=== PATIENT | female | born 1945 | race Caucasian/White ===

== ENCOUNTER 2016-10-29 02:41 | Inpatient (IN) | payer MEDICARE, OTHER ==
[~2016-10-29] VITALS: Ht 157.5 cm; Wt 56.8 kg
[2016-10-29] VITALS (7 sets, daily range): BP systolic 109–127; BP diastolic 59–78
[~2016-10-29 02:41] MED LIST: CITA20TA4; DESL5TAB5; MMT17NA; POTA99TA7
[2016-10-29] MEDS ORDERED: FOLI1TAB24 PO (02:48)
[2016-10-29] MEDS ORDERED: NITR100C10 PO (02:48)
[2016-10-29] MEDS ORDERED: WARF-47 PO (02:48)
[2016-10-29] MEDS ORDERED: PARO10TA3 PO (02:48)
[2016-10-29] MEDS ORDERED: SIMV20TA3 PO (02:48)
[2016-10-29] MEDS ORDERED: LISI10TA2 PO (02:48)
[2016-10-29] MEDS ORDERED: POTA20TA8 PO (02:48)
[2016-10-29] MEDS ORDERED: AMLO10TA2 PO (02:48)
[2016-10-29] MEDS ORDERED: CLOP75TA28 PO (02:48)
[2016-10-29] MEDS ORDERED: METO-352 PO (02:48)
[2016-10-29] MEDS ORDERED: MONT10TA24 PO (02:48)
[2016-10-29] MEDS ORDERED: RT-ALBUTEROL/IPRATROPIUM 3 ML (DUONEB) VIAL INH ONE (03:00)
[2016-10-29 03:01] LABS: BASOPHILS % (AUTO) 0 % (0-10); EOSINOPHILS # (AUTO) 0.3 10^3/uL (0.0-0.3); EOSINOPHILS % (AUTO) 3 % (0-10); LYMPHOCYTES # (AUTO) 1.3 X 10^3 (1.0-4.0); LYMPHOCYTES % (AUTO) 11 % (12-44); MEAN CORPUSCULAR HEMOGLOBIN 32 PG (25-34); MEAN CORPUSCULAR HGB CONC 34 G/DL (32-36); MEAN CORPUSCULAR VOLUME 95 FL (80-99); MEAN PLATELET VOLUME 10.9 FL (7.4-10.4); MONOCYTES # (AUTO) 0.5 X 10^3 (0.0-1.0); MONOCYTES % (AUTO) 5 % (0-12); NEUTROPHILS # (AUTO) 9.9 X 10^3 (1.8-7.8); NEUTROPHILS % (AUTO) 82 % (42-75); PLATELET COUNT 176 10^3/uL (130-400); RED BLOOD COUNT 4.77 10^6/uL (4.35-5.85); RED CELL DISTRIBUTION WIDTH 13.1 % (10.0-14.5); WHITE BLOOD COUNT 12.1 10^3/uL (4.3-11.0)
--- NOTE | 2016-10-29 03:01 | ED Respiratory ---
General Chief Complaint: Respiratory Problems Stated Complaint: SOA Nursing Triage Note: c/o increased SOA since 1800 on 10/28 Source: patient, EMS History of Present Illness Time seen by provider: 02:42 Initial Comments PT ARRIVES VIA EMS FROM HOME C/O SHORTNESS OF BREATH SINCE 1700 OR 1800 THIS EVENING HAS HAD FEVER OF 99 WITH SWEATS NO CHEST PAIN NO SWELLING PT HAS HAD A NON-PRODUCTIVE COUGH FOR 2-3 MONTHS PT HAS COPD, AND CONTINUES TO SMOKE 1 PPD, BUT DOES NOT HAVE HOME O2, INHALERS OR NEBULIZER DUO NEB IS IN PROGRESS BY EMS--PT STATES IT HAS HELPED HER BREATHING. O2 SAT 96% ON ROOM AIR FOR EMS PT STATES SHE HAS ALSO BEEN DX WITH UTI AND WAS STARTED ON MACROBID TODAY PCP: [facility] Allergies and Home Medications Allergies Coded Allergies: aspirin (Verified Allergy, Unknown, 09/09/05) codeine (Verified Allergy, Unknown, NO ALLERGY TO MORPHINE, 11/24/08) penicillin G (Verified Allergy, Unknown, 09/09/05) Uncoded Allergies: METALS (Allergy, Mild, RASHES, 05/22/06) Home Medications Amlodipine Besylate 10 Mg Tablet, #90 (Reported) Clopidogrel Bisulfate 75 Mg Tablet, #90 (Reported) Folic Acid 1 Mg Tablet, #30 (Reported) Lisinopril 10 Mg Tablet, #90 (Reported) Metoprolol Succinate 50 Mg Tab.er.24h, #90 (Reported) Montelukast Sodium 10 Mg Tablet, #30 (Reported) Nitrofurantoin Monohyd/M-Cryst 100 Mg Capsule, #14 (Reported) Paroxetine HCl 10 Mg Tablet, #90 (Reported) Potassium Chloride 20 Meq Tab.er.prt, #30 (Reported) Simvastatin 20 Mg Tablet, #180 (Reported) Warfarin Sodium 2 Mg Tablet, #30 (Reported) Constitutional: see HPI, diaphoresis, fever EENTM: nose congestion Respiratory: see HPI, cough, dyspnea on exertion, short of breath, wheezing Cardiovascular: no symptoms reported, No chest pain, No edema, No palpitations , No syncope, No vascular heart diseas Gastrointestinal: no symptoms reported, other (PT WITH PERMANENT COLOSTOMY) Genitourinary: no symptoms reported Musculoskeletal: no symptoms reported (PT HAS HAD RIGHT AKA) Skin: no symptoms reported Psychiatric/Neurological: No Symptoms Reported Hematologic/Lymphatic: No Symptoms Reported Immunological/Allergic: no symptoms reported Past Jnmuyig-Osrpfi-Lyvort Hx Patient Social History Alcohol Use: Denies Use Recreational Drug Use: No Smoking Status: Current Everyday Smoker (1 PPD) Type Used: Cigarettes Recent Foreign Travel: No Contact w/Someone Who Travel: No Recent Infectious Disease Expo: No Recent Hopitalizations: No Surgeries HX Surgeries: Yes (PT HAS HAD 4-5 ABDOMINAL SURGERIES RELATED TO PERFORATED COLON AND COLOSTOMY; MULTIPLE REVASCULARIZATION PROCEDURES ON RIGHT LEG--BYPASS ATTEMPTS, THROMBECTOMIES, AND NOW WITH RIGHT AKA. ) Surgeries: Abdominal, Appendectomy, Bowel Surgery, Vascular Surgery Respiratory Hx Respiratory Disorders: Yes Respiratory Disorders: Chronic Bronchitis, COPD Cardiovascular Hx Cardiac Disorders: Yes (SEVERE PVD--RIGHT AKA) Cardiac Disorders: High Cholesterol, Hypertension, Peripheral Vascular Neurological Hx Neurological Disorders: No Reproductive System Hx Reproductive Disorders: Yes (CERVICAL CANCER) Genitourinary Hx Genitourinary Disorders: Yes Genitourinary Disorders: Bladder Infection Gastrointestinal Hx Gastrointestinal Disorders: Yes (MULTIPLE SURGERIES FOR PERF. COLON AND COLOSTOMY) Musculoskeletal Hx Musculoskeletal Disorders: Yes (RIGHT AKA FOR SEVERE PVD) Musculoskeletal Disorders: Amputee Endocrine Hx Endocrine Disorders: No HEENT HX ENT Disorders: No Cancer Hx Cancer: Yes (CERVICAL CANCER 2003--S/P RADIATION IMPLANTS, CHEMO AND RADIATION) Cancer: Cervical Psychosocial Hx Psychiatric Problems: Yes Behavioral Health Disorders: Depression Integumentary HX Skin/Integumentary Disorder: No Blood Transfusions Hx Blood Disorders: No Physical Exam Vital Signs Vital Sign - Last 12Hours 10/29/16 02:43 Temp 98.0 Pulse 69 Resp 18 B/P (MAP) 136/61 Pulse Ox 95 O2 Delivery Room Air O2 Flow Rate 2.00 Capillary Refill : Less Than 3 Seconds General Appearance: WD/WN, no apparent distress, other (TALKS IN FULL SENTENCES ) HEENT: PERRL/EOMI Neck: normal inspection Respiratory: no respiratory distress, no accessory muscle use, rhonchi ( DIFFUSE RHONCHI BILATERALLY) Cardiovascular: regular rate, rhythm, no edema Gastrointestinal: non tender, soft, other (COLOSTOMY IN LEFT ABDOMEN) Extremities: no pedal edema, other (RIGHT AKA) Neurologic/Psychiatric: parts expediter II-XII nml as tested, no motor/sensory deficits, alert, normal mood/affect, oriented x 3 Skin: normal color, diaphoresis Focused Exam Lactic Acid Level Laboratory Tests Test 10/29/16 03:17 Lactic Acid Level 1.74 MMOL/L (0.50-2.00) Progress/Results/Core Measures Results/Orders Lab Results Laboratory Tests Test 10/29/16 02:47 10/29/16 03:17 Range/Units White Blood Count 12.1 H 4.3-11.0 10^3/uL Red Blood Count 4.77 4.35-5.85 10^6/uL Hemoglobin 15.4 11.5-16.0 G/DL Hematocrit 45 35-52 % Mean Corpuscular Volume 95 80-99 FL Mean Corpuscular Hemoglobin 32 25-34 PG Mean Corpuscular Hemoglobin Concent 34 32-36 G/DL Red Cell Distribution Width 13.1 10.0-14.5 % Platelet Count 176 130-400 10^3/uL Mean Platelet Volume 10.9 H 7.4-10.4 FL Neutrophils (%) (Auto) 82 H 42-75 % Lymphocytes (%) (Auto) 11 L 12-44 % Monocytes (%) (Auto) 5 0-12 % Eosinophils (%) (Auto) 3 0-10 % Basophils (%) (Auto) 0 0-10 % Neutrophils # (Auto) 9.9 H 1.8-7.8 X 10^3 Lymphocytes # (Auto) 1.3 1.0-4.0 X 10^3 Monocytes # (Auto) 0.5 0.0-1.0 X 10^3 Eosinophils # (Auto) 0.3 0.0-0.3 10^3/uL Basophils # (Auto) 0.0 0.0-0.1 10^3/uL Prothrombin Time 24.1 H 12.2-14.7 SEC INR Comment 2.2 H 0.8-1.4 Activated Partial Thromboplast Time 39 H 24-35 SEC Sodium Level 144 135-145 MMOL/L Potassium Level 3.4 L 3.6-5.0 MMOL/L Chloride Level 105 98-107 MMOL/L Carbon Dioxide Level 27 21-32 MMOL/L Anion Gap 12 5-14 MMOL/L Blood Urea Nitrogen 9 7-18 MG/DL Creatinine 1.02 0.60-1.30 MG/DL Estimat Glomerular Filtration Rate 54 BUN/Creatinine Ratio 9 0-20 Glucose Level 97 70-105 MG/DL Calcium Level 10.0 8.5-10.1 MG/DL Magnesium Level 1.5 L 1.8-2.4 MG/DL Total Bilirubin 0.9 0.1-1.0 MG/DL Aspartate Amino Transf (AST/SGOT) 24 5-34 U/L Alanine Aminotransferase (ALT/SGPT) 18 0-55 U/L Alkaline Phosphatase 68 40-136 U/L Total Creatine Kinase 72 29-168 U/L Creatine Kinase MB 1.6 <6.6 NG/ML Troponin I < 0.30 <0.30 NG/ML B-Type Natriuretic Peptide 111.9 H <100.0 PG/ML Total Protein 8.0 6.4-8.2 GM/DL Albumin 4.3 3.2-4.5 GM/DL Lactic Acid Level 1.74 0.50-2.00 MMOL/L My Orders Orders - ROBBIE GUARDADO DO Saline Lock/Iv-Start (10/29/16 02:54) Ekg Tracing (10/29/16 02:54) O2 (10/29/16 02:54) Monitor-Rhythm Ecg Trace Only (10/29/16 02:54) BNP (10/29/16 02:54) Cbc With Automated Diff (10/29/16 02:54) Comprehensive Metabolic Panel (10/29/16 02:54) Creatine Kinase (10/29/16 02:54) Creatine Kinase Mb (10/29/16 02:54) Magnesium (10/29/16 02:54) Protime With Inr (10/29/16 02:54) Partial Thromboplastin Time (10/29/16 02:54) Troponin I (10/29/16 02:54) Ua Culture If Indicated (10/29/16 02:54) Chest 1 View, Ap/Pa Only (10/29/16 02:54) Albuterol/Ipra Inhalation Soln (Duoneb I (10/29/16 03:00) Rt Request For Service (10/29/16 02:54) Svn Sm Volume Nebulizer Rt-Rfs (10/29/16 02:54) Lactic Acid Analyzer (10/29/16 03:14) Blood Culture (10/29/16 03:14) Ceftriaxone Injection (Rocephin Injectio (10/29/16 03:15) Methylprednisolone Sod Succ (Solu-Medrol (10/29/16 03:15) Medications Given in ED Current Medications Medications Dose Ordered Sig/Christiano Route Start Time Stop Time Status Last Admin Dose Admin Albuterol/ Ipratropium 3 ml ONCE ONCE INH 10/29/16 03:00 10/29/16 03:01 DC 10/29/16 02:58 3 ML Ceftriaxone Sodium 1000 mg/ Sodium Chloride 50 ml @ 100 mls/hr ONCE ONCE IV 10/29/16 03:15 10/29/16 03:44 DC 10/29/16 03:40 100 MLS/HR Methylprednisolone Sodium Succinate 125 mg ONCE ONCE IVP 10/29/16 03:15 10/29/16 03:16 DC 10/29/16 03:40 125 MG Vital Signs/I&O Vital Sign - Last 12Hours 10/29/16 10/29/16 10/29/16 02:43 02:43 02:59 Temp 98.0 Pulse 69 Resp 18 B/P (MAP) 136/61 Pulse Ox 95 94 O2 Delivery Room Air Nasal Cannula Nasal Cannula O2 Flow Rate 2.00 2.00 Blood Pressure Mean: 86 Progress Note : Progress Note O2 SATS 88-91% ON ROOM AIR AFTER EMS DUO NEB WAS COMPLETE--STARTED ON O2 AT 2L/ NC AND REPEAT NEB TREATMENT DONE. O2 SATS REMAINED IN MID 90'S FOR REMAINDER OF ER STAY UNEVENTFUL ER STAY ECG Initial ECG Impression Time: 02:50 Initial ECG Rate: 70 Initial ECG Rhythm: Normal Sinus Initial ECG Comparisson: Changed (AXIS CHANGE) Diagnostic Imaging Comments CXR--RLL INFILTRATE, PENDING RADIOLOGIST REVIEW Reviewed: Reviewed by Me Departure Communication Progress Notes [id number]--SPOKE WITH DR. SALAZAR, COVERING FOR [facility] [place] ACCEPTS PT FOR ADMIT Impression Impression: Primary Impression: Pneumonia Additional Impressions: Hypoxia COPD (chronic obstructive pulmonary disease) Disposition: ADMITTED INPATIENT Condition: Improved Decision to Admit Reason: Admit from ER (General) Decision to Admit/Date: Oct 29, 2016 Time/Decision to Admit Time: 03:20 ROBBIE GUARDADO DO Oct 29, 2016 03:01
[2016-10-29 03:06] LABS: INR 2.2 (0.8-1.4); PROTHROMBIN TIME PATIENT 24.1 SEC (12.2-14.7)
[2016-10-29] MEDS ORDERED: methylPREDNISolone 125 MG (Solu-MEDROL) VIAL IVP ONE (03:15)
[2016-10-29] MEDS ORDERED: cefTRIAXone INJECTION 1,000 MG in NS (IVPB) 50 ML IV ONE (03:15)
[2016-10-29 03:24] LABS: ALANINE AMINOTRANSFERASE 18 U/L (0-55); ALBUMIN 4.3 GM/DL (3.2-4.5); ANION GAP 12 MMOL/L (5-14); ASPARTATE AMINO TRANSFERASE 24 U/L (5-34); BILIRUBIN,TOTAL 0.9 MG/DL (0.1-1.0); BLOOD UREA NITROGEN 9 MG/DL (7-18); BUN/CREATININE RATIO 9 (0-20); CARBON DIOXIDE 27 MMOL/L (21-32); CHLORIDE 105 MMOL/L (98-107); CREATINE KINASE 72 U/L (29-168); CREATININE SERUM 1.02 MG/DL (0.60-1.30); GFR ESTIMATED 54; GLUCOSE 97 MG/DL (70-105); HEMOLYSIS 25 (-100-29); ICTERUS 0.5 (-100-1.9); LIPEMIA -2 (-100-49); MAGNESIUM 1.5 MG/DL (1.8-2.4); POTASSIUM 3.4 MMOL/L (3.6-5.0); SODIUM 144 MMOL/L (135-145)
[2016-10-29 03:31] LABS: TROPONIN I < 0.30 NG/ML (<0.30)
[2016-10-29 04:00] LABS: BILIRUBIN,URINE NEGATIVE (NEGATIVE); KETONES,URINE NEGATIVE (NEGATIVE); LEUKOCYTE ESTERASE ,URINE 1+ (NEGATIVE); NITRITE,URINE NEGATIVE (NEGATIVE); PH,URINE 6 (5-9); PROTEIN,URINE 2+ (NEGATIVE); UROBILINOGEN,URINE NORMAL (NORMAL)
[2016-10-29 04:14] LABS: SQUAMOUS EPITHELIAL CELL,UR 0-2 /HPF
[2016-10-29] MEDS ORDERED: AZITHROMYCIN INJECTION 500 MG in NS (IVPB) 250 ML IV ONE (04:21)
[2016-10-29] MEDS ORDERED: ACETAMINOPHEN 500 MG TAB (TYLENOL) PO PRN (04:30)
[2016-10-29] MEDS: MAGNESIUM 1 GM/D5W 100 ML IVPB IV SCH ×2 (05:01→05:02)
[2016-10-29 06:54] LABS: BASOPHILS % (AUTO) 0 % (0-10); EOSINOPHILS # (AUTO) 0.1 10^3/uL (0.0-0.3); EOSINOPHILS % (AUTO) 1 % (0-10); LYMPHOCYTES # (AUTO) 0.6 X 10^3 (1.0-4.0); LYMPHOCYTES % (AUTO) 4 % (12-44); MEAN CORPUSCULAR HEMOGLOBIN 32 PG (25-34); MEAN CORPUSCULAR HGB CONC 34 G/DL (32-36); MEAN CORPUSCULAR VOLUME 95 FL (80-99); MEAN PLATELET VOLUME 10.7 FL (7.4-10.4); MONOCYTES # (AUTO) 0.5 X 10^3 (0.0-1.0); MONOCYTES % (AUTO) 4 % (0-12); NEUTROPHILS # (AUTO) 12.6 X 10^3 (1.8-7.8); NEUTROPHILS % (AUTO) 92 % (42-75); PLATELET COUNT 165 10^3/uL (130-400); RED BLOOD COUNT 4.44 10^6/uL (4.35-5.85); RED CELL DISTRIBUTION WIDTH 12.9 % (10.0-14.5); WHITE BLOOD COUNT 13.8 10^3/uL (4.3-11.0)
[2016-10-29] MEDS: D5 1/2 NS 1000 ML IV SOLUTION 1,000 ML IV SCH ×3 (06:58→17:44)
[2016-10-29] MEDS ORDERED: RT-ALBUTEROL SULF 2.5 MG/3 ML PRE-MIX VIAL IH PRN (07:00)
[2016-10-29 07:09] LABS: ALBUMIN 3.8 GM/DL (3.2-4.5); BILIRUBIN,TOTAL 0.7 MG/DL (0.1-1.0); CALCIUM 9.4 MG/DL (8.5-10.1); CREATININE SERUM 0.95 MG/DL (0.60-1.30); ICTERUS 0.4 (-100-1.9); MAGNESIUM 2.4 MG/DL (1.8-2.4); POTASSIUM 3.2 MMOL/L (3.6-5.0); TOTAL PROTEIN 7.1 GM/DL (6.4-8.2)
--- NOTE | 2016-10-29 07:14 | History & Physicial (CHS) ---
HPI History of Present Illness: 71-year-old female presents to [facility] emergency department during the late evening of October 28, 2016 via EMS with shortness of breath. Patient admits the shortness of breath started about 5 or 6 p.m. on October 28. She has had fevers off and on with sweats. She apparently has had a nonproductive cough over the past several weeks. She does have COPD and does admit to smoking 1 pack per day. She denies any chest pain or swelling of the lower extremities. She informs me she has a resistant urinary tract infection bacteria and she was started on Macrobid today. She does seek care at [facility] and does see Heriberto Perez. Source: patient Exam Limitations: no limitations Date seen by provider: Oct 29, 2016 Time Seen by Provider: 06:40 Attending Physician Monika Salazar MD PCP Gemini Mclean DO Consult Date of Admission Oct 29, 2016 at 03:20 Home Medications Home Medications Reviewed patient Home Medication Reconciliation Form Allergies Coded Allergies: aspirin (Verified Allergy, Unknown, 09/09/05) codeine (Verified Allergy, Unknown, NO ALLERGY TO MORPHINE, 11/24/08) penicillin G (Verified Allergy, Unknown, 09/09/05) Uncoded Allergies: METALS (Allergy, Mild, RASHES, 05/22/06) [id number]-Bytniy Hx Patient Social History Employed/Student: retired Alcohol Use: Denies Use Recreational Drug Use: No Smoking Status: Current Everyday Smoker Type Used: Cigarettes Recent Foreign Travel: No Contact w/other who traveled: No Recent Hopitalizations: No Recent Infectious Disease Expo: No Physical Abuse Screen: No Sexual Abuse: No Immunizations Up To Date Date of Pneumonia Vaccine: Feb 06, 2012 Review of Systems (CHC) Date Seen by Provider: Oct 29, 2016 Time Seen by Provider: 06:40 Constitutional: see HPI Reviewed Test Results Reviewed Test Results Lab Laboratory Tests Test 10/29/16 02:47 10/29/16 03:17 10/29/16 03:40 10/29/16 06:45 Range/Units White Blood Count 12.1 H 13.8 H 4.3-11.0 10^3/uL Red Blood Count 4.77 4.44 4.35-5.85 10^6/uL Hemoglobin 15.4 14.3 11.5-16.0 G/DL Hematocrit 45 42 35-52 % Mean Corpuscular Volume 95 95 80-99 FL Mean Corpuscular Hemoglobin 32 32 25-34 PG Mean Corpuscular Hemoglobin Concent 34 34 32-36 G/DL Red Cell Distribution Width 13.1 12.9 10.0-14.5 % Platelet Count 176 165 130-400 10^3/uL Mean Platelet Volume 10.9 H 10.7 H 7.4-10.4 FL Neutrophils (%) (Auto) 82 H 92 H 42-75 % Lymphocytes (%) (Auto) 11 L 4 L 12-44 % Monocytes (%) (Auto) 5 4 0-12 % Eosinophils (%) (Auto) 3 1 0-10 % Basophils (%) (Auto) 0 0 0-10 % Neutrophils # (Auto) 9.9 H 12.6 H 1.8-7.8 X 10^3 Lymphocytes # (Auto) 1.3 0.6 L 1.0-4.0 X 10^3 Monocytes # (Auto) 0.5 0.5 0.0-1.0 X 10^3 Eosinophils # (Auto) 0.3 0.1 0.0-0.3 10^3/uL Basophils # (Auto) 0.0 0.0 0.0-0.1 10^3/uL Prothrombin Time 24.1 H 12.2-14.7 SEC INR Comment 2.2 H 0.8-1.4 Activated Partial Thromboplast Time 39 H 24-35 SEC Sodium Level 144 140 135-145 MMOL/L Potassium Level 3.4 L 3.2 L 3.6-5.0 MMOL/L Chloride Level 105 106 98-107 MMOL/L Carbon Dioxide Level 27 22 21-32 MMOL/L Anion Gap 12 12 5-14 MMOL/L Blood Urea Nitrogen 9 8 7-18 MG/DL Creatinine 1.02 0.95 0.60-1.30 MG/DL Estimat Glomerular Filtration Rate 54 58 BUN/Creatinine Ratio 9 8 0-20 Glucose Level 97 170 H 70-105 MG/DL Calcium Level 10.0 9.4 8.5-10.1 MG/DL Magnesium Level 1.5 L 2.4 1.8-2.4 MG/DL Total Bilirubin 0.9 0.7 0.1-1.0 MG/DL Aspartate Amino Transf (AST/SGOT) 24 19 5-34 U/L Alanine Aminotransferase (ALT/SGPT) 18 16 0-55 U/L Alkaline Phosphatase 68 60 40-136 U/L Total Creatine Kinase 72 29-168 U/L Creatine Kinase MB 1.6 <6.6 NG/ML Troponin I < 0.30 <0.30 NG/ML B-Type Natriuretic Peptide 111.9 H <100.0 PG/ML Total Protein 8.0 7.1 6.4-8.2 GM/DL Albumin 4.3 3.8 3.2-4.5 GM/DL Lactic Acid Level 1.74 0.50-2.00 MMOL/L Urine Color YELLOW Urine Clarity CLEAR Urine pH 6 5-9 Urine Specific [place] 1.010 L 1.016-1.022 Urine Protein 2+ H NEGATIVE Urine Glucose (UA) NEGATIVE NEGATIVE Urine Ketones NEGATIVE NEGATIVE Urine Nitrite NEGATIVE NEGATIVE Urine Bilirubin NEGATIVE NEGATIVE Urine Urobilinogen NORMAL NORMAL MG/DL Urine Leukocyte Esterase 1+ H NEGATIVE Urine RBC (Auto) 5+ H NEGATIVE Urine RBC 5-10 H /HPF Urine WBC 2-5 /HPF Urine Squamous Epithelial Cells 0-2 /HPF Urine Crystals NONE /LPF Urine Bacteria NEGATIVE /HPF Urine Casts NONE /LPF Urine Mucus NEGATIVE /LPF Urine Culture Indicated NO Physical Exam-(CHC) Physical Exam Vital Signs VS - Last 72 Hours, by Label 10/29/16 10/29/16 10/29/16 10/29/16 02:43 02:43 02:59 04:01 Temp 98.0 98.4 Pulse 69 73 Resp 18 15 B/P (MAP) 136/61 Pulse Ox 95 94 96 O2 Delivery Room Air Nasal Cannula Nasal Cannula Nasal Cannula O2 Flow Rate 2.00 2.00 2.00 10/29/16 10/29/16 10/29/16 04:14 04:14 07:00 Temp 99.4 Pulse 65 Resp 20 B/P (MAP) 127/78 Pulse Ox 95 95 O2 Delivery Nasal Cannula Nasal Cannula O2 Flow Rate 2.00 2.00 2.00 Capillary Refill : Less Than 3 Seconds General Appearance: mild distress (In the emergency department) Eyes: Bilateral Eye Normal Inspection HEENT: normal ENT inspection Neck: supple Respiratory: decreased breath sounds Cardiovascular: regular rate, rhythm Gastrointestinal: soft (With noted colostomy bag in place) Rectal: deferred Skin: normal color, warm/dry Assessment/Plan Assessment/Plan Admission Dx 1. Respiratory distress most likely secondary to right lower lobe infiltrate 2. Hypoxemia secondary to number 1 3. COPD 4. Hypomagnesemia 5. Colostomy due to complications of treatment cervical cancer Plan 1. Respiratory distress most likely secondary to right lower lobe infiltrate -Pending official x-ray report -Patient initiated on Zithromax intravenous as well as ceftriaxone 2. Hypoxemia secondary to number 1 -Oxygen support as needed by nasal cannula 3. COPD -Patient initiated on IV Solu-Medrol 125 mg every 6 hours in ED 4. Hypomagnesemia -Replacement 5. Colostomy due to complications of treatment cervical cancer Diagnosis/Problems: Clinical Quality Measures DVT/VTE Risk/Contraindication: Risk Factor Score Per Nursin RFS Level Per Nursing on Admit: 4+=Very High MONIKA SALAZAR MD Oct 29, 2016 07:14
--- NOTE | 2016-10-29 07:20 | Diagnostic Imaging Report ---
INDICATION: Wheezing Study compared to 08/15/2007 FINDINGS: Chronic air trapping and hyperexpansion of the lungs. New opacity in the right lung base medially is suspect for pneumonia. The upper lobes clear. IMPRESSION: Chronic air trapping and chronic upper limits heart size stable. However new medial right basilar opacity is suspicious for a developing pneumonia. Dictated by: Dictated on workstation # [id number]
[2016-10-29] MEDS ORDERED: KCL 20 MEQ TAB (K-DUR) PO NR (07:30)
[2016-10-29 07:33] LABS: BAND NEUTROPHILS 4 %; BASOPHILS % (MANUAL) 0 %; EOSINOPHILS % (MANUAL) 1 %; LYMPHOCYTES % (MANUAL) 6 %; NEUTROPHILS % (MANUAL) 87 %
[2016-10-29] MEDS: NICOTINE 14 MG (NICODERM) PATCH TD SCH (09:49)
[2016-10-29] MEDS: methylPREDNISolone 125 MG (Solu-MEDROL) VIAL IV SCH ×3 (09:49→20:29)
[2016-10-30] VITALS (7 sets, daily range): BP systolic 115–147; BP diastolic 65–72
[2016-10-30] MEDS: cefTRIAXone INJECTION 1,000 MG in NS (IVPB) 50 ML IV SCH (03:35)
[2016-10-30] MEDS: D5 1/2 NS 1000 ML IV SOLUTION 1,000 ML IV SCH ×2 (05:23→16:48)
[2016-10-30 06:27] LABS: BASOPHILS % (AUTO) 0 % (0-10); EOSINOPHILS % (AUTO) 0 % (0-10); LYMPHOCYTES # (AUTO) 0.9 X 10^3 (1.0-4.0); LYMPHOCYTES % (AUTO) 5 % (12-44); MEAN CORPUSCULAR HEMOGLOBIN 32 PG (25-34); MEAN CORPUSCULAR HGB CONC 33 G/DL (32-36); MEAN CORPUSCULAR VOLUME 96 FL (80-99); MONOCYTES # (AUTO) 0.4 X 10^3 (0.0-1.0); MONOCYTES % (AUTO) 2 % (0-12); NEUTROPHILS # (AUTO) 16.8 X 10^3 (1.8-7.8); NEUTROPHILS % (AUTO) 92 % (42-75); PLATELET COUNT 168 10^3/uL (130-400); RED BLOOD COUNT 3.87 10^6/uL (4.35-5.85); RED CELL DISTRIBUTION WIDTH 13.1 % (10.0-14.5); WHITE BLOOD COUNT 18.2 10^3/uL (4.3-11.0)
[2016-10-30 06:41] LABS: BAND NEUTROPHILS 3 %; BASOPHILS % (MANUAL) 0 %; EOSINOPHILS % (MANUAL) 0 %; LYMPHOCYTES % (MANUAL) 6 %; NEUTROPHILS % (MANUAL) 87 %; REACTIVE LYMPHOCYTES 2 %
[2016-10-30 06:52] LABS: ANION GAP 8 MMOL/L (5-14); BLOOD UREA NITROGEN 10 MG/DL (7-18); BUN/CREATININE RATIO 12 (0-20); CALCIUM 9.2 MG/DL (8.5-10.1); CARBON DIOXIDE 25 MMOL/L (21-32); CHLORIDE 109 MMOL/L (98-107); CREATININE SERUM 0.85 MG/DL (0.60-1.30); GFR ESTIMATED > 60; GLUCOSE 175 MG/DL (70-105); HEMOLYSIS 8 (-100-29); ICTERUS 0.1 (-100-1.9); LIPEMIA 4 (-100-49); POTASSIUM 3.2 MMOL/L (3.6-5.0); SODIUM 142 MMOL/L (135-145)
[2016-10-30] MEDS ORDERED: WARF1TAB6 PO (07:43)
--- NOTE | 2016-10-30 07:57 | Progress Note (SOAP) ---
Subjective Subjective/Events-last exam Patient was sleeping upon entering room this morning. After awakening she stated she felt fine. She has been still coughing. The cough appears to be breaking up. Review of Systems Date Seen by Provider: Oct 30, 2016 Time Seen by Provider: 07:30 Objective Exam Last Set of Vital Signs Vital Signs Date Time Temp Pulse Resp B/P (MAP) Pulse Ox O2 Delivery O2 Flow Rate FiO2 10/30/16 06:42 Nasal Cannula 2.00 10/30/16 04:00 96.9 58 18 115/65 95 Capillary Refill : Less Than 3 Seconds I&O Bad tableGeneral: No Acute Distress Neck: Supple Lungs: Other (Patient has distant lung sounds. She does have rhonchi as well) Heart: Regular Rate Abdomen: Soft Skin: No Rashes Results/Procedures Lab Laboratory Tests 10/30/16 06:07: White Blood Count 18.2H, Red Blood Count 3.87L, Hemoglobin 12.4, Hematocrit 37, Mean Corpuscular Volume 96, Mean Corpuscular Hemoglobin 32, Mean Corpuscular Hemoglobin Concent 33, Red Cell Distribution Width 13.1, Platelet Count 168, Mean Platelet Volume 11.0H, Neutrophils (%) (Auto) 92H, Lymphocytes (%) (Auto) 5L, Monocytes (%) (Auto) 2, Eosinophils (%) (Auto) 0, Basophils (%) (Auto) 0, Neutrophils # (Auto) 16.8H, Lymphocytes # (Auto) 0.9L, Monocytes # (Auto) 0.4, Eosinophils # (Auto) 0.0, Basophils # (Auto) 0.0, Neutrophils % (Manual) 87, Lymphocytes % (Manual) 6, Monocytes % (Manual) 2, Eosinophils % (Manual) 0, Basophils % (Manual) 0, Band Neutrophils 3, Reactive Lymphocytes 2, Toxic Granulation 1+, Blood Morphology Comment NORMAL, Sodium Level 142, Potassium Level 3.2L, Chloride Level 109H, Carbon Dioxide Level 25, Anion Gap 8, Blood Urea Nitrogen 10, Creatinine 0.85, Estimat Glomerular Filtration Rate > 60, BUN/ Creatinine Ratio 12, Glucose Level 175H, Calcium Level 9.2 Microbiology 10/29/16 Blood Culture - Preliminary, Resulted No growth Assessment/Plan Assessment/Plan Admission Dx 1. Respiratory distress most likely secondary to right lower lobe infiltrate 2. Hypoxemia secondary to number 1 3. COPD 4. Hypomagnesemia 5. Colostomy due to complications of treatment cervical cancer Plan 1. Respiratory distress most likely secondary to right lower lobe infiltrate -Pending official x-ray report -Patient initiated on Zithromax intravenous as well as ceftriaxone 10/30 chest x-ray officially read out as right basilar pneumonia -Day number 2 of Zithromax and ceftriaxone 2. Hypoxemia secondary to number 1 -Oxygen support as needed by nasal cannula 3. COPD -Patient initiated on IV Solu-Medrol 125 mg every 6 hours in ED 10/30 change Solu-Medrol to 80 mg every 6 hours 4. Hypomagnesemia -Replacement 5. Colostomy due to complications of treatment cervical cancer Diagnosis/Problems: Clinical Quality Measures DVT/VTE Risk/Contraindication: Risk Factor Score Per Nursin RFS Level Per Nursing on Admit: 4+=Very High MONIKA SALAZAR MD Oct 30, 2016 07:57
[2016-10-30] MEDS ORDERED: DOCUSATE SODIUM 100 MG (COLACE) CAP PO PRN (08:00)
[2016-10-30] MEDS ORDERED: SIMvastatin 20 MG (ZOCOR) TAB PO SCH (09:00)
[2016-10-30] MEDS ORDERED: PARoxetine 10 MG (PAXIL) TAB PO SCH (09:00)
[2016-10-30] MEDS: NICOTINE PATCH REMOVAL TP SCH (09:25)
[2016-10-30] MEDS: AZITHROMYCIN 250 MG TAB (ZITHROMAX) PO SCH (09:26)
[2016-10-30] MEDS: NICOTINE 14 MG (NICODERM) PATCH TD SCH (09:26)
[2016-10-30] MEDS: methylPREDNISolone 40 MG/ML (Solu-MEDROL) VIAL IV SCH ×2 (09:29→20:49)
[2016-10-30] MEDS: SIMvastatin 20 MG (ZOCOR) TAB PO SCH (13:37)
[2016-10-30] MEDS: PARoxetine 10 MG (PAXIL) TAB PO SCH (13:37)
[2016-10-30] MEDS: KCL 20 MEQ TAB (K-DUR) PO SCH (13:37)
[2016-10-30] MEDS: CLOPIDOGREL 75 MG (PLAVIX) TABLET PO SCH (20:49)
[2016-10-30] MEDS: warFARin 1 MG (COUMADIN) TAB PO SCH (20:49)
[2016-10-31] MEDS: cefTRIAXone INJECTION 1,000 MG in NS (IVPB) 50 ML IV SCH (03:06)
[2016-10-31 04:00] VITALS: BP 152/66
[2016-10-31] MEDS: D5 1/2 NS 1000 ML IV SOLUTION 1,000 ML IV SCH ×2 (05:23→18:20)
--- NOTE | 2016-10-31 07:39 | Progress Note (SOAP) ---
Subjective Subjective/Events-last exam Patient reports she is slowly getting better. Her cough is productive of phlegm. She denies any fever. She reports being able to get a deeper breath. Review of Systems Date Seen by Provider: Oct 31, 2016 Time Seen by Provider: 06:40 Objective Exam Last Set of Vital Signs Vital Signs Date Time Temp Pulse Resp B/P (MAP) Pulse Ox O2 Delivery O2 Flow Rate FiO2 10/31/16 07:34 Nasal Cannula 2.00 10/31/16 04:00 96.8 54 16 152/66 94 Capillary Refill : Less Than 3 Seconds I&O Intake and Output 10/31/16 00:00 Intake Total 2360 ml Output Total 1300 ml Balance 1060 ml Intake Oral 1310 ml IV Total 1050 ml Output Urine Total 1300 ml # Voids 5 # Bowel Movements 1 General: No Acute Distress Lungs: Other (Rhonchi scattered throughout) Heart: Regular Rate Abdomen: Soft Results/Procedures Lab Microbiology 10/29/16 Blood Culture - Preliminary, Resulted No growth Assessment/Plan Assessment/Plan Admission Dx 1. Respiratory distress most likely secondary to right lower lobe infiltrate 2. Hypoxemia secondary to number 1 3. COPD 4. Hypomagnesemia 5. Colostomy due to complications of treatment cervical cancer Plan 1. Respiratory distress most likely secondary to right lower lobe infiltrate -Pending official x-ray report -Patient initiated on Zithromax intravenous as well as ceftriaxone 10/30 chest x-ray officially read out as right basilar pneumonia -Day number 2 of Zithromax and ceftriaxone -10/31 Day number 3 Zithromax by mouth as well as IV ceftriaxone - 2. Hypoxemia secondary to number 1 -Oxygen support as needed by nasal cannula 10/31 weaned off oxygen as saturations improve 3. COPD -Patient initiated on IV Solu-Medrol 125 mg every 6 hours in ED 10/30 change Solu-Medrol to 80 mg every 6 hours 10/31 changed to by mouth prednisone 4. Hypomagnesemia -Replacement 5. Colostomy due to complications of treatment cervical cancer Diagnosis/Problems: Clinical Quality Measures DVT/VTE Risk/Contraindication: Risk Factor Score Per Nursin RFS Level Per Nursing on Admit: 4+=Very High MONIKA SALAZAR MD Oct 31, 2016 07:39
[2016-10-31] MEDS ORDERED: predniSONE 20 MG TAB PO NR (07:45)
[2016-10-31 08:00] VITALS: BP 134/60
[2016-10-31] MEDS: SIMvastatin 20 MG (ZOCOR) TAB PO SCH (08:17)
[2016-10-31] MEDS: KCL 20 MEQ TAB (K-DUR) PO SCH (08:17)
[2016-10-31] MEDS: AZITHROMYCIN 250 MG TAB (ZITHROMAX) PO SCH (08:17)
[2016-10-31] MEDS: PARoxetine 10 MG (PAXIL) TAB PO SCH (08:17)
[2016-10-31] MEDS: NICOTINE 14 MG (NICODERM) PATCH TD SCH (08:17)
[2016-10-31] MEDS: NICOTINE PATCH REMOVAL TP SCH (08:17)
[2016-10-31 12:00] VITALS: BP 153/67
[2016-10-31 15:50] VITALS: BP 147/67
--- OUTSIDE RECORDS SUMMARY | 2016-10-31 16:21 | XMS REPORT ---
Author Author ERIK SAMAYOA Organization [employer] Address Unknown Phone Unavailable Care Team Providers Care Addiction Therapist Name Role Phone ERIK SAMAYOA CP Unavailable Allergies No Known Allergies Problems Problem Type Condition Code Onset Dates Condition Status Problem Unspecified episodic mood disorder 296.90 Active Problem Unspecified site of ankle sprain and strain 845.00 Active Problem Pneumonia, organism unspecified 486 Active Assessment Anticoagulant long-term use Z79.01 Active Problem Edema 782.3 Active Problem Urinary tract infection, site not specified 599.0 Active Problem Actinic keratosis 702.0 Active Problem Lower limb amputation, unspecified level V49.70 Active Problem Insomnia, unspecified 780.52 Active Problem Unspecified vitamin D deficiency 268.9 Active Problem Benign neoplasm of skin, site unspecified 216.9 Active Medications No Known Medications Results No Known Results Summary Purpose [employer] Submission
--- OUTSIDE RECORDS SUMMARY | 2016-10-31 16:21 | XMS REPORT ---
Author Author ERIK SAMAYOA Organization [employer] Address Unknown Phone Unavailable Care Team Providers Care Program Writer Name Role Phone ERIK SAMAYOA CP Unavailable [...]
--- OUTSIDE RECORDS SUMMARY | 2016-10-31 16:21 | XMS REPORT ---
Author Author ERIK SAMAYOA Organization [employer] Address Unknown Phone Unavailable Care Team Providers Care Unindentured Apprentice Name Role Phone ERIK SAMAYOA CP Unavailable Allergies No Known Allergies Problems Problem Type Condition Code Onset Dates Condition Status Problem Unspecified episodic mood disorder 296.90 Active Problem Unspecified site of ankle sprain and strain 845.00 Active Problem Pneumonia, organism unspecified 486 Active Problem Edema 782.3 Active Problem Urinary tract infection, site not specified 599.0 Active Problem Actinic keratosis 702.0 Active Problem Lower limb amputation, unspecified level V49.70 Active Problem Insomnia, unspecified 780.52 Active Problem Unspecified vitamin D deficiency 268.9 Active Problem Benign neoplasm of skin, site unspecified 216.9 Active Medications Medication Code System Code Instructions Start Date End Date Status Dosage Coumadin [facility] [address]-26 1 MG Orally Once a day November 05, 2014 1 tablet Results No Known Results Summary Purpose [employer] Submission
--- OUTSIDE RECORDS SUMMARY | 2016-10-31 16:21 | XMS REPORT ---
Author Author ERIK SAMAYOA Organization [employer] Address Unknown Phone Unavailable Care Team Providers Care Criminal Justice Instructor Name Role Phone ERIK SAMAYOA CP Unavailable [...]
--- OUTSIDE RECORDS SUMMARY | 2016-10-31 16:21 | XMS REPORT ---
Author Author REIK SAMAYOA Organization [employer] Address Unknown Phone Unavailable Care Team Providers Care Stucco Worker Name Role Phone ERIK SAMAYOA CP Unavailable [...]
--- OUTSIDE RECORDS SUMMARY | 2016-10-31 16:21 | XMS REPORT ---
Author Author ERIK SAMAYOA Organization [employer] Address Unknown Phone Unavailable Care Team Providers Care Category Specialist Name Role Phone ERIK SAMAYOA CP Unavailable [...]
--- OUTSIDE RECORDS SUMMARY | 2016-10-31 16:21 | XMS REPORT ---
Author Author ERIK SAMAYOA Organization [employer] Address Unknown Phone Unavailable Care Team Providers Care Railroad Auditor Name Role Phone ERIK SAMAYOA CP Unavailable [...] unspecified 216.9 Active Medications No Known Medications Procedures Procedure Coding System Code Date PROTHROMBIN TIME CPT-4 19198 Mar 27, 2015 Results Name Result Date Reference Range Unit Abnormality Flag INR (IN HOUSE) Summary Purpose [employer] Submission
--- OUTSIDE RECORDS SUMMARY | 2016-10-31 16:21 | XMS REPORT ---
Author Author ERIK SAMAYOA Organization [employer] Address Unknown Phone Unavailable Care Team Providers Care Engine Hostler Name Role Phone ERIK SAMAYOA CP Unavailable [...] Coding System Code Date PROTHROMBIN TIME CPT-4 63651 Jun 01, 2015 Results Name Result Date Reference Range Unit Abnormality Flag INR (IN HOUSE) ----Exp date 20150601 ----INR 2.8 20150601 1.10 - 3.30 ----PREVIOUS INR 3.7 20150601 ----CURRENT COUMADIN DOSE 1mg-M,W,F,S 2mg-T, Th, Sat 20150601 ----Lot # [id number] Summary Purpose [employer] Submission
--- OUTSIDE RECORDS SUMMARY | 2016-10-31 16:21 | XMS REPORT ---
Author Author ERIK SAMAYOA Organization [employer] Address Unknown Phone Unavailable Care Team Providers Care Retail Commission Sales Associate Name Role Phone ERIK SAMAYOA CP Unavailable Allergies No Known Allergies Problems Problem Type Condition Code Onset Dates Condition Status Problem Pneumonia, organism unspecified 486 Active Problem Insomnia, unspecified 780.52 Active Problem Unspecified site of ankle sprain and strain 845.00 Active Problem Unspecified episodic mood disorder 296.90 Active Problem Actinic keratosis 702.0 Active Problem Edema 782.3 Active Problem Anticoagulant long-term use Z79.01 Active Problem Benign neoplasm of skin, site unspecified 216.9 Active Problem Lower limb amputation, unspecified level V49.70 Active Problem Urinary tract infection, site not specified 599.0 Active Problem Unspecified vitamin D deficiency 268.9 Active Medications Medication Code System Code Instructions Start Date End Date Status Dosage Coumadin [facility] [address]-09 2 mg Orally Once a day 1 tablet Results No Known Results Summary Purpose [employer] Submission
--- OUTSIDE RECORDS SUMMARY | 2016-10-31 16:21 | XMS REPORT ---
Author Author ERIK SAMAYOA [facility] Address [address] [place] [address] Care Team Providers Care Laborer Chemical Processing Name Role Phone DANITA ERIK Unavailable PROBLEMS Type Condition ICD9-CM Code [id number] Code Onset Dates Condition Status SNOMED Code Problem Pneumonia, organism unspecified 486 Active 488954331 Problem Insomnia, unspecified 780.52 Active 781128670 Problem Unspecified site of ankle sprain and strain 845.00 Active 68666227 Problem Unspecified episodic mood disorder 296.90 Active 264872664 Problem Actinic keratosis 702.0 Active 576411660 Problem Edema 782.3 Active 03722649 Problem Benign neoplasm of skin, site unspecified 216.9 Active 50490033 Problem Lower limb amputation, unspecified level V49.70 Active 853060477 Problem Urinary tract infection, site not specified 599.0 Active 78687219 Problem Unspecified vitamin D deficiency 268.9 Active 64473569 ALLERGIES Unknown Allergies SOCIAL HISTORY No smoking Hx information available PLAN OF CARE VITAL SIGNS MEDICATIONS Medication Instructions Dosage Frequency Start Date End Date Duration Status Valium 2 MG Orally Once a day 1 tablet as needed 24h 10 Oct, 2014 Active RESULTS No Results PROCEDURES No Known procedures IMMUNIZATIONS No Known Immunizations
--- OUTSIDE RECORDS SUMMARY | 2016-10-31 16:21 | XMS REPORT ---
Author Author ERIK SAMAYOA Organization [employer] Address Unknown Phone Unavailable Care Team Providers Care Transmission Rebuilder Name Role Phone ERIK SAMAYOA CP Unavailable [...] Unspecified vitamin D deficiency 268.9 Active Medications No Known Medications Results No Known Results Summary Purpose [employer] Submission
--- OUTSIDE RECORDS SUMMARY | 2016-10-31 16:21 | XMS REPORT ---
Author Author ERIK SAMAYOA [facility] [employer] Address Unknown Phone Unavailable Care Team Providers Care Auto Body Service Mechanic Name Role Phone ERIK SAMAYOA CP Unavailable [...] Coding System Code Date PROTHROMBIN TIME CPT-4 53995 December 02, 2015 Results No Known Results Summary Purpose [employer] Submission
--- OUTSIDE RECORDS SUMMARY | 2016-10-31 16:23 | XMS REPORT | Continuity of Care Document ---
Author Author [facility] Address Unknown Phone Unavailable Allergies Active Description Code Type Severity Reaction Onset Reported/Identified Relationship to Patient Clinical Status Yes aspirin Drug Allergy N/A N/A 06/11/2008 Yes codeine Drug Allergy N/A N/A 06/11/2008 Yes morphine Drug Allergy N/A N/A 06/11/2008 Yes Penicillins Drug Allergy N/A N/A 06/11/2008 Yes aspirin Drug Allergy 06/11/2008 Yes codeine Drug Allergy 06/11/2008 Yes morphine Drug Allergy 06/11/2008 Yes Penicillins Drug Allergy 06/11/2008 Medications Problems Date Dx Coded Attending Type Code Diagnosis Diagnosed By 03/26/2008 ERIK SAMAOYA APRN 845.00 SPRAIN/STRAIN ANKLE 03/26/2008 845.00 SPRAIN/STRAIN ANKLE 03/26/2008 845.00 SPRAIN/STRAIN ANKLE 03/26/2008 845.00 SPRAIN/STRAIN ANKLE 03/26/2008 845.00 SPRAIN/STRAIN ANKLE 03/26/2008 ANJEL JORDAN DO 845.00 SPRAIN/STRAIN ANKLE 03/26/2008 845.00 SPRAIN/STRAIN ANKLE 03/26/2008 845.00 SPRAIN/STRAIN ANKLE 03/26/2008 845.00 SPRAIN/STRAIN ANKLE 03/26/2008 ERIK SAMAYOA APRN 845.00 SPRAIN/STRAIN ANKLE 03/26/2008 845.00 SPRAIN/STRAIN ANKLE 03/26/2008 845.00 SPRAIN/STRAIN ANKLE 03/26/2008 845.00 SPRAIN/STRAIN ANKLE 03/26/2008 845.00 SPRAIN/STRAIN ANKLE 03/26/2008 845.00 SPRAIN/STRAIN ANKLE 03/26/2008 845.00 SPRAIN/STRAIN ANKLE 03/26/2008 845.00 SPRAIN/STRAIN ANKLE 03/26/2008 RAFAEL CHRISTIANSON, ADELINE 845.00 SPRAIN/STRAIN ANKLE 03/26/2008 DANITA CARD DOFFER, ERIK T 845.00 SPRAIN/STRAIN ANKLE 03/26/2008 ERIK SAMAYOA APRN T 845.00 SPRAIN/STRAIN ANKLE 03/26/2008 ERIK SAMAYOA APRN T 845.00 SPRAIN/STRAIN ANKLE 03/26/2008 JORDAN DO, ANJEL K 845.00 SPRAIN/STRAIN ANKLE 03/26/2008 JORDAN DO, ANJEL K 845.00 SPRAIN/STRAIN ANKLE 03/26/2008 JORDAN DO, ANJEL K 845.00 SPRAIN/STRAIN ANKLE 03/26/2008 JORDAN DO, ANJEL K 845.00 SPRAIN/STRAIN ANKLE 03/26/2008 ERIK SAMAYOA APRN T 845.00 SPRAIN/STRAIN ANKLE 03/26/2008 ERIK SAMAYOA APRN T 845.00 SPRAIN/STRAIN ANKLE 03/26/2008 ERIK SAMAYOA APRN T 845.00 SPRAIN/STRAIN ANKLE 03/26/2008 ERIK SAMAYOA APRN T 845.00 SPRAIN/STRAIN ANKLE 03/26/2008 ERIK SAMAYOA APRN T 845.00 SPRAIN/STRAIN ANKLE 03/26/2008 ERIK SAMAYOA APRN T 845.00 SPRAIN/STRAIN ANKLE 04/16/2008 ERIK SAMAYOA APRN T 729.5 foot pain (soft tissue) 04/16/2008 729.5 foot pain (soft tissue) 04/16/2008 729.5 foot pain (soft tissue) 04/16/2008 729.5 foot pain (soft tissue) 04/16/2008 729.5 foot pain (soft tissue) 04/16/2008 JORDAN DO, ANJEL K 729.5 foot pain (soft tissue) 04/16/2008 729.5 foot pain (soft tissue) 04/16/2008 729.5 foot pain (soft tissue) 04/16/2008 729.5 foot pain (soft tissue) 04/16/2008 ERIK SAMAYOA APRN T 729.5 foot pain (soft tissue) 04/16/2008 729.5 foot pain (soft tissue) 04/16/2008 729.5 foot pain (soft tissue) 04/16/2008 729.5 foot pain (soft tissue) 04/16/2008 729.5 foot pain (soft tissue) 04/16/2008 729.5 foot pain (soft tissue) 04/16/2008 729.5 foot pain (soft tissue) 04/16/2008 729.5 foot pain (soft tissue) 04/16/2008 ADELINE HALL MD 729.5 foot pain (soft tissue) 04/16/2008 ERIK SAMAYOA APRN 729.5 foot pain (soft tissue) 04/16/2008 ERIK SAMAYOA APRN 729.5 foot pain (soft tissue) 04/16/2008 ERKI SAMAYOA APRN 729.5 foot pain (soft tissue) 04/16/2008 JORDAN DO, ANEJL K 729.5 foot pain (soft tissue) 04/16/2008 JORDAN DO, ANJEL K 729.5 foot pain (soft tissue) 04/16/2008 JORDAN DO, ANJEL K 729.5 foot pain (soft tissue) 04/16/2008 JORDAN DO, ANJEL K 729.5 foot pain (soft tissue) 04/16/2008 ERIK SAMAYOA APRN 729.5 foot pain (soft tissue) 04/16/2008 ERIK SAMAYOA APRN 729.5 foot pain (soft tissue) 04/16/2008 ERIK SAMAYOA APRN 729.5 foot pain (soft tissue) 04/16/2008 ERIK SAMAYOA APRN 729.5 foot pain (soft tissue) 04/16/2008 ERIK SAMAYOA APRN 729.5 foot pain (soft tissue) 04/16/2008 ERIK SAMAYOA APRN 729.5 foot pain (soft tissue) 05/05/2008 ERIK SAMAYOA APRN 401.1 HYPERTENSION, BENIGN ESSENTIAL 05/05/2008 ERIK SAMAYOA APRN 894.0 WOUND OPEN LOWER LIMB 05/05/2008 401.1 HYPERTENSION, BENIGN ESSENTIAL 05/05/2008 894.0 WOUND OPEN LOWER LIMB 05/05/2008 401.1 HYPERTENSION, BENIGN ESSENTIAL 05/05/2008 894.0 WOUND OPEN LOWER LIMB 05/05/2008 401.1 HYPERTENSION, BENIGN ESSENTIAL 05/05/2008 894.0 WOUND OPEN LOWER LIMB 05/05/2008 401.1 HYPERTENSION, BENIGN ESSENTIAL 05/05/2008 894.0 WOUND OPEN LOWER LIMB 05/05/2008 JORDAN DO, ANJEL K 401.1 HYPERTENSION, BENIGN ESSENTIAL 05/05/2008 JORDAN DO, ANJEL K 894.0 WOUND OPEN LOWER LIMB 05/05/2008 401.1 HYPERTENSION, BENIGN ESSENTIAL 05/05/2008 894.0 WOUND OPEN LOWER LIMB 05/05/2008 401.1 HYPERTENSION, BENIGN ESSENTIAL 05/05/2008 894.0 WOUND OPEN LOWER LIMB 05/05/2008 401.1 HYPERTENSION, BENIGN ESSENTIAL 05/05/2008 894.0 WOUND OPEN LOWER LIMB 05/05/2008 ERIK SAMAYOA APRN 401.1 HYPERTENSION, BENIGN ESSENTIAL 05/05/2008 ERIK SAMAYOA APRN 894.0 WOUND OPEN LOWER LIMB 05/05/2008 401.1 HYPERTENSION, BENIGN ESSENTIAL 05/05/2008 894.0 WOUND OPEN LOWER LIMB 05/05/2008 401.1 HYPERTENSION, BENIGN ESSENTIAL 05/05/2008 894.0 WOUND OPEN LOWER LIMB 05/05/2008 401.1 HYPERTENSION, BENIGN ESSENTIAL 05/05/2008 894.0 WOUND OPEN LOWER LIMB 05/05/2008 401.1 HYPERTENSION, BENIGN ESSENTIAL 05/05/2008 894.0 WOUND OPEN LOWER LIMB 05/05/2008 401.1 HYPERTENSION, BENIGN ESSENTIAL 05/05/2008 894.0 WOUND OPEN LOWER LIMB 05/05/2008 401.1 HYPERTENSION, BENIGN ESSENTIAL 05/05/2008 894.0 WOUND OPEN LOWER LIMB 05/05/2008 401.1 HYPERTENSION, BENIGN ESSENTIAL 05/05/2008 894.0 WOUND OPEN LOWER LIMB 05/05/2008 ADELINE HALL MD 401.1 HYPERTENSION, BENIGN ESSENTIAL 05/05/2008 ADELINE HALL MD 894.0 WOUND OPEN LOWER LIMB 05/05/2008 ERIK SAMAYOA APRN 401.1 HYPERTENSION, BENIGN ESSENTIAL 05/05/2008 ERIK SAMAYOA APRN 894.0 WOUND OPEN LOWER LIMB 05/05/2008 ERIK SAMAYOA APRN 401.1 HYPERTENSION, BENIGN ESSENTIAL 05/05/2008 ERIK SAMAYOA APRN 894.0 WOUND OPEN LOWER LIMB 05/05/2008 ERIK SAMAYOA APRN 401.1 HYPERTENSION, BENIGN ESSENTIAL 05/05/2008 ERIK SAMAYOA APRN 894.0 WOUND OPEN LOWER LIMB 05/05/2008 JORDAN DO, ANJEL K 401.1 HYPERTENSION, BENIGN ESSENTIAL 05/05/2008 JORDAN DO, ANJEL K 894.0 WOUND OPEN LOWER LIMB 05/05/2008 JORDAN DO, ANJEL K 401.1 HYPERTENSION, BENIGN ESSENTIAL 05/05/2008 JORDAN DO, ANJEL K 894.0 WOUND OPEN LOWER LIMB 05/05/2008 JORDAN DO, ANJEL K 401.1 HYPERTENSION, BENIGN ESSENTIAL 05/05/2008 JORDAN DO, ANJEL K 894.0 WOUND OPEN LOWER LIMB 05/05/2008 JORDAN DO, ANJEL K 401.1 HYPERTENSION, BENIGN ESSENTIAL 05/05/2008 JORDAN DO, ANJEL K 894.0 WOUND OPEN LOWER LIMB 05/05/2008 DANITA CARD DOFFER, ERIK T 401.1 HYPERTENSION, BENIGN ESSENTIAL 05/05/2008 DANITA CARD DOFFER, ERIK T 894.0 WOUND OPEN LOWER LIMB 05/05/2008 DANITA CARD DOFFER, ERIK T 401.1 HYPERTENSION, BENIGN ESSENTIAL 05/05/2008 DANITA CARD DOFFER, ERIK T 894.0 WOUND OPEN LOWER LIMB 05/05/2008 DANITA CARD DOFFER, ERIK T 401.1 HYPERTENSION, BENIGN ESSENTIAL 05/05/2008 DANITA CARD DOFFER, ERIK T 894.0 WOUND OPEN LOWER LIMB 05/05/2008 DANITA CARD DOFFER, ERIK T 401.1 HYPERTENSION, BENIGN ESSENTIAL 05/05/2008 DANITA CARD DOFFER, ERIK T 894.0 WOUND OPEN LOWER LIMB 05/05/2008 DANITA CARD DOFFER, ERIK T 401.1 HYPERTENSION, BENIGN ESSENTIAL 05/05/2008 DANITA CARD DOFFER, ERIK T 894.0 WOUND OPEN LOWER LIMB 05/05/2008 DANITA CARD DOFFER, ERIK T 401.1 HYPERTENSION, BENIGN ESSENTIAL 05/05/2008 DANITA CARD DOFFER, ERIK T 894.0 WOUND OPEN LOWER LIMB 05/07/2008 ERIK SAMAYOA APRN T V65.40 OTHER SPECIFIED COUNSELING 05/07/2008 V65.40 OTHER SPECIFIED COUNSELING 05/07/2008 V65.40 OTHER SPECIFIED COUNSELING 05/07/2008 V65.40 OTHER SPECIFIED COUNSELING 05/07/2008 V65.40 OTHER SPECIFIED COUNSELING 05/07/2008 NIKKI DO, ANJEL K V65.40 OTHER SPECIFIED COUNSELING 05/07/2008 V65.40 OTHER SPECIFIED COUNSELING 05/07/2008 V65.40 OTHER SPECIFIED COUNSELING 05/07/2008 V65.40 OTHER SPECIFIED COUNSELING 05/07/2008 ERIK SAMAYOA APRN V65.40 OTHER SPECIFIED COUNSELING 05/07/2008 V65.40 OTHER SPECIFIED COUNSELING 05/07/2008 V65.40 OTHER SPECIFIED COUNSELING 05/07/2008 V65.40 OTHER SPECIFIED COUNSELING 05/07/2008 V65.40 OTHER SPECIFIED COUNSELING 05/07/2008 V65.40 OTHER SPECIFIED COUNSELING 05/07/2008 V65.40 OTHER SPECIFIED COUNSELING 05/07/2008 V65.40 OTHER SPECIFIED COUNSELING 05/07/2008 ADELINE HALL MD V65.40 OTHER SPECIFIED COUNSELING 05/07/2008 ERIK SAMAYOA APRN V65.40 OTHER SPECIFIED COUNSELING 05/07/2008 ERIK SAMAYOA APRN V65.40 OTHER SPECIFIED COUNSELING 05/07/2008 ERIK SAMAYOA APRN V65.40 OTHER SPECIFIED COUNSELING 05/07/2008 JORDAN DO, ANJEL K V65.40 OTHER SPECIFIED COUNSELING 05/07/2008 JORDAN DO, ANJEL K V65.40 OTHER SPECIFIED COUNSELING 05/07/2008 JORDAN DO, ANJEL K V65.40 OTHER SPECIFIED COUNSELING 05/07/2008 JORDAN DO, ANJEL K V65.40 OTHER SPECIFIED COUNSELING 05/07/2008 ERIK SAMAYOA APRN V65.40 OTHER SPECIFIED COUNSELING 05/07/2008 ERIK SAMAYOA APRN V65.40 OTHER SPECIFIED COUNSELING 05/07/2008 ERIK SAMAYOA APRN V65.40 OTHER SPECIFIED COUNSELING 05/07/2008 ERIK SAMAYOA APRN V65.40 OTHER SPECIFIED COUNSELING 05/07/2008 ERIK SAMAYOA APRN V65.40 OTHER SPECIFIED COUNSELING 05/07/2008 ERIK SAMAYOA APRN V65.40 OTHER SPECIFIED COUNSELING 10/23/2008 ERIK SAMAYOA APRN 599.0 URINARY TRACT INFECTION 10/23/2008 ERIK SAMAYOA APRN 692.9 DERMATITIS 10/23/2008 599.0 URINARY TRACT INFECTION 10/23/2008 692.9 DERMATITIS 10/23/2008 599.0 URINARY TRACT INFECTION 10/23/2008 692.9 DERMATITIS 10/23/2008 599.0 URINARY TRACT INFECTION 10/23/2008 692.9 DERMATITIS 10/23/2008 599.0 URINARY TRACT INFECTION 10/23/2008 692.9 DERMATITIS 10/23/2008 JORDAN DO, ANJEL K 599.0 URINARY TRACT INFECTION 10/23/2008 JORDAN DO, ANJEL K 692.9 DERMATITIS 10/23/2008 599.0 URINARY TRACT INFECTION 10/23/2008 692.9 DERMATITIS 10/23/2008 599.0 URINARY TRACT INFECTION 10/23/2008 692.9 DERMATITIS 10/23/2008 599.0 URINARY TRACT INFECTION 10/23/2008 692.9 DERMATITIS 10/23/2008 ERIK SAMAYOA APRN 599.0 URINARY TRACT INFECTION 10/23/2008 ERIK SAMAYOA APRN 692.9 DERMATITIS 10/23/2008 599.0 URINARY TRACT INFECTION 10/23/2008 692.9 DERMATITIS 10/23/2008 599.0 URINARY TRACT INFECTION 10/23/2008 692.9 DERMATITIS 10/23/2008 599.0 URINARY TRACT INFECTION 10/23/2008 692.9 DERMATITIS 10/23/2008 599.0 URINARY TRACT INFECTION 10/23/2008 692.9 DERMATITIS 10/23/2008 599.0 URINARY TRACT INFECTION 10/23/2008 692.9 DERMATITIS 10/23/2008 599.0 URINARY TRACT INFECTION 10/23/2008 692.9 DERMATITIS 10/23/2008 599.0 URINARY TRACT INFECTION 10/23/2008 692.9 DERMATITIS 10/23/2008 ADELINE HALL MD 599.0 URINARY TRACT INFECTION 10/23/2008 ADELINE HALL MD 692.9 DERMATITIS 10/23/2008 ERIK SAMAYOA APRN 599.0 URINARY TRACT INFECTION 10/23/2008 ERIK SAMAYOA APRN 692.9 DERMATITIS 10/23/2008 ERIK SAMAYOA APRN 599.0 URINARY TRACT INFECTION 10/23/2008 ERIK SAMAYOA APRN 692.9 DERMATITIS 10/23/2008 ERIK SAMAYOA APRN 599.0 URINARY TRACT INFECTION 10/23/2008 ERIK SAMAYOA APRN 692.9 DERMATITIS 10/23/2008 JORDAN DO, ANJEL K 599.0 URINARY TRACT INFECTION 10/23/2008 JORDAN DO, ANJEL K 692.9 DERMATITIS 10/23/2008 JORDAN DO, ANJEL K 599.0 URINARY TRACT INFECTION 10/23/2008 JORDAN DO, ANJEL K 692.9 DERMATITIS 10/23/2008 JORDAN DO, ANJEL K 599.0 URINARY TRACT INFECTION 10/23/2008 JORDAN DO, ANJEL K 692.9 DERMATITIS 10/23/2008 JORDAN DO, ANJEL K 599.0 URINARY TRACT INFECTION 10/23/2008 JORDAN DO, ANJEL K 692.9 DERMATITIS 10/23/2008 ERIK SAMAYOA APRN 599.0 URINARY TRACT INFECTION 10/23/2008 ERIK SAMAYOA APRN 692.9 DERMATITIS 10/23/2008 DANITA CARD DOFFER, ERIK T 599.0 URINARY TRACT INFECTION 10/23/2008 DANITA VILLAFANAN, ERIK T 692.9 DERMATITIS 10/23/2008 DANITA VILLAFANAN, ERIK T 599.0 URINARY TRACT INFECTION 10/23/2008 DANITA VILLAFANAN, ERIK T 692.9 DERMATITIS 10/23/2008 DANITA CARD DOFFER, ERIK T 599.0 URINARY TRACT INFECTION 10/23/2008 DANITA VILLAFANAN, ERIK T 692.9 DERMATITIS 10/23/2008 DANITA VILLAFANAN, ERIK T 599.0 URINARY TRACT INFECTION 10/23/2008 DANITA VILLAFANAN, ERIK T 692.9 DERMATITIS 10/23/2008 DANITA VILLAFANAN, ERIK T 599.0 URINARY TRACT INFECTION 10/23/2008 DANITA CABRERA, ERIK T 692.9 DERMATITIS 11/01/2008 ERIK SAMAYOA APRN T 276.8 HYPOKALEMIA 11/01/2008 276.8 HYPOKALEMIA 11/01/2008 276.8 HYPOKALEMIA 11/01/2008 276.8 HYPOKALEMIA 11/01/2008 276.8 HYPOKALEMIA 11/01/2008 JORDAN DO, ANJEL K 276.8 HYPOKALEMIA 11/01/2008 276.8 HYPOKALEMIA 11/01/2008 276.8 HYPOKALEMIA 11/01/2008 276.8 HYPOKALEMIA 11/01/2008 ERIK SAMAYOA APRN T 276.8 HYPOKALEMIA 11/01/2008 276.8 HYPOKALEMIA 11/01/2008 276.8 HYPOKALEMIA 11/01/2008 276.8 HYPOKALEMIA 11/01/2008 276.8 HYPOKALEMIA 11/01/2008 276.8 HYPOKALEMIA 11/01/2008 276.8 HYPOKALEMIA 11/01/2008 276.8 HYPOKALEMIA 11/01/2008 ADELINE HALL MD 276.8 HYPOKALEMIA 11/01/2008 ERIK SAMAYOA APRN T 276.8 HYPOKALEMIA 11/01/2008 ERIK SAMAYOA APRN T 276.8 HYPOKALEMIA 11/01/2008 ERIK SAMAYOA APRN T 276.8 HYPOKALEMIA 11/01/2008 JORDAN DO, ANJEL K 276.8 HYPOKALEMIA 11/01/2008 JORDAN DO, ANJEL K 276.8 HYPOKALEMIA 11/01/2008 JORDAN DO, ANJEL K 276.8 HYPOKALEMIA 11/01/2008 NIKKI KLINE ANJEL K 276.8 HYPOKALEMIA 11/01/2008 ERIK SAMAYOA APRN T 276.8 HYPOKALEMIA 11/01/2008 ERIK SAMAYOA APRN T 276.8 HYPOKALEMIA 11/01/2008 ERIK SAMAYOA APRN T 276.8 HYPOKALEMIA 11/01/2008 ERIK SAMAYOA APRN T 276.8 HYPOKALEMIA 11/01/2008 ERIK SAMAYOA APRN T 276.8 HYPOKALEMIA 11/01/2008 ERIK SAMAYOA APRN T 276.8 HYPOKALEMIA 03/06/2009 ERIK SAMAYOA APRN 112.3 Candidiasis, Of Skin And Nails 03/06/2009 112.3 Candidiasis, Of Skin And Nails 03/06/2009 112.3 Candidiasis, Of Skin And Nails 03/06/2009 112.3 Candidiasis, Of Skin And Nails 03/06/2009 112.3 Candidiasis, Of Skin And Nails 03/06/2009 ANJEL JORDAN DO 112.3 Candidiasis, Of Skin And Nails 03/06/2009 112.3 Candidiasis, Of Skin And Nails 03/06/2009 112.3 Candidiasis, Of Skin And Nails 03/06/2009 112.3 Candidiasis, Of Skin And Nails 03/06/2009 ERIK SAMAYOA APRN 112.3 Candidiasis, Of Skin And Nails 03/06/2009 112.3 Candidiasis, Of Skin And Nails 03/06/2009 112.3 Candidiasis, Of Skin And Nails 03/06/2009 112.3 Candidiasis, Of Skin And Nails 03/06/2009 112.3 Candidiasis, Of Skin And Nails 03/06/2009 112.3 Candidiasis, Of Skin And Nails 03/06/2009 112.3 Candidiasis, Of Skin And Nails 03/06/2009 112.3 Candidiasis, Of Skin And Nails 03/06/2009 ADELINE HALL MD 112.3 Candidiasis, Of Skin And Nails 03/06/2009 ERIK SAMAYOA APRN 112.3 Candidiasis, Of Skin And Nails 03/06/2009 ERIK SAMAYOA APRN 112.3 Candidiasis, Of Skin And Nails 03/06/2009 ERIK SAMAYOA APRN 112.3 Candidiasis, Of Skin And Nails 03/06/2009 JORDAN DO, ANJEL K 112.3 Candidiasis, Of Skin And Nails 03/06/2009 JORDAN YI KLINEA K 112.3 Candidiasis, Of Skin And Nails 03/06/2009 YI JORDAN DOA K 112.3 Candidiasis, Of Skin And Nails 03/06/2009 YI JORDAN DOA K 112.3 Candidiasis, Of Skin And Nails 03/06/2009 ERIK SAMAYOA APRN 112.3 Candidiasis, Of Skin And Nails 03/06/2009 ERIK SAMAYOA APRN 112.3 Candidiasis, Of Skin And Nails 03/06/2009 ERIK SAMAYOA APRN 112.3 Candidiasis, Of Skin And Nails 03/06/2009 ERIK SAMAYOA APRN 112.3 Candidiasis, Of Skin And Nails 03/06/2009 ERIK SAMAYOA APRN 112.3 Candidiasis, Of Skin And Nails 03/06/2009 ERIK SAMAYOA APRN 112.3 Candidiasis, Of Skin And Nails 04/20/2009 ERIK SAMAYOA APRN 110.4 Tinea Pedis 04/20/2009 110.4 Tinea Pedis 04/20/2009 110.4 Tinea Pedis 04/20/2009 110.4 Tinea Pedis 04/20/2009 110.4 Tinea Pedis 04/20/2009 ANJEL JORDAN DO K 110.4 Tinea Pedis 04/20/2009 110.4 Tinea Pedis 04/20/2009 110.4 Tinea Pedis 04/20/2009 110.4 Tinea Pedis 04/20/2009 ERIK SAMAYOA APRN 110.4 Tinea Pedis 04/20/2009 110.4 Tinea Pedis 04/20/2009 110.4 Tinea Pedis 04/20/2009 110.4 Tinea Pedis 04/20/2009 110.4 Tinea Pedis 04/20/2009 110.4 Tinea Pedis 04/20/2009 110.4 Tinea Pedis 04/20/2009 110.4 Tinea Pedis 04/20/2009 ADELINE HALL MD 110.4 Tinea Pedis 04/20/2009 ERIK SAMAYOA APRN 110.4 Tinea Pedis 04/20/2009 ERIK SAMAYOA APRN 110.4 Tinea Pedis 04/20/2009 ERIK SAMAYOA APRN 110.4 Tinea Pedis 04/20/2009 JORDAN DO, ANEJL K 110.4 Tinea Pedis 04/20/2009 JORDAN DO, ANJEL K 110.4 Tinea Pedis 04/20/2009 JORDAN DO, ANJEL K 110.4 Tinea Pedis 04/20/2009 JORDAN DO, ANJEL K 110.4 Tinea Pedis 04/20/2009 DANITA CARD DOFFERERIK T 110.4 Tinea Pedis 04/20/2009 DANITA CARD DOFFERERIK T 110.4 Tinea Pedis 04/20/2009 DANITA VILLAFANANERIK T 110.4 Tinea Pedis 04/20/2009 DANITA CARD DOFFERERIK T 110.4 Tinea Pedis 04/20/2009 DANITA CARD DOFFERERIK T 110.4 Tinea Pedis 04/20/2009 DANITA CARD DOFFERERIK T 110.4 Tinea Pedis 05/22/2009 ERIK SAMAYOA APRN 682.9 CELLULITIS AND ABSCESS OF UNSPECIFIED SITES 05/22/2009 682.9 CELLULITIS AND ABSCESS OF UNSPECIFIED SITES 05/22/2009 682.9 CELLULITIS AND ABSCESS OF UNSPECIFIED SITES 05/22/2009 682.9 CELLULITIS AND ABSCESS OF UNSPECIFIED SITES 05/22/2009 682.9 CELLULITIS AND ABSCESS OF UNSPECIFIED SITES 05/22/2009 JORDAN DO, ANJEL K 682.9 CELLULITIS AND ABSCESS OF UNSPECIFIED SITES 05/22/2009 682.9 CELLULITIS AND ABSCESS OF UNSPECIFIED SITES 05/22/2009 682.9 CELLULITIS AND ABSCESS OF UNSPECIFIED SITES 05/22/2009 682.9 CELLULITIS AND ABSCESS OF UNSPECIFIED SITES 05/22/2009 ERIK SAMAYOA APRN 682.9 CELLULITIS AND ABSCESS OF UNSPECIFIED SITES 05/22/2009 682.9 CELLULITIS AND ABSCESS OF UNSPECIFIED SITES 05/22/2009 682.9 CELLULITIS AND ABSCESS OF UNSPECIFIED SITES 05/22/2009 682.9 CELLULITIS AND ABSCESS OF UNSPECIFIED SITES 05/22/2009 682.9 CELLULITIS AND ABSCESS OF UNSPECIFIED SITES 05/22/2009 682.9 CELLULITIS AND ABSCESS OF UNSPECIFIED SITES 05/22/2009 682.9 CELLULITIS AND ABSCESS OF UNSPECIFIED SITES 05/22/2009 682.9 CELLULITIS AND ABSCESS OF UNSPECIFIED SITES 05/22/2009 ADELINE HALL MD 682.9 CELLULITIS AND ABSCESS OF UNSPECIFIED SITES 05/22/2009 ERIK SAMAYOA APRN 682.9 CELLULITIS AND ABSCESS OF UNSPECIFIED SITES 05/22/2009 ERIK SAMAYOA APRN 682.9 CELLULITIS AND ABSCESS OF UNSPECIFIED SITES 05/22/2009 ERIK SAMAYOA APRN 682.9 CELLULITIS AND ABSCESS OF UNSPECIFIED SITES 05/22/2009 JORDAN DO, ANJEL K 682.9 CELLULITIS AND ABSCESS OF UNSPECIFIED SITES 05/22/2009 JORDAN DO, ANJEL K 682.9 CELLULITIS AND ABSCESS OF UNSPECIFIED SITES 05/22/2009 JORDAN DO, ANJEL K 682.9 CELLULITIS AND ABSCESS OF UNSPECIFIED SITES 05/22/2009 JORDAN DO, ANJEL K 682.9 CELLULITIS AND ABSCESS OF UNSPECIFIED SITES 05/22/2009 ERIK SAMAYOA APRN 682.9 CELLULITIS AND ABSCESS OF UNSPECIFIED SITES 05/22/2009 ERIK SAMAYOA APRN 682.9 CELLULITIS AND ABSCESS OF UNSPECIFIED SITES 05/22/2009 ERIK SAMAYOA APRN 682.9 CELLULITIS AND ABSCESS OF UNSPECIFIED SITES 05/22/2009 ERIK SAMAYOA APRN 682.9 CELLULITIS AND ABSCESS OF UNSPECIFIED SITES 05/22/2009 ERIK SAMAYOA APRN 682.9 CELLULITIS AND ABSCESS OF UNSPECIFIED SITES 05/22/2009 ERIK SAMAYOA APRN 682.9 CELLULITIS AND ABSCESS OF UNSPECIFIED SITES 08/26/2009 ERIK SAMAYOA APRN 443.9 INTERMITTENT CLAUDICATION 08/26/2009 443.9 INTERMITTENT CLAUDICATION 08/26/2009 443.9 INTERMITTENT CLAUDICATION 08/26/2009 443.9 INTERMITTENT CLAUDICATION 08/26/2009 443.9 INTERMITTENT CLAUDICATION 08/26/2009 YI JORDAN DOA K 443.9 INTERMITTENT CLAUDICATION 08/26/2009 443.9 INTERMITTENT CLAUDICATION 08/26/2009 443.9 INTERMITTENT CLAUDICATION 08/26/2009 443.9 INTERMITTENT CLAUDICATION 08/26/2009 ERIK SAMAYOA APRN 443.9 INTERMITTENT CLAUDICATION 08/26/2009 443.9 INTERMITTENT CLAUDICATION 08/26/2009 443.9 INTERMITTENT CLAUDICATION 08/26/2009 443.9 INTERMITTENT CLAUDICATION 08/26/2009 443.9 INTERMITTENT CLAUDICATION 08/26/2009 443.9 INTERMITTENT CLAUDICATION 08/26/2009 443.9 INTERMITTENT CLAUDICATION 08/26/2009 443.9 INTERMITTENT CLAUDICATION 08/26/2009 RAFAEL CHRISTIANSON, ADELINE 443.9 INTERMITTENT CLAUDICATION 08/26/2009 ERIK SAMAYOA APRN 443.9 INTERMITTENT CLAUDICATION 08/26/2009 ERIK SAMAYOA APRN T 443.9 INTERMITTENT CLAUDICATION 08/26/2009 ERIK SAMAYOA APRN T 443.9 INTERMITTENT CLAUDICATION 08/26/2009 JORDAN DO, ANJEL K 443.9 INTERMITTENT CLAUDICATION 08/26/2009 JORDAN DO, ANJEL K 443.9 INTERMITTENT CLAUDICATION 08/26/2009 JORDAN DO, ANJEL K 443.9 INTERMITTENT CLAUDICATION 08/26/2009 JORDAN DO, ANJEL K 443.9 INTERMITTENT CLAUDICATION 08/26/2009 ERIK SAMAYOA APRN T 443.9 INTERMITTENT CLAUDICATION 08/26/2009 ERIK SAMAYOA APRN T 443.9 INTERMITTENT CLAUDICATION 08/26/2009 ERIK SAMAYOA APRN 443.9 INTERMITTENT CLAUDICATION 08/26/2009 ERIK SAMAYOA APRN 443.9 INTERMITTENT CLAUDICATION 08/26/2009 ERIK SAMAYOA APRN 443.9 INTERMITTENT CLAUDICATION 08/26/2009 ERIK SAMAYOA APRN T 443.9 INTERMITTENT CLAUDICATION 12/18/2009 ERIK SAMAYOA APRN 272.4 HYPERLIPIDEMIA UNSPECIFIED 12/18/2009 ERIK SAMAYOA APRN 465.9 UPPER RESPIRATORY INFECTION 12/18/2009 272.4 HYPERLIPIDEMIA UNSPECIFIED 12/18/2009 465.9 UPPER RESPIRATORY INFECTION 12/18/2009 272.4 HYPERLIPIDEMIA UNSPECIFIED 12/18/2009 465.9 UPPER RESPIRATORY INFECTION 12/18/2009 272.4 HYPERLIPIDEMIA UNSPECIFIED 12/18/2009 465.9 UPPER RESPIRATORY INFECTION 12/18/2009 272.4 HYPERLIPIDEMIA UNSPECIFIED 12/18/2009 465.9 UPPER RESPIRATORY INFECTION 12/18/2009 JORDAN DO, ANJEL K 272.4 HYPERLIPIDEMIA UNSPECIFIED 12/18/2009 JORDAN DO, ANJEL K 465.9 UPPER RESPIRATORY INFECTION 12/18/2009 272.4 HYPERLIPIDEMIA UNSPECIFIED 12/18/2009 465.9 UPPER RESPIRATORY INFECTION 12/18/2009 272.4 HYPERLIPIDEMIA UNSPECIFIED 12/18/2009 465.9 UPPER RESPIRATORY INFECTION 12/18/2009 272.4 HYPERLIPIDEMIA UNSPECIFIED 12/18/2009 465.9 UPPER RESPIRATORY INFECTION 12/18/2009 ERIK SAMAYOA APRN 272.4 HYPERLIPIDEMIA UNSPECIFIED 12/18/2009 ERIK SAMAYOA APRN 465.9 UPPER RESPIRATORY INFECTION 12/18/2009 272.4 HYPERLIPIDEMIA UNSPECIFIED 12/18/2009 465.9 UPPER RESPIRATORY INFECTION 12/18/2009 272.4 HYPERLIPIDEMIA UNSPECIFIED 12/18/2009 465.9 UPPER RESPIRATORY INFECTION 12/18/2009 272.4 HYPERLIPIDEMIA UNSPECIFIED 12/18/2009 465.9 UPPER RESPIRATORY INFECTION 12/18/2009 272.4 HYPERLIPIDEMIA UNSPECIFIED 12/18/2009 465.9 UPPER RESPIRATORY INFECTION 12/18/2009 272.4 HYPERLIPIDEMIA UNSPECIFIED 12/18/2009 465.9 UPPER RESPIRATORY INFECTION 12/18/2009 272.4 HYPERLIPIDEMIA UNSPECIFIED 12/18/2009 465.9 UPPER RESPIRATORY INFECTION 12/18/2009 272.4 HYPERLIPIDEMIA UNSPECIFIED 12/18/2009 465.9 UPPER RESPIRATORY INFECTION 12/18/2009 ADELINE HALL MD 272.4 HYPERLIPIDEMIA UNSPECIFIED 12/18/2009 ADELINE HALL MD 465.9 UPPER RESPIRATORY INFECTION 12/18/2009 ERIK SAMAYOA APRN 272.4 HYPERLIPIDEMIA UNSPECIFIED 12/18/2009 ERIK SAMAYOA APRN 465.9 UPPER RESPIRATORY INFECTION 12/18/2009 ERIK SAMAYOA APRN 272.4 HYPERLIPIDEMIA UNSPECIFIED 12/18/2009 ERIK SAMAYOA APRN 465.9 UPPER RESPIRATORY INFECTION 12/18/2009 ERIK SAMAYOA APRN 272.4 HYPERLIPIDEMIA UNSPECIFIED 12/18/2009 ERIK SAMAYOA APRN 465.9 UPPER RESPIRATORY INFECTION 12/18/2009 JORDAN DO, ANJEL K 272.4 HYPERLIPIDEMIA UNSPECIFIED 12/18/2009 JORDAN DO, ANJEL K 465.9 UPPER RESPIRATORY INFECTION 12/18/2009 JORDAN DO, ANJEL K 272.4 HYPERLIPIDEMIA UNSPECIFIED 12/18/2009 JORDAN DO, ANJEL K 465.9 UPPER RESPIRATORY INFECTION 12/18/2009 JORDAN DO, ANJEL K 272.4 HYPERLIPIDEMIA UNSPECIFIED 12/18/2009 JORDAN DO, ANJEL K 465.9 UPPER RESPIRATORY INFECTION 12/18/2009 JORDAN DO, ANJEL K 272.4 HYPERLIPIDEMIA UNSPECIFIED 12/18/2009 JORDAN DO, ANJEL K 465.9 UPPER RESPIRATORY INFECTION 12/18/2009 ERIK SAMAYOA APRN 272.4 HYPERLIPIDEMIA UNSPECIFIED 12/18/2009 ERIK SAMAYOA APRN 465.9 UPPER RESPIRATORY INFECTION 12/18/2009 ERIK SAMAYOA APRN 272.4 HYPERLIPIDEMIA UNSPECIFIED 12/18/2009 ERIK SAMAYOA APRN T 465.9 UPPER RESPIRATORY INFECTION 12/18/2009 ERIK SAMAYOA APRN T 272.4 HYPERLIPIDEMIA UNSPECIFIED 12/18/2009 ERIK SAMAYOA APRN T 465.9 UPPER RESPIRATORY INFECTION 12/18/2009 ERIK SAMAYOA APRN T 272.4 HYPERLIPIDEMIA UNSPECIFIED 12/18/2009 ERIK SAMAYOA APRN T 465.9 UPPER RESPIRATORY INFECTION 12/18/2009 ERIK SAMAYOA APRN T 272.4 HYPERLIPIDEMIA UNSPECIFIED 12/18/2009 ERIK SAMAYOA APRN T 465.9 UPPER RESPIRATORY INFECTION 12/18/2009 ERIK SAMAYOA APRN T 272.4 HYPERLIPIDEMIA UNSPECIFIED 12/18/2009 ERIK SAMAYOA APRN T 465.9 UPPER RESPIRATORY INFECTION 09/29/2010 ERIK SAMAYOA APRN 357.9 NEUROPATHY UNSP 09/29/2010 ERIK SAMAYOA APRN 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 09/29/2010 357.9 NEUROPATHY UNSP 09/29/2010 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 09/29/2010 357.9 NEUROPATHY UNSP 09/29/2010 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 09/29/2010 357.9 NEUROPATHY UNSP 09/29/2010 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 09/29/2010 357.9 NEUROPATHY UNSP 09/29/2010 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 09/29/2010 ANJEL JORDAN DO 357.9 NEUROPATHY UNSP 09/29/2010 ANJEL JORDAN DO 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 09/29/2010 357.9 NEUROPATHY UNSP 09/29/2010 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 09/29/2010 357.9 NEUROPATHY UNSP 09/29/2010 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 09/29/2010 357.9 NEUROPATHY UNSP 09/29/2010 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 09/29/2010 ERIK SAMAYOA APRN 357.9 NEUROPATHY UNSP 09/29/2010 ERIK SAMAYOA APRN 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 09/29/2010 357.9 NEUROPATHY UNSP 09/29/2010 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 09/29/2010 357.9 NEUROPATHY UNSP 09/29/2010 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 09/29/2010 357.9 NEUROPATHY UNSP 09/29/2010 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 09/29/2010 357.9 NEUROPATHY UNSP 09/29/2010 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 09/29/2010 357.9 NEUROPATHY UNSP 09/29/2010 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 09/29/2010 357.9 NEUROPATHY UNSP 09/29/2010 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 09/29/2010 357.9 NEUROPATHY UNSP 09/29/2010 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 09/29/2010 ADELINE HALL MD 357.9 NEUROPATHY UNSP 09/29/2010 ADELINE HALL MD 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 09/29/2010 ERIK SAMAYOA APRN 357.9 NEUROPATHY UNSP 09/29/2010 ERIK SAMAYOA APRN 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 09/29/2010 ERIK SAMAYOA APRN 357.9 NEUROPATHY UNSP 09/29/2010 ERIK SAMAYOA APRN 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 09/29/2010 ERIK SAMAYOA APRN 357.9 NEUROPATHY UNSP 09/29/2010 ERIK SAMAYOA APRN 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 09/29/2010 JORDAN DO, ANJEL K 357.9 NEUROPATHY UNSP 09/29/2010 JORDAN DO, ANJEL K 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 09/29/2010 JORDAN DO, ANJEL K 357.9 NEUROPATHY UNSP 09/29/2010 JORDAN DO, ANJEL K 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 09/29/2010 JORDAN DO, ANJEL K 357.9 NEUROPATHY UNSP 09/29/2010 JORDAN DO, ANJEL K 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 09/29/2010 JORDAN DO, ANJEL K 357.9 NEUROPATHY UNSP 09/29/2010 JORDAN DO, ANJEL K 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 09/29/2010 ERIK SAMAYOA APRN 357.9 NEUROPATHY UNSP 09/29/2010 ERIK SAMAYOA APRN 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 09/29/2010 ERIK SAMAYOA APRN 357.9 NEUROPATHY UNSP 09/29/2010 ERIK SAMAYOA APRN 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 09/29/2010 ERIK SAMAYOA APRN 357.9 NEUROPATHY UNSP 09/29/2010 ERIK SAMAYOA APRN 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 09/29/2010 ERIK SAMAYOA APRN 357.9 NEUROPATHY UNSP 09/29/2010 ERIK SAMAYOA APRN 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 09/29/2010 ERIK SAMAYOA APRN 357.9 NEUROPATHY UNSP 09/29/2010 ERIK SAMAYOA APRN 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 09/29/2010 ERIK SAMAYOA APRN 357.9 NEUROPATHY UNSP 09/29/2010 ERIK SAMAYOA APRN 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 01/14/2011 ERIK SAMAYOA APRN 477.9 RHINITIS 01/14/2011 477.9 RHINITIS 01/14/2011 477.9 RHINITIS 01/14/2011 477.9 RHINITIS 01/14/2011 477.9 RHINITIS 01/14/2011 JORDAN DO, ANJEL K 477.9 RHINITIS 01/14/2011 477.9 RHINITIS 01/14/2011 477.9 RHINITIS 01/14/2011 477.9 RHINITIS 01/14/2011 ERIK SAMAYOA APRN 477.9 RHINITIS 01/14/2011 477.9 RHINITIS 01/14/2011 477.9 RHINITIS 01/14/2011 477.9 RHINITIS 01/14/2011 477.9 RHINITIS 01/14/2011 477.9 RHINITIS 01/14/2011 477.9 RHINITIS 01/14/2011 477.9 RHINITIS 01/14/2011 RAFAEL CHRISTIANSON, ADELINE 477.9 RHINITIS 01/14/2011 ERIK SAMAYOA APRN 477.9 RHINITIS 01/14/2011 ERIK SAMAYOA APRN 477.9 RHINITIS 01/14/2011 ERIK SAMAYOA APRN 477.9 RHINITIS 01/14/2011 JORDAN DO, ANJEL K 477.9 RHINITIS 01/14/2011 JORDAN DO, ANJEL K 477.9 RHINITIS 01/14/2011 JORDAN DO, ANJEL K 477.9 RHINITIS 01/14/2011 JORDAN DO, ANJEL K 477.9 RHINITIS 01/14/2011 ERIK SAMAYOA APRN 477.9 RHINITIS 01/14/2011 ERIK SAMAYOA APRN 477.9 RHINITIS 01/14/2011 ERIK SAMAYOA APRN 477.9 RHINITIS 01/14/2011 ERIK SAMAYOA APRN 477.9 RHINITIS 01/14/2011 ERIK SAMAYOA APRN 477.9 RHINITIS 01/14/2011 ERIK SAMAYOA APRN 477.9 RHINITIS 04/05/2011 ERIK SAMAYOA APRN V58.69 taking high-risk medication 04/05/2011 V58.69 taking high-risk medication 04/05/2011 V58.69 taking high-risk medication 04/05/2011 V58.69 taking high-risk medication 04/05/2011 V58.69 taking high-risk medication 04/05/2011 JORDAN DO, ANJEL K V58.69 taking high-risk medication 04/05/2011 V58.69 taking high-risk medication 04/05/2011 V58.69 taking high-risk medication 04/05/2011 V58.69 taking high-risk medication 04/05/2011 ERIK SAMAYOA APRN V58.69 taking high-risk medication 04/05/2011 V58.69 taking high-risk medication 04/05/2011 V58.69 taking high-risk medication 04/05/2011 V58.69 taking high-risk medication 04/05/2011 V58.69 taking high-risk medication 04/05/2011 V58.69 taking high-risk medication 04/05/2011 V58.69 taking high-risk medication 04/05/2011 V58.69 taking high-risk medication 04/05/2011 RAFAEL CHRISTIANSON, ADELINE V58.69 taking high-risk medication 04/05/2011 ERIK SAMAYOA APRN V58.69 taking high-risk medication 04/05/2011 ERIK SAMAYOA APRN V58.69 taking high-risk medication 04/05/2011 EIRK SAMAYOA APRN V58.69 taking high-risk medication 04/05/2011 JORDAN DO, ANJEL K V58.69 taking high-risk medication 04/05/2011 JORDAN DO, ANJEL K V58.69 taking high-risk medication 04/05/2011 JORDAN DO, ANJEL K V58.69 taking high-risk medication 04/05/2011 JORDAN DO, ANJEL K V58.69 taking high-risk medication 04/05/2011 ERIK SAMAYOA APRN V58.69 taking high-risk medication 04/05/2011 ERIK SAMAYOA APRN V58.69 taking high-risk medication 04/05/2011 ERIK SAMAYOA APRN V58.69 taking high-risk medication 04/05/2011 ERIK SAMAYOA APRN V58.69 taking high-risk medication 04/05/2011 ERIK SAMAYOA APRN V58.69 taking high-risk medication 04/05/2011 ERIK SAMAYOA APRN V58.69 taking high-risk medication 07/04/2011 ERIK SAMAYOA APRN T 296.90 MOOD DISORDER 07/04/2011 296.90 MOOD DISORDER 07/04/2011 296.90 MOOD DISORDER 07/04/2011 296.90 MOOD DISORDER 07/04/2011 296.90 MOOD DISORDER 07/04/2011 JORDAN DO, ANJEL K 296.90 MOOD DISORDER 07/04/2011 296.90 MOOD DISORDER 07/04/2011 296.90 MOOD DISORDER 07/04/2011 296.90 MOOD DISORDER 07/04/2011 ERIK SAMAYOA APRN 296.90 MOOD DISORDER 07/04/2011 296.90 MOOD DISORDER 07/04/2011 296.90 MOOD DISORDER 07/04/2011 296.90 MOOD DISORDER 07/04/2011 296.90 MOOD DISORDER 07/04/2011 296.90 MOOD DISORDER 07/04/2011 296.90 MOOD DISORDER 07/04/2011 296.90 MOOD DISORDER 07/04/2011 ADELINE HALL MD 296.90 MOOD DISORDER 07/04/2011 ERIK SAMAYOA APRN 296.90 MOOD DISORDER 07/04/2011 ERIK SAMAYOA APRN T 296.90 MOOD DISORDER 07/04/2011 ERIK SAMAYOA APRN T 296.90 MOOD DISORDER 07/04/2011 JORDAN DO, ANJEL K 296.90 MOOD DISORDER 07/04/2011 JORDAN DO, ANJEL K 296.90 MOOD DISORDER 07/04/2011 JORDAN DO, ANJEL K 296.90 MOOD DISORDER 07/04/2011 JORDAN DO, ANJEL K 296.90 MOOD DISORDER 07/04/2011 ERIK SAMAYOA APRN T 296.90 MOOD DISORDER 07/04/2011 ERIK SAMAYOA APRN T 296.90 MOOD DISORDER 07/04/2011 ERIK SAMAYOA APRN 296.90 MOOD DISORDER 07/04/2011 ERIK SAMAYOA APRN 296.90 MOOD DISORDER 07/04/2011 ERIK SAMAYOA APRN T 296.90 MOOD DISORDER 07/04/2011 ERIK SAMAYOA APRN T 296.90 MOOD DISORDER 07/13/2011 ERIK SAMAYOA APRN 268.9 VITAMIN D DEFICIENCY 07/13/2011 268.9 VITAMIN D DEFICIENCY 07/13/2011 268.9 VITAMIN D DEFICIENCY 07/13/2011 268.9 VITAMIN D DEFICIENCY 07/13/2011 268.9 VITAMIN D DEFICIENCY 07/13/2011 JORDAN DO, ANJEL K 268.9 VITAMIN D DEFICIENCY 07/13/2011 268.9 VITAMIN D DEFICIENCY 07/13/2011 268.9 VITAMIN D DEFICIENCY 07/13/2011 268.9 VITAMIN D DEFICIENCY 07/13/2011 ERIK SAMAYOA APRN 268.9 VITAMIN D DEFICIENCY 07/13/2011 268.9 VITAMIN D DEFICIENCY 07/13/2011 268.9 VITAMIN D DEFICIENCY 07/13/2011 268.9 VITAMIN D DEFICIENCY 07/13/2011 268.9 VITAMIN D DEFICIENCY 07/13/2011 268.9 VITAMIN D DEFICIENCY 07/13/2011 268.9 VITAMIN D DEFICIENCY 07/13/2011 268.9 VITAMIN D DEFICIENCY 07/13/2011 ADELINE HALL MD 268.9 VITAMIN D DEFICIENCY 07/13/2011 ERIK SAMAYOA APRN 268.9 VITAMIN D DEFICIENCY 07/13/2011 ERIK SAMAYOA APRN 268.9 VITAMIN D DEFICIENCY 07/13/2011 ERIK SAMAYOA APRN 268.9 VITAMIN D DEFICIENCY 07/13/2011 JORDAN DO, ANJEL K 268.9 VITAMIN D DEFICIENCY 07/13/2011 JORDAN DO, ANJEL K 268.9 VITAMIN D DEFICIENCY 07/13/2011 JORDAN DO, ANJEL K 268.9 VITAMIN D DEFICIENCY 07/13/2011 JORDAN DO, ANJEL K 268.9 VITAMIN D DEFICIENCY 07/13/2011 ERIK SAMAYOA APRN 268.9 VITAMIN D DEFICIENCY 07/13/2011 ERIK SAMAYOA APRN 268.9 VITAMIN D DEFICIENCY 07/13/2011 ERIK SAMAYOA APRN 268.9 VITAMIN D DEFICIENCY 07/13/2011 ERIK SAMAYOA APRN 268.9 VITAMIN D DEFICIENCY 07/13/2011 ERIK SAMAYOA APRN 268.9 VITAMIN D DEFICIENCY 07/13/2011 ERIK SAMAYOA APRN 268.9 VITAMIN D DEFICIENCY 11/25/2011 ERIK SAMAYOA APRN 780.52 INSOMNIA UNSPECIFIED 11/25/2011 780.52 INSOMNIA UNSPECIFIED 11/25/2011 780.52 INSOMNIA UNSPECIFIED 11/25/2011 780.52 INSOMNIA UNSPECIFIED 11/25/2011 780.52 INSOMNIA UNSPECIFIED 11/25/2011 JORDAN DO, ANJEL K 780.52 INSOMNIA UNSPECIFIED 11/25/2011 780.52 INSOMNIA UNSPECIFIED 11/25/2011 780.52 INSOMNIA UNSPECIFIED 11/25/2011 780.52 INSOMNIA UNSPECIFIED 11/25/2011 ERIK SAMAYOA APRN 780.52 INSOMNIA UNSPECIFIED 11/25/2011 780.52 INSOMNIA UNSPECIFIED 11/25/2011 780.52 INSOMNIA UNSPECIFIED 11/25/2011 780.52 INSOMNIA UNSPECIFIED 11/25/2011 780.52 INSOMNIA UNSPECIFIED 11/25/2011 780.52 INSOMNIA UNSPECIFIED 11/25/2011 780.52 INSOMNIA UNSPECIFIED 11/25/2011 780.52 INSOMNIA UNSPECIFIED 11/25/2011 ADELINE HALL MD 780.52 INSOMNIA UNSPECIFIED 11/25/2011 ERIK SAMAYOA APRN 780.52 INSOMNIA UNSPECIFIED 11/25/2011 ERIK SAMAYOA APRN 780.52 INSOMNIA UNSPECIFIED 11/25/2011 ERIK SAMAYOA APRN 780.52 INSOMNIA UNSPECIFIED 11/25/2011 JORDAN DO, ANJEL K 780.52 INSOMNIA UNSPECIFIED 11/25/2011 JORDAN DO, ANJEL K 780.52 INSOMNIA UNSPECIFIED 11/25/2011 JORDAN DO, ANJEL K 780.52 INSOMNIA UNSPECIFIED 11/25/2011 JORDAN DO, ANJEL K 780.52 INSOMNIA UNSPECIFIED 11/25/2011 ERIK SAMAYOA APRN 780.52 INSOMNIA UNSPECIFIED 11/25/2011 ERIK SAMAYOA APRN 780.52 INSOMNIA UNSPECIFIED 11/25/2011 ERIK SAMAYOA APRN 780.52 INSOMNIA UNSPECIFIED 11/25/2011 ERIK SAMAYOA APRN 780.52 INSOMNIA UNSPECIFIED 11/25/2011 ERIK SAMAYOA APRN 780.52 INSOMNIA UNSPECIFIED 11/25/2011 ERIK SAMAYOA APRN 780.52 INSOMNIA UNSPECIFIED 01/31/2012 ERIK SAMAYOA APRN 845.00 ANKLE SPRAIN 01/31/2012 845.00 ANKLE SPRAIN 01/31/2012 845.00 ANKLE SPRAIN 01/31/2012 845.00 ANKLE SPRAIN 01/31/2012 845.00 ANKLE SPRAIN 01/31/2012 JORDAN DO, ANJEL K 845.00 ANKLE SPRAIN 01/31/2012 845.00 ANKLE SPRAIN 01/31/2012 845.00 ANKLE SPRAIN 01/31/2012 845.00 ANKLE SPRAIN 01/31/2012 ERIK SAMAYOA APRN 845.00 ANKLE SPRAIN 01/31/2012 845.00 ANKLE SPRAIN 01/31/2012 845.00 ANKLE SPRAIN 01/31/2012 845.00 ANKLE SPRAIN 01/31/2012 845.00 ANKLE SPRAIN 01/31/2012 845.00 ANKLE SPRAIN 01/31/2012 845.00 ANKLE SPRAIN 01/31/2012 845.00 ANKLE SPRAIN 01/31/2012 ADELINE HALL MD 845.00 ANKLE SPRAIN 01/31/2012 ERIK SAMAYOA APRN 845.00 ANKLE SPRAIN 01/31/2012 ERIK SAMAYOA APRN 845.00 ANKLE SPRAIN 01/31/2012 ERIK SAMAYOA APRN 845.00 ANKLE SPRAIN 01/31/2012 JORDAN DO, ANJEL K 845.00 ANKLE SPRAIN 01/31/2012 JORDAN DO, ANJEL K 845.00 ANKLE SPRAIN 01/31/2012 JORDAN DO, ANJEL K 845.00 ANKLE SPRAIN 01/31/2012 JORDAN DO, ANJEL K 845.00 ANKLE SPRAIN 01/31/2012 ERIK SAMAYOA APRN 845.00 ANKLE SPRAIN 01/31/2012 ERIK SAMAYOA APRN 845.00 ANKLE SPRAIN 01/31/2012 ERIK SAMAYOA APRN 845.00 ANKLE SPRAIN 01/31/2012 ERIK SAMAYOA APRN 845.00 ANKLE SPRAIN 01/31/2012 ERIK SAMAYOA APRN 845.00 ANKLE SPRAIN 01/31/2012 ERIK SAMAYOA APRN 845.00 ANKLE SPRAIN 04/10/2012 ERIK SAMAYOA APRN 599.0 URINARY TRACT INFECTION 04/10/2012 599.0 URINARY TRACT INFECTION 04/10/2012 599.0 URINARY TRACT INFECTION 04/10/2012 599.0 URINARY TRACT INFECTION 04/10/2012 599.0 URINARY TRACT INFECTION 04/10/2012 YI JORDAN DOA K 599.0 URINARY TRACT INFECTION 04/10/2012 599.0 URINARY TRACT INFECTION 04/10/2012 599.0 URINARY TRACT INFECTION 04/10/2012 599.0 URINARY TRACT INFECTION 04/10/2012 ERIK SAMAYOA APRN 599.0 URINARY TRACT INFECTION 04/10/2012 599.0 URINARY TRACT INFECTION 04/10/2012 599.0 URINARY TRACT INFECTION 04/10/2012 599.0 URINARY TRACT INFECTION 04/10/2012 599.0 URINARY TRACT INFECTION 04/10/2012 599.0 URINARY TRACT INFECTION 04/10/2012 599.0 URINARY TRACT INFECTION 04/10/2012 599.0 URINARY TRACT INFECTION 04/10/2012 ADELINE HALL MD 599.0 URINARY TRACT INFECTION 04/10/2012 ERIK SAMAYOA APRN 599.0 URINARY TRACT INFECTION 04/10/2012 ERIK SAMAYOA APRN T 599.0 URINARY TRACT INFECTION 04/10/2012 ERIK SAMAYOA APRN T 599.0 URINARY TRACT INFECTION 04/10/2012 JORDAN DO, ANJEL K 599.0 URINARY TRACT INFECTION 04/10/2012 JORDAN DO, ANJEL K 599.0 URINARY TRACT INFECTION 04/10/2012 JORDAN DO, ANJEL K 599.0 URINARY TRACT INFECTION 04/10/2012 JORDAN DO, ANJEL K 599.0 URINARY TRACT INFECTION 04/10/2012 ERIK SAMAYOA APRN 599.0 URINARY TRACT INFECTION 04/10/2012 ERIK SAMAYOA APRN 599.0 URINARY TRACT INFECTION 04/10/2012 ERIK SAMAYOA APRN 599.0 URINARY TRACT INFECTION 04/10/2012 ERIK SAMAYOA APRN 599.0 URINARY TRACT INFECTION 04/10/2012 ERIK SAMAYOA APRN 599.0 URINARY TRACT INFECTION 04/10/2012 ERIK SAMAYOA APRN 599.0 URINARY TRACT INFECTION 07/06/2012 702.0 ACTINIC KERATOSIS 07/06/2012 782.3 EDEMA 07/06/2012 ERIK SAMAYOA APRN T 702.0 ACTINIC KERATOSIS 07/06/2012 ERIK SAMAYOA APRN 782.3 EDEMA 07/06/2012 702.0 ACTINIC KERATOSIS 07/06/2012 782.3 EDEMA 07/06/2012 702.0 ACTINIC KERATOSIS 07/06/2012 782.3 EDEMA 07/06/2012 702.0 ACTINIC KERATOSIS 07/06/2012 782.3 EDEMA 07/06/2012 702.0 ACTINIC KERATOSIS 07/06/2012 782.3 EDEMA 07/06/2012 702.0 ACTINIC KERATOSIS 07/06/2012 782.3 EDEMA 07/06/2012 702.0 ACTINIC KERATOSIS 07/06/2012 782.3 EDEMA 07/06/2012 702.0 ACTINIC KERATOSIS 07/06/2012 782.3 EDEMA 07/06/2012 ADELINE HALL MD 702.0 ACTINIC KERATOSIS 07/06/2012 ADELINE HALL MD 782.3 EDEMA 07/06/2012 DANITA CABRERA, ERIK T 702.0 ACTINIC KERATOSIS 07/06/2012 DANITA CABRERA, ERIK T 782.3 EDEMA 07/06/2012 DANITA CABRERA, ERIK T 702.0 ACTINIC KERATOSIS 07/06/2012 ERIK SAMAYOA APRN T 782.3 EDEMA 07/06/2012 DANITA VILLAFANAN, ERIK T 702.0 ACTINIC KERATOSIS 07/06/2012 DANITA VILLAFANAN, ERIK T 782.3 EDEMA 07/06/2012 JORDAN DO, ANJEL K 702.0 ACTINIC KERATOSIS 07/06/2012 JORDAN DO, ANJEL K 782.3 EDEMA 07/06/2012 JORDAN DO, ANJEL K 702.0 ACTINIC KERATOSIS 07/06/2012 JORDAN DO, ANJEL K 782.3 EDEMA 07/06/2012 JORDAN DO, ANJEL K 702.0 ACTINIC KERATOSIS 07/06/2012 JORDAN DO, ANJEL K 782.3 EDEMA 07/06/2012 JORDAN DO, ANJEL K 702.0 ACTINIC KERATOSIS 07/06/2012 JORDAN DO, ANJEL K 782.3 EDEMA 07/06/2012 DANITA CABRERA, ERIK T 702.0 ACTINIC KERATOSIS 07/06/2012 DANITA CABRERA, ERIK T 782.3 EDEMA 07/06/2012 DANITA CABRERA, ERIK T 702.0 ACTINIC KERATOSIS 07/06/2012 ERIK SAMAYOA APRN T 782.3 EDEMA 07/06/2012 DANITA CABRERA ERIK T 702.0 ACTINIC KERATOSIS 07/06/2012 DANITA CABRERA, ERIK T 782.3 EDEMA 07/06/2012 DANITA CABRERA, ERIK T 702.0 ACTINIC KERATOSIS 07/06/2012 ERIK SAMAYOA APRN T 782.3 EDEMA 07/06/2012 ERIK SAMAYOA APRN T 702.0 ACTINIC KERATOSIS 07/06/2012 ERIK SAMAYOA APRN T 782.3 EDEMA 07/06/2012 ERIK SAMAYOA APRN T 702.0 ACTINIC KERATOSIS 07/06/2012 ERIK SAMAYOA APRN T 782.3 EDEMA 10/22/2012 V49.70 UNSPECIFIED LEVEL LOWER LIMB AMPUTATION STATUS 10/22/2012 V49.70 UNSPECIFIED LEVEL LOWER LIMB AMPUTATION STATUS 10/22/2012 V49.70 UNSPECIFIED LEVEL LOWER LIMB AMPUTATION STATUS 10/22/2012 V49.70 UNSPECIFIED LEVEL LOWER LIMB AMPUTATION STATUS 10/22/2012 ADELINE HALL MD V49.70 UNSPECIFIED LEVEL LOWER LIMB AMPUTATION STATUS 10/22/2012 ERIK SAMAYOA APRN V49.70 UNSPECIFIED LEVEL LOWER LIMB AMPUTATION STATUS 10/22/2012 ERIK SAMAYOA APRN V49.70 UNSPECIFIED LEVEL LOWER LIMB AMPUTATION STATUS 10/22/2012 ERIK SAMAYOA APRN V49.70 UNSPECIFIED LEVEL LOWER LIMB AMPUTATION STATUS 10/22/2012 JORDAN DO, ANJEL K V49.70 UNSPECIFIED LEVEL LOWER LIMB AMPUTATION STATUS 10/22/2012 JORDAN DO, ANJEL K V49.70 UNSPECIFIED LEVEL LOWER LIMB AMPUTATION STATUS 10/22/2012 JORDAN DO, ANJEL K V49.70 UNSPECIFIED LEVEL LOWER LIMB AMPUTATION STATUS 10/22/2012 JORDAN DO, ANJEL K V49.70 UNSPECIFIED LEVEL LOWER LIMB AMPUTATION STATUS 10/22/2012 ERIK SAMAYOA APRN V49.70 UNSPECIFIED LEVEL LOWER LIMB AMPUTATION STATUS 10/22/2012 ERIK SAMAYOA APRN V49.70 UNSPECIFIED LEVEL LOWER LIMB AMPUTATION STATUS 10/22/2012 ERIK SAMAYOA APRN V49.70 UNSPECIFIED LEVEL LOWER LIMB AMPUTATION STATUS 10/22/2012 ERIK SAMAYOA APRN V49.70 UNSPECIFIED LEVEL LOWER LIMB AMPUTATION STATUS 10/22/2012 ERIK SAMAYOA APRN V49.70 UNSPECIFIED LEVEL LOWER LIMB AMPUTATION STATUS 10/22/2012 ERIK SAMAYOA APRN V49.70 UNSPECIFIED LEVEL LOWER LIMB AMPUTATION STATUS 11/13/2012 216.9 MOLE/NEVUS - SITE UNSPECIFIED 11/13/2012 216.9 MOLE/NEVUS - SITE UNSPECIFIED 11/13/2012 216.9 MOLE/NEVUS - SITE UNSPECIFIED 11/13/2012 ADELINE HALL MD 216.9 MOLE/NEVUS - SITE UNSPECIFIED 11/13/2012 ERIK SAMAYOA APRN 216.9 MOLE/NEVUS - SITE UNSPECIFIED 11/13/2012 ERIK SAMAYOA APRN 216.9 MOLE/NEVUS - SITE UNSPECIFIED 11/13/2012 ERIK SAMAYOA APRN 216.9 MOLE/NEVUS - SITE UNSPECIFIED 11/13/2012 JORDAN DO, ANJEL K 216.9 MOLE/NEVUS - SITE UNSPECIFIED 11/13/2012 JORDAN DO, ANJEL K 216.9 MOLE/NEVUS - SITE UNSPECIFIED 11/13/2012 JORDAN DO, ANJEL K 216.9 MOLE/NEVUS - SITE UNSPECIFIED 11/13/2012 JORDAN DO, ANJEL K 216.9 MOLE/NEVUS - SITE UNSPECIFIED 11/13/2012 DANITA CARD DOFFER ERIK T 216.9 MOLE/NEVUS - SITE UNSPECIFIED 11/13/2012 DANITA CARD DOFFER, ERIK T 216.9 MOLE/NEVUS - SITE UNSPECIFIED 11/13/2012 DANITA CARD DOFFER, ERIK T 216.9 MOLE/NEVUS - SITE UNSPECIFIED 11/13/2012 DANITA CARD DOFFER, ERIK T 216.9 MOLE/NEVUS - SITE UNSPECIFIED 11/13/2012 DANITA CARD DOFFER, ERIK T 216.9 MOLE/NEVUS - SITE UNSPECIFIED 11/13/2012 DANITA CARD DOFFER ERIK T 216.9 MOLE/NEVUS - SITE UNSPECIFIED 01/31/2014 ERIK SAMAYOA APRN T 486 PNEUMONIA UNSPECIFIED 01/31/2014 DANITA VILLAFANAN ERIK T 599.0 URINARY TRACT INFECTION 01/31/2014 DANITA CARD DOFFERERIK T 486 PNEUMONIA UNSPECIFIED 01/31/2014 DANITA CARD DOFFER, ERIK T 599.0 URINARY TRACT INFECTION 01/31/2014 DANITA CARD DOFFER, ERIK T 486 PNEUMONIA UNSPECIFIED 01/31/2014 DANITA CARD DOFFER, ERIK T 599.0 URINARY TRACT INFECTION 01/31/2014 DANITA CARD DOFFERERIK T 486 PNEUMONIA UNSPECIFIED 01/31/2014 DANITA CARD DOFFER ERIK T 599.0 URINARY TRACT INFECTION 01/31/2014 DANITA VILLAFANAN ERIK T 486 PNEUMONIA UNSPECIFIED 01/31/2014 DANITA CARD DOFFER, ERIK T 599.0 URINARY TRACT INFECTION 01/31/2014 DANITA VILLAFANAN ERIK T 486 PNEUMONIA UNSPECIFIED 01/31/2014 DANITA CARD DOFFER, ERIK T 599.0 URINARY TRACT INFECTION Procedures Code [place] [id number] INR (IN HOUSE) 39568 CULTURE URINE 08/2011 14280 UA W/ CULTURE IF INDICATED 04/10/2012 65816 UA W/ CULTURE IF INDICATED 04/23/2012 80299 INR (IN HOUSE) 03440 INR (IN HOUSE) 38278 INR (IN HOUSE) 89271 INR (IN HOUSE) 93836 INR (IN HOUSE) 20207 INR (IN HOUSE) 24116 INR (IN HOUSE) 59877 INR (IN HOUSE) 69036 INR (IN HOUSE) 35682 INR (IN HOUSE) 64480 INR (IN HOUSE) 70536 ROUTINE VENIPUNCTURE 07/13/2012 26572 INR (IN HOUSE) 63188 CMP 07/13/2012 50979 LIPID PANEL 07/13 50208 TSH 07/13/2012 00981 CBC 07/13/2012 16951 INR (IN HOUSE) 15478 INR (IN HOUSE) 68770 INR (IN HOUSE) 18035 INR (IN HOUSE) 39937 INR (IN HOUSE) 12168 ROUTINE VENIPUNCTURE 02/13/2013 68455 CBC 02/13/2013 72815 CMP 02/13/2013 06889 LIPID PANEL 02/13 [id number] GFR CALC (RESULT ONLY) 02/13/2013 30582 PT/INR 2012 15984 TSH 02/13/2013 47178 INR (IN HOUSE) 00743 INR (IN HOUSE) 23714 ROUTINE VENIPUNCTURE 06/28/2013 41320 PT/INR 2013 67609 INR (IN HOUSE) 33688 INR (IN HOUSE) 85401 CULTURE URINE 02/2014 73817 INR (IN HOUSE) 39343 UA W/ CULTURE IF INDICATED 10/15/2013 24296 INR (IN HOUSE) 19065 CAPILLARY BLOOD DRAW 11/26/2013 10533 CULTURE URINE 32364 UA W/ CULTURE IF INDICATED 01/31/2014 55107 INR (IN HOUSE) 00981 ROUTINE VENIPUNCTURE 02/07/2014 80589 PT/INR 2013 58666 CBC 02/07/2014 [id number] GFR CALC (RESULT ONLY) 02/07/2014 00409 CMP 02/07/2014 38967 LIPID PANEL 02/07 80170 CULTURE URINE 89286 UA W/ CULTURE IF INDICATED 03/03/2014 76831 UA W/ CULTURE IF INDICATED 03/12/2014 37183 CULTURE URINE 11/2013 96958 INR (IN HOUSE) Results Encounters ACCT No. Visit Date/Time Discharge Status Pt. Type Provider Facility Loc./Unit Complaint [id number] 08/13/2014 11:57:00 08/13/2014 23: 59:59 CLS Outpatient ERIK SAMAYOA APRN [id number] 03/12/2014 17:40:00 03/12/2014 23: 59:59 CLS Outpatient ERIK SAMAYOA APRN [id number] 03/03/2014 14:09:00 03/03/2014 23: 59:59 CLS Outpatient ERIK SAMAYOA APRN [id number] 02/07/2014 10:36:00 02/07/2014 23: 59:59 CLS Outpatient ERIK SAMAYOA APRN [id number] 01/31/2014 08:50:00 01/31/2014 23: 59:59 CLS Outpatient ERIK SAMAYOA APRN [id number] 01/31/2014 08:50:00 01/31/2014 23: 59:59 CLS Outpatient ERIK SAMAYOA APRN [id number] 11/26/2013 11:17:00 11/26/2013 23: 59:59 CLS Outpatient ANJEL JORDAN DO [id number] 10/15/2013 11:56:00 10/15/2013 23: 59:59 CLS Outpatient ANJEL JORDAN DO [id number] 09/13/2013 11:33:00 09/13/2013 23: 59:59 CLS Outpatient ANJEL JORDAN DO [id number] 07/12/2013 10:17:00 07/12/2013 23: 59:59 CLS Outpatient ANJEL JORDAN DO [id number] 06/28/2013 11:14:00 06/28/2013 23: 59:59 CLS Outpatient ERIK SAMAYOA APRN [id number] 06/21/2013 10:29:00 06/21/2013 23: 59:59 CLS Outpatient ERIK SAMAYOA APRN [id number] 05/21/2013 13:17:00 05/21/2013 23: 59:59 CLS Outpatient ERIK SAMAYOA APRN [id number] 02/13/2013 11:13:00 02/13/2013 23: 59:59 CLS Outpatient ADELINE HALL MD [id number] 07/13/2012 10:22:00 07/13/2012 23: 59:59 CLS Outpatient ERIK SAMAYOA APRN [id number] 07/06/2012 14:48:00 07/06/2012 23: 59:59 CLS Outpatient [id number] 06/25/2012 11:31:00 06/25/2012 23: 59:59 CLS Outpatient [id number] 06/15/2012 10:49:00 06/15/2012 23: 59:59 CLS Outpatient [id number] 06/01/2012 11:38:00 06/01/2012 23: 59:59 CLS Outpatient ANJEL JORDAN DO [id number] 05/25/2012 11:15:00 05/25/2012 23: 59:59 CLS Outpatient [id number] 05/18/2012 11:19:00 05/18/2012 23: 59:59 CLS Outpatient [id number] 05/11/2012 11:19:00 05/11/2012 23: 59:59 CLS Outpatient [id number] 04/23/2012 11:12:00 04/23/2012 23: 59:59 CLS Outpatient [id number] 01/31/2012 08:57:00 01/31/2012 23: 59:59 CLS Outpatient ERIK SAMAYOA APRN [id number] 01/09/2013 15:27:00 Document Registration [id number] 12/18/2012 16:29:00 Document Registration [id number] 11/13/2012 16:30:00 Document Registration [id number] 10/22/2012 12:01:00 Document Registration [id number] 09/21/2012 12:18:00 Document Registration [id number] 09/03/2012 13:37:00 Document Registration [id number] 07/06/2012 14:48:00 Document Registration
--- OUTSIDE RECORDS SUMMARY | 2016-10-31 16:23 | XMS REPORT ---
Author Author ERIK SAMAYOA Organization [employer] Address Unknown Phone Unavailable Care Team Providers Care Fire Engineer Name Role Phone ERIK SAMAYOA CP Unavailable Allergies No Known Allergies Problems Problem Type Condition ICD-9 Code Onset Dates Condition Status Problem Unspecified [...] Start Date End Date Status Dosage Coumadin [facility] [address]-19 1 MG Orally monday, monday, monday, monday. November 05, 2014 1 tablet Coumadin [facility] [address]-54 2 MG Orally , , Sat 1 tablet Results No Known Results Summary Purpose [employer] Submission
--- OUTSIDE RECORDS SUMMARY | 2016-10-31 16:23 | XMS REPORT ---
Author Author ADELINE HALL [facility] [place] eClinicalWorks Address Unknown Phone Unavailable Care Team Providers Care Fisheries Officer Name Role Phone ADELINE HALL CP Unavailable Allergies, Adverse Reactions, Alerts Substance Reaction Event Type Penicillin V Potassium Info Not Available Drug Allergy Morphine Sulfate Info Not Available Drug Allergy Codeine Sulfate Info Not Available Drug Allergy Aspir-81 Info Not Available Drug Allergy Problems Problem Type Condition Code Onset Dates Condition Status Problem Unspecified episodic mood disorder 296.90 Active Problem Unspecified site of ankle sprain and strain 845.00 Active Problem Pneumonia, organism unspecified 486 Active Assessment UTI (urinary tract infection) N39.0 Active Problem Edema 782.3 Active Problem Urinary tract infection, site not specified 599.0 Active Problem Actinic keratosis 702.0 Active Problem Lower limb amputation, unspecified level V49.70 Active Problem Insomnia, unspecified 780.52 Active Problem Unspecified vitamin D deficiency 268.9 Active Problem Benign neoplasm of skin, site unspecified 216.9 Active Medications Medication Code System Code Instructions Start Date End Date Status Dosage Coumadin [facility] [address]-51 2 MG Orally , , Mon 1 tablet Potassium Chloride ER [facility] 52574590151 8MEQ TAKE 2 TABLETS ONE TIME DAILY WITH FOOD Simvastatin [facility] 62603027514 NA 2 TABLET BY ORAL ROUTE 1 TIME PER DAY Lisinopril [facility] 35919758526 NA TAKE 1 TABLET BY ORAL ROUTE 1 TIME PER DAY Coumadin [facility] [address]-44 1 MG Orally monday, monday, monday, monday. November 05, 2014 1 tablet Zoloft [facility] [address]-96 50 MG Orally Once a day 1 tablet Vitamin D3 [facility] [address]41 1,000 unit Feb 07, 2014 2 capsule by Oral route 1 time per day Cetirizine HCl [facility] 25701539521 10 TAKE ONE TABLET BY MOUTH DAILY Clopidogrel Bisulfate [facility] 43640568587 75MG TAKE 1 TABLET DAILY Metoprolol Succinate ER [facility] 10682296199 NA TAKE 1 TABLET BY ORAL ROUTE 1 TIME PER DAY Potassium [facility] [address]-51 75 MG Orally Once a day 1 tablet Cipro [facility] [address]-39 500 MG Orally Twice a day Feb 10, 2015 Feb 20, 2015 1 tablet Amlodipine Besylate [facility] 21753056439 NA TAKE 1 TABLET BY ORAL ROUTE 1 TIME PER DAY Procedures Procedure Coding System Code Date [facility] VISIT ESTABLISHED PATIENT CPT-4 G0467 Feb 10, 2015 Office Visit, Est Pt., Level 2 CPT-4 34437 Feb 10, 2015 URINALYSIS, AUTO, W/O SCOPE CPT-4 65153 Feb 10, 2015 Vital Signs Date/Time: Feb 10, 2015 Cardiac Monitoring Heart Rate 60 bpm Temperature 98.9 F Height 62 in Blood Pressure Diastolic 62 mmHg Blood Pressure Systolic 98 mmHg Results Name Result Date Reference Range Unit Abnormality Flag UA LONG DIP (IN HOUSE) Summary Purpose eClinicalWorks Submission
--- OUTSIDE RECORDS SUMMARY | 2016-10-31 16:24 | XMS REPORT ---
Author Author ERIK SAMAYOA [facility] eClinicalWorks Address Unknown Phone Unavailable Care Team Providers Care Tire Room Supervisor Name Role Phone ERIK SAMAYOA CP Unavailable [...] Instructions Start Date End Date Status Dosage Folic Acid [facility] [address]-80 1 MG Orally Once a day May 12, 2015 November 08, 2015 1 tablet Results No Known Results Summary Purpose eClinicalWorks Submission
--- OUTSIDE RECORDS SUMMARY | 2016-10-31 16:24 | XMS REPORT ---
Author Author ERIK SAMAYOA [facility] Address [address] [place] [address] Care Team Providers Care Dental Laboratory Technology Teacher Name Role Phone ERIK SAMAYOA Unavailable PROBLEMS Type Condition ICD9-CM Code JDQ44-EX Code Onset Dates Condition Status SNOMED Code Problem Pneumonia, organism unspecified 486 Active 258617415 Problem Insomnia, unspecified 780.52 Active 532788042 Problem Unspecified site of ankle sprain and strain 845.00 Active 70369718 Assessment Anticoagulant long-term use Z79.01 Jan, Active 177666137 Problem Unspecified episodic mood disorder 296.90 Active 620948371 Problem Actinic keratosis 702.0 Active 616379576 Problem Edema 782.3 Active 26326719 Problem Benign neoplasm of skin, site unspecified 216.9 Active 91299457 Problem Lower limb amputation, unspecified level V49.70 Active 046133668 Problem Urinary tract infection, site not specified 599.0 Active 99379199 Problem Unspecified vitamin D deficiency 268.9 Active 03193406 ALLERGIES Unknown Allergies SOCIAL HISTORY No smoking Hx information available PLAN OF CARE VITAL SIGNS MEDICATIONS Unknown Medications RESULTS Name Result Date Reference Range INR (IN HOUSE) 2016-02-02 INR 1.7 1.10 - 3.30 PREVIOUS INR 2.1 CURRENT COUMADIN DOSE 1mg daily NEW COUMADIN DOSE Lot # [id number] Exp date PROCEDURES Procedure Date Ordered Related Diagnosis Body Site PROTHROMBIN TIME Feb 02, 2016 IMMUNIZATIONS No Known Immunizations
--- OUTSIDE RECORDS SUMMARY | 2016-10-31 16:24 | XMS REPORT ---
Author Author ERIK SAMAYOA [facility] eClinicalWorks Address Unknown Phone Unavailable Care Team Providers Care Dairy Farmworker Name Role Phone ERIK SAMAYOA CP Unavailable Allergies, Adverse Reactions, Alerts Substance [...] neoplasm of skin, site unspecified 216.9 Active Assessment Pulmonary congestion R09.89 Active Assessment Congestive heart failure, unspecified congestive heart failure chronicity, unspecified congestive heart failure type I50.9 Active Assessment Cough R05 Active Medications Medication Code System Code Instructions Start Date End Date Status Dosage Coumadin [facility] [address]-58 1 MG Orally monday, monday, monday, monday. November 05, [address] [facility] [address]-20 50 MG Orally Once a day 1 tablet Amlodipine Besylate [facility] 71424032698 NA TAKE 1 TABLET BY ORAL ROUTE 1 TIME PER DAY Vitamin D3 [facility] [address] 1,000 unit Feb 07, 2014 2 capsule by Oral route 1 time per day Clopidogrel Bisulfate [facility] 80531027688 75MG TAKE 1 TABLET DAILY Metoprolol Succinate ER [facility] 98837612718 NA TAKE 1 TABLET BY ORAL ROUTE 1 TIME PER DAY Cetirizine HCl [facility] 35977366812 10 TAKE ONE TABLET BY MOUTH DAILY Lisinopril [facility] 30514256890 NA TAKE 1 TABLET BY ORAL ROUTE 1 TIME PER DAY Guaifenesin [facility] [address]-15 400 MG Orally 4 times a day Apr 29, 2015 1 tablet as needed Potassium Chloride ER [facility] 49008564091 8MEQ TAKE 2 TABLETS ONE TIME DAILY WITH FOOD Potassium [facility] [address]-08 75 MG Orally Once a day [address] [facility] [address]-83 2 MG Orally Tu, Th, Sat [address] [facility] [address]-50 20 MG Orally 2 TABLET BY ORAL ROUTE 1 TIME PER DAY Procedures Procedure Coding System Code Date Office Visit, Est Pt., Level 3 CPT-4 82419 Apr 29, 2015 [facility] EST[facility] PATIENT CPT-4 G0467 Apr 29, 2015 Vital Signs Date/Time: Apr 29, 2015 Cardiac Monitoring Heart Rate 60 bpm Temperature 97.7 F Height 62 in Blood Pressure Diastolic 68 mmHg Blood Pressure Systolic 128 mmHg Results No Known Results Summary Purpose eClinicalWorks Submission
--- OUTSIDE RECORDS SUMMARY | 2016-10-31 16:24 | XMS REPORT ---
Author Author ERIK SAMAYOA Organization eClinicalWorks Address Unknown Phone Unavailable Care Team Providers Care Salesperson Burial Needs Name Role Phone ERIK SAMAYOA CP Unavailable [...] Instructions Start Date End Date Status Dosage Clopidogrel Bisulfate [facility] 66470606765 75MG TAKE 1 TABLET DAILY ( NEEDS A FOLLOW UP APPOINTMENT) Results No Known Results Summary Purpose eClinicalWorks Submission
--- OUTSIDE RECORDS SUMMARY | 2016-10-31 16:24 | XMS REPORT ---
Author Author ERIK SAMAYOA [facility] eClinicalWorks Address Unknown Phone Unavailable Care Team Providers Care Fluorescent Lamp Replacer Name Role Phone ERIK SAMAYOA CP Unavailable Allergies No Known Allergies Problems Problem Type Condition Code Onset Dates Condition Status Problem Pneumonia, organism unspecified 486 Active Problem Insomnia, unspecified 780.52 Active Problem Unspecified site of ankle sprain and strain 845.00 Active Assessment Anticoagulant long-term use Z79.01 Active Problem Unspecified episodic mood disorder 296.90 Active Problem Actinic keratosis 702.0 Active Problem Edema 782.3 Active Problem Anticoagulant long-term use Z79.01 Active Problem Benign neoplasm of skin, site unspecified 216.9 Active Problem Lower limb amputation, unspecified level V49.70 Active Problem Urinary tract infection, site not specified 599.0 Active Problem Unspecified vitamin D deficiency 268.9 Active Medications No Known Medications Procedures Procedure Coding System Code Date PROTHROMBIN TIME CPT-4 73098 Mar 18, 2016 Results Name Result Date Reference Range Unit Abnormality Flag INR (IN HOUSE) ----Exp date 20160318 ----INR 1.3 20160318 1.10 - 3.30 ----PREVIOUS INR 2.1 20160318 ----CURRENT COUMADIN DOSE 1 mg qd [id number] ----Lot # [id number] Summary Purpose eClinicalWorks Submission
--- OUTSIDE RECORDS SUMMARY | 2016-10-31 16:24 | XMS REPORT ---
Author Author ERIK SAMAYOA [facility] Address [address] [place] [address] Care Team Providers Care Post Tensioning Ironworker Name Role Phone ERIK SAMAYOA Unavailable PROBLEMS Type Condition ICD9-CM Code DHJ37-TD Code Onset Dates Condition Status SNOMED Code Problem Pneumonia, organism unspecified 486 Active 473753282 Problem Insomnia, unspecified 780.52 Active 472276421 Problem Unspecified site of ankle sprain and strain 845.00 Active 59880129 Assessment Anticoagulant long-term use Z79.01 Jan, Active 649393226 Problem Unspecified episodic mood disorder 296.90 Active 418196030 Problem Actinic keratosis 702.0 Active 484852814 Problem Edema 782.3 Active 17602235 Problem Benign neoplasm of skin, site unspecified 216.9 Active 48501139 Problem Lower limb amputation, unspecified level V49.70 Active 281005747 Problem Urinary tract infection, site not specified 599.0 Active 24172143 Problem Unspecified vitamin D deficiency 268.9 Active 18784028 ALLERGIES Unknown Allergies SOCIAL HISTORY No smoking Hx information available PLAN OF CARE VITAL SIGNS MEDICATIONS Unknown Medications RESULTS No Results PROCEDURES No Known procedures IMMUNIZATIONS No Known Immunizations
--- OUTSIDE RECORDS SUMMARY | 2016-10-31 16:24 | XMS REPORT ---
Author Author ERIK SAMAYOA [facility] eClinicalWorks Address Unknown Phone Unavailable Care Team Providers Care Investigative Agent Name Role Phone ERIK SAMAYOA CP Unavailable [...] Coding System Code Date PROTHROMBIN TIME CPT-4 88692 Dec 29, 2015 Results No Known Results Summary Purpose eClinicalWorks Submission
--- OUTSIDE RECORDS SUMMARY | 2016-10-31 16:24 | XMS REPORT ---
Author Author ERIK SAMAYOA Organization eClinicalWorks Address Unknown Phone Unavailable Care Team Providers Care Career Development Manager Name Role Phone ERIK SAMAYOA CP Unavailable [...]
--- OUTSIDE RECORDS SUMMARY | 2016-10-31 16:24 | XMS REPORT ---
Author Author ERIK SAMAYOA [facility] eClinicalWorks Address Unknown Phone Unavailable Care Team Providers Care Needle Punch Machine Operator Helper Name Role Phone ERIK SAMAYOA CP Unavailable [...] Coding System Code Date PROTHROMBIN TIME CPT-4 39702 Feb 10, 2016 Results Name Result Date Reference Range Unit Abnormality Flag INR (IN HOUSE) ----Exp date [id number] ----INR 2.1 20160210 1.10 - 3.30 ----PREVIOUS INR 1.7 20160210 ----CURRENT COUMADIN DOSE 1 mg qd 20160210 ----Lot # [id number] Summary Purpose eClinicalWorks Submission
--- OUTSIDE RECORDS SUMMARY | 2016-10-31 16:24 | XMS REPORT ---
Author Author ERIK SAMAYOA [facility] eClinicalWorks Address Unknown Phone Unavailable Care Team Providers Care Associate Director Of Biostatistics Name Role Phone ERIK SAMAYOA CP Unavailable Allergies No Known Allergies Problems Problem Type Condition Code Onset Dates Condition Status Problem Unspecified episodic mood disorder 296.90 Active Problem Unspecified site of ankle sprain and strain 845.00 Active Problem Pneumonia, organism unspecified 486 Active Assessment Hematuria R31.9 Active Problem Edema 782.3 Active Problem Urinary tract infection, site not specified 599.0 Active Problem Actinic keratosis 702.0 Active Problem Lower limb amputation, unspecified level V49.70 Active Problem Insomnia, unspecified 780.52 Active Problem Unspecified vitamin D deficiency 268.9 Active Problem Benign neoplasm of skin, site unspecified 216.9 Active Medications No Known Medications Procedures Procedure Coding System Code Date URINALYSIS, AUTO, W/O SCOPE CPT-4 56096 Apr 06, 2015 PROTHROMBIN TIME CPT-4 76292 Apr 06, 2015 Results No Known Results Summary Purpose [employer] PBCinicalWorks Submission
--- OUTSIDE RECORDS SUMMARY | 2016-10-31 16:24 | XMS REPORT ---
Author Author ERIK SAMAYOA Organization eClinicalWorks Address Unknown Phone Unavailable Care Team Providers Care Boatswains Mate Name Role Phone ERIK SAMAYOA CP Unavailable [...] Start Date End Date Status Dosage Coumadin [facility] [address]-49 1 MG Orally monday, monday, monday, monday. November 05, 2014 1 tablet Coumadin [facility] [address]-78 2 MG Orally , Th, Sat 1 tablet Results No Known Results Summary Purpose eClinicalWorks Submission
--- OUTSIDE RECORDS SUMMARY | 2016-10-31 16:24 | XMS REPORT ---
Author Author ERIK SAMAYOA Organization eClinicalWorks Address Unknown Phone Unavailable Care Team Providers Care Meat Hanger Name Role Phone ERIK SAMAYOA CP Unavailable [...] Coding System Code Date PROTHROMBIN TIME CPT-4 29849 Mar 18, 2015 Results Name Result Date Reference Range Unit Abnormality Flag INR (IN HOUSE) Summary Purpose eClinicalWorks Submission
--- OUTSIDE RECORDS SUMMARY | 2016-10-31 16:24 | XMS REPORT ---
Author Author ERIK SAMAYOA [facility] Address [address] [place] [address] Care Team Providers Care Sld Educational Aide Name Role Phone ERIK SAMAYOA Unavailable PROBLEMS Type Condition ICD9-CM Code KHC97-AM Code Onset Dates Condition Status SNOMED Code Problem Unspecified site of ankle sprain and strain 845.00 Active 09711252 Problem Lower limb amputation, unspecified level V49.70 Active 359621350 Problem Insomnia, unspecified 780.52 Active 118286408 Assessment Anticoagulant long-term use Z79.01 Apr, Active 619114340 Problem Unspecified episodic mood disorder 296.90 Active 604274267 Problem Pneumonia, organism unspecified 486 Active 635502414 Problem Anticoagulant long-term use Z79.01 Active 359423930 Problem Actinic keratosis 702.0 Active 425831111 Problem Unspecified vitamin D deficiency 268.9 Active 30391753 Problem Benign neoplasm of skin, site unspecified 216.9 Active 78251580 Problem Edema 782.3 Active 06407455 Problem Urinary tract infection, site not specified 599.0 Active 69057236 ALLERGIES Unknown Allergies SOCIAL HISTORY No smoking Hx information available PLAN OF CARE VITAL SIGNS MEDICATIONS Unknown Medications RESULTS Name Result Date Reference Range INR (IN HOUSE) 2016-04-19 INR 7.3/7.2 1.10 - 3.30 PREVIOUS INR 1.3 CURRENT COUMADIN DOSE 2 mg qd NEW COUMADIN DOSE stop coumadin until INR on 04/22/16 Lot # [id number] Exp date PROCEDURES Procedure Date Ordered Related Diagnosis Body Site PROTHROMBIN TIME Apr 19, 2016 IMMUNIZATIONS No Known Immunizations
--- OUTSIDE RECORDS SUMMARY | 2016-10-31 16:24 | XMS REPORT ---
Author Author ERIK SAMAYOA Organization eClinicalWorks Address Unknown Phone Unavailable Care Team Providers Care Lending Manager Name Role Phone ERIK SAMAYOA CP Unavailable Allergies No Known Allergies Problems Problem Type Condition Code Onset Dates Condition Status Problem Unspecified episodic mood disorder 296.90 Active Problem Unspecified site of ankle sprain and strain 845.00 Active Problem Pneumonia, organism unspecified 486 Active Assessment Pulmonary congestion R09.89 Active Assessment Congestive heart failure, unspecified congestive heart failure chronicity, unspecified congestive heart failure type I50.9 Active Problem Edema 782.3 Active Problem Urinary tract infection, site not specified 599.0 Active Problem Actinic keratosis 702.0 Active Problem Lower limb amputation, unspecified level V49.70 Active Problem Insomnia, unspecified 780.52 Active Problem Unspecified vitamin D deficiency 268.9 Active Problem Benign neoplasm of skin, site unspecified 216.9 Active Medications No Known Medications Procedures Procedure Coding System Code Date VENIPUNCT, ROUTINE* CPT-4 53223 May 11, 2015 LAB NOT BILLED BY [facility] CPT-4 NOBLL May 11, 2015 Results No Known Results Summary Purpose eClinicalWorks Submission
--- OUTSIDE RECORDS SUMMARY | 2016-10-31 16:25 | XMS REPORT ---
Author Author ERIK SAMAYOA Organization eClinicalWorks Address Unknown Phone Unavailable Care Team Providers Care Vice President Pharmacy Name Role Phone ERIK SAMAYOA CP Unavailable [...]
--- OUTSIDE RECORDS SUMMARY | 2016-10-31 16:25 | XMS REPORT ---
Author Author ERIK SAMAYOA Organization eClinicalWorks Address Unknown Phone Unavailable Care Team Providers Care Fermenting Cellars Supervisor Name Role Phone ERIK SAMAYOA CP [...]
--- OUTSIDE RECORDS SUMMARY | 2016-10-31 16:25 | XMS REPORT ---
Author Author ERIK SAMAYOA Organization eClinicalWorks Address Unknown Phone Unavailable Care Team Providers Care Offbearer Sewer Pipe Name Role Phone ERIK SAMAYOA CP Unavailable [...]
--- OUTSIDE RECORDS SUMMARY | 2016-10-31 16:25 | XMS REPORT ---
Author Author ERIK SAMAYOA Organization eClinicalWorks Address Unknown Phone Unavailable Care Team Providers Care Talent Buyer Name Role Phone ERIK SAMAYOA CP Unavailable [...] Instructions Start Date End Date Status Dosage Valium [facility] [address]-84 2 MG Orally Once a day October 15, 2014 1 tablet as needed Results No Known Results Summary Purpose eClinicalWorks Submission
--- OUTSIDE RECORDS SUMMARY | 2016-10-31 16:25 | XMS REPORT ---
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 Problem Edema 782.3 Active Problem Urinary tract infection, site not specified 599.0 Active Problem Actinic keratosis 702.0 Active Problem Lower limb amputation, unspecified level V49.70 Active Problem Insomnia, unspecified 780.52 Active Problem Unspecified vitamin D deficiency 268.9 Active Problem Benign neoplasm of skin, site unspecified 216.9 Active Medications Medication Code System Code Instructions Start Date End Date Status Dosage Simvastatin [facility] 62381170418 NA 2 TABLET BY ORAL ROUTE 1 TIME PER DAY Cetirizine HCl [facility] 17413511832 10 TAKE ONE TABLET BY MOUTH DAILY Clopidogrel Bisulfate [facility] 08093474171 75MG TAKE 1 TABLET DAILY Potassium [facility] [address]-23 75 MG Orally Once a day 1 tablet Metoprolol Succinate ER [facility] 03913202929 NA TAKE 1 TABLET BY ORAL ROUTE 1 TIME PER DAY Coumadin [facility] [address]-02 2 MG Orally , , Mon 1 tablet Coumadin [facility] [address]-64 1 MG Orally monday, monday, monday, monday. November 05, 2014 1 tablet Amlodipine Besylate [facility] 53278478279 NA TAKE 1 TABLET BY ORAL ROUTE 1 TIME PER DAY Lisinopril [facility] 04718088033 NA TAKE 1 TABLET BY ORAL ROUTE 1 TIME PER DAY Potassium Chloride ER [facility] 73857879922 8MEQ TAKE 2 TABLETS ONE TIME DAILY WITH FOOD Zoloft [facility] [address]-38 50 MG Orally Once a day 1 tablet Vitamin D3 [facility] 26701-27710 1,000 unit Feb 07, 2014 2 capsule by Oral route 1 time per day Procedures Procedure Coding System Code Date Office Visit, Est Pt., Level 3 CPT-4 00182 Feb 27, 2015 [facility] VISIT ESTABLISHED PATIENT CPT-4 G0467 Feb 27, 2015 Vital Signs Date/Time: Feb 27, 2015 Temperature 97.4 F Weight 135.3 lbs Height 62 in BMI 24.74 Index Blood Pressure Diastolic 68 mmHg Blood Pressure Systolic 110 mmHg Cardiac Monitoring Heart Rate 74 bpm Results No Known Results Summary Purpose eClinicalWorks Submission
--- OUTSIDE RECORDS SUMMARY | 2016-10-31 16:25 | XMS REPORT ---
Author Author ERIK SAMAYOA Organization eClinicalWorks Address Unknown Phone Unavailable Care Team Providers Care Customer Leader Name Role Phone ERIK SAMAYOA CP Unavailable [...]
--- OUTSIDE RECORDS SUMMARY | 2016-10-31 16:25 | XMS REPORT ---
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 Assessment Hematuria R31.9 Active Problem Edema [...] Instructions Start Date End Date Status Dosage Metoprolol Succinate ER [facility] 86028490008 NA TAKE 1 TABLET BY ORAL ROUTE 1 TIME PER DAY Clopidogrel Bisulfate [facility] 47432592778 75MG TAKE 1 TABLET DAILY Potassium [facility] [address]-54 75 MG Orally Once a day 1 tablet Bactrim DS [facility] [address]-80 800-160 MG Orally 2 times a day Mar 20, 2015 Mar 30, 2015 1 tablet Cetirizine HCl [facility] 02423074835 10 TAKE ONE TABLET BY MOUTH DAILY Coumadin [facility] [address]-73 1 MG Orally monday, monday, monday, monday. November 05, 2014 1 tablet Simvastatin [facility] [address]-15 20 MG Orally 2 TABLET BY ORAL ROUTE 1 TIME PER DAY Coumadin [facility] [address]-22 2 MG Orally , , Mon 1 tablet Potassium Chloride ER [facility] 22002683187 8MEQ TAKE 2 TABLETS ONE TIME DAILY WITH FOOD Zoloft [facility] [address]-40 50 MG Orally Once a day 1 tablet Amlodipine Besylate [facility] 28628948778 NA TAKE 1 TABLET BY ORAL ROUTE 1 TIME PER DAY Lisinopril [facility] 33956010804 NA TAKE 1 TABLET BY ORAL ROUTE 1 TIME PER DAY Vitamin D3 [facility] [address]73 1,000 unit Feb 07, 2014 2 capsule by Oral route 1 time per day Procedures Procedure Coding System Code Date [facility] VISIT ESTABLISHED PATIENT CPT-4 G0467 Mar 20, 2015 Office Visit, Est Pt., Level 3 CPT-4 84825 Mar 20, 2015 URINALYSIS, AUTO, W/O SCOPE CPT-4 31527 Mar 20, 2015 Vital Signs Date/Time: Mar 20, 2015 Cardiac Monitoring Heart Rate 56 bpm Temperature 97.6 F Height 62 in Blood Pressure Diastolic 66 mmHg Blood Pressure Systolic 124 mmHg Results Name Result Date Reference Range Unit Abnormality Flag UA LONG DIP (IN HOUSE) Summary Purpose eClinicalWorks Submission
--- OUTSIDE RECORDS SUMMARY | 2016-10-31 16:29 | XMS REPORT | Continuity of Care Document ---
Author Author [facility] Address Unknown Phone Unavailable Allergies Active [...] Type Code Diagnosis Diagnosed By 03/26/2008 ERIK SAMAYOA APRN 845.00 SPRAIN/STRAIN ANKLE [...] CHRISTIANSON, ADELINE 845.00 SPRAIN/STRAIN ANKLE 03/26/2008 DANITA ASSOCIATE MEDIA DIRECTOR, ERIK T 845.00 SPRAIN/STRAIN ANKLE 03/26/2008 ERIK [...] 894.0 WOUND OPEN LOWER LIMB 05/05/2008 DANITA ASSOCIATE MEDIA DIRECTOR, ERIK T 401.1 HYPERTENSION, BENIGN ESSENTIAL 05/05/2008 DANITA ASSOCIATE MEDIA DIRECTOR, ERIK T 894.0 WOUND OPEN LOWER LIMB 05/05/2008 DANITA ASSOCIATE MEDIA DIRECTOR, ERIK T 401.1 HYPERTENSION, BENIGN ESSENTIAL 05/05/2008 DANITA ASSOCIATE MEDIA DIRECTOR, ERIK T 894.0 WOUND OPEN LOWER LIMB 05/05/2008 DANITA ASSOCIATE MEDIA DIRECTOR, ERIK T 401.1 HYPERTENSION, BENIGN ESSENTIAL 05/05/2008 DANITA ASSOCIATE MEDIA DIRECTOR, ERIK T 894.0 WOUND OPEN LOWER LIMB 05/05/2008 DANITA ASSOCIATE MEDIA DIRECTOR, ERIK T 401.1 HYPERTENSION, BENIGN ESSENTIAL 05/05/2008 DANITA ASSOCIATE MEDIA DIRECTOR, ERIK T 894.0 WOUND OPEN LOWER LIMB 05/05/2008 DANITA ASSOCIATE MEDIA DIRECTOR, ERIK T 401.1 HYPERTENSION, BENIGN ESSENTIAL 05/05/2008 DANITA ASSOCIATE MEDIA DIRECTOR, ERIK T 894.0 WOUND OPEN LOWER LIMB 05/05/2008 DANITA ASSOCIATE MEDIA DIRECTOR, ERIK T 401.1 HYPERTENSION, BENIGN ESSENTIAL 05/05/2008 DANITA ASSOCIATE MEDIA DIRECTOR, ERIK T 894.0 WOUND OPEN LOWER LIMB [...] ANJEL K 692.9 DERMATITIS 10/23/2008 JORDAN DO, AJNEL K 599.0 URINARY TRACT INFECTION 10/23/2008 JORDAN DO, ANJEL K 692.9 DERMATITIS 10/23/2008 JORDAN DO, ANJEL K 599.0 URINARY TRACT INFECTION 10/23/2008 JORDAN DO, ANJEL K 692.9 DERMATITIS 10/23/2008 ERIK SAMAYOA APRN 599.0 URINARY TRACT INFECTION 10/23/2008 ERIK SAMAYOA APRN 692.9 DERMATITIS 10/23/2008 DANITA ASSOCIATE MEDIA DIRECTOR, ERIK T 599.0 URINARY TRACT INFECTION 10/23/2008 DANITA VILLAFANAN, ERIK T 692.9 DERMATITIS 10/23/2008 DANITA VILLAFANAN, ERIK T 599.0 URINARY TRACT INFECTION 10/23/2008 DANITA VILLAFANAN, ERIK T 692.9 DERMATITIS 10/23/2008 DANITA ASSOCIATE MEDIA DIRECTOR, ERIK T 599.0 URINARY TRACT INFECTION 10/23/2008 [...] APRN 110.4 Tinea Pedis 04/20/2009 JORDAN DO, ANJEL K 110.4 Tinea Pedis 04/20/2009 JORDAN DO, ANJEL K 110.4 Tinea Pedis 04/20/2009 JORDAN DO, ANJEL K 110.4 Tinea Pedis 04/20/2009 JORDAN DO, ANJEL K 110.4 Tinea Pedis 04/20/2009 DANITA ASSOCIATE MEDIA DIRECTORERIK T 110.4 Tinea Pedis 04/20/2009 DANITA ASSOCIATE MEDIA DIRECTORERIK T 110.4 Tinea Pedis 04/20/2009 DANITA VILLAFANANERIK T 110.4 Tinea Pedis 04/20/2009 DANITA ASSOCIATE MEDIA DIRECTORERIK T 110.4 Tinea Pedis 04/20/2009 DANITA ASSOCIATE MEDIA DIRECTORERIK T 110.4 Tinea Pedis 04/20/2009 DANITA ASSOCIATE MEDIA DIRECTORERIK T 110.4 Tinea Pedis 05/22/2009 ERIK SAMAYOA [...] ERIK SAMAYOA APRN 477.9 RHINITIS 01/14/2011 ERIK SAMAOYA APRN 477.9 RHINITIS 01/14/2011 JORDAN DO, ANJEL [...] APRN T 599.0 URINARY TRACT INFECTION 04/10/2012 JORDNA DO, ANJEL K 599.0 URINARY TRACT INFECTION [...] SAMAYOA APRN T 702.0 ACTINIC KERATOSIS 07/06/2012 EIRK SAMAYOA APRN T 782.3 EDEMA 07/06/2012 ERIK [...] 216.9 MOLE/NEVUS - SITE UNSPECIFIED 11/13/2012 DANITA ASSOCIATE MEDIA DIRECTOR ERIK T 216.9 MOLE/NEVUS - SITE UNSPECIFIED 11/13/2012 DANITA ASSOCIATE MEDIA DIRECTOR, ERIK T 216.9 MOLE/NEVUS - SITE UNSPECIFIED 11/13/2012 DANITA ASSOCIATE MEDIA DIRECTOR, ERIK T 216.9 MOLE/NEVUS - SITE UNSPECIFIED 11/13/2012 DANITA ASSOCIATE MEDIA DIRECTOR, ERIK T 216.9 MOLE/NEVUS - SITE UNSPECIFIED 11/13/2012 DANITA ASSOCIATE MEDIA DIRECTOR, ERIK T 216.9 MOLE/NEVUS - SITE UNSPECIFIED 11/13/2012 DANITA ASSOCIATE MEDIA DIRECTOR ERIK T 216.9 MOLE/NEVUS - SITE UNSPECIFIED 01/31/2014 ERIK SAMAYOA APRN T 486 PNEUMONIA UNSPECIFIED 01/31/2014 DANITA VILLAFANAN ERIK T 599.0 URINARY TRACT INFECTION 01/31/2014 DANITA ASSOCIATE MEDIA DIRECTORERIK T 486 PNEUMONIA UNSPECIFIED 01/31/2014 DANITA ASSOCIATE MEDIA DIRECTOR, ERIK T 599.0 URINARY TRACT INFECTION 01/31/2014 DANITA ASSOCIATE MEDIA DIRECTOR, ERIK T 486 PNEUMONIA UNSPECIFIED 01/31/2014 DANITA ASSOCIATE MEDIA DIRECTOR, ERIK T 599.0 URINARY TRACT INFECTION 01/31/2014 DANITA ASSOCIATE MEDIA DIRECTORERIK T 486 PNEUMONIA UNSPECIFIED 01/31/2014 DANITA ASSOCIATE MEDIA DIRECTOR ERIK T 599.0 URINARY TRACT INFECTION 01/31/2014 DANITA VILLAFANAN ERIK T 486 PNEUMONIA UNSPECIFIED 01/31/2014 DANITA ASSOCIATE MEDIA DIRECTOR, ERIK T 599.0 URINARY TRACT INFECTION 01/31/2014 DANITA VILLAFANAN ERIK T 486 PNEUMONIA UNSPECIFIED 01/31/2014 DANITA ASSOCIATE MEDIA DIRECTOR, ERIK T 599.0 URINARY TRACT INFECTION Procedures Code [place] [address] INR (IN HOUSE) 21824 CULTURE URINE 08/2011 14471 UA W/ CULTURE IF INDICATED 04/10/2012 08338 UA W/ CULTURE IF INDICATED 04/23/2012 40337 INR (IN HOUSE) 03201 INR (IN HOUSE) 37925 INR (IN HOUSE) 45457 INR (IN HOUSE) 77648 INR (IN HOUSE) 62073 INR (IN HOUSE) 34196 INR (IN HOUSE) 46439 INR (IN HOUSE) 96420 INR (IN HOUSE) 66849 INR (IN HOUSE) 16823 INR (IN HOUSE) 96667 ROUTINE VENIPUNCTURE 07/13/2012 76932 INR (IN HOUSE) 07612 CMP 07/13/2012 88748 LIPID PANEL 07/13 70750 TSH 07/13/2012 48369 CBC 07/13/2012 54254 INR (IN HOUSE) 38600 INR (IN HOUSE) 22888 INR (IN HOUSE) 77590 INR (IN HOUSE) 97275 INR (IN HOUSE) 00952 ROUTINE VENIPUNCTURE 02/13/2013 87058 CBC 02/13/2013 31485 CMP 02/13/2013 51912 LIPID PANEL 02/13 [id number] GFR CALC (RESULT ONLY) 02/13/2013 03542 PT/INR 2012 08675 TSH 02/13/2013 81774 INR (IN HOUSE) 27566 INR (IN HOUSE) 75119 ROUTINE VENIPUNCTURE 06/28/2013 12090 PT/INR 2013 92265 INR (IN HOUSE) 11131 INR (IN HOUSE) 48910 CULTURE URINE 02/2014 73939 INR (IN HOUSE) 92130 UA W/ CULTURE IF INDICATED 10/15/2013 70535 INR (IN HOUSE) 71102 CAPILLARY BLOOD DRAW 11/26/2013 43370 CULTURE URINE 00674 UA W/ CULTURE IF INDICATED 01/31/2014 95563 INR (IN HOUSE) 06272 ROUTINE VENIPUNCTURE 02/07/2014 96016 PT/INR 2013 47825 CBC 02/07/2014 [id number] GFR CALC (RESULT ONLY) 02/07/2014 32229 CMP 02/07/2014 15213 LIPID PANEL 02/07 04616 CULTURE URINE 41804 UA W/ CULTURE IF INDICATED 03/03/2014 11965 UA W/ CULTURE IF INDICATED 03/12/2014 37732 CULTURE URINE 11/2013 40846 INR (IN HOUSE) Results Encounters ACCT No. Visit Date/Time Discharge Status Pt. Type Provider Facility Loc./Unit Complaint [id number] 08/13/2014 11:57:00 08/13/2014 23: 59:59 CLS Outpatient ERIK SAMAYOA APRN [id number] 03/12/2014 17:40:00 03/12/2014 23: 59:59 CLS Outpatient ERIK SAMAYOA APRN [id number] 03/03/2014 14:09:00 03/03/2014 23: 59:59 CLS Outpatient ERIK SAMAYOA APRN [id number] 02/07/2014 10:36:00 02/07/2014 23: 59:59 CLS Outpatient ERIK SAMAYOA APRN [id number] 01/31/2014 08:50:00 01/31/2014 23: 59:59 CLS Outpatient ERIK SAMAYOA APRN [id number] 01/31/2014 08:50:00 01/31/2014 23: 59:59 CLS Outpatient ERIK SAMAYOA APRN [id number] 11/26/2013 11:17:00 11/26/2013 23: 59:59 CLS Outpatient ANJEL JORDAN DO [id number] 10/15/2013 11:56:00 10/15/2013 23: 59:59 CLS Outpatient ANJEL JORDAN DO [id number] 09/13/2013 11:33:00 09/13/2013 23: 59:59 CLS Outpatient ANJEL JORDAN DO [id number] 07/12/2013 10:17:00 07/12/2013 23: 59:59 CLS Outpatient ANJEL JORDAN DO [id number] 06/28/2013 11:14:00 06/28/2013 23: 59:59 CLS Outpatient ERIK SAMAYOA APRN [id number] 06/21/2013 10:29:00 06/21/2013 23: 59:59 CLS Outpatient ERIK SAMAYOA APRN [id number] 05/21/2013 13:17:00 05/21/2013 23: 59:59 CLS Outpatient ERIK SAMAYOA APRN [id number] 02/13/2013 11:13:00 02/13/2013 23: 59:59 CLS Outpatient ADELINE HALL MD [id number] 07/13/2012 10:22:00 07/13/2012 23: 59:59 CLS Outpatient ERIK SAMAYOA APRN [id number] 07/06/2012 14:48:00 07/06/2012 23: 59:59 CLS Outpatient [id number] 06/25/2012 11:31:00 06/25/2012 23: 59:59 CLS Outpatient [id number] 06/15/2012 10:49:00 06/15/2012 23: 59:59 CLS Outpatient [id number] 06/01/2012 11:38:00 06/01/2012 23: 59:59 CLS Outpatient ANJEL JORDAN DO [id number] 05/25/2012 11:15:00 05/25/2012 23: 59:59 CLS Outpatient [id number] 05/18/2012 11:19:00 05/18/2012 23: 59:59 CLS Outpatient [id number] 05/11/2012 11:19:00 05/11/2012 23: 59:59 CLS Outpatient [id number] 04/23/2012 11:12:00 04/23/2012 23: 59:59 CLS Outpatient [id number] 01/31/2012 08:57:00 01/31/2012 23: 59:59 CLS Outpatient ERIK SAMAYOA APRN [id number] 01/09/2013 15:27:00 Document Registration [id number] 12/18/2012 16:29:00 Document Registration [id number] 11/13/2012 16:30:00 Document Registration [id number] 10/22/2012 12:01:00 Document Registration [id number] 09/21/2012 12:18:00 Document Registration [id number] 09/03/2012 13:37:00 Document Registration [id number] 07/06/2012 14:48:00 Document Registration
[2016-10-31 20:46] VITALS: BP 152/67
[2016-10-31] MEDS: warFARin 1 MG (COUMADIN) TAB PO SCH (21:21)
[2016-10-31] MEDS: CLOPIDOGREL 75 MG (PLAVIX) TABLET PO SCH (21:21)
[2016-11-01] VITALS: BP 162/58
[2016-11-01] MEDS: cefTRIAXone INJECTION 1,000 MG in NS (IVPB) 50 ML IV SCH (02:51)
[2016-11-01 04:00] VITALS: BP 164/72
[2016-11-01] MEDS: D5 1/2 NS 1000 ML IV SOLUTION 1,000 ML IV SCH (06:40)
--- NOTE | 2016-11-01 07:40 | Discharge Summary ---
Diagnosis/Chief Complaint Date of Admission Oct 29, 2016 at 03:20 Date of Discharge November 01, 2016 Admission Diagnosis Admission Diagnosis 1. Respiratory distress most likely secondary to right lower lobe infiltrate 2. Hypoxemia secondary to number 1 3. COPD 4. Hypomagnesemia 5. Colostomy due to complications of treatment cervical cancer Discharge Diagnosis 1. Respiratory distress secondary to right lower lobe infiltrate (pneumonia) 2. Hypoxemia secondary to number 1 3. COPD 4. Hypomagnesemia 5. Colostomy due to complications of treatment cervical cancer Chief Complaint/HPI Chief Complaint/HPI 71-year-old female presents to [facility] emergency department during the late evening of October 28, 2016 via EMS with shortness of breath. Patient admits the shortness of breath started about 5 or 6 p.m. on October 28. She has had fevers off and on with sweats. She apparently has had a nonproductive cough over the past several weeks. She does have COPD and does admit to smoking 1 pack per day. She denies any chest pain or swelling of the lower extremities. She informs me she has a resistant urinary tract infection bacteria and she was started on Macrobid today. She does seek care at [facility] and does see Heriberto Perez. Discharge Summary-Simple/Stand Consultations Discharge Physical Examination Allergies: Coded Allergies: aspirin (Verified Allergy, Unknown, 09/09/05) codeine (Verified Allergy, Unknown, NO ALLERGY TO MORPHINE, 11/24/08) penicillin G (Verified Allergy, Unknown, 09/09/05) Uncoded Allergies: METALS (Allergy, Mild, RASHES, 05/22/06) Vitals & I&Os Vital Sign - Last 12Hours Date Time Temp Pulse Resp B/P (MAP) Pulse Ox O2 Delivery O2 Flow Rate FiO2 11/01/16 04:00 97.2 51 20 164/72 94 Nasal Cannula 2.00 Intake and Output 11/01/16 00:00 Intake Total 2680 ml Output Total 400 ml Balance 2280 ml General Appearance: No Acute Distress HEENT: Mucous Memb Moist/[place] Respiratory: Clear to Auscultation (Except for only minor rhonchi in the apical areas) Cardiovascular: Regular Rate Abdominal: Soft Extremities: No Edema Skin: No Rashes Hospital Course See final discharge diagnosis. Patient was admitted initially on October 31 with a diagnosis of right lower lobe infiltrate or pneumonia. She received IV fluids along with IV ceftriaxone and IV Zithromax initially. Ultimately the Zithromax was switched to oral. Her temperature curve improved. She was noted to have a slight bump in her white blood cell count on October 30 but this was felt to be steroid effect.on the day of dismissal of November 01 patient stated she felt very well. She had no shortness of breath. All questions were answered and she will follow-up with [facility] within the week with Heriberto Perez. Discharge Instructions to patient/family Please see electonic discharge instructions given to patient. Discharge Medications Reviewed and agree with Discharge Medication list on patient's Discharge Instruction sheet Clinical Quality Measures DVT/VTE Risk/Contraindication: Risk Factor Score Per Nursin RFS Level Per Nursing on Admit: 4+=Very High MONIKA SALAZAR MD Nov 01, 2016 07:40
[2016-11-01] MEDS ORDERED: PRD20T PO (07:44)
[2016-11-01] MEDS ORDERED: CEFU500T63 PO (07:44)
--- NOTE | 2016-11-01 07:46 | Discharge Inst-Simple/Standard ---
Discharge Inst-Standard Discharge Medications New, Converted or Re-Newed RX: Transmitted to Pharmacy Patient Instructions/Follow Up Plan of Care/Instructions/FU: with Heriberto Perez at [facility] within the week for pneumonia fu. Activity as Tolerated: Yes Discharge Diet: Low Sodium Diet Return to The Hospital For: Fever greater than 101 or cough worsens MONIKA SALAZAR MD Nov 01, 2016 07:46
[2016-11-01 08:00] VITALS: BP 162/70
[2016-11-01] MEDS: AZITHROMYCIN 250 MG TAB (ZITHROMAX) PO SCH (08:47)
[2016-11-01] MEDS: SIMvastatin 20 MG (ZOCOR) TAB PO SCH (08:47)
[2016-11-01] MEDS: KCL 20 MEQ TAB (K-DUR) PO SCH (08:47)
[2016-11-01] MEDS: NICOTINE 14 MG (NICODERM) PATCH TD SCH (08:47)
[2016-11-01] MEDS: PARoxetine 10 MG (PAXIL) TAB PO SCH (08:47)
[2016-11-01] MEDS: NICOTINE PATCH REMOVAL TP SCH (08:48)
[2016-11-02] MEDS ORDERED: warFARin 2 MG (COUMADIN) TAB PO SCH (21:00)
== END 2016-11-01 10:36 | disposition home or self-care (01) | DRG 190 ==
LOC: EDUNIT# 02:41 → ER 02:43 → 4TH 03:20
PROVIDERS: ADMIT Family Medicine; ATTEND Family Medicine
DX: J44.0 Chronic obstructive pulmonary disease with (acute) lower respiratory infection (principal); J18.9 Pneumonia, unspecified organism; R09.02 Hypoxemia; N39.0 Urinary tract infection, site not specified; F17.210 Nicotine dependence, cigarettes, uncomplicated; I73.9 Peripheral vascular disease, unspecified; E78.00 Pure hypercholesterolemia, unspecified; I10 Essential (primary) hypertension; F32.9 Major depressive disorder, single episode, unspecified; E83.42 Hypomagnesemia; Z93.3 Colostomy status; Z89.611 Acquired absence of right leg above knee; Z85.41 Personal history of malignant neoplasm of cervix uteri; Z92.3 Personal history of irradiation; Z92.21 Personal history of antineoplastic chemotherapy
CPT/HCPCS: 36415; 71010; 80048; 80053; 81000; 82550; 82553; 83605; 83735; 83880; 84484; 85007; 85025; 85027; 85610; 85730; 87040; 93005; 93041; 94640; 94664; 94760; 96365; 96375

== ENCOUNTER 2018-12-05 09:44 | Inpatient (IN) | payer MEDICARE, OTHER ==
[~2018-12-05] VITALS: Ht 157.5 cm; Wt 57.4 kg
[~2018-12-05 09:44] MED LIST changes: +AMLO10TA7 PO; +CEFU500T63 PO; +CLOP75TA28 PO; +FOLI1TAB24 PO; +LISI10TA2 PO; +METO-352 PO; +MONT10TA24 PO; +NITR100C10 PO; +PARO10TA3 PO; +POTA20TA8 PO; +PRD20T PO; +SIMV20TA3 PO; +WARF-47 PO; +WARF1TAB82 PO
[2018-12-05] MEDS ORDERED: LACTATED RINGERS 1,000 ML IV ONE (09:54)
[2018-12-05] MEDS ORDERED: ACETAMINOPHEN 500 MG TAB (TYLENOL) PO PRN ×2 (10:00→12:00)
[2018-12-05] MEDS ORDERED: RT-ALBUTEROL/IPRATROPIUM 3 ML (DUONEB) VIAL INH ONE (10:00)
[2018-12-05 10:02] LABS: BASOPHILS % (AUTO) 0 % (0-10); EOSINOPHILS # (AUTO) 0.2 10^3/uL (0.0-0.3); EOSINOPHILS % (AUTO) 1 % (0-10); HEMATOCRIT 41 % (35-52); HEMOGLOBIN 13.9 G/DL (11.5-16.0); LYMPHOCYTES # (AUTO) 1.9 X 10^3 (1.0-4.0); LYMPHOCYTES % (AUTO) 14 % (12-44); MEAN CORPUSCULAR HEMOGLOBIN 31 PG (25-34); MEAN CORPUSCULAR HGB CONC 34 G/DL (32-36); MEAN CORPUSCULAR VOLUME 90 FL (80-99); MEAN PLATELET VOLUME 10.8 FL (7.4-10.4); MONOCYTES # (AUTO) 1.7 X 10^3 (0.0-1.0); MONOCYTES % (AUTO) 13 % (0-12); NEUTROPHILS % (AUTO) 72 % (42-75); PLATELET COUNT 174 10^3/uL (130-400); RED CELL DISTRIBUTION WIDTH 13.3 % (10.0-14.5); WHITE BLOOD COUNT 13.8 10^3/uL (4.3-11.0)
[2018-12-05] MEDS ORDERED: RT-ALBUTEROL SULF 2.5 MG/3 ML PRE-MIX VIAL ONE (10:20)
--- NOTE | 2018-12-05 10:20 | Diagnostic Imaging Report ---
INDICATION: Dyspnea Portable upright AP view of the chest is obtained. Comparison is made to the study of 10/29/2016. There is obscuration of the right heart border indicating pneumonitis or possible pneumonia in the right middle lobe. There is air trapping in the upper lobes bilaterally. No pneumothorax is seen. There is no evidence of significant pleural fluid. IMPRESSION: Developing right middle lobe infiltrate with background emphysema. Dictated by: Dictated on workstation # [id number]
[2018-12-05 10:22] LABS: INR 2.5 (0.8-1.4); PROTHROMBIN TIME PATIENT 27.8 SEC (12.2-14.7)
[2018-12-05 10:25] LABS: ALANINE AMINOTRANSFERASE 9 U/L (0-55); ALBUMIN 3.8 GM/DL (3.2-4.5); ALKALINE PHOSPHATASE 79 U/L (40-136); BILIRUBIN,TOTAL 0.7 MG/DL (0.1-1.0); BUN/CREATININE RATIO 9; CALCIUM 10.1 MG/DL (8.5-10.1); CARBON DIOXIDE 26 MMOL/L (21-32); CHLORIDE 104 MMOL/L (98-107); CREATININE SERUM 1.06 MG/DL (0.60-1.30); GFR ESTIMATED 51; GLUCOSE 97 MG/DL (70-105); POTASSIUM 2.8 MMOL/L (3.6-5.0); SODIUM 142 MMOL/L (135-145); TOTAL PROTEIN 6.9 GM/DL (6.4-8.2)
[2018-12-05] MEDS ORDERED: RT-ALBUTEROL SULF 2.5 MG/3 ML PRE-MIX VIAL INH STA (10:26)
[2018-12-05] MEDS ORDERED: methylPREDNISolone 125 MG (Solu-MEDROL) VIAL IV STA (10:41)
[2018-12-05] MEDS ORDERED: CEFEPIME INJECTION 2,000 MG in WATER (STERILE) FOR INJECTION 20 ML IV ONE (10:45)
--- NOTE | 2018-12-05 10:53 | ED General ---
General Chief Complaint: Respiratory Problems Stated Complaint: SOA Nursing Triage Note: PT TO [facility] BY [facility] WITH CC OF COUGHING AND FEVER. Nursing Sepsis Screen: Possible Sepsis Risk Source of Information: Patient, EMS Exam Limitations: No Limitations History of Present Illness Date Seen by Provider: Dec 05, 2018 Time Seen by Provider: 09:47 Initial Comments Here with report of a few days of coughing and now with fever. Called EMS due to shortness of breath. Has central chest tightness/pressure and congestion and is coughing up thick yellow sputum. Patient states this feels like when she had pneumonia last time. Had nausea but no vomiting. Did have fever noted by EMS today. Patient is on Coumadin for blood clots after she had cervical cancer. She had blood clots to her right leg that ultimately resulted and [id number] amputation. Timing/Duration: 2-3 Days, Getting Worse Severity: Moderate Associated Systoms: Cough, Fever/Chills, Loss of Appetite, Nausea/Vomiting, Shortness of Air, Weakness Allergies and Home Medications Allergies Coded Allergies: aspirin (Verified Allergy, Unknown, 09/09/05) codeine (Verified Allergy, Unknown, NO ALLERGY TO MORPHINE, 11/24/08) penicillin G (Verified Allergy, Unknown, 09/09/05) Uncoded Allergies: METALS (Allergy, Mild, RASHES, 05/22/06) Home Medications Amlodipine Besylate 10 Mg Tablet, 10 MG PO DAILY, (Reported) Cefuroxime Axetil 500 Mg Tablet, 500 MG PO BID Prescribed by: MONIKA SALAZAR on 11/01/16743 Clopidogrel Bisulfate 75 Mg Tablet, 75 MG PO HS, (Reported) Folic Acid 1 Mg Tablet, 1 MG PO DAILY, (Reported) Lisinopril 10 Mg Tablet, 10 MG PO DAILY, (Reported) Metoprolol Succinate 50 Mg Tab.er.24h, 50 MG PO DAILY, (Reported) Montelukast Sodium 10 Mg Tablet, 10 MG PO HS, (Reported) Paroxetine HCl 10 Mg Tablet, 10 MG PO DAILY@1200, (Reported) Potassium Chloride 20 Meq Tab.er.prt, 20 MG PO DAILY@1200, (Reported) Prednisone 20 Mg Tab, 20 MG PO DAILY Take 2 tabs(40mg)daily for 3 days then 1 tab (20mg) for 3 additional days Prescribed by: MONIKA SALAZAR on 6/27/17 0744 Simvastatin 20 Mg Tablet, 40 MG PO HS, (Reported) TAKES 2 (20 MG) TABLETS Warfarin Sodium 2 Mg Tablet, 2 MG PO WeFr@1999, (Reported) Warfarin Sodium 1 Mg Tablet, 1 MG PO SuMoTuThSa@1999, (Reported) 1 mg tablet Monday, Monday, , Monday and Monday. Patient Home Medication List Home Medication List Reviewed: Yes Review of Systems Review of Systems Constitutional: see HPI, chills, fever, malaise EENTM: No nose congestion, No throat pain Respiratory: cough, phlegm, short of breath, wheezing Cardiovascular: see HPI; No palpitations, No syncope Gastrointestinal: constipation, nausea; No vomiting Genitourinary: no symptoms reported Musculoskeletal: no symptoms reported Skin: no symptoms reported Psychiatric/Neurological: No Symptoms Reported All Other Systems Reviewed Negative Unless Noted: Yes Past Wtfgjda-Wlyvhi-Ijgtee Hx Past Med/Social Hx: Reviewed Nursing Past Med/Soc Hx Patient Social History Alcohol Use: Denies Use Recreational Drug Use: No Smoking Status: Current Everyday Smoker Type Used: Cigarettes Recent Foreign Travel: No Contact w/Someone Who Travel: No Recent Infectious Disease Expo: No Recent Hopitalizations: No Physical Abuse: No Sexual Abuse: No Mistreated: No Fear: No Immunizations Up To Date Date of Pneumonia Vaccine: Feb 06, 2012 Seasonal Allergies Seasonal Allergies: No Past Medical History Surgeries: Yes (ILEOSTOMY,COLOSTOMY, R AKA) Abdominal, Appendectomy, Bowel Surgery, Orthopedic, Vascular Surgery Respiratory: Yes Chronic Bronchitis, COPD Cardiac: Yes (SEVERE PVD--RIGHT AKA) High Cholesterol, Hypertension, Peripheral Vascular Neurological: No Reproductive Disorders: Yes (CERVICAL CANCER) Genitourinary: Yes Bladder Infection Gastrointestinal: Yes (MULTIPLE SURGERIES FOR PERF. COLON AND COLOSTOMY) Musculoskeletal: Yes (RIGHT AKA FOR SEVERE PVD) Amputee Endocrine: No HEENT: No Cancer: Yes (CERVICAL CANCER 2003--S/P RADIATION IMPLANTS, CHEMO AND RADIATION) Cervical Did You Recieve Any Treatments: Yes What Type of Treatment Did You: Chemotherapy, Radiation Psychosocial: Yes Depression Integumentary: No Blood Disorders: No Family Medical History Reviewed Nursing Family Hx No Pertinent Family Hx Physical Exam-Suspected Sepsis Physical Exam Vital Signs Vital Signs - First Documented 12/05/18 09:46 Temp 101.4 Pulse 90 Resp 22 B/P (MAP) 140/87 (104) Pulse Ox 92 O2 Delivery Nasal Cannula O2 Flow Rate 4.00 Capillary Refill : Less Than 3 Seconds Blood Pressure Mean: 104 Height, Weight, BMI Height: 5'2.00" Weight: 125lbs. 2.0oz. 56.189408io; 22.9 BMI Method:Stated General Appearance: WD/WN, Mild Distress HEENT: PERRL/EOMI, Pharynx Normal Neck: Non Tender, Supple Respiratory: Accessory Muscle Use, Decreased Breath Sounds, Wheezing Cardiovascular: Regular Rate, Rhythm, No Murmur Gastrointestinal: Non Tender, Soft Back: Normal Inspection, No CVA Tenderness, No Vertebral Tenderness Extremity: Normal Range of Motion, Non Tender Neurologic/Psychiatric: Alert, Oriented x3 Skin: normal color, warm/dry Focused Exam Lactate Level 12/05/18 09:52: Lactic Acid Level 1.20 Lactic Acid Level Laboratory Tests Test 12/05/18 09:52 Lactic Acid Level 1.20 MMOL/L (0.50-2.00) Progress/Results/Core Measures Suspected Sepsis Recent Fever Within 48 Hours: Yes Infection Criteria Present: Suspected New Infection New/Unexplained Altered Menta: No Sepsis Screen: Possible Sepsis Risk SIRS Temperature:101.4 Pulse: 90 Respiratory Rate: 22 Laboratory Tests 12/05/18 09:52: White Blood Count 13.8H Blood Pressure 140 /87 Mean: 104 12/05/18 09:52: Lactic Acid Level 1.20 Laboratory Tests 12/05/18 09:52: Creatinine 1.06, INR Comment 2.5H, Platelet Count 174, Total Bilirubin 0.7 Results/Orders Lab Results Laboratory Tests Test 12/05/18 09:52 12/05/18 09:54 Range/Units White Blood Count 13.8 H 4.3-11.0 10^3/uL Red Blood Count 4.52 4.35-5.85 10^6/uL Hemoglobin 13.9 11.5-16.0 G/DL Hematocrit 41 35-52 % Mean Corpuscular Volume 90 80-99 FL Mean Corpuscular Hemoglobin 31 25-34 PG Mean Corpuscular Hemoglobin Concent 34 32-36 G/DL Red Cell Distribution Width 13.3 10.0-14.5 % Platelet Count 174 130-400 10^3/uL Mean Platelet Volume 10.8 H 7.4-10.4 FL Neutrophils (%) (Auto) 72 42-75 % Lymphocytes (%) (Auto) 14 12-44 % Monocytes (%) (Auto) 13 H 0-12 % Eosinophils (%) (Auto) 1 0-10 % Basophils (%) (Auto) 0 0-10 % Neutrophils # (Auto) 10.0 H 1.8-7.8 X 10^3 Lymphocytes # (Auto) 1.9 1.0-4.0 X 10^3 Monocytes # (Auto) 1.7 H 0.0-1.0 X 10^3 Eosinophils # (Auto) 0.2 0.0-0.3 10^3/uL Basophils # (Auto) 0.0 0.0-0.1 10^3/uL Prothrombin Time 27.8 H 12.2-14.7 SEC INR Comment 2.5 H 0.8-1.4 Activated Partial Thromboplast Time 62 H 24-35 SEC Sodium Level 142 135-145 MMOL/L Potassium Level 2.8 L 3.6-5.0 MMOL/L Chloride Level 104 98-107 MMOL/L Carbon Dioxide Level 26 21-32 MMOL/L Anion Gap 12 5-14 MMOL/L Blood Urea Nitrogen 10 7-18 MG/DL Creatinine 1.06 0.60-1.30 MG/DL Estimat Glomerular Filtration Rate 51 BUN/Creatinine Ratio 9 Glucose Level 97 70-105 MG/DL Lactic Acid Level 1.20 0.50-2.00 MMOL/L Calcium Level 10.1 8.5-10.1 MG/DL Corrected Calcium 10.3 H 8.5-10.1 MG/DL Total Bilirubin 0.7 0.1-1.0 MG/DL Aspartate Amino Transf (AST/SGOT) 12 5-34 U/L Alanine Aminotransferase (ALT/SGPT) 9 0-55 U/L Alkaline Phosphatase 79 40-136 U/L Troponin I < 0.028 <0.028 NG/ML Total Protein 6.9 6.4-8.2 GM/DL Albumin 3.8 3.2-4.5 GM/DL My Orders Orders - DREW LOPEZ MD Albuterol/Ipra Inhalation Soln (Duoneb I (12/05/18 10:00) Cbc With Automated Diff (12/05/18 09:54) Comprehensive Metabolic Panel (12/05/18 09:54) Blood Culture (12/05/18 09:54) Sputum Culture (12/05/18 09:54) Urinalysis (12/05/18 09:54) Urine Culture (12/05/18 09:54) Protime With Inr (12/05/18 09:54) Partial Thromboplastin Time (12/05/18 09:54) Chest 1 View, Ap/Pa Only (12/05/18 09:54) Acetaminophen Tablet (Tylenol Tablet) (12/05/18 10:00) Ed Iv/Invasive Line Start (12/05/18 09:54) Ekg Tracing (12/05/18 09:54) Troponin I (12/05/18 09:54) Vital Signs Adult Sepsis Patie Q15M (12/05/18 09:54) O2 (12/05/18 09:54) Remove Rings In Anticipation O (12/05/18 09:54) Lactic Acid Analyzer (12/05/18 09:54) Lactated Ringers (Lr 1000 Ml Iv Solution (12/05/18 09:54) Svn Small Volume Nebulizer (12/05/18 09:54) Albuterol Pre-Mix Nebs (Rt) (Proventil (12/05/18 10:26) Svn Small Volume Nebulizer (12/05/18 10:26) Albuterol Pre-Mix Nebs (Rt) (Proventil (12/05/18 10:20) Methylprednisolone Sod Succ (Solu-Medrol (12/05/18 10:41) Cefepime Injection (Maxipime Injection) (12/05/18 10:45) Medications Given in ED Current Medications Medications Dose Ordered Sig/Christiano Route Start Time Stop Time Status Last Admin Dose Admin Acetaminophen 1,000 mg ONCE PRN PO 12/05/18 10:00 12/05/18 10:05 DC 12/05/18 10:00 1,000 MG Albuterol/ Ipratropium 3 ml ONCE ONCE INH 12/05/18 10:00 12/05/18 10:01 DC 12/05/18 10:18 3 ML Lactated Ringer's 1,000 ml @ 0 mls/hr Q0M ONCE IV 12/05/18 09:54 12/05/18 09:57 DC 12/05/18 09:59 1,000 MLS/HR Vital Signs/I&O 12/05/18 12/05/18 12/05/18 12/05/18 09:46 10:00 10:18 10:27 Temp 101.4 101.4 Pulse 90 Resp 22 B/P (MAP) 140/87 (104) Pulse Ox 92 88 98 O2 Delivery Nasal Cannula Nasal Cannula O2 Flow Rate 4.00 3.00 Capillary Refill : Less Than 3 Seconds Blood Pressure Mean: 104 Progress Note : Progress Note Seen and evaluated. IV by EMS. Labs, EKG and chest x-ray ordered. Blood cultures and lactic acid ordered. We have initiated sepsis protocol. Duo neb ordered due to the need for oxygen and not normally on oxygen. The patient. 1042: We have initiated albuterol treatment 3 due to persistence of hypoxia and shortness of breath as well as decreased breath sounds. X-ray does show right middle lobe pneumonia. Patient does have elevated white count lactic acid is normal. I have discussed the case with Dr. Santamaria and she accepts patient for admission, inpatient status. I discussed the case with Dr. Shah and he says patient in consult. We will initiate Solu-Medrol 125 mg IV as well as continuation of that at 4 mg IV every 6 hours. All findings concerns were discussed with the patient who agrees with admission. ECG Initial ECG Impression Date: Dec 05, 2018 Initial ECG Impression Time: 09:56 Initial ECG Rate: 87 Initial ECG Rhythm: Normal Sinus Comment Sinus rhythm with leftward axis. No evidence of ST elevation SD. Similar but more leftward axis and 29 October 2016. Interpreted by me. Diagnostic Imaging Diagonstic Imaging: Xray Plain Films/CT/US/NM/MRI: chest Comments [facility] [place], [place] NAME: SAMANTHA CORREIA [facility] REC#: [id number] PT STATUS: REG ER : 1945 PHYSICIAN: DREW LOPEZ MD ADMIT DATE: 12/05/18/ER Draft Date of Exam:12/05/18 CHEST 1 VIEW, AP/PA ONLY INDICATION: Dyspnea Portable upright AP view of the chest is obtained. Comparison is made to the study of 10/29/2016. There is obscuration of the right heart border indicating pneumonitis or possible pneumonia in the right middle lobe. There is air trapping in the upper lobes bilaterally. No pneumothorax is seen. There is no evidence of significant pleural fluid. IMPRESSION: Developing right middle lobe infiltrate with background emphysema. Dictated on workstation # [id number] Dict: 12/05/18 1015 Trans: 12/05/18 1019 NORMAN [id number] Interpreted by: RILEY MARTINEZ MD Electronically signed by: Reviewed: Reviewed by Me Departure Communication (Admissions) Time/Spoke to Admitting Phy: 10:40 Time/Spoke to Consulting Phy: 10:42 Impression Primary Impression: Right middle lobe pneumonia Qualified Codes: J18.1 - Lobar pneumonia, unspecified organism Additional Impression: Emphysema/COPD Qualified Codes: J43.9 - Emphysema, unspecified Disposition: 09 ADMITTED INPATIENT Condition: Stable Admissions Decision to Admit Reason: Admit from ER (General) Decision to Admit/Date: Dec 05, 2018 Time/Decision to Admit Time: 10:40 Departure-Patient Inst. Referrals: ANJEL JORDAN DO (PCP) Primary Care Physician ERIK SAMAYOA (Family) Primary Care Physician DREW LOPEZ MD Dec 05, 2018 10:53
[2018-12-05 11:18] LABS: BILIRUBIN,URINE NEGATIVE (NEGATIVE); CLARITY,URINE CLEAR; COLOR,URINE YELLOW; GLUCOSE, URINE (UA) NEGATIVE (NEGATIVE); KETONES,URINE NEGATIVE (NEGATIVE); LEUKOCYTE ESTERASE ,URINE 2+ (NEGATIVE); NITRITE,URINE POSITIVE (NEGATIVE); PH,URINE 6 (5-9); PROTEIN,URINE 2+ (NEGATIVE); UROBILINOGEN,URINE NORMAL (NORMAL)
[2018-12-05 11:32] LABS: BACTERIA,URINE LARGE /HPF; RBC,URINE 50-100 /HPF; SQUAMOUS EPITHELIAL CELL,UR 0-2 /HPF; WBC,URINE 50-100 /HPF
--- OUTSIDE RECORDS SUMMARY | 2018-12-05 11:33 | XMS REPORT ---
Author Author ANJEL JORDAN [facility] Address [address] [place] [address] Care Team Providers Care Statement Clerk Name Role Phone ANJEL JORDAN Unavailable PROBLEMS Type Condition ICD9-CM Code IAB48-FV Code Onset Dates Condition Status SNOMED Code Problem Mood disorder F39 Active 30253945 Problem Amput leg, unil NOS-comp S88.919A Active 93770144 Problem PVD (peripheral vascular disease) I73.9 Active 727335529 Problem Acute cystitis with hematuria N30.01 Active 91426245 Problem Chronic obstructive pulmonary disease, unspecified COPD type J44.9 Active 15608971 Problem Anticoagulant long-term use Z79.01 Active 836081889 Problem Vitamin B12 deficiency E53.8 Dec, Active 906995976 Problem Major depressive disorder, single episode, unspecified F32.9 Active 12480938 Problem Chronic fatigue, unspecified R53.82 Active 301064702 Problem Congestive heart failure, unspecified congestive heart failure chronicity, unspecified congestive heart failure type I50.9 Active 02408662 Problem Chronic fatigue R53.82 Active 87118600 Problem Peripheral vascular disease I73.9 Active [id number] ALLERGIES No Information ENCOUNTERS Encounter Location Date Diagnosis [facility] [id number] [address] Nov, Vitamin B12 deficiency E53.8 [facility] [id number] [address] Nov, Anticoagulant long-term use Z79.01 [facility] [id number] [place] [address] Oct, Chronic fatigue R53.82 [facility] [id number] [address] Oct, Chronic fatigue R53.82 and Bradycardia R00.1 [facility] [id number] [place] [address] Oct, Chronic fatigue R53.82 [facility] [id number] [place] [address] 04 Oct, 2018 Anticoagulant long-term use Z79.01 [facility] [id number] [place] [address] September, Encounter for Medicare annual wellness exam Z00.00 [address] [address] September, Vitamin B12 deficiency E53.8 [place] [address] [address] September, Anticoagulant long-term use Z79.01 [place] [address] [address] Aug, Anticoagulant long-term use Z79.01 [facility] [id number] [place] [address] Jul, Vitamin B12 deficiency E53.8 [place] [address] [address] Jul, Anticoagulant long-term use Z79.01 [facility] [id number] [place] [address] Jul, [facility] [id number] [place] [address] Jun, [facility] [id number] [place] [address] Jun, Vitamin B12 deficiency E53.8 [facility] [id number] [place] [address] Jun, Anticoagulant long-term use Z79.01 [facility] [id number] [place] [address] Jun, Encounter for Medicare annual wellness exam Z00.00 ; Major depressive disorder, single episode, unspecified F32.9 ; PVD (peripheral vascular disease) I73.9 ; Congestive heart failure, unspecified congestive heart failure chronicity, unspecified congestive heart failure type I50.9 and Chronic obstructive pulmonary disease, unspecified COPD type J44.9 [facility] [id number] [place] [address] May, Vitamin B12 deficiency E53.8 [place] [address] [address] May, Anticoagulant long-term use Z79.01 [place] [address] [address] Apr, [place] [address] [address] Apr, Anticoagulant long-term use Z79.01 [place] [id number] [place] [address] Apr, Anticoagulant long-term use Z79.01 [place] [address] [address] Mar, Chronic fatigue R53.82 [place] [id number] [place] [address] Mar, Anticoagulant long-term use Z79.01 [place] [id number] [place] [address] Feb, [place] [id number] [place] [address] Feb, Vitamin B12 deficiency E53.8 [place] [address] [address] Feb, Vitamin B12 deficiency E53.8 [place] [id number] [place] [address] Feb, Vitamin B12 deficiency E53.8 and Anticoagulant long-term use Z79.01 [facility] [address] [place] [address] Jan, Anticoagulant long-term use Z79.01 [facility] [address] [place] [address] Jan, Vitamin B12 deficiency E53.8 [facility] [address] [place] [address] Jan, Anticoagulant long-term use Z79.01 [facility] [id number] [place] [address] Jan, Major depressive disorder, single episode, unspecified F32.9 [place] [id number] [place] [address] Jan, [place] [id number] [place] [address] Jan, Anticoagulant long-term use Z79.01 [facility] [id number] [place] [address] Dec, Anticoagulant long-term use Z79.01 [facility] [id number] [place] [address] Dec, Vitamin B12 deficiency E53.8 [address] [place] [id number] [place] [address] Dec, Major depressive disorder, single episode, unspecified F32.9 [place] [id number] [place] [address] Nov, Vitamin B 12 deficiency E53.8 [place] [id number] [place] [address] Nov, Anticoagulant long-term use Z79.01 ; Mood disorder F39 ; Chronic obstructive pulmonary disease, unspecified COPD type J44.9 ; Peripheral vascular disease I73.9 and Chronic fatigue R53.82 [place] [id number] [address] Nov, Mood disorder F39 [facility] [id number] [place] [address] Nov, [facility] [id number] [place] [address] Oct, Mood disorder F39 ; Chronic obstructive pulmonary disease, unspecified COPD type J44.9 ; Peripheral vascular disease I73.9 and Chronic fatigue R53.82 [facility] [id number] [place] [address] September, Anticoagulant long-term use Z79.01 and Congestive heart failure, unspecified congestive heart failure chronicity, unspecified congestive heart failure type I50.9 [facility] [id number] [place] [address] September, Vitamin B12 deficiency E53.8 [facility] [id number] [place] [address] September, Anticoagulant long-term use Z79.01 [facility] [id number] [place] [address] September, Anticoagulant long-term use Z79.01 and Congestive heart failure, unspecified congestive heart failure chronicity, unspecified congestive heart failure type I50.9 [facility] [address] [address] Aug, Chronic fatigue, unspecified R53.82 [facility] [id number] [place] [address] Aug, Anticoagulant long-term use Z79.01 [facility] [id number] [place] [address] Aug, Nausea R11.0 and Weakness R53.1 [facility] [id number] [place] [address] Aug, [facility] [id number] [place] [address] 04 Aug, 2017 Hematuria R31.9 and Acute cystitis with hematuria N30.01 [place] [address] [address] 02 Aug, 2017 [place] [address] [address] Jul, Vitamin B 12 deficiency E53.8 [place] [address] [address] Jul, Anticoagulant long-term use Z79.01 [place] [address] [address] 19 Jun, 2017 Chronic fatigue, unspecified R53.82 [place] [address] [address] Jun, Anticoagulant long-term use Z79.01 [place] [id number] [place] [address] May, Flu-like symptoms R68.89 and Influenza A J10.1 [place] [address] [address] May, [place] [id number] [place] [address] May, Chronic fatigue, unspecified R53.82 [place] [id number] [place] [address] May, Anticoagulant long-term use Z79.01 [place] [id number] [place] [address] 15 Apr, 2017 Medicare welcome exam Z00.00 ; Anticoagulant long-term use Z79.01 ; Medicare annual wellness visit, initial Z00.00 ; Medicare annual wellness visit, subsequent Z00.00 and Chronic fatigue, unspecified R53.82 [place] [address] [address] Mar, Chronic fatigue, unspecified R53.82 [facility] [address] [address] Mar, Anticoagulant long-term use Z79.01 [facility] [address] [place] [address] Mar, Anticoagulant long-term use Z79.01 and Hematuria R31.9 [facility] [id number] [place] [address] Mar, Hematuria R31.9 [facility] [id number] [place] [address] Feb, Anticoagulant long-term use Z79.01 [facility] [id number] [place] [address] Feb, Anticoagulant long-term use Z79.01 [facility] [id number] [place] [address] Feb, Anticoagulant long-term use Z79.01 [facility] [address] [place] [address] Feb, Chronic fatigue, unspecified R53.82 [facility] [address] [place] [address] Feb, Anticoagulant long-term use Z79.01 [facility] [address] [address] Feb, Congestive heart failure, unspecified congestive heart failure chronicity, unspecified congestive heart failure type I50.9 [facility] [address] [place] [address] Feb, Congestive heart failure, unspecified congestive heart failure chronicity, unspecified congestive heart failure type I50.9 [facility] [address] [address] Feb, [facility] [address] [address] Jan, Anticoagulant long-term use Z79.01 [facility] [id number] [place] [address] Jan, [facility] [id number] [place] [address] Jan, Anticoagulant long-term use Z79.01 and Hematuria R31.9 [address] [place] [id number] [place] [address] Jan, Anticoagulant long-term use Z79.01 [address] [id number] [place] [address] Jan, Chronic fatigue, unspecified R53.82 [place] [id number] [place] [address] Jan, Anticoagulant long-term use Z79.01 [place] [place] [id number] [place] [address] Dec, Chronic fatigue, unspecified R53.82 [place] [id number] [place] [address] Dec, [place] [id number] [place] [address] Dec, Chronic fatigue, unspecified R53.82 and Encounter for therapeutic drug level monitoring Z51.81 [place] [id number] [place] [address] Nov, Encounter for therapeutic drug level monitoring Z51.81 [place] [id number] [place] [address] Nov, Hematuria R31.9 [place] [id number] [place] [address] Nov, Hematuria R31.9 ; Anticoagulant long-term use Z79.01 and PVD (peripheral vascular disease) I73.9 [address] [id number] [place] [address] Nov, Anticoagulant long-term use Z79.01 [place] [id number] [place] [address] Nov, Anticoagulant long-term use Z79.01 [address] [id number] [place] [address] Nov, [place] [id number] [place] [address] Nov, Hematuria R31.9 and Acute cystitis with hematuria N30.01 [address] [place] [address] [id number] Oct, [place] [id number] [place] [address] Oct, [place] [id number] [place] [address] Oct, Hematuria R31.9 [place] [id number] [place] [address] Oct, Hematuria R31.9 [place] [id number] [place] [address] Oct, Anticoagulant long-term use Z79.01 [address] [place] [address] [place] [address] Oct, Anticoagulant long-term use Z79.01 [place] [id number] [place] [address] Oct, [place] [id number] [place] [address] September, PVD (peripheral vascular disease) I73.9 ; Amput leg, unil NOS-comp S88.919A ; Acute cystitis without hematuria N30.00 ; Anticoagulant long-term use Z79.01 and Hypokalemia E87.6 [place] [id number] [place] [address] Aug, Anticoagulant long-term use Z79.01 and Bronchitis J40 [facility] [address] [address] Jul, [facility] [id number] [place] [address] Jul, Anticoagulant long-term use Z79.01 and Mood disorder F39 [facility] [address] [address] Jul, [facility] [address] [address] May, [facility] [id number] [place] [address] May, Hypokalemia E87.6 [place] [address] [address] May, Mood disorder F39 [facility] [address] [address] May, Anticoagulant long-term use Z79.01 [place] [id number] [place] [address] Apr, Anticoagulant long-term use Z79.01 [place] [id number] [place] [address] Apr, Anticoagulant long-term use Z79.01 [facility] [id number] [place] [address] Apr, [facility] [address] [address] Apr, Anticoagulant long-term use Z79.01 [facility] [id number] [place] [address] Apr, Anticoagulant long-term use Z79.01 [facility] [id number] [place] [address] Apr, Anticoagulant long-term use Z79.01 [facility] [id number] [place] [address] Mar, [facility] [id number] [place] [address] Mar, [facility] [address] [address] Mar, Anticoagulant long-term use Z79.01 [facility] [id number] [place] [address] Feb, [facility] [id number] [place] [address] Feb, [facility] [id number] [place] [address] Feb, Anticoagulant long-term use Z79.01 [facility] [id number] [place] [address] Feb, Anticoagulant long-term use Z79.01 [facility] [id number] [place] [address] Jan, [facility] [id number] [place] [address] Jan, Anticoagulant long-term use Z79.01 [facility] [id number] [place] [address] Jan, Anticoagulant long-term use Z79.01 [facility] [id number] [place] [address] Dec, Anticoagulant long-term use Z79.01 [facility] [id number] [place] [address] Dec, Anticoagulant long-term use Z79.01 [facility] [id number] [place] [address] Dec, Anticoagulant long-term use Z79.01 and Mood disorder F39 [facility] [id number] [place] [address] Dec, [facility] [id number] [place] [address] Nov, [facility] [address] [address] Nov, Anticoagulant long-term use Z79.01 [facility] [id number] [place] [address] Nov, Anticoagulant long-term use Z79.01 [facility] [id number] [place] [address] September, Anticoagulant long-term use Z79.01 [facility] [address] [address] Jul, Anticoagulant long-term use Z79.01 [facility] [id number] [place] [address] May, Anticoagulant long-term use Z79.01 [facility] [id number] [place] [address] May, Anticoagulant long-term use Z79.01 [facility] [id number] [place] [address] May, Anticoagulant long-term use Z79.01 [facility] [id number] [place] [address] May, Anticoagulant long-term use Z79.01 [facility] [id number] [place] [address] May, [facility] [id number] [place] [address] May, Congestive heart failure, unspecified congestive heart failure chronicity, unspecified congestive heart failure type I50.9 and Pulmonary congestion R09.89 [facility] [address] [address] Apr, Cough R05 ; Congestive heart failure, unspecified congestive heart failure chronicity, unspecified congestive heart failure type I50.9 and Pulmonary congestion R09.89 [facility] [address] [address] Mar, Hematuria R31.9 [facility] [address] [address] Mar, [place] [address] [address] Mar, Anticoagulant long-term use Z79.01 [place] [address] [address] Mar, [place] [address] [address] Mar, Hematuria R31.9 and Infective urethritis N34.2 [place] [address] [address] Mar, Anticoagulant long-term use Z79.01 [place] [address] [address] Mar, Anticoagulant long-term use Z79.01 [place] [address] [address] Mar, [facility] [address] [address] Mar, Anticoagulant long-term use Z79.01 [place] [address] [address] Feb, Peristomal skin breakdown L98.499 [place] [address] [address] Feb, [place] [address] [place] [address] [address] Feb, UTI (urinary tract infection) N39.0 [facility] [address] [address] Jan, [facility] [address] [address] Dec, High risk medication use V58.69 [facility] [id number] [place] [address] Nov, High risk medication use V58.69 [facility] [address] [place] [address] Nov, [facility] ([facility] [address] [address] Nov, UTI (lower urinary tract infection) 599.0 ; URI, acute 465.9 ; Insomnia 780.52 ; Anxiety 300.00 and Lower limb amputation, unspecified level V49.70 [facility] [address] [place] [address] [id number] [address] Oct, UTI (lower urinary tract infection) 599.0 ; URI, acute 465.9 ; Insomnia 780.52 ; Anxiety 300.00 and Lower limb amputation, unspecified level V49.70 [facility] ([facility] [address] [place] [id number] [address] Aug, [facility] [address] [address] Aug, [facility] [address] [address] Jul, [facility] ([facility] [address] [address] Jul, [facility] ([facility] [address] [place] [id number] [address] Jun, [facility] ([facility] [address] [address] Jun, [facility] [place] [facility] [address] [id number] [place] [address] Mar, [facility] [place] [facility] [address] [id number] [place] [address] Mar, [facility] [place] [facility] [address] [facility] [id number] [place] [address] Mar, [facility] [place] [facility] [address] [id number] [place] [address] Mar, [facility] [place] [facility] [address] [id number] [place] [address] Mar, [facility] [place] [facility] [address] [id number] [place] [address] Feb, [facility] [place] [facility] [address] [facility] [id number] [place] [address] Feb, [facility] [place] [facility] [address] [id number] [place] [address] Feb, [facility] [place] [facility] [address] [facility] [id number] [place] [address] Feb, [facility] [place] [facility] [address] [facility] [id number] [place] [address] Feb, [facility] [facility] [address] [id number] [place] [address] 16 Feb, 2014 [facility] [place] [facility] [address] [id number] [place] [address] 16 Feb, 2014 [facility] [place] [facility] [address] [id number] [place] [address] Feb, [facility] [place] [facility] [address] [id number] [place] [address] Feb, [facility] [place] [facility] [address] [id number] [place] [address] Feb, [facility] [place] [facility] [address] [id number] [place] [address] Feb, 2013 [facility] [place] [facility] [address] [id number] [place] [address] Feb, [facility] [place] [facility] [address] [id number] [place] [address] Feb, [facility] [place] [facility] [address] [id number] [place] [address] Feb, [facility] [place] [facility] [address] [id number] [place] [address] Feb, [facility] [place] [facility] [address] [id number] [place] [address] Feb, [facility] [place] [facility] [address] [id number] [place] [address] Jan, [facility] [place] [facility] [address] [id number] [place] [address] Jan, 2013 [facility] [place] [facility] [address] [id number] [place] [address] Jan, [facility] [place] [facility] [address] [id number] [place] [address] Jan, [facility] [place] [facility] [address] [id number] [place] [address] Jan, [facility] [place] [facility] [address] [id number] [place] [address] Nov, [facility] [place] [facility] [address] [id number] [place] [address] Nov, [facility] [place] [facility] [address] [id number] [place] [address] Nov, [facility] [place] [facility] [address] [id number] [place] [address] Nov, [facility] [place] [facility] [address] [id number] [place] [address] Nov, [facility] [place] [facility] [address] [id number] [place] [address] Nov, [facility] [place] [facility] [address] [id number] [place] [address] Oct, [facility] [place] [facility] [address] [id number] [place] [address] Oct, [facility] [place] [facility] [address] [id number] [place] [address] Oct, [facility] [place] [facility] [address] [id number] [place] [address] Oct, [facility] [place] [facility] [address] [id number] [place] [address] Oct, [facility] [place] [facility] [address] [id number] [place] [address] Oct, [facility] [place] [facility] [address] [id number] [place] [address] Oct, [facility] [place] [facility] [address] [id number] [place] [address] September, [facility] [place] [facility] [address] [id number] [place] [address] September, [facility] [place] [facility] [address] [id number] [place] [address] September, [facility] [place] [facility] [address] [id number] [place] [address] September, [facility] [place] [facility] [address] [id number] [place] [address] September, [facility] [place] [facility] [address] [id number] [place] [address] September, [facility] [place] [facility] [address] [id number] [place] [address] September, [facility] [place] [facility] [address] [id number] [place] [address] September, [facility] [place] [facility] [address] [id number] [place] [address] Aug, [facility] [place] [facility] [address] [id number] [place] [address] Aug, [facility] [place] [facility] [address] [id number] [place] [address] Aug, [facility] [place] [facility] [address] [id number] [place] [address] Aug, [facility] [place] [facility] [address] [id number] [place] [address] Jul, [facility] [place] [facility] [address] [id number] [place] [address] Jul, [facility] [place] [facility] [address] [id number] [place] [address] Jun, [facility] [facility] [address] [id number] [place] [address] Jun, [facility] [place] [facility] [address] [id number] [place] [address] Jun, [facility] [place] [facility] [address] [id number] [place] [address] Jun, [facility] [facility] [address] [id number] [place] [address] Jun, [facility] [place] [facility] [address] [id number] [place] [address] Jun, [facility] [place] [facility] [address] [id number] [place] [address] May, [facility] [place] [facility] [address] [id number] [place] [address] May, [facility] [place] [facility] [address] [id number] [place] [address] May, [facility] [place] [facility] [address] [id number] [place] [address] May, [facility] [facility] [address] [id number] [place] [address] May, [facility] [facility] [address] [id number] [place] [address] May, [facility] [place] [facility] [address] [id number] [place] [address] Feb, [facility] [facility] [address] [id number] [place] [address] Feb, [facility] [place] [facility] [address] [id number] [place] [address] Feb, [facility] [place] [facility] [address] [id number] [place] [address] Feb, [facility] [facility] [address] [id number] [place] [address] Jan, [facility] [facility] [address] [id number] [place] [address] Jan, [facility] [facility] [address] [id number] [place] [address] Jan, [facility] [address] [id number] [place] [address] Dec, [facility] [facility] [address] [id number] [place] [address] Nov, [facility] [address] [id number] [place] [address] Nov, [facility] [address] [id number] [place] [address] Nov, [facility] [facility] [address] [id number] [place] [address] Nov, [facility] [facility] [address] [id number] [place] [address] Nov, [facility] [address] [id number] [place] [address] Oct, [facility] [address] [id number] [place] [address] September, [facility] [address] [id number] [place] [address] September, [facility] [address] [id number] [place] [address] Aug, [facility] [address] [id number] [place] [address] Aug, [facility] [address] [id number] [place] [address] Jul, [facility] [address] [id number] [place] [address] Jul, [facility] [address] [id number] [place] [address] Jul, [facility] [address] [id number] [place] [address] Jul, [facility] [address] [id number] [place] [address] Jun, [facility] [address] [id number] [place] [address] Jun, [facility] [address] [id number] [place] [address] Jun, [facility] [address] [id number] [place] [address] May, [facility] [address] [id number] [place] [address] May, [facility] [address] [id number] [place] [address] May, [facility] [address] [id number] [place] [address] May, [facility] [address] [id number] [place] [address] Apr, [facility] [facility] [address] [id number] [place] [address] Apr, [facility] [address] [id number] [place] [address], [place] [address] Apr, [facility] [address] [id number] [place] [address] Apr, [facility] [address] [id number] [place] [address] Apr, [facility] [address] [id number] [place] [address] Apr, [facility] [address] [id number] [place] [address] Mar, [facility] [address] [id number] [place] [address] Mar, [facility] [address] [id number] [place] [address] Mar, [facility] [address] [id number] [place] [address] Mar, [facility] [address] [id number] [place] [address] Mar, [facility] [address] [id number] [place] [address] Mar, [facility] [address] [id number] [place] [address] Feb, [facility] [address] [id number] [place] [address] Feb, [facility] [address] [id number] [place] [address] Feb, [facility] [address] [id number] [place] [address] Feb, [facility] [address] [id number] [place] [address] Jan, [facility] [address] [id number] [place] [address] Jan, [facility] [address] [id number] [place] [address] 24 Jan, 2012 [facility] [address] [id number] [place] [address] Jan, [facility] [address] [id number] [place] [address] Dec, [facility] [address] [id number] [place] [address] Dec, [facility] [place] [facility] [address] [id number] [place] [address] Nov, [facility] [address] [id number] [place] [address] Oct, [facility] [address] [id number] [place] [address] Oct, [facility] [place] [facility] [address] [id number] [place] [address] Oct, [facility] [address] [id number] [place] [address] September, [facility] [place] [facility] [address] [id number] [place] [address] September, [facility] [place] [facility] [address] [id number] [place] [address] September, [facility] [place] [facility] [address] [id number] [place] [address] September, [facility] [place] [facility] [address] [id number] [place] [address] September, [facility] [address] [id number] [place] [address] September, [facility] [place] [facility] [address] [id number] [place] [address] September, [facility] [place] [facility] [address] [id number] [place] [address] Jul, [facility] [place] [facility] [address] [id number] [place] [address] Jul, [facility] [place] [facility] [address] [id number] [place] [address] Jun, [facility] [place] [facility] [address] [id number] [place] [address] Jun, [facility] [place] [facility] [address] [id number] [place] [address] Jun, [facility] [place] [facility] [address] [id number] [place] [address] May, [facility] [place] [facility] [address] [id number] [place] [address] Mar, [facility] [address] [id number] [place] [address] Mar, [facility] [place] [facility] [address] [id number] [place] [address] 14 Mar, 2011 [facility] [place] [facility] [address] [id number] [place] [address] Feb, [facility] [place] [facility] [address] [id number] [place] [address] Feb, [facility] [place] [facility] [address] [id number] [place] [address] Dec, [facility] [place] [facility] [address] [id number] [place] [address] May, [facility] [address] [id number] [place] [address] Apr, [facility] [id number] [place] [address] Apr, [facility] [address] [id number] [place] [address] Apr, [facility] [id number] [place] [address] Apr, [facility] [address]00565100[address] [place] [address] Feb, [facility] [address]00565100[address] [place] [address] Oct, IMMUNIZATIONS No Known Immunizations SOCIAL HISTORY Never Assessed REASON FOR VISIT PLAN OF CARE VITAL SIGNS MEDICATIONS Unknown Medications RESULTS No Results PROCEDURES No Known procedures INSTRUCTIONS MEDICATIONS ADMINISTERED No Known Medications MEDICAL (GENERAL) HISTORY Type Description Date Medical History Severe Peripheral vascular disease. S/p right ax-fem bypass and thrombectomy/revision 05/[address] Pearl Medical History Hypertension Medical History Chrohns Disease Medical History Depression Medical History Cervical Cancer ended tx'd in 2003 Medical History Right foot drop with history of recurrent ankle sprain Medical History Parastomal hernia repair by Dr. Ferrera Surgical History Small bowel resection-w/colostomy bag Surgical History Right foot 5th toe removal 06/25/2009 Hospitalization History pneumonia, hypoxia-[facility] 11/03/16
--- OUTSIDE RECORDS SUMMARY | 2018-12-05 11:34 | XMS REPORT ---
Author Author ERIK SAMAYOA Organization [facility] Address [address] [place] [address] Care Team Providers Care Book Coverer Name Role Phone ERIK SAMAYOA Unavailable PROBLEMS Type Condition ICD9-CM Code YSO18-IP Code Onset Dates Condition Status SNOMED Code Problem Mood disorder F39 Active 23970935 Problem Amput leg, unil NOS-comp S88.919A Active 13665236 Problem PVD (peripheral vascular disease) I73.9 Active 319436253 Problem Acute cystitis with hematuria N30.01 Active 33977253 Problem Chronic obstructive pulmonary disease, unspecified COPD type J44.9 Active 16862744 Problem Anticoagulant long-term use Z79.01 Active 216923527 Problem Vitamin B12 deficiency E53.8 Dec, Active 460779469 Problem Major depressive disorder, single episode, unspecified F32.9 Active 03389746 Problem Chronic fatigue, unspecified R53.82 Active 948528295 Problem Congestive heart failure, unspecified congestive heart failure chronicity, unspecified congestive heart failure type I50.9 Active 89725785 Problem Chronic fatigue R53.82 Active 20932002 Problem Peripheral vascular disease I73.9 Active [id number] ALLERGIES No Information ENCOUNTERS Encounter Location Date Diagnosis [facility] [id number], [place] [address] Nov, Vitamin B12 deficiency E53.8 [facility] [id number], [place] [address] Nov, Anticoagulant long-term use Z79.01 [facility] [id number], [place] [address] Oct, Chronic fatigue R53.82 [facility] [id number], [place] [address] Oct, Chronic fatigue R53.82 and Bradycardia R00.1 [facility] [id number] [place] [address] 04 Oct, 2018 Chronic fatigue R53.82 [facility] [id number] [place] [address] 04 Oct, 2018 Anticoagulant long-term use Z79.01 [facility] [id number] [place] [address] September, Encounter for Medicare annual wellness exam Z00.00 [facility] [id number] [place] [address] September, Vitamin B12 deficiency E53.8 [place] [id number] [place] [address] September, Anticoagulant long-term use Z79.01 [place] [id number] [place] [address] Aug, Anticoagulant long-term use Z79.01 [place] [id number] [place] [address] Jul, Vitamin B12 deficiency E53.8 [place] [id number] [place] [address] Jul, Anticoagulant long-term use Z79.01 [facility] [id number] [place] [address] Jul, [place] [id number] [place] [address] Jun, [place] [id number] [place] [address] Jun, Vitamin B12 deficiency E53.8 [facility] [id number] [place] [address] Jun, Anticoagulant long-term use Z79.01 [facility] [id number] [place] [address] Jun, Encounter for Medicare annual wellness exam Z00.00 ; Major depressive disorder, single episode, unspecified F32.9 ; PVD (peripheral vascular disease) I73.9 ; Congestive heart failure, unspecified congestive heart failure chronicity, unspecified congestive heart failure type I50.9 and Chronic obstructive pulmonary disease, unspecified COPD type J44.9 [facility] [id number] [place] [address] May, Vitamin B12 deficiency E53.8 [facility] [id number] [place] [address] May, Anticoagulant long-term use Z79.01 [place] [id number] [place] [address] Apr, [place] [id number] [place] [address] Apr, Anticoagulant long-term use Z79.01 [place] [address] [address] Apr, Anticoagulant long-term use Z79.01 [place] [id number] [place] [address] Mar, Chronic fatigue R53.82 [place] [id number] [place] [address] Mar, Anticoagulant long-term use Z79.01 [place] [id number] [place] [address] Feb, [facility] [id number] [place] [address] Feb, Vitamin B12 deficiency E53.8 [place] [id number] [place] [address] Feb, Vitamin B12 deficiency E53.8 [place] [id number] [place] [address] Feb, Vitamin B12 deficiency E53.8 and Anticoagulant long-term use Z79.01 [facility] [id number] [place] [address] Jan, Anticoagulant long-term use Z79.01 [facility] [id number] [place] [address] Jan, Vitamin B12 deficiency E53.8 [facility] [address] [address] Jan, Anticoagulant long-term use Z79.01 [facility] [address] [address] Jan, Major depressive disorder, single episode, unspecified F32.9 [place] [address] [address] Jan, [place] [address] [address] Jan, Anticoagulant long-term use Z79.01 [facility] [id number] [place] [address] Dec, Anticoagulant long-term use Z79.01 [place] [address] [address] Dec, Vitamin B12 deficiency E53.8 [place] [id number] [place] [address] Dec, Major depressive disorder, single episode, unspecified F32.9 [place] [id number] [place] [address] Nov, Vitamin B 12 deficiency E53.8 [place] [address] [address] Nov, Anticoagulant long-term use Z79.01 ; Mood disorder F39 ; Chronic obstructive pulmonary disease, unspecified COPD type J44.9 ; Peripheral vascular disease I73.9 and Chronic fatigue R53.82 [place] [address] [place] [address] Nov, Mood disorder F39 [facility] [id number] [place] [address] Nov, [facility] [id number] [place] [address] Oct, Mood disorder F39 ; Chronic obstructive pulmonary disease, unspecified COPD type J44.9 ; Peripheral vascular disease I73.9 and Chronic fatigue R53.82 [facility] [id number] [place] [address] September, Anticoagulant long-term use Z79.01 and Congestive heart failure, unspecified congestive heart failure chronicity, unspecified congestive heart failure type I50.9 [facility] [id number] [place] [address] September, Vitamin B12 deficiency E53.8 [place] [id number] [place] [address] September, Anticoagulant long-term use Z79.01 [facility] [id number] [place] [address] September, Anticoagulant long-term use Z79.01 and Congestive heart failure, unspecified congestive heart failure chronicity, unspecified congestive heart failure type I50.9 [place] [address] [place] [address] Aug, Chronic fatigue, unspecified R53.82 [facility] [id number] [place] [address] Aug, Anticoagulant long-term use Z79.01 [facility] [id number] [place] [address] Aug, Nausea R11.0 and Weakness R53.1 [facility] [id number] [place] [address] Aug, [facility] [id number] [place] [address] 04 Aug, 2017 Hematuria R31.9 and Acute cystitis with hematuria N30.01 [place] [address] [address] Aug, [place] [address] [address] Jul, Vitamin B 12 deficiency E53.8 [place] [address] [address] Jul, Anticoagulant long-term use Z79.01 [place] [address] [address] Jun, Chronic fatigue, unspecified R53.82 [place] [address] [address] Jun, Anticoagulant long-term use Z79.01 [place] [address] [address] May, Flu-like symptoms R68.89 and Influenza A J10.1 [place] [address] [address] May, [place] [id number] [place] [address] May, Chronic fatigue, unspecified R53.82 [place] [id number] [place] [address] May, Anticoagulant long-term use Z79.01 [place] [id number] [place] [address] 15 Apr, 2017 Medicare welcome exam Z00.00 ; Anticoagulant long-term use Z79.01 ; Medicare annual wellness visit, initial Z00.00 ; Medicare annual wellness visit, subsequent Z00.00 and Chronic fatigue, unspecified R53.82 [place] [id number] [place] [address] Mar, Chronic fatigue, unspecified R53.82 [place] [id number] [place] [address] Mar, Anticoagulant long-term use Z79.01 [facility] [id number] [place] [address] Mar, Anticoagulant long-term use Z79.01 and Hematuria R31.9 [place] [address] [address] Mar, Hematuria R31.9 [place] [id number] [place] [address] Feb, Anticoagulant long-term use Z79.01 [place] [id number] [place] [address] Feb, Anticoagulant long-term use Z79.01 [place] [id number] [place] [address] Feb, Anticoagulant long-term use Z79.01 [place] [id number] [place] [address] Feb, Chronic fatigue, unspecified R53.82 [place] [id number] [place] [address] Feb, Anticoagulant long-term use Z79.01 [address] [address] [place] [address] Feb, Congestive heart failure, unspecified congestive heart failure chronicity, unspecified congestive heart failure type I50.9 [place] [id number] [place] [address] Feb, Congestive heart failure, unspecified congestive heart failure chronicity, unspecified congestive heart failure type I50.9 [place] [id number] [place] [address] Feb, [place] [id number] [place] [address] Jan, Anticoagulant long-term use Z79.01 [place] [id number] [place] [address] Jan, [place] [id number] [place] [address] Jan, Anticoagulant long-term use Z79.01 and Hematuria R31.9 [place] [address] [address] Jan, Anticoagulant long-term use Z79.01 [place] [id number] [place] [address] Jan, Chronic fatigue, unspecified R53.82 [place] [id number] [place] [address] Jan, Anticoagulant long-term use Z79.01 [place] [id number] [place] [address] Dec, Chronic fatigue, unspecified R53.82 [place] [id number] [place] [address] Dec, [place] [id number] [place] [address] Dec, Chronic fatigue, unspecified R53.82 and Encounter for therapeutic drug level monitoring Z51.81 [facility] [id number] [place] [address] Nov, Encounter for therapeutic drug level monitoring Z51.81 [facility] [id number] [place] [address] Nov, Hematuria R31.9 [place] [id number] [place] [address] Nov, Hematuria R31.9 ; Anticoagulant long-term use Z79.01 and PVD (peripheral vascular disease) I73.9 [place] [id number] [place] [address] Nov, Anticoagulant long-term use Z79.01 [facility] [id number] [place] [address] Nov, Anticoagulant long-term use Z79.01 [facility] [id number] [place] [address] Nov, [place] [address] [address] Nov, Hematuria R31.9 and Acute cystitis with hematuria N30.01 [place] [address] [id number] Oct, [place] [id number] [place] [address] Oct, [place] [address] [address] Oct, Hematuria R31.9 [place] [id number] [place] [address] Oct, Hematuria R31.9 [place] [id number] [place] [address] Oct, Anticoagulant long-term use Z79.01 [place] [id number] [place] [address] Oct, Anticoagulant long-term use Z79.01 [facility] [id number] [place] [address] Oct, [place] [id number] [place] [address] September, PVD (peripheral vascular disease) I73.9 ; Amput leg, unil NOS-comp S88.919A ; Acute cystitis without hematuria N30.00 ; Anticoagulant long-term use Z79.01 and Hypokalemia E87.6 [place] [address] [address] Aug, Anticoagulant long-term use Z79.01 and Bronchitis J40 [facility] [address] [address] Jul, [facility] [address] [address] Jul, Anticoagulant long-term use Z79.01 and Mood disorder F39 [facility] [address] [address] Jul, [facility] [address] [address] May, [facility] [address] [address] May, Hypokalemia E87.6 [place] [address] [address] May, Mood disorder F39 [facility] [address] [address] May, Anticoagulant long-term use Z79.01 [place] [address] [address] Apr, Anticoagulant long-term use Z79.01 [facility] [address] [address] Apr, Anticoagulant long-term use Z79.01 [facility] [address] [address] Apr, [facility] [address] [address] Apr, Anticoagulant long-term use Z79.01 [facility] [address] [address] Apr, Anticoagulant long-term use Z79.01 [facility] [address] [place] [address] Apr, Anticoagulant long-term use Z79.01 [facility] [id number] [place] [address] Mar, [facility] [id number] [place] [address] Mar, [facility] [id number] [place] [address] Mar, Anticoagulant long-term use Z79.01 [facility] [id number] [place] [address] Feb, [facility] [address] [address] Feb, [facility] [id number] [place] [address] Feb, Anticoagulant long-term use Z79.01 [facility] [id number] [place] [address] Feb, Anticoagulant long-term use Z79.01 [facility] [id number] [place] [address] Jan, [facility] [id number] [place] [address] Jan, Anticoagulant long-term use Z79.01 [facility] [id number] [place] [address] Jan, Anticoagulant long-term use Z79.01 [facility] [id number] [place] [address] Dec, Anticoagulant long-term use Z79.01 [facility] [id number] [place] [address] Dec, Anticoagulant long-term use Z79.01 [facility] [id number] [place] [address] Dec, Anticoagulant long-term use Z79.01 and Mood disorder F39 [facility] [id number] [place] [address] Dec, [facility] [id number] [place] [address] Nov, [facility] [id number] [place] [address] Nov, Anticoagulant long-term use Z79.01 [facility] [id number] [place] [address] Nov, Anticoagulant long-term use Z79.01 [facility] [id number] [place] [address] September, Anticoagulant long-term use Z79.01 [facility] [id number] [place] [address] Jul, Anticoagulant long-term use Z79.01 [facility] [id number] [place] [address] May, Anticoagulant long-term use Z79.01 [facility] [id number] [place] [address] May, Anticoagulant long-term use Z79.01 [facility] [id number] [place] [address] May, Anticoagulant long-term use Z79.01 [facility] [id number] [place] [address] May, Anticoagulant long-term use Z79.01 [facility] [id number] [place] [address] May, [facility] [id number] [place] [address] May, Congestive heart failure, unspecified congestive heart failure chronicity, unspecified congestive heart failure type I50.9 and Pulmonary congestion R09.89 [facility] [address] [address] Apr, Cough R05 ; Congestive heart failure, unspecified congestive heart failure chronicity, unspecified congestive heart failure type I50.9 and Pulmonary congestion R09.89 [place] [address] [address] Mar, Hematuria R31.9 [facility] [address] [address] Mar, [place] [address] [address] Mar, Anticoagulant long-term use Z79.01 [place] [address] [address] Mar, [place] [address] [address] Mar, Hematuria R31.9 and Infective urethritis N34.2 [place] [address] [address] Mar, Anticoagulant long-term use Z79.01 [place] [address] [address] Mar, Anticoagulant long-term use Z79.01 [place] [address] [address] Mar, [place] [address] [address] Mar, Anticoagulant long-term use Z79.01 [place] [address] [address] Feb, Peristomal skin breakdown L98.499 [place] [address] [address] Feb, [place] [address] [place] [address] Feb, UTI (urinary tract infection) N39.0 [facility] [address] [place] [address] Jan, [facility] [id number] [address] Dec, High risk medication use V58.69 [facility] [address] [place] [address] Nov, High risk medication use V58.69 [facility] [address] [id number] [address] Nov, [facility] [id number], [place] [address] Nov, UTI (lower urinary tract infection) 599.0 ; URI, acute 465.9 ; Insomnia 780.52 ; Anxiety 300.00 and Lower limb amputation, unspecified level V49.70 [facility] [address] [id number], [place] [address] Oct, UTI (lower urinary tract infection) 599.0 ; URI, acute 465.9 ; Insomnia 780.52 ; Anxiety 300.00 and Lower limb amputation, unspecified level V49.70 [facility] [id number] [address] Aug, [facility] [address] [id number] [address] Aug, [facility] [id number], [place] [address] Jul, [facility] [id number], [place] [address] Jul, [facility] [id number], [place] [address] Jun, [facility] [id number], [place] [address] Jun, [facility] [place] [facility] [address] [id number] [place] [address] Mar, [facility] [place] [facility] [address] [id number] [place] [address] Mar, [facility] [place] [facility] [address] [id number] [place] [address] Mar, [facility] [place] [facility] [address] [id number] [place] [address] Mar, [facility] [place] [facility] [address] [id number] [place] [address] Mar, [facility] [place] [facility] [address] [id number] [place] [address] Feb, [facility] [place] [facility] [address] [id number] [place] [address] Feb, [facility] [place] [facility] [address] [id number], [place] [address] Feb, [facility] [place] [facility] [address] [id number] [place] [address] Feb, [facility] [place] [facility] [address] [id number] [place] [address] Feb, [facility] [place] [facility] [address] [id number], [place] [address] 16 Feb, 2014 [facility] [place] [facility] [address] [id number], [place] [address] 16 Feb, 2014 [facility] [place] [facility] [address] [id number] [place] [address] Feb, [facility] [place] [facility] [address] [id number], [place] [address] Feb, [facility] [place] [facility] [address] [id number], [place] [address] Feb, [facility] [place] [facility] [address] [id number] [place] [address] Feb, 2013 [facility] [place] [facility] [address] [id number] [place] [address] Feb, [facility] [place] [facility] [address] [id number] [place] [address] Feb, [facility] [place] [facility] [address] [address] [id number] [place] [address] Feb, [facility] [place] [facility] [address] [id number] [place] [address] Feb, [facility] [place] [facility] [address] [id number] [place] [address] Feb, [facility] [place] [facility] [address] [id number] [place] [address] Jan, [facility] [place] [facility] [address] [id number] [place] [address] Jan, [facility] [place] [facility] [address] [id number] [place] [address] Jan, [facility] [place] [facility] [address] [id number] [place] [address] Jan, [facility] [place] [facility] [address] [id number] [place] [address] Jan, [facility] [place] [facility] [address] [id number] [place] [address] Nov, [facility] [place] [facility] [address] [id number] [place] [address] Nov, [facility] [place] [facility] [address] [id number] [place] [address] Nov, [facility] [place] [facility] [address] [id number] [place] [address] Nov, [facility] [place] [facility] [address] [id number] [place] [address] Nov, [facility] [place] [facility] [address] [id number] [place] [address] Nov, [facility] [place] [facility] [address] [id number] [place] [address] Oct, [facility] [place] [facility] [address] [id number] [place] [address] Oct, [facility] [place] [facility] [address] [id number] [place] [address] Oct, [facility] [place] [facility] [address] [id number] [place] [address] Oct, [facility] [place] [facility] [address] [id number] [place] [address] Oct, [facility] [place] [facility] [address] [id number] [place] [address] Oct, [facility] [place] [facility] [address] [id number] [place] [address] Oct, [facility] [place] [facility] [address] [id number] [place] [address] September, [facility] [place] [facility] [address] [id number] [place] [address] September, [facility] [place] [facility] [address] [id number] [place] [address] September, [facility] [place] [facility] [address] [id number] [place] [address] September, [facility] [place] [facility] [address] [id number] [place] [address] September, [facility] [place] [facility] [address] [id number] [place] [address] September, [facility] [place] [facility] [address] [id number] [place] [address] September, [facility] [place] [facility] [address] [id number], [place] [address] September, [facility] [place] [facility] [address] [id number] [place] [address] Aug, [facility] [place] [facility] [address] [id number] [place] [address] Aug, [facility] [place] [facility] [address] [id number] [place] [address] Aug, [facility] [place] [facility] [address] [id number] [place] [address] Aug, [facility] [place] [facility] [address] [id number] [place] [address] Jul, [facility] [place] [facility] [address] [id number] [place] [address] Jul, [facility] [place] [facility] [address] [id number] [place] [address] Jun, [facility] [place] [facility] [address] [id number] [place] [address] Jun, [facility] [place] [facility] [address] [id number] [place] [address] Jun, [facility] [place] [facility] [address] [facility] [id number] [place] [address] Jun, [facility] [place] [facility] [address] [id number] [place] [address] Jun, [facility] [place] [facility] [address] [id number] [place] [address] Jun, [facility] [place] [facility] [address] [id number] [place] [address] May, [facility] [place] [facility] [address] [id number] [place] [address] May, [facility] [place] [facility] [address] [id number] [place] [address] May, [facility] [place] [facility] [address] [id number] [place] [address] May, [facility] [place] [facility] [address] [id number] [place] [address] May, [facility] [place] [facility] [address] [id number] [place] [address] May, [facility] [place] [facility] [address] [id number] [place] [address] Feb, [facility] [address] [id number] [place] [address] Feb, [facility] [place] [facility] [address] [id number] [place] [address] Feb, [facility] [address] [id number] [place] [address] Feb, [facility] [place] [facility] [address] [id number] [place] [address] Jan, [facility] [place] [facility] [address] [id number] [place] [address] Jan, [facility] [place] [facility] [address] [id number] [place] [address] Jan, [facility] [place] [facility] [address] [id number] [place] [address] Dec, [facility] [place] [facility] [address] [id number] [place] [address] Nov, [facility] [place] [facility] [address] [id number] [place] [address] Nov, [facility] [place] [facility] [address] [id number] [place] [address] Nov, [facility] [place] [facility] [address] [id number] [place] [address] Nov, [facility] [place] [facility] [address] [id number], [place] [address] Nov, [facility] [address] [id number] [place] [address] Oct, [facility] [address] [id number] [place] [address] September, [facility] [address] [id number] [place] [address] September, [facility] [address] [id number] [place] [address] Aug, [facility] [address] [id number] [place] [address] Aug, [facility] [address] [id number] [place] [address] Jul, [facility] [address] [id number] [place] [address] Jul, [facility] [address] [id number] [place] [address] Jul, [facility] [address] [id number] [place] [address] Jul, [facility] [address] [id number] [place] [address] Jun, [facility] [address] [id number], [place] [address] Jun, [facility] [place] [facility] [address] [id number] [place] [address] Jun, [facility] [place] [facility] [address] [id number] [place] [address] May, [facility] [place] [facility] [address] [id number] [place] [address] May, [facility] [place] [facility] [address] [id number] [place] [address] May, [facility] [place] [facility] [address] [id number] [place] [address] May, [facility] [place] [facility] [address] [id number] [place] [address] Apr, [facility] [place] [facility] [address] [id number] [place] [address] Apr, [facility] [place] [facility] [address] [id number] [place] [address] Apr, [facility] [place] [facility] [address] [id number] [place] [address] Apr, [facility] [place] [facility] [address] [id number] [place] [address] Apr, [facility] [place] [facility] [address] [id number] [place] [address] Apr, [facility] [place] [facility] [address] [id number] [place] [address] Mar, [facility] [place] [facility] [address] [id number] [place] [address] Mar, [facility] [place] [facility] [address] [id number] [place] [address] Mar, [facility] [place] [facility] [address] [id number] [place] [address] Mar, [facility] [place] [facility] [address] [id number] [place] [address] Mar, [facility] [place] [facility] [address] [id number] [place] [address] Mar, [facility] [place] [facility] [address] [id number] [place] [address] Feb, [facility] [place] [facility] [address] [id number] [place] [address] Feb, [facility] [place] [facility] [address] [id number] [place] [address] Feb, [facility] [place] [facility] [address] [id number] [place] [address] Feb, [facility] [place] [facility] [address] [id number] [place] [address] Jan, [facility] [place] [facility] [address] [id number] [place] [address] Jan, [facility] [place] [facility] [address] [id number] [place] [address] Jan, [facility] [place] [facility] [address] [id number] [place] [address] Jan, [facility] [place] [facility] [address] [id number] [place] [address] Dec, [facility] [place] [facility] [address] [id number] [place] [address] Dec, [facility] [place] [facility] [address] [id number] [place] [address] Nov, [facility] [place] [facility] [address] [id number] [place] [address] Oct, [facility] [place] [facility] [address] [id number] [place] [address] Oct, [facility] [place] [facility] [address] [id number], [place] [address] Oct, [facility] [place] [facility] [address] [id number], [place] [address] September, [facility] [place] [facility] [address] [id number] [place] [address] September, [facility] [place] [facility] [address] [id number] [place] [address] September, [facility] [place] [facility] [address] [id number] [place] [address] September, [facility] [place] [facility] [address] [id number] [place] [address] September, [facility] [address] [id number] [place] [address] September, [facility] [place] [facility] [address] [id number] [place] [address] September, [facility] [address] [id number] [place] [address] Jul, [facility] [place] [facility] [address] [id number] [place] [address] Jul, [facility] [place] [facility] [address] [id number] [place] [address], [place] [address] Jun, [facility] [place] [facility] [address] [id number] [place] [address] Jun, [facility] [place] [facility] [address] [facility] [id number] [place] [address] Jun, [facility] [place] [facility] [address] [id number] [place] [address] May, [facility] [place] [facility] [address] [id number] [place] [address] Mar, [facility] [place] [facility] [address] [facility] [id number] [place] [address] Mar, [facility] [place] [facility] [address] [id number] [place] [address] 14 Mar, 2011 [facility] [place] [facility] [address] [id number] [place] [address] Feb, [facility] [place] [facility] [address] [id number] [place] [address] 18 Feb, 2011 [facility] [place] [facility] [address] [id number] [place] [address] 13 Dec, 2009 [facility] [place] [facility] [address] [facility] [id number] [place] [address] May, [facility] [address] [facility] [id number], [place] [address] Apr, [facility] [address] [id number], [place] [address] Apr, [facility] [address] [id number], [place] [address] Apr, [facility] [id number], [place] [address] Apr, [facility] [address] [id number], [place] [address] Feb, [facility] [id number], [place] [address] Oct, IMMUNIZATIONS No Known Immunizations SOCIAL HISTORY [...] 5th toe removal 06/25/2009 Hospitalization History pneumonia[facility] hypoxia-[facility] 11/03/16
--- OUTSIDE RECORDS SUMMARY | 2018-12-05 11:34 | XMS REPORT ---
Author Author ERIK SAMAYOA [facility] Address [address] [place] [address] Care Team Providers Care Set Illustrator Name Role Phone ERIK SAMAYOA Unavailable PROBLEMS Type Condition ICD9-CM Code [id number] Code Onset Dates Condition Status SNOMED Code Problem Mood disorder F39 Active 55802336 Problem Amput leg, unil NOS-comp S88.919A Active 52010243 Problem PVD (peripheral vascular disease) I73.9 Active 906455501 Problem Acute cystitis with hematuria N30.01 Active 70870863 Problem Chronic obstructive pulmonary disease, unspecified COPD type J44.9 Active 11582380 Problem Anticoagulant long-term use Z79.01 Active 016790905 Problem Vitamin B12 deficiency E53.8 Dec, Active 774893009 Problem Major depressive disorder, single episode, unspecified F32.9 Active 75239158 Problem Chronic fatigue, unspecified R53.82 Active 636598654 Problem Congestive heart failure, unspecified congestive heart failure chronicity, unspecified congestive heart failure type I50.9 Active 15664110 Problem Chronic fatigue R53.82 Active 96665019 Problem Peripheral vascular disease I73.9 Active 360241032 ALLERGIES No Information ENCOUNTERS Encounter Location Date Diagnosis [place] [id number], [place] [address] Oct, Chronic fatigue R53.82 [facility] [place] [id number], [place] [address] Oct, Chronic fatigue R53.82 and Bradycardia R00.1 [facility] [place] [id number] [place] [address] Oct, Chronic fatigue R53.82 [facility] [place] [id number], [place] [address] Oct, Anticoagulant long-term use Z79.01 [facility] [place] [id number], [place] [address] 14 Sep, 2018 Encounter for Medicare annual wellness exam Z00.00 [facility] [place] [id number], [place] [address] 03 Sep, 2018 Anticoagulant long-term use Z79.01 [facility] [place] [address] [address] September, Vitamin B12 deficiency E53.8 [facility] [place] [id number], [place] [address] Aug, Anticoagulant long-term use Z79.01 [facility] [place] [id number], [place] [address] Jul, Vitamin B12 deficiency E53.8 [place] [id number], [place] [address] Jul, Anticoagulant long-term use Z79.01 [facility] [place] [id number], [place] [address] Jul, [facility] [place] [id number] [place] [address] Jun, [facility] [place] [address] [address] Jun, Vitamin B12 deficiency E53.8 [facility] [place] [id number], [place] [address] 27 Jun, 2018 Anticoagulant long-term use Z79.01 [facility] [place] [address] [place] [id number] [address] 13 Jun, 2018 Encounter for Medicare annual wellness exam Z00.00 ; Major depressive disorder, single episode, unspecified F32.9 ; PVD (peripheral vascular disease) I73.9 ; Congestive heart failure, unspecified congestive heart failure chronicity, unspecified congestive heart failure type I50.9 and Chronic obstructive pulmonary disease, unspecified COPD type J44.9 [facility] [place] [id number] [place] [address] May, Vitamin B12 deficiency E53.8 [facility] [place] [address] [place] [id number] [place] [address] May, Anticoagulant long-term use Z79.01 [facility] [place] [address] [id number] [place] [address] Apr, [facility] [place] [address] [id number] [place] [address] Apr, Anticoagulant long-term use Z79.01 [facility] [place] [address] [id number] [place] [address] Apr, Anticoagulant long-term use Z79.01 [facility] [place] [address] [place] [id number] [place] [address] Mar, Anticoagulant long-term use Z79.01 [facility] [place] [address] [place] [id number] [place] [address] Mar, Chronic fatigue R53.82 [facility] [place] [address] [place] [id number] [place] [address] Feb, [facility] [place] [id number] [place] [address] Feb, Vitamin B12 deficiency E53.8 [facility] [place] [address] [id number] [place] [address] Feb, Vitamin B12 deficiency E53.8 [facility] [place] [address] [place] [id number] [place] [address] Feb, Vitamin B12 deficiency E53.8 and Anticoagulant long-term use Z79.01 [facility] [place] [id number] [place] [address] Jan, Anticoagulant long-term use Z79.01 [facility] [place] [id number] [place] [address] Jan, Vitamin B12 deficiency E53.8 [facility] [place] [id number] [place] [address] Jan, Anticoagulant long-term use Z79.01 [facility] [place] [address] [place] [address] [id number] [place] [address] Jan, Major depressive disorder, single episode, unspecified F32.9 [facility] [place] [address] [address] Jan, [facility] [place] [address] [place] [id number] [place] [address] Jan, Anticoagulant long-term use Z79.01 [place] [address] [place] [id number] [place] [address] Dec, Anticoagulant long-term use Z79.01 [place] [address] [place] [id number] [place] [address] Dec, Vitamin B12 deficiency E53.8 [place] [address] [place] [id number] [place] [address] Dec, Major depressive disorder, single episode, unspecified F32.9 [place] [address] [place] [id number] [place] [address] Nov, Vitamin B 12 deficiency E53.8 [place] [address] [place] [id number] [place] [address] Nov, Anticoagulant long-term use Z79.01 ; Mood disorder F39 ; Chronic obstructive pulmonary disease, unspecified COPD type J44.9 ; Peripheral vascular disease I73.9 and Chronic fatigue R53.82 [place] [address] [place] [id number] [place] [address] Nov, Mood disorder F39 [place] [address] [place] [id number] [place] [address] Nov, [place] [address] [place] [id number] [place] [address] Oct, Mood disorder F39 ; Chronic obstructive pulmonary disease, unspecified COPD type J44.9 ; Peripheral vascular disease I73.9 and Chronic fatigue R53.82 [facility] [place] [address] [place] [id number] [place] [address] September, Anticoagulant long-term use Z79.01 and Congestive heart failure, unspecified congestive heart failure chronicity, unspecified congestive heart failure type I50.9 [facility] [place] [address] [address] September, Vitamin B12 deficiency E53.8 [place] [address] [address] September, Anticoagulant long-term use Z79.01 [place] [address] [address] September, Anticoagulant long-term use Z79.01 and Congestive heart failure, unspecified congestive heart failure chronicity, unspecified congestive heart failure type I50.9 [place] [address] [address] Aug, Chronic fatigue, unspecified R53.82 [place] [address] [address] Aug, Anticoagulant long-term use Z79.01 [facility] [place] [address] [place] [id number] [place] [address] Aug, Nausea R11.0 and Weakness R53.1 [facility] [place] [address] [place] [id number] [place] [address] Aug, [facility] [address] [address] Aug, Hematuria R31.9 and Acute cystitis with hematuria N30.01 [facility] [place] [address] [address] Aug, [facility] [place] [address] [place] [address] Jul, Vitamin B 12 deficiency E53.8 [place] [address] [address] Jul, Anticoagulant long-term use Z79.01 [place] [address] [address] Jun, Anticoagulant long-term use Z79.01 [place] [address] [address] Jun, Chronic fatigue, unspecified R53.82 [place] [address] [address] May, Flu-like symptoms R68.89 and Influenza A J10.1 [place] [address] [address] May, [place] [address] [address] May, Anticoagulant long-term use Z79.01 [place] [address] [address] May, Chronic fatigue, unspecified R53.82 [place] [address] [place] [id number] [place] [address] Apr, Medicare welcome exam Z00.00 ; Anticoagulant long-term use Z79.01 ; Medicare annual wellness visit, initial Z00.00 ; Medicare annual wellness visit, subsequent Z00.00 and Chronic fatigue, unspecified R53.82 [place] [address] [place] [id number] [place] [address] Mar, Chronic fatigue, unspecified R53.82 [place] [address] [address] Mar, Anticoagulant long-term use Z79.01 [place] [address] [address] Mar, Anticoagulant long-term use Z79.01 and Hematuria R31.9 [facility] [place] [id number] [place] [address] Mar, Hematuria R31.9 [facility] [place] [id number] [place] [address] Feb, Anticoagulant long-term use Z79.01 [facility] [place] [address] [place] [id number] [place] [address] Feb, Anticoagulant long-term use Z79.01 [facility] [place] [id number] [place] [address] Feb, Anticoagulant long-term use Z79.01 [facility] [place] [address] [place] [id number] [place] [address] Feb, Chronic fatigue, unspecified R53.82 [facility] [place] [address] [place] [id number] [place] [address] Feb, Anticoagulant long-term use Z79.01 [facility] [place] [id number] [place] [address] Feb, Congestive heart failure, unspecified congestive heart failure chronicity, unspecified congestive heart failure type I50.9 [facility] [place] [address], [place] [address] Feb, Congestive heart failure, unspecified congestive heart failure chronicity, unspecified congestive heart failure type I50.9 [facility] [place] [address], [place] [address] Feb, [facility] [place] [address] [place] [id number] [place] [address] Jan, Anticoagulant long-term use Z79.01 [facility] [place] [address], [place] [address] Jan, [facility] [place] [address] [id number] [place] [address] Jan, Anticoagulant long-term use Z79.01 and Hematuria R31.9 [facility] [place] [address] [id number] [place] [address] Jan, Anticoagulant long-term use Z79.01 [facility] [place] [address] [place] [id number] [place] [address] Jan, Anticoagulant long-term use Z79.01 [facility] [place] [address] [place] [id number] [place] [address] Jan, Chronic fatigue, unspecified R53.82 [place] [address] [place] [id number] [place] [address] Dec, Chronic fatigue, unspecified R53.82 [place] [address] [place] [id number] [place] [address] Dec, [place] [address] [address] Dec, Chronic fatigue, unspecified R53.82 and Encounter for therapeutic drug level monitoring Z51.81 [place] [address] [place] [id number] [place] [address] Nov, Encounter for therapeutic drug level monitoring Z51.81 [place] [address] [place] [id number] [place] [address] Nov, Hematuria R31.9 [place] [address] [place] [id number] [place] [address] Nov, Hematuria R31.9 ; Anticoagulant long-term use Z79.01 and PVD (peripheral vascular disease) I73.9 [place] [address] [place] [id number] [place] [address] Nov, Anticoagulant long-term use Z79.01 [place] [id number] [place] [address] Nov, Anticoagulant long-term use Z79.01 [facility] [place] [address] [id number] [place] [address] Nov, [place] [address] [place] [id number] [place] [address] Nov, Hematuria R31.9 and Acute cystitis with hematuria N30.01 [facility] [id number] [place] [id number] Oct, [place] [address] [address] Oct, [place] [address] [place] [id number] [place] [address] Oct, Hematuria R31.9 [place] [address] [address] Oct, Hematuria R31.9 [place] [address] [address] Oct, Anticoagulant long-term use Z79.01 [place] [address] [place] [id number] [place] [address] Oct, Anticoagulant long-term use Z79.01 [place] [address] [address] Oct, [place] [address] [place] [id number] [place] [address] September, PVD (peripheral vascular disease) I73.9 ; Amput leg, unil NOS-comp S88.919A ; Acute cystitis without hematuria N30.00 ; Anticoagulant long-term use Z79.01 and Hypokalemia E87.6 [place] [address] [address] Aug, Anticoagulant long-term use Z79.01 and Bronchitis J40 [place] [address] [place] [id number] [place] [address] Jul, [place] [address] [address] Jul, Anticoagulant long-term use Z79.01 and Mood disorder F39 [facility] [place] [address] [address] Jul, [facility] [place] [address] [address] May, [facility] [place] [address] [address] May, Hypokalemia E87.6 [facility] [place] [address] [address] May, Mood disorder F39 [facility] [place] [address] [address] May, Anticoagulant long-term use Z79.01 [place] [address] [address] Apr, Anticoagulant long-term use Z79.01 [facility] [place] [address] [address] Apr, Anticoagulant long-term use Z79.01 [place] [address] [address] Apr, [facility] [place] [id number] [place] [address] Apr, Anticoagulant long-term use Z79.01 [facility] [place] [address] [address] Apr, Anticoagulant long-term use Z79.01 [place] [address] [address] Apr, Anticoagulant long-term use Z79.01 [facility] [place] [address] [address] Mar, [facility] [place] [address] [address] Mar, [facility] [place] [id number] [place] [address] Mar, Anticoagulant long-term use Z79.01 [facility] [place] [id number] [place] [address] Feb, [facility] [place] [id number] [place] [address] Feb, [facility] [place] [id number] [place] [address] Feb, Anticoagulant long-term use Z79.01 [facility] [place] [address] [address] Feb, Anticoagulant long-term use Z79.01 [facility] [place] [id number] [place] [address] Jan, [facility] [place] [id number] [place] [address] Jan, Anticoagulant long-term use Z79.01 [facility] [place] [id number] [place] [address] Jan, Anticoagulant long-term use Z79.01 [facility] [place] [id number] [place] [address] Dec, Anticoagulant long-term use Z79.01 [facility] [place] [id number] [place] [address] Dec, Anticoagulant long-term use Z79.01 [facility] [place] [id number] [place] [address] Dec, Anticoagulant long-term use Z79.01 and Mood disorder F39 [facility] [place] [id number] [place] [address] Dec, [facility] [place] [id number] [place] [address] Nov, [facility] [place] [address], [place] [address] Nov, Anticoagulant long-term use Z79.01 [facility] [place] [id number] [place] [address] Nov, Anticoagulant long-term use Z79.01 [facility] [place] [id number] [place] [address] September, Anticoagulant long-term use Z79.01 [facility] [place] [id number] [place] [address] Jul, Anticoagulant long-term use Z79.01 [facility] [place] [id number] [place] [address] May, Anticoagulant long-term use Z79.01 [place] [id number] [place] [address] May, Anticoagulant long-term use Z79.01 [facility] [place] [id number] [place] [address] May, Anticoagulant long-term use Z79.01 [place] [id number] [place] [address] May, Anticoagulant long-term use Z79.01 [place] [id number] [place] [address] May, [facility] [place] [id number] [place] [address] May, Congestive heart failure, unspecified congestive heart failure chronicity, unspecified congestive heart failure type I50.9 and Pulmonary congestion R09.89 [place] [id number] [place] [address] Apr, Cough R05 ; Congestive heart failure, unspecified congestive heart failure chronicity, unspecified congestive heart failure type I50.9 and Pulmonary congestion R09.89 [place] [id number] [place] [phone] Mar, Hematuria R31.9 [facility] [place], [facility] [address] [phone] Mar, [facility] [place], [facility] [id number] [place] [phone] Mar, Anticoagulant long-term use Z79.01 [facility] [place], [facility] [address] [phone] Mar, [facility] [place] [address] [phone] Mar, Hematuria R31.9 and Infective urethritis N34.2 [place] [id number] [place] [id number] Mar, Anticoagulant long-term use Z79.01 [place] [address] [phone] Mar, Anticoagulant long-term use Z79.01 [facility] [place], [facility] [id number] [place] [phone] Mar, [facility] [place], [facility] [id number] [place] [phone] Mar, Anticoagulant long-term use Z79.01 [facility] [place], [facility] [id number] [place] [phone] Feb, Peristomal skin breakdown L98.499 [facility] [place], [facility] [id number] [place] [phone] Feb, [facility] [place] [address] [address] Feb, UTI (urinary tract infection) N39.0 [facility] [place] [id number] [place] [address] Jan, [facility] [place] [address] [address] Dec, High risk medication use V58.69 [facility] [place] [address] [id number] [address] Nov, High risk medication use V58.69 [facility] [place] [id number] [address] Nov, [facility] [place] [id number] [place] [address] Nov, UTI (lower urinary tract infection) 599.0 ; URI, acute 465.9 ; Insomnia 780.52 ; Anxiety 300.00 and Lower limb amputation, unspecified level V49.70 [facility] [place] [id number] [place] [address] Oct, UTI (lower urinary tract infection) 599.0 ; URI, acute 465.9 ; Insomnia 780.52 ; Anxiety 300.00 and Lower limb amputation, unspecified level V49.70 [facility] [place] [id number] [address] Aug, [facility] [place] [id number] [address] Aug, [facility] [place] [id number], [place] [address] Jul, [facility] [place] [address] [id number], [place] [address] Jul, [facility] [place] [address] [id number] [address] Jun, [facility] [place] [address] [id number] [address] Jun, [facility] [place] [id number], [place] [address] Mar, [facility] [place] [id number] [address] Mar, [facility] [place] [facility] [address] [id number] [place] [address] Mar, [facility] [place] [facility] [address] [id number] [place] [address] Mar, [facility] [place] [facility] [address] [id number] [place] [address] Mar, [facility] [place] [facility] [address] [id number] [place] [address] Feb, [facility] [place] [facility] [address] [id number] [place] [address] Feb, [facility] [place] [facility] [address] [id number] [place] [address] Feb, [facility] [place] [facility] [address] [id number] [place] [address] Feb, [facility] [place] [facility] [address] [id number] [place] [address] Feb, [facility] [place] [facility] [address] [id number] [place] [address] Feb, [facility] [place] [facility] [address] [id number] [place] [address] Feb, [facility] [place] [facility] [address] [id number] [place] [address] Feb, [facility] [place] [facility] [address] [id number] [place] [address] Feb, [facility] [place] [facility] [address] [id number] [place] [address] Feb, [facility] [place] [facility] [address] [id number] [place] [address] Feb, [facility] [place] [facility] [address] [id number] [place] [address] Feb, [facility] [place] [facility] [address] [id number] [place] [address] Feb, [facility] [place] [facility] [address] [id number] [place] [address] Feb, [facility] [place] [facility] [address] [id number] [place] [address] Feb, [facility] [place] [facility] [address] [id number] [place] [address] Feb, [facility] [place] [facility] [address] [id number] [place] [address] Jan, [facility] [place] [facility] [address] [id number] [place] [address] Jan, [facility] [place] [facility] [address] [id number] [place] [address] Jan, [facility] [place] [facility] [address] [id number] [place] [address] Jan, [facility] [place] [facility] [address] [id number] [place] [address] Jan, [facility] [place] [facility] [address] [id number] [place] [address] Nov, [facility] [place] [facility] [address] [id number] [place] [address] Nov, [facility] [place] [facility] [address] [id number] [place] [address] Nov, [facility] [place] [facility] [address] [id number] [address] Nov, [facility] [place] [facility] [address] [id number] [place] [address] Nov, [facility] [place] [facility] [address] [id number] [place] [address] Nov, [facility] [place] [facility] [address] [id number] [place] [address] Oct, [facility] [place] [facility] [address] [id number] [place] [address] Oct, [facility] [place] [facility] [address] [id number] [place] [address] Oct, [facility] [place] [facility] [address] [id number] [place] [address] Oct, [facility] [place] [facility] [address] [id number] [place] [address] Oct, [facility] [place] [facility] [address] [id number] [place] [address] Oct, [facility] [place] [facility] [address] [id number] [place] [address] Oct, [facility] [place] [facility] [address] [id number] [place] [address] September, [facility] [place] [facility] [address] [id number] [place] [address] September, [facility] [place] [facility] [address] [id number] [place] [address] September, [facility] [place] [facility] [address] [id number] [place] [address] September, [facility] [place] [facility] [address] [id number] [place] [address] September, [facility] [place] [facility] [address] [id number] [place] [address] September, [facility] [place] [facility] [address] [id number] [place] [address] September, [facility] [place] [facility] [address] [id number] [place] [address] September, [facility] [place] [facility] [address] [id number] [place] [address] Aug, [facility] [place] [facility] [address] [id number] [place] [address] Aug, [facility] [place] [facility] [address] [id number] [place] [address] Aug, [facility] [place] [facility] [address] [id number] [place] [address] Aug, [facility] [place] [facility] [address] [id number] [place] [address] Jul, [facility] [place] [facility] [address] [id number] [place] [address] Jul, [facility] [place] [facility] [address] [id number] [place] [address] Jun, [facility] [place] [facility] [address] [id number] [place] [address] Jun, [facility] [place] [facility] [address] [id number] [place] [address] Jun, [facility] [place] [facility] [address] [id number] [place] [address] Jun, [facility] [place] [facility] [address] [id number] [place] [address] Jun, [facility] [place] [facility] [address] [id number] [place] [address] Jun, [facility] [place] [facility] [address] [id number] [place] [address] May, [facility] [place] [facility] [address] [id number] [place] [address] May, [facility] [place] [facility] [address] [id number] [place] [address] May, [facility] [place] [facility] [address] [id number] [place] [address] May, [facility] [place] [facility] [address] [id number] [place] [address] May, [facility] [place] [facility] [address] [id number] [place] [address] May, [facility] [address] [id number] [place] [address] Feb, [facility] [place] [facility] [address] [id number] [place] [address] Feb, [facility] [place] [facility] [address] [id number] [place] [address] Feb, [facility] [place] [facility] [address] [id number] [place] [address] Feb, [facility] [address] [id number] [place] [address] Jan, [facility] [place] [facility] [address] [id number] [place] [address] Jan, [facility] [address] [id number] [place] [address] Jan, [facility] [place] [facility] [address] [id number] [place] [address] Dec, [facility] [place] [facility] [address] [id number] [place] [address] Nov, [facility] [place] [facility] [address] [id number] [place] [address] Nov, [facility] [place] [facility] [address] [id number] [place] [address] Nov, [facility] [place] [facility] [address] [id number] [place] [address] Nov, [facility] [place] [facility] [address] [id number] [place] [address] Nov, [facility] [place] [facility] [address] [id number] [place] [address] Oct, [facility] [place] [facility] [address] [id number] [place] [address] September, [facility] [place] [facility] [address] [id number] [place] [address] September, [facility] [address] [id number] [place] [address] Aug, [facility] [place] [facility] [address] [id number] [place] [address] Aug, [facility] [address] [id number] [place] [address] Jul, [facility] [place] [facility] [address] [id number] [place] [address] Jul, [facility] [place] [facility] [address] [id number] [place] [address] Jul[facility] [address] [id number] [place] [address] Jul, [facility] [address] [id number] [place] [address] Jun, [facility] [address] [id number] [place] [address] Jun, [facility] [address] [id number] [place] [address] Jun, [facility] [place] [facility] [address] [id number] [place] [address] May, [facility] [place] [facility] [address] [id number] [place] [address] May, [facility] [place] [facility] [address] [id number] [place] [address] May, [facility] [place] [facility] [address] [id number] [place] [address] May, [facility] [place] [facility] [address] [id number] [place] [address] Apr, [facility] [place] [facility] [address] [id number] [place] [address] Apr, [facility] [place] [facility] [address] [id number] [place] [address] Apr, [facility] [place] [facility] [address] [id number] [place] [address] Apr, [facility] [place] [facility] [address] [id number] [place] [address] Apr, [facility] [place] [facility] [address] [id number] [place] [address] Apr, [facility] [place] [facility] [address] [id number] [place] [address] Mar, [facility] [place] [facility] [address] [id number] [place] [address] Mar, [facility] [place] [facility] [address] [id number] [place] [address] Mar, [facility] [place] [facility] [address] [id number] [place] [address] Mar, [facility] [place] [facility] [address] [id number] [place] [address] Mar, [facility] [place] [facility] [address] [id number] [place] [address] Mar, [facility] [place] [facility] [address] [id number] [address] Feb, [facility] [place] [facility] [address] [id number], [place] [address] Feb, [facility] [place] [facility] [address] [id number] [place] [address] Feb, [facility] [place] [facility] [address] [id number] [address] Feb, [facility] [place] [facility] [address] [id number] [place] [address] Jan, [facility] [place] [facility] [address] [id number] [place] [address] 25 Jan, 2012 [facility] [address] [id number] [place] [address] 24 Jan, 2012 [facility] [address] [id number] [place] [address] 10 Jan, 2012 [facility] [address] [id number] [place] [address] Dec, [facility] [address] [id number] [place] [address] Dec, [facility] [address] [id number] [place] [address] Nov, [facility] [address] [id number] [place] [address] Oct, [facility] [address] [id number] [place] [address] Oct, [facility] [address] [id number] [place] [address] Oct, [facility] [address] [id number] [place] [address] September, [facility] [address] [id number] [place] [address] September, [facility] [address] [id number] [place] [address] September, [facility] [address] [id number] [place] [address] September, [facility] [place] [facility] [address] [id number] [place] [address] September, [facility] [address] [id number] [place] [address] September, [facility] [address] [id number] [place] [address] September, [facility] [address] [id number] [place] [address] Jul, [facility] [place] [facility] [address] [id number] [place] [address] Jul, [facility] [place] [facility] [address] [id number] [place] [address] Jun, [facility] [place] [facility] [address] [id number] [place] [address] Jun, [facility] [place] [facility] [address] [id number] [place] [address] Jun, [facility] [place] [facility] [address] [id number] [place] [address] May, [facility] [place] [facility] [address] [id number] [place] [address] Mar, [facility] [place] [facility] [address] [id number] [place] [address] Mar, [facility] [place] [facility] [address] [id number] [place] [address] Mar, [facility] [place] [facility] [address] [facility] [id number] [place] [address] Feb, [facility] [place] [facility] [address] [id number], [place] [address] Feb, [facility] [place] [facility] [address] [id number], [place] [address] Dec, [facility] [place] [facility] [address] [id number] [place] [address] 15 May, 2009 [facility] [place] [facility] [address] [id number], [place] [address] Apr, [facility] [place] [facility] [address] [id number] [place] [address] Apr, [facility] [place] [facility] [address] [facility] [id number] [place] [address] 14 Apr, 2009 [facility] [place] [address] [facility] [id number], [place] [address] Apr, [facility] [place] [address] [facility] [id number], [place] [address] Feb, [facility] [place] [address] [facility] [id number], [place] [address] Oct, IMMUNIZATIONS No Known Immunizations SOCIAL HISTORY [...] 5th toe removal 06/25/2009 Hospitalization History pneumonia, hypoxia-VC 11/03/16
--- OUTSIDE RECORDS SUMMARY | 2018-12-05 11:35 | XMS REPORT ---
Author Author Migration, Doctor Organization [facility] Address Unknown Phone Unavailable Care Team Providers Care Storage Specialist Name Role Phone Migration, Doctor Unavailable Unavailable PROBLEMS Type Condition ICD9-CM Code FUN35-UE Code Onset Dates Condition Status SNOMED Code Problem Mood disorder F39 Active 82370037 Problem Amput leg, unil NOS-comp S88.919A Active 81130375 Problem PVD (peripheral vascular disease) I73.9 Active 475141993 Problem Acute cystitis with hematuria N30.01 Active 31295964 Problem Chronic obstructive pulmonary disease, unspecified COPD type J44.9 Active 44207877 Problem Anticoagulant long-term use Z79.01 Active 383881413 Problem Vitamin B12 deficiency E53.8 Dec, Active 570642441 Problem Major depressive disorder, single episode, unspecified F32.9 Active 25638167 Problem Chronic fatigue, unspecified R53.82 Active 997749387 Problem Congestive heart failure, unspecified congestive heart failure chronicity, unspecified congestive heart failure type I50.9 Active 04256251 Problem Chronic fatigue R53.82 Active 49652272 Problem Peripheral vascular disease I73.9 Active 164928803 ALLERGIES No Information ENCOUNTERS Encounter Location Date Diagnosis [place] [id number] [place] [address] 12 Oct, 2018 [place] [id number] [place] [address] September, Encounter for Medicare annual wellness exam Z00.00 [place] [address] [place] [id number] [place] [address] September, Vitamin B12 deficiency E53.8 [place] [address] [place] [address] September, Anticoagulant long-term use Z79.01 [place] [address] [place] [id number] [place] [address] Aug, Anticoagulant long-term use Z79.01 [facility] [address] [address] Jul, Vitamin B12 deficiency E53.8 [facility] [address] [place] [address] Jul, Anticoagulant long-term use Z79.01 [place] [address] [place] [address] Jul, [place] [address] [place] [address] Jun, [place] [address] [id number] [place] [address] Jun, Vitamin B12 deficiency E53.8 [place] [address] [address] Jun, Anticoagulant long-term use Z79.01 [place] [address] [address] Jun, Encounter for Medicare annual wellness exam Z00.00 ; Major depressive disorder, single episode, unspecified F32.9 ; PVD (peripheral vascular disease) I73.9 ; Congestive heart failure, unspecified congestive heart failure chronicity, unspecified congestive heart failure type I50.9 and Chronic obstructive pulmonary disease, unspecified COPD type J44.9 [place] [address], [place] [address] May, Vitamin B12 deficiency E53.8 [place] [address], [place] [address] May, Anticoagulant long-term use Z79.01 [place] [address] [address] Apr, [place] [address] [address] Apr, Anticoagulant long-term use Z79.01 [place] [address] [place] [id number] [place] [address] Apr, Anticoagulant long-term use Z79.01 [facility] [id number] [place] [address] Mar, Chronic fatigue R53.82 [facility] [address] [place] [id number] [place] [address] Mar, Anticoagulant long-term use Z79.01 [facility] [address] [place] [id number] [place] [address] Feb, [place] [address] [address] Feb, Vitamin B12 deficiency E53.8 [place] [address] [id number] [place] [address] Feb, Vitamin B12 deficiency E53.8 [place] [address] [address] Feb, Vitamin B12 deficiency E53.8 and Anticoagulant long-term use Z79.01 [place] [address] [id number] [place] [address] Jan, Anticoagulant long-term use Z79.01 [facility] [address] [place] [id number] [place] [address] Jan, Vitamin B12 deficiency E53.8 [facility] [address] [place] [id number] [place] [address] Jan, Anticoagulant long-term use Z79.01 [facility] [address] [place] [id number] [place] [address] Jan, Major depressive disorder, single episode, unspecified F32.9 [facility] [address] [place] [id number] [place] [address] Jan, [facility] [address] [address] Jan, Anticoagulant long-term use Z79.01 [facility] [address], [place] [address] Dec, Anticoagulant long-term use Z79.01 [facility] [address], [place] [address] Dec, Vitamin B12 deficiency E53.8 [place] [address] [place] [id number] [place] [address] Dec, Major depressive disorder, single episode, unspecified F32.9 [place] [address], [place] [address] Nov, Vitamin B 12 deficiency E53.8 [place] [address], [place] [address] Nov, Anticoagulant long-term use Z79.01 ; Mood disorder F39 ; Chronic obstructive pulmonary disease, unspecified COPD type J44.9 ; Peripheral vascular disease I73.9 and Chronic fatigue R53.82 [place] [address], [place] [address] Nov, Mood disorder F39 [place] [address] [place] [address] Nov, [place] [address], [place] [address] Oct, Mood disorder F39 ; Chronic obstructive pulmonary disease, unspecified COPD type J44.9 ; Peripheral vascular disease I73.9 and Chronic fatigue R53.82 [place] [address], [place] [address] September, Anticoagulant long-term use Z79.01 and Congestive heart failure, unspecified congestive heart failure chronicity, unspecified congestive heart failure type I50.9 [place] [address], [place] [address] September, Vitamin B12 deficiency E53.8 [place] [address] [place] [id number] [place] [address] September, Anticoagulant long-term use Z79.01 [place] [address] [address] September, Anticoagulant long-term use Z79.01 and Congestive heart failure, unspecified congestive heart failure chronicity, unspecified congestive heart failure type I50.9 [place] [address] [address] Aug, Chronic fatigue, unspecified R53.82 [place] [address] [address] Aug, Anticoagulant long-term use Z79.01 [place] [address] [place] [id number] [place] [address] Aug, Nausea R11.0 and Weakness R53.1 [place] [address] [address] Aug, [facility] [address] [address] Aug, Hematuria R31.9 and Acute cystitis with hematuria N30.01 [place] [address] [place] [id number] [place] [address] Aug, [place] [address] [place] [id number] [place] [address] Jul, Vitamin B 12 deficiency E53.8 [place] [address] [place] [id number] [place] [address] Jul, Anticoagulant long-term use Z79.01 [place] [address] [address] Jun, Chronic fatigue, unspecified R53.82 [facility] [address] [place] [id number] [place] [address] Jun, Anticoagulant long-term use Z79.01 [place] [address] [place] [address] May, Flu-like symptoms R68.89 and Influenza A J10.1 [place] [address] [place] [id number] [place] [address] May, [place] [address] [place] [id number] [place] [address] May, Chronic fatigue, unspecified R53.82 [place] [address] [place] [id number] [place] [address] May, Anticoagulant long-term use Z79.01 [place] [address] [place] [id number] [place] [address] Apr, Medicare welcome exam Z00.00 ; Anticoagulant long-term use Z79.01 ; Medicare annual wellness visit, initial Z00.00 ; Medicare annual wellness visit, subsequent Z00.00 and Chronic fatigue, unspecified R53.82 [place] [address] [place] [id number] [place] [address] Mar, Chronic fatigue, unspecified R53.82 [place] [address] [place] [id number] [place] [address] Mar, Anticoagulant long-term use Z79.01 [place] [address] [place] [id number] [place] [address] Mar, Anticoagulant long-term use Z79.01 and Hematuria R31.9 [place] [address] [place] [id number] [place] [address] Mar, Hematuria R31.9 [place] [address] [place] [id number] [place] [address] Feb, Anticoagulant long-term use Z79.01 [place] [address] [place] [id number] [place] [address] Feb, Anticoagulant long-term use Z79.01 [place] [address] [place] [id number] [place] [address] Feb, Anticoagulant long-term use Z79.01 [place] [address] [place] [id number] [place] [address] Feb, Chronic fatigue, unspecified R53.82 [place] [address] [place] [id number] [place] [address] Feb, Anticoagulant long-term use Z79.01 [place] [address] [place] [id number] [place] [address] Feb, Congestive heart failure, unspecified congestive heart failure chronicity, unspecified congestive heart failure type I50.9 [place] [address] [place] [id number] [place] [address] Feb, Congestive heart failure, unspecified congestive heart failure chronicity, unspecified congestive heart failure type I50.9 [place] [address] [address] Feb, [place] [address] [place] [id number] [place] [address] Jan, Anticoagulant long-term use Z79.01 [place] [address] [place] [id number] [place] [address] Jan, [place] [address] [place] [id number] [place] [address] Jan, Anticoagulant long-term use Z79.01 and Hematuria R31.9 [place] [address] [place] [id number] [place] [address] Jan, Anticoagulant long-term use Z79.01 [place] [address] [place] [id number] [place] [address] Jan, Chronic fatigue, unspecified R53.82 [place] [address] [place] [id number] [place] [address] Jan, Anticoagulant long-term use Z79.01 [place] [address], [place] [address] Dec, Chronic fatigue, unspecified R53.82 [facility] [address] [place] [id number] [place] [address] Dec, [facility] [address] [place] [address] Dec, Chronic fatigue, unspecified R53.82 and Encounter for therapeutic drug level monitoring Z51.81 [facility] [address] [place] [id number] [place] [address] Nov, Encounter for therapeutic drug level monitoring Z51.81 [place] [address] [place] [id number] [place] [address] Nov, Hematuria R31.9 [place] [address] [place] [id number] [place] [address] Nov, Hematuria R31.9 ; Anticoagulant long-term use Z79.01 and PVD (peripheral vascular disease) I73.9 [place] [address] [place] [address] Nov, Anticoagulant long-term use Z79.01 [facility] [address] [place] [address] Nov, Anticoagulant long-term use Z79.01 [place] [address] [place] [address] Nov, [facility] [address] [place] [id number] [place] [address] Nov, Hematuria R31.9 and Acute cystitis with hematuria N30.01 [facility] [address] [place] [id number] [place] [id number] Oct, [place] [address] [place] [id number] [place] [address] Oct, [place] [address] [place] [id number] [place] [address] Oct, Hematuria R31.9 [place] [address] [place] [id number] [place] [address] Oct, Hematuria R31.9 [facility] [address] [place] [id number] [place] [address] Oct, Anticoagulant long-term use Z79.01 [place] [address] [address] Oct, Anticoagulant long-term use Z79.01 [place] [address] [place] [id number] [place] [address] Oct, [place] [address] [place] [id number] [place] [address] September, PVD (peripheral vascular disease) I73.9 ; Amput leg, unil NOS-comp S88.919A ; Acute cystitis without hematuria N30.00 ; Anticoagulant long-term use Z79.01 and Hypokalemia E87.6 [place] [address] [place] [id number] [place] [address] Aug, Anticoagulant long-term use Z79.01 and Bronchitis J40 [place] [address] [place] [id number] [place] [address] Jul, [place] [address] [place] [id number] [place] [address] Jul, Anticoagulant long-term use Z79.01 and Mood disorder F39 [place] [address] [place] [id number] [place] [address] Jul, [place] [address] [place] [id number] [place] [address] May, [place] [address] [place] [id number] [place] [address] May, Hypokalemia E87.6 [place] [address] [place] [id number] [place] [address] May, Mood disorder F39 [facility] [address] [place] [id number] [place] [address] May, Anticoagulant long-term use Z79.01 [facility] [address] [place] [id number] [place] [address] Apr, Anticoagulant long-term use Z79.01 [facility] [address] [address] Apr, Anticoagulant long-term use Z79.01 [facility] [address] [place] [id number] [place] [address] Apr, [facility] [address] [address] Apr, Anticoagulant long-term use Z79.01 [facility] [address] [place] [id number] [place] [address] Apr, Anticoagulant long-term use Z79.01 [facility] [address] [place] [id number] [place] [address] Apr, Anticoagulant long-term use Z79.01 [facility] [address] [place] [id number] [place] [address] Mar, [facility] [address] [place] [id number] [place] [address] Mar, [facility] [address] [place] [id number] [place] [address] Mar, Anticoagulant long-term use Z79.01 [facility] [address] [place] [id number] [place] [address] Feb, [facility] [address] [place] [id number] [place] [address] Feb, [facility] [address] [place] [id number] [place] [address] Feb, Anticoagulant long-term use Z79.01 [facility] [address] [place] [id number] [place] [address] Feb, Anticoagulant long-term use Z79.01 [facility] [address] [id number] [place] [address] Jan, [facility] [address] [place] [id number] [place] [address] Jan, Anticoagulant long-term use Z79.01 [facility] [address] [place] [id number] [place] [address] Jan, Anticoagulant long-term use Z79.01 [facility] [address] [place] [id number] [place] [address] Dec, Anticoagulant long-term use Z79.01 [facility] [address] [place] [id number] [place] [address] Dec, Anticoagulant long-term use Z79.01 [facility] [address] [id number] [place] [address] Dec, Anticoagulant long-term use Z79.01 and Mood disorder F39 [facility] [address] [place] [id number] [place] [address] Dec, [facility] [address] [id number] [place] [address] Nov, [facility] [address] [place] [id number] [place] [address] Nov, Anticoagulant long-term use Z79.01 [facility] [address] [place] [id number] [place] [address] Nov, Anticoagulant long-term use Z79.01 [facility] [address] [id number] [place] [address] September, Anticoagulant long-term use Z79.01 [facility] [address] [place] [id number] [place] [address] Jul, Anticoagulant long-term use Z79.01 [facility] [address] [place] [id number] [place] [address] May, Anticoagulant long-term use Z79.01 [facility] [address] [id number] [place] [address] May, Anticoagulant long-term use Z79.01 [facility] [address] [place] [id number] [place] [address] May, Anticoagulant long-term use Z79.01 [place] [address] [id number] [place] [address] May, Anticoagulant long-term use Z79.01 [place] [address] [id number] [place] [address] May, [place] [address] [id number] [place] [address] May, Congestive heart failure, unspecified congestive heart failure chronicity, unspecified congestive heart failure type I50.9 and Pulmonary congestion R09.89 [place] [address] [place] [id number] [place] [address] Apr, Cough R05 ; Congestive heart failure, unspecified congestive heart failure chronicity, unspecified congestive heart failure type I50.9 and Pulmonary congestion R09.89 [place] [address] [place] [id number] [place] [address] Mar, Hematuria R31.9 [place] [address] [id number] [place] [address] Mar, [place] [id number] [place] [address] Mar, Anticoagulant long-term use Z79.01 [place] [address] [place] [id number] [place] [address] Mar, [place] [id number] [place] [address] Mar, Hematuria R31.9 and Infective urethritis N34.2 [facility] [address] [id number] [place] [address] Mar, Anticoagulant long-term use Z79.01 [facility] [address] [place] [address] Mar, Anticoagulant long-term use Z79.01 [facility] [address] [id number] [place] [address] Mar, [facility] [id number] [place] [address] Mar, Anticoagulant long-term use Z79.01 [facility] [id number] [place] [address] Feb, Peristomal skin breakdown L98.499 [place] [id number] [place] [address] Feb, [facility] [id number] [place] [address] Feb, UTI (urinary tract infection) N39.0 [place] [address] [place] [address] Jan, [place] [address] [place] [address] Dec, High risk medication use V58.69 [facility] [address] [place] [address] Nov, High risk medication use V58.69 [place] [id number] [place] [address] Nov, [facility] [address] [place] [address] Nov, UTI (lower urinary tract infection) 599.0 ; URI, acute 465.9 ; Insomnia 780.52 ; Anxiety 300.00 and Lower limb amputation, unspecified level V49.70 [facility] [address] [address] Oct, UTI (lower urinary tract infection) 599.0 ; URI, acute 465.9 ; Insomnia 780.52 ; Anxiety 300.00 and Lower limb amputation, unspecified level V49.70 [facility] [address] [facility] [id number] [place] [address] Aug, [facility] [address] [facility] [id number] [place] [address] Aug, [facility] [id number] [place] [address] Jul, [facility] [id number] [place] [address] Jul, [facility] [id number] [place] [address] Jun, [facility] [id number] [place] [address] Jun, [facility] [id number] [place] [address] Mar, [facility] [address] [place] [address] Mar, [facility] [address] [place] [address] Mar, [facility] [id number] [address] Mar, [facility] [id number] [place] [address] Mar, [facility] [id number] [address] Feb, [facility] [id number] [address] Feb, [facility] [place] [facility] [address] [id number] [place] [address] Feb, 2013 [facility] [place] [facility] [address] [id number] [place] [address] Feb, [facility] [place] [facility] [address] [id number] [place] [address] Feb, [facility] [place] [facility] [address] [id number] [place] [address] Feb, [facility] [place] [facility] [address] [id number] [place] [address] Feb, [facility] [place] [facility] [address] [id number] [place] [address] Feb, [facility] [place] [facility] [address] [id number] [place] [address] Feb, [facility] [place] [facility] [address] [id number] [place] [address] Feb, [facility] [place] [facility] [address] [id number] [place] [address] Feb, [facility] [place] [facility] [address] [id number], [place] [address] Feb, [facility] [place] [facility] [address] [id number], [place] [address] Feb, [facility] [place] [facility] [address] [id number], [place] [address] Feb, [facility] [place] [facility] [address] [id number], [place] [address] Feb, [facility] [place] [facility] [address] [id number], [place] [address] Feb, [facility] [place] [facility] [address] [id number], [place] [address] Jan, [facility] [place] [facility] [address] [id number], [place] [address] Jan, [facility] [place] [facility] [address] [id number] [place] [address] Jan, 2013 [facility] [place] [facility] [address] [id number] [place] [address] Jan, [facility] [place] [facility] [address] [id number] [place] [address] Jan, [facility] [place] [facility] [address] [id number] [place] [address] Nov, [facility] [place] [facility] [address] [id number] [place] [address] Nov, [facility] [place] [facility] [address] [id number] [place] [address] Nov, [facility] [place] [facility] [address] [id number] [place] [address] Nov, [facility] [place] [facility] [address] [id number] [place] [address] Nov, [facility] [place] [facility] [address] [id number] [place] [address] Nov, [facility] [place] [facility] [address] [id number] [place] [address] Oct, [facility] [place] [facility] [address] [id number] [place] [address] Oct, [facility] [place] [facility] [address] [id number] [place] [address] Oct, [facility] [place] [facility] [address] [id number] [place] [address] Oct, [facility] [place] [facility] [address] [id number] [place] [address] Oct, [facility] [place] [facility] [address] [id number] [place] [address] Oct, [facility] [place] [facility] [address] [id number] [place] [address] Oct, [facility] [place] [facility] [address] [id number] [place] [address] September, [facility] [place] [facility] [address] [id number] [place] [address] September, [facility] [place] [facility] [address] [id number] [place] [address] September, [facility] [place] [facility] [address] [id number] [place] [address] September, [facility] [place] [facility] [address] [id number] [place] [address] September, [facility] [place] [facility] [address] [id number] [place] [address] September, [facility] [place] [facility] [address] [id number] [place] [address] September, [facility] [place] [facility] [address] [id number] [place] [address] September, [facility] [place] [facility] [address] [id number] [place] [address] Aug, [facility] [place] [facility] [address] [id number] [place] [address] Aug, [facility] [place] [facility] [address] [id number] [place] [address] Aug, [facility] [place] [facility] [address] [id number] [place] [address] Aug, [facility] [place] [facility] [address] [id number] [place] [address] Jul, [facility] [place] [facility] [address] [id number] [place] [address] Jul, [facility] [place] [facility] [address] [id number] [place] [address] Jun, [facility] [place] [facility] [address] [id number] [place] [address] Jun, [facility] [place] [facility] [address] [id number] [place] [address] Jun, [facility] [place] [facility] [address] [id number] [place] [address] Jun, [facility] [place] [facility] [address] [id number] [place] [address] Jun, [facility] [place] [facility] [address] [id number] [place] [address] Jun, [facility] [place] [facility] [address] [id number] [place] [address] May, [facility] [place] [facility] [address] [id number] [place] [address] May, [facility] [place] [facility] [address] [id number] [place] [address] May, [facility] [place] [facility] [address] [id number], [place] [address] May, [facility] [place] [facility] [address] [facility] [id number] [place] [address] May, [facility] [place] [facility] [address] [id number], [place] [address] May, [facility] [place] [facility] [address] [id number], [place] [address] Feb, [facility] [place] [facility] [address] [id number], [place] [address] Feb, [facility] [place] [facility] [address] [id number], [place] [address] Feb, [facility] [place] [facility] [address] [facility] [id number] [place] [address] Feb, [facility] [place] [facility] [address] [id number] [place] [address] 04 Jan, 2013 [facility] [address] [id number] [place] [address] Jan, [facility] [address] [id number] [place] [address] Jan, [facility] [address] [id number] [place] [address] Dec, [facility] [address] [id number] [place] [address] Nov, [facility] [address] [id number] [place] [address] Nov, [facility] [address] [id number] [place] [address] Nov, [facility] [address] [id number] [place] [address] Nov, [facility] [address] [id number] [place] [address] Nov, [facility] [address] [id number] [place] [address] Oct, [facility] [address] [id number] [place] [address] September, [facility] [address] [id number] [place] [address] September, [facility] [address] [id number] [place] [address] Aug, [facility] [place] [facility] [address] [id number] [place] [address] Aug, [facility] [place] [facility] [address] [id number] [place] [address] Jul, [facility] [place] [facility] [address] [id number] [place] [address] Jul, [facility] [address] [id number] [place] [address] Jul, [facility] [place] [facility] [address] [id number] [place] [address] Jul, [facility] [place] [facility] [address] [id number] [place] [address] Jun, [facility] [place] [facility] [address] [id number] [place] [address] Jun, [facility] [place] [facility] [address] [id number] [place] [address] Jun, [facility] [place] [facility] [address] [id number] [place] [address] May, [facility] [place] [facility] [address] [id number] [place] [address] May, [facility] [place] [facility] [address] [id number] [place] [address] May, [facility] [place] [facility] [address] [id number] [place] [address] May, [facility] [place] [facility] [address] [id number] [place] [address] Apr, [facility] [place] [facility] [address] [id number] [place] [address] Apr, [facility] [place] [facility] [address] [id number], [place] [address] Apr, [facility] [place] [facility] [address] [id number] [place] [address] Apr, [facility] [place] [facility] [address] [id number] [place] [address] Apr, [facility] [place] [facility] [address] [id number] [place] [address] Apr, [facility] [place] [facility] [address] [id number] [place] [address] Mar, [facility] [place] [facility] [address] [id number] [place] [address] Mar, [facility] [place] [facility] [address] [id number] [place] [address] Mar, [facility] [place] [facility] [address] [id number] [place] [address] Mar, [facility] [place] [facility] [address] [id number] [place] [address] Mar, [facility] [place] [facility] [address] [id number] [place] [address] Mar, [facility] [place] [facility] [address] [id number] [place] [address] Feb, [facility] [place] [facility] [address] [id number] [place] [address] Feb, [facility] [place] [facility] [address] [id number] [place] [address] Feb, [facility] [place] [facility] [address] [id number] [place] [address] Feb, [facility] [place] [facility] [address] [facility] [id number] [place] [address] Jan, [facility] [place] [facility] [address] [id number] [place] [address] 25 Jan, 2012 [facility] [place] [facility] [address] [id number] [place] [address] 24 Jan, 2012 [facility] [place] [facility] [address] [id number] [place] [address] 10 Jan, 2012 [facility] [place] [facility] [address] [id number] [place] [address] Dec, [facility] [place] [facility] [address] [id number] [place] [address] Dec, [facility] [place] [facility] [address] [id number] [place] [address] Nov, [facility] [place] [facility] [address] [id number] [place] [address] Oct, [facility] [place] [facility] [address] [id number] [place] [address] Oct, [facility] [place] [facility] [address] [id number] [place] [address] Oct, [facility] [address] [id number] [place] [address] September, [facility] [place] [facility] [address] [id number] [place] [address] September, [facility] [address] [id number] [place] [address] September, [facility] [address] [id number] [place] [address] September, [facility] [place] [facility] [address] [id number] [place] [address] September, [facility] [place] [facility] [address] [id number] [place] [address] September, [facility] [place] [facility] [address] [id number] [place] [address] September, [facility] [place] [facility] [address] [id number] [place] [address] Jul, [facility] [place] [facility] [address] [id number] [place] [address] Jul, [facility] [place] [facility] [address] [id number] [place] [address] Jun, [facility] [place] [facility] [address] [id number] [place] [address] Jun, [facility] [place] [facility] [address] [id number], [place] [address] Jun, [facility] [id number], [place] [address] May, [facility] [id number], [place] [address] Mar, [facility] [id number], [place] [address] Mar, [facility] [id number] [place] [address] Mar, [facility] [id number] [place] [address] Feb, [facility] [id number] [place] [address] Feb, [facility] [id number] [place] [address] Dec, [facility] [id number], [place] [address] May, [facility] [id number] [place] [address] Apr, [facility] [id number], [place] [address] Apr, [facility] [id number], [place] [address] Apr, [facility] [id number], [place] [address] Apr, [facility] [id number], [place] [address] Feb, [facility] [id number], [place] [address] Oct, IMMUNIZATIONS No Known Immunizations SOCIAL HISTORY Never Assessed REASON FOR VISIT [place] [place] VITAL SIGNS MEDICATIONS Unknown [...] 5th toe removal 06/25/2009 Hospitalization History pneumonia, hypoxia-[facility] 11/03/16
--- OUTSIDE RECORDS SUMMARY | 2018-12-05 11:36 | XMS REPORT ---
Author Author Migration, Doctor Organization [facility] Address Unknown Phone Unavailable Care Team Providers Care Network Operations Center Engineer Name Role Phone Migration, Doctor Unavailable Unavailable PROBLEMS Type Condition ICD9-CM Code VXO51-HT Code Onset Dates Condition Status SNOMED Code Problem Mood disorder F39 Active 34334186 Problem Amput leg, unil NOS-comp S88.919A Active 31931399 Problem PVD (peripheral vascular disease) I73.9 Active 426175341 Problem Acute cystitis with hematuria N30.01 Active 29428104 Problem Chronic obstructive pulmonary disease, unspecified COPD type J44.9 Active 71972593 Problem Anticoagulant long-term use Z79.01 Active 819993362 Problem Vitamin B12 deficiency E53.8 Dec, Active 046009294 Problem Major depressive disorder, single episode, unspecified F32.9 Active 86195515 Problem Chronic fatigue, unspecified R53.82 Active 580239660 Problem Congestive heart failure, unspecified congestive heart failure chronicity, unspecified congestive heart failure type I50.9 Active 69659905 Problem Chronic fatigue R53.82 Active 39992952 Problem Peripheral vascular disease I73.9 Active [id number] ALLERGIES No Information ENCOUNTERS Encounter Location Date Diagnosis [place] [id number] [place] [address] Aug, Anticoagulant long-term use Z79.01 [place] [address] [address] Jul, Vitamin B12 deficiency E53.8 [facility] [address] [place] [address] Jul, Anticoagulant long-term use Z79.01 [facility] [address] [place] [address] Jul, [place] [address] [place] [id number] [place] [address] Jun, [facility] [address] [address] [id number] [place] [address] Jun, Vitamin B12 deficiency E53.8 [facility] [address] [id number] [place] [address] Jun, Anticoagulant long-term use Z79.01 [facility] [address] [id number] [place] [address] 13 Jun, 2018 Encounter for Medicare annual wellness exam Z00.00 ; Major depressive disorder, single episode, unspecified F32.9 ; PVD (peripheral vascular disease) I73.9 ; Congestive heart failure, unspecified congestive heart failure chronicity, unspecified congestive heart failure type I50.9 and Chronic obstructive pulmonary disease, unspecified COPD type J44.9 [place] [address] [place] [id number] [place] [address] May, Vitamin B12 deficiency E53.8 [place] [address] [address] May, Anticoagulant long-term use Z79.01 [place] [address] [place] [id number] [place] [address] Apr, [facility] [address] [place] [id number] [place] [address] Apr, Anticoagulant long-term use Z79.01 [place] [address] [place] [id number] [place] [address] Apr, Anticoagulant long-term use Z79.01 [place] [address] [place] [id number] [place] [address] Mar, Chronic fatigue R53.82 [place] [address] [address] Mar, Anticoagulant long-term use Z79.01 [facility] [address] [place] [id number] [place] [address] Feb, [place] [address] [place] [id number] [address] Feb, Vitamin B12 deficiency E53.8 [facility] [address] [id number] [place] [address] Feb, Vitamin B12 deficiency E53.8 [facility] [address] [place] [address] Feb, Vitamin B12 deficiency E53.8 and Anticoagulant long-term use Z79.01 [facility] [address] [place] [id number] [place] [address] Jan, Anticoagulant long-term use Z79.01 [facility] [address] [id number] [place] [address] Jan, Vitamin B12 deficiency E53.8 [facility] [id number] [place] [address] Jan, Anticoagulant long-term use Z79.01 [facility] [address] [place] [address] Jan, Major depressive disorder, single episode, unspecified F32.9 [facility] [address] [place] [id number] [place] [address] Jan, [facility] [address] [id number] [place] [address] Jan, Anticoagulant long-term use Z79.01 [facility] [address] [place] [address] Dec, Anticoagulant long-term use Z79.01 [facility] [address] [place] [address] Dec, Vitamin B12 deficiency E53.8 [facility] [address] [address] Dec, Major depressive disorder, single episode, unspecified F32.9 [facility] [address] [place] [address] [id number] [address] Nov, Vitamin B 12 deficiency E53.8 [place] [address] [place] [id number] [place] [address] Nov, Anticoagulant long-term use Z79.01 ; Mood disorder F39 ; Chronic obstructive pulmonary disease, unspecified COPD type J44.9 ; Peripheral vascular disease I73.9 and Chronic fatigue R53.82 [place] [address] [place] [id number] [place] [address] Nov, Mood disorder F39 [place] [address] [place] [id number] [place] [address] Nov, [place] [address] [place] [id number] [place] [address] Oct, Mood disorder F39 ; Chronic obstructive pulmonary disease, unspecified COPD type J44.9 ; Peripheral vascular disease I73.9 and Chronic fatigue R53.82 [place] [address] [place] [id number] [place] [address] September, Anticoagulant long-term use Z79.01 and Congestive heart failure, unspecified congestive heart failure chronicity, unspecified congestive heart failure type I50.9 [place] [address] [place] [id number] [place] [address] September, Vitamin B12 deficiency E53.8 [place] [address] [place] [id number] [place] [address] September, Anticoagulant long-term use Z79.01 [place] [address] [place] [id number] [place] [address] September, Anticoagulant long-term use Z79.01 and Congestive heart failure, unspecified congestive heart failure chronicity, unspecified congestive heart failure type I50.9 [place] [address] [place] [address] Aug, Chronic fatigue, unspecified R53.82 [place] [address] [place] [address] Aug, Anticoagulant long-term use Z79.01 [place] [address] [address] Aug, Nausea R11.0 and Weakness R53.1 [place] [address] [address] Aug, [facility] [address] [address] Aug, Hematuria R31.9 and Acute cystitis with hematuria N30.01 [place] [address] [address] Aug, [place] [address] [address] Jul, Vitamin B 12 deficiency E53.8 [place] [address] [address] Jul, Anticoagulant long-term use Z79.01 [place] [address] [address] Jun, Chronic fatigue, unspecified R53.82 [place] [address] [address] Jun, Anticoagulant long-term use Z79.01 [place] [address] [address] May, Flu-like symptoms R68.89 and Influenza A J10.1 [place] [address] [address] May, [place] [address] [address] May, Chronic fatigue, unspecified R53.82 [place] [address] [address] May, Anticoagulant long-term use Z79.01 [facility] [address] [address] 15 Apr, 2017 Medicare welcome exam Z00.00 ; Anticoagulant long-term use Z79.01 ; Medicare annual wellness visit, initial Z00.00 ; Medicare annual wellness visit, subsequent Z00.00 and Chronic fatigue, unspecified R53.82 [place] [address] [place] [id number] [place] [address] Mar, Chronic fatigue, unspecified R53.82 [place] [address] [place] [id number] [place] [address] Mar, Anticoagulant long-term use Z79.01 [place] [address] [place] [id number] [place] [address] Mar, Anticoagulant long-term use Z79.01 and Hematuria R31.9 [place] [address] [place] [id number] [place] [address] Mar, Hematuria R31.9 [place] [address] [place] [id number] [place] [address] Feb, Anticoagulant long-term use Z79.01 [place] [address] [place] [id number] [place] [address] Feb, Anticoagulant long-term use Z79.01 [place] [address] [place] [address] Feb, Anticoagulant long-term use Z79.01 [place] [address] [place] [address] Feb, Chronic fatigue, unspecified R53.82 [place] [address] [place] [id number] [place] [address] Feb, Anticoagulant long-term use Z79.01 [place] [address] [address] Feb, Congestive heart failure, unspecified congestive heart failure chronicity, unspecified congestive heart failure type I50.9 [facility] [address] [address] Feb, Congestive heart failure, unspecified congestive heart failure chronicity, unspecified congestive heart failure type I50.9 [facility] [address] [address] Feb, [facility] [address] [place] [id number] [place] [address] Jan, Anticoagulant long-term use Z79.01 [place] [address] [place] [id number] [place] [address] Jan, [place] [address] [place] [id number] [place] [address] Jan, Anticoagulant long-term use Z79.01 and Hematuria R31.9 [place] [address] [place] [id number] [place] [address] Jan, Anticoagulant long-term use Z79.01 [place] [address] [place] [address] Jan, Chronic fatigue, unspecified R53.82 [place] [address] [place] [address] Jan, Anticoagulant long-term use Z79.01 [place] [address] [address] Dec, Chronic fatigue, unspecified R53.82 [place] [address] [address] Dec, [place] [address] [place] [id number] [place] [address] Dec, Chronic fatigue, unspecified R53.82 and Encounter for therapeutic drug level monitoring Z51.81 [place] [address] [place] [address] Nov, Encounter for therapeutic drug level monitoring Z51.81 [facility] [address] [place] [address] Nov, Hematuria R31.9 [facility] [address] [place] [id number] [place] [address] Nov, Hematuria R31.9 ; Anticoagulant long-term use Z79.01 and PVD (peripheral vascular disease) I73.9 [facility] [address] [place] [id number] [place] [address] Nov, Anticoagulant long-term use Z79.01 [facility] [address] [place] [id number] [place] [address] Nov, Anticoagulant long-term use Z79.01 [facility] [address] [place] [id number] [place] [address] Nov, [facility] [address] [address] Nov, Hematuria R31.9 and Acute cystitis with hematuria N30.01 [facility] [place] [facility] [address] [place] [id number] [place] [id number] Oct, [facility] [address] [place] [id number] [place] [address] Oct, [facility] [address] [place] [id number] [place] [address] Oct, Hematuria R31.9 [facility] [address] [place] [id number] [place] [address] Oct, Hematuria R31.9 [facility] [address] [place] [id number] [place] [address] Oct, Anticoagulant long-term use Z79.01 [facility] [address] [place] [id number] [place] [address] Oct, Anticoagulant long-term use Z79.01 [facility] [address] [place] [id number] [place] [address] Oct, [place] [address] [place] [id number] [place] [address] September, PVD (peripheral vascular disease) I73.9 ; Amput leg, unil NOS-comp S88.919A ; Acute cystitis without hematuria N30.00 ; Anticoagulant long-term use Z79.01 and Hypokalemia E87.6 [place] [address] [address] Aug, Anticoagulant long-term use Z79.01 and Bronchitis J40 [place] [address] [address] Jul, [place] [address] [address] Jul, Anticoagulant long-term use Z79.01 and Mood disorder F39 [place] [address] [address] Jul, [place] [address] [address] May, [place] [address] [address] May, Hypokalemia E87.6 [place] [address] [address] May, Mood disorder F39 [place] [address] [address] May, Anticoagulant long-term use Z79.01 [place] [address] [address] Apr, Anticoagulant long-term use Z79.01 [place] [address] [place] [id number] [place] [address] Apr, Anticoagulant long-term use Z79.01 [place] [address] [place] [address] Apr, [facility] [address] [place] [id number] [place] [address] Apr, Anticoagulant long-term use Z79.01 [facility] [address] [place] [id number] [place] [address] Apr, Anticoagulant long-term use Z79.01 [facility] [address] [address] Apr, Anticoagulant long-term use Z79.01 [facility] [address] [place] [id number] [place] [address] Mar, [facility] [address] [place] [id number] [place] [address] Mar, [facility] [address] [place] [id number] [place] [address] Mar, Anticoagulant long-term use Z79.01 [facility] [address] [place] [id number] [place] [address] Feb, [facility] [address] [place] [id number] [place] [address] Feb, [facility] [address] [place] [id number] [place] [address] Feb, Anticoagulant long-term use Z79.01 [facility] [address] [place] [id number] [place] [address] Feb, Anticoagulant long-term use Z79.01 [facility] [address] [id number] [place] [address] Jan, [facility] [address] [place] [id number] [place] [address] Jan, Anticoagulant long-term use Z79.01 [facility] [address] [place] [id number] [place] [address] Jan, Anticoagulant long-term use Z79.01 [facility] [address] [id number] [place] [address] Dec, Anticoagulant long-term use Z79.01 [facility] [address] [id number] [place] [address] Dec, Anticoagulant long-term use Z79.01 [facility] [address] [address] Dec, Anticoagulant long-term use Z79.01 and Mood disorder F39 [facility] [address] [address] Dec, [facility] [address] [address] Nov, [facility] [address] [address] Nov, Anticoagulant long-term use Z79.01 [facility] [address] [id number] [place] [address] Nov, Anticoagulant long-term use Z79.01 [facility] [address] [address] September, Anticoagulant long-term use Z79.01 [facility] [address] [place] [id number] [place] [address] Jul, Anticoagulant long-term use Z79.01 [facility] [address] [address] May, Anticoagulant long-term use Z79.01 [place] [address] [address] May, Anticoagulant long-term use Z79.01 [facility] [address] [address] May, Anticoagulant long-term use Z79.01 [facility] [address] [place] [address] May, Anticoagulant long-term use Z79.01 [facility] [address] [address] May, [facility] [address] [address] May, Congestive heart failure, unspecified congestive heart failure chronicity, unspecified congestive heart failure type I50.9 and Pulmonary congestion R09.89 [facility] [address] [address] Apr, Cough R05 ; Congestive heart failure, unspecified congestive heart failure chronicity, unspecified congestive heart failure type I50.9 and Pulmonary congestion R09.89 [facility] [address] [address] Mar, Hematuria R31.9 [place] [address] [address] Mar, [facility] [address] [address] Mar, Anticoagulant long-term use Z79.01 [place] [address] [address] Mar, [place] [address] [address] Mar, Hematuria R31.9 and Infective urethritis N34.2 [facility] [address] [address] Mar, Anticoagulant long-term use Z79.01 [place] [address] [address] Mar, Anticoagulant long-term use Z79.01 [facility] [address] [address] Mar, [facility] [address] [place] [address] Mar, Anticoagulant long-term use Z79.01 [facility] [address] [place] [address] Feb, Peristomal skin breakdown L98.499 [facility] [address], [place] [address] Feb, [facility] [address] [place] [id number] [place] [address] Feb, UTI (urinary tract infection) N39.0 [place] [address] [place] [address] Jan, [place] [address] [place] [id number] [place] [address] Dec, High risk medication use V58.69 [place] [address] [place] [id number] [place] [address] Nov, High risk medication use V58.69 [place] [address] [place] [address] Nov, [place] [address] [place] [address] Nov, UTI (lower urinary tract infection) 599.0 ; URI, acute 465.9 ; Insomnia 780.52 ; Anxiety 300.00 and Lower limb amputation, unspecified level V49.70 [facility] [address] [place] [id number] [place] [address] Oct, UTI (lower urinary tract infection) 599.0 ; URI, acute 465.9 ; Insomnia 780.52 ; Anxiety 300.00 and Lower limb amputation, unspecified level V49.70 [place] [address], [place] [address] Aug, [place] [address] [address] Aug, [facility] [place] [facility] [address] [id number] [place] [address] Jul, 2014 [facility] [place] [facility] [address] [id number] [place] [address] Jul, 2014 [facility] [place] [facility] [address] [id number] [place] [address] Jun, 2014 [facility] [place] [facility] [address] [id number] [place] [address] Jun, 2014 [facility] [place] [facility] [address] [id number] [place] [address] Mar, [facility] [place] [facility] [address] [id number] [place] [address] Mar, [facility] [place] [facility] [address] [id number] [place] [address] Mar, [facility] [place] [facility] [address] [id number] [place] [address] Mar, [facility] [place] [facility] [address] [id number] [place] [address] Mar, [facility] [place] [facility] [address] [id number] [place] [address] Feb, [facility] [place] [facility] [address] [id number] [place] [address] Feb, [facility] [place] [facility] [address] [id number] [place] [address] 29 Feb, 2014 [facility] [place] [facility] [address] [id number] [place] [address] Feb, [facility] [place] [facility] [address] [id number] [place] [address] Feb, [facility] [place] [facility] [address] [id number] [place] [address] 16 Feb, 2014 [facility] [place] [facility] [address] [id number] [place] [address] 16 Feb, 2014 [facility] [place] [facility] [address] [id number] [place] [address] Feb, [facility] [place] [facility] [address] [id number] [place] [address] Feb, [facility] [place] [facility] [address] [id number] [place] [address] Feb, [facility] [place] [facility] [address] [id number] [place] [address] Feb, [facility] [place] [facility] [address] [id number] [place] [address] Feb, [facility] [place] [facility] [address] [id number] [place] [address] Feb, [facility] [place] [facility] [address] [id number] [place] [address] Feb, [facility] [place] [facility] [address] [id number] [place] [address] Feb, [facility] [place] [facility] [address] [id number] [place] [address] Feb, [facility] [place] [facility] [address] [id number] [place] [address] 28 Jan, 2014 [facility] [place] [facility] [address] [id number], [place] [address] 26 Jan, 2013 [facility] [place] [facility] [address] [id number], [place] [address] 26 Jan, 2013 [facility] [place] [facility] [address] [id number] [place] [address] 04 Jan, 2014 [facility] [place] [facility] [address] [id number] [place] [address] 04 Jan, 2014 [facility] [place] [facility] [address] [id number] [place] [address] Nov, [facility] [place] [facility] [address] [id number] [place] [address] Nov, [facility] [place] [facility] [address] [id number] [place] [address] Nov, [facility] [place] [facility] [address] [id number] [place] [address] Nov, [facility] [place] [facility] [address] [id number] [place] [address] Nov, [facility] [place] [facility] [address] [id number] [place] [address] Nov, [facility] [place] [facility] [address] [id number] [place] [address] Oct, [facility] [place] [facility] [address] [id number] [place] [address] Oct, [facility] [place] [facility] [address] [id number] [place] [address] Oct, [facility] [place] [facility] [address] [id number] [place] [address] Oct, [facility] [place] [facility] [address] [id number] [place] [address] Oct, [facility] [place] [facility] [address] [id number] [place] [address] Oct, [facility] [place] [facility] [address] [id number] [place] [address] Oct, [facility] [place] [facility] [address] [id number] [place] [address] September, [facility] [place] [facility] [address] [id number] [place] [address] September, [facility] [place] [facility] [address] [id number] [place] [address] September, [facility] [place] [facility] [address] [id number] [place] [address] September, [facility] [place] [facility] [address] [id number] [place] [address] September, [facility] [place] [facility] [address] [id number] [place] [address] September, [facility] [place] [facility] [address] [id number] [place] [address] September, [facility] [place] [facility] [address] [id number] [place] [address] September, [facility] [place] [facility] [address] [id number] [place] [address] Aug, [facility] [place] [facility] [address] [id number] [place] [address] Aug, [facility] [place] [facility] [address] [id number] [place] [address] Aug, [facility] [place] [facility] [address] [id number] [place] [address] Aug, [facility] [place] [facility] [address] [id number] [place] [address] Jul, [facility] [place] [facility] [address] [id number] [place] [address] Jul, [facility] [place] [facility] [address] [id number] [place] [address] Jun, [facility] [place] [facility] [address] [id number] [place] [address] Jun, [facility] [place] [facility] [address] [id number] [place] [address] Jun, [facility] [place] [facility] [address] [id number] [place] [address] Jun, [facility] [place] [facility] [address] [id number] [place] [address] Jun, [facility] [place] [facility] [address] [id number] [place] [address] 14 Jun, 2013 [facility] [place] [facility] [address] [id number] [place] [address] May, [facility] [place] [facility] [address] [id number] [place] [address] May, [facility] [place] [facility] [address] [id number] [place] [address] May, [facility] [place] [facility] [address] [id number] [place] [address] May, [facility] [place] [facility] [address] [id number] [place] [address] May, [facility] [place] [facility] [address] [id number] [place] [address] May, [facility] [place] [facility] [address] [id number] [place] [address] Feb, [facility] [place] [facility] [address] [id number] [place] [address] Feb, [facility] [place] [facility] [address] [id number] [place] [address] Feb, [facility] [place] [facility] [address] [facility] [id number] [place] [address] Feb, [facility] [place] [facility] [address] [id number] [place] [address] Jan, [facility] [place] [facility] [address] [id number] [place] [address] Jan, [facility] [place] [facility] [address] [id number] [place] [address] Jan, [facility] [place] [facility] [address] [id number] [place] [address] Dec, [facility] [place] [facility] [address] [id number] [place] [address] Nov, [facility] [place] [facility] [address] [id number] [place] [address] Nov, [facility] [address] [id number] [place] [address] Nov, [facility] [address] [id number] [place] [address] Nov, [facility] [address] [id number] [place] [address] Nov, [facility] [address] [id number] [place] [address] Oct, [facility] [address] [id number] [place] [address] September, [facility] [address] [id number] [place] [address] September, [facility] [address] [id number] [place] [address] Aug, [facility] [address] [id number] [place] [address] Aug, [facility] [address] [id number] [place] [address] Jul, [facility] [address] [id number] [place] [address] Jul, [facility] [address] [id number] [place] [address] Jul, [facility] [place] [facility] [address] [id number] [place] [address] Jul, [facility] [place] [facility] [address] [id number] [place] [address] Jun, [facility] [place] [facility] [address] [id number] [place] [address] Jun, [facility] [place] [facility] [address] [id number], [place] [address] 08 Jun, 2012 [facility] [address] [id number] [place] [address] May, [facility] [place] [facility] [address] [id number] [place] [address] May, [facility] [place] [facility] [address] [facility] [id number] [place] [address] May, [facility] [place] [facility] [address] [id number] [place] [address] May, [facility] [address] [id number] [place] [address] Apr, [facility] [place] [facility] [address] [id number] [place] [address] Apr, [facility] [address] [facility] [id number] [place] [address] Apr, [facility] [place] [facility] [address] [facility] [id number] [place] [address] Apr, [facility] [address] [facility] [id number] [place] [address] Apr, [facility] [place] [facility] [address] [facility] [id number] [place] [address] Apr, [facility] [place] [facility] [address] [facility] [id number], [place] [address] Mar, [facility] [place] [facility] [address] [id number], [place] [address] Mar, [facility] [place] [facility] [address] [id number] [place] [address] Mar, [facility] [place] [facility] [address] [facility] [id number] [place] [address] Mar, [facility] [place] [facility] [address] [facility] [id number] [place] [address] Mar, [facility] [place] [facility] [address] [id number] [place] [address] Mar, [facility] [place] [facility] [address] [id number] [place] [address] Feb, [facility] [place] [facility] [address] [id number] [place] [address] Feb, [facility] [place] [facility] [address] [id number] [place] [address] Feb, [facility] [place] [facility] [address] [id number] [place] [address] Feb, [facility] [place] [facility] [address] [id number] [place] [address] Jan, [facility] [place] [facility] [address] [id number] [place] [address] Jan, [facility] [place] [facility] [address] [id number] [place] [address] 24 Jan, 2012 [facility] [place] [facility] [address] [id number] [place] [address] Jan, [facility] [place] [facility] [address] [id number] [place] [address] Dec, [facility] [place] [facility] [address] [id number] [place] [address] Dec, [facility] [place] [facility] [address] [id number] [place] [address] Nov, [facility] [place] [facility] [address] [id number] [place] [address] Oct, [facility] [place] [facility] [address] [id number] [place] [address] Oct, [facility] [place] [facility] [address] [id number] [place] [address] Oct, [facility] [place] [facility] [address] [id number] [place] [address] September, [facility] [place] [facility] [address] [id number] [place] [address] September, [facility] [place] [facility] [address] [id number] [place] [address] September, [facility] [place] [facility] [address] [id number] [place] [address] September, [facility] [place] [facility] [address] [id number] [place] [address] September, [facility] [place] [facility] [address] [id number] [place] [address] September, [facility] [place] [facility] [address] [id number] [place] [address] September, [facility] [place] [facility] [address] [id number] [place] [address] Jul, [facility] [place] [facility] [address] [id number] [place] [address] Jul, [facility] [place] [facility] [address] [id number] [place] [address] Jun, [facility] [place] [facility] [address] [id number] [place] [address] Jun, [facility] [place] [facility] [address] [id number] [place] [address] Jun, [facility] [place] [facility] [address] [id number] [place] [address] May, [facility] [place] [facility] [address] [id number] [place] [address] Mar, [facility] [place] [facility] [address] [id number] [place] [address] Mar, [facility] [place] [facility] [address] [id number] [place] [address] Mar, [facility] [place] [facility] [id number], [place] [address] 31 Feb, 2011 [facility] [id number], [place] [address] 18 Feb, 2011 [facility] [id number], [place] [address] 13 Dec, 2009 [facility] [id number], [place] [address] 15 May, 2009 [facility] [id number], [place] [address] 29 Apr, 2009 [facility] [id number] [place] [address] 28 Apr, 2009 [facility] [id number] [place] [address] 14 Apr, 2009 [facility] [id number], [place] [address] Apr, [facility] [address], [place] [address] 30 Feb, 2009 [facility] [address], [place] [address] Oct, IMMUNIZATIONS No Known Immunizations SOCIAL HISTORY Never Assessed REASON FOR VISIT EMR-[facility] [place] PLAN OF CARE VITAL SIGNS MEDICATIONS Unknown [...]
--- OUTSIDE RECORDS SUMMARY | 2018-12-05 11:37 | XMS REPORT ---
Author Author Migration, Doctor Organization [facility] Address Unknown Phone Unavailable Care Team Providers Care Textile Supervisor Name Role Phone Migration, Doctor Unavailable Unavailable PROBLEMS Type Condition ICD9-CM Code [id number] Code Onset Dates Condition Status SNOMED Code Problem Mood disorder F39 Active 85476832 Problem Amput leg, unil NOS-comp S88.919A Active 87709809 Problem PVD (peripheral vascular disease) I73.9 Active 749681942 Problem Acute cystitis with hematuria N30.01 Active 87391463 Problem Chronic obstructive pulmonary disease, unspecified COPD type J44.9 Active 74811818 Problem Anticoagulant long-term use Z79.01 Active 173346083 Problem Vitamin B12 deficiency E53.8 Dec, Active 036929205 Problem Major depressive disorder, single episode, unspecified F32.9 Active 52254834 Problem Chronic fatigue, unspecified R53.82 Active 284488039 Problem Congestive heart failure, unspecified congestive heart failure chronicity, unspecified congestive heart failure type I50.9 Active 19676107 Problem Chronic fatigue R53.82 Active 91887390 Problem Peripheral vascular disease I73.9 Active 957090182 ALLERGIES No Information ENCOUNTERS Encounter Location Date Diagnosis [place] [id number] [place] [address] Aug, Anticoagulant long-term use Z79.01 [place] [address] [address] Jul, Vitamin B12 deficiency E53.8 [facility] [address] [place] [address] Jul, Anticoagulant long-term use Z79.01 [facility] [address] [place] [address] Jul, [place] [address] [place] [id number] [place] [address] Jun, [facility] [id number] [place] [address] Jun, Vitamin B12 deficiency E53.8 [facility] [id number] [place] [address] Jun, Anticoagulant long-term use Z79.01 [facility] [id number] [place] [address] 13 Jun, 2018 Encounter for Medicare annual wellness exam Z00.00 ; Major depressive disorder, single episode, unspecified F32.9 ; PVD (peripheral vascular disease) I73.9 ; Congestive heart failure, unspecified congestive heart failure chronicity, unspecified congestive heart failure type I50.9 and Chronic obstructive pulmonary disease, unspecified COPD type J44.9 [place] [address] [place] [id number] [place] [address] May, Vitamin B12 deficiency E53.8 [place] [address] [address] May, Anticoagulant long-term use Z79.01 [place] [address] [place] [id number] [place] [address] Apr, [facility] [address] [id number] [place] [address] Apr, Anticoagulant long-term use Z79.01 [place] [address] [address] [id number] [place] [address] Apr, Anticoagulant long-term use Z79.01 [place] [address] [id number] [place] [address] Mar, Chronic fatigue R53.82 [place] [address] [address] Mar, Anticoagulant long-term use Z79.01 [facility] [address] [place] [address] [id number] [place] [address] Feb, [place] [id number] [address] Feb, Vitamin B12 deficiency E53.8 [facility] [id number] [place] [address] Feb, Vitamin B12 deficiency E53.8 [facility] [address] [place] [address] Feb, Vitamin B12 deficiency E53.8 and Anticoagulant long-term use Z79.01 [facility] [id number] [place] [address] Jan, Anticoagulant long-term use Z79.01 [facility] [id number] [place] [address] Jan, Vitamin B12 deficiency E53.8 [facility] [id number] [place] [address] Jan, Anticoagulant long-term use Z79.01 [facility] [id number] [place] [address] Jan, Major depressive disorder, single episode, unspecified F32.9 [facility] [id number] [place] [address] Jan, [facility] [id number] [place] [address] Jan, Anticoagulant long-term use Z79.01 [facility] [address] [place] [address] Dec, Anticoagulant long-term use Z79.01 [facility] [address] [place] [address] Dec, Vitamin B12 deficiency E53.8 [facility] [address], [place] [address] Dec, Major depressive disorder, single episode, unspecified F32.9 [facility] [address] [address] Nov, Vitamin B 12 deficiency E53.8 [place] [address] [id number] [place] [address] Nov, Anticoagulant long-term use Z79.01 ; Mood disorder F39 ; Chronic obstructive pulmonary disease, unspecified COPD type J44.9 ; Peripheral vascular disease I73.9 and Chronic fatigue R53.82 [place] [address] [place] [id number] [place] [address] Nov, Mood disorder F39 [place] [address] [place] [id number] [place] [address] Nov, [place] [address] [place] [id number] [place] [address] Oct, Mood disorder F39 ; Chronic obstructive pulmonary disease, unspecified COPD type J44.9 ; Peripheral vascular disease I73.9 and Chronic fatigue R53.82 [place] [address] [place] [id number] [place] [address] September, Anticoagulant long-term use Z79.01 and Congestive heart failure, unspecified congestive heart failure chronicity, unspecified congestive heart failure type I50.9 [place] [address] [place] [id number] [place] [address] September, Vitamin B12 deficiency E53.8 [place] [address] [place] [id number] [place] [address] September, Anticoagulant long-term use Z79.01 [place] [address] [place] [id number] [place] [address] September, Anticoagulant long-term use Z79.01 and Congestive heart failure, unspecified congestive heart failure chronicity, unspecified congestive heart failure type I50.9 [place] [address] [place] [address] Aug, Chronic fatigue, unspecified R53.82 [place] [address] [place] [address] Aug, Anticoagulant long-term use Z79.01 [place] [address] [address] Aug, Nausea R11.0 and Weakness R53.1 [place] [address] [address] Aug, [facility] [address] [address] Aug, Hematuria R31.9 and Acute cystitis with hematuria N30.01 [place] [address] [address] Aug, [place] [address] [address] Jul, Vitamin B 12 deficiency E53.8 [place] [address] [address] Jul, Anticoagulant long-term use Z79.01 [place] [address] [address] Jun, Chronic fatigue, unspecified R53.82 [place] [address] [address] Jun, Anticoagulant long-term use Z79.01 [place] [address] [address] May, Flu-like symptoms R68.89 and Influenza A J10.1 [place] [address] [address] May, [place] [address] [address] May, Chronic fatigue, unspecified R53.82 [place] [address] [address] May, Anticoagulant long-term use Z79.01 [facility] [address], [place] [address] 15 Apr, 2017 Medicare welcome exam Z00.00 ; Anticoagulant long-term use Z79.01 ; Medicare annual wellness visit, initial Z00.00 ; Medicare annual wellness visit, subsequent Z00.00 and Chronic fatigue, unspecified R53.82 [place] [address] [place] [id number] [place] [address] Mar, Chronic fatigue, unspecified R53.82 [place] [address] [place] [id number] [place] [address] Mar, Anticoagulant long-term use Z79.01 [place] [address] [place] [id number] [place] [address] Mar, Anticoagulant long-term use Z79.01 and Hematuria R31.9 [place] [address] [place] [id number] [place] [address] Mar, Hematuria R31.9 [place] [address] [place] [id number] [place] [address] Feb, Anticoagulant long-term use Z79.01 [place] [address] [place] [id number] [place] [address] Feb, Anticoagulant long-term use Z79.01 [place] [address] [place] [address] Feb, Anticoagulant long-term use Z79.01 [place] [address] [place] [address] Feb, Chronic fatigue, unspecified R53.82 [place] [address] [place] [id number] [place] [address] Feb, Anticoagulant long-term use Z79.01 [place] [address], [place] [address] Feb, Congestive heart failure, unspecified congestive heart failure chronicity, unspecified congestive heart failure type I50.9 [facility] [address], [place] [address] Feb, Congestive heart failure, unspecified congestive heart failure chronicity, unspecified congestive heart failure type I50.9 [facility] [address], [place] [address] Feb, [facility] [address] [place] [id number] [place] [address] Jan, Anticoagulant long-term use Z79.01 [place] [address] [place] [id number] [place] [address] Jan, [place] [address] [place] [id number] [place] [address] Jan, Anticoagulant long-term use Z79.01 and Hematuria R31.9 [place] [address] [place] [id number] [place] [address] Jan, Anticoagulant long-term use Z79.01 [place] [address] [place] [address] Jan, Chronic fatigue, unspecified R53.82 [place] [address] [place] [address] Jan, Anticoagulant long-term use Z79.01 [place] [address], [place] [address] Dec, Chronic fatigue, unspecified R53.82 [place] [address], [place] [address] Dec, [place] [address] [place] [id number] [place] [address] Dec, Chronic fatigue, unspecified R53.82 and Encounter for therapeutic drug level monitoring Z51.81 [place] [address] [place] [address] Nov, Encounter for therapeutic drug level monitoring Z51.81 [facility] [address] [place] [address] Nov, Hematuria R31.9 [facility] [address] [place] [address] [id number] [place] [address] Nov, Hematuria R31.9 ; Anticoagulant long-term use Z79.01 and PVD (peripheral vascular disease) I73.9 [facility] [address] [place] [address] [id number] [place] [address] Nov, Anticoagulant long-term use Z79.01 [facility] [address] [place] [id number] [place] [address] Nov, Anticoagulant long-term use Z79.01 [facility] [address] [address] [id number] [place] [address] Nov, [facility] [address] [address] Nov, Hematuria R31.9 and Acute cystitis with hematuria N30.01 [facility] [address] [place] [id number] [place] [id number] Oct, [facility] [address] [place] [address] [id number] [place] [address] Oct, [facility] [address] [id number] [place] [address] Oct, Hematuria R31.9 [facility] [id number] [place] [address] Oct, Hematuria R31.9 [facility] [id number] [place] [address] Oct, Anticoagulant long-term use Z79.01 [facility] [id number] [place] [address] Oct, Anticoagulant long-term use Z79.01 [facility] [id number] [place] [address] Oct, [place] [address] [place] [id number] [place] [address] September, PVD (peripheral vascular disease) I73.9 ; Amput leg, unil NOS-comp S88.919A ; Acute cystitis without hematuria N30.00 ; Anticoagulant long-term use Z79.01 and Hypokalemia E87.6 [place] [address] [address] Aug, Anticoagulant long-term use Z79.01 and Bronchitis J40 [place] [address] [address] Jul, [place] [address] [address] Jul, Anticoagulant long-term use Z79.01 and Mood disorder F39 [place] [address] [address] Jul, [place] [address] [address] May, [place] [address] [address] May, Hypokalemia E87.6 [place] [address] [address] May, Mood disorder F39 [place] [address] [address] May, Anticoagulant long-term use Z79.01 [place] [address] [address] Apr, Anticoagulant long-term use Z79.01 [place] [address] [place] [id number] [place] [address] Apr, Anticoagulant long-term use Z79.01 [place] [address] [place] [address] Apr, [facility] [id number] [place] [address] Apr, Anticoagulant long-term use Z79.01 [facility] [id number] [place] [address] Apr, Anticoagulant long-term use Z79.01 [facility] [address] [address] Apr, Anticoagulant long-term use Z79.01 [facility] [id number] [place] [address] Mar, [facility] [id number] [place] [address] Mar, [facility] [id number] [place] [address] Mar, Anticoagulant long-term use Z79.01 [facility] [id number] [place] [address] Feb, [facility] [id number] [place] [address] Feb, [facility] [id number] [place] [address] Feb, Anticoagulant long-term use Z79.01 [facility] [id number] [place] [address] Feb, Anticoagulant long-term use Z79.01 [facility] [id number] [place] [address] Jan, [facility] [id number] [place] [address] Jan, Anticoagulant long-term use Z79.01 [facility] [id number] [place] [address] Jan, Anticoagulant long-term use Z79.01 [facility] [id number] [place] [address] Dec, Anticoagulant long-term use Z79.01 [facility] [id number] [place] [address] Dec, Anticoagulant long-term use Z79.01 [facility] [address] [address] Dec, Anticoagulant long-term use Z79.01 and Mood disorder F39 [facility] [address] [address] Dec, [facility] [address] [address] Nov, [facility] [address] [address] Nov, Anticoagulant long-term use Z79.01 [facility] [id number] [place] [address] Nov, Anticoagulant long-term use Z79.01 [facility] [address] [address] September, Anticoagulant long-term use Z79.01 [facility] [id number] [place] [address] Jul, Anticoagulant long-term use Z79.01 [facility] [address] [address] May, Anticoagulant long-term use Z79.01 [place] [address] [address] May, Anticoagulant long-term use Z79.01 [facility] [address] [address] May, Anticoagulant long-term use Z79.01 [facility] [address] [place] [address] May, Anticoagulant long-term use Z79.01 [facility] [address] [address] May, [facility] [address] [address] May, Congestive heart failure, unspecified congestive heart failure chronicity, unspecified congestive heart failure type I50.9 and Pulmonary congestion R09.89 [facility] [address] [address] Apr, Cough R05 ; Congestive heart failure, unspecified congestive heart failure chronicity, unspecified congestive heart failure type I50.9 and Pulmonary congestion R09.89 [facility] [address] [address] Mar, Hematuria R31.9 [place] [address] [address] Mar, [facility] [address] [address] Mar, Anticoagulant long-term use Z79.01 [place] [address] [address] Mar, [place] [address] [address] Mar, Hematuria R31.9 and Infective urethritis N34.2 [facility] [address] [address] Mar, Anticoagulant long-term use Z79.01 [place] [address] [address] Mar, Anticoagulant long-term use Z79.01 [facility] [address] [address] Mar, [facility] [address] [place] [address] Mar, Anticoagulant long-term use Z79.01 [facility] [address] [place] [address] Feb, Peristomal skin breakdown L98.499 [facility] [address], [place] [address] Feb, [facility] [id number] [place] [address] Feb, UTI (urinary tract infection) N39.0 [place] [id number] [place] [address] Jan, [place] [address] [id number] [place] [address] Dec, High risk medication use V58.69 [place] [id number] [place] [address] Nov, High risk medication use V58.69 [place] [address] [place] [address] Nov, [place] [address] [place] [address] Nov, UTI (lower urinary tract infection) 599.0 ; URI, acute 465.9 ; Insomnia 780.52 ; Anxiety 300.00 and Lower limb amputation, unspecified level V49.70 [facility] [id number] [place] [address] Oct, UTI (lower urinary tract infection) 599.0 ; URI, acute 465.9 ; Insomnia 780.52 ; Anxiety 300.00 and Lower limb amputation, unspecified level V49.70 [place] [address] [address] Aug, [place] [address] [place] [address] Aug, [facility] [place] [facility] [address] [id number] [place] [address] Jul, 2014 [facility] [place] [facility] [address] [id number] [place] [address] Jul, 2014 [facility] [place] [facility] [address] [id number] [place] [address] Jun, 2014 [facility] [place] [facility] [address] [id number] [place] [address] Jun, 2014 [facility] [place] [facility] [address] [id number] [place] [address] Mar, [facility] [place] [facility] [address] [id number] [place] [address] Mar, [facility] [place] [facility] [address] [id number] [place] [address] Mar, [facility] [place] [facility] [address] [id number] [place] [address] Mar, [facility] [place] [facility] [address] [id number] [place] [address] Mar, [facility] [place] [facility] [address] [id number] [place] [address] Feb, [facility] [place] [facility] [address] [id number] [place] [address] Feb, [facility] [place] [facility] [address] [id number] [place] [address] 29 Feb, 2014 [facility] [place] [facility] [address] [id number] [place] [address] Feb, [facility] [place] [facility] [address] [id number] [place] [address] Feb, [facility] [place] [facility] [address] [id number] [place] [address] 16 Feb, 2014 [facility] [place] [facility] [address] [id number] [place] [address] 16 Feb, 2014 [facility] [place] [facility] [address] [id number] [place] [address] Feb, [facility] [place] [facility] [address] [id number] [place] [address] Feb, [facility] [place] [facility] [address] [id number] [place] [address] Feb, [facility] [place] [facility] [address] [id number] [place] [address] Feb, [facility] [place] [facility] [address] [id number] [place] [address] Feb, [facility] [place] [facility] [address] [id number] [place] [address] Feb, [facility] [place] [facility] [address] [id number] [place] [address] Feb, [facility] [place] [facility] [address] [id number] [place] [address] Feb, [facility] [place] [facility] [address] [id number] [place] [address] Feb, [facility] [place] [facility] [address] [id number] [place] [address] 28 Jan, 2014 [facility] [place] [facility] [address] [id number] [address] 26 Jan, 2013 [facility] [place] [facility] [address] [id number], [place] [address] 26 Jan, 2013 [facility] [place] [facility] [address] [id number] [place] [address] 04 Jan, 2014 [facility] [place] [facility] [address] [id number] [place] [address] 04 Jan, 2014 [facility] [place] [facility] [address] [id number] [place] [address] Nov, [facility] [place] [facility] [address] [id number] [place] [address] Nov, [facility] [place] [facility] [address] [id number] [place] [address] Nov, [facility] [place] [facility] [address] [id number] [place] [address] Nov, [facility] [place] [facility] [address] [id number] [place] [address] Nov, [facility] [place] [facility] [address] [id number] [place] [address] Nov, [facility] [place] [facility] [address] [id number] [place] [address] Oct, [facility] [place] [facility] [address] [id number] [place] [address] Oct, [facility] [place] [facility] [address] [id number] [place] [address] Oct, [facility] [place] [facility] [address] [id number] [place] [address] Oct, [facility] [place] [facility] [address] [id number] [place] [address] Oct, [facility] [place] [facility] [address] [id number] [place] [address] Oct, [facility] [place] [facility] [address] [id number] [place] [address] Oct, [facility] [place] [facility] [address] [id number] [place] [address] September, [facility] [place] [facility] [address] [id number] [place] [address] September, [facility] [place] [facility] [address] [id number] [place] [address] September, [facility] [place] [facility] [address] [id number] [place] [address] September, [facility] [place] [facility] [address] [id number] [place] [address] September, [facility] [place] [facility] [address] [id number] [place] [address] September, [facility] [place] [facility] [address] [id number] [place] [address] September, [facility] [place] [facility] [address] [id number] [place] [address] September, [facility] [place] [facility] [address] [id number] [place] [address] Aug, [facility] [place] [facility] [address] [id number] [place] [address] Aug, [facility] [place] [facility] [address] [id number] [place] [address] Aug, [facility] [place] [facility] [address] [id number] [place] [address] Aug, [facility] [place] [facility] [address] [id number] [place] [address] Jul, [facility] [place] [facility] [address] [id number] [place] [address] Jul, [facility] [place] [facility] [address] [id number] [place] [address] Jun, [facility] [place] [facility] [address] [id number] [place] [address] Jun, [facility] [place] [facility] [address] [id number] [place] [address] Jun, [facility] [place] [facility] [address] [id number] [place] [address] Jun, [facility] [place] [facility] [address] [id number] [place] [address] Jun, [facility] [place] [facility] [address] [id number] [place] [address] 14 Jun, 2013 [facility] [place] [facility] [address] [id number] [place] [address] May, [facility] [place] [facility] [address] [id number] [place] [address] May, [facility] [place] [facility] [address] [id number] [place] [address] May, [facility] [place] [facility] [address] [id number] [place] [address] May, [facility] [place] [facility] [address] [id number] [place] [address] May, [facility] [place] [facility] [address] [id number] [place] [address] May, [facility] [place] [facility] [address] [id number] [place] [address] Feb, [facility] [place] [facility] [address] [id number] [place] [address] Feb, [facility] [place] [facility] [address] [id number] [place] [address] Feb, [facility] [place] [facility] [address] [facility] [id number] [place] [address] Feb, [facility] [place] [facility] [address] [id number] [place] [address] Jan, [facility] [place] [facility] [address] [id number] [place] [address] Jan, [facility] [place] [facility] [address] [id number] [place] [address] Jan, [facility] [place] [facility] [address] [id number] [place] [address] Dec, [facility] [place] [facility] [address] [id number] [place] [address] Nov, [facility] [place] [facility] [address] [id number] [place] [address] Nov, [facility] [address] [id number] [place] [address] Nov, [facility] [address] [id number] [place] [address] Nov, [facility] [address] [id number] [place] [address] Nov, [facility] [address] [id number] [place] [address] Oct, [facility] [address] [id number] [place] [address] September, [facility] [address] [id number] [place] [address] September, [facility] [address] [id number] [place] [address] Aug, [facility] [address] [id number] [place] [address] Aug, [facility] [address] [id number] [place] [address] Jul, [facility] [address] [id number] [place] [address] Jul, [facility] [address] [id number] [place] [address] Jul, [facility] [place] [facility] [address] [id number] [place] [address] Jul, [facility] [place] [facility] [address] [id number] [place] [address] Jun, [facility] [place] [facility] [address] [id number] [place] [address] Jun, [facility] [place] [facility] [address] [id number], [place] [address] 08 Jun, 2012 [facility] [address] [id number] [place] [address] May, [facility] [place] [facility] [address] [id number] [place] [address] May, [facility] [place] [facility] [address] [facility] [id number] [place] [address] May, [facility] [place] [facility] [address] [id number] [place] [address] May, [facility] [address] [id number] [place] [address] Apr, [facility] [place] [facility] [address] [id number] [place] [address] Apr, [facility] [address] [facility] [id number] [place] [address] Apr, [facility] [place] [facility] [address] [facility] [id number] [place] [address] Apr, [facility] [address] [facility] [id number] [place] [address] Apr, [facility] [place] [facility] [address] [facility] [id number] [place] [address] Apr, [facility] [place] [facility] [address] [facility] [id number], [place] [address] Mar, [facility] [place] [facility] [address] [id number], [place] [address] Mar, [facility] [place] [facility] [address] [id number] [place] [address] Mar, [facility] [place] [facility] [address] [facility] [id number] [place] [address] Mar, [facility] [place] [facility] [address] [facility] [id number] [place] [address] Mar, [facility] [place] [facility] [address] [id number] [place] [address] Mar, [facility] [place] [facility] [address] [id number] [place] [address] Feb, [facility] [place] [facility] [address] [id number] [place] [address] Feb, [facility] [place] [facility] [address] [id number] [place] [address] Feb, [facility] [place] [facility] [address] [id number] [place] [address] Feb, [facility] [place] [facility] [address] [id number] [place] [address] Jan, [facility] [place] [facility] [address] [id number] [place] [address] Jan, [facility] [place] [facility] [address] [id number] [place] [address] 24 Jan, 2012 [facility] [place] [facility] [address] [id number] [place] [address] Jan, [facility] [place] [facility] [address] [id number] [place] [address] Dec, [facility] [place] [facility] [address] [id number] [place] [address] Dec, [facility] [place] [facility] [address] [id number] [place] [address] Nov, [facility] [place] [facility] [address] [id number] [place] [address] Oct, [facility] [place] [facility] [address] [id number] [place] [address] Oct, [facility] [place] [facility] [address] [id number] [place] [address] Oct, [facility] [place] [facility] [address] [id number] [place] [address] September, [facility] [place] [facility] [address] [id number] [place] [address] September, [facility] [place] [facility] [address] [id number] [place] [address] September, [facility] [place] [facility] [address] [id number] [place] [address] September, [facility] [place] [facility] [address] [id number] [place] [address] September, [facility] [place] [facility] [address] [id number] [place] [address] September, [facility] [place] [facility] [address] [id number] [place] [address] September, [facility] [place] [facility] [address] [id number] [place] [address] Jul, [facility] [place] [facility] [address] [id number] [place] [address] Jul, [facility] [place] [facility] [address] [id number] [place] [address] Jun, [facility] [place] [facility] [address] [id number] [place] [address] Jun, [facility] [place] [facility] [address] [id number] [place] [address] Jun, [facility] [place] [facility] [address] [id number] [place] [address] May, [facility] [place] [facility] [address] [id number] [place] [address] Mar, [facility] [place] [facility] [address] [id number] [place] [address] Mar, [facility] [place] [facility] [address] [id number] [place] [address] Mar, [facility] [place] [facility] [id number], [place] [address] 31 Feb, 2011 [facility] [id number] [address] Feb, [facility] [id number], [place] [address] Dec, [facility] [id number], [place] [address] May, [facility] [id number], [place] [address] Apr, [facility] [id number], [place] [address] Apr, [facility] [id number], [place] [address] Apr, [facility] [id number], [place] [address] Apr, [facility] [id number], [place] [address] Feb, [facility] [id number], [place] [address] Oct, IMMUNIZATIONS No Known Immunizations SOCIAL HISTORY Never Assessed REASON FOR VISIT [place] [place] VITAL SIGNS MEDICATIONS Medication Instructions Dosage Frequency Start Date End Date Duration Status Bactrim DS 800-160 mg 1 tablet by Oral route 2 times per day for 7 day(s) Mar, Active Cipro 500 mg take 1 tablet (500 mg) by oral route every 12 hours for 10 days Apr, Active Vitamin D3 1,000 unit 2 capsule by Oral route 1 time per day Feb, Active PredniSONE 20 mg 2 tablet by Oral route 1 time per day for 5 day(s) Feb, Active Guaifenesin 600 mg 600 mg by Oral route every 12 hours Jan, Active Levaquin 500 mg take 1 tablet (500 mg) by oral route once daily for 7 days Apr, Active Lisinopril 10 mg take 1 tablet by Oral route 1 time per day Take in am September, Active Levaquin 750 mg 1 tablet by Oral route every 24 hours for 7 days Jan, Active Coumadin 3 mg 1 tablet by Oral route 1 time per day Feb, Active cetirizine 10 mg 1 tablet by Oral route 1 daily Jan, Active RESULTS No Results PROCEDURES No Known [...]
--- OUTSIDE RECORDS SUMMARY | 2018-12-05 11:38 | XMS REPORT ---
Author Author ERIK SAMAYOA Organization [facility] Address [address] [place] [address] Care Team Providers Care Deck Molder Name Role Phone ERIK SAMAYOA Unavailable PROBLEMS Type Condition ICD9-CM Code [id number] Code Onset Dates Condition Status SNOMED Code Problem Mood disorder F39 Active 68752060 Problem Amput leg, unil NOS-comp S88.919A Active 97438949 Problem PVD (peripheral vascular disease) I73.9 Active 710690200 Problem Acute cystitis with hematuria N30.01 Active 56183383 Problem Chronic obstructive pulmonary disease, unspecified COPD type J44.9 Active 23413815 Problem Anticoagulant long-term use Z79.01 Active 103059575 Problem Vitamin B12 deficiency E53.8 Dec, Active 356859984 Problem Major depressive disorder, single episode, unspecified F32.9 Active 64545840 Problem Chronic fatigue, unspecified R53.82 Active 699222288 Problem Congestive heart failure, unspecified congestive heart failure chronicity, unspecified congestive heart failure type I50.9 Active 02621094 Problem Chronic fatigue R53.82 Active 63810752 Problem Peripheral vascular disease I73.9 Active 152863003 ALLERGIES No Information ENCOUNTERS Encounter Location Date Diagnosis [facility] [id number] [address] Jun, [facility] [address] [address] Jun, Vitamin B12 deficiency E53.8 [facility] [id number], [place] [address] Jun, Anticoagulant long-term use Z79.01 [facility] [id number], [place] [address] 13 Jun, 2018 Encounter for Medicare annual wellness exam Z00.00 ; Major depressive disorder, single episode, unspecified F32.9 ; PVD (peripheral vascular disease) I73.9 ; Congestive heart failure, unspecified congestive heart failure chronicity, unspecified congestive heart failure type I50.9 and Chronic obstructive pulmonary disease, unspecified COPD type J44.9 [facility] [id number] [place] [address] May, Vitamin B12 deficiency E53.8 [facility] [facility] [id number] [place] [address] May, Anticoagulant long-term use Z79.01 [place] [id number] [place] [address] Apr, [place] [id number] [place] [address] Apr, Anticoagulant long-term use Z79.01 [place] [id number] [place] [address] Apr, Anticoagulant long-term use Z79.01 [place] [id number] [place] [address] Mar, Chronic fatigue R53.82 [place] [id number] [place] [address] Mar, Anticoagulant long-term use Z79.01 [place] [id number] [place] [address] Feb, [place] [id number] [place] [address] Feb, Vitamin B12 deficiency E53.8 [place] [id number] [place] [address] Feb, Vitamin B12 deficiency E53.8 [place] [id number] [place] [address] Feb, Vitamin B12 deficiency E53.8 and Anticoagulant long-term use Z79.01 [place] [id number] [place] [address] Jan, Anticoagulant long-term use Z79.01 [place] [address] [address] Jan, Vitamin B12 deficiency E53.8 [place] [address] [address] Jan, Anticoagulant long-term use Z79.01 [place] [address] [address] Jan, Major depressive disorder, single episode, unspecified F32.9 [place] [address] [address] Jan, [place] [address] [address] Jan, Anticoagulant long-term use Z79.01 [place] [address] [address] Dec, Anticoagulant long-term use Z79.01 [place] [address] [address] Dec, Vitamin B12 deficiency E53.8 [place] [address] [address] Dec, Major depressive disorder, single episode, unspecified F32.9 [place] [id number] [place] [address] Nov, Vitamin B 12 deficiency E53.8 [place] [id number] [place] [address] Nov, Anticoagulant long-term use Z79.01 ; Mood disorder F39 ; Chronic obstructive pulmonary disease, unspecified COPD type J44.9 ; Peripheral vascular disease I73.9 and Chronic fatigue R53.82 [place] [address] [address] Nov, Mood disorder F39 [facility] [id number] [place] [address] Nov, [facility] [address] [address] Oct, Mood disorder F39 ; Chronic obstructive pulmonary disease, unspecified COPD type J44.9 ; Peripheral vascular disease I73.9 and Chronic fatigue R53.82 [place] [address] [address] September, Anticoagulant long-term use Z79.01 and Congestive heart failure, unspecified congestive heart failure chronicity, unspecified congestive heart failure type I50.9 [place] [address] [address] September, Vitamin B12 deficiency E53.8 [place] [address] [address] September, Anticoagulant long-term use Z79.01 [place] [address] [address] September, Anticoagulant long-term use Z79.01 and Congestive heart failure, unspecified congestive heart failure chronicity, unspecified congestive heart failure type I50.9 [place] [id number] [place] [address] Aug, Chronic fatigue, unspecified R53.82 [place] [id number] [place] [address] Aug, Anticoagulant long-term use Z79.01 [place] [id number] [place] [address] Aug, Nausea R11.0 and Weakness R53.1 [place] [id number] [place] [address] Aug, [facility] [id number] [place] [address] Aug, Hematuria R31.9 and Acute cystitis with hematuria N30.01 [place] [id number] [place] [address] Aug, [place] [id number] [place] [address] Jul, Vitamin B 12 deficiency E53.8 [place] [address] [address] Jul, Anticoagulant long-term use Z79.01 [place] [id number] [place] [address] Jun, Chronic fatigue, unspecified R53.82 [place] [id number] [place] [address] Jun, Anticoagulant long-term use Z79.01 [place] [id number] [place] [address] May, Flu-like symptoms R68.89 and Influenza A J10.1 [place] [id number] [place] [address] May, [place] [id number] [place] [address] May, Chronic fatigue, unspecified R53.82 [place] [id number] [place] [address] May, Anticoagulant long-term use Z79.01 [place] [id number] [place] [address] 15 Apr, 2017 Medicare welcome exam Z00.00 ; Anticoagulant long-term use Z79.01 ; Medicare annual wellness visit, initial Z00.00 ; Medicare annual wellness visit, subsequent Z00.00 and Chronic fatigue, unspecified R53.82 [place] [id number] [place] [address] Mar, Chronic fatigue, unspecified R53.82 [place] [address], [place] [address] Mar, Anticoagulant long-term use Z79.01 [facility] [id number] [place] [address] Mar, Anticoagulant long-term use Z79.01 and Hematuria R31.9 [place] [id number] [place] [address] Mar, Hematuria R31.9 [facility] [id number] [place] [address] Feb, Anticoagulant long-term use Z79.01 [place] [id number] [place] [address] Feb, Anticoagulant long-term use Z79.01 [place] [id number] [place] [address] Feb, Anticoagulant long-term use Z79.01 [place] [id number] [place] [address] Feb, Chronic fatigue, unspecified R53.82 [place] [id number] [place] [address] Feb, Anticoagulant long-term use Z79.01 [place] [id number] [place] [address] Feb, Congestive heart failure, unspecified congestive heart failure chronicity, unspecified congestive heart failure type I50.9 [place] [id number] [place] [address] Feb, Congestive heart failure, unspecified congestive heart failure chronicity, unspecified congestive heart failure type I50.9 [facility] [id number] [place] [address] Feb, [facility] [id number] [place] [address] Jan, Anticoagulant long-term use Z79.01 [place] [id number] [place] [address] Jan, [place] [address] [address] Jan, Anticoagulant long-term use Z79.01 and Hematuria R31.9 [place] [address] [address] Jan, Anticoagulant long-term use Z79.01 [place] [address] [address] Jan, Chronic fatigue, unspecified R53.82 [place] [address] [address] Jan, Anticoagulant long-term use Z79.01 [place] [address] [address] Dec, Chronic fatigue, unspecified R53.82 [place] [address] [address] Dec, [place] [address] [address] Dec, Chronic fatigue, unspecified R53.82 and Encounter for therapeutic drug level monitoring Z51.81 [place] [id number] [place] [address] Nov, Encounter for therapeutic drug level monitoring Z51.81 [place] [id number] [place] [address] Nov, Hematuria R31.9 [place] [address] [address] Nov, Hematuria R31.9 ; Anticoagulant long-term use Z79.01 and PVD (peripheral vascular disease) I73.9 [place] [address] [address] Nov, Anticoagulant long-term use Z79.01 [facility] [id number] [place] [address] Nov, Anticoagulant long-term use Z79.01 [facility] [id number] [place] [address] Nov, [facility] [id number] [place] [address] Nov, Hematuria R31.9 and Acute cystitis with hematuria N30.01 [facility] [address] [id number] Oct, [place] [address] [address] Oct, [place] [address] [address] Oct, Hematuria R31.9 [place] [address] [address] Oct, Hematuria R31.9 [facility] [id number] [place] [address] Oct, Anticoagulant long-term use Z79.01 [facility] [id number] [place] [address] Oct, Anticoagulant long-term use Z79.01 [facility] [id number] [place] [address] Oct, [facility] [id number] [place] [address] September, PVD (peripheral vascular disease) I73.9 ; Amput leg, unil NOS-comp S88.919A ; Acute cystitis without hematuria N30.00 ; Anticoagulant long-term use Z79.01 and Hypokalemia E87.6 [place] [id number] [place] [address] Aug, Anticoagulant long-term use Z79.01 and Bronchitis J40 [facility] [address] [address] Jul, [place] [address] [address] Jul, Anticoagulant long-term use Z79.01 and Mood disorder F39 [place] [address] [address] Jul, [place] [address] [address] May, [place] [address] [address] May, Hypokalemia E87.6 [place] [address] [address] May, Mood disorder F39 [place] [address] [address] May, Anticoagulant long-term use Z79.01 [place] [address] [address] Apr, Anticoagulant long-term use Z79.01 [place] [address] [address] Apr, Anticoagulant long-term use Z79.01 [place] [address] [address] Apr, [place] [address] [address] Apr, Anticoagulant long-term use Z79.01 [place] [address] [address] Apr, Anticoagulant long-term use Z79.01 [place] [address] [address] Apr, Anticoagulant long-term use Z79.01 [facility] [id number] [place] [address] Mar, [facility] [id number] [place] [address] Mar, [facility] [id number] [place] [address] Mar, Anticoagulant long-term use Z79.01 [facility] [id number] [place] [address] Feb, [facility] [address] [address] Feb, [facility] [id number] [place] [address] Feb, Anticoagulant long-term use Z79.01 [facility] [id number] [place] [address] Feb, Anticoagulant long-term use Z79.01 [facility] [id number] [place] [address] Jan, [facility] [id number] [place] [address] Jan, Anticoagulant long-term use Z79.01 [facility] [id number] [place] [address] Jan, Anticoagulant long-term use Z79.01 [facility] [id number] [place] [address] Dec, Anticoagulant long-term use Z79.01 [facility] [id number] [place] [address] Dec, Anticoagulant long-term use Z79.01 [facility] [id number] [place] [address] Dec, Anticoagulant long-term use Z79.01 and Mood disorder F39 [facility] [address], [place] [address] Dec, [facility] [id number] [place] [address] Nov, [facility] [id number] [place] [address] Nov, Anticoagulant long-term use Z79.01 [facility] [id number] [place] [address] Nov, Anticoagulant long-term use Z79.01 [facility] [id number] [place] [address] September, Anticoagulant long-term use Z79.01 [facility] [id number] [place] [address] Jul, Anticoagulant long-term use Z79.01 [facility] [id number] [place] [address] May, Anticoagulant long-term use Z79.01 [facility] [id number] [place] [address] May, Anticoagulant long-term use Z79.01 [facility] [id number] [place] [address] May, Anticoagulant long-term use Z79.01 [facility] [id number] [place] [address] May, Anticoagulant long-term use Z79.01 [facility] [id number] [place] [address] May, [facility] [id number] [place] [address] May, Congestive heart failure, unspecified congestive heart failure chronicity, unspecified congestive heart failure type I50.9 and Pulmonary congestion R09.89 [facility] [id number] [place] [address] Apr, Cough R05 ; Congestive heart failure, unspecified congestive heart failure chronicity, unspecified congestive heart failure type I50.9 and Pulmonary congestion R09.89 [place] [id number] [place] [address] Mar, Hematuria R31.9 [place] [address] [address] Mar, [place] [id number] [place] [address] Mar, Anticoagulant long-term use Z79.01 [place] [address] [address] Mar, [place] [id number] [place] [address] Mar, Hematuria R31.9 and Infective urethritis N34.2 [place] [id number] [place] [address] Mar, Anticoagulant long-term use Z79.01 [place] [id number] [place] [address] Mar, Anticoagulant long-term use Z79.01 [place] [id number] [place] [address] Mar, [place] [id number] [place] [address] Mar, Anticoagulant long-term use Z79.01 [place] [id number] [place] [address] Feb, Peristomal skin breakdown L98.499 [place] [id number] [place] [address] Feb, [place] [id number] [place] [address] Feb, UTI (urinary tract infection) N39.0 [facility] [id number], [place] [address] Jan, [facility] [id number], [place] [address] Dec, High risk medication use V58.69 [facility] [address], [place] [address] Nov, High risk medication use V58.69 [facility] [id number], [place] [address] Nov, [facility] [id number] [place] [address] Nov, UTI (lower urinary tract infection) 599.0 ; URI, acute 465.9 ; Insomnia 780.52 ; Anxiety 300.00 and Lower limb amputation, unspecified level V49.70 [facility] [id number], [place] [address] Oct, UTI (lower urinary tract infection) 599.0 ; URI, acute 465.9 ; Insomnia 780.52 ; Anxiety 300.00 and Lower limb amputation, unspecified level V49.70 [facility] [id number], [place] [address] Aug, [facility] [id number], [place] [address] Aug, [facility] [id number], [place] [address] Jul, [facility] [id number], [place] [address] Jul, [facility] [id number], [place] [address] Jun, [facility] [id number], [place] [address] Jun, [facility] [place] [facility] [address] [id number] [place] [address] Mar, [facility] [place] [facility] [address] [id number] [place] [address] Mar, [facility] [place] [facility] [address] [id number] [place] [address] Mar, [facility] [place] [facility] [address] [id number] [place] [address] Mar, [facility] [place] [facility] [address] [id number] [place] [address] Mar, [facility] [place] [facility] [address] [id number] [place] [address] Feb, [facility] [place] [facility] [address] [id number] [place] [address] Feb, [facility] [place] [facility] [address] [id number] [place] [address] Feb, [facility] [place] [facility] [address] [id number] [place] [address] Feb, [facility] [place] [facility] [address] [id number] [place] [address] Feb, [facility] [place] [facility] [address] [facility] [id number] [place] [address] Feb, [facility] [place] [facility] [address] [id number] [place] [address] 16 Feb, 2014 [facility] [place] [facility] [address] [id number] [place] [address] Feb, [facility] [place] [facility] [address] [id number] [place] [address] Feb, [facility] [place] [facility] [address] [id number] [place] [address] Feb, [facility] [place] [facility] [address] [id number] [place] [address] Feb, [facility] [place] [facility] [address] [id number] [place] [address] Feb, [facility] [place] [facility] [address] [id number] [place] [address] Feb, [facility] [place] [facility] [address] [id number] [place] [address] Feb, [facility] [place] [facility] [address] [id number] [place] [address] Feb, [facility] [place] [facility] [address] [id number] [place] [address] Feb, [facility] [place] [facility] [address] [id number] [place] [address] Jan, [facility] [place] [facility] [address] [id number] [place] [address] Jan, [facility] [place] [facility] [address] [id number] [place] [address] Jan, [facility] [place] [facility] [address] [id number] [place] [address] Jan, [facility] [place] [facility] [address] [id number] [place] [address] Jan, [facility] [place] [facility] [address] [id number] [place] [address] Nov, [facility] [place] [facility] [address] [id number] [address] Nov, [facility] [place] [facility] [address] [id number] [place] [address] Nov, [facility] [place] [facility] [address] [id number] [place] [address] Nov, [facility] [place] [facility] [address] [id number] [place] [address] Nov, [facility] [place] [facility] [address] [id number] [place] [address] Nov, [facility] [place] [facility] [address] [id number] [place] [address] Oct, [facility] [place] [facility] [address] [id number] [place] [address] Oct, [facility] [place] [facility] [address] [id number] [place] [address] Oct, [facility] [place] [facility] [address] [id number] [place] [address] Oct, [facility] [place] [facility] [address] [id number] [place] [address] Oct, [facility] [place] [facility] [address] [id number] [place] [address] Oct, [facility] [place] [facility] [address] [id number] [place] [address] Oct, [facility] [place] [facility] [address] [id number] [place] [address] September, [facility] [place] [facility] [address] [id number] [place] [address] September, [facility] [place] [facility] [address] [id number] [place] [address] September, [facility] [place] [facility] [address] [id number] [place] [address] September, [facility] [place] [facility] [address] [id number] [place] [address] September, [facility] [place] [facility] [address] [id number] [place] [address] September, [facility] [place] [facility] [address] [id number] [place] [address] September, [facility] [place] [facility] [address] [id number] [place] [address] September, [facility] [place] [facility] [address] [id number] [place] [address] Aug, [facility] [place] [facility] [address] [id number] [place] [address] Aug, [facility] [place] [facility] [address] [id number] [place] [address] Aug, [facility] [place] [facility] [address] [id number] [place] [address] Aug, [facility] [place] [facility] [address] [id number] [place] [address] Jul, [facility] [place] [facility] [address] [id number] [place] [address] Jul, [facility] [place] [facility] [address] [id number] [place] [address] Jun, [facility] [place] [facility] [address] [id number] [place] [address] Jun, [facility] [place] [facility] [address] [id number] [place] [address] Jun, [facility] [place] [facility] [address] [id number] [place] [address] Jun, [facility] [place] [facility] [address] [id number] [place] [address] Jun, [facility] [place] [facility] [address] [id number] [place] [address] Jun, [facility] [place] [facility] [address] [id number] [place] [address] May, [facility] [place] [facility] [address] [id number] [place] [address] May, [facility] [place] [facility] [address] [id number] [place] [address] May, [facility] [place] [facility] [address] [id number] [place] [address] May, [facility] [address] [id number] [place] [address] May, [facility] [place] [facility] [address] [id number] [place] [address] May, [facility] [address] [id number] [place] [address] Feb, [facility] [place] [facility] [address] [id number] [place] [address] Feb, [facility] [place] [facility] [address] [id number] [place] [address] Feb, [facility] [place] [facility] [address] [id number] [place] [address] Feb, [facility] [address] [id number] [place] [address] Jan, [facility] [place] [facility] [address] [id number] [place] [address] Jan, [facility] [place] [facility] [address] [id number] [place] [address] Jan, [facility] [place] [facility] [address] [id number] [place] [address] Dec, [facility] [place] [facility] [address] [id number] [place] [address] Nov, [facility] [place] [facility] [address] [id number] [place] [address] Nov, [facility] [place] [facility] [address] [id number] [place] [address] Nov, [facility] [place] [facility] [address] [id number] [place] [address] Nov, [facility] [place] [facility] [address] [id number] [place] [address] Nov, [facility] [place] [facility] [address] [id number] [place] [address] Oct, [facility] [address] [id number] [place] [address] September, [facility] [place] [facility] [address] [id number] [place] [address] September, [facility] [address] [id number] [place] [address] Aug, [facility] [address] [id number] [place] [address] Aug, [facility] [address] [id number] [place] [address] Jul, [facility] [address] [id number] [place] [address] Jul, [facility] [address] [id number] [place] [address] Jul, [facility] [address] [id number] [place] [address] Jul, [facility] [address] [id number] [place] [address] Jun, [facility] [address] [id number] [place] [address] Jun, [facility] [address] [id number] [place] [address] Jun, [facility] [place] [facility] [address] [id number] [place] [address] May, [facility] [place] [facility] [address] [id number] [place] [address] May, [facility] [place] [facility] [address] [id number] [place] [address] May, [facility] [place] [facility] [address] [id number] [place] [address] May, [facility] [place] [facility] [address] [id number] [place] [address] Apr, [facility] [place] [facility] [address] [id number] [place] [address] Apr, [facility] [place] [facility] [address] [id number] [place] [address] Apr, [facility] [place] [facility] [address] [id number] [place] [address] Apr, [facility] [place] [facility] [address] [id number] [place] [address] Apr, [facility] [place] [facility] [address] [id number] [place] [address] Apr, [facility] [place] [facility] [address] [id number] [place] [address] Mar, [facility] [place] [facility] [address] [id number] [place] [address] Mar, [facility] [place] [facility] [address] [id number] [place] [address] Mar, [facility] [place] [facility] [address] [id number] [place] [address] Mar, [facility] [place] [facility] [address] [id number], [place] [address] Mar, [facility] [place] [facility] [address] [id number], [place] [address] Mar, [facility] [place] [facility] [address] [id number] [place] [address] Feb, [facility] [place] [facility] [address] [id number] [place] [address] Feb, [facility] [place] [facility] [address] [id number] [place] [address] Feb, [facility] [place] [facility] [address] [id number] [place] [address] Feb, [facility] [address] [id number] [place] [address] Jan, [facility] [place] [facility] [address] [id number] [place] [address] Jan, [facility] [address] [id number] [place] [address] Jan, [facility] [address] [id number] [place] [address] Jan, [facility] [address] [id number] [place] [address] Dec, [facility] [address] [id number] [place] [address] Dec, [facility] [address] [id number] [place] [address] Nov, [facility] [address] [id number] [place] [address] Oct, [facility] [place] [facility] [address] [id number] [place] [address] Oct, [facility] [address] [id number] [place] [address] Oct, [facility] [place] [facility] [address] [id number] [place] [address] September, [facility] [address] [id number] [place] [address] September, [facility] [place] [facility] [address] [id number] [place] [address] September, [facility] [place] [facility] [address] [id number] [place] [address] September, [facility] [address] [id number] [place] [address] September, [facility] [address] [id number] [place] [address] September, [facility] [place] [facility] [address] [id number] [place] [address] September, [facility] [place] [facility] [address] [id number] [place] [address] Jul, [facility] [place] [facility] [address] [id number] [place] [address] Jul, [facility] [place] [facility] [address] [id number] [place] [address] Jun, [facility] [place] [facility] [address] [id number] [place] [address] Jun, [facility] [place] [facility] [address] [id number] [place] [address] Jun, [facility] [place] [facility] [address] [id number] [place] [address] May, [facility] [place] [facility] [address] [id number] [place] [address] Mar, [facility] [place] [facility] [address] [id number] [place] [address] Mar, [facility] [place] [facility] [address] [id number] [place] [address] Mar, [facility] [place] [facility] [address] [id number], [place] [address] Feb, [facility] [place] [facility] [address] [id number] [place] [address] 18 Feb, 2011 [facility] [place] [facility] [address] [id number] [place] [address] 13 Dec, 2009 [facility] [place] [facility] [address] [id number] [place] [address] 15 May, 2009 [facility] [place] [facility] [address] [facility] [id number], [place] [address] 29 Apr, 2009 [facility] [address] [id number], [place] [address] Apr, [facility] [address] [id number], [place] [address] Apr, [facility] [address] [id number], [place] [address] Apr, [facility] [address] [id number], [place] [address] 30 Feb, 2009 [facility] [id number], [place] [address] Oct, IMMUNIZATIONS No Known Immunizations SOCIAL HISTORY Never Assessed REASON FOR VISIT med changes PLAN OF CARE VITAL SIGNS MEDICATIONS Medication Instructions Dosage Frequency Start Date End Date Duration Status Warfarin Sodium 1 MG Orally Once a day 1 tablet 24h Active RESULTS No Results PROCEDURES No Known [...] 5th toe removal 06/25/2009 Hospitalization History pneumonia, [facility] 11/03/16
--- OUTSIDE RECORDS SUMMARY | 2018-12-05 11:38 | XMS REPORT ---
Author Author Migration, Doctor Organization [facility] Address Unknown Phone Unavailable Care Team Providers Care Seating Upholsterer Name Role Phone Migration, Doctor Unavailable Unavailable PROBLEMS Type Condition ICD9-CM Code [id number] Code Onset Dates Condition Status SNOMED Code Problem Mood disorder F39 Active 66885966 Problem Amput leg, unil NOS-comp S88.919A Active 66970945 Problem PVD (peripheral vascular disease) I73.9 Active 969360269 Problem Acute cystitis with hematuria N30.01 Active 94600508 Problem Chronic obstructive pulmonary disease, unspecified COPD type J44.9 Active 85964512 Problem Anticoagulant long-term use Z79.01 Active 731209489 Problem Vitamin B12 deficiency E53.8 Dec, Active 185062873 Problem Major depressive disorder, single episode, unspecified F32.9 Active 29289174 Problem Chronic fatigue, unspecified R53.82 Active 854903691 Problem Congestive heart failure, unspecified congestive heart failure chronicity, unspecified congestive heart failure type I50.9 Active 85771383 Problem Chronic fatigue R53.82 Active 93820545 Problem Peripheral vascular disease I73.9 Active [id number] ALLERGIES No Information ENCOUNTERS Encounter Location Date Diagnosis [facility] [address] [address] Jun, [facility] [id number] [place] [address] Jun, Vitamin B12 deficiency E53.8 [facility] [address] [address] Jun, Anticoagulant long-term use Z79.01 [facility] [address] [place] [address] Jun, Encounter for Medicare annual wellness exam Z00.00 ; Major depressive disorder, single episode, unspecified F32.9 ; PVD (peripheral vascular disease) I73.9 ; Congestive heart failure, unspecified congestive heart failure chronicity, unspecified congestive heart failure type I50.9 and Chronic obstructive pulmonary disease, unspecified COPD type J44.9 [facility] [id number] [place] [address] May, Vitamin B12 deficiency E53.8 [facility] [id number] [place] [address] May, Anticoagulant long-term use Z79.01 [facility] [id number] [place] [address] Apr, [place] [address] [address] Apr, Anticoagulant long-term use Z79.01 [facility] [id number] [place] [address] Apr, Anticoagulant long-term use Z79.01 [facility] [id number] [place] [address] Mar, Chronic fatigue R53.82 [place] [address] [address] Mar, Anticoagulant long-term use Z79.01 [facility] [id number] [place] [address] Feb, [facility] [id number] [place] [address] Feb, Vitamin B12 deficiency E53.8 [place] [id number] [place] [address] Feb, Vitamin B12 deficiency E53.8 [place] [id number] [place] [address] Feb, Vitamin B12 deficiency E53.8 and Anticoagulant long-term use Z79.01 [place] [id number] [place] [address] Jan, Anticoagulant long-term use Z79.01 [facility] [id number] [place] [address] Jan, Vitamin B12 deficiency E53.8 [facility] [id number] [place] [address] Jan, Anticoagulant long-term use Z79.01 [facility] [id number] [place] [address] Jan, Major depressive disorder, single episode, unspecified F32.9 [facility] [id number] [place] [address] Jan, [place] [id number] [place] [address] Jan, Anticoagulant long-term use Z79.01 [place] [id number] [place] [address] Dec, Anticoagulant long-term use Z79.01 [facility] [id number] [place] [address] Dec, Vitamin B12 deficiency E53.8 [place] [id number] [place] [address] Dec, Major depressive disorder, single episode, unspecified F32.9 [place] [id number] [place] [address] Nov, Vitamin B 12 deficiency E53.8 [facility] [id number] [place] [address] Nov, Anticoagulant long-term use Z79.01 ; Mood disorder F39 ; Chronic obstructive pulmonary disease, unspecified COPD type J44.9 ; Peripheral vascular disease I73.9 and Chronic fatigue R53.82 [facility] [id number] [place] [address] Nov, Mood disorder F39 [facility] [address] [place] [address] Nov, [facility] [id number] [place] [address] Oct, Mood disorder F39 ; Chronic obstructive pulmonary disease, unspecified COPD type J44.9 ; Peripheral vascular disease I73.9 and Chronic fatigue R53.82 [facility] [address] [address] September, Anticoagulant long-term use Z79.01 and Congestive heart failure, unspecified congestive heart failure chronicity, unspecified congestive heart failure type I50.9 [place] [address] [address] September, Vitamin B12 deficiency E53.8 [place] [address] [address] September, Anticoagulant long-term use Z79.01 [place] [address] [address] September, Anticoagulant long-term use Z79.01 and Congestive heart failure, unspecified congestive heart failure chronicity, unspecified congestive heart failure type I50.9 [place] [address] [address] Aug, Chronic fatigue, unspecified R53.82 [place] [address] [address] Aug, Anticoagulant long-term use Z79.01 [facility] [address] [address] Aug, Nausea R11.0 and Weakness R53.1 [place] [address] [address] Aug, [facility] [id number] [place] [address] Aug, Hematuria R31.9 and Acute cystitis with hematuria N30.01 [place] [id number] [place] [address] Aug, [place] [id number] [place] [address] Jul, Vitamin B 12 deficiency E53.8 [place] [id number] [place] [address] Jul, Anticoagulant long-term use Z79.01 [place] [id number] [place] [address] Jun, Chronic fatigue, unspecified R53.82 [place] [address] [address] Jun, Anticoagulant long-term use Z79.01 [place] [id number] [place] [address] May, Flu-like symptoms R68.89 and Influenza A J10.1 [place] [id number] [place] [address] May, [place] [id number] [place] [address] May, Chronic fatigue, unspecified R53.82 [place] [id number] [place] [address] May, Anticoagulant long-term use Z79.01 [place] [id number] [place] [address] 15 Apr, 2017 Medicare welcome exam Z00.00 ; Anticoagulant long-term use Z79.01 ; Medicare annual wellness visit, initial Z00.00 ; Medicare annual wellness visit, subsequent Z00.00 and Chronic fatigue, unspecified R53.82 [place] [id number] [place] [address] 15 Mar, 2017 Chronic fatigue, unspecified R53.82 [place] [id number] [place] [address] Mar, Anticoagulant long-term use Z79.01 [facility] [address] [place] [address] Mar, Anticoagulant long-term use Z79.01 and Hematuria R31.9 [facility] [id number] [place] [address] Mar, Hematuria R31.9 [facility] [id number] [place] [address] Feb, Anticoagulant long-term use Z79.01 [place] [id number] [place] [address] Feb, Anticoagulant long-term use Z79.01 [place] [id number] [place] [address] Feb, Anticoagulant long-term use Z79.01 [place] [id number] [place] [address] Feb, Chronic fatigue, unspecified R53.82 [place] [id number] [place] [address] Feb, Anticoagulant long-term use Z79.01 [facility] [address] [place] [address] Feb, Congestive heart failure, unspecified congestive heart failure chronicity, unspecified congestive heart failure type I50.9 [facility] [address] [place] [address] Feb, Congestive heart failure, unspecified congestive heart failure chronicity, unspecified congestive heart failure type I50.9 [place] [id number] [place] [address] Feb, [facility] [id number] [place] [address] Jan, Anticoagulant long-term use Z79.01 [facility] [id number] [address] Jan, [facility] [id number] [place] [address] Jan, Anticoagulant long-term use Z79.01 and Hematuria R31.9 [facility] [id number] [place] [address] Jan, Anticoagulant long-term use Z79.01 [place] [id number] [place] [address] Jan, Chronic fatigue, unspecified R53.82 [place] [id number] [place] [address] Jan, Anticoagulant long-term use Z79.01 [place] [id number] [place] [address] Dec, Chronic fatigue, unspecified R53.82 [place] [id number] [place] [address] Dec, [place] [id number] [place] [address] Dec, Chronic fatigue, unspecified R53.82 and Encounter for therapeutic drug level monitoring Z51.81 [place] [id number] [place] [address] Nov, Encounter for therapeutic drug level monitoring Z51.81 [facility] [place] [id number] [place] [address] Nov, Hematuria R31.9 [place] [id number] [place] [address] Nov, Hematuria R31.9 ; Anticoagulant long-term use Z79.01 and PVD (peripheral vascular disease) I73.9 [place] [id number] [place] [address] Nov, Anticoagulant long-term use Z79.01 [place] [id number] [place] [address] Nov, Anticoagulant long-term use Z79.01 [place] [id number] [place] [address] Nov, [place] [id number] [place] [address] Nov, Hematuria R31.9 and Acute cystitis with hematuria N30.01 [facility] [address] [id number] Oct, [place] [address] [address] Oct, [place] [id number] [place] [address] Oct, Hematuria R31.9 [place] [address] [address] Oct, Hematuria R31.9 [facility] [id number] [place] [address] Oct, Anticoagulant long-term use Z79.01 [place] [id number] [place] [address] Oct, Anticoagulant long-term use Z79.01 [place] [id number] [place] [address] Oct, [place] [address] [address] September, PVD (peripheral vascular disease) I73.9 ; Amput leg, unil NOS-comp S88.919A ; Acute cystitis without hematuria N30.00 ; Anticoagulant long-term use Z79.01 and Hypokalemia E87.6 [place] [id number] [place] [address] Aug, Anticoagulant long-term use Z79.01 and Bronchitis J40 [place] [id number] [place] [address] Jul, [facility] [id number] [place] [address] Jul, Anticoagulant long-term use Z79.01 and Mood disorder F39 [facility] [id number] [place] [address] Jul, [facility] [address] [address] May, [facility] [id number] [place] [address] May, Hypokalemia E87.6 [facility] [id number] [place] [address] May, Mood disorder F39 [facility] [address] [address] May, Anticoagulant long-term use Z79.01 [facility] [id number] [place] [address] Apr, Anticoagulant long-term use Z79.01 [facility] [id number] [place] [address] Apr, Anticoagulant long-term use Z79.01 [facility] [id number] [place] [address] Apr, [facility] [id number] [place] [address] Apr, Anticoagulant long-term use Z79.01 [facility] [address] [address] Apr, Anticoagulant long-term use Z79.01 [facility] [id number] [place] [address] Apr, Anticoagulant long-term use Z79.01 [facility] [id number] [place] [address] Mar, [facility] [id number] [place] [address] Mar, [facility] [id number] [place] [address] Mar, Anticoagulant long-term use Z79.01 [facility] [address] [address] Feb, [facility] [id number] [place] [address] Feb, [facility] [address] [address] Feb, Anticoagulant long-term use Z79.01 [facility] [id number] [place] [address] Feb, Anticoagulant long-term use Z79.01 [facility] [id number] [place] [address] Jan, [facility] [id number] [place] [address] Jan, Anticoagulant long-term use Z79.01 [facility] [id number] [place] [address] Jan, Anticoagulant long-term use Z79.01 [facility] [id number] [place] [address] Dec, Anticoagulant long-term use Z79.01 [facility] [id number] [place] [address] Dec, Anticoagulant long-term use Z79.01 [facility] [id number] [place] [address] Dec, Anticoagulant long-term use Z79.01 and Mood disorder F39 [facility] [id number] [place] [address] Dec, [facility] [id number] [place] [address] Nov, [facility] [id number] [place] [address] Nov, Anticoagulant long-term use Z79.01 [facility] [id number] [place] [address] Nov, Anticoagulant long-term use Z79.01 [place] [id number] [place] [address] September, Anticoagulant long-term use Z79.01 [place] [id number] [place] [address] Jul, Anticoagulant long-term use Z79.01 [place] [id number] [place] [address] May, Anticoagulant long-term use Z79.01 [place] [id number] [place] [address] May, Anticoagulant long-term use Z79.01 [place] [id number] [place] [address] May, Anticoagulant long-term use Z79.01 [place] [id number] [place] [address] May, Anticoagulant long-term use Z79.01 [place] [id number] [place] [address] May, [place] [address] [address] May, Congestive heart failure, unspecified congestive heart failure chronicity, unspecified congestive heart failure type I50.9 and Pulmonary congestion R09.89 [place] [id number] [place] [address] Apr, Cough R05 ; Congestive heart failure, unspecified congestive heart failure chronicity, unspecified congestive heart failure type I50.9 and Pulmonary congestion R09.89 [place] [address] [address] Mar, Hematuria R31.9 [place] [address] [address] Mar, [place] [address] [address] Mar, Anticoagulant long-term use Z79.01 [place] [address] [address] Mar, [place] [address] [address] Mar, Hematuria R31.9 and Infective urethritis N34.2 [place] [address] [address] Mar, Anticoagulant long-term use Z79.01 [place] [address] [address] Mar, Anticoagulant long-term use Z79.01 [place] [id number] [place] [address] Mar, [place] [id number] [place] [address] Mar, Anticoagulant long-term use Z79.01 [place] [id number] [place] [address] Feb, Peristomal skin breakdown L98.499 [place] [address] [address] Feb, [place] [address] [address] Feb, UTI (urinary tract infection) N39.0 [place] [address] [address] Jan, [facility] [address] [address] Dec, High risk medication use V58.69 [facility] [address] [address] Nov, High risk medication use V58.69 [facility] [address] [place] [address] Nov, [facility] [id number] [address] Nov, UTI (lower urinary tract infection) 599.0 ; URI, acute 465.9 ; Insomnia 780.52 ; Anxiety 300.00 and Lower limb amputation, unspecified level V49.70 [facility] [address] [address] Oct, UTI (lower urinary tract infection) 599.0 ; URI, acute 465.9 ; Insomnia 780.52 ; Anxiety 300.00 and Lower limb amputation, unspecified level V49.70 [facility] [address] [address] Aug, [facility] [address] [address] Aug, [facility] [address] [address] Jul, [facility] [id number] [address] Jul, [facility] [address] [address] Jun, [facility] [address] [address] Jun, [facility] [id number] [address] Mar, [facility] [place] [facility] [address] [id number] [place] [address] Mar, [facility] [place] [facility] [address] [id number] [place] [address] Mar, [facility] [place] [facility] [address] [id number] [place] [address] Mar, [facility] [place] [facility] [address] [id number] [place] [address] Mar, [facility] [place] [facility] [address] [id number] [place] [address] Feb, [facility] [place] [facility] [address] [id number] [place] [address] Feb, [facility] [place] [facility] [address] [id number] [place] [address] Feb, [facility] [place] [facility] [address] [id number] [place] [address] Feb, [facility] [place] [facility] [address] [id number] [place] [address] Feb, [facility] [place] [facility] [address] [id number] [place] [address] Feb, [facility] [place] [facility] [address] [id number] [place] [address] Feb, [facility] [place] [facility] [address] [id number] [address] Feb, [facility] [place] [facility] [address] [id number] [place] [address] Feb, [facility] [place] [facility] [address] [id number] [place] [address] Feb, [facility] [place] [facility] [address] [id number] [place] [address] Feb, [facility] [place] [facility] [address] [id number] [place] [address] Feb, [facility] [place] [facility] [address] [id number] [place] [address] Feb, [facility] [place] [facility] [address] [id number] [place] [address] Feb, [facility] [place] [facility] [address] [id number] [place] [address] Feb, [facility] [place] [facility] [address] [id number] [place] [address] Feb, [facility] [place] [facility] [address] [id number] [place] [address] Jan, [facility] [place] [facility] [address] [id number] [place] [address] Jan, [facility] [place] [facility] [address] [id number] [place] [address] Jan, 2013 [facility] [place] [facility] [address] [id number] [place] [address] Jan, [facility] [place] [facility] [address] [id number] [place] [address] Jan, [facility] [place] [facility] [address] [id number] [place] [address] Nov, [facility] [place] [facility] [address] [id number] [place] [address] Nov, 2013 [facility] [place] [facility] [address] [id number] [place] [address] Nov, [facility] [place] [facility] [address] [id number] [place] [address] Nov, [facility] [place] [facility] [address] [id number] [place] [address] Nov, [facility] [place] [facility] [address] [id number] [place] [address] Nov, [facility] [place] [facility] [address] [id number] [place] [address] Oct, [facility] [place] [facility] [address] [id number] [place] [address] Oct, [facility] [place] [facility] [address] [id number] [place] [address] Oct, [facility] [place] [facility] [address] [id number] [place] [address] Oct, [facility] [place] [facility] [address] [id number] [place] [address] Oct, [facility] [place] [facility] [address] [id number] [place] [address] Oct, [facility] [place] [facility] [address] [id number] [place] [address] Oct, [facility] [place] [facility] [address] [id number] [place] [address] September, [facility] [place] [facility] [address] [id number] [place] [address] September, [facility] [place] [facility] [address] [id number] [place] [address] September, [facility] [place] [facility] [address] [address] [id number] [place] [address] September, [facility] [place] [facility] [address] [id number] [place] [address] September, [facility] [place] [facility] [address] [id number] [place] [address] September, [facility] [place] [facility] [address] [id number] [place] [address] September, [facility] [place] [facility] [address] [id number] [place] [address] September, [facility] [place] [facility] [address] [id number] [place] [address] Aug, [facility] [place] [facility] [address] [id number] [place] [address] Aug, [facility] [place] [facility] [address] [id number] [place] [address] Aug, [facility] [place] [facility] [address] [id number] [place] [address] Aug, [facility] [place] [facility] [address] [id number] [place] [address] Jul, [facility] [place] [facility] [address] [id number] [place] [address] Jul, [facility] [place] [facility] [address] [id number] [place] [address] Jun, [facility] [place] [facility] [address] [id number] [place] [address] Jun, [facility] [place] [facility] [address] [id number] [place] [address] Jun, [facility] [place] [facility] [address] [id number] [place] [address] Jun, [facility] [place] [facility] [address] [id number] [place] [address] Jun, [facility] [place] [facility] [address] [id number] [place] [address] Jun, [facility] [place] [facility] [address] [id number] [place] [address] May, [facility] [place] [facility] [address] [id number] [place] [address] May, [facility] [place] [facility] [address] [id number] [place] [address] May, [facility] [place] [facility] [address] [facility] [id number] [place] [address] May, [facility] [place] [facility] [address] [id number] [place] [address] May, [facility] [place] [facility] [address] [id number] [place] [address] May, [facility] [place] [facility] [address] [id number] [place] [address] Feb, [facility] [place] [facility] [address] [id number] [place] [address] Feb, [facility] [place] [facility] [address] [id number] [place] [address] Feb, [facility] [place] [facility] [address] [id number] [place] [address] Feb, [facility] [place] [facility] [address] [id number] [place] [address] Jan, [facility] [place] [facility] [address] [id number] [place] [address] Jan, [facility] [place] [facility] [address] [id number] [place] [address] Jan, [facility] [place] [facility] [address] [id number] [place] [address] Dec, [facility] [place] [facility] [address] [id number] [place] [address] Nov, [facility] [place] [facility] [address] [id number] [place] [address] Nov, [facility] [place] [facility] [address] [id number] [place] [address] Nov, [facility] [place] [facility] [address] [id number] [place] [address] Nov, [facility] [place] [facility] [address] [id number] [place] [address] Nov, [facility] [place] [facility] [address] [id number] [place] [address] Oct, [facility] [address] [id number] [place] [address] September, [facility] [place] [facility] [address] [id number] [place] [address] September, [facility] [place] [facility] [address] [id number] [place] [address] Aug, [facility] [place] [facility] [address] [id number] [place] [address] Aug, [facility] [place] [facility] [address] [id number] [place] [address] Jul, [facility] [place] [facility] [address] [id number] [place] [address] Jul, [facility] [place] [facility] [address] [id number] [place] [address] Jul, [facility] [place] [facility] [address] [id number] [place] [address] Jul, [facility] [place] [facility] [address] [id number] [place] [address] Jun, [facility] [place] [facility] [address] [id number] [place] [address] Jun, [facility] [place] [facility] [address] [id number] [place] [address] Jun, [facility] [place] [facility] [address] [id number], [place] [address] May, [facility] [place] [facility] [address] [id number] [place] [address] May, [facility] [place] [facility] [address] [id number] [place] [address] May, [facility] [place] [facility] [address] [id number] [place] [address] May, [facility] [place] [facility] [address] [id number] [place] [address] Apr, [facility] [address] [id number] [place] [address] Apr, [facility] [place] [facility] [address] [id number] [place] [address] Apr, [facility] [address] [id number] [place] [address] Apr, [facility] [place] [facility] [address] [id number] [place] [address] Apr, [facility] [place] [facility] [address] [id number] [place] [address] Apr, [facility] [place] [facility] [address] [id number] [place] [address] Mar, [facility] [place] [facility] [address] [facility] [id number] [place] [address] Mar, [facility] [place] [facility] [address] [id number] [place] [address] Mar, [facility] [place] [facility] [address] [id number] [place] [address] Mar, [facility] [place] [facility] [address] [facility] [id number] [place] [address] Mar, [facility] [place] [facility] [address] [id number] [place] [address] Mar, [facility] [place] [facility] [address] [id number] [place] [address] Feb, [facility] [place] [facility] [address] [id number] [place] [address] Feb, [facility] [place] [facility] [address] [facility] [id number] [place] [address] Feb, [facility] [place] [facility] [address] [facility] [id number] [place] [address] Feb, [facility] [place] [facility] [address] [id number] [place] [address] Jan, [facility] [place] [facility] [address] [id number] [place] [address] Jan, [facility] [place] [facility] [address] [id number] [place] [address] Jan, [facility] [place] [facility] [address] [id number] [place] [address] Jan, [facility] [place] [facility] [address] [id number] [place] [address] Dec, [facility] [place] [facility] [address] [id number] [place] [address] Dec, [facility] [place] [facility] [address] [id number] [place] [address] Nov, [facility] [place] [facility] [address] [id number] [place] [address] Oct, [facility] [place] [facility] [address] [id number] [place] [address] Oct, [facility] [place] [facility] [address] [id number] [place] [address] Oct, [facility] [place] [facility] [address] [id number] [place] [address] September, [facility] [place] [facility] [address] [id number] [place] [address] September, [facility] [place] [facility] [address] [id number] [place] [address] September, [facility] [place] [facility] [address] [id number] [place] [address] September, [facility] [place] [facility] [address] [id number] [place] [address] September, [facility] [place] [facility] [address] [id number], [place] [address] September, [facility] [place] [facility] [address] [id number] [place] [address] September, [facility] [place] [facility] [address] [id number] [place] [address] Jul, [facility] [place] [facility] [address] [id number] [place] [address] Jul, [facility] [place] [facility] [address] [id number] [place] [address] Jun, [facility] [place] [facility] [address] [id number] [place] [address] Jun, [facility] [place] [facility] [address] [facility] [id number] [place] [address] Jun, [facility] [address] [facility] [id number] [place] [address] May, [facility] [place] [facility] [address] [id number] [place] [address] Mar, [facility] [place] [facility] [address] [facility] [id number] [place] [address] Mar, [facility] [place] [facility] [address] [facility] [id number] [place] [address] Mar, [facility] [place] [facility] [address] [facility] [id number] [place] [address] 31 Feb, 2011 [facility] [place] [facility] [address] [id number], [place] [address] Feb, [facility] [place] [facility] [address] [id number] [place] [address] Dec, [facility] [place] [facility] [address] [facility] [id number] [place] [address] 15 May, 2009 [facility] [place] [facility] [address] [facility] [id number], [place] [address] Apr, [facility] [place] [facility] [address] [facility] [id number], [place] [address] Apr, [facility] [address] [facility] [id number], [place] [address] Apr, [facility] [address] [facility] [id number], [place] [address] Apr, [facility] [address] [facility] [id number], [place] [address] 30 Feb, 2009 [facility] [address] [facility] [id number], [place] [address] Oct, IMMUNIZATIONS No Known Immunizations SOCIAL HISTORY Never Assessed REASON FOR VISIT [place] [place] VITAL SIGNS MEDICATIONS Unknown [...] 5th toe removal 06/25/2009 Hospitalization History pneumonia, hypoxia-[facility] 11/03/16
--- OUTSIDE RECORDS SUMMARY | 2018-12-05 11:39 | XMS REPORT ---
Author Author Migration, Doctor Organization [facility] Address Unknown Phone Unavailable Care Team Providers Care Lead Systems Developer Name Role Phone Migration, Doctor Unavailable Unavailable PROBLEMS Type Condition ICD9-CM Code SPU28-AV Code Onset Dates Condition Status SNOMED Code Problem Mood disorder F39 Active 91970301 Problem Amput leg, unil NOS-comp S88.919A Active 63223186 Problem PVD (peripheral vascular disease) I73.9 Active 105105802 Problem Acute cystitis with hematuria N30.01 Active 56365886 Problem Chronic obstructive pulmonary disease, unspecified COPD type J44.9 Active 96684669 Problem Anticoagulant long-term use Z79.01 Active 724365446 Problem Vitamin B12 deficiency E53.8 Dec, Active 191629990 Problem Major depressive disorder, single episode, unspecified F32.9 Active 57849490 Problem Chronic fatigue, unspecified R53.82 Active 250943189 Problem Congestive heart failure, unspecified congestive heart failure chronicity, unspecified congestive heart failure type I50.9 Active 64749596 Problem Chronic fatigue R53.82 Active 40113049 Problem Peripheral vascular disease I73.9 Active 992301255 ALLERGIES No Information ENCOUNTERS Encounter Location Date Diagnosis [facility] [address] [address] Jun, [facility] [id number] [place] [address] Jun, Vitamin B12 deficiency E53.8 [facility] [address] [address] Jun, Anticoagulant long-term use Z79.01 [facility] [address] [place] [address] Jun, Encounter for Medicare annual wellness exam Z00.00 ; Major depressive disorder, single episode, unspecified F32.9 ; PVD (peripheral vascular disease) I73.9 ; Congestive heart failure, unspecified congestive heart failure chronicity, unspecified congestive heart failure type I50.9 and Chronic obstructive pulmonary disease, unspecified COPD type J44.9 [facility] [id number] [place] [address] May, Vitamin B12 deficiency E53.8 [facility] [id number] [place] [address] May, Anticoagulant long-term use Z79.01 [facility] [id number] [place] [address] Apr, [place] [address] [address] Apr, Anticoagulant long-term use Z79.01 [facility] [id number] [place] [address] Apr, Anticoagulant long-term use Z79.01 [facility] [id number] [place] [address] Mar, Chronic fatigue R53.82 [place] [address] [address] Mar, Anticoagulant long-term use Z79.01 [facility] [id number] [place] [address] Feb, [facility] [id number] [place] [address] Feb, Vitamin B12 deficiency E53.8 [place] [id number] [place] [address] Feb, Vitamin B12 deficiency E53.8 [place] [id number] [place] [address] Feb, Vitamin B12 deficiency E53.8 and Anticoagulant long-term use Z79.01 [place] [id number] [place] [address] Jan, Anticoagulant long-term use Z79.01 [facility] [id number] [place] [address] Jan, Vitamin B12 deficiency E53.8 [facility] [id number] [place] [address] Jan, Anticoagulant long-term use Z79.01 [facility] [id number] [place] [address] Jan, Major depressive disorder, single episode, unspecified F32.9 [facility] [id number] [place] [address] Jan, [place] [id number] [place] [address] Jan, Anticoagulant long-term use Z79.01 [place] [id number] [place] [address] Dec, Anticoagulant long-term use Z79.01 [facility] [id number] [place] [address] Dec, Vitamin B12 deficiency E53.8 [place] [id number] [place] [address] Dec, Major depressive disorder, single episode, unspecified F32.9 [place] [id number] [place] [address] Nov, Vitamin B 12 deficiency E53.8 [facility] [id number] [place] [address] Nov, Anticoagulant long-term use Z79.01 ; Mood disorder F39 ; Chronic obstructive pulmonary disease, unspecified COPD type J44.9 ; Peripheral vascular disease I73.9 and Chronic fatigue R53.82 [facility] [id number] [place] [address] Nov, Mood disorder F39 [facility] [address] [place] [address] Nov, [facility] [id number] [place] [address] Oct, Mood disorder F39 ; Chronic obstructive pulmonary disease, unspecified COPD type J44.9 ; Peripheral vascular disease I73.9 and Chronic fatigue R53.82 [facility] [address] [address] September, Anticoagulant long-term use Z79.01 and Congestive heart failure, unspecified congestive heart failure chronicity, unspecified congestive heart failure type I50.9 [place] [address] [address] September, Vitamin B12 deficiency E53.8 [place] [address] [address] September, Anticoagulant long-term use Z79.01 [place] [address] [address] September, Anticoagulant long-term use Z79.01 and Congestive heart failure, unspecified congestive heart failure chronicity, unspecified congestive heart failure type I50.9 [place] [address] [address] Aug, Chronic fatigue, unspecified R53.82 [place] [address] [address] Aug, Anticoagulant long-term use Z79.01 [facility] [address] [address] Aug, Nausea R11.0 and Weakness R53.1 [place] [address] [address] Aug, [facility] [id number] [place] [address] Aug, Hematuria R31.9 and Acute cystitis with hematuria N30.01 [facility] [id number] [place] [address] Aug, [place] [id number] [place] [address] Jul, Vitamin B 12 deficiency E53.8 [place] [id number] [place] [address] Jul, Anticoagulant long-term use Z79.01 [place] [id number] [place] [address] Jun, Chronic fatigue, unspecified R53.82 [place] [address] [address] Jun, Anticoagulant long-term use Z79.01 [place] [id number] [place] [address] May, Flu-like symptoms R68.89 and Influenza A J10.1 [place] [id number] [place] [address] May, [place] [id number] [place] [address] May, Chronic fatigue, unspecified R53.82 [place] [id number] [place] [address] May, Anticoagulant long-term use Z79.01 [place] [id number] [place] [address] 15 Apr, 2017 Medicare welcome exam Z00.00 ; Anticoagulant long-term use Z79.01 ; Medicare annual wellness visit, initial Z00.00 ; Medicare annual wellness visit, subsequent Z00.00 and Chronic fatigue, unspecified R53.82 [place] [id number] [place] [address] 15 Mar, 2017 Chronic fatigue, unspecified R53.82 [place] [id number] [place] [address] Mar, Anticoagulant long-term use Z79.01 [facility] [address] [place] [address] Mar, Anticoagulant long-term use Z79.01 and Hematuria R31.9 [facility] [id number] [place] [address] Mar, Hematuria R31.9 [facility] [id number] [place] [address] Feb, Anticoagulant long-term use Z79.01 [place] [id number] [place] [address] Feb, Anticoagulant long-term use Z79.01 [place] [id number] [place] [address] Feb, Anticoagulant long-term use Z79.01 [place] [id number] [place] [address] Feb, Chronic fatigue, unspecified R53.82 [place] [id number] [place] [address] Feb, Anticoagulant long-term use Z79.01 [facility] [id number] [place] [address] Feb, Congestive heart failure, unspecified congestive heart failure chronicity, unspecified congestive heart failure type I50.9 [facility] [id number] [place] [address] Feb, Congestive heart failure, unspecified congestive heart failure chronicity, unspecified congestive heart failure type I50.9 [place] [id number] [place] [address] Feb, [facility] [id number] [place] [address] Jan, Anticoagulant long-term use Z79.01 [facility] [id number] [address] Jan, [facility] [id number] [place] [address] Jan, Anticoagulant long-term use Z79.01 and Hematuria R31.9 [facility] [id number] [place] [address] Jan, Anticoagulant long-term use Z79.01 [place] [id number] [place] [address] Jan, Chronic fatigue, unspecified R53.82 [place] [id number] [place] [address] Jan, Anticoagulant long-term use Z79.01 [place] [id number] [place] [address] Dec, Chronic fatigue, unspecified R53.82 [place] [id number] [place] [address] Dec, [place] [id number] [place] [address] Dec, Chronic fatigue, unspecified R53.82 and Encounter for therapeutic drug level monitoring Z51.81 [place] [id number] [place] [address] Nov, Encounter for therapeutic drug level monitoring Z51.81 [place] [id number] [place] [address] Nov, Hematuria R31.9 [place] [id number] [place] [address] Nov, Hematuria R31.9 ; Anticoagulant long-term use Z79.01 and PVD (peripheral vascular disease) I73.9 [place] [id number] [place] [address] Nov, Anticoagulant long-term use Z79.01 [place] [id number] [place] [address] Nov, Anticoagulant long-term use Z79.01 [place] [id number] [place] [address] Nov, [place] [id number] [place] [address] Nov, Hematuria R31.9 and Acute cystitis with hematuria N30.01 [facility] [address] [id number] Oct, [place] [address] [address] Oct, [place] [id number] [place] [address] Oct, Hematuria R31.9 [place] [address] [address] Oct, Hematuria R31.9 [facility] [id number] [place] [address] Oct, Anticoagulant long-term use Z79.01 [place] [id number] [place] [address] Oct, Anticoagulant long-term use Z79.01 [place] [id number] [place] [address] Oct, [place] [address] [address] September, PVD (peripheral vascular disease) I73.9 ; Amput leg, unil NOS-comp S88.919A ; Acute cystitis without hematuria N30.00 ; Anticoagulant long-term use Z79.01 and Hypokalemia E87.6 [place] [id number] [place] [address] Aug, Anticoagulant long-term use Z79.01 and Bronchitis J40 [place] [id number] [place] [address] Jul, [facility] [id number] [place] [address] Jul, Anticoagulant long-term use Z79.01 and Mood disorder F39 [facility] [id number] [place] [address] Jul, [facility] [address] [address] May, [facility] [id number] [place] [address] May, Hypokalemia E87.6 [facility] [id number] [place] [address] May, Mood disorder F39 [facility] [address] [address] May, Anticoagulant long-term use Z79.01 [facility] [id number] [place] [address] Apr, Anticoagulant long-term use Z79.01 [facility] [id number] [place] [address] Apr, Anticoagulant long-term use Z79.01 [facility] [id number] [place] [address] Apr, [facility] [id number] [place] [address] Apr, Anticoagulant long-term use Z79.01 [facility] [address] [address] Apr, Anticoagulant long-term use Z79.01 [facility] [id number] [place] [address] Apr, Anticoagulant long-term use Z79.01 [facility] [id number] [place] [address] Mar, [facility] [id number] [place] [address] Mar, [facility] [id number] [place] [address] Mar, Anticoagulant long-term use Z79.01 [facility] [address] [address] Feb, [facility] [id number] [place] [address] Feb, [facility] [address] [address] Feb, Anticoagulant long-term use Z79.01 [facility] [id number] [place] [address] Feb, Anticoagulant long-term use Z79.01 [facility] [id number] [place] [address] Jan, [facility] [id number] [place] [address] Jan, Anticoagulant long-term use Z79.01 [facility] [id number] [place] [address] Jan, Anticoagulant long-term use Z79.01 [facility] [id number] [place] [address] Dec, Anticoagulant long-term use Z79.01 [facility] [id number] [place] [address] Dec, Anticoagulant long-term use Z79.01 [facility] [id number] [place] [address] Dec, Anticoagulant long-term use Z79.01 and Mood disorder F39 [facility] [id number] [place] [address] Dec, [facility] [id number] [place] [address] Nov, [facility] [id number] [place] [address] Nov, Anticoagulant long-term use Z79.01 [facility] [id number] [place] [address] Nov, Anticoagulant long-term use Z79.01 [place] [id number] [place] [address] September, Anticoagulant long-term use Z79.01 [place] [id number] [place] [address] Jul, Anticoagulant long-term use Z79.01 [place] [id number] [place] [address] May, Anticoagulant long-term use Z79.01 [facility] [place] [id number] [place] [address] May, Anticoagulant long-term use Z79.01 [facility] [id number] [place] [address] May, Anticoagulant long-term use Z79.01 [place] [id number] [place] [address] May, Anticoagulant long-term use Z79.01 [facility] [id number] [place] [address] May, [place] [address] [address] May, Congestive heart failure, unspecified congestive heart failure chronicity, unspecified congestive heart failure type I50.9 and Pulmonary congestion R09.89 [facility] [id number] [place] [address] Apr, Cough R05 ; Congestive heart failure, unspecified congestive heart failure chronicity, unspecified congestive heart failure type I50.9 and Pulmonary congestion R09.89 [place] [address] [address] Mar, Hematuria R31.9 [place] [address] [address] Mar, [place] [address] [address] Mar, Anticoagulant long-term use Z79.01 [place] [address] [address] Mar, [place] [address] [address] Mar, Hematuria R31.9 and Infective urethritis N34.2 [place] [address] [address] Mar, Anticoagulant long-term use Z79.01 [place] [address] [address] Mar, Anticoagulant long-term use Z79.01 [place] [id number] [place] [address] Mar, [facility] [id number] [place] [address] Mar, Anticoagulant long-term use Z79.01 [place] [id number] [place] [address] Feb, Peristomal skin breakdown L98.499 [place] [address] [address] Feb, [place] [address] [address] Feb, UTI (urinary tract infection) N39.0 [place] [address] [address] Jan, [facility] [address] [address] Dec, High risk medication use V58.69 [facility] [address] [address] Nov, High risk medication use V58.69 [facility] [id number] [place] [address] Nov, [facility] [id number] [address] Nov, UTI (lower urinary tract infection) 599.0 ; URI, acute 465.9 ; Insomnia 780.52 ; Anxiety 300.00 and Lower limb amputation, unspecified level V49.70 [facility] [address] [address] Oct, UTI (lower urinary tract infection) 599.0 ; URI, acute 465.9 ; Insomnia 780.52 ; Anxiety 300.00 and Lower limb amputation, unspecified level V49.70 [facility] [address] [address] Aug, [facility] [address] [address] Aug, [facility] [address] [address] Jul, [facility] [id number] [address] Jul, [facility] [address] [address] Jun, [facility] [address] [address] Jun, [facility] [id number] [address] Mar, [facility] [place] [facility] [address] [id number] [place] [address] Mar, [facility] [place] [facility] [address] [id number] [place] [address] Mar, [facility] [place] [facility] [address] [id number] [place] [address] Mar, [facility] [place] [facility] [address] [id number] [place] [address] Mar, [facility] [place] [facility] [address] [id number] [place] [address] Feb, [facility] [place] [facility] [address] [id number] [place] [address] Feb, [facility] [place] [facility] [address] [id number] [place] [address] Feb, [facility] [place] [facility] [address] [id number] [place] [address] Feb, [facility] [place] [facility] [address] [id number] [place] [address] Feb, [facility] [place] [facility] [address] [id number] [place] [address] Feb, [facility] [place] [facility] [address] [id number] [place] [address] Feb, [facility] [place] [facility] [address] [id number] [address] Feb, [facility] [place] [facility] [address] [id number] [place] [address] Feb, [facility] [place] [facility] [address] [id number] [place] [address] Feb, [facility] [place] [facility] [address] [id number] [place] [address] Feb, [facility] [place] [facility] [address] [id number] [place] [address] Feb, [facility] [place] [facility] [address] [id number] [place] [address] Feb, [facility] [place] [facility] [address] [id number] [place] [address] Feb, [facility] [place] [facility] [address] [id number] [place] [address] Feb, [facility] [place] [facility] [address] [id number] [place] [address] Feb, [facility] [place] [facility] [address] [id number] [place] [address] Jan, [facility] [place] [facility] [address] [id number] [place] [address] Jan, [facility] [place] [facility] [address] [id number] [place] [address] Jan, 2013 [facility] [place] [facility] [address] [id number] [place] [address] Jan, [facility] [place] [facility] [address] [id number] [place] [address] Jan, [facility] [place] [facility] [address] [id number] [place] [address] Nov, [facility] [place] [facility] [address] [id number] [place] [address] Nov, 2013 [facility] [place] [facility] [address] [id number] [place] [address] Nov, [facility] [place] [facility] [address] [id number] [place] [address] Nov, [facility] [place] [facility] [address] [id number] [place] [address] Nov, [facility] [place] [facility] [address] [id number] [place] [address] Nov, [facility] [place] [facility] [address] [id number] [place] [address] Oct, [facility] [place] [facility] [address] [id number] [place] [address] Oct, [facility] [place] [facility] [address] [id number] [place] [address] Oct, [facility] [place] [facility] [address] [id number] [place] [address] Oct, [facility] [place] [facility] [address] [id number] [place] [address] Oct, [facility] [place] [facility] [address] [id number] [place] [address] Oct, [facility] [place] [facility] [address] [id number] [place] [address] Oct, [facility] [place] [facility] [address] [id number] [place] [address] September, [facility] [place] [facility] [address] [id number] [place] [address] September, [facility] [place] [facility] [address] [id number] [place] [address] September, [facility] [place] [facility] [address] [id number] [place] [address] September, [facility] [place] [facility] [address] [id number] [place] [address] September, [facility] [place] [facility] [address] [id number] [place] [address] September, [facility] [place] [facility] [address] [id number] [place] [address] September, [facility] [place] [facility] [address] [id number] [place] [address] September, [facility] [place] [facility] [address] [id number] [place] [address] Aug, [facility] [place] [facility] [address] [id number] [place] [address] Aug, [facility] [place] [facility] [address] [id number] [place] [address] Aug, [facility] [place] [facility] [address] [id number] [place] [address] Aug, [facility] [place] [facility] [address] [id number] [place] [address] Jul, [facility] [place] [facility] [address] [id number] [place] [address] Jul, [facility] [place] [facility] [address] [id number] [place] [address] Jun, [facility] [place] [facility] [address] [id number] [place] [address] Jun, [facility] [place] [facility] [address] [id number] [place] [address] Jun, [facility] [place] [facility] [address] [id number] [place] [address] Jun, [facility] [place] [facility] [address] [id number] [place] [address] Jun, [facility] [place] [facility] [address] [id number] [place] [address] Jun, [facility] [place] [facility] [address] [id number] [place] [address] May, [facility] [place] [facility] [address] [id number] [place] [address] May, [facility] [place] [facility] [address] [id number] [place] [address] May, [facility] [place] [facility] [address] [facility] [id number] [place] [address] May, [facility] [place] [facility] [address] [id number] [place] [address] May, [facility] [place] [facility] [address] [id number] [place] [address] May, [facility] [place] [facility] [address] [id number] [place] [address] Feb, [facility] [place] [facility] [address] [id number] [place] [address] Feb, [facility] [place] [facility] [address] [id number] [place] [address] Feb, [facility] [place] [facility] [address] [id number] [place] [address] Feb, [facility] [place] [facility] [address] [id number] [place] [address] Jan, [facility] [place] [facility] [address] [id number] [place] [address] Jan, [facility] [place] [facility] [address] [id number] [place] [address] Jan, [facility] [place] [facility] [address] [id number] [place] [address] Dec, [facility] [place] [facility] [address] [id number] [place] [address] Nov, [facility] [place] [facility] [address] [id number] [place] [address] Nov, [facility] [place] [facility] [address] [id number] [place] [address] Nov, [facility] [place] [facility] [address] [id number] [place] [address] Nov, [facility] [place] [facility] [address] [id number] [place] [address] Nov, [facility] [place] [facility] [address] [id number] [place] [address] Oct, [facility] [address] [id number] [place] [address] September, [facility] [place] [facility] [address] [id number] [place] [address] September, [facility] [place] [facility] [address] [id number] [place] [address] Aug, [facility] [place] [facility] [address] [id number] [place] [address] Aug, [facility] [place] [facility] [address] [id number] [place] [address] Jul, [facility] [place] [facility] [address] [id number] [place] [address] Jul, [facility] [place] [facility] [address] [id number] [place] [address] Jul, [facility] [place] [facility] [address] [id number] [place] [address] Jul, [facility] [place] [facility] [address] [id number] [place] [address] Jun, [facility] [place] [facility] [address] [id number] [place] [address] Jun, [facility] [place] [facility] [address] [id number] [place] [address] Jun, [facility] [place] [facility] [address] [id number] [place] [address] May, [facility] [place] [facility] [address] [id number] [place] [address] May, [facility] [place] [facility] [address] [id number] [place] [address] May, [facility] [place] [facility] [address] [id number] [place] [address] May, [facility] [place] [facility] [address] [id number] [place] [address] Apr, [facility] [address] [id number] [place] [address] Apr, [facility] [place] [facility] [address] [id number] [place] [address] Apr, [facility] [address] [id number] [place] [address] Apr, [facility] [place] [facility] [address] [id number] [place] [address] Apr, [facility] [place] [facility] [address] [id number] [place] [address] Apr, [facility] [place] [facility] [address] [id number] [place] [address] Mar, [facility] [place] [facility] [address] [facility] [id number] [place] [address] Mar, [facility] [place] [facility] [address] [id number] [place] [address] Mar, [facility] [place] [facility] [address] [id number] [place] [address] Mar, [facility] [place] [facility] [address] [facility] [id number] [place] [address] Mar, [facility] [place] [facility] [address] [id number] [place] [address] Mar, [facility] [place] [facility] [address] [id number] [place] [address] Feb, [facility] [place] [facility] [address] [id number] [place] [address] Feb, [facility] [place] [facility] [address] [facility] [id number] [place] [address] Feb, [facility] [place] [facility] [address] [facility] [id number] [place] [address] Feb, [facility] [place] [facility] [address] [id number] [place] [address] Jan, [facility] [place] [facility] [address] [id number] [place] [address] Jan, [facility] [place] [facility] [address] [id number] [place] [address] Jan, [facility] [place] [facility] [address] [id number] [place] [address] Jan, [facility] [place] [facility] [address] [id number] [place] [address] Dec, [facility] [place] [facility] [address] [id number] [place] [address] Dec, [facility] [place] [facility] [address] [id number] [place] [address] Nov, [facility] [place] [facility] [address] [id number] [place] [address] Oct, [facility] [place] [facility] [address] [id number] [place] [address] Oct, [facility] [place] [facility] [address] [id number] [place] [address] Oct, [facility] [place] [facility] [address] [id number] [place] [address] September, [facility] [place] [facility] [address] [id number] [place] [address] September, [facility] [place] [facility] [address] [id number] [place] [address] September, [facility] [place] [facility] [address] [id number] [place] [address] September, [facility] [place] [facility] [address] [id number] [place] [address] September, [facility] [place] [facility] [address] [id number] [place] [address] September, [facility] [place] [facility] [address] [id number] [place] [address] September, [facility] [place] [facility] [address] [id number] [place] [address] Jul, [facility] [place] [facility] [address] [id number] [place] [address] Jul, [facility] [place] [facility] [address] [id number] [place] [address] Jun, [facility] [place] [facility] [address] [id number] [place] [address] Jun, [facility] [place] [facility] [address] [facility] [id number] [place] [address] Jun, [facility] [address] [facility] [id number] [place] [address] May, [facility] [place] [facility] [address] [id number] [place] [address] Mar, [facility] [place] [facility] [address] [facility] [id number] [place] [address] Mar, [facility] [place] [facility] [address] [facility] [id number] [place] [address] Mar, [facility] [place] [facility] [address] [facility] [id number] [place] [address] 31 Feb, 2011 [facility] [place] [facility] [address] [id number] [place] [address] Feb, [facility] [place] [facility] [address] [id number] [place] [address] Dec, [facility] [place] [facility] [address] [facility] [id number] [place] [address] 15 May, 2009 [facility] [place] [facility] [address] [facility] [id number] [place] [address] Apr, [facility] [place] [facility] [address] [facility] [id number] [place] [address] Apr, [facility] [address] [facility] [id number] [place] [address] Apr, [facility] [address] [facility] [id number] [place] [address] Apr, [facility] [address] [facility] [id number] [place] [address] 30 Feb, 2009 [facility] [address] [facility] [id number] [place] [address] Oct, IMMUNIZATIONS No Known Immunizations SOCIAL HISTORY Never Assessed REASON FOR VISIT EMR-[facility] [place] PLAN OF CARE VITAL SIGNS MEDICATIONS Unknown [...] 5th toe removal 06/25/2009 Hospitalization History pneumonia, hypoxia-[facility] 11/03/16
--- OUTSIDE RECORDS SUMMARY | 2018-12-05 11:40 | XMS REPORT ---
Author Author Migration, Doctor Organization [facility] Address Unknown Phone Unavailable Care Team Providers Care Authorizer Name Role Phone Migration, Doctor Unavailable Unavailable PROBLEMS Type Condition ICD9-CM Code ZDB66-EH Code Onset Dates Condition Status SNOMED Code Problem Mood disorder F39 Active 24961936 Problem Amput leg, unil NOS-comp S88.919A Active 92739587 Problem PVD (peripheral vascular disease) I73.9 Active 080735445 Problem Acute cystitis with hematuria N30.01 Active 36911514 Problem Chronic obstructive pulmonary disease, unspecified COPD type J44.9 Active 13189040 Problem Anticoagulant long-term use Z79.01 Active 404006694 Problem Vitamin B12 deficiency E53.8 Dec, Active 620634390 Problem Major depressive disorder, single episode, unspecified F32.9 Active 69400756 Problem Chronic fatigue, unspecified R53.82 Active 080196684 Problem Congestive heart failure, unspecified congestive heart failure chronicity, unspecified congestive heart failure type I50.9 Active 21086661 Problem Chronic fatigue R53.82 Active 84661347 Problem Peripheral vascular disease I73.9 Active 557562300 ALLERGIES No Information ENCOUNTERS Encounter Location Date Diagnosis [facility] [id number] [address] Jun, [facility] [id number] [place] [address] Jun, Vitamin B12 deficiency E53.8 [facility] [id number] [place] [address] Jun, Anticoagulant long-term use Z79.01 [facility] [id number] [place] [address] 13 Jun, 2018 Encounter for Medicare annual wellness exam Z00.00 ; Major depressive disorder, single episode, unspecified F32.9 ; PVD (peripheral vascular disease) I73.9 ; Congestive heart failure, unspecified congestive heart failure chronicity, unspecified congestive heart failure type I50.9 and Chronic obstructive pulmonary disease, unspecified COPD type J44.9 [facility] [id number] [place] [address] May, Vitamin B12 deficiency E53.8 [facility] [id number] [place] [address] May, Anticoagulant long-term use Z79.01 [facility] [id number] [place] [address] Apr, [place] [address] [address] Apr, Anticoagulant long-term use Z79.01 [facility] [id number] [place] [address] Apr, Anticoagulant long-term use Z79.01 [facility] [id number] [place] [address] Mar, Chronic fatigue R53.82 [place] [address] [address] Mar, Anticoagulant long-term use Z79.01 [facility] [id number] [place] [address] Feb, [facility] [id number] [place] [address] Feb, Vitamin B12 deficiency E53.8 [place] [id number] [place] [address] Feb, Vitamin B12 deficiency E53.8 [place] [id number] [place] [address] Feb, Vitamin B12 deficiency E53.8 and Anticoagulant long-term use Z79.01 [place] [id number] [place] [address] Jan, Anticoagulant long-term use Z79.01 [facility] [id number] [place] [address] Jan, Vitamin B12 deficiency E53.8 [facility] [id number] [place] [address] Jan, Anticoagulant long-term use Z79.01 [facility] [id number] [place] [address] Jan, Major depressive disorder, single episode, unspecified F32.9 [facility] [id number] [place] [address] Jan, [place] [id number] [place] [address] Jan, Anticoagulant long-term use Z79.01 [place] [id number] [place] [address] Dec, Anticoagulant long-term use Z79.01 [facility] [id number] [place] [address] Dec, Vitamin B12 deficiency E53.8 [place] [id number] [place] [address] Dec, Major depressive disorder, single episode, unspecified F32.9 [place] [id number] [place] [address] Nov, Vitamin B [address] [facility] [id number] [place] [address] Nov, Anticoagulant long-term use Z79.01 ; Mood disorder F39 ; Chronic obstructive pulmonary disease, unspecified COPD type J44.9 ; Peripheral vascular disease I73.9 and Chronic fatigue R53.82 [facility] [id number] [place] [address] Nov, Mood disorder F39 [facility] [address] [place] [address] Nov, [facility] [id number] [place] [address] Oct, Mood disorder F39 ; Chronic obstructive pulmonary disease, unspecified COPD type J44.9 ; Peripheral vascular disease I73.9 and Chronic fatigue R53.82 [facility] [address] [address] September, Anticoagulant long-term use Z79.01 and Congestive heart failure, unspecified congestive heart failure chronicity, unspecified congestive heart failure type I50.9 [place] [address] [address] September, Vitamin B12 deficiency E53.8 [place] [address] [address] September, Anticoagulant long-term use Z79.01 [place] [address] [address] September, Anticoagulant long-term use Z79.01 and Congestive heart failure, unspecified congestive heart failure chronicity, unspecified congestive heart failure type I50.9 [place] [address] [address] Aug, Chronic fatigue, unspecified R53.82 [place] [address] [address] Aug, Anticoagulant long-term use Z79.01 [facility] [address] [address] Aug, Nausea R11.0 and Weakness R53.1 [place] [address] [address] Aug, [facility] [id number] [place] [address] Aug, Hematuria R31.9 and Acute cystitis with hematuria N30.01 [facility] [id number] [place] [address] Aug, [place] [id number] [place] [address] Jul, Vitamin B 12 deficiency E53.8 [place] [id number] [place] [address] Jul, Anticoagulant long-term use Z79.01 [place] [id number] [place] [address] Jun, Chronic fatigue, unspecified R53.82 [place] [address] [address] Jun, Anticoagulant long-term use Z79.01 [place] [id number] [place] [address] May, Flu-like symptoms R68.89 and Influenza A J10.1 [place] [id number] [place] [address] May, [place] [id number] [place] [address] May, Chronic fatigue, unspecified R53.82 [place] [id number] [place] [address] May, Anticoagulant long-term use Z79.01 [place] [id number] [place] [address] 15 Apr, 2017 Medicare welcome exam Z00.00 ; Anticoagulant long-term use Z79.01 ; Medicare annual wellness visit, initial Z00.00 ; Medicare annual wellness visit, subsequent Z00.00 and Chronic fatigue, unspecified R53.82 [place] [id number] [place] [address] 15 Mar, 2017 Chronic fatigue, unspecified R53.82 [place] [id number] [place] [address] Mar, Anticoagulant long-term use Z79.01 [facility] [id number] [place] [address] Mar, Anticoagulant long-term use Z79.[address] [facility] [id number] [place] [address] Mar, Hematuria R31.9 [facility] [id number] [place] [address] Feb, Anticoagulant long-term use Z79.01 [place] [id number] [place] [address] Feb, Anticoagulant long-term use Z79.01 [place] [id number] [place] [address] Feb, Anticoagulant long-term use Z79.01 [place] [id number] [place] [address] Feb, Chronic fatigue, unspecified R53.82 [facility] [place] [id number] [place] [address] Feb, Anticoagulant long-term use Z79.01 [facility] [id number] [place] [address] Feb, Congestive heart failure, unspecified congestive heart failure chronicity, unspecified congestive heart failure type I50.9 [facility] [id number] [place] [address] Feb, Congestive heart failure, unspecified congestive heart failure chronicity, unspecified congestive heart failure type I50.9 [place] [id number] [place] [address] Feb, [facility] [id number] [place] [address] Jan, Anticoagulant long-term use Z79.01 [facility] [id number], [place] [address] Jan, [facility] [id number] [place] [address] Jan, Anticoagulant long-term use Z79.[address] [facility] [id number] [place] [address] Jan, Anticoagulant long-term use Z79.01 [place] [id number] [place] [address] Jan, Chronic fatigue, unspecified R53.82 [place] [id number] [place] [address] Jan, Anticoagulant long-term use Z79.01 [place] [id number] [place] [address] Dec, Chronic fatigue, unspecified R53.82 [place] [id number] [place] [address] Dec, [place] [id number] [place] [address] Dec, Chronic fatigue, unspecified R53.82 and Encounter for therapeutic drug level monitoring Z51.81 [facility] [place] [id number] [place] [address] Nov, Encounter for therapeutic drug level monitoring Z51.81 [facility] [place] [id number] [place] [address] Nov, Hematuria R31.9 [facility] [place] [id number] [place] [address] Nov, Hematuria R31.9 ; Anticoagulant long-term use Z79.01 and PVD (peripheral vascular disease) I73.9 [facility] [place] [id number] [place] [address] Nov, Anticoagulant long-term use Z79.01 [place] [id number] [place] [address] Nov, Anticoagulant long-term use Z79.01 [place] [id number] [place] [address] Nov, [place] [id number] [place] [address] Nov, Hematuria R31.9 and Acute cystitis with hematuria N30.01 [facility] [address] [id number] Oct, [place] [address] [address] Oct, [place] [id number] [place] [address] Oct, Hematuria R31.9 [place] [address] [address] Oct, Hematuria R31.9 [facility] [id number] [place] [address] Oct, Anticoagulant long-term use Z79.01 [place] [id number] [place] [address] Oct, Anticoagulant long-term use Z79.01 [place] [id number] [place] [address] Oct, [place] [address] [address] September, PVD (peripheral vascular disease) I73.9 ; Amput leg, unil NOS-comp S88.919A ; Acute cystitis without hematuria N30.00 ; Anticoagulant long-term use Z79.01 and Hypokalemia E87.6 [place] [id number] [place] [address] Aug, Anticoagulant long-term use Z79.01 and Bronchitis J40 [place] [id number] [place] [address] Jul, [facility] [id number] [place] [address] Jul, Anticoagulant long-term use Z79.[address] Mood [address] F39 [facility] [id number] [place] [address] Jul, [facility] [address] [address] May, [facility] [id number] [place] [address] May, Hypokalemia E87.6 [facility] [id number] [place] [address] May, Mood disorder F39 [facility] [address] [address] May, Anticoagulant long-term use Z79.01 [facility] [id number] [place] [address] Apr, Anticoagulant long-term use Z79.01 [facility] [id number] [place] [address] Apr, Anticoagulant long-term use Z79.01 [facility] [id number] [place] [address] Apr, [facility] [id number] [place] [address] Apr, Anticoagulant long-term use Z79.01 [facility] [address] [address] Apr, Anticoagulant long-term use Z79.01 [facility] [id number] [place] [address] Apr, Anticoagulant long-term use Z79.01 [facility] [id number] [place] [address] Mar, [facility] [id number] [place] [address] Mar, [facility] [id number] [place] [address] Mar, Anticoagulant long-term use Z79.01 [facility] [address] [address] Feb, [facility] [id number] [place] [address] Feb, [facility] [address] [address] Feb, Anticoagulant long-term use Z79.01 [facility] [id number] [place] [address] Feb, Anticoagulant long-term use Z79.01 [facility] [id number] [place] [address] Jan, [facility] [id number] [place] [address] Jan, Anticoagulant long-term use Z79.01 [facility] [id number] [place] [address] Jan, Anticoagulant long-term use Z79.01 [facility] [id number] [place] [address] Dec, Anticoagulant long-term use Z79.01 [facility] [id number] [place] [address] Dec, Anticoagulant long-term use Z79.01 [facility] [id number] [place] [address] Dec, Anticoagulant long-term use Z79.[address] Mood [address]39 [facility] [id number] [place] [address] Dec, [facility] [id number] [place] [address] Nov, [facility] [id number] [place] [address] Nov, Anticoagulant long-term use Z79.01 [facility] [id number] [place] [address] Nov, Anticoagulant long-term use Z79.01 [place] [id number] [place] [address] September, Anticoagulant long-term use Z79.01 [place] [id number] [place] [address] Jul, Anticoagulant long-term use Z79.01 [place] [id number] [place] [address] May, Anticoagulant long-term use Z79.01 [place] [id number] [place] [address] May, Anticoagulant long-term use Z79.01 [place] [id number] [place] [address] May, Anticoagulant long-term use Z79.01 [place] [id number] [place] [address] May, Anticoagulant long-term use Z79.01 [place] [id number] [place] [address] May, [place] [address] [address] May, Congestive heart failure, unspecified congestive heart failure chronicity, unspecified congestive heart failure type I50.9 and Pulmonary congestion R09.89 [facility] [place] [id number] [place] [address] Apr, Cough R05 ; Congestive heart failure, unspecified congestive heart failure chronicity, unspecified congestive heart failure type I50.9 and Pulmonary congestion R09.89 [place] [address] [address] Mar, Hematuria R31.9 [place] [address] [address] Mar, [place] [address] [address] Mar, Anticoagulant long-term use Z79.01 [place] [address] [address] Mar, [place] [address] [address] Mar, Hematuria R31.9 and Infective urethritis N34.2 [place] [address] [address] Mar, Anticoagulant long-term use Z79.01 [place] [address] [address] Mar, Anticoagulant long-term use Z79.01 [place] [id number] [place] [address] Mar, [facility] [place] [id number] [place] [address] Mar, Anticoagulant long-term use Z79.01 [facility] [place] [id number] [place] [address] Feb, Peristomal skin breakdown L98.499 [place] [address] [address] Feb, [place] [address] [address] Feb, UTI (urinary tract infection) N39.0 [facility] [place] [address] [address] Jan, [facility] [address], [place] [address] Dec, High risk medication use V58.69 [facility] [address], [place] [address] Nov, High risk medication use V58.69 [facility] [id number] [place] [address] Nov, [facility] [id number] [address] Nov, UTI (lower urinary tract infection) 599.0 ; URI, acute 465.9 ; Insomnia 780.52 ; Anxiety 300.00 and Lower limb amputation, unspecified level V49.70 [facility] [address], [place] [address] Oct, UTI (lower urinary tract infection) 599.0 ; URI, acute 465.9 ; Insomnia 780.52 ; Anxiety 300.00 and Lower limb amputation, unspecified level V49.70 [facility] [address] [address] Aug, [facility] [address], [place] [address] Aug, [facility] [address], [place] [address] Jul, [facility] [id number], [place] [address] Jul, [facility] [address], [place] [address] Jun, [facility] [address], [place] [address] Jun, [facility] [id number], [place] [address] Mar, [facility] [place] [facility] [address] [id number] [place] [address] Mar, [facility] [place] [facility] [address] [id number] [place] [address] Mar, [facility] [place] [facility] [address] [id number] [place] [address] Mar, [facility] [place] [facility] [address] [id number] [place] [address] Mar, [facility] [place] [facility] [address] [id number] [place] [address] Feb, [facility] [place] [facility] [address] [id number] [place] [address] Feb, [facility] [place] [facility] [address] [id number] [place] [address] Feb, [facility] [place] [facility] [address] [id number] [place] [address] Feb, [facility] [place] [facility] [address] [id number] [place] [address] Feb, [facility] [place] [facility] [address] [id number] [place] [address] Feb, [facility] [place] [facility] [address] [id number] [place] [address] Feb, [facility] [place] [facility] [address] [id number] [address] Feb, [facility] [place] [facility] [address] [id number] [place] [address] Feb, [facility] [place] [facility] [address] [id number] [place] [address] Feb, [facility] [place] [facility] [address] [id number] [place] [address] Feb, [facility] [place] [facility] [address] [id number] [place] [address] Feb, [facility] [place] [facility] [address] [id number] [place] [address] Feb, [facility] [place] [facility] [address] [id number] [place] [address] Feb, [facility] [place] [facility] [address] [id number] [place] [address] Feb, [facility] [place] [facility] [address] [id number] [place] [address] Feb, [facility] [place] [facility] [address] [id number] [place] [address] Jan, [facility] [place] [facility] [address] [id number] [place] [address] Jan, [facility] [place] [facility] [address] [id number] [place] [address] Jan, 2013 [facility] [place] [facility] [address] [id number] [place] [address] Jan, [facility] [place] [facility] [address] [id number] [place] [address] Jan, [facility] [place] [facility] [address] [id number] [place] [address] Nov, [facility] [place] [facility] [address] [id number] [place] [address] Nov, 2013 [facility] [place] [facility] [address] [id number] [place] [address] Nov, [facility] [place] [facility] [address] [id number] [place] [address] Nov, [facility] [place] [facility] [address] [id number] [place] [address] Nov, [facility] [place] [facility] [address] [id number] [place] [address] Nov, [facility] [place] [facility] [address] [id number] [place] [address] Oct, [facility] [place] [facility] [address] [id number] [place] [address] Oct, [facility] [place] [facility] [address] [id number] [place] [address] Oct, [facility] [place] [facility] [address] [id number] [place] [address] Oct, [facility] [place] [facility] [address] [id number] [place] [address] Oct, [facility] [place] [facility] [address] [id number] [place] [address] Oct, [facility] [place] [facility] [address] [id number] [place] [address] Oct, [facility] [place] [facility] [address] [id number] [place] [address] September, [facility] [place] [facility] [address] [id number] [place] [address] September, [facility] [place] [facility] [address] [id number] [place] [address] September, [facility] [place] [facility] [address] [id number] [place] [address] September, [facility] [place] [facility] [address] [id number] [place] [address] September, [facility] [place] [facility] [address] [id number] [place] [address] September, [facility] [place] [facility] [address] [id number] [place] [address] September, [facility] [place] [facility] [address] [id number] [place] [address] September, [facility] [place] [facility] [address] [id number] [place] [address] Aug, [facility] [place] [facility] [address] [id number] [place] [address] Aug, [facility] [place] [facility] [address] [id number] [place] [address] Aug, [facility] [place] [facility] [address] [id number] [place] [address] Aug, [facility] [place] [facility] [address] [id number] [place] [address] Jul, [facility] [place] [facility] [address] [id number] [place] [address] Jul, [facility] [place] [facility] [address] [id number] [place] [address] Jun, [facility] [place] [facility] [address] [id number] [place] [address] Jun, [facility] [place] [facility] [address] [id number] [place] [address] Jun, [facility] [place] [facility] [address] [id number] [place] [address] Jun, [facility] [place] [facility] [address] [id number] [place] [address] Jun, [facility] [place] [facility] [address] [id number] [place] [address] Jun, [facility] [place] [facility] [address] [id number] [place] [address] May, [facility] [place] [facility] [address] [id number] [place] [address] May, [facility] [place] [facility] [address] [id number] [place] [address] May, [facility] [place] [facility] [address] [facility] [id number] [place] [address] May, [facility] [place] [facility] [address] [id number] [place] [address] May, [facility] [place] [facility] [address] [id number] [place] [address] May, [facility] [place] [facility] [address] [id number] [place] [address] Feb, [facility] [place] [facility] [address] [id number] [place] [address] Feb, [facility] [place] [facility] [address] [id number] [place] [address] Feb, [facility] [place] [facility] [address] [id number] [place] [address] Feb, [facility] [place] [facility] [address] [id number] [place] [address] Jan, [facility] [place] [facility] [address] [id number] [place] [address] Jan, [facility] [place] [facility] [address] [id number] [place] [address] Jan, [facility] [place] [facility] [address] [id number] [place] [address] Dec, [facility] [place] [facility] [address] [id number] [place] [address] Nov, [facility] [place] [facility] [address] [id number] [place] [address] Nov, [facility] [place] [facility] [address] [id number] [place] [address] Nov, [facility] [place] [facility] [address] [id number] [place] [address] Nov, [facility] [place] [facility] [address] [id number] [place] [address] Nov, [facility] [place] [facility] [address] [id number] [place] [address] Oct, [facility] [address] [id number] [place] [address] September, [facility] [place] [facility] [address] [id number] [place] [address] September, [facility] [place] [facility] [address] [id number] [place] [address] Aug, [facility] [place] [facility] [address] [id number] [place] [address] Aug, [facility] [place] [facility] [address] [id number] [place] [address] Jul, [facility] [place] [facility] [address] [id number] [place] [address] Jul, [facility] [place] [facility] [address] [id number] [place] [address] Jul, [facility] [place] [facility] [address] [id number] [place] [address] Jul, [facility] [place] [facility] [address] [id number] [place] [address] Jun, [facility] [place] [facility] [address] [id number] [place] [address] Jun, [facility] [place] [facility] [address] [id number] [place] [address] Jun, [facility] [place] [facility] [address] [id number], [place] [address] May, [facility] [place] [facility] [address] [id number] [place] [address] May, [facility] [place] [facility] [address] [id number] [place] [address] May, [facility] [place] [facility] [address] [id number] [place] [address] May, [facility] [place] [facility] [address] [id number] [place] [address] Apr, [facility] [address] [id number] [place] [address] Apr, [facility] [place] [facility] [address] [id number] [place] [address] Apr, [facility] [address] [id number] [place] [address] Apr, [facility] [place] [facility] [address] [id number] [place] [address] Apr, [facility] [place] [facility] [address] [id number] [place] [address] Apr, [facility] [place] [facility] [address] [id number] [place] [address] Mar, [facility] [place] [facility] [address] [facility] [id number] [place] [address] Mar, [facility] [place] [facility] [address] [id number] [place] [address] Mar, [facility] [place] [facility] [address] [id number] [place] [address] Mar, [facility] [place] [facility] [address] [facility] [id number] [place] [address] Mar, [facility] [place] [facility] [address] [id number] [place] [address] Mar, [facility] [place] [facility] [address] [id number] [place] [address] Feb, [facility] [place] [facility] [address] [id number] [place] [address] Feb, [facility] [place] [facility] [address] [facility] [id number] [place] [address] Feb, [facility] [place] [facility] [address] [facility] [id number] [place] [address] Feb, [facility] [place] [facility] [address] [id number] [place] [address] Jan, [facility] [place] [facility] [address] [id number] [place] [address] Jan, [facility] [place] [facility] [address] [id number] [place] [address] Jan, [facility] [place] [facility] [address] [id number] [place] [address] Jan, [facility] [place] [facility] [address] [id number] [place] [address] Dec, [facility] [place] [facility] [address] [id number] [place] [address] Dec, [facility] [place] [facility] [address] [id number] [place] [address] Nov, [facility] [place] [facility] [address] [id number] [place] [address] Oct, [facility] [place] [facility] [address] [id number] [place] [address] Oct, [facility] [place] [facility] [address] [id number] [place] [address] Oct, [facility] [place] [facility] [address] [id number] [place] [address] September, [facility] [place] [facility] [address] [id number] [place] [address] September, [facility] [place] [facility] [address] [id number] [place] [address] September, [facility] [place] [facility] [address] [id number] [place] [address] September, [facility] [place] [facility] [address] [id number] [place] [address] September, [facility] [place] [facility] [address] [id number], [place] [address] September, [facility] [place] [facility] [address] [id number] [place] [address] September, [facility] [place] [facility] [address] [id number] [place] [address] Jul, [facility] [place] [facility] [address] [id number] [place] [address] Jul, [facility] [place] [facility] [address] [id number] [place] [address] Jun, [facility] [place] [facility] [address] [id number] [place] [address] Jun, [facility] [place] [facility] [address] [facility] [id number] [place] [address] Jun, [facility] [address] [facility] [id number] [place] [address] May, [facility] [place] [facility] [address] [id number] [place] [address] Mar, [facility] [place] [facility] [address] [facility] [id number] [place] [address] Mar, [facility] [place] [facility] [address] [facility] [id number] [place] [address] Mar, [facility] [place] [facility] [address] [facility] [id number] [place] [address] 31 Feb, 2011 [facility] [place] [facility] [address] [id number], [place] [address] Feb, [facility] [place] [facility] [address] [id number] [place] [address] Dec, [facility] [place] [facility] [address] [facility] [id number] [place] [address] 15 May, 2009 [facility] [place] [facility] [address] [facility] [id number], [place] [address] Apr, [facility] [place] [facility] [address] [facility] [id number], [place] [address] Apr, [facility] [address] [facility] [id number][place] [address] Apr, [facility] [address] [facility] [id number], [place] [address] Apr, [facility] [address] [facility] [id number], [place] [address] 30 Feb, 2009 [facility] [address] [facility] [id number], [place] [address] Oct, IMMUNIZATIONS No Known Immunizations SOCIAL HISTORY Never Assessed REASON FOR VISIT EMR[place] [place] PLAN OF CARE VITAL SIGNS MEDICATIONS [...] 5th toe removal 06/25/2009 Hospitalization History pneumonia, hypoxia[facility] 11/03/16
--- OUTSIDE RECORDS SUMMARY | 2018-12-05 11:41 | XMS REPORT ---
Author Author ERIK SAMAYOA [facility] Address [address] [place] [address] Care Team Providers Care Child And Family Therapist Name Role Phone ERIK SAMAYOA Unavailable PROBLEMS Type Condition ICD9-CM Code [id number] Code Onset Dates Condition Status SNOMED Code Problem Mood disorder F39 Active 60471848 Problem PVD (peripheral vascular disease) I73.9 Active 571339771 Problem Amput leg, unil NOS-comp S88.919A Active 56134723 Problem Acute cystitis with hematuria N30.01 Active 37157630 Problem Major depressive disorder, single episode, unspecified F32.9 Active 10448844 Problem Anticoagulant long-term use Z79.01 Active 001368240 Problem Vitamin B12 deficiency E53.8 Dec, Active 814848280 Problem Chronic obstructive pulmonary disease, unspecified COPD type J44.9 Active 01401045 Problem Congestive heart failure, unspecified congestive heart failure chronicity, unspecified congestive heart failure type I50.9 Active 63886125 Problem Chronic fatigue, unspecified R53.82 Active 261917425 Problem Peripheral vascular disease I73.9 Active 916614258 Problem Chronic fatigue R53.82 Active 19399040 ALLERGIES No Information ENCOUNTERS Encounter Location Date Diagnosis [facility] [id number], [place] [address] Mar, Chronic fatigue R53.82 [facility] [id number] [address] Mar, Anticoagulant long-term use Z79.01 [facility] [id number] [address] Feb, [facility] [id number] [address] Feb, Vitamin B12 deficiency E53.8 [facility] [id number] [place] [address] Feb, Vitamin B12 deficiency E53.8 [facility] [id number] [place] [address] Feb, Vitamin B12 deficiency E53.8 and Anticoagulant long-term use Z79.01 [facility] [id number] [place] [address] Jan, Anticoagulant long-term use Z79.01 [facility] [id number] [place] [address] Jan, Vitamin B12 deficiency E53.8 [facility] [id number] [place] [address] Jan, Anticoagulant long-term use Z79.01 [place] [id number] [place] [address] Jan, Major depressive disorder, single episode, unspecified F32.9 [facility] [id number] [place] [address] Jan, [facility] [id number] [place] [address] Jan, Anticoagulant long-term use Z79.01 [facility] [id number] [place] [address] Dec, Anticoagulant long-term use Z79.01 [facility] [id number] [place] [address] Dec, Vitamin B12 deficiency E53.8 [facility] [id number] [place] [address] Dec, Major depressive disorder, single episode, unspecified F32.9 [facility] [id number] [place] [address] Nov, Vitamin B 12 deficiency E53.8 [facility] [id number] [place] [address] Nov, Anticoagulant long-term use Z79.01 ; Mood disorder F39 ; Chronic obstructive pulmonary disease, unspecified COPD type J44.9 ; Peripheral vascular disease I73.9 and Chronic fatigue R53.82 [address] [address] [address], [place] [address] Nov, Mood disorder F39 [facility] [id number] [place] [address] Nov, [facility] [id number] [place] [address] Oct, Mood disorder F39 ; Chronic obstructive pulmonary disease, unspecified COPD type J44.9 ; Peripheral vascular disease I73.9 and Chronic fatigue R53.82 [place] [place] [id number] [place] [address] September, Anticoagulant long-term use Z79.01 and Congestive heart failure, unspecified congestive heart failure chronicity, unspecified congestive heart failure type I50.9 [place] [id number] [place] [address] September, Vitamin B12 deficiency E53.8 [facility] [id number] [place] [address] September, Anticoagulant long-term use Z79.01 [place] [address], [place] [address] September, Anticoagulant long-term use Z79.01 and Congestive heart failure, unspecified congestive heart failure chronicity, unspecified congestive heart failure type I50.9 [place] [id number] [place] [address] Aug, Chronic fatigue, unspecified R53.82 [place] [id number] [place] [address] Aug, Anticoagulant long-term use Z79.01 [facility] [place] [id number] [place] [address] Aug, Nausea R11.0 and Weakness R53.1 [facility] [id number] [place] [address] Aug, [facility] [address] [address] Aug, Hematuria R31.9 and Acute cystitis with hematuria N30.01 [place] [address] [address] Aug, [place] [address] [address] Jul, Vitamin B 12 deficiency E53.8 [place] [address] [address] Jul, Anticoagulant long-term use Z79.01 [place] [address] [address] Jun, Chronic fatigue, unspecified R53.82 [place] [id number] [place] [address] Jun, Anticoagulant long-term use Z79.01 [facility] [id number] [place] [address] May, Flu-like symptoms R68.89 and Influenza A J10.1 [place] [address] [address] May, [facility] [id number] [place] [address] May, Chronic fatigue, unspecified R53.82 [place] [address] [address] May, Anticoagulant long-term use Z79.01 [place] [place] [id number] [place] [address] Apr, Medicare welcome exam Z00.00 ; Anticoagulant long-term use Z79.01 ; Medicare annual wellness visit, initial Z00.00 ; Medicare annual wellness visit, subsequent Z00.00 and Chronic fatigue, unspecified R53.82 [place] [id number] [place] [address] Mar, Chronic fatigue, unspecified R53.82 [place] [place] [id number] [place] [address] Mar, Anticoagulant long-term use Z79.01 [place] [id number] [place] [address] Mar, Anticoagulant long-term use Z79.01 and Hematuria R31.9 [facility] [id number] [place] [address] Mar, Hematuria R31.9 [place] [place] [id number] [place] [address] Feb, Anticoagulant long-term use Z79.01 [place] [id number] [place] [address] Feb, Anticoagulant long-term use Z79.01 [place] [id number] [place] [address] Feb, Anticoagulant long-term use Z79.01 [place] [id number] [place] [address] Feb, Chronic fatigue, unspecified R53.82 [place] [id number] [place] [address] Feb, Anticoagulant long-term use Z79.01 [place] [id number] [place] [address] Feb, Congestive heart failure, unspecified congestive heart failure chronicity, unspecified congestive heart failure type I50.9 [facility] [id number] [place] [address] Feb, Congestive heart failure, unspecified congestive heart failure chronicity, unspecified congestive heart failure type I50.9 [facility] [id number] [place] [address] Feb, [facility] [id number] [place] [address] Jan, Anticoagulant long-term use Z79.01 [facility] [id number] [place] [address] Jan, [facility] [id number] [place] [address] Jan, Anticoagulant long-term use Z79.01 and Hematuria R31.9 [place] [id number] [place] [address] Jan, Anticoagulant long-term use Z79.01 [place] [id number] [place] [address] Jan, Chronic fatigue, unspecified R53.82 [place] [id number] [place] [address] Jan, Anticoagulant long-term use Z79.01 [facility] [id number] [place] [address] Dec, Chronic fatigue, unspecified R53.82 [place] [id number] [place] [address] Dec, [place] [id number] [place] [address] Dec, Chronic fatigue, unspecified R53.82 and Encounter for therapeutic drug level monitoring Z51.81 [place] [id number] [place] [address] Nov, Encounter for therapeutic drug level monitoring Z51.81 [place] [id number] [place] [address] Nov, Hematuria R31.9 [facility] [id number] [place] [address] Nov, Hematuria R31.9 ; Anticoagulant long-term use Z79.01 and PVD (peripheral vascular disease) I73.9 [facility] [id number] [place] [address] Nov, Anticoagulant long-term use Z79.01 [facility] [id number] [place] [address] Nov, Anticoagulant long-term use Z79.01 [facility] [id number] [place] [address] Nov, [facility] [id number] [place] [address] Nov, Hematuria R31.9 and Acute cystitis with hematuria N30.01 [facility] [address] [id number] Oct, [facility] [id number] [place] [address] Oct, [facility] [id number] [place] [address] Oct, Hematuria R31.9 [facility] [id number] [place] [address] Oct, Hematuria R31.9 [facility] [id number] [place] [address] Oct, Anticoagulant long-term use Z79.01 [facility] [id number] [place] [address] Oct, Anticoagulant long-term use Z79.01 [facility] [id number] [place] [address] Oct, [facility] [id number] [place] [address] September, PVD (peripheral vascular disease) I73.9 ; Amput leg, unil NOS-comp S88.919A ; Acute cystitis without hematuria N30.00 ; Anticoagulant long-term use Z79.01 and Hypokalemia E87.6 [place] [id number] [place] [address] Aug, Anticoagulant long-term use Z79.01 and Bronchitis J40 [place] [address] [address] Jul, [place] [address] [address] Jul, Anticoagulant long-term use Z79.01 and Mood disorder F39 [place] [address] [address] Jul, [place] [address] [address] May, [place] [address] [address] May, Hypokalemia E87.6 [place] [address] [address] May, Mood disorder F39 [place] [address] [address] May, Anticoagulant long-term use Z79.01 [place] [id number] [place] [address] Apr, Anticoagulant long-term use Z79.01 [place] [address] [address] Apr, Anticoagulant long-term use Z79.01 [place] [id number] [place] [address] Apr, [place] [address] [address] Apr, Anticoagulant long-term use Z79.01 [facility] [address] [place] [address] Apr, Anticoagulant long-term use Z79.01 [facility] [id number] [place] [address] Apr, Anticoagulant long-term use Z79.01 [facility] [id number] [place] [address] Mar, [facility] [id number] [place] [address] Mar, [facility] [id number] [place] [address] Mar, Anticoagulant long-term use Z79.01 [facility] [id number] [place] [address] Feb, [facility] [id number] [place] [address] Feb, [facility] [id number] [place] [address] Feb, Anticoagulant long-term use Z79.01 [facility] [address] [place] [address] Feb, Anticoagulant long-term use Z79.01 [facility] [id number] [place] [address] Jan, [facility] [id number] [place] [address] Jan, Anticoagulant long-term use Z79.01 [facility] [id number] [place] [address] Jan, Anticoagulant long-term use Z79.01 [facility] [address] [place] [address] Dec, Anticoagulant long-term use Z79.01 [facility] [id number] [place] [address] Dec, Anticoagulant long-term use Z79.01 [facility] [id number] [place] [address] Dec, Anticoagulant long-term use Z79.01 and Mood disorder F39 [facility] [address] [address] Dec, [facility] [id number] [place] [address] Nov, [place] [address] [address] Nov, Anticoagulant long-term use Z79.01 [place] [id number] [place] [address] Nov, Anticoagulant long-term use Z79.01 [place] [id number] [place] [address] September, Anticoagulant long-term use Z79.01 [place] [address] [address] Jul, Anticoagulant long-term use Z79.01 [place] [id number] [place] [address] May, Anticoagulant long-term use Z79.01 [place] [id number] [place] [address] May, Anticoagulant long-term use Z79.01 [place] [id number] [place] [address] May, Anticoagulant long-term use Z79.01 [facility] [id number] [place] [address] May, Anticoagulant long-term use Z79.01 [place] [address] [address] May, [facility] [id number] [place] [address] May, Congestive heart failure, unspecified congestive heart failure chronicity, unspecified congestive heart failure type I50.9 and Pulmonary congestion R09.89 [facility] [id number] [place] [address] Apr, Cough R05 ; Congestive heart failure, unspecified congestive heart failure chronicity, unspecified congestive heart failure type I50.9 and Pulmonary congestion R09.89 [place] [id number] [place] [address] Mar, Hematuria R31.9 [place] [id number] [place] [address] Mar, [place] [id number] [place] [address] Mar, Anticoagulant long-term use Z79.01 [place] [id number] [place] [address] Mar, [place] [id number] [place] [address] Mar, Hematuria R31.9 and Infective urethritis N34.2 [place] [id number] [place] [address] Mar, Anticoagulant long-term use Z79.01 [place] [id number] [place] [address] Mar, Anticoagulant long-term use Z79.01 [place] [id number] [place] [address] Mar, [place] [id number] [place] [address] Mar, Anticoagulant long-term use Z79.01 [place] [id number] [place] [address] Feb, Peristomal skin breakdown L98.499 [facility] [address], [place] [address] Feb, [facility] [address], [place] [address] Feb, UTI (urinary tract infection) N39.0 [facility] [address] [address] Jan, [facility] [id number], [place] [address] Dec, High risk medication use V58.69 [facility] [address], [place] [address] Nov, High risk medication use V58.69 [facility] [address], [place] [address] Nov, [facility] [id number] [address] Nov, UTI (lower urinary tract infection) 599.0 ; URI, acute 465.9 ; Insomnia 780.52 ; Anxiety 300.00 and Lower limb amputation, unspecified level V49.70 [facility] [id number] [address] Oct, UTI (lower urinary tract infection) 599.0 ; URI, acute 465.9 ; Insomnia 780.52 ; Anxiety 300.00 and Lower limb amputation, unspecified level V49.70 [facility] [id number] [address] Aug, [facility] [id number] [address] Aug, [facility] [id number] [address] Jul, [facility] [id number] [address] Jul, [facility] [place] [facility] [address] [id number] [place] [address] Jun, [facility] [place] [facility] [address] [id number] [place] [address] Jun, [facility] [place] [facility] [address] [facility] [id number] [place] [address] Mar, [facility] [place] [facility] [address] [id number] [place] [address] Mar, [facility] [place] [facility] [address] [facility] [id number] [place] [address] Mar, [facility] [place] [facility] [address] [facility] [id number] [place] [address] Mar, [facility] [place] [facility] [address] [facility] [id number], [place] [address] Mar, [facility] [place] [facility] [address] [facility] [id number], [place] [address] Feb, [facility] [place] [facility] [address] [facility] [id number] [place] [address] 30 Feb, 2014 [facility] [place] [facility] [address] [facility] [id number], [place] [address] 29 Feb, 2014 [facility] [place] [facility] [address] [facility] [id number], [place] [address] Feb, [facility] [place] [facility] [address] [facility] [id number], [place] [address] 27 Feb, 2014 [facility] [place] [facility] [address] [facility] [id number], [place] [address] 16 Feb, 2014 [facility] [place] [facility] [address] [facility] [id number], [place] [address] 16 Feb, 2014 [facility] [place] [facility] [address] [facility] [id number], [place] [address] 13 Feb, 2014 [facility] [place] [facility] [address] [id number] [place] [address] Feb, [facility] [place] [facility] [address] [id number] [place] [address] Feb, [facility] [place] [facility] [address] [id number] [place] [address] Feb, [facility] [place] [facility] [address] [id number] [place] [address] Feb, [facility] [place] [facility] [address] [id number] [place] [address] Feb, [facility] [place] [facility] [address] [id number] [place] [address] Feb, [facility] [place] [facility] [address] [id number] [place] [address] Feb, [facility] [place] [facility] [address] [id number] [place] [address] Feb, [facility] [place] [facility] [address] [id number] [place] [address] 28 Jan, 2014 [facility] [place] [facility] [address] [id number] [place] [address] Jan, [facility] [place] [facility] [address] [id number] [place] [address] Jan, [facility] [place] [facility] [address] [id number] [place] [address] Jan, [facility] [place] [facility] [address] [id number] [place] [address] Jan, [facility] [place] [facility] [address] [id number] [place] [address] Nov, [facility] [place] [facility] [address] [id number] [place] [address] Nov, [facility] [place] [facility] [address] [id number] [place] [address] Nov, [facility] [place] [facility] [address] [id number] [place] [address] Nov, [facility] [place] [facility] [address] [id number] [place] [address] Nov, [facility] [place] [facility] [address] [id number] [place] [address] Nov, [facility] [place] [facility] [address] [id number] [place] [address] Oct, [facility] [place] [facility] [address] [id number] [place] [address] Oct, [facility] [place] [facility] [address] [id number] [place] [address] Oct, [facility] [place] [facility] [address] [id number] [place] [address] Oct, [facility] [place] [facility] [address] [id number] [place] [address] Oct, [facility] [place] [facility] [address] [id number] [place] [address] Oct, [facility] [place] [facility] [address] [id number] [place] [address] Oct, [facility] [place] [facility] [address] [id number] [place] [address] September, [facility] [place] [facility] [address] [id number] [place] [address] September, [facility] [place] [facility] [address] [id number] [place] [address] September, [facility] [place] [facility] [address] [id number] [place] [address] September, [facility] [place] [facility] [address] [id number] [place] [address] September, [facility] [place] [facility] [address] [id number] [place] [address] September, [facility] [place] [facility] [address] [id number] [place] [address] September, [facility] [place] [facility] [address] [id number] [place] [address] September, [facility] [place] [facility] [address] [id number] [place] [address] Aug, [facility] [place] [facility] [address] [id number] [place] [address] Aug, [facility] [place] [facility] [address] [id number] [place] [address] Aug, [facility] [place] [facility] [address] [id number] [place] [address] Aug, [facility] [place] [facility] [address] [id number] [place] [address] Jul, [facility] [place] [facility] [address] [id number] [place] [address] Jul, [facility] [place] [facility] [address] [id number] [place] [address] Jun, [facility] [place] [facility] [address] [id number] [place] [address] Jun, [facility] [place] [facility] [address] [id number] [place] [address] Jun, [facility] [place] [facility] [address] [id number] [place] [address] Jun, [facility] [place] [facility] [address] [id number] [place] [address] Jun, [facility] [place] [facility] [address] [id number] [place] [address] Jun, [facility] [place] [facility] [address] [id number] [place] [address] May, [facility] [place] [facility] [address] [id number] [place] [address] May, [facility] [place] [facility] [address] [id number] [place] [address] May, [facility] [place] [facility] [address] [id number] [place] [address] May, [facility] [place] [facility] [address] [id number] [place] [address] May, [facility] [place] [facility] [address] [id number] [place] [address] May, [facility] [place] [facility] [address] [id number] [place] [address] Feb, [facility] [place] [facility] [address] [id number] [place] [address] Feb, [facility] [place] [facility] [address] [id number] [place] [address] Feb, [facility] [place] [facility] [address] [id number] [place] [address] Feb, [facility] [place] [facility] [address] [id number] [address] Jan, [facility] [place] [facility] [address] [id number], [place] [address] Jan, [facility] [place] [facility] [address] [id number], [place] [address] Jan, [facility] [place] [facility] [address] [id number] [place] [address] Dec, [facility] [place] [facility] [address] [id number] [place] [address] Nov, [facility] [place] [facility] [address] [id number] [place] [address] Nov, [facility] [place] [facility] [address] [id number] [place] [address] 15 Nov, 2012 [facility] [address] [id number] [place] [address] Nov, [facility] [address] [id number] [place] [address] Nov, [facility] [address] [id number] [place] [address] Oct, [facility] [place] [facility] [address] [id number] [place] [address] September, [facility] [address] [id number] [place] [address] September, [facility] [place] [facility] [address] [id number] [place] [address] Aug, [facility] [address] [id number] [place] [address] Aug, [facility] [address] [id number] [place] [address] Jul, [facility] [address] [id number] [place] [address] Jul, [facility] [place] [facility] [address] [id number] [place] [address] Jul, [facility] [place] [facility] [address] [id number] [place] [address] Jul, [facility] [place] [facility] [address] [id number] [place] [address] Jun, [facility] [place] [facility] [address] [id number] [place] [address] Jun, [facility] [place] [facility] [address] [id number] [place] [address] Jun, [facility] [place] [facility] [address] [id number] [place] [address] May, [facility] [place] [facility] [address] [id number] [place] [address] May, [facility] [address] [id number] [place] [address] May, [facility] [address] [id number] [place] [address] May, [facility] [address] [id number] [place] [address] Apr, [facility] [address] [id number] [place] [address] Apr, [facility] [address] [id number] [place] [address] Apr, [facility] [address] [id number] [place] [address] Apr, [facility] [address] [id number] [place] [address] Apr, [facility] [address] [id number] [place] [address] Apr, [facility] [address] [id number] [place] [address] Mar, [facility] [address] [id number] [place] [address] Mar, [facility] [address] [id number], [place] [address] Mar, [facility] [place] [facility] [address] [id number] [place] [address] Mar, [facility] [place] [facility] [address] [id number] [place] [address] Mar, [facility] [place] [facility] [address] [id number] [place] [address] Mar, [facility] [place] [facility] [address] [id number] [place] [address] Feb, [facility] [place] [facility] [address] [id number] [place] [address] Feb, [facility] [place] [facility] [address] [id number] [place] [address] Feb, [facility] [place] [facility] [address] [id number] [place] [address] Feb, [facility] [place] [facility] [address] [id number] [place] [address] Jan, [facility] [place] [facility] [address] [id number] [place] [address] Jan, [facility] [place] [facility] [address] [id number] [place] [address] Jan, [facility] [place] [facility] [address] [id number] [place] [address] Jan, [facility] [place] [facility] [address] [id number] [place] [address] Dec, [facility] [place] [facility] [address] [id number] [place] [address] Dec, [facility] [place] [facility] [address] [id number] [place] [address] Nov, [facility] [place] [facility] [address] [id number] [place] [address] Oct, [facility] [place] [facility] [address] [id number] [place] [address] Oct, [facility] [place] [facility] [address] [id number] [place] [address] Oct, [facility] [place] [facility] [address] [id number] [place] [address] September, [facility] [place] [facility] [address] [id number] [place] [address] September, [facility] [place] [facility] [address] [id number] [place] [address] September, [facility] [address] [id number] [place] [address] September, [facility] [place] [facility] [address] [id number] [place] [address] September, [facility] [place] [facility] [address] [id number] [place] [address] September, [facility] [place] [facility] [address] [id number] [place] [address] September, [facility] [place] [facility] [address] [id number] [place] [address] Jul, [facility] [place] [facility] [address] [id number] [place] [address] Jul, [facility] [place] [facility] [address] [id number] [place] [address] Jun, [facility] [place] [facility] [address] [id number] [place] [address] Jun, [facility] [place] [facility] [address] [id number] [place] [address] Jun, [facility] [place] [facility] [address] [id number] [place] [address] May, [facility] [place] [facility] [address] [id number] [place] [address] Mar, [facility] [place] [facility] [address] [id number] [place] [address] Mar, [facility] [place] [facility] [address] [id number] [place] [address] 14 Mar, 2011 [facility] [place] [facility] [address] [id number] [place] [address] 31 Feb, 2011 [facility] [place] [facility] [address] [id number] [place] [address] Feb, [facility] [address] [id number] [address] Dec, [facility] [id number], [place] [address] May, [facility] [id number], [place] [address] Apr, [facility] [id number], [place] [address] Apr, [facility] [id number], [place] [address] Apr, [facility] [id number] [place] [address] Apr, [facility] [id number], [place] [address] Feb, [facility] [id number], [place] [address] Oct, IMMUNIZATIONS Vaccine Route Administration Date Status B12, VITAMIN (UP TO 1000 MCG) IM Intramuscular Apr 04, 2018 Administered SOCIAL HISTORY Never Assessed REASON FOR VISIT B12 injection CBrumbackRN PLAN OF CARE VITAL SIGNS MEDICATIONS Medication Instructions Dosage Frequency Start Date End Date Duration Status Metoprolol Succinate ER 50 MG TAKE 1 TABLET DAILY Active Montelukast Sodium 10 mg Orally Once a day 1 tablet in the evening 24h Active Amlodipine Besylate 10 MG Orally Once a day 1 tablet 24h Active Lexapro 10 mg Orally Once a day 1 tablet 24h Active Lisinopril 10 MG TAKE 1 TABLET DAILY Active Folic Acid 1 MG Orally Once a day 1 tablet 24h Active Cyanocobalamin 1000 MCG/ML Orally once monthly as directed Jul, Active Vitamin D 2000 UNIT Orally Once a day 1 capsule 24h Active Klor-Con M20 20 meq Orally Once a day 1 tablet with food 24h 30 Active Clopidogrel Bisulfate 75 MG Orally Once a day 1 tablet 24h Active Warfarin Sodium 1 MG Orally Once a day 1 tablet 24h Active Zofran ODT 4 MG Orally 3 times a day 1 tablet 8h Aug, Not-Taking Stool Softener 100 MG Orally Once a day 1 capsule as needed 24h Active Valium 2 MG Orally Once a day 1 tablet as needed 24h 10 Oct, 2014 30 days Active Montelukast Sodium 10 TAKE ONE TABLET BY MOUTH EVERY EVENING 90 Active Flonase 50 MCG/ACT Nasally Once a day 1 spray in each nostril 24h Active Pepcid 20 MG Orally Once a day 1 tablet at bedtime 24h Active Simvastatin 20MG TAKE 2 TABLETS ONCE DAILY Active RESULTS No Results PROCEDURES Procedure Date Ordered Result Body Site B12, VITAMIN (UP TO 1000 MCG) Apr 04, 2018 THER/PROPH/DIAG INJ, SC/IM Apr 04, 2018 INSTRUCTIONS MEDICATIONS ADMINISTERED No Known Medications MEDICAL [...]
--- OUTSIDE RECORDS SUMMARY | 2018-12-05 11:41 | XMS REPORT ---
Author Author ERIK SAMAYOA [facility] Address [address] [place] [address] Care Team Providers Care Maintenance Millwright Name Role Phone ERIK SAMAYOA Unavailable PROBLEMS Type Condition ICD9-CM Code MOZ82-OB Code Onset Dates Condition Status SNOMED Code Problem Mood disorder F39 Active 29413802 Problem PVD (peripheral vascular disease) I73.9 Active 368751186 Problem Amput leg, unil NOS-comp S88.919A Active 54626570 Problem Acute cystitis with hematuria N30.01 Active 56210560 Problem Major depressive disorder, single episode, unspecified F32.9 Active 91260601 Problem Anticoagulant long-term use Z79.01 Active 279996996 Problem Vitamin B12 deficiency E53.8 Dec, Active 992565616 Problem Chronic obstructive pulmonary disease, unspecified COPD type J44.9 Active 40258133 Problem Congestive heart failure, unspecified congestive heart failure chronicity, unspecified congestive heart failure type I50.9 Active 16912687 Problem Chronic fatigue, unspecified R53.82 Active 324711582 Problem Peripheral vascular disease I73.9 Active 352516175 Problem Chronic fatigue R53.82 Active 17862434 ALLERGIES No Information ENCOUNTERS Encounter Location Date Diagnosis [facility] [id number], [place] [address] Mar, Chronic fatigue R53.82 [facility] [id number], [place] [address] Mar, Anticoagulant long-term use Z79.01 [facility] [id number], [place] [address] Feb, [facility] [id number], [place] [address] Feb, Vitamin B12 deficiency E53.8 [facility] [id number] [place] [address] Feb, Vitamin B12 deficiency E53.8 [facility] [id number] [place] [address] Feb, Vitamin B12 deficiency E53.8 and Anticoagulant long-term use Z79.01 [facility] [id number] [place] [address] Jan, Anticoagulant long-term use Z79.01 [facility] [id number] [place] [address] Jan, Vitamin B12 deficiency E53.8 [facility] [id number] [place] [address] Jan, Anticoagulant long-term use Z79.01 [facility] [id number] [place] [address] Jan, Major depressive disorder, single episode, unspecified F32.9 [facility] [id number] [place] [address] Jan, [facility] [id number] [place] [address] Jan, Anticoagulant long-term use Z79.01 [facility] [id number] [place] [address] Dec, Anticoagulant long-term use Z79.01 [facility] [id number] [place] [address] Dec, Vitamin B12 deficiency E53.8 [facility] [id number] [place] [address] Dec, Major depressive disorder, single episode, unspecified F32.9 [facility] [id number] [place] [address] Nov, Vitamin B 12 deficiency E53.8 [facility] [id number] [place] [address] Nov, Anticoagulant long-term use Z79.01 ; Mood disorder F39 ; Chronic obstructive pulmonary disease, unspecified COPD type J44.9 ; Peripheral vascular disease I73.9 and Chronic fatigue R53.82 [facility] [address], [place] [address] Nov, Mood disorder F39 [facility] [id number] [place] [address] Nov, [facility] [id number] [place] [address] Oct, Mood disorder F39 ; Chronic obstructive pulmonary disease, unspecified COPD type J44.9 ; Peripheral vascular disease I73.9 and Chronic fatigue R53.82 [facility] [id number] [place] [address] September, Anticoagulant long-term use Z79.01 and Congestive heart failure, unspecified congestive heart failure chronicity, unspecified congestive heart failure type I50.9 [facility] [id number] [place] [address] September, Vitamin B12 deficiency E53.8 [facility] [id number] [place] [address] September, Anticoagulant long-term use Z79.01 [facility] [address], [place] [address] September, Anticoagulant long-term use Z79.01 and Congestive heart failure, unspecified congestive heart failure chronicity, unspecified congestive heart failure type I50.9 [facility] [address] [place] [address] Aug, Chronic fatigue, unspecified R53.82 [facility] [id number] [place] [address] Aug, Anticoagulant long-term use Z79.01 [facility] [id number] [place] [address] Aug, Nausea R11.0 and Weakness R53.1 [facility] [id number] [place] [address] Aug, [facility] [address] [address] Aug, Hematuria R31.9 and Acute cystitis with hematuria N30.01 [place] [facility] [address] [address] Aug, [facility] [address] [address] Jul, Vitamin B 12 deficiency E53.8 [facility] [facility] [address] [address] Jul, Anticoagulant long-term use Z79.01 [facility] [facility] [address] [address] Jun, Chronic fatigue, unspecified R53.82 [facility] [id number] [place] [address] Jun, Anticoagulant long-term use Z79.01 [facility] [id number] [place] [address] May, Flu-like symptoms R68.89 and Influenza A J10.1 [facility] [address] [address] May, [facility] [id number] [place] [address] May, Chronic fatigue, unspecified R53.82 [facility] [address] [address] May, Anticoagulant long-term use Z79.01 [facility] [id number] [place] [address] Apr, Medicare welcome exam Z00.00 ; Anticoagulant long-term use Z79.01 ; Medicare annual wellness visit, initial Z00.00 ; Medicare annual wellness visit, subsequent Z00.00 and Chronic fatigue, unspecified R53.82 [facility] [address] [place] [address] Mar, Chronic fatigue, unspecified R53.82 [facility] [id number] [place] [address] Mar, Anticoagulant long-term use Z79.01 [facility] [id number] [place] [address] Mar, Anticoagulant long-term use Z79.01 and Hematuria R31.9 [facility] [id number] [place] [address] Mar, Hematuria R31.9 [facility] [id number] [place] [address] Feb, Anticoagulant long-term use Z79.01 [facility] [id number] [place] [address] Feb, Anticoagulant long-term use Z79.01 [facility] [id number] [place] [address] Feb, Anticoagulant long-term use Z79.01 [facility] [address] [place] [address] Feb, Chronic fatigue, unspecified R53.82 [facility] [id number] [place] [address] Feb, Anticoagulant long-term use Z79.01 [facility] [id number] [place] [address] Feb, Congestive heart failure, unspecified congestive heart failure chronicity, unspecified congestive heart failure type I50.9 [facility] [id number] [place] [address] Feb, Congestive heart failure, unspecified congestive heart failure chronicity, unspecified congestive heart failure type I50.9 [facility] [id number] [place] [address] Feb, [facility] [id number] [place] [address] Jan, Anticoagulant long-term use Z79.01 [facility] [id number] [place] [address] Jan, [facility] [id number] [place] [address] Jan, Anticoagulant long-term use Z79.01 and Hematuria R31.9 [facility] [id number] [place] [address] Jan, Anticoagulant long-term use Z79.01 [facility] [id number] [place] [address] Jan, Chronic fatigue, unspecified R53.82 [facility] [id number] [place] [address] Jan, Anticoagulant long-term use Z79.01 [facility] [id number] [place] [address] Dec, Chronic fatigue, unspecified R53.82 [facility] [id number] [place] [address] Dec, [facility] [id number] [place] [address] Dec, Chronic fatigue, unspecified R53.82 and Encounter for therapeutic drug level monitoring Z51.81 [facility] [id number] [place] [address] Nov, Encounter for therapeutic drug level monitoring Z51.81 [facility] [id number] [place] [address] Nov, Hematuria R31.9 [facility] [address] [place] [address] Nov, Hematuria R31.9 ; Anticoagulant long-term use Z79.01 and PVD (peripheral vascular disease) I73.9 [facility] [id number] [place] [address] Nov, Anticoagulant long-term use Z79.01 [facility] [id number] [place] [address] Nov, Anticoagulant long-term use Z79.01 [facility] [id number] [place] [address] Nov, [facility] [id number] [place] [address] Nov, Hematuria R31.9 and Acute cystitis with hematuria N30.01 [facility] [address] [id number] Oct, [facility] [id number] [place] [address] Oct, [facility] [id number] [place] [address] Oct, Hematuria R31.9 [facility] [id number] [place] [address] Oct, Hematuria R31.9 [facility] [id number] [place] [address] Oct, Anticoagulant long-term use Z79.01 [facility] [id number] [place] [address] Oct, Anticoagulant long-term use Z79.01 [facility] [id number] [place] [address] Oct, [facility] [id number] [place] [address] September, PVD (peripheral vascular disease) I73.9 ; Amput leg, unil NOS-comp S88.919A ; Acute cystitis without hematuria N30.00 ; Anticoagulant long-term use Z79.01 and Hypokalemia E87.6 [facility] [id number] [place] [address] Aug, Anticoagulant long-term use Z79.01 and Bronchitis J40 [facility] [address] [address] Jul, [facility] [address] [address] Jul, Anticoagulant long-term use Z79.01 and Mood disorder F39 [facility] [address] [address] Jul, [facility] [address] [address] May, [facility] [address] [address] May, Hypokalemia E87.6 [facility] [facility] [address] [address] May, Mood disorder F39 [facility] [facility] [address] [address] May, Anticoagulant long-term use Z79.01 [facility] [id number] [place] [address] Apr, Anticoagulant long-term use Z79.01 [facility] [address] [address] Apr, Anticoagulant long-term use Z79.01 [facility] [id number] [place] [address] Apr, [facility] [address] [address] Apr, Anticoagulant long-term use Z79.01 [facility] [address] [place] [address] Apr, Anticoagulant long-term use Z79.01 [facility] [id number] [place] [address] Apr, Anticoagulant long-term use Z79.01 [facility] [id number] [place] [address] Mar, [facility] [id number] [place] [address] Mar, [facility] [id number] [place] [address] Mar, Anticoagulant long-term use Z79.01 [facility] [id number] [place] [address] Feb, [facility] [id number] [place] [address] Feb, [facility] [id number] [place] [address] Feb, Anticoagulant long-term use Z79.01 [facility] [address] [place] [address] Feb, Anticoagulant long-term use Z79.01 [facility] [id number] [place] [address] Jan, [facility] [id number] [place] [address] Jan, Anticoagulant long-term use Z79.01 [facility] [id number] [place] [address] Jan, Anticoagulant long-term use Z79.01 [facility] [address] [place] [address] Dec, Anticoagulant long-term use Z79.01 [facility] [id number] [place] [address] Dec, Anticoagulant long-term use Z79.01 [facility] [id number] [place] [address] Dec, Anticoagulant long-term use Z79.01 and Mood disorder F39 [facility] [address] [address] Dec, [facility] [id number] [place] [address] Nov, [facility] [address] [address] Nov, Anticoagulant long-term use Z79.01 [facility] [id number] [place] [address] Nov, Anticoagulant long-term use Z79.01 [facility] [id number] [place] [address] September, Anticoagulant long-term use Z79.01 [facility] [facility] [address] [address] Jul, Anticoagulant long-term use Z79.01 [facility] [address] [place] [address] May, Anticoagulant long-term use Z79.01 [facility] [address] [place] [address] May, Anticoagulant long-term use Z79.01 [facility] [address] [place] [address] May, Anticoagulant long-term use Z79.01 [facility] [id number] [place] [address] May, Anticoagulant long-term use Z79.01 [facility] [facility] [address] [address] May, [facility] [id number] [place] [address] May, Congestive heart failure, unspecified congestive heart failure chronicity, unspecified congestive heart failure type I50.9 and Pulmonary congestion R09.89 [facility] [id number] [place] [address] Apr, Cough R05 ; Congestive heart failure, unspecified congestive heart failure chronicity, unspecified congestive heart failure type I50.9 and Pulmonary congestion R09.89 [facility] [id number] [place] [address] Mar, Hematuria R31.9 [facility] [id number] [place] [address] Mar, [facility] [id number] [place] [address] Mar, Anticoagulant long-term use Z79.01 [facility] [id number] [place] [address] Mar, [facility] [id number] [place] [address] Mar, Hematuria R31.9 and Infective urethritis N34.2 [facility] [id number] [place] [address] Mar, Anticoagulant long-term use Z79.01 [facility] [address] [place] [address] Mar, Anticoagulant long-term use Z79.01 [facility] [id number] [place] [address] Mar, [facility] [id number] [place] [address] Mar, Anticoagulant long-term use Z79.01 [facility] [address] [place] [address] Feb, Peristomal skin breakdown L98.499 [facility] [address], [place] [address] Feb, [facility] [address], [place] [address] Feb, UTI (urinary tract infection) N39.0 [facility] [address], [place] [address] Jan, [facility] [id number], [place] [address] Dec, High risk medication use V58.69 [facility] [address], [place] [address] Nov, High risk medication use V58.69 [facility] [address], [place] [address] Nov, [facility] [id number] [address] Nov, UTI (lower urinary tract infection) 599.0 ; URI, acute 465.9 ; Insomnia 780.52 ; Anxiety 300.00 and Lower limb amputation, unspecified level V49.70 [facility] [id number], [place] [address] Oct, UTI (lower urinary tract infection) 599.0 ; URI, acute 465.9 ; Insomnia 780.52 ; Anxiety 300.00 and Lower limb amputation, unspecified level V49.70 [facility] [id number], [place] [address] Aug, [facility] [id number], [place] [address] Aug, [facility] [id number], [place] [address] Jul, [facility] [id number], [place] [address] Jul, [facility] [place] [facility] [address] [id number] [place] [address] Jun, [facility] [place] [facility] [address] [id number] [place] [address] Jun, [facility] [place] [facility] [address] [facility] [id number] [place] [address] Mar, [facility] [place] [facility] [address] [id number] [place] [address] Mar, [facility] [place] [facility] [address] [facility] [id number] [place] [address] Mar, [facility] [place] [facility] [address] [facility] [id number] [place] [address] Mar, [facility] [place] [facility] [address] [facility] [id number], [place] [address] Mar, [facility] [place] [facility] [address] [facility] [id number], [place] [address] Feb, [facility] [place] [facility] [address] [facility] [id number] [place] [address] 30 Feb, 2014 [facility] [place] [facility] [address] [facility] [id number], [place] [address] 29 Feb, 2014 [facility] [place] [facility] [address] [facility] [id number], [place] [address] Feb, [facility] [place] [facility] [address] [facility] [id number], [place] [address] 27 Feb, 2014 [facility] [place] [facility] [address] [facility] [id number], [place] [address] 16 Feb, 2014 [facility] [place] [facility] [address] [facility] [id number], [place] [address] 16 Feb, 2014 [facility] [place] [facility] [address] [facility] [id number], [place] [address] 13 Feb, 2014 [facility] [place] [facility] [address] [id number] [place] [address] Feb, [facility] [place] [facility] [address] [id number] [place] [address] Feb, [facility] [place] [facility] [address] [id number] [place] [address] Feb, [facility] [place] [facility] [address] [id number] [place] [address] Feb, [facility] [place] [facility] [address] [id number] [place] [address] Feb, [facility] [place] [facility] [address] [id number] [place] [address] Feb, [facility] [place] [facility] [address] [id number] [place] [address] Feb, [facility] [place] [facility] [address] [id number] [place] [address] Feb, [facility] [place] [facility] [address] [id number] [place] [address] 28 Jan, 2014 [facility] [place] [facility] [address] [id number] [place] [address] Jan, [facility] [place] [facility] [address] [id number] [place] [address] Jan, [facility] [place] [facility] [address] [id number] [place] [address] Jan, [facility] [place] [facility] [address] [id number] [place] [address] Jan, [facility] [place] [facility] [address] [id number] [place] [address] Nov, [facility] [place] [facility] [address] [id number] [place] [address] Nov, [facility] [place] [facility] [address] [id number] [place] [address] Nov, [facility] [place] [facility] [address] [id number] [place] [address] Nov, [facility] [place] [facility] [address] [id number] [place] [address] Nov, [facility] [place] [facility] [address] [id number] [place] [address] Nov, [facility] [place] [facility] [address] [id number] [place] [address] Oct, [facility] [place] [facility] [address] [id number] [place] [address] Oct, [facility] [place] [facility] [address] [id number] [place] [address] Oct, [facility] [place] [facility] [address] [id number] [place] [address] Oct, [facility] [place] [facility] [address] [id number] [place] [address] Oct, [facility] [place] [facility] [address] [id number] [place] [address] Oct, [facility] [place] [facility] [address] [id number] [place] [address] Oct, [facility] [place] [facility] [address] [id number] [place] [address] September, [facility] [place] [facility] [address] [id number] [place] [address] September, [facility] [place] [facility] [address] [id number] [place] [address] September, [facility] [place] [facility] [address] [id number] [place] [address] September, [facility] [place] [facility] [address] [id number] [place] [address] September, [facility] [place] [facility] [address] [id number] [place] [address] September, [facility] [place] [facility] [address] [id number] [place] [address] September, [facility] [place] [facility] [address] [id number] [place] [address] September, [facility] [place] [facility] [address] [id number] [place] [address] Aug, [facility] [place] [facility] [address] [id number] [place] [address] Aug, [facility] [place] [facility] [address] [id number] [place] [address] Aug, [facility] [place] [facility] [address] [id number] [place] [address] Aug, [facility] [place] [facility] [address] [id number] [place] [address] Jul, [facility] [place] [facility] [address] [id number] [place] [address] Jul, [facility] [place] [facility] [address] [id number] [place] [address] Jun, [facility] [place] [facility] [address] [id number] [place] [address] Jun, [facility] [place] [facility] [address] [id number] [place] [address] Jun, [facility] [place] [facility] [address] [id number] [place] [address] Jun, [facility] [place] [facility] [address] [id number] [place] [address] Jun, [facility] [place] [facility] [address] [id number] [place] [address] Jun, [facility] [place] [facility] [address] [id number] [place] [address] May, [facility] [place] [facility] [address] [id number] [place] [address] May, [facility] [place] [facility] [address] [id number] [place] [address] May, [facility] [place] [facility] [address] [id number] [place] [address] May, [facility] [place] [facility] [address] [id number] [place] [address] May, [facility] [place] [facility] [address] [id number] [place] [address] May, [facility] [place] [facility] [address] [id number] [place] [address] Feb, [facility] [place] [facility] [address] [id number] [place] [address] Feb, [facility] [place] [facility] [address] [id number] [place] [address] Feb, [facility] [place] [facility] [address] [id number] [place] [address] Feb, [facility] [place] [facility] [address] [id number], [place] [address] Jan, [facility] [place] [facility] [address] [id number], [place] [address] Jan, [facility] [place] [facility] [address] [id number], [place] [address] Jan, [facility] [place] [facility] [address] [id number] [place] [address] Dec, [facility] [place] [facility] [address] [id number] [place] [address] Nov, [facility] [place] [facility] [address] [id number] [place] [address] Nov, [facility] [place] [facility] [address] [id number] [place] [address] 15 Nov, 2012 [facility] [address] [id number] [place] [address] Nov, [facility] [address] [id number] [place] [address] Nov, [facility] [address] [id number] [place] [address] Oct, [facility] [place] [facility] [address] [id number] [place] [address] September, [facility] [address] [id number] [place] [address] September, [facility] [place] [facility] [address] [id number] [place] [address] Aug, [facility] [address] [id number] [place] [address] Aug, [facility] [address] [id number] [place] [address] Jul, [facility] [address] [id number] [place] [address] Jul, [facility] [place] [facility] [address] [id number] [place] [address] Jul, [facility] [place] [facility] [address] [id number] [place] [address] Jul, [facility] [place] [facility] [address] [id number] [place] [address] Jun, [facility] [place] [facility] [address] [id number] [place] [address] Jun, [facility] [place] [facility] [address] [id number] [place] [address] Jun, [facility] [place] [facility] [address] [id number] [place] [address] May, [facility] [place] [facility] [address] [id number] [place] [address] May, [facility] [address] [id number] [place] [address] May, [facility] [address] [id number] [place] [address] May, [facility] [address] [id number] [place] [address] Apr, [facility] [address] [id number] [place] [address] Apr, [facility] [address] [id number] [place] [address] Apr, [facility] [address] [id number] [place] [address] Apr, [facility] [address] [id number] [place] [address] Apr, [facility] [address] [id number] [place] [address] Apr, [facility] [address] [id number] [place] [address] Mar, [facility] [address] [id number] [place] [address] Mar, [facility] [address] [id number], [place] [address] Mar, [facility] [place] [facility] [address] [id number] [place] [address] Mar, [facility] [place] [facility] [address] [id number] [place] [address] Mar, [facility] [place] [facility] [address] [id number] [place] [address] Mar, [facility] [place] [facility] [address] [id number] [place] [address] Feb, [facility] [place] [facility] [address] [id number] [place] [address] Feb, [facility] [place] [facility] [address] [id number] [place] [address] Feb, [facility] [place] [facility] [address] [id number] [place] [address] Feb, [facility] [place] [facility] [address] [id number] [place] [address] Jan, [facility] [place] [facility] [address] [id number] [place] [address] Jan, [facility] [place] [facility] [address] [id number] [place] [address] Jan, [facility] [place] [facility] [address] [id number] [place] [address] Jan, [facility] [place] [facility] [address] [id number] [place] [address] Dec, [facility] [place] [facility] [address] [id number] [place] [address] Dec, [facility] [place] [facility] [address] [id number] [place] [address] Nov, [facility] [place] [facility] [address] [id number] [place] [address] Oct, [facility] [place] [facility] [address] [id number] [place] [address] Oct, [facility] [place] [facility] [address] [id number] [place] [address] Oct, [facility] [place] [facility] [address] [id number] [place] [address] September, [facility] [place] [facility] [address] [id number] [place] [address] September, [facility] [place] [facility] [address] [id number] [place] [address] September, [facility] [address] [id number] [place] [address] September, [facility] [place] [facility] [address] [id number] [place] [address] September, [facility] [place] [facility] [address] [id number] [place] [address] September, [facility] [place] [facility] [address] [id number] [place] [address] September, [facility] [place] [facility] [address] [id number] [place] [address] Jul, [facility] [place] [facility] [address] [id number] [place] [address] Jul, [facility] [place] [facility] [address] [id number] [place] [address] Jun, [facility] [place] [facility] [address] [id number] [place] [address] Jun, [facility] [place] [facility] [address] [id number] [place] [address] Jun, [facility] [place] [facility] [address] [id number] [place] [address] May, [facility] [place] [facility] [address] [id number] [place] [address] Mar, [facility] [place] [facility] [address] [id number] [place] [address] Mar, [facility] [place] [facility] [address] [id number] [place] [address] 14 Mar, 2011 [facility] [place] [facility] [address] [id number] [place] [address] 31 Feb, 2011 [facility] [place] [facility] [address] [id number] [place] [address] Feb, [facility] [address] [id number], [place] [address] Dec, [facility] [id number], [place] [address] May, [facility] [id number], [place] [address] Apr, [facility] [id number], [place] [address] Apr, [facility] [id number], [place] [address] Apr, [facility] [id number], [place] [address] Apr, [facility] [id number], [place] [address] Feb, [facility] [id number], [place] [address] Oct, IMMUNIZATIONS No Known Immunizations SOCIAL HISTORY Never Assessed REASON FOR VISIT Lab (walk-in) PLAN OF CARE Activity Details Pending Test INR (IN HOUSE) VITAL SIGNS MEDICATIONS Medication Instructions Dosage Frequency Start Date End Date Duration Status Simvastatin 20MG TAKE 2 TABLETS ONCE DAILY Active Montelukast Sodium 10 TAKE ONE TABLET BY MOUTH EVERY EVENING 90 Active Vitamin D 2000 UNIT Orally Once a day 1 capsule 24h Active Stool Softener 100 MG Orally Once a day 1 capsule as needed 24h Active Folic Acid 1 MG Orally Once a day 1 tablet 24h Active Cyanocobalamin 1000 MCG/ML Orally once monthly as directed Jul, Active Metoprolol Succinate ER 50 MG TAKE 1 TABLET DAILY Active Clopidogrel Bisulfate 75 MG Orally Once a day 1 tablet 24h Active Zofran ODT 4 MG Orally 3 times a day 1 tablet 8h Aug, Not-Taking Amlodipine Besylate 10 MG Orally Once a day 1 tablet 24h Active Valium 2 MG Orally Once a day 1 tablet as needed 24h Oct, 30 days Active Klor-Con M20 20 meq Orally Once a day 1 tablet with food 24h 30 Active Lisinopril 10 MG TAKE 1 TABLET DAILY Active Flonase 50 MCG/ACT Nasally Once a day 1 spray in each nostril 24h Active Pepcid 20 MG Orally Once a day 1 tablet at bedtime 24h Active Lexapro 10 mg Orally Once a day 1 tablet 24h Active Montelukast Sodium 10 mg Orally Once a day 1 tablet in the evening 24h Active Warfarin Sodium 1 MG Orally Once a day 1 tablet 24h Active RESULTS No Results PROCEDURES Procedure Date Ordered Result Body Site PROTHROMBIN TIME Apr 04, 2018 INSTRUCTIONS MEDICATIONS ADMINISTERED No [...]
--- OUTSIDE RECORDS SUMMARY | 2018-12-05 11:42 | XMS REPORT ---
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 Phone ERIK SAMAYOA Unavailable PROBLEMS Type Condition ICD9-CM Code IFX01-WI Code Onset Dates Condition Status SNOMED Code Problem Mood disorder F39 Active 56746540 Problem PVD (peripheral vascular disease) I73.9 Active 569124676 Problem Amput leg, unil NOS-comp S88.919A Active 25033941 Problem Acute cystitis with hematuria N30.01 Active 20768107 Problem Major depressive disorder, single episode, unspecified F32.9 Active 40215324 Problem Anticoagulant long-term use Z79.01 Active 608791886 Problem Vitamin B12 deficiency E53.8 Dec, Active 993430595 Problem Chronic obstructive pulmonary disease, unspecified COPD type J44.9 Active 65404119 Problem Congestive heart failure, unspecified congestive heart failure chronicity, unspecified congestive heart failure type I50.9 Active 45079222 Problem Chronic fatigue, unspecified R53.82 Active 210323304 Problem Peripheral vascular disease I73.9 Active 647660487 Problem Chronic fatigue R53.82 Active 06217201 ALLERGIES No Information ENCOUNTERS Encounter Location Date Diagnosis [facility] [address] [address] Feb, [facility] [id number] [place] [address] Feb, Vitamin B12 deficiency E53.8 [facility] [id number] [place] [address] Feb, Vitamin B12 deficiency E53.8 [facility] [id number], [place] [address] Feb, Vitamin B12 deficiency E53.8 and Anticoagulant long-term use Z79.01 [facility] [id number] [place] [address] Jan, Anticoagulant long-term use Z79.01 [facility] [id number] [place] [address] Jan, Vitamin B12 deficiency E53.8 [facility] [id number] [place] [address] Jan, Anticoagulant long-term use Z79.01 [facility] [id number] [place] [address] Jan, Major depressive disorder, single episode, unspecified F32.9 [facility] [id number] [place] [address] Jan, [facility] [id number] [place] [address] Jan, Anticoagulant long-term use Z79.01 [facility] [id number] [place] [address] Dec, Anticoagulant long-term use Z79.01 [facility] [id number] [place] [address] Dec, Vitamin B12 deficiency E53.8 [facility] [id number] [place] [address] Dec, Major depressive disorder, single episode, unspecified F32.9 [facility] [id number] [place] [address] Nov, Vitamin B 12 deficiency E53.8 [facility] [id number] [place] [address] Nov, Anticoagulant long-term use Z79.01 ; Mood disorder F39 ; Chronic obstructive pulmonary disease, unspecified COPD type J44.9 ; Peripheral vascular disease I73.9 and Chronic fatigue R53.82 [facility] [id number] [place] [address] Nov, Mood disorder F39 [facility] [id number] [place] [address] Nov, [facility] [id number] [place] [address] Oct, Mood disorder F39 ; Chronic obstructive pulmonary disease, unspecified COPD type J44.9 ; Peripheral vascular disease I73.9 and Chronic fatigue R53.82 [facility] [facility] [address] [address] September, Anticoagulant long-term use Z79.01 and Congestive heart failure, unspecified congestive heart failure chronicity, unspecified congestive heart failure type I50.9 [facility] [id number] [place] [address] September, Vitamin B12 deficiency E53.8 [facility] [address] [address] September, Anticoagulant long-term use Z79.01 [facility] [id number] [place] [address] September, Anticoagulant long-term use Z79.01 and Congestive heart failure, unspecified congestive heart failure chronicity, unspecified congestive heart failure type I50.9 [facility] [id number] [place] [address] Aug, Chronic fatigue, unspecified R53.82 [facility] [id number] [place] [address] Aug, Anticoagulant long-term use Z79.01 [facility] [id number] [place] [address] Aug, Nausea R11.0 and Weakness R53.1 [facility] [id number] [place] [address] Aug, [facility] [id number] [place] [address] Aug, Hematuria R31.9 and Acute cystitis with hematuria N30.01 [facility] [id number] [place] [address] Aug, [facility] [id number] [place] [address] Jul, Vitamin B 12 deficiency E53.8 [facility] [address] [address] Jul, Anticoagulant long-term use Z79.01 [facility] [id number] [place] [address] Jun, Chronic fatigue, unspecified R53.82 [facility] [id number] [place] [address] Jun, Anticoagulant long-term use Z79.01 [facility] [id number] [place] [address] May, Flu-like symptoms R68.89 and Influenza A J10.1 [place] [id number] [place] [address] May, [facility] [id number] [place] [address] May, Chronic fatigue, unspecified R53.82 [facility] [id number] [place] [address] May, Anticoagulant long-term use Z79.01 [facility] [id number] [place] [address] 15 Apr, 2017 Medicare welcome exam Z00.00 ; Anticoagulant long-term use Z79.01 ; Medicare annual wellness visit, initial Z00.00 ; Medicare annual wellness visit, subsequent Z00.00 and Chronic fatigue, unspecified R53.82 [facility] [id number] [place] [address] Mar, Chronic fatigue, unspecified R53.82 [facility] [address], [place] [address] Mar, Anticoagulant long-term use Z79.01 [facility] [address] [place] [address] Mar, Anticoagulant long-term use Z79.01 and Hematuria R31.9 [facility] [id number] [place] [address] Mar, Hematuria R31.9 [facility] [id number] [place] [address] Feb, Anticoagulant long-term use Z79.01 [facility] [id number] [place] [address] Feb, Anticoagulant long-term use Z79.01 [facility] [id number] [place] [address] Feb, Anticoagulant long-term use Z79.01 [facility] [id number] [place] [address] Feb, Chronic fatigue, unspecified R53.82 [facility] [id number] [place] [address] Feb, Anticoagulant long-term use Z79.01 [facility] [address] [place] [address] Feb, Congestive heart failure, unspecified congestive heart failure chronicity, unspecified congestive heart failure type I50.9 [facility] [address] [place] [address] Feb, Congestive heart failure, unspecified congestive heart failure chronicity, unspecified congestive heart failure type I50.9 [facility] [id number] [place] [address] Feb, [place] [facility] [id number] [place] [address] Jan, Anticoagulant long-term use Z79.01 [facility] [id number] [place] [address] Jan, [facility] [id number] [place] [address] Jan, Anticoagulant long-term use Z79.01 and Hematuria R31.9 [facility] [address] [address] Jan, Anticoagulant long-term use Z79.01 [facility] [id number] [place] [address] Jan, Chronic fatigue, unspecified R53.82 [facility] [address] [address] Jan, Anticoagulant long-term use Z79.01 [facility] [id number] [place] [address] Dec, Chronic fatigue, unspecified R53.82 [facility] [id number] [place] [address] Dec, [facility] [facility] [id number] [place] [address] Dec, Chronic fatigue, unspecified R53.82 and Encounter for therapeutic drug level monitoring Z51.81 [facility] [id number] [place] [address] Nov, Encounter for therapeutic drug level monitoring Z51.81 [facility] [id number] [place] [address] Nov, Hematuria R31.9 [facility] [id number] [place] [address] Nov, Hematuria R31.9 ; Anticoagulant long-term use Z79.01 and PVD (peripheral vascular disease) I73.9 [facility] [id number] [place] [address] Nov, Anticoagulant long-term use Z79.01 [facility] [address] [place] [address] Nov, Anticoagulant long-term use Z79.01 [facility] [id number] [place] [address] Nov, [facility] [id number] [place] [address] Nov, Hematuria R31.9 and Acute cystitis with hematuria N30.01 [facility] [id number] [place] [id number] Oct, [facility] [id number] [place] [address] Oct, [facility] [id number] [place] [address] Oct, Hematuria R31.9 [facility] [id number] [place] [address] Oct, Hematuria R31.9 [facility] [id number] [place] [address] Oct, Anticoagulant long-term use Z79.01 [facility] [id number] [place] [address] Oct, Anticoagulant long-term use Z79.01 [facility] [address] [place] [address] Oct, [facility] [id number] [place] [address] September, PVD (peripheral vascular disease) I73.9 ; Amput leg, unil NOS-comp S88.919A ; Acute cystitis without hematuria N30.00 ; Anticoagulant long-term use Z79.01 and Hypokalemia E87.6 [facility] [facility] [id number] [place] [address] Aug, Anticoagulant long-term use Z79.01 and Bronchitis J40 [facility] [address] [address] Jul, [facility] [address] [address] Jul, Anticoagulant long-term use Z79.01 and Mood disorder F39 [facility] [address] [address] Jul, [facility] [address] [address] May, [place] [address] [address] May, Hypokalemia E87.6 [place] [address] [address] May, Mood disorder F39 [facility] [facility] [address] [address] May, Anticoagulant long-term use Z79.01 [place] [address] [address] Apr, Anticoagulant long-term use Z79.01 [place] [address] [address] Apr, Anticoagulant long-term use Z79.01 [place] [facility] [id number] [place] [address] Apr, [place] [address] [address] Apr, Anticoagulant long-term use Z79.01 [place] [id number] [place] [address] Apr, Anticoagulant long-term use Z79.01 [place] [address] [address] Apr, Anticoagulant long-term use Z79.01 [facility] [id number] [place] [address] Mar, [facility] [id number] [place] [address] Mar, [facility] [id number] [place] [address] Mar, Anticoagulant long-term use Z79.01 [facility] [id number] [place] [address] Feb, [facility] [address] [address] Feb, [facility] [id number] [place] [address] Feb, Anticoagulant long-term use Z79.01 [facility] [id number] [place] [address] Feb, Anticoagulant long-term use Z79.01 [facility] [id number] [place] [address] Jan, [facility] [id number] [place] [address] Jan, Anticoagulant long-term use Z79.01 [facility] [id number] [place] [address] Jan, Anticoagulant long-term use Z79.01 [facility] [id number] [place] [address] Dec, Anticoagulant long-term use Z79.01 [facility] [id number] [place] [address] Dec, Anticoagulant long-term use Z79.01 [facility] [id number] [place] [address] Dec, Anticoagulant long-term use Z79.01 and Mood disorder F39 [facility] [id number] [place] [address] Dec, [facility] [id number] [place] [address] Nov, [facility] [id number] [place] [address] Nov, Anticoagulant long-term use Z79.01 [facility] [id number] [place] [address] Nov, Anticoagulant long-term use Z79.01 [place] [id number] [place] [address] September, Anticoagulant long-term use Z79.01 [facility] [id number] [place] [address] Jul, Anticoagulant long-term use Z79.01 [place] [id number] [place] [address] May, Anticoagulant long-term use Z79.01 [place] [id number] [place] [address] May, Anticoagulant long-term use Z79.01 [facility] [id number] [place] [address] May, Anticoagulant long-term use Z79.01 [place] [id number] [place] [address] May, Anticoagulant long-term use Z79.01 [place] [id number] [place] [address] May, [place] [id number] [place] [address] May, Congestive heart failure, unspecified congestive heart failure chronicity, unspecified congestive heart failure type I50.9 and Pulmonary congestion R09.89 [facility] [id number] [place] [address] Apr, Cough R05 ; Congestive heart failure, unspecified congestive heart failure chronicity, unspecified congestive heart failure type I50.9 and Pulmonary congestion R09.89 [facility] [address] [address] Mar, Hematuria R31.9 [facility] [address] [address] Mar, [place] [address] [address] Mar, Anticoagulant long-term use Z79.01 [place] [address] [address] Mar, [place] [address] [address] Mar, Hematuria R31.9 and Infective urethritis N34.2 [place] [address] [address] Mar, Anticoagulant long-term use Z79.01 [place] [address] [address] Mar, Anticoagulant long-term use Z79.01 [place] [address] [address] Mar, [facility] [address] [address] Mar, Anticoagulant long-term use Z79.01 [place] [address] [address] Feb, Peristomal skin breakdown L98.499 [facility] [address] [address] Feb, [place] [address] [address] Feb, UTI (urinary tract infection) N39.0 [facility] [id number], [place] [address] Jan, [facility] [address], [place] [address] Dec, High risk medication use V58.69 [facility] [address], [place] [address] Nov, High risk medication use V58.69 [facility] [id number], [place] [address] Nov, [facility] [address], [place] [address] Nov, UTI (lower urinary tract infection) 599.0 ; URI, acute 465.9 ; Insomnia 780.52 ; Anxiety 300.00 and Lower limb amputation, unspecified level V49.70 [facility] [id number], [place] [address] Oct, UTI (lower urinary tract infection) 599.0 ; URI, acute 465.9 ; Insomnia 780.52 ; Anxiety 300.00 and Lower limb amputation, unspecified level V49.70 [facility] [id number], [place] [address] Aug, [facility] [id number], [place] [address] Aug, [facility] [id number], [place] [address] Jul, [facility] [id number], [place] [address] Jul, [facility] [id number], [place] [address] Jun, [facility] [id number], [place] [address] Jun, [facility] [place] [facility] [address] [id number] [place] [address] Mar, [facility] [place] [facility] [address] [id number] [place] [address] Mar, [facility] [place] [facility] [address] [id number] [place] [address] Mar, [facility] [place] [facility] [address] [id number] [place] [address] Mar, [facility] [place] [facility] [address] [id number] [place] [address] Mar, [facility] [place] [facility] [address] [id number] [place] [address] Feb, [facility] [place] [facility] [address] [id number] [place] [address] Feb, [facility] [place] [facility] [address] [id number] [place] [address] Feb, [facility] [place] [facility] [address] [id number] [place] [address] Feb, [facility] [place] [facility] [address] [id number] [place] [address] Feb, [facility] [place] [facility] [address] [id number] [place] [address] Feb, [facility] [place] [facility] [address] [id number], [place] [address] Feb, [facility] [place] [facility] [address] [id number] [place] [address] Feb, [facility] [place] [facility] [address] [id number] [place] [address] Feb, [facility] [place] [facility] [address] [id number] [place] [address] Feb, [facility] [place] [facility] [address] [id number], [place] [address] Feb, [facility] [place] [facility] [address] [id number] [place] [address] Feb, [facility] [place] [facility] [address] [id number] [place] [address] Feb, [facility] [place] [facility] [address] [id number] [place] [address] Feb, [facility] [place] [facility] [address] [id number] [place] [address] Feb, [facility] [place] [facility] [address] [id number] [place] [address] Feb, [facility] [place] [facility] [address] [id number] [place] [address] Jan, [facility] [place] [facility] [address] [id number] [place] [address] Jan, [facility] [place] [facility] [address] [id number] [place] [address] Jan, [facility] [place] [facility] [address] [id number] [place] [address] Jan, [facility] [place] [facility] [address] [id number] [place] [address] Jan, [facility] [place] [facility] [address] [id number] [place] [address] Nov, [facility] [place] [facility] [address] [id number] [place] [address] Nov, [facility] [place] [facility] [address] [id number] [place] [address] Nov, [facility] [place] [facility] [address] [id number] [place] [address] Nov, [facility] [place] [facility] [address] [id number] [place] [address] Nov, [facility] [place] [facility] [address] [id number] [place] [address] Nov, [facility] [place] [facility] [address] [id number] [place] [address] Oct, [facility] [place] [facility] [address] [id number] [place] [address] Oct, [facility] [place] [facility] [address] [id number] [place] [address] Oct, [facility] [place] [facility] [address] [id number] [place] [address] Oct, [facility] [place] [facility] [address] [id number] [place] [address] Oct, [facility] [place] [facility] [address] [id number] [place] [address] Oct, [facility] [place] [facility] [address] [id number] [place] [address] Oct, [facility] [place] [facility] [address] [id number] [place] [address] September, [facility] [place] [facility] [address] [id number] [place] [address] September, [facility] [place] [facility] [address] [id number] [place] [address] September, [facility] [place] [facility] [address] [id number] [place] [address] September, [facility] [place] [facility] [address] [id number] [place] [address] September, [facility] [place] [facility] [address] [id number] [place] [address] September, [facility] [place] [facility] [address] [id number] [place] [address] September, [facility] [place] [facility] [address] [id number] [place] [address] September, [facility] [place] [facility] [address] [id number] [place] [address] Aug, [facility] [place] [facility] [address] [id number] [place] [address] Aug, [facility] [place] [facility] [address] [id number] [place] [address] Aug, [facility] [place] [facility] [address] [id number] [place] [address] Aug, [facility] [place] [facility] [address] [id number] [place] [address] Jul, [facility] [place] [facility] [address] [id number] [place] [address] Jul, [facility] [place] [facility] [address] [id number] [place] [address] Jun, [facility] [place] [facility] [address] [id number] [place] [address] Jun, [facility] [place] [facility] [address] [id number] [place] [address] Jun, [facility] [place] [facility] [address] [id number] [place] [address] Jun, [facility] [place] [facility] [address] [id number] [place] [address] Jun, [facility] [place] [facility] [address] [id number] [place] [address] Jun, [facility] [facility] [address] [id number] [place] [address] May, [facility] [facility] [address] [id number] [place] [address] May, [facility] [place] [facility] [address] [id number] [place] [address] May, [facility] [place] [facility] [address] [id number] [place] [address] May, [facility] [address] [id number] [place] [address] May, [facility] [address] [id number] [place] [address] May, [facility] [address] [id number] [place] [address] Feb, [facility] [address] [id number] [place] [address] Feb, [facility] [address] [id number] [place] [address] Feb, [facility] [address] [id number] [place] [address] Feb, [facility] [address] [id number] [place] [address] Jan, [facility] [address] [id number] [place] [address] Jan, [facility] [address] [id number] [place] [address] Jan, [facility] [address] [id number] [place] [address] Dec, [facility] [address] [id number] [place] [address] Nov, [facility] [address] [id number] [place] [address] Nov, [facility] [address] [id number] [place] [address] Nov, [facility] [address] [id number] [place] [address] Nov, [facility] [address] [id number] [place] [address] Nov, [facility] [address] [id number] [place] [address] Oct, [facility] [address] [id number] [place] [address] September, [facility] [address] [id number] [place] [address] September, [facility] [address] [id number] [place] [address] Aug, [facility] [address] [id number] [place] [address] Aug, [facility] [address] [id number] [place] [address] Jul, [facility] [address] [id number] [place] [address] Jul, [facility] [address] [id number] [place] [address] Jul, [facility] [address] [id number] [place] [address] Jul, [facility] [address] [id number] [place] [address] Jun, [facility] [address] [id number] [place] [address] Jun, [facility] [address] [id number], [place] [address] Jun, [facility] [address] [id number] [place] [address] May, [facility] [address] [id number] [place] [address] May, [facility] [address] [id number] [place] [address] May, [facility] [address] [id number] [place] [address] May, [facility] [address] [id number] [place] [address] Apr, [facility] [address] [id number] [place] [address] Apr, [facility] [address] [id number] [place] [address] Apr, [facility] [address] [id number] [place] [address] Apr, [facility] [address] [id number] [place] [address] Apr, [facility] [address] [id number] [place] [address] Apr, [facility] [address] [id number] [place] [address] Mar, [facility] [address] [id number] [place] [address] Mar, [facility] [address] [id number] [place] [address] Mar, [facility] [address] [facility] [id number] [place] [address] Mar, [facility] [address] [id number] [place] [address] Mar, [facility] [address] [id number], [place] [address] Mar, [facility] [address] [id number] [place] [address] Feb, [facility] [address] [facility] [id number] [place] [address] Feb, [facility] [address] [facility] [id number], [place] [address] Feb, [facility] [address] [id number] [place] [address] Feb, [facility] [address] [id number] [place] [address] Jan, [facility] [address] [id number] [place] [address] Jan, [facility] [address] [id number] [place] [address] Jan, [facility] [address] [id number] [place] [address] Jan, [facility] [address] [id number] [place] [address] Dec, [facility] [address] [id number] [place] [address] Dec, [facility] [address] [id number] [place] [address] Nov, [facility] [address] [id number] [place] [address] Oct, [facility] [address] [id number] [place] [address] Oct, [facility] [address] [id number] [place] [address] Oct, [facility] [address] [id number] [place] [address] September, [facility] [address] [id number] [place] [address] September, [facility] [address] [id number] [place] [address] September, [facility] [address] [id number] [place] [address] September, [facility] [address] [id number] [place] [address] September, [facility] [address] [id number] [place] [address] September, [facility] [address] [id number] [place] [address] September, [facility] [address] [id number] [place] [address] Jul, [facility] [address] [id number] [place] [address] Jul, [facility] [address] [id number] [place] [address] Jun, [facility] [address] [id number] [place] [address] Jun, [facility] [address] [id number] [place] [address] Jun, [facility] [address] [id number] [place] [address] May, [facility] [address] [id number] [place] [address] Mar, [facility] [address] [id number] [place] [address] Mar, [facility] [address] [id number] [place] [address] 14 Mar, 2011 [facility] [address] [id number] [place] [address] 31 Feb, 2011 [facility] [address] [id number] [place] [address] 18 Feb, 2011 [facility] [address] [id number] [place] [address] 13 Dec, 2009 [facility] [address] [id number] [place] [address] 15 May, 2009 [facility] [address] [facility] [id number], [place] [address] Apr, [facility] [address] [id number], [place] [address] Apr, [facility] [address] [id number], [place] [address] Apr, [facility] [address] [id number], [place] [address] Apr, [facility] [address] [id number], [place] [address] Feb, [facility] [address] [id number], [place] [address] Oct, IMMUNIZATIONS No Known Immunizations SOCIAL HISTORY Never Assessed REASON FOR VISIT INR PLAN OF CARE VITAL SIGNS MEDICATIONS Unknown [...] 5th toe removal 06/25/2009 Hospitalization History pneumonia, hypoxia-[facility] 11/03/16
--- OUTSIDE RECORDS SUMMARY | 2018-12-05 11:43 | XMS REPORT ---
Author Author ERIK SAMAYOA Organization [facility] Address [address] [place] [address] Care Team Providers Care Database Administrator Name Role Phone ERIK SAMAYOA Unavailable PROBLEMS Type Condition ICD9-CM Code XBC53-ZX Code Onset Dates Condition Status SNOMED Code Problem Mood disorder F39 Active 62112327 Problem PVD (peripheral vascular disease) I73.9 Active 391709416 Problem Amput leg, unil NOS-comp S88.919A Active 43342835 Problem Acute cystitis with hematuria N30.01 Active 06738896 Problem Major depressive disorder, single episode, unspecified F32.9 Active 71186612 Problem Anticoagulant long-term use Z79.01 Active 086864530 Problem Vitamin B12 deficiency E53.8 Dec, Active 725576762 Problem Chronic obstructive pulmonary disease, unspecified COPD type J44.9 Active 51133810 Problem Congestive heart failure, unspecified congestive heart failure chronicity, unspecified congestive heart failure type I50.9 Active 40920212 Problem Chronic fatigue, unspecified R53.82 Active 196774693 Problem Peripheral vascular disease I73.9 Active 612858002 Problem Chronic fatigue R53.82 Active 49047196 ALLERGIES No Information ENCOUNTERS Encounter Location Date Diagnosis [facility] [id number] [address] Feb, [facility] [id number] [place] [address] Feb, Vitamin B12 deficiency E53.8 [facility] [id number] [place] [address] Feb, Vitamin B12 deficiency E53.8 [facility] [id number] [address] Feb, Vitamin B12 deficiency E53.8 and Anticoagulant long-term use Z79.01 [facility] [id number] [place] [address] Jan, Anticoagulant long-term use Z79.01 [facility] [id number] [place] [address] Jan, Vitamin B12 deficiency E53.8 [facility] [id number] [place] [address] Jan, Anticoagulant long-term use Z79.01 [facility] [id number] [place] [address] Jan, Major depressive disorder, single episode, unspecified F32.9 [facility] [id number] [place] [address] Jan, [facility] [id number] [place] [address] Jan, Anticoagulant long-term use Z79.01 [facility] [id number] [place] [address] Dec, Anticoagulant long-term use Z79.01 [facility] [id number] [place] [address] Dec, Vitamin B12 deficiency E53.8 [facility] [id number] [place] [address] Dec, Major depressive disorder, single episode, unspecified F32.9 [facility] [id number] [place] [address] Nov, Vitamin B 12 deficiency E53.8 [facility] [id number] [place] [address] Nov, Anticoagulant long-term use Z79.01 ; Mood disorder F39 ; Chronic obstructive pulmonary disease, unspecified COPD type J44.9 ; Peripheral vascular disease I73.9 and Chronic fatigue R53.82 [facility] [id number] [place] [address] Nov, Mood disorder F39 [facility] [id number] [place] [address] Nov, [facility] [id number] [place] [address] Oct, Mood disorder F39 ; Chronic obstructive pulmonary disease, unspecified COPD type J44.9 ; Peripheral vascular disease I73.9 and Chronic fatigue R53.82 [facility] [address] [address] September, Anticoagulant long-term use Z79.01 and Congestive heart failure, unspecified congestive heart failure chronicity, unspecified congestive heart failure type I50.9 [facility] [id number] [place] [address] September, Vitamin B12 deficiency E53.8 [facility] [facility] [address] [address] September, Anticoagulant long-term use Z79.01 [facility] [id number] [place] [address] September, Anticoagulant long-term use Z79.01 and Congestive heart failure, unspecified congestive heart failure chronicity, unspecified congestive heart failure type I50.9 [facility] [id number] [place] [address] Aug, Chronic fatigue, unspecified R53.82 [facility] [id number] [place] [address] Aug, Anticoagulant long-term use Z79.01 [facility] [id number] [place] [address] Aug, Nausea R11.0 and Weakness R53.1 [facility] [id number] [place] [address] Aug, [facility] [id number] [place] [address] Aug, Hematuria R31.9 and Acute cystitis with hematuria N30.01 [facility] [id number] [place] [address] Aug, [facility] [id number] [place] [address] Jul, Vitamin B 12 deficiency E53.8 [facility] [facility] [address] [address] Jul, Anticoagulant long-term use Z79.01 [facility] [id number] [place] [address] Jun, Chronic fatigue, unspecified R53.82 [facility] [id number] [place] [address] Jun, Anticoagulant long-term use Z79.01 [facility] [id number] [place] [address] May, Flu-like symptoms R68.89 and Influenza A J10.1 [place] [id number] [place] [address] May, [facility] [id number] [place] [address] May, Chronic fatigue, unspecified R53.82 [facility] [id number] [place] [address] May, Anticoagulant long-term use Z79.01 [facility] [id number] [place] [address] 15 Apr, 2017 Medicare welcome exam Z00.00 ; Anticoagulant long-term use Z79.01 ; Medicare annual wellness visit, initial Z00.00 ; Medicare annual wellness visit, subsequent Z00.00 and Chronic fatigue, unspecified R53.82 [facility] [id number] [place] [address] Mar, Chronic fatigue, unspecified R53.82 [facility] [address], [place] [address] Mar, Anticoagulant long-term use Z79.01 [facility] [id number] [place] [address] Mar, Anticoagulant long-term use Z79.[address] [facility] [id number] [place] [address] Mar, Hematuria R31.9 [facility] [id number] [place] [address] Feb, Anticoagulant long-term use Z79.01 [facility] [id number] [place] [address] Feb, Anticoagulant long-term use Z79.01 [facility] [id number] [place] [address] Feb, Anticoagulant long-term use Z79.01 [facility] [id number] [place] [address] Feb, Chronic fatigue, unspecified R53.82 [facility] [id number] [place] [address] Feb, Anticoagulant long-term use Z79.01 [place] [id number] [place] [address] Feb, Congestive heart failure, unspecified congestive heart failure chronicity, unspecified congestive heart failure type I50.9 [facility] [id number] [place] [address] Feb, Congestive heart failure, unspecified congestive heart failure chronicity, unspecified congestive heart failure type I50.9 [facility] [id number] [place] [address] Feb, [facility] [facility] [id number] [place] [address] Jan, Anticoagulant long-term use Z79.01 [facility] [facility] [id number] [place] [address] Jan, [facility] [id number] [place] [address] Jan, Anticoagulant long-term use Z79.01 and Hematuria R31.9 [facility] [facility] [address] [address] Jan, Anticoagulant long-term use Z79.01 [facility] [id number] [place] [address] Jan, Chronic fatigue, unspecified R53.82 [facility] [address] [address] Jan, Anticoagulant long-term use Z79.01 [facility] [id number] [place] [address] Dec, Chronic fatigue, unspecified R53.82 [facility] [id number] [place] [address] Dec, [facility] [id number] [place] [address] Dec, Chronic fatigue, unspecified R53.82 and Encounter for therapeutic drug level monitoring Z51.81 [facility] [id number] [place] [address] Nov, Encounter for therapeutic drug level monitoring Z51.81 [facility] [id number] [place] [address] Nov, Hematuria R31.9 [facility] [id number] [place] [address] Nov, Hematuria R31.9 ; Anticoagulant long-term use Z79.01 and PVD (peripheral vascular disease) I73.9 [facility] [id number] [place] [address] Nov, Anticoagulant long-term use Z79.01 [facility] [id number] [place] [address] Nov, Anticoagulant long-term use Z79.01 [facility] [id number] [place] [address] Nov, [facility] [id number] [place] [address] Nov, Hematuria R31.9 and Acute cystitis with hematuria N30.01 [facility] [id number] [place] [id number] Oct, [place] [id number] [place] [address] Oct, [facility] [id number] [place] [address] Oct, Hematuria R31.9 [facility] [facility] [id number] [place] [address] Oct, Hematuria R31.9 [facility] [id number] [place] [address] Oct, Anticoagulant long-term use Z79.01 [facility] [id number] [place] [address] Oct, Anticoagulant long-term use Z79.01 [facility] [id number] [place] [address] Oct, [facility] [id number] [place] [address] September, PVD (peripheral vascular disease) I73.9 ; Amput leg, unil NOS-comp S88.919A ; Acute cystitis without hematuria N30.00 ; Anticoagulant long-term use Z79.01 and Hypokalemia E87.6 [place] [facility] [id number] [place] [address] Aug, Anticoagulant long-term use Z79.[address] [facility] [address] [address] Jul, [facility] [address] [address] Jul, Anticoagulant long-term use Z79.[address] Mood [address] F39 [facility] [address] [address] Jul, [facility] [address] [address] May, [place] [address] [address] May, Hypokalemia E87.6 [place] [address] [address] May, Mood disorder F39 [place] [facility] [address] [address] May, Anticoagulant long-term use Z79.01 [place] [address] [address] Apr, Anticoagulant long-term use Z79.01 [place] [address] [address] Apr, Anticoagulant long-term use Z79.01 [place] [id number] [place] [address] Apr, [place] [facility] [address] [address] Apr, Anticoagulant long-term use Z79.01 [place] [id number] [place] [address] Apr, Anticoagulant long-term use Z79.01 [place] [address] [address] Apr, Anticoagulant long-term use Z79.01 [facility] [id number] [place] [address] Mar, [facility] [id number] [place] [address] Mar, [facility] [id number] [place] [address] Mar, Anticoagulant long-term use Z79.01 [facility] [id number] [place] [address] Feb, [facility] [address] [address] Feb, [facility] [id number] [place] [address] Feb, Anticoagulant long-term use Z79.01 [facility] [id number] [place] [address] Feb, Anticoagulant long-term use Z79.01 [facility] [id number] [place] [address] Jan, [facility] [id number] [place] [address] Jan, Anticoagulant long-term use Z79.01 [facility] [id number] [place] [address] Jan, Anticoagulant long-term use Z79.01 [facility] [id number] [place] [address] Dec, Anticoagulant long-term use Z79.01 [facility] [id number] [place] [address] Dec, Anticoagulant long-term use Z79.01 [facility] [id number] [place] [address] Dec, Anticoagulant long-term use Z79.[address]39 [facility] [id number] [place] [address] Dec, [facility] [id number] [place] [address] Nov, [facility] [id number] [place] [address] Nov, Anticoagulant long-term use Z79.01 [facility] [id number] [place] [address] Nov, Anticoagulant long-term use Z79.01 [facility] [facility] [id number] [place] [address] September, Anticoagulant long-term use Z79.01 [place] [facility] [id number] [place] [address] Jul, Anticoagulant long-term use Z79.01 [place] [facility] [id number] [place] [address] May, Anticoagulant long-term use Z79.01 [facility] [facility] [id number] [place] [address] May, Anticoagulant long-term use Z79.01 [facility] [id number] [place] [address] May, Anticoagulant long-term use Z79.01 [place] [id number] [place] [address] May, Anticoagulant long-term use Z79.01 [place] [id number] [place] [address] May, [place] [id number] [place] [address] May, Congestive heart failure, unspecified congestive heart failure chronicity, unspecified congestive heart failure type I50.9 and Pulmonary congestion R09.89 [place] [id number] [place] [address] Apr, Cough R05 ; Congestive heart failure, unspecified congestive heart failure chronicity, unspecified congestive heart failure type I50.9 and Pulmonary congestion R09.89 [facility] [address] [address] Mar, Hematuria R31.9 [facility] [address] [address] Mar, [place] [address] [address] Mar, Anticoagulant long-term use Z79.01 [place] [address] [address] Mar, [place] [address] [address] Mar, Hematuria R31.9 and Infective urethritis N34.2 [place] [address] [address] Mar, Anticoagulant long-term use Z79.01 [place] [address] [address] Mar, Anticoagulant long-term use Z79.01 [place] [address] [address] Mar, [facility] [address] [address] Mar, Anticoagulant long-term use Z79.01 [place] [address] [address] Feb, Peristomal skin breakdown L98.499 [facility] [address] [address] Feb, [place] [address] [address] Feb, UTI (urinary tract infection) N39.0 [facility] [id number] [address] Jan, [facility] [address] [place] [address] Dec, High risk medication use V58.69 [facility] [address] [address] Nov, High risk medication use V58.69 [facility] [id number], [place] [address] Nov, [facility] [address] [address] Nov, UTI (lower urinary tract infection) 599.0 ; URI, acute 465.9 ; Insomnia 780.52 ; Anxiety 300.00 and Lower limb amputation, unspecified level V49.70 [facility] [id number] [address] Oct, UTI (lower urinary tract infection) 599.0 ; URI, acute 465.9 ; Insomnia 780.52 ; Anxiety 300.00 and Lower limb amputation, unspecified level V49.70 [facility] [id number] [address] Aug, [facility] [id number] [address] Aug, [facility] [id number] [address] Jul, [facility] [id number] [address] Jul, [facility] [id number] [address] Jun, [facility] [id number] [address] Jun, [facility] [place] [facility] [address] [id number] [place] [address] Mar, [facility] [place] [facility] [address] [id number] [place] [address] Mar, [facility] [place] [facility] [address] [id number] [place] [address] Mar, [facility] [place] [facility] [address] [id number] [place] [address] Mar, [facility] [place] [facility] [address] [id number] [place] [address] Mar, [facility] [place] [facility] [address] [id number] [place] [address] Feb, [facility] [place] [facility] [address] [id number] [place] [address] Feb, [facility] [place] [facility] [address] [id number] [place] [address] Feb, [facility] [place] [facility] [address] [id number] [place] [address] Feb, [facility] [place] [facility] [address] [id number] [place] [address] Feb, [facility] [place] [facility] [address] [id number] [place] [address] Feb, [facility] [place] [facility] [address] [id number] [address] Feb, [facility] [place] [facility] [address] [id number] [place] [address] Feb, [facility] [place] [facility] [address] [id number] [place] [address] Feb, [facility] [place] [facility] [address] [id number] [place] [address] Feb, [facility] [place] [facility] [address] [id number] [address] Feb, [facility] [place] [facility] [address] [id number] [place] [address] Feb, [facility] [place] [facility] [address] [id number] [place] [address] Feb, [facility] [place] [facility] [address] [id number] [place] [address] Feb, [facility] [place] [facility] [address] [id number] [place] [address] Feb, [facility] [place] [facility] [address] [id number] [place] [address] Feb, [facility] [place] [facility] [address] [id number] [place] [address] Jan, [facility] [place] [facility] [address] [id number] [place] [address] Jan, [facility] [place] [facility] [address] [id number] [place] [address] Jan, [facility] [place] [facility] [address] [id number] [place] [address] Jan, [facility] [place] [facility] [address] [id number] [place] [address] Jan, [facility] [place] [facility] [address] [id number] [place] [address] Nov, [facility] [place] [facility] [address] [id number] [place] [address] Nov, [facility] [place] [facility] [address] [id number] [place] [address] Nov, [facility] [place] [facility] [address] [id number] [place] [address] Nov, [facility] [place] [facility] [address] [id number] [place] [address] Nov, [facility] [place] [facility] [address] [id number] [place] [address] Nov, [facility] [place] [facility] [address] [id number] [place] [address] Oct, [facility] [place] [facility] [address] [id number] [place] [address] Oct, [facility] [place] [facility] [address] [id number] [place] [address] Oct, [facility] [place] [facility] [address] [id number] [place] [address] Oct, [facility] [place] [facility] [address] [id number] [place] [address] Oct, [facility] [place] [facility] [address] [id number] [place] [address] Oct, [facility] [place] [facility] [address] [id number] [place] [address] Oct, [facility] [place] [facility] [address] [id number] [place] [address] September, [facility] [place] [facility] [address] [id number] [place] [address] September, [facility] [place] [facility] [address] [id number] [place] [address] September, [facility] [place] [facility] [address] [id number] [place] [address] September, [facility] [place] [facility] [address] [id number] [place] [address] September, [facility] [place] [facility] [address] [id number] [place] [address] September, [facility] [place] [facility] [address] [id number] [place] [address] September, [facility] [place] [facility] [address] [id number] [place] [address] September, [facility] [place] [facility] [address] [id number] [place] [address] Aug, [facility] [place] [facility] [address] [id number] [place] [address] Aug, [facility] [place] [facility] [address] [id number] [place] [address] Aug, [facility] [place] [facility] [address] [id number] [place] [address] Aug, [facility] [place] [facility] [address] [id number] [place] [address] Jul, [facility] [place] [facility] [address] [id number] [place] [address] Jul, [facility] [place] [facility] [address] [id number] [place] [address] Jun, [facility] [place] [facility] [address] [id number] [place] [address] Jun, [facility] [place] [facility] [address] [id number] [place] [address] Jun, [facility] [place] [facility] [address] [id number] [place] [address] Jun, [facility] [place] [facility] [address] [id number] [place] [address] Jun, [facility] [place] [facility] [address] [id number] [place] [address] Jun, [facility] [place] [facility] [address] [id number] [place] [address] May, [facility] [place] [facility] [address] [id number] [place] [address] May, [facility] [place] [facility] [address] [id number] [place] [address] May, [facility] [place] [facility] [address] [address] [id number] [place] [address] May, [facility] [address] [id number] [place] [address] May, [facility] [address] [id number] [place] [address] May, [facility] [address] [id number] [place] [address] Feb, [facility] [address] [id number] [place] [address] Feb, [facility] [address] [id number] [place] [address] Feb, [facility] [address] [id number] [place] [address] Feb, [facility] [address] [id number] [place] [address] Jan, [facility] [address] [id number] [place] [address] Jan, [facility] [address] [id number] [place] [address] Jan, [facility] [address] [id number] [place] [address] Dec, [facility] [place] [facility] [address] [id number] [place] [address] Nov, [facility] [address] [id number] [place] [address] Nov, [facility] [place] [facility] [address] [id number] [place] [address] Nov, [facility] [place] [facility] [address] [id number] [place] [address] Nov, [facility] [place] [facility] [address] [id number] [place] [address] Nov, [facility] [address] [id number] [place] [address] Oct, [facility] [address] [id number] [place] [address] September, [facility] [address] [id number] [place] [address] September, [facility] [address] [id number] [place] [address] Aug, [facility] [address] [id number] [place] [address] Aug, [facility] [address] [id number] [place] [address] Jul, [facility] [address] [id number] [place] [address] Jul, [facility] [address] [id number] [place] [address] Jul, [facility] [address] [id number] [place] [address] Jul, [facility] [address] [id number] [place] [address] Jun, [facility] [place] [facility] [address] [id number] [place] [address] Jun, [facility] [place] [facility] [address] [id number], [place] [address] Jun, [facility] [place] [facility] [address] [id number] [place] [address] May, [facility] [place] [facility] [address] [id number] [place] [address] May, [facility] [place] [facility] [address] [id number] [place] [address] May, [facility] [place] [facility] [address] [id number] [place] [address] May, [facility] [place] [facility] [address] [id number] [place] [address] Apr, [facility] [place] [facility] [address] [id number] [place] [address] Apr, [facility] [place] [facility] [address] [id number] [place] [address] Apr, [facility] [place] [facility] [address] [id number] [place] [address] Apr, [facility] [place] [facility] [address] [id number] [place] [address] Apr, [facility] [place] [facility] [address] [id number] [place] [address] Apr, [facility] [place] [facility] [address] [id number] [place] [address] Mar, [facility] [place] [facility] [address] [id number] [place] [address] Mar, [facility] [place] [facility] [address] [id number] [place] [address] Mar, [facility] [place] [facility] [address] [facility] [id number] [place] [address] Mar, [facility] [place] [facility] [address] [id number] [place] [address] Mar, [facility] [place] [facility] [address] [id number], [place] [address] Mar, [facility] [place] [facility] [address] [id number] [place] [address] Feb, [facility] [place] [facility] [address] [facility] [id number] [place] [address] Feb, [facility] [place] [facility] [address] [facility] [id number], [place] [address] Feb, [facility] [place] [facility] [address] [id number] [place] [address] Feb, [facility] [place] [facility] [address] [id number] [place] [address] Jan, [facility] [place] [facility] [address] [id number] [place] [address] Jan, [facility] [place] [facility] [address] [id number] [place] [address] Jan, [facility] [place] [facility] [address] [id number] [place] [address] Jan, [facility] [place] [facility] [address] [id number] [place] [address] Dec, [facility] [place] [facility] [address] [id number] [place] [address] Dec, [facility] [place] [facility] [address] [id number] [place] [address] Nov, [facility] [place] [facility] [address] [id number] [place] [address] Oct, [facility] [place] [facility] [address] [id number] [place] [address] Oct, [facility] [place] [facility] [address] [id number] [place] [address] Oct, [facility] [place] [facility] [address] [id number] [place] [address] September, [facility] [place] [facility] [address] [id number] [place] [address] September, [facility] [place] [facility] [address] [id number] [place] [address] September, [facility] [place] [facility] [address] [id number] [place] [address] September, [facility] [place] [facility] [address] [id number] [place] [address] September, [facility] [place] [facility] [address] [id number] [place] [address] September, [facility] [place] [facility] [address] [id number] [place] [address] September, [facility] [place] [facility] [address] [id number] [place] [address] Jul, [facility] [place] [facility] [address] [id number] [place] [address] Jul, [facility] [place] [facility] [address] [id number] [place] [address] Jun, [facility] [place] [facility] [address] [id number] [place] [address] Jun, [facility] [place] [facility] [address] [id number] [place] [address] Jun, [facility] [place] [facility] [address] [id number] [place] [address] May, [facility] [place] [facility] [address] [id number] [place] [address] Mar, [facility] [place] [facility] [address] [id number] [place] [address] Mar, [facility] [place] [facility] [address] [id number] [place] [address] 14 Mar, 2011 [facility] [place] [facility] [address] [id number] [place] [address] 31 Feb, 2011 [facility] [place] [facility] [address] [id number] [place] [address] 18 Feb, 2011 [facility] [place] [facility] [address] [id number] [place] [address] 13 Dec, 2009 [facility] [place] [facility] [address] [id number] [place] [address] 15 May, 2009 [facility] [place] [facility] [address] [facility] [id number] [place] [address] Apr, [facility] [address] [facility] [id number] [address] Apr, [facility] [address] [id number] [address] Apr, [facility] [address] [facility] [id number] [address] Apr, [facility] [address] [id number] [address] Feb, [facility] [address] [facility] [id number], [place] [address] Oct, IMMUNIZATIONS Vaccine Route Administration Date Status B12, VITAMIN (UP TO 1000 MCG) IM Intramuscular Feb 27, 2018 Administered SOCIAL HISTORY Never Assessed REASON FOR VISIT B12 injection-ROSALIA kaufman PLAN OF CARE VITAL SIGNS MEDICATIONS Unknown Medications RESULTS No Results PROCEDURES Procedure Date Ordered Result Body Site B12, VITAMIN (UP TO 1000 MCG) Feb 27, 2018 THER/PROPH/DIAG INJ, SC/IM Feb 27, 2018 INSTRUCTIONS MEDICATIONS ADMINISTERED No Known Medications [...]
--- OUTSIDE RECORDS SUMMARY | 2018-12-05 11:43 | XMS REPORT ---
Author Author ERIK SAMAYOA Organization [facility] Address [address] [place] [address] Care Team Providers Care Traffic Maintenance Supervisor Name Role Phone ERIK SAMAYOA Unavailable PROBLEMS Type Condition ICD9-CM Code DSR98-ON Code Onset Dates Condition Status SNOMED Code Problem Mood disorder F39 Active 89154087 Problem PVD (peripheral vascular disease) I73.9 Active 023671293 Problem Amput leg, unil NOS-comp S88.919A Active 55867789 Problem Acute cystitis with hematuria N30.01 Active 06622906 Problem Major depressive disorder, single episode, unspecified F32.9 Active 76237987 Problem Anticoagulant long-term use Z79.01 Active 967935131 Problem Vitamin B12 deficiency E53.8 Dec, Active 386142600 Problem Chronic obstructive pulmonary disease, unspecified COPD type J44.9 Active 61911513 Problem Congestive heart failure, unspecified congestive heart failure chronicity, unspecified congestive heart failure type I50.9 Active 07201103 Problem Chronic fatigue, unspecified R53.82 Active 900758665 Problem Peripheral vascular disease I73.9 Active 850952950 Problem Chronic fatigue R53.82 Active 29798677 ALLERGIES No Information ENCOUNTERS Encounter Location Date Diagnosis [facility] [address] [address] Feb, [facility] [id number] [place] [address] Feb, Vitamin B12 deficiency E53.8 [facility] [id number] [place] [address] Feb, Vitamin B12 deficiency E53.8 [facility] [id number] [address] Feb, Vitamin B12 deficiency E53.8 and Anticoagulant long-term use Z79.01 [place] [id number] [place] [address] Jan, Anticoagulant long-term use Z79.01 [place] [id number] [place] [address] Jan, Vitamin B12 deficiency E53.8 [place] [id number] [place] [address] Jan, Anticoagulant long-term use Z79.01 [place] [id number] [place] [address] Jan, Major depressive disorder, single episode, unspecified F32.9 [place] [id number] [place] [address] Jan, [place] [id number] [place] [address] Jan, Anticoagulant long-term use Z79.01 [place] [id number] [place] [address] Dec, Anticoagulant long-term use Z79.01 [place] [id number] [place] [address] Dec, Vitamin B12 deficiency E53.8 [place] [id number] [place] [address] Dec, Major depressive disorder, single episode, unspecified F32.9 [place] [id number] [place] [address] Nov, Vitamin B 12 deficiency E53.8 [place] [id number] [place] [address] Nov, Anticoagulant long-term use Z79.01 ; Mood disorder F39 ; Chronic obstructive pulmonary disease, unspecified COPD type J44.9 ; Peripheral vascular disease I73.9 and Chronic fatigue R53.82 [place] [id number] [place] [address] Nov, Mood disorder F39 [facility] [id number] [place] [address] Nov, [place] [id number] [place] [address] Oct, Mood disorder F39 ; Chronic obstructive pulmonary disease, unspecified COPD type J44.9 ; Peripheral vascular disease I73.9 and Chronic fatigue R53.82 [place] [address] [address] September, Anticoagulant long-term use Z79.01 and Congestive heart failure, unspecified congestive heart failure chronicity, unspecified congestive heart failure type I50.9 [place] [id number] [place] [address] September, Vitamin B12 deficiency E53.8 [place] [address] [address] September, Anticoagulant long-term use Z79.01 [place] [id number] [place] [address] September, Anticoagulant long-term use Z79.01 and Congestive heart failure, unspecified congestive heart failure chronicity, unspecified congestive heart failure type I50.9 [place] [id number] [place] [address] Aug, Chronic fatigue, unspecified R53.82 [place] [id number] [place] [address] Aug, Anticoagulant long-term use Z79.01 [place] [id number] [place] [address] Aug, Nausea R11.0 and Weakness R53.1 [place] [id number] [place] [address] Aug, [facility] [id number] [place] [address] Aug, Hematuria R31.9 and Acute cystitis with hematuria N30.01 [place] [id number] [place] [address] Aug, [place] [id number] [place] [address] Jul, Vitamin B 12 deficiency E53.8 [place] [address] [address] Jul, Anticoagulant long-term use Z79.01 [place] [id number] [place] [address] Jun, Chronic fatigue, unspecified R53.82 [place] [id number] [place] [address] Jun, Anticoagulant long-term use Z79.01 [place] [id number] [place] [address] May, Flu-like symptoms R68.89 and Influenza A J10.1 [place] [id number] [place] [address] May, [place] [id number] [place] [address] May, Chronic fatigue, unspecified R53.82 [place] [id number] [place] [address] May, Anticoagulant long-term use Z79.01 [place] [id number] [place] [address] 15 Apr, 2017 Medicare welcome exam Z00.00 ; Anticoagulant long-term use Z79.01 ; Medicare annual wellness visit, initial Z00.00 ; Medicare annual wellness visit, subsequent Z00.00 and Chronic fatigue, unspecified R53.82 [place] [id number] [place] [address] Mar, Chronic fatigue, unspecified R53.82 [facility] [address], [place] [address] Mar, Anticoagulant long-term use Z79.01 [facility] [id number] [place] [address] Mar, Anticoagulant long-term use Z79.01 and Hematuria R31.9 [facility] [id number] [place] [address] Mar, Hematuria R31.9 [facility] [id number] [place] [address] Feb, Anticoagulant long-term use Z79.01 [place] [id number] [place] [address] Feb, Anticoagulant long-term use Z79.01 [place] [id number] [place] [address] Feb, Anticoagulant long-term use Z79.01 [place] [id number] [place] [address] Feb, Chronic fatigue, unspecified R53.82 [place] [id number] [place] [address] Feb, Anticoagulant long-term use Z79.01 [place] [id number] [place] [address] Feb, Congestive heart failure, unspecified congestive heart failure chronicity, unspecified congestive heart failure type I50.9 [place] [id number] [place] [address] Feb, Congestive heart failure, unspecified congestive heart failure chronicity, unspecified congestive heart failure type I50.9 [facility] [id number] [place] [address] Feb, [place] [id number] [place] [address] Jan, Anticoagulant long-term use Z79.01 [place] [id number] [place] [address] Jan, [place] [id number] [place] [address] Jan, Anticoagulant long-term use Z79.01 and Hematuria R31.9 [place] [address] [address] Jan, Anticoagulant long-term use Z79.01 [place] [id number] [place] [address] Jan, Chronic fatigue, unspecified R53.82 [place] [address] [address] Jan, Anticoagulant long-term use Z79.01 [place] [id number] [place] [address] Dec, Chronic fatigue, unspecified R53.82 [place] [id number] [place] [address] Dec, [place] [id number] [place] [address] Dec, Chronic fatigue, unspecified R53.82 and Encounter for therapeutic drug level monitoring Z51.81 [place] [id number] [place] [address] Nov, Encounter for therapeutic drug level monitoring Z51.81 [place] [id number] [place] [address] Nov, Hematuria R31.9 [place] [id number] [place] [address] Nov, Hematuria R31.9 ; Anticoagulant long-term use Z79.01 and PVD (peripheral vascular disease) I73.9 [place] [id number] [place] [address] Nov, Anticoagulant long-term use Z79.01 [facility] [id number] [place] [address] Nov, Anticoagulant long-term use Z79.01 [facility] [id number] [place] [address] Nov, [place] [id number] [place] [address] Nov, Hematuria R31.9 and Acute cystitis with hematuria N30.01 [facility] [id number] [place] [id number] Oct, [place] [id number] [place] [address] Oct, [place] [id number] [place] [address] Oct, Hematuria R31.9 [place] [id number] [place] [address] Oct, Hematuria R31.9 [place] [id number] [place] [address] Oct, Anticoagulant long-term use Z79.01 [facility] [id number] [place] [address] Oct, Anticoagulant long-term use Z79.01 [facility] [address] [place] [address] Oct, [facility] [id number] [place] [address] September, PVD (peripheral vascular disease) I73.9 ; Amput leg, unil NOS-comp S88.919A ; Acute cystitis without hematuria N30.00 ; Anticoagulant long-term use Z79.01 and Hypokalemia E87.6 [place] [id number] [place] [address] Aug, Anticoagulant long-term use Z79.01 and Bronchitis J40 [facility] [address] [address] Jul, [facility] [address] [address] Jul, Anticoagulant long-term use Z79.01 and Mood disorder F39 [facility] [address] [address] Jul, [facility] [address] [address] May, [place] [address] [address] May, Hypokalemia E87.6 [place] [address] [address] May, Mood disorder F39 [place] [address] [address] May, Anticoagulant long-term use Z79.01 [place] [address] [address] Apr, Anticoagulant long-term use Z79.01 [place] [address] [address] Apr, Anticoagulant long-term use Z79.01 [place] [id number] [place] [address] Apr, [place] [address] [address] Apr, Anticoagulant long-term use Z79.01 [place] [id number] [place] [address] Apr, Anticoagulant long-term use Z79.01 [place] [address] [address] Apr, Anticoagulant long-term use Z79.01 [facility] [id number] [place] [address] Mar, [facility] [id number] [place] [address] Mar, [facility] [id number] [place] [address] Mar, Anticoagulant long-term use Z79.01 [facility] [id number] [place] [address] Feb, [facility] [address] [address] Feb, [facility] [id number] [place] [address] Feb, Anticoagulant long-term use Z79.01 [facility] [id number] [place] [address] Feb, Anticoagulant long-term use Z79.01 [facility] [id number] [place] [address] Jan, [facility] [id number] [place] [address] Jan, Anticoagulant long-term use Z79.01 [facility] [id number] [place] [address] Jan, Anticoagulant long-term use Z79.01 [facility] [id number] [place] [address] Dec, Anticoagulant long-term use Z79.01 [facility] [id number] [place] [address] Dec, Anticoagulant long-term use Z79.01 [facility] [id number] [place] [address] Dec, Anticoagulant long-term use Z79.01 and Mood disorder F39 [facility] [id number] [place] [address] Dec, [facility] [id number] [place] [address] Nov, [facility] [id number] [place] [address] Nov, Anticoagulant long-term use Z79.01 [facility] [id number] [place] [address] Nov, Anticoagulant long-term use Z79.01 [place] [id number] [place] [address] September, Anticoagulant long-term use Z79.01 [place] [id number] [place] [address] Jul, Anticoagulant long-term use Z79.01 [place] [id number] [place] [address] May, Anticoagulant long-term use Z79.01 [place] [id number] [place] [address] May, Anticoagulant long-term use Z79.01 [place] [id number] [place] [address] May, Anticoagulant long-term use Z79.01 [place] [id number] [place] [address] May, Anticoagulant long-term use Z79.01 [place] [id number] [place] [address] May, [place] [id number] [place] [address] May, Congestive heart failure, unspecified congestive heart failure chronicity, unspecified congestive heart failure type I50.9 and Pulmonary congestion R09.89 [place] [id number] [place] [address] Apr, Cough R05 ; Congestive heart failure, unspecified congestive heart failure chronicity, unspecified congestive heart failure type I50.9 and Pulmonary congestion R09.89 [facility] [address] [address] Mar, Hematuria R31.9 [facility] [address] [address] Mar, [place] [address] [address] Mar, Anticoagulant long-term use Z79.01 [place] [address] [address] Mar, [place] [address] [address] Mar, Hematuria R31.9 and Infective urethritis N34.2 [place] [address] [address] Mar, Anticoagulant long-term use Z79.01 [place] [address] [address] Mar, Anticoagulant long-term use Z79.01 [place] [address] [address] Mar, [facility] [address] [address] Mar, Anticoagulant long-term use Z79.01 [place] [address] [address] Feb, Peristomal skin breakdown L98.499 [facility] [address] [address] Feb, [place] [address] [address] Feb, UTI (urinary tract infection) N39.0 [facility] [id number] [address] Jan, [facility] [address], [place] [address] Dec, High risk medication use V58.69 [facility] [address] [place] [address] Nov, High risk medication use V58.69 [facility] [id number] [address] Nov, [facility] [address], [place] [address] Nov, UTI (lower urinary tract infection) 599.0 ; URI, acute 465.9 ; Insomnia 780.52 ; Anxiety 300.00 and Lower limb amputation, unspecified level V49.70 [facility] [id number] [address] Oct, UTI (lower urinary tract infection) 599.0 ; URI, acute 465.9 ; Insomnia 780.52 ; Anxiety 300.00 and Lower limb amputation, unspecified level V49.70 [facility] [id number] [address] Aug, [facility] [id number] [address] Aug, [facility] [id number] [address] Jul, [facility] [id number] [address] Jul, [facility] [id number] [address] Jun, [facility] [id number] [address] Jun, [facility] [place] [facility] [address] [id number] [place] [address] Mar, [facility] [place] [facility] [address] [id number] [place] [address] Mar, [facility] [place] [facility] [address] [id number] [place] [address] Mar, [facility] [place] [facility] [address] [id number] [place] [address] Mar, [facility] [place] [facility] [address] [id number] [place] [address] Mar, [facility] [place] [facility] [address] [id number] [place] [address] Feb, [facility] [place] [facility] [address] [id number] [place] [address] Feb, [facility] [place] [facility] [address] [id number] [place] [address] Feb, [facility] [place] [facility] [address] [id number] [place] [address] Feb, [facility] [place] [facility] [address] [id number] [place] [address] Feb, [facility] [place] [facility] [address] [id number] [place] [address] Feb, [facility] [place] [facility] [address] [id number], [place] [address] Feb, [facility] [place] [facility] [address] [id number] [place] [address] Feb, [facility] [place] [facility] [address] [id number] [place] [address] Feb, [facility] [place] [facility] [address] [id number] [place] [address] Feb, [facility] [place] [facility] [address] [id number], [place] [address] Feb, [facility] [place] [facility] [address] [id number] [place] [address] Feb, [facility] [place] [facility] [address] [id number] [place] [address] Feb, [facility] [place] [facility] [address] [id number] [place] [address] Feb, [facility] [place] [facility] [address] [id number] [place] [address] Feb, [facility] [place] [facility] [address] [id number] [place] [address] Feb, [facility] [place] [facility] [address] [id number] [place] [address] Jan, [facility] [place] [facility] [address] [id number] [place] [address] Jan, [facility] [place] [facility] [address] [id number] [place] [address] Jan, [facility] [place] [facility] [address] [id number] [place] [address] Jan, [facility] [place] [facility] [address] [id number] [place] [address] Jan, [facility] [place] [facility] [address] [id number] [place] [address] Nov, [facility] [place] [facility] [address] [id number] [place] [address] Nov, [facility] [place] [facility] [address] [id number] [place] [address] Nov, [facility] [place] [facility] [address] [id number] [place] [address] Nov, [facility] [place] [facility] [address] [id number] [place] [address] Nov, [facility] [place] [facility] [address] [id number] [place] [address] Nov, [facility] [place] [facility] [address] [id number] [place] [address] Oct, [facility] [place] [facility] [address] [id number] [place] [address] Oct, [facility] [place] [facility] [address] [id number] [place] [address] Oct, [facility] [place] [facility] [address] [id number] [place] [address] Oct, [facility] [place] [facility] [address] [id number] [place] [address] Oct, [facility] [place] [facility] [address] [id number] [place] [address] Oct, [facility] [place] [facility] [address] [id number] [place] [address] Oct, [facility] [place] [facility] [address] [id number] [place] [address] September, [facility] [place] [facility] [address] [id number] [place] [address] September, [facility] [place] [facility] [address] [id number] [place] [address] September, [facility] [place] [facility] [address] [id number] [place] [address] September, [facility] [place] [facility] [address] [id number] [place] [address] September, [facility] [place] [facility] [address] [id number] [place] [address] September, [facility] [place] [facility] [address] [id number] [place] [address] September, [facility] [place] [facility] [address] [id number] [place] [address] September, [facility] [facility] [address] [id number] [place] [address] Aug, [facility] [place] [facility] [address] [id number] [place] [address] Aug, [facility] [place] [facility] [address] [id number] [place] [address] Aug, [facility] [place] [facility] [address] [id number] [place] [address] Aug, [facility] [place] [facility] [address] [id number] [place] [address] Jul, [facility] [place] [facility] [address] [id number] [place] [address] Jul, [facility] [place] [address] [id number] [place] [address] Jun, [facility] [address] [id number] [place] [address] Jun, [facility] [place] [facility] [address] [id number] [place] [address] Jun, [facility] [address] [id number] [place] [address] Jun, [facility] [address] [id number] [place] [address] Jun, [facility] [place] [facility] [address] [id number] [place] [address] Jun, [facility] [place] [facility] [address] [id number] [place] [address] May, [facility] [address] [id number] [place] [address] May, [facility] [facility] [address] [id number] [place] [address] May, [facility] [place] [facility] [address] [id number] [place] [address] May, [facility] [address] [id number] [place] [address] May, [facility] [address] [id number] [place] [address] May, [facility] [address] [id number] [place] [address] Feb, [facility] [address] [id number] [place] [address] Feb, [facility] [address] [id number] [place] [address] Feb, [facility] [address] [id number] [place] [address] Feb, [facility] [address] [id number] [place] [address] Jan, [facility] [address] [id number] [place] [address] Jan, [facility] [address] [id number] [place] [address] Jan, [facility] [address] [id number] [place] [address] Dec, [facility] [address] [id number] [place] [address] Nov, [facility] [address] [id number] [place] [address] Nov, [facility] [address] [id number] [place] [address] Nov, [facility] [address] [id number] [place] [address] Nov, [facility] [address] [id number] [place] [address] Nov, [facility] [address] [id number] [place] [address] Oct, [facility] [address] [id number] [place] [address] September, [facility] [address] [id number] [place] [address] September, [facility] [address] [id number] [place] [address] Aug, [facility] [address] [id number] [place] [address] Aug, [facility] [address] [id number] [place] [address] Jul, [facility] [address] [id number] [place] [address] Jul, [facility] [address] [id number] [place] [address] Jul, [facility] [address] [id number] [place] [address] Jul, [facility] [address] [id number] [place] [address] Jun, [facility] [address] [id number] [place] [address] Jun, [facility] [address] [id number], [place] [address] Jun, [facility] [address] [id number] [place] [address] May, [facility] [address] [id number] [place] [address] May, [facility] [address] [id number] [place] [address] May, [facility] [address] [id number] [place] [address] May, [facility] [address] [id number] [place] [address] Apr, [facility] [address] [id number] [place] [address] Apr, [facility] [address] [id number] [place] [address] Apr, [facility] [address] [id number] [place] [address] Apr, [facility] [address] [id number] [place] [address] Apr, [facility] [address] [id number] [place] [address] Apr, [facility] [address] [id number] [place] [address] Mar, [facility] [address] [id number] [place] [address] Mar, [facility] [address] [id number] [place] [address] Mar, [facility] [address] [facility] [id number] [place] [address] Mar, [facility] [address] [id number] [place] [address] Mar, [facility] [address] [id number], [place] [address] Mar, [facility] [address] [id number] [place] [address] Feb, [facility] [address] [facility] [id number] [place] [address] Feb, [facility] [address] [facility] [id number], [place] [address] Feb, [facility] [address] [id number] [place] [address] Feb, [facility] [address] [id number] [place] [address] Jan, [facility] [address] [id number] [place] [address] Jan, [facility] [address] [id number] [place] [address] Jan, [facility] [address] [id number] [place] [address] Jan, [facility] [address] [id number] [place] [address] Dec, [facility] [address] [id number] [place] [address] Dec, [facility] [address] [id number] [place] [address] Nov, [facility] [address] [id number] [place] [address] Oct, [facility] [address] [id number] [place] [address] Oct, [facility] [address] [id number] [place] [address] Oct, [facility] [address] [id number] [place] [address] September, [facility] [address] [id number] [place] [address] September, [facility] [address] [id number] [place] [address] September, [facility] [address] [id number] [place] [address] September, [facility] [address] [id number] [place] [address] September, [facility] [address] [id number] [place] [address] September, [facility] [address] [id number] [place] [address] September, [facility] [address] [id number] [place] [address] Jul, [facility] [address] [id number] [place] [address] Jul, [facility] [address] [id number] [place] [address] Jun, [facility] [address] [id number] [place] [address] Jun, [facility] [address] [id number] [place] [address] Jun, [facility] [address] [id number] [place] [address] May, [facility] [address] [id number] [place] [address] Mar, [facility] [address] [id number] [place] [address] Mar, [facility] [address] [id number] [place] [address] 14 Mar, 2011 [facility] [address] [id number] [place] [address] 31 Feb, 2011 [facility] [address] [id number] [place] [address] 18 Feb, 2011 [facility] [address] [id number] [place] [address] 13 Dec, 2009 [facility] [address] [id number] [place] [address] 15 May, 2009 [facility] [address] [facility] [id number], [place] [address] Apr, [facility] [address] [id number], [place] [address] Apr, [facility] [address] [id number], [place] [address] Apr, [facility] [address] [id number], [place] [address] Apr, [facility] [address] [id number], [place] [address] Feb, [facility] [address] [id number], [place] [address] Oct, IMMUNIZATIONS No Known Immunizations SOCIAL HISTORY Never Assessed REASON FOR VISIT Lab results PLAN OF CARE VITAL SIGNS MEDICATIONS Unknown [...] 5th toe removal 06/25/2009 Hospitalization History pneumonia, hypoxia-[facility] 11/03/16
--- OUTSIDE RECORDS SUMMARY | 2018-12-05 11:44 | XMS REPORT ---
Author Author ERIK SAMAYOA Organization [facility] Address [address] [place] [address] Care Team Providers Care Gutter Hanger Name Role Phone ERIK SAMAYOA Unavailable PROBLEMS Type Condition ICD9-CM Code LYX69-BL Code Onset Dates Condition Status SNOMED Code Problem Mood disorder F39 Active 27875184 Problem PVD (peripheral vascular disease) I73.9 Active 424516309 Problem Amput leg, unil NOS-comp S88.919A Active 85309275 Problem Acute cystitis with hematuria N30.01 Active 45580206 Problem Major depressive disorder, single episode, unspecified F32.9 Active 18203952 Problem Anticoagulant long-term use Z79.01 Active 509028798 Problem Vitamin B12 deficiency E53.8 Dec, Active 321951055 Problem Chronic obstructive pulmonary disease, unspecified COPD type J44.9 Active 13048613 Problem Congestive heart failure, unspecified congestive heart failure chronicity, unspecified congestive heart failure type I50.9 Active 17619665 Problem Chronic fatigue, unspecified R53.82 Active 007759586 Problem Peripheral vascular disease I73.9 Active 465777863 Problem Chronic fatigue R53.82 Active 64151631 ALLERGIES No Information ENCOUNTERS Encounter Location Date Diagnosis [facility] [id number] [address] Feb, [facility] [id number] [place] [address] Feb, Vitamin B12 deficiency E53.8 [facility] [id number] [place] [address] Feb, Vitamin B12 deficiency E53.8 [facility] [id number] [address] Feb, Vitamin B12 deficiency E53.8 and Anticoagulant long-term use Z79.01 [place] [id number] [place] [address] Jan, Anticoagulant long-term use Z79.01 [place] [id number] [place] [address] Jan, Vitamin B12 deficiency E53.8 [facility] [id number] [place] [address] Jan, Anticoagulant long-term use Z79.01 [facility] [id number] [place] [address] Jan, Major depressive disorder, single episode, unspecified F32.9 [facility] [id number] [place] [address] Jan, [facility] [id number] [place] [address] Jan, Anticoagulant long-term use Z79.01 [place] [facility] [id number] [place] [address] Dec, Anticoagulant long-term use Z79.01 [facility] [id number] [place] [address] Dec, Vitamin B12 deficiency E53.8 [facility] [id number] [place] [address] Dec, Major depressive disorder, single episode, unspecified F32.9 [facility] [id number] [place] [address] Nov, Vitamin B 12 deficiency E53.8 [facility] [id number] [place] [address] Nov, Anticoagulant long-term use Z79.01 ; Mood disorder F39 ; Chronic obstructive pulmonary disease, unspecified COPD type J44.9 ; Peripheral vascular disease I73.9 and Chronic fatigue R53.82 [place] [id number] [place] [address] Nov, Mood disorder F39 [facility] [id number] [place] [address] Nov, [facility] [place] [id number] [place] [address] Oct, Mood disorder F39 ; Chronic obstructive pulmonary disease, unspecified COPD type J44.9 ; Peripheral vascular disease I73.9 and Chronic fatigue R53.82 [place] [address] [address] September, Anticoagulant long-term use Z79.01 and Congestive heart failure, unspecified congestive heart failure chronicity, unspecified congestive heart failure type I50.9 [place] [id number] [place] [address] September, Vitamin B12 deficiency E53.8 [place] [address] [address] September, Anticoagulant long-term use Z79.01 [place] [facility] [id number] [place] [address] September, Anticoagulant long-term use Z79.01 and Congestive heart failure, unspecified congestive heart failure chronicity, unspecified congestive heart failure type I50.9 [place] [id number] [place] [address] Aug, Chronic fatigue, unspecified R53.82 [place] [id number] [place] [address] Aug, Anticoagulant long-term use Z79.01 [place] [id number] [place] [address] Aug, Nausea R11.0 and Weakness R53.1 [place] [id number] [place] [address] Aug, [facility] [id number] [place] [address] Aug, Hematuria R31.9 and Acute cystitis with hematuria N30.01 [place] [id number] [place] [address] Aug, [place] [id number] [place] [address] Jul, Vitamin B 12 deficiency E53.8 [place] [address] [address] Jul, Anticoagulant long-term use Z79.01 [place] [id number] [place] [address] Jun, Chronic fatigue, unspecified R53.82 [place] [id number] [place] [address] Jun, Anticoagulant long-term use Z79.01 [place] [id number] [place] [address] May, Flu-like symptoms R68.89 and Influenza A J10.1 [id number] [place] [address] May, [place] [id number] [place] [address] May, Chronic fatigue, unspecified R53.82 [facility] [id number] [place] [address] May, Anticoagulant long-term use Z79.01 [facility] [id number] [place] [address] 15 Apr, 2017 Medicare welcome exam Z00.00 ; Anticoagulant long-term use Z79.01 ; Medicare annual wellness visit, initial Z00.00 ; Medicare annual wellness visit, subsequent Z00.00 and Chronic fatigue, unspecified R53.82 [place] [id number] [place] [address] Mar, Chronic fatigue, unspecified R53.82 [facility] [id number] [address] Mar, Anticoagulant long-term use Z79.01 [facility] [id number] [place] [address] Mar, Anticoagulant long-term use Z79.01 and Hematuria R31.9 [facility] [id number] [place] [address] Mar, Hematuria R31.9 [facility] [id number] [place] [address] Feb, Anticoagulant long-term use Z79.01 [place] [id number] [place] [address] Feb, Anticoagulant long-term use Z79.01 [place] [id number] [place] [address] Feb, Anticoagulant long-term use Z79.01 [place] [id number] [place] [address] Feb, Chronic fatigue, unspecified R53.82 [place] [id number] [place] [address] Feb, Anticoagulant long-term use Z79.01 [place] [id number] [place] [address] Feb, Congestive heart failure, unspecified congestive heart failure chronicity, unspecified congestive heart failure type I50.9 [place] [id number] [place] [address] Feb, Congestive heart failure, unspecified congestive heart failure chronicity, unspecified congestive heart failure type I50.9 [facility] [id number] [place] [address] Feb, [place] [id number] [place] [address] Jan, Anticoagulant long-term use Z79.01 [place] [id number] [place] [address] Jan, [place] [id number] [place] [address] Jan, Anticoagulant long-term use Z79.01 and Hematuria R31.9 [place] [address] [address] Jan, Anticoagulant long-term use Z79.01 [place] [id number] [place] [address] Jan, Chronic fatigue, unspecified R53.82 [place] [address] [address] Jan, Anticoagulant long-term use Z79.01 [place] [id number] [place] [address] Dec, Chronic fatigue, unspecified R53.82 [place] [id number] [place] [address] Dec, [place] [id number] [place] [address] Dec, Chronic fatigue, unspecified R53.82 and Encounter for therapeutic drug level monitoring Z51.81 [place] [id number] [place] [address] Nov, Encounter for therapeutic drug level monitoring Z51.81 [place] [id number] [place] [address] Nov, Hematuria R31.9 [place] [id number] [place] [address] Nov, Hematuria R31.9 ; Anticoagulant long-term use Z79.01 and PVD (peripheral vascular disease) I73.9 [place] [id number] [place] [address] Nov, Anticoagulant long-term use Z79.01 [facility] [id number] [place] [address] Nov, Anticoagulant long-term use Z79.01 [facility] [id number] [place] [address] Nov, [place] [id number] [place] [address] Nov, Hematuria R31.9 and Acute cystitis with hematuria N30.01 [facility] [id number] [place] [id number] Oct, [place] [id number] [place] [address] Oct, [place] [id number] [place] [address] Oct, Hematuria R31.9 [place] [id number] [place] [address] Oct, Hematuria R31.9 [place] [id number] [place] [address] Oct, Anticoagulant long-term use Z79.01 [facility] [id number] [place] [address] Oct, Anticoagulant long-term use Z79.01 [facility] [id number] [place] [address] Oct, [facility] [id number] [place] [address] September, PVD (peripheral vascular disease) I73.9 ; Amput leg, unil NOS-comp S88.919A ; Acute cystitis without hematuria N30.00 ; Anticoagulant long-term use Z79.01 and Hypokalemia E87.6 [place] [id number] [place] [address] Aug, Anticoagulant long-term use Z79.01 and Bronchitis J40 [facility] [address] [address] Jul, [facility] [address] [address] Jul, Anticoagulant long-term use Z79.01 and Mood disorder F39 [facility] [address] [address] Jul, [facility] [address] [address] May, [place] [address] [address] May, Hypokalemia E87.6 [place] [address] [address] May, Mood disorder F39 [place] [address] [address] May, Anticoagulant long-term use Z79.01 [place] [address] [address] Apr, Anticoagulant long-term use Z79.01 [place] [address] [address] Apr, Anticoagulant long-term use Z79.01 [place] [id number] [place] [address] Apr, [place] [address] [address] Apr, Anticoagulant long-term use Z79.01 [place] [id number] [place] [address] Apr, Anticoagulant long-term use Z79.01 [place] [address] [address] Apr, Anticoagulant long-term use Z79.01 [facility] [id number] [place] [address] Mar, [facility] [id number] [place] [address] Mar, [facility] [id number] [place] [address] Mar, Anticoagulant long-term use Z79.01 [facility] [id number] [place] [address] Feb, [facility] [address] [address] Feb, [facility] [id number] [place] [address] Feb, Anticoagulant long-term use Z79.01 [facility] [id number] [place] [address] Feb, Anticoagulant long-term use Z79.01 [facility] [id number] [place] [address] Jan, [facility] [id number] [place] [address] Jan, Anticoagulant long-term use Z79.01 [facility] [id number] [place] [address] Jan, Anticoagulant long-term use Z79.01 [facility] [id number] [place] [address] Dec, Anticoagulant long-term use Z79.01 [facility] [id number] [place] [address] Dec, Anticoagulant long-term use Z79.01 [facility] [id number] [place] [address] Dec, Anticoagulant long-term use Z79.01 and Mood disorder F39 [facility] [id number] [place] [address] Dec, [facility] [id number] [place] [address] Nov, [facility] [id number] [place] [address] Nov, Anticoagulant long-term use Z79.01 [facility] [id number] [place] [address] Nov, Anticoagulant long-term use Z79.01 [place] [id number] [place] [address] September, Anticoagulant long-term use Z79.01 [place] [id number] [place] [address] Jul, Anticoagulant long-term use Z79.01 [place] [id number] [place] [address] May, Anticoagulant long-term use Z79.01 [place] [id number] [place] [address] May, Anticoagulant long-term use Z79.01 [place] [id number] [place] [address] May, Anticoagulant long-term use Z79.01 [place] [id number] [place] [address] May, Anticoagulant long-term use Z79.01 [place] [id number] [place] [address] May, [place] [id number] [place] [address] May, Congestive heart failure, unspecified congestive heart failure chronicity, unspecified congestive heart failure type I50.9 and Pulmonary congestion R09.89 [place] [id number] [place] [address] Apr, Cough R05 ; Congestive heart failure, unspecified congestive heart failure chronicity, unspecified congestive heart failure type I50.9 and Pulmonary congestion R09.89 [facility] [address] [address] Mar, Hematuria R31.9 [facility] [address] [address] Mar, [place] [address] [address] Mar, Anticoagulant long-term use Z79.01 [place] [address] [address] Mar, [place] [address] [address] Mar, Hematuria R31.9 and Infective urethritis N34.2 [place] [address] [address] Mar, Anticoagulant long-term use Z79.01 [place] [address] [address] Mar, Anticoagulant long-term use Z79.01 [place] [address] [address] Mar, [facility] [address] [address] Mar, Anticoagulant long-term use Z79.01 [place] [address] [address] Feb, Peristomal skin breakdown L98.499 [facility] [address] [address] Feb, [place] [address] [address] Feb, UTI (urinary tract infection) N39.0 [facility] [id number] [address] Jan, [facility] [address] [address] Dec, High risk medication use V58.69 [facility] [address] [address] Nov, High risk medication use V58.69 [facility] [id number] [address] Nov, [facility] [address] [address] Nov, UTI (lower urinary tract infection) 599.0 ; URI, acute 465.9 ; Insomnia 780.52 ; Anxiety 300.00 and Lower limb amputation, unspecified level V49.70 [facility] [id number] [address] Oct, UTI (lower urinary tract infection) 599.0 ; URI, acute 465.9 ; Insomnia 780.52 ; Anxiety 300.00 and Lower limb amputation, unspecified level V49.70 [facility] [id number] [address] Aug, [facility] [id number] [address] Aug, [facility] [id number] [address] Jul, [facility] [id number] [address] Jul, [facility] [id number] [address] Jun, [facility] [id number] [address] Jun, [facility] [place] [facility] [address] [id number] [place] [address] Mar, [facility] [place] [facility] [address] [id number] [place] [address] Mar, [facility] [place] [facility] [address] [id number] [place] [address] Mar, [facility] [place] [facility] [address] [id number] [place] [address] Mar, [facility] [place] [facility] [address] [id number] [place] [address] Mar, [facility] [place] [facility] [address] [id number] [place] [address] Feb, [facility] [place] [facility] [address] [id number] [place] [address] Feb, [facility] [place] [facility] [address] [id number] [place] [address] Feb, [facility] [place] [facility] [address] [id number] [place] [address] Feb, [facility] [place] [facility] [address] [id number] [place] [address] Feb, [facility] [place] [facility] [address] [id number] [place] [address] Feb, [facility] [place] [facility] [address] [id number] [address] Feb, [facility] [place] [facility] [address] [id number] [place] [address] Feb, [facility] [place] [facility] [address] [id number] [place] [address] Feb, [facility] [place] [facility] [address] [id number] [place] [address] Feb, [facility] [place] [facility] [address] [id number] [address] Feb, [facility] [place] [facility] [address] [id number] [place] [address] Feb, [facility] [place] [facility] [address] [id number] [place] [address] Feb, [facility] [place] [facility] [address] [id number] [place] [address] Feb, [facility] [place] [facility] [address] [id number] [place] [address] Feb, [facility] [place] [facility] [address] [id number] [place] [address] Feb, [facility] [place] [facility] [address] [id number] [place] [address] Jan, [facility] [place] [facility] [address] [id number] [place] [address] Jan, [facility] [place] [facility] [address] [id number] [place] [address] Jan, [facility] [place] [facility] [address] [id number] [place] [address] Jan, [facility] [place] [facility] [address] [id number] [place] [address] Jan, [facility] [place] [facility] [address] [id number] [place] [address] Nov, [facility] [place] [facility] [address] [id number] [place] [address] Nov, [facility] [place] [facility] [address] [id number] [place] [address] Nov, [facility] [place] [facility] [address] [id number] [place] [address] Nov, [facility] [place] [facility] [address] [id number] [place] [address] Nov, [facility] [place] [facility] [address] [id number] [place] [address] Nov, [facility] [place] [facility] [address] [id number] [place] [address] Oct, [facility] [place] [facility] [address] [id number] [place] [address] Oct, [facility] [place] [facility] [address] [id number] [place] [address] Oct, [facility] [place] [facility] [address] [id number] [place] [address] Oct, [facility] [place] [facility] [address] [id number] [place] [address] Oct, [facility] [place] [facility] [address] [id number] [place] [address] Oct, [facility] [place] [facility] [address] [id number] [place] [address] Oct, [facility] [place] [facility] [address] [id number] [place] [address] September, [facility] [place] [facility] [address] [id number] [place] [address] September, [facility] [place] [facility] [address] [id number] [place] [address] September, [facility] [place] [facility] [address] [id number] [place] [address] September, [facility] [place] [facility] [address] [id number] [place] [address] September, [facility] [place] [facility] [address] [id number] [place] [address] September, [facility] [place] [facility] [address] [id number] [place] [address] September, [facility] [place] [facility] [address] [id number] [place] [address] September, [facility] [place] [facility] [address] [id number] [place] [address] Aug, [facility] [place] [facility] [address] [id number] [place] [address] Aug, [facility] [place] [facility] [address] [id number] [place] [address] Aug, [facility] [place] [facility] [address] [id number] [place] [address] Aug, [facility] [place] [facility] [address] [id number] [place] [address] Jul, [facility] [place] [facility] [address] [id number] [place] [address] Jul, [facility] [place] [facility] [address] [id number] [place] [address] Jun, [facility] [place] [facility] [address] [id number] [place] [address] Jun, [facility] [place] [facility] [address] [id number] [place] [address] Jun, [facility] [place] [facility] [address] [id number] [place] [id number] Jun, [facility] [place] [facility] [address] [id number] [place] [address] Jun, [facility] [place] [facility] [address] [id number] [place] [address] Jun, [facility] [place] [facility] [address] [id number] [place] [address] May, [facility] [place] [facility] [address] [id number] [place] [address] May, [facility] [place] [facility] [address] [id number] [place] [address] May, [facility] [place] [facility] [address] [id number] [place] [address] May, [facility] [address] [id number] [place] [address] May, [facility] [address] [id number] [place] [address] May, [facility] [address] [id number] [place] [address] Feb, [facility] [address] [id number] [place] [address] Feb, [facility] [address] [id number] [place] [address] Feb, [facility] [address] [id number] [place] [address] Feb, [facility] [address] [id number] [place] [address] Jan, [facility] [address] [id number] [place] [address] Jan, [facility] [address] [id number] [place] [address] Jan, [facility] [address] [id number] [place] [address] Dec, [facility] [place] [facility] [address] [id number] [place] [address] Nov, [facility] [address] [id number] [place] [address] Nov, [facility] [place] [facility] [address] [id number] [place] [address] Nov, [facility] [place] [facility] [address] [id number] [place] [address] Nov, [facility] [place] [facility] [address] [id number] [place] [address] Nov, [facility] [address] [id number] [place] [address] Oct, [facility] [address] [id number] [place] [address] September, [facility] [address] [id number] [place] [address] September, [facility] [address] [id number] [place] [address] Aug, [facility] [address] [id number] [place] [address] Aug, [facility] [address] [id number] [place] [address] Jul, [facility] [address] [id number] [place] [address] Jul, [facility] [address] [id number] [place] [address] Jul, [facility] [address] [id number] [place] [address] Jul, [facility] [address] [id number] [place] [address] Jun, [facility] [place] [facility] [address] [id number] [place] [address] Jun, [facility] [place] [facility] [address] [id number] [address] Jun, [facility] [place] [facility] [address] [id number] [place] [address] May, [facility] [place] [facility] [address] [id number] [place] [address] May, [facility] [place] [facility] [address] [id number] [place] [address] May, [facility] [place] [facility] [address] [id number] [place] [address] May, [facility] [place] [facility] [address] [id number] [place] [address] Apr, [facility] [place] [facility] [address] [id number] [place] [address] Apr, [facility] [place] [facility] [address] [id number] [place] [address] Apr, [facility] [place] [facility] [address] [id number] [place] [address] Apr, [facility] [place] [facility] [address] [id number] [place] [address] Apr, [facility] [place] [facility] [address] [id number] [place] [address] Apr, [facility] [place] [facility] [address] [id number] [place] [address] Mar, [facility] [place] [facility] [address] [id number] [place] [address] Mar, [facility] [place] [facility] [address] [id number] [place] [address] Mar, [facility] [place] [facility] [address] [facility] [id number] [place] [address] Mar, [facility] [place] [facility] [address] [id number] [place] [address] Mar, [facility] [place] [facility] [address] [id number] [address] Mar, [facility] [place] [facility] [address] [id number] [place] [address] Feb, [facility] [place] [facility] [address] [facility] [id number] [place] [address] Feb, [facility] [place] [facility] [address] [facility] [id number] [address] Feb, [facility] [place] [facility] [address] [id number] [place] [address] Feb, [facility] [place] [facility] [address] [id number] [place] [address] Jan, [facility] [place] [facility] [address] [id number] [place] [address] Jan, [facility] [place] [facility] [address] [id number] [place] [address] Jan, [facility] [place] [facility] [address] [id number] [place] [address] Jan, [facility] [place] [facility] [address] [id number] [place] [address] Dec, [facility] [place] [facility] [address] [id number] [place] [address] Dec, [facility] [place] [facility] [address] [id number] [place] [address] Nov, [facility] [place] [facility] [address] [id number] [place] [address] Oct, [facility] [place] [facility] [address] [id number] [place] [address] Oct, [facility] [place] [facility] [address] [id number] [place] [address] Oct, [facility] [place] [facility] [address] [id number] [place] [address] September, [facility] [place] [facility] [address] [id number] [place] [address] September, [facility] [place] [facility] [address] [id number] [place] [address] September, [facility] [place] [facility] [address] [id number] [place] [address] September, [facility] [place] [facility] [address] [id number] [place] [address] September, [facility] [place] [facility] [address] [id number] [place] [address] September, [facility] [place] [facility] [address] [id number] [place] [address] September, [facility] [place] [facility] [address] [id number] [place] [address] Jul, [facility] [place] [facility] [address] [id number] [place] [address] Jul, [facility] [place] [facility] [address] [id number] [place] [address] Jun, [facility] [place] [facility] [address] [id number] [place] [address] Jun, [facility] [place] [facility] [address] [id number] [place] [address] Jun, [facility] [place] [facility] [address] [id number] [place] [address] May, [facility] [place] [facility] [address] [id number] [place] [address] Mar, [facility] [place] [facility] [address] [id number] [place] [address] Mar, [facility] [place] [facility] [address] [id number] [place] [address] 14 Mar, 2011 [facility] [place] [facility] [address] [id number] [place] [address] 31 Feb, 2011 [facility] [place] [facility] [address] [id number] [place] [address] 18 Feb, 2011 [facility] [place] [facility] [address] [id number] [place] [address] 13 Dec, 2009 [facility] [place] [facility] [address] [id number] [place] [address] 15 May, 2009 [facility] [place] [facility] [address] [facility] [id number] [place] [address] Apr, [facility] [address] [facility] [id number] [place] [address] Apr, [facility] [address] [id number] [place] [address] Apr, [facility] [address] [facility] [id number] [place] [address] Apr, [facility] [address] [id number] [place] [address] Feb, [facility] [address] [facility] [id number] [place] [address] Oct, IMMUNIZATIONS No Known Immunizations SOCIAL HISTORY Never Assessed REASON FOR VISIT Lab (walk-in) PLAN OF CARE Activity Details Pending Test INR (IN HOUSE) Pending Test VITAMIN B12 VITAL SIGNS MEDICATIONS Unknown Medications RESULTS No Results PROCEDURES Procedure Date Ordered Result Body Site PROTHROMBIN TIME Feb 27, 2018 LAB NOT BILLED BY [facility] Feb 27, 2018 VENIPUNCT, ROUTINE* Feb 27, 2018 INSTRUCTIONS MEDICATIONS ADMINISTERED No [...]
--- OUTSIDE RECORDS SUMMARY | 2018-12-05 11:45 | XMS REPORT ---
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 Name Role Phone ERIK SAMAYOA Unavailable PROBLEMS Type Condition ICD9-CM Code LGT20-XP Code Onset Dates Condition Status SNOMED Code Problem Mood disorder F39 Active 50242710 Problem PVD (peripheral vascular disease) I73.9 Active 919723026 Problem Amput leg, unil NOS-comp S88.919A Active 63856691 Problem Acute cystitis with hematuria N30.01 Active 82417641 Problem Major depressive disorder, single episode, unspecified F32.9 Active 66956319 Problem Anticoagulant long-term use Z79.01 Active 404558418 Problem Vitamin B12 deficiency E53.8 Dec, Active 114008828 Problem Chronic obstructive pulmonary disease, unspecified COPD type J44.9 Active 95221705 Problem Congestive heart failure, unspecified congestive heart failure chronicity, unspecified congestive heart failure type I50.9 Active 51796969 Problem Chronic fatigue, unspecified R53.82 Active 260101802 Problem Peripheral vascular disease I73.9 Active 111133883 Problem Chronic fatigue R53.82 Active 97461720 ALLERGIES Substance Reaction Event Type Date Status Penicillin V Potassium Unknown Drug Allergy Jan, Active Morphine Sulfate Unknown Drug Allergy Jan, Active Codeine Sulfate Unknown Drug Allergy Jan, Active Aspir-81 Unknown Drug Allergy Jan, Active ENCOUNTERS Encounter Location Date Diagnosis [facility] [address] [facility] [id number], [place] [address] Jan, Anticoagulant long-term use Z79.01 [facility] [address] [facility] [id number], [place] [address] Jan, Vitamin B12 deficiency E53.8 [facility] [address] [facility] [id number], [place] [address] Jan, Anticoagulant long-term use Z79.01 [facility] [address] [address] Jan, Major depressive disorder, single episode, unspecified F32.9 [facility] [id number] [place] [address] Jan, [facility] [id number] [place] [address] Jan, Anticoagulant long-term use Z79.01 [facility] [id number] [place] [address] Dec, Anticoagulant long-term use Z79.01 [facility] [id number] [place] [address] Dec, Vitamin B12 deficiency E53.8 [facility] [id number] [place] [address] Dec, Major depressive disorder, single episode, unspecified F32.9 [facility] [id number] [place] [address] Nov, Vitamin B 12 deficiency E53.8 [facility] [id number] [place] [address] Nov, Anticoagulant long-term use Z79.01 ; Mood disorder F39 ; Chronic obstructive pulmonary disease, unspecified COPD type J44.9 ; Peripheral vascular disease I73.9 and Chronic fatigue R53.82 [facility] [id number] [place] [address] Nov, Mood disorder F39 [facility] [id number] [place] [address] Nov, [facility] [id number] [place] [address] Oct, Mood disorder F39 ; Chronic obstructive pulmonary disease, unspecified COPD type J44.9 ; Peripheral vascular disease I73.9 and Chronic fatigue R53.82 [place] [id number] [place] [address] September, Anticoagulant long-term use Z79.01 and Congestive heart failure, unspecified congestive heart failure chronicity, unspecified congestive heart failure type I50.9 [facility] [id number] [place] [address] September, Vitamin B12 deficiency E53.8 [facility] [address] [address] September, Anticoagulant long-term use Z79.01 [facility] [address] [address] September, Anticoagulant long-term use Z79.01 and Congestive heart failure, unspecified congestive heart failure chronicity, unspecified congestive heart failure type I50.9 [facility] [address] [address] Aug, Chronic fatigue, unspecified R53.82 [facility] [address] [address] Aug, Anticoagulant long-term use Z79.01 [facility] [address] [address] Aug, Nausea R11.0 and Weakness R53.1 [place] [address] [address] Aug, [facility] [id number] [place] [address] Aug, Hematuria R31.9 and Acute cystitis with hematuria N30.01 [facility] [address] [address] Aug, [facility] [id number] [place] [address] Jul, Vitamin B 12 deficiency E53.8 [facility] [address] [address] Jul, Anticoagulant long-term use Z79.01 [facility] [place] [id number] [place] [address] Jun, Chronic fatigue, unspecified R53.82 [facility] [id number] [place] [address] Jun, Anticoagulant long-term use Z79.01 [facility] [id number] [place] [address] May, Flu-like symptoms R68.89 and Influenza A J10.1 [facility] [address] [address] May, [facility] [id number] [place] [address] May, Chronic fatigue, unspecified R53.82 [facility] [id number] [place] [address] May, Anticoagulant long-term use Z79.01 [facility] [id number] [place] [address] Apr, Medicare welcome exam Z00.00 ; Anticoagulant long-term use Z79.01 ; Medicare annual wellness visit, initial Z00.00 ; Medicare annual wellness visit, subsequent Z00.00 and Chronic fatigue, unspecified R53.82 [facility] [place] [id number] [place] [address] Mar, Chronic fatigue, unspecified R53.82 [facility] [id number] [place] [address] Mar, Anticoagulant long-term use Z79.01 [facility] [id number] [place] [address] Mar, Anticoagulant long-term use Z79.01 and Hematuria R31.9 [facility] [address] [address] Mar, Hematuria R31.9 [facility] [place] [address] [place] [address] Feb, Anticoagulant long-term use Z79.01 [facility] [id number] [place] [address] Feb, Anticoagulant long-term use Z79.01 [facility] [id number] [place] [address] Feb, Anticoagulant long-term use Z79.01 [facility] [id number] [place] [address] Feb, Chronic fatigue, unspecified R53.82 [facility] [id number] [place] [address] Feb, Anticoagulant long-term use Z79.01 [facility] [id number] [place] [address] Feb, Congestive heart failure, unspecified congestive heart failure chronicity, unspecified congestive heart failure type I50.9 [facility] [id number] [place] [address] Feb, Congestive heart failure, unspecified congestive heart failure chronicity, unspecified congestive heart failure type I50.9 [facility] [place] [address] [place] [address] Feb, [facility] [id number] [place] [address] Jan, Anticoagulant long-term use Z79.01 [facility] [id number] [place] [address] Jan, [facility] [id number] [place] [address] Jan, Anticoagulant long-term use Z79.01 and Hematuria R31.9 [facility] [id number] [place] [address] Jan, Anticoagulant long-term use Z79.01 [facility] [address] [place] [address] Jan, Chronic fatigue, unspecified R53.82 [facility] [id number] [place] [address] Jan, Anticoagulant long-term use Z79.01 [facility] [id number] [place] [address] Dec, Chronic fatigue, unspecified R53.82 [facility] [place] [id number] [place] [address] Dec, [facility] [id number] [place] [address] Dec, Chronic fatigue, unspecified R53.82 and Encounter for therapeutic drug level monitoring Z51.81 [facility] [id number] [place] [address] Nov, Encounter for therapeutic drug level monitoring Z51.81 [facility] [id number] [place] [address] Nov, Hematuria R31.9 [facility] [id number] [place] [address] Nov, Hematuria R31.9 ; Anticoagulant long-term use Z79.01 and PVD (peripheral vascular disease) I73.9 [facility] [address] [place] [address] Nov, Anticoagulant long-term use Z79.01 [facility] [id number] [place] [address] Nov, Anticoagulant long-term use Z79.01 [facility] [address] [place] [address] Nov, [facility] [id number] [place] [address] Nov, Hematuria R31.9 and Acute cystitis with hematuria N30.01 [facility] [place] [id number] [place] [id number] Oct, [facility] [id number] [place] [address] Oct, [place] [id number] [place] [address] Oct, Hematuria R31.9 [place] [place] [id number] [place] [address] Oct, Hematuria R31.9 [facility] [address] [address] Oct, Anticoagulant long-term use Z79.01 [place] [address] [address] Oct, Anticoagulant long-term use Z79.01 [place] [id number] [place] [address] Oct, [facility] [place] [id number] [place] [address] September, PVD (peripheral vascular disease) I73.9 ; Amput leg, unil NOS-comp S88.919A ; Acute cystitis without hematuria N30.00 ; Anticoagulant long-term use Z79.01 and Hypokalemia E87.6 [place] [place] [id number] [place] [address] Aug, Anticoagulant long-term use Z79.01 and Bronchitis J40 [facility] [id number] [place] [address] Jul, [place] [id number] [place] [address] Jul, Anticoagulant long-term use Z79.01 and Mood disorder F39 [facility] [address] [place] [address] Jul, [facility] [id number] [place] [address] May, [facility] [id number] [place] [address] May, Hypokalemia E87.6 [facility] [address] [address] May, Mood disorder F39 [facility] [address] [address] May, Anticoagulant long-term use Z79.01 [facility] [address] [address] Apr, Anticoagulant long-term use Z79.01 [facility] [address] [address] Apr, Anticoagulant long-term use Z79.01 [facility] [id number] [place] [address] Apr, [facility] [address] [address] Apr, Anticoagulant long-term use Z79.01 [facility] [id number] [place] [address] Apr, Anticoagulant long-term use Z79.01 [facility] [address] [address] Apr, Anticoagulant long-term use Z79.01 [facility] [address] [address] Mar, [facility] [id number] [place] [address] Mar, [facility] [address] [address] Mar, Anticoagulant long-term use Z79.01 [facility] [id number] [place] [address] Feb, [facility] [id number] [place] [address] Feb, [facility] [id number] [place] [address] Feb, Anticoagulant long-term use Z79.01 [facility] [id number] [place] [address] Feb, Anticoagulant long-term use Z79.01 [facility] [address] [address] Jan, [facility] [address] [address] Jan, Anticoagulant long-term use Z79.01 [facility] [address] [address] Jan, Anticoagulant long-term use Z79.01 [facility] [id number] [place] [address] Dec, Anticoagulant long-term use Z79.01 [facility] [id number] [place] [address] Dec, Anticoagulant long-term use Z79.01 [facility] [id number] [place] [address] Dec, Anticoagulant long-term use Z79.01 and Mood disorder F39 [facility] [id number] [place] [address] Dec, [facility] [id number] [place] [address] Nov, [facility] [id number] [place] [address] Nov, Anticoagulant long-term use Z79.01 [facility] [address], [place] [address] Nov, Anticoagulant long-term use Z79.01 [facility] [id number] [place] [address] September, Anticoagulant long-term use Z79.01 [facility] [id number] [place] [address] Jul, Anticoagulant long-term use Z79.01 [facility] [id number] [place] [address] May, Anticoagulant long-term use Z79.01 [facility] [id number] [place] [address] May, Anticoagulant long-term use Z79.01 [facility] [id number] [place] [address] May, Anticoagulant long-term use Z79.01 [facility] [id number] [place] [address] May, Anticoagulant long-term use Z79.01 [facility] [id number] [place] [address] May, [facility] [address] [place] [address] May, Congestive heart failure, unspecified congestive heart failure chronicity, unspecified congestive heart failure type I50.9 and Pulmonary congestion R09.89 [facility] [id number] [place] [address] Apr, Cough R05 ; Congestive heart failure, unspecified congestive heart failure chronicity, unspecified congestive heart failure type I50.9 and Pulmonary congestion R09.89 [facility] [id number] [place] [address] Mar, Hematuria R31.9 [facility] [address] [place] [address] Mar, [facility] [id number] [place] [address] Mar, Anticoagulant long-term use Z79.01 [facility] [address] [address] Mar, [facility] [address] [address] Mar, Hematuria R31.9 and Infective urethritis N34.2 [place] [place] [address] [address] Mar, Anticoagulant long-term use Z79.01 [place] [address] [address] Mar, Anticoagulant long-term use Z79.01 [place] [address] [address] Mar, [place] [address] [address] Mar, Anticoagulant long-term use Z79.01 [facility] [place] [id number] [place] [address] Feb, Peristomal skin breakdown L98.499 [facility] [id number] [place] [address] Feb, [place] [address] [address] Feb, UTI (urinary tract infection) N39.0 [place] [address] [address] Jan, [facility] [place] [id number] [place] [address] Dec, High risk medication use V58.69 [facility] [address] [address] Nov, High risk medication use V58.69 [facility] [address], [place] [address] Nov, [facility] [address], [place] [address] Nov, UTI (lower urinary tract infection) 599.0 ; URI, acute 465.9 ; Insomnia 780.52 ; Anxiety 300.00 and Lower limb amputation, unspecified level V49.70 [facility] [address] [facility] [id number], [place] [address] Oct, UTI (lower urinary tract infection) 599.0 ; URI, acute 465.9 ; Insomnia 780.52 ; Anxiety 300.00 and Lower limb amputation, unspecified level V49.70 [facility] [address], [place] [address] Aug, [facility] [address], [place] [address] Aug, [facility] [address], [place] [address] Jul, [facility] [address], [place] [address] Jul, [facility] [id number] [address] Jun, [facility] [address], [place] [address] Jun, [facility] [id number] [address] Mar, [facility] [address], [place] [address] Mar, [facility] [id number], [place] [address] Mar, [facility] [address] [place] [address] [place] [address] 05 Mar, 2013 [facility] [place] [facility] [address] [id number] [place] [address] Mar, 2013 [facility] [place] [facility] [address] [id number] [place] [address] Feb, 2013 [facility] [place] [facility] [address] [id number] [place] [address] 30 Feb, 2014 [facility] [place] [facility] [address] [id number] [place] [address] 29 Feb, 2014 [facility] [place] [facility] [address] [id number] [place] [address] Feb, [facility] [place] [facility] [address] [id number] [place] [address] Feb, 2013 [facility] [place] [facility] [address] [id number] [place] [address] Feb, 2013 [facility] [place] [facility] [address] [id number] [place] [address] Feb, [facility] [place] [facility] [address] [id number] [place] [address] Feb, 2013 [facility] [place] [facility] [address] [id number] [place] [address] Feb, [facility] [place] [facility] [address] [id number] [place] [address] Feb, 2013 [facility] [place] [facility] [address] [id number], [place] [address] Feb, 2013 [facility] [place] [facility] [address] [id number], [place] [address] Feb, 2013 [facility] [place] [facility] [address] [id number], [place] [address] Feb, 2013 [facility] [place] [facility] [address] [id number], [place] [address] Feb, 2013 [facility] [place] [facility] [address] [id number] [place] [address] Feb, [facility] [place] [facility] [address] [id number] [place] [address] Feb, [facility] [place] [facility] [address] [id number] [place] [address] Jan, [facility] [place] [facility] [address] [id number] [place] [address] Jan, [facility] [place] [facility] [address] [id number] [place] [address] Jan, [facility] [place] [facility] [address] [id number] [place] [address] Jan, [facility] [place] [facility] [address] [id number] [place] [address] Jan, [facility] [place] [facility] [address] [id number] [place] [address] Nov, [facility] [place] [facility] [address] [id number] [place] [address] Nov, [facility] [place] [facility] [address] [id number] [place] [address] Nov, [facility] [place] [facility] [address] [id number] [place] [address] Nov, [facility] [place] [facility] [address] [id number] [place] [address] Nov, [facility] [place] [facility] [address] [id number] [place] [address] Nov, [facility] [place] [facility] [address] [id number] [place] [address] Oct, [facility] [place] [facility] [address] [id number] [place] [address] Oct, [facility] [place] [facility] [address] [id number] [place] [address] Oct, [facility] [place] [facility] [address] [id number] [place] [address] Oct, [facility] [place] [facility] [address] [id number] [place] [address] Oct, [facility] [place] [facility] [address] [id number] [place] [address] Oct, [facility] [place] [facility] [address] [id number] [place] [address] Oct, [facility] [place] [facility] [address] [id number] [place] [address] September, [facility] [place] [facility] [address] [id number] [place] [address] September, [facility] [place] [facility] [address] [id number] [place] [address] September, [facility] [place] [facility] [address] [id number] [place] [address] September, [facility] [place] [facility] [address] [id number] [place] [address] September, [facility] [place] [facility] [address] [id number] [place] [address] September, [facility] [place] [facility] [address] [id number] [place] [address] September, [facility] [place] [facility] [address] [id number] [place] [address] September, [facility] [place] [facility] [address] [id number] [place] [address] Aug, [facility] [place] [facility] [address] [id number] [place] [address] Aug, [facility] [place] [facility] [address] [id number] [place] [address] Aug, [facility] [place] [facility] [address] [id number] [place] [address] Aug, [facility] [place] [facility] [address] [id number] [place] [address] Jul, [facility] [place] [facility] [address] [id number] [place] [address] Jul, [facility] [place] [facility] [address] [id number] [place] [address] Jun, [facility] [place] [facility] [address] [id number] [place] [address] Jun, [facility] [place] [facility] [address] [id number] [place] [address] Jun, [facility] [place] [facility] [address] [id number] [place] [address] Jun, [facility] [place] [facility] [address] [id number] [place] [address] Jun, [facility] [place] [facility] [address] [id number] [place] [address] Jun, [facility] [place] [facility] [address] [id number] [place] [address] May, [facility] [place] [facility] [address] [id number] [place] [address] May, [facility] [place] [facility] [address] [id number] [place] [address] May, [facility] [place] [facility] [address] [id number] [place] [address] May, [facility] [place] [facility] [address] [id number] [place] [address] May, [facility] [place] [facility] [address] [id number] [place] [address] May, [facility] [place] [facility] [address] [id number] [place] [address] Feb, [facility] [place] [facility] [address] [id number] [place] [address] Feb, [facility] [place] [facility] [address] [id number] [place] [address] Feb, [facility] [place] [facility] [address] [id number] [place] [address] Feb, [facility] [place] [facility] [address] [id number] [place] [address] Jan, [facility] [place] [facility] [address] [id number] [place] [address] Jan, [facility] [place] [facility] [address] [id number] [place] [address] Jan, [facility] [place] [facility] [address] [id number] [place] [address] Dec, [facility] [place] [facility] [address] [id number] [place] [address] Nov, [facility] [place] [facility] [address] [id number] [place] [address] Nov, [facility] [place] [facility] [address] [id number][place] [address] Nov, [facility] [place] [facility] [address] [id number], [place] [address] Nov, [facility] [place] [facility] [address] [id number], [place] [address] Nov, [facility] [place] [facility] [address] [id number] [place] [address] Oct, [facility] [place] [facility] [address] [id number] [place] [address] September, [facility] [place] [facility] [address] [id number] [place] [address] September, [facility] [place] [facility] [address] [id number] [place] [address] 29 Aug, 2012 [facility] [address] [id number] [place] [address] Aug, [facility] [address] [id number] [place] [address] 29 Jul, 2012 [facility] [address] [id number] [place] [address] Jul, [facility] [address] [id number] [place] [address] Jul, [facility] [address] [id number] [place] [address] Jul, [facility] [address] [id number] [place] [address] Jun, [facility] [address] [id number] [place] [address] Jun, [facility] [address] [id number] [place] [address] Jun, [facility] [address] [id number] [place] [address] May, [facility] [address] [id number] [place] [address] May, [facility] [address] [id number] [place] [address] May, [facility] [address] [id number] [place] [address] May, [facility] [place] [facility] [address] [id number] [place] [address] Apr, [facility] [place] [facility] [address] [id number] [place] [address] Apr, [facility] [address] [id number] [place] [address] Apr, [facility] [place] [facility] [address] [id number] [place] [address] Apr, [facility] [place] [facility] [address] [id number] [place] [address] Apr, [facility] [place] [facility] [address] [id number] [place] [address] Apr, [facility] [place] [facility] [address] [id number] [place] [address] Mar, [facility] [place] [facility] [address] [id number] [place] [address] Mar, [facility] [place] [facility] [address] [id number] [place] [address] Mar, [facility] [place] [facility] [address] [facility] [id number] [place] [address] Mar, [facility] [place] [facility] [address] [id number] [place] [address] Mar, [facility] [place] [facility] [address] [id number] [place] [address] Mar, [facility] [place] [facility] [address] [facility] [id number], [place] [address] Feb, [facility] [place] [facility] [address] [facility] [id number], [place] [address] Feb, [facility] [place] [facility] [address] [id number], [place] [address] Feb, [facility] [place] [facility] [address] [id number], [place] [address] Feb, [facility] [place] [facility] [address] [id number], [place] [address] Jan, [facility] [place] [facility] [address] [id number], [place] [address] Jan, [facility] [place] [facility] [address] [id number], [place] [address] 24 Jan, 2012 [facility] [place] [facility] [address] [id number] [place] [address] Jan, [facility] [place] [facility] [address] [id number] [place] [address] Dec, [facility] [place] [facility] [address] [id number] [place] [address] Dec, [facility] [place] [facility] [address] [id number] [place] [address] Nov, [facility] [place] [facility] [address] [id number] [place] [address] Oct, [facility] [place] [facility] [address] [id number] [place] [address] Oct, [facility] [place] [facility] [address] [id number] [place] [address] Oct, [facility] [place] [facility] [address] [id number] [place] [address] September, [facility] [place] [facility] [address] [id number] [place] [address] September, [facility] [place] [facility] [address] [id number] [place] [address] September, [facility] [place] [facility] [address] [id number] [place] [address] September, [facility] [place] [facility] [address] [id number] [place] [address] September, [facility] [place] [facility] [address] [id number] [place] [address] September, [facility] [place] [facility] [address] [id number] [place] [address] September, [facility] [place] [facility] [address] [id number] [place] [address] Jul, [facility] [place] [facility] [address] [id number] [place] [address] 07 Jul, 2011 [facility] [place] [facility] [address] [id number] [place] [address] 28 Jun, 2011 [facility] [place] [facility] [address] [id number] [place] [address] 27 Jun, 2011 [facility] [place] [facility] [address] [id number] [place] [address] 06 Jun, 2011 [facility] [place] [facility] [address] [id number] [place] [address] 10 May, 2011 [facility] [place] [facility] [address] [id number] [place] [address] 29 Mar, 2011 [facility] [place] [facility] [address] [id number] [place] [address] 18 Mar, 2011 [facility] [place] [facility] [address] [id number] [place] [address] 14 Mar, 2011 [facility] [place] [facility] [address] [id number] [place] [address] 31 Feb, 2011 [facility] [place] [facility] [address] [id number] [place] [address] 18 Feb, 2011 [facility] [place] [facility] [address] [id number] [place] [address] 13 Dec, 2009 [facility] [place] [facility] [address] [id number] [place] [address] 15 May, 2009 [facility] [place] [facility] [address] [id number] [place] [address] 29 Apr, 2009 [facility] [place] [facility] [address] [id number] [place] [address] 28 Apr, 2009 [facility] [place] [facility] [address] [id number] [place] [address] 14 Apr, 2009 [facility] [place] [facility] [address] [id number] [place] [address] Apr, [facility] [address] [facility] [id number] [place] [address] Feb, [facility] [address] [facility] [id number] [place] [address] Oct, IMMUNIZATIONS Vaccine Route Administration Date Status B12, VITAMIN (UP TO 1000 MCG) IM Intramuscular Jan 26, 2018 Administered SOCIAL HISTORY Never Assessed REASON FOR VISIT B12 injection--ABoggsLPN PLAN OF CARE VITAL SIGNS MEDICATIONS Unknown Medications RESULTS No Results PROCEDURES Procedure Date Ordered Result Body Site B12, VITAMIN (UP TO 1000 MCG) Jan 26, 2018 THER/PROPH/DIAG INJ, SC/IM Jan 26, 2018 INSTRUCTIONS MEDICATIONS ADMINISTERED No Known Medications [...] 5th toe removal 06/25/2009 Hospitalization History pneumonia, hypoxia-[facility] 11/03/16
--- OUTSIDE RECORDS SUMMARY | 2018-12-05 11:46 | XMS REPORT ---
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 Name Role Phone ERIK SAMAYOA Unavailable PROBLEMS Type Condition ICD9-CM Code USX39-HX Code Onset Dates Condition Status SNOMED Code Problem Mood disorder F39 Active 68811020 Problem PVD (peripheral vascular disease) I73.9 Active 016045022 Problem Amput leg, unil NOS-comp S88.919A Active 72246576 Problem Acute cystitis with hematuria N30.01 Active 80575771 Problem Major depressive disorder, single episode, unspecified F32.9 Active 61895182 Problem Anticoagulant long-term use Z79.01 Active 780846835 Problem Vitamin B12 deficiency E53.8 Dec, Active 750818190 Problem Chronic obstructive pulmonary disease, unspecified COPD type J44.9 Active 13036282 Problem Congestive heart failure, unspecified congestive heart failure chronicity, unspecified congestive heart failure type I50.9 Active 80884389 Problem Chronic fatigue, unspecified R53.82 Active 741844569 Problem Peripheral vascular disease I73.9 Active 790740694 Problem Chronic fatigue R53.82 Active 33197858 ALLERGIES No Information ENCOUNTERS Encounter Location Date Diagnosis [facility] [id number] [address] Jan, Anticoagulant long-term use Z79.01 [facility] [id number], [place] [address] Jan, Vitamin B12 deficiency E53.8 [facility] [id number], [place] [address] Jan, Anticoagulant long-term use Z79.01 [facility] [id number] [address] Jan, Major depressive disorder, single episode, unspecified F32.9 [facility] [facility] [address], [place] [address] Jan, [facility] [id number] [place] [address] Jan, Anticoagulant long-term use Z79.01 [facility] [id number] [place] [address] Dec, Anticoagulant long-term use Z79.01 [facility] [id number] [place] [address] Dec, Vitamin B12 deficiency E53.8 [facility] [id number] [place] [address] Dec, Major depressive disorder, single episode, unspecified F32.9 [facility] [id number] [place] [address] Nov, Vitamin B 12 deficiency E53.8 [facility] [facility] [id number] [place] [address] Nov, Anticoagulant long-term use Z79.01 ; Mood disorder F39 ; Chronic obstructive pulmonary disease, unspecified COPD type J44.9 ; Peripheral vascular disease I73.9 and Chronic fatigue R53.82 [place] [id number] [place] [address] Nov, Mood disorder F39 [facility] [facility] [id number] [place] [address] Nov, [place] [id number] [place] [address] Oct, Mood disorder F39 ; Chronic obstructive pulmonary disease, unspecified COPD type J44.9 ; Peripheral vascular disease I73.9 and Chronic fatigue R53.82 [facility] [id number] [place] [address] September, Anticoagulant long-term use Z79.01 and Congestive heart failure, unspecified congestive heart failure chronicity, unspecified congestive heart failure type I50.9 [facility] [id number] [place] [address] September, Vitamin B12 deficiency E53.8 [facility] [facility] [id number] [place] [address] September, Anticoagulant long-term use Z79.01 [facility] [address] [address] September, Anticoagulant long-term use Z79.01 and Congestive heart failure, unspecified congestive heart failure chronicity, unspecified congestive heart failure type I50.9 [facility] [address] [address] Aug, Chronic fatigue, unspecified R53.82 [facility] [address] [address] Aug, Anticoagulant long-term use Z79.01 [facility] [id number] [place] [address] Aug, Nausea R11.0 and Weakness R53.1 [facility] [facility] [id number] [place] [address] Aug, [facility] [id number] [place] [address] Aug, Hematuria R31.9 and Acute cystitis with hematuria N30.01 [facility] [id number] [place] [address] Aug, [facility] [id number] [place] [address] Jul, Vitamin B 12 deficiency E53.8 [facility] [facility] [id number] [place] [address] Jul, Anticoagulant long-term use Z79.01 [facility] [address] [address] Jun, Chronic fatigue, unspecified R53.82 [facility] [id number] [place] [address] Jun, Anticoagulant long-term use Z79.01 [facility] [facility] [id number] [place] [address] May, Flu-like symptoms R68.89 and Influenza A J10.1 [place] [id number] [place] [address] May, [facility] [id number] [place] [address] May, Chronic fatigue, unspecified R53.82 [facility] [id number] [place] [address] May, Anticoagulant long-term use Z79.01 [facility] [facility] [id number] [place] [address] Apr, Medicare welcome exam Z00.00 ; Anticoagulant long-term use Z79.01 ; Medicare annual wellness visit, initial Z00.00 ; Medicare annual wellness visit, subsequent Z00.00 and Chronic fatigue, unspecified R53.82 [facility] [id number] [place] [address] 15 Mar, 2017 Chronic fatigue, unspecified R53.82 [facility] [facility] [id number] [place] [address] 07 Mar, 2017 Anticoagulant long-term use Z79.01 [facility] [id number] [place] [address] 07 Mar, 2017 Anticoagulant long-term use Z79.01 and Hematuria R31.9 [facility] [facility] [id number] [place] [address] Mar, Hematuria R31.9 [facility] [id number] [place] [address] Feb, Anticoagulant long-term use Z79.01 [facility] [address], [place] [address] Feb, Anticoagulant long-term use Z79.01 [facility] [id number] [place] [address] Feb, Anticoagulant long-term use Z79.01 [facility] [id number] [place] [address] Feb, Chronic fatigue, unspecified R53.82 [facility] [id number] [place] [address] Feb, Anticoagulant long-term use Z79.01 [facility] [id number] [place] [address] Feb, Congestive heart failure, unspecified congestive heart failure chronicity, unspecified congestive heart failure type I50.9 [facility] [id number] [place] [address] Feb, Congestive heart failure, unspecified congestive heart failure chronicity, unspecified congestive heart failure type I50.9 [facility] [id number] [place] [address] Feb, [facility] [id number] [place] [address] Jan, Anticoagulant long-term use Z79.01 [facility] [id number] [place] [address] Jan, [facility] [facility] [id number] [place] [address] Jan, Anticoagulant long-term use Z79.01 and Hematuria R31.9 [facility] [id number] [place] [address] Jan, Anticoagulant long-term use Z79.01 [place] [id number] [place] [address] Jan, Chronic fatigue, unspecified R53.82 [facility] [id number] [place] [address] Jan, Anticoagulant long-term use Z79.01 [facility] [id number] [place] [address] Dec, Chronic fatigue, unspecified R53.82 [facility] [facility] [id number] [place] [address] Dec, [facility] [id number] [place] [address] Dec, Chronic fatigue, unspecified R53.82 and Encounter for therapeutic drug level monitoring Z51.81 [facility] [facility] [id number] [place] [address] Nov, Encounter for therapeutic drug level monitoring Z51.81 [facility] [facility] [id number] [place] [address] Nov, Hematuria R31.9 [facility] [id number] [place] [address] Nov, Hematuria R31.9 ; Anticoagulant long-term use Z79.01 and PVD (peripheral vascular disease) I73.9 [facility] [id number] [place] [address] Nov, Anticoagulant long-term use Z79.01 [facility] [id number] [place] [address] Nov, Anticoagulant long-term use Z79.01 [facility] [id number] [place] [address] Nov, [facility] [id number] [place] [address] Nov, Hematuria R31.9 and Acute cystitis with hematuria N30.01 [place] [address] [id number] Oct, [facility] [id number] [place] [address] Oct, [facility] [id number] [place] [address] Oct, Hematuria R31.9 [facility] [id number] [place] [address] Oct, Hematuria R31.9 [facility] [address] [address] Oct, Anticoagulant long-term use Z79.01 [address] [address] [address] Oct, Anticoagulant long-term use Z79.01 [facility] [id number] [place] [address] Oct, [facility] [id number] [place] [address] September, PVD (peripheral vascular disease) I73.9 ; Amput leg, unil NOS-comp S88.919A ; Acute cystitis without hematuria N30.00 ; Anticoagulant long-term use Z79.01 and Hypokalemia E87.6 [address] [id number] [place] [address] Aug, Anticoagulant long-term use Z79.01 and Bronchitis J40 [facility] [id number] [place] [address] Jul, [facility] [id number] [place] [address] Jul, Anticoagulant long-term use Z79.01 and Mood disorder F39 [place] [id number] [place] [address] Jul, [facility] [id number] [place] [address] May, [facility] [id number] [place] [address] May, Hypokalemia E87.6 [facility] [address] [address] May, Mood disorder F39 [facility] [address] [address] May, Anticoagulant long-term use Z79.01 [facility] [address] [address] Apr, Anticoagulant long-term use Z79.01 [facility] [address] [address] Apr, Anticoagulant long-term use Z79.01 [address] [address] [address] Apr, [facility] [address] [address] Apr, Anticoagulant long-term use Z79.01 [facility] [address] [address] Apr, Anticoagulant long-term use Z79.01 [facility] [id number] [place] [address] Apr, Anticoagulant long-term use Z79.01 [facility] [id number] [place] [address] Mar, [facility] [address] [address] Mar, [facility] [address] [address] Mar, Anticoagulant long-term use Z79.01 [facility] [id number] [place] [address] Feb, [place] [id number] [place] [address] Feb, [facility] [id number] [place] [address] Feb, Anticoagulant long-term use Z79.01 [facility] [id number] [place] [address] Feb, Anticoagulant long-term use Z79.01 [facility] [id number] [place] [address] Jan, [facility] [id number] [place] [address] Jan, Anticoagulant long-term use Z79.01 [facility] [id number] [place] [address] Jan, Anticoagulant long-term use Z79.01 [facility] [id number] [place] [address] Dec, Anticoagulant long-term use Z79.01 [facility] [id number] [place] [address] Dec, Anticoagulant long-term use Z79.01 [facility] [id number] [place] [address] Dec, Anticoagulant long-term use Z79.01 and Mood disorder F39 [facility] [id number] [place] [address] Dec, [facility] [id number] [place] [address] Nov, [facility] [id number] [place] [address] Nov, Anticoagulant long-term use Z79.01 [facility] [id number] [place] [address] Nov, Anticoagulant long-term use Z79.01 [place] [address] [place] [address] September, Anticoagulant long-term use Z79.01 [facility] [id number] [place] [address] Jul, Anticoagulant long-term use Z79.01 [facility] [id number] [place] [address] May, Anticoagulant long-term use Z79.01 [facility] [id number] [place] [address] May, Anticoagulant long-term use Z79.01 [place] [id number] [place] [address] May, Anticoagulant long-term use Z79.01 [place] [id number] [place] [address] May, Anticoagulant long-term use Z79.01 [place] [id number] [place] [address] May, [place] [id number] [place] [address] May, Congestive heart failure, unspecified congestive heart failure chronicity, unspecified congestive heart failure type I50.9 and Pulmonary congestion R09.89 [place] [id number] [place] [address] Apr, Cough R05 ; Congestive heart failure, unspecified congestive heart failure chronicity, unspecified congestive heart failure type I50.9 and Pulmonary congestion R09.89 [place] [id number] [place] [address] Mar, Hematuria R31.9 [place] [id number] [place] [address] Mar, [place] [id number] [place] [address] Mar, Anticoagulant long-term use Z79.01 [facility] [id number] [place] [address] Mar, [facility] [id number] [place] [address] Mar, Hematuria R31.9 and Infective urethritis N34.2 [facility] [address] [address] Mar, Anticoagulant long-term use Z79.01 [facility] [id number] [place] [address] Mar, Anticoagulant long-term use Z79.01 [facility] [id number] [place] [address] Mar, [place] [address] [address] Mar, Anticoagulant long-term use Z79.01 [facility] [id number] [place] [address] Feb, Peristomal skin breakdown L98.499 [place] [id number] [place] [address] Feb, [place] [id number] [place] [address] Feb, UTI (urinary tract infection) N39.0 [place] [id number] [place] [address] Jan, [place] [id number] [place] [address] Dec, High risk medication use V58.69 [place] [id number] [place] [address] Nov, High risk medication use V58.69 [place] [id number] [place] [address] Nov, [facility] [address] [facility] [id number] [address] Nov, UTI (lower urinary tract infection) 599.0 ; URI, acute 465.9 ; Insomnia 780.52 ; Anxiety 300.00 and Lower limb amputation, unspecified level V49.70 [facility] [address] [id number], [place] [address] Oct, UTI (lower urinary tract infection) 599.0 ; URI, acute 465.9 ; Insomnia 780.52 ; Anxiety 300.00 and Lower limb amputation, unspecified level V49.70 [facility] [address] [id number], [place] [address] Aug, [facility] [address] [facility] [id number], [place] [address] Aug, [facility] [address] [facility] [id number], [place] [address] Jul, [facility] [address] [facility] [id number], [place] [address] Jul, [facility] [address] [id number] [address] Jun, [facility] [address] [facility] [id number], [place] [address] Jun, [facility] [address] [facility] [id number], [place] [address] Mar, [facility] [address] [facility] [id number], [place] [address] Mar, [facility] [address] [facility] [id number], [place] [address] Mar, [facility] [address] [facility] [id number], [place] [address] Mar, [facility] [address] [facility] [id number], [place] [address] Mar, [facility] [place] [facility] [address] [id number] [place] [address] Feb, 2013 [facility] [place] [facility] [address] [id number] [place] [address] Feb, [facility] [place] [facility] [address] [id number] [place] [address] Feb, 2013 [facility] [place] [facility] [address] [id number] [place] [address] Feb, 2013 [facility] [place] [facility] [address] [id number] [place] [address] Feb, [facility] [place] [facility] [address] [id number] [place] [address] Feb, [facility] [place] [facility] [address] [id number] [place] [address] Feb, [facility] [place] [facility] [address] [id number] [place] [address] Feb, [facility] [place] [facility] [address] [id number] [place] [address] Feb, [facility] [place] [facility] [address] [id number], [place] [address] Feb, [facility] [place] [facility] [address] [id number], [place] [address] Feb, [facility] [place] [facility] [address] [id number], [place] [address] Feb, [facility] [place] [facility] [address] [id number], [place] [address] Feb, [facility] [place] [facility] [address] [id number], [place] [address] Feb, [facility] [place] [facility] [address] [id number], [place] [address] Feb, [facility] [place] [facility] [address] [id number], [place] [address] Feb, [facility] [place] [facility] [address] [id number] [place] [address] Jan, [facility] [place] [facility] [address] [id number] [place] [address] Jan, [facility] [place] [facility] [address] [id number] [place] [address] Jan, [facility] [place] [facility] [address] [id number] [place] [address] Jan, [facility] [place] [facility] [address] [id number] [place] [address] Jan, [facility] [place] [facility] [address] [id number] [place] [address] Nov, [facility] [place] [facility] [address] [id number] [place] [address] Nov, [facility] [place] [facility] [address] [id number] [place] [address] Nov, [facility] [place] [facility] [address] [id number] [place] [address] Nov, [facility] [place] [facility] [address] [id number] [place] [address] Nov, [facility] [place] [facility] [address] [id number] [place] [address] Nov, [facility] [place] [facility] [address] [id number] [place] [address] Oct, [facility] [place] [facility] [address] [id number] [place] [address] Oct, [facility] [place] [facility] [address] [id number] [place] [address] Oct, [facility] [place] [facility] [address] [id number] [place] [address] Oct, [facility] [place] [facility] [address] [id number] [place] [address] Oct, [facility] [place] [facility] [address] [id number] [place] [address] Oct, [facility] [place] [facility] [address] [id number] [place] [address] Oct, [facility] [place] [facility] [address] [id number] [place] [address] September, [facility] [place] [facility] [address] [id number] [place] [address] September, [facility] [place] [facility] [address] [id number] [place] [address] September, [facility] [place] [facility] [address] [id number] [place] [address] September, [facility] [place] [facility] [address] [id number] [place] [address] September, [facility] [place] [facility] [address] [id number] [place] [address] September, [facility] [place] [facility] [address] [id number] [place] [address] September, [facility] [place] [facility] [address] [id number] [place] [address] September, [facility] [place] [facility] [address] [id number] [place] [address] Aug, [facility] [place] [facility] [address] [id number] [place] [address] Aug, [facility] [place] [facility] [address] [id number] [place] [address] Aug, [facility] [place] [facility] [address] [id number] [place] [address] Aug, [facility] [place] [facility] [address] [id number] [place] [address] Jul, [facility] [place] [facility] [address] [id number] [place] [address] Jul, [facility] [place] [facility] [address] [id number] [place] [address] Jun, [facility] [place] [facility] [address] [id number] [place] [address] Jun, [facility] [place] [facility] [address] [id number] [place] [address] Jun, [facility] [place] [facility] [address] [id number] [place] [address] Jun, [facility] [place] [facility] [address] [id number] [place] [address] Jun, [facility] [place] [facility] [address] [address] [id number] [place] [address] Jun, [facility] [place] [facility] [address] [id number] [place] [address] May, [facility] [place] [facility] [address] [id number] [place] [address] May, [facility] [place] [facility] [address] [id number] [place] [address] May, [facility] [place] [facility] [address] [id number] [place] [address] May, [facility] [place] [facility] [address] [id number] [address] May, [facility] [place] [facility] [address] [id number] [place] [address] May, [facility] [place] [facility] [address] [id number] [place] [address] Feb, [facility] [place] [facility] [address] [id number] [place] [address] Feb, [facility] [place] [facility] [address] [id number] [place] [address] Feb, [facility] [address] [id number] [place] [address] Feb, [facility] [address] [id number] [place] [address] Jan, [facility] [address] [id number] [place] [address] Jan, [facility] [address] [id number] [place] [address] Jan, [facility] [address] [id number] [place] [address] Dec, [facility] [address] [id number] [place] [address] Nov, [facility] [address] [id number] [place] [address] Nov, [facility] [address] [id number] [place] [address] Nov, [facility] [address] [id number] [place] [address] Nov, [facility] [address] [id number] [place] [address] Nov, [facility] [address] [id number] [place] [address] Oct, [facility] [address] [id number] [place] [address] September, [facility] [address] [id number] [place] [address] September, [facility] [address] [id number] [place] [address] Aug, [facility] [address] [id number] [place] [address] Aug, [facility] [address] [id number] [place] [address] Jul, [facility] [place] [facility] [address] [id number] [place] [address] Jul, [facility] [address] [id number] [place] [address] Jul, [facility] [place] [facility] [address] [id number] [place] [address] Jul, [facility] [address] [id number] [place] [address] Jun, [facility] [place] [facility] [address] [id number] [place] [address] Jun, [facility] [address] [id number] [place] [address] Jun, [facility] [address] [id number] [place] [address] May, [facility] [address] [id number] [place] [address] May, [facility] [address] [id number] [place] [address] May, [facility] [address] [id number][place] [address] May, [facility] [place] [facility] [address] [id number], [place] [address] Apr, [facility] [place] [facility] [address] [id number] [place] [address] Apr, [facility] [place] [facility] [address] [id number] [place] [address] Apr, [facility] [place] [facility] [address] [id number] [place] [address] Apr, [facility] [place] [facility] [address] [id number] [place] [address] Apr, [facility] [place] [facility] [address] [id number] [place] [address] Apr, [facility] [place] [facility] [address] [id number] [place] [address] Mar, [facility] [place] [facility] [address] [id number] [place] [address] Mar, [facility] [place] [facility] [address] [id number] [place] [address] Mar, [facility] [place] [facility] [address] [id number] [place] [address] Mar, [facility] [place] [facility] [address] [id number] [place] [address] Mar, [facility] [place] [facility] [address] [id number] [place] [address] Mar, [facility] [place] [facility] [address] [id number] [place] [address] Feb, [facility] [place] [facility] [address] [id number] [place] [address] Feb, [facility] [place] [facility] [address] [facility] [id number] [place] [address] Feb, [facility] [place] [facility] [address] [id number] [place] [address] Feb, [facility] [place] [facility] [address] [id number], [place] [address] Jan, [facility] [place] [facility] [address] [id number] [place] [address] Jan, [facility] [place] [facility] [address] [id number] [place] [address] 24 Jan, 2012 [facility] [place] [facility] [address] [id number][place] [address] 10 Jan, 2012 [facility] [place] [facility] [address] [id number] [place] [address] Dec, [facility] [place] [facility] [address] [id number] [place] [address] Dec, [facility] [place] [facility] [address] [id number] [place] [address] Nov, [facility] [place] [facility] [address] [id number] [place] [address] Oct, [facility] [place] [facility] [address] [id number] [place] [address] Oct, [facility] [place] [facility] [address] [id number] [place] [address] Oct, [facility] [place] [facility] [address] [id number] [place] [address] September, [facility] [place] [facility] [address] [id number] [place] [address] September, [facility] [place] [facility] [address] [id number] [place] [address] September, [facility] [place] [facility] [address] [id number] [place] [address] September, [facility] [place] [facility] [address] [id number] [place] [address] September, [facility] [place] [facility] [address] [id number] [place] [address] September, [facility] [place] [facility] [address] [id number] [place] [address] September, [facility] [place] [facility] [address] [id number] [place] [address] Jul, [facility] [place] [facility] [address] [id number] [place] [address] Jul, [facility] [place] [facility] [address] [id number], [place] [address] 28 Jun, 2011 [facility] [place] [facility] [address] [id number] [place] [address] 27 Jun, 2011 [facility] [place] [facility] [address] [id number] [place] [address] 06 Jun, 2011 [facility] [place] [facility] [address] [facility] [id number] [place] [address] 10 May, 2011 [facility] [place] [facility] [address] [id number] [place] [address] 29 Mar, 2011 [facility] [place] [facility] [address] [id number] [place] [address] 18 Mar, 2011 [facility] [place] [facility] [address] [id number] [place] [address] 14 Mar, 2011 [facility] [address] [facility] [id number] [place] [address] 31 Feb, 2011 [facility] [place] [facility] [address] [id number] [place] [address] 18 Feb, 2011 [facility] [address] [id number], [place] [address] Dec, [facility] [place] [facility] [address] [facility] [id number] [place] [address] 15 May, 2009 [facility] [place] [facility] [address] [id number], [place] [address] 29 Apr, 2009 [facility] [place] [facility] [address] [id number], [place] [address] 28 Apr, 2009 [facility] [place] [facility] [address] [id number] [place] [address] 14 Apr, 2009 [facility] [place] [facility] [address] [id number] [place] [address] 14 Apr, 2009 [facility] [place] [facility] [address] [facility] [id number] [place] [address] 30 Feb, 2009 [facility] [place] [facility] [address] [facility] [id number] [place] [address] Oct, IMMUNIZATIONS No Known Immunizations SOCIAL HISTORY Never Assessed REASON FOR VISIT Controlled Med Refill PLAN OF CARE VITAL SIGNS MEDICATIONS Medication Instructions Dosage Frequency Start Date End Date Duration Status Valium 2 MG Orally Once a day 1 tablet as needed 24h Oct, 30 days Active RESULTS No Results PROCEDURES No Known [...] 5th toe removal 06/25/2009 Hospitalization History pneumonia, hypoxia[facility] 11/03/16
--- OUTSIDE RECORDS SUMMARY | 2018-12-05 11:46 | XMS REPORT ---
Author Author ERIK SAMAYOA [facility] Address [address] [place] [address] Care Team Providers Care Online Facilitator Name Role Phone ERIK SAMAYOA Unavailable PROBLEMS Type Condition ICD9-CM Code CIM03-AC Code Onset Dates Condition Status SNOMED Code Problem Mood disorder F39 Active 74416878 Problem PVD (peripheral vascular disease) I73.9 Active 175437419 Problem Amput leg, unil NOS-comp S88.919A Active 46281925 Problem Acute cystitis with hematuria N30.01 Active 91751301 Problem Major depressive disorder, single episode, unspecified F32.9 Active 40638811 Problem Anticoagulant long-term use Z79.01 Active 308302645 Problem Vitamin B12 deficiency E53.8 Dec, Active 423658955 Problem Chronic obstructive pulmonary disease, unspecified COPD type J44.9 Active 40277238 Problem Congestive heart failure, unspecified congestive heart failure chronicity, unspecified congestive heart failure type I50.9 Active 27977701 Problem Chronic fatigue, unspecified R53.82 Active 346037871 Problem Peripheral vascular disease I73.9 Active 693606521 Problem Chronic fatigue R53.82 Active 25430790 ALLERGIES No Information ENCOUNTERS Encounter Location Date Diagnosis [facility] [address] [id number], [place] [address] Jan, Anticoagulant long-term use Z79.01 [facility] [address] [id number], [place] [address] Jan, Vitamin B12 deficiency E53.8 [facility] [address] [id number], [place] [address] Jan, Anticoagulant long-term use Z79.01 [facility] [address] [id number], [place] [address] Jan, Major depressive disorder, single episode, unspecified F32.9 [place] [address], [place] [address] Jan, [place] [id number] [place] [address] Jan, Anticoagulant long-term use Z79.01 [place] [id number] [place] [address] Dec, Anticoagulant long-term use Z79.01 [place] [id number] [place] [address] Dec, Vitamin B12 deficiency E53.8 [place] [id number] [place] [address] Dec, Major depressive disorder, single episode, unspecified F32.9 [place] [id number] [place] [address] Nov, Vitamin B 12 deficiency E53.8 [place] [id number] [place] [address] Nov, Anticoagulant long-term use Z79.01 ; Mood disorder F39 ; Chronic obstructive pulmonary disease, unspecified COPD type J44.9 ; Peripheral vascular disease I73.9 and Chronic fatigue R53.82 [place] [id number] [place] [address] Nov, Mood disorder F39 [place] [id number] [place] [address] Nov, [place] [id number] [place] [address] Oct, Mood disorder F39 ; Chronic obstructive pulmonary disease, unspecified COPD type J44.9 ; Peripheral vascular disease I73.9 and Chronic fatigue R53.82 [place] [id number] [place] [address] September, Anticoagulant long-term use Z79.01 and Congestive heart failure, unspecified congestive heart failure chronicity, unspecified congestive heart failure type I50.9 [facility] [id number] [place] [address] September, Vitamin B12 deficiency E53.8 [place] [id number] [place] [address] September, Anticoagulant long-term use Z79.01 [place] [address] [address] September, Anticoagulant long-term use Z79.01 and Congestive heart failure, unspecified congestive heart failure chronicity, unspecified congestive heart failure type I50.9 [place] [address] [address] Aug, Chronic fatigue, unspecified R53.82 [place] [address] [address] Aug, Anticoagulant long-term use Z79.01 [place] [id number] [place] [address] Aug, Nausea R11.0 and Weakness R53.1 [place] [id number] [place] [address] Aug, [facility] [id number] [place] [address] Aug, Hematuria R31.9 and Acute cystitis with hematuria N30.01 [facility] [id number] [place] [address] Aug, [place] [id number] [place] [address] Jul, Vitamin B 12 deficiency E53.8 [place] [id number] [place] [address] Jul, Anticoagulant long-term use Z79.01 [address] [address] [address] Jun, Chronic fatigue, unspecified R53.82 [place] [id number] [place] [address] Jun, Anticoagulant long-term use Z79.01 [place] [id number] [place] [address] May, Flu-like symptoms R68.89 and Influenza A J10.1 [place] [id number] [place] [address] May, [place] [id number] [place] [address] May, Chronic fatigue, unspecified R53.82 [place] [id number] [place] [address] May, Anticoagulant long-term use Z79.01 [place] [id number] [place] [address] Apr, Medicare welcome exam Z00.00 ; Anticoagulant long-term use Z79.01 ; Medicare annual wellness visit, initial Z00.00 ; Medicare annual wellness visit, subsequent Z00.00 and Chronic fatigue, unspecified R53.82 [place] [id number] [place] [address] 15 Mar, 2017 Chronic fatigue, unspecified R53.82 [place] [id number] [place] [address] 07 Mar, 2017 Anticoagulant long-term use Z79.01 [place] [id number] [place] [address] 07 Mar, 2017 Anticoagulant long-term use Z79.01 and Hematuria R31.9 [place] [id number] [place] [address] Mar, Hematuria R31.9 [place] [id number] [place] [address] Feb, Anticoagulant long-term use Z79.01 [facility] [address], [place] [address] Feb, Anticoagulant long-term use Z79.01 [facility] [id number] [place] [address] Feb, Anticoagulant long-term use Z79.01 [place] [id number] [place] [address] Feb, Chronic fatigue, unspecified R53.82 [place] [id number] [place] [address] Feb, Anticoagulant long-term use Z79.01 [place] [id number] [place] [address] Feb, Congestive heart failure, unspecified congestive heart failure chronicity, unspecified congestive heart failure type I50.9 [place] [id number] [place] [address] Feb, Congestive heart failure, unspecified congestive heart failure chronicity, unspecified congestive heart failure type I50.9 [place] [id number] [place] [address] Feb, [place] [id number] [place] [address] Jan, Anticoagulant long-term use Z79.01 [place] [id number] [place] [address] Jan, [place] [id number] [place] [address] Jan, Anticoagulant long-term use Z79.01 and Hematuria R31.9 [facility] [id number] [place] [address] Jan, Anticoagulant long-term use Z79.01 [place] [id number] [place] [address] Jan, Chronic fatigue, unspecified R53.82 [place] [id number] [place] [address] Jan, Anticoagulant long-term use Z79.01 [place] [id number] [place] [address] Dec, Chronic fatigue, unspecified R53.82 [place] [id number] [place] [address] Dec, [place] [id number] [place] [address] Dec, Chronic fatigue, unspecified R53.82 and Encounter for therapeutic drug level monitoring Z51.81 [place] [id number] [place] [address] Nov, Encounter for therapeutic drug level monitoring Z51.81 [place] [id number] [place] [address] Nov, Hematuria R31.9 [place] [id number] [place] [address] Nov, Hematuria R31.9 ; Anticoagulant long-term use Z79.01 and PVD (peripheral vascular disease) I73.9 [place] [id number] [place] [address] Nov, Anticoagulant long-term use Z79.01 [place] [id number] [place] [address] Nov, Anticoagulant long-term use Z79.01 [place] [id number] [place] [address] Nov, [place] [id number] [place] [address] Nov, Hematuria R31.9 and Acute cystitis with hematuria N30.01 [place] [address] [id number] Oct, [place] [id number] [place] [address] Oct, [place] [id number] [place] [address] Oct, Hematuria R31.9 [place] [id number] [place] [address] Oct, Hematuria R31.9 [place] [address] [address] Oct, Anticoagulant long-term use Z79.01 [place] [address] [address] Oct, Anticoagulant long-term use Z79.01 [place] [id number] [place] [address] Oct, [place] [id number] [place] [address] September, PVD (peripheral vascular disease) I73.9 ; Amput leg, unil NOS-comp S88.919A ; Acute cystitis without hematuria N30.00 ; Anticoagulant long-term use Z79.01 and Hypokalemia E87.6 [place] [id number] [place] [address] Aug, Anticoagulant long-term use Z79.01 and Bronchitis J40 [place] [id number] [place] [address] Jul, [place] [id number] [place] [address] Jul, Anticoagulant long-term use Z79.01 and Mood disorder F39 [place] [id number] [place] [address] Jul, [place] [id number] [place] [address] May, [facility] [id number] [place] [address] May, Hypokalemia E87.6 [facility] [address] [address] May, Mood disorder F39 [facility] [address] [address] May, Anticoagulant long-term use Z79.01 [facility] [address] [address] Apr, Anticoagulant long-term use Z79.01 [facility] [address] [address] Apr, Anticoagulant long-term use Z79.01 [place] [address] [address] Apr, [facility] [address] [address] Apr, Anticoagulant long-term use Z79.01 [facility] [address] [address] Apr, Anticoagulant long-term use Z79.01 [facility] [id number] [place] [address] Apr, Anticoagulant long-term use Z79.01 [facility] [id number] [place] [address] Mar, [facility] [address] [address] Mar, [facility] [address] [address] Mar, Anticoagulant long-term use Z79.01 [facility] [id number] [place] [address] Feb, [place] [id number] [place] [address] Feb, [facility] [id number] [place] [address] Feb, Anticoagulant long-term use Z79.01 [facility] [id number] [place] [address] Feb, Anticoagulant long-term use Z79.01 [facility] [id number] [place] [address] Jan, [facility] [id number] [place] [address] Jan, Anticoagulant long-term use Z79.01 [facility] [id number] [place] [address] Jan, Anticoagulant long-term use Z79.01 [facility] [id number] [place] [address] Dec, Anticoagulant long-term use Z79.01 [facility] [id number] [place] [address] Dec, Anticoagulant long-term use Z79.01 [facility] [id number] [place] [address] Dec, Anticoagulant long-term use Z79.01 and Mood disorder F39 [facility] [id number] [place] [address] Dec, [facility] [id number] [place] [address] Nov, [facility] [id number] [place] [address] Nov, Anticoagulant long-term use Z79.01 [facility] [id number] [place] [address] Nov, Anticoagulant long-term use Z79.01 [place] [address] [place] [address] September, Anticoagulant long-term use Z79.01 [facility] [id number] [place] [address] Jul, Anticoagulant long-term use Z79.01 [facility] [id number] [place] [address] May, Anticoagulant long-term use Z79.01 [facility] [id number] [place] [address] May, Anticoagulant long-term use Z79.01 [place] [id number] [place] [address] May, Anticoagulant long-term use Z79.01 [place] [id number] [place] [address] May, Anticoagulant long-term use Z79.01 [place] [id number] [place] [address] May, [place] [id number] [place] [address] May, Congestive heart failure, unspecified congestive heart failure chronicity, unspecified congestive heart failure type I50.9 and Pulmonary congestion R09.89 [place] [id number] [place] [address] Apr, Cough R05 ; Congestive heart failure, unspecified congestive heart failure chronicity, unspecified congestive heart failure type I50.9 and Pulmonary congestion R09.89 [place] [id number] [place] [address] Mar, Hematuria R31.9 [place] [id number] [place] [address] Mar, [place] [id number] [place] [address] Mar, Anticoagulant long-term use Z79.01 [facility] [id number] [place] [address] Mar, [facility] [id number] [place] [address] Mar, Hematuria R31.9 and Infective urethritis N34.2 [facility] [address] [address] Mar, Anticoagulant long-term use Z79.01 [facility] [id number] [place] [address] Mar, Anticoagulant long-term use Z79.01 [facility] [id number] [place] [address] Mar, [place] [address] [address] Mar, Anticoagulant long-term use Z79.01 [facility] [id number] [place] [address] Feb, Peristomal skin breakdown L98.499 [place] [id number] [place] [address] Feb, [place] [id number] [place] [address] Feb, UTI (urinary tract infection) N39.0 [place] [id number] [place] [address] Jan, [place] [id number] [place] [address] Dec, High risk medication use V58.69 [place] [id number] [place] [address] Nov, High risk medication use V58.69 [place] [id number] [place] [address] Nov, [facility] [address] [facility] [id number], [place] [address] Nov, UTI (lower urinary tract infection) 599.0 ; URI, acute 465.9 ; Insomnia 780.52 ; Anxiety 300.00 and Lower limb amputation, unspecified level V49.70 [facility] [address] [id number], [place] [address] Oct, UTI (lower urinary tract infection) 599.0 ; URI, acute 465.9 ; Insomnia 780.52 ; Anxiety 300.00 and Lower limb amputation, unspecified level V49.70 [facility] [address] [id number], [place] [address] Aug, [facility] [address] [facility] [id number], [place] [address] Aug, [facility] [address] [facility] [id number], [place] [address] Jul, [facility] [address] [facility] [id number], [place] [address] Jul, [facility] [id number], [place] [address] Jun, [facility] [address] [facility] [id number], [place] [address] Jun, [facility] [address] [facility] [id number], [place] [address] Mar, [facility] [address] [facility] [id number], [place] [address] Mar, [facility] [address] [facility] [id number], [place] [address] Mar, [facility] [address] [facility] [id number], [place] [address] Mar, [facility] [address] [facility] [id number], [place] [address] Mar, [facility] [place] [facility] [address] [id number] [place] [address] Feb, 2013 [facility] [place] [facility] [address] [id number] [place] [address] Feb, [facility] [place] [facility] [address] [id number] [place] [address] Feb, 2013 [facility] [place] [facility] [address] [id number] [place] [address] Feb, 2013 [facility] [place] [facility] [address] [id number] [place] [address] Feb, [facility] [place] [facility] [address] [id number] [place] [address] Feb, [facility] [place] [facility] [address] [id number] [place] [address] Feb, [facility] [place] [facility] [address] [id number] [place] [address] Feb, [facility] [place] [facility] [address] [id number] [place] [address] Feb, [facility] [place] [facility] [address] [id number], [place] [address] Feb, [facility] [place] [facility] [address] [id number], [place] [address] Feb, [facility] [place] [facility] [address] [id number], [place] [address] Feb, [facility] [place] [facility] [address] [id number], [place] [address] Feb, [facility] [place] [facility] [address] [id number], [place] [address] Feb, [facility] [place] [facility] [address] [id number], [place] [address] Feb, [facility] [place] [facility] [address] [id number], [place] [address] Feb, [facility] [place] [facility] [address] [id number] [place] [address] Jan, [facility] [place] [facility] [address] [id number] [place] [address] Jan, [facility] [place] [facility] [address] [id number] [place] [address] Jan, [facility] [place] [facility] [address] [id number] [place] [address] Jan, [facility] [place] [facility] [address] [id number] [place] [address] Jan, [facility] [place] [facility] [address] [id number] [place] [address] Nov, [facility] [place] [facility] [address] [id number] [place] [address] Nov, [facility] [place] [facility] [address] [id number] [place] [address] Nov, [facility] [place] [facility] [address] [id number] [place] [address] Nov, [facility] [place] [facility] [address] [id number] [place] [address] Nov, [facility] [place] [facility] [address] [id number] [place] [address] Nov, [facility] [place] [facility] [address] [id number] [place] [address] Oct, [facility] [place] [facility] [address] [id number] [place] [address] Oct, [facility] [place] [facility] [address] [id number] [place] [address] Oct, [facility] [place] [facility] [address] [id number] [place] [address] Oct, [facility] [place] [facility] [address] [id number] [place] [address] Oct, [facility] [place] [facility] [address] [id number] [place] [address] Oct, [facility] [place] [facility] [address] [id number] [place] [address] Oct, [facility] [place] [facility] [address] [id number] [place] [address] September, [facility] [place] [facility] [address] [id number] [place] [address] September, [facility] [place] [facility] [address] [id number] [place] [address] September, [facility] [place] [facility] [address] [id number] [place] [address] September, [facility] [place] [facility] [address] [id number] [place] [address] September, [facility] [place] [facility] [address] [id number] [place] [address] September, [facility] [place] [facility] [address] [id number] [place] [address] September, [facility] [place] [facility] [address] [id number] [place] [address] September, [facility] [place] [facility] [address] [id number] [place] [address] Aug, [facility] [place] [facility] [address] [id number] [place] [address] Aug, [facility] [place] [facility] [address] [id number] [place] [address] Aug, [facility] [place] [facility] [address] [id number] [place] [address] Aug, [facility] [place] [facility] [address] [id number] [place] [address] Jul, [facility] [place] [facility] [address] [id number] [place] [address] Jul, [facility] [place] [facility] [address] [id number] [place] [address] Jun, [facility] [place] [facility] [address] [id number] [place] [address] Jun, [facility] [place] [facility] [address] [id number] [place] [address] Jun, [facility] [place] [facility] [address] [id number] [place] [address] Jun, [facility] [place] [facility] [address] [id number] [place] [address] Jun, [facility] [place] [facility] [address] [id number] [place] [address] Jun, [facility] [facility] [address] [id number] [place] [address] May, [facility] [place] [facility] [address] [id number] [place] [address] May, [facility] [place] [facility] [address] [id number] [place] [address] May, [facility] [place] [facility] [address] [id number] [place] [address] May, [facility] [place] [facility] [address] [id number], [place] [address] May, [facility] [place] [facility] [address] [id number] [place] [address] May, [facility] [place] [facility] [address] [id number] [place] [address] Feb, [facility] [place] [facility] [address] [id number] [place] [address] Feb, [facility] [place] [facility] [address] [id number] [place] [address] Feb, [facility] [address] [id number] [place] [address] Feb, [facility] [address] [id number] [place] [address] Jan, [facility] [address] [id number] [place] [address] Jan, [facility] [address] [id number] [place] [address] Jan, [facility] [address] [id number] [place] [address] Dec, [facility] [address] [id number] [place] [address] Nov, [facility] [address] [id number] [place] [address] Nov, [facility] [address] [id number] [place] [address] Nov, [facility] [address] [id number] [place] [address] Nov, [facility] [address] [id number] [place] [address] Nov, [facility] [address] [id number] [place] [address] Oct, [facility] [address] [id number] [place] [address] September, [facility] [address] [id number] [place] [address] September, [facility] [address] [id number] [place] [address] Aug, [facility] [address] [id number] [place] [address] Aug, [facility] [address] [id number] [place] [address] Jul, [facility] [address] [id number] [place] [address] Jul, [facility] [address] [id number] [place] [address] Jul, [facility] [place] [facility] [address] [id number] [place] [address] Jul, [facility] [address] [id number] [place] [address] Jun, [facility] [place] [facility] [address] [id number] [place] [address] Jun, [facility] [address] [id number] [place] [address] Jun, [facility] [address] [id number] [place] [address] May, [facility] [address] [id number] [place] [address] May, [facility] [address] [id number] [place] [address] May, [facility] [address] [id number], [place] [address] May, [facility] [address] [id number], [place] [address] Apr, [facility] [place] [facility] [address] [id number] [place] [address] Apr, [facility] [place] [facility] [address] [id number] [place] [address] Apr, [facility] [address] [id number] [place] [address] Apr, [facility] [address] [id number] [place] [address] Apr, [facility] [address] [id number] [place] [address] Apr, [facility] [address] [id number] [place] [address] Mar, [facility] [address] [id number] [place] [address] Mar, [facility] [address] [id number] [place] [address] Mar, [facility] [address] [id number] [place] [address] Mar, [facility] [address] [id number] [place] [address] Mar, [facility] [address] [id number] [place] [address] Mar, [facility] [address] [id number] [place] [address] Feb, [facility] [address] [id number] [place] [address] Feb, [facility] [address] [facility] [id number] [place] [address] Feb, [facility] [address] [id number] [place] [address] Feb, [facility] [address] [id number], [place] [address] Jan, [facility] [address] [id number] [place] [address] Jan, [facility] [address] [id number] [place] [address] 24 Jan, 2012 [facility] [address] [id number], [place] [address] 10 Jan, 2012 [facility] [address] [id number] [place] [address] Dec, [facility] [address] [id number] [place] [address] Dec, [facility] [address] [id number] [place] [address] Nov, [facility] [address] [id number] [place] [address] Oct, [facility] [address] [id number] [place] [address] Oct, [facility] [address] [id number] [place] [address] Oct, [facility] [address] [id number] [place] [address] September, [facility] [address] [id number] [place] [address] September, [facility] [address] [id number] [place] [address] September, [facility] [address] [id number] [place] [address] September, [facility] [address] [id number] [place] [address] September, [facility] [address] [id number] [place] [address] September, [facility] [address] [id number] [place] [address] September, [facility] [address] [id number] [place] [address] Jul, [facility] [address] [id number] [place] [address] Jul, [facility] [address] [id number], [place] [address] 28 Jun, 2011 [facility] [address] [id number] [place] [address] 27 Jun, 2011 [facility] [address] [id number] [place] [address] 06 Jun, 2011 [facility] [address] [facility] [id number] [place] [address] 10 May, 2011 [facility] [address] [id number] [place] [address] 29 Mar, 2011 [facility] [address] [id number] [place] [address] 18 Mar, 2011 [facility] [address] [id number] [place] [address] 14 Mar, 2011 [facility] [address] [facility] [id number] [place] [address] 31 Feb, 2011 [facility] [address] [id number] [place] [address] 18 Feb, 2011 [facility] [address] [id number], [place] [address] Dec, [facility] [address] [facility] [id number] [place] [address] 15 May, 2009 [facility] [address] [id number], [place] [address] 29 Apr, 2009 [facility] [address] [id number], [place] [address] 28 Apr, 2009 [facility] [address] [id number] [place] [address] 14 Apr, 2009 [facility] [address] [id number] [place] [address] 14 Apr, 2009 [facility] [address] [facility] [id number] [place] [address] 30 Feb, 2009 [facility] [address] [facility] [id number] [place] [address] Oct, IMMUNIZATIONS No Known Immunizations SOCIAL HISTORY Never Assessed REASON FOR VISIT Lab (walk-in) PLAN OF CARE VITAL SIGNS MEDICATIONS Unknown Medications RESULTS Name Result Date Reference Range INR (IN HOUSE) 2018-02-02 INR 3.9 1.10 - 3.30 PREVIOUS INR 3.4 CURRENT COUMADIN DOSE 1 mg qd NEW COUMADIN DOSE Lot # [id number] Exp date 09/2018 PROCEDURES Procedure Date Ordered Result Body Site PROTHROMBIN TIME Feb 02, 2018 INSTRUCTIONS MEDICATIONS ADMINISTERED No Known Medications [...]
--- OUTSIDE RECORDS SUMMARY | 2018-12-05 11:47 | XMS REPORT ---
Author Author ERIK SAMAYOA Organization [facility] Address [address] [place] [address] Care Team Providers Care Drafting Clerk Name Role Phone ERIK SAMAYOA Unavailable PROBLEMS Type Condition ICD9-CM Code CPK86-LT Code Onset Dates Condition Status SNOMED Code Problem Mood disorder F39 Active 48627269 Problem PVD (peripheral vascular disease) I73.9 Active 325963370 Problem Amput leg, unil NOS-comp S88.919A Active 79008565 Problem Acute cystitis with hematuria N30.01 Active 70497520 Problem Major depressive disorder, single episode, unspecified F32.9 Active 27872822 Problem Anticoagulant long-term use Z79.01 Active 185605563 Problem Vitamin B12 deficiency E53.8 Dec, Active 006952057 Problem Chronic obstructive pulmonary disease, unspecified COPD type J44.9 Active 13195412 Problem Congestive heart failure, unspecified congestive heart failure chronicity, unspecified congestive heart failure type I50.9 Active 53637249 Problem Chronic fatigue, unspecified R53.82 Active 353197466 Problem Peripheral vascular disease I73.9 Active 503077981 Problem Chronic fatigue R53.82 Active [id number] ALLERGIES No Information ENCOUNTERS Encounter Location Date Diagnosis [place] [id number], [place] [address] Jan, Vitamin B12 deficiency E53.8 [facility] [id number], [place] [address] Jan, Anticoagulant long-term use Z79.01 [facility] [id number], [place] [address] Jan, Major depressive disorder, single episode, unspecified F32.9 [facility] [id number], [place] [address] Jan, [facility] [address], [place] [address] Jan, Anticoagulant long-term use Z79.01 [facility] [id number] [place] [address] Dec, Anticoagulant long-term use Z79.01 [facility] [id number] [place] [address] Dec, Vitamin B12 deficiency E53.8 [facility] [id number] [place] [address] Dec, Major depressive disorder, single episode, unspecified F32.9 [facility] [id number] [place] [address] Nov, Vitamin B 12 deficiency E53.8 [facility] [id number] [place] [address] Nov, Anticoagulant long-term use Z79.01 ; Mood disorder F39 ; Chronic obstructive pulmonary disease, unspecified COPD type J44.9 ; Peripheral vascular disease I73.9 and Chronic fatigue R53.82 [facility] [id number] [place] [address] Nov, Mood disorder F39 [facility] [id number] [place] [address] Nov, [place] [id number] [place] [address] Oct, Mood disorder F39 ; Chronic obstructive pulmonary disease, unspecified COPD type J44.9 ; Peripheral vascular disease I73.9 and Chronic fatigue R53.82 [facility] [id number] [place] [address] September, Anticoagulant long-term use Z79.01 and Congestive heart failure, unspecified congestive heart failure chronicity, unspecified congestive heart failure type I50.9 [facility] [id number] [place] [address] September, Vitamin B12 deficiency E53.8 [facility] [id number] [place] [address] September, Anticoagulant long-term use Z79.01 [facility] [id number] [place] [address] September, Anticoagulant long-term use Z79.01 and Congestive heart failure, unspecified congestive heart failure chronicity, unspecified congestive heart failure type I50.9 [facility] [id number] [place] [address] Aug, Chronic fatigue, unspecified R53.82 [place] [address] [address] Aug, Anticoagulant long-term use Z79.01 [facility] [id number] [place] [address] Aug, Nausea R11.0 and Weakness R53.1 [facility] [id number] [place] [address] Aug, [facility] [address] [address] Aug, Hematuria R31.9 and Acute cystitis with hematuria N30.01 [facility] [place] [id number] [place] [address] Aug, [facility] [id number] [place] [address] Jul, Vitamin B 12 deficiency E53.8 [facility] [id number] [place] [address] Jul, Anticoagulant long-term use Z79.01 [facility] [id number] [place] [address] Jun, Chronic fatigue, unspecified R53.82 [facility] [place] [address] [address] Jun, Anticoagulant long-term use Z79.01 [facility] [place] [id number] [place] [address] May, Flu-like symptoms R68.89 and Influenza A J10.1 [facility] [id number] [place] [address] May, [facility] [facility] [id number] [place] [address] May, Chronic fatigue, unspecified R53.82 [facility] [id number] [place] [address] May, Anticoagulant long-term use Z79.01 [facility] [id number] [place] [address] Apr, Medicare welcome exam Z00.00 ; Anticoagulant long-term use Z79.01 ; Medicare annual wellness visit, initial Z00.00 ; Medicare annual wellness visit, subsequent Z00.00 and Chronic fatigue, unspecified R53.82 [facility] [id number] [place] [address] Mar, Chronic fatigue, unspecified R53.82 [facility] [id number] [place] [address] Mar, Anticoagulant long-term use Z79.01 [facility] [id number] [place] [address] Mar, Anticoagulant long-term use Z79.01 and Hematuria R31.9 [facility] [id number] [place] [address] Mar, Hematuria R31.9 [facility] [id number] [place] [address] Feb, Anticoagulant long-term use Z79.01 [facility] [id number] [place] [address] Feb, Anticoagulant long-term use Z79.01 [facility] [address], [place] [address] Feb, Anticoagulant long-term use Z79.01 [facility] [id number] [place] [address] Feb, Chronic fatigue, unspecified R53.82 [place] [place] [id number] [place] [address] Feb, Anticoagulant long-term use Z79.01 [facility] [id number] [place] [address] Feb, Congestive heart failure, unspecified congestive heart failure chronicity, unspecified congestive heart failure type I50.9 [facility] [id number] [place] [address] Feb, Congestive heart failure, unspecified congestive heart failure chronicity, unspecified congestive heart failure type I50.9 [facility] [id number] [place] [address] Feb, [facility] [id number] [place] [address] Jan, Anticoagulant long-term use Z79.01 [facility] [id number] [place] [address] Jan, [facility] [facility] [id number] [place] [address] Jan, Anticoagulant long-term use Z79.01 and Hematuria R31.9 [facility] [id number] [place] [address] Jan, Anticoagulant long-term use Z79.01 [facility] [place] [id number] [place] [address] Jan, Chronic fatigue, unspecified R53.82 [facility] [id number] [place] [address] Jan, Anticoagulant long-term use Z79.01 [facility] [id number] [place] [address] Dec, Chronic fatigue, unspecified R53.82 [facility] [place] [id number] [place] [address] Dec, [facility] [id number] [place] [address] Dec, Chronic fatigue, unspecified R53.82 and Encounter for therapeutic drug level monitoring Z51.81 [facility] [id number] [place] [address] Nov, Encounter for therapeutic drug level monitoring Z51.81 [facility] [id number] [place] [address] Nov, Hematuria R31.9 [facility] [id number] [place] [address] Nov, Hematuria R31.9 ; Anticoagulant long-term use Z79.01 and PVD (peripheral vascular disease) I73.9 [facility] [id number] [place] [address] Nov, Anticoagulant long-term use Z79.01 [place] [place] [id number] [place] [address] Nov, Anticoagulant long-term use Z79.01 [facility] [id number] [place] [address] Nov, [place] [id number] [place] [address] Nov, Hematuria R31.9 and Acute cystitis with hematuria N30.01 [facility] [id number] [place] [id number] Oct, [place] [id number] [place] [address] Oct, [place] [address] [address] Oct, Hematuria R31.9 [place] [address] [address] Oct, Hematuria R31.9 [facility] [address] [address] Oct, Anticoagulant long-term use Z79.01 [place] [address] [address] Oct, Anticoagulant long-term use Z79.01 [place] [address] [address] Oct, [place] [address] [address] September, PVD (peripheral vascular disease) I73.9 ; Amput leg, unil NOS-comp S88.919A ; Acute cystitis without hematuria N30.00 ; Anticoagulant long-term use Z79.01 and Hypokalemia E87.6 [place] [address] [address] Aug, Anticoagulant long-term use Z79.01 and Bronchitis J40 [place] [address] [address] Jul, [place] [address] [address] Jul, Anticoagulant long-term use Z79.01 and Mood disorder F39 [place] [address] [address] Jul, [place] [address] [address] May, [place] [address] [address] May, Hypokalemia E87.6 [facility] [id number] [place] [address] May, Mood disorder F39 [facility] [address] [address] May, Anticoagulant long-term use Z79.01 [facility] [id number] [place] [address] Apr, Anticoagulant long-term use Z79.01 [facility] [address] [address] Apr, Anticoagulant long-term use Z79.01 [facility] [address] [address] Apr, [facility] [address] [address] Apr, Anticoagulant long-term use Z79.01 [facility] [address] [address] Apr, Anticoagulant long-term use Z79.01 [facility] [address] [address] Apr, Anticoagulant long-term use Z79.01 [facility] [id number] [place] [address] Mar, [facility] [id number] [place] [address] Mar, [facility] [id number] [place] [address] Mar, Anticoagulant long-term use Z79.01 [facility] [id number] [place] [address] 24 Feb, 2016 [facility] [id number] [place] [address] Feb, [facility] [address] [place] [address] 07 Feb, 2016 Anticoagulant long-term use Z79.01 [facility] [id number] [place] [address] Feb, Anticoagulant long-term use Z79.01 [facility] [id number] [place] [address] Jan, [facility] [address] [address] Jan, Anticoagulant long-term use Z79.01 [facility] [id number] [place] [address] Jan, Anticoagulant long-term use Z79.01 [facility] [id number] [place] [address] Dec, Anticoagulant long-term use Z79.01 [facility] [id number] [place] [address] Dec, Anticoagulant long-term use Z79.01 [facility] [id number] [place] [address] Dec, Anticoagulant long-term use Z79.01 and Mood disorder F39 [facility] [id number] [place] [address] Dec, [facility] [id number] [place] [address] Nov, [facility] [id number] [place] [address] Nov, Anticoagulant long-term use Z79.01 [facility] [id number] [place] [address] Nov, Anticoagulant long-term use Z79.01 [facility] [id number] [place] [address] September, Anticoagulant long-term use Z79.01 [place] [facility] [id number] [place] [address] Jul, Anticoagulant long-term use Z79.01 [facility] [id number] [place] [address] May, Anticoagulant long-term use Z79.01 [facility] [id number] [place] [address] May, Anticoagulant long-term use Z79.01 [facility] [place] [id number] [place] [address] May, Anticoagulant long-term use Z79.01 [facility] [address] [address] May, Anticoagulant long-term use Z79.01 [facility] [id number] [place] [address] May, [facility] [address] [address] May, Congestive heart failure, unspecified congestive heart failure chronicity, unspecified congestive heart failure type I50.9 and Pulmonary congestion R09.89 [facility] [id number] [place] [address] Apr, Cough R05 ; Congestive heart failure, unspecified congestive heart failure chronicity, unspecified congestive heart failure type I50.9 and Pulmonary congestion R09.89 [facility] [id number] [place] [address] Mar, Hematuria R31.9 [facility] [place] [id number] [place] [address] Mar, [place] [id number] [place] [address] Mar, Anticoagulant long-term use Z79.01 [place] [id number] [place] [address] Mar, [facility] [address], [place] [address] Mar, Hematuria R31.9 and Infective urethritis N34.2 [facility] [address] [place] [address] Mar, Anticoagulant long-term use Z79.01 [facility] [address] [place] [address] Mar, Anticoagulant long-term use Z79.01 [facility] [address] [place] [address] Mar, [facility] [id number] [place] [address] Mar, Anticoagulant long-term use Z79.01 [facility] [address] [place] [address] Feb, Peristomal skin breakdown L98.499 [facility] [address] [place] [address] Feb, [facility] [id number] [place] [address] Feb, UTI (urinary tract infection) N39.0 [facility] [address], [place] [address] Jan, [facility] [address] [place] [address] Dec, High risk medication use V58.69 [facility] [address] [place] [address] Nov, High risk medication use V58.69 [facility] [address] [place] [address] Nov, [facility] [id number], [place] [address] Nov, UTI (lower urinary tract infection) 599.0 ; URI, acute 465.9 ; Insomnia 780.52 ; Anxiety 300.00 and Lower limb amputation, unspecified level V49.70 [facility] [address], [place] [address] Oct, UTI (lower urinary tract infection) 599.0 ; URI, acute 465.9 ; Insomnia 780.52 ; Anxiety 300.00 and Lower limb amputation, unspecified level V49.70 [facility] [address] [id number] [address] Aug, [facility] [address], [place] [address] Aug, [facility] [address], [place] [address] Jul, [facility] [address], [place] [address] Jul, [facility] [address], [place] [address] Jun, [facility] [address], [place] [address] Jun, [facility] [address], [place] [address] Mar, [facility] [address], [place] [address] Mar, [facility] [address], [place] [address] Mar, [facility] [address], [place] [address] Mar, [facility] [address], [place] [address] Mar, [facility] [id number], [place] [address] Feb, [facility] [place] [facility] [address] [id number] [place] [address] 30 Feb, 2013 [facility] [place] [facility] [address] [id number] [place] [address] 29 Feb, 2013 [facility] [place] [facility] [address] [id number] [place] [address] Feb, 2013 [facility] [place] [facility] [address] [id number] [place] [address] Feb, 2013 [facility] [place] [facility] [address] [id number] [place] [address] Feb, 2013 [facility] [place] [facility] [address] [id number] [place] [address] Feb, 2013 [facility] [place] [facility] [address] [id number] [place] [address] Feb, 2013 [facility] [place] [facility] [address] [id number] [place] [address] Feb, 2013 [facility] [place] [facility] [address] [id number] [place] [address] Feb, [facility] [place] [facility] [address] [id number] [place] [address] Feb, [facility] [place] [facility] [address] [id number] [place] [address] Feb, [facility] [place] [facility] [address] [id number] [place] [address] Feb, 2013 [facility] [place] [facility] [address] [id number] [place] [address] Feb, [facility] [place] [facility] [address] [id number] [place] [address] Feb, [facility] [place] [facility] [address] [id number] [place] [address] Feb, [facility] [place] [facility] [address] [id number] [place] [address] Jan, 2013 [facility] [place] [facility] [address] [id number] [place] [address] Jan, 2013 [facility] [place] [facility] [address] [id number] [place] [address] Jan, 2013 [facility] [place] [facility] [address] [id number] [place] [address] Jan, 2013 [facility] [place] [facility] [address] [id number] [place] [address] Jan, 2013 [facility] [place] [facility] [address] [id number] [place] [address] Nov, [facility] [place] [facility] [address] [id number] [place] [address] Nov, [facility] [place] [facility] [address] [id number] [place] [address] Nov, [facility] [place] [facility] [address] [id number] [place] [address] Nov, [facility] [place] [facility] [address] [id number] [place] [address] Nov, [facility] [place] [facility] [address] [id number] [place] [address] Nov, [facility] [place] [facility] [address] [id number] [place] [address] Oct, [facility] [place] [facility] [address] [id number] [place] [address] Oct, [facility] [place] [facility] [address] [id number] [place] [address] Oct, [facility] [place] [facility] [address] [id number] [place] [address] Oct, [facility] [place] [facility] [address] [id number] [place] [address] Oct, [facility] [place] [facility] [address] [id number] [place] [address] Oct, [facility] [address] [id number] [place] [address] Oct, [facility] [place] [facility] [address] [id number] [place] [address] September, [facility] [place] [facility] [address] [id number] [place] [address] September, [facility] [place] [facility] [address] [id number] [place] [address] September, [facility] [place] [facility] [address] [id number] [place] [address] September, [facility] [place] [facility] [address] [id number] [place] [address] September, [facility] [address] [id number] [place] [address] September, [facility] [place] [facility] [address] [id number] [place] [address] September, [facility] [place] [facility] [address] [id number] [place] [address] September, [facility] [place] [facility] [address] [id number] [place] [address] Aug, [facility] [place] [facility] [address] [id number] [place] [address] Aug, [facility] [place] [facility] [address] [id number] [place] [address] Aug, [facility] [place] [facility] [address] [id number] [place] [address] Aug, [facility] [place] [facility] [address] [id number] [place] [address] Jul, [facility] [place] [facility] [address] [id number] [place] [address] Jul, [facility] [place] [facility] [address] [id number] [place] [address] Jun, [facility] [place] [facility] [address] [id number] [place] [address] Jun, [facility] [place] [facility] [address] [id number] [place] [address] Jun, [facility] [place] [facility] [address] [id number] [place] [address] Jun, [facility] [place] [facility] [address] [id number] [place] [address] Jun, [facility] [place] [facility] [address] [id number] [place] [address] Jun, [facility] [place] [facility] [address] [facility] [id number] [place] [address] May, [facility] [place] [facility] [address] [id number], [place] [address] May, [facility] [place] [facility] [address] [facility] [id number], [place] [address] May, [facility] [place] [facility] [address] [facility] [id number], [place] [address] May, [facility] [place] [facility] [address] [facility] [id number], [place] [address] May, [facility] [place] [facility] [address] [id number], [place] [address] May, [facility] [place] [facility] [address] [id number], [place] [address] Feb, [facility] [place] [facility] [address] [id number], [place] [address] Feb, [facility] [place] [facility] [address] [id number], [place] [address] Feb, [facility] [place] [facility] [address] [id number], [place] [address] Feb, [facility] [address] [id number] [place] [address] Jan, [facility] [place] [facility] [address] [id number] [place] [address] Jan, [facility] [address] [id number] [place] [address] Jan, [facility] [address] [id number] [place] [address] Dec, [facility] [address] [id number] [place] [address] Nov, [facility] [address] [id number] [place] [address] Nov, [facility] [address] [id number] [place] [address] Nov, [facility] [address] [id number] [place] [address] Nov, [facility] [address] [id number] [place] [address] Nov, [facility] [address] [id number] [place] [address] Oct, [facility] [address] [id number] [place] [address] September, [facility] [place] [facility] [address] [id number] [place] [address] September, [facility] [place] [facility] [address] [id number] [place] [address] Aug, [facility] [place] [facility] [address] [id number] [place] [address] Aug, [facility] [place] [facility] [address] [id number] [place] [address] Jul, [facility] [place] [facility] [address] [id number] [place] [address] Jul, [facility] [place] [facility] [address] [id number] [place] [address] Jul, [facility] [place] [facility] [address] [id number] [place] [address] Jul, [facility] [place] [facility] [address] [id number] [place] [address] Jun, [facility] [place] [facility] [address] [id number] [place] [address] Jun, [facility] [place] [facility] [address] [id number] [place] [address] Jun, [facility] [place] [facility] [address] [id number] [place] [address] May, [facility] [place] [facility] [address] [id number] [place] [address] May, [facility] [place] [facility] [address] [id number] [place] [address] May, [facility] [place] [facility] [address] [id number] [place] [address] May, [facility] [place] [facility] [address] [id number] [place] [address] Apr, [facility] [place] [facility] [address] [id number] [place] [address] Apr, [facility] [place] [facility] [address] [id number] [place] [address] Apr, [facility] [place] [facility] [address] [id number] [place] [address] Apr, [facility] [place] [facility] [address] [id number] [place] [address] Apr, [facility] [place] [facility] [address] [id number] [place] [address] Apr, [facility] [place] [facility] [address] [id number] [place] [address] Mar, [facility] [place] [facility] [address] [id number] [place] [address] Mar, [facility] [place] [facility] [address] [facility] [id number] [place] [address] Mar, [facility] [place] [facility] [address] [id number] [place] [address] Mar, [facility] [place] [facility] [address] [id number] [place] [address] Mar, [facility] [place] [facility] [address] [id number] [place] [address] Mar, [facility] [place] [facility] [address] [facility] [id number] [place] [address] Feb, [facility] [place] [facility] [address] [id number], [place] [address] Feb, [facility] [place] [facility] [address] [id number] [place] [address] Feb, [facility] [place] [facility] [address] [facility] [id number] [place] [address] Feb, [facility] [place] [facility] [address] [id number], [place] [address] Jan, [facility] [place] [facility] [address] [id number], [place] [address] 25 Jan, 2012 [facility] [place] [facility] [address] [id number] [place] [address] 24 Jan, 2012 [facility] [place] [facility] [address] [facility] [id number], [place] [address] 10 Jan, 2012 [facility] [place] [facility] [address] [facility] [id number], [place] [address] Dec, [facility] [place] [facility] [address] [id number] [place] [address] Dec, [facility] [address] [id number] [place] [address] Nov, [facility] [address] [id number] [place] [address] Oct, [facility] [address] [id number] [place] [address] Oct, [facility] [address] [id number] [place] [address] Oct, [facility] [address] [id number] [place] [address] September, [facility] [address] [id number] [place] [address] September, [facility] [address] [id number] [place] [address] September, [facility] [address] [id number] [place] [address] September, [facility] [address] [id number] [place] [address] September, [facility] [address] [id number] [place] [address] September, [facility] [address] [id number] [place] [address] September, [facility] [address] [id number] [place] [address] Jul, [facility] [place] [facility] [address] [id number] [place] [address] Jul, [facility] [place] [facility] [address] [id number] [place] [address] Jun, [facility] [address] [id number] [place] [address] Jun, [facility] [address] [facility] [id number], [place] [address] 06 Jun, 2011 [facility] [address] [facility] [id number], [place] [address] May, [facility] [address] [facility] [id number], [place] [address] 29 Mar, 2011 [facility] [address] [facility] [id number], [place] [address] Mar, [facility] [address] [facility] [id number] [place] [address] Mar, [facility] [address] [facility] [id number], [place] [address] 31 Feb, 2011 [facility] [address] [facility] [id number], [place] [address] Feb, [facility] [address] [facility] [id number], [place] [address] Dec, [facility] [address] [facility] [id number], [place] [address] May, [facility] [address] [facility] [id number], [place] [address] Apr, [facility] [address] [facility] [id number], [place] [address] Apr, [facility] [address] [facility] [id number], [place] [address] 14 Apr, 2009 [facility] [address] [facility] [id number], [place] [address] Apr, [facility] [address] [facility] [id number], [place] [address] 30 Feb, 2009 [facility] [address] [facility] [id number], [place] [address] Oct, IMMUNIZATIONS No Known Immunizations SOCIAL HISTORY [...] 5th toe removal 06/25/2009 Hospitalization History pneumonia, hypoxia-[facility] 11/03/16
--- OUTSIDE RECORDS SUMMARY | 2018-12-05 11:48 | XMS REPORT ---
Author Author ERIK SAMAYOA Organization [facility] Address [address] [place] [address] Care Team Providers Care Sectionizer Name Role Phone ERIK SAMAYOA Unavailable PROBLEMS Type Condition ICD9-CM Code CEC09-VP Code Onset Dates Condition Status SNOMED Code Problem Mood disorder F39 Active 22611442 Problem PVD (peripheral vascular disease) I73.9 Active 268549066 Problem Amput leg, unil NOS-comp S88.919A Active 88248911 Problem Acute cystitis with hematuria N30.01 Active 94067127 Problem Major depressive disorder, single episode, unspecified F32.9 Active 42010315 Problem Anticoagulant long-term use Z79.01 Active 902900509 Problem Vitamin B12 deficiency E53.8 Dec, Active 136135296 Problem Chronic obstructive pulmonary disease, unspecified COPD type J44.9 Active 13273470 Problem Congestive heart failure, unspecified congestive heart failure chronicity, unspecified congestive heart failure type I50.9 Active 57246459 Problem Chronic fatigue, unspecified R53.82 Active 539181657 Problem Peripheral vascular disease I73.9 Active 306143962 Problem Chronic fatigue R53.82 Active 41511087 ALLERGIES No Information ENCOUNTERS Encounter Location Date Diagnosis [facility] [id number] [address] Jan, Vitamin B12 deficiency E53.8 [facility] [id number] [address] Jan, Anticoagulant long-term use Z79.01 [facility] [id number] [address] Jan, Major depressive disorder, single episode, unspecified F32.9 [facility] [id number] [address] Jan, [facility] [address] [address] Jan, Anticoagulant long-term use Z79.01 [facility] [id number] [place] [address] Dec, Anticoagulant long-term use Z79.01 [facility] [id number] [place] [address] Dec, Vitamin B12 deficiency E53.8 [facility] [id number] [place] [address] Dec, Major depressive disorder, single episode, unspecified F32.9 [facility] [id number] [place] [address] Nov, Vitamin B 12 deficiency E53.8 [facility] [id number] [place] [address] Nov, Anticoagulant long-term use Z79.01 ; Mood disorder F39 ; Chronic obstructive pulmonary disease, unspecified COPD type J44.9 ; Peripheral vascular disease I73.9 and Chronic fatigue R53.82 [facility] [id number] [place] [address] Nov, Mood disorder F39 [facility] [id number] [place] [address] Nov, [facility] [id number] [place] [address] Oct, Mood disorder F39 ; Chronic obstructive pulmonary disease, unspecified COPD type J44.9 ; Peripheral vascular disease I73.9 and Chronic fatigue R53.82 [facility] [id number] [place] [address] September, Anticoagulant long-term use Z79.01 and Congestive heart failure, unspecified congestive heart failure chronicity, unspecified congestive heart failure type I50.9 [facility] [id number] [place] [address] September, Vitamin B12 deficiency E53.8 [facility] [id number] [place] [address] September, Anticoagulant long-term use Z79.01 [facility] [id number] [place] [address] September, Anticoagulant long-term use Z79.01 and Congestive heart failure, unspecified congestive heart failure chronicity, unspecified congestive heart failure type I50.9 [facility] [id number] [place] [address] Aug, Chronic fatigue, unspecified R53.82 [facility] [address] [address] Aug, Anticoagulant long-term use Z79.01 [facility] [id number] [place] [address] Aug, Nausea R11.0 and Weakness R53.1 [facility] [id number] [place] [address] Aug, [facility] [address] [address] Aug, Hematuria R31.9 and Acute cystitis with hematuria N30.01 [facility] [id number] [place] [address] Aug, [facility] [id number] [place] [address] Jul, Vitamin B 12 deficiency E53.8 [facility] [id number] [place] [address] Jul, Anticoagulant long-term use Z79.01 [facility] [id number] [place] [address] Jun, Chronic fatigue, unspecified R53.82 [facility] [address] [address] Jun, Anticoagulant long-term use Z79.01 [facility] [id number] [place] [address] May, Flu-like symptoms R68.89 and Influenza A J10.1 [facility] [id number] [place] [address] May, [facility] [id number] [place] [address] May, Chronic fatigue, unspecified R53.82 [facility] [id number] [place] [address] May, Anticoagulant long-term use Z79.01 [facility] [id number] [place] [address] Apr, Medicare welcome exam Z00.00 ; Anticoagulant long-term use Z79.01 ; Medicare annual wellness visit, initial Z00.00 ; Medicare annual wellness visit, subsequent Z00.00 and Chronic fatigue, unspecified R53.82 [facility] [id number] [place] [address] Mar, Chronic fatigue, unspecified R53.82 [facility] [id number] [place] [address] Mar, Anticoagulant long-term use Z79.01 [facility] [id number] [place] [address] Mar, Anticoagulant long-term use Z79.01 and Hematuria R31.9 [facility] [id number] [place] [address] Mar, Hematuria R31.9 [facility] [id number] [place] [address] Feb, Anticoagulant long-term use Z79.01 [facility] [id number] [place] [address] Feb, Anticoagulant long-term use Z79.01 [facility] [address] [address] Feb, Anticoagulant long-term use Z79.01 [facility] [id number] [place] [address] Feb, Chronic fatigue, unspecified R53.82 [facility] [id number] [place] [address] Feb, Anticoagulant long-term use Z79.01 [facility] [id number] [place] [address] Feb, Congestive heart failure, unspecified congestive heart failure chronicity, unspecified congestive heart failure type I50.9 [facility] [id number] [place] [address] Feb, Congestive heart failure, unspecified congestive heart failure chronicity, unspecified congestive heart failure type I50.9 [facility] [id number] [place] [address] Feb, [facility] [id number] [place] [address] Jan, Anticoagulant long-term use Z79.01 [facility] [id number] [place] [address] Jan, [facility] [id number] [place] [address] Jan, Anticoagulant long-term use Z79.01 and Hematuria R31.9 [facility] [id number] [place] [address] Jan, Anticoagulant long-term use Z79.01 [facility] [id number] [place] [address] Jan, Chronic fatigue, unspecified R53.82 [facility] [id number] [place] [address] Jan, Anticoagulant long-term use Z79.01 [facility] [id number] [place] [address] Dec, Chronic fatigue, unspecified R53.82 [facility] [id number] [place] [address] Dec, [facility] [id number] [place] [address] Dec, Chronic fatigue, unspecified R53.82 and Encounter for therapeutic drug level monitoring Z51.81 [facility] [id number] [place] [address] Nov, Encounter for therapeutic drug level monitoring Z51.81 [facility] [id number] [place] [address] Nov, Hematuria R31.9 [facility] [id number] [place] [address] Nov, Hematuria R31.9 ; Anticoagulant long-term use Z79.01 and PVD (peripheral vascular disease) I73.9 [facility] [id number] [place] [address] Nov, Anticoagulant long-term use Z79.01 [facility] [id number] [place] [address] Nov, Anticoagulant long-term use Z79.01 [facility] [id number] [place] [address] Nov, [facility] [id number] [place] [address] Nov, Hematuria R31.9 and Acute cystitis with hematuria N30.01 [facility] [id number] [place] [id number] Oct, [facility] [id number] [place] [address] Oct, [facility] [address] [address] Oct, Hematuria R31.9 [facility] [address] [address] Oct, Hematuria R31.9 [facility] [address] [address] Oct, Anticoagulant long-term use Z79.01 [facility] [address] [address] Oct, Anticoagulant long-term use Z79.01 [facility] [address] [address] Oct, [facility] [address] [address] September, PVD (peripheral vascular disease) I73.9 ; Amput leg, unil NOS-comp S88.919A ; Acute cystitis without hematuria N30.00 ; Anticoagulant long-term use Z79.01 and Hypokalemia E87.6 [facility] [address] [address] Aug, Anticoagulant long-term use Z79.01 and Bronchitis J40 [facility] [address] [address] Jul, [facility] [address] [address] Jul, Anticoagulant long-term use Z79.01 and Mood disorder F39 [facility] [address] [address] Jul, [facility] [address] [address] May, [facility] [address] [address] May, Hypokalemia E87.6 [facility] [id number] [place] [address] May, Mood disorder F39 [facility] [address] [address] May, Anticoagulant long-term use Z79.01 [facility] [id number] [place] [address] Apr, Anticoagulant long-term use Z79.01 [facility] [address] [address] Apr, Anticoagulant long-term use Z79.01 [facility] [address] [address] Apr, [facility] [address] [address] Apr, Anticoagulant long-term use Z79.01 [facility] [address] [address] Apr, Anticoagulant long-term use Z79.01 [facility] [address] [address] Apr, Anticoagulant long-term use Z79.01 [facility] [id number] [place] [address] Mar, [facility] [id number] [place] [address] Mar, [facility] [id number] [place] [address] Mar, Anticoagulant long-term use Z79.01 [facility] [id number] [place] [address] 24 Feb, 2016 [facility] [id number] [place] [address] Feb, [facility] [address] [place] [address] 07 Feb, 2016 Anticoagulant long-term use Z79.01 [facility] [id number] [place] [address] Feb, Anticoagulant long-term use Z79.01 [facility] [id number] [place] [address] Jan, [facility] [address] [address] Jan, Anticoagulant long-term use Z79.01 [facility] [id number] [place] [address] Jan, Anticoagulant long-term use Z79.01 [facility] [id number] [place] [address] Dec, Anticoagulant long-term use Z79.01 [facility] [id number] [place] [address] Dec, Anticoagulant long-term use Z79.01 [facility] [id number] [place] [address] Dec, Anticoagulant long-term use Z79.01 and Mood disorder F39 [facility] [id number] [place] [address] Dec, [facility] [id number] [place] [address] Nov, [facility] [id number] [place] [address] Nov, Anticoagulant long-term use Z79.01 [facility] [id number] [place] [address] Nov, Anticoagulant long-term use Z79.01 [facility] [id number] [place] [address] September, Anticoagulant long-term use Z79.01 [facility] [id number] [place] [address] Jul, Anticoagulant long-term use Z79.01 [facility] [id number] [place] [address] May, Anticoagulant long-term use Z79.01 [facility] [id number] [place] [address] May, Anticoagulant long-term use Z79.01 [facility] [id number] [place] [address] May, Anticoagulant long-term use Z79.01 [facility] [address] [address] May, Anticoagulant long-term use Z79.01 [facility] [id number] [place] [address] May, [facility] [address] [address] May, Congestive heart failure, unspecified congestive heart failure chronicity, unspecified congestive heart failure type I50.9 and Pulmonary congestion R09.89 [facility] [id number] [place] [address] Apr, Cough R05 ; Congestive heart failure, unspecified congestive heart failure chronicity, unspecified congestive heart failure type I50.9 and Pulmonary congestion R09.89 [facility] [id number] [place] [address] Mar, Hematuria R31.9 [facility] [id number] [place] [address] Mar, [facility] [id number] [place] [address] Mar, Anticoagulant long-term use Z79.01 [facility] [id number] [place] [address] Mar, [facility] [address] [address] Mar, Hematuria R31.9 and Infective urethritis N34.2 [facility] [id number] [place] [address] Mar, Anticoagulant long-term use Z79.01 [facility] [id number] [place] [address] Mar, Anticoagulant long-term use Z79.01 [facility] [id number] [place] [address] Mar, [facility] [id number] [place] [address] Mar, Anticoagulant long-term use Z79.01 [facility] [id number] [place] [address] Feb, Peristomal skin breakdown L98.499 [facility] [id number] [place] [address] Feb, [facility] [id number] [place] [address] Feb, UTI (urinary tract infection) N39.0 [facility] [address] [address] Jan, [facility] [id number] [place] [address] Dec, High risk medication use V58.69 [facility] [id number] [place] [address] Nov, High risk medication use V58.69 [facility] [id number] [place] [address] Nov, [facility] [id number] [address] Nov, UTI (lower urinary tract infection) 599.0 ; URI, acute 465.9 ; Insomnia 780.52 ; Anxiety 300.00 and Lower limb amputation, unspecified level V49.70 [facility] [address] [address] Oct, UTI (lower urinary tract infection) 599.0 ; URI, acute 465.9 ; Insomnia 780.52 ; Anxiety 300.00 and Lower limb amputation, unspecified level V49.70 [facility] [address] [id number] [address] Aug, [facility] [address] [address] Aug, [facility] [address] [address] Jul, [facility] [address] [address] Jul, [facility] [address] [address] Jun, [facility] [address] [address] Jun, [facility] [address] [address] Mar, [facility] [address] [address] Mar, [facility] [address] [address] Mar, [facility] [address] [address] Mar, [facility] [address] [address] Mar, [facility] [id number] [address] Feb, [facility] [place] [facility] [address] [id number] [place] [address] 30 Feb, 2013 [facility] [place] [facility] [address] [id number] [place] [address] 29 Feb, 2013 [facility] [place] [facility] [address] [id number] [place] [address] Feb, 2013 [facility] [place] [facility] [address] [id number] [place] [address] Feb, 2013 [facility] [place] [facility] [address] [id number] [place] [address] Feb, 2013 [facility] [place] [facility] [address] [id number] [place] [address] Feb, 2013 [facility] [place] [facility] [address] [id number] [place] [address] Feb, 2013 [facility] [place] [facility] [address] [id number] [place] [address] Feb, 2013 [facility] [place] [facility] [address] [id number] [place] [address] Feb, [facility] [place] [facility] [address] [id number] [place] [address] Feb, [facility] [place] [facility] [address] [id number] [place] [address] Feb, [facility] [place] [facility] [address] [id number] [place] [address] Feb, 2013 [facility] [place] [facility] [address] [id number] [place] [address] Feb, [facility] [place] [facility] [address] [id number] [place] [address] Feb, [facility] [place] [facility] [address] [id number] [place] [address] Feb, [facility] [place] [facility] [address] [id number] [place] [address] Jan, 2013 [facility] [place] [facility] [address] [id number] [place] [address] Jan, 2013 [facility] [place] [facility] [address] [id number] [place] [address] Jan, 2013 [facility] [place] [facility] [address] [id number] [place] [address] Jan, 2013 [facility] [place] [facility] [address] [id number] [place] [address] Jan, 2013 [facility] [place] [facility] [address] [id number] [place] [address] Nov, [facility] [place] [facility] [address] [id number] [place] [address] Nov, [facility] [place] [facility] [address] [id number] [place] [address] Nov, [facility] [place] [facility] [address] [id number] [place] [address] Nov, [facility] [place] [facility] [address] [id number] [place] [address] Nov, [facility] [place] [facility] [address] [id number] [place] [address] Nov, [facility] [place] [facility] [address] [id number] [place] [address] Oct, [facility] [place] [facility] [address] [id number] [place] [address] Oct, [facility] [place] [facility] [address] [id number] [place] [address] Oct, [facility] [place] [facility] [address] [id number] [place] [address] Oct, [facility] [place] [facility] [address] [id number] [place] [address] Oct, [facility] [place] [facility] [address] [id number] [place] [address] Oct, [facility] [address] [id number] [place] [address] Oct, [facility] [place] [facility] [address] [id number] [place] [address] September, [facility] [place] [facility] [address] [id number] [place] [address] September, [facility] [place] [facility] [address] [id number] [place] [address] September, [facility] [place] [facility] [address] [id number] [place] [address] September, [facility] [place] [facility] [address] [id number] [place] [address] September, [facility] [address] [id number] [place] [address] September, [facility] [place] [facility] [address] [id number] [place] [address] September, [facility] [place] [facility] [address] [id number] [place] [address] September, [facility] [place] [facility] [address] [id number] [place] [address] Aug, [facility] [place] [facility] [address] [id number] [place] [address] Aug, [facility] [place] [facility] [address] [id number] [place] [address] Aug, [facility] [place] [facility] [address] [id number] [place] [address] Aug, [facility] [place] [facility] [address] [id number] [place] [address] Jul, [facility] [place] [facility] [address] [id number] [place] [address] Jul, [facility] [place] [facility] [address] [id number] [place] [address] Jun, [facility] [place] [facility] [address] [id number] [place] [address] Jun, [facility] [place] [facility] [address] [id number] [place] [address] Jun, [facility] [place] [facility] [address] [id number] [place] [address] Jun, [facility] [place] [facility] [address] [id number] [place] [address] Jun, [facility] [place] [facility] [address] [id number] [place] [address] Jun, [facility] [place] [facility] [address] [facility] [id number] [place] [address] May, [facility] [place] [facility] [address] [id number] [place] [address] May, [facility] [place] [facility] [address] [facility] [id number] [place] [address] May, [facility] [place] [facility] [address] [facility] [id number] [place] [address] May, [facility] [place] [facility] [address] [facility] [id number] [place] [address] May, [facility] [place] [facility] [address] [id number] [place] [address] May, [facility] [place] [facility] [address] [id number] [place] [address] Feb, [facility] [place] [facility] [address] [id number] [place] [address] Feb, [facility] [place] [facility] [address] [id number] [place] [address] Feb, [facility] [place] [facility] [address] [id number] [place] [address] Feb, [facility] [address] [id number] [place] [address] Jan, [facility] [place] [facility] [address] [id number] [place] [address] Jan, [facility] [address] [id number] [place] [address] Jan, [facility] [address] [id number] [place] [address] Dec, [facility] [address] [id number] [place] [address] Nov, [facility] [address] [id number] [place] [address] Nov, [facility] [address] [id number] [place] [address] Nov, [facility] [address] [id number] [place] [address] Nov, [facility] [address] [id number] [place] [address] Nov, [facility] [address] [id number] [place] [address] Oct, [facility] [address] [id number] [place] [address] September, [facility] [place] [facility] [address] [id number] [place] [address] September, [facility] [place] [facility] [address] [id number] [place] [address] Aug, [facility] [place] [facility] [address] [id number] [place] [address] Aug, [facility] [place] [facility] [address] [id number] [place] [address] Jul, [facility] [place] [facility] [address] [id number] [place] [address] Jul, [facility] [place] [facility] [address] [id number] [place] [address] Jul, [facility] [place] [facility] [address] [id number] [place] [address] Jul, [facility] [place] [facility] [address] [id number] [place] [address] Jun, [facility] [place] [facility] [address] [id number] [place] [address] Jun, [facility] [place] [facility] [address] [id number] [place] [address] Jun, [facility] [place] [facility] [address] [id number] [place] [address] May, [facility] [place] [facility] [address] [id number] [place] [address] May, [facility] [place] [facility] [address] [id number] [place] [address] May, [facility] [place] [facility] [address] [id number] [place] [address] May, [facility] [place] [facility] [address] [id number] [place] [address] Apr, [facility] [place] [facility] [address] [id number] [place] [address] Apr, [facility] [place] [facility] [address] [id number] [place] [address] Apr, [facility] [place] [facility] [address] [id number] [place] [address] Apr, [facility] [place] [facility] [address] [id number] [place] [address] Apr, [facility] [place] [facility] [address] [id number] [place] [address] Apr, [facility] [place] [facility] [address] [id number] [place] [address] Mar, [facility] [place] [facility] [address] [id number] [place] [address] Mar, [facility] [place] [facility] [address] [facility] [id number] [place] [address] Mar, [facility] [place] [facility] [address] [id number] [place] [address] Mar, [facility] [place] [facility] [address] [id number] [place] [address] Mar, [facility] [place] [facility] [address] [id number] [place] [address] Mar, [facility] [place] [facility] [address] [facility] [id number] [place] [address] Feb, [facility] [place] [facility] [address] [id number] [place] [address] Feb, [facility] [place] [facility] [address] [id number] [place] [address] Feb, [facility] [place] [facility] [address] [facility] [id number] [place] [address] Feb, [facility] [place] [facility] [address] [id number] [place] [address] Jan, [facility] [place] [facility] [address] [id number] [place] [address] 25 Jan, 2012 [facility] [place] [facility] [address] [id number] [place] [address] 24 Jan, 2012 [facility] [place] [facility] [address] [facility] [id number] [place] [address] 10 Jan, 2012 [facility] [place] [facility] [address] [facility] [id number] [place] [address] Dec, [facility] [place] [facility] [address] [id number] [place] [address] Dec, [facility] [address] [id number] [place] [address] Nov, [facility] [address] [id number] [place] [address] Oct, [facility] [address] [id number] [place] [address] Oct, [facility] [address] [id number] [place] [address] Oct, [facility] [address] [id number] [place] [address] September, [facility] [address] [id number] [place] [address] September, [facility] [address] [id number] [place] [address] September, [facility] [address] [id number] [place] [address] September, [facility] [address] [id number] [place] [address] September, [facility] [address] [id number] [place] [address] September, [facility] [address] [id number] [place] [address] September, [facility] [address] [id number] [place] [address] Jul, [facility] [place] [facility] [address] [id number] [place] [address] Jul, [facility] [place] [facility] [address] [id number] [place] [address] Jun, [facility] [address] [id number] [place] [address] Jun, [facility] [address] [facility] [id number] [place] [address] 06 Jun, 2011 [facility] [address] [facility] [id number] [place] [address] May, [facility] [address] [facility] [id number] [place] [address] 29 Mar, 2011 [facility] [address] [facility] [id number] [place] [address] Mar, [facility] [address] [facility] [id number] [place] [address] Mar, [facility] [address] [facility] [id number] [place] [address] 31 Feb, 2011 [facility] [address] [facility] [id number] [place] [address] Feb, [facility] [address] [id number] [place] [address] Dec, [facility] [address] [facility] [id number] [place] [address] May, [facility] [address] [facility] [id number] [place] [address] Apr, [facility] [address] [facility] [id number] [place] [address] Apr, [facility] [address] [facility] [id number] [place] [address] 14 Apr, 2009 [facility] [address] [facility] [id number] [place] [address] Apr, [facility] [address] [facility] [id number] [place] [address] 30 Feb, 2009 [facility] [address] [facility] [id number] [place] [address] Oct, IMMUNIZATIONS No Known Immunizations SOCIAL HISTORY Never Assessed REASON FOR VISIT Lab (walk-in) PLAN OF CARE VITAL SIGNS MEDICATIONS Unknown Medications RESULTS Name Result Date Reference Range INR (IN HOUSE) 2018-01-10 INR 1.6 1.10 - 3.30 PREVIOUS INR 4.0 CURRENT COUMADIN DOSE 1 mg qd NEW COUMADIN DOSE Lot # [id number] Exp date 09/2018 PROCEDURES Procedure Date Ordered Result Body Site PROTHROMBIN TIME Jan 10, 2018 INSTRUCTIONS MEDICATIONS ADMINISTERED No Known Medications [...] toe removal 06/25/2009 Hospitalization History pneumonia, hypoxia-[facility] 11/03/16
--- OUTSIDE RECORDS SUMMARY | 2018-12-05 11:48 | XMS REPORT ---
Author Author ERIK SAMAYOA Organization [facility] [place] Address [address] [place] [address] Care Team Providers Care Cheese Tester Name Role Phone ERIK SAMAYOA Unavailable PROBLEMS Type Condition ICD9-CM Code QTH64-XB Code Onset Dates Condition Status SNOMED Code Problem Mood disorder F39 Active 57128004 Problem PVD (peripheral vascular disease) I73.9 Active 439544727 Problem Amput leg, unil NOS-comp S88.919A Active 31273785 Problem Acute cystitis with hematuria N30.01 Active 66310673 Problem Major depressive disorder, single episode, unspecified F32.9 Active 52956034 Problem Anticoagulant long-term use Z79.01 Active 429225523 Problem Vitamin B12 deficiency E53.8 Dec, Active 862261136 Problem Chronic obstructive pulmonary disease, unspecified COPD type J44.9 Active 69338994 Problem Congestive heart failure, unspecified congestive heart failure chronicity, unspecified congestive heart failure type I50.9 Active 37976510 Problem Chronic fatigue, unspecified R53.82 Active 509088582 Problem Peripheral vascular disease I73.9 Active 412303166 Problem Chronic fatigue R53.82 Active 73887829 ALLERGIES No Information ENCOUNTERS Encounter Location Date Diagnosis [place] [id number], [place] [address] Jan, Vitamin B12 deficiency E53.8 [facility] [place] [id number], [place] [address] Jan, Anticoagulant long-term use Z79.01 [facility] [place] [id number] [address] Jan, Major depressive disorder, single episode, unspecified F32.9 [facility] [place] [id number], [place] [address] Jan, [place] [address], [place] [address] Jan, Anticoagulant long-term use Z79.01 [place] [id number] [place] [address] Dec, Anticoagulant long-term use Z79.01 [place] [id number] [place] [address] Dec, Vitamin B12 deficiency E53.8 [place] [id number] [place] [address] Dec, Major depressive disorder, single episode, unspecified F32.9 [place] [id number] [place] [address] Nov, Vitamin B 12 deficiency E53.8 [place] [id number] [place] [address] Nov, Anticoagulant long-term use Z79.01 ; Mood disorder F39 ; Chronic obstructive pulmonary disease, unspecified COPD type J44.9 ; Peripheral vascular disease I73.9 and Chronic fatigue R53.82 [place] [id number] [place] [address] Nov, Mood disorder F39 [place] [id number] [place] [address] Nov, [place] [id number] [place] [address] Oct, Mood disorder F39 ; Chronic obstructive pulmonary disease, unspecified COPD type J44.9 ; Peripheral vascular disease I73.9 and Chronic fatigue R53.82 [place] [id number] [place] [address] September, Anticoagulant long-term use Z79.01 and Congestive heart failure, unspecified congestive heart failure chronicity, unspecified congestive heart failure type I50.9 [place] [address] [place] [address] September, Vitamin B12 deficiency E53.8 [facility] [place] [id number] [place] [address] September, Anticoagulant long-term use Z79.01 [facility] [place] [id number] [place] [address] September, Anticoagulant long-term use Z79.01 and Congestive heart failure, unspecified congestive heart failure chronicity, unspecified congestive heart failure type I50.9 [place] [id number] [place] [address] Aug, Chronic fatigue, unspecified R53.82 [place] [address] [address] Aug, Anticoagulant long-term use Z79.01 [place] [id number] [place] [address] Aug, Nausea R11.0 and Weakness R53.1 [place] [id number] [place] [address] Aug, [facility] [address] [address] Aug, Hematuria R31.9 and Acute cystitis with hematuria N30.01 [place] [id number] [place] [address] Aug, [place] [id number] [place] [address] Jul, Vitamin B 12 deficiency E53.8 [place] [id number] [place] [address] Jul, Anticoagulant long-term use Z79.01 [place] [id number] [place] [address] Jun, Chronic fatigue, unspecified R53.82 [place] [address] [address] Jun, Anticoagulant long-term use Z79.01 [place] [address] [place] [address] May, Flu-like symptoms R68.89 and Influenza A J10.1 [place] [id number] [place] [address] May, [place] [id number] [place] [address] May, Chronic fatigue, unspecified R53.82 [place] [id number] [place] [address] May, Anticoagulant long-term use Z79.01 [place] [id number] [place] [address] Apr, Medicare welcome exam Z00.00 ; Anticoagulant long-term use Z79.01 ; Medicare annual wellness visit, initial Z00.00 ; Medicare annual wellness visit, subsequent Z00.00 and Chronic fatigue, unspecified R53.82 [place] [id number] [place] [address] Mar, Chronic fatigue, unspecified R53.82 [place] [id number] [place] [address] Mar, Anticoagulant long-term use Z79.01 [place] [id number] [place] [address] Mar, Anticoagulant long-term use Z79.01 and Hematuria R31.9 [place] [id number] [place] [address] Mar, Hematuria R31.9 [place] [id number] [place] [address] Feb, Anticoagulant long-term use Z79.01 [place] [id number] [place] [address] Feb, Anticoagulant long-term use Z79.01 [facility] [place] [address], [place] [address] Feb, Anticoagulant long-term use Z79.01 [facility] [place] [id number] [place] [address] Feb, Chronic fatigue, unspecified R53.82 [place] [id number] [place] [address] Feb, Anticoagulant long-term use Z79.01 [place] [id number] [place] [address] Feb, Congestive heart failure, unspecified congestive heart failure chronicity, unspecified congestive heart failure type I50.9 [place] [id number] [place] [address] Feb, Congestive heart failure, unspecified congestive heart failure chronicity, unspecified congestive heart failure type I50.9 [facility] [place] [id number] [place] [address] Feb, [place] [id number] [place] [address] Jan, Anticoagulant long-term use Z79.01 [place] [id number] [place] [address] Jan, [place] [id number] [place] [address] Jan, Anticoagulant long-term use Z79.01 and Hematuria R31.9 [place] [id number] [place] [address] Jan, Anticoagulant long-term use Z79.01 [place] [id number] [place] [address] Jan, Chronic fatigue, unspecified R53.82 [place] [id number] [place] [address] Jan, Anticoagulant long-term use Z79.01 [facility] [place] [address] [place] [address] Dec, Chronic fatigue, unspecified R53.82 [place] [id number] [place] [address] Dec, [place] [id number] [place] [address] Dec, Chronic fatigue, unspecified R53.82 and Encounter for therapeutic drug level monitoring Z51.81 [place] [id number] [place] [address] Nov, Encounter for therapeutic drug level monitoring Z51.81 [place] [id number] [place] [address] Nov, Hematuria R31.9 [place] [id number] [place] [address] Nov, Hematuria R31.9 ; Anticoagulant long-term use Z79.01 and PVD (peripheral vascular disease) I73.9 [place] [id number] [place] [address] Nov, Anticoagulant long-term use Z79.01 [place] [id number] [place] [address] Nov, Anticoagulant long-term use Z79.01 [facility] [place] [id number] [place] [address] Nov, [place] [id number] [place] [address] Nov, Hematuria R31.9 and Acute cystitis with hematuria N30.01 [facility] [place] [id number] [place] [id number] Oct, [place] [id number] [place] [address] Oct, [place] [address] [address] Oct, Hematuria R31.9 [place] [address] [address] Oct, Hematuria R31.9 [facility] [place] [address] [address] Oct, Anticoagulant long-term use Z79.01 [place] [address] [address] Oct, Anticoagulant long-term use Z79.01 [place] [address] [address] Oct, [place] [address] [address] September, PVD (peripheral vascular disease) I73.9 ; Amput leg, unil NOS-comp S88.919A ; Acute cystitis without hematuria N30.00 ; Anticoagulant long-term use Z79.01 and Hypokalemia E87.6 [place] [address] [address] Aug, Anticoagulant long-term use Z79.01 and Bronchitis J40 [place] [address] [address] Jul, [place] [address] [address] Jul, Anticoagulant long-term use Z79.01 and Mood disorder F39 [place] [address] [address] Jul, [place] [address] [address] May, [place] [address] [address] May, Hypokalemia E87.6 [facility] [place] [id number] [place] [address] May, Mood disorder F39 [facility] [place] [address] [address] May, Anticoagulant long-term use Z79.01 [facility] [place] [id number] [place] [address] Apr, Anticoagulant long-term use Z79.01 [facility] [place] [address] [address] Apr, Anticoagulant long-term use Z79.01 [facility] [place] [address] [address] Apr, [facility] [place] [address] [address] Apr, Anticoagulant long-term use Z79.01 [facility] [place] [address] [address] Apr, Anticoagulant long-term use Z79.01 [facility] [place] [address] [address] Apr, Anticoagulant long-term use Z79.01 [facility] [place] [id number] [place] [address] Mar, [facility] [place] [id number] [place] [address] Mar, [facility] [place] [id number] [place] [address] Mar, Anticoagulant long-term use Z79.01 [facility] [place] [id number] [place] [address] 24 Feb, 2016 [facility] [place] [id number] [place] [address] Feb, [facility] [place] [address] [place] [address] 07 Feb, 2016 Anticoagulant long-term use Z79.01 [facility] [place] [id number] [place] [address] Feb, Anticoagulant long-term use Z79.01 [facility] [place] [id number] [place] [address] Jan, [facility] [place] [address] [address] Jan, Anticoagulant long-term use Z79.01 [facility] [place] [id number] [place] [address] Jan, Anticoagulant long-term use Z79.01 [facility] [place] [id number] [place] [address] Dec, Anticoagulant long-term use Z79.01 [facility] [place] [id number] [place] [address] Dec, Anticoagulant long-term use Z79.01 [facility] [place] [id number] [place] [address] Dec, Anticoagulant long-term use Z79.01 and Mood disorder F39 [facility] [place] [id number] [place] [address] Dec, [facility] [place] [id number] [place] [address] Nov, [facility] [place] [id number] [place] [address] Nov, Anticoagulant long-term use Z79.01 [facility] [place] [id number] [place] [address] Nov, Anticoagulant long-term use Z79.01 [facility] [place] [id number] [place] [address] September, Anticoagulant long-term use Z79.01 [place] [id number] [place] [address] Jul, Anticoagulant long-term use Z79.01 [facility] [place] [id number] [place] [address] May, Anticoagulant long-term use Z79.01 [place] [id number] [place] [address] May, Anticoagulant long-term use Z79.01 [place] [id number] [place] [address] May, Anticoagulant long-term use Z79.01 [place] [address] [address] May, Anticoagulant long-term use Z79.01 [place] [id number] [place] [address] May, [place] [address] [address] May, Congestive heart failure, unspecified congestive heart failure chronicity, unspecified congestive heart failure type I50.9 and Pulmonary congestion R09.89 [place] [id number] [place] [address] Apr, Cough R05 ; Congestive heart failure, unspecified congestive heart failure chronicity, unspecified congestive heart failure type I50.9 and Pulmonary congestion R09.89 [place] [id number] [place] [address] Mar, Hematuria R31.9 [place] [id number] [place] [address] Mar, [place] [id number] [place] [address] Mar, Anticoagulant long-term use Z79.01 [place] [id number] [place] [address] Mar, [facility] [place] [address], [place] [address] Mar, Hematuria R31.9 and Infective urethritis N34.2 [facility] [place] [address] [place] [address] Mar, Anticoagulant long-term use Z79.01 [facility] [place] [address] [place] [address] Mar, Anticoagulant long-term use Z79.01 [facility] [place] [address] [place] [address] Mar, [facility] [place] [id number] [place] [address] Mar, Anticoagulant long-term use Z79.01 [facility] [place] [address] [place] [address] Feb, Peristomal skin breakdown L98.499 [facility] [place] [address] [place] [address] Feb, [facility] [place] [id number] [place] [address] Feb, UTI (urinary tract infection) N39.0 [facility] [place] [address], [place] [address] Jan, [facility] [place] [id number] [place] [address] Dec, High risk medication use V58.69 [facility] [place] [address] [place] [address] Nov, High risk medication use V58.69 [facility] [place] [address] [place] [address] Nov, [facility] [place] [id number] [address] Nov, UTI (lower urinary tract infection) 599.0 ; URI, acute 465.9 ; Insomnia 780.52 ; Anxiety 300.00 and Lower limb amputation, unspecified level V49.70 [facility] [place] [address], [place] [address] Oct, UTI (lower urinary tract infection) 599.0 ; URI, acute 465.9 ; Insomnia 780.52 ; Anxiety 300.00 and Lower limb amputation, unspecified level V49.70 [facility] [place] [address] [id number] [address] Aug, [facility] [place] [address], [place] [address] Aug, [facility] [place] [address], [place] [address] Jul, [facility] [place] [address], [place] [address] Jul, [facility] [place] [address], [place] [address] Jun, [facility] [place] [id number], [place] [address] Jun, [facility] [place] [id number], [place] [address] Mar, [facility] [place] [id number], [place] [address] Mar, [facility] [place] [address], [place] [address] Mar, [facility] [place] [address], [place] [address] Mar, [facility] [place] [id number], [place] [address] Mar, [facility] [place] [id number], [place] [address] Feb, [facility] [place] [facility] [address] [id number] [place] [address] 30 Feb, 2013 [facility] [place] [facility] [address] [id number] [place] [address] 29 Feb, 2013 [facility] [place] [facility] [address] [id number] [place] [address] Feb, 2013 [facility] [place] [facility] [address] [id number] [place] [address] Feb, 2013 [facility] [place] [facility] [address] [id number] [place] [address] Feb, 2013 [facility] [place] [facility] [address] [id number] [place] [address] Feb, 2013 [facility] [place] [facility] [address] [id number] [place] [address] Feb, 2013 [facility] [place] [facility] [address] [id number] [place] [address] Feb, 2013 [facility] [place] [facility] [address] [id number] [place] [address] Feb, [facility] [place] [facility] [address] [id number] [place] [address] Feb, [facility] [place] [facility] [address] [id number] [place] [address] Feb, [facility] [place] [facility] [address] [id number] [place] [address] Feb, 2013 [facility] [place] [facility] [address] [id number] [place] [address] Feb, [facility] [place] [facility] [address] [id number] [place] [address] Feb, [facility] [place] [facility] [address] [id number] [place] [address] Feb, [facility] [place] [facility] [address] [id number] [place] [address] Jan, 2013 [facility] [place] [facility] [address] [id number] [place] [address] Jan, 2013 [facility] [place] [facility] [address] [id number] [place] [address] Jan, 2013 [facility] [place] [facility] [address] [id number] [place] [address] Jan, 2013 [facility] [place] [facility] [address] [id number] [place] [address] Jan, 2013 [facility] [place] [facility] [address] [id number] [place] [address] Nov, [facility] [place] [facility] [address] [id number] [place] [address] Nov, [facility] [place] [facility] [address] [id number] [place] [address] Nov, [facility] [place] [facility] [address] [id number] [place] [address] Nov, [facility] [place] [facility] [address] [id number] [place] [address] Nov, [facility] [place] [facility] [address] [id number] [place] [address] Nov, [facility] [place] [facility] [address] [id number] [place] [address] Oct, [facility] [place] [facility] [address] [id number] [place] [address] Oct, [facility] [place] [facility] [address] [id number] [place] [address] Oct, [facility] [place] [facility] [address] [id number] [place] [address] Oct, [facility] [place] [facility] [address] [id number] [place] [address] Oct, [facility] [place] [facility] [address] [address] [id number] [place] [address] Oct, [facility] [address] [id number] [place] [address] Oct, [facility] [place] [facility] [address] [id number] [place] [address] September, [facility] [place] [facility] [address] [id number] [place] [address] September, [facility] [place] [facility] [address] [id number] [place] [address] September, [facility] [place] [facility] [address] [id number] [place] [address] September, [facility] [place] [facility] [address] [id number] [place] [address] September, [facility] [address] [id number] [place] [address] September, [facility] [place] [facility] [address] [id number] [place] [address] September, [facility] [place] [facility] [address] [id number] [place] [address] September, [facility] [place] [facility] [address] [id number] [place] [address] Aug, [facility] [place] [facility] [address] [id number] [place] [address] Aug, [facility] [place] [facility] [address] [id number] [place] [address] Aug, [facility] [place] [facility] [address] [id number] [place] [address] Aug, [facility] [place] [facility] [address] [id number] [place] [address] Jul, [facility] [place] [facility] [address] [id number] [place] [address] Jul, [facility] [place] [facility] [address] [id number] [place] [address] Jun, [facility] [place] [facility] [address] [id number] [place] [address] Jun, [facility] [place] [facility] [address] [id number] [place] [address] Jun, [facility] [place] [facility] [address] [id number] [place] [address] Jun, [facility] [place] [facility] [address] [id number] [place] [address] Jun, [facility] [place] [facility] [address] [id number] [place] [address] Jun, [facility] [place] [facility] [address] [facility] [id number] [place] [address] May, [facility] [place] [facility] [address] [id number], [place] [address] May, [facility] [place] [facility] [address] [facility] [id number], [place] [address] May, [facility] [place] [facility] [address] [facility] [id number], [place] [address] May, [facility] [place] [facility] [address] [facility] [id number][place] [address] May, [facility] [place] [facility] [address] [id number], [place] [address] May, [facility] [place] [facility] [address] [id number], [place] [address] Feb, [facility] [place] [facility] [address] [id number], [place] [address] Feb, [facility] [place] [facility] [address] [id number], [place] [address] Feb, [facility] [place] [facility] [address] [id number], [place] [address] Feb, [facility] [address] [id number] [place] [address] Jan, [facility] [place] [facility] [address] [id number] [place] [address] Jan, [facility] [address] [id number] [place] [address] Jan, [facility] [address] [id number] [place] [address] Dec, [facility] [address] [id number] [place] [address] Nov, [facility] [address] [id number] [place] [address] Nov, [facility] [address] [id number] [place] [address] Nov, [facility] [address] [id number] [place] [address] Nov, [facility] [address] [id number] [place] [address] Nov, [facility] [address] [id number] [place] [address] Oct, [facility] [address] [id number] [place] [address] September, [facility] [place] [facility] [address] [id number] [place] [address] September, [facility] [place] [facility] [address] [id number] [place] [address] Aug, [facility] [place] [facility] [address] [id number] [place] [address] Aug, [facility] [place] [facility] [address] [id number] [place] [address] Jul, [facility] [place] [facility] [address] [id number] [place] [address] Jul, [facility] [place] [facility] [address] [id number] [place] [address] Jul, [facility] [place] [facility] [address] [id number] [place] [address] Jul, [facility] [place] [facility] [address] [id number] [place] [address] Jun, [facility] [place] [facility] [address] [id number] [place] [address] Jun, [facility] [place] [facility] [address] [id number] [place] [address] Jun, [facility] [place] [facility] [address] [id number] [place] [address] May, [facility] [place] [facility] [address] [id number] [place] [address] May, [facility] [place] [facility] [address] [id number] [place] [address] May, [facility] [place] [facility] [address] [id number] [place] [address] May, [facility] [place] [facility] [address] [id number] [place] [address] Apr, [facility] [place] [facility] [address] [id number] [place] [address] Apr, [facility] [place] [facility] [address] [id number] [place] [address] Apr, [facility] [place] [facility] [address] [id number] [place] [address] Apr, [facility] [place] [facility] [address] [id number] [place] [address] Apr, [facility] [place] [facility] [address] [id number] [place] [address] Apr, [facility] [place] [facility] [address] [id number] [place] [address] Mar, [facility] [place] [facility] [address] [id number] [place] [address] Mar, [facility] [place] [facility] [address] [facility] [id number] [place] [address] Mar, [facility] [place] [facility] [address] [id number] [place] [address] Mar, [facility] [place] [facility] [address] [id number] [place] [address] Mar, [facility] [place] [facility] [address] [id number] [place] [address] Mar, [facility] [place] [facility] [address] [facility] [id number] [place] [address] Feb, [facility] [place] [facility] [address] [id number], [place] [address] Feb, [facility] [place] [facility] [address] [id number] [place] [address] Feb, [facility] [place] [facility] [address] [facility] [id number] [place] [address] Feb, [facility] [place] [facility] [address] [id number] [address] Jan, [facility] [place] [facility] [address] [id number], [place] [address] 25 Jan, 2012 [facility] [place] [facility] [address] [id number] [place] [address] 24 Jan, 2012 [facility] [place] [facility] [address] [facility] [id number] [address] 10 Jan, 2012 [facility] [place] [facility] [address] [facility] [id number], [place] [address] Dec, [facility] [place] [facility] [address] [id number] [place] [address] Dec, [facility] [address] [id number] [place] [address] Nov, [facility] [address] [id number] [place] [address] Oct, [facility] [address] [id number] [place] [address] Oct, [facility] [address] [id number] [place] [address] Oct, [facility] [address] [id number] [place] [address] September, [facility] [address] [id number] [place] [address] September, [facility] [address] [id number] [place] [address] September, [facility] [address] [id number] [place] [address] September, [facility] [address] [id number] [place] [address] September, [facility] [address] [id number] [place] [address] September, [facility] [address] [id number] [place] [address] September, [facility] [address] [id number] [place] [address] Jul, [facility] [place] [facility] [address] [id number] [place] [address] Jul, [facility] [place] [facility] [address] [id number] [place] [address] Jun, [facility] [address] [id number] [place] [address] Jun, [facility] [address] [facility] [id number], [place] [address] 06 Jun, 2011 [facility] [address] [facility] [id number], [place] [address] May, [facility] [address] [facility] [id number], [place] [address] 29 Mar, 2011 [facility] [address] [facility] [id number] [place] [address] Mar, [facility] [address] [facility] [id number] [place] [address] Mar, [facility] [address] [facility] [id number] [place] [address] 31 Feb, 2011 [facility] [address] [facility] [id number] [place] [address] Feb, [facility] [address] [id number], [place] [address] Dec, [facility] [address] [facility] [id number], [place] [address] May, [facility] [address] [facility] [id number], [place] [address] Apr, [facility] [address] [facility] [id number][place] [address] Apr, [facility] [address] [facility] [id number][place] [address] 14 Apr, 2009 [facility] [address] [facility] [id number], [place] [address] Apr, [facility] [address] [facility] [id number] [address] 30 Feb, 2009 [facility] [address] [facility] [id number], [place] [address] Oct, IMMUNIZATIONS No Known Immunizations SOCIAL HISTORY Never Assessed REASON FOR VISIT Lab (walk-in) PLAN OF CARE VITAL SIGNS MEDICATIONS Unknown Medications RESULTS Name Result Date Reference Range INR (IN HOUSE) 2017-12-27 INR 4.0 1.10 - 3.30 PREVIOUS INR 2.4 CURRENT COUMADIN DOSE 1 mg qd NEW COUMADIN DOSE Lot # [id number] Exp date 07/2018 PROCEDURES Procedure Date Ordered Result Body Site PROTHROMBIN TIME Dec 27, 2017 INSTRUCTIONS MEDICATIONS ADMINISTERED No Known Medications MEDICAL [...] 5th toe removal 06/25/2009 Hospitalization History pneumonia, hypoxia-[facility] 11/03/16
--- OUTSIDE RECORDS SUMMARY | 2018-12-05 11:49 | XMS REPORT ---
Author Author ERIK SAMAYOA Organization [facility] Address [address] [place] [address] Care Team Providers Care Concept Artist Name Role Phone ERIK SAMAYOA Unavailable PROBLEMS Type Condition ICD9-CM Code IPP08-TM Code Onset Dates Condition Status SNOMED Code Problem Mood disorder F39 Active 53761484 Problem PVD (peripheral vascular disease) I73.9 Active 161827732 Problem Amput leg, unil NOS-comp S88.919A Active 62059779 Problem Acute cystitis with hematuria N30.01 Active 74729936 Problem Major depressive disorder, single episode, unspecified F32.9 Active 82163806 Problem Anticoagulant long-term use Z79.01 Active 741602949 Problem Vitamin B12 deficiency E53.8 Dec, Active 700371264 Problem Chronic obstructive pulmonary disease, unspecified COPD type J44.9 Active 42095569 Problem Congestive heart failure, unspecified congestive heart failure chronicity, unspecified congestive heart failure type I50.9 Active 92453380 Problem Chronic fatigue, unspecified R53.82 Active 724636400 Problem Peripheral vascular disease I73.9 Active 643252856 Problem Chronic fatigue R53.82 Active 98881159 ALLERGIES No Information ENCOUNTERS Encounter Location Date Diagnosis [place] [id number], [place] [address] Jan, Vitamin B12 deficiency E53.8 [facility] [id number] [address] Jan, Anticoagulant long-term use Z79.01 [facility] [id number] [address] Jan, Major depressive disorder, single episode, unspecified F32.9 [facility] [id number] [address] Jan, [place] [address] [address] Jan, Anticoagulant long-term use Z79.01 [place] [id number] [place] [address] Dec, Anticoagulant long-term use Z79.01 [place] [id number] [place] [address] Dec, Vitamin B12 deficiency E53.8 [place] [id number] [place] [address] Dec, Major depressive disorder, single episode, unspecified F32.9 [place] [id number] [place] [address] Nov, Vitamin B 12 deficiency E53.8 [place] [id number] [place] [address] Nov, Anticoagulant long-term use Z79.01 ; Mood disorder F39 ; Chronic obstructive pulmonary disease, unspecified COPD type J44.9 ; Peripheral vascular disease I73.9 and Chronic fatigue R53.82 [place] [id number] [place] [address] Nov, Mood disorder F39 [place] [id number] [place] [address] Nov, [place] [id number] [place] [address] Oct, Mood disorder F39 ; Chronic obstructive pulmonary disease, unspecified COPD type J44.9 ; Peripheral vascular disease I73.9 and Chronic fatigue R53.82 [place] [id number] [place] [address] September, Anticoagulant long-term use Z79.01 and Congestive heart failure, unspecified congestive heart failure chronicity, unspecified congestive heart failure type I50.9 [place] [address] [place] [address] September, Vitamin B12 deficiency E53.8 [facility] [id number] [place] [address] September, Anticoagulant long-term use Z79.01 [facility] [id number] [place] [address] September, Anticoagulant long-term use Z79.01 and Congestive heart failure, unspecified congestive heart failure chronicity, unspecified congestive heart failure type I50.9 [place] [id number] [place] [address] Aug, Chronic fatigue, unspecified R53.82 [place] [address] [address] Aug, Anticoagulant long-term use Z79.01 [place] [id number] [place] [address] Aug, Nausea R11.0 and Weakness R53.1 [place] [id number] [place] [address] Aug, [facility] [address] [address] Aug, Hematuria R31.9 and Acute cystitis with hematuria N30.01 [place] [id number] [place] [address] Aug, [place] [id number] [place] [address] Jul, Vitamin B 12 deficiency E53.8 [place] [id number] [place] [address] Jul, Anticoagulant long-term use Z79.01 [place] [id number] [place] [address] Jun, Chronic fatigue, unspecified R53.82 [place] [address] [address] Jun, Anticoagulant long-term use Z79.01 [place] [address] [place] [address] May, Flu-like symptoms R68.89 and Influenza A J10.1 [place] [id number] [place] [address] May, [place] [id number] [place] [address] May, Chronic fatigue, unspecified R53.82 [place] [id number] [place] [address] May, Anticoagulant long-term use Z79.01 [place] [id number] [place] [address] Apr, Medicare welcome exam Z00.00 ; Anticoagulant long-term use Z79.01 ; Medicare annual wellness visit, initial Z00.00 ; Medicare annual wellness visit, subsequent Z00.00 and Chronic fatigue, unspecified R53.82 [place] [id number] [place] [address] Mar, Chronic fatigue, unspecified R53.82 [place] [id number] [place] [address] Mar, Anticoagulant long-term use Z79.01 [place] [id number] [place] [address] Mar, Anticoagulant long-term use Z79.01 and Hematuria R31.9 [place] [id number] [place] [address] Mar, Hematuria R31.9 [place] [id number] [place] [address] Feb, Anticoagulant long-term use Z79.01 [place] [id number] [place] [address] Feb, Anticoagulant long-term use Z79.01 [facility] [address], [place] [address] Feb, Anticoagulant long-term use Z79.01 [facility] [id number] [place] [address] Feb, Chronic fatigue, unspecified R53.82 [place] [id number] [place] [address] Feb, Anticoagulant long-term use Z79.01 [place] [id number] [place] [address] Feb, Congestive heart failure, unspecified congestive heart failure chronicity, unspecified congestive heart failure type I50.9 [place] [id number] [place] [address] Feb, Congestive heart failure, unspecified congestive heart failure chronicity, unspecified congestive heart failure type I50.9 [facility] [address] [place] [address] Feb, [place] [id number] [place] [address] Jan, Anticoagulant long-term use Z79.01 [place] [id number] [place] [address] Jan, [place] [id number] [place] [address] Jan, Anticoagulant long-term use Z79.01 and Hematuria R31.9 [place] [id number] [place] [address] Jan, Anticoagulant long-term use Z79.01 [place] [id number] [place] [address] Jan, Chronic fatigue, unspecified R53.82 [place] [id number] [place] [address] Jan, Anticoagulant long-term use Z79.01 [facility] [address] [place] [address] Dec, Chronic fatigue, unspecified R53.82 [place] [id number] [place] [address] Dec, [place] [id number] [place] [address] Dec, Chronic fatigue, unspecified R53.82 and Encounter for therapeutic drug level monitoring Z51.81 [place] [id number] [place] [address] Nov, Encounter for therapeutic drug level monitoring Z51.81 [place] [id number] [place] [address] Nov, Hematuria R31.9 [place] [id number] [place] [address] Nov, Hematuria R31.9 ; Anticoagulant long-term use Z79.01 and PVD (peripheral vascular disease) I73.9 [place] [id number] [place] [address] Nov, Anticoagulant long-term use Z79.01 [place] [id number] [place] [address] Nov, Anticoagulant long-term use Z79.01 [facility] [id number] [place] [address] Nov, [place] [id number] [place] [address] Nov, Hematuria R31.9 and Acute cystitis with hematuria N30.01 [facility] [place] [id number] [place] [id number] Oct, [place] [id number] [place] [address] Oct, [place] [address] [address] Oct, Hematuria R31.9 [place] [address] [address] Oct, Hematuria R31.9 [facility] [address] [address] Oct, Anticoagulant long-term use Z79.01 [place] [address] [address] Oct, Anticoagulant long-term use Z79.01 [place] [address] [address] Oct, [place] [address] [address] September, PVD (peripheral vascular disease) I73.9 ; Amput leg, unil NOS-comp S88.919A ; Acute cystitis without hematuria N30.00 ; Anticoagulant long-term use Z79.01 and Hypokalemia E87.6 [place] [address] [address] Aug, Anticoagulant long-term use Z79.01 and Bronchitis J40 [place] [address] [address] Jul, [place] [address] [address] Jul, Anticoagulant long-term use Z79.01 and Mood disorder F39 [place] [address] [address] Jul, [place] [address] [address] May, [place] [address] [address] May, Hypokalemia E87.6 [facility] [id number] [place] [address] May, Mood disorder F39 [facility] [address] [address] May, Anticoagulant long-term use Z79.01 [facility] [id number] [place] [address] Apr, Anticoagulant long-term use Z79.01 [facility] [address] [address] Apr, Anticoagulant long-term use Z79.01 [facility] [address] [address] Apr, [facility] [address] [address] Apr, Anticoagulant long-term use Z79.01 [facility] [address] [address] Apr, Anticoagulant long-term use Z79.01 [facility] [address] [address] Apr, Anticoagulant long-term use Z79.01 [facility] [id number] [place] [address] Mar, [facility] [id number] [place] [address] Mar, [facility] [id number] [place] [address] Mar, Anticoagulant long-term use Z79.01 [facility] [id number] [place] [address] 24 Feb, 2016 [facility] [id number] [place] [address] Feb, [facility] [address] [place] [address] 07 Feb, 2016 Anticoagulant long-term use Z79.01 [facility] [id number] [place] [address] Feb, Anticoagulant long-term use Z79.01 [facility] [id number] [place] [address] Jan, [facility] [address] [address] Jan, Anticoagulant long-term use Z79.01 [facility] [id number] [place] [address] Jan, Anticoagulant long-term use Z79.01 [facility] [id number] [place] [address] Dec, Anticoagulant long-term use Z79.01 [facility] [id number] [place] [address] Dec, Anticoagulant long-term use Z79.01 [facility] [id number] [place] [address] Dec, Anticoagulant long-term use Z79.01 and Mood disorder F39 [facility] [id number] [place] [address] Dec, [facility] [id number] [place] [address] Nov, [facility] [id number] [place] [address] Nov, Anticoagulant long-term use Z79.01 [facility] [id number] [place] [address] Nov, Anticoagulant long-term use Z79.01 [facility] [id number] [place] [address] September, Anticoagulant long-term use Z79.01 [place] [id number] [place] [address] Jul, Anticoagulant long-term use Z79.01 [facility] [id number] [place] [address] May, Anticoagulant long-term use Z79.01 [place] [id number] [place] [address] May, Anticoagulant long-term use Z79.01 [place] [id number] [place] [address] May, Anticoagulant long-term use Z79.01 [place] [address] [address] May, Anticoagulant long-term use Z79.01 [place] [id number] [place] [address] May, [place] [address] [address] May, Congestive heart failure, unspecified congestive heart failure chronicity, unspecified congestive heart failure type I50.9 and Pulmonary congestion R09.89 [place] [id number] [place] [address] Apr, Cough R05 ; Congestive heart failure, unspecified congestive heart failure chronicity, unspecified congestive heart failure type I50.9 and Pulmonary congestion R09.89 [place] [id number] [place] [address] Mar, Hematuria R31.9 [place] [id number] [place] [address] Mar, [place] [id number] [place] [address] Mar, Anticoagulant long-term use Z79.01 [place] [id number] [place] [address] Mar, [facility] [address], [place] [address] Mar, Hematuria R31.9 and Infective urethritis N34.2 [facility] [address] [place] [address] Mar, Anticoagulant long-term use Z79.01 [facility] [address] [place] [address] Mar, Anticoagulant long-term use Z79.01 [facility] [address] [place] [address] Mar, [facility] [id number] [place] [address] Mar, Anticoagulant long-term use Z79.01 [facility] [address] [place] [address] Feb, Peristomal skin breakdown L98.499 [facility] [address] [place] [address] Feb, [facility] [id number] [place] [address] Feb, UTI (urinary tract infection) N39.0 [facility] [address], [place] [address] Jan, [facility] [address] [place] [address] Dec, High risk medication use V58.69 [facility] [address] [place] [address] Nov, High risk medication use V58.69 [facility] [address] [place] [address] Nov, [facility] [id number], [place] [address] Nov, UTI (lower urinary tract infection) 599.0 ; URI, acute 465.9 ; Insomnia 780.52 ; Anxiety 300.00 and Lower limb amputation, unspecified level V49.70 [facility] [address], [place] [address] Oct, UTI (lower urinary tract infection) 599.0 ; URI, acute 465.9 ; Insomnia 780.52 ; Anxiety 300.00 and Lower limb amputation, unspecified level V49.70 [facility] [address] [id number] [address] Aug, [facility] [address], [place] [address] Aug, [facility] [address], [place] [address] Jul, [facility] [address], [place] [address] Jul, [facility] [address], [place] [address] Jun, [facility] [address], [place] [address] Jun, [facility] [address], [place] [address] Mar, [facility] [address], [place] [address] Mar, [facility] [address], [place] [address] Mar, [facility] [address], [place] [address] Mar, [facility] [address], [place] [address] Mar, [facility] [id number] [address] Feb, [facility] [place] [facility] [address] [id number] [place] [address] 30 Feb, 2013 [facility] [place] [facility] [address] [id number] [place] [address] 29 Feb, 2013 [facility] [place] [facility] [address] [id number] [place] [address] Feb, 2013 [facility] [place] [facility] [address] [id number] [place] [address] Feb, 2013 [facility] [place] [facility] [address] [id number] [place] [address] Feb, 2013 [facility] [place] [facility] [address] [id number] [place] [address] Feb, 2013 [facility] [place] [facility] [address] [id number] [place] [address] Feb, 2013 [facility] [place] [facility] [address] [id number] [place] [address] Feb, 2013 [facility] [place] [facility] [address] [id number] [place] [address] Feb, [facility] [place] [facility] [address] [id number] [place] [address] Feb, [facility] [place] [facility] [address] [id number] [place] [address] Feb, [facility] [place] [facility] [address] [id number] [place] [address] Feb, 2013 [facility] [place] [facility] [address] [id number] [place] [address] Feb, [facility] [place] [facility] [address] [id number] [place] [address] Feb, [facility] [place] [facility] [address] [id number] [place] [address] Feb, [facility] [place] [facility] [address] [id number] [place] [address] Jan, 2013 [facility] [place] [facility] [address] [id number] [place] [address] Jan, 2013 [facility] [place] [facility] [address] [id number] [place] [address] Jan, 2013 [facility] [place] [facility] [address] [id number] [place] [address] Jan, 2013 [facility] [place] [facility] [address] [id number] [place] [address] Jan, 2013 [facility] [place] [facility] [address] [id number] [place] [address] Nov, [facility] [place] [facility] [address] [id number] [place] [address] Nov, [facility] [place] [facility] [address] [id number] [place] [address] Nov, [facility] [place] [facility] [address] [id number] [place] [address] Nov, [facility] [place] [facility] [address] [id number] [place] [address] Nov, [facility] [place] [facility] [address] [id number] [place] [address] Nov, [facility] [place] [facility] [address] [id number] [place] [address] Oct, [facility] [place] [facility] [address] [id number] [place] [address] Oct, [facility] [place] [facility] [address] [id number] [place] [address] Oct, [facility] [place] [facility] [address] [id number] [place] [address] Oct, [facility] [place] [facility] [address] [id number] [place] [address] Oct, [facility] [place] [facility] [address] [id number] [place] [address] Oct, [facility] [address] [id number] [place] [address] Oct, [facility] [place] [facility] [address] [id number] [place] [address] September, [facility] [place] [facility] [address] [id number] [place] [address] September, [facility] [place] [facility] [address] [id number] [place] [address] September, [facility] [place] [facility] [address] [id number] [place] [address] September, [facility] [place] [facility] [address] [id number] [place] [address] September, [facility] [address] [id number] [place] [address] September, [facility] [place] [facility] [address] [id number] [place] [address] September, [facility] [place] [facility] [address] [id number] [place] [address] September, [facility] [place] [facility] [address] [id number] [place] [address] Aug, [facility] [place] [facility] [address] [id number] [place] [address] Aug, [facility] [place] [facility] [address] [id number] [place] [address] Aug, [facility] [place] [facility] [address] [id number] [place] [address] Aug, [facility] [place] [facility] [address] [id number] [place] [address] Jul, [facility] [place] [facility] [address] [id number] [place] [address] Jul, [facility] [place] [facility] [address] [id number] [place] [address] Jun, [facility] [place] [facility] [address] [id number] [place] [address] Jun, [facility] [place] [facility] [address] [id number] [place] [address] Jun, [facility] [place] [facility] [address] [id number] [place] [address] Jun, [facility] [place] [facility] [address] [id number] [place] [address] Jun, [facility] [place] [facility] [address] [id number] [place] [address] Jun, [facility] [place] [facility] [address] [facility] [id number] [place] [address] May, [facility] [place] [facility] [address] [id number], [place] [address] May, [facility] [place] [facility] [address] [facility] [id number] [address] May, [facility] [place] [facility] [address] [facility] [id number], [place] [address] May, [facility] [place] [facility] [address] [facility] [id number], [place] [address] May, [facility] [place] [facility] [address] [id number], [place] [address] May, [facility] [place] [facility] [address] [id number], [place] [address] Feb, [facility] [place] [facility] [address] [id number], [place] [address] Feb, [facility] [place] [facility] [address] [id number], [place] [address] Feb, [facility] [place] [facility] [address] [id number], [place] [address] Feb, [facility] [address] [id number] [place] [address] Jan, [facility] [place] [facility] [address] [id number] [place] [address] Jan, [facility] [address] [id number] [place] [address] Jan, [facility] [address] [id number] [place] [address] Dec, [facility] [address] [id number] [place] [address] Nov, [facility] [address] [id number] [place] [address] Nov, [facility] [address] [id number] [place] [address] Nov, [facility] [address] [id number] [place] [address] Nov, [facility] [address] [id number] [place] [address] Nov, [facility] [address] [id number] [place] [address] Oct, [facility] [address] [id number] [place] [address] September, [facility] [place] [facility] [address] [id number] [place] [address] September, [facility] [place] [facility] [address] [id number] [place] [address] Aug, [facility] [place] [facility] [address] [id number] [place] [address] Aug, [facility] [place] [facility] [address] [id number] [place] [address] Jul, [facility] [place] [facility] [address] [id number] [place] [address] Jul, [facility] [place] [facility] [address] [id number] [place] [address] Jul, [facility] [place] [facility] [address] [id number] [place] [address] Jul, [facility] [place] [facility] [address] [id number] [place] [address] Jun, [facility] [place] [facility] [address] [id number] [place] [address] Jun, [facility] [place] [facility] [address] [id number] [place] [address] Jun, [facility] [place] [facility] [address] [id number] [place] [address] May, [facility] [place] [facility] [address] [id number] [place] [address] May, [facility] [place] [facility] [address] [id number] [place] [address] May, [facility] [place] [facility] [address] [id number] [place] [address], [facility] [place] [facility] [address] [id number] [place] [address] Apr, [facility] [place] [facility] [address] [id number] [place] [address] Apr, [facility] [place] [facility] [address] [id number] [place] [address] Apr, [facility] [place] [facility] [address] [id number] [place] [address] Apr, [facility] [place] [facility] [address] [id number] [place] [address] Apr, [facility] [place] [facility] [address] [id number] [place] [address] Apr, [facility] [place] [facility] [address] [id number] [place] [address] Mar, [facility] [place] [facility] [address] [id number] [place] [address] Mar, [facility] [place] [facility] [address] [facility] [id number] [place] [address] Mar, [facility] [place] [facility] [address] [id number] [place] [address] Mar, [facility] [place] [facility] [address] [id number] [place] [address] Mar, [facility] [place] [facility] [address] [id number] [place] [address] Mar, [facility] [place] [facility] [address] [facility] [id number] [place] [address] Feb, [facility] [place] [facility] [address] [id number], [place] [address] Feb, [facility] [place] [facility] [address] [id number] [place] [address] Feb, [facility] [place] [facility] [address] [facility] [id number] [place] [address] Feb, [facility] [place] [facility] [address] [id number], [place] [address] Jan, [facility] [place] [facility] [address] [id number], [place] [address] 25 Jan, 2012 [facility] [place] [facility] [address] [id number] [place] [address] 24 Jan, 2012 [facility] [place] [facility] [address] [facility] [id number], [place] [address] 10 Jan, 2012 [facility] [place] [facility] [address] [facility] [id number], [place] [address] Dec, [facility] [place] [facility] [address] [id number] [place] [address] Dec, [facility] [address] [id number] [place] [address] Nov, [facility] [address] [id number] [place] [address] Oct, [facility] [address] [id number] [place] [address] Oct, [facility] [address] [id number] [place] [address] Oct, [facility] [address] [id number] [place] [address] September, [facility] [address] [id number] [place] [address] September, [facility] [address] [id number] [place] [address] September, [facility] [address] [id number] [place] [address] September, [facility] [address] [id number] [place] [address] September, [facility] [address] [id number] [place] [address] September, [facility] [address] [id number] [place] [address] September, [facility] [address] [id number] [place] [address] Jul, [facility] [place] [facility] [address] [id number] [place] [address] Jul, [facility] [place] [facility] [address] [id number] [place] [address] Jun, [facility] [address] [id number] [place] [address] Jun, [facility] [address] [facility] [id number] [place] [address] 06 Jun, 2011 [facility] [address] [facility] [id number] [place] [address] May, [facility] [address] [facility] [id number], [place] [address] 29 Mar, 2011 [facility] [address] [facility] [id number] [place] [address] Mar, [facility] [address] [facility] [id number] [place] [address] Mar, [facility] [address] [facility] [id number] [place] [address] 31 Feb, 2011 [facility] [id number] [place] [address] 18 Feb, 2011 [facility] [id number], [place] [address] Dec, [facility] [address] [facility] [id number], [place] [address] May, [facility] [id number], [place] [address] Apr, [facility] [address] [facility] [id number], [place] [address] Apr, [facility] [address] [id number], [place] [address] 14 Apr, 2009 [facility] [address] [facility] [id number], [place] [address] Apr, [facility] [address] [facility] [id number], [place] [address] 30 Feb, 2009 [facility] [address] [id number], [place] [address] Oct, IMMUNIZATIONS Vaccine Route Administration Date Status B12, VITAMIN (UP TO 1000 MCG) IM Intramuscular Dec 27, 2017 Administered SOCIAL HISTORY Never Assessed REASON FOR VISIT B12 injection PLAN OF CARE VITAL SIGNS MEDICATIONS Unknown Medications RESULTS No Results PROCEDURES Procedure Date Ordered Result Body Site B12, VITAMIN (UP TO 1000 MCG) Dec 27, 2017 THER/PROPH/DIAG INJ, SC/IM Dec 27, 2017 INSTRUCTIONS MEDICATIONS ADMINISTERED No [...]
--- NOTE | 2018-12-05 11:50 | NUR ---
PT ARRIVED TO FLOOR VIA STRETCHER WITH ED NURSE AT SIDE. A/O X4. IV TO LEFT AC IN PLACE. PT ABLE TO MOVE SELF OVER IN BED FROM STRETCHER. STATES SHE USES A WHEELCHAIR TO GET AROUND WITH AT HOME. OREINTED PT TO ROOM. CALL LIGHT WITHIN REACH.
--- OUTSIDE RECORDS SUMMARY | 2018-12-05 11:50 | XMS REPORT ---
Author Author ERIK SAMAYOA [facility] Address [address] [place] [address] Care Team Providers Care Deburring Technician Name Role Phone ERIK SAMAYOA Unavailable PROBLEMS Type Condition ICD9-CM Code PPY22-FI Code Onset Dates Condition Status SNOMED Code Problem Mood disorder F39 Active 91042190 Problem PVD (peripheral vascular disease) I73.9 Active 067341239 Problem Amput leg, unil NOS-comp S88.919A Active 26534225 Problem Acute cystitis with hematuria N30.01 Active 45881062 Problem Major depressive disorder, single episode, unspecified F32.9 Active 89479102 Problem Anticoagulant long-term use Z79.01 Active 133458923 Problem Vitamin B12 deficiency E53.8 Dec, Active 737168154 Problem Chronic obstructive pulmonary disease, unspecified COPD type J44.9 Active 63515845 Problem Congestive heart failure, unspecified congestive heart failure chronicity, unspecified congestive heart failure type I50.9 Active 49625150 Problem Chronic fatigue, unspecified R53.82 Active 034082916 Problem Peripheral vascular disease I73.9 Active 936114065 Problem Chronic fatigue R53.82 Active 00040285 ALLERGIES No Information ENCOUNTERS Encounter Location Date Diagnosis [place] [address], [place] [address] Jan, [facility] [address] [place] [address] Jan, Anticoagulant long-term use Z79.01 [facility] [address] [place] [id number] [place] [address] Dec, Anticoagulant long-term use Z79.01 [facility] [address], [place] [address] Dec, Vitamin B12 deficiency E53.8 [place] [address] [place] [id number] [place] [address] Dec, Major depressive disorder, single episode, unspecified F32.9 [place] [address] [place] [id number] [place] [address] Nov, Vitamin B 12 deficiency E53.8 [place] [address] [place] [address] Nov, Anticoagulant long-term use Z79.01 ; Mood disorder F39 ; Chronic obstructive pulmonary disease, unspecified COPD type J44.9 ; Peripheral vascular disease I73.9 and Chronic fatigue R53.82 [place] [address] [place] [id number] [place] [address] Nov, Mood disorder F39 [place] [address] [place] [id number] [place] [address] Nov, [place] [address] [place] [id number] [place] [address] Oct, Mood disorder F39 ; Chronic obstructive pulmonary disease, unspecified COPD type J44.9 ; Peripheral vascular disease I73.9 and Chronic fatigue R53.82 [place] [address] [place] [id number] [place] [address] September, Anticoagulant long-term use Z79.01 and Congestive heart failure, unspecified congestive heart failure chronicity, unspecified congestive heart failure type I50.9 [place] [address] [place] [address] September, Vitamin B12 deficiency E53.8 [place] [address] [place] [address] September, Anticoagulant long-term use Z79.01 [place] [address] [place] [address] September, Anticoagulant long-term use Z79.01 and Congestive heart failure, unspecified congestive heart failure chronicity, unspecified congestive heart failure type I50.9 [place] [address] [address] Aug, Chronic fatigue, unspecified R53.82 [place] [address] [address] Aug, Anticoagulant long-term use Z79.01 [place] [address] [address] Aug, Nausea R11.0 and Weakness R53.1 [place] [address] [address] Aug, [facility] [address] [address] Aug, Hematuria R31.9 and Acute cystitis with hematuria N30.01 [place] [address] [address] Aug, [place] [address] [address] Jul, Vitamin B 12 deficiency E53.8 [place] [address] [address] Jul, Anticoagulant long-term use Z79.01 [place] [address] [address] Jun, Chronic fatigue, unspecified R53.82 [place] [address] [address] Jun, Anticoagulant long-term use Z79.01 [place] [address] [address] May, Flu-like symptoms R68.89 and Influenza A J10.1 [place] [address] [address] May, [place] [address] [address] May, Chronic fatigue, unspecified R53.82 [facility] [address], [place] [address] May, Anticoagulant long-term use Z79.01 [place] [address] [place] [address] Apr, Medicare welcome exam Z00.00 ; Anticoagulant long-term use Z79.01 ; Medicare annual wellness visit, initial Z00.00 ; Medicare annual wellness visit, subsequent Z00.00 and Chronic fatigue, unspecified R53.82 [place] [address] [place] [id number] [place] [address] Mar, Chronic fatigue, unspecified R53.82 [place] [address] [place] [id number] [place] [address] Mar, Anticoagulant long-term use Z79.01 [place] [address] [place] [id number] [place] [address] Mar, Anticoagulant long-term use Z79.01 and Hematuria R31.9 [place] [address] [place] [id number] [place] [address] Mar, Hematuria R31.9 [place] [address] [place] [id number] [place] [address] Feb, Anticoagulant long-term use Z79.01 [place] [address] [place] [address] Feb, Anticoagulant long-term use Z79.01 [place] [address] [place] [address] Feb, Anticoagulant long-term use Z79.01 [place] [address] [place] [id number] [place] [address] Feb, Chronic fatigue, unspecified R53.82 [place] [address] [place] [address] Feb, Anticoagulant long-term use Z79.01 [facility] [address], [place] [address] Feb, Congestive heart failure, unspecified congestive heart failure chronicity, unspecified congestive heart failure type I50.9 [facility] [address], [place] [address] Feb, Congestive heart failure, unspecified congestive heart failure chronicity, unspecified congestive heart failure type I50.9 [facility] [address] [place] [id number] [place] [address] Feb, [facility] [address] [place] [id number] [place] [address] Jan, Anticoagulant long-term use Z79.01 [place] [address] [place] [id number] [place] [address] Jan, [facility] [address] [place] [id number] [place] [address] Jan, Anticoagulant long-term use Z79.01 and Hematuria R31.9 [facility] [address] [place] [id number] [place] [address] Jan, Anticoagulant long-term use Z79.01 [place] [address] [place] [address] Jan, Chronic fatigue, unspecified R53.82 [facility] [address] [place] [address] Jan, Anticoagulant long-term use Z79.01 [facility] [address], [place] [address] Dec, Chronic fatigue, unspecified R53.82 [facility] [address] [place] [id number] [place] [address] Dec, [facility] [address] [place] [id number] [place] [address] 07 Aug, 2017 Chronic fatigue, unspecified R53.82 and Encounter for therapeutic drug level monitoring Z51.81 [facility] [address] [place] [address] Nov, Encounter for therapeutic drug level monitoring Z51.81 [facility] [address] [place] [id number] [place] [address] Nov, Hematuria R31.9 [facility] [address] [address] Nov, Hematuria R31.9 ; Anticoagulant long-term use Z79.01 and PVD (peripheral vascular disease) I73.9 [facility] [address] [place] [id number] [place] [address] Nov, Anticoagulant long-term use Z79.01 [facility] [address] [place] [id number] [place] [address] Nov, Anticoagulant long-term use Z79.01 [facility] [address] [place] [id number] [place] [address] Nov, [facility] [address] [place] [id number] [place] [address] Nov, Hematuria R31.9 and Acute cystitis with hematuria N30.01 [facility] [address] [place] [id number] [place] [id number] Oct, [facility] [address] [place] [id number] [place] [address] Oct, [facility] [address] [place] [id number] [place] [address] Oct, Hematuria R31.9 [facility] [address] [place] [id number] [place] [address] Oct, Hematuria R31.9 [facility] [address] [place] [address] Oct, Anticoagulant long-term use Z79.01 [facility] [address] [address] Oct, Anticoagulant long-term use Z79.01 [place] [address] [address] Oct, [place] [address] [address] September, PVD (peripheral vascular disease) I73.9 ; Amput leg, unil NOS-comp S88.919A ; Acute cystitis without hematuria N30.00 ; Anticoagulant long-term use Z79.01 and Hypokalemia E87.6 [place] [address] [address] Aug, Anticoagulant long-term use Z79.01 and Bronchitis J40 [place] [address] [address] Jul, [place] [address] [address] Jul, Anticoagulant long-term use Z79.01 and Mood disorder F39 [place] [address] [address] Jul, [place] [address] [address] May, [place] [address] [address] May, Hypokalemia E87.6 [place] [address] [address] May, Mood disorder F39 [place] [address] [address] May, Anticoagulant long-term use Z79.01 [place] [address] [address] Apr, Anticoagulant long-term use Z79.01 [place] [address] [place] [id number] [place] [address] Apr, Anticoagulant long-term use Z79.01 [facility] [address] [place] [id number] [place] [address] Apr, [facility] [address] [place] [id number] [place] [address] 16 Apr, 2016 Anticoagulant long-term use Z79.01 [facility] [address] [place] [id number] [place] [address] 16 Apr, 2016 Anticoagulant long-term use Z79.01 [facility] [address] [address] Apr, Anticoagulant long-term use Z79.01 [facility] [address] [place] [id number] [place] [address] Mar, [facility] [address] [place] [id number] [place] [address] Mar, [facility] [address] [place] [id number] [place] [address] Mar, Anticoagulant long-term use Z79.01 [facility] [address] [place] [id number] [place] [address] Feb, [facility] [address] [place] [id number] [place] [address] Feb, [facility] [address] [place] [id number] [place] [address] 07 Feb, 2016 Anticoagulant long-term use Z79.01 [facility] [address] [place] [id number] [place] [address] 05 Feb, 2016 Anticoagulant long-term use Z79.01 [facility] [address] [place] [id number] [place] [address] 29 Jan, 2016 [facility] [address] [place] [id number] [place] [address] Jan, Anticoagulant long-term use Z79.01 [facility] [address] [place] [id number] [place] [address] Jan, Anticoagulant long-term use Z79.01 [facility] [address] [place] [id number] [place] [address] Dec, Anticoagulant long-term use Z79.01 [facility] [address] [address] Dec, Anticoagulant long-term use Z79.01 [facility] [address] [place] [id number] [place] [address] Dec, Anticoagulant long-term use Z79.01 and Mood disorder F39 [place] [address] [place] [id number] [place] [address] Dec, [facility] [address] [address] Nov, [facility] [address] [place] [id number] [place] [address] Nov, Anticoagulant long-term use Z79.01 [place] [address] [place] [id number] [place] [address] Nov, Anticoagulant long-term use Z79.01 [place] [address] [place] [id number] [place] [address] September, Anticoagulant long-term use Z79.01 [facility] [address] [place] [id number] [place] [address] Jul, Anticoagulant long-term use Z79.01 [place] [address] [address] May, Anticoagulant long-term use Z79.01 [facility] [address] [place] [id number] [place] [address] May, Anticoagulant long-term use Z79.01 [facility] [address] [place] [id number] [place] [address] May, Anticoagulant long-term use Z79.01 [facility] [address] [address] May, Anticoagulant long-term use Z79.01 [facility] [address] [address] May, [facility] [address] [address] May, Congestive heart failure, unspecified congestive heart failure chronicity, unspecified congestive heart failure type I50.9 and Pulmonary congestion R09.89 [place] [address] [address] Apr, Cough R05 ; Congestive heart failure, unspecified congestive heart failure chronicity, unspecified congestive heart failure type I50.9 and Pulmonary congestion R09.89 [place] [address] [address] Mar, Hematuria R31.9 [place] [address] [address] Mar, [place] [address] [place] [id number] [place] [address] Mar, Anticoagulant long-term use Z79.01 [place] [address] [place] [id number] [place] [address] Mar, [place] [address] [place] [id number] [place] [address] Mar, Hematuria R31.9 and Infective urethritis N34.2 [place] [address] [address] Mar, Anticoagulant long-term use Z79.01 [place] [address] [place] [id number] [place] [address] Mar, Anticoagulant long-term use Z79.01 [facility] [address], [place] [address] Mar, [facility] [address], [place] [address] Mar, Anticoagulant long-term use Z79.01 [facility] [address], [place] [address] Feb, Peristomal skin breakdown L98.499 [facility] [address] [place] [address] Feb, [place] [address] [place] [address] Feb, UTI (urinary tract infection) N39.0 [place] [address] [place] [address] Jan, [facility] [address] [place] [address] Dec, High risk medication use V58.69 [place] [address] [place] [address] Nov, High risk medication use V58.69 [place] [address] [place] [address] Nov, [place] [address] [place] [id number] [address] Nov, UTI (lower urinary tract infection) 599.0 ; URI, acute 465.9 ; Insomnia 780.52 ; Anxiety 300.00 and Lower limb amputation, unspecified level V49.70 [place] [address] [place] [address] Oct, UTI (lower urinary tract infection) 599.0 ; URI, acute 465.9 ; Insomnia 780.52 ; Anxiety 300.00 and Lower limb amputation, unspecified level V49.70 [place] [address], [place] [address] 14 Aug, 2014 [facility] [place] [facility] [address] [id number] [place] [address] Aug, [facility] [place] [facility] [address] [id number] [place] [address] Jul, 2014 [facility] [place] [facility] [address] [facility] [id number] [place] [address] Jul, 2014 [facility] [place] [facility] [address] [id number] [place] [address] Jun, 2014 [facility] [place] [facility] [address] [id number] [place] [address] Jun, 2014 [facility] [place] [facility] [address] [facility] [id number] [place] [address] Mar, [facility] [place] [facility] [address] [facility] [id number] [address] Mar, [facility] [place] [facility] [address] [facility] [id number] [place] [address] Mar, [facility] [place] [facility] [address] [facility] [id number] [place] [address] Mar, [facility] [place] [facility] [address] [facility] [id number] [place] [address] Mar, [facility] [place] [facility] [address] [facility] [id number], [place] [address] Feb, [facility] [place] [facility] [address] [facility] [id number], [place] [address] Feb, [facility] [place] [facility] [address] [facility] [id number], [place] [address] Feb, [facility] [place] [facility] [address] [facility] [id number], [place] [address] Feb, [facility] [place] [facility] [address] [facility] [id number][place] [address] Feb, [facility] [place] [facility] [address] [id number] [place] [address] 16 Feb, 2013 [facility] [place] [facility] [address] [id number] [place] [address] 16 Feb, 2014 [facility] [place] [facility] [address] [id number] [place] [address] Feb, 2013 [facility] [place] [facility] [address] [id number] [place] [address] Feb, 2013 [facility] [place] [facility] [address] [id number] [place] [address] Feb, [facility] [place] [facility] [address] [id number] [place] [address] Feb, [facility] [place] [facility] [address] [id number] [place] [address] Feb, [facility] [place] [facility] [address] [id number] [place] [address] Feb, [facility] [place] [facility] [address] [id number] [place] [address] Feb, [facility] [place] [facility] [address] [id number] [place] [address] Feb, [facility] [place] [facility] [address] [id number] [place] [address] Feb, [facility] [place] [facility] [address] [id number] [place] [address] 28 Jan, 2013 [facility] [place] [facility] [address] [id number] [place] [address] 26 Sep, 2013 [facility] [place] [facility] [address] [id number] [place] [address] 26 Jan, 2013 [facility] [place] [facility] [address] [id number] [place] [address] 04 Sep, 2013 [facility] [place] [facility] [address] [id number] [place] [address] Jan, [facility] [place] [facility] [address] [id number] [place] [address] Nov, [facility] [place] [facility] [address] [id number] [place] [address] Nov, [facility] [place] [facility] [address] [id number] [place] [address] Nov, [facility] [place] [facility] [address] [id number] [place] [address] Nov, [facility] [place] [facility] [address] [id number] [place] [address] Nov, [facility] [place] [facility] [address] [id number] [place] [address] Nov, [facility] [place] [facility] [address] [id number] [place] [address] Oct, [facility] [place] [facility] [address] [id number] [place] [address] Oct, [facility] [place] [facility] [address] [id number] [place] [address] Oct, [facility] [place] [facility] [address] [id number] [place] [address] Oct, [facility] [place] [facility] [address] [id number] [place] [address] Oct, [facility] [place] [facility] [address] [id number] [place] [address] Oct, [facility] [place] [facility] [address] [id number] [place] [address] Oct, [facility] [place] [facility] [address] [id number] [place] [address] September, [facility] [place] [facility] [address] [id number] [place] [address] September, [facility] [place] [facility] [address] [id number] [place] [address] September, [facility] [place] [facility] [address] [id number] [place] [address] September, [facility] [place] [facility] [address] [id number] [place] [address] September, [facility] [place] [facility] [address] [id number] [place] [address] September, [facility] [place] [facility] [address] [id number] [place] [address] September, [facility] [place] [facility] [address] [id number] [place] [address] September, [facility] [place] [facility] [address] [id number] [place] [address] Aug, [facility] [place] [facility] [address] [id number] [place] [address] Aug, [facility] [place] [facility] [address] [id number] [place] [address] Aug, [facility] [place] [facility] [address] [id number] [place] [address] Aug, [facility] [place] [facility] [address] [facility] [id number] [place] [address] Jul, [facility] [place] [facility] [address] [id number] [place] [address] Jul, [facility] [place] [facility] [address] [id number] [place] [address] Jun, [facility] [place] [facility] [address] [id number] [place] [address] Jun, [facility] [place] [facility] [address] [id number] [place] [address] Jun, [facility] [place] [facility] [address] [id number] [place] [address] Jun, [facility] [place] [facility] [address] [id number] [place] [address] Jun, [facility] [place] [facility] [address] [id number] [place] [address] Jun, [facility] [place] [facility] [address] [id number] [place] [address] May, [facility] [place] [facility] [address] [id number] [place] [address] May, [facility] [place] [facility] [address] [id number] [place] [address] May, [facility] [place] [facility] [address] [id number], [place] [address] May, [facility] [place] [facility] [address] [id number] [place] [address] May, [facility] [place] [facility] [address] [id number], [place] [address] May, [facility] [place] [facility] [address] [id number] [place] [address] Feb, [facility] [place] [facility] [address] [id number], [place] [address] Feb, [facility] [place] [facility] [address] [id number], [place] [address] Feb, [facility] [place] [facility] [address] [id number], [place] [address] Feb, [facility] [place] [facility] [address] [id number], [place] [address] Jan, [facility] [place] [facility] [address] [id number], [place] [address] Jan, [facility] [place] [facility] [address] [id number], [place] [address] Jan, [facility] [place] [facility] [address] [id number] [place] [address] Dec, [facility] [address] [id number] [place] [address] Nov, [facility] [place] [facility] [address] [id number] [place] [address] Nov, [facility] [address] [id number] [place] [address] Nov, [facility] [place] [facility] [address] [id number] [place] [address] Nov, [facility] [address] [id number] [place] [address] Nov, [facility] [address] [id number] [place] [address] Oct, [facility] [address] [id number] [place] [address] September, [facility] [address] [id number] [place] [address] September, [facility] [address] [id number] [place] [address] Aug, [facility] [address] [id number] [place] [address] Aug, [facility] [address] [id number] [place] [address] Jul, [facility] [place] [facility] [address] [id number] [place] [address] Jul, [facility] [place] [facility] [address] [id number] [place] [address] Jul, [facility] [place] [facility] [address] [id number] [place] [address] Jul, [facility] [place] [facility] [address] [id number] [place] [address] Jun, [facility] [place] [facility] [address] [id number] [place] [address] Jun, [facility] [address] [id number] [place] [address] Jun, [facility] [place] [address] [id number] [place] [address] May, [facility] [address] [id number] [place] [address] May, [facility] [address] [id number] [place] [address] May, [facility] [address] [id number] [place] [address] May, [facility] [address] [id number] [place] [address] Apr, [facility] [address] [id number] [place] [address] Apr, [facility] [address] [id number] [place] [address] Apr, [facility] [address] [id number] [place] [address] Apr, [facility] [address] [id number] [place] [address] Apr, [facility] [address] [id number] [place] [address] Apr, [facility] [place] [facility] [address] [id number] [place] [address] Mar, [facility] [place] [facility] [address] [id number] [place] [address] Mar, [facility] [address] [id number] [place] [address] Mar, [facility] [address] [id number], [place] [address] Mar, [facility] [place] [facility] [address] [id number] [place] [address] Mar, [facility] [place] [facility] [address] [id number] [place] [address] Mar, [facility] [place] [facility] [address] [id number] [place] [address] Feb, [facility] [place] [facility] [address] [id number] [place] [address] Feb, [facility] [place] [facility] [address] [id number] [place] [address] Feb, [facility] [place] [facility] [address] [id number] [place] [address] Feb, [facility] [place] [facility] [address] [id number] [place] [address] Jan, [facility] [place] [facility] [address] [id number] [place] [address] Jan, [facility] [place] [facility] [address] [id number] [place] [address] 24 Jan, 2012 [facility] [place] [facility] [address] [id number] [place] [address] Jan, [facility] [place] [facility] [address] [id number], [place] [address] Dec, [facility] [place] [facility] [address] [id number], [place] [address] Dec, [facility] [place] [facility] [address] [id number] [place] [address] Nov, [facility] [place] [facility] [address] [id number], [place] [address] Oct, [facility] [place] [facility] [address] [id number] [place] [address] Oct, [facility] [place] [facility] [address] [id number] [place] [address] Oct, [facility] [address] [id number] [place] [address] September, [facility] [place] [facility] [address] [id number] [place] [address] September, [facility] [address] [id number] [place] [address] September, [facility] [address] [id number] [place] [address] September, [facility] [address] [id number] [place] [address] September, [facility] [address] [id number] [place] [address] September, [facility] [address] [id number] [place] [address] September, [facility] [address] [id number] [place] [address] Jul, [facility] [address] [id number] [place] [address] Jul, [facility] [address] [id number] [place] [address] Jun, [facility] [address] [id number] [place] [address] Jun, [facility] [address] [id number] [place] [address] Jun, [facility] [place] [facility] [address] [id number] [place] [address] May, [facility] [place] [facility] [address] [id number] [place] [address] Mar, [facility] [address] [id number] [place] [address] Mar, [facility] [address] [id number], [place] [address] 14 Mar, 2011 [facility] [id number], [place] [address] 31 Feb, 2011 [facility] [id number], [place] [address] 18 Feb, 2011 [facility] [id number] [place] [address] Dec, [facility] [id number] [place] [address] May, [facility] [id number] [place] [address] Apr, [facility] [id number] [place] [address] Apr, [facility] [id number] [place] [address] Apr, [facility] [id number], [place] [address] Apr, [facility] [id number], [place] [address] Feb, [facility] [id number], [place] [address] Oct, IMMUNIZATIONS Vaccine Route Administration Date Status B12, VITAMIN (UP TO 1000 MCG) IM Intramuscular November 28, 2017 Administered SOCIAL HISTORY Never Assessed REASON FOR VISIT B12 injection- Nj Zhu RN PLAN OF CARE VITAL SIGNS MEDICATIONS Unknown Medications RESULTS No Results PROCEDURES Procedure Date Ordered Result Body Site B12, VITAMIN (UP TO 1000 MCG) November 28, 2017 THER/PROPH/DIAG INJ, SC/IM November 28, 2017 INSTRUCTIONS MEDICATIONS ADMINISTERED No Known Medications [...]
--- OUTSIDE RECORDS SUMMARY | 2018-12-05 11:50 | XMS REPORT ---
Author Author ERIK SAMAYOA Organization [facility] Address [address] [place] [address] Care Team Providers Care Oil [employer] Builder Name Role Phone ERIK SAMAYOA Unavailable PROBLEMS Type Condition ICD9-CM Code YHC19-ZE Code Onset Dates Condition Status SNOMED Code Problem Mood disorder F39 Active 87684001 Problem PVD (peripheral vascular disease) I73.9 Active 651354299 Problem Amput leg, unil NOS-comp S88.919A Active 13482506 Problem Acute cystitis with hematuria N30.01 Active 86160135 Problem Major depressive disorder, single episode, unspecified F32.9 Active 12377748 Problem Anticoagulant long-term use Z79.01 Active 192339390 Problem Vitamin B12 deficiency E53.8 Dec, Active 147918095 Problem Chronic obstructive pulmonary disease, unspecified COPD type J44.9 Active 08515910 Problem Congestive heart failure, unspecified congestive heart failure chronicity, unspecified congestive heart failure type I50.9 Active 66708344 Problem Chronic fatigue, unspecified R53.82 Active 989201314 Problem Peripheral vascular disease I73.9 Active 434514477 Problem Chronic fatigue R53.82 Active 49649129 ALLERGIES Substance Reaction Event Type Date Status Penicillin V Potassium Unknown Drug Allergy Dec, Active Morphine Sulfate Unknown Drug Allergy Dec, Active Codeine Sulfate Unknown Drug Allergy Dec, Active Aspir-81 Unknown Drug Allergy Dec, Active ENCOUNTERS Encounter Location Date Diagnosis [facility] [address] [facility] [id number], [place] [address] Jan, Major depressive disorder, single episode, unspecified F32.9 [facility] [address] [facility] [id number], [place] [address] Jan, [facility] [address] [facility] [id number], [place] [address] Jan, Anticoagulant long-term use Z79.01 [facility] [address], [place] [address] Dec, Anticoagulant long-term use Z79.01 [facility] [address] [place] [address] Dec, Vitamin B12 deficiency E53.8 [facility] [address] [place] [address] Dec, Major depressive disorder, single episode, unspecified F32.9 [facility] [address] [place] [address] Nov, Vitamin B 12 deficiency E53.8 [place] [address] [place] [address] Nov, Anticoagulant long-term use Z79.01 ; Mood disorder F39 ; Chronic obstructive pulmonary disease, unspecified COPD type J44.9 ; Peripheral vascular disease I73.9 and Chronic fatigue R53.82 [place] [address] [place] [address] Nov, Mood disorder F39 [place] [address] [place] [id number] [place] [address] Nov, [facility] [address] [place] [address] Oct, Mood disorder F39 ; Chronic obstructive pulmonary disease, unspecified COPD type J44.9 ; Peripheral vascular disease I73.9 and Chronic fatigue R53.82 [facility] [address] [place] [address] September, Anticoagulant long-term use Z79.01 and Congestive heart failure, unspecified congestive heart failure chronicity, unspecified congestive heart failure type I50.9 [facility] [address], [place] [address] September, Vitamin B12 deficiency E53.8 [facility] [address] [place] [address] September, Anticoagulant long-term use Z79.01 [facility] [address] [place] [id number] [place] [address] September, Anticoagulant long-term use Z79.01 and Congestive heart failure, unspecified congestive heart failure chronicity, unspecified congestive heart failure type I50.9 [facility] [address] [address] Aug, Chronic fatigue, unspecified R53.82 [place] [address] [address] Aug, Anticoagulant long-term use Z79.01 [place] [address] [address] Aug, Nausea R11.0 and Weakness R53.1 [place] [address] [address] Aug, [facility] [address] [address] Aug, Hematuria R31.9 and Acute cystitis with hematuria N30.01 [place] [address] [address] Aug, [facility] [address] [address] Jul, Vitamin B 12 deficiency E53.8 [place] [address] [address] Jul, Anticoagulant long-term use Z79.01 [place] [address] [address] Jun, Chronic fatigue, unspecified R53.82 [facility] [address] [place] [id number] [place] [address] Jun, Anticoagulant long-term use Z79.01 [place] [address] [place] [address] May, Flu-like symptoms R68.89 and Influenza A J10.1 [place] [address] [address] May, [place] [address] [place] [id number] [place] [address] May, Chronic fatigue, unspecified R53.82 [place] [address] [address] May, Anticoagulant long-term use Z79.01 [place] [address] [address] Apr, Medicare welcome exam Z00.00 ; Anticoagulant long-term use Z79.01 ; Medicare annual wellness visit, initial Z00.00 ; Medicare annual wellness visit, subsequent Z00.00 and Chronic fatigue, unspecified R53.82 [place] [address] [address] Mar, Chronic fatigue, unspecified R53.82 [place] [address] [address] Mar, Anticoagulant long-term use Z79.01 [place] [address] [place] [id number] [place] [address] Mar, Anticoagulant long-term use Z79.01 and Hematuria R31.9 [place] [address] [place] [id number] [place] [address] Mar, Hematuria R31.9 [place] [address] [place] [id number] [place] [address] Feb, Anticoagulant long-term use Z79.01 [place] [address] [place] [id number] [place] [address] Feb, Anticoagulant long-term use Z79.01 [place] [address] [address] Feb, Anticoagulant long-term use Z79.01 [place] [address] [place] [id number] [place] [address] Feb, Chronic fatigue, unspecified R53.82 [place] [address] [place] [id number] [place] [address] Feb, Anticoagulant long-term use Z79.01 [place] [address] [place] [id number] [place] [address] Feb, Congestive heart failure, unspecified congestive heart failure chronicity, unspecified congestive heart failure type I50.9 [place] [address] [place] [id number] [place] [address] Feb, Congestive heart failure, unspecified congestive heart failure chronicity, unspecified congestive heart failure type I50.9 [place] [address] [place] [id number] [place] [address] Feb, [place] [address] [place] [id number] [place] [address] Jan, Anticoagulant long-term use Z79.01 [place] [address] [place] [id number] [place] [address] Jan, [place] [address] [place] [id number] [place] [address] Jan, Anticoagulant long-term use Z79.01 and Hematuria R31.9 [place] [address] [place] [id number] [place] [address] Jan, Anticoagulant long-term use Z79.01 [place] [address] [place] [id number] [place] [address] Jan, Chronic fatigue, unspecified R53.82 [place] [address] [place] [id number] [place] [address] Jan, Anticoagulant long-term use Z79.01 [place] [address] [place] [id number] [place] [address] Dec, Chronic fatigue, unspecified R53.82 [place] [address] [place] [id number] [place] [address] Dec, [facility] [address] [address] Dec, Chronic fatigue, unspecified R53.82 and Encounter for therapeutic drug level monitoring Z51.81 [place] [address] [address] Nov, Encounter for therapeutic drug level monitoring Z51.81 [place] [address] [address] Nov, Hematuria R31.9 [place] [address] [address] Nov, Hematuria R31.9 ; Anticoagulant long-term use Z79.01 and PVD (peripheral vascular disease) I73.9 [place] [address] [place] [id number] [place] [address] Nov, Anticoagulant long-term use Z79.01 [place] [address] [address] Nov, Anticoagulant long-term use Z79.01 [place] [address] [place] [id number] [place] [address] Nov, [place] [address] [place] [id number] [place] [address] Nov, Hematuria R31.9 and Acute cystitis with hematuria N30.01 [facility] [address] [id number] Oct, [facility] [address] [address] Oct, [place] [address] [address] Oct, Hematuria R31.9 [facility] [address] [place] [id number] [place] [address] Oct, Hematuria R31.9 [facility] [address] [place] [id number] [place] [address] Oct, Anticoagulant long-term use Z79.01 [place] [address] [address] Oct, Anticoagulant long-term use Z79.01 [place] [address] [place] [id number] [place] [address] Oct, [place] [address] [address] September, PVD (peripheral vascular disease) I73.9 ; Amput leg, unil NOS-comp S88.919A ; Acute cystitis without hematuria N30.00 ; Anticoagulant long-term use Z79.01 and Hypokalemia E87.6 [place] [address] [place] [id number] [place] [address] Aug, Anticoagulant long-term use Z79.01 and Bronchitis J40 [place] [address] [place] [id number] [place] [address] Jul, [place] [address] [place] [id number] [place] [address] Jul, Anticoagulant long-term use Z79.01 and Mood disorder F39 [place] [address] [place] [id number] [place] [address] Jul, [place] [address] [address] May, [place] [address] [address] May, Hypokalemia E87.6 [place] [address] [address] May, Mood disorder F39 [facility] [address] [place] [id number] [place] [address] May, Anticoagulant long-term use Z79.01 [facility] [address] [place] [id number] [place] [address] Apr, Anticoagulant long-term use Z79.01 [facility] [address] [address] Apr, Anticoagulant long-term use Z79.01 [facility] [address] [place] [id number] [place] [address] Apr, [facility] [address] [address] Apr, Anticoagulant long-term use Z79.01 [facility] [address] [place] [id number] [place] [address] Apr, Anticoagulant long-term use Z79.01 [facility] [address] [place] [id number] [place] [address] Apr, Anticoagulant long-term use Z79.01 [facility] [address] [place] [id number] [place] [address] Mar, [facility] [address] [place] [id number] [place] [address] Mar, [facility] [address] [place] [id number] [place] [address] Mar, Anticoagulant long-term use Z79.01 [facility] [address] [place] [id number] [place] [address] Feb, [facility] [address] [address] Feb, [facility] [address] [place] [id number] [place] [address] Feb, Anticoagulant long-term use Z79.01 [facility] [address] [place] [id number] [place] [address] Feb, Anticoagulant long-term use Z79.01 [facility] [address] [place] [id number] [place] [address] Jan, [facility] [address] [address] Jan, Anticoagulant long-term use Z79.01 [facility] [address] [address] Jan, Anticoagulant long-term use Z79.01 [facility] [address] [address] Dec, Anticoagulant long-term use Z79.01 [facility] [address] [address] Dec, Anticoagulant long-term use Z79.01 [facility] [address] [place] [id number] [place] [address] Dec, Anticoagulant long-term use Z79.01 and Mood disorder F39 [facility] [address] [address] Dec, [facility] [address] [place] [id number] [place] [address] Nov, [facility] [address] [place] [id number] [place] [address] Nov, Anticoagulant long-term use Z79.01 [facility] [address] [place] [id number] [place] [address] Nov, Anticoagulant long-term use Z79.01 [facility] [address] [place] [id number] [place] [address] September, Anticoagulant long-term use Z79.01 [facility] [address] [place] [id number] [place] [address] Jul, Anticoagulant long-term use Z79.01 [facility] [address] [place] [id number] [place] [address] May, Anticoagulant long-term use Z79.01 [facility] [address] [place] [id number] [place] [address] May, Anticoagulant long-term use Z79.01 [facility] [address] [address] May, Anticoagulant long-term use Z79.01 [facility] [address] [address] May, Anticoagulant long-term use Z79.01 [place] [address] [place] [id number] [place] [address] May, [place] [address] [place] [id number] [place] [address] May, Congestive heart failure, unspecified congestive heart failure chronicity, unspecified congestive heart failure type I50.9 and Pulmonary congestion R09.89 [place] [address] [place] [id number] [place] [address] Apr, Cough R05 ; Congestive heart failure, unspecified congestive heart failure chronicity, unspecified congestive heart failure type I50.9 and Pulmonary congestion R09.89 [place] [address] [place] [id number] [place] [address] Mar, Hematuria R31.9 [place] [address] [place] [id number] [place] [address] Mar, [place] [address] [place] [id number] [place] [address] Mar, Anticoagulant long-term use Z79.01 [facility] [address] [place] [id number] [place] [address] Mar, [place] [address] [address] Mar, Hematuria R31.9 and Infective urethritis N34.2 [facility] [address], [place] [address] Mar, Anticoagulant long-term use Z79.01 [facility] [address] [place] [address] Mar, Anticoagulant long-term use Z79.01 [facility] [address] [place] [id number] [place] [address] Mar, [facility] [address] [place] [id number] [place] [address] Mar, Anticoagulant long-term use Z79.01 [facility] [address] [place] [id number] [place] [address] Feb, Peristomal skin breakdown L98.499 [place] [address] [place] [id number] [place] [address] Feb, [facility] [address] [place] [address] Feb, UTI (urinary tract infection) N39.0 [place] [address] [place] [address] Jan, [place] [address] [place] [address] Dec, High risk medication use V58.69 [place] [address] [place] [address] Nov, High risk medication use V58.69 [place] [address] [place] [address] Nov, [place] [address] [place] [address] Nov, UTI (lower urinary tract infection) 599.0 ; URI, acute 465.9 ; Insomnia 780.52 ; Anxiety 300.00 and Lower limb amputation, unspecified level V49.70 [facility] [address] [id number], [place] [address] 10 Oct, 2014 UTI (lower urinary tract infection) 599.0 ; URI, acute 465.9 ; Insomnia 780.52 ; Anxiety 300.00 and Lower limb amputation, unspecified level V49.70 [facility] [address] [id number], [place] [address] 14 Aug, 2014 [facility] [address] [id number], [place] [address] Aug, [facility] [address] [facility] [id number], [place] [address] Jul, [facility] [address] [facility] [id number], [place] [address] Jul, [facility] [address] [place] [id number] [address] Jun, [facility] [address] [facility] [id number], [place] [address] Jun, [facility] [address] [id number], [place] [address] Mar, [facility] [address] [facility] [id number], [place] [address] Mar, [facility] [address] [facility] [id number], [place] [address] Mar, [facility] [address] [facility] [id number], [place] [address] Mar, [facility] [address] [facility] [id number], [place] [address] Mar, [facility] [address] [facility] [id number], [place] [address] Feb, [facility] [address] [facility] [id number], [place] [address] Feb, [facility] [address] [id number] [place] [address] 29 Feb, 2013 [facility] [place] [facility] [address] [id number] [place] [address] Feb, 2013 [facility] [place] [facility] [address] [id number] [place] [address] Feb, 2013 [facility] [place] [facility] [address] [id number] [place] [address] Feb, 2013 [facility] [place] [facility] [address] [id number] [place] [address] Feb, 2013 [facility] [place] [facility] [address] [id number] [place] [address] Feb, 2013 [facility] [place] [facility] [address] [id number] [place] [address] Feb, 2013 [facility] [place] [facility] [address] [id number] [place] [address] Feb, 2013 [facility] [place] [facility] [address] [id number] [place] [address] Feb, [facility] [place] [facility] [address] [id number] [place] [address] Feb, [facility] [place] [facility] [address] [id number] [place] [address] Feb, [facility] [place] [facility] [address] [id number] [place] [address] Feb, [facility] [place] [facility] [address] [id number] [place] [address] Feb, [facility] [place] [facility] [address] [id number] [place] [address] Feb, [facility] [place] [facility] [address] [id number] [place] [address] 28 Jan, 2014 [facility] [place] [facility] [address] [id number] [place] [address] Jan, 2013 [facility] [place] [facility] [address] [id number] [place] [address] Jan, 2013 [facility] [place] [facility] [address] [id number] [place] [address] Jan, [facility] [place] [facility] [address] [id number] [place] [address] Jan, [facility] [place] [facility] [address] [id number] [place] [address] Nov, [facility] [place] [facility] [address] [id number] [place] [address] Nov, [facility] [place] [facility] [address] [id number] [place] [address] Nov, [facility] [place] [facility] [address] [id number] [place] [address] Nov, [facility] [place] [facility] [address] [id number] [place] [address] Nov, [facility] [place] [facility] [address] [id number] [place] [address] Nov, [facility] [place] [facility] [address] [id number] [place] [address] Oct, [facility] [place] [facility] [address] [id number] [place] [address] Oct, [facility] [place] [facility] [address] [id number], [place] [address] Oct, [facility] [place] [facility] [address] [id number] [place] [address] Oct, [facility] [place] [facility] [address] [id number] [place] [address] Oct, [facility] [place] [facility] [address] [id number] [place] [address] Oct, [facility] [place] [facility] [address] [id number], [place] [address] Oct, [facility] [address] [id number] [place] [address] September, [facility] [place] [facility] [address] [id number] [place] [address] September, [facility] [address] [id number] [place] [address] September, [facility] [place] [facility] [address] [id number] [place] [address] September, [facility] [address] [id number] [place] [address] September, [facility] [place] [facility] [address] [id number] [place] [address] September, [facility] [address] [id number] [place] [address] September, [facility] [place] [facility] [address] [id number] [place] [address] September, [facility] [address] [id number] [place] [address] Aug, [facility] [place] [facility] [address] [id number] [place] [address] Aug, [facility] [place] [facility] [address] [id number] [place] [address] Aug, [facility] [place] [facility] [address] [id number] [place] [address] Aug, [facility] [place] [facility] [address] [id number] [place] [address] Jul, [facility] [place] [facility] [address] [id number] [place] [address] Jul, [facility] [place] [facility] [address] [id number] [place] [address] Jun, [facility] [place] [facility] [address] [id number] [place] [address] Jun, [facility] [place] [facility] [address] [id number] [place] [address] Jun, [facility] [place] [facility] [address] [id number] [place] [address] Jun, [facility] [place] [facility] [address] [id number] [place] [address] Jun, [facility] [place] [facility] [address] [id number] [place] [address] Jun, [facility] [place] [facility] [address] [id number] [place] [address] May, [facility] [place] [facility] [address] [id number] [place] [address] May, [facility] [place] [facility] [address] [id number] [place] [address] May, [facility] [place] [facility] [address] [id number] [place] [address] May, [facility] [facility] [address] [id number] [place] [address] May, [facility] [place] [address] [id number], [place] [address] May, [facility] [place] [facility] [address] [id number], [place] [address] Feb, [facility] [place] [facility] [address] [id number] [place] [address] Feb, [facility] [place] [facility] [address] [id number], [place] [address] Feb, [facility] [address] [id number], [place] [address] Feb, [facility] [place] [address] [id number], [place] [address] 04 Jan, 2013 [facility] [address] [id number] [place] [address] Jan, [facility] [place] [facility] [address] [id number] [place] [address] Jan, [facility] [address] [id number] [place] [address] Dec, [facility] [address] [id number] [place] [address] Nov, [facility] [address] [id number] [place] [address] Nov, [facility] [address] [id number] [place] [address] Nov, [facility] [address] [id number] [place] [address] Nov, [facility] [address] [id number] [place] [address] Nov, [facility] [address] [id number] [place] [address] Oct, [facility] [address] [id number] [place] [address] September, [facility] [address] [id number] [place] [address] September, [facility] [address] [id number] [place] [address] Aug, [facility] [address] [id number] [place] [address] Aug, [facility] [address] [id number] [place] [address] 29 Jul, 2012 [facility] [address] [id number] [place] [address] Jul, [facility] [address] [id number] [place] [address] 08 Jul, 2012 [facility] [address] [id number] [place] [address] Jul, [facility] [facility] [address] [id number] [place] [address] Jun, [facility] [address] [id number] [place] [address] Jun, [facility] [address] [id number] [place] [address] Jun, [facility] [address] [id number] [place] [address] May, [facility] [address] [id number] [place] [address] May, [facility] [address] [id number] [place] [address] May, [facility] [address] [id number] [place] [address] May, [facility] [address] [id number] [place] [address] Apr, [facility] [address] [id number] [place] [address] Apr, [facility] [address] [id number] [place] [address] Apr, [facility] [address] [id number] [place] [address] Apr, [facility] [address] [id number] [place] [address] Apr, [facility] [address] [id number] [place] [address] Apr, [facility] [address] [id number] [place] [address] Mar, [facility] [address] [id number] [place] [address] Mar, [facility] [address] [id number] [place] [address] Mar, [facility] [address] [facility] [id number] [place] [address] Mar, [facility] [address] [id number] [place] [address] Mar, [facility] [address] [id number] [place] [address] Mar, [facility] [address] [id number] [place] [address] Feb, [facility] [address] [facility] [id number] [place] [address] Feb, [facility] [address] [id number], [place] [address] Feb, [facility] [address] [id number] [place] [address] Feb, [facility] [address] [facility] [id number], [place] [address] Jan, [facility] [address] [id number], [place] [address] 25 Jan, 2012 [facility] [address] [id number], [place] [address] 24 Jan, 2012 [facility] [address] [id number], [place] [address] 10 Jan, 2012 [facility] [address] [facility] [id number], [place] [address] Dec, [facility] [address] [facility] [id number], [place] [address] Dec, [facility] [address] [id number] [place] [address] Nov, [facility] [address] [id number] [place] [address] Oct, [facility] [address] [id number] [place] [address] Oct, [facility] [address] [id number] [place] [address] Oct, [facility] [address] [id number] [place] [address] September, [facility] [address] [id number] [place] [address] September, [facility] [address] [id number] [place] [address] September, [facility] [address] [id number] [place] [address] September, [facility] [address] [id number] [place] [address] September, [facility] [address] [id number] [place] [address] September, [facility] [address] [facility] [id number] [place] [address] September, [facility] [address] [id number] [place] [address] Jul, [facility] [address] [id number] [place] [address] Jul, [facility] [address] [id number] [place] [address] Jun, [facility] [address] [id number] [place] [address] Jun, [facility] [address] [id number] [place] [address] Jun, [facility] [address] [id number], [place] [address] May, [facility] [address] [facility] [id number], [place] [address] Mar, [facility] [address] [facility] [id number], [place] [address] Mar, [facility] [address] [facility] [id number], [place] [address] Mar, [facility] [address] [facility] [id number], [place] [address] Feb, [facility] [address] [facility] [id number], [place] [address] Feb, [facility] [id number], [place] [address] Dec, [facility] [id number], [place] [address] May, [facility] [id number], [place] [address] Apr, [facility] [id number], [place] [address] Apr, [facility] [id number], [place] [address] Apr, [facility] [address] [id number], [place] [address] Apr, [facility] [address] [id number], [place] [address] Feb, [facility] [address] [id number], [place] [address] Oct, IMMUNIZATIONS No Known Immunizations SOCIAL HISTORY Never Assessed REASON FOR VISIT Depression Pt in for states she is doing well on new medication SUZANNE Victor PLAN OF CARE VITAL SIGNS Height 62 in 2017-12-06 Weight 129.4 lbs 2017-12-06 Heart Rate 66 bpm 2017-12-06 Respiratory Rate 20 2017-12-06 BMI 23.66 kg/m2 2017-12-06 Blood pressure systolic 114 mmHg 2017-12-06 Blood pressure diastolic 62 mmHg 2017-12-06 MEDICATIONS Medication Instructions Dosage Frequency Start Date End Date Duration Status Cyanocobalamin 1000 MCG/ML Orally once monthly as directed Jul, Active Folic Acid 1 MG Orally Once a day 1 tablet 24h Active Warfarin Sodium 1 MG Orally Once a day 1 tablet 24h 30 Active Clopidogrel Bisulfate 75 MG Orally Once a day 1 tablet 24h Active Flonase 50 MCG/ACT Nasally Once a day 1 spray in each nostril 24h Active Lexapro 10 mg Orally Once a day 1 tablet 24h Nov, 30 day(s) Active Zofran ODT 4 MG Orally 3 times a day 1 tablet 8h Aug, Not-Taking Stool Softener 100 MG Orally Once a day 1 capsule as needed 24h Active Vitamin D 2000 UNIT Orally Once a day 1 capsule 24h Active Simvastatin 20MG TAKE 2 TABLETS ONCE DAILY Active Montelukast Sodium 10 mg Orally Once a day 1 tablet in the evening 24h Active Pepcid 20 MG Orally Once a day 1 tablet at bedtime 24h Active Lisinopril 10 mg Orally Once a day 1 tablet 24h Active Amlodipine Besylate 10 MG Orally Once a day 1 tablet 24h 90 days Active Valium 2 MG Orally Once a day 1 tablet as needed 24h 10 Oct, 2014 Active Metoprolol Succinate ER 50MG Orally Once a day 1 tablet 24h 90 days Active Klor-Con M20 20 meq Orally Once a day 1 tablet with food 24h 30 Active RESULTS No Results PROCEDURES Procedure Date Ordered Result Body Site [facility] VISIT ESTABLISHED PATIENT Dec 06, 2017 INSTRUCTIONS MEDICATIONS ADMINISTERED No Known Medications [...]
--- OUTSIDE RECORDS SUMMARY | 2018-12-05 11:51 | XMS REPORT ---
Author Author ERIK SAMAYOA [facility] Address [address] [place] [address] Care Team Providers Care Statement Clerk Name Role Phone ERIK SAMAYOA Unavailable PROBLEMS Type Condition ICD9-CM Code JSL54-KG Code Onset Dates Condition Status SNOMED Code Problem Mood disorder F39 Active 40836655 Problem PVD (peripheral vascular disease) I73.9 Active 238249156 Problem Amput leg, unil NOS-comp S88.919A Active 07339219 Problem Acute cystitis with hematuria N30.01 Active 85061020 Problem Major depressive disorder, single episode, unspecified F32.9 Active 43130011 Problem Anticoagulant long-term use Z79.01 Active 991039409 Problem Vitamin B12 deficiency E53.8 Dec, Active 722752355 Problem Chronic obstructive pulmonary disease, unspecified COPD type J44.9 Active 85782846 Problem Congestive heart failure, unspecified congestive heart failure chronicity, unspecified congestive heart failure type I50.9 Active 00279947 Problem Chronic fatigue, unspecified R53.82 Active 929088464 Problem Peripheral vascular disease I73.9 Active 155674361 Problem Chronic fatigue R53.82 Active 53798250 ALLERGIES No Information ENCOUNTERS Encounter Location Date Diagnosis [place] [id number] [address] Jan, [facility] [id number] [place] [address] Jan, Anticoagulant long-term use Z79.01 [facility] [address] [place] [id number] [place] [address] Dec, Anticoagulant long-term use Z79.01 [facility] [address], [place] [address] Dec, Vitamin B12 deficiency E53.8 [place] [address] [place] [id number] [place] [address] Dec, Major depressive disorder, single episode, unspecified F32.9 [place] [address] [place] [id number] [place] [address] Nov, Vitamin B 12 deficiency E53.8 [place] [id number] [place] [address] Nov, Anticoagulant long-term use Z79.01 ; Mood disorder F39 ; Chronic obstructive pulmonary disease, unspecified COPD type J44.9 ; Peripheral vascular disease I73.9 and Chronic fatigue R53.82 [place] [address] [place] [id number] [place] [address] Nov, Mood disorder F39 [place] [address] [place] [id number] [place] [address] Nov, [place] [address] [address] [id number] [place] [address] Oct, Mood disorder F39 ; Chronic obstructive pulmonary disease, unspecified COPD type J44.9 ; Peripheral vascular disease I73.9 and Chronic fatigue R53.82 [place] [address] [place] [id number] [place] [address] September, Anticoagulant long-term use Z79.01 and Congestive heart failure, unspecified congestive heart failure chronicity, unspecified congestive heart failure type I50.9 [place] [id number] [place] [address] September, Vitamin B12 deficiency E53.8 [place] [id number] [place] [address] September, Anticoagulant long-term use Z79.01 [place] [id number] [place] [address] September, Anticoagulant long-term use Z79.01 and Congestive heart failure, unspecified congestive heart failure chronicity, unspecified congestive heart failure type I50.9 [place] [address] [address] Aug, Chronic fatigue, unspecified R53.82 [place] [address] [address] Aug, Anticoagulant long-term use Z79.01 [place] [address] [address] Aug, Nausea R11.0 and Weakness R53.1 [place] [address] [address] Aug, [facility] [address] [address] Aug, Hematuria R31.9 and Acute cystitis with hematuria N30.01 [place] [address] [address] Aug, [place] [address] [address] Jul, Vitamin B 12 deficiency E53.8 [place] [address] [address] Jul, Anticoagulant long-term use Z79.01 [place] [address] [address] Jun, Chronic fatigue, unspecified R53.82 [place] [address] [address] Jun, Anticoagulant long-term use Z79.01 [place] [address] [address] May, Flu-like symptoms R68.89 and Influenza A J10.1 [place] [address] [address] May, [place] [address] [address] May, Chronic fatigue, unspecified R53.82 [facility] [address], [place] [address] May, Anticoagulant long-term use Z79.01 [place] [id number] [place] [address] Apr, Medicare welcome exam Z00.00 ; Anticoagulant long-term use Z79.01 ; Medicare annual wellness visit, initial Z00.00 ; Medicare annual wellness visit, subsequent Z00.00 and Chronic fatigue, unspecified R53.82 [place] [address] [place] [id number] [place] [address] Mar, Chronic fatigue, unspecified R53.82 [place] [address] [place] [id number] [place] [address] Mar, Anticoagulant long-term use Z79.01 [place] [address] [place] [id number] [place] [address] Mar, Anticoagulant long-term use Z79.01 and Hematuria R31.9 [place] [address] [place] [id number] [place] [address] Mar, Hematuria R31.9 [place] [address] [place] [id number] [place] [address] Feb, Anticoagulant long-term use Z79.01 [place] [id number] [place] [address] Feb, Anticoagulant long-term use Z79.01 [place] [id number] [place] [address] Feb, Anticoagulant long-term use Z79.01 [place] [address] [place] [id number] [place] [address] Feb, Chronic fatigue, unspecified R53.82 [place] [id number] [place] [address] Feb, Anticoagulant long-term use Z79.01 [facility] [address], [place] [address] Feb, Congestive heart failure, unspecified congestive heart failure chronicity, unspecified congestive heart failure type I50.9 [facility] [address], [place] [address] Feb, Congestive heart failure, unspecified congestive heart failure chronicity, unspecified congestive heart failure type I50.9 [facility] [address] [place] [id number] [place] [address] Feb, [facility] [address] [place] [id number] [place] [address] Jan, Anticoagulant long-term use Z79.01 [place] [address] [place] [id number] [place] [address] Jan, [facility] [address] [place] [id number] [place] [address] Jan, Anticoagulant long-term use Z79.01 and Hematuria R31.9 [facility] [address] [place] [id number] [place] [address] Jan, Anticoagulant long-term use Z79.01 [place] [id number] [place] [address] Jan, Chronic fatigue, unspecified R53.82 [facility] [id number] [place] [address] Jan, Anticoagulant long-term use Z79.01 [facility] [address], [place] [address] Dec, Chronic fatigue, unspecified R53.82 [facility] [address] [place] [id number] [place] [address] Dec, [facility] [address] [place] [id number] [place] [address] 07 Aug, 2017 Chronic fatigue, unspecified R53.82 and Encounter for therapeutic drug level monitoring Z51.81 [facility] [id number] [place] [address] Nov, Encounter for therapeutic drug level monitoring Z51.81 [facility] [address] [place] [id number] [place] [address] Nov, Hematuria R31.9 [facility] [address] [address] Nov, Hematuria R31.9 ; Anticoagulant long-term use Z79.01 and PVD (peripheral vascular disease) I73.9 [facility] [address] [place] [id number] [place] [address] Nov, Anticoagulant long-term use Z79.01 [facility] [address] [place] [id number] [place] [address] Nov, Anticoagulant long-term use Z79.01 [facility] [address] [place] [id number] [place] [address] Nov, [facility] [address] [place] [id number] [place] [address] Nov, Hematuria R31.9 and Acute cystitis with hematuria N30.01 [facility] [address] [place] [id number] [place] [id number] Oct, [facility] [address] [place] [id number] [place] [address] Oct, [facility] [address] [id number] [place] [address] Oct, Hematuria R31.9 [facility] [address] [id number] [place] [address] Oct, Hematuria R31.9 [facility] [id number] [place] [address] Oct, Anticoagulant long-term use Z79.01 [facility] [address] [address] Oct, Anticoagulant long-term use Z79.01 [place] [address] [address] Oct, [place] [address] [address] September, PVD (peripheral vascular disease) I73.9 ; Amput leg, unil NOS-comp S88.919A ; Acute cystitis without hematuria N30.00 ; Anticoagulant long-term use Z79.01 and Hypokalemia E87.6 [place] [address] [address] Aug, Anticoagulant long-term use Z79.01 and Bronchitis J40 [place] [address] [address] Jul, [place] [address] [address] Jul, Anticoagulant long-term use Z79.01 and Mood disorder F39 [place] [address] [address] Jul, [place] [address] [address] May, [place] [address] [address] May, Hypokalemia E87.6 [place] [address] [address] May, Mood disorder F39 [place] [address] [address] May, Anticoagulant long-term use Z79.01 [place] [address] [address] Apr, Anticoagulant long-term use Z79.01 [place] [address] [place] [id number] [place] [address] Apr, Anticoagulant long-term use Z79.01 [facility] [address] [place] [id number] [place] [address] Apr, [facility] [address] [place] [id number] [place] [address] 16 Apr, 2016 Anticoagulant long-term use Z79.01 [facility] [address] [place] [id number] [place] [address] 16 Apr, 2016 Anticoagulant long-term use Z79.01 [facility] [address] [address] Apr, Anticoagulant long-term use Z79.01 [facility] [address] [id number] [place] [address] Mar, [facility] [address] [place] [id number] [place] [address] Mar, [facility] [address] [place] [id number] [place] [address] Mar, Anticoagulant long-term use Z79.01 [facility] [address] [place] [id number] [place] [address] Feb, [facility] [address] [place] [id number] [place] [address] Feb, [facility] [address] [place] [id number] [place] [address] 07 Feb, 2016 Anticoagulant long-term use Z79.01 [facility] [address] [place] [id number] [place] [address] 05 Feb, 2016 Anticoagulant long-term use Z79.01 [facility] [address] [place] [id number] [place] [address] 29 Jan, 2016 [facility] [address] [place] [id number] [place] [address] Jan, Anticoagulant long-term use Z79.01 [facility] [address] [place] [id number] [place] [address] Jan, Anticoagulant long-term use Z79.01 [facility] [address] [place] [id number] [place] [address] Dec, Anticoagulant long-term use Z79.01 [facility] [address] [address] Dec, Anticoagulant long-term use Z79.01 [facility] [address] [place] [id number] [place] [address] Dec, Anticoagulant long-term use Z79.01 and Mood disorder F39 [place] [address] [place] [id number] [place] [address] Dec, [facility] [address] [address] Nov, [facility] [address] [place] [id number] [place] [address] Nov, Anticoagulant long-term use Z79.01 [place] [address] [place] [id number] [place] [address] Nov, Anticoagulant long-term use Z79.01 [place] [address] [place] [id number] [place] [address] September, Anticoagulant long-term use Z79.01 [facility] [address] [id number] [place] [address] Jul, Anticoagulant long-term use Z79.01 [place] [address] [address] May, Anticoagulant long-term use Z79.01 [facility] [address] [place] [id number] [place] [address] May, Anticoagulant long-term use Z79.01 [facility] [address] [place] [id number] [place] [address] May, Anticoagulant long-term use Z79.01 [facility] [address] [address] May, Anticoagulant long-term use Z79.01 [facility] [address] [address] May, [facility] [address] [address] May, Congestive heart failure, unspecified congestive heart failure chronicity, unspecified congestive heart failure type I50.9 and Pulmonary congestion R09.89 [place] [address] [address] Apr, Cough R05 ; Congestive heart failure, unspecified congestive heart failure chronicity, unspecified congestive heart failure type I50.9 and Pulmonary congestion R09.89 [place] [address] [address] Mar, Hematuria R31.9 [place] [address] [address] Mar, [place] [address] [place] [id number] [place] [address] Mar, Anticoagulant long-term use Z79.01 [place] [address] [place] [id number] [place] [address] Mar, [place] [address] [place] [id number] [place] [address] Mar, Hematuria R31.9 and Infective urethritis N34.2 [place] [address] [address] Mar, Anticoagulant long-term use Z79.01 [place] [address] [place] [id number] [place] [address] Mar, Anticoagulant long-term use Z79.01 [facility] [address] [place] [address] Mar, [facility] [address], [place] [address] Mar, Anticoagulant long-term use Z79.01 [facility] [address], [place] [address] Feb, Peristomal skin breakdown L98.499 [facility] [id number] [place] [address] Feb, [place] [id number] [place] [address] Feb, UTI (urinary tract infection) N39.0 [place] [id number] [place] [address] Jan, [facility] [id number] [place] [address] Dec, High risk medication use V58.69 [place] [id number] [place] [address] Nov, High risk medication use V58.69 [place] [id number] [place] [address] Nov, [place] [address] [place] [id number] [address] Nov, UTI (lower urinary tract infection) 599.0 ; URI, acute 465.9 ; Insomnia 780.52 ; Anxiety 300.00 and Lower limb amputation, unspecified level V49.70 [place] [id number] [place] [address] Oct, UTI (lower urinary tract infection) 599.0 ; URI, acute 465.9 ; Insomnia 780.52 ; Anxiety 300.00 and Lower limb amputation, unspecified level V49.70 [place] [address], [place] [address] 14 Aug, 2014 [facility] [place] [facility] [address] [id number] [place] [address] Aug, [facility] [place] [facility] [address] [id number] [place] [address] Jul, 2014 [facility] [place] [facility] [address] [facility] [id number] [place] [address] Jul, 2014 [facility] [place] [facility] [address] [id number] [place] [address] Jun, 2014 [facility] [place] [facility] [address] [id number] [place] [address] Jun, 2014 [facility] [place] [facility] [address] [facility] [id number] [place] [address] Mar, [facility] [place] [facility] [address] [facility] [id number], [place] [address] Mar, [facility] [place] [facility] [address] [facility] [id number] [place] [address] Mar, [facility] [place] [facility] [address] [facility] [id number] [place] [address] Mar, [facility] [place] [facility] [address] [facility] [id number] [place] [address] Mar, [facility] [place] [facility] [address] [facility] [id number], [place] [address] Feb, [facility] [place] [facility] [address] [facility] [id number], [place] [address] Feb, [facility] [place] [facility] [address] [facility] [id number], [place] [address] Feb, [facility] [place] [facility] [address] [facility] [id number], [place] [address] Feb, [facility] [place] [facility] [address] [facility] [id number], [place] [address] Feb, [facility] [place] [facility] [address] [id number] [place] [address] 16 Feb, 2013 [facility] [place] [facility] [address] [id number] [place] [address] 16 Feb, 2014 [facility] [place] [facility] [address] [id number] [place] [address] Feb, 2013 [facility] [place] [facility] [address] [id number] [place] [address] Feb, 2013 [facility] [place] [facility] [address] [id number] [place] [address] Feb, [facility] [place] [facility] [address] [id number] [place] [address] Feb, [facility] [place] [facility] [address] [id number] [place] [address] Feb, [facility] [place] [facility] [address] [id number] [place] [address] Feb, [facility] [place] [facility] [address] [id number] [place] [address] Feb, [facility] [place] [facility] [address] [id number] [place] [address] Feb, [facility] [place] [facility] [address] [id number] [place] [address] Feb, [facility] [place] [facility] [address] [id number] [place] [address] 28 Jan, 2013 [facility] [place] [facility] [address] [id number] [place] [address] 26 Sep, 2013 [facility] [place] [facility] [address] [id number] [place] [address] 26 Jan, 2013 [facility] [place] [facility] [address] [id number] [place] [address] 04 Sep, 2013 [facility] [place] [facility] [address] [id number] [place] [address] Jan, [facility] [place] [facility] [address] [id number] [place] [address] Nov, [facility] [place] [facility] [address] [id number] [place] [address] Nov, [facility] [place] [facility] [address] [id number] [place] [address] Nov, [facility] [place] [facility] [address] [id number] [place] [address] Nov, [facility] [place] [facility] [address] [id number] [place] [address] Nov, [facility] [place] [facility] [address] [id number] [place] [address] Nov, [facility] [place] [facility] [address] [id number] [place] [address] Oct, [facility] [place] [facility] [address] [id number] [place] [address] Oct, [facility] [place] [facility] [address] [id number] [place] [address] Oct, [facility] [place] [facility] [address] [id number] [place] [address] Oct, [facility] [place] [facility] [address] [id number] [place] [address] Oct, [facility] [place] [facility] [address] [id number] [place] [address] Oct, [facility] [place] [facility] [address] [id number] [place] [address] Oct, [facility] [place] [facility] [address] [id number] [place] [address] September, [facility] [place] [facility] [address] [id number] [place] [address] September, [facility] [place] [facility] [address] [id number] [place] [address] September, [facility] [place] [facility] [address] [id number] [place] [address] September, [facility] [place] [facility] [address] [id number] [place] [address] September, [facility] [place] [facility] [address] [id number] [place] [address] September, [facility] [place] [facility] [address] [id number] [place] [address] September, [facility] [place] [facility] [address] [id number] [place] [address] September, [facility] [place] [facility] [address] [id number] [place] [address] Aug, [facility] [place] [facility] [address] [id number] [place] [address] Aug, [facility] [place] [facility] [address] [id number] [place] [address] Aug, [facility] [place] [facility] [address] [id number] [place] [address] Aug, [facility] [place] [facility] [address] [facility] [id number] [place] [address] Jul, [facility] [place] [facility] [address] [id number] [place] [address] Jul, [facility] [place] [facility] [address] [id number] [place] [address] Jun, [facility] [place] [facility] [address] [id number] [place] [address] Jun, [facility] [place] [facility] [address] [id number] [place] [address] Jun, [facility] [place] [facility] [address] [id number] [place] [address] Jun, [facility] [place] [facility] [address] [id number] [place] [address] Jun, [facility] [place] [facility] [address] [id number] [place] [address] Jun, [facility] [place] [facility] [address] [id number] [place] [address] May, [facility] [place] [facility] [address] [id number] [place] [address] May, [facility] [place] [facility] [address] [id number] [place] [address] May, [facility] [place] [facility] [address] [id number], [place] [address] May, [facility] [place] [facility] [address] [id number] [place] [address] May, [facility] [place] [facility] [address] [id number], [place] [address] May, [facility] [place] [facility] [address] [id number] [place] [address] Feb, [facility] [place] [facility] [address] [id number], [place] [address] Feb, [facility] [place] [facility] [address] [id number], [place] [address] Feb, [facility] [place] [facility] [address] [id number], [place] [address] Feb, [facility] [place] [facility] [address] [id number], [place] [address] Jan, [facility] [place] [facility] [address] [id number], [place] [address] Jan, [facility] [place] [facility] [address] [id number], [place] [address] Jan, [facility] [place] [facility] [address] [id number] [place] [address] Dec, [facility] [address] [id number] [place] [address] Nov, [facility] [place] [facility] [address] [id number] [place] [address] Nov, [facility] [address] [id number] [place] [address] Nov, [facility] [place] [facility] [address] [id number] [place] [address] Nov, [facility] [address] [id number] [place] [address] Nov, [facility] [address] [id number] [place] [address] Oct, [facility] [address] [id number] [place] [address] September, [facility] [address] [id number] [place] [address] September, [facility] [address] [id number] [place] [address] Aug, [facility] [address] [id number] [place] [address] Aug, [facility] [address] [id number] [place] [address] Jul, [facility] [place] [facility] [address] [id number] [place] [address] Jul, [facility] [place] [facility] [address] [id number] [place] [address] Jul, [facility] [place] [facility] [address] [id number] [place] [address] Jul, [facility] [place] [facility] [address] [id number] [place] [address] Jun, [facility] [place] [facility] [address] [id number] [place] [address] Jun, [facility] [address] [id number] [place] [address] Jun, [facility] [address] [id number] [place] [address] May, [facility] [address] [id number] [place] [address] May, [facility] [address] [id number] [place] [address] May, [facility] [address] [id number] [place] [address] May, [facility] [address] [id number] [place] [address] Apr, [facility] [address] [id number] [place] [address] Apr, [facility] [address] [id number] [place] [address] Apr, [facility] [address] [id number] [place] [address] Apr, [facility] [address] [id number] [place] [address] Apr, [facility] [address] [id number] [place] [address] Apr, [facility] [place] [facility] [address] [id number] [place] [address] Mar, [facility] [place] [facility] [address] [id number] [place] [address] Mar, [facility] [address] [id number] [place] [address] Mar, [facility] [address] [id number], [place] [address] Mar, [facility] [place] [facility] [address] [id number] [place] [address] Mar, [facility] [place] [facility] [address] [id number] [place] [address] Mar, [facility] [place] [facility] [address] [id number] [place] [address] Feb, [facility] [place] [facility] [address] [id number] [place] [address] Feb, [facility] [place] [facility] [address] [id number] [place] [address] Feb, [facility] [place] [facility] [address] [id number] [place] [address] Feb, [facility] [place] [facility] [address] [id number] [place] [address] Jan, [facility] [place] [facility] [address] [id number] [place] [address] Jan, [facility] [place] [facility] [address] [id number] [place] [address] 24 Jan, 2012 [facility] [place] [facility] [address] [id number] [place] [address] Jan, [facility] [place] [facility] [address] [id number], [place] [address] Dec, [facility] [place] [facility] [address] [id number], [place] [address] Dec, [facility] [place] [facility] [address] [id number] [place] [address] Nov, [facility] [place] [facility] [address] [id number], [place] [address] Oct, [facility] [place] [facility] [address] [id number] [place] [address] Oct, [facility] [place] [facility] [address] [id number] [place] [address] Oct, [facility] [address] [id number] [place] [address] September, [facility] [place] [facility] [address] [id number] [place] [address] September, [facility] [address] [id number] [place] [address] September, [facility] [address] [id number] [place] [address] September, [facility] [address] [id number] [place] [address] September, [facility] [address] [id number] [place] [address] September, [facility] [address] [id number] [place] [address] September, [facility] [address] [id number] [place] [address] Jul, [facility] [address] [id number] [place] [address] Jul, [facility] [address] [id number] [place] [address] Jun, [facility] [address] [id number] [place] [address] Jun, [facility] [address] [id number] [place] [address] Jun, [facility] [place] [facility] [address] [id number] [place] [address] May, [facility] [place] [facility] [address] [id number] [place] [address] Mar, [facility] [address] [id number] [place] [address] Mar, [facility] [id number] [address] 14 Mar, 2011 [facility] [id number] [place] [address] 31 Feb, 2011 [facility] [id number] [place] [address] Feb, [facility] [id number] [place] [address] Dec, [facility] [id number] [place] [address] May, [facility] [id number] [place] [address] Apr, [facility] [id number] [place] [address] Apr, [facility] [id number] [place] [address] Apr, [facility] [id number], [place] [address] Apr, [facility] [id number], [place] [address] Feb, [facility] [id number], [place] [address] Oct, IMMUNIZATIONS No Known Immunizations SOCIAL HISTORY Never Assessed REASON FOR VISIT Lab (walk-in) PLAN OF CARE VITAL SIGNS MEDICATIONS Unknown Medications RESULTS Name Result Date Reference Range INR (IN HOUSE) 2017-11-28 INR 2.4 1.10 - 3.30 PREVIOUS INR 2.8 CURRENT COUMADIN DOSE 1 mg qd NEW COUMADIN DOSE Lot # [id number] Exp date 05 Aug 2018 PROCEDURES Procedure Date Ordered Result Body Site PROTHROMBIN TIME November 28, 2017 INSTRUCTIONS MEDICATIONS ADMINISTERED No [...]
--- OUTSIDE RECORDS SUMMARY | 2018-12-05 11:52 | XMS REPORT ---
Author Author ERIK SAMAYOA Organization [facility] Address [address] [place] [address] Care Team Providers Care Outside Rigger Name Role Phone ERIK SAMAYOA Unavailable PROBLEMS Type Condition ICD9-CM Code OOC56-NP Code Onset Dates Condition Status SNOMED Code Problem Mood disorder F39 Active 28613304 Problem PVD (peripheral vascular disease) I73.9 Active 058731671 Problem Amput leg, unil NOS-comp S88.919A Active 75851341 Problem Acute cystitis with hematuria N30.01 Active 09270615 Problem Major depressive disorder, single episode, unspecified F32.9 Active 88483452 Problem Anticoagulant long-term use Z79.01 Active 749890677 Problem Vitamin B12 deficiency E53.8 Dec, Active 742484486 Problem Chronic obstructive pulmonary disease, unspecified COPD type J44.9 Active 71133190 Problem Congestive heart failure, unspecified congestive heart failure chronicity, unspecified congestive heart failure type I50.9 Active 44965007 Problem Chronic fatigue, unspecified R53.82 Active 665067664 Problem Peripheral vascular disease I73.9 Active 009636960 Problem Chronic fatigue R53.82 Active 34649565 ALLERGIES Substance Reaction Event Type Date Status Penicillin V Potassium Unknown Drug Allergy Nov, Active Morphine Sulfate Unknown Drug Allergy Nov, Active Codeine Sulfate Unknown Drug Allergy Nov, Active Aspir-81 Unknown Drug Allergy Nov, Active ENCOUNTERS Encounter Location Date Diagnosis [facility] [address] [facility] [id number] [address] Dec, Anticoagulant long-term use Z79.01 [facility] [address] [facility] [id number], [place] [address] Dec, Vitamin B12 deficiency E53.8 [facility] [address] [facility] [id number], [place] [address] Dec, Major depressive disorder, single episode, unspecified F32.9 [place] [id number] [address] Nov, Vitamin B 12 deficiency E53.8 [place] [address], [place] [address] Nov, Anticoagulant long-term use Z79.01 ; Mood disorder F39 ; Chronic obstructive pulmonary disease, unspecified COPD type J44.9 ; Peripheral vascular disease I73.9 and Chronic fatigue R53.82 [place] [address] [place] [id number] [place] [address] Nov, Mood disorder F39 [place] [address] [address] [id number] [place] [address] Nov, [place] [address] [address] [id number] [place] [address] Oct, Mood disorder F39 ; Chronic obstructive pulmonary disease, unspecified COPD type J44.9 ; Peripheral vascular disease I73.9 and Chronic fatigue R53.82 [place] [address] [place] [address] September, Anticoagulant long-term use Z79.01 and Congestive heart failure, unspecified congestive heart failure chronicity, unspecified congestive heart failure type I50.9 [place] [address], [place] [address] September, Vitamin B12 deficiency E53.8 [place] [address] [place] [address] September, Anticoagulant long-term use Z79.01 [place] [address] [place] [id number] [place] [address] September, Anticoagulant long-term use Z79.01 and Congestive heart failure, unspecified congestive heart failure chronicity, unspecified congestive heart failure type I50.9 [place] [address] [place] [address] Aug, Chronic fatigue, unspecified R53.82 [facility] [address] [address] Aug, Anticoagulant long-term use Z79.01 [facility] [address] [address] Aug, Nausea R11.0 and Weakness R53.1 [place] [address] [address] Aug, [facility] [address] [address] Aug, Hematuria R31.9 and Acute cystitis with hematuria N30.01 [place] [address] [address] Aug, [place] [address] [address] Jul, Vitamin B 12 deficiency E53.8 [place] [address] [address] Jul, Anticoagulant long-term use Z79.01 [place] [address] [address] Jun, Chronic fatigue, unspecified R53.82 [place] [address] [address] Jun, Anticoagulant long-term use Z79.01 [place] [address] [place] [id number] [place] [address] May, Flu-like symptoms R68.89 and Influenza A J10.1 [place] [address] [address] May, [place] [address] [address] May, Chronic fatigue, unspecified R53.82 [place] [address] [place] [address] May, Anticoagulant long-term use Z79.01 [place] [address] [place] [id number] [place] [address] Apr, Medicare welcome exam Z00.00 ; Anticoagulant long-term use Z79.01 ; Medicare annual wellness visit, initial Z00.00 ; Medicare annual wellness visit, subsequent Z00.00 and Chronic fatigue, unspecified R53.82 [place] [address] [place] [id number] [place] [address] 15 Mar, 2017 Chronic fatigue, unspecified R53.82 [place] [address] [place] [id number] [place] [address] 07 Mar, 2017 Anticoagulant long-term use Z79.01 [place] [address] [place] [id number] [place] [address] Mar, Anticoagulant long-term use Z79.01 and Hematuria R31.9 [place] [address] [place] [id number] [place] [address] Mar, Hematuria R31.9 [place] [address] [place] [id number] [place] [address] Feb, Anticoagulant long-term use Z79.01 [place] [address] [place] [id number] [place] [address] Feb, Anticoagulant long-term use Z79.01 [place] [address] [place] [address] Feb, Anticoagulant long-term use Z79.01 [place] [address] [place] [id number] [place] [address] Feb, Chronic fatigue, unspecified R53.82 [place] [address] [place] [id number] [place] [address] Feb, Anticoagulant long-term use Z79.01 [place] [address] [place] [id number] [place] [address] Feb, Congestive heart failure, unspecified congestive heart failure chronicity, unspecified congestive heart failure type I50.9 [facility] [address], [place] [address] Feb, Congestive heart failure, unspecified congestive heart failure chronicity, unspecified congestive heart failure type I50.9 [place] [address] [place] [address] Feb, [facility] [address] [place] [id number] [place] [address] Jan, Anticoagulant long-term use Z79.01 [place] [address] [place] [address] Jan, [place] [address] [place] [id number] [place] [address] Jan, Anticoagulant long-term use Z79.01 and Hematuria R31.9 [place] [address] [place] [address] Jan, Anticoagulant long-term use Z79.01 [place] [address] [place] [address] Jan, Chronic fatigue, unspecified R53.82 [place] [address], [place] [address] Jan, Anticoagulant long-term use Z79.01 [place] [address], [place] [address] Dec, Chronic fatigue, unspecified R53.82 [place] [address] [place] [address] Dec, [place] [address] [place] [address] Dec, Chronic fatigue, unspecified R53.82 and Encounter for therapeutic drug level monitoring Z51.81 [place] [address] [place] [id number] [place] [address] Nov, Encounter for therapeutic drug level monitoring Z51.81 [facility] [address] [address] Nov, Hematuria R31.9 [facility] [address] [place] [id number] [place] [address] Nov, Hematuria R31.9 ; Anticoagulant long-term use Z79.01 and PVD (peripheral vascular disease) I73.9 [facility] [address] [place] [address] [id number] [place] [address] Nov, Anticoagulant long-term use Z79.01 [facility] [address] [place] [id number] [place] [address] Nov, Anticoagulant long-term use Z79.01 [place] [address] [address] Nov, [facility] [address] [place] [address] [id number] [place] [address] Nov, Hematuria R31.9 and Acute cystitis with hematuria N30.01 [facility] [address] [place] [id number] [place] [id number] Oct, [facility] [address] [place] [id number] [place] [address] Oct, [facility] [address] [place] [id number] [place] [address] Oct, Hematuria R31.9 [facility] [address] [place] [address] [id number] [place] [address] Oct, Hematuria R31.9 [facility] [address] [place] [id number] [place] [address] Oct, Anticoagulant long-term use Z79.01 [facility] [address] [place] [address] [id number] [place] [address] Oct, Anticoagulant long-term use Z79.01 [place] [address] [place] [id number] [place] [address] Oct, [place] [address] [address] September, PVD (peripheral vascular disease) I73.9 ; Amput leg, unil NOS-comp S88.919A ; Acute cystitis without hematuria N30.00 ; Anticoagulant long-term use Z79.01 and Hypokalemia E87.6 [place] [address] [address] Aug, Anticoagulant long-term use Z79.01 and Bronchitis J40 [place] [address] [address] Jul, [place] [address] [address] Jul, Anticoagulant long-term use Z79.01 and Mood disorder F39 [place] [address] [address] Jul, [place] [address] [address] May, [place] [address] [address] May, Hypokalemia E87.6 [place] [address] [address] May, Mood disorder F39 [place] [address] [address] May, Anticoagulant long-term use Z79.01 [place] [address] [address] Apr, Anticoagulant long-term use Z79.01 [place] [address] [address] Apr, Anticoagulant long-term use Z79.01 [facility] [address] [place] [address] Apr, [facility] [address] [place] [id number] [place] [address] Apr, Anticoagulant long-term use Z79.01 [facility] [address] [place] [id number] [place] [address] Apr, Anticoagulant long-term use Z79.01 [facility] [address] [place] [id number] [place] [address] Apr, Anticoagulant long-term use Z79.01 [facility] [address] [place] [id number] [place] [address] Mar, [facility] [address] [place] [id number] [place] [address] Mar, [facility] [address] [place] [id number] [place] [address] Mar, Anticoagulant long-term use Z79.01 [facility] [address] [place] [id number] [place] [address] Feb, [facility] [address] [place] [address] Feb, [facility] [address] [place] [id number] [place] [address] Feb, Anticoagulant long-term use Z79.01 [facility] [address] [place] [id number] [place] [address] 05 Feb, 2016 Anticoagulant long-term use Z79.01 [facility] [address] [place] [id number] [place] [address] Jan, [facility] [address] [place] [address] Jan, Anticoagulant long-term use Z79.01 [facility] [address] [place] [id number] [place] [address] Jan, Anticoagulant long-term use Z79.01 [facility] [address] [address] Dec, Anticoagulant long-term use Z79.01 [facility] [address] [address] Dec, Anticoagulant long-term use Z79.01 [facility] [address] [address] Dec, Anticoagulant long-term use Z79.01 and Mood disorder F39 [place] [address] [address] Dec, [facility] [address] [address] Nov, [facility] [address] [address] Nov, Anticoagulant long-term use Z79.01 [facility] [address] [place] [id number] [place] [address] Nov, Anticoagulant long-term use Z79.01 [place] [address] [place] [id number] [place] [address] September, Anticoagulant long-term use Z79.01 [place] [address] [place] [id number] [place] [address] Jul, Anticoagulant long-term use Z79.01 [place] [address] [place] [id number] [place] [address] May, Anticoagulant long-term use Z79.01 [facility] [address] [place] [id number] [place] [address] May, Anticoagulant long-term use Z79.01 [facility] [address] [address] May, Anticoagulant long-term use Z79.01 [facility] [address] [place] [id number] [place] [address] May, Anticoagulant long-term use Z79.01 [facility] [address] [place] [id number] [place] [address] May, [facility] [address] [address] May, Congestive heart failure, unspecified congestive heart failure chronicity, unspecified congestive heart failure type I50.9 and Pulmonary congestion R09.89 [place] [address] [address] Apr, Cough R05 ; Congestive heart failure, unspecified congestive heart failure chronicity, unspecified congestive heart failure type I50.9 and Pulmonary congestion R09.89 [place] [address] [address] Mar, Hematuria R31.9 [place] [address] [address] Mar, [place] [address] [address] Mar, Anticoagulant long-term use Z79.01 [place] [address] [place] [id number] [place] [address] Mar, [place] [address] [address] Mar, Hematuria R31.9 and Infective urethritis N34.2 [place] [address] [address] Mar, Anticoagulant long-term use Z79.01 [place] [address] [place] [id number] [place] [address] Mar, Anticoagulant long-term use Z79.01 [place] [address] [address] Mar, [facility] [address] [place] [id number] [address] Mar, Anticoagulant long-term use Z79.01 [facility] [address], [place] [address] Feb, Peristomal skin breakdown L98.499 [facility] [address] [place] [id number] [address] Feb, [facility] [address] [facility] [id number], [place] [address] Feb, UTI (urinary tract infection) N39.0 [place] [address] [place] [address] Jan, [facility] [address], [place] [address] Dec, High risk medication use V58.69 [facility] [address], [place] [address] Nov, High risk medication use V58.69 [facility] [address], [place] [address] Nov, [facility] [address] [place] [id number] [address] Nov, UTI (lower urinary tract infection) 599.0 ; URI, acute 465.9 ; Insomnia 780.52 ; Anxiety 300.00 and Lower limb amputation, unspecified level V49.70 [facility] [address] [place] [id number] [address] Oct, UTI (lower urinary tract infection) 599.0 ; URI, acute 465.9 ; Insomnia 780.52 ; Anxiety 300.00 and Lower limb amputation, unspecified level V49.70 [facility] [address] [place] [id number] [address] Aug, [facility] [address] [place] [address] Aug, 2014 [facility] [place] [facility] [address] [id number] [place] [address] Jul, 2014 [facility] [place] [facility] [address] [id number] [place] [address] Jul, 2014 [facility] [place] [facility] [address] [id number] [place] [address] Jun, 2014 [facility] [place] [facility] [address] [id number] [place] [address] Jun, 2014 [facility] [place] [facility] [address] [id number] [place] [address] Mar, [facility] [place] [facility] [address] [id number] [place] [address] Mar, [facility] [place] [facility] [address] [facility] [id number] [place] [address] Mar, [facility] [place] [facility] [address] [id number] [place] [address] Mar, [facility] [place] [facility] [address] [facility] [id number] [place] [address] Mar, [facility] [place] [facility] [address] [facility] [id number] [place] [address] Feb, [facility] [place] [facility] [address] [id number] [place] [address] 30 Feb, 2014 [facility] [place] [facility] [address] [id number] [place] [address] 29 Feb, 2014 [facility] [place] [facility] [address] [id number] [place] [address] Feb, [facility] [place] [facility] [address] [id number] [place] [address] Feb, [facility] [place] [facility] [address] [id number] [place] [address] 16 Feb, 2014 [facility] [place] [facility] [address] [id number] [place] [address] 16 Feb, 2013 [facility] [place] [facility] [address] [id number] [place] [address] Feb, [facility] [place] [facility] [address] [id number] [place] [address] Feb, [facility] [place] [facility] [address] [id number] [place] [address] Feb, [facility] [place] [facility] [address] [id number] [place] [address] Feb, [facility] [place] [facility] [address] [id number] [place] [address] Feb, [facility] [place] [facility] [address] [id number] [place] [address] Feb, [facility] [place] [facility] [address] [id number] [place] [address] Feb, [facility] [place] [facility] [address] [id number] [place] [address] Feb, [facility] [place] [facility] [address] [id number] [place] [address] Feb, [facility] [place] [facility] [address] [id number] [place] [address] 28 Jan, 2013 [facility] [place] [facility] [address] [id number] [address] 26 Jan, 2013 [facility] [place] [facility] [address] [id number] [place] [address] 26 Jan, 2013 [facility] [place] [facility] [address] [id number] [place] [address] 04 Jan, 2013 [facility] [place] [facility] [address] [id number], [place] [address] 04 Jan, 2013 [facility] [place] [facility] [address] [id number], [place] [address] Nov, [facility] [place] [facility] [address] [id number] [place] [address] Nov, [facility] [place] [facility] [address] [id number] [place] [address] Nov, [facility] [place] [facility] [address] [id number] [place] [address] Nov, [facility] [place] [facility] [address] [id number] [place] [address] Nov, [facility] [place] [facility] [address] [id number] [place] [address] Nov, [facility] [place] [facility] [address] [id number] [place] [address] Oct, [facility] [place] [facility] [address] [id number] [place] [address] Oct, [facility] [place] [facility] [address] [id number] [place] [address] Oct, [facility] [place] [facility] [address] [id number] [place] [address] Oct, [facility] [place] [facility] [address] [id number] [place] [address] Oct, [facility] [place] [facility] [address] [id number] [place] [address] Oct, [facility] [place] [facility] [address] [id number] [place] [address] Oct, [facility] [place] [facility] [address] [id number] [place] [address] September, [facility] [place] [facility] [address] [id number] [place] [address] September, [facility] [place] [facility] [address] [id number] [place] [address] September, [facility] [place] [facility] [address] [id number] [place] [address] September, [facility] [place] [facility] [address] [id number] [place] [address] September, [facility] [place] [facility] [address] [id number] [place] [address] September, [facility] [place] [facility] [address] [id number] [place] [address] September, [facility] [place] [facility] [address] [id number] [place] [address] September, [facility] [place] [facility] [address] [id number] [place] [address] Aug, [facility] [place] [facility] [address] [id number] [place] [address] Aug, [facility] [place] [facility] [address] [id number] [place] [address] Aug, [facility] [place] [facility] [address] [id number] [place] [address] Aug, [facility] [place] [facility] [address] [id number] [place] [address] Jul, [facility] [place] [facility] [address] [id number] [place] [address] Jul, [facility] [place] [facility] [address] [id number] [place] [address] Jun, [facility] [place] [facility] [address] [id number] [place] [address] Jun, [facility] [place] [facility] [address] [id number] [place] [address] Jun, [facility] [place] [facility] [address] [id number] [place] [address] Jun, [facility] [place] [facility] [address] [id number] [place] [address] 14 Jun, 2013 [facility] [place] [facility] [address] [id number] [place] [address] Jun, [facility] [place] [facility] [address] [id number] [place] [address] May, [facility] [place] [facility] [address] [id number] [place] [address] May, [facility] [place] [facility] [address] [id number] [place] [address] May, [facility] [place] [facility] [address] [id number] [place] [address] May, [facility] [place] [facility] [address] [id number] [place] [address] May, [facility] [place] [facility] [address] [id number] [place] [address] May, [facility] [place] [facility] [address] [id number] [place] [address] Feb, [facility] [place] [facility] [address] [id number] [place] [address] Feb, [facility] [place] [facility] [address] [id number] [place] [address] Feb, [facility] [place] [facility] [address] [id number], [place] [address] Feb, [facility] [place] [facility] [address] [id number], [place] [address] Jan, [facility] [place] [facility] [address] [id number] [place] [address] Jan, [facility] [place] [facility] [address] [id number] [place] [address] Jan, [facility] [place] [facility] [address] [id number] [place] [address] Dec, [facility] [place] [facility] [address] [id number] [place] [address] Nov, [facility] [address] [id number] [place] [address] Nov, [facility] [facility] [address] [id number] [place] [address] Nov, [facility] [address] [id number] [place] [address] Nov, [facility] [address] [id number] [place] [address] Nov, [facility] [address] [id number] [place] [address] Oct, [facility] [address] [id number] [place] [address] September, [facility] [address] [id number] [place] [address] September, [facility] [address] [id number] [place] [address] Aug, [facility] [address] [id number] [place] [address] Aug, [facility] [address] [id number] [place] [address] Jul, [facility] [address] [id number] [place] [address] Jul, [facility] [address] [id number] [place] [address] Jul, [facility] [address] [id number] [place] [address] Jul, [facility] [address] [id number] [place] [address] 18 Jun, 2012 [facility] [address] [id number] [place] [address] Jun, [facility] [address] [id number] [place] [address] Jun, [facility] [place] [facility] [address] [id number] [place] [address] May, [facility] [place] [facility] [address] [id number] [place] [address] May, [facility] [place] [facility] [address] [id number] [place] [address] May, [facility] [place] [facility] [address] [id number] [place] [address] May, [facility] [place] [facility] [address] [id number] [place] [address] Apr, [facility] [place] [facility] [address] [id number] [place] [address] Apr, [facility] [place] [facility] [address] [id number] [place] [address] Apr, [facility] [place] [facility] [address] [id number] [place] [address] Apr, [facility] [place] [facility] [address] [id number] [place] [address] Apr, [facility] [place] [facility] [address] [id number], [place] [address] Apr, [facility] [place] [facility] [address] [id number], [place] [address] Mar, [facility] [place] [facility] [address] [id number] [place] [address] Mar, [facility] [place] [facility] [address] [id number], [place] [address] Mar, [facility] [place] [facility] [address] [id number] [place] [address] Mar, [facility] [place] [facility] [address] [id number] [place] [address] Mar, [facility] [place] [facility] [address] [id number] [place] [address] Mar, [facility] [place] [facility] [address] [id number] [place] [address] Feb, [facility] [place] [facility] [address] [id number] [place] [address] Feb, [facility] [place] [facility] [address] [id number] [place] [address] Feb, [facility] [place] [facility] [address] [id number] [place] [address] Feb, [facility] [place] [facility] [address] [id number] [place] [address] Jan, [facility] [place] [facility] [address] [id number] [place] [address] Jan, [facility] [place] [facility] [address] [id number] [place] [address] 24 Jan, 2012 [facility] [place] [facility] [address] [id number] [place] [address] 10 Jan, 2012 [facility] [place] [facility] [address] [facility] [id number] [place] [address] Dec, [facility] [place] [facility] [address] [id number] [place] [address] Dec, [facility] [place] [facility] [address] [id number] [place] [address] Nov, [facility] [place] [facility] [address] [id number] [place] [address] Oct, [facility] [place] [facility] [address] [facility] [id number] [place] [address] Oct, [facility] [place] [facility] [address] [facility] [id number], [place] [address] Oct, [facility] [place] [facility] [address] [id number] [place] [address] September, [facility] [address] [id number] [place] [address] September, [facility] [place] [facility] [address] [id number] [place] [address] September, [facility] [address] [id number] [place] [address] September, [facility] [address] [id number] [place] [address] September, [facility] [place] [facility] [address] [id number] [place] [address] September, [facility] [address] [id number] [place] [address] September, [facility] [address] [id number] [place] [address] Jul, [facility] [place] [facility] [address] [id number] [place] [address] Jul, [facility] [place] [facility] [address] [id number] [place] [address] Jun, [facility] [place] [facility] [address] [id number] [place] [address] Jun, [facility] [place] [facility] [address] [id number] [place] [address] Jun, [facility] [place] [facility] [address] [id number] [place] [address] May, [facility] [place] [facility] [address] [id number] [place] [address] Mar, [facility] [place] [facility] [address] [id number] [place] [address] Mar, [facility] [place] [facility] [address] [id number], [place] [address] Mar, [facility] [id number] [address] Feb, [facility] [id number], [place] [address] Feb, [facility] [id number], [place] [address] Dec, [facility] [id number] [place] [address] May, [facility] [id number] [place] [address] Apr, [facility] [id number] [place] [address] Apr, [facility] [id number] [place] [address] Apr, [facility] [id number], [place] [address] Apr, [facility] [address], [place] [address] Feb, 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 PLAN OF CARE VITAL SIGNS Height 62 in 2017-11-06 Weight 125.9 lbs 2017-11-06 Temperature 98.1 degrees Fahrenheit 2017-11-06 Heart Rate 60 bpm 2017-11-06 Respiratory Rate 18 2017-11-06 BMI 23.02 kg/m2 2017-11-06 Blood pressure systolic 110 mmHg 2017-11-06 Blood pressure diastolic 64 mmHg 2017-11-06 MEDICATIONS Medication Instructions Dosage Frequency Start Date End Date Duration Status Peter-Con M20 20 meq Orally Once a day 1 tablet with food 24h 30 Active Amlodipine Besylate 10 MG Orally Once a day 1 tablet 24h 90 days Active Lexapro 10 mg Orally Once a day 1 tablet 24h Nov, 30 day(s) Active Pepcid 20 MG Orally Once a day 1 tablet at bedtime 24h Active Metoprolol Succinate ER 50MG Orally Once a day 1 tablet 24h 90 days Active Vitamin D 2000 UNIT Orally Once a day 1 capsule 24h Active Simvastatin 20MG TAKE 2 TABLETS ONCE DAILY Active Cyanocobalamin 1000 MCG/ML Orally once monthly as directed Jul, Active Montelukast Sodium 10 mg Orally Once a day 1 tablet in the evening 24h Active Folic Acid 1 MG Orally Once a day 1 tablet 24h Active Stool Softener 100 MG Orally Once a day 1 capsule as needed 24h Active Warfarin Sodium 1 MG Orally Once a day 1 tablet 24h 30 Active Valium 2 MG Orally Once a day 1 tablet as needed 24h Oct, Active Zofran ODT 4 MG Orally 3 times a day 1 tablet 8h Aug, Not-Taking Lisinopril 10 mg Orally Once a day 1 tablet 24h Active Flonase 50 MCG/ACT Nasally Once a day 1 spray in each nostril 24h Active Clopidogrel Bisulfate 75 MG Orally Once a day 1 tablet 24h Active RESULTS No Results PROCEDURES Procedure Date Ordered Result Body Site [facility] VISIT ESTABLISHED PATIENT November 06, 2017 INSTRUCTIONS MEDICATIONS ADMINISTERED No Known [...]
--- OUTSIDE RECORDS SUMMARY | 2018-12-05 11:53 | XMS REPORT ---
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 Food Mixer Repairer Name Role Phone ERIK SAMAYOA Unavailable PROBLEMS Type Condition ICD9-CM Code RVC31-SK Code Onset Dates Condition Status SNOMED Code Problem Mood disorder F39 Active 92089641 Problem PVD (peripheral vascular disease) I73.9 Active 355713446 Problem Amput leg, unil NOS-comp S88.919A Active 91521740 Problem Acute cystitis with hematuria N30.01 Active 33758377 Problem Major depressive disorder, single episode, unspecified F32.9 Active 11875778 Problem Anticoagulant long-term use Z79.01 Active 937507097 Problem Vitamin B12 deficiency E53.8 Dec, Active 786812721 Problem Chronic obstructive pulmonary disease, unspecified COPD type J44.9 Active 09845885 Problem Congestive heart failure, unspecified congestive heart failure chronicity, unspecified congestive heart failure type I50.9 Active 12875185 Problem Chronic fatigue, unspecified R53.82 Active 205693812 Problem Peripheral vascular disease I73.9 Active 617759811 Problem Chronic fatigue R53.82 Active 44576246 ALLERGIES No Information ENCOUNTERS Encounter Location Date Diagnosis [facility] [id number], [place] [address] Dec, Anticoagulant long-term use Z79.01 [facility] [id number], [place] [address] Dec, Vitamin B12 deficiency E53.8 [facility] [id number], [place] [address] Dec, Major depressive disorder, single episode, unspecified F32.9 [facility] [id number], [place] [address] Nov, Vitamin B 12 deficiency E53.8 [facility] [address], [place] [address] Nov, Anticoagulant long-term use Z79.01 ; Mood disorder F39 ; Chronic obstructive pulmonary disease, unspecified COPD type J44.9 ; Peripheral vascular disease I73.9 and Chronic fatigue R53.82 [facility] [id number] [place] [address] Nov, Mood disorder F39 [facility] [id number] [place] [address] Nov, [facility] [id number] [place] [address] Oct, Mood disorder F39 ; Chronic obstructive pulmonary disease, unspecified COPD type J44.9 ; Peripheral vascular disease I73.9 and Chronic fatigue R53.82 [facility] [id number] [place] [address] September, Anticoagulant long-term use Z79.01 and Congestive heart failure, unspecified congestive heart failure chronicity, unspecified congestive heart failure type I50.9 [facility] [id number] [place] [address] September, Vitamin B12 deficiency E53.8 [facility] [facility] [address], [place] [address] September, Anticoagulant long-term use Z79.01 [facility] [id number] [place] [address] September, Anticoagulant long-term use Z79.01 and Congestive heart failure, unspecified congestive heart failure chronicity, unspecified congestive heart failure type I50.9 [facility] [address] [place] [address] Aug, Chronic fatigue, unspecified R53.82 [facility] [facility] [address] [place] [address] Aug, Anticoagulant long-term use Z79.01 [facility] [id number] [place] [address] Aug, Nausea R11.0 and Weakness R53.1 [facility] [id number] [place] [address] Aug, [facility] [address] [address] Aug, Hematuria R31.9 and Acute cystitis with hematuria N30.01 [facility] [facility] [id number] [place] [address] Aug, [facility] [facility] [address] [address] Jul, Vitamin B 12 deficiency E53.8 [facility] [address] [address] Jul, Anticoagulant long-term use Z79.01 [facility] [id number] [place] [address] Jun, Chronic fatigue, unspecified R53.82 [facility] [facility] [address] [address] Jun, Anticoagulant long-term use Z79.01 [facility] [facility] [id number] [place] [address] May, Flu-like symptoms R68.89 and Influenza A J10.1 [facility] [facility] [id number] [place] [address] May, [facility] [facility] [address] [address] May, Chronic fatigue, unspecified R53.82 [facility] [facility] [id number] [place] [address] May, Anticoagulant long-term use Z79.01 [place] [address] [address] Apr, Medicare welcome exam Z00.00 ; Anticoagulant long-term use Z79.01 ; Medicare annual wellness visit, initial Z00.00 ; Medicare annual wellness visit, subsequent Z00.00 and Chronic fatigue, unspecified R53.82 [facility] [address], [place] [address] Mar, Chronic fatigue, unspecified R53.82 [facility] [id number] [place] [address] Mar, Anticoagulant long-term use Z79.01 [facility] [facility] [id number] [place] [address] Mar, Anticoagulant long-term use Z79.01 and Hematuria R31.9 [facility] [id number] [place] [address] Mar, Hematuria R31.9 [facility] [id number] [place] [address] Feb, Anticoagulant long-term use Z79.01 [facility] [facility] [id number] [place] [address] Feb, Anticoagulant long-term use Z79.01 [facility] [address] [place] [address] Feb, Anticoagulant long-term use Z79.01 [facility] [id number] [place] [address] Feb, Chronic fatigue, unspecified R53.82 [facility] [address] [place] [address] Feb, Anticoagulant long-term use Z79.01 [facility] [address] [place] [address] Feb, Congestive heart failure, unspecified congestive heart failure chronicity, unspecified congestive heart failure type I50.9 [facility] [address] [address] Feb, Congestive heart failure, unspecified congestive heart failure chronicity, unspecified congestive heart failure type I50.9 [facility] [id number] [place] [address] Feb, [facility] [id number] [place] [address] Jan, Anticoagulant long-term use Z79.01 [facility] [id number] [place] [address] Jan, [place] [facility] [id number] [place] [address] Jan, Anticoagulant long-term use Z79.01 and Hematuria R31.9 [facility] [facility] [id number] [place] [address] Jan, Anticoagulant long-term use Z79.01 [facility] [facility] [id number] [place] [address] Jan, Chronic fatigue, unspecified R53.82 [facility] [facility] [id number] [place] [address] Jan, Anticoagulant long-term use Z79.01 [place] [address], [place] [address] Dec, Chronic fatigue, unspecified R53.82 [place] [address] [place] [address] Dec, [facility] [facility] [id number] [place] [address] Dec, Chronic fatigue, unspecified R53.82 and Encounter for therapeutic drug level monitoring Z51.81 [facility] [facility] [address] [place] [address] Nov, Encounter for therapeutic drug level monitoring Z51.81 [facility] [id number] [place] [address] Nov, Hematuria R31.9 [facility] [id number] [place] [address] Nov, Hematuria R31.9 ; Anticoagulant long-term use Z79.01 and PVD (peripheral vascular disease) I73.9 [facility] [address] [place] [address] Nov, Anticoagulant long-term use Z79.01 [facility] [id number] [place] [address] Nov, Anticoagulant long-term use Z79.01 [facility] [id number] [place] [address] Nov, [facility] [id number] [place] [address] Nov, Hematuria R31.9 and Acute cystitis with hematuria N30.01 [facility] [place] [id number] [place] [id number] Oct, [facility] [id number] [place] [address] Oct, [facility] [address] [place] [address] Oct, Hematuria R31.9 [facility] [address] [place] [address] Oct, Hematuria R31.9 [facility] [address] [place] [address] Oct, Anticoagulant long-term use Z79.01 [facility] [address] [place] [address] Oct, Anticoagulant long-term use Z79.01 [facility] [address] [place] [address] Oct, [facility] [id number] [place] [address] September, PVD (peripheral vascular disease) I73.9 ; Amput leg, unil NOS-comp S88.919A ; Acute cystitis without hematuria N30.00 ; Anticoagulant long-term use Z79.01 and Hypokalemia E87.6 [place] [id number] [place] [address] Aug, Anticoagulant long-term use Z79.01 and Bronchitis J40 [place] [address] [address] Jul, [place] [address] [address] Jul, Anticoagulant long-term use Z79.01 and Mood disorder F39 [place] [id number] [place] [address] Jul, [place] [address] [address] May, [place] [address] [address] May, Hypokalemia E87.6 [facility] [facility] [id number] [place] [address] May, Mood disorder F39 [place] [address] [address] May, Anticoagulant long-term use Z79.01 [place] [id number] [place] [address] Apr, Anticoagulant long-term use Z79.01 [place] [address] [address] Apr, Anticoagulant long-term use Z79.01 [place] [id number] [place] [address] Apr, [place] [address] [place] [address] Apr, Anticoagulant long-term use Z79.01 [facility] [id number] [place] [address] Apr, Anticoagulant long-term use Z79.01 [facility] [id number] [place] [address] Apr, Anticoagulant long-term use Z79.01 [facility] [id number] [place] [address] Mar, [facility] [address] [address] Mar, [facility] [id number] [place] [address] Mar, Anticoagulant long-term use Z79.01 [facility] [id number] [place] [address] Feb, [facility] [id number] [place] [address] Feb, [facility] [id number] [place] [address] Feb, Anticoagulant long-term use Z79.01 [facility] [id number] [place] [address] Feb, Anticoagulant long-term use Z79.01 [facility] [id number] [place] [address] Jan, [facility] [id number] [place] [address] Jan, Anticoagulant long-term use Z79.01 [facility] [id number] [place] [address] Jan, Anticoagulant long-term use Z79.01 [facility] [id number] [place] [address] Dec, Anticoagulant long-term use Z79.01 [facility] [id number] [place] [address] Dec, Anticoagulant long-term use Z79.01 [facility] [id number] [place] [address] Dec, Anticoagulant long-term use Z79.01 and Mood disorder F39 [facility] [address] [address] Dec, [facility] [address] [address] Nov, [facility] [address] [address] Nov, Anticoagulant long-term use Z79.01 [place] [address] [address] Nov, Anticoagulant long-term use Z79.01 [facility] [id number] [place] [address] September, Anticoagulant long-term use Z79.01 [facility] [id number] [place] [address] Jul, Anticoagulant long-term use Z79.01 [facility] [id number] [place] [address] May, Anticoagulant long-term use Z79.01 [facility] [facility] [id number] [place] [address] May, Anticoagulant long-term use Z79.01 [place] [address] [address] May, Anticoagulant long-term use Z79.01 [facility] [id number] [place] [address] May, Anticoagulant long-term use Z79.01 [facility] [id number] [place] [address] May, [facility] [id number] [place] [address] May, Congestive heart failure, unspecified congestive heart failure chronicity, unspecified congestive heart failure type I50.9 and Pulmonary congestion R09.89 [facility] [address] [address] Apr, Cough R05 ; Congestive heart failure, unspecified congestive heart failure chronicity, unspecified congestive heart failure type I50.9 and Pulmonary congestion R09.89 [facility] [address] [address] Mar, Hematuria R31.9 [facility] [address] [address] Mar, [place] [address] [address] Mar, Anticoagulant long-term use Z79.01 [place] [address] [address] Mar, [facility] [facility] [id number] [place] [address] Mar, Hematuria R31.9 and Infective urethritis N34.2 [place] [id number] [place] [address] Mar, Anticoagulant long-term use Z79.01 [place] [id number] [place] [address] Mar, Anticoagulant long-term use Z79.01 [place] [id number] [place] [address] Mar, [facility] [id number] [place] [address] Mar, Anticoagulant long-term use Z79.01 [facility] [id number], [place] [address] Feb, Peristomal skin breakdown L98.499 [facility] [address], [place] [address] Feb, [facility] [address], [place] [address] Feb, UTI (urinary tract infection) N39.0 [facility] [address] [place] [address] Jan, [place] [address] [place] [address] Dec, High risk medication use V58.69 [place] [address], [place] [address] Nov, High risk medication use V58.69 [facility] [address], [place] [address] Nov, [facility] [id number], [place] [address] Nov, UTI (lower urinary tract infection) 599.0 ; URI, acute 465.9 ; Insomnia 780.52 ; Anxiety 300.00 and Lower limb amputation, unspecified level V49.70 [place] [facility] [id number], [place] [address] Oct, UTI (lower urinary tract infection) 599.0 ; URI, acute 465.9 ; Insomnia 780.52 ; Anxiety 300.00 and Lower limb amputation, unspecified level V49.70 [facility] [address], [place] [address] Aug, [facility] [id number], [place] [address] Aug, [facility] [address], [place] [address] Jul, [facility] [place] [facility] [address] [id number] [place] [address] Jul, 2014 [facility] [place] [facility] [address] [id number] [place] [address] Jun, [facility] [place] [facility] [address] [id number] [place] [address] Jun, [facility] [place] [facility] [address] [id number] [place] [address] Mar, [facility] [place] [facility] [address] [id number] [place] [address] Mar, [facility] [place] [facility] [address] [id number] [place] [address] Mar, [facility] [place] [facility] [address] [id number] [place] [address] Mar, [facility] [place] [facility] [address] [id number], [place] [address] Mar, [facility] [place] [facility] [address] [id number] [place] [address] Feb, [facility] [place] [facility] [address] [id number], [place] [address] Feb, [facility] [place] [facility] [address] [id number], [place] [address] 29 Feb, 2014 [facility] [place] [facility] [address] [id number], [place] [address] Feb, [facility] [place] [facility] [address] [id number], [place] [address] Feb, [facility] [place] [facility] [address] [id number], [place] [address] Feb, [facility] [place] [facility] [address] [id number], [place] [address] Feb, [facility] [place] [facility] [address] [id number] [place] [address] Feb, 2013 [facility] [place] [facility] [address] [id number] [place] [address] Feb, [facility] [place] [facility] [address] [id number] [place] [address] Feb, [facility] [place] [facility] [address] [id number] [place] [address] Feb, [facility] [place] [facility] [address] [id number] [place] [address] Feb, [facility] [place] [facility] [address] [id number] [place] [address] Feb, [facility] [place] [facility] [address] [id number] [place] [address] Feb, [facility] [place] [facility] [address] [id number] [place] [address] Feb, [facility] [place] [facility] [address] [id number] [place] [address] Feb, [facility] [place] [facility] [address] [id number] [place] [address] Jan, [facility] [place] [facility] [address] [id number] [place] [address] Jan, [facility] [place] [facility] [address] [id number] [place] [address] Jan, 2013 [facility] [place] [facility] [address] [id number] [place] [address] Jan, 2013 [facility] [place] [facility] [address] [id number] [place] [address] Jan, [facility] [place] [facility] [address] [id number] [place] [address] Nov, [facility] [place] [facility] [address] [id number] [place] [address] Nov, [facility] [place] [facility] [address] [id number] [place] [address] Nov, [facility] [place] [facility] [address] [id number] [place] [address] Nov, [facility] [place] [facility] [address] [id number] [place] [address] Nov, [facility] [place] [facility] [address] [id number] [place] [address] Nov, [facility] [place] [facility] [address] [id number] [place] [address] Oct, [facility] [place] [facility] [address] [id number] [place] [address] Oct, [facility] [place] [facility] [address] [id number] [place] [address] Oct, [facility] [place] [facility] [address] [id number] [place] [address] Oct, [facility] [place] [facility] [address] [id number] [place] [address] Oct, [facility] [place] [facility] [address] [id number] [place] [address] Oct, [facility] [place] [facility] [address] [id number] [place] [address] Oct, [facility] [place] [facility] [address] [id number] [place] [address] September, [facility] [place] [facility] [address] [id number] [place] [address] September, [facility] [place] [facility] [address] [id number] [place] [address] September, [facility] [place] [facility] [address] [id number] [place] [address] September, [facility] [place] [facility] [address] [id number] [address] September, [facility] [place] [facility] [address] [id number] [place] [address] September, [facility] [place] [facility] [address] [id number] [place] [address] September, [facility] [place] [facility] [address] [id number] [place] [address] September, [facility] [place] [facility] [address] [id number] [place] [address] Aug, [facility] [place] [facility] [address] [id number] [place] [address] Aug, [facility] [place] [facility] [address] [id number] [place] [address] Aug, [facility] [place] [facility] [address] [id number] [place] [address] Aug, [facility] [place] [facility] [address] [id number], [place] [address] Jul, [facility] [place] [facility] [address] [id number] [place] [address] Jul, [facility] [place] [facility] [address] [id number] [place] [address] Jun, [facility] [place] [facility] [address] [id number] [place] [address] Jun, [facility] [place] [facility] [address] [id number] [place] [address] Jun, [facility] [place] [facility] [address] [id number] [place] [address] Jun, [facility] [place] [facility] [address] [id number] [place] [address] Jun, [facility] [place] [facility] [address] [id number] [place] [address] Jun, [facility] [place] [facility] [address] [id number] [place] [address] May, [facility] [place] [facility] [address] [id number] [place] [address] May, [facility] [place] [facility] [address] [id number] [place] [address] May, [facility] [place] [facility] [address] [id number] [place] [address] May, [facility] [place] [facility] [address] [id number] [place] [address] May, [facility] [place] [facility] [address] [id number] [place] [address] May, [facility] [place] [facility] [address] [id number] [place] [address] Feb, [facility] [place] [facility] [address] [id number] [place] [address] Feb, [facility] [place] [facility] [address] [id number] [place] [address] Feb, [facility] [place] [facility] [address] [id number] [place] [address] Feb, [facility] [place] [facility] [address] [id number] [place] [address] Jan, [facility] [place] [facility] [address] [id number] [place] [address] Jan, [facility] [place] [facility] [address] [id number] [place] [address] Jan, [facility] [place] [facility] [address] [id number] [place] [address] Dec, [facility] [place] [facility] [address] [id number] [place] [address] Nov, [facility] [place] [facility] [address] [id number] [place] [address] Nov, [facility] [address] [id number] [place] [address] Nov, [facility] [place] [facility] [address] [id number] [place] [address] Nov, [facility] [place] [facility] [address] [id number] [place] [address] Nov, [facility] [place] [facility] [address] [id number] [place] [address] Oct, [facility] [place] [facility] [address] [id number] [place] [address] September, [facility] [place] [facility] [address] [id number] [place] [address] September, [facility] [place] [facility] [address] [id number] [place] [address] Aug, [facility] [place] [facility] [address] [id number] [place] [address] Aug, [facility] [place] [facility] [address] [id number] [place] [address] Jul, [facility] [place] [facility] [address] [id number] [place] [address] Jul, [facility] [place] [facility] [address] [id number] [place] [address] Jul, [facility] [place] [facility] [address] [id number] [place] [address] Jul, [facility] [place] [facility] [address] [id number] [place] [address] Jun, [facility] [place] [facility] [address] [id number] [place] [address] Jun, [facility] [place] [facility] [address] [id number] [place] [address] Jun, [facility] [place] [facility] [address] [id number] [place] [address] May, [facility] [address] [id number] [place] [address] May, [facility] [address] [id number] [place] [address] May, [facility] [address] [id number] [place] [address] May, [facility] [address] [id number] [place] [address] Apr, [facility] [address] [id number] [place] [address] Apr, [facility] [address] [id number] [place] [address] Apr, [facility] [address] [id number] [place] [address] Apr, [facility] [address] [id number] [place] [address] Apr, [facility] [address] [id number] [place] [address] Apr, [facility] [address] [id number] [place] [address] Mar, [facility] [address] [id number] [place] [address] Mar, [facility] [address] [id number] [place] [address] Mar, [facility] [address] [id number] [place] [address] Mar, [facility] [address] [id number] [place] [address] Mar, [facility] [address] [id number] [place] [address] Mar, [facility] [place] [facility] [address] [id number] [place] [address] Feb, [facility] [place] [facility] [address] [id number] [place] [address] Feb, [facility] [place] [facility] [address] [id number] [place] [address] Feb, [facility] [place] [facility] [address] [id number] [place] [address] Feb, [facility] [place] [facility] [address] [id number] [place] [address] Jan, [facility] [place] [facility] [address] [id number] [place] [address] Jan, [facility] [place] [facility] [address] [id number] [place] [address] 24 Jan, 2012 [facility] [place] [facility] [address] [id number] [place] [address] Jan, [facility] [place] [facility] [address] [id number] [place] [address] Dec, [facility] [place] [facility] [address] [id number], [place] [address] Dec, [facility] [place] [facility] [address] [id number], [place] [address] Nov, [facility] [place] [facility] [address] [id number], [place] [address] Oct, [facility] [place] [facility] [address] [id number] [place] [address] Oct, [facility] [place] [facility] [address] [id number], [place] [address] Oct, [facility] [place] [facility] [address] [facility] [id number], [place] [address] September, [facility] [place] [facility] [address] [id number], [place] [address] September, [facility] [address] [id number] [place] [address] September, [facility] [place] [facility] [address] [id number] [place] [address] September, [facility] [place] [facility] [address] [id number] [place] [address] September, [facility] [place] [facility] [address] [id number] [place] [address] September, [facility] [place] [facility] [address] [id number] [place] [address] September, [facility] [place] [facility] [address] [id number] [place] [address] Jul, [facility] [id number] [place] [address] Jul, [facility] [place] [facility] [address] [id number] [place] [address] Jun, [facility] [place] [facility] [id number] [place] [address] Jun, [facility] [place] [facility] [address] [id number] [place] [address] Jun, [facility] [place] [facility] [id number] [place] [address] May, [facility] [place] [facility] [address] [id number] [place] [address] Mar, [facility] [place] [facility] [address] [id number] [place] [address] Mar, [facility] [place] [facility] [address] [facility] [id number] [place] [address] 14 Mar, 2011 [facility] [place] [facility] [address] [id number] [place] [address] Feb, [facility] [address] [id number], [place] [address] 18 Feb, 2011 [facility] [id number], [place] [address] Dec, [facility] [id number], [place] [address] 15 May, 2009 [facility] [id number], [place] [address] Apr, [facility] [id number], [place] [address] Apr, [facility] [id number], [place] [address] Apr, [facility] [id number], [place] [address] Apr, [facility] [id number], [place] [address] Feb, [facility] [address] [id number], [place] [address] Oct, IMMUNIZATIONS No Known Immunizations SOCIAL HISTORY Never Assessed REASON FOR VISIT Medication refill request PLAN OF CARE VITAL SIGNS MEDICATIONS Unknown [...]
--- OUTSIDE RECORDS SUMMARY | 2018-12-05 11:53 | XMS REPORT ---
Author Author ERIK SAMAYOA Organization [facility] Address [address] [place] [address] Care Team Providers Care Security Sme Name Role Phone ERIK SAMAYOA Unavailable PROBLEMS Type Condition ICD9-CM Code HIN58-UA Code Onset Dates Condition Status SNOMED Code Problem Mood disorder F39 Active 36153867 Problem PVD (peripheral vascular disease) I73.9 Active 734701059 Problem Amput leg, unil NOS-comp S88.919A Active 39491756 Problem Acute cystitis with hematuria N30.01 Active 06053963 Problem Major depressive disorder, single episode, unspecified F32.9 Active 30555505 Problem Anticoagulant long-term use Z79.01 Active 429170909 Problem Vitamin B12 deficiency E53.8 Dec, Active 518657234 Problem Chronic obstructive pulmonary disease, unspecified COPD type J44.9 Active 18921689 Problem Congestive heart failure, unspecified congestive heart failure chronicity, unspecified congestive heart failure type I50.9 Active 39748666 Problem Chronic fatigue, unspecified R53.82 Active 852738752 Problem Peripheral vascular disease I73.9 Active 591561887 Problem Chronic fatigue R53.82 Active 34006345 ALLERGIES Substance Reaction Event Type Date Status Penicillin V Potassium Unknown Drug Allergy Oct, Active Morphine Sulfate Unknown Drug Allergy Oct, Active Codeine Sulfate Unknown Drug Allergy Oct, Active Aspir-81 Unknown Drug Allergy Oct, Active ENCOUNTERS Encounter Location Date Diagnosis [facility] [address] [facility] [id number] [address] Dec, Vitamin B12 deficiency E53.8 [facility] [address] [facility] [id number], [place] [address] Dec, Anticoagulant long-term use Z79.01 [facility] [address] [facility] [id number] [address] Dec, Major depressive disorder, single episode, unspecified F32.9 [place] [address] [address] Nov, Vitamin B 12 deficiency E53.8 [place] [address] [address] Nov, Anticoagulant long-term use Z79.01 ; Mood disorder F39 ; Chronic obstructive pulmonary disease, unspecified COPD type J44.9 ; Peripheral vascular disease I73.9 and Chronic fatigue R53.82 [place] [address] [place] [id number] [place] [address] Nov, Mood disorder F39 [place] [address] [address] [id number] [place] [address] Nov, [place] [address] [id number] [place] [address] Oct, Mood disorder F39 ; Chronic obstructive pulmonary disease, unspecified COPD type J44.9 ; Peripheral vascular disease I73.9 and Chronic fatigue R53.82 [place] [address] [place] [address] September, Anticoagulant long-term use Z79.01 and Congestive heart failure, unspecified congestive heart failure chronicity, unspecified congestive heart failure type I50.9 [place] [address], [place] [address] September, Vitamin B12 deficiency E53.8 [place] [address] [place] [address] September, Anticoagulant long-term use Z79.01 [place] [address] [place] [id number] [place] [address] September, Anticoagulant long-term use Z79.01 and Congestive heart failure, unspecified congestive heart failure chronicity, unspecified congestive heart failure type I50.9 [place] [address] [place] [address] Aug, Chronic fatigue, unspecified R53.82 [facility] [address] [address] Aug, Anticoagulant long-term use Z79.01 [facility] [address] [address] Aug, Nausea R11.0 and Weakness R53.1 [place] [address] [address] Aug, [facility] [address] [address] Aug, Hematuria R31.9 and Acute cystitis with hematuria N30.01 [place] [address] [address] Aug, [place] [address] [address] Jul, Vitamin B 12 deficiency E53.8 [place] [address] [address] Jul, Anticoagulant long-term use Z79.01 [place] [address] [address] Jun, Anticoagulant long-term use Z79.01 [place] [address] [address] Jun, Chronic fatigue, unspecified R53.82 [place] [address] [address] May, Flu-like symptoms R68.89 and Influenza A J10.1 [place] [address] [address] May, [place] [address] [address] May, Anticoagulant long-term use Z79.01 [place] [address] [place] [address] May, Chronic fatigue, unspecified R53.82 [place] [address] [place] [id number] [place] [address] Apr, Medicare welcome exam Z00.00 ; Anticoagulant long-term use Z79.01 ; Medicare annual wellness visit, initial Z00.00 ; Medicare annual wellness visit, subsequent Z00.00 and Chronic fatigue, unspecified R53.82 [place] [address] [place] [id number] [place] [address] 15 Mar, 2017 Chronic fatigue, unspecified R53.82 [place] [address] [place] [id number] [place] [address] Mar, Anticoagulant long-term use Z79.01 [place] [address] [place] [id number] [place] [address] Mar, Anticoagulant long-term use Z79.01 and Hematuria R31.9 [place] [address] [place] [id number] [place] [address] Mar, Hematuria R31.9 [place] [address] [place] [id number] [place] [address] Feb, Anticoagulant long-term use Z79.01 [place] [address] [place] [id number] [place] [address] Feb, Anticoagulant long-term use Z79.01 [place] [address] [place] [address] Feb, Anticoagulant long-term use Z79.01 [place] [address] [place] [id number] [place] [address] Feb, Chronic fatigue, unspecified R53.82 [place] [address] [place] [id number] [place] [address] Feb, Anticoagulant long-term use Z79.01 [place] [address] [place] [id number] [place] [address] Feb, Congestive heart failure, unspecified congestive heart failure chronicity, unspecified congestive heart failure type I50.9 [facility] [address], [place] [address] Feb, Congestive heart failure, unspecified congestive heart failure chronicity, unspecified congestive heart failure type I50.9 [place] [address] [place] [address] Feb, [facility] [address] [place] [address] Jan, Anticoagulant long-term use Z79.01 [place] [address] [place] [address] Jan, [place] [address] [place] [address] Jan, Anticoagulant long-term use Z79.01 and Hematuria R31.9 [place] [address] [place] [address] Jan, Anticoagulant long-term use Z79.01 [place] [address] [place] [address] Jan, Anticoagulant long-term use Z79.01 [place] [address] [address] Jan, Chronic fatigue, unspecified R53.82 [place] [address], [place] [address] Dec, Chronic fatigue, unspecified R53.82 [place] [address] [place] [address] Dec, [place] [address] [place] [address] Dec, Chronic fatigue, unspecified R53.82 and Encounter for therapeutic drug level monitoring Z51.81 [place] [address] [place] [id number] [place] [address] Nov, Encounter for therapeutic drug level monitoring Z51.81 [facility] [address] [address] Nov, Hematuria R31.9 [facility] [address] [place] [address] [id number] [place] [address] Nov, Hematuria R31.9 ; Anticoagulant long-term use Z79.01 and PVD (peripheral vascular disease) I73.9 [facility] [address] [place] [id number] [place] [address] Nov, Anticoagulant long-term use Z79.01 [facility] [address] [place] [id number] [place] [address] Nov, Anticoagulant long-term use Z79.01 [place] [address] [address] Nov, [facility] [address] [place] [id number] [place] [address] Nov, Hematuria R31.9 and Acute cystitis with hematuria N30.01 [facility] [place] [address] [place] [id number] [place] [id number] Oct, [facility] [address] [place] [id number] [place] [address] Oct, [facility] [address] [place] [address] [id number] [place] [address] Oct, Hematuria R31.9 [facility] [address] [place] [id number] [place] [address] Oct, Hematuria R31.9 [facility] [address] [place] [id number] [place] [address] Oct, Anticoagulant long-term use Z79.01 [facility] [address] [place] [id number] [place] [address] Oct, Anticoagulant long-term use Z79.01 [place] [address] [place] [id number] [place] [address] Oct, [place] [address] [address] September, PVD (peripheral vascular disease) I73.9 ; Amput leg, unil NOS-comp S88.919A ; Acute cystitis without hematuria N30.00 ; Anticoagulant long-term use Z79.01 and Hypokalemia E87.6 [place] [address] [address] Aug, Anticoagulant long-term use Z79.01 and Bronchitis J40 [place] [address] [address] Jul, [place] [address] [address] Jul, Anticoagulant long-term use Z79.01 and Mood disorder F39 [place] [address] [address] Jul, [place] [address] [address] May, [place] [address] [address] May, Hypokalemia E87.6 [place] [address] [address] May, Mood disorder F39 [place] [address] [address] May, Anticoagulant long-term use Z79.01 [place] [address] [address] Apr, Anticoagulant long-term use Z79.01 [place] [address] [address] Apr, Anticoagulant long-term use Z79.01 [facility] [id number] [place] [address] Apr, [facility] [address] [place] [id number] [place] [address] Apr, Anticoagulant long-term use Z79.01 [facility] [address] [place] [id number] [place] [address] Apr, Anticoagulant long-term use Z79.01 [facility] [address] [place] [id number] [place] [address] Apr, Anticoagulant long-term use Z79.01 [facility] [address] [place] [id number] [place] [address] Mar, [facility] [address] [place] [id number] [place] [address] Mar, [facility] [address] [place] [id number] [place] [address] Mar, Anticoagulant long-term use Z79.01 [facility] [address] [place] [id number] [place] [address] Feb, [facility] [id number] [place] [address] Feb, [facility] [address] [place] [id number] [place] [address] Feb, Anticoagulant long-term use Z79.01 [facility] [address] [place] [id number] [place] [address] 05 Feb, 2016 Anticoagulant long-term use Z79.01 [facility] [address] [place] [id number] [place] [address] Jan, [facility] [address] [place] [address] Jan, Anticoagulant long-term use Z79.01 [facility] [address] [place] [id number] [place] [address] Jan, Anticoagulant long-term use Z79.01 [facility] [address] [address] Dec, Anticoagulant long-term use Z79.01 [facility] [address] [address] Dec, Anticoagulant long-term use Z79.01 [facility] [address] [address] Dec, Anticoagulant long-term use Z79.01 and Mood disorder F39 [place] [address] [address] Dec, [facility] [address] [address] Nov, [facility] [address] [address] Nov, Anticoagulant long-term use Z79.01 [facility] [address] [place] [id number] [place] [address] Nov, Anticoagulant long-term use Z79.01 [place] [address] [place] [id number] [place] [address] September, Anticoagulant long-term use Z79.01 [place] [address] [place] [id number] [place] [address] Jul, Anticoagulant long-term use Z79.01 [place] [address] [place] [id number] [place] [address] May, Anticoagulant long-term use Z79.01 [facility] [address] [place] [id number] [place] [address] May, Anticoagulant long-term use Z79.01 [facility] [address] [address] May, Anticoagulant long-term use Z79.01 [facility] [address] [place] [id number] [place] [address] May, Anticoagulant long-term use Z79.01 [facility] [address] [id number] [place] [address] May, [facility] [address] [address] May, Congestive heart failure, unspecified congestive heart failure chronicity, unspecified congestive heart failure type I50.9 and Pulmonary congestion R09.89 [place] [address] [address] Apr, Cough R05 ; Congestive heart failure, unspecified congestive heart failure chronicity, unspecified congestive heart failure type I50.9 and Pulmonary congestion R09.89 [place] [address] [address] Mar, Hematuria R31.9 [place] [address] [address] Mar, [place] [address] [address] Mar, Anticoagulant long-term use Z79.01 [place] [address] [place] [id number] [place] [address] Mar, [place] [address] [address] Mar, Hematuria R31.9 and Infective urethritis N34.2 [place] [address] [address] Mar, Anticoagulant long-term use Z79.01 [place] [address] [place] [id number] [place] [address] Mar, Anticoagulant long-term use Z79.01 [place] [address] [address] Mar, [facility] [id number], [place] [address] Mar, Anticoagulant long-term use Z79.01 [facility] [address], [place] [address] Feb, Peristomal skin breakdown L98.499 [facility] [id number], [place] [address] Feb, [facility] [address] [facility] [id number] [address] Feb, UTI (urinary tract infection) N39.0 [place] [id number] [place] [address] Jan, [facility] [address], [place] [address] Dec, High risk medication use V58.69 [facility] [address], [place] [address] Nov, High risk medication use V58.69 [facility] [address], [place] [address] Nov, [facility] [address] [place] [address] [id number] [address] Nov, UTI (lower urinary tract infection) 599.0 ; URI, acute 465.9 ; Insomnia 780.52 ; Anxiety 300.00 and Lower limb amputation, unspecified level V49.70 [facility] [id number] [address] Oct, UTI (lower urinary tract infection) 599.0 ; URI, acute 465.9 ; Insomnia 780.52 ; Anxiety 300.00 and Lower limb amputation, unspecified level V49.70 [facility] [address] [place] [address] [id number] [address] Aug, [facility] [address] [place] [address] Aug, 2014 [facility] [place] [facility] [address] [id number] [place] [address] Jul, 2014 [facility] [place] [facility] [address] [id number] [place] [address] Jul, 2014 [facility] [place] [facility] [address] [id number] [place] [address] Jun, 2014 [facility] [place] [facility] [address] [id number] [place] [address] Jun, 2014 [facility] [place] [facility] [address] [id number] [place] [address] Mar, [facility] [place] [facility] [address] [id number] [place] [address] Mar, [facility] [place] [facility] [address] [facility] [id number] [place] [address] Mar, [facility] [place] [facility] [address] [id number] [place] [address] Mar, [facility] [place] [facility] [address] [facility] [id number] [place] [address] Mar, [facility] [place] [facility] [address] [facility] [id number] [place] [address] Feb, [facility] [place] [facility] [address] [id number] [place] [address] 30 Feb, 2014 [facility] [place] [facility] [address] [id number] [place] [address] 29 Feb, 2014 [facility] [place] [facility] [address] [id number] [place] [address] Feb, [facility] [place] [facility] [address] [id number] [place] [address] Feb, [facility] [place] [facility] [address] [id number] [place] [address] 16 Feb, 2014 [facility] [place] [facility] [address] [id number] [place] [address] 16 Feb, 2013 [facility] [place] [facility] [address] [id number] [place] [address] Feb, [facility] [place] [facility] [address] [id number] [place] [address] Feb, [facility] [place] [facility] [address] [id number] [place] [address] Feb, [facility] [place] [facility] [address] [id number] [place] [address] Feb, [facility] [place] [facility] [address] [id number] [place] [address] Feb, [facility] [place] [facility] [address] [id number] [place] [address] Feb, [facility] [place] [facility] [address] [id number] [place] [address] Feb, [facility] [place] [facility] [address] [id number] [place] [address] Feb, [facility] [place] [facility] [address] [id number] [place] [address] Feb, [facility] [place] [facility] [address] [id number] [place] [address] 28 Jan, 2013 [facility] [place] [facility] [address] [id number], [place] [address] 26 Jan, 2013 [facility] [place] [facility] [address] [id number] [place] [address] 26 Jan, 2013 [facility] [place] [facility] [address] [id number] [place] [address] 04 Jan, 2013 [facility] [place] [facility] [address] [id number], [place] [address] 04 Jan, 2013 [facility] [place] [facility] [address] [id number], [place] [address] Nov, [facility] [place] [facility] [address] [id number] [place] [address] Nov, [facility] [place] [facility] [address] [id number] [place] [address] Nov, [facility] [place] [facility] [address] [id number] [place] [address] Nov, [facility] [place] [facility] [address] [id number] [place] [address] Nov, [facility] [place] [facility] [address] [id number] [place] [address] Nov, [facility] [place] [facility] [address] [id number] [place] [address] Oct, [facility] [place] [facility] [address] [id number] [place] [address] Oct, [facility] [place] [facility] [address] [id number] [place] [address] Oct, [facility] [place] [facility] [address] [id number] [place] [address] Oct, [facility] [place] [facility] [address] [id number] [place] [address] Oct, [facility] [place] [facility] [address] [id number] [place] [address] Oct, [facility] [place] [facility] [address] [id number] [place] [address] Oct, [facility] [place] [facility] [address] [id number] [place] [address] September, [facility] [place] [facility] [address] [id number] [place] [address] September, [facility] [place] [facility] [address] [id number] [place] [address] September, [facility] [place] [facility] [address] [id number] [place] [address] September, [facility] [place] [facility] [address] [id number] [place] [address] September, [facility] [place] [facility] [address] [id number] [place] [address] September, [facility] [place] [facility] [address] [id number] [place] [address] September, [facility] [place] [facility] [address] [id number] [place] [address] September, [facility] [place] [facility] [address] [id number] [place] [address] Aug, [facility] [place] [facility] [address] [id number] [place] [address] Aug, [facility] [place] [facility] [address] [id number] [place] [address] Aug, [facility] [place] [facility] [address] [id number] [place] [address] Aug, [facility] [place] [facility] [address] [id number] [place] [address] Jul, [facility] [place] [facility] [address] [id number] [place] [address] Jul, [facility] [place] [facility] [address] [id number] [place] [address] Jun, [facility] [place] [facility] [address] [id number] [place] [address] Jun, [facility] [place] [facility] [address] [id number] [place] [address] Jun, [facility] [place] [facility] [address] [id number] [place] [address] Jun, [facility] [place] [facility] [address] [id number] [place] [address] 14 Jun, 2013 [facility] [place] [facility] [address] [id number] [place] [address] Jun, [facility] [place] [facility] [address] [id number] [place] [address] May, [facility] [place] [facility] [address] [id number] [place] [address] May, [facility] [place] [facility] [address] [id number] [place] [address] May, [facility] [place] [facility] [address] [id number] [place] [address] May, [facility] [place] [facility] [address] [id number] [place] [address] May, [facility] [place] [facility] [address] [id number] [place] [address] May, [facility] [place] [facility] [address] [id number] [place] [address] Feb, [facility] [place] [facility] [address] [id number] [place] [address] Feb, [facility] [place] [facility] [address] [id number] [place] [address] Feb, [facility] [place] [facility] [address] [id number], [place] [address] Feb, [facility] [place] [facility] [address] [id number], [place] [address] Jan, [facility] [place] [facility] [address] [id number] [place] [address] Jan, [facility] [place] [facility] [address] [id number] [place] [address] Jan, [facility] [place] [facility] [address] [id number] [place] [address] Dec, [facility] [place] [facility] [address] [id number] [place] [address] Nov, [facility] [address] [id number] [place] [address] Nov, [facility] [address] [id number] [place] [address] Nov, [facility] [address] [id number] [place] [address] Nov, [facility] [address] [id number] [place] [address] Nov, [facility] [address] [id number] [place] [address] Oct, [facility] [address] [id number] [place] [address] September, [facility] [address] [id number] [place] [address] September, [facility] [address] [id number] [place] [address] Aug, [facility] [address] [id number] [place] [address] Aug, [facility] [address] [id number] [place] [address] Jul, [facility] [address] [id number] [place] [address] Jul, [facility] [address] [id number] [place] [address] Jul, [facility] [address] [id number] [place] [address] Jul, [facility] [address] [id number] [place] [address] 18 Jun, 2012 [facility] [address] [id number] [place] [address] Jun, [facility] [address] [id number] [place] [address] Jun, [facility] [place] [facility] [address] [id number] [place] [address] May, [facility] [place] [facility] [address] [id number] [place] [address] May, [facility] [place] [facility] [address] [id number] [place] [address] May, [facility] [place] [facility] [address] [id number] [place] [address] May, [facility] [place] [facility] [address] [id number] [place] [address] Apr, [facility] [place] [facility] [address] [id number] [place] [address] Apr, [facility] [place] [facility] [address] [id number] [place] [address] Apr, [facility] [place] [facility] [address] [id number] [place] [address] Apr, [facility] [place] [facility] [address] [id number] [place] [address] Apr, [facility] [place] [facility] [address] [id number], [place] [address] Apr, [facility] [place] [facility] [address] [id number], [place] [address] Mar, [facility] [place] [facility] [address] [id number] [place] [address] Mar, [facility] [place] [facility] [address] [id number], [place] [address] Mar, [facility] [place] [facility] [address] [id number] [place] [address] Mar, [facility] [place] [facility] [address] [id number] [place] [address] Mar, [facility] [place] [facility] [address] [id number] [place] [address] Mar, [facility] [place] [facility] [address] [id number] [place] [address] Feb, [facility] [place] [facility] [address] [id number] [place] [address] Feb, [facility] [place] [facility] [address] [id number] [place] [address] Feb, [facility] [place] [facility] [address] [id number] [place] [address] Feb, [facility] [place] [facility] [address] [id number] [place] [address] Jan, [facility] [place] [facility] [address] [id number] [place] [address] Jan, [facility] [place] [facility] [address] [id number] [place] [address] 24 Jan, 2012 [facility] [place] [facility] [address] [id number] [place] [address] 10 Jan, 2012 [facility] [place] [facility] [address] [facility] [id number] [place] [address] Dec, [facility] [place] [facility] [address] [id number] [place] [address] Dec, [facility] [place] [facility] [address] [id number] [place] [address] Nov, [facility] [place] [facility] [address] [id number] [place] [address] Oct, [facility] [place] [facility] [address] [facility] [id number] [place] [address] Oct, [facility] [place] [facility] [address] [facility] [id number], [place] [address] Oct, [facility] [place] [facility] [address] [id number] [place] [address] September, [facility] [address] [id number] [place] [address] September, [facility] [place] [facility] [address] [id number] [place] [address] September, [facility] [address] [id number] [place] [address] September, [facility] [address] [id number] [place] [address] September, [facility] [place] [facility] [address] [id number] [place] [address] September, [facility] [address] [id number] [place] [address] September, [facility] [address] [id number] [place] [address] Jul, [facility] [place] [facility] [address] [id number] [place] [address] Jul, [facility] [place] [facility] [address] [id number] [place] [address] Jun, [facility] [place] [facility] [address] [id number] [place] [address] Jun, [facility] [place] [facility] [address] [id number] [place] [address] Jun, [facility] [place] [facility] [address] [id number] [place] [address] May, [facility] [place] [facility] [address] [id number] [place] [address] Mar, [facility] [place] [facility] [address] [id number] [place] [address] Mar, [facility] [place] [facility] [address] [id number], [place] [address] 14 Mar, 2011 [facility] [id number], [place] [address] 31 Feb, 2011 [facility] [id number] [place] [address] Feb, [facility] [id number] [place] [address] Dec, [facility] [id number] [place] [address] May, [facility] [id number] [place] [address] Apr, [facility] [id number] [place] [address] Apr, [facility] [id number] [place] [address] Apr, [facility] [id number] [place] [address] Apr, [facility] [id number] [place] [address] Feb, [facility] [id number], [place] [address] Oct, IMMUNIZATIONS Vaccine Route Administration Date Status B12, VITAMIN (UP TO 1000 MCG) IM Intramuscular October 26, 2017 Administered SOCIAL HISTORY Never Assessed REASON FOR VISIT Depression WB-MA, Medication follow up PLAN OF CARE VITAL SIGNS Height 62 in 2017-10-26 Weight 127 lbs 2017-10-26 Temperature 97.4 degrees Fahrenheit 2017-10-26 Heart Rate 46 bpm 2017-10-26 Respiratory Rate 18 2017-10-26 BMI 23.23 kg/m2 2017-10-26 Blood pressure systolic 106 mmHg 2017-10-26 Blood pressure diastolic 58 mmHg 2017-10-26 MEDICATIONS Medication Instructions Dosage Frequency Start Date End Date Duration Status Folic Acid 1 MG Orally Once a day 1 tablet 24h Active Klor-Con M20 20 meq Orally Once a day 1 tablet with food 24h 30 Active Zofran ODT 4 MG Orally 3 times a day 1 tablet 8h 09 Aug, 2017 Active Cyanocobalamin 1000 MCG/ML Orally once monthly as directed Jul, Active Clopidogrel Bisulfate 75 MG Orally Once a day 1 tablet 24h Active Warfarin Sodium 1 MG Orally Once a day 1 tablet 24h 30 Active Amlodipine Besylate 10 MG Orally Once a day 1 tablet 24h 90 days Active Metoprolol Succinate ER 50MG Orally Once a day 1 tablet 24h 90 days Active Lisinopril 10 mg Orally Once a day 1 tablet 24h Active Simvastatin 20 mg Orally Once a day 2 tablets 24h Active Montelukast Sodium 10 mg Orally Once a day 1 tablet in the evening 24h Active RESULTS No Results PROCEDURES Procedure Date Ordered Result Body Site [facility] VISIT ESTABLISHED PATIENT October 26, 2017 VENIPUNCT, ROUTINE* October 26, 2017 THER/PROPH/DIAG INJ, SC/IM October 26, 2017 B12, VITAMIN (UP TO 1000 MCG) October 26, 2017 PROTHROMBIN TIME October 26, 2017 LAB NOT BILLED BY [facility] October 26, 2017 INSTRUCTIONS MEDICATIONS ADMINISTERED No Known Medications [...]
--- OUTSIDE RECORDS SUMMARY | 2018-12-05 11:54 | XMS REPORT ---
Author Author ERIK SAMAYOA [facility] Address [address] [place] [address] Care Team Providers Care It Service Technician Name Role Phone ERIK SAMAYOA Unavailable PROBLEMS Type Condition ICD9-CM Code WQJ38-GM Code Onset Dates Condition Status SNOMED Code Problem Mood disorder F39 Active 41003650 Problem PVD (peripheral vascular disease) I73.9 Active 742132398 Problem Amput leg, unil NOS-comp S88.919A Active 67345288 Problem Acute cystitis with hematuria N30.01 Active 65898981 Problem Major depressive disorder, single episode, unspecified F32.9 Active 83015310 Problem Anticoagulant long-term use Z79.01 Active 661204253 Problem Vitamin B12 deficiency E53.8 Dec, Active 151345455 Problem Chronic obstructive pulmonary disease, unspecified COPD type J44.9 Active 50766335 Problem Congestive heart failure, unspecified congestive heart failure chronicity, unspecified congestive heart failure type I50.9 Active 37121195 Problem Chronic fatigue, unspecified R53.82 Active 318598259 Problem Peripheral vascular disease I73.9 Active 458969493 Problem Chronic fatigue R53.82 Active 15334670 ALLERGIES No Information ENCOUNTERS Encounter Location Date Diagnosis [facility] [id number], [place] [address] Dec, Major depressive disorder, single episode, unspecified F32.9 [facility] [id number], [place] [address] Nov, Vitamin B 12 deficiency E53.8 [facility] [id number] [place] [address] Nov, Anticoagulant long-term use Z79.01 ; Mood disorder F39 ; Chronic obstructive pulmonary disease, unspecified COPD type J44.9 ; Peripheral vascular disease I73.9 and Chronic fatigue R53.82 [address] [address], [place] [address] Nov, Mood disorder F39 [address] [id number] [place] [address] Nov, [facility] [id number] [place] [address] Oct, Mood disorder F39 ; Chronic obstructive pulmonary disease, unspecified COPD type J44.9 ; Peripheral vascular disease I73.9 and Chronic fatigue R53.82 [address] [id number] [place] [address] September, Anticoagulant long-term use Z79.01 and Congestive heart failure, unspecified congestive heart failure chronicity, unspecified congestive heart failure type I50.9 [place] [id number] [place] [address] September, Vitamin B12 deficiency E53.8 [place] [id number] [place] [address] September, Anticoagulant long-term use Z79.01 [place] [id number] [place] [address] September, Anticoagulant long-term use Z79.01 and Congestive heart failure, unspecified congestive heart failure chronicity, unspecified congestive heart failure type I50.9 [address] [id number] [place] [address] Aug, Chronic fatigue, unspecified R53.82 [place] [id number] [place] [address] Aug, Anticoagulant long-term use Z79.01 [place] [id number] [place] [address] Aug, Nausea R11.0 and Weakness R53.1 [address] [id number] [place] [address] Aug, [facility] [address], [place] [address] Aug, Hematuria R31.9 and Acute cystitis with hematuria N30.01 [place] [id number] [place] [address] Aug, [place] [id number] [place] [address] Jul, Vitamin B 12 deficiency E53.8 [place] [id number] [place] [address] Jul, Anticoagulant long-term use Z79.01 [place] [id number] [place] [address] Jun, Anticoagulant long-term use Z79.01 [place] [id number] [place] [address] Jun, Chronic fatigue, unspecified R53.82 [place] [id number] [place] [address] May, Flu-like symptoms R68.89 and Influenza A J10.1 [place] [id number] [place] [address] May, [place] [id number] [place] [address] May, Chronic fatigue, unspecified R53.82 [place] [id number] [place] [address] May, Anticoagulant long-term use Z79.01 [place] [id number] [place] [address] 15 Apr, 2017 Medicare welcome exam Z00.00 ; Anticoagulant long-term use Z79.01 ; Medicare annual wellness visit, initial Z00.00 ; Medicare annual wellness visit, subsequent Z00.00 and Chronic fatigue, unspecified R53.82 [place] [id number] [place] [address] 15 Mar, 2017 Chronic fatigue, unspecified R53.82 [place] [id number] [place] [address] 07 Mar, 2017 Anticoagulant long-term use Z79.01 [facility] [id number] [place] [address] 07 Mar, 2017 Anticoagulant long-term use Z79.01 and Hematuria R31.9 [place] [id number] [place] [address] Mar, Hematuria R31.9 [place] [address] [address] Feb, Anticoagulant long-term use Z79.01 [place] [id number] [place] [address] Feb, Anticoagulant long-term use Z79.01 [place] [id number] [place] [address] Feb, Anticoagulant long-term use Z79.01 [place] [id number] [place] [address] Feb, Chronic fatigue, unspecified R53.82 [place] [id number] [place] [address] Feb, Anticoagulant long-term use Z79.01 [facility] [id number] [place] [address] 10 Feb, 2017 Congestive heart failure, unspecified congestive heart failure chronicity, unspecified congestive heart failure type I50.9 [place] [id number] [place] [address] 09 Feb, 2017 Congestive heart failure, unspecified congestive heart failure chronicity, unspecified congestive heart failure type I50.9 [place] [id number] [place] [address] Feb, [place] [id number] [place] [address] Jan, Anticoagulant long-term use Z79.01 [facility] [id number] [place] [address] Jan, [place] [id number] [place] [address] Jan, Anticoagulant long-term use Z79.01 and Hematuria R31.9 [place] [id number] [place] [address] Jan, Anticoagulant long-term use Z79.01 [place] [id number] [place] [address] Jan, Anticoagulant long-term use Z79.01 [place] [id number] [place] [address] Jan, Chronic fatigue, unspecified R53.82 [place] [id number] [place] [address] Dec, Chronic fatigue, unspecified R53.82 [place] [id number] [place] [address] Dec, [place] [id number] [place] [address] Dec, Chronic fatigue, unspecified R53.82 and Encounter for therapeutic drug level monitoring Z51.81 [place] [id number] [place] [address] Nov, Encounter for therapeutic drug level monitoring Z51.81 [place] [id number] [place] [address] Nov, Hematuria R31.9 [place] [id number] [place] [address] Nov, Hematuria R31.9 ; Anticoagulant long-term use Z79.01 and PVD (peripheral vascular disease) I73.9 [facility] [id number] [place] [address] Nov, Anticoagulant long-term use Z79.01 [facility] [id number] [place] [address] Nov, Anticoagulant long-term use Z79.01 [facility] [id number] [place] [address] Nov, [facility] [id number] [place] [address] Nov, Hematuria R31.9 and Acute cystitis with hematuria N30.01 [facility] [address] [id number] Oct, [place] [id number] [place] [address] Oct, [place] [id number] [place] [address] Oct, Hematuria R31.9 [facility] [id number] [place] [address] Oct, Hematuria R31.9 [facility] [id number] [place] [address] Oct, Anticoagulant long-term use Z79.01 [facility] [id number] [place] [address] Oct, Anticoagulant long-term use Z79.01 [facility] [id number] [place] [address] Oct, [facility] [address] [address] September, PVD (peripheral vascular disease) I73.9 ; Amput leg, unil NOS-comp S88.919A ; Acute cystitis without hematuria N30.00 ; Anticoagulant long-term use Z79.01 and Hypokalemia E87.6 [facility] [id number] [place] [address] Aug, Anticoagulant long-term use Z79.01 and Bronchitis J40 [facility] [id number] [place] [address] Jul, [facility] [id number] [place] [address] Jul, Anticoagulant long-term use Z79.01 and Mood disorder F39 [facility] [address] [address] Jul, [facility] [address] [address] May, [facility] [id number] [place] [address] May, Hypokalemia E87.6 [address] [address] [address] May, Mood disorder F39 [facility] [id number] [place] [address] May, Anticoagulant long-term use Z79.01 [facility] [id number] [place] [address] Apr, Anticoagulant long-term use Z79.01 [facility] [id number] [place] [address] Apr, Anticoagulant long-term use Z79.01 [facility] [id number] [place] [address] Apr, [facility] [address] [address] Apr, Anticoagulant long-term use Z79.01 [facility] [id number] [place] [address] Apr, Anticoagulant long-term use Z79.01 [facility] [id number] [place] [address] Apr, Anticoagulant long-term use Z79.01 [facility] [id number] [place] [address] Mar, [facility] [id number] [place] [address] Mar, [facility] [address] [address] Mar, Anticoagulant long-term use Z79.01 [facility] [address] [address] Feb, [facility] [address] [address] Feb, [facility] [address] [address] Feb, Anticoagulant long-term use Z79.01 [facility] [id number] [place] [address] Feb, Anticoagulant long-term use Z79.01 [facility] [id number] [place] [address] Jan, [facility] [id number] [place] [address] Jan, Anticoagulant long-term use Z79.01 [facility] [id number] [place] [address] Jan, Anticoagulant long-term use Z79.01 [facility] [address] [address] Dec, Anticoagulant long-term use Z79.01 [facility] [id number] [place] [address] Dec, Anticoagulant long-term use Z79.01 [facility] [address] [place] [address] Dec, Anticoagulant long-term use Z79.01 and Mood disorder F39 [facility] [id number] [place] [address] Dec, [facility] [id number] [place] [address] Nov, [facility] [id number] [place] [address] Nov, Anticoagulant long-term use Z79.01 [facility] [id number] [place] [address] Nov, Anticoagulant long-term use Z79.01 [facility] [id number] [place] [address] September, Anticoagulant long-term use Z79.01 [facility] [id number] [place] [address] Jul, Anticoagulant long-term use Z79.01 [facility] [id number] [place] [address] May, Anticoagulant long-term use Z79.01 [facility] [id number] [place] [address] May, Anticoagulant long-term use Z79.01 [facility] [id number] [place] [address] May, Anticoagulant long-term use Z79.01 [facility] [id number] [place] [address] May, Anticoagulant long-term use Z79.01 [facility] [id number] [place] [address] May, [facility] [id number] [place] [address] May, Congestive heart failure, unspecified congestive heart failure chronicity, unspecified congestive heart failure type I50.9 and Pulmonary congestion R09.89 [facility] [address] [address] Apr, Cough R05 ; Congestive heart failure, unspecified congestive heart failure chronicity, unspecified congestive heart failure type I50.9 and Pulmonary congestion R09.89 [facility] [address] [address] Mar, Hematuria R31.9 [facility] [address] [address] Mar, [place] [address] [address] Mar, Anticoagulant long-term use Z79.01 [place] [address] [address] Mar, [place] [address] [address] Mar, Hematuria R31.9 and Infective urethritis N34.2 [place] [address] [address] Mar, Anticoagulant long-term use Z79.01 [place] [address] [address] Mar, Anticoagulant long-term use Z79.01 [place] [address] [address] Mar, [place] [address] [address] Mar, Anticoagulant long-term use Z79.01 [place] [address] [address] Feb, Peristomal skin breakdown L98.499 [place] [address] [address] Feb, [place] [address] [facility] [id number] [address] Feb, UTI (urinary tract infection) N39.0 [facility] [address] [facility] [id number] [address] Jan, [facility] [id number], [place] [address] Dec, High risk medication use V58.69 [facility] [address], [place] [address] Nov, High risk medication use V58.69 [facility] [id number], [place] [address] Nov, [facility] [id number] [address] Nov, UTI (lower urinary tract infection) 599.0 ; URI, acute 465.9 ; Insomnia 780.52 ; Anxiety 300.00 and Lower limb amputation, unspecified level V49.70 [facility] [id number] [address] Oct, UTI (lower urinary tract infection) 599.0 ; URI, acute 465.9 ; Insomnia 780.52 ; Anxiety 300.00 and Lower limb amputation, unspecified level V49.70 [facility] [id number], [place] [address] Aug, [facility] [address] [facility] [id number], [place] [address] Aug, [facility] [id number], [place] [address] Jul, [facility] [id number], [place] [address] Jul, [facility] [id number], [place] [address] Jun, [facility] [id number] [place] [address] Jun, [facility] [place] [facility] [address] [id number] [place] [address] Mar, [facility] [place] [facility] [address] [id number] [place] [address] Mar, [facility] [place] [facility] [address] [id number] [place] [address] Mar, [facility] [place] [facility] [address] [id number] [place] [address] Mar, [facility] [place] [facility] [address] [id number] [place] [address] Mar, [facility] [place] [facility] [address] [id number] [place] [address] Feb, [facility] [place] [facility] [address] [id number] [place] [address] Feb, [facility] [place] [facility] [address] [id number] [place] [address] Feb, [facility] [place] [facility] [address] [id number] [place] [address] Feb, [facility] [place] [facility] [address] [id number] [place] [address] Feb, [facility] [place] [facility] [address] [id number] [place] [address] 16 Feb, 2014 [facility] [place] [facility] [address] [id number] [place] [address] 16 Feb, 2014 [facility] [place] [facility] [address] [id number] [place] [address] Feb, [facility] [place] [facility] [address] [id number] [place] [address] Feb, [facility] [place] [facility] [address] [id number] [place] [address] Feb, [facility] [place] [facility] [address] [id number] [place] [address] Feb, [facility] [place] [facility] [address] [id number] [place] [address] Feb, [facility] [place] [facility] [address] [id number] [place] [address] Feb, [facility] [place] [facility] [address] [id number] [place] [address] Feb, [facility] [place] [facility] [address] [id number] [place] [address] Feb, [facility] [place] [facility] [address] [id number] [place] [address] Feb, [facility] [place] [facility] [address] [id number] [place] [address] Jan, [facility] [place] [facility] [address] [id number] [place] [address] Jan, [facility] [place] [facility] [address] [id number] [place] [address] Jan, [facility] [place] [facility] [address] [id number] [place] [address] Jan, [facility] [place] [facility] [address] [id number] [place] [address] Jan, [facility] [place] [facility] [address] [id number], [place] [address] Nov, [facility] [place] [facility] [address] [id number] [place] [address] Nov, [facility] [place] [facility] [address] [id number] [place] [address] Nov, [facility] [place] [facility] [address] [id number], [place] [address] Nov, [facility] [place] [facility] [address] [id number] [place] [address] Nov, [facility] [place] [facility] [address] [id number] [place] [address] Nov, [facility] [place] [facility] [address] [id number] [place] [address] Oct, [facility] [place] [facility] [address] [id number] [place] [address] Oct, [facility] [place] [facility] [address] [id number] [place] [address] Oct, [facility] [place] [facility] [address] [id number] [place] [address] Oct, [facility] [place] [facility] [address] [id number] [place] [address] Oct, [facility] [place] [facility] [address] [id number] [place] [address] Oct, [facility] [place] [facility] [address] [id number] [place] [address] Oct, [facility] [place] [facility] [address] [id number] [place] [address] September, [facility] [place] [facility] [address] [id number] [place] [address] September, [facility] [place] [facility] [address] [id number] [place] [address] September, [facility] [place] [facility] [address] [id number] [place] [address] September, [facility] [place] [facility] [address] [id number] [place] [address] September, [facility] [place] [facility] [address] [id number] [place] [address] September, [facility] [place] [facility] [address] [id number] [place] [address] September, [facility] [place] [facility] [address] [id number] [place] [address] September, [facility] [place] [facility] [address] [id number] [place] [address] Aug, [facility] [place] [facility] [address] [id number] [place] [address] Aug, [facility] [place] [facility] [address] [id number] [place] [address] Aug, [facility] [place] [facility] [address] [id number] [place] [address] Aug, [facility] [place] [facility] [address] [id number] [place] [address] Jul, [facility] [place] [facility] [address] [id number] [place] [address] Jul, [facility] [place] [facility] [address] [id number] [place] [address] Jun, [facility] [place] [facility] [address] [id number] [place] [address] Jun, [facility] [place] [facility] [address] [id number] [place] [address] Jun, [facility] [place] [facility] [address] [id number] [place] [address] Jun, [facility] [place] [facility] [address] [id number] [place] [address] Jun, [facility] [place] [facility] [address] [id number] [place] [address] Jun, [facility] [place] [facility] [address] [id number] [place] [address] May, [facility] [place] [facility] [address] [id number] [place] [address] May, [facility] [place] [facility] [address] [id number] [place] [address] May, [facility] [place] [facility] [address] [id number] [place] [address] May, [facility] [place] [facility] [address] [id number] [place] [address] May, [facility] [place] [facility] [address] [id number] [place] [address] May, [facility] [place] [facility] [address] [id number] [place] [address] Feb, [facility] [place] [facility] [address] [id number] [place] [address] Feb, [facility] [place] [facility] [address] [id number] [place] [address] Feb, [facility] [place] [facility] [address] [id number] [place] [address] Feb, [facility] [place] [facility] [address] [id number] [place] [address] Jan, [facility] [place] [facility] [address] [id number] [place] [address] Jan, [facility] [place] [facility] [address] [id number] [place] [address] Jan, [facility] [place] [facility] [address] [id number] [place] [address] Dec, [facility] [place] [facility] [address] [id number] [place] [address] Nov, [facility] [place] [facility] [address] [id number] [place] [id number] Nov, [facility] [place] [facility] [address] [id number] [place] [address] Nov, [facility] [place] [facility] [address] [id number] [place] [address] Nov, [facility] [place] [facility] [address] [id number] [place] [address] Nov, [facility] [address] [id number] [place] [address] Oct, [facility] [address] [id number] [place] [address] September, [facility] [address] [id number] [place] [address] September, [facility] [address] [id number] [place] [address] Aug, [facility] [address] [id number] [place] [address] Aug, [facility] [address] [id number] [place] [address] Jul, [facility] [address] [id number] [place] [address] Jul, [facility] [address] [id number] [place] [address] Jul, [facility] [address] [id number] [place] [address] Jul, [facility] [address] [id number] [place] [address] Jun, [facility] [address] [id number] [place] [address] Jun, [facility] [address] [id number] [place] [address] Jun, [facility] [address] [id number] [place] [address] May, [facility] [address] [id number] [place] [address] May, [facility] [address] [id number] [place] [address] May, [facility] [place] [facility] [address] [id number] [place] [address] May, [facility] [place] [facility] [address] [id number] [place] [address] Apr, [facility] [place] [facility] [address] [facility] [id number] [place] [address] Apr, [facility] [place] [facility] [address] [id number] [place] [address] Apr, [facility] [place] [facility] [address] [id number] [place] [address] Apr, [facility] [place] [facility] [address] [id number] [place] [address] Apr, [facility] [place] [facility] [address] [facility] [id number] [place] [address] Apr, [facility] [place] [facility] [address] [id number], [place] [address] Mar, [facility] [place] [facility] [address] [id number], [place] [address] Mar, [facility] [place] [facility] [address] [facility] [id number], [place] [address] Mar, [facility] [place] [facility] [address] [id number], [place] [address] Mar, [facility] [place] [facility] [address] [id number], [place] [address] Mar, [facility] [place] [facility] [address] [id number], [place] [address] Mar, [facility] [place] [facility] [address] [facility] [id number], [place] [address] Feb, [facility] [place] [facility] [address] [facility] [id number], [place] [address] Feb, [facility] [place] [facility] [address] [id number] [place] [address] Feb, [facility] [place] [facility] [address] [id number] [place] [address] Feb, [facility] [place] [facility] [address] [id number] [place] [address] Jan, [facility] [place] [facility] [address] [id number] [place] [address] Jan, [facility] [place] [facility] [address] [id number] [place] [address] 24 Jan, 2012 [facility] [place] [facility] [address] [id number] [place] [address] Jan, [facility] [place] [facility] [address] [id number] [place] [address] Dec, [facility] [place] [facility] [address] [id number] [place] [address] Dec, [facility] [place] [facility] [address] [id number] [place] [address] Nov, [facility] [place] [facility] [address] [id number] [place] [address] Oct, [facility] [place] [facility] [address] [id number] [place] [address] Oct, [facility] [place] [facility] [address] [id number] [place] [address] Oct, [facility] [place] [facility] [address] [id number] [place] [address] September, [facility] [place] [facility] [address] [id number] [place] [address] September, [facility] [place] [facility] [address] [id number] [place] [address] September, [facility] [place] [facility] [address] [id number] [place] [address] September, [facility] [place] [facility] [address] [id number] [place] [address] September, [facility] [place] [facility] [address] [id number] [place] [address] September, [facility] [place] [facility] [address] [id number] [place] [address] September, [facility] [place] [facility] [address] [id number] [place] [address] Jul, [facility] [place] [facility] [address] [id number] [place] [address] Jul, [facility] [place] [facility] [address] [id number] [place] [address] Jun, [facility] [place] [facility] [address] [id number] [place] [address] Jun, [facility] [place] [facility] [address] [id number] [place] [address] Jun, [facility] [place] [facility] [address] [id number] [place] [address] May, [facility] [place] [facility] [address] [id number] [place] [address] Mar, [facility] [place] [facility] [address] [id number] [place] [address] Mar, [facility] [place] [facility] [address] [id number], [place] [address] Mar, [facility] [place] [facility] [address] [id number] [place] [address] Feb, [facility] [place] [facility] [address] [id number] [place] [address] Feb, [facility] [place] [facility] [address] [id number] [place] [address] Dec, [facility] [place] [facility] [address] [id number], [place] [address] May, [facility] [address] [facility] [id number], [place] [address] Apr, [facility] [address] [id number], [place] [address] Apr, [facility] [address] [id number], [place] [address] Apr, [facility] [address] [id number], [place] [address] Apr, [facility] [address] [id number], [place] [address] Feb, [facility] [address] [id number], [place] [address] Oct, IMMUNIZATIONS No Known Immunizations SOCIAL HISTORY Never Assessed REASON FOR VISIT Lab (walk-in) PLAN OF CARE VITAL SIGNS MEDICATIONS Unknown Medications RESULTS Name Result Date Reference Range INR (IN HOUSE) 2017-09-25 INR 2.8 1.10 - 3.30 PREVIOUS INR 1.9 CURRENT COUMADIN DOSE 1 mg qd NEW COUMADIN DOSE Lot # [id number] Exp date 05 Aug 2018 PROCEDURES Procedure Date Ordered Result Body Site PROTHROMBIN TIME September 25, 2017 INSTRUCTIONS MEDICATIONS ADMINISTERED No Known Medications [...]
--- OUTSIDE RECORDS SUMMARY | 2018-12-05 11:55 | XMS REPORT ---
Author Author ERIK SAMAYOA [facility] Address [address] [place] [address] Care Team Providers Care Video Editing Intern Name Role Phone ERIK SAMAYOA Unavailable PROBLEMS Type Condition ICD9-CM Code XLF24-TL Code Onset Dates Condition Status SNOMED Code Problem Mood disorder F39 Active 26604696 Problem PVD (peripheral vascular disease) I73.9 Active 264984129 Problem Amput leg, unil NOS-comp S88.919A Active 35311346 Problem Acute cystitis with hematuria N30.01 Active 99761346 Problem Major depressive disorder, single episode, unspecified F32.9 Active 14885238 Problem Anticoagulant long-term use Z79.01 Active 152218802 Problem Vitamin B12 deficiency E53.8 Dec, Active 407504699 Problem Chronic obstructive pulmonary disease, unspecified COPD type J44.9 Active 19292770 Problem Congestive heart failure, unspecified congestive heart failure chronicity, unspecified congestive heart failure type I50.9 Active 29376722 Problem Chronic fatigue, unspecified R53.82 Active 467585236 Problem Peripheral vascular disease I73.9 Active 400189077 Problem Chronic fatigue R53.82 Active 56506130 ALLERGIES No Information ENCOUNTERS Encounter Location Date Diagnosis [facility] [id number] [address] Dec, Major depressive disorder, single episode, unspecified F32.9 [facility] [id number] [address] Nov, Vitamin B 12 deficiency E53.8 [facility] [id number] [place] [address] Nov, Anticoagulant long-term use Z79.01 ; Mood disorder F39 ; Chronic obstructive pulmonary disease, unspecified COPD type J44.9 ; Peripheral vascular disease I73.9 and Chronic fatigue R53.82 [address] [id number] [address] Nov, Mood disorder F39 [place] [id number] [place] [address] Nov, [facility] [id number] [place] [address] Oct, Mood disorder F39 ; Chronic obstructive pulmonary disease, unspecified COPD type J44.9 ; Peripheral vascular disease I73.9 and Chronic fatigue R53.82 [place] [id number] [place] [address] September, Anticoagulant long-term use Z79.01 and Congestive heart failure, unspecified congestive heart failure chronicity, unspecified congestive heart failure type I50.9 [place] [id number] [place] [address] September, Vitamin B12 deficiency E53.8 [place] [id number] [place] [address] September, Anticoagulant long-term use Z79.01 [place] [id number] [place] [address] September, Anticoagulant long-term use Z79.01 and Congestive heart failure, unspecified congestive heart failure chronicity, unspecified congestive heart failure type I50.9 [place] [id number] [place] [address] Aug, Chronic fatigue, unspecified R53.82 [place] [id number] [place] [address] Aug, Anticoagulant long-term use Z79.01 [place] [id number] [place] [address] Aug, Nausea R11.0 and Weakness R53.1 [place] [id number] [place] [address] Aug, [facility] [id number] [address] Aug, Hematuria R31.9 and Acute cystitis with hematuria N30.01 [place] [id number] [place] [address] Aug, [place] [id number] [place] [address] Jul, Vitamin B 12 deficiency E53.8 [place] [id number] [place] [address] Jul, Anticoagulant long-term use Z79.01 [place] [id number] [place] [address] Jun, Chronic fatigue, unspecified R53.82 [place] [id number] [place] [address] Jun, Anticoagulant long-term use Z79.01 [place] [id number] [place] [address] May, Flu-like symptoms R68.89 and Influenza A J10.1 [place] [id number] [place] [address] May, [place] [id number] [place] [address] May, Chronic fatigue, unspecified R53.82 [place] [id number] [place] [address] May, Anticoagulant long-term use Z79.01 [place] [id number] [place] [address] 15 Apr, 2017 Medicare welcome exam Z00.00 ; Anticoagulant long-term use Z79.01 ; Medicare annual wellness visit, initial Z00.00 ; Medicare annual wellness visit, subsequent Z00.00 and Chronic fatigue, unspecified R53.82 [place] [id number] [place] [address] 15 Mar, 2017 Chronic fatigue, unspecified R53.82 [place] [id number] [place] [address] 07 Mar, 2017 Anticoagulant long-term use Z79.01 [facility] [id number] [place] [address] 07 Mar, 2017 Anticoagulant long-term use Z79.01 and Hematuria R31.9 [place] [id number] [place] [address] Mar, Hematuria R31.9 [place] [address] [address] Feb, Anticoagulant long-term use Z79.01 [place] [id number] [place] [address] Feb, Anticoagulant long-term use Z79.01 [place] [id number] [place] [address] Feb, Anticoagulant long-term use Z79.01 [place] [id number] [place] [address] Feb, Chronic fatigue, unspecified R53.82 [place] [id number] [place] [address] Feb, Anticoagulant long-term use Z79.01 [facility] [id number] [place] [address] 10 Feb, 2017 Congestive heart failure, unspecified congestive heart failure chronicity, unspecified congestive heart failure type I50.9 [place] [id number] [place] [address] 09 Feb, 2017 Congestive heart failure, unspecified congestive heart failure chronicity, unspecified congestive heart failure type I50.9 [place] [id number] [place] [address] Feb, [place] [id number] [place] [address] Jan, Anticoagulant long-term use Z79.01 [facility] [id number] [place] [address] Jan, [place] [id number] [place] [address] Jan, Anticoagulant long-term use Z79.01 and Hematuria R31.9 [place] [id number] [place] [address] Jan, Anticoagulant long-term use Z79.01 [place] [id number] [place] [address] Jan, Chronic fatigue, unspecified R53.82 [place] [id number] [place] [address] Jan, Anticoagulant long-term use Z79.01 [place] [id number] [place] [address] Dec, Chronic fatigue, unspecified R53.82 [place] [id number] [place] [address] Dec, [place] [id number] [place] [address] Dec, Chronic fatigue, unspecified R53.82 and Encounter for therapeutic drug level monitoring Z51.81 [place] [id number] [place] [address] Nov, Encounter for therapeutic drug level monitoring Z51.81 [place] [id number] [place] [address] Nov, Hematuria R31.9 [place] [id number] [place] [address] Nov, Hematuria R31.9 ; Anticoagulant long-term use Z79.01 and PVD (peripheral vascular disease) I73.9 [facility] [id number] [place] [address] Nov, Anticoagulant long-term use Z79.01 [facility] [id number] [place] [address] Nov, Anticoagulant long-term use Z79.01 [facility] [id number] [place] [address] Nov, [facility] [id number] [place] [address] Nov, Hematuria R31.9 and Acute cystitis with hematuria N30.01 [facility] [address] [id number] Oct, [place] [id number] [place] [address] Oct, [place] [id number] [place] [address] Oct, Hematuria R31.9 [facility] [id number] [place] [address] Oct, Hematuria R31.9 [facility] [id number] [place] [address] Oct, Anticoagulant long-term use Z79.01 [facility] [id number] [place] [address] Oct, Anticoagulant long-term use Z79.01 [facility] [id number] [place] [address] Oct, [facility] [address] [address] September, PVD (peripheral vascular disease) I73.9 ; Amput leg, unil NOS-comp S88.919A ; Acute cystitis without hematuria N30.00 ; Anticoagulant long-term use Z79.01 and Hypokalemia E87.6 [facility] [id number] [place] [address] Aug, Anticoagulant long-term use Z79.01 and Bronchitis J40 [facility] [id number] [place] [address] Jul, [facility] [id number] [place] [address] Jul, Anticoagulant long-term use Z79.01 and Mood disorder F39 [facility] [address] [address] Jul, [facility] [address] [address] May, [facility] [id number] [place] [address] May, Hypokalemia E87.6 [place] [address] [address] May, Mood disorder F39 [facility] [id number] [place] [address] May, Anticoagulant long-term use Z79.01 [facility] [id number] [place] [address] Apr, Anticoagulant long-term use Z79.01 [facility] [id number] [place] [address] Apr, Anticoagulant long-term use Z79.01 [facility] [id number] [place] [address] Apr, [facility] [address] [address] Apr, Anticoagulant long-term use Z79.01 [facility] [id number] [place] [address] Apr, Anticoagulant long-term use Z79.01 [facility] [id number] [place] [address] Apr, Anticoagulant long-term use Z79.01 [facility] [id number] [place] [address] Mar, [facility] [id number] [place] [address] Mar, [facility] [address] [address] Mar, Anticoagulant long-term use Z79.01 [facility] [address] [address] Feb, [facility] [address] [address] Feb, [facility] [address] [address] Feb, Anticoagulant long-term use Z79.01 [facility] [id number] [place] [address] Feb, Anticoagulant long-term use Z79.01 [facility] [id number] [place] [address] Jan, [facility] [id number] [place] [address] Jan, Anticoagulant long-term use Z79.01 [facility] [id number] [place] [address] Jan, Anticoagulant long-term use Z79.01 [facility] [address] [address] Dec, Anticoagulant long-term use Z79.01 [facility] [id number] [place] [address] Dec, Anticoagulant long-term use Z79.01 [facility] [address] [place] [address] Dec, Anticoagulant long-term use Z79.01 and Mood disorder F39 [facility] [id number] [place] [address] Dec, [facility] [id number] [place] [address] Nov, [facility] [id number] [place] [address] Nov, Anticoagulant long-term use Z79.01 [facility] [id number] [place] [address] Nov, Anticoagulant long-term use Z79.01 [facility] [id number] [place] [address] September, Anticoagulant long-term use Z79.01 [facility] [id number] [place] [address] Jul, Anticoagulant long-term use Z79.01 [facility] [id number] [place] [address] May, Anticoagulant long-term use Z79.01 [facility] [id number] [place] [address] May, Anticoagulant long-term use Z79.01 [facility] [id number] [place] [address] May, Anticoagulant long-term use Z79.01 [facility] [id number] [place] [address] May, Anticoagulant long-term use Z79.01 [facility] [id number] [place] [address] May, [facility] [id number] [place] [address] May, Congestive heart failure, unspecified congestive heart failure chronicity, unspecified congestive heart failure type I50.9 and Pulmonary congestion R09.89 [facility] [address] [address] Apr, Cough R05 ; Congestive heart failure, unspecified congestive heart failure chronicity, unspecified congestive heart failure type I50.9 and Pulmonary congestion R09.89 [facility] [address] [address] Mar, Hematuria R31.9 [facility] [address] [address] Mar, [place] [address] [address] Mar, Anticoagulant long-term use Z79.01 [place] [address] [address] Mar, [place] [address] [address] Mar, Hematuria R31.9 and Infective urethritis N34.2 [place] [address] [address] Mar, Anticoagulant long-term use Z79.01 [place] [address] [address] Mar, Anticoagulant long-term use Z79.01 [place] [address] [address] Mar, [place] [address] [address] Mar, Anticoagulant long-term use Z79.01 [place] [address] [address] Feb, Peristomal skin breakdown L98.499 [place] [address] [address] Feb, [place] [address] [facility] [id number] [address] Feb, UTI (urinary tract infection) N39.0 [facility] [address] [facility] [id number] [address] Jan, [facility] [id number] [address] Dec, High risk medication use V58.69 [facility] [address] [address] Nov, High risk medication use V58.69 [facility] [id number] [address] Nov, [facility] [id number] [address] Nov, UTI (lower urinary tract infection) 599.0 ; URI, acute 465.9 ; Insomnia 780.52 ; Anxiety 300.00 and Lower limb amputation, unspecified level V49.70 [facility] [id number] [address] Oct, UTI (lower urinary tract infection) 599.0 ; URI, acute 465.9 ; Insomnia 780.52 ; Anxiety 300.00 and Lower limb amputation, unspecified level V49.70 [facility] [id number] [address] Aug, [facility] [address] [facility] [id number] [address] Aug, [facility] [id number] [address] Jul, [facility] [id number] [address] Jul, [facility] [id number] [address] Jun, [facility] [id number] [place] [address] Jun, [facility] [place] [facility] [address] [id number] [place] [address] Mar, [facility] [place] [facility] [address] [id number] [place] [address] Mar, [facility] [place] [facility] [address] [id number] [place] [address] Mar, [facility] [place] [facility] [address] [id number] [place] [address] Mar, [facility] [place] [facility] [address] [id number] [place] [address] Mar, [facility] [place] [facility] [address] [id number] [place] [address] Feb, [facility] [place] [facility] [address] [id number] [place] [address] Feb, [facility] [place] [facility] [address] [id number] [place] [address] Feb, [facility] [place] [facility] [address] [id number] [place] [address] Feb, [facility] [place] [facility] [address] [id number] [place] [address] Feb, [facility] [place] [facility] [address] [id number] [place] [address] 16 Feb, 2014 [facility] [place] [facility] [address] [id number] [place] [address] 16 Feb, 2014 [facility] [place] [facility] [address] [id number] [place] [address] Feb, [facility] [place] [facility] [address] [id number] [place] [address] Feb, [facility] [place] [facility] [address] [id number] [place] [address] Feb, [facility] [place] [facility] [address] [id number] [place] [address] Feb, [facility] [place] [facility] [address] [id number] [place] [address] Feb, [facility] [place] [facility] [address] [id number] [place] [address] Feb, [facility] [place] [facility] [address] [id number] [place] [address] Feb, [facility] [place] [facility] [address] [id number] [place] [address] Feb, [facility] [place] [facility] [address] [id number] [place] [address] Feb, [facility] [place] [facility] [address] [id number] [place] [address] Jan, [facility] [place] [facility] [address] [id number] [place] [address] Jan, [facility] [place] [facility] [address] [id number] [place] [address] Jan, [facility] [place] [facility] [address] [id number] [place] [address] Jan, [facility] [place] [facility] [address] [id number] [place] [address] Jan, [facility] [place] [facility] [address] [id number] [address] Nov, [facility] [place] [facility] [address] [id number] [place] [address] Nov, [facility] [place] [facility] [address] [id number] [place] [address] Nov, [facility] [place] [facility] [address] [id number] [place] [address] Nov, [facility] [place] [facility] [address] [id number] [place] [address] Nov, [facility] [place] [facility] [address] [id number] [place] [address] Nov, [facility] [place] [facility] [address] [id number] [place] [address] Oct, [facility] [place] [facility] [address] [id number] [place] [address] Oct, [facility] [place] [facility] [address] [id number] [place] [address] Oct, [facility] [place] [facility] [address] [id number] [place] [address] Oct, [facility] [place] [facility] [address] [id number] [place] [address] Oct, [facility] [place] [facility] [address] [id number] [place] [address] Oct, [facility] [place] [facility] [address] [id number] [place] [address] Oct, [facility] [place] [facility] [address] [id number] [place] [address] September, [facility] [place] [facility] [address] [id number] [place] [address] September, [facility] [place] [facility] [address] [id number] [place] [address] September, [facility] [place] [facility] [address] [id number] [place] [address] September, [facility] [place] [facility] [address] [id number] [place] [address] September, [facility] [place] [facility] [address] [id number] [place] [address] September, [facility] [place] [facility] [address] [id number] [place] [address] September, [facility] [place] [facility] [address] [id number] [place] [address] September, [facility] [place] [facility] [address] [id number] [place] [address] Aug, [facility] [place] [facility] [address] [id number] [place] [address] Aug, [facility] [place] [facility] [address] [id number] [place] [address] Aug, [facility] [place] [facility] [address] [id number] [place] [address] Aug, [facility] [place] [facility] [address] [id number] [place] [address] Jul, [facility] [place] [facility] [address] [id number] [place] [address] Jul, [facility] [place] [facility] [address] [id number] [place] [address] Jun, [facility] [place] [facility] [address] [id number] [place] [address] Jun, [facility] [place] [facility] [address] [id number] [place] [address] Jun, [facility] [place] [facility] [address] [id number] [place] [address] Jun, [facility] [place] [facility] [address] [id number] [place] [address] Jun, [facility] [place] [facility] [address] [id number] [place] [address] Jun, [facility] [place] [facility] [address] [id number] [place] [address] May, [facility] [place] [facility] [address] [id number] [place] [address] May, [facility] [place] [facility] [address] [id number] [place] [address] May, [facility] [place] [facility] [address] [id number] [place] [address] May, [facility] [place] [facility] [address] [id number] [place] [address] May, [facility] [place] [facility] [address] [id number] [place] [address] May, [facility] [place] [facility] [address] [id number] [place] [address] Feb, [facility] [place] [facility] [address] [id number] [place] [address] Feb, [facility] [place] [facility] [address] [id number] [place] [address] Feb, [facility] [place] [facility] [address] [id number] [place] [address] Feb, [facility] [place] [facility] [address] [id number] [place] [address] Jan, [facility] [place] [facility] [address] [id number] [place] [address] Jan, [facility] [place] [facility] [address] [id number] [place] [address] Jan, [facility] [place] [facility] [address] [id number] [place] [address] Dec, [facility] [place] [facility] [address] [id number] [place] [address] Nov, [facility] [place] [facility] [address] [id number] [place] [address] Nov, [facility] [place] [facility] [address] [id number] [place] [address] Nov, [facility] [place] [facility] [address] [id number] [place] [address] Nov, [facility] [place] [facility] [address] [id number] [place] [address] Nov, [facility] [address] [id number] [place] [address] Oct, [facility] [address] [id number] [place] [address] September, [facility] [address] [id number] [place] [address] September, [facility] [address] [id number] [place] [address] Aug, [facility] [address] [id number] [place] [address] Aug, [facility] [address] [id number] [place] [address] Jul, [facility] [address] [id number] [place] [address] Jul, [facility] [address] [id number] [place] [address] Jul, [facility] [address] [id number] [place] [address] Jul, [facility] [address] [id number] [place] [address] Jun, [facility] [address] [id number] [place] [address] Jun, [facility] [address] [id number] [place] [address] Jun, [facility] [address] [id number] [place] [address] May, [facility] [address] [id number] [place] [address] May, [facility] [address] [id number] [place] [address] May, [facility] [place] [facility] [address] [id number] [place] [address] May, [facility] [place] [facility] [address] [id number] [place] [address] Apr, [facility] [place] [facility] [address] [facility] [id number] [place] [address] Apr, [facility] [place] [facility] [address] [id number] [place] [address] Apr, [facility] [place] [facility] [address] [id number] [place] [address] Apr, [facility] [place] [facility] [address] [id number] [place] [address] Apr, [facility] [place] [facility] [address] [facility] [id number] [place] [address] Apr, [facility] [place] [facility] [address] [id number] [address] Mar, [facility] [place] [facility] [address] [id number] [place] [address] Mar, [facility] [place] [facility] [address] [facility] [id number] [place] [address] Mar, [facility] [place] [facility] [address] [id number] [place] [address] Mar, [facility] [place] [facility] [address] [id number] [place] [address] Mar, [facility] [place] [facility] [address] [id number] [place] [address] Mar, [facility] [place] [facility] [address] [facility] [id number] [place] [address] Feb, [facility] [place] [facility] [address] [facility] [id number] [place] [address] Feb, [facility] [place] [facility] [address] [id number] [place] [address] Feb, [facility] [place] [facility] [address] [id number] [place] [address] Feb, [facility] [place] [facility] [address] [id number] [place] [address] Jan, [facility] [place] [facility] [address] [id number] [place] [address] Jan, [facility] [place] [facility] [address] [id number] [place] [address] 24 Jan, 2012 [facility] [place] [facility] [address] [id number] [place] [address] Jan, [facility] [place] [facility] [address] [id number] [place] [address] Dec, [facility] [place] [facility] [address] [id number] [place] [address] Dec, [facility] [place] [facility] [address] [id number] [place] [address] Nov, [facility] [place] [facility] [address] [id number] [place] [address] Oct, [facility] [place] [facility] [address] [id number] [place] [address] Oct, [facility] [place] [facility] [address] [id number] [place] [address] Oct, [facility] [place] [facility] [address] [id number] [place] [address] September, [facility] [place] [facility] [address] [id number] [place] [address] September, [facility] [place] [facility] [address] [id number] [place] [address] September, [facility] [place] [facility] [address] [id number] [place] [address] September, [facility] [place] [facility] [address] [id number] [place] [address] September, [facility] [place] [facility] [address] [id number] [place] [address] September, [facility] [place] [facility] [address] [id number] [place] [address] September, [facility] [place] [facility] [address] [id number] [place] [address] Jul, [facility] [place] [facility] [address] [id number] [place] [address] Jul, [facility] [place] [facility] [address] [id number] [place] [address] Jun, [facility] [place] [facility] [address] [id number] [place] [address] Jun, [facility] [place] [facility] [address] [id number] [place] [address] Jun, [facility] [place] [facility] [address] [id number] [place] [address] May, [facility] [place] [facility] [address] [id number] [place] [address] Mar, [facility] [place] [facility] [address] [id number] [place] [address] Mar, [facility] [place] [facility] [address] [id number] [place] [address] Mar, [facility] [place] [facility] [address] [id number] [place] [address] Feb, [facility] [place] [facility] [address] [id number] [place] [address] Feb, [facility] [place] [facility] [address] [id number] [place] [address] Dec, [facility] [place] [facility] [address] [id number] [place] [address] May, [facility] [address] [id number] [address] Apr, [facility] [address] [id number] [address] Apr, [facility] [address] [id number] [address] Apr, [facility] [address] [id number] [address] Apr, [facility] [address] [id number] [address] Feb, [facility] [address] [id number] [address] Oct, IMMUNIZATIONS No Known Immunizations SOCIAL HISTORY Never Assessed REASON FOR VISIT Lab Order Request PLAN OF CARE VITAL SIGNS MEDICATIONS Unknown [...] 5th toe removal 06/25/2009 Hospitalization History pneumonia, hypoxia-[facility] 11/03/16
--- OUTSIDE RECORDS SUMMARY | 2018-12-05 11:55 | XMS REPORT ---
Author Author ERIK SAMAYOA [facility] Address [address] [place] [address] Care Team Providers Care Associate Programmer Name Role Phone ERIK SAMAYOA Unavailable PROBLEMS Type Condition ICD9-CM Code JKI68-QG Code Onset Dates Condition Status SNOMED Code Problem Mood disorder F39 Active 69586777 Problem PVD (peripheral vascular disease) I73.9 Active 226242743 Problem Amput leg, unil NOS-comp S88.919A Active 47931594 Problem Acute cystitis with hematuria N30.01 Active 25013575 Problem Major depressive disorder, single episode, unspecified F32.9 Active 62782324 Problem Anticoagulant long-term use Z79.01 Active 310662770 Problem Vitamin B12 deficiency E53.8 Dec, Active 404490657 Problem Chronic obstructive pulmonary disease, unspecified COPD type J44.9 Active 24206010 Problem Congestive heart failure, unspecified congestive heart failure chronicity, unspecified congestive heart failure type I50.9 Active 27767055 Problem Chronic fatigue, unspecified R53.82 Active 003174524 Problem Peripheral vascular disease I73.9 Active 513260391 Problem Chronic fatigue R53.82 Active 24356631 ALLERGIES No Information ENCOUNTERS Encounter Location Date Diagnosis [facility] [id number], [place] [address] Dec, Major depressive disorder, single episode, unspecified F32.9 [facility] [id number], [place] [address] Nov, Vitamin B [address] [facility] [id number] [place] [address] Nov, Anticoagulant long-term use Z79.01 ; Mood disorder F39 ; Chronic obstructive pulmonary disease, unspecified COPD type J44.9 ; Peripheral vascular disease I73.9 and Chronic fatigue R53.82 [address], [place] [address] Nov, Mood disorder F39 [place] [id number] [place] [address] Nov, [facility] [id number] [place] [address] Oct, Mood disorder F39 ; Chronic obstructive pulmonary disease, unspecified COPD type J44.9 ; Peripheral vascular disease I73.9 and Chronic fatigue R53.82 [place] [id number] [place] [address] September, Anticoagulant long-term use Z79.01 and Congestive heart failure, unspecified congestive heart failure chronicity, unspecified congestive heart failure type I50.9 [place] [id number] [place] [address] September, Vitamin B12 deficiency E53.8 [place] [id number] [place] [address] September, Anticoagulant long-term use Z79.01 [place] [id number] [place] [address] September, Anticoagulant long-term use Z79.01 and Congestive heart failure, unspecified congestive heart failure chronicity, unspecified congestive heart failure type I50.9 [place] [id number] [place] [address] Aug, Chronic fatigue, unspecified R53.82 [place] [id number] [place] [address] Aug, Anticoagulant long-term use Z79.01 [place] [id number] [place] [address] Aug, Nausea R11.0 and Weakness R53.1 [place] [id number] [place] [address] Aug, [facility] [address], [place] [address] Aug, Hematuria R31.9 and Acute cystitis with hematuria N30.01 [place] [id number] [place] [address] Aug, [place] [id number] [place] [address] Jul, Vitamin B 12 deficiency E53.8 [place] [id number] [place] [address] Jul, Anticoagulant long-term use Z79.01 [place] [id number] [place] [address] Jun, Chronic fatigue, unspecified R53.82 [place] [id number] [place] [address] Jun, Anticoagulant long-term use Z79.01 [place] [id number] [place] [address] May, Flu-like symptoms R68.89 and Influenza A J10.1 [place] [id number] [place] [address] May, [place] [id number] [place] [address] May, Chronic fatigue, unspecified R53.82 [place] [id number] [place] [address] May, Anticoagulant long-term use Z79.01 [place] [id number] [place] [address] 15 Apr, 2017 Medicare welcome exam Z00.00 ; Anticoagulant long-term use Z79.01 ; Medicare annual wellness visit, initial Z00.00 ; Medicare annual wellness visit, subsequent Z00.00 and Chronic fatigue, unspecified R53.82 [place] [id number] [place] [address] 15 Mar, 2017 Chronic fatigue, unspecified R53.82 [place] [id number] [place] [address] 07 Mar, 2017 Anticoagulant long-term use Z79.01 [facility] [id number] [place] [address] 07 Mar, 2017 Anticoagulant long-term use Z79.01 and Hematuria R31.9 [place] [id number] [place] [address] Mar, Hematuria R31.9 [place] [address] [address] Feb, Anticoagulant long-term use Z79.01 [place] [id number] [place] [address] Feb, Anticoagulant long-term use Z79.01 [place] [id number] [place] [address] Feb, Anticoagulant long-term use Z79.01 [place] [id number] [place] [address] Feb, Chronic fatigue, unspecified R53.82 [place] [id number] [place] [address] Feb, Anticoagulant long-term use Z79.01 [facility] [id number] [place] [address] 10 Feb, 2017 Congestive heart failure, unspecified congestive heart failure chronicity, unspecified congestive heart failure type I50.9 [place] [id number] [place] [address] 09 Feb, 2017 Congestive heart failure, unspecified congestive heart failure chronicity, unspecified congestive heart failure type I50.9 [place] [id number] [place] [address] Feb, [place] [id number] [place] [address] Jan, Anticoagulant long-term use Z79.01 [facility] [id number] [place] [address] Jan, [place] [id number] [place] [address] Jan, Anticoagulant long-term use Z79.01 and Hematuria R31.9 [place] [id number] [place] [address] Jan, Anticoagulant long-term use Z79.01 [place] [id number] [place] [address] Jan, Chronic fatigue, unspecified R53.82 [place] [id number] [place] [address] Jan, Anticoagulant long-term use Z79.01 [place] [id number] [place] [address] Dec, Chronic fatigue, unspecified R53.82 [place] [id number] [place] [address] Dec, [place] [id number] [place] [address] Dec, Chronic fatigue, unspecified R53.82 and Encounter for therapeutic drug level monitoring Z51.81 [place] [id number] [place] [address] Nov, Encounter for therapeutic drug level monitoring Z51.81 [place] [id number] [place] [address] Nov, Hematuria R31.9 [place] [id number] [place] [address] Nov, Hematuria R31.9 ; Anticoagulant long-term use Z79.01 and PVD (peripheral vascular disease) I73.9 [facility] [address] [place] [address] Nov, Anticoagulant long-term use Z79.01 [facility] [id number] [place] [address] Nov, Anticoagulant long-term use Z79.01 [facility] [id number] [place] [address] Nov, [facility] [id number] [place] [address] Nov, Hematuria R31.9 and Acute cystitis with hematuria N30.01 [facility] [address] [id number] Oct, [place] [id number] [place] [address] Oct, [place] [id number] [place] [address] Oct, Hematuria R31.9 [facility] [id number] [place] [address] Oct, Hematuria R31.9 [facility] [id number] [place] [address] Oct, Anticoagulant long-term use Z79.01 [facility] [id number] [place] [address] Oct, Anticoagulant long-term use Z79.01 [facility] [id number] [place] [address] Oct, [facility] [address] [address] September, PVD (peripheral vascular disease) I73.9 ; Amput leg, unil NOS-comp S88.919A ; Acute cystitis without hematuria N30.00 ; Anticoagulant long-term use Z79.[address] [facility] [id number] [place] [address] Aug, Anticoagulant long-term use Z79.[address] [facility] [id number] [place] [address] Jul, [facility] [id number] [place] [address] Jul, Anticoagulant long-term use Z79.01 [address] Mood disorder F39 [facility] [address] [address] Jul, [facility] [address] [address] May, [facility] [id number] [place] [address] May, Hypokalemia E87.6 [place] [address] [address] May, Mood disorder F39 [facility] [id number] [place] [address] May, Anticoagulant long-term use Z79.01 [facility] [id number] [place] [address] Apr, Anticoagulant long-term use Z79.01 [facility] [id number] [place] [address] Apr, Anticoagulant long-term use Z79.01 [facility] [id number] [place] [address] Apr, [facility] [address] [address] Apr, Anticoagulant long-term use Z79.01 [facility] [id number] [place] [address] Apr, Anticoagulant long-term use Z79.01 [facility] [id number] [place] [address] Apr, Anticoagulant long-term use Z79.01 [facility] [id number] [place] [address] Mar, [facility] [id number] [place] [address] Mar, [facility] [address] [address] Mar, Anticoagulant long-term use Z79.01 [facility] [address] [address] Feb, [facility] [address] [address] Feb, [facility] [address] [address] Feb, Anticoagulant long-term use Z79.01 [facility] [id number] [place] [address] Feb, Anticoagulant long-term use Z79.01 [facility] [id number] [place] [address] Jan, [facility] [id number] [place] [address] Jan, Anticoagulant long-term use Z79.01 [facility] [id number] [place] [address] Jan, Anticoagulant long-term use Z79.01 [facility] [address] [address] Dec, Anticoagulant long-term use Z79.01 [facility] [id number] [place] [address] Dec, Anticoagulant long-term use Z79.01 [facility] [address] [place] [address] Dec, Anticoagulant long-term use Z79.01 and Mood disorder F39 [facility] [id number] [place] [address] Dec, [facility] [id number] [place] [address] Nov, [facility] [id number] [place] [address] Nov, Anticoagulant long-term use Z79.01 [facility] [id number] [place] [address] Nov, Anticoagulant long-term use Z79.01 [facility] [id number] [place] [address] September, Anticoagulant long-term use Z79.01 [facility] [id number] [place] [address] Jul, Anticoagulant long-term use Z79.01 [facility] [id number] [place] [address] May, Anticoagulant long-term use Z79.01 [facility] [id number] [place] [address] May, Anticoagulant long-term use Z79.01 [facility] [id number] [place] [address] May, Anticoagulant long-term use Z79.01 [facility] [id number] [place] [address] May, Anticoagulant long-term use Z79.01 [facility] [id number] [place] [address] May, [facility] [id number] [place] [address] May, Congestive heart failure, unspecified congestive heart failure chronicity, unspecified congestive heart failure type I50.9 and Pulmonary congestion R09.89 [facility] [address] [address] Apr, Cough R05 ; Congestive heart failure, unspecified congestive heart failure chronicity, unspecified congestive heart failure type I50.9 and Pulmonary congestion R09.89 [facility] [address] [address] Mar, Hematuria R31.9 [facility] [address] [address] Mar, [place] [address] [address] Mar, Anticoagulant long-term use Z79.01 [place] [address] [address] Mar, [place] [address] [address] Mar, Hematuria R31.9 and Infective urethritis N34.2 [place] [address] [address] Mar, Anticoagulant long-term use Z79.01 [place] [address] [address] Mar, Anticoagulant long-term use Z79.01 [place] [address] [address] Mar, [place] [address] [address] Mar, Anticoagulant long-term use Z79.01 [place] [address] [address] Feb, Peristomal skin breakdown L98.499 [place] [address] [address] Feb, [place] [address] [facility] [id number] [address] Feb, UTI (urinary tract infection) N39.0 [facility] [address] [facility] [id number], [place] [address] Jan, [facility] [id number], [place] [address] Dec, High risk medication use V58.69 [facility] [address], [place] [address] Nov, High risk medication use V58.69 [facility] [id number], [place] [address] Nov, [facility] [id number], [place] [address] Nov, UTI (lower urinary tract infection) 599.0 ; URI, acute 465.9 ; Insomnia 780.52 ; Anxiety 300.00 and Lower limb amputation, unspecified level V49.70 [facility] [id number], [place] [address] Oct, UTI (lower urinary tract infection) 599.0 ; URI, acute 465.9 ; Insomnia 780.52 ; Anxiety 300.00 and Lower limb amputation, unspecified level V49.70 [facility] [id number] [address] Aug, [facility] [address] [facility] [id number], [place] [address] Aug, [facility] [id number], [place] [address] Jul, [facility] [id number], [place] [address] Jul, [facility] [id number], [place] [address] Jun, [facility] [address] [place] [address] Jun, [facility] [place] [facility] [address] [id number] [place] [address] Mar, [facility] [place] [facility] [address] [id number] [place] [address] Mar, [facility] [place] [facility] [address] [id number] [place] [address] Mar, [facility] [place] [facility] [address] [id number] [place] [address] Mar, [facility] [place] [facility] [address] [id number] [place] [address] Mar, [facility] [place] [facility] [address] [id number] [place] [address] Feb, [facility] [place] [facility] [address] [id number] [place] [address] Feb, [facility] [place] [facility] [address] [id number] [place] [address] Feb, [facility] [place] [facility] [address] [id number] [place] [address] Feb, [facility] [place] [facility] [address] [id number] [place] [address] Feb, [facility] [place] [facility] [address] [id number] [place] [address] 16 Feb, 2014 [facility] [place] [facility] [address] [id number] [place] [address] 16 Feb, 2014 [facility] [place] [facility] [address] [id number] [place] [address] Feb, [facility] [place] [facility] [address] [id number] [place] [address] Feb, [facility] [place] [facility] [address] [id number] [place] [address] Feb, [facility] [place] [facility] [address] [id number] [place] [address] Feb, [facility] [place] [facility] [address] [id number] [place] [address] Feb, [facility] [place] [facility] [address] [id number] [place] [address] Feb, [facility] [place] [facility] [address] [id number] [place] [address] Feb, [facility] [place] [facility] [address] [id number] [place] [address] Feb, [facility] [place] [facility] [address] [id number] [place] [address] Feb, [facility] [place] [facility] [address] [id number] [place] [address] Jan, [facility] [place] [facility] [address] [id number] [place] [address] Jan, [facility] [place] [facility] [address] [id number] [place] [address] Jan, [facility] [place] [facility] [address] [id number] [place] [address] Jan, [facility] [place] [facility] [address] [id number] [place] [address] Jan, [facility] [place] [facility] [address] [id number], [place] [address] Nov, [facility] [place] [facility] [address] [id number] [place] [address] Nov, [facility] [place] [facility] [address] [id number] [place] [address] Nov, [facility] [place] [facility] [address] [id number], [place] [address] Nov, [facility] [place] [facility] [address] [id number] [place] [address] Nov, [facility] [place] [facility] [address] [id number] [place] [address] Nov, [facility] [place] [facility] [address] [id number] [place] [address] Oct, [facility] [place] [facility] [address] [id number] [place] [address] Oct, [facility] [place] [facility] [address] [id number] [place] [address] Oct, [facility] [place] [facility] [address] [id number] [place] [address] Oct, [facility] [place] [facility] [address] [id number] [place] [address] Oct, [facility] [place] [facility] [address] [id number] [place] [address] Oct, [facility] [place] [facility] [address] [id number] [place] [address] Oct, [facility] [place] [facility] [address] [id number] [place] [address] September, [facility] [place] [facility] [address] [id number] [place] [address] September, [facility] [place] [facility] [address] [id number] [place] [address] September, [facility] [place] [facility] [address] [id number] [place] [address] September, [facility] [place] [facility] [address] [id number] [place] [address] September, [facility] [place] [facility] [address] [id number] [place] [address] September, [facility] [place] [facility] [address] [id number] [place] [address] September, [facility] [place] [facility] [address] [id number] [place] [address] September, [facility] [place] [facility] [address] [id number] [place] [address] Aug, [facility] [place] [facility] [address] [id number] [place] [address] Aug, [facility] [place] [facility] [address] [id number] [place] [address] Aug, [facility] [place] [facility] [address] [id number] [place] [address] Aug, [facility] [place] [facility] [address] [id number] [place] [address] Jul, [facility] [place] [facility] [address] [id number] [place] [address] Jul, [facility] [place] [facility] [address] [id number] [place] [address] Jun, [facility] [place] [facility] [address] [id number] [place] [address] Jun, [facility] [place] [facility] [address] [id number] [place] [address] Jun, [facility] [place] [facility] [address] [id number] [place] [address] Jun, [facility] [place] [facility] [address] [id number] [place] [address] Jun, [facility] [place] [facility] [address] [id number] [place] [address] Jun, [facility] [place] [facility] [address] [id number] [place] [address] May, [facility] [place] [facility] [address] [id number] [place] [address] May, [facility] [place] [facility] [address] [id number] [place] [address] May, [facility] [place] [facility] [address] [id number] [place] [address] May, [facility] [place] [facility] [address] [id number] [place] [address] May, [facility] [place] [facility] [address] [id number] [place] [address] May, [facility] [place] [facility] [address] [id number] [place] [address] Feb, [facility] [place] [facility] [address] [id number] [place] [address] Feb, [facility] [place] [facility] [address] [id number] [place] [address] Feb, [facility] [place] [facility] [address] [id number] [place] [address] Feb, [facility] [place] [facility] [address] [id number] [place] [address] Jan, [facility] [place] [facility] [address] [id number] [place] [address] Jan, [facility] [place] [facility] [address] [id number] [place] [address] Jan, [facility] [place] [facility] [address] [id number] [place] [address] Dec, [facility] [place] [facility] [address] [id number] [place] [address] Nov, [facility] [place] [facility] [address] [id number] [place] [address] Nov, [facility] [place] [facility] [address] [id number] [place] [address] Nov, [facility] [place] [facility] [address] [id number] [place] [address] Nov, [facility] [place] [facility] [address] [id number] [place] [address] Nov, [facility] [address] [id number] [place] [address] Oct, [facility] [address] [id number] [place] [address] September, [facility] [address] [id number] [place] [address] September, [facility] [address] [id number] [place] [address] Aug, [facility] [address] [id number] [place] [address] Aug, [facility] [address] [id number] [place] [address] Jul, [facility] [address] [id number] [place] [address] Jul, [facility] [address] [id number] [place] [address] Jul, [facility] [address] [id number] [place] [address] Jul, [facility] [address] [id number] [place] [address] Jun, [facility] [address] [id number] [place] [address] Jun, [facility] [address] [id number] [place] [address] Jun, [facility] [address] [id number] [place] [address] May, [facility] [address] [id number] [place] [address] May, [facility] [address] [id number] [place] [address] May, [facility] [place] [facility] [address] [id number] [place] [address] May, [facility] [place] [facility] [address] [id number] [place] [address] Apr, [facility] [place] [facility] [address] [facility] [id number] [place] [address] Apr, [facility] [place] [facility] [address] [id number] [place] [address] Apr, [facility] [place] [facility] [address] [id number] [place] [address] Apr, [facility] [place] [facility] [address] [id number] [place] [address] Apr, [facility] [place] [facility] [address] [facility] [id number] [place] [address] Apr, [facility] [place] [facility] [address] [id number], [place] [address] Mar, [facility] [place] [facility] [address] [id number], [place] [address] Mar, [facility] [place] [facility] [address] [facility] [id number], [place] [address] Mar, [facility] [place] [facility] [address] [id number], [place] [address] Mar, [facility] [place] [facility] [address] [id number], [place] [address] Mar, [facility] [place] [facility] [address] [id number], [place] [address] Mar, [facility] [place] [facility] [address] [facility] [id number], [place] [address] Feb, [facility] [place] [facility] [address] [facility] [id number], [place] [address] Feb, [facility] [place] [facility] [address] [id number] [place] [address] Feb, [facility] [place] [facility] [address] [id number] [place] [address] Feb, [facility] [place] [facility] [address] [id number] [place] [address] Jan, [facility] [place] [facility] [address] [id number] [place] [address] Jan, [facility] [place] [facility] [address] [id number] [place] [address] 24 Jan, 2012 [facility] [place] [facility] [address] [id number] [place] [address] Jan, [facility] [place] [facility] [address] [id number] [place] [address] Dec, [facility] [place] [facility] [address] [id number] [place] [address] Dec, [facility] [place] [facility] [address] [id number] [place] [address] Nov, [facility] [place] [facility] [address] [id number] [place] [address] Oct, [facility] [place] [facility] [address] [id number] [place] [address] Oct, [facility] [place] [facility] [address] [id number] [place] [address] Oct, [facility] [place] [facility] [address] [id number] [place] [address] September, [facility] [place] [facility] [address] [id number] [place] [address] September, [facility] [place] [facility] [address] [id number] [place] [address] September, [facility] [place] [facility] [address] [id number] [place] [address] September, [facility] [place] [facility] [address] [id number] [place] [address] September, [facility] [place] [facility] [address] [id number] [place] [address] September, [facility] [place] [facility] [address] [id number] [place] [address] September, [facility] [place] [facility] [address] [id number] [place] [address] Jul, [facility] [place] [facility] [address] [id number] [place] [address] Jul, [facility] [place] [facility] [address] [id number] [place] [address] Jun, [facility] [place] [facility] [address] [id number] [place] [address] Jun, [facility] [place] [facility] [address] [id number] [place] [address] Jun, [facility] [place] [facility] [address] [id number] [place] [address] May, [facility] [place] [facility] [address] [id number] [place] [address] Mar, [facility] [place] [facility] [address] [id number] [place] [address] Mar, [facility] [place] [facility] [address] [id number], [place] [address] Mar, [facility] [place] [facility] [address] [id number] [place] [address] Feb, [facility] [place] [facility] [address] [id number] [place] [address] Feb, [facility] [place] [facility] [address] [id number] [place] [address] Dec, [facility] [place] [facility] [address] [id number], [place] [address] May, [facility] [address] [id number] [address] Apr, [facility] [address] [id number], [place] [address] Apr, [facility] [address] [id number], [place] [address] Apr, [facility] [address] [id number], [place] [address] Apr, [facility] [address] [id number], [place] [address] Feb, [facility] [address] [id number], [place] [address] Oct, IMMUNIZATIONS No Known Immunizations SOCIAL HISTORY Never Assessed REASON FOR VISIT lab orders PLAN OF CARE VITAL SIGNS MEDICATIONS Unknown [...]
--- OUTSIDE RECORDS SUMMARY | 2018-12-05 11:56 | XMS REPORT ---
Author Author ERIK SAMAYOA [facility] Address [address] [place] [address] Care Team Providers Care Dead Mail Checker Name Role Phone ERIK SAMAYOA Unavailable PROBLEMS Type Condition ICD9-CM Code BBS07-AY Code Onset Dates Condition Status SNOMED Code Problem Mood disorder F39 Active 63621641 Problem PVD (peripheral vascular disease) I73.9 Active 592130866 Problem Amput leg, unil NOS-comp S88.919A Active 60884792 Problem Acute cystitis with hematuria N30.01 Active 31406132 Problem Major depressive disorder, single episode, unspecified F32.9 Active 41939153 Problem Anticoagulant long-term use Z79.01 Active 346521523 Problem Vitamin B12 deficiency E53.8 Dec, Active 679846665 Problem Chronic obstructive pulmonary disease, unspecified COPD type J44.9 Active 43131316 Problem Congestive heart failure, unspecified congestive heart failure chronicity, unspecified congestive heart failure type I50.9 Active 76745285 Problem Chronic fatigue, unspecified R53.82 Active 146838735 Problem Peripheral vascular disease I73.9 Active 260209151 Problem Chronic fatigue R53.82 Active 13407664 ALLERGIES No Information ENCOUNTERS Encounter Location Date Diagnosis [facility] [id number] [address] Dec, Major depressive disorder, single episode, unspecified F32.9 [facility] [id number] [address] Nov, Vitamin B 12 deficiency E53.8 [facility] [id number] [place] [address] Nov, Anticoagulant long-term use Z79.01 ; Mood disorder F39 ; Chronic obstructive pulmonary disease, unspecified COPD type J44.9 ; Peripheral vascular disease I73.9 and Chronic fatigue R53.82 [place] [address] [address] Nov, Mood disorder F39 [place] [id number] [place] [address] Nov, [facility] [id number] [place] [address] Oct, Mood disorder F39 ; Chronic obstructive pulmonary disease, unspecified COPD type J44.9 ; Peripheral vascular disease I73.9 and Chronic fatigue R53.82 [place] [id number] [place] [address] September, Anticoagulant long-term use Z79.01 and Congestive heart failure, unspecified congestive heart failure chronicity, unspecified congestive heart failure type I50.9 [place] [id number] [place] [address] September, Vitamin B12 deficiency E53.8 [place] [id number] [place] [address] September, Anticoagulant long-term use Z79.01 [place] [id number] [place] [address] September, Anticoagulant long-term use Z79.01 and Congestive heart failure, unspecified congestive heart failure chronicity, unspecified congestive heart failure type I50.9 [place] [id number] [place] [address] Aug, Chronic fatigue, unspecified R53.82 [place] [id number] [place] [address] Aug, Anticoagulant long-term use Z79.01 [place] [id number] [place] [address] Aug, Nausea R11.0 and Weakness R53.1 [place] [id number] [place] [address] Aug, [facility] [address] [address] Aug, Hematuria R31.9 and Acute cystitis with hematuria N30.01 [place] [id number] [place] [address] Aug, [place] [id number] [place] [address] Jul, Vitamin B 12 deficiency E53.8 [place] [id number] [place] [address] Jul, Anticoagulant long-term use Z79.01 [place] [id number] [place] [address] Jun, Chronic fatigue, unspecified R53.82 [place] [id number] [place] [address] Jun, Anticoagulant long-term use Z79.01 [place] [id number] [place] [address] May, Flu-like symptoms R68.89 and Influenza A J10.1 [place] [id number] [place] [address] May, [place] [id number] [place] [address] May, Chronic fatigue, unspecified R53.82 [place] [id number] [place] [address] May, Anticoagulant long-term use Z79.01 [place] [id number] [place] [address] 15 Apr, 2017 Medicare welcome exam Z00.00 ; Anticoagulant long-term use Z79.01 ; Medicare annual wellness visit, initial Z00.00 ; Medicare annual wellness visit, subsequent Z00.00 and Chronic fatigue, unspecified R53.82 [place] [id number] [place] [address] 15 Mar, 2017 Chronic fatigue, unspecified R53.82 [place] [id number] [place] [address] 07 Mar, 2017 Anticoagulant long-term use Z79.01 [facility] [id number] [place] [address] 07 Mar, 2017 Anticoagulant long-term use Z79.01 and Hematuria R31.9 [place] [id number] [place] [address] Mar, Hematuria R31.9 [place] [address] [address] Feb, Anticoagulant long-term use Z79.01 [place] [id number] [place] [address] Feb, Anticoagulant long-term use Z79.01 [place] [id number] [place] [address] Feb, Anticoagulant long-term use Z79.01 [place] [id number] [place] [address] Feb, Chronic fatigue, unspecified R53.82 [place] [id number] [place] [address] Feb, Anticoagulant long-term use Z79.01 [facility] [id number] [place] [address] 10 Feb, 2017 Congestive heart failure, unspecified congestive heart failure chronicity, unspecified congestive heart failure type I50.9 [place] [id number] [place] [address] 09 Feb, 2017 Congestive heart failure, unspecified congestive heart failure chronicity, unspecified congestive heart failure type I50.9 [place] [id number] [place] [address] Feb, [place] [id number] [place] [address] Jan, Anticoagulant long-term use Z79.01 [facility] [id number] [place] [address] Jan, [place] [id number] [place] [address] Jan, Anticoagulant long-term use Z79.01 and Hematuria R31.9 [place] [id number] [place] [address] Jan, Anticoagulant long-term use Z79.01 [place] [id number] [place] [address] Jan, Chronic fatigue, unspecified R53.82 [place] [id number] [place] [address] Jan, Anticoagulant long-term use Z79.01 [place] [id number] [place] [address] Dec, Chronic fatigue, unspecified R53.82 [place] [id number] [place] [address] Dec, [place] [id number] [place] [address] Dec, Chronic fatigue, unspecified R53.82 and Encounter for therapeutic drug level monitoring Z51.81 [place] [id number] [place] [address] Nov, Encounter for therapeutic drug level monitoring Z51.81 [place] [id number] [place] [address] Nov, Hematuria R31.9 [place] [id number] [place] [address] Nov, Hematuria R31.9 ; Anticoagulant long-term use Z79.01 and PVD (peripheral vascular disease) I73.9 [facility] [id number] [place] [address] Nov, Anticoagulant long-term use Z79.01 [facility] [id number] [place] [address] Nov, Anticoagulant long-term use Z79.01 [facility] [id number] [place] [address] Nov, [facility] [id number] [place] [address] Nov, Hematuria R31.9 and Acute cystitis with hematuria N30.01 [facility] [address] [id number] Oct, [place] [id number] [place] [address] Oct, [place] [id number] [place] [address] Oct, Hematuria R31.9 [facility] [id number] [place] [address] Oct, Hematuria R31.9 [facility] [id number] [place] [address] Oct, Anticoagulant long-term use Z79.01 [facility] [id number] [place] [address] Oct, Anticoagulant long-term use Z79.01 [facility] [id number] [place] [address] Oct, [facility] [address] [address] September, PVD (peripheral vascular disease) I73.9 ; Amput leg, unil NOS-comp S88.919A ; Acute cystitis without hematuria N30.00 ; Anticoagulant long-term use Z79.01 and Hypokalemia E87.6 [facility] [id number] [place] [address] Aug, Anticoagulant long-term use Z79.01 and Bronchitis J40 [facility] [id number] [place] [address] Jul, [facility] [id number] [place] [address] Jul, Anticoagulant long-term use Z79.01 and Mood disorder F39 [facility] [address] [address] Jul, [facility] [address] [address] May, [facility] [id number] [place] [address] May, Hypokalemia E87.6 [place] [address] [address] May, Mood disorder F39 [facility] [id number] [place] [address] May, Anticoagulant long-term use Z79.01 [facility] [id number] [place] [address] Apr, Anticoagulant long-term use Z79.01 [facility] [id number] [place] [address] Apr, Anticoagulant long-term use Z79.01 [facility] [id number] [place] [address] Apr, [facility] [address] [address] Apr, Anticoagulant long-term use Z79.01 [facility] [id number] [place] [address] Apr, Anticoagulant long-term use Z79.01 [facility] [id number] [place] [address] Apr, Anticoagulant long-term use Z79.01 [facility] [id number] [place] [address] Mar, [facility] [id number] [place] [address] Mar, [facility] [address] [address] Mar, Anticoagulant long-term use Z79.01 [facility] [address] [address] Feb, [facility] [address] [address] Feb, [facility] [address] [address] Feb, Anticoagulant long-term use Z79.01 [facility] [id number] [place] [address] Feb, Anticoagulant long-term use Z79.01 [facility] [id number] [place] [address] Jan, [facility] [id number] [place] [address] Jan, Anticoagulant long-term use Z79.01 [facility] [id number] [place] [address] Jan, Anticoagulant long-term use Z79.01 [facility] [address] [address] Dec, Anticoagulant long-term use Z79.01 [facility] [id number] [place] [address] Dec, Anticoagulant long-term use Z79.01 [facility] [address] [place] [address] Dec, Anticoagulant long-term use Z79.01 and Mood disorder F39 [facility] [id number] [place] [address] Dec, [facility] [id number] [place] [address] Nov, [facility] [id number] [place] [address] Nov, Anticoagulant long-term use Z79.01 [facility] [id number] [place] [address] Nov, Anticoagulant long-term use Z79.01 [facility] [id number] [place] [address] September, Anticoagulant long-term use Z79.01 [facility] [id number] [place] [address] Jul, Anticoagulant long-term use Z79.01 [facility] [id number] [place] [address] May, Anticoagulant long-term use Z79.01 [facility] [id number] [place] [address] May, Anticoagulant long-term use Z79.01 [facility] [id number] [place] [address] May, Anticoagulant long-term use Z79.01 [facility] [id number] [place] [address] May, Anticoagulant long-term use Z79.01 [facility] [id number] [place] [address] May, [facility] [id number] [place] [address] May, Congestive heart failure, unspecified congestive heart failure chronicity, unspecified congestive heart failure type I50.9 and Pulmonary congestion R09.89 [facility] [address] [address] Apr, Cough R05 ; Congestive heart failure, unspecified congestive heart failure chronicity, unspecified congestive heart failure type I50.9 and Pulmonary congestion R09.89 [facility] [address] [address] Mar, Hematuria R31.9 [facility] [address] [address] Mar, [place] [address] [address] Mar, Anticoagulant long-term use Z79.01 [place] [address] [address] Mar, [place] [address] [address] Mar, Hematuria R31.9 and Infective urethritis N34.2 [place] [address] [address] Mar, Anticoagulant long-term use Z79.01 [place] [address] [address] Mar, Anticoagulant long-term use Z79.01 [place] [address] [address] Mar, [place] [address] [address] Mar, Anticoagulant long-term use Z79.01 [place] [address] [address] Feb, Peristomal skin breakdown L98.499 [place] [address] [address] Feb, [place] [address] [facility] [id number] [address] Feb, UTI (urinary tract infection) N39.0 [facility] [address] [facility] [id number] [address] Jan, [facility] [id number] [address] Dec, High risk medication use V58.69 [facility] [address] [address] Nov, High risk medication use V58.69 [facility] [id number] [address] Nov, [facility] [id number] [address] Nov, UTI (lower urinary tract infection) 599.0 ; URI, acute 465.9 ; Insomnia 780.52 ; Anxiety 300.00 and Lower limb amputation, unspecified level V49.70 [facility] [id number] [address] Oct, UTI (lower urinary tract infection) 599.0 ; URI, acute 465.9 ; Insomnia 780.52 ; Anxiety 300.00 and Lower limb amputation, unspecified level V49.70 [facility] [id number] [address] Aug, [facility] [address] [facility] [id number] [place] [address] Aug, [facility] [id number] [address] Jul, [facility] [id number] [address] Jul, [facility] [id number] [address] Jun, [facility] [address] [place] [address] Jun, [facility] [place] [facility] [address] [id number] [place] [address] Mar, [facility] [place] [facility] [address] [id number] [place] [address] Mar, [facility] [place] [facility] [address] [id number] [place] [address] Mar, [facility] [place] [facility] [address] [id number] [place] [address] Mar, [facility] [place] [facility] [address] [id number] [place] [address] Mar, [facility] [place] [facility] [address] [id number] [place] [address] Feb, [facility] [place] [facility] [address] [id number] [place] [address] Feb, [facility] [place] [facility] [address] [id number] [place] [address] Feb, [facility] [place] [facility] [address] [id number] [place] [address] Feb, [facility] [place] [facility] [address] [id number] [place] [address] Feb, [facility] [place] [facility] [address] [id number] [place] [address] 16 Feb, 2014 [facility] [place] [facility] [address] [id number] [place] [address] 16 Feb, 2014 [facility] [place] [facility] [address] [id number] [place] [address] Feb, [facility] [place] [facility] [address] [id number] [place] [address] Feb, [facility] [place] [facility] [address] [id number] [place] [address] Feb, [facility] [place] [facility] [address] [id number] [place] [address] Feb, [facility] [place] [facility] [address] [id number] [place] [address] Feb, [facility] [place] [facility] [address] [id number] [place] [address] Feb, [facility] [place] [facility] [address] [id number] [place] [address] Feb, [facility] [place] [facility] [address] [id number] [place] [address] Feb, [facility] [place] [facility] [address] [id number] [place] [address] Feb, [facility] [place] [facility] [address] [id number] [place] [address] Jan, [facility] [place] [facility] [address] [id number] [place] [address] Jan, [facility] [place] [facility] [address] [id number] [place] [address] Jan, [facility] [place] [facility] [address] [id number] [place] [address] Jan, [facility] [place] [facility] [address] [id number] [place] [address] Jan, [facility] [place] [facility] [address] [id number] [place] [address] Nov, [facility] [place] [facility] [address] [id number] [place] [address] Nov, [facility] [place] [facility] [address] [id number] [place] [address] Nov, [facility] [place] [facility] [address] [id number] [place] [address] Nov, [facility] [place] [facility] [address] [id number] [place] [address] Nov, [facility] [place] [facility] [address] [id number] [place] [address] Nov, [facility] [place] [facility] [address] [id number] [place] [address] Oct, [facility] [place] [facility] [address] [id number] [place] [address] Oct, [facility] [place] [facility] [address] [id number] [place] [address] Oct, [facility] [place] [facility] [address] [id number] [place] [address] Oct, [facility] [place] [facility] [address] [id number] [place] [address] Oct, [facility] [place] [facility] [address] [id number] [place] [address] Oct, [facility] [place] [facility] [address] [id number] [place] [address] Oct, [facility] [place] [facility] [address] [id number] [place] [address] September, [facility] [place] [facility] [address] [id number] [place] [address] September, [facility] [place] [facility] [address] [id number] [place] [address] September, [facility] [place] [facility] [address] [id number] [place] [address] September, [facility] [place] [facility] [address] [id number] [place] [address] September, [facility] [place] [facility] [address] [id number] [place] [address] September, [facility] [place] [facility] [address] [id number] [place] [address] September, [facility] [place] [facility] [address] [id number] [place] [address] September, [facility] [place] [facility] [address] [id number] [place] [address] Aug, [facility] [place] [facility] [address] [id number] [place] [address] Aug, [facility] [place] [facility] [address] [id number] [place] [address] Aug, [facility] [place] [facility] [address] [id number] [place] [address] Aug, [facility] [place] [facility] [address] [id number] [place] [address] Jul, [facility] [place] [facility] [address] [id number] [place] [address] Jul, [facility] [place] [facility] [address] [id number] [place] [address] Jun, [facility] [place] [facility] [address] [id number] [place] [address] Jun, [facility] [place] [facility] [address] [id number] [place] [address] Jun, [facility] [place] [facility] [address] [id number] [place] [address] Jun, [facility] [place] [facility] [address] [id number] [place] [address] Jun, [facility] [place] [facility] [address] [id number] [place] [address] Jun, [facility] [place] [facility] [address] [id number] [place] [address] May, [facility] [place] [facility] [address] [id number] [place] [address] May, [facility] [place] [facility] [address] [id number] [place] [address] May, [facility] [place] [facility] [address] [id number] [place] [address] May, [facility] [place] [facility] [address] [id number] [place] [address] May, [facility] [place] [facility] [address] [id number] [place] [address] May, [facility] [place] [facility] [address] [id number] [place] [address] Feb, [facility] [place] [facility] [address] [id number] [place] [address] Feb, [facility] [place] [facility] [address] [id number] [place] [address] Feb, [facility] [place] [facility] [address] [id number] [place] [address] Feb, [facility] [place] [facility] [address] [id number] [place] [address] Jan, [facility] [place] [facility] [address] [id number] [place] [address] Jan, [facility] [place] [facility] [address] [id number] [place] [address] Jan, [facility] [place] [facility] [address] [id number] [place] [address] Dec, [facility] [place] [facility] [address] [id number] [place] [address] Nov, [facility] [place] [facility] [address] [id number] [place] [address] Nov, [facility] [place] [facility] [address] [id number] [place] [address] Nov, [facility] [place] [facility] [address] [id number] [place] [address] Nov, [facility] [place] [facility] [address] [id number] [place] [address] Nov, [facility] [address] [id number] [place] [address] Oct, [facility] [address] [id number] [place] [address] September, [facility] [address] [id number] [place] [address] September, [facility] [address] [id number] [place] [address] Aug, [facility] [address] [id number] [place] [address] Aug, [facility] [address] [id number] [place] [address] Jul, [facility] [address] [id number] [place] [address] Jul, [facility] [address] [id number] [place] [address] Jul, [facility] [address] [id number] [place] [address] Jul, [facility] [address] [id number] [place] [address] Jun, [facility] [address] [id number] [place] [address] Jun, [facility] [address] [id number] [place] [address] Jun, [facility] [address] [id number] [place] [address] May, [facility] [address] [id number] [place] [address] May, [facility] [address] [id number] [place] [address] May, [facility] [place] [facility] [address] [id number] [place] [address] May, [facility] [place] [facility] [address] [id number] [place] [address] Apr, [facility] [place] [facility] [address] [facility] [id number] [place] [address] Apr, [facility] [place] [facility] [address] [id number] [place] [address] Apr, [facility] [place] [facility] [address] [id number] [place] [address] Apr, [facility] [place] [facility] [address] [id number] [place] [address] Apr, [facility] [place] [facility] [address] [facility] [id number] [place] [address] Apr, [facility] [place] [facility] [address] [id number] [place] [address] Mar, [facility] [place] [facility] [address] [id number] [place] [address] Mar, [facility] [place] [facility] [address] [facility] [id number] [place] [address] Mar, [facility] [place] [facility] [address] [id number] [place] [address] Mar, [facility] [place] [facility] [address] [id number] [place] [address] Mar, [facility] [place] [facility] [address] [id number] [place] [address] Mar, [facility] [place] [facility] [address] [facility] [id number] [place] [address] Feb, [facility] [place] [facility] [address] [facility] [id number] [place] [address] Feb, [facility] [place] [facility] [address] [id number] [place] [address] Feb, [facility] [place] [facility] [address] [id number] [place] [address] Feb, [facility] [place] [facility] [address] [id number] [place] [address] Jan, [facility] [place] [facility] [address] [id number] [place] [address] Jan, [facility] [place] [facility] [address] [id number] [place] [address] 24 Jan, 2012 [facility] [place] [facility] [address] [id number] [place] [address] Jan, [facility] [place] [facility] [address] [id number] [place] [address] Dec, [facility] [place] [facility] [address] [id number] [place] [address] Dec, [facility] [place] [facility] [address] [id number] [place] [address] Nov, [facility] [place] [facility] [address] [id number] [place] [address] Oct, [facility] [place] [facility] [address] [id number] [place] [address] Oct, [facility] [place] [facility] [address] [id number] [place] [address] Oct, [facility] [place] [facility] [address] [id number] [place] [address] September, [facility] [place] [facility] [address] [id number] [place] [address] September, [facility] [place] [facility] [address] [id number] [place] [address] September, [facility] [place] [facility] [address] [id number] [place] [address] September, [facility] [place] [facility] [address] [id number] [place] [address] September, [facility] [place] [facility] [address] [id number] [place] [address] September, [facility] [place] [facility] [address] [id number] [place] [address] September, [facility] [place] [facility] [address] [id number] [place] [address] Jul, [facility] [place] [facility] [address] [id number] [place] [address] Jul, [facility] [place] [facility] [address] [id number] [place] [address] Jun, [facility] [place] [facility] [address] [id number] [place] [address] Jun, [facility] [place] [facility] [address] [id number] [place] [address] Jun, [facility] [place] [facility] [address] [id number] [place] [address] May, [facility] [place] [facility] [address] [id number] [place] [address] Mar, [facility] [place] [facility] [address] [id number] [place] [address] Mar, [facility] [place] [facility] [address] [id number] [place] [address] Mar, [facility] [place] [facility] [address] [id number] [place] [address] Feb, [facility] [place] [facility] [address] [id number] [place] [address] Feb, [facility] [place] [facility] [address] [id number] [place] [address] Dec, [facility] [place] [facility] [address] [id number] [place] [address] May, [facility] [address] [id number] [address] Apr, [facility] [address] [id number] [address] Apr, [facility] [address] [id number] [address] Apr, [facility] [address] [id number] [address] Apr, [facility] [address] [id number] [address] Feb, [facility] [address] [id number] [address] Oct, IMMUNIZATIONS Vaccine Route Administration Date Status B12, VITAMIN (UP TO 1000 MCG) IM Intramuscular September 25, 2017 Administered SOCIAL HISTORY Never Assessed REASON FOR VISIT B12 injection- [facility] PLAN OF CARE VITAL SIGNS MEDICATIONS Unknown Medications RESULTS No Results PROCEDURES Procedure Date Ordered Result Body Site B12, VITAMIN (UP TO 1000 MCG) September 25, 2017 THER/PROPH/DIAG INJ, SC/IM September 25, 2017 INSTRUCTIONS MEDICATIONS ADMINISTERED No [...]
--- OUTSIDE RECORDS SUMMARY | 2018-12-05 11:57 | XMS REPORT ---
Author Author ERIK SAMAYOA Organization [facility] Address [address] [place] [address] Care Team Providers Care Multimedia Manager Name Role Phone ERIK SAMAYOA Unavailable PROBLEMS Type Condition ICD9-CM Code [id number] Code Onset Dates Condition Status SNOMED Code Problem Mood disorder F39 Active 13068616 Problem PVD (peripheral vascular disease) I73.9 Active 248452298 Problem Amput leg, unil NOS-comp S88.919A Active 83241897 Problem Acute cystitis with hematuria N30.01 Active 53139195 Problem Major depressive disorder, single episode, unspecified F32.9 Active 98654999 Problem Anticoagulant long-term use Z79.01 Active 815579494 Problem Vitamin B12 deficiency E53.8 Dec, Active 561672575 Problem Chronic obstructive pulmonary disease, unspecified COPD type J44.9 Active 89289355 Problem Congestive heart failure, unspecified congestive heart failure chronicity, unspecified congestive heart failure type I50.9 Active 20349480 Problem Chronic fatigue, unspecified R53.82 Active 359428973 Problem Peripheral vascular disease I73.9 Active 157048405 Problem Chronic fatigue R53.82 Active 08178375 ALLERGIES No Information ENCOUNTERS Encounter Location Date Diagnosis [place] [address] [id number], [place] [address] Dec, [facility] [id number], [place] [address] Nov, Vitamin B 12 deficiency E53.8 [facility] [id number] [place] [address] Nov, Anticoagulant long-term use Z79.01 ; Mood disorder F39 ; Chronic obstructive pulmonary disease, unspecified COPD type J44.9 ; Peripheral vascular disease I73.9 and Chronic fatigue R53.82 [facility] [id number] [place] [address] Nov, Mood disorder F39 [facility] [id number] [place] [address] Nov, [facility] [id number] [place] [address] Oct, Mood disorder F39 ; Chronic obstructive pulmonary disease, unspecified COPD type J44.9 ; Peripheral vascular disease I73.9 and Chronic fatigue R53.82 [facility] [id number] [place] [address] September, Anticoagulant long-term use Z79.01 and Congestive heart failure, unspecified congestive heart failure chronicity, unspecified congestive heart failure type I50.9 [place] [id number] [place] [address] September, Vitamin B12 deficiency E53.8 [place] [id number] [place] [address] September, Anticoagulant long-term use Z79.01 [place] [id number] [place] [address] September, Anticoagulant long-term use Z79.01 and Congestive heart failure, unspecified congestive heart failure chronicity, unspecified congestive heart failure type I50.9 [place] [id number] [place] [address] Aug, Chronic fatigue, unspecified R53.82 [facility] [id number] [place] [address] Aug, Anticoagulant long-term use Z79.01 [place] [id number] [place] [address] Aug, Nausea R11.0 and Weakness R53.1 [place] [id number] [place] [address] Aug, [facility] IN [facility] [address] [address] 04 Aug, 2017 Hematuria R31.9 and Acute cystitis with hematuria N30.01 [place] [address] [address] Aug, [place] [address] [address] Jul, Vitamin B 12 deficiency E53.8 [place] [address] [address] Jul, Anticoagulant long-term use Z79.01 [place] [address] [address] Jun, Chronic fatigue, unspecified R53.82 [place] [address] [address] Jun, Anticoagulant long-term use Z79.01 [place] [address] [address] May, Flu-like symptoms R68.89 and Influenza A J10.1 [place] [address] [address] May, [place] [id number] [place] [address] May, Chronic fatigue, unspecified R53.82 [place] [id number] [place] [address] May, Anticoagulant long-term use Z79.01 [place] [id number] [place] [address] 15 Apr, 2017 Medicare welcome exam Z00.00 ; Anticoagulant long-term use Z79.01 ; Medicare annual wellness visit, initial Z00.00 ; Medicare annual wellness visit, subsequent Z00.00 and Chronic fatigue, unspecified R53.82 [place] [address] [address] Mar, Chronic fatigue, unspecified R53.82 [place] [address], [place] [address] Mar, Anticoagulant long-term use Z79.01 [facility] [id number] [place] [address] Mar, Anticoagulant long-term use Z79.01 and Hematuria R31.9 [place] [id number] [place] [address] Mar, Hematuria R31.9 [place] [id number] [place] [address] Feb, Anticoagulant long-term use Z79.01 [place] [id number] [place] [address] Feb, Anticoagulant long-term use Z79.01 [place] [id number] [place] [address] Feb, Anticoagulant long-term use Z79.01 [place] [id number] [place] [address] Feb, Chronic fatigue, unspecified R53.82 [place] [id number] [place] [address] Feb, Anticoagulant long-term use Z79.01 [place] [id number] [place] [address] Feb, Congestive heart failure, unspecified congestive heart failure chronicity, unspecified congestive heart failure type I50.9 [place] [id number] [place] [address] Feb, Congestive heart failure, unspecified congestive heart failure chronicity, unspecified congestive heart failure type I50.9 [place] [id number] [place] [address] Feb, [place] [id number] [place] [address] Jan, Anticoagulant long-term use Z79.01 [place] [id number] [place] [address] Jan, [place] [id number] [place] [address] Jan, Anticoagulant long-term use Z79.01 and Hematuria R31.9 [place] [id number] [place] [address] Jan, Anticoagulant long-term use Z79.01 [place] [id number] [place] [address] Jan, Chronic fatigue, unspecified R53.82 [place] [id number] [place] [address] Jan, Anticoagulant long-term use Z79.01 [place] [id number] [place] [address] Dec, Chronic fatigue, unspecified R53.82 [place] [id number] [place] [address] Dec, [place] [id number] [place] [address] Dec, Chronic fatigue, unspecified R53.82 and Encounter for therapeutic drug level monitoring Z51.81 [place] [id number] [place] [address] Nov, Encounter for therapeutic drug level monitoring Z51.81 [place] [id number] [place] [address] Nov, Hematuria R31.9 [place] [id number] [place] [address] Nov, Hematuria R31.9 ; Anticoagulant long-term use Z79.01 and PVD (peripheral vascular disease) I73.9 [place] [address] [id number] [place] [address] Nov, Anticoagulant long-term use Z79.01 [facility] [id number] [place] [address] Nov, Anticoagulant long-term use Z79.01 [facility] [id number] [place] [address] Nov, [facility] [address] [address] Nov, Hematuria R31.9 and Acute cystitis with hematuria N30.01 [facility] [address] [id number] Oct, [facility] [id number] [place] [address] Oct, [place] [address] [address] Oct, Hematuria R31.9 [facility] [id number] [place] [address] Oct, Hematuria R31.9 [facility] [address] [address] Oct, Anticoagulant long-term use Z79.01 [facility] [id number] [place] [address] Oct, Anticoagulant long-term use Z79.01 [facility] [id number] [place] [address] Oct, [facility] [id number] [place] [address] September, PVD (peripheral vascular disease) I73.9 ; Amput leg, unil NOS-comp S88.919A ; Acute cystitis without hematuria N30.00 ; Anticoagulant long-term use Z79.01 and Hypokalemia E87.6 [place] [address] [address] Aug, Anticoagulant long-term use Z79.01 and Bronchitis J40 [facility] [address] [address] Jul, [facility] [address] [address] Jul, Anticoagulant long-term use Z79.01 and Mood disorder F39 [facility] [address] [address] Jul, [facility] [address] [address] May, [facility] [address] [address] May, Hypokalemia E87.6 [place] [address] [address] May, Mood disorder F39 [facility] [address] [address] May, Anticoagulant long-term use Z79.01 [facility] [address] [address] Apr, Anticoagulant long-term use Z79.01 [facility] [address] [address] Apr, Anticoagulant long-term use Z79.01 [facility] [address] [address] Apr, [facility] [address] [address] Apr, Anticoagulant long-term use Z79.01 [facility] [address] [address] Apr, Anticoagulant long-term use Z79.01 [facility] [address] [place] [address] Apr, Anticoagulant long-term use Z79.01 [facility] [id number] [place] [address] Mar, [facility] [id number] [place] [address] Mar, [facility] [address] [address] Mar, Anticoagulant long-term use Z79.01 [facility] [id number] [place] [address] Feb, [facility] [address] [address] Feb, [facility] [id number] [place] [address] Feb, Anticoagulant long-term use Z79.01 [facility] [id number] [place] [address] Feb, Anticoagulant long-term use Z79.01 [facility] [id number] [place] [address] Jan, [facility] [id number] [place] [address] Jan, Anticoagulant long-term use Z79.01 [facility] [id number] [place] [address] Jan, Anticoagulant long-term use Z79.01 [facility] [id number] [place] [address] Dec, Anticoagulant long-term use Z79.01 [facility] [id number] [place] [address] Dec, Anticoagulant long-term use Z79.01 [facility] [id number] [place] [address] Dec, Anticoagulant long-term use Z79.01 and Mood disorder F39 [facility] [id number] [place] [address] Dec, [facility] [id number] [place] [address] Nov, [facility] [id number] [place] [address] Nov, Anticoagulant long-term use Z79.01 [facility] [id number] [place] [address] Nov, Anticoagulant long-term use Z79.01 [facility] [id number] [place] [address] September, Anticoagulant long-term use Z79.01 [facility] [id number] [place] [address] Jul, Anticoagulant long-term use Z79.01 [facility] [id number] [place] [address] May, Anticoagulant long-term use Z79.01 [facility] [id number] [place] [address] May, Anticoagulant long-term use Z79.01 [facility] [id number] [place] [address] May, Anticoagulant long-term use Z79.01 [facility] [id number] [place] [address] May, Anticoagulant long-term use Z79.01 [facility] [id number] [place] [address] May, [facility] [id number] [place] [address] May, Congestive heart failure, unspecified congestive heart failure chronicity, unspecified congestive heart failure type I50.9 and Pulmonary congestion R09.89 [facility] [id number] [place] [address] Apr, Cough R05 ; Congestive heart failure, unspecified congestive heart failure chronicity, unspecified congestive heart failure type I50.9 and Pulmonary congestion R09.89 [place] [address] [address] Mar, Hematuria R31.9 [facility] [address] [address] Mar, [place] [address] [address] Mar, Anticoagulant long-term use Z79.01 [place] [address] [address] Mar, [place] [address] [address] Mar, Hematuria R31.9 and Infective urethritis N34.2 [place] [address] [address] Mar, Anticoagulant long-term use Z79.01 [place] [address] [address] Mar, Anticoagulant long-term use Z79.01 [place] [address] [address] Mar, [place] [address] [address] Mar, Anticoagulant long-term use Z79.01 [place] [address] [address] Feb, Peristomal skin breakdown L98.499 [place] [address] [address] Feb, [place] [address] [address] Feb, UTI (urinary tract infection) N39.0 [facility] [address], [place] [address] Jan, [facility] [id number], [place] [address] Dec, High risk medication use V58.69 [facility] [address], [place] [address] Nov, High risk medication use V58.69 [facility] [id number], [place] [address] Nov, [facility] [address], [place] [address] Nov, UTI (lower urinary tract infection) 599.0 ; URI, acute 465.9 ; Insomnia 780.52 ; Anxiety 300.00 and Lower limb amputation, unspecified level V49.70 [facility] [id number] [address] Oct, UTI (lower urinary tract infection) 599.0 ; URI, acute 465.9 ; Insomnia 780.52 ; Anxiety 300.00 and Lower limb amputation, unspecified level V49.70 [facility] [id number], [place] [address] Aug, [facility] [id number] [address] Aug, [facility] [id number], [place] [address] Jul, [facility] [address], [place] [address] Jul, [facility] [id number], [place] [address] Jun, [facility] [id number], [place] [address] Jun, [facility] [place] [facility] [address] [id number] [place] [address] Mar, [facility] [place] [facility] [address] [id number] [place] [address] Mar, [facility] [place] [facility] [address] [facility] [id number] [place] [address] Mar, [facility] [place] [facility] [address] [id number] [place] [address] Mar, [facility] [place] [facility] [address] [id number] [place] [address] Mar, [facility] [place] [facility] [address] [id number] [place] [address] Feb, [facility] [place] [facility] [address] [id number] [place] [address] Feb, [facility] [place] [facility] [address] [id number], [place] [address] Feb, [facility] [place] [facility] [address] [id number], [place] [address] Feb, [facility] [place] [facility] [address] [id number], [place] [address] Feb, [facility] [place] [facility] [address] [id number], [place] [address] 16 Feb, 2014 [facility] [place] [facility] [address] [id number], [place] [address] 16 Feb, 2014 [facility] [place] [facility] [address] [id number], [place] [address] Feb, [facility] [place] [facility] [address] [id number], [place] [address] Feb, [facility] [place] [facility] [address] [id number], [place] [address] Feb, [facility] [place] [facility] [address] [id number] [place] [address] Feb, [facility] [place] [facility] [address] [id number] [place] [address] Feb, [facility] [place] [facility] [address] [id number] [place] [address] Feb, [facility] [place] [facility] [address] [id number] [place] [address] Feb, [facility] [place] [facility] [address] [id number] [place] [address] Feb, [facility] [place] [facility] [address] [id number] [place] [address] Feb, [facility] [place] [facility] [address] [id number] [place] [address] Jan, [facility] [place] [facility] [address] [id number] [place] [address] Jan, [facility] [place] [facility] [address] [id number] [place] [address] Jan, [facility] [place] [facility] [address] [id number] [place] [address] Jan, [facility] [place] [facility] [address] [id number] [place] [address] Jan, [facility] [place] [facility] [address] [id number] [place] [address] Nov, [facility] [place] [facility] [address] [id number] [place] [address] Nov, [facility] [place] [facility] [address] [id number] [place] [address] Nov, [facility] [place] [facility] [address] [id number] [place] [address] Nov, [facility] [place] [facility] [address] [id number] [place] [address] Nov, [facility] [place] [facility] [address] [id number] [place] [address] Nov, [facility] [place] [facility] [address] [id number] [place] [address] Oct, [facility] [place] [facility] [address] [id number] [place] [address] Oct, [facility] [place] [facility] [address] [id number] [place] [address] Oct, [facility] [place] [facility] [address] [id number] [place] [address] Oct, [facility] [place] [facility] [address] [id number] [place] [address] Oct, [facility] [place] [facility] [address] [id number] [place] [address] Oct, [facility] [place] [facility] [address] [id number] [place] [address] Oct, [facility] [place] [facility] [address] [id number] [place] [address] September, [facility] [place] [facility] [address] [id number] [place] [address] September, [facility] [place] [facility] [address] [id number] [place] [address] September, [facility] [place] [facility] [address] [id number] [place] [address] September, [facility] [place] [facility] [address] [id number] [place] [address] September, [facility] [place] [facility] [address] [id number] [place] [address] September, [facility] [place] [facility] [address] [id number] [place] [address] September, [facility] [place] [facility] [address] [id number], [place] [address] September, [facility] [place] [facility] [address] [id number] [place] [address] Aug, [facility] [place] [facility] [address] [id number] [place] [address] Aug, [facility] [place] [facility] [address] [id number] [place] [address] Aug, [facility] [place] [facility] [address] [id number] [place] [address] Aug, [facility] [place] [facility] [address] [id number] [place] [address] Jul, [facility] [place] [facility] [address] [id number] [place] [address] Jul, [facility] [place] [facility] [address] [facility] [id number] [place] [address] Jun, [facility] [place] [facility] [address] [id number] [place] [address] Jun, [facility] [place] [facility] [address] [id number] [place] [address] Jun, [facility] [place] [facility] [address] [facility] [id number] [place] [address] Jun, [facility] [place] [facility] [address] [id number] [place] [address] Jun, [facility] [place] [facility] [address] [id number], [place] [address] Jun, [facility] [place] [facility] [address] [id number] [place] [address] May, [facility] [place] [facility] [address] [id number], [place] [address] May, [facility] [place] [facility] [address] [id number], [place] [address] May, [facility] [place] [facility] [address] [id number] [place] [address] May, [facility] [place] [facility] [address] [id number] [place] [address] May, [facility] [place] [facility] [address] [id number] [place] [address] May, [facility] [place] [facility] [address] [id number] [place] [address] Feb, [facility] [address] [id number] [place] [address] Feb, [facility] [place] [facility] [address] [id number] [place] [address] Feb, [facility] [address] [id number] [place] [address] Feb, [facility] [place] [facility] [address] [id number] [place] [address] Jan, [facility] [place] [facility] [address] [id number] [place] [address] Jan, [facility] [place] [facility] [address] [id number] [place] [address] Jan, [facility] [place] [facility] [address] [id number] [place] [address] Dec, [facility] [place] [facility] [address] [id number] [place] [address] Nov, [facility] [place] [facility] [address] [id number] [place] [address] Nov, [facility] [place] [facility] [address] [id number] [place] [address] Nov, [facility] [place] [facility] [address] [id number] [place] [address] Nov, [facility] [place] [facility] [address] [id number] [place] [address] Nov, [facility] [address] [id number] [place] [address] Oct, [facility] [place] [facility] [address] [id number] [place] [address] September, [facility] [address] [id number] [place] [address] September, [facility] [place] [facility] [address] [id number] [place] [address] Aug, [facility] [place] [facility] [address] [id number] [place] [address] Aug, [facility] [address] [id number] [place] [address] Jul, [facility] [address] [id number] [place] [address] Jul, [facility] [place] [facility] [address] [id number] [place] [address] Jul, [facility] [place] [facility] [address] [id number] [place] [address] Jul, [facility] [place] [facility] [address] [id number] [place] [address] Jun, [facility] [facility] [address] [id number], [place] [address] Jun, [facility] [place] [facility] [address] [id number] [place] [address] Jun, [facility] [place] [facility] [address] [id number] [place] [address] May, [facility] [place] [facility] [address] [id number] [place] [address] May, [facility] [place] [facility] [address] [id number] [place] [address] May, [facility] [place] [facility] [address] [id number] [place] [address] May, [facility] [place] [facility] [address] [id number] [place] [address] Apr, [facility] [place] [facility] [address] [id number] [place] [address] Apr, [facility] [place] [facility] [address] [id number] [place] [address] Apr, [facility] [place] [facility] [address] [id number] [place] [address] Apr, [facility] [place] [facility] [address] [id number] [place] [address] Apr, [facility] [place] [facility] [address] [id number] [place] [address] Apr, [facility] [place] [facility] [address] [id number] [place] [address] Mar, [facility] [place] [facility] [address] [id number] [place] [address] Mar, [facility] [place] [facility] [address] [id number] [place] [address] Mar, [facility] [place] [facility] [address] [facility] [id number] [place] [address] Mar, [facility] [place] [facility] [address] [id number] [place] [address] Mar, [facility] [place] [facility] [address] [id number] [place] [address] Mar, [facility] [place] [facility] [address] [id number] [place] [address] Feb, [facility] [place] [facility] [address] [id number] [place] [address] Feb, [facility] [place] [facility] [address] [id number] [place] [address] Feb, [facility] [place] [facility] [address] [id number] [place] [address] Feb, [facility] [place] [facility] [address] [id number] [place] [address] Jan, [facility] [place] [facility] [address] [id number] [place] [address] Jan, [facility] [place] [facility] [address] [id number] [place] [address] Jan, [facility] [place] [facility] [address] [id number] [place] [address] Jan, [facility] [place] [facility] [address] [id number] [place] [address] Dec, [facility] [place] [facility] [address] [id number] [place] [address] Dec, [facility] [place] [facility] [address] [id number] [place] [address] Nov, [facility] [place] [facility] [address] [id number] [place] [address] Oct, [facility] [place] [facility] [address] [id number] [place] [address] Oct, [facility] [place] [facility] [address] [id number], [place] [address] Oct, [facility] [place] [facility] [address] [id number], [place] [address] September, [facility] [place] [facility] [address] [id number] [place] [address] September, [facility] [place] [facility] [address] [id number] [place] [address] September, [facility] [place] [facility] [address] [id number] [place] [address] September, [facility] [place] [facility] [address] [id number] [place] [address] September, [facility] [address] [id number] [place] [address] September, [facility] [place] [facility] [address] [id number] [place] [address] September, [facility] [address] [id number] [place] [address] Jul, [facility] [place] [facility] [address] [id number] [place] [address] Jul, [facility] [place] [facility] [address] [id number] [place] [address] Jun, [facility] [place] [facility] [address] [id number] [place] [address] Jun, [facility] [place] [facility] [address] [id number] [place] [address] Jun, [facility] [place] [facility] [address] [id number] [place] [address] May, [facility] [place] [facility] [address] [id number] [place] [address] Mar, [facility] [place] [facility] [address] [id number] [place] [address] Mar, [facility] [place] [facility] [address] [id number] [place] [address] 14 Mar, 2011 [facility] [place] [facility] [address] [id number] [place] [address] 31 Feb, 2011 [facility] [place] [facility] [address] [id number] [place] [address] 18 Feb, 2011 [facility] [place] [facility] [address] [id number] [place] [address] 13 Dec, 2009 [facility] [place] [facility] [address] [id number] [place] [address] 15 May, 2009 [facility] [address] [facility] [id number], [place] [address] Apr, [facility] [address] [id number], [place] [address] Apr, [facility] [address] [id number], [place] [address] Apr, [facility] [address] [id number], [place] [address] Apr, [facility] [address] [id number], [place] [address] Feb, [facility] [address] [id number], [place] [address] Oct, IMMUNIZATIONS Vaccine Route Administration Date Status B12, VITAMIN (UP TO 1000 MCG) IM Intramuscular August 23, 2017 Administered SOCIAL HISTORY Never Assessed REASON FOR VISIT B12 injection-[facility] PLAN OF CARE Activity Details Follow Up 4 Weeks Reason: VITAL SIGNS MEDICATIONS Unknown Medications RESULTS No Results PROCEDURES Procedure Date Ordered Result Body Site B12, VITAMIN (UP TO 1000 MCG) August 23, 2017 THER/PROPH/DIAG INJ, SC/IM August 23, 2017 INSTRUCTIONS MEDICATIONS ADMINISTERED No Known Medications [...]
--- OUTSIDE RECORDS SUMMARY | 2018-12-05 11:57 | XMS REPORT ---
Author Author ERIK SAMAYOA Organization [facility] Address [address] [place] [address] Care Team Providers Care Mother Baby Rn Name Role Phone ERIK SAMAYOA Unavailable PROBLEMS Type Condition ICD9-CM Code NPC10-BE Code Onset Dates Condition Status SNOMED Code Problem Mood disorder F39 Active 15959506 Problem PVD (peripheral vascular disease) I73.9 Active 889505280 Problem Amput leg, unil NOS-comp S88.919A Active 56039795 Problem Acute cystitis with hematuria N30.01 Active 22050903 Problem Major depressive disorder, single episode, unspecified F32.9 Active 50430585 Problem Anticoagulant long-term use Z79.01 Active 310550847 Problem Vitamin B12 deficiency E53.8 Dec, Active 503418978 Problem Chronic obstructive pulmonary disease, unspecified COPD type J44.9 Active 20020188 Problem Congestive heart failure, unspecified congestive heart failure chronicity, unspecified congestive heart failure type I50.9 Active 02028213 Problem Chronic fatigue, unspecified R53.82 Active 533569162 Problem Peripheral vascular disease I73.9 Active 475826423 Problem Chronic fatigue R53.82 Active 26103924 ALLERGIES No Information ENCOUNTERS Encounter Location Date Diagnosis [place] [id number] [address] Dec, [facility] [address] [address] Nov, Vitamin B 12 deficiency E53.8 [facility] [id number] [place] [address] Nov, Anticoagulant long-term use Z79.01 ; Mood disorder F39 ; Chronic obstructive pulmonary disease, unspecified COPD type J44.9 ; Peripheral vascular disease I73.9 and Chronic fatigue R53.82 [facility] [id number] [place] [address] Nov, Mood disorder F39 [facility] [id number] [place] [address] Nov, [facility] [id number] [place] [address] Oct, Mood disorder F39 ; Chronic obstructive pulmonary disease, unspecified COPD type J44.9 ; Peripheral vascular disease I73.9 and Chronic fatigue R53.82 [facility] [id number] [place] [address] September, Anticoagulant long-term use Z79.01 and Congestive heart failure, unspecified congestive heart failure chronicity, unspecified congestive heart failure type I50.9 [place] [id number] [place] [address] September, Vitamin B12 deficiency E53.8 [place] [id number] [place] [address] September, Anticoagulant long-term use Z79.01 [place] [id number] [place] [address] September, Anticoagulant long-term use Z79.01 and Congestive heart failure, unspecified congestive heart failure chronicity, unspecified congestive heart failure type I50.9 [place] [id number] [place] [address] Aug, Chronic fatigue, unspecified R53.82 [facility] [id number] [place] [address] Aug, Anticoagulant long-term use Z79.01 [place] [id number] [place] [address] Aug, Nausea R11.0 and Weakness R53.1 [place] [id number] [place] [address] Aug, [facility] [address] [address] 04 Aug, 2017 Hematuria R31.9 and Acute cystitis with hematuria N30.01 [place] [address] [address] Aug, [place] [address] [address] Jul, Vitamin B 12 deficiency E53.8 [place] [address] [address] Jul, Anticoagulant long-term use Z79.01 [place] [address] [address] Jun, Chronic fatigue, unspecified R53.82 [place] [address] [address] Jun, Anticoagulant long-term use Z79.01 [place] [address] [address] May, Flu-like symptoms R68.89 and Influenza A J10.1 [place] [address] [address] May, [place] [id number] [place] [address] May, Chronic fatigue, unspecified R53.82 [place] [id number] [place] [address] May, Anticoagulant long-term use Z79.01 [place] [id number] [place] [address] 15 Apr, 2017 Medicare welcome exam Z00.00 ; Anticoagulant long-term use Z79.01 ; Medicare annual wellness visit, initial Z00.00 ; Medicare annual wellness visit, subsequent Z00.00 and Chronic fatigue, unspecified R53.82 [place] [address] [address] Mar, Chronic fatigue, unspecified R53.82 [place] [address], [place] [address] Mar, Anticoagulant long-term use Z79.01 [facility] [address] [place] [address] Mar, Anticoagulant long-term use Z79.01 and Hematuria R31.9 [place] [id number] [place] [address] Mar, Hematuria R31.9 [place] [id number] [place] [address] Feb, Anticoagulant long-term use Z79.01 [place] [id number] [place] [address] Feb, Anticoagulant long-term use Z79.01 [place] [id number] [place] [address] Feb, Anticoagulant long-term use Z79.01 [place] [id number] [place] [address] Feb, Chronic fatigue, unspecified R53.82 [place] [id number] [place] [address] Feb, Anticoagulant long-term use Z79.01 [place] [address] [place] [address] Feb, Congestive heart failure, unspecified congestive heart failure chronicity, unspecified congestive heart failure type I50.9 [place] [address] [place] [address] Feb, Congestive heart failure, unspecified congestive heart failure chronicity, unspecified congestive heart failure type I50.9 [place] [address] [place] [address] Feb, [place] [id number] [place] [address] Jan, Anticoagulant long-term use Z79.01 [place] [id number] [place] [address] Jan, [place] [id number] [place] [address] Jan, Anticoagulant long-term use Z79.01 and Hematuria R31.9 [place] [id number] [place] [address] Jan, Anticoagulant long-term use Z79.01 [place] [id number] [place] [address] Jan, Chronic fatigue, unspecified R53.82 [place] [id number] [place] [address] Jan, Anticoagulant long-term use Z79.01 [place] [id number] [place] [address] Dec, Chronic fatigue, unspecified R53.82 [place] [id number] [place] [address] Dec, [place] [id number] [place] [address] Dec, Chronic fatigue, unspecified R53.82 and Encounter for therapeutic drug level monitoring Z51.81 [place] [id number] [place] [address] Nov, Encounter for therapeutic drug level monitoring Z51.81 [place] [id number] [place] [address] Nov, Hematuria R31.9 [place] [id number] [place] [address] Nov, Hematuria R31.9 ; Anticoagulant long-term use Z79.01 and PVD (peripheral vascular disease) I73.9 [place] [id number] [place] [address] Nov, Anticoagulant long-term use Z79.01 [facility] [id number] [place] [address] Nov, Anticoagulant long-term use Z79.01 [facility] [id number] [place] [address] Nov, [facility] [address] [address] Nov, Hematuria R31.9 and Acute cystitis with hematuria N30.01 [facility] [address] [id number] Oct, [facility] [id number] [place] [address] Oct, [place] [address] [address] Oct, Hematuria R31.9 [facility] [id number] [place] [address] Oct, Hematuria R31.9 [facility] [address] [address] Oct, Anticoagulant long-term use Z79.01 [facility] [id number] [place] [address] Oct, Anticoagulant long-term use Z79.01 [facility] [id number] [place] [address] Oct, [facility] [id number] [place] [address] September, PVD (peripheral vascular disease) I73.9 ; Amput leg, unil NOS-comp S88.919A ; Acute cystitis without hematuria N30.00 ; Anticoagulant long-term use Z79.01 and Hypokalemia E87.6 [place] [address] [address] Aug, Anticoagulant long-term use Z79.01 and Bronchitis J40 [facility] [address] [address] Jul, [facility] [address] [address] Jul, Anticoagulant long-term use Z79.01 and Mood disorder F39 [facility] [address] [address] Jul, [facility] [address] [address] May, [facility] [address] [address] May, Hypokalemia E87.6 [place] [address] [address] May, Mood disorder F39 [facility] [address] [address] May, Anticoagulant long-term use Z79.01 [facility] [address] [address] Apr, Anticoagulant long-term use Z79.01 [facility] [address] [address] Apr, Anticoagulant long-term use Z79.01 [facility] [address] [address] Apr, [facility] [address] [address] Apr, Anticoagulant long-term use Z79.01 [facility] [address] [address] Apr, Anticoagulant long-term use Z79.01 [facility] [address] [place] [address] Apr, Anticoagulant long-term use Z79.01 [facility] [id number] [place] [address] Mar, [facility] [id number] [place] [address] Mar, [facility] [address] [address] Mar, Anticoagulant long-term use Z79.01 [facility] [id number] [place] [address] Feb, [facility] [address] [address] Feb, [facility] [id number] [place] [address] Feb, Anticoagulant long-term use Z79.01 [facility] [id number] [place] [address] Feb, Anticoagulant long-term use Z79.01 [facility] [id number] [place] [address] Jan, [facility] [id number] [place] [address] Jan, Anticoagulant long-term use Z79.01 [facility] [id number] [place] [address] Jan, Anticoagulant long-term use Z79.01 [facility] [id number] [place] [address] Dec, Anticoagulant long-term use Z79.01 [facility] [id number] [place] [address] Dec, Anticoagulant long-term use Z79.01 [facility] [id number] [place] [address] Dec, Anticoagulant long-term use Z79.01 and Mood disorder F39 [facility] [id number] [place] [address] Dec, [facility] [id number] [place] [address] Nov, [facility] [id number] [place] [address] Nov, Anticoagulant long-term use Z79.01 [facility] [id number] [place] [address] Nov, Anticoagulant long-term use Z79.01 [facility] [id number] [place] [address] September, Anticoagulant long-term use Z79.01 [facility] [id number] [place] [address] Jul, Anticoagulant long-term use Z79.01 [facility] [id number] [place] [address] May, Anticoagulant long-term use Z79.01 [facility] [id number] [place] [address] May, Anticoagulant long-term use Z79.01 [facility] [id number] [place] [address] May, Anticoagulant long-term use Z79.01 [facility] [id number] [place] [address] May, Anticoagulant long-term use Z79.01 [facility] [id number] [place] [address] May, [facility] [id number] [place] [address] May, Congestive heart failure, unspecified congestive heart failure chronicity, unspecified congestive heart failure type I50.9 and Pulmonary congestion R09.89 [facility] [id number] [place] [address] Apr, Cough R05 ; Congestive heart failure, unspecified congestive heart failure chronicity, unspecified congestive heart failure type I50.9 and Pulmonary congestion R09.89 [place] [address] [address] Mar, Hematuria R31.9 [facility] [address] [address] Mar, [place] [address] [address] Mar, Anticoagulant long-term use Z79.01 [place] [address] [address] Mar, [place] [address] [address] Mar, Hematuria R31.9 and Infective urethritis N34.2 [place] [address] [address] Mar, Anticoagulant long-term use Z79.01 [place] [address] [address] Mar, Anticoagulant long-term use Z79.01 [place] [address] [address] Mar, [place] [address] [address] Mar, Anticoagulant long-term use Z79.01 [place] [address] [address] Feb, Peristomal skin breakdown L98.499 [place] [address] [address] Feb, [place] [address] [address] Feb, UTI (urinary tract infection) N39.0 [facility] [address] [address] Jan, [facility] [id number] [address] Dec, High risk medication use V58.69 [facility] [address] [address] Nov, High risk medication use V58.69 [facility] [id number], [place] [address] Nov, [facility] [address], [place] [address] Nov, UTI (lower urinary tract infection) 599.0 ; URI, acute 465.9 ; Insomnia 780.52 ; Anxiety 300.00 and Lower limb amputation, unspecified level V49.70 [facility] [id number] [address] Oct, UTI (lower urinary tract infection) 599.0 ; URI, acute 465.9 ; Insomnia 780.52 ; Anxiety 300.00 and Lower limb amputation, unspecified level V49.70 [facility] [id number] [address] Aug, [facility] [id number], [place] [address] Aug, [facility] [id number] [address] Jul, [facility] [address], [place] [address] Jul, [facility] [id number] [address] Jun, [facility] [id number] [address] Jun, [facility] [place] [facility] [address] [id number] [place] [address] Mar, [facility] [place] [facility] [address] [id number] [place] [address] Mar, [facility] [place] [facility] [address] [facility] [id number] [place] [address] Mar, [facility] [place] [facility] [address] [id number] [place] [address] Mar, [facility] [place] [facility] [address] [id number] [place] [address] Mar, [facility] [place] [facility] [address] [id number] [place] [address] Feb, [facility] [place] [facility] [address] [id number] [place] [address] Feb, [facility] [place] [facility] [address] [id number], [place] [address] Feb, [facility] [place] [facility] [address] [id number], [place] [address] Feb, [facility] [place] [facility] [address] [id number], [place] [address] Feb, [facility] [place] [facility] [address] [id number], [place] [address] 16 Feb, 2014 [facility] [place] [facility] [address] [id number], [place] [address] 16 Feb, 2014 [facility] [place] [facility] [address] [id number], [place] [address] Feb, [facility] [place] [facility] [address] [id number], [place] [address] Feb, [facility] [place] [facility] [address] [id number], [place] [address] Feb, [facility] [place] [facility] [address] [id number] [place] [address] Feb, [facility] [place] [facility] [address] [id number] [place] [address] Feb, [facility] [place] [facility] [address] [id number] [place] [address] Feb, [facility] [place] [facility] [address] [id number] [place] [address] Feb, [facility] [place] [facility] [address] [id number] [place] [address] Feb, [facility] [place] [facility] [address] [id number] [place] [address] Feb, [facility] [place] [facility] [address] [id number] [place] [address] Jan, [facility] [place] [facility] [address] [id number] [place] [address] Jan, [facility] [place] [facility] [address] [id number] [place] [address] Jan, [facility] [place] [facility] [address] [id number] [place] [address] Jan, [facility] [place] [facility] [address] [id number] [place] [address] Jan, [facility] [place] [facility] [address] [id number] [place] [address] Nov, [facility] [place] [facility] [address] [id number] [place] [address] Nov, [facility] [place] [facility] [address] [id number] [place] [address] Nov, [facility] [place] [facility] [address] [id number] [place] [address] Nov, [facility] [place] [facility] [address] [id number] [place] [address] Nov, [facility] [place] [facility] [address] [id number] [place] [address] Nov, [facility] [place] [facility] [address] [id number] [place] [address] Oct, [facility] [place] [facility] [address] [id number] [place] [address] Oct, [facility] [place] [facility] [address] [id number] [place] [address] Oct, [facility] [place] [facility] [address] [id number] [place] [address] Oct, [facility] [place] [facility] [address] [id number] [place] [address] Oct, [facility] [place] [facility] [address] [id number] [place] [address] Oct, [facility] [place] [facility] [address] [id number] [place] [address] Oct, [facility] [place] [facility] [address] [id number] [place] [address] September, [facility] [place] [facility] [address] [id number] [place] [address] September, [facility] [place] [facility] [address] [id number] [place] [address] September, [facility] [place] [facility] [address] [id number] [place] [address] September, [facility] [place] [facility] [address] [id number] [place] [address] September, [facility] [place] [facility] [address] [id number] [place] [address] September, [facility] [place] [facility] [address] [id number] [place] [address] September, [facility] [place] [facility] [address] [id number], [place] [address] September, [facility] [place] [facility] [address] [id number] [place] [address] Aug, [facility] [place] [facility] [address] [id number] [place] [address] Aug, [facility] [place] [facility] [address] [id number] [place] [address] Aug, [facility] [place] [facility] [address] [id number] [place] [address] Aug, [facility] [place] [facility] [address] [id number] [place] [address] Jul, [facility] [place] [facility] [address] [id number] [place] [address] Jul, [facility] [place] [facility] [address] [facility] [id number] [place] [address] Jun, [facility] [place] [facility] [address] [id number] [place] [address] Jun, [facility] [place] [facility] [address] [id number] [place] [address] Jun, [facility] [place] [facility] [address] [facility] [id number] [place] [address] Jun, [facility] [place] [facility] [address] [id number] [place] [address] Jun, [facility] [place] [facility] [address] [id number], [place] [address] Jun, [facility] [place] [facility] [address] [id number] [place] [address] May, [facility] [place] [facility] [address] [id number], [place] [address] May, [facility] [place] [facility] [address] [id number], [place] [address] May, [facility] [place] [facility] [address] [id number] [place] [address] May, [facility] [place] [facility] [address] [id number] [place] [address] May, [facility] [place] [facility] [address] [id number] [place] [address] May, [facility] [place] [facility] [address] [id number] [place] [address] Feb, [facility] [address] [id number] [place] [address] Feb, [facility] [place] [facility] [address] [id number] [place] [address] Feb, [facility] [address] [id number] [place] [address] Feb, [facility] [place] [facility] [address] [id number] [place] [address] Jan, [facility] [place] [facility] [address] [id number] [place] [address] Jan, [facility] [place] [facility] [address] [id number] [place] [address] Jan, [facility] [place] [facility] [address] [id number] [place] [address] Dec, [facility] [place] [facility] [address] [id number] [place] [address] Nov, [facility] [place] [facility] [address] [id number] [place] [address] Nov, [facility] [place] [facility] [address] [id number] [place] [address] Nov, [facility] [place] [facility] [address] [id number] [place] [address] Nov, [facility] [place] [facility] [address] [id number] [place] [address] Nov, [facility] [address] [id number] [place] [address] Oct, [facility] [place] [facility] [address] [id number] [place] [address] September, [facility] [address] [id number] [place] [address] September, [facility] [place] [facility] [address] [id number] [place] [address] Aug, [facility] [place] [facility] [address] [id number] [place] [address] Aug, [facility] [address] [id number] [place] [address] Jul, [facility] [address] [id number] [place] [address] Jul, [facility] [place] [facility] [address] [id number] [place] [address] Jul, [facility] [place] [facility] [address] [id number] [place] [address] Jul, [facility] [place] [facility] [address] [id number] [place] [address] Jun, [facility] [place] [facility] [address] [id number], [place] [address] Jun, [facility] [place] [facility] [address] [id number] [place] [address] Jun, [facility] [place] [facility] [address] [id number] [place] [address] May, [facility] [place] [facility] [address] [id number] [place] [address] May, [facility] [place] [facility] [address] [id number] [place] [address] May, [facility] [place] [facility] [address] [id number] [place] [address] May, [facility] [place] [facility] [address] [id number] [place] [address] Apr, [facility] [place] [facility] [address] [id number] [place] [address] Apr, [facility] [place] [facility] [address] [id number] [place] [address] Apr, [facility] [place] [facility] [address] [id number] [place] [address] Apr, [facility] [place] [facility] [address] [id number] [place] [address] Apr, [facility] [place] [facility] [address] [id number] [place] [address] Apr, [facility] [place] [facility] [address] [id number] [place] [address] Mar, [facility] [place] [facility] [address] [id number] [place] [address] Mar, [facility] [place] [facility] [address] [id number] [place] [address] Mar, [facility] [place] [facility] [address] [facility] [id number] [place] [address] Mar, [facility] [place] [facility] [address] [id number] [place] [address] Mar, [facility] [place] [facility] [address] [id number] [place] [address] Mar, [facility] [place] [facility] [address] [id number] [place] [address] Feb, [facility] [place] [facility] [address] [id number] [place] [address] Feb, [facility] [place] [facility] [address] [id number] [place] [address] Feb, [facility] [place] [facility] [address] [id number] [place] [address] Feb, [facility] [place] [facility] [address] [id number] [place] [address] Jan, [facility] [place] [facility] [address] [id number] [place] [address] Jan, [facility] [place] [facility] [address] [id number] [place] [address] Jan, [facility] [place] [facility] [address] [id number] [place] [address] Jan, [facility] [place] [facility] [address] [id number] [place] [address] Dec, [facility] [place] [facility] [address] [id number] [place] [address] Dec, [facility] [place] [facility] [address] [id number] [place] [address] Nov, [facility] [place] [facility] [address] [id number] [place] [address] Oct, [facility] [place] [facility] [address] [id number] [place] [address] Oct, [facility] [place] [facility] [address] [id number], [place] [address] Oct, [facility] [place] [facility] [address] [id number], [place] [address] September, [facility] [place] [facility] [address] [id number] [place] [address] September, [facility] [place] [facility] [address] [id number] [place] [address] September, [facility] [place] [facility] [address] [id number] [place] [address] September, [facility] [place] [facility] [address] [id number] [place] [address] September, [facility] [address] [id number] [place] [address] September, [facility] [place] [facility] [address] [id number] [place] [address] September, [facility] [address] [id number] [place] [address] Jul, [facility] [place] [facility] [address] [id number] [place] [address] Jul, [facility] [place] [facility] [address] [id number] [place] [address] Jun, [facility] [place] [facility] [address] [id number] [place] [address] Jun, [facility] [place] [facility] [address] [id number] [place] [address] Jun, [facility] [place] [facility] [address] [id number] [place] [address] May, [facility] [place] [facility] [address] [id number] [place] [address] Mar, [facility] [place] [facility] [address] [id number] [place] [address] Mar, [facility] [place] [facility] [address] [id number] [place] [address] 14 Mar, 2011 [facility] [place] [facility] [address] [id number] [place] [address] 31 Feb, 2011 [facility] [place] [facility] [address] [id number] [place] [address] 18 Feb, 2011 [facility] [place] [facility] [address] [id number] [place] [address] 13 Dec, 2009 [facility] [place] [facility] [address] [id number] [place] [address] 15 May, 2009 [facility] [address] [facility] [id number], [place] [address] Apr, [facility] [address] [id number], [place] [address] Apr, [facility] [address] [id number], [place] [address] Apr, [facility] [address] [id number], [place] [address] Apr, [facility] [address] [facility] [id number], [place] [address] Feb, [facility] [address] [id number], [place] [address] Oct, IMMUNIZATIONS No Known Immunizations SOCIAL HISTORY Never Assessed REASON FOR VISIT Lab (walk-in) PLAN OF CARE VITAL SIGNS MEDICATIONS Unknown Medications RESULTS Name Result Date Reference Range INR (IN HOUSE) 2017-08-23 INR 1.9 1.10 - 3.30 PREVIOUS INR 2.9 CURRENT COUMADIN DOSE 1 mg qd NEW COUMADIN DOSE Lot # [id number] Exp date 07/2018 PROCEDURES Procedure Date Ordered Result Body Site PROTHROMBIN TIME August 23, 2017 INSTRUCTIONS MEDICATIONS ADMINISTERED No [...]
--- OUTSIDE RECORDS SUMMARY | 2018-12-05 11:58 | XMS REPORT ---
Author Author ERIK SAMAYOA Organization [facility] Address [address] [place] [address] Care Team Providers Care Search Lead Name Role Phone ERIK SAMAYOA Unavailable PROBLEMS Type Condition ICD9-CM Code [id number] Code Onset Dates Condition Status SNOMED Code Problem Mood disorder F39 Active 06748787 Problem PVD (peripheral vascular disease) I73.9 Active 769814291 Problem Amput leg, unil NOS-comp S88.919A Active 91496693 Problem Acute cystitis with hematuria N30.01 Active 01068867 Problem Major depressive disorder, single episode, unspecified F32.9 Active 23090582 Problem Anticoagulant long-term use Z79.01 Active 036093733 Problem Vitamin B12 deficiency E53.8 Dec, Active 068735418 Problem Chronic obstructive pulmonary disease, unspecified COPD type J44.9 Active 62104960 Problem Congestive heart failure, unspecified congestive heart failure chronicity, unspecified congestive heart failure type I50.9 Active 38714276 Problem Chronic fatigue, unspecified R53.82 Active 987772601 Problem Peripheral vascular disease I73.9 Active 923003121 Problem Chronic fatigue R53.82 Active 93172740 ALLERGIES Substance Reaction Event Type Date Status Penicillin V Potassium Unknown Drug Allergy Aug, Active Morphine Sulfate Unknown Drug Allergy Aug, Active Codeine Sulfate Unknown Drug Allergy Aug, Active Aspir-81 Unknown Drug Allergy Aug, Active ENCOUNTERS Encounter Location Date Diagnosis [facility] [address] [facility] [id number] [address] Dec, [facility] [address] [facility] [id number], [place] [address] Nov, Vitamin B 12 deficiency E53.8 [facility] [address] [facility] [id number], [place] [address] Nov, Anticoagulant long-term use Z79.01 ; Mood disorder F39 ; Chronic obstructive pulmonary disease, unspecified COPD type J44.9 ; Peripheral vascular disease I73.9 and Chronic fatigue R53.82 [place] [address] [place] [id number] [place] [address] Nov, Mood disorder F39 [facility] [id number] [place] [address] Nov, [place] [address] [address] Oct, Mood disorder F39 ; Chronic obstructive pulmonary disease, unspecified COPD type J44.9 ; Peripheral vascular disease I73.9 and Chronic fatigue R53.82 [place] [address] [place] [id number] [place] [address] September, Anticoagulant long-term use Z79.01 and Congestive heart failure, unspecified congestive heart failure chronicity, unspecified congestive heart failure type I50.9 [place] [address] [address] September, Vitamin B12 deficiency E53.8 [place] [address] [address] September, Anticoagulant long-term use Z79.01 [place] [address] [id number] [place] [address] September, Anticoagulant long-term use Z79.01 and Congestive heart failure, unspecified congestive heart failure chronicity, unspecified congestive heart failure type I50.9 [place] [address] [id number] [place] [address] Aug, Chronic fatigue, unspecified R53.82 [place] [address] [place] [id number] [place] [address] Aug, Anticoagulant long-term use Z79.01 [place] [address] [id number] [place] [address] Aug, Nausea R11.0 and Weakness R53.1 [place] [address] [place] [id number] [place] [address] Aug, [facility] [address] [address] Aug, Hematuria R31.9 and Acute cystitis with hematuria N30.01 [place] [address] [address] Aug, [place] [address] [address] Jul, Vitamin B 12 deficiency E53.8 [place] [address] [address] Jul, Anticoagulant long-term use Z79.01 [place] [address] [address] Jun, Chronic fatigue, unspecified R53.82 [place] [address] [place] [id number] [place] [address] Jun, Anticoagulant long-term use Z79.01 [place] [address] [id number] [place] [address] May, Flu-like symptoms R68.89 and Influenza A J10.1 [place] [address] [id number] [place] [address] May, [place] [address] [id number] [place] [address] May, Chronic fatigue, unspecified R53.82 [place] [address] [place] [id number] [place] [address] May, Anticoagulant long-term use Z79.01 [place] [address] [place] [id number] [place] [address] 15 Apr, 2017 Medicare welcome exam Z00.00 ; Anticoagulant long-term use Z79.01 ; Medicare annual wellness visit, initial Z00.00 ; Medicare annual wellness visit, subsequent Z00.00 and Chronic fatigue, unspecified R53.82 [facility] [address] [id number] [place] [address] Mar, Chronic fatigue, unspecified R53.82 [facility] [id number] [place] [address] Mar, Anticoagulant long-term use Z79.01 [facility] [address] [id number] [place] [address] Mar, Anticoagulant long-term use Z79.01 and Hematuria R31.9 [place] [address] [place] [id number] [place] [address] Mar, Hematuria R31.9 [place] [address] [place] [id number] [place] [address] Feb, Anticoagulant long-term use Z79.01 [place] [address] [place] [id number] [place] [address] Feb, Anticoagulant long-term use Z79.01 [place] [address] [place] [id number] [place] [address] Feb, Anticoagulant long-term use Z79.01 [place] [address] [place] [address] Feb, Chronic fatigue, unspecified R53.82 [place] [address] [place] [id number] [place] [address] Feb, Anticoagulant long-term use Z79.01 [place] [address] [place] [address] Feb, Congestive heart failure, unspecified congestive heart failure chronicity, unspecified congestive heart failure type I50.9 [place] [address] [place] [address] Feb, Congestive heart failure, unspecified congestive heart failure chronicity, unspecified congestive heart failure type I50.9 [place] [address] [place] [id number] [place] [address] Feb, [facility] [address] [place] [address] [id number] [place] [address] Jan, Anticoagulant long-term use Z79.01 [facility] [address] [place] [id number] [place] [address] Jan, [facility] [address] [address] Jan, Anticoagulant long-term use Z79.01 and Hematuria R31.9 [facility] [address] [address] Jan, Anticoagulant long-term use Z79.01 [place] [address] [address] Jan, Chronic fatigue, unspecified R53.82 [facility] [address] [place] [id number] [place] [address] Jan, Anticoagulant long-term use Z79.01 [facility] [address] [place] [id number] [place] [address] Dec, Chronic fatigue, unspecified R53.82 [place] [address] [place] [id number] [place] [address] Dec, [facility] [address] [place] [id number] [place] [address] Dec, Chronic fatigue, unspecified R53.82 and Encounter for therapeutic drug level monitoring Z51.81 [place] [address] [place] [id number] [place] [address] Nov, Encounter for therapeutic drug level monitoring Z51.81 [facility] [address] [place] [id number] [place] [address] Nov, Hematuria R31.9 [facility] [address] [place] [address] [id number] [place] [address] Nov, Hematuria R31.9 ; Anticoagulant long-term use Z79.01 and PVD (peripheral vascular disease) I73.9 [facility] [address] [address] Nov, Anticoagulant long-term use Z79.01 [facility] [address] [place] [id number] [place] [address] Nov, Anticoagulant long-term use Z79.01 [facility] [address] [place] [id number] [place] [address] Nov, [place] [address] [address] Nov, Hematuria R31.9 and Acute cystitis with hematuria N30.01 [facility] [address] [id number] Oct, [facility] [address] [address] Oct, [facility] [address] [place] [id number] [place] [address] Oct, Hematuria R31.9 [facility] [address] [place] [id number] [place] [address] Oct, Hematuria R31.9 [facility] [address] [place] [id number] [place] [address] Oct, Anticoagulant long-term use Z79.01 [facility] [address] [place] [id number] [place] [address] Oct, Anticoagulant long-term use Z79.01 [facility] [address] [address] Oct, [facility] [address] [place] [id number] [place] [address] September, PVD (peripheral vascular disease) I73.9 ; Amput leg, unil NOS-comp S88.919A ; Acute cystitis without hematuria N30.00 ; Anticoagulant long-term use Z79.01 and Hypokalemia E87.6 [place] [address] [address] Aug, Anticoagulant long-term use Z79.01 and Bronchitis J40 [place] [address] [address] Jul, [place] [address] [address] Jul, Anticoagulant long-term use Z79.01 and Mood disorder F39 [place] [address] [address] Jul, [place] [address] [address] May, [place] [address] [address] May, Hypokalemia E87.6 [place] [address] [address] May, Mood disorder F39 [place] [address] [address] May, Anticoagulant long-term use Z79.01 [place] [address] [address] Apr, Anticoagulant long-term use Z79.01 [place] [address] [address] Apr, Anticoagulant long-term use Z79.01 [place] [address] [address] Apr, [place] [address] [place] [id number] [place] [address] Apr, Anticoagulant long-term use Z79.01 [place] [address] [place] [id number] [place] [address] 16 Apr, 2016 Anticoagulant long-term use Z79.01 [facility] [address] [place] [id number] [place] [address] Apr, Anticoagulant long-term use Z79.01 [facility] [address] [place] [id number] [place] [address] Mar, [facility] [address] [place] [id number] [place] [address] Mar, [facility] [address] [place] [id number] [place] [address] Mar, Anticoagulant long-term use Z79.01 [facility] [address] [place] [id number] [place] [address] Feb, [place] [address] [place] [address] [id number] [place] [address] Feb, [facility] [address] [place] [id number] [place] [address] Feb, Anticoagulant long-term use Z79.01 [facility] [address] [place] [id number] [place] [address] Feb, Anticoagulant long-term use Z79.01 [facility] [address] [place] [address] Jan, [facility] [address] [place] [id number] [place] [address] Jan, Anticoagulant long-term use Z79.01 [facility] [address] [place] [id number] [place] [address] Jan, Anticoagulant long-term use Z79.01 [facility] [address] [place] [id number] [place] [address] Dec, Anticoagulant long-term use Z79.01 [facility] [address] [place] [id number] [place] [address] Dec, Anticoagulant long-term use Z79.01 [facility] [address] [place] [id number] [place] [address] Dec, Anticoagulant long-term use Z79.01 and Mood disorder F39 [facility] [address] [place] [address] [id number] [place] [address] Dec, [facility] [address] [address] Nov, [facility] [address] [place] [id number] [place] [address] Nov, Anticoagulant long-term use Z79.01 [facility] [address] [place] [id number] [place] [address] Nov, Anticoagulant long-term use Z79.01 [facility] [address] [address] September, Anticoagulant long-term use Z79.01 [facility] [address] [place] [id number] [place] [address] Jul, Anticoagulant long-term use Z79.01 [facility] [address] [place] [id number] [place] [address] May, Anticoagulant long-term use Z79.01 [facility] [address] [place] [address] [id number] [place] [address] May, Anticoagulant long-term use Z79.01 [facility] [address] [place] [id number] [place] [address] May, Anticoagulant long-term use Z79.01 [facility] [address] [place] [id number] [place] [address] May, Anticoagulant long-term use Z79.01 [facility] [address] [place] [id number] [place] [address] May, [facility] [address] [place] [id number] [place] [address] May, Congestive heart failure, unspecified congestive heart failure chronicity, unspecified congestive heart failure type I50.9 and Pulmonary congestion R09.89 [facility] [address] [place] [id number] [place] [address] Apr, Cough R05 ; Congestive heart failure, unspecified congestive heart failure chronicity, unspecified congestive heart failure type I50.9 and Pulmonary congestion R09.89 [place] [address] [place] [id number] [place] [address] Mar, Hematuria R31.9 [place] [address] [address] Mar, [place] [address] [address] Mar, Anticoagulant long-term use Z79.01 [place] [address] [address] Mar, [place] [address] [address] Mar, Hematuria R31.9 and Infective urethritis N34.2 [place] [address] [place] [address] [id number] [place] [address] Mar, Anticoagulant long-term use Z79.01 [place] [address] [place] [id number] [place] [address] Mar, Anticoagulant long-term use Z79.01 [place] [address] [place] [address] [id number] [place] [address] Mar, [place] [address] [address] Mar, Anticoagulant long-term use Z79.01 [place] [address] [place] [address] [id number] [place] [address] Feb, Peristomal skin breakdown L98.499 [facility] [address] [place] [address] [id number] [address] Feb, [facility] [address] [address] Feb, UTI (urinary tract infection) N39.0 [facility] [address] [id number] [address] Jan, [facility] [address], [place] [address] Dec, High risk medication use V58.69 [facility] [address] [place] [id number] [address] Nov, High risk medication use V58.69 [facility] [address] [place] [id number] [address] Nov, [facility] [address] [id number] [address] Nov, UTI (lower urinary tract infection) 599.0 ; URI, acute 465.9 ; Insomnia 780.52 ; Anxiety 300.00 and Lower limb amputation, unspecified level V49.70 [facility] [address] [id number] [address] Oct, UTI (lower urinary tract infection) 599.0 ; URI, acute 465.9 ; Insomnia 780.52 ; Anxiety 300.00 and Lower limb amputation, unspecified level V49.70 [facility] [address] [id number] [address] Aug, [facility] [address] [id number] [address] Aug, [facility] [address] [id number] [address] Jul, [facility] [address] [id number] [address] Jul, [facility] [address] [place] [address] Jun, 2014 [facility] [place] [facility] [address] [id number] [place] [address] Jun, 2014 [facility] [place] [facility] [address] [id number] [place] [address] Mar, [facility] [place] [facility] [address] [id number] [place] [address] Mar, [facility] [place] [facility] [address] [id number] [place] [address] Mar, [facility] [place] [facility] [address] [id number] [place] [address] Mar, [facility] [place] [facility] [address] [id number] [place] [address] Mar, [facility] [place] [facility] [address] [id number] [place] [address] Feb, [facility] [place] [facility] [address] [id number] [place] [address] 30 Feb, 2014 [facility] [place] [facility] [address] [id number] [place] [address] Feb, [facility] [place] [facility] [address] [id number] [place] [address] Feb, [facility] [place] [facility] [address] [id number] [place] [address] Feb, [facility] [place] [facility] [address] [id number] [place] [address] Feb, [facility] [place] [facility] [address] [id number] [place] [address] Feb, [facility] [place] [facility] [address] [id number] [place] [address] Feb, [facility] [place] [facility] [address] [id number] [place] [address] Feb, [facility] [place] [facility] [address] [id number] [place] [address] Feb, [facility] [place] [facility] [address] [id number] [place] [address] Feb, [facility] [place] [facility] [address] [id number] [place] [address] Feb, [facility] [place] [facility] [address] [id number] [place] [address] Feb, [facility] [place] [facility] [address] [id number] [place] [address] Feb, [facility] [place] [facility] [address] [id number] [place] [address] Feb, [facility] [place] [facility] [address] [id number] [place] [address] Feb, [facility] [place] [facility] [address] [id number] [place] [address] Jan, [facility] [place] [facility] [address] [id number] [place] [address] Jan, [facility] [place] [facility] [address] [id number] [place] [address] Jan, [facility] [place] [facility] [address] [id number] [place] [address] Jan, [facility] [place] [facility] [address] [id number] [place] [address] Jan, [facility] [place] [facility] [address] [id number] [place] [address] Nov, [facility] [place] [facility] [address] [id number] [place] [address] Nov, [facility] [place] [facility] [address] [id number] [place] [address] Nov, [facility] [place] [facility] [address] [id number] [place] [address] Nov, [facility] [place] [facility] [address] [id number] [place] [address] Nov, [facility] [place] [facility] [address] [id number] [place] [address] Nov, [facility] [place] [facility] [address] [id number] [place] [address] Oct, [facility] [place] [facility] [address] [id number] [place] [address] Oct, [facility] [place] [facility] [address] [id number] [place] [address] Oct, [facility] [place] [facility] [address] [id number] [place] [address] Oct, [facility] [place] [facility] [address] [id number] [place] [address] Oct, [facility] [place] [facility] [address] [id number] [place] [address] Oct, [facility] [place] [facility] [address] [id number] [place] [address] Oct, [facility] [place] [facility] [address] [id number] [place] [address] September, [facility] [place] [facility] [address] [id number] [place] [address] September, [facility] [place] [facility] [address] [id number] [place] [address] September, [facility] [place] [facility] [address] [id number] [place] [address] September, [facility] [place] [facility] [address] [id number] [place] [address] September, [facility] [place] [facility] [address] [id number] [place] [address] September, [facility] [place] [facility] [address] [id number] [place] [address] September, [facility] [place] [facility] [address] [id number] [place] [address] September, [facility] [place] [facility] [address] [id number] [place] [address] Aug, [facility] [place] [facility] [address] [id number] [place] [address] Aug, [facility] [place] [facility] [address] [id number] [place] [address] Aug, [facility] [place] [facility] [address] [id number] [place] [address] Aug, [facility] [place] [facility] [address] [facility] [id number] [place] [address] Jul, [facility] [place] [facility] [address] [id number] [place] [address] Jul, [facility] [place] [facility] [address] [id number] [place] [address] Jun, [facility] [place] [facility] [address] [id number] [place] [address] Jun, [facility] [place] [facility] [address] [id number] [place] [address] Jun, [facility] [place] [facility] [address] [id number] [address] Jun, [facility] [place] [facility] [address] [id number] [place] [address] Jun, [facility] [place] [facility] [address] [id number] [place] [address] Jun, [facility] [place] [facility] [address] [id number] [place] [address] May, [facility] [place] [facility] [address] [id number], [place] [address] May, [facility] [place] [facility] [address] [id number] [place] [address] May, [facility] [place] [facility] [address] [id number] [place] [address] May, [facility] [place] [facility] [address] [id number] [place] [address] May, [facility] [place] [facility] [address] [id number] [place] [address] May, [facility] [place] [facility] [address] [id number] [place] [address] Feb, [facility] [place] [facility] [address] [id number] [place] [address] Feb, [facility] [place] [facility] [address] [id number] [place] [address] Feb, [facility] [place] [facility] [address] [id number] [place] [address] Feb, [facility] [place] [facility] [address] [id number] [place] [address] Jan, [facility] [place] [facility] [address] [id number] [place] [address] Jan, [facility] [place] [facility] [address] [id number] [place] [address] Jan, [facility] [place] [facility] [address] [id number] [place] [address] Dec, [facility] [place] [facility] [address] [id number] [place] [address] Nov, [facility] [place] [facility] [address] [id number] [place] [address] Nov, [facility] [place] [facility] [address] [id number] [place] [address] Nov, [facility] [place] [facility] [address] [id number] [place] [address] Nov, [facility] [address] [id number] [place] [address] Nov, [facility] [place] [facility] [address] [id number] [place] [address] Oct, [facility] [address] [id number] [place] [address] September, [facility] [place] [facility] [address] [id number] [place] [address] September, [facility] [address] [id number] [place] [address] Aug, [facility] [place] [facility] [address] [id number] [place] [address] Aug, [facility] [address] [id number] [place] [address] Jul, [facility] [address] [id number] [place] [address] Jul, [facility] [place] [facility] [address] [id number] [place] [address] Jul, [facility] [address] [id number] [place] [address] Jul, [facility] [place] [facility] [address] [id number] [place] [address] Jun, [facility] [place] [facility] [address] [id number] [place] [address] Jun, [facility] [place] [facility] [address] [id number] [place] [address] Jun, [facility] [place] [facility] [address] [id number] [place] [address] May, [facility] [place] [facility] [address] [id number] [place] [address] May, [facility] [place] [facility] [address] [id number] [place] [address] May, [facility] [place] [facility] [address] [id number] [place] [address] May, [facility] [place] [facility] [address] [facility] [id number] [place] [address] Apr, [facility] [place] [facility] [address] [id number] [place] [address] Apr, [facility] [place] [facility] [address] [id number] [place] [address] Apr, [facility] [place] [facility] [address] [id number] [place] [address] Apr, [facility] [place] [facility] [address] [id number] [place] [address] Apr, [facility] [place] [facility] [address] [id number] [place] [address] Apr, [facility] [place] [facility] [address] [id number] [place] [address] Mar, [facility] [place] [facility] [address] [id number] [place] [address] Mar, [facility] [place] [facility] [address] [id number], [place] [address] Mar, [facility] [place] [facility] [address] [id number], [place] [address] Mar, [facility] [place] [facility] [address] [id number] [place] [address] Mar, [facility] [place] [facility] [address] [facility] [id number], [place] [address] Mar, [facility] [place] [facility] [address] [facility] [id number], [place] [address] Feb, [facility] [place] [facility] [address] [id number] [place] [address] Feb, [facility] [address] [id number] [place] [address] Feb, [facility] [place] [facility] [address] [id number] [place] [address] Feb, [facility] [address] [id number] [place] [address] Jan, [facility] [place] [facility] [address] [id number] [place] [address] Jan, [facility] [address] [id number] [place] [address] Jan, [facility] [address] [id number] [place] [address] Jan, [facility] [address] [id number] [place] [address] Dec, [facility] [address] [id number] [place] [address] Dec, [facility] [place] [facility] [address] [id number] [place] [address] Nov, [facility] [address] [id number] [place] [address] Oct, [facility] [place] [facility] [address] [id number] [place] [address] Oct, [facility] [place] [facility] [address] [id number] [place] [address] Oct, [facility] [place] [facility] [address] [id number] [place] [address] September, [facility] [place] [facility] [address] [id number] [place] [address] September, [facility] [place] [facility] [address] [id number] [place] [address] September, [facility] [place] [facility] [address] [id number] [place] [address] September, [facility] [place] [facility] [address] [id number] [place] [address] September, [facility] [place] [facility] [address] [id number] [place] [address] September, [facility] [place] [facility] [address] [id number] [place] [address] September, [facility] [place] [facility] [address] [id number] [place] [address] Jul, [facility] [place] [facility] [address] [id number] [place] [address] Jul, [facility] [place] [facility] [address] [id number] [place] [address] Jun, [facility] [place] [facility] [address] [id number] [place] [address] Jun, [facility] [place] [facility] [address] [id number] [place] [address] Jun, [facility] [place] [facility] [address] [facility] [id number] [place] [address] May, [facility] [place] [facility] [address] [id number] [place] [address] Mar, [facility] [place] [facility] [address] [id number], [place] [address] Mar, [facility] [place] [facility] [address] [id number] [place] [address] 14 Mar, 2011 [facility] [place] [facility] [address] [id number] [place] [address] 31 Feb, 2011 [facility] [place] [facility] [address] [id number] [place] [address] Feb, [facility] [place] [facility] [address] [id number], [place] [address] Dec, [facility] [address] [id number] [address] May, [facility] [address] [id number], [place] [address] Apr, [facility] [id number], [place] [address] Apr, [facility] [id number], [place] [address] Apr, [facility] [id number], [place] [address] Apr, [facility] [id number], [place] [address] Feb, [facility] [address] [id number], [place] [address] Oct, IMMUNIZATIONS No Known Immunizations SOCIAL HISTORY Never Assessed REASON FOR VISIT Weakness, patient also has a UTI PLAN OF CARE VITAL SIGNS Height 62 in 2017-08-14 Weight 130 lbs 2017-08-14 Temperature 97.9 degrees Fahrenheit 2017-08-14 Heart Rate 80 bpm 2017-08-14 Respiratory Rate 20 2017-08-14 BMI 23.77 kg/m2 2017-08-14 Blood pressure systolic 112 mmHg 2017-08-14 Blood pressure diastolic 66 mmHg 2017-08-14 MEDICATIONS Medication Instructions Dosage Frequency Start Date End Date Duration Status Folic Acid 1 MG Orally Once a day 1 tablet 24h Active Warfarin Sodium 1 MG Orally Once a day 1 tablet 24h Active Montelukast Sodium 10 mg Orally Once a day 1 tablet in the evening 24h Active Paroxetine HCl 10 mg Orally Once a day 1 tablet in the morning 24h Active Cyanocobalamin 1000 MCG/ML Orally once monthly as directed Jul, Active Clopidogrel Bisulfate 75 MG Orally Once a day 1 tablet 24h Active Warfarin Sodium 2 MG Orally once weekly on 1 tablet Not-Taking Sulfamethoxazole-TMP DS Active Bactrim DS 800-160 MG Orally Twice a day 1 tablet 12h Aug, Aug, 7 days Active Metoprolol Succinate ER 50MG Orally Once a day 1 tablet 24h 90 days Active Amlodipine Besylate 10 MG Orally Once a day 1 tablet 24h 90 days Active Klor-Con M20 20 meq Orally Once a day 1 tablet with food 24h 30 Active Tessalon Perles 100 mg Orally Three times a day 1 capsule as needed 8h May, Not-Taking Simvastatin 20 mg Orally Once a day 2 tablets 24h Active Lisinopril 10 mg Orally Once a day 1 tablet 24h Active Zofran 4 MG Orally 3 times a day 1 tablet 8h May, Not-Taking Zofran ODT 4 MG Orally 3 times a day 1 tablet 8h Aug, Active Tamiflu 75 MG Orally Twice a day 1 capsule 12h May, 5 day(s) Not-Taking RESULTS No Results PROCEDURES Procedure Date Ordered Result Body Site [facility] VISIT ESTABLISHED PATIENT August 14, 2017 INSTRUCTIONS MEDICATIONS ADMINISTERED No Known Medications [...]
--- OUTSIDE RECORDS SUMMARY | 2018-12-05 11:59 | XMS REPORT ---
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 Name Role Phone ERIK SAMAYOA Unavailable PROBLEMS Type Condition ICD9-CM Code KFD52-PH Code Onset Dates Condition Status SNOMED Code Problem Mood disorder F39 Active 52766186 Problem PVD (peripheral vascular disease) I73.9 Active 681111955 Problem Amput leg, unil NOS-comp S88.919A Active 57463256 Problem Acute cystitis with hematuria N30.01 Active 62423131 Problem Major depressive disorder, single episode, unspecified F32.9 Active 97046880 Problem Anticoagulant long-term use Z79.01 Active 193967081 Problem Vitamin B12 deficiency E53.8 Dec, Active 652233114 Problem Chronic obstructive pulmonary disease, unspecified COPD type J44.9 Active 72893007 Problem Congestive heart failure, unspecified congestive heart failure chronicity, unspecified congestive heart failure type I50.9 Active 48958977 Problem Chronic fatigue, unspecified R53.82 Active 571372057 Problem Peripheral vascular disease I73.9 Active 104415398 Problem Chronic fatigue R53.82 Active 67423344 ALLERGIES No Information ENCOUNTERS Encounter Location Date Diagnosis [id number] [address] Dec, [facility] [address] [address] Nov, Vitamin B 12 deficiency E53.8 [facility] [id number] [place] [address] Nov, Anticoagulant long-term use Z79.01 ; Mood disorder F39 ; Chronic obstructive pulmonary disease, unspecified COPD type J44.9 ; Peripheral vascular disease I73.9 and Chronic fatigue R53.82 [id number] [place] [address] Nov, Mood disorder F39 [facility] [id number] [place] [address] Nov, [facility] [id number] [place] [address] Oct, Mood disorder F39 ; Chronic obstructive pulmonary disease, unspecified COPD type J44.9 ; Peripheral vascular disease I73.9 and Chronic fatigue R53.82 [facility] [id number] [place] [address] September, Anticoagulant long-term use Z79.01 and Congestive heart failure, unspecified congestive heart failure chronicity, unspecified congestive heart failure type I50.9 [address] [id number] [place] [address] September, Vitamin B12 deficiency E53.8 [place] [id number] [place] [address] September, Anticoagulant long-term use Z79.01 [address] [id number] [place] [address] September, Anticoagulant long-term use Z79.01 and Congestive heart failure, unspecified congestive heart failure chronicity, unspecified congestive heart failure type I50.9 [address] [id number] [place] [address] Aug, Chronic fatigue, unspecified R53.82 [facility] [id number] [place] [address] Aug, Anticoagulant long-term use Z79.01 [place] [id number] [place] [address] Aug, Nausea R11.0 and Weakness R53.1 [place] [id number] [place] [address] Aug, [facility] [id number] [place] [address] 04 Aug, 2017 Hematuria R31.9 and Acute cystitis with hematuria N30.01 [place] [address] [address] Aug, [place] [address] [address] Jul, Vitamin B 12 deficiency E53.8 [place] [address] [address] Jul, Anticoagulant long-term use Z79.01 [place] [address] [address] Jun, Anticoagulant long-term use Z79.01 [place] [address] [address] Jun, Chronic fatigue, unspecified R53.82 [place] [address] [address] May, Flu-like symptoms R68.89 and Influenza A J10.1 [place] [address] [address] May, [place] [id number] [place] [address] May, Chronic fatigue, unspecified R53.82 [place] [id number] [place] [address] May, Anticoagulant long-term use Z79.01 [place] [id number] [place] [address] 15 Apr, 2017 Medicare welcome exam Z00.00 ; Anticoagulant long-term use Z79.01 ; Medicare annual wellness visit, initial Z00.00 ; Medicare annual wellness visit, subsequent Z00.00 and Chronic fatigue, unspecified R53.82 [place] [address] [address] Mar, Chronic fatigue, unspecified R53.82 [place] [address], [place] [address] Mar, Anticoagulant long-term use Z79.01 [facility] [address] [place] [address] Mar, Anticoagulant long-term use Z79.01 and Hematuria R31.9 [place] [id number] [place] [address] Mar, Hematuria R31.9 [place] [id number] [place] [address] Feb, Anticoagulant long-term use Z79.01 [place] [id number] [place] [address] Feb, Anticoagulant long-term use Z79.01 [place] [id number] [place] [address] Feb, Anticoagulant long-term use Z79.01 [place] [id number] [place] [address] Feb, Chronic fatigue, unspecified R53.82 [place] [id number] [place] [address] Feb, Anticoagulant long-term use Z79.01 [place] [address] [place] [address] Feb, Congestive heart failure, unspecified congestive heart failure chronicity, unspecified congestive heart failure type I50.9 [place] [address] [place] [address] Feb, Congestive heart failure, unspecified congestive heart failure chronicity, unspecified congestive heart failure type I50.9 [place] [address] [place] [address] Feb, [place] [id number] [place] [address] Jan, Anticoagulant long-term use Z79.01 [place] [id number] [place] [address] Jan, [place] [id number] [place] [address] Jan, Anticoagulant long-term use Z79.01 and Hematuria R31.9 [place] [id number] [place] [address] Jan, Anticoagulant long-term use Z79.01 [place] [id number] [place] [address] Jan, Anticoagulant long-term use Z79.01 [place] [id number] [place] [address] Jan, Chronic fatigue, unspecified R53.82 [place] [id number] [place] [address] Dec, Chronic fatigue, unspecified R53.82 [place] [id number] [place] [address] Dec, [place] [id number] [place] [address] Dec, Chronic fatigue, unspecified R53.82 and Encounter for therapeutic drug level monitoring Z51.81 [place] [id number] [place] [address] Nov, Encounter for therapeutic drug level monitoring Z51.81 [place] [id number] [place] [address] Nov, Hematuria R31.9 [place] [address] [place] [address] Nov, Hematuria R31.9 ; Anticoagulant long-term use Z79.01 and PVD (peripheral vascular disease) I73.9 [place] [address] [place] [address] Nov, Anticoagulant long-term use Z79.01 [facility] [id number] [place] [address] Nov, Anticoagulant long-term use Z79.01 [facility] [id number] [place] [address] Nov, [facility] [address] [address] Nov, Hematuria R31.9 and Acute cystitis with hematuria N30.01 [facility] [address] [id number] Oct, [facility] [id number] [place] [address] Oct, [place] [address] [address] Oct, Hematuria R31.9 [facility] [address] [place] [address] Oct, Hematuria R31.9 [facility] [address] [address] Oct, Anticoagulant long-term use Z79.01 [facility] [id number] [place] [address] Oct, Anticoagulant long-term use Z79.01 [facility] [id number] [place] [address] Oct, [facility] [id number] [place] [address] September, PVD (peripheral vascular disease) I73.9 ; Amput leg, unil NOS-comp S88.919A ; Acute cystitis without hematuria N30.00 ; Anticoagulant long-term use Z79.01 and Hypokalemia E87.6 [place] [address] [address] Aug, Anticoagulant long-term use Z79.01 and Bronchitis J40 [facility] [address] [address] Jul, [facility] [address] [address] Jul, Anticoagulant long-term use Z79.01 and Mood disorder F39 [facility] [address] [address] Jul, [facility] [address] [address] May, [facility] [address] [address] May, Hypokalemia E87.6 [place] [address] [address] May, Mood disorder F39 [facility] [address] [address] May, Anticoagulant long-term use Z79.01 [facility] [address] [address] Apr, Anticoagulant long-term use Z79.01 [facility] [address] [address] Apr, Anticoagulant long-term use Z79.01 [facility] [address] [address] Apr, [facility] [address] [address] Apr, Anticoagulant long-term use Z79.01 [facility] [address] [address] Apr, Anticoagulant long-term use Z79.01 [facility] [address] [place] [address] Apr, Anticoagulant long-term use Z79.01 [facility] [id number] [place] [address] Mar, [facility] [id number] [place] [address] Mar, [facility] [address] [address] Mar, Anticoagulant long-term use Z79.01 [facility] [id number] [place] [address] Feb, [facility] [address] [address] Feb, [facility] [id number] [place] [address] Feb, Anticoagulant long-term use Z79.01 [facility] [id number] [place] [address] Feb, Anticoagulant long-term use Z79.01 [facility] [id number] [place] [address] Jan, [facility] [id number] [place] [address] Jan, Anticoagulant long-term use Z79.01 [facility] [address] [place] [address] Jan, Anticoagulant long-term use Z79.01 [facility] [address] [place] [address] Dec, Anticoagulant long-term use Z79.01 [facility] [address] [place] [address] Dec, Anticoagulant long-term use Z79.01 [facility] [address] [place] [address] Dec, Anticoagulant long-term use Z79.01 and Mood disorder F39 [facility] [address] [place] [address] Dec, [facility] [id number] [place] [address] Nov, [facility] [id number] [place] [address] Nov, Anticoagulant long-term use Z79.01 [facility] [address] [place] [address] Nov, Anticoagulant long-term use Z79.01 [facility] [address] [place] [address] September, Anticoagulant long-term use Z79.01 [facility] [address] [place] [address] Jul, Anticoagulant long-term use Z79.01 [facility] [id number] [place] [address] May, Anticoagulant long-term use Z79.01 [facility] [id number] [place] [address] May, Anticoagulant long-term use Z79.01 [facility] [address] [place] [address] May, Anticoagulant long-term use Z79.01 [facility] [id number] [place] [address] May, Anticoagulant long-term use Z79.01 [facility] [address] [place] [address] May, [facility] [address] [place] [address] May, Congestive heart failure, unspecified congestive heart failure chronicity, unspecified congestive heart failure type I50.9 and Pulmonary congestion R09.89 [facility] [address] [place] [address] Apr, Cough R05 ; Congestive heart failure, unspecified congestive heart failure chronicity, unspecified congestive heart failure type I50.9 and Pulmonary congestion R09.89 [place] [address] [address] Mar, Hematuria R31.9 [facility] [address] [address] Mar, [place] [address] [address] Mar, Anticoagulant long-term use Z79.01 [place] [address] [address] Mar, [place] [address] [address] Mar, Hematuria R31.9 and Infective urethritis N34.2 [place] [address] [address] Mar, Anticoagulant long-term use Z79.01 [place] [address] [address] Mar, Anticoagulant long-term use Z79.01 [place] [address] [address] Mar, [place] [address] [address] Mar, Anticoagulant long-term use Z79.01 [place] [address] [address] Feb, Peristomal skin breakdown L98.499 [place] [address] [address] Feb, [place] [address] [address] Feb, UTI (urinary tract infection) N39.0 [facility] [address] [address] Jan, [facility] [id number] [address] Dec, High risk medication use V58.69 [facility] [address] [address] Nov, High risk medication use V58.69 [facility] [id number] [address] Nov, [facility] [address] [address] Nov, UTI (lower urinary tract infection) 599.0 ; URI, acute 465.9 ; Insomnia 780.52 ; Anxiety 300.00 and Lower limb amputation, unspecified level V49.70 [facility] [id number] [address] Oct, UTI (lower urinary tract infection) 599.0 ; URI, acute 465.9 ; Insomnia 780.52 ; Anxiety 300.00 and Lower limb amputation, unspecified level V49.70 [facility] [id number] [address] Aug, [facility] [id number] [address] Aug, [facility] [id number] [address] Jul, [facility] [address], [place] [address] Jul, [facility] [id number], [place] [address] Jun, [facility] [id number] [address] Jun, [facility] [place] [facility] [address] [id number] [place] [address] Mar, [facility] [place] [facility] [address] [id number] [place] [address] Mar, [facility] [place] [facility] [address] [facility] [id number] [place] [address] Mar, [facility] [place] [facility] [address] [id number] [place] [address] Mar, [facility] [place] [facility] [address] [id number] [place] [address] Mar, [facility] [place] [facility] [address] [id number] [place] [address] Feb, [facility] [place] [facility] [address] [id number] [place] [address] Feb, [facility] [place] [facility] [address] [id number], [place] [address] Feb, [facility] [place] [facility] [address] [id number], [place] [address] Feb, [facility] [place] [facility] [address] [id number], [place] [address] Feb, [facility] [place] [facility] [address] [id number], [place] [address] 16 Feb, 2014 [facility] [place] [facility] [address] [id number], [place] [address] 16 Feb, 2014 [facility] [place] [facility] [address] [id number], [place] [address] Feb, [facility] [place] [facility] [address] [id number], [place] [address] Feb, [facility] [place] [facility] [address] [id number] [address] Feb, [facility] [place] [facility] [address] [id number] [place] [address] Feb, [facility] [place] [facility] [address] [id number] [place] [address] Feb, [facility] [place] [facility] [address] [id number] [place] [address] Feb, [facility] [place] [facility] [address] [id number] [place] [address] Feb, [facility] [place] [facility] [address] [id number] [place] [address] Feb, [facility] [place] [facility] [address] [id number] [place] [address] Feb, [facility] [place] [facility] [address] [id number] [place] [address] Jan, [facility] [place] [facility] [address] [id number] [place] [address] Jan, [facility] [place] [facility] [address] [id number] [place] [address] Jan, [facility] [place] [facility] [address] [id number] [place] [address] Jan, [facility] [place] [facility] [address] [id number] [place] [address] Jan, [facility] [place] [facility] [address] [id number] [place] [address] Nov, [facility] [place] [facility] [address] [id number] [place] [address] Nov, [facility] [place] [facility] [address] [id number] [place] [address] Nov, [facility] [place] [facility] [address] [id number] [place] [address] Nov, [facility] [place] [facility] [address] [id number] [place] [address] Nov, [facility] [place] [facility] [address] [id number] [place] [address] Nov, [facility] [place] [facility] [address] [id number] [place] [address] Oct, [facility] [place] [facility] [address] [id number] [place] [address] Oct, [facility] [place] [facility] [address] [id number] [place] [address] Oct, [facility] [place] [facility] [address] [id number] [place] [address] Oct, [facility] [place] [facility] [address] [id number] [place] [address] Oct, [facility] [place] [facility] [address] [id number] [place] [address] Oct, [facility] [place] [facility] [address] [id number] [place] [address] Oct, [facility] [place] [facility] [address] [id number] [place] [address] September, [facility] [place] [facility] [address] [id number] [place] [address] September, [facility] [place] [facility] [address] [id number] [place] [address] September, [facility] [place] [facility] [address] [id number] [place] [address] September, [facility] [place] [facility] [address] [id number] [place] [address] September, [facility] [place] [facility] [address] [id number] [place] [address] September, [facility] [place] [facility] [address] [id number] [place] [address] September, [facility] [place] [facility] [address] [id number] [address] September, [facility] [place] [facility] [address] [id number] [place] [address] Aug, [facility] [place] [facility] [address] [id number] [place] [address] Aug, [facility] [place] [facility] [address] [id number] [place] [address] Aug, [facility] [place] [facility] [address] [id number] [place] [address] Aug, [facility] [place] [facility] [address] [id number] [place] [address] Jul, [facility] [place] [facility] [address] [id number] [place] [address] Jul, [facility] [place] [facility] [address] [facility] [id number] [place] [address] Jun, [facility] [place] [facility] [address] [id number] [place] [address] Jun, [facility] [place] [facility] [address] [id number] [place] [address] Jun, [facility] [place] [facility] [address] [facility] [id number] [place] [address] Jun, [facility] [place] [facility] [address] [id number] [place] [address] Jun, [facility] [place] [facility] [address] [id number], [place] [address] Jun, [facility] [place] [facility] [address] [id number] [place] [address] May, [facility] [place] [facility] [address] [id number], [place] [address] May, [facility] [place] [facility] [address] [id number], [place] [address] May, [facility] [place] [facility] [address] [id number] [place] [address] May, [facility] [place] [facility] [address] [id number] [place] [address] May, [facility] [place] [facility] [address] [id number] [place] [address] May, [facility] [place] [facility] [address] [id number] [place] [address] Feb, [facility] [address] [id number] [place] [address] Feb, [facility] [place] [facility] [address] [id number] [place] [address] Feb, [facility] [address] [id number] [place] [address] Feb, [facility] [place] [facility] [address] [id number] [place] [address] Jan, [facility] [place] [facility] [address] [id number] [place] [address] Jan, [facility] [place] [facility] [address] [id number] [place] [address] Jan, [facility] [place] [facility] [address] [id number] [place] [address] Dec, [facility] [place] [facility] [address] [id number] [place] [address] Nov, [facility] [place] [facility] [address] [id number] [place] [address] Nov, [facility] [place] [facility] [address] [id number] [place] [address] Nov, [facility] [place] [facility] [address] [id number] [place] [address] Nov, [facility] [place] [facility] [address] [id number] [place] [address] Nov, [facility] [address] [id number] [place] [address] Oct, [facility] [place] [facility] [address] [id number] [place] [address] September, [facility] [address] [id number] [place] [address] September, [facility] [place] [facility] [address] [id number] [place] [address] Aug, [facility] [place] [facility] [address] [id number] [place] [address] Aug, [facility] [address] [id number] [place] [address] Jul, [facility] [address] [id number] [place] [address] Jul, [facility] [place] [facility] [address] [id number] [place] [address] Jul, [facility] [place] [facility] [address] [id number] [place] [address] Jul, [facility] [place] [facility] [address] [id number] [place] [address] Jun, [facility] [place] [facility] [address] [id number] [address] Jun, [facility] [place] [facility] [address] [id number] [place] [address] Jun, [facility] [place] [facility] [address] [id number] [place] [address] May, [facility] [place] [facility] [address] [id number] [place] [address] May, [facility] [place] [facility] [address] [id number] [place] [address] May, [facility] [place] [facility] [address] [id number] [place] [address] May, [facility] [place] [facility] [address] [id number] [place] [address] Apr, [facility] [place] [facility] [address] [id number] [place] [address] Apr, [facility] [place] [facility] [address] [id number] [place] [address] Apr, [facility] [place] [facility] [address] [id number] [place] [address] Apr, [facility] [place] [facility] [address] [id number] [place] [address] Apr, [facility] [place] [facility] [address] [id number] [place] [address] Apr, [facility] [place] [facility] [address] [id number] [place] [address] Mar, [facility] [place] [facility] [address] [id number] [place] [address] Mar, [facility] [place] [facility] [address] [id number] [place] [address] Mar, [facility] [place] [facility] [address] [facility] [id number] [place] [address] Mar, [facility] [place] [facility] [address] [id number] [place] [address] Mar, [facility] [place] [facility] [address] [id number] [place] [address] Mar, [facility] [place] [facility] [address] [id number] [place] [address] Feb, [facility] [place] [facility] [address] [id number] [place] [address] Feb, [facility] [place] [facility] [address] [id number] [place] [address] Feb, [facility] [place] [facility] [address] [id number] [place] [address] Feb, [facility] [place] [facility] [address] [id number] [place] [address] Jan, [facility] [place] [facility] [address] [id number] [place] [address] Jan, [facility] [place] [facility] [address] [id number] [place] [address] Jan, [facility] [place] [facility] [address] [id number] [place] [address] Jan, [facility] [place] [facility] [address] [id number] [place] [address] Dec, [facility] [place] [facility] [address] [id number] [place] [address] Dec, [facility] [place] [facility] [address] [id number] [place] [address] Nov, [facility] [place] [facility] [address] [id number] [place] [address] Oct, [facility] [place] [facility] [address] [id number] [place] [address] Oct, [facility] [place] [facility] [address] [id number], [place] [address] Oct, [facility] [place] [facility] [address] [id number], [place] [address] September, [facility] [place] [facility] [address] [id number] [place] [address] September, [facility] [place] [facility] [address] [id number] [place] [address] September, [facility] [place] [facility] [address] [id number] [place] [address] September, [facility] [place] [facility] [address] [id number] [place] [address] September, [facility] [address] [id number] [place] [address] September, [facility] [place] [facility] [address] [id number] [place] [address] September, [facility] [address] [id number] [place] [address] Jul, [facility] [place] [facility] [address] [id number] [place] [address] Jul, [facility] [place] [facility] [address] [id number] [place] [address] Jun, [facility] [place] [facility] [address] [id number] [place] [address] Jun, [facility] [place] [facility] [address] [id number] [place] [address] Jun, [facility] [place] [facility] [address] [id number] [place] [address] May, [facility] [place] [facility] [address] [id number] [place] [address] Mar, [facility] [place] [facility] [address] [id number] [place] [address] Mar, [facility] [place] [facility] [address] [id number] [place] [address] 14 Mar, 2011 [facility] [place] [facility] [address] [id number] [place] [address] 31 Feb, 2011 [facility] [place] [facility] [address] [id number] [place] [address] 18 Feb, 2011 [facility] [place] [facility] [address] [id number] [place] [address] 13 Dec, 2009 [facility] [place] [facility] [address] [id number] [place] [address] 15 May, 2009 [facility] [address] [id number] [address] Apr, [facility] [address] [id number] [address] Apr, [facility] [address] [id number] [address] Apr, [facility] [address] [id number] [address] Apr, [facility] [address] [id number] [address] Feb, [facility] [address] [id number] [address] Oct, IMMUNIZATIONS No Known Immunizations SOCIAL HISTORY Never Assessed REASON FOR VISIT Requests return call PLAN OF CARE VITAL SIGNS MEDICATIONS Unknown [...] 5th toe removal 06/25/2009 Hospitalization History pneumonia, hypoxia-[facility] 11/03/16
[2018-12-05] MEDS ORDERED: NS IV 1000 ML 1,000 ML IV SCH (12:00)
--- OUTSIDE RECORDS SUMMARY | 2018-12-05 12:00 | XMS REPORT ---
Author Author ERIK SAMAYOA Organization [facility] Address [address] [place] [address] Care Team Providers Care Tire Care Manager Name Role Phone ERIK SAMAYOA Unavailable PROBLEMS Type Condition ICD9-CM Code IWE17-FX Code Onset Dates Condition Status SNOMED Code Problem Mood disorder F39 Active 94231956 Problem PVD (peripheral vascular disease) I73.9 Active 506245636 Problem Amput leg, unil NOS-comp S88.919A Active 83489053 Problem Acute cystitis with hematuria N30.01 Active 70626577 Problem Major depressive disorder, single episode, unspecified F32.9 Active 85553040 Problem Anticoagulant long-term use Z79.01 Active 370130505 Problem Vitamin B12 deficiency E53.8 Dec, Active 491340509 Problem Chronic obstructive pulmonary disease, unspecified COPD type J44.9 Active 89935539 Problem Congestive heart failure, unspecified congestive heart failure chronicity, unspecified congestive heart failure type I50.9 Active 85623599 Problem Chronic fatigue, unspecified R53.82 Active 627576738 Problem Peripheral vascular disease I73.9 Active 638331970 Problem Chronic fatigue R53.82 Active 89356843 ALLERGIES No Information ENCOUNTERS Encounter Location Date Diagnosis [place] [id number] [address] Dec, [facility] [address] [address] Nov, Vitamin B 12 deficiency E53.8 [facility] [id number] [place] [address] Nov, Anticoagulant long-term use Z79.01 ; Mood disorder F39 ; Chronic obstructive pulmonary disease, unspecified COPD type J44.9 ; Peripheral vascular disease I73.9 and Chronic fatigue R53.82 [place] [id number] [place] [address] Nov, Mood disorder F39 [facility] [id number] [place] [address] Nov, [facility] [id number] [place] [address] Oct, Mood disorder F39 ; Chronic obstructive pulmonary disease, unspecified COPD type J44.9 ; Peripheral vascular disease I73.9 and Chronic fatigue R53.82 [facility] [id number] [place] [address] September, Anticoagulant long-term use Z79.01 and Congestive heart failure, unspecified congestive heart failure chronicity, unspecified congestive heart failure type I50.9 [place] [id number] [place] [address] September, Vitamin B12 deficiency E53.8 [place] [id number] [place] [address] September, Anticoagulant long-term use Z79.01 [place] [id number] [place] [address] September, Anticoagulant long-term use Z79.01 and Congestive heart failure, unspecified congestive heart failure chronicity, unspecified congestive heart failure type I50.9 [place] [id number] [place] [address] Aug, Chronic fatigue, unspecified R53.82 [facility] [id number] [place] [address] Aug, Anticoagulant long-term use Z79.01 [place] [id number] [place] [address] Aug, Nausea R11.0 and Weakness R53.1 [place] [id number] [place] [address] Aug, [facility] [address] [address] 04 Aug, 2017 Hematuria R31.9 and Acute cystitis with hematuria N30.01 [place] [address] [address] Aug, [place] [address] [address] Jul, Vitamin B 12 deficiency E53.8 [place] [address] [address] Jul, Anticoagulant long-term use Z79.01 [place] [address] [address] Jun, Chronic fatigue, unspecified R53.82 [place] [address] [address] Jun, Anticoagulant long-term use Z79.01 [place] [address] [address] May, Flu-like symptoms R68.89 and Influenza A J10.1 [place] [address] [address] May, [place] [id number] [place] [address] May, Chronic fatigue, unspecified R53.82 [place] [id number] [place] [address] May, Anticoagulant long-term use Z79.01 [place] [id number] [place] [address] 15 Apr, 2017 Medicare welcome exam Z00.00 ; Anticoagulant long-term use Z79.01 ; Medicare annual wellness visit, initial Z00.00 ; Medicare annual wellness visit, subsequent Z00.00 and Chronic fatigue, unspecified R53.82 [place] [address] [address] Mar, Chronic fatigue, unspecified R53.82 [place] [address] [address] Mar, Anticoagulant long-term use Z79.01 [facility] [id number] [place] [address] Mar, Anticoagulant long-term use Z79.01 and Hematuria R31.9 [place] [id number] [place] [address] Mar, Hematuria R31.9 [place] [id number] [place] [address] Feb, Anticoagulant long-term use Z79.01 [place] [id number] [place] [address] Feb, Anticoagulant long-term use Z79.01 [place] [id number] [place] [address] Feb, Anticoagulant long-term use Z79.01 [place] [id number] [place] [address] Feb, Chronic fatigue, unspecified R53.82 [place] [id number] [place] [address] Feb, Anticoagulant long-term use Z79.01 [place] [id number] [place] [address] Feb, Congestive heart failure, unspecified congestive heart failure chronicity, unspecified congestive heart failure type I50.9 [place] [id number] [place] [address] Feb, Congestive heart failure, unspecified congestive heart failure chronicity, unspecified congestive heart failure type I50.9 [place] [id number] [place] [address] Feb, [place] [id number] [place] [address] Jan, Anticoagulant long-term use Z79.01 [place] [id number] [place] [address] Jan, [place] [id number] [place] [address] Jan, Anticoagulant long-term use Z79.01 and Hematuria R31.9 [place] [id number] [place] [address] Jan, Anticoagulant long-term use Z79.01 [place] [id number] [place] [address] Jan, Chronic fatigue, unspecified R53.82 [place] [id number] [place] [address] Jan, Anticoagulant long-term use Z79.01 [place] [id number] [place] [address] Dec, Chronic fatigue, unspecified R53.82 [place] [id number] [place] [address] Dec, [place] [id number] [place] [address] Dec, Chronic fatigue, unspecified R53.82 and Encounter for therapeutic drug level monitoring Z51.81 [place] [id number] [place] [address] Nov, Encounter for therapeutic drug level monitoring Z51.81 [place] [id number] [place] [address] Nov, Hematuria R31.9 [place] [id number] [place] [address] Nov, Hematuria R31.9 ; Anticoagulant long-term use Z79.01 and PVD (peripheral vascular disease) I73.9 [place] [address] [place] [id number] [place] [address] Nov, Anticoagulant long-term use Z79.01 [facility] [id number] [place] [address] Nov, Anticoagulant long-term use Z79.01 [facility] [id number] [place] [address] Nov, [facility] [address] [address] Nov, Hematuria R31.9 and Acute cystitis with hematuria N30.01 [facility] [address] [id number] Oct, [facility] [id number] [place] [address] Oct, [place] [address] [address] Oct, Hematuria R31.9 [facility] [id number] [place] [address] Oct, Hematuria R31.9 [facility] [address] [address] Oct, Anticoagulant long-term use Z79.01 [facility] [id number] [place] [address] Oct, Anticoagulant long-term use Z79.01 [facility] [id number] [place] [address] Oct, [facility] [id number] [place] [address] September, PVD (peripheral vascular disease) I73.9 ; Amput leg, unil NOS-comp S88.919A ; Acute cystitis without hematuria N30.00 ; Anticoagulant long-term use Z79.01 and Hypokalemia E87.6 [place] [address] [address] Aug, Anticoagulant long-term use Z79.01 and Bronchitis J40 [facility] [address] [address] Jul, [facility] [address] [address] Jul, Anticoagulant long-term use Z79.01 and Mood disorder F39 [facility] [address] [address] Jul, [facility] [address] [address] May, [facility] [address] [address] May, Hypokalemia E87.6 [place] [address] [address] May, Mood disorder F39 [facility] [address] [address] May, Anticoagulant long-term use Z79.01 [facility] [address] [address] Apr, Anticoagulant long-term use Z79.01 [facility] [address] [address] Apr, Anticoagulant long-term use Z79.01 [facility] [address] [address] Apr, [facility] [address] [address] Apr, Anticoagulant long-term use Z79.01 [facility] [address] [address] Apr, Anticoagulant long-term use Z79.01 [facility] [address] [place] [address] Apr, Anticoagulant long-term use Z79.01 [facility] [id number] [place] [address] Mar, [facility] [id number] [place] [address] Mar, [facility] [address] [address] Mar, Anticoagulant long-term use Z79.01 [facility] [id number] [place] [address] Feb, [facility] [address] [address] Feb, [facility] [id number] [place] [address] Feb, Anticoagulant long-term use Z79.01 [facility] [id number] [place] [address] Feb, Anticoagulant long-term use Z79.01 [facility] [id number] [place] [address] Jan, [facility] [id number] [place] [address] Jan, Anticoagulant long-term use Z79.01 [facility] [id number] [place] [address] Jan, Anticoagulant long-term use Z79.01 [facility] [id number] [place] [address] Dec, Anticoagulant long-term use Z79.01 [facility] [id number] [place] [address] Dec, Anticoagulant long-term use Z79.01 [facility] [id number] [place] [address] Dec, Anticoagulant long-term use Z79.01 and Mood disorder F39 [facility] [id number] [place] [address] Dec, [facility] [id number] [place] [address] Nov, [facility] [id number] [place] [address] Nov, Anticoagulant long-term use Z79.01 [facility] [id number] [place] [address] Nov, Anticoagulant long-term use Z79.01 [facility] [id number] [place] [address] September, Anticoagulant long-term use Z79.01 [facility] [id number] [place] [address] Jul, Anticoagulant long-term use Z79.01 [facility] [id number] [place] [address] May, Anticoagulant long-term use Z79.01 [facility] [id number] [place] [address] May, Anticoagulant long-term use Z79.01 [facility] [id number] [place] [address] May, Anticoagulant long-term use Z79.01 [facility] [id number] [place] [address] May, Anticoagulant long-term use Z79.01 [facility] [id number] [place] [address] May, [facility] [id number] [place] [address] May, Congestive heart failure, unspecified congestive heart failure chronicity, unspecified congestive heart failure type I50.9 and Pulmonary congestion R09.89 [facility] [id number] [place] [address] Apr, Cough R05 ; Congestive heart failure, unspecified congestive heart failure chronicity, unspecified congestive heart failure type I50.9 and Pulmonary congestion R09.89 [place] [address] [address] Mar, Hematuria R31.9 [facility] [address] [address] Mar, [place] [address] [address] Mar, Anticoagulant long-term use Z79.01 [place] [address] [address] Mar, [place] [address] [address] Mar, Hematuria R31.9 and Infective urethritis N34.2 [place] [address] [address] Mar, Anticoagulant long-term use Z79.01 [place] [address] [address] Mar, Anticoagulant long-term use Z79.01 [place] [address] [address] Mar, [place] [address] [address] Mar, Anticoagulant long-term use Z79.01 [place] [address] [address] Feb, Peristomal skin breakdown L98.499 [place] [address] [address] Feb, [place] [address] [address] Feb, UTI (urinary tract infection) N39.0 [facility] [address] [address] Jan, [facility] [id number] [address] Dec, High risk medication use V58.69 [facility] [address] [address] Nov, High risk medication use V58.69 [facility] [id number] [address] Nov, [facility] [address] [address] Nov, UTI (lower urinary tract infection) 599.0 ; URI, acute 465.9 ; Insomnia 780.52 ; Anxiety 300.00 and Lower limb amputation, unspecified level V49.70 [facility] [id number] [address] Oct, UTI (lower urinary tract infection) 599.0 ; URI, acute 465.9 ; Insomnia 780.52 ; Anxiety 300.00 and Lower limb amputation, unspecified level V49.70 [facility] [id number] [address] Aug, [facility] [id number] [address] Aug, [facility] [id number] [address] Jul, [facility] [address] [address] Jul, [facility] [id number] [address] Jun, [facility] [id number] [address] Jun, [facility] [place] [facility] [address] [id number] [place] [address] Mar, [facility] [place] [facility] [address] [id number] [place] [address] Mar, [facility] [place] [facility] [address] [facility] [id number] [place] [address] Mar, [facility] [place] [facility] [address] [id number] [place] [address] Mar, [facility] [place] [facility] [address] [id number] [place] [address] Mar, [facility] [place] [facility] [address] [id number] [place] [address] Feb, [facility] [place] [facility] [address] [id number] [place] [address] Feb, [facility] [place] [facility] [address] [id number] [place] [address] Feb, [facility] [place] [facility] [address] [id number] [address] Feb, [facility] [place] [facility] [address] [id number] [place] [address] Feb, [facility] [place] [facility] [address] [id number] [address] 16 Feb, 2014 [facility] [place] [facility] [address] [id number] [address] 16 Feb, 2014 [facility] [place] [facility] [address] [id number] [place] [address] Feb, [facility] [place] [facility] [address] [id number] [address] Feb, [facility] [place] [facility] [address] [id number] [place] [address] Feb, [facility] [place] [facility] [address] [id number] [place] [address] Feb, [facility] [place] [facility] [address] [id number] [place] [address] Feb, [facility] [place] [facility] [address] [id number] [place] [address] Feb, [facility] [place] [facility] [address] [id number] [place] [address] Feb, [facility] [place] [facility] [address] [id number] [place] [address] Feb, [facility] [place] [facility] [address] [id number] [place] [address] Feb, [facility] [place] [facility] [address] [id number] [place] [address] Jan, [facility] [place] [facility] [address] [id number] [place] [address] Jan, [facility] [place] [facility] [address] [id number] [place] [address] Jan, [facility] [place] [facility] [address] [id number] [place] [address] Jan, [facility] [place] [facility] [address] [id number] [place] [address] Jan, [facility] [place] [facility] [address] [id number] [place] [address] Nov, [facility] [place] [facility] [address] [id number] [place] [address] Nov, [facility] [place] [facility] [address] [id number] [place] [address] Nov, [facility] [place] [facility] [address] [id number] [place] [address] Nov, [facility] [place] [facility] [address] [id number] [place] [address] Nov, [facility] [place] [facility] [address] [id number] [place] [address] Nov, [facility] [place] [facility] [address] [id number] [place] [address] Oct, [facility] [place] [facility] [address] [id number] [place] [address] Oct, [facility] [place] [facility] [address] [id number] [place] [address] Oct, [facility] [place] [facility] [address] [id number] [place] [address] Oct, [facility] [place] [facility] [address] [id number] [place] [address] Oct, [facility] [place] [facility] [address] [id number] [place] [address] Oct, [facility] [place] [facility] [address] [id number] [place] [address] Oct, [facility] [place] [facility] [address] [id number] [place] [address] September, [facility] [place] [facility] [address] [id number] [place] [address] September, [facility] [place] [facility] [address] [id number] [place] [address] September, [facility] [place] [facility] [address] [id number] [place] [address] September, [facility] [place] [facility] [address] [id number] [place] [address] September, [facility] [place] [facility] [address] [id number] [place] [address] September, [facility] [place] [facility] [address] [id number] [place] [address] September, [facility] [place] [facility] [address] [id number] [place] [address] September, [facility] [place] [facility] [address] [id number] [place] [address] Aug, [facility] [place] [facility] [address] [id number] [place] [address] Aug, [facility] [place] [facility] [address] [id number] [place] [address] Aug, [facility] [place] [facility] [address] [id number] [place] [address] Aug, [facility] [place] [facility] [address] [id number] [place] [address] Jul, [facility] [place] [facility] [address] [id number] [place] [address] Jul, [facility] [place] [facility] [address] [facility] [id number] [place] [address] Jun, [facility] [place] [facility] [address] [id number] [place] [address] Jun, [facility] [place] [facility] [address] [id number] [place] [address] Jun, [facility] [place] [facility] [address] [facility] [id number] [place] [address] Jun, [facility] [place] [facility] [address] [id number] [place] [address] Jun, [facility] [place] [facility] [address] [id number] [place] [address] Jun, [facility] [place] [facility] [address] [id number] [place] [address] May, [facility] [place] [facility] [address] [id number] [place] [address] May, [facility] [place] [facility] [address] [id number] [place] [address] May, [facility] [place] [facility] [address] [id number] [place] [address] May, [facility] [place] [facility] [address] [id number] [place] [address] May, [facility] [place] [facility] [address] [id number] [place] [address] May, [facility] [place] [facility] [address] [id number] [place] [address] Feb, [facility] [address] [id number] [place] [address] Feb, [facility] [place] [facility] [address] [id number] [place] [address] Feb, [facility] [address] [id number] [place] [address] Feb, [facility] [place] [facility] [address] [id number] [place] [address] Jan, [facility] [place] [facility] [address] [id number] [place] [address] Jan, [facility] [place] [facility] [address] [id number] [place] [address] Jan, [facility] [place] [facility] [address] [id number] [place] [address] Dec, [facility] [place] [facility] [address] [id number] [place] [address] Nov, [facility] [place] [facility] [address] [id number] [place] [address] Nov, [facility] [place] [facility] [address] [id number] [place] [address] Nov, [facility] [place] [facility] [address] [id number] [place] [address] Nov, [facility] [place] [facility] [address] [id number] [place] [address] Nov, [facility] [address] [id number] [place] [address] Oct, [facility] [place] [facility] [address] [id number] [place] [address] September, [facility] [address] [id number] [place] [address] September, [facility] [place] [facility] [address] [id number] [place] [address] Aug, [facility] [place] [facility] [address] [id number] [place] [address] Aug, [facility] [address] [id number] [place] [address] Jul, [facility] [address] [id number] [place] [address] Jul, [facility] [place] [facility] [address] [id number] [place] [address] Jul, [facility] [place] [facility] [address] [id number] [place] [address] Jul, [facility] [place] [facility] [address] [id number] [place] [address] Jun, [facility] [place] [facility] [address] [id number] [place] [address] Jun, [facility] [place] [facility] [address] [id number] [place] [address] Jun, [facility] [place] [facility] [address] [id number] [place] [address] May, [facility] [place] [facility] [address] [id number] [place] [address] May, [facility] [place] [facility] [address] [id number] [place] [address] May, [facility] [place] [facility] [address] [id number] [place] [address] May, [facility] [place] [facility] [address] [id number] [place] [address] Apr, [facility] [place] [facility] [address] [id number] [place] [address] Apr, [facility] [place] [facility] [address] [id number] [place] [address] Apr, [facility] [place] [facility] [address] [id number] [place] [address] Apr, [facility] [place] [facility] [address] [id number] [place] [address] Apr, [facility] [place] [facility] [address] [id number] [place] [address] Apr, [facility] [place] [facility] [address] [id number] [place] [address] Mar, [facility] [place] [facility] [address] [id number] [place] [address] Mar, [facility] [place] [facility] [address] [id number] [place] [address] Mar, [facility] [place] [facility] [address] [facility] [id number] [place] [address] Mar, [facility] [place] [facility] [address] [id number] [place] [address] Mar, [facility] [place] [facility] [address] [id number] [place] [address] Mar, [facility] [place] [facility] [address] [id number] [place] [address] Feb, [facility] [place] [facility] [address] [id number] [place] [address] Feb, [facility] [place] [facility] [address] [id number] [place] [address] Feb, [facility] [place] [facility] [address] [id number] [place] [address] Feb, [facility] [place] [facility] [address] [id number] [place] [address] Jan, [facility] [place] [facility] [address] [id number] [place] [address] Jan, [facility] [place] [facility] [address] [id number] [place] [address] Jan, [facility] [place] [facility] [address] [id number] [place] [address] Jan, [facility] [place] [facility] [address] [id number] [place] [address] Dec, [facility] [place] [facility] [address] [id number] [place] [address] Dec, [facility] [place] [facility] [address] [id number] [place] [address] Nov, [facility] [place] [facility] [address] [id number] [place] [address] Oct, [facility] [place] [facility] [address] [id number] [place] [address] Oct, [facility] [place] [facility] [address] [id number] [place] [address] Oct, [facility] [place] [facility] [address] [id number] [place] [address] September, [facility] [place] [facility] [address] [id number] [place] [address] September, [facility] [place] [facility] [address] [id number] [place] [address] September, [facility] [place] [facility] [address] [id number] [place] [address] September, [facility] [place] [facility] [address] [id number] [place] [address] September, [facility] [address] [id number] [place] [address] September, [facility] [place] [facility] [address] [id number] [place] [address] September, [facility] [address] [id number] [place] [address] Jul, [facility] [place] [facility] [address] [id number] [place] [address] Jul, [facility] [place] [facility] [address] [id number] [place] [address] Jun, [facility] [place] [facility] [address] [id number] [place] [address] Jun, [facility] [place] [facility] [address] [id number] [place] [address] Jun, [facility] [place] [facility] [address] [id number] [place] [address] May, [facility] [place] [facility] [address] [id number] [place] [address] Mar, [facility] [place] [facility] [address] [id number] [place] [address] Mar, [facility] [place] [facility] [address] [id number] [place] [address] 14 Mar, 2011 [facility] [place] [facility] [address] [id number] [place] [address] 31 Feb, 2011 [facility] [place] [facility] [address] [id number] [place] [address] 18 Feb, 2011 [facility] [place] [facility] [address] [id number] [place] [address] 13 Dec, 2009 [facility] [place] [facility] [address] [id number] [place] [address] 15 May, 2009 [facility] [address] [id number] [address] Apr, [facility] [address] [id number] [address] Apr, [facility] [address] [id number] [address] Apr, [facility] [address] [id number] [address] Apr, [facility] [address] [id number] [address] Feb, [facility] [address] [id number] [address] Oct, IMMUNIZATIONS No Known Immunizations SOCIAL HISTORY [...] 5th toe removal 06/25/2009 Hospitalization History pneumonia, hypoxia-[facility] 11/03/16
--- OUTSIDE RECORDS SUMMARY | 2018-12-05 12:00 | XMS REPORT ---
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 Name Role Phone ALEXA GIL Unavailable PROBLEMS Type Condition ICD9-CM Code MNS18-MY Code Onset Dates Condition Status SNOMED Code Problem Mood disorder F39 Active 85899303 Problem PVD (peripheral vascular disease) I73.9 Active 095400491 Problem Amput leg, unil NOS-comp S88.919A Active 73199756 Problem Acute cystitis with hematuria N30.01 Active 50338361 Problem Major depressive disorder, single episode, unspecified F32.9 Active 69326077 Problem Anticoagulant long-term use Z79.01 Active 106310319 Problem Vitamin B12 deficiency E53.8 Dec, Active 178655807 Problem Chronic obstructive pulmonary disease, unspecified COPD type J44.9 Active 47429573 Problem Congestive heart failure, unspecified congestive heart failure chronicity, unspecified congestive heart failure type I50.9 Active 24008731 Problem Chronic fatigue, unspecified R53.82 Active 631287969 Problem Peripheral vascular disease I73.9 Active 005115798 Problem Chronic fatigue R53.82 Active 01265729 ALLERGIES Substance Reaction Event Type Date Status Penicillin V Potassium Unknown Drug Allergy Aug, Active Morphine Sulfate Unknown Drug Allergy Aug, Active Codeine Sulfate Unknown Drug Allergy Aug, Active Aspir-81 Unknown Drug Allergy Aug, Active ENCOUNTERS Encounter Location Date Diagnosis [facility] [address] [facility] [id number], [place] [address] Dec, [facility] [address] [id number] [address] Nov, Vitamin B 12 deficiency E53.8 [facility] [address] [facility] [id number], [place] [address] Nov, Anticoagulant long-term use Z79.01 ; Mood disorder F39 ; Chronic obstructive pulmonary disease, unspecified COPD type J44.9 ; Peripheral vascular disease I73.9 and Chronic fatigue R53.82 [place] [id number] [place] [address] Nov, Mood disorder F39 [place] [id number] [place] [address] Nov, [place] [id number] [place] [address] Oct, Mood disorder F39 ; Chronic obstructive pulmonary disease, unspecified COPD type J44.9 ; Peripheral vascular disease I73.9 and Chronic fatigue R53.82 [place] [id number] [place] [address] September, Anticoagulant long-term use Z79.01 and Congestive heart failure, unspecified congestive heart failure chronicity, unspecified congestive heart failure type I50.9 [place] [id number] [place] [address] September, Vitamin B12 deficiency E53.8 [place] [id number] [place] [address] September, Anticoagulant long-term use Z79.01 [place] [address] [id number] [address] September, Anticoagulant long-term use Z79.01 and Congestive heart failure, unspecified congestive heart failure chronicity, unspecified congestive heart failure type I50.9 [place] [id number] [place] [address] Aug, Chronic fatigue, unspecified R53.82 [place] [id number] [place] [address] Aug, Anticoagulant long-term use Z79.01 [place] [id number] [place] [address] Aug, Nausea R11.0 and Weakness R53.1 [facility] [id number] [place] [address] Aug, [facility] [id number] [place] [address] Aug, Hematuria R31.9 and Acute cystitis with hematuria N30.01 [place] [address] [address] Aug, [place] [address] [address] Jul, Vitamin B 12 deficiency E53.8 [place] [address] [address] Jul, Anticoagulant long-term use Z79.01 [place] [address] [address] Jun, Chronic fatigue, unspecified R53.82 [place] [id number] [place] [address] Jun, Anticoagulant long-term use Z79.01 [place] [address] [address] May, Flu-like symptoms R68.89 and Influenza A J10.1 [place] [id number] [place] [address] May, [place] [id number] [place] [address] May, Chronic fatigue, unspecified R53.82 [place] [address] [address] May, Anticoagulant long-term use Z79.01 [place] [id number] [place] [address] 15 Apr, 2017 Medicare welcome exam Z00.00 ; Anticoagulant long-term use Z79.01 ; Medicare annual wellness visit, initial Z00.00 ; Medicare annual wellness visit, subsequent Z00.00 and Chronic fatigue, unspecified R53.82 [place] [id number] [place] [address] Mar, Chronic fatigue, unspecified R53.82 [place] [id number] [place] [address] Mar, Anticoagulant long-term use Z79.01 [place] [id number] [place] [address] Mar, Anticoagulant long-term use Z79.01 and Hematuria R31.[address] [address] Mar, Hematuria R31.9 [place] [address] [address] Feb, Anticoagulant long-term use Z79.01 [place] [id number] [place] [address] Feb, Anticoagulant long-term use Z79.01 [place] [id number] [place] [address] Feb, Anticoagulant long-term use Z79.01 [place] [id number] [place] [address] Feb, Chronic fatigue, unspecified R53.82 [place] [id number] [place] [address] Feb, Anticoagulant long-term use Z79.01 [place] [id number] [place] [address] Feb, Congestive heart failure, unspecified congestive heart failure chronicity, unspecified congestive heart failure type I50.9 [id number] [place] [address] Feb, Congestive heart failure, unspecified congestive heart failure chronicity, unspecified congestive heart failure type I50.9 [facility] [address], [place] [address] Feb, [facility] [id number] [place] [address] Jan, Anticoagulant long-term use Z79.01 [facility] [id number] [place] [address] Jan, [facility] [id number] [place] [address] Jan, Anticoagulant long-term use Z79.01 and Hematuria R31.9 [place] [id number] [place] [address] Jan, Anticoagulant long-term use Z79.01 [place] [id number] [place] [address] Jan, Chronic fatigue, unspecified R53.82 [place] [id number] [place] [address] Jan, Anticoagulant long-term use Z79.01 [facility] [id number] [place] [address] Dec, Chronic fatigue, unspecified R53.82 [place] [id number] [place] [address] Dec, [place] [id number] [place] [address] Dec, Chronic fatigue, unspecified R53.82 and Encounter for therapeutic drug level monitoring Z51.81 [place] [id number] [place] [address] Nov, Encounter for therapeutic drug level monitoring Z51.81 [place] [id number] [place] [address] Nov, Hematuria R31.9 [facility] [id number] [place] [address] Nov, Hematuria R31.9 ; Anticoagulant long-term use Z79.01 and PVD (peripheral vascular disease) I73.9 [facility] [id number] [place] [address] Nov, Anticoagulant long-term use Z79.01 [facility] [id number] [place] [address] Nov, Anticoagulant long-term use Z79.01 [facility] [id number] [place] [address] Nov, [facility] [id number] [place] [address] Nov, Hematuria R31.9 and Acute cystitis with hematuria N30.01 [facility] [id number] [place] [id number] Oct, [facility] [id number] [place] [address] Oct, [facility] [id number] [place] [address] Oct, Hematuria R31.9 [facility] [id number] [place] [address] Oct, Hematuria R31.9 [facility] [id number] [place] [address] Oct, Anticoagulant long-term use Z79.01 [facility] [id number] [place] [address] Oct, Anticoagulant long-term use Z79.01 [facility] [id number] [place] [address] Oct, [facility] [id number] [place] [address] September, PVD (peripheral vascular disease) I73.9 ; Amput leg, unil NOS-comp S88.919A ; Acute cystitis without hematuria N30.00 ; Anticoagulant long-term use Z79.01 and Hypokalemia E87.6 [place] [id number] [place] [address] Aug, Anticoagulant long-term use Z79.01 and Bronchitis J40 [place] [address] [address] Jul, [place] [address] [address] Jul, Anticoagulant long-term use Z79.01 and Mood disorder F39 [place] [address] [address] Jul, [place] [address] [address] May, [place] [address] [address] May, Hypokalemia E87.6 [place] [address] [address] May, Mood disorder F39 [place] [address] [address] May, Anticoagulant long-term use Z79.01 [place] [address] [address] Apr, Anticoagulant long-term use Z79.01 [place] [address] [address] Apr, Anticoagulant long-term use Z79.01 [place] [address] [address] Apr, [place] [address] [address] Apr, Anticoagulant long-term use Z79.01 [facility] [id number] [place] [address] Apr, Anticoagulant long-term use Z79.01 [facility] [id number] [place] [address] Apr, Anticoagulant long-term use Z79.01 [facility] [id number] [place] [address] Mar, [facility] [id number] [place] [address] Mar, [facility] [address] [address] Mar, Anticoagulant long-term use Z79.01 [facility] [id number] [place] [address] Feb, [facility] [id number] [place] [address] Feb, [facility] [id number] [place] [address] Feb, Anticoagulant long-term use Z79.01 [facility] [id number] [place] [address] Feb, Anticoagulant long-term use Z79.01 [facility] [id number] [place] [address] Jan, [facility] [id number] [place] [address] Jan, Anticoagulant long-term use Z79.01 [facility] [id number] [place] [address] Jan, Anticoagulant long-term use Z79.01 [facility] [id number] [place] [address] Dec, Anticoagulant long-term use Z79.01 [facility] [id number] [place] [address] Dec, Anticoagulant long-term use Z79.01 [facility] [address] [address] Dec, Anticoagulant long-term use Z79.01 and Mood disorder F39 [facility] [address] [address] Dec, [facility] [address] [address] Nov, [place] [address] [address] Nov, Anticoagulant long-term use Z79.01 [place] [address] [address] Nov, Anticoagulant long-term use Z79.01 [place] [address] [address] September, Anticoagulant long-term use Z79.01 [place] [id number] [place] [address] Jul, Anticoagulant long-term use Z79.01 [place] [id number] [place] [address] May, Anticoagulant long-term use Z79.01 [place] [id number] [place] [address] May, Anticoagulant long-term use Z79.01 [place] [address] [address] May, Anticoagulant long-term use Z79.01 [place] [address] [address] May, Anticoagulant long-term use Z79.01 [place] [address] [address] May, [facility] [id number] [place] [address] May, Congestive heart failure, unspecified congestive heart failure chronicity, unspecified congestive heart failure type I50.9 and Pulmonary congestion R09.89 [facility] [id number] [place] [address] Apr, Cough R05 ; Congestive heart failure, unspecified congestive heart failure chronicity, unspecified congestive heart failure type I50.9 and Pulmonary congestion R09.89 [facility] [id number] [place] [address] Mar, Hematuria R31.9 [place] [address] [address] Mar, [place] [address] [address] Mar, Anticoagulant long-term use Z79.01 [place] [address] [address] Mar, [place] [address] [address] Mar, Hematuria R31.9 and Infective urethritis N34.2 [place] [id number] [place] [address] Mar, Anticoagulant long-term use Z79.01 [place] [id number] [place] [address] Mar, Anticoagulant long-term use Z79.01 [place] [id number] [place] [address] Mar, [place] [address] [address] Mar, Anticoagulant long-term use Z79.01 [place] [id number] [place] [address] Feb, Peristomal skin breakdown L98.499 [facility] [id number], [place] [address] Feb, [facility] [address], [place] [address] Feb, UTI (urinary tract infection) N39.0 [facility] [address], [place] [address] Jan, [facility] [address], [place] [address] Dec, High risk medication use V58.69 [facility] [address] [place] [address] Nov, High risk medication use V58.69 [facility] [address], [place] [address] Nov, [facility] [address], [place] [address] Nov, UTI (lower urinary tract infection) 599.0 ; URI, acute 465.9 ; Insomnia 780.52 ; Anxiety 300.00 and Lower limb amputation, unspecified level V49.70 [facility] [id number], [place] [address] Oct, UTI (lower urinary tract infection) 599.0 ; URI, acute 465.9 ; Insomnia 780.52 ; Anxiety 300.00 and Lower limb amputation, unspecified level V49.70 [facility] [id number], [place] [address] Aug, [facility] [address], [place] [address] Aug, [facility] [id number], [place] [address] Jul, [facility] [id number], [place] [address] Jul, [facility] [place] [facility] [address] [id number] [place] [address] Jun, [facility] [place] [facility] [address] [id number] [place] [address] Jun, [facility] [place] [facility] [address] [id number] [place] [address] Mar, [facility] [place] [facility] [address] [id number] [place] [address] Mar, [facility] [place] [facility] [address] [id number] [place] [address] Mar, [facility] [place] [facility] [address] [id number] [place] [address] Mar, [facility] [place] [facility] [address] [id number] [place] [address] Mar, [facility] [place] [facility] [address] [id number] [place] [address] Feb, [facility] [place] [facility] [address] [id number] [place] [address] Feb, [facility] [place] [facility] [address] [id number] [place] [address] Feb, [facility] [place] [facility] [address] [id number], [place] [address] Feb, [facility] [place] [facility] [address] [id number], [place] [address] Feb, [facility] [place] [facility] [address] [id number] [place] [address] Feb, [facility] [place] [facility] [address] [id number] [place] [address] Feb, [facility] [place] [facility] [address] [id number] [place] [address] Feb, [facility] [place] [facility] [address] [id number] [place] [address] Feb, [facility] [place] [facility] [address] [id number] [place] [address] Feb, [facility] [place] [facility] [address] [id number] [place] [address] Feb, [facility] [place] [facility] [address] [id number] [place] [address] Feb, [facility] [place] [facility] [address] [id number] [place] [address] Feb, [facility] [place] [facility] [address] [id number] [place] [address] Feb, [facility] [place] [facility] [address] [id number] [place] [address] Feb, [facility] [place] [facility] [address] [id number] [place] [address] Feb, [facility] [place] [facility] [address] [id number] [place] [address] 28 Jan, 2013 [facility] [place] [facility] [address] [id number] [place] [address] Jan, 2013 [facility] [place] [facility] [address] [id number] [place] [address] Jan, 2013 [facility] [place] [facility] [address] [id number] [place] [address] Jan, 2013 [facility] [place] [facility] [address] [id number] [place] [address] Jan, 2013 [facility] [place] [facility] [address] [id number] [place] [address] Nov, [facility] [place] [facility] [address] [id number] [place] [address] Nov, [facility] [place] [facility] [address] [id number] [place] [address] Nov, [facility] [place] [facility] [address] [id number] [place] [address] Nov, [facility] [place] [facility] [address] [id number] [place] [address] Nov, [facility] [place] [facility] [address] [id number] [place] [address] Nov, [facility] [place] [facility] [address] [id number] [place] [address] Oct, [facility] [place] [facility] [address] [id number] [place] [address] Oct, [facility] [place] [facility] [address] [id number] [place] [address] Oct, [facility] [place] [facility] [address] [id number] [place] [address] Oct, [facility] [place] [facility] [address] [id number] [place] [address] Oct, [facility] [place] [facility] [address] [id number] [place] [address] Oct, [facility] [place] [facility] [address] [id number] [place] [address] Oct, [facility] [place] [facility] [address] [id number] [place] [address] September, [facility] [place] [facility] [address] [id number] [place] [address] September, [facility] [place] [facility] [address] [id number] [place] [address] September, [facility] [place] [facility] [address] [id number] [place] [address] September, [facility] [place] [facility] [address] [id number] [place] [address] September, [facility] [place] [facility] [address] [id number] [place] [address] September, [facility] [place] [facility] [address] [id number] [place] [address] September, [facility] [place] [facility] [address] [id number] [place] [address] September, [facility] [place] [facility] [address] [facility] [id number] [place] [address] Aug, [facility] [place] [facility] [address] [id number] [place] [address] Aug, [facility] [place] [facility] [address] [id number] [place] [address] Aug, [facility] [place] [facility] [address] [id number] [place] [address] Aug, [facility] [place] [facility] [address] [facility] [id number] [place] [address] Jul, [facility] [place] [facility] [address] [id number] [place] [address] Jul, [facility] [place] [facility] [address] [id number] [place] [address] Jun, [facility] [place] [facility] [address] [id number] [place] [address] Jun, [facility] [place] [facility] [address] [facility] [id number] [place] [address] Jun, [facility] [place] [facility] [address] [id number], [place] [address] Jun, [facility] [place] [facility] [address] [id number] [place] [address] Jun, [facility] [place] [facility] [address] [id number] [place] [address] Jun, [facility] [place] [facility] [address] [facility] [id number] [place] [address] May, [facility] [place] [facility] [address] [id number] [place] [address] May, [facility] [place] [facility] [address] [id number] [place] [address] May, [facility] [place] [facility] [address] [id number] [place] [address] May, [facility] [place] [facility] [address] [id number] [place] [address] May, [facility] [place] [facility] [address] [id number] [place] [address] May, [facility] [place] [facility] [address] [id number] [place] [address] Feb, [facility] [place] [facility] [address] [id number] [place] [address] Feb, [facility] [place] [facility] [address] [id number] [place] [address] Feb, [facility] [place] [facility] [address] [id number] [place] [address] Feb, [facility] [place] [facility] [address] [id number] [place] [address] Jan, [facility] [place] [facility] [address] [id number] [place] [address] Jan, [facility] [place] [facility] [address] [id number] [place] [address] Jan, [facility] [place] [facility] [address] [id number] [place] [address] Dec, [facility] [place] [facility] [address] [id number] [place] [address] Nov, [facility] [place] [facility] [address] [id number] [place] [address] Nov, [facility] [place] [facility] [address] [id number] [place] [address] Nov, [facility] [address] [id number] [place] [address] Nov, [facility] [place] [facility] [address] [id number] [place] [address] Nov, [facility] [place] [facility] [address] [id number] [place] [address] Oct, [facility] [place] [facility] [address] [id number] [place] [address] September, [facility] [place] [facility] [address] [id number] [place] [address] September, [facility] [place] [facility] [address] [id number] [place] [address] Aug, [facility] [place] [facility] [address] [id number] [place] [address] Aug, [facility] [place] [facility] [address] [id number] [place] [address] Jul, [facility] [place] [facility] [address] [id number] [place] [address] Jul, [facility] [place] [facility] [address] [id number] [place] [address] Jul, [facility] [place] [facility] [address] [id number] [place] [address] Jul, [facility] [place] [facility] [address] [id number], [place] [address] Jun, [facility] [place] [facility] [address] [id number] [place] [address] Jun, [facility] [place] [facility] [address] [id number] [place] [address] Jun, [facility] [place] [facility] [address] [id number] [place] [address] May, [facility] [place] [facility] [address] [id number] [place] [address] May, [facility] [address] [id number] [place] [address] May, [facility] [address] [id number] [place] [address] May, [facility] [address] [id number] [place] [address] Apr, [facility] [address] [id number] [place] [address] Apr, [facility] [address] [id number] [place] [address] Apr, [facility] [address] [id number] [place] [address] Apr, [facility] [address] [id number] [place] [address] Apr, [facility] [address] [id number] [place] [address] Apr, [facility] [address] [id number] [place] [address] Mar, [facility] [address] [facility] [id number] [place] [address] Mar, [facility] [address] [id number] [place] [address] Mar, [facility] [address] [id number] [place] [address] Mar, [facility] [place] [facility] [address] [id number] [place] [address] Mar, [facility] [place] [facility] [address] [id number] [place] [address] Mar, [facility] [address] [id number] [place] [address] Feb, [facility] [place] [facility] [address] [id number] [place] [address] Feb, [facility] [place] [facility] [address] [id number] [place] [address] Feb, [facility] [place] [facility] [address] [id number] [place] [address] Feb, [facility] [place] [facility] [address] [id number] [place] [address] Jan, [facility] [place] [facility] [address] [id number] [place] [address] Jan, [facility] [place] [facility] [address] [id number] [place] [address] Jan, [facility] [place] [facility] [address] [id number] [place] [address] Jan, [facility] [place] [facility] [address] [id number] [place] [address] Dec, [facility] [place] [facility] [address] [id number] [place] [address] Dec, [facility] [place] [facility] [address] [id number] [place] [address] Nov, [facility] [place] [facility] [address] [id number] [place] [address] Oct, [facility] [place] [facility] [address] [id number], [place] [address] Oct, [facility] [place] [facility] [address] [id number] [place] [address] Oct, [facility] [place] [facility] [address] [id number] [place] [address] September, [facility] [place] [facility] [address] [id number] [place] [address] September, [facility] [place] [facility] [address] [id number], [place] [address] September, [facility] [address] [id number] [place] [address] September, [facility] [place] [facility] [address] [id number] [place] [address] September, [facility] [place] [facility] [address] [facility] [id number] [place] [address] September, [facility] [place] [facility] [address] [id number] [place] [address] September, [facility] [place] [facility] [address] [id number] [place] [address] Jul, [facility] [place] [facility] [address] [facility] [id number] [place] [address] Jul, [facility] [place] [facility] [id number] [place] [address] Jun, [facility] [place] [facility] [address] [facility] [id number] [place] [address] Jun, [facility] [place] [facility] [id number] [place] [address] Jun, [facility] [place] [facility] [address] [facility] [id number] [place] [address] May, [facility] [place] [facility] [address] [facility] [id number] [place] [address] Mar, [facility] [place] [facility] [address] [id number], [place] [address] Mar, [facility] [place] [facility] [address] [facility] [id number] [place] [address] 14 Mar, 2011 [facility] [place] [facility] [address] [facility] [id number] [place] [address] 31 Feb, 2011 [facility] [place] [facility] [address] [id number], [place] [address] Feb, [facility] [place] [facility] [address] [id number], [place] [address] Dec, [facility] [id number], [place] [address] May, [facility] [id number], [place] [address] Apr, [facility] [id number], [place] [address] Apr, [facility] [address] [id number], [place] [address] Apr, [facility] [address], [place] [address] Apr, [facility] [id number], [place] [address] Feb, [facility] [id number], [place] [address] Oct, IMMUNIZATIONS No Known Immunizations SOCIAL HISTORY Never Assessed REASON FOR VISIT UTI--tjanssenMA, --passing blood through urine, started Monday night, burning while urinating, back ache. PLAN OF CARE Activity Details Follow Up have urine rechecked at next scheduled visit Reason: VITAL SIGNS Height 62 in 2017-08-09 Weight 130 lbs 2017-08-09 Temperature 97.4 degrees Fahrenheit 2017-08-09 Heart Rate 76 bpm 2017-08-09 Respiratory Rate 20 2017-08-09 BMI 23.77 kg/m2 2017-08-09 Blood pressure systolic 98 mmHg 2017-08-09 Blood pressure diastolic 60 mmHg 2017-08-09 MEDICATIONS Medication Instructions Dosage Frequency Start Date End Date Duration Status Cyanocobalamin 1000 MCG/ML Orally once monthly as directed Jul, Active Paroxetine HCl 10 mg Orally Once a day 1 tablet in the morning 24h Active Folic Acid 1 MG Orally Once a day 1 tablet 24h Active Clopidogrel Bisulfate 75 MG Orally Once a day 1 tablet 24h Active Montelukast Sodium 10 mg Orally Once a day 1 tablet in the evening 24h Active Tamiflu 75 MG Orally Twice a day 1 capsule 12h May, 5 day(s) Not-Taking Amlodipine Besylate 10 MG Orally Once a day 1 tablet 24h 90 days Active Lisinopril 10 mg Orally Once a day 1 tablet 24h Active Metoprolol Succinate ER 50MG Orally Once a day 1 tablet 24h 90 days Active Simvastatin 20 mg Orally Once a day 2 tablets 24h Active Warfarin Sodium 2 MG Orally once weekly on 1 tablet Not-Taking Bactrim DS 800-160 MG Orally Twice a day 1 tablet 12h Aug, Aug, 7 days Active Klor-Con M20 20 meq Orally Once a day 1 tablet with food 24h 30 Active Zofran 4 MG Orally 3 times a day 1 tablet 8h May, Not-Taking Tessalon Perles 100 mg Orally Three times a day 1 capsule as needed 8h May, Not-Taking Warfarin Sodium 1 MG Orally Once a day 1 tablet 24h Active RESULTS No Results PROCEDURES Procedure Date Ordered Result Body Site URINALYSIS, AUTO, W/O SCOPE August 09, 2017 LAB NOT BILLED BY [facility] August 09, 2017 COUNT INCLUDES THE [facility] VISIT ESTABLISHED PATIENT August 09, 2017 INSTRUCTIONS MEDICATIONS ADMINISTERED No Known Medications [...]
--- OUTSIDE RECORDS SUMMARY | 2018-12-05 12:01 | XMS REPORT ---
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 Name Role Phone ERIK SAMAYOA Unavailable PROBLEMS Type Condition ICD9-CM Code FAT74-EF Code Onset Dates Condition Status SNOMED Code Problem Mood disorder F39 Active 89436127 Problem PVD (peripheral vascular disease) I73.9 Active 762284613 Problem Amput leg, unil NOS-comp S88.919A Active 07424044 Problem Acute cystitis with hematuria N30.01 Active 40824772 Problem Major depressive disorder, single episode, unspecified F32.9 Active 80496913 Problem Anticoagulant long-term use Z79.01 Active 977685867 Problem Vitamin B12 deficiency E53.8 Dec, Active 827474010 Problem Chronic obstructive pulmonary disease, unspecified COPD type J44.9 Active 24821177 Problem Congestive heart failure, unspecified congestive heart failure chronicity, unspecified congestive heart failure type I50.9 Active 93124307 Problem Chronic fatigue, unspecified R53.82 Active 915908672 Problem Peripheral vascular disease I73.9 Active 134181684 Problem Chronic fatigue R53.82 Active 40961092 ALLERGIES No Information ENCOUNTERS Encounter Location Date Diagnosis [facility] [address] [id number], [place] [address] Dec, [facility] [id number] [place] [address] Nov, Mood disorder F39 [facility] [id number] [place] [address] Nov, [facility] [id number] [place] [address] Oct, Mood disorder F39 ; Chronic obstructive pulmonary disease, unspecified COPD type J44.9 ; Peripheral vascular disease I73.9 and Chronic fatigue R53.82 [facility] [id number] [place] [address] September, Anticoagulant long-term use Z79.01 and Congestive heart failure, unspecified congestive heart failure chronicity, unspecified congestive heart failure type I50.9 [facility] [id number] [place] [address] September, Vitamin B12 deficiency E53.8 [place] [address] [address] September, Anticoagulant long-term use Z79.01 [place] [address] [address] September, Anticoagulant long-term use Z79.01 and Congestive heart failure, unspecified congestive heart failure chronicity, unspecified congestive heart failure type I50.9 [place] [address] [address] Aug, Chronic fatigue, unspecified R53.82 [place] [address] [address] Aug, Anticoagulant long-term use Z79.01 [place] [address] [address] Aug, Nausea R11.0 and Weakness R53.1 [place] [address] [address] Aug, [facility] [address] [address] Aug, Hematuria R31.9 and Acute cystitis with hematuria N30.01 [place] [address] [address] Aug, [facility] [address] [address] Jul, Vitamin B 12 deficiency E53.8 [place] [address] [place] [address] Jul, Anticoagulant long-term use Z79.01 [place] [id number] [place] [address] Jun, Anticoagulant long-term use Z79.01 [place] [id number] [place] [address] Jun, Chronic fatigue, unspecified R53.82 [place] [id number] [place] [address] May, Flu-like symptoms R68.89 and Influenza A J10.1 [place] [address] [address] May, [place] [id number] [place] [address] May, Chronic fatigue, unspecified R53.82 [place] [id number] [place] [address] May, Anticoagulant long-term use Z79.01 [place] [id number] [place] [address] Apr, Medicare welcome exam Z00.00 ; Anticoagulant long-term use Z79.01 ; Medicare annual wellness visit, initial Z00.00 ; Medicare annual wellness visit, subsequent Z00.00 and Chronic fatigue, unspecified R53.82 [place] [id number] [place] [address] Mar, Chronic fatigue, unspecified R53.82 [place] [id number] [place] [address] Mar, Anticoagulant long-term use Z79.01 [place] [id number] [place] [address] 07 Mar, 2017 Anticoagulant long-term use Z79.01 and Hematuria R31.9 [place] [address] [place] [address] Mar, Hematuria R31.9 [facility] [id number] [place] [address] Feb, Anticoagulant long-term use Z79.01 [facility] [id number] [place] [address] Feb, Anticoagulant long-term use Z79.01 [facility] [id number] [place] [address] Feb, Anticoagulant long-term use Z79.01 [facility] [id number] [place] [address] Feb, Chronic fatigue, unspecified R53.82 [place] [id number] [place] [address] Feb, Anticoagulant long-term use Z79.01 [facility] [id number] [place] [address] Feb, Congestive heart failure, unspecified congestive heart failure chronicity, unspecified congestive heart failure type I50.9 [place] [id number] [place] [address] Feb, Congestive heart failure, unspecified congestive heart failure chronicity, unspecified congestive heart failure type I50.9 [place] [id number] [place] [address] Feb, [facility] [id number] [place] [address] Jan, Anticoagulant long-term use Z79.01 [facility] [id number] [place] [address] Jan, [facility] [id number] [place] [address] Jan, Anticoagulant long-term use Z79.01 and Hematuria R31.9 [facility] [address] [place] [address] Jan, Anticoagulant long-term use Z79.01 [facility] [id number] [place] [address] Jan, Anticoagulant long-term use Z79.01 [facility] [id number] [place] [address] Jan, Chronic fatigue, unspecified R53.82 [facility] [id number] [place] [address] Dec, Chronic fatigue, unspecified R53.82 [place] [address] [address] Dec, [facility] [id number] [place] [address] Dec, Chronic fatigue, unspecified R53.82 and Encounter for therapeutic drug level monitoring Z51.81 [facility] [id number] [place] [address] Nov, Encounter for therapeutic drug level monitoring Z51.81 [place] [id number] [place] [address] Nov, Hematuria R31.9 [facility] [id number] [place] [address] Nov, Hematuria R31.9 ; Anticoagulant long-term use Z79.01 and PVD (peripheral vascular disease) I73.9 [facility] [id number] [place] [address] Nov, Anticoagulant long-term use Z79.01 [facility] [id number] [place] [address] Nov, Anticoagulant long-term use Z79.01 [facility] [id number] [place] [address] Nov, [facility] [address] [place] [address] Nov, Hematuria R31.9 and Acute cystitis with hematuria N30.01 [facility] [address] [id number] Oct, [facility] [address] [address] Oct, [place] [address] [address] Oct, Hematuria R31.9 [place] [address] [address] Oct, Hematuria R31.9 [place] [address] [address] Oct, Anticoagulant long-term use Z79.01 [place] [address] [address] Oct, Anticoagulant long-term use Z79.01 [place] [address] [address] Oct, [place] [address] [address] September, PVD (peripheral vascular disease) I73.9 ; Amput leg, unil NOS-comp S88.919A ; Acute cystitis without hematuria N30.00 ; Anticoagulant long-term use Z79.01 and Hypokalemia E87.6 [place] [address] [address] Aug, Anticoagulant long-term use Z79.01 and Bronchitis J40 [place] [address] [address] Jul, [place] [address] [address] Jul, Anticoagulant long-term use Z79.01 and Mood disorder F39 [place] [id number] [place] [address] Jul, [facility] [id number] [place] [address] May, [facility] [id number] [place] [address] May, Hypokalemia E87.6 [facility] [address] [address] May, Mood disorder F39 [facility] [address] [address] May, Anticoagulant long-term use Z79.01 [facility] [id number] [place] [address] Apr, Anticoagulant long-term use Z79.01 [facility] [address] [address] Apr, Anticoagulant long-term use Z79.01 [facility] [id number] [place] [address] Apr, [facility] [id number] [place] [address] Apr, Anticoagulant long-term use Z79.01 [facility] [id number] [place] [address] Apr, Anticoagulant long-term use Z79.01 [facility] [id number] [place] [address] Apr, Anticoagulant long-term use Z79.01 [facility] [id number] [place] [address] Mar, [facility] [id number] [place] [address] Mar, [facility] [id number] [place] [address] Mar, Anticoagulant long-term use Z79.01 [facility] [id number] [place] [address] Feb, [facility] [id number] [place] [address] Feb, [facility] [id number] [place] [address] Feb, Anticoagulant long-term use Z79.01 [facility] [id number] [place] [address] Feb, Anticoagulant long-term use Z79.01 [facility] [id number] [place] [address] Jan, [place] [id number] [place] [address] Jan, Anticoagulant long-term use Z79.01 [facility] [id number] [place] [address] Jan, Anticoagulant long-term use Z79.01 [facility] [id number] [place] [address] Dec, Anticoagulant long-term use Z79.01 [facility] [id number] [place] [address] Dec, Anticoagulant long-term use Z79.01 [facility] [id number] [place] [address] Dec, Anticoagulant long-term use Z79.01 and Mood disorder F39 [facility] [id number] [place] [address] Dec, [facility] [id number] [place] [address] Nov, [facility] [id number] [place] [address] Nov, Anticoagulant long-term use Z79.01 [facility] [address], [place] [address] Nov, Anticoagulant long-term use Z79.01 [facility] [id number] [place] [address] September, Anticoagulant long-term use Z79.01 [facility] [id number] [place] [address] Jul, Anticoagulant long-term use Z79.01 [facility] [id number] [place] [address] May, Anticoagulant long-term use Z79.01 [place] [id number] [place] [address] May, Anticoagulant long-term use Z79.01 [place] [id number] [place] [address] May, Anticoagulant long-term use Z79.01 [place] [id number] [place] [address] May, Anticoagulant long-term use Z79.01 [place] [id number] [place] [address] May, [place] [id number] [place] [address] May, Congestive heart failure, unspecified congestive heart failure chronicity, unspecified congestive heart failure type I50.9 and Pulmonary congestion R09.89 [place] [id number] [place] [address] Apr, Cough R05 ; Congestive heart failure, unspecified congestive heart failure chronicity, unspecified congestive heart failure type I50.9 and Pulmonary congestion R09.89 [place] [id number] [place] [address] Mar, Hematuria R31.9 [place] [id number] [place] [address] Mar, [facility] [id number] [place] [address] Mar, Anticoagulant long-term use Z79.01 [facility] [id number] [place] [address] Mar, [facility] [address] [address] Mar, Hematuria R31.9 and Infective urethritis N34.2 [place] [address] [address] Mar, Anticoagulant long-term use Z79.01 [facility] [id number] [place] [address] Mar, Anticoagulant long-term use Z79.01 [place] [id number] [place] [address] Mar, [facility] [id number] [place] [address] Mar, Anticoagulant long-term use Z79.01 [facility] [id number] [place] [address] Feb, Peristomal skin breakdown L98.499 [place] [id number] [place] [address] Feb, [facility] [id number] [place] [address] Feb, UTI (urinary tract infection) N39.0 [place] [id number] [place] [address] Jan, [facility] [id number] [place] [address] Dec, High risk medication use V58.69 [facility] [id number] [place] [address] Nov, High risk medication use V58.69 [facility] [address] [facility] [id number] [address] Nov, [facility] [address] [facility] [id number], [place] [address] Nov, UTI (lower urinary tract infection) 599.0 ; URI, acute 465.9 ; Insomnia 780.52 ; Anxiety 300.00 and Lower limb amputation, unspecified level V49.70 [facility] [address] [facility] [id number], [place] [address] Oct, UTI (lower urinary tract infection) 599.0 ; URI, acute 465.9 ; Insomnia 780.52 ; Anxiety 300.00 and Lower limb amputation, unspecified level V49.70 [facility] [address] [facility] [id number], [place] [address] Aug, [facility] [address] [facility] [id number], [place] [address] Aug, [facility] [id number], [place] [address] Jul, [facility] [id number] [address] Jul, [facility] [id number], [place] [address] Jun, [facility] [id number], [place] [address] Jun, [facility] [id number], [place] [address] Mar, [facility] [id number], [place] [address] Mar, [facility] [id number], [place] [address] Mar, [facility] [id number] [address] 05 Mar, 2013 [facility] [place] [facility] [address] [id number] [place] [address] Mar, 2013 [facility] [place] [facility] [address] [id number] [place] [address] Feb, [facility] [place] [facility] [address] [id number] [place] [address] Feb, [facility] [place] [facility] [address] [id number] [place] [address] Feb, [facility] [place] [facility] [address] [id number] [place] [address] Feb, [facility] [place] [facility] [address] [id number] [place] [address] Feb, [facility] [place] [facility] [address] [id number] [place] [address] Feb, [facility] [place] [facility] [address] [id number] [place] [address] Feb, [facility] [place] [facility] [address] [id number] [place] [address] Feb, [facility] [place] [facility] [address] [id number] [place] [address] Feb, [facility] [place] [facility] [address] [id number] [place] [address] Feb, [facility] [place] [facility] [address] [id number] [place] [address] Feb, [facility] [place] [facility] [address] [id number] [place] [address] Feb, [facility] [place] [facility] [address] [id number] [place] [address] Feb, [facility] [place] [facility] [address] [id number] [place] [address] Feb, [facility] [place] [facility] [address] [id number] [place] [address] Feb, [facility] [place] [facility] [address] [id number] [place] [address] Feb, [facility] [place] [facility] [address] [id number] [place] [address] Jan, [facility] [place] [facility] [address] [id number] [place] [address] Jan, [facility] [place] [facility] [address] [id number] [place] [address] Jan, [facility] [place] [facility] [address] [id number] [place] [address] Jan, [facility] [place] [facility] [address] [id number] [place] [address] Jan, [facility] [place] [facility] [address] [id number] [place] [address] Nov, [facility] [place] [facility] [address] [id number] [place] [address] Nov, [facility] [place] [facility] [address] [id number] [place] [address] Nov, [facility] [place] [facility] [address] [id number] [place] [address] Nov, [facility] [place] [facility] [address] [id number], [place] [address] Nov, [facility] [place] [facility] [address] [id number] [place] [address] Nov, [facility] [place] [facility] [address] [id number] [place] [address] Oct, [facility] [place] [facility] [address] [id number] [place] [address] Oct, [facility] [place] [facility] [address] [id number] [place] [address] Oct, [facility] [place] [facility] [address] [id number] [place] [address] Oct, [facility] [place] [facility] [address] [id number] [place] [address] Oct, [facility] [place] [facility] [address] [id number] [place] [address] Oct, [facility] [place] [facility] [address] [id number] [place] [address] Oct, [facility] [place] [facility] [address] [id number] [place] [address] September, [facility] [place] [facility] [address] [id number] [place] [address] September, [facility] [place] [facility] [address] [id number] [place] [address] September, [facility] [place] [facility] [address] [id number] [place] [address] September, [facility] [place] [facility] [address] [id number] [place] [address] September, [facility] [place] [facility] [address] [id number] [place] [address] September, [facility] [place] [facility] [address] [id number] [place] [address] September, [facility] [place] [facility] [address] [id number] [place] [address] September, [facility] [place] [facility] [address] [id number] [place] [address] Aug, [facility] [place] [facility] [address] [id number] [place] [address] Aug, [facility] [place] [facility] [address] [id number] [place] [address] Aug, [facility] [place] [facility] [address] [id number] [place] [address] Aug, [facility] [place] [facility] [address] [id number] [place] [address] Jul, [facility] [place] [facility] [address] [id number] [place] [address] Jul, [facility] [place] [facility] [address] [id number] [place] [address] Jun, [facility] [place] [facility] [address] [id number] [place] [address] Jun, [facility] [place] [facility] [address] [id number] [place] [address] Jun, [facility] [place] [facility] [address] [id number] [place] [address] Jun, [facility] [place] [facility] [address] [id number] [place] [address] Jun, [facility] [place] [facility] [address] [id number] [place] [address] Jun, [facility] [place] [facility] [address] [id number] [place] [address] May, [facility] [place] [facility] [address] [id number] [place] [address] May, [facility] [place] [facility] [address] [id number] [place] [address] May, [facility] [place] [facility] [address] [id number] [place] [address] May, [facility] [place] [facility] [address] [id number] [place] [address] May, [facility] [place] [facility] [address] [id number] [place] [address] May, [facility] [place] [facility] [address] [id number] [place] [address] Feb, [facility] [address] [id number] [place] [address] Feb, [facility] [place] [facility] [address] [id number] [place] [address] Feb, [facility] [place] [facility] [address] [id number] [place] [address] Feb, [facility] [place] [facility] [address] [id number] [place] [address] Jan, [facility] [place] [facility] [address] [id number] [place] [address] Jan, [facility] [place] [facility] [address] [id number] [place] [address] Jan, [facility] [place] [facility] [address] [id number] [place] [address] Dec, [facility] [place] [facility] [address] [id number] [place] [address] Nov, [facility] [place] [facility] [address] [id number] [place] [address] Nov, [facility] [place] [facility] [address] [id number] [place] [address] Nov, [facility] [place] [facility] [address] [id number], [place] [address] Nov, [facility] [place] [facility] [address] [id number] [place] [address] Nov, [facility] [place] [facility] [address] [id number] [place] [address] Oct, [facility] [place] [facility] [address] [id number] [place] [address] September, [facility] [place] [facility] [address] [id number] [place] [address] September, [facility] [place] [facility] [address] [id number] [place] [address] 29 Aug, 2012 [facility] [address] [id number] [place] [address] Aug, [facility] [address] [id number] [place] [address] Jul, [facility] [address] [id number] [place] [address] Jul, [facility] [address] [id number] [place] [address] Jul, [facility] [address] [id number] [place] [address] Jul, [facility] [address] [id number] [place] [address] Jun, [facility] [address] [id number] [place] [address] Jun, [facility] [address] [id number] [place] [address] Jun, [facility] [address] [id number] [place] [address] May, [facility] [address] [id number] [place] [address] May, [facility] [address] [id number] [place] [address] May, [facility] [address] [id number] [place] [address] May, [facility] [address] [id number] [place] [address] Apr, [facility] [place] [facility] [address] [id number] [place] [address] Apr, [facility] [address] [id number] [place] [address] Apr, [facility] [place] [facility] [address] [id number] [place] [address] Apr, [facility] [place] [facility] [address] [id number] [place] [address] Apr, [facility] [place] [facility] [address] [facility] [id number] [place] [address] Apr, [facility] [place] [facility] [address] [id number], [place] [address] Mar, [facility] [place] [facility] [address] [id number] [place] [address] Mar, [facility] [place] [facility] [address] [id number] [place] [address] Mar, [facility] [place] [facility] [address] [facility] [id number] [place] [address] Mar, [facility] [place] [facility] [address] [id number], [place] [address] Mar, [facility] [place] [facility] [address] [facility] [id number], [place] [address] Mar, [facility] [place] [facility] [address] [facility] [id number], [place] [address] Feb, [facility] [place] [facility] [address] [facility] [id number], [place] [address] Feb, [facility] [place] [facility] [address] [id number], [place] [address] Feb, [facility] [place] [facility] [address] [id number], [place] [address] Feb, [facility] [place] [facility] [address] [facility] [id number], [place] [address] Jan, [facility] [place] [facility] [address] [facility] [id number], [place] [address] Jan, [facility] [place] [facility] [address] [id number] [place] [address] 24 Jan, 2012 [facility] [place] [facility] [address] [id number] [place] [address] 10 Jan, 2012 [facility] [place] [facility] [address] [id number] [place] [address] Dec, [facility] [place] [facility] [address] [id number] [place] [address] Dec, [facility] [place] [facility] [address] [id number] [place] [address] Nov, [facility] [place] [facility] [address] [id number] [place] [address] Oct, [facility] [place] [facility] [address] [id number] [place] [address] Oct, [facility] [place] [facility] [address] [id number] [place] [address] Oct, [facility] [place] [facility] [address] [id number] [place] [address] September, [facility] [place] [facility] [address] [id number] [place] [address] September, [facility] [place] [facility] [address] [id number] [place] [address] September, [facility] [place] [facility] [address] [id number] [place] [address] September, [facility] [place] [facility] [address] [id number] [place] [address] September, [facility] [place] [facility] [address] [id number] [place] [address] September, [facility] [place] [facility] [address] [id number] [place] [address] September, [facility] [place] [facility] [address] [id number] [place] [address] Jul, [facility] [place] [facility] [address] [id number] [place] [address] Jul, [facility] [place] [facility] [address] [id number] [place] [address] 28 Jun, 2011 [facility] [place] [facility] [address] [id number] [place] [address] Jun, [facility] [place] [facility] [address] [id number] [place] [address] Jun, [facility] [place] [facility] [address] [id number] [place] [address] May, [facility] [place] [facility] [address] [id number] [place] [address] Mar, [facility] [place] [facility] [address] [id number] [place] [address] Mar, [facility] [place] [facility] [address] [id number] [place] [address] 14 Mar, 2011 [facility] [place] [facility] [address] [id number] [place] [address] Feb, [facility] [place] [facility] [address] [id number] [place] [address] Feb, [facility] [place] [facility] [address] [id number] [place] [address] Dec, [facility] [place] [facility] [address] [id number], [place] [address] 15 May, 2009 [facility] [place] [facility] [address] [id number] [place] [address] Apr, [facility] [place] [facility] [address] [id number] [place] [address] Apr, [facility] [place] [facility] [address] [id number], [place] [address] 14 Apr, 2009 [facility] [place] [facility] [address] [id number] [place] [address] Apr, [facility] [address] [facility] [id number] [place] [address] Feb, [facility] [address] [facility] [id number], [place] [address] Oct, IMMUNIZATIONS Vaccine Route Administration Date Status B12, VITAMIN (UP TO 1000 MCG) IM Intramuscular July 25, 2017 Administered SOCIAL HISTORY Never Assessed REASON FOR VISIT B12 injection- Nj Zhu RN PLAN OF CARE Activity Details Follow Up 4 Weeks Reason: VITAL SIGNS MEDICATIONS Medication Instructions Dosage Frequency Start Date End Date Duration Status Cyanocobalamin 1000 MCG/ML Orally once monthly as directed Jul, Active RESULTS No Results PROCEDURES Procedure Date Ordered Result Body Site B12, VITAMIN (UP TO 1000 MCG) July 25, 2017 THER/PROPH/DIAG INJ, SC/IM July 25, 2017 INSTRUCTIONS MEDICATIONS ADMINISTERED No Known [...] 5th toe removal 06/25/2009 Hospitalization History pneumonia, hypoxia-[facility] 11/03/16
--- OUTSIDE RECORDS SUMMARY | 2018-12-05 12:02 | XMS REPORT ---
Author Author ERIK SAMAYOA Organization [facility] Address [address] [place] [address] Care Team Providers Care Donor Relations Coordinator Name Role Phone ERIK SAMAYOA Unavailable PROBLEMS Type Condition ICD9-CM Code [id number] Code Onset Dates Condition Status SNOMED Code Problem Mood disorder F39 Active 60430639 Problem PVD (peripheral vascular disease) I73.9 Active 104427956 Problem Amput leg, unil NOS-comp S88.919A Active 25951597 Problem Acute cystitis with hematuria N30.01 Active 50103273 Problem Major depressive disorder, single episode, unspecified F32.9 Active 81818785 Problem Anticoagulant long-term use Z79.01 Active 811533225 Problem Vitamin B12 deficiency E53.8 Dec, Active 168940144 Problem Chronic obstructive pulmonary disease, unspecified COPD type J44.9 Active 26758969 Problem Congestive heart failure, unspecified congestive heart failure chronicity, unspecified congestive heart failure type I50.9 Active 31002664 Problem Chronic fatigue, unspecified R53.82 Active 947377667 Problem Peripheral vascular disease I73.9 Active 545146577 Problem Chronic fatigue R53.82 Active 82991893 ALLERGIES No Information ENCOUNTERS Encounter Location Date Diagnosis [facility] [id number], [place] [address] Dec, [facility] [id number] [place] [address] Nov, Mood disorder F39 [facility] [id number] [place] [address] Nov, [facility] [id number] [place] [address] Oct, Mood disorder F39 ; Chronic obstructive pulmonary disease, unspecified COPD type J44.9 ; Peripheral vascular disease I73.9 and Chronic fatigue R53.82 [facility] [id number] [place] [address] September, Anticoagulant long-term use Z79.01 and Congestive heart failure, unspecified congestive heart failure chronicity, unspecified congestive heart failure type I50.9 [facility] [id number] [place] [address] September, Vitamin B12 deficiency E53.8 [place] [address] [address] September, Anticoagulant long-term use Z79.01 [place] [address] [address] September, Anticoagulant long-term use Z79.01 and Congestive heart failure, unspecified congestive heart failure chronicity, unspecified congestive heart failure type I50.9 [place] [address] [address] Aug, Chronic fatigue, unspecified R53.82 [place] [address] [address] Aug, Anticoagulant long-term use Z79.01 [place] [address] [address] Aug, Nausea R11.0 and Weakness R53.1 [place] [address] [address] Aug, [facility] [address] [address] Aug, Hematuria R31.9 and Acute cystitis with hematuria N30.01 [place] [address] [address] Aug, [facility] [address] [address] Jul, Vitamin B 12 deficiency E53.8 [place] [id number] [place] [address] Jul, Anticoagulant long-term use Z79.01 [place] [id number] [place] [address] Jun, Anticoagulant long-term use Z79.01 [place] [id number] [place] [address] Jun, Chronic fatigue, unspecified R53.82 [place] [id number] [place] [address] May, Flu-like symptoms R68.89 and Influenza A J10.1 [place] [address] [address] May, [place] [id number] [place] [address] May, Chronic fatigue, unspecified R53.82 [place] [id number] [place] [address] May, Anticoagulant long-term use Z79.01 [place] [id number] [place] [address] Apr, Medicare welcome exam Z00.00 ; Anticoagulant long-term use Z79.01 ; Medicare annual wellness visit, initial Z00.00 ; Medicare annual wellness visit, subsequent Z00.00 and Chronic fatigue, unspecified R53.82 [place] [id number] [place] [address] Mar, Chronic fatigue, unspecified R53.82 [place] [id number] [place] [address] Mar, Anticoagulant long-term use Z79.01 [place] [id number] [place] [address] 07 Mar, 2017 Anticoagulant long-term use Z79.01 and Hematuria R31.9 [place] [address] [place] [address] Mar, Hematuria R31.9 [facility] [id number] [place] [address] Feb, Anticoagulant long-term use Z79.01 [facility] [id number] [place] [address] Feb, Anticoagulant long-term use Z79.01 [facility] [id number] [place] [address] Feb, Anticoagulant long-term use Z79.01 [facility] [id number] [place] [address] Feb, Chronic fatigue, unspecified R53.82 [place] [id number] [place] [address] Feb, Anticoagulant long-term use Z79.01 [facility] [id number] [place] [address] Feb, Congestive heart failure, unspecified congestive heart failure chronicity, unspecified congestive heart failure type I50.9 [place] [id number] [place] [address] Feb, Congestive heart failure, unspecified congestive heart failure chronicity, unspecified congestive heart failure type I50.9 [place] [id number] [place] [address] Feb, [facility] [id number] [place] [address] Jan, Anticoagulant long-term use Z79.01 [facility] [id number] [place] [address] Jan, [facility] [id number] [place] [address] Jan, Anticoagulant long-term use Z79.01 and Hematuria R31.9 [facility] [address] [place] [address] Jan, Anticoagulant long-term use Z79.01 [facility] [id number] [place] [address] Jan, Anticoagulant long-term use Z79.01 [facility] [id number] [place] [address] Jan, Chronic fatigue, unspecified R53.82 [facility] [id number] [place] [address] Dec, Chronic fatigue, unspecified R53.82 [place] [address] [address] Dec, [facility] [id number] [place] [address] Dec, Chronic fatigue, unspecified R53.82 and Encounter for therapeutic drug level monitoring Z51.81 [facility] [id number] [place] [address] Nov, Encounter for therapeutic drug level monitoring Z51.81 [place] [id number] [place] [address] Nov, Hematuria R31.9 [facility] [id number] [place] [address] Nov, Hematuria R31.9 ; Anticoagulant long-term use Z79.01 and PVD (peripheral vascular disease) I73.9 [facility] [id number] [place] [address] Nov, Anticoagulant long-term use Z79.01 [facility] [id number] [place] [address] Nov, Anticoagulant long-term use Z79.01 [facility] [id number] [place] [address] Nov, [facility] [address] [place] [address] Nov, Hematuria R31.9 and Acute cystitis with hematuria N30.01 [facility] [address] [id number] Oct, [facility] [address] [address] Oct, [place] [address] [address] Oct, Hematuria R31.9 [place] [address] [address] Oct, Hematuria R31.9 [place] [address] [address] Oct, Anticoagulant long-term use Z79.01 [place] [address] [address] Oct, Anticoagulant long-term use Z79.01 [place] [address] [address] Oct, [place] [address] [address] September, PVD (peripheral vascular disease) I73.9 ; Amput leg, unil NOS-comp S88.919A ; Acute cystitis without hematuria N30.00 ; Anticoagulant long-term use Z79.01 and Hypokalemia E87.6 [place] [address] [address] Aug, Anticoagulant long-term use Z79.01 and Bronchitis J40 [place] [address] [address] Jul, [place] [address] [address] Jul, Anticoagulant long-term use Z79.01 and Mood disorder F39 [place] [id number] [place] [address] Jul, [facility] [id number] [place] [address] May, [facility] [id number] [place] [address] May, Hypokalemia E87.6 [facility] [address] [address] May, Mood disorder F39 [facility] [address] [address] May, Anticoagulant long-term use Z79.01 [facility] [id number] [place] [address] Apr, Anticoagulant long-term use Z79.01 [facility] [address] [address] Apr, Anticoagulant long-term use Z79.01 [facility] [id number] [place] [address] Apr, [facility] [id number] [place] [address] Apr, Anticoagulant long-term use Z79.01 [facility] [id number] [place] [address] Apr, Anticoagulant long-term use Z79.01 [facility] [id number] [place] [address] Apr, Anticoagulant long-term use Z79.01 [facility] [id number] [place] [address] Mar, [facility] [id number] [place] [address] Mar, [facility] [id number] [place] [address] Mar, Anticoagulant long-term use Z79.01 [facility] [id number] [place] [address] Feb, [facility] [id number] [place] [address] Feb, [facility] [id number] [place] [address] Feb, Anticoagulant long-term use Z79.01 [facility] [id number] [place] [address] Feb, Anticoagulant long-term use Z79.01 [facility] [id number] [place] [address] Jan, [place] [id number] [place] [address] Jan, Anticoagulant long-term use Z79.01 [facility] [id number] [place] [address] Jan, Anticoagulant long-term use Z79.01 [facility] [id number] [place] [address] Dec, Anticoagulant long-term use Z79.01 [facility] [id number] [place] [address] Dec, Anticoagulant long-term use Z79.01 [facility] [id number] [place] [address] Dec, Anticoagulant long-term use Z79.01 and Mood disorder F39 [facility] [id number] [place] [address] Dec, [facility] [id number] [place] [address] Nov, [facility] [id number] [place] [address] Nov, Anticoagulant long-term use Z79.01 [facility] [address], [place] [address] Nov, Anticoagulant long-term use Z79.01 [facility] [id number] [place] [address] September, Anticoagulant long-term use Z79.01 [facility] [id number] [place] [address] Jul, Anticoagulant long-term use Z79.01 [facility] [id number] [place] [address] May, Anticoagulant long-term use Z79.01 [place] [id number] [place] [address] May, Anticoagulant long-term use Z79.01 [place] [id number] [place] [address] May, Anticoagulant long-term use Z79.01 [place] [id number] [place] [address] May, Anticoagulant long-term use Z79.01 [place] [id number] [place] [address] May, [place] [id number] [place] [address] May, Congestive heart failure, unspecified congestive heart failure chronicity, unspecified congestive heart failure type I50.9 and Pulmonary congestion R09.89 [place] [id number] [place] [address] Apr, Cough R05 ; Congestive heart failure, unspecified congestive heart failure chronicity, unspecified congestive heart failure type I50.9 and Pulmonary congestion R09.89 [place] [id number] [place] [address] Mar, Hematuria R31.9 [place] [id number] [place] [address] Mar, [facility] [id number] [place] [address] Mar, Anticoagulant long-term use Z79.01 [facility] [id number] [place] [address] Mar, [facility] [address] [address] Mar, Hematuria R31.9 and Infective urethritis N34.2 [place] [address] [address] Mar, Anticoagulant long-term use Z79.01 [facility] [id number] [place] [address] Mar, Anticoagulant long-term use Z79.01 [place] [id number] [place] [address] Mar, [facility] [id number] [place] [address] Mar, Anticoagulant long-term use Z79.01 [facility] [id number] [place] [address] Feb, Peristomal skin breakdown L98.499 [place] [id number] [place] [address] Feb, [facility] [id number] [place] [address] Feb, UTI (urinary tract infection) N39.0 [place] [id number] [place] [address] Jan, [facility] [id number] [place] [address] Dec, High risk medication use V58.69 [facility] [id number] [place] [address] Nov, High risk medication use V58.69 [facility] [address] [facility] [id number] [address] Nov, [facility] [address] [facility] [id number], [place] [address] Nov, UTI (lower urinary tract infection) 599.0 ; URI, acute 465.9 ; Insomnia 780.52 ; Anxiety 300.00 and Lower limb amputation, unspecified level V49.70 [facility] [address] [facility] [id number], [place] [address] Oct, UTI (lower urinary tract infection) 599.0 ; URI, acute 465.9 ; Insomnia 780.52 ; Anxiety 300.00 and Lower limb amputation, unspecified level V49.70 [facility] [address] [facility] [id number], [place] [address] Aug, [facility] [address] [facility] [id number], [place] [address] Aug, [facility] [id number] [address] Jul, [facility] [id number], [place] [address] Jul, [facility] [id number] [address] Jun, [facility] [id number] [address] Jun, [facility] [id number], [place] [address] Mar, [facility] [id number] [address] Mar, [facility] [id number] [address] Mar, [facility] [id number] [place] [address] 05 Mar, 2013 [facility] [place] [facility] [address] [id number] [place] [address] Mar, 2013 [facility] [place] [facility] [address] [id number] [place] [address] Feb, [facility] [place] [facility] [address] [id number] [place] [address] Feb, [facility] [place] [facility] [address] [id number] [place] [address] Feb, [facility] [place] [facility] [address] [id number] [place] [address] Feb, [facility] [place] [facility] [address] [id number] [place] [address] Feb, [facility] [place] [facility] [address] [id number] [place] [address] Feb, [facility] [place] [facility] [address] [id number] [place] [address] Feb, [facility] [place] [facility] [address] [id number] [place] [address] Feb, [facility] [place] [facility] [address] [id number] [place] [address] Feb, [facility] [place] [facility] [address] [id number] [place] [address] Feb, [facility] [place] [facility] [address] [id number] [place] [address] Feb, [facility] [place] [facility] [address] [id number] [place] [address] Feb, [facility] [place] [facility] [address] [id number] [place] [address] Feb, [facility] [place] [facility] [address] [id number] [place] [address] Feb, [facility] [place] [facility] [address] [id number] [place] [address] Feb, [facility] [place] [facility] [address] [id number] [place] [address] Feb, [facility] [place] [facility] [address] [id number] [place] [address] Jan, [facility] [place] [facility] [address] [id number] [place] [address] Jan, [facility] [place] [facility] [address] [id number] [place] [address] Jan, [facility] [place] [facility] [address] [id number] [place] [address] Jan, [facility] [place] [facility] [address] [id number] [place] [address] Jan, [facility] [place] [facility] [address] [id number] [place] [address] Nov, [facility] [place] [facility] [address] [id number] [place] [address] Nov, [facility] [place] [facility] [address] [id number] [place] [address] Nov, [facility] [place] [facility] [address] [id number] [place] [address] Nov, [facility] [place] [facility] [address] [id number], [place] [address] Nov, [facility] [place] [facility] [address] [id number] [place] [address] Nov, [facility] [place] [facility] [address] [id number] [place] [address] Oct, [facility] [place] [facility] [address] [id number] [place] [address] Oct, [facility] [place] [facility] [address] [id number] [place] [address] Oct, [facility] [place] [facility] [address] [id number] [place] [address] Oct, [facility] [place] [facility] [address] [id number] [place] [address] Oct, [facility] [place] [facility] [address] [id number] [place] [address] Oct, [facility] [place] [facility] [address] [id number] [place] [address] Oct, [facility] [place] [facility] [address] [id number] [place] [address] September, [facility] [place] [facility] [address] [id number] [place] [address] September, [facility] [place] [facility] [address] [id number] [place] [address] September, [facility] [place] [facility] [address] [id number] [place] [address] September, [facility] [place] [facility] [address] [id number] [place] [address] September, [facility] [place] [facility] [address] [id number] [place] [address] September, [facility] [place] [facility] [address] [id number] [place] [address] September, [facility] [place] [facility] [address] [id number] [place] [address] September, [facility] [place] [facility] [address] [id number] [place] [address] Aug, [facility] [place] [facility] [address] [id number] [place] [address] Aug, [facility] [place] [facility] [address] [id number] [place] [address] Aug, [facility] [place] [facility] [address] [id number] [place] [address] Aug, [facility] [place] [facility] [address] [id number] [place] [address] Jul, [facility] [place] [facility] [address] [id number] [place] [address] Jul, [facility] [place] [facility] [address] [id number] [place] [address] Jun, [facility] [place] [facility] [address] [id number] [place] [address] Jun, [facility] [place] [facility] [address] [id number] [place] [address] Jun, [facility] [place] [facility] [address] [id number] [place] [address] Jun, [facility] [place] [facility] [address] [id number] [place] [address] Jun, [facility] [place] [facility] [address] [id number] [place] [address] Jun, [facility] [place] [facility] [address] [id number] [place] [address] May, [facility] [place] [facility] [address] [id number] [place] [address] May, [facility] [place] [facility] [address] [id number] [place] [address] May, [facility] [place] [facility] [address] [id number] [place] [address] May, [facility] [place] [facility] [address] [id number] [place] [address] May, [facility] [place] [facility] [address] [id number] [place] [address] May, [facility] [place] [facility] [address] [id number] [place] [address] Feb, [facility] [address] [id number] [place] [address] Feb, [facility] [place] [facility] [address] [id number] [place] [address] Feb, [facility] [place] [facility] [address] [id number] [place] [address] Feb, [facility] [place] [facility] [address] [id number] [place] [address] Jan, [facility] [place] [facility] [address] [id number] [place] [address] Jan, [facility] [place] [facility] [address] [id number] [place] [address] Jan, [facility] [place] [facility] [address] [id number] [place] [address] Dec, [facility] [place] [facility] [address] [id number] [place] [address] Nov, [facility] [place] [facility] [address] [id number] [place] [address] Nov, [facility] [place] [facility] [address] [id number] [place] [address] Nov, [facility] [place] [facility] [address] [id number], [place] [address] Nov, [facility] [place] [facility] [address] [id number] [place] [address] Nov, [facility] [place] [facility] [address] [id number] [place] [address] Oct, [facility] [place] [facility] [address] [id number] [place] [address] September, [facility] [place] [facility] [address] [id number] [place] [address] September, [facility] [place] [facility] [address] [id number] [place] [address] 29 Aug, 2012 [facility] [address] [id number] [place] [address] Aug, [facility] [address] [id number] [place] [address] Jul, [facility] [address] [id number] [place] [address] Jul, [facility] [address] [id number] [place] [address] Jul, [facility] [address] [id number] [place] [address] Jul, [facility] [address] [id number] [place] [address] Jun, [facility] [address] [id number] [place] [address] Jun, [facility] [address] [id number] [place] [address] Jun, [facility] [address] [id number] [place] [address] May, [facility] [address] [id number] [place] [address] May, [facility] [address] [id number] [place] [address] May, [facility] [address] [id number] [place] [address] May, [facility] [address] [id number] [place] [address] Apr, [facility] [place] [facility] [address] [id number] [place] [address] Apr, [facility] [address] [id number] [place] [address] Apr, [facility] [place] [facility] [address] [id number] [place] [address] Apr, [facility] [place] [facility] [address] [id number] [place] [address] Apr, [facility] [place] [facility] [address] [facility] [id number] [place] [address] Apr, [facility] [place] [facility] [address] [id number], [place] [address] Mar, [facility] [place] [facility] [address] [id number] [place] [address] Mar, [facility] [place] [facility] [address] [id number] [place] [address] Mar, [facility] [place] [facility] [address] [facility] [id number] [place] [address] Mar, [facility] [place] [facility] [address] [id number], [place] [address] Mar, [facility] [place] [facility] [address] [facility] [id number], [place] [address] Mar, [facility] [place] [facility] [address] [facility] [id number], [place] [address] Feb, [facility] [place] [facility] [address] [facility] [id number], [place] [address] Feb, [facility] [place] [facility] [address] [id number], [place] [address] Feb, [facility] [place] [facility] [address] [id number], [place] [address] Feb, [facility] [place] [facility] [address] [facility] [id number], [place] [address] Jan, [facility] [place] [facility] [address] [facility] [id number], [place] [address] Jan, [facility] [place] [facility] [address] [id number] [place] [address] 24 Jan, 2012 [facility] [place] [facility] [address] [id number] [place] [address] 10 Jan, 2012 [facility] [place] [facility] [address] [id number] [place] [address] Dec, [facility] [place] [facility] [address] [id number] [place] [address] Dec, [facility] [place] [facility] [address] [id number] [place] [address] Nov, [facility] [place] [facility] [address] [id number] [place] [address] Oct, [facility] [place] [facility] [address] [id number] [place] [address] Oct, [facility] [place] [facility] [address] [id number] [place] [address] Oct, [facility] [place] [facility] [address] [id number] [place] [address] September, [facility] [place] [facility] [address] [id number] [place] [address] September, [facility] [place] [facility] [address] [id number] [place] [address] September, [facility] [place] [facility] [address] [id number] [place] [address] September, [facility] [place] [facility] [address] [id number] [place] [address] September, [facility] [place] [facility] [address] [id number] [place] [address] September, [facility] [place] [facility] [address] [id number] [place] [address] September, [facility] [place] [facility] [address] [id number] [place] [address] Jul, [facility] [place] [facility] [address] [id number] [place] [address] Jul, [facility] [place] [facility] [address] [id number] [place] [address] 28 Jun, 2011 [facility] [place] [facility] [address] [id number] [place] [address] Jun, [facility] [place] [facility] [address] [id number] [place] [address] Jun, [facility] [place] [facility] [address] [id number] [place] [address] May, [facility] [place] [facility] [address] [id number] [place] [address] Mar, [facility] [place] [facility] [address] [id number] [place] [address] Mar, [facility] [place] [facility] [address] [id number] [place] [address] 14 Mar, 2011 [facility] [place] [facility] [address] [id number] [place] [address] Feb, [facility] [place] [facility] [address] [id number] [place] [address] Feb, [facility] [place] [facility] [address] [id number] [place] [address] Dec, [facility] [place] [facility] [address] [id number], [place] [address] 15 May, 2009 [facility] [place] [facility] [address] [id number] [place] [address] Apr, [facility] [place] [facility] [address] [id number] [place] [address] Apr, [facility] [place] [facility] [address] [id number], [place] [address] 14 Apr, 2009 [facility] [place] [facility] [address] [id number] [place] [address] Apr, [facility] [address] [facility] [id number] [place] [address] Feb, [facility] [address] [facility] [id number], [place] [address] Oct, IMMUNIZATIONS No Known Immunizations SOCIAL HISTORY Never Assessed REASON FOR VISIT lab PLAN OF CARE VITAL SIGNS MEDICATIONS Unknown Medications RESULTS Name Result Date Reference Range INR (IN HOUSE) 2017-07-25 INR 2.9 1.10 - 3.30 PREVIOUS INR 2.1 CURRENT COUMADIN DOSE 1 mg qd NEW COUMADIN DOSE Lot # [id number] Exp date 03/2018 PROCEDURES Procedure Date Ordered Result Body Site PROTHROMBIN TIME July 25, 2017 INSTRUCTIONS MEDICATIONS ADMINISTERED No [...] removal 06/25/2009 Hospitalization History pneumonia, hypoxia-[facility] 11/03/16
--- OUTSIDE RECORDS SUMMARY | 2018-12-05 12:03 | XMS REPORT ---
Author Author ERIK SAMAYOA Organization [facility] Address [address] [place] [address] Care Team Providers Care Clinical Psychology Professor Name Role Phone ERIK SAMAYOA Unavailable PROBLEMS Type Condition ICD9-CM Code UFU74-WC Code Onset Dates Condition Status SNOMED Code Problem Acute cystitis with hematuria N30.01 Active 85350543 Problem Major depressive disorder, single episode, unspecified F32.9 Active 38761193 Problem Congestive heart failure, unspecified congestive heart failure chronicity, unspecified congestive heart failure type I50.9 Active 75188646 Problem Chronic fatigue, unspecified R53.82 Active 580321480 Problem Mood disorder F39 Active 03931023 Problem Anticoagulant long-term use Z79.01 Active 118717939 Problem PVD (peripheral vascular disease) I73.9 Active 149285245 Problem Amput leg, unil NOS-comp S88.919A Active 20578998 ALLERGIES No Information ENCOUNTERS Encounter Location Date Diagnosis [facility] [address] [address] Aug, Chronic fatigue, unspecified R53.82 [facility] [address] [address] Aug, Anticoagulant long-term use Z79.01 [facility] [address] [address] Aug, Nausea R11.0 and Weakness R53.1 [facility] [address] [address] Aug, [facility] [address] [address] Aug, Hematuria R31.9 and Acute cystitis with hematuria N30.01 [facility] [address] [place] [address] Aug, [place] [id number] [place] [address] Jul, Vitamin B 12 deficiency E53.8 [place] [id number] [place] [address] Jul, Anticoagulant long-term use Z79.01 [place] [address] [address] Jun, Chronic fatigue, unspecified R53.82 [place] [id number] [place] [address] Jun, Anticoagulant long-term use Z79.01 [place] [id number] [place] [address] May, Flu-like symptoms R68.89 and Influenza A J10.1 [place] [id number] [place] [address] May, [place] [id number] [place] [address] May, Chronic fatigue, unspecified R53.82 [place] [id number] [place] [address] May, Anticoagulant long-term use Z79.01 [place] [id number] [place] [address] Apr, Medicare welcome exam Z00.00 ; Anticoagulant long-term use Z79.01 ; Medicare annual wellness visit, initial Z00.00 ; Medicare annual wellness visit, subsequent Z00.00 and Chronic fatigue, unspecified R53.82 [place] [id number] [place] [address] Mar, Chronic fatigue, unspecified R53.82 [place] [id number] [place] [address] Mar, Anticoagulant long-term use Z79.01 [facility] [address] [address] Mar, Anticoagulant long-term use Z79.01 and Hematuria R31.9 [facility] [id number] [place] [address] Mar, Hematuria R31.9 [facility] [id number] [place] [address] Feb, Anticoagulant long-term use Z79.01 [place] [id number] [place] [address] Feb, Anticoagulant long-term use Z79.01 [place] [id number] [place] [address] Feb, Anticoagulant long-term use Z79.01 [place] [id number] [place] [address] Feb, Chronic fatigue, unspecified R53.82 [place] [id number] [place] [address] Feb, Anticoagulant long-term use Z79.01 [place] [address] [place] [address] Feb, Congestive heart failure, unspecified congestive heart failure chronicity, unspecified congestive heart failure type I50.9 [place] [address], [place] [address] Feb, Congestive heart failure, unspecified congestive heart failure chronicity, unspecified congestive heart failure type I50.9 [place] [address] [place] [address] Feb, [place] [id number] [place] [address] Jan, Anticoagulant long-term use Z79.01 [place] [address] [place] [address] Jan, [place] [address] [place] [address] Jan, Anticoagulant long-term use Z79.01 and Hematuria R31.9 [place] [id number] [place] [address] Jan, Anticoagulant long-term use Z79.01 [place] [id number] [place] [address] Jan, Chronic fatigue, unspecified R53.82 [place] [id number] [place] [address] Jan, Anticoagulant long-term use Z79.01 [place] [id number] [place] [address] Dec, Chronic fatigue, unspecified R53.82 [place] [id number] [place] [address] Dec, [place] [id number] [place] [address] Dec, Chronic fatigue, unspecified R53.82 and Encounter for therapeutic drug level monitoring Z51.81 [place] [id number] [place] [address] Nov, Encounter for therapeutic drug level monitoring Z51.81 [place] [id number] [place] [address] Nov, Hematuria R31.9 [place] [id number] [place] [address] Nov, Hematuria R31.9 ; Anticoagulant long-term use Z79.01 and PVD (peripheral vascular disease) I73.9 [place] [address] [place] [address] Nov, Anticoagulant long-term use Z79.01 [place] [id number] [place] [address] Nov, Anticoagulant long-term use Z79.01 [place] [id number] [place] [address] Nov, [place] [id number] [place] [address] Nov, Hematuria R31.9 and Acute cystitis with hematuria N30.01 [facility] [address] [id number] Oct, [place] [id number] [place] [address] Oct, [place] [address] [address] Oct, Hematuria R31.9 [place] [id number] [place] [address] Oct, Hematuria R31.9 [place] [id number] [place] [address] Oct, Anticoagulant long-term use Z79.01 [place] [address] [address] Oct, Anticoagulant long-term use Z79.01 [place] [id number] [place] [address] Oct, [place] [address] [address] September, PVD (peripheral vascular disease) I73.9 ; Amput leg, unil NOS-comp S88.919A ; Acute cystitis without hematuria N30.00 ; Anticoagulant long-term use Z79.01 and Hypokalemia E87.6 [place] [id number] [place] [address] Aug, Anticoagulant long-term use Z79.01 and Bronchitis J40 [place] [address] [place] [address] Jul, [facility] [id number] [place] [address] Jul, Anticoagulant long-term use Z79.01 and Mood disorder F39 [facility] [id number] [place] [address] Jul, [facility] [address] [address] May, [facility] [address] [address] May, Hypokalemia E87.6 [facility] [address] [address] May, Mood disorder F39 [facility] [address] [address] May, Anticoagulant long-term use Z79.01 [facility] [address] [address] Apr, Anticoagulant long-term use Z79.01 [facility] [address] [address] Apr, Anticoagulant long-term use Z79.01 [facility] [id number] [place] [address] Apr, [facility] [address] [address] Apr, Anticoagulant long-term use Z79.01 [facility] [address] [address] Apr, Anticoagulant long-term use Z79.01 [facility] [id number] [place] [address] Apr, Anticoagulant long-term use Z79.01 [facility] [address] [address] Mar, [facility] [id number] [place] [address] Mar, [facility] [id number] [place] [address] Mar, Anticoagulant long-term use Z79.01 [facility] [id number] [place] [address] Feb, [facility] [id number] [place] [address] Feb, [facility] [address] [address] Feb, Anticoagulant long-term use Z79.01 [facility] [id number] [place] [address] Feb, Anticoagulant long-term use Z79.01 [facility] [id number] [place] [address] Jan, [facility] [id number] [place] [address] Jan, Anticoagulant long-term use Z79.01 [facility] [id number] [place] [address] Jan, Anticoagulant long-term use Z79.01 [facility] [id number] [place] [address] Dec, Anticoagulant long-term use Z79.01 [facility] [id number] [place] [address] Dec, Anticoagulant long-term use Z79.01 [facility] [id number] [place] [address] Dec, Anticoagulant long-term use Z79.01 and Mood disorder F39 [facility] [id number] [place] [address] Dec, [facility] [address], [place] [address] Nov, [facility] [id number] [place] [address] Nov, Anticoagulant long-term use Z79.01 [facility] [id number] [place] [address] Nov, Anticoagulant long-term use Z79.01 [facility] [id number] [place] [address] September, Anticoagulant long-term use Z79.01 [place] [id number] [place] [address] Jul, Anticoagulant long-term use Z79.01 [place] [id number] [place] [address] May, Anticoagulant long-term use Z79.01 [place] [id number] [place] [address] May, Anticoagulant long-term use Z79.01 [place] [id number] [place] [address] May, Anticoagulant long-term use Z79.01 [facility] [address] [place] [address] May, Anticoagulant long-term use Z79.01 [facility] [id number] [place] [address] May, [facility] [id number] [place] [address] May, Congestive heart failure, unspecified congestive heart failure chronicity, unspecified congestive heart failure type I50.9 and Pulmonary congestion R09.89 [facility] [id number] [address] Apr, Cough R05 ; Congestive heart failure, unspecified congestive heart failure chronicity, unspecified congestive heart failure type I50.9 and Pulmonary congestion R09.89 [facility] [id number] [place] [address] Mar, Hematuria R31.9 [facility] [id number] [place] [address] Mar, [facility] [address] [address] Mar, Anticoagulant long-term use Z79.01 [place] [id number] [place] [address] Mar, [place] [address] [address] Mar, Hematuria R31.9 and Infective urethritis N34.2 [place] [address] [address] Mar, Anticoagulant long-term use Z79.01 [place] [address] [address] Mar, Anticoagulant long-term use Z79.01 [place] [id number] [place] [address] Mar, [place] [id number] [place] [address] Mar, Anticoagulant long-term use Z79.01 [place] [id number] [place] [address] Feb, Peristomal skin breakdown L98.499 [place] [address] [address] Feb, [place] [id number] [place] [address] Feb, UTI (urinary tract infection) N39.0 [place] [address] [address] Jan, [facility] [id number] [address] Dec, High risk medication use V58.69 [facility] [address], [place] [address] Nov, High risk medication use V58.69 [facility] [address] [place] [address] Nov, [facility] [address], [place] [address] Nov, UTI (lower urinary tract infection) 599.0 ; URI, acute 465.9 ; Insomnia 780.52 ; Anxiety 300.00 and Lower limb amputation, unspecified level V49.70 [facility] [address], [place] [address] Oct, UTI (lower urinary tract infection) 599.0 ; URI, acute 465.9 ; Insomnia 780.52 ; Anxiety 300.00 and Lower limb amputation, unspecified level V49.70 [facility] [address] [place] [address] Aug, [facility] [address] [place] [address] Aug, [facility] [address], [place] [address] Jul, [facility] [id number] [place] [address] Jul, [facility] [address], [place] [address] Jun, [facility] [address], [place] [address] Jun, [facility] [id number] [address] Mar, [facility] [place] [facility] [address] [id number] [place] [address] Mar, [facility] [place] [facility] [address] [id number] [place] [address] Mar, [facility] [place] [facility] [address] [id number] [place] [address] Mar, [facility] [place] [facility] [address] [id number] [place] [address] Mar, [facility] [place] [facility] [address] [id number] [place] [address] Feb, [facility] [place] [facility] [address] [id number] [place] [address] Feb, [facility] [place] [facility] [address] [id number] [place] [address] Feb, [facility] [place] [facility] [address] [id number] [place] [address] Feb, [facility] [place] [facility] [address] [id number] [place] [address] Feb, [facility] [place] [facility] [address] [id number] [place] [address] Feb, [facility] [place] [facility] [address] [id number] [place] [address] Feb, [facility] [place] [facility] [address] [id number] [place] [address] Feb, [facility] [place] [facility] [address] [id number] [place] [address] Feb, [facility] [place] [facility] [address] [id number] [place] [address] Feb, [facility] [place] [facility] [address] [id number] [place] [address] Feb, [facility] [place] [facility] [address] [id number] [place] [address] Feb, [facility] [place] [facility] [address] [id number] [place] [address] Feb, [facility] [place] [facility] [address] [id number] [place] [address] Feb, [facility] [place] [facility] [address] [id number] [place] [address] Feb, [facility] [place] [facility] [address] [id number] [place] [address] Feb, [facility] [place] [facility] [address] [id number] [place] [address] Jan, [facility] [place] [facility] [address] [id number] [place] [address] Jan, [facility] [place] [facility] [address] [id number] [place] [address] Jan, [facility] [place] [facility] [address] [id number] [place] [address] Jan, [facility] [place] [facility] [address] [id number] [place] [address] Jan, [facility] [place] [facility] [address] [id number] [place] [address] Nov, [facility] [place] [facility] [address] [id number] [place] [address] Nov, [facility] [place] [facility] [address] [id number] [address] Nov, [facility] [place] [facility] [address] [id number] [place] [address] Nov, [facility] [place] [facility] [address] [id number] [place] [address] Nov, [facility] [place] [facility] [address] [id number] [place] [address] Nov, [facility] [place] [facility] [address] [id number] [place] [address] Oct, [facility] [place] [facility] [address] [id number] [place] [address] Oct, [facility] [place] [facility] [address] [id number] [place] [address] Oct, [facility] [place] [facility] [address] [id number] [place] [address] Oct, [facility] [place] [facility] [address] [id number] [place] [address] Oct, [facility] [place] [facility] [address] [id number] [place] [address] Oct, [facility] [place] [facility] [address] [id number] [place] [address] Oct, [facility] [place] [facility] [address] [id number] [place] [address] September, [facility] [place] [facility] [address] [id number] [place] [address] September, [facility] [place] [facility] [address] [id number] [place] [address] September, [facility] [place] [facility] [address] [id number] [place] [address] September, [facility] [place] [facility] [address] [id number] [place] [address] September, [facility] [place] [facility] [address] [id number] [place] [address] September, [facility] [place] [facility] [address] [id number] [place] [address] September, [facility] [place] [facility] [address] [id number] [place] [address] September, [facility] [place] [facility] [address] [id number] [place] [address] Aug, [facility] [place] [facility] [address] [id number] [place] [address] Aug, [facility] [place] [facility] [address] [id number] [place] [address] Aug, [facility] [place] [facility] [address] [id number] [place] [address] Aug, [facility] [place] [facility] [address] [id number] [place] [address] Jul, [facility] [place] [facility] [address] [id number] [place] [address] Jul, [facility] [place] [facility] [address] [id number] [place] [address] Jun, [facility] [place] [facility] [address] [id number] [place] [address] Jun, [facility] [place] [facility] [address] [id number] [place] [address] Jun, [facility] [place] [facility] [address] [id number] [place] [address] Jun, [facility] [place] [facility] [address] [id number] [place] [address] Jun, [facility] [place] [facility] [address] [id number] [place] [address] Jun, [facility] [place] [facility] [address] [id number] [place] [address] May, [facility] [place] [facility] [address] [id number] [place] [address] May, [facility] [place] [facility] [address] [id number] [place] [address] May, [facility] [place] [facility] [address] [id number] [place] [address] May, [facility] [place] [facility] [address] [id number] [place] [address] May, [facility] [address] [id number] [place] [address] May, [facility] [place] [facility] [address] [id number] [place] [address] Feb, [facility] [place] [facility] [address] [id number] [place] [address] Feb, [facility] [place] [facility] [address] [id number] [place] [address] Feb, [facility] [place] [facility] [address] [id number] [place] [address] Feb, [facility] [place] [facility] [address] [id number] [place] [address] Jan, [facility] [place] [facility] [address] [id number] [place] [address] Jan, [facility] [place] [facility] [address] [id number] [place] [address] Jan, [facility] [place] [facility] [address] [id number] [place] [address] Dec, [facility] [place] [facility] [address] [id number] [place] [address] Nov, [facility] [place] [facility] [address] [id number] [place] [address] Nov, [facility] [place] [facility] [address] [id number] [place] [address] Nov, [facility] [place] [facility] [address] [id number] [place] [address] Nov, [facility] [place] [facility] [address] [id number] [place] [address] Nov, [facility] [place] [facility] [address] [id number] [place] [address] Oct, [facility] [place] [facility] [address] [id number] [place] [address] September, [facility] [address] [id number] [place] [address] September, [facility] [address] [id number] [place] [address] Aug, [facility] [address] [id number] [place] [address] Aug, [facility] [address] [id number] [place] [address] Jul, [facility] [address] [id number] [place] [address] Jul, [facility] [address] [id number] [place] [address] Jul, [facility] [address] [id number] [place] [address] Jul, [facility] [address] [id number] [place] [address] Jun, [facility] [address] [id number] [place] [address] Jun, [facility] [address] [id number] [place] [address] Jun, [facility] [address] [id number] [place] [address] May, [facility] [place] [facility] [address] [id number] [place] [address] May, [facility] [place] [facility] [address] [id number] [place] [address] May, [facility] [place] [facility] [address] [id number] [place] [address] May, [facility] [place] [facility] [address] [id number], [place] [address] Apr, [facility] [place] [facility] [address] [id number] [place] [address] Apr, [facility] [place] [facility] [address] [id number] [place] [address] Apr, [facility] [place] [facility] [address] [id number] [place] [address] Apr, [facility] [place] [facility] [address] [id number] [place] [address] Apr, [facility] [place] [facility] [address] [id number] [place] [address] Apr, [facility] [place] [facility] [address] [id number] [place] [address] Mar, [facility] [place] [facility] [address] [id number] [place] [address] Mar, [facility] [place] [facility] [address] [id number] [place] [address] Mar, [facility] [place] [facility] [address] [id number], [place] [address] Mar, [facility] [place] [facility] [address] [id number] [place] [address] Mar, [facility] [place] [facility] [address] [id number], [place] [address] Mar, [facility] [place] [facility] [address] [id number], [place] [address] Feb, [facility] [place] [facility] [address] [id number], [place] [address] Feb, [facility] [place] [facility] [address] [id number], [place] [address] Feb, [facility] [place] [facility] [address] [id number] [place] [address] Feb, [facility] [place] [facility] [address] [id number] [place] [address] 25 Jan, 2012 [facility] [address] [id number] [place] [address] 25 Jan, 2012 [facility] [place] [facility] [address] [id number] [place] [address] 24 Jan, 2012 [facility] [address] [id number] [place] [address] Jan, [facility] [address] [id number] [place] [address] Dec, [facility] [address] [id number] [place] [address] Dec, [facility] [address] [id number] [place] [address] Nov, [facility] [address] [id number] [place] [address] Oct, [facility] [address] [id number] [place] [address] Oct, [facility] [address] [id number] [place] [address] Oct, [facility] [address] [id number] [place] [address] September, [facility] [address] [id number] [place] [address] September, [facility] [address] [id number] [place] [address] September, [facility] [place] [facility] [address] [id number] [place] [address] September, [facility] [address] [id number] [place] [address] September, [facility] [address] [id number] [place] [address] September, [facility] [place] [facility] [address] [id number] [place] [address] September, [facility] [place] [facility] [address] [id number] [place] [address] Jul, [facility] [place] [facility] [address] [id number] [place] [address] Jul, [facility] [place] [facility] [address] [id number] [place] [address] Jun, [facility] [place] [facility] [address] [id number] [place] [address] Jun, [facility] [place] [facility] [address] [id number] [place] [address] Jun, [facility] [place] [facility] [address] [id number] [place] [address] May, [facility] [place] [facility] [address] [id number] [place] [address] Mar, [facility] [place] [facility] [address] [id number] [place] [address] Mar, [facility] [place] [facility] [address] [id number] [place] [address] Mar, [facility] [place] [facility] [address] [id number] [place] [address] Feb, [facility] [place] [facility] [address] [id number], [place] [address] Feb, [facility] [place] [facility] [address] [id number] [place] [address] Dec, [facility] [place] [facility] [address] [id number] [place] [address] 15 May, 2009 [facility] [place] [facility] [address] [id number] [place] [address] Apr, [facility] [place] [facility] [address] [facility] [id number] [place] [address] Apr, [facility] [address] [facility] [id number], [place] [address] Apr, [facility] [address] [facility] [id number], [place] [address] Apr, [facility] [address] [facility] [id number], [place] [address] Feb, [facility] [address] [facility] [id number], [place] [address] Oct, IMMUNIZATIONS No Known Immunizations SOCIAL HISTORY Never Assessed REASON FOR VISIT Lab (walk-in)--[facility] PLAN OF CARE VITAL SIGNS MEDICATIONS Unknown Medications RESULTS Name Result Date Reference Range INR (IN HOUSE) 2017-01-17 INR 1.4 1.10 - 3.30 PREVIOUS INR 1.9 CURRENT COUMADIN DOSE 1 mg daily NEW COUMADIN DOSE Lot # [id number] Exp date 07/2017 PROCEDURES Procedure Date Ordered Result Body Site PROTHROMBIN TIME Jan 17, 2017 INSTRUCTIONS MEDICATIONS ADMINISTERED No Known Medications [...]
--- OUTSIDE RECORDS SUMMARY | 2018-12-05 12:03 | XMS REPORT ---
Author Author ERIK SAMAYOA Organization [facility] [place] Address [address] [place] [address] Care Team Providers Care Nurses Supervisor Name Role Phone ERIK SAMAYOA Unavailable PROBLEMS Type Condition ICD9-CM Code SEX47-WM Code Onset Dates Condition Status SNOMED Code Problem Acute cystitis with hematuria N30.01 Active 84761747 Problem Major depressive disorder, single episode, unspecified F32.9 Active 01409147 Problem Congestive heart failure, unspecified congestive heart failure chronicity, unspecified congestive heart failure type I50.9 Active 36800534 Problem Chronic fatigue, unspecified R53.82 Active 478399413 Problem Mood disorder F39 Active 42740710 Problem Anticoagulant long-term use Z79.01 Active 171154184 Problem PVD (peripheral vascular disease) I73.9 Active 531659554 Problem Amput leg, unil NOS-comp S88.919A Active [id number] ALLERGIES No Information ENCOUNTERS Encounter Location Date Diagnosis [facility] [place] [address] [address] Aug, Chronic fatigue, unspecified R53.82 [facility] [place] [address] [address] Aug, Anticoagulant long-term use Z79.01 [facility] [place] [address] [address] Aug, Nausea R11.0 and Weakness R53.1 [facility] [place] [address] [address] Aug, [facility] [address] [address] Aug, Hematuria R31.9 and Acute cystitis with hematuria N30.01 [facility] [place] [address] [place] [address] Aug, [place] [address] [id number] [place] [address] Jul, Vitamin B 12 deficiency E53.8 [place] [address] [id number] [place] [address] Jul, Anticoagulant long-term use Z79.01 [place] [address] [address] Jun, Chronic fatigue, unspecified R53.82 [place] [address] [id number] [place] [address] Jun, Anticoagulant long-term use Z79.01 [place] [address] [address] [id number] [place] [address] May, Flu-like symptoms R68.89 and Influenza A J10.1 [place] [address] [address] [id number] [place] [address] May, [place] [address] [address] [id number] [place] [address] May, Chronic fatigue, unspecified R53.82 [place] [id number] [place] [address] May, Anticoagulant long-term use Z79.01 [place] [address] [address] [id number] [place] [address] Apr, Medicare welcome exam Z00.00 ; Anticoagulant long-term use Z79.01 ; Medicare annual wellness visit, initial Z00.00 ; Medicare annual wellness visit, subsequent Z00.00 and Chronic fatigue, unspecified R53.82 [place] [address] [address] [id number] [place] [address] Mar, Chronic fatigue, unspecified R53.82 [place] [address] [address] [id number] [place] [address] Mar, Anticoagulant long-term use Z79.01 [facility] [place] [address] [address] Mar, Anticoagulant long-term use Z79.01 and Hematuria R31.9 [facility] [place] [id number] [place] [address] Mar, Hematuria R31.9 [facility] [place] [address] [id number] [place] [address] Feb, Anticoagulant long-term use Z79.01 [place] [address] [address] [id number] [place] [address] Feb, Anticoagulant long-term use Z79.01 [place] [address] [address] [id number] [place] [address] Feb, Anticoagulant long-term use Z79.01 [place] [address] [address] [id number] [place] [address] Feb, Chronic fatigue, unspecified R53.82 [place] [address] [address] [id number] [place] [address] Feb, Anticoagulant long-term use Z79.01 [place] [id number] [place] [address] Feb, Congestive heart failure, unspecified congestive heart failure chronicity, unspecified congestive heart failure type I50.9 [place] [address] [address] Feb, Congestive heart failure, unspecified congestive heart failure chronicity, unspecified congestive heart failure type I50.9 [place] [id number] [place] [address] Feb, [place] [address] [address] [id number] [place] [address] Jan, Anticoagulant long-term use Z79.01 [place] [id number] [place] [address] Jan, [place] [id number] [place] [address] Jan, Anticoagulant long-term use Z79.01 and Hematuria R31.9 [place] [address] [address] [id number] [place] [address] Jan, Anticoagulant long-term use Z79.01 [place] [address] [address] [id number] [place] [address] Jan, Chronic fatigue, unspecified R53.82 [place] [address] [address] [id number] [place] [address] Jan, Anticoagulant long-term use Z79.01 [place] [address] [address] [id number] [place] [address] Dec, Chronic fatigue, unspecified R53.82 [place] [address] [address] [id number] [place] [address] Dec, [place] [address] [address] [id number] [place] [address] Dec, Chronic fatigue, unspecified R53.82 and Encounter for therapeutic drug level monitoring Z51.81 [place] [address] [address] [id number] [place] [address] Nov, Encounter for therapeutic drug level monitoring Z51.81 [place] [address] [place] [id number] [place] [address] Nov, Hematuria R31.9 [place] [address] [place] [address] [id number] [place] [address] Nov, Hematuria R31.9 ; Anticoagulant long-term use Z79.01 and PVD (peripheral vascular disease) I73.9 [place] [id number] [place] [address] Nov, Anticoagulant long-term use Z79.01 [place] [address] [place] [id number] [place] [address] Nov, Anticoagulant long-term use Z79.01 [place] [address] [place] [id number] [place] [address] Nov, [place] [address] [place] [id number] [place] [address] Nov, Hematuria R31.9 and Acute cystitis with hematuria N30.01 [facility] [address] [id number] Oct, [place] [address] [place] [address] [id number] [place] [address] Oct, [place] [address] [address] Oct, Hematuria R31.9 [place] [address] [place] [address] [id number] [place] [address] Oct, Hematuria R31.9 [place] [address] [address] [id number] [place] [address] Oct, Anticoagulant long-term use Z79.01 [place] [address] [address] Oct, Anticoagulant long-term use Z79.01 [place] [address] [place] [address] [id number] [place] [address] Oct, [place] [address] [address] September, PVD (peripheral vascular disease) I73.9 ; Amput leg, unil NOS-comp S88.919A ; Acute cystitis without hematuria N30.00 ; Anticoagulant long-term use Z79.01 and Hypokalemia E87.6 [place] [address] [place] [id number] [place] [address] Aug, Anticoagulant long-term use Z79.01 and Bronchitis J40 [place] [address] [place] [address] Jul, [facility] [place] [id number] [place] [address] Jul, Anticoagulant long-term use Z79.01 and Mood disorder F39 [facility] [place] [id number] [place] [address] Jul, [facility] [place] [address] [address] May, [facility] [place] [address] [address] May, Hypokalemia E87.6 [facility] [place] [address] [address] May, Mood disorder F39 [facility] [place] [address] [address] May, Anticoagulant long-term use Z79.01 [facility] [place] [address] [address] Apr, Anticoagulant long-term use Z79.01 [facility] [place] [address] [address] Apr, Anticoagulant long-term use Z79.01 [facility] [place] [id number] [place] [address] Apr, [facility] [place] [address] [address] Apr, Anticoagulant long-term use Z79.01 [facility] [place] [address] [address] Apr, Anticoagulant long-term use Z79.01 [facility] [place] [address] [address] [id number] [place] [address] Apr, Anticoagulant long-term use Z79.01 [facility] [place] [address] [address] Mar, [facility] [place] [id number] [place] [address] Mar, [facility] [place] [address] [id number] [place] [address] Mar, Anticoagulant long-term use Z79.01 [facility] [place] [address] [address] [id number] [place] [address] Feb, [facility] [address] [place] [id number] [place] [address] Feb, [facility] [place] [address] [address] Feb, Anticoagulant long-term use Z79.01 [facility] [place] [address] [id number] [place] [address] Feb, Anticoagulant long-term use Z79.01 [facility] [place] [address] [address] [id number] [place] [address] Jan, [facility] [place] [address] [address] [id number] [place] [address] Jan, Anticoagulant long-term use Z79.01 [facility] [place] [address] [address] [id number] [place] [address] Jan, Anticoagulant long-term use Z79.01 [facility] [place] [address] [place] [id number] [place] [address] Dec, Anticoagulant long-term use Z79.01 [facility] [place] [address] [id number] [place] [address] Dec, Anticoagulant long-term use Z79.01 [facility] [place] [address] [address] [id number] [place] [address] Dec, Anticoagulant long-term use Z79.01 and Mood disorder F39 [facility] [place] [address] [place] [address] [id number] [place] [address] Dec, [facility] [place] [address] [address] Nov, [facility] [place] [id number] [place] [address] Nov, Anticoagulant long-term use Z79.01 [facility] [place] [address] [id number] [place] [address] Nov, Anticoagulant long-term use Z79.01 [facility] [place] [address] [id number] [place] [address] September, Anticoagulant long-term use Z79.01 [place] [address] [address] [id number] [place] [address] Jul, Anticoagulant long-term use Z79.01 [place] [address] [address] [id number] [place] [address] May, Anticoagulant long-term use Z79.01 [place] [address] [place] [address] [id number] [place] [address] May, Anticoagulant long-term use Z79.01 [place] [address] [place] [address] [id number] [place] [address] May, Anticoagulant long-term use Z79.01 [facility] [place] [id number] [place] [address] May, Anticoagulant long-term use Z79.01 [facility] [place] [address] [id number] [place] [address] May, [facility] [place] [address] [place] [address] [id number] [place] [address] May, Congestive heart failure, unspecified congestive heart failure chronicity, unspecified congestive heart failure type I50.9 and Pulmonary congestion R09.89 [facility] [place] [address] [address] Apr, Cough R05 ; Congestive heart failure, unspecified congestive heart failure chronicity, unspecified congestive heart failure type I50.9 and Pulmonary congestion R09.89 [facility] [place] [id number] [place] [address] Mar, Hematuria R31.9 [facility] [place] [id number] [place] [address] Mar, [facility] [place] [address] [address] Mar, Anticoagulant long-term use Z79.01 [place] [address] [place] [id number] [place] [address] Mar, [place] [address] [address] Mar, Hematuria R31.9 and Infective urethritis N34.2 [place] [address] [address] Mar, Anticoagulant long-term use Z79.01 [place] [address] [address] Mar, Anticoagulant long-term use Z79.01 [place] [address] [place] [address] [id number] [place] [address] Mar, [place] [address] [place] [address] [id number] [place] [address] Mar, Anticoagulant long-term use Z79.01 [place] [address] [place] [id number] [place] [address] Feb, Peristomal skin breakdown L98.499 [place] [address] [address] Feb, [place] [address] [place] [id number] [place] [address] Feb, UTI (urinary tract infection) N39.0 [place] [address] [address] Jan, [facility] [place] [id number] [address] Dec, High risk medication use V58.69 [facility] [place] [address] [address] Nov, High risk medication use V58.69 [facility] [place] [id number] [place] [address] Nov, [facility] [place] [address] [address] Nov, UTI (lower urinary tract infection) 599.0 ; URI, acute 465.9 ; Insomnia 780.52 ; Anxiety 300.00 and Lower limb amputation, unspecified level V49.70 [facility] [place] [address] [address] Oct, UTI (lower urinary tract infection) 599.0 ; URI, acute 465.9 ; Insomnia 780.52 ; Anxiety 300.00 and Lower limb amputation, unspecified level V49.70 [facility] [place] [address] [address] Aug, [facility] [place] [address] [address] Aug, [facility] [place] [address] [address] Jul, [facility] [place] [id number] [address] Jul, [facility] [place] [address] [address] Jun, [facility] [place] [address] [address] Jun, [facility] [place] [id number] [address] Mar, [facility] [place] [facility] [address] [id number] [place] [address] Mar, [facility] [place] [facility] [address] [id number] [place] [address] Mar, [facility] [place] [facility] [address] [id number] [place] [address] Mar, [facility] [place] [facility] [address] [id number] [place] [address] Mar, [facility] [place] [facility] [address] [id number] [place] [address] Feb, [facility] [place] [facility] [address] [id number] [place] [address] Feb, [facility] [place] [facility] [address] [id number] [place] [address] Feb, [facility] [place] [facility] [address] [id number] [place] [address] Feb, [facility] [place] [facility] [address] [id number] [place] [address] Feb, [facility] [place] [facility] [address] [id number] [place] [address] Feb, [facility] [place] [facility] [address] [id number] [place] [address] Feb, [facility] [place] [facility] [address] [id number] [place] [address] Feb, [facility] [place] [facility] [address] [id number] [place] [address] Feb, [facility] [place] [facility] [address] [id number] [place] [address] Feb, [facility] [place] [facility] [address] [id number] [place] [address] Feb, [facility] [place] [facility] [address] [id number] [place] [address] Feb, [facility] [place] [facility] [address] [id number] [place] [address] Feb, [facility] [place] [facility] [address] [id number] [place] [address] Feb, [facility] [place] [facility] [address] [id number] [place] [address] Feb, [facility] [place] [facility] [address] [id number] [place] [address] Feb, [facility] [place] [facility] [address] [id number] [place] [address] Jan, [facility] [place] [facility] [address] [id number] [place] [address] Jan, [facility] [place] [facility] [address] [id number] [place] [address] Jan, [facility] [place] [facility] [address] [id number] [place] [address] Jan, [facility] [place] [facility] [address] [id number] [place] [address] Jan, [facility] [place] [facility] [address] [id number] [place] [address] Nov, [facility] [place] [facility] [address] [id number] [place] [address] Nov, [facility] [place] [facility] [address] [id number] [address] Nov, [facility] [place] [facility] [address] [id number] [place] [address] Nov, [facility] [place] [facility] [address] [id number] [place] [address] Nov, [facility] [place] [facility] [address] [id number] [place] [address] Nov, [facility] [place] [facility] [address] [id number] [place] [address] Oct, [facility] [place] [facility] [address] [id number] [place] [address] Oct, [facility] [place] [facility] [address] [id number] [place] [address] Oct, [facility] [place] [facility] [address] [id number] [place] [address] Oct, [facility] [place] [facility] [address] [id number] [place] [address] Oct, [facility] [place] [facility] [address] [id number] [place] [address] Oct, [facility] [place] [facility] [address] [id number] [place] [address] Oct, [facility] [place] [facility] [address] [id number] [place] [address] September, [facility] [place] [facility] [address] [id number] [place] [address] September, [facility] [place] [facility] [address] [id number] [place] [address] September, [facility] [place] [facility] [address] [id number] [place] [address] September, [facility] [place] [facility] [address] [id number] [place] [address] September, [facility] [place] [facility] [address] [id number] [place] [address] September, [facility] [place] [facility] [address] [id number] [place] [address] September, [facility] [place] [facility] [address] [id number] [place] [address] September, [facility] [place] [facility] [address] [id number] [place] [address] Aug, [facility] [place] [facility] [address] [id number] [place] [address] Aug, [facility] [place] [facility] [address] [id number] [place] [address] Aug, [facility] [place] [facility] [address] [id number] [place] [address] Aug, [facility] [place] [facility] [address] [id number] [place] [address] Jul, [facility] [place] [facility] [address] [id number] [place] [address] Jul, [facility] [place] [facility] [address] [id number] [place] [address] Jun, [facility] [place] [facility] [address] [id number] [place] [address] Jun, [facility] [place] [facility] [address] [id number] [place] [address] Jun, [facility] [place] [facility] [address] [id number] [place] [address] Jun, [facility] [place] [facility] [address] [id number] [place] [address] Jun, [facility] [place] [facility] [address] [id number] [place] [address] Jun, [facility] [place] [facility] [address] [id number] [place] [address] May, [facility] [place] [facility] [address] [id number] [place] [address] May, [facility] [place] [facility] [address] [id number] [place] [address] May, [facility] [place] [facility] [address] [id number] [place] [address] May, [facility] [place] [facility] [address] [id number] [place] [address] May, [facility] [address] [id number] [place] [address] May, [facility] [place] [facility] [address] [id number] [place] [address] Feb, [facility] [place] [facility] [address] [id number] [place] [address] Feb, [facility] [place] [facility] [address] [id number] [place] [address] Feb, [facility] [place] [facility] [address] [id number] [place] [address] Feb, [facility] [place] [facility] [address] [id number] [place] [address] Jan, [facility] [place] [facility] [address] [id number] [place] [address] Jan, [facility] [place] [facility] [address] [id number] [place] [address] Jan, [facility] [place] [facility] [address] [id number] [place] [address] Dec, [facility] [place] [facility] [address] [id number] [place] [address] Nov, [facility] [place] [facility] [address] [id number] [place] [address] Nov, [facility] [place] [facility] [address] [id number] [place] [address] Nov, [facility] [place] [facility] [address] [id number] [place] [address] Nov, [facility] [place] [facility] [address] [id number] [place] [address] Nov, [facility] [place] [facility] [address] [id number] [place] [address] Oct, [facility] [place] [facility] [address] [id number] [place] [address] September, [facility] [address] [id number] [place] [address] September[facility] [address] [id number] [place] [address] Aug, [facility] [address] [id number] [place] [address] Aug, [facility] [address] [id number] [place] [address] Jul, [facility] [address] [id number] [place] [address] Jul, [facility] [address] [id number] [place] [address] Jul, [facility] [address] [id number] [place] [address] Jul, [facility] [address] [id number] [place] [address] Jun, [facility] [address] [id number] [place] [address] Jun, [facility] [address] [id number] [place] [address] Jun, [facility] [address] [id number] [place] [address] May, [facility] [place] [facility] [address] [id number] [place] [address] May, [facility] [place] [facility] [address] [id number] [place] [address] May, [facility] [place] [facility] [address] [id number] [place] [address] May, [facility] [place] [facility] [address] [id number] [place] [address] Apr, [facility] [place] [facility] [address] [id number] [place] [address] Apr, [facility] [place] [facility] [address] [id number] [place] [address] Apr, [facility] [place] [facility] [address] [id number] [place] [address] Apr, [facility] [place] [facility] [address] [id number] [place] [address] Apr, [facility] [place] [facility] [address] [id number] [place] [address] Apr, [facility] [place] [facility] [address] [id number] [place] [address] Mar, [facility] [place] [facility] [address] [id number] [place] [address] Mar, [facility] [place] [facility] [address] [id number] [place] [address] Mar, [facility] [place] [facility] [address] [id number] [place] [address] Mar, [facility] [place] [facility] [address] [id number] [place] [address] Mar, [facility] [place] [facility] [address] [id number] [place] [address] Mar, [facility] [place] [facility] [address] [id number] [place] [address] Feb, [facility] [place] [facility] [address] [id number] [place] [address] Feb, [facility] [place] [facility] [address] [id number] [place] [address] Feb, [facility] [place] [facility] [address] [id number] [place] [address] Feb, [facility] [place] [facility] [address] [id number] [place] [address] 25 Jan, 2012 [facility] [address] [id number] [place] [address] 25 Jan, 2012 [facility] [place] [facility] [address] [id number] [place] [address] 24 Jan, 2012 [facility] [address] [id number] [place] [address] Jan, [facility] [address] [id number] [place] [address] Dec, [facility] [address] [id number] [place] [address] Dec, [facility] [address] [id number] [place] [address] Nov, [facility] [address] [id number] [place] [address] Oct, [facility] [address] [id number] [place] [address] Oct, [facility] [address] [id number] [place] [address] Oct, [facility] [address] [id number] [place] [address] September, [facility] [address] [id number] [place] [address] September, [facility] [address] [id number] [place] [address] September, [facility] [place] [facility] [address] [id number] [place] [address] September, [facility] [address] [id number] [place] [address] September, [facility] [address] [id number] [place] [address] September, [facility] [place] [facility] [address] [id number] [place] [address] September, [facility] [place] [facility] [address] [id number] [place] [address] Jul, [facility] [place] [facility] [address] [id number] [place] [address] Jul, [facility] [place] [facility] [address] [id number] [place] [address] Jun, [facility] [place] [facility] [address] [id number] [place] [address] Jun, [facility] [place] [facility] [address] [id number] [place] [address] Jun, [facility] [place] [facility] [address] [id number] [place] [address] May, [facility] [place] [facility] [address] [id number] [place] [address] Mar, [facility] [place] [facility] [address] [id number] [place] [address] Mar, [facility] [place] [facility] [address] [id number] [place] [address] Mar, [facility] [place] [facility] [address] [id number] [place] [address] Feb, [facility] [place] [facility] [address] [id number] [place] [address] Feb, [facility] [place] [facility] [address] [id number] [place] [address] Dec, [facility] [place] [facility] [address] [id number] [place] [address] 15 May, 2009 [facility] [place] [facility] [address] [id number] [place] [address] Apr, [facility] [place] [facility] [address] [facility] [id number] [place] [address] Apr, [facility] [place] [address] [facility] [id number] [place] [address] Apr, [facility] [place] [address] [facility] [id number] [place] [address] Apr, [facility] [place] [address] [facility] [id number] [place] [address] Feb, [facility] [place] [address] [facility] [id number] [place] [address] Oct, IMMUNIZATIONS No Known Immunizations SOCIAL HISTORY Never Assessed REASON FOR VISIT Lab (walk-in)--[facility] PLAN OF CARE VITAL SIGNS MEDICATIONS Unknown Medications RESULTS Name Result Date Reference Range INR (IN HOUSE) 2017-03-01 INR 2.0 1.10 - 3.30 PREVIOUS INR 3.4 CURRENT COUMADIN DOSE 2 mg /1 mg all other days NEW COUMADIN DOSE Lot # [id number] Exp date 09/2017 PROCEDURES Procedure Date Ordered Result Body Site PROTHROMBIN TIME Mar 01, 2017 INSTRUCTIONS MEDICATIONS ADMINISTERED No Known Medications [...]
--- OUTSIDE RECORDS SUMMARY | 2018-12-05 12:04 | XMS REPORT ---
Author Author ERIK SAMAYOA Organization [facility] Address [address] [place] [address] Care Team Providers Care Ramp Agent Name Role Phone ERIK SAMAYOA Unavailable PROBLEMS Type Condition ICD9-CM Code TQA52-CP Code Onset Dates Condition Status SNOMED Code Problem Acute cystitis with hematuria N30.01 Active 17457145 Problem Major depressive disorder, single episode, unspecified F32.9 Active 37938532 Problem Congestive heart failure, unspecified congestive heart failure chronicity, unspecified congestive heart failure type I50.9 Active 73365022 Problem Chronic fatigue, unspecified R53.82 Active 906233952 Problem Mood disorder F39 Active 47638863 Problem Anticoagulant long-term use Z79.01 Active 277584601 Problem PVD (peripheral vascular disease) I73.9 Active 951123399 Problem Amput leg, unil NOS-comp S88.919A Active 18960908 ALLERGIES No Information ENCOUNTERS Encounter Location Date Diagnosis [place] [address] [address] Aug, [place] [address] [address] Jul, Vitamin B 12 deficiency E53.8 [place] [address] [address] Jul, Anticoagulant long-term use Z79.01 [place] [address] [address] Jun, Chronic fatigue, unspecified R53.82 [place] [address] [address] Jun, Anticoagulant long-term use Z79.01 [place] [address] [address] May, Flu-like symptoms R68.89 and Influenza A J10.1 [place] [address] [place] [id number] [place] [address] May, [place] [address] [place] [id number] [place] [address] May, Chronic fatigue, unspecified R53.82 [place] [address] [place] [id number] [place] [address] May, Anticoagulant long-term use Z79.01 [place] [address] [place] [id number] [place] [address] Apr, Medicare welcome exam Z00.00 ; Anticoagulant long-term use Z79.01 ; Medicare annual wellness visit, initial Z00.00 ; Medicare annual wellness visit, subsequent Z00.00 and Chronic fatigue, unspecified R53.82 [place] [address] [place] [id number] [place] [address] Mar, Chronic fatigue, unspecified R53.82 [place] [address] [place] [id number] [place] [address] Mar, Anticoagulant long-term use Z79.01 [place] [address] [place] [id number] [place] [address] Mar, Anticoagulant long-term use Z79.01 and Hematuria R31.9 [place] [address] [place] [id number] [place] [address] Mar, Hematuria R31.9 [place] [address] [place] [id number] [place] [address] Feb, Anticoagulant long-term use Z79.01 [place] [address] [place] [id number] [place] [address] Feb, Anticoagulant long-term use Z79.01 [place] [address] [place] [id number] [place] [address] Feb, Anticoagulant long-term use Z79.01 [facility] [address] [address] Feb, Chronic fatigue, unspecified R53.82 [place] [address] [place] [id number] [place] [address] Feb, Anticoagulant long-term use Z79.01 [place] [address] [place] [id number] [place] [address] Feb, Congestive heart failure, unspecified congestive heart failure chronicity, unspecified congestive heart failure type I50.9 [place] [address] [place] [id number] [place] [address] Feb, Congestive heart failure, unspecified congestive heart failure chronicity, unspecified congestive heart failure type I50.9 [place] [address] [place] [id number] [place] [address] Feb, [place] [address] [place] [id number] [place] [address] Jan, Anticoagulant long-term use Z79.01 [place] [address] [place] [id number] [place] [address] Jan, [place] [address] [place] [id number] [place] [address] Jan, Anticoagulant long-term use Z79.01 and Hematuria R31.9 [place] [address] [place] [id number] [place] [address] Jan, Anticoagulant long-term use Z79.01 [place] [address] [place] [id number] [place] [address] Jan, Chronic fatigue, unspecified R53.82 [place] [address] [place] [id number] [place] [address] Jan, Anticoagulant long-term use Z79.01 [place] [address] [place] [id number] [place] [address] Dec, Chronic fatigue, unspecified R53.82 [facility] [id number] [place] [address] Dec, [facility] [address] [place] [id number] [place] [address] Dec, Chronic fatigue, unspecified R53.82 and Encounter for therapeutic drug level monitoring Z51.81 [facility] [address] [place] [id number] [place] [address] Nov, Encounter for therapeutic drug level monitoring Z51.81 [facility] [address] [place] [id number] [place] [address] Nov, Hematuria R31.9 [facility] [address] [place] [id number] [place] [address] Nov, Hematuria R31.9 ; Anticoagulant long-term use Z79.01 and PVD (peripheral vascular disease) I73.9 [facility] [address] [place] [id number] [place] [address] Nov, Anticoagulant long-term use Z79.01 [facility] [address] [place] [id number] [place] [address] Nov, Anticoagulant long-term use Z79.01 [facility] [address] [place] [id number] [place] [address] Nov, [facility] [address] [place] [id number] [place] [address] Nov, Hematuria R31.9 and Acute cystitis with hematuria N30.01 [facility] [address] [place] [id number] [place] [id number] Oct, [facility] [address] [place] [id number] [place] [address] Oct, [facility] [address] [place] [id number] [place] [address] Oct, Hematuria R31.9 [place] [address] [place] [id number] [place] [address] Oct, Hematuria R31.9 [place] [address] [address] Oct, Anticoagulant long-term use Z79.01 [place] [address] [address] Oct, Anticoagulant long-term use Z79.01 [place] [address] [address] Oct, [place] [address] [address] September, PVD (peripheral vascular disease) I73.9 ; Amput leg, unil NOS-comp S88.919A ; Acute cystitis without hematuria N30.00 ; Anticoagulant long-term use Z79.01 and Hypokalemia E87.6 [place] [address] [address] Aug, Anticoagulant long-term use Z79.01 and Bronchitis J40 [place] [address] [address] Jul, [place] [address] [address] Jul, Anticoagulant long-term use Z79.01 and Mood disorder F39 [place] [address] [place] [id number] [place] [address] Jul, [place] [address] [address] May, [place] [address] [address] May, Hypokalemia E87.6 [place] [address] [address] May, Mood disorder F39 [place] [address] [place] [id number] [place] [address] May, Anticoagulant long-term use Z79.01 [facility] [address] [place] [id number] [place] [address] Apr, Anticoagulant long-term use Z79.01 [facility] [address] [place] [id number] [place] [address] Apr, Anticoagulant long-term use Z79.01 [facility] [address] [place] [id number] [place] [address] Apr, [facility] [address] [address] Apr, Anticoagulant long-term use Z79.01 [facility] [address] [place] [id number] [place] [address] Apr, Anticoagulant long-term use Z79.01 [facility] [address] [place] [id number] [place] [address] Apr, Anticoagulant long-term use Z79.01 [facility] [address] [place] [id number] [place] [address] Mar, [facility] [address] [place] [id number] [place] [address] Mar, [facility] [address] [place] [id number] [place] [address] Mar, Anticoagulant long-term use Z79.01 [facility] [address] [place] [id number] [place] [address] Feb, [facility] [address] [address] Feb, [facility] [address] [place] [id number] [place] [address] Feb, Anticoagulant long-term use Z79.01 [facility] [address] [place] [address] Feb, Anticoagulant long-term use Z79.01 [facility] [address] [place] [id number] [place] [address] Jan, [facility] [address] [address] Jan, Anticoagulant long-term use Z79.01 [facility] [address] [address] Jan, Anticoagulant long-term use Z79.01 [facility] [address] [place] [id number] [place] [address] Dec, Anticoagulant long-term use Z79.01 [facility] [address] [place] [id number] [place] [address] Dec, Anticoagulant long-term use Z79.01 [facility] [address] [address] Dec, Anticoagulant long-term use Z79.01 and Mood disorder F39 [facility] [address] [place] [id number] [place] [address] Dec, [facility] [address] [place] [id number] [place] [address] Nov, [facility] [address] [place] [id number] [place] [address] Nov, Anticoagulant long-term use Z79.01 [facility] [address] [place] [id number] [place] [address] Nov, Anticoagulant long-term use Z79.01 [facility] [address] [address] September, Anticoagulant long-term use Z79.01 [facility] [address] [place] [id number] [place] [address] Jul, Anticoagulant long-term use Z79.01 [facility] [address] [place] [id number] [place] [address] May, Anticoagulant long-term use Z79.01 [facility] [address] [place] [id number] [place] [address] May, Anticoagulant long-term use Z79.01 [facility] [address] [place] [id number] [place] [address] May, Anticoagulant long-term use Z79.01 [place] [address] [place] [id number] [place] [address] May, Anticoagulant long-term use Z79.01 [place] [address] [address] May, [place] [address] [place] [id number] [place] [address] May, Congestive heart failure, unspecified congestive heart failure chronicity, unspecified congestive heart failure type I50.9 and Pulmonary congestion R09.89 [place] [address] [place] [id number] [place] [address] Apr, Cough R05 ; Congestive heart failure, unspecified congestive heart failure chronicity, unspecified congestive heart failure type I50.9 and Pulmonary congestion R09.89 [place] [address] [place] [id number] [place] [address] Mar, Hematuria R31.9 [place] [address] [place] [id number] [place] [address] Mar, [place] [address] [place] [id number] [place] [address] Mar, Anticoagulant long-term use Z79.01 [place] [address] [place] [id number] [place] [address] Mar, [place] [address] [place] [id number] [place] [address] Mar, Hematuria R31.9 and Infective urethritis N34.2 [facility] [address] [address] Mar, Anticoagulant long-term use Z79.01 [facility] [id number] [place] [address] Mar, Anticoagulant long-term use Z79.01 [facility] [id number] [place] [address] Mar, [facility] [address] [place] [id number] [place] [address] Mar, Anticoagulant long-term use Z79.01 [facility] [address] [place] [id number] [place] [address] Feb, Peristomal skin breakdown L98.499 [facility] [address] [place] [id number] [place] [address] Feb, [facility] [address] [place] [id number] [place] [address] Feb, UTI (urinary tract infection) N39.0 [facility] [address] [place] [address] Jan, [facility] [address] [place] [address] Dec, High risk medication use V58.69 [place] [id number] [place] [address] Nov, High risk medication use V58.69 [place] [address] [place] [address] Nov, [facility] [address] [place] [address] Nov, UTI (lower urinary tract infection) 599.0 ; URI, acute 465.9 ; Insomnia 780.52 ; Anxiety 300.00 and Lower limb amputation, unspecified level V49.70 [place] [address] [address] 10 Oct, 2014 UTI (lower urinary tract infection) 599.0 ; URI, acute 465.9 ; Insomnia 780.52 ; Anxiety 300.00 and Lower limb amputation, unspecified level V49.70 [facility] [address] [facility] [id number] [address] 14 Aug, 2014 [facility] [address] [facility] [id number] [place] [address] Aug, [facility] [address] [facility] [id number] [address] Jul, [facility] [address] [place] [id number] [place] [address] Jul, [facility] [address] [address] Jun, [facility] [address] [place] [id number] [place] [address] Jun, [facility] [address] [place] [id number] [address] Mar, [facility] [address] [address] Mar, [facility] [address] [place] [id number] [address] Mar, [facility] [address] [facility] [id number] [address] Mar, [facility] [address] [facility] [id number] [place] [address] Mar, [facility] [address] [place] [id number] [address] Feb, [facility] [address] [place] [id number] [address] Feb, [facility] [address] [place] [id number] [address] Feb, [facility] [place] [facility] [address] [id number] [place] [address] Feb, [facility] [place] [facility] [address] [id number] [place] [address] Feb, [facility] [place] [facility] [address] [id number] [place] [address] Feb, [facility] [place] [facility] [address] [id number] [place] [address] Feb, [facility] [place] [facility] [address] [id number] [place] [address] Feb, [facility] [place] [facility] [address] [id number] [place] [address] Feb, [facility] [place] [facility] [address] [id number] [place] [address] Feb, [facility] [place] [facility] [address] [id number] [place] [address] Feb, [facility] [place] [facility] [address] [id number] [place] [address] Feb, [facility] [place] [facility] [address] [id number] [place] [address] Feb, [facility] [place] [facility] [address] [id number] [place] [address] Feb, [facility] [place] [facility] [address] [id number] [place] [address] Feb, [facility] [place] [facility] [address] [id number] [place] [address] Feb, [facility] [place] [facility] [address] [id number] [address] 28 Jan, 2014 [facility] [place] [facility] [address] [id number] [place] [address] 26 Jan, 2014 [facility] [place] [facility] [address] [id number] [place] [address] Jan, 2013 [facility] [place] [facility] [address] [id number] [place] [address] Jan, [facility] [place] [facility] [address] [id number] [place] [address] Jan, [facility] [place] [facility] [address] [id number] [place] [address] Nov, [facility] [place] [facility] [address] [id number] [place] [address] Nov, [facility] [place] [facility] [address] [id number] [place] [address] Nov, [facility] [place] [facility] [address] [id number] [place] [address] Nov, [facility] [place] [facility] [address] [id number] [place] [address] Nov, [facility] [place] [facility] [address] [id number] [place] [address] Nov, [facility] [place] [facility] [address] [id number] [place] [address] Oct, [facility] [place] [facility] [address] [id number] [place] [address] Oct, [facility] [place] [facility] [address] [id number] [place] [address] Oct, [facility] [place] [facility] [address] [id number] [place] [address] Oct, [facility] [place] [facility] [address] [id number] [place] [address] Oct, [facility] [place] [facility] [address] [id number] [place] [address] Oct, [facility] [place] [facility] [address] [id number] [place] [address] Oct, [facility] [place] [facility] [address] [id number] [place] [address] September, [facility] [place] [facility] [address] [id number] [place] [address] September, [facility] [place] [facility] [address] [id number] [place] [address] September, [facility] [place] [facility] [address] [id number] [place] [address] September, [facility] [place] [facility] [address] [id number] [place] [address] September, [facility] [place] [facility] [address] [id number] [place] [address] September, [facility] [place] [facility] [address] [id number] [place] [address] September, [facility] [place] [facility] [address] [id number] [place] [address] September, [facility] [place] [facility] [address] [id number] [place] [address] Aug, [facility] [place] [facility] [address] [id number] [place] [address] Aug, [facility] [place] [facility] [address] [id number] [place] [address] Aug, [facility] [place] [facility] [address] [id number] [place] [address] Aug, [facility] [place] [facility] [address] [id number] [place] [address] Jul, [facility] [place] [facility] [address] [id number] [place] [address] Jul, [facility] [place] [facility] [address] [id number] [place] [address] Jun, [facility] [place] [facility] [address] [id number] [place] [address] Jun, [facility] [place] [facility] [address] [id number] [place] [address] Jun, [facility] [place] [facility] [address] [id number] [place] [address] Jun, [facility] [place] [facility] [address] [id number] [place] [address] Jun, [facility] [place] [facility] [address] [id number] [place] [address] Jun, [facility] [place] [facility] [address] [id number] [place] [address] May, [facility] [place] [facility] [address] [id number] [place] [address] May, [facility] [place] [facility] [address] [id number] [place] [address] May, [facility] [place] [facility] [address] [id number] [place] [address] May, [facility] [place] [facility] [address] [id number] [place] [address] May, [facility] [place] [facility] [address] [id number] [place] [address] May, [facility] [place] [facility] [address] [id number] [place] [address] Feb, [facility] [place] [facility] [address] [id number] [place] [address] Feb, [facility] [place] [facility] [address] [id number] [place] [address] Feb, [facility] [place] [facility] [address] [id number] [place] [address] Feb, [facility] [place] [facility] [address] [id number] [place] [address] Jan, [facility] [address] [id number] [place] [address] Jan, [facility] [place] [facility] [address] [id number] [place] [address] Jan, [facility] [place] [facility] [address] [id number] [place] [address] Dec, [facility] [place] [facility] [address] [id number] [place] [address] Nov, [facility] [address] [id number] [place] [address] Nov, [facility] [place] [facility] [address] [id number] [place] [address] Nov, [facility] [place] [facility] [address] [id number] [place] [address] Nov, [facility] [place] [facility] [address] [id number] [place] [address] Nov, [facility] [place] [facility] [address] [id number] [place] [address] Oct, [facility] [place] [facility] [address] [id number] [place] [address] September, [facility] [place] [facility] [address] [id number] [place] [address] September, [facility] [place] [facility] [address] [id number] [place] [address] Aug, [facility] [place] [facility] [address] [id number] [place] [address] Aug, [facility] [place] [facility] [address] [id number] [place] [address] Jul, [facility] [place] [facility] [address] [id number] [place] [address] Jul, [facility] [place] [facility] [address] [id number] [place] [address] 08 Jul, 2012 [facility] [address] [id number] [place] [address] Jul, [facility] [place] [facility] [address] [id number] [place] [address] Jun, [facility] [address] [id number] [place] [address] Jun, [facility] [place] [facility] [address] [id number] [place] [address] Jun, [facility] [address] [id number] [place] [address] May, [facility] [address] [id number] [place] [address] May, [facility] [address] [id number] [place] [address] May, [facility] [address] [id number] [place] [address] May, [facility] [address] [id number] [place] [address] Apr, [facility] [address] [id number] [place] [address] Apr, [facility] [address] [id number] [place] [address] Apr, [facility] [place] [facility] [address] [id number] [place] [address] 05 Apr, 2012 [facility] [place] [facility] [address] [id number] [place] [address] Apr, [facility] [place] [facility] [address] [id number] [place] [address] Apr, [facility] [address] [id number] [place] [address] Mar, [facility] [place] [facility] [address] [id number] [place] [address] Mar, [facility] [place] [facility] [address] [id number] [place] [address] Mar, [facility] [place] [facility] [address] [id number] [place] [address] Mar, [facility] [place] [facility] [address] [id number] [place] [address] Mar, [facility] [place] [facility] [address] [id number] [place] [address] Mar, [facility] [place] [facility] [address] [id number] [place] [address] Feb, [facility] [place] [facility] [address] [id number] [place] [address] Feb, [facility] [place] [facility] [address] [id number] [place] [address] Feb, [facility] [place] [facility] [address] [id number] [place] [address] Feb, [facility] [place] [facility] [address] [id number] [place] [address] Jan, [facility] [place] [facility] [address] [id number] [place] [address] Jan, [facility] [place] [facility] [address] [id number] [place] [address] 24 Jan, 2012 [facility] [place] [facility] [address] [id number] [place] [address] 10 Jan, 2012 [facility] [place] [facility] [address] [id number] [place] [address] Dec, [facility] [place] [facility] [address] [id number] [place] [address] Dec, [facility] [place] [facility] [address] [id number] [place] [address] Nov, [facility] [place] [facility] [address] [id number] [place] [address] Oct, [facility] [place] [facility] [address] [id number] [place] [address] Oct, [facility] [place] [facility] [address] [id number] [place] [address] Oct, [facility] [place] [facility] [address] [id number] [place] [address] September, [facility] [place] [facility] [address] [id number] [place] [address] September, [facility] [place] [facility] [address] [id number] [place] [address] September, [facility] [place] [facility] [address] [id number] [place] [address] September, [facility] [place] [facility] [address] [id number] [place] [address] September, [facility] [place] [facility] [address] [id number] [place] [address] September, [facility] [place] [facility] [address] [id number] [place] [address] September, [facility] [place] [facility] [address] [id number] [place] [address] Jul, [facility] [place] [facility] [address] [id number] [place] [address] Jul, [facility] [place] [facility] [address] [id number] [place] [address] Jun, [facility] [place] [facility] [address] [id number] [place] [address] Jun, [facility] [place] [facility] [address] [id number] [place] [address] Jun, [facility] [place] [facility] [address] [facility] [id number] [place] [address] 10 May, 2011 [facility] [id number] [place] [address] 29 Mar, 2011 [facility] [address] [facility] [id number] [place] [address] Mar, [facility] [id number] [address] Mar, [facility] [address] [facility] [id number] [place] [address] Feb, [facility] [id number] [address] Feb, [facility] [address] [address] Dec, [facility] [address] [address] May, [facility] [address] [address] Apr, [facility] [address] [address] Apr, [facility] [id number] [address] Apr, [facility] [id number] [address] Apr, [facility] [address] [id number] [address] Feb, [facility] [address] [id number] [address] Oct, IMMUNIZATIONS No Known Immunizations SOCIAL HISTORY Never Assessed REASON FOR VISIT uti PLAN OF CARE VITAL SIGNS MEDICATIONS Unknown [...]
--- OUTSIDE RECORDS SUMMARY | 2018-12-05 12:05 | XMS REPORT ---
Author Author DANITA ERIK [facility] Address [address] [place] [address] Care Team Providers Care Tooth Clerk Name Role Phone ERIK SAMAYOA Unavailable PROBLEMS Type Condition ICD9-CM Code GVU97-HP Code Onset Dates Condition Status SNOMED Code Problem Acute cystitis with hematuria N30.01 Active 61438625 Problem Major depressive disorder, single episode, unspecified F32.9 Active 12508094 Problem Congestive heart failure, unspecified congestive heart failure chronicity, unspecified congestive heart failure type I50.9 Active 61571245 Problem Chronic fatigue, unspecified R53.82 Active 061070260 Problem Mood disorder F39 Active 70525655 Problem Anticoagulant long-term use Z79.01 Active 880080530 Problem PVD (peripheral vascular disease) I73.9 Active 542978355 Problem Amput leg, unil NOS-comp S88.919A Active 16233920 ALLERGIES No Information SOCIAL HISTORY Never Assessed PLAN OF CARE VITAL SIGNS Height 62 in 2016-09-16 Temperature 98.1 degrees Fahrenheit 2016-09-16 Heart Rate 64 bpm 2016-09-16 Respiratory Rate 20 2016-09-16 Blood pressure systolic 118 mmHg 2016-09-16 Blood pressure diastolic 64 mmHg 2016-09-16 MEDICATIONS Medication Instructions Dosage Frequency Start Date End Date Duration Status Cipro 500 mg Orally Twice a day 1 tablet 12h September, September, 10 day(s) Active RESULTS Name Result Date Reference Range INR (IN HOUSE) 2016-09-16 INR 2.3 1.10 - 3.30 PREVIOUS INR 3.4 CURRENT COUMADIN DOSE 2mg/day NEW COUMADIN DOSE Lot # [id number] Exp date 06/07/2017 UA LONG DIP (IN HOUSE) 2016-09-16 Lot # [id number] Exp date 07/05/17 Clarity turbid Color yellow Odor none GLU neg SCOTT neg KET neg SG 1.015 BLO 3+ pH 5.0 Protein 1+ URO 0.2 NIT neg TOBIN 1+ Lot # Exp date BMP 2016-09-16 Glucose, Serum 86 65-99 BUN 7 8-27 Creatinine, Serum 0.90 0.57-1.00 eGFR If NonAfricn Am 65 >59 eGFR If Africn Am 75 >59 BUN/Creatinine Ratio 8 12-28 Sodium, Serum 143 134-144 Potassium, Serum 4.2 3.5-5.2 Chloride, Serum 102 96-106 Carbon Dioxide, Total 25 18-29 Calcium, Serum 9.6 8.7-10.3 PROCEDURES Procedure Date Ordered Result Body [facility] 2016 [facility] VISIT ESTABLISHED PATIENT September 16, 2016 PROTHROMBIN TIME September 16, 2016 VENIPUNCT, ROUTINE* September 16, 2016 URINALYSIS, AUTO, W/O SCOPE September 16, 2016 IMMUNIZATIONS No Known Immunizations MEDICAL (GENERAL) HISTORY Type Description Date Medical [...]
--- OUTSIDE RECORDS SUMMARY | 2018-12-05 12:05 | XMS REPORT ---
Author Author ERIK SAMAYOA [facility] Address [address] [place] [address] Care Team Providers Care Multi Punch Operator Name Role Phone ERIK SAMAYOA Unavailable PROBLEMS Type Condition ICD9-CM Code VYL46-GR Code Onset Dates Condition Status SNOMED Code Problem Chronic fatigue, unspecified R53.82 Active 645008901 Problem PVD (peripheral vascular disease) I73.9 Active 355108579 Problem Anticoagulant long-term use Z79.01 Active 636419127 Problem Major depressive disorder, single episode, unspecified F32.9 Active 71946675 Problem Amput leg, unil NOS-comp S88.919A Active 48877494 Problem Mood disorder F39 Active 28079603 ALLERGIES Unknown Allergies SOCIAL HISTORY No smoking Hx information available PLAN OF CARE VITAL SIGNS MEDICATIONS Medication Instructions Dosage Frequency Start Date End Date Duration Status Coumadin 2 mg Orally Once a day 1 tablet 24h 30 Active RESULTS No Results PROCEDURES No Known procedures IMMUNIZATIONS No Known Immunizations
--- OUTSIDE RECORDS SUMMARY | 2018-12-05 12:05 | XMS REPORT ---
Author Author ERIK SAMAYOA Organization [facility] Address [address] [place] [address] Care Team Providers Care Cs Associate Name Role Phone ERIK SAMAYOA Unavailable PROBLEMS Type Condition ICD9-CM Code [id number] Code Onset Dates Condition Status SNOMED Code Problem Acute cystitis with hematuria N30.01 Active 69291473 Problem Major depressive disorder, single episode, unspecified F32.9 Active 44856863 Problem Congestive heart failure, unspecified congestive heart failure chronicity, unspecified congestive heart failure type I50.9 Active 93356700 Problem Chronic fatigue, unspecified R53.82 Active 910157714 Problem Mood disorder F39 Active 25928432 Problem Anticoagulant long-term use Z79.01 Active 469947480 Problem PVD (peripheral vascular disease) I73.9 Active 435031091 Problem Amput leg, unil NOS-comp S88.919A Active [id number] ALLERGIES No Information ENCOUNTERS Encounter Location Date Diagnosis [facility] [address] [address] Aug, Chronic fatigue, unspecified R53.82 [facility] [address] [address] Aug, Anticoagulant long-term use Z79.01 [facility] [address] [address] Aug, Nausea R11.0 and Weakness R53.1 [facility] [address] [address] Aug, [facility] [address] [address] Aug, Hematuria R31.9 and Acute cystitis with hematuria N30.01 [facility] [address] [place] [address] Aug, [facility] [id number] [place] [address] Jul, Vitamin B 12 deficiency E53.8 [facility] [id number] [place] [address] Jul, Anticoagulant long-term use Z79.01 [facility] [address] [address] Jun, Anticoagulant long-term use Z79.01 [facility] [id number] [place] [address] Jun, Chronic fatigue, unspecified R53.82 [facility] [id number] [place] [address] May, Flu-like symptoms R68.89 and Influenza A J10.1 [facility] [id number] [place] [address] May, [facility] [id number] [place] [address] May, Chronic fatigue, unspecified R53.82 [facility] [id number] [place] [address] May, Anticoagulant long-term use Z79.01 [facility] [id number] [place] [address] Apr, Medicare welcome exam Z00.00 ; Anticoagulant long-term use Z79.01 ; Medicare annual wellness visit, initial Z00.00 ; Medicare annual wellness visit, subsequent Z00.00 and Chronic fatigue, unspecified R53.82 [facility] [id number] [place] [address] Mar, Chronic fatigue, unspecified R53.82 [facility] [id number] [place] [address] Mar, Anticoagulant long-term use Z79.01 [facility] [address] [address] Mar, Anticoagulant long-term use Z79.01 and Hematuria R31.9 [facility] [id number] [place] [address] Mar, Hematuria R31.9 [facility] [id number] [place] [address] Feb, Anticoagulant long-term use Z79.01 [facility] [id number] [place] [address] Feb, Anticoagulant long-term use Z79.01 [facility] [id number] [place] [address] Feb, Anticoagulant long-term use Z79.01 [facility] [id number] [place] [address] Feb, Chronic fatigue, unspecified R53.82 [facility] [id number] [place] [address] Feb, Anticoagulant long-term use Z79.01 [facility] [id number] [place] [address] Feb, Congestive heart failure, unspecified congestive heart failure chronicity, unspecified congestive heart failure type I50.9 [facility] [address] [address] Feb, Congestive heart failure, unspecified congestive heart failure chronicity, unspecified congestive heart failure type I50.9 [facility] [id number] [place] [address] Feb, [facility] [id number] [place] [address] Jan, Anticoagulant long-term use Z79.01 [facility] [id number] [place] [address] Jan, [facility] [id number] [place] [address] Jan, Anticoagulant long-term use Z79.01 and Hematuria R31.9 [facility] [id number] [place] [address] Jan, Anticoagulant long-term use Z79.01 [facility] [id number] [place] [address] Jan, Anticoagulant long-term use Z79.01 [facility] [id number] [place] [address] Jan, Chronic fatigue, unspecified R53.82 [facility] [id number] [place] [address] Dec, Chronic fatigue, unspecified R53.82 [facility] [id number] [place] [address] Dec, [facility] [id number] [place] [address] Dec, Chronic fatigue, unspecified R53.82 and Encounter for therapeutic drug level monitoring Z51.81 [facility] [id number] [place] [address] Nov, Encounter for therapeutic drug level monitoring Z51.81 [facility] [id number] [place] [address] Nov, Hematuria R31.9 [facility] [id number] [place] [address] Nov, Hematuria R31.9 ; Anticoagulant long-term use Z79.01 and PVD (peripheral vascular disease) I73.9 [facility] [address] [place] [address] Nov, Anticoagulant long-term use Z79.01 [facility] [id number] [place] [address] Nov, Anticoagulant long-term use Z79.01 [facility] [id number] [place] [address] Nov, [facility] [id number] [place] [address] Nov, Hematuria R31.9 and Acute cystitis with hematuria N30.01 [facility] [address] [id number] Oct, [place] [id number] [place] [address] Oct, [facility] [address] [address] Oct, Hematuria R31.9 [facility] [id number] [place] [address] Oct, Hematuria R31.9 [facility] [id number] [place] [address] Oct, Anticoagulant long-term use Z79.01 [facility] [address] [address] Oct, Anticoagulant long-term use Z79.01 [facility] [id number] [place] [address] Oct, [facility] [address] [address] September, PVD (peripheral vascular disease) I73.9 ; Amput leg, unil NOS-comp S88.919A ; Acute cystitis without hematuria N30.00 ; Anticoagulant long-term use Z79.01 and Hypokalemia E87.6 [facility] [id number] [place] [address] Aug, Anticoagulant long-term use Z79.01 and Bronchitis J40 [facility] [address] [place] [address] Jul, [facility] [id number] [place] [address] Jul, Anticoagulant long-term use Z79.01 and Mood disorder F39 [facility] [id number] [place] [address] Jul, [facility] [address] [address] May, [facility] [address] [address] May, Hypokalemia E87.6 [facility] [address] [address] May, Mood disorder F39 [facility] [address] [address] May, Anticoagulant long-term use Z79.01 [facility] [address] [address] Apr, Anticoagulant long-term use Z79.01 [facility] [address] [address] Apr, Anticoagulant long-term use Z79.01 [facility] [id number] [place] [address] Apr, [facility] [address] [address] Apr, Anticoagulant long-term use Z79.01 [facility] [address] [address] Apr, Anticoagulant long-term use Z79.01 [facility] [id number] [place] [address] Apr, Anticoagulant long-term use Z79.01 [facility] [address] [address] Mar, [facility] [id number] [place] [address] Mar, [facility] [id number] [place] [address] Mar, Anticoagulant long-term use Z79.01 [facility] [id number] [place] [address] Feb, [facility] [id number] [place] [address] Feb, [facility] [address] [address] Feb, Anticoagulant long-term use Z79.01 [facility] [id number] [place] [address] Feb, Anticoagulant long-term use Z79.01 [facility] [id number] [place] [address] Jan, [facility] [id number] [place] [address] Jan, Anticoagulant long-term use Z79.01 [facility] [id number] [place] [address] Jan, Anticoagulant long-term use Z79.01 [facility] [id number] [place] [address] Dec, Anticoagulant long-term use Z79.01 [facility] [id number] [place] [address] Dec, Anticoagulant long-term use Z79.01 [facility] [id number] [place] [address] Dec, Anticoagulant long-term use Z79.01 and Mood disorder F39 [facility] [id number] [place] [address] Dec, [facility] [address] [address] Nov, [facility] [id number] [place] [address] Nov, Anticoagulant long-term use Z79.01 [facility] [id number] [place] [address] Nov, Anticoagulant long-term use Z79.01 [facility] [id number] [place] [address] September, Anticoagulant long-term use Z79.01 [facility] [id number] [place] [address] Jul, Anticoagulant long-term use Z79.01 [facility] [id number] [place] [address] May, Anticoagulant long-term use Z79.01 [facility] [id number] [place] [address] May, Anticoagulant long-term use Z79.01 [facility] [id number] [place] [address] May, Anticoagulant long-term use Z79.01 [facility] [address] [place] [address] May, Anticoagulant long-term use Z79.01 [facility] [id number] [place] [address] May, [facility] [id number] [place] [address] May, Congestive heart failure, unspecified congestive heart failure chronicity, unspecified congestive heart failure type I50.9 and Pulmonary congestion R09.89 [facility] [id number] [address] Apr, Cough R05 ; Congestive heart failure, unspecified congestive heart failure chronicity, unspecified congestive heart failure type I50.9 and Pulmonary congestion R09.89 [facility] [id number] [place] [address] Mar, Hematuria R31.9 [facility] [id number] [place] [address] Mar, [facility] [address] [address] Mar, Anticoagulant long-term use Z79.01 [facility] [place] [id number] [place] [address] Mar, [facility] [address] [address] Mar, Hematuria R31.9 and Infective urethritis N34.2 [facility] [address] [address] Mar, Anticoagulant long-term use Z79.01 [facility] [address] [address] Mar, Anticoagulant long-term use Z79.01 [facility] [id number] [place] [address] Mar, [facility] [id number] [place] [address] Mar, Anticoagulant long-term use Z79.01 [facility] [id number] [place] [address] Feb, Peristomal skin breakdown L98.499 [facility] [address] [address] Feb, [facility] [id number] [place] [address] Feb, UTI (urinary tract infection) N39.0 [facility] [address] [address] Jan, [facility] [id number] [address] Dec, High risk medication use V58.69 [facility] [address], [place] [address] Nov, High risk medication use V58.69 [facility] [address] [place] [address] Nov, [facility] [address], [place] [address] Nov, UTI (lower urinary tract infection) 599.0 ; URI, acute 465.9 ; Insomnia 780.52 ; Anxiety 300.00 and Lower limb amputation, unspecified level V49.70 [facility] [address], [place] [address] Oct, UTI (lower urinary tract infection) 599.0 ; URI, acute 465.9 ; Insomnia 780.52 ; Anxiety 300.00 and Lower limb amputation, unspecified level V49.70 [facility] [address], [place] [address] Aug, [facility] [address] [address] Aug, [facility] [address], [place] [address] Jul, [facility] [id number], [place] [address] Jul, [facility] [id number], [place] [address] Jun, [facility] [address], [place] [address] Jun, [facility] [id number], [place] [address] Mar, [facility] [place] [facility] [address] [id number] [place] [address] Mar, [facility] [place] [facility] [address] [id number] [place] [address] Mar, [facility] [place] [facility] [address] [id number] [place] [address] Mar, [facility] [place] [facility] [address] [id number] [place] [address] Mar, [facility] [place] [facility] [address] [id number] [place] [address] Feb, [facility] [place] [facility] [address] [id number] [place] [address] Feb, [facility] [place] [facility] [address] [id number] [place] [address] Feb, [facility] [place] [facility] [address] [id number] [place] [address] Feb, [facility] [place] [facility] [address] [id number] [place] [address] Feb, [facility] [place] [facility] [address] [id number] [place] [address] Feb, [facility] [place] [facility] [address] [id number] [place] [address] Feb, [facility] [place] [facility] [address] [id number] [place] [address] Feb, [facility] [place] [facility] [address] [id number] [place] [address] Feb, [facility] [place] [facility] [address] [id number] [place] [address] Feb, [facility] [place] [facility] [address] [id number] [place] [address] Feb, [facility] [place] [facility] [address] [id number] [place] [address] Feb, [facility] [place] [facility] [address] [id number] [place] [address] Feb, [facility] [place] [facility] [address] [id number] [place] [address] Feb, [facility] [place] [facility] [address] [id number] [place] [address] Feb, [facility] [place] [facility] [address] [id number] [place] [address] Feb, [facility] [place] [facility] [address] [id number] [place] [address] Jan, [facility] [place] [facility] [address] [id number] [place] [address] Jan, [facility] [place] [facility] [address] [id number] [place] [address] Jan, [facility] [place] [facility] [address] [id number] [place] [address] Jan, [facility] [place] [facility] [address] [id number] [place] [address] Jan, [facility] [place] [facility] [address] [id number] [place] [address] Nov, [facility] [place] [facility] [address] [id number] [place] [address] Nov, [facility] [place] [facility] [address] [id number] [address] Nov, [facility] [place] [facility] [address] [id number] [place] [address] Nov, [facility] [place] [facility] [address] [id number] [place] [address] Nov, [facility] [place] [facility] [address] [id number] [place] [address] Nov, [facility] [place] [facility] [address] [id number] [place] [address] Oct, [facility] [place] [facility] [address] [id number] [place] [address] Oct, [facility] [place] [facility] [address] [id number] [place] [address] Oct, [facility] [place] [facility] [address] [id number] [place] [address] Oct, [facility] [place] [facility] [address] [id number] [place] [address] Oct, [facility] [place] [facility] [address] [id number] [place] [address] Oct, [facility] [place] [facility] [address] [id number] [place] [address] Oct, [facility] [place] [facility] [address] [id number] [place] [address] September, [facility] [place] [facility] [address] [id number] [place] [address] September, [facility] [place] [facility] [address] [id number] [place] [address] September, [facility] [place] [facility] [address] [id number] [place] [address] September, [facility] [place] [facility] [address] [id number] [place] [address] September, [facility] [place] [facility] [address] [id number] [place] [address] September, [facility] [place] [facility] [address] [id number] [place] [address] September, [facility] [place] [facility] [address] [id number] [place] [address] September, [facility] [place] [facility] [address] [id number] [place] [address] Aug, [facility] [place] [facility] [address] [id number] [place] [address] Aug, [facility] [place] [facility] [address] [id number] [place] [address] Aug, [facility] [place] [facility] [address] [id number] [place] [address] Aug, [facility] [place] [facility] [address] [id number] [place] [address] Jul, [facility] [place] [facility] [address] [id number] [place] [address] Jul, [facility] [place] [facility] [address] [id number] [place] [address] Jun, [facility] [place] [facility] [address] [id number] [place] [address] Jun, [facility] [place] [facility] [address] [id number] [place] [address] Jun, [facility] [place] [facility] [address] [id number] [place] [address] Jun, [facility] [place] [facility] [address] [id number] [place] [address] Jun, [facility] [place] [facility] [address] [id number] [place] [address] Jun, [facility] [place] [facility] [address] [id number] [place] [address] May, [facility] [place] [facility] [address] [id number] [place] [address] May, [facility] [place] [facility] [address] [id number] [place] [address] May, [facility] [place] [facility] [address] [id number] [place] [address] May, [facility] [place] [facility] [address] [id number] [place] [address] May, [facility] [address] [id number] [place] [address] May, [facility] [place] [facility] [address] [id number] [place] [address] Feb, [facility] [place] [facility] [address] [id number] [place] [address] Feb, [facility] [place] [facility] [address] [id number] [place] [address] Feb, [facility] [place] [facility] [address] [id number] [place] [address] Feb, [facility] [place] [facility] [address] [id number] [place] [address] Jan, [facility] [place] [facility] [address] [id number] [place] [address] Jan, [facility] [place] [facility] [address] [id number] [place] [address] Jan, [facility] [place] [facility] [address] [id number] [place] [address] Dec, [facility] [place] [facility] [address] [id number] [place] [address] Nov, [facility] [place] [facility] [address] [id number] [place] [address] Nov, [facility] [place] [facility] [address] [id number] [place] [address] Nov, [facility] [place] [facility] [address] [id number] [place] [address] Nov, [facility] [place] [facility] [address] [id number] [place] [address] Nov, [facility] [place] [facility] [address] [id number] [place] [address] Oct, [facility] [place] [facility] [address] [id number] [place] [address] September, [facility] [address] [id number] [place] [address] September, [facility] [address] [id number] [place] [address] Aug, [facility] [address] [id number] [place] [address] Aug, [facility] [address] [id number] [place] [address] Jul, [facility] [address] [id number] [place] [address] Jul, [facility] [address] [id number] [place] [address] Jul, [facility] [address] [id number] [place] [address] Jul, [facility] [address] [id number] [place] [address] Jun, [facility] [address] [id number] [place] [address] Jun, [facility] [address] [id number] [place] [address] Jun, [facility] [address] [id number] [place] [address] May, [facility] [place] [facility] [address] [id number] [place] [address] May, [facility] [place] [facility] [address] [id number] [place] [address] May, [facility] [place] [facility] [address] [id number] [place] [address] May, [facility] [place] [facility] [address] [id number] [address] Apr, [facility] [place] [facility] [address] [id number] [place] [address] Apr, [facility] [place] [facility] [address] [id number] [place] [address] Apr, [facility] [place] [facility] [address] [id number] [place] [address] Apr, [facility] [place] [facility] [address] [id number] [place] [address] Apr, [facility] [place] [facility] [address] [address] [id number] [place] [address] Apr, [facility] [place] [facility] [address] [id number] [place] [address] Mar, [facility] [place] [facility] [address] [id number] [place] [address] Mar, [facility] [place] [facility] [address] [id number] [place] [address] Mar, [facility] [place] [facility] [address] [id number], [place] [address] Mar, [facility] [place] [facility] [address] [id number] [place] [address] Mar, [facility] [place] [facility] [address] [id number], [place] [address] Mar, [facility] [place] [facility] [address] [id number], [place] [address] Feb, [facility] [place] [facility] [address] [id number], [place] [address] Feb, [facility] [place] [facility] [address] [id number], [place] [address] Feb, [facility] [place] [facility] [address] [id number] [place] [address] Feb, [facility] [place] [facility] [address] [id number] [place] [address] 25 Jan, 2012 [facility] [address] [id number] [place] [address] 25 Jan, 2012 [facility] [place] [facility] [address] [id number] [place] [address] 24 Jan, 2012 [facility] [address] [id number] [place] [address] Jan, [facility] [address] [id number] [place] [address] Dec, [facility] [address] [id number] [place] [address] Dec, [facility] [address] [id number] [place] [address] Nov, [facility] [address] [id number] [place] [address] Oct, [facility] [address] [id number] [place] [address] Oct, [facility] [address] [id number] [place] [address] Oct, [facility] [address] [id number] [place] [address] September, [facility] [address] [id number] [place] [address] September, [facility] [address] [id number] [place] [address] September, [facility] [place] [facility] [address] [id number] [place] [address] September, [facility] [address] [id number] [place] [address] September, [facility] [address] [id number] [place] [address] September, [facility] [place] [facility] [address] [id number] [place] [address] September, [facility] [place] [facility] [address] [id number] [place] [address] Jul, [facility] [place] [facility] [address] [id number] [place] [address] Jul, [facility] [place] [facility] [address] [id number] [place] [address] Jun, [facility] [place] [facility] [address] [id number] [place] [address] Jun, [facility] [place] [facility] [address] [id number] [place] [address] Jun, [facility] [place] [facility] [address] [id number] [place] [address] May, [facility] [place] [facility] [address] [id number] [place] [address] Mar, [facility] [place] [facility] [address] [id number] [place] [address] Mar, [facility] [place] [facility] [address] [id number] [place] [address] Mar, [facility] [place] [facility] [address] [id number] [place] [address] Feb, [facility] [place] [facility] [address] [id number], [place] [address] Feb, [facility] [place] [facility] [address] [id number] [place] [address] Dec, [facility] [place] [facility] [address] [id number] [place] [address] 15 May, 2009 [facility] [place] [facility] [address] [id number] [place] [address] Apr, [facility] [place] [facility] [address] [facility] [id number] [place] [address] 28 Apr, 2009 [facility] [address] [facility] [id number], [place] [address] Apr, [facility] [address] [id number], [place] [address] Apr, [facility] [address] [facility] [id number], [place] [address] Feb, [facility] [address] [facility] [id number], [place] [address] Oct, IMMUNIZATIONS No Known Immunizations SOCIAL HISTORY Never Assessed REASON FOR VISIT per lab results PLAN OF CARE VITAL SIGNS MEDICATIONS [...] 5th toe removal 06/25/2009 Hospitalization History pneumonia, hypoxia-[facility] 11/03/16
--- OUTSIDE RECORDS SUMMARY | 2018-12-05 12:05 | XMS REPORT ---
Author Author ERIK SAMAYOA [facility] Address [address] [place] [address] Care Team Providers Care Scientific Database Curator Name Role Phone ERIK SAMAYOA Unavailable PROBLEMS Type Condition ICD9-CM Code [id number] Code Onset Dates Condition Status SNOMED Code Problem Chronic fatigue, unspecified R53.82 Active 160052610 Problem PVD (peripheral vascular disease) I73.9 Active 946887736 Problem Anticoagulant long-term use Z79.01 Active 755100517 Problem Major depressive disorder, single episode, unspecified F32.9 Active 47968468 Problem Amput leg, unil NOS-comp S88.919A Active 39509400 Problem Mood disorder F39 Active 19876086 ALLERGIES No Known Allergies SOCIAL HISTORY No smoking Hx information available PLAN OF CARE VITAL SIGNS MEDICATIONS Unknown Medications RESULTS No Results PROCEDURES No Known procedures IMMUNIZATIONS No Known Immunizations
--- OUTSIDE RECORDS SUMMARY | 2018-12-05 12:06 | XMS REPORT ---
Author Author ERIK SAMAYOA Organization [facility] Address [address] [place] [address] Care Team Providers Care Account Retention Representative Name Role Phone ERIK SAMAYOA Unavailable PROBLEMS Type Condition ICD9-CM Code [id number] Code Onset Dates Condition Status SNOMED Code Problem Acute cystitis with hematuria N30.01 Active 91726622 Problem Major depressive disorder, single episode, unspecified F32.9 Active 10537271 Problem Congestive heart failure, unspecified congestive heart failure chronicity, unspecified congestive heart failure type I50.9 Active 64788998 Problem Chronic fatigue, unspecified R53.82 Active 873914371 Problem Mood disorder F39 Active 57737391 Problem Anticoagulant long-term use Z79.01 Active 107939542 Problem PVD (peripheral vascular disease) I73.9 Active 020145649 Problem Amput leg, unil NOS-comp S88.919A Active 10546293 ALLERGIES No Information ENCOUNTERS Encounter Location Date Diagnosis [place] [address] [address] Aug, [place] [address] [address] Jul, Vitamin B 12 deficiency E53.8 [place] [address] [address] Jul, Anticoagulant long-term use Z79.01 [place] [address] [address] Jun, Chronic fatigue, unspecified R53.82 [place] [address] [address] Jun, Anticoagulant long-term use Z79.01 [place] [address] [address] May, Flu-like symptoms R68.89 and Influenza A J10.1 [place] [address] [place] [id number] [place] [address] May, [place] [address] [place] [id number] [place] [address] May, Chronic fatigue, unspecified R53.82 [place] [address] [place] [id number] [place] [address] May, Anticoagulant long-term use Z79.01 [place] [address] [place] [id number] [place] [address] Apr, Medicare welcome exam Z00.00 ; Anticoagulant long-term use Z79.01 ; Medicare annual wellness visit, initial Z00.00 ; Medicare annual wellness visit, subsequent Z00.00 and Chronic fatigue, unspecified R53.82 [place] [address] [place] [id number] [place] [address] Mar, Chronic fatigue, unspecified R53.82 [place] [address] [place] [id number] [place] [address] Mar, Anticoagulant long-term use Z79.01 [place] [address] [place] [id number] [place] [address] Mar, Anticoagulant long-term use Z79.01 and Hematuria R31.9 [place] [address] [place] [id number] [place] [address] Mar, Hematuria R31.9 [place] [address] [place] [id number] [place] [address] Feb, Anticoagulant long-term use Z79.01 [place] [address] [place] [id number] [place] [address] Feb, Anticoagulant long-term use Z79.01 [place] [address] [place] [id number] [place] [address] Feb, Anticoagulant long-term use Z79.01 [facility] [address] [address] Feb, Chronic fatigue, unspecified R53.82 [place] [address] [place] [id number] [place] [address] Feb, Anticoagulant long-term use Z79.01 [place] [address] [place] [id number] [place] [address] Feb, Congestive heart failure, unspecified congestive heart failure chronicity, unspecified congestive heart failure type I50.9 [place] [address] [place] [id number] [place] [address] Feb, Congestive heart failure, unspecified congestive heart failure chronicity, unspecified congestive heart failure type I50.9 [place] [address] [place] [id number] [place] [address] Feb, [place] [address] [place] [id number] [place] [address] Jan, Anticoagulant long-term use Z79.01 [place] [address] [place] [id number] [place] [address] Jan, [place] [address] [place] [id number] [place] [address] Jan, Anticoagulant long-term use Z79.01 and Hematuria R31.9 [place] [address] [place] [id number] [place] [address] Jan, Anticoagulant long-term use Z79.01 [place] [address] [place] [id number] [place] [address] Jan, Chronic fatigue, unspecified R53.82 [place] [address] [place] [id number] [place] [address] Jan, Anticoagulant long-term use Z79.01 [place] [address] [place] [id number] [place] [address] Dec, Chronic fatigue, unspecified R53.82 [facility] [id number] [place] [address] Dec, [facility] [address] [place] [id number] [place] [address] Dec, Chronic fatigue, unspecified R53.82 and Encounter for therapeutic drug level monitoring Z51.81 [facility] [address] [place] [id number] [place] [address] Nov, Encounter for therapeutic drug level monitoring Z51.81 [facility] [address] [place] [id number] [place] [address] Nov, Hematuria R31.9 [facility] [address] [place] [id number] [place] [address] Nov, Hematuria R31.9 ; Anticoagulant long-term use Z79.01 and PVD (peripheral vascular disease) I73.9 [facility] [address] [place] [id number] [place] [address] Nov, Anticoagulant long-term use Z79.01 [facility] [address] [place] [id number] [place] [address] Nov, Anticoagulant long-term use Z79.01 [facility] [address] [place] [id number] [place] [address] Nov, [facility] [address] [place] [id number] [place] [address] Nov, Hematuria R31.9 and Acute cystitis with hematuria N30.01 [facility] [address] [place] [id number] [place] [id number] Oct, [facility] [address] [place] [id number] [place] [address] Oct, [facility] [address] [place] [id number] [place] [address] Oct, Hematuria R31.9 [place] [address] [place] [id number] [place] [address] Oct, Hematuria R31.9 [place] [address] [address] Oct, Anticoagulant long-term use Z79.01 [place] [address] [address] Oct, Anticoagulant long-term use Z79.01 [place] [address] [address] Oct, [place] [address] [address] September, PVD (peripheral vascular disease) I73.9 ; Amput leg, unil NOS-comp S88.919A ; Acute cystitis without hematuria N30.00 ; Anticoagulant long-term use Z79.01 and Hypokalemia E87.6 [place] [address] [address] Aug, Anticoagulant long-term use Z79.01 and Bronchitis J40 [place] [address] [address] Jul, [place] [address] [address] Jul, Anticoagulant long-term use Z79.01 and Mood disorder F39 [place] [address] [place] [id number] [place] [address] Jul, [place] [address] [address] May, [place] [address] [address] May, Hypokalemia E87.6 [place] [address] [address] May, Mood disorder F39 [place] [address] [place] [id number] [place] [address] May, Anticoagulant long-term use Z79.01 [facility] [address] [place] [id number] [place] [address] Apr, Anticoagulant long-term use Z79.01 [facility] [address] [place] [id number] [place] [address] Apr, Anticoagulant long-term use Z79.01 [facility] [address] [place] [id number] [place] [address] Apr, [facility] [address] [address] Apr, Anticoagulant long-term use Z79.01 [facility] [address] [place] [id number] [place] [address] Apr, Anticoagulant long-term use Z79.01 [facility] [address] [place] [id number] [place] [address] Apr, Anticoagulant long-term use Z79.01 [facility] [address] [place] [id number] [place] [address] Mar, [facility] [address] [place] [id number] [place] [address] Mar, [facility] [address] [place] [id number] [place] [address] Mar, Anticoagulant long-term use Z79.01 [facility] [address] [place] [id number] [place] [address] Feb, [facility] [address] [address] Feb, [facility] [address] [place] [id number] [place] [address] Feb, Anticoagulant long-term use Z79.01 [facility] [address] [place] [address] Feb, Anticoagulant long-term use Z79.01 [facility] [address] [place] [id number] [place] [address] Jan, [facility] [address] [address] Jan, Anticoagulant long-term use Z79.01 [facility] [address] [address] Jan, Anticoagulant long-term use Z79.01 [facility] [address] [place] [id number] [place] [address] Dec, Anticoagulant long-term use Z79.01 [facility] [address] [place] [id number] [place] [address] Dec, Anticoagulant long-term use Z79.01 [facility] [address] [address] Dec, Anticoagulant long-term use Z79.01 and Mood disorder F39 [facility] [address] [place] [id number] [place] [address] Dec, [facility] [address] [place] [id number] [place] [address] Nov, [facility] [address] [place] [id number] [place] [address] Nov, Anticoagulant long-term use Z79.01 [facility] [address] [place] [id number] [place] [address] Nov, Anticoagulant long-term use Z79.01 [facility] [address] [address] September, Anticoagulant long-term use Z79.01 [facility] [address] [place] [id number] [place] [address] Jul, Anticoagulant long-term use Z79.01 [facility] [address] [place] [id number] [place] [address] May, Anticoagulant long-term use Z79.01 [facility] [address] [place] [id number] [place] [address] May, Anticoagulant long-term use Z79.01 [facility] [address] [place] [id number] [place] [address] May, Anticoagulant long-term use Z79.01 [place] [address] [place] [id number] [place] [address] May, Anticoagulant long-term use Z79.01 [place] [address] [address] May, [place] [address] [place] [id number] [place] [address] May, Congestive heart failure, unspecified congestive heart failure chronicity, unspecified congestive heart failure type I50.9 and Pulmonary congestion R09.89 [place] [address] [place] [id number] [place] [address] Apr, Cough R05 ; Congestive heart failure, unspecified congestive heart failure chronicity, unspecified congestive heart failure type I50.9 and Pulmonary congestion R09.89 [place] [address] [place] [id number] [place] [address] Mar, Hematuria R31.9 [place] [address] [place] [id number] [place] [address] Mar, [place] [address] [place] [id number] [place] [address] Mar, Anticoagulant long-term use Z79.01 [place] [address] [place] [id number] [place] [address] Mar, [place] [address] [place] [id number] [place] [address] Mar, Hematuria R31.9 and Infective urethritis N34.2 [facility] [address] [address] Mar, Anticoagulant long-term use Z79.01 [facility] [id number] [place] [address] Mar, Anticoagulant long-term use Z79.01 [facility] [id number] [place] [address] Mar, [facility] [address] [place] [id number] [place] [address] Mar, Anticoagulant long-term use Z79.01 [facility] [address] [place] [id number] [place] [address] Feb, Peristomal skin breakdown L98.499 [facility] [address] [place] [id number] [place] [address] Feb, [facility] [address] [place] [id number] [place] [address] Feb, UTI (urinary tract infection) N39.0 [facility] [id number] [place] [address] Jan, [facility] [id number] [place] [address] Dec, High risk medication use V58.69 [place] [id number] [place] [address] Nov, High risk medication use V58.69 [place] [id number] [place] [address] Nov, [facility] [id number] [place] [address] Nov, UTI (lower urinary tract infection) 599.0 ; URI, acute 465.9 ; Insomnia 780.52 ; Anxiety 300.00 and Lower limb amputation, unspecified level V49.70 [place] [address] [address] 10 Oct, 2014 UTI (lower urinary tract infection) 599.0 ; URI, acute 465.9 ; Insomnia 780.52 ; Anxiety 300.00 and Lower limb amputation, unspecified level V49.70 [facility] [address] [facility] [id number] [address] 14 Aug, 2014 [facility] [address] [facility] [id number] [place] [address] Aug, [facility] [address] [facility] [id number] [address] Jul, [facility] [address] [place] [id number] [place] [address] Jul, [facility] [address] [address] Jun, [facility] [address] [place] [id number] [place] [address] Jun, [facility] [address] [place] [id number] [address] Mar, [facility] [address] [address] Mar, [facility] [address] [place] [id number] [address] Mar, [facility] [address] [facility] [id number] [address] Mar, [facility] [address] [facility] [id number] [address] Mar, [facility] [address] [place] [id number] [address] Feb, [facility] [address] [place] [id number] [address] Feb, [facility] [address] [place] [id number] [address] Feb, [facility] [place] [facility] [address] [id number] [place] [address] Feb, [facility] [place] [facility] [address] [id number] [place] [address] Feb, [facility] [place] [facility] [address] [id number] [place] [address] Feb, [facility] [place] [facility] [address] [id number] [place] [address] Feb, [facility] [place] [facility] [address] [id number] [place] [address] Feb, [facility] [place] [facility] [address] [id number] [place] [address] Feb, [facility] [place] [facility] [address] [id number] [place] [address] Feb, [facility] [place] [facility] [address] [id number] [place] [address] Feb, [facility] [place] [facility] [address] [id number] [place] [address] Feb, [facility] [place] [facility] [address] [id number] [place] [address] Feb, [facility] [place] [facility] [address] [id number] [address] Feb, [facility] [place] [facility] [address] [id number] [address] Feb, [facility] [place] [facility] [address] [id number] [place] [address] Feb, [facility] [place] [facility] [address] [id number] [address] 28 Jan, 2014 [facility] [place] [facility] [address] [id number] [place] [address] 26 Jan, 2014 [facility] [place] [facility] [address] [id number] [place] [address] Jan, 2013 [facility] [place] [facility] [address] [id number] [place] [address] Jan, [facility] [place] [facility] [address] [id number] [facility] [address] Jan, [facility] [place] [facility] [address] [id number] [place] [address] Nov, [facility] [place] [facility] [address] [id number] [place] [address] Nov, [facility] [place] [facility] [address] [id number] [place] [address] Nov, [facility] [place] [facility] [address] [id number] [place] [address] Nov, [facility] [place] [facility] [address] [id number] [place] [address] Nov, [facility] [place] [facility] [address] [id number] [place] [address] Nov, [facility] [place] [facility] [address] [id number] [place] [address] Oct, [facility] [place] [facility] [address] [id number] [place] [address] Oct, [facility] [place] [facility] [address] [id number] [place] [address] Oct, [facility] [place] [facility] [address] [id number] [place] [address] Oct, [facility] [place] [facility] [address] [id number] [place] [address] Oct, [facility] [place] [facility] [address] [id number] [place] [address] Oct, [facility] [place] [facility] [address] [id number] [place] [address] Oct, [facility] [place] [facility] [address] [id number] [place] [address] September, [facility] [place] [facility] [address] [id number] [place] [address] September, [facility] [place] [facility] [address] [id number] [place] [address] September, [facility] [place] [facility] [address] [id number] [place] [address] September, [facility] [place] [facility] [address] [id number] [place] [address] September, [facility] [place] [facility] [address] [id number] [place] [address] September, [facility] [place] [facility] [address] [id number] [place] [address] September, [facility] [place] [facility] [address] [id number] [place] [address] September, [facility] [place] [facility] [address] [id number] [place] [address] Aug, [facility] [place] [facility] [address] [id number] [place] [address] Aug, [facility] [place] [facility] [address] [id number] [place] [address] Aug, [facility] [place] [facility] [address] [id number] [place] [address] Aug, [facility] [place] [facility] [address] [id number] [place] [address] Jul, [facility] [place] [facility] [address] [id number] [place] [address] Jul, [facility] [place] [facility] [address] [id number] [place] [address] Jun, [facility] [place] [facility] [address] [id number] [place] [address] Jun, [facility] [place] [facility] [address] [id number] [place] [address] Jun, [facility] [place] [facility] [address] [id number] [place] [address] Jun, [facility] [place] [facility] [address] [id number] [place] [address] Jun, [facility] [place] [facility] [address] [id number] [place] [address] Jun, [facility] [place] [facility] [address] [id number] [place] [address] May, [facility] [place] [facility] [address] [id number] [place] [address] May, [facility] [place] [facility] [address] [id number] [place] [address] May, [facility] [place] [facility] [address] [id number] [place] [address] May, [facility] [place] [facility] [address] [id number] [place] [address] May, [facility] [place] [facility] [address] [id number] [place] [address] May, [facility] [place] [facility] [address] [id number] [place] [address] Feb, [facility] [place] [facility] [address] [id number] [address] Feb, [facility] [place] [facility] [address] [id number] [place] [address] Feb, [facility] [place] [facility] [address] [id number] [place] [address] Feb, [facility] [place] [facility] [address] [id number] [place] [address] Jan, [facility] [address] [id number] [place] [address] Jan, [facility] [place] [facility] [address] [id number] [place] [address] Jan, [facility] [place] [facility] [address] [id number] [place] [address] Dec, [facility] [place] [facility] [address] [id number] [place] [address] Nov, [facility] [address] [id number] [place] [address] Nov, [facility] [place] [facility] [address] [id number] [place] [address] Nov, [facility] [place] [facility] [address] [id number] [place] [address] Nov, [facility] [place] [facility] [address] [id number] [place] [address] Nov, [facility] [place] [facility] [address] [id number] [place] [address] Oct, [facility] [place] [facility] [address] [id number] [place] [address] September, [facility] [place] [facility] [address] [id number] [place] [address] September, [facility] [place] [facility] [address] [id number] [place] [address] Aug, [facility] [place] [facility] [address] [id number] [place] [address] Aug, [facility] [place] [facility] [address] [id number] [place] [address] Jul, [facility] [place] [facility] [address] [id number] [place] [address] Jul, [facility] [place] [facility] [address] [id number] [place] [address] 08 Jul, 2012 [facility] [address] [id number] [place] [address] Jul, [facility] [place] [facility] [address] [id number] [place] [address] Jun, [facility] [address] [id number] [place] [address] Jun, [facility] [place] [facility] [address] [id number] [place] [address] Jun, [facility] [address] [id number] [place] [address] May, [facility] [address] [id number] [place] [address] May, [facility] [address] [id number] [place] [address] May, [facility] [address] [id number] [place] [address] May, [facility] [address] [id number] [place] [address] Apr, [facility] [address] [id number] [place] [address] Apr, [facility] [address] [id number] [place] [address] Apr, [facility] [place] [facility] [address] [id number] [place] [address] 05 Apr, 2012 [facility] [place] [facility] [address] [id number] [place] [address] Apr, [facility] [place] [facility] [address] [id number] [place] [address] Apr, [facility] [address] [id number] [place] [address] Mar, [facility] [place] [facility] [address] [id number] [place] [address] Mar, [facility] [place] [facility] [address] [id number] [place] [address] Mar, [facility] [place] [facility] [address] [id number] [place] [address] Mar, [facility] [place] [facility] [address] [id number] [place] [address] Mar, [facility] [place] [facility] [address] [id number] [place] [address] Mar, [facility] [place] [facility] [address] [id number] [place] [address] Feb, [facility] [place] [facility] [address] [id number] [place] [address] Feb, [facility] [place] [facility] [address] [id number] [place] [address] Feb, [facility] [place] [facility] [address] [id number] [place] [address] Feb, [facility] [place] [facility] [address] [id number] [place] [address] Jan, [facility] [place] [facility] [address] [id number] [place] [address] Jan, [facility] [place] [facility] [address] [id number] [place] [address] 24 Jan, 2012 [facility] [place] [facility] [address] [id number] [place] [address] 10 Jan, 2012 [facility] [place] [facility] [address] [id number] [place] [address] Dec, [facility] [place] [facility] [address] [id number] [place] [address] Dec, [facility] [place] [facility] [address] [id number] [place] [address] Nov, [facility] [place] [facility] [address] [id number] [place] [address] Oct, [facility] [place] [facility] [address] [id number] [place] [address] Oct, [facility] [place] [facility] [address] [id number] [place] [address] Oct, [facility] [place] [facility] [address] [id number] [place] [address] September, [facility] [place] [facility] [address] [id number] [place] [address] September, [facility] [place] [facility] [address] [id number] [place] [address] September, [facility] [place] [facility] [address] [id number] [place] [address] September, [facility] [place] [facility] [address] [id number] [place] [address] September, [facility] [place] [facility] [address] [id number] [place] [address] September, [facility] [place] [facility] [address] [id number] [place] [address] September, [facility] [place] [facility] [address] [id number] [place] [address] Jul, [facility] [place] [facility] [address] [id number] [place] [address] Jul, [facility] [place] [facility] [address] [id number] [place] [address] Jun, [facility] [place] [facility] [address] [id number] [place] [address] Jun, [facility] [place] [facility] [address] [id number] [place] [address] Jun, [facility] [place] [facility] [id number] [address] 10 May, 2011 [facility] [id number] [address] 29 Mar, 2011 [facility] [id number] [address] Mar, [facility] [id number] [address] 14 Mar, 2011 [facility] [address] [facility] [id number] [address] Feb, [facility] [id number] [place] [address] Feb, [facility] [id number] [address] Dec, [facility] [id number] [place] [address] May, [facility] [id number] [address] Apr, [facility] [id number] [address] Apr, [facility] [id number] [address] Apr, [facility] [id number] [address] Apr, [facility] [id number] [address] Feb, [facility] [id number] [address] Oct, IMMUNIZATIONS No Known Immunizations SOCIAL HISTORY [...]
--- OUTSIDE RECORDS SUMMARY | 2018-12-05 12:06 | XMS REPORT ---
Author Author ERIK SAMAYOA Organization [facility] Address [address] [place] [address] Care Team Providers Care Corporate Compliance Director Name Role Phone ERIK SAMAYOA Unavailable PROBLEMS Type Condition ICD9-CM Code ZJV93-RX Code Onset Dates Condition Status SNOMED Code Problem Acute cystitis with hematuria N30.01 Active 66587944 Problem Major depressive disorder, single episode, unspecified F32.9 Active 86916487 Problem Congestive heart failure, unspecified congestive heart failure chronicity, unspecified congestive heart failure type I50.9 Active 72897454 Problem Chronic fatigue, unspecified R53.82 Active 852699169 Problem Mood disorder F39 Active 25595654 Problem Anticoagulant long-term use Z79.01 Active 624458916 Problem PVD (peripheral vascular disease) I73.9 Active 513542878 Problem Amput leg, unil NOS-comp S88.919A Active 07988292 ALLERGIES No Information ENCOUNTERS Encounter Location Date Diagnosis [place] [address] [address] Aug, [place] [address] [address] Jul, Vitamin B 12 deficiency E53.8 [place] [address] [address] Jul, Anticoagulant long-term use Z79.01 [place] [address] [address] Jun, Chronic fatigue, unspecified R53.82 [place] [address] [address] Jun, Anticoagulant long-term use Z79.01 [place] [address] [address] May, Flu-like symptoms R68.89 and Influenza A J10.1 [place] [address] [place] [id number] [place] [address] May, [place] [address] [place] [id number] [place] [address] May, Chronic fatigue, unspecified R53.82 [place] [address] [place] [id number] [place] [address] May, Anticoagulant long-term use Z79.01 [place] [address] [place] [id number] [place] [address] Apr, Medicare welcome exam Z00.00 ; Anticoagulant long-term use Z79.01 ; Medicare annual wellness visit, initial Z00.00 ; Medicare annual wellness visit, subsequent Z00.00 and Chronic fatigue, unspecified R53.82 [place] [address] [place] [id number] [place] [address] Mar, Chronic fatigue, unspecified R53.82 [place] [address] [place] [id number] [place] [address] Mar, Anticoagulant long-term use Z79.01 [place] [address] [place] [id number] [place] [address] Mar, Anticoagulant long-term use Z79.01 and Hematuria R31.9 [place] [address] [place] [id number] [place] [address] Mar, Hematuria R31.9 [place] [address] [place] [id number] [place] [address] Feb, Anticoagulant long-term use Z79.01 [place] [address] [place] [id number] [place] [address] Feb, Anticoagulant long-term use Z79.01 [place] [address] [place] [id number] [place] [address] Feb, Anticoagulant long-term use Z79.01 [facility] [address] [address] Feb, Chronic fatigue, unspecified R53.82 [place] [address] [place] [id number] [place] [address] Feb, Anticoagulant long-term use Z79.01 [place] [address] [place] [id number] [place] [address] Feb, Congestive heart failure, unspecified congestive heart failure chronicity, unspecified congestive heart failure type I50.9 [place] [address] [place] [id number] [place] [address] Feb, Congestive heart failure, unspecified congestive heart failure chronicity, unspecified congestive heart failure type I50.9 [place] [address] [place] [id number] [place] [address] Feb, [place] [address] [place] [id number] [place] [address] Jan, Anticoagulant long-term use Z79.01 [place] [address] [place] [id number] [place] [address] Jan, [place] [address] [place] [id number] [place] [address] Jan, Anticoagulant long-term use Z79.01 and Hematuria R31.9 [place] [address] [place] [id number] [place] [address] Jan, Anticoagulant long-term use Z79.01 [place] [address] [place] [id number] [place] [address] Jan, Chronic fatigue, unspecified R53.82 [place] [address] [place] [id number] [place] [address] Jan, Anticoagulant long-term use Z79.01 [place] [address] [place] [id number] [place] [address] Dec, Chronic fatigue, unspecified R53.82 [facility] [id number] [place] [address] Dec, [facility] [address] [place] [id number] [place] [address] Dec, Chronic fatigue, unspecified R53.82 and Encounter for therapeutic drug level monitoring Z51.81 [facility] [address] [place] [id number] [place] [address] Nov, Encounter for therapeutic drug level monitoring Z51.81 [facility] [address] [place] [id number] [place] [address] Nov, Hematuria R31.9 [facility] [address] [place] [id number] [place] [address] Nov, Hematuria R31.9 ; Anticoagulant long-term use Z79.01 and PVD (peripheral vascular disease) I73.9 [facility] [address] [place] [id number] [place] [address] Nov, Anticoagulant long-term use Z79.01 [facility] [address] [place] [id number] [place] [address] Nov, Anticoagulant long-term use Z79.01 [facility] [address] [place] [id number] [place] [address] Nov, [facility] [address] [place] [id number] [place] [address] Nov, Hematuria R31.9 and Acute cystitis with hematuria N30.01 [facility] [address] [place] [id number] [place] [id number] Oct, [facility] [address] [place] [id number] [place] [address] Oct, [facility] [address] [place] [id number] [place] [address] Oct, Hematuria R31.9 [place] [address] [place] [id number] [place] [address] Oct, Hematuria R31.9 [place] [address] [address] Oct, Anticoagulant long-term use Z79.01 [place] [address] [address] Oct, Anticoagulant long-term use Z79.01 [place] [address] [address] Oct, [place] [address] [address] September, PVD (peripheral vascular disease) I73.9 ; Amput leg, unil NOS-comp S88.919A ; Acute cystitis without hematuria N30.00 ; Anticoagulant long-term use Z79.01 and Hypokalemia E87.6 [place] [address] [address] Aug, Anticoagulant long-term use Z79.01 and Bronchitis J40 [place] [address] [address] Jul, [place] [address] [address] Jul, Anticoagulant long-term use Z79.01 and Mood disorder F39 [place] [address] [place] [id number] [place] [address] Jul, [place] [address] [address] May, [place] [address] [address] May, Hypokalemia E87.6 [place] [address] [address] May, Mood disorder F39 [place] [address] [place] [id number] [place] [address] May, Anticoagulant long-term use Z79.01 [facility] [address] [place] [id number] [place] [address] Apr, Anticoagulant long-term use Z79.01 [facility] [address] [place] [id number] [place] [address] Apr, Anticoagulant long-term use Z79.01 [facility] [address] [place] [id number] [place] [address] Apr, [facility] [address] [address] Apr, Anticoagulant long-term use Z79.01 [facility] [address] [place] [id number] [place] [address] Apr, Anticoagulant long-term use Z79.01 [facility] [address] [place] [id number] [place] [address] Apr, Anticoagulant long-term use Z79.01 [facility] [address] [place] [id number] [place] [address] Mar, [facility] [address] [place] [id number] [place] [address] Mar, [facility] [address] [place] [id number] [place] [address] Mar, Anticoagulant long-term use Z79.01 [facility] [address] [place] [id number] [place] [address] Feb, [facility] [address] [address] Feb, [facility] [address] [place] [id number] [place] [address] Feb, Anticoagulant long-term use Z79.01 [facility] [address] [place] [address] Feb, Anticoagulant long-term use Z79.01 [facility] [address] [place] [id number] [place] [address] Jan, [facility] [address] [address] Jan, Anticoagulant long-term use Z79.01 [facility] [address] [address] Jan, Anticoagulant long-term use Z79.01 [facility] [address] [place] [id number] [place] [address] Dec, Anticoagulant long-term use Z79.01 [facility] [address] [place] [id number] [place] [address] Dec, Anticoagulant long-term use Z79.01 [facility] [address] [address] Dec, Anticoagulant long-term use Z79.01 and Mood disorder F39 [facility] [address] [place] [id number] [place] [address] Dec, [facility] [address] [place] [id number] [place] [address] Nov, [facility] [address] [place] [id number] [place] [address] Nov, Anticoagulant long-term use Z79.01 [facility] [address] [place] [id number] [place] [address] Nov, Anticoagulant long-term use Z79.01 [facility] [address] [address] September, Anticoagulant long-term use Z79.01 [facility] [address] [place] [id number] [place] [address] Jul, Anticoagulant long-term use Z79.01 [facility] [address] [place] [id number] [place] [address] May, Anticoagulant long-term use Z79.01 [facility] [address] [place] [id number] [place] [address] May, Anticoagulant long-term use Z79.01 [facility] [address] [place] [id number] [place] [address] May, Anticoagulant long-term use Z79.01 [place] [address] [place] [id number] [place] [address] May, Anticoagulant long-term use Z79.01 [place] [address] [address] May, [place] [address] [place] [id number] [place] [address] May, Congestive heart failure, unspecified congestive heart failure chronicity, unspecified congestive heart failure type I50.9 and Pulmonary congestion R09.89 [place] [address] [place] [id number] [place] [address] Apr, Cough R05 ; Congestive heart failure, unspecified congestive heart failure chronicity, unspecified congestive heart failure type I50.9 and Pulmonary congestion R09.89 [place] [address] [place] [id number] [place] [address] Mar, Hematuria R31.9 [place] [address] [place] [id number] [place] [address] Mar, [place] [address] [place] [id number] [place] [address] Mar, Anticoagulant long-term use Z79.01 [place] [address] [place] [id number] [place] [address] Mar, [place] [address] [place] [id number] [place] [address] Mar, Hematuria R31.9 and Infective urethritis N34.2 [facility] [address] [address] Mar, Anticoagulant long-term use Z79.01 [facility] [id number] [place] [address] Mar, Anticoagulant long-term use Z79.01 [facility] [id number] [place] [address] Mar, [facility] [address] [place] [id number] [place] [address] Mar, Anticoagulant long-term use Z79.01 [facility] [address] [place] [id number] [place] [address] Feb, Peristomal skin breakdown L98.499 [facility] [address] [place] [id number] [place] [address] Feb, [facility] [address] [place] [id number] [place] [address] Feb, UTI (urinary tract infection) N39.0 [facility] [id number] [place] [address] Jan, [facility] [id number] [place] [address] Dec, High risk medication use V58.69 [place] [id number] [place] [address] Nov, High risk medication use V58.69 [place] [id number] [place] [address] Nov, [facility] [id number] [place] [address] Nov, UTI (lower urinary tract infection) 599.0 ; URI, acute 465.9 ; Insomnia 780.52 ; Anxiety 300.00 and Lower limb amputation, unspecified level V49.70 [place] [address] [address] 10 Oct, 2014 UTI (lower urinary tract infection) 599.0 ; URI, acute 465.9 ; Insomnia 780.52 ; Anxiety 300.00 and Lower limb amputation, unspecified level V49.70 [facility] [address] [facility] [id number] [address] 14 Aug, 2014 [facility] [address] [facility] [id number] [place] [address] Aug, [facility] [address] [facility] [id number] [address] Jul, [facility] [address] [place] [id number] [place] [address] Jul, [facility] [address] [address] Jun, [facility] [address] [place] [id number] [place] [address] Jun, [facility] [address] [place] [id number] [address] Mar, [facility] [address] [address] Mar, [facility] [address] [place] [id number] [address] Mar, [facility] [address] [facility] [id number], [place] [address] Mar, [facility] [address] [facility] [id number], [place] [address] Mar, [facility] [address] [place] [id number] [address] Feb, [facility] [address] [place] [id number] [address] Feb, [facility] [address] [place] [id number] [address] Feb, [facility] [place] [facility] [address] [id number] [place] [address] Feb, [facility] [place] [facility] [address] [id number] [place] [address] Feb, [facility] [place] [facility] [address] [id number] [place] [address] Feb, [facility] [place] [facility] [address] [id number] [place] [address] Feb, [facility] [place] [facility] [address] [id number] [place] [address] Feb, [facility] [place] [facility] [address] [id number] [place] [address] Feb, [facility] [place] [facility] [address] [id number] [place] [address] Feb, [facility] [place] [facility] [address] [id number] [place] [address] Feb, [facility] [place] [facility] [address] [id number] [place] [address] Feb, [facility] [place] [facility] [address] [id number] [place] [address] Feb, [facility] [place] [facility] [address] [id number], [place] [address] Feb, [facility] [place] [facility] [address] [id number] [address] Feb, [facility] [place] [facility] [address] [id number] [place] [address] Feb, [facility] [place] [facility] [address] [id number] [address] 28 Jan, 2014 [facility] [place] [facility] [address] [id number] [place] [address] 26 Jan, 2014 [facility] [place] [facility] [address] [id number] [place] [address] Jan, 2013 [facility] [place] [facility] [address] [id number] [place] [address] Jan, [facility] [place] [facility] [address] [id number] [facility] [place] [address] Jan, [facility] [place] [facility] [address] [id number] [place] [address] Nov, [facility] [place] [facility] [address] [id number] [place] [address] Nov, [facility] [place] [facility] [address] [id number] [place] [address] Nov, [facility] [place] [facility] [address] [id number] [place] [address] Nov, [facility] [place] [facility] [address] [id number] [place] [address] Nov, [facility] [place] [facility] [address] [id number] [place] [address] Nov, [facility] [place] [facility] [address] [id number] [place] [address] Oct, [facility] [place] [facility] [address] [id number] [place] [address] Oct, [facility] [place] [facility] [address] [id number] [place] [address] Oct, [facility] [place] [facility] [address] [id number] [place] [address] Oct, [facility] [place] [facility] [address] [id number] [place] [address] Oct, [facility] [place] [facility] [address] [id number] [place] [address] Oct, [facility] [place] [facility] [address] [id number] [place] [address] Oct, [facility] [place] [facility] [address] [id number] [place] [address] September, [facility] [place] [facility] [address] [id number] [place] [address] September, [facility] [place] [facility] [address] [id number] [place] [address] September, [facility] [place] [facility] [address] [id number] [place] [address] September, [facility] [place] [facility] [address] [id number] [place] [address] September, [facility] [place] [facility] [address] [id number] [place] [address] September, [facility] [place] [facility] [address] [id number] [place] [address] September, [facility] [place] [facility] [address] [id number] [place] [address] September, [facility] [place] [facility] [address] [id number] [place] [address] Aug, [facility] [place] [facility] [address] [id number] [place] [address] Aug, [facility] [place] [facility] [address] [id number] [place] [address] Aug, [facility] [place] [facility] [address] [id number] [place] [address] Aug, [facility] [place] [facility] [address] [id number] [place] [address] Jul, [facility] [place] [facility] [address] [id number] [place] [address] Jul, [facility] [place] [facility] [address] [id number] [place] [address] Jun, [facility] [place] [facility] [address] [id number] [place] [address] Jun, [facility] [place] [facility] [address] [id number] [place] [address] Jun, [facility] [place] [facility] [address] [id number] [place] [address] Jun, [facility] [place] [facility] [address] [id number] [place] [address] Jun, [facility] [place] [facility] [address] [id number] [place] [address] Jun, [facility] [place] [facility] [address] [id number] [place] [address] May, [facility] [place] [facility] [address] [id number] [place] [address] May, [facility] [place] [facility] [address] [id number] [place] [address] May, [facility] [place] [facility] [address] [id number] [place] [address] May, [facility] [place] [facility] [address] [id number] [place] [address] May, [facility] [place] [facility] [address] [id number] [place] [address] May, [facility] [place] [facility] [address] [id number] [place] [address] Feb, [facility] [place] [facility] [address] [id number] [address] Feb, [facility] [place] [facility] [address] [id number] [place] [address] Feb, [facility] [place] [facility] [address] [id number] [place] [address] Feb, [facility] [place] [facility] [address] [id number] [place] [address] Jan, [facility] [address] [id number] [place] [address] Jan, [facility] [place] [facility] [address] [id number] [place] [address] Jan, [facility] [place] [facility] [address] [id number] [place] [address] Dec, [facility] [place] [facility] [address] [id number] [place] [address] Nov, [facility] [address] [id number] [place] [address] Nov, [facility] [place] [facility] [address] [id number] [place] [address] Nov, [facility] [place] [facility] [address] [id number] [place] [address] Nov, [facility] [place] [facility] [address] [id number] [place] [address] Nov, [facility] [place] [facility] [address] [id number] [place] [address] Oct, [facility] [place] [facility] [address] [id number] [place] [address] September, [facility] [place] [facility] [address] [id number] [place] [address] September, [facility] [place] [facility] [address] [id number] [place] [address] Aug, [facility] [place] [facility] [address] [id number] [place] [address] Aug, [facility] [place] [facility] [address] [id number] [place] [address] Jul, [facility] [place] [facility] [address] [id number] [place] [address] Jul, [facility] [place] [facility] [address] [id number] [place] [address] 08 Jul, 2012 [facility] [address] [id number] [place] [address] Jul, [facility] [place] [facility] [address] [id number] [place] [address] Jun, [facility] [address] [id number] [place] [address] Jun, [facility] [place] [facility] [address] [id number] [place] [address] Jun, [facility] [address] [id number] [place] [address] May, [facility] [address] [id number] [place] [address] May, [facility] [address] [id number] [place] [address] May, [facility] [address] [id number] [place] [address] May, [facility] [address] [id number] [place] [address] Apr, [facility] [address] [id number] [place] [address] Apr, [facility] [address] [id number] [place] [address] Apr, [facility] [place] [facility] [address] [id number] [place] [address] 05 Apr, 2012 [facility] [place] [facility] [address] [id number] [place] [address] Apr, [facility] [place] [facility] [address] [address] [id number] [place] [address] Apr, [facility] [address] [id number] [place] [address] Mar, [facility] [place] [facility] [address] [id number] [place] [address] Mar, [facility] [place] [facility] [address] [id number] [place] [address] Mar, [facility] [place] [facility] [address] [id number] [place] [address] Mar, [facility] [place] [facility] [address] [id number] [place] [address] Mar, [facility] [place] [facility] [address] [id number] [place] [address] Mar, [facility] [place] [facility] [address] [id number] [place] [address] Feb, [facility] [place] [facility] [address] [id number] [place] [address] Feb, [facility] [place] [facility] [address] [id number] [place] [address] Feb, [facility] [place] [facility] [address] [id number] [place] [address] Feb, [facility] [place] [facility] [address] [id number] [place] [address] Jan, [facility] [place] [facility] [address] [id number] [place] [address] Jan, [facility] [place] [facility] [address] [id number] [place] [address] 24 Jan, 2012 [facility] [place] [facility] [address] [id number] [place] [address] 10 Jan, 2012 [facility] [place] [facility] [address] [id number] [place] [address] Dec, [facility] [place] [facility] [address] [id number] [place] [address] Dec, [facility] [place] [facility] [address] [id number] [place] [address] Nov, [facility] [place] [facility] [address] [id number] [place] [address] Oct, [facility] [place] [facility] [address] [id number] [place] [address] Oct, [facility] [place] [facility] [address] [id number] [place] [address] Oct, [facility] [place] [facility] [address] [id number] [place] [address] September, [facility] [place] [facility] [address] [id number] [place] [address] September, [facility] [place] [facility] [address] [id number] [place] [address] September, [facility] [place] [facility] [address] [id number] [place] [address] September, [facility] [place] [facility] [address] [id number] [place] [address] September, [facility] [place] [facility] [address] [id number] [place] [address] September, [facility] [place] [facility] [address] [id number] [place] [address] September, [facility] [place] [facility] [address] [id number] [place] [address] Jul, [facility] [place] [facility] [address] [id number] [place] [address] Jul, [facility] [place] [facility] [address] [id number] [place] [address] Jun, [facility] [place] [facility] [address] [id number] [place] [address] Jun, [facility] [place] [facility] [address] [id number] [place] [address] Jun, [facility] [place] [facility] [id number] [address] 10 May, 2011 [facility] [id number] [address] 29 Mar, 2011 [facility] [id number] [address] 18 Mar, 2011 [facility] [id number] [address] 14 Mar, 2011 [facility] [id number] [address] 31 Feb, 2011 [facility] [id number] [place] [address] Feb, [facility] [id number] [address] Dec, [facility] [id number] [address] 15 May, 2009 [facility] [id number] [address] Apr, [facility] [id number] [address] Apr, [facility] [id number] [address] Apr, [facility] [id number] [address] Apr, [facility] [id number] [address] Feb, [facility] [id number] [address] Oct, IMMUNIZATIONS No Known Immunizations SOCIAL HISTORY Never Assessed REASON FOR VISIT Lab (walk-in) PLAN OF CARE VITAL SIGNS MEDICATIONS Unknown Medications RESULTS No Results PROCEDURES Procedure Date Ordered Result Body Site PROTHROMBIN TIME November 24, 2016 URINALYSIS, AUTO, W/O SCOPE November 24, 2016 HEMOGLOBIN November 24, 2016 LAB NOT BILLED BY [facility] November 24, 2016 INSTRUCTIONS MEDICATIONS ADMINISTERED No Known Medications MEDICAL [...]
--- OUTSIDE RECORDS SUMMARY | 2018-12-05 12:07 | XMS REPORT ---
Author Author ERIK SAMAYOA [facility] Address [address] [place] [address] Care Team Providers Care Activity Director Name Role Phone ERIK SAMAYOA Unavailable PROBLEMS Type Condition ICD9-CM Code [id number] Code Onset Dates Condition Status SNOMED Code Problem Chronic fatigue, unspecified R53.82 Active 121659957 Problem PVD (peripheral vascular disease) I73.9 Active 152797221 Problem Anticoagulant long-term use Z79.01 Active 643320656 Problem Major depressive disorder, single episode, unspecified F32.9 Active 82870235 Problem Amput leg, unil NOS-comp S88.919A Active 72179380 Problem Mood disorder F39 Active 28714003 ALLERGIES Unknown Allergies SOCIAL HISTORY No smoking Hx information available PLAN OF CARE VITAL SIGNS MEDICATIONS Unknown Medications RESULTS Name Result Date Reference Range INR (IN HOUSE) 2016-04-22 INR 2.2 1.10 - 3.30 PREVIOUS INR 7.3 CURRENT COUMADIN DOSE No Coumadin NEW COUMADIN DOSE Lot # [id number] Exp date 04/2016 PROCEDURES Procedure Date Ordered Related Diagnosis Body Site PROTHROMBIN TIME Apr 22, 2016 IMMUNIZATIONS No Known Immunizations
--- OUTSIDE RECORDS SUMMARY | 2018-12-05 12:07 | XMS REPORT ---
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 Name Role Phone ERIK SAMAYOA Unavailable PROBLEMS Type Condition ICD9-CM Code QHU46-SS Code Onset Dates Condition Status SNOMED Code Problem Acute cystitis with hematuria N30.01 Active 53272555 Problem Major depressive disorder, single episode, unspecified F32.9 Active 65919069 Problem Congestive heart failure, unspecified congestive heart failure chronicity, unspecified congestive heart failure type I50.9 Active 29829478 Problem Chronic fatigue, unspecified R53.82 Active 963674754 Problem Mood disorder F39 Active 78467468 Problem Anticoagulant long-term use Z79.01 Active 541886789 Problem PVD (peripheral vascular disease) I73.9 Active 311561374 Problem Amput leg, unil NOS-comp S88.919A Active 97146275 ALLERGIES No Information ENCOUNTERS Encounter Location Date Diagnosis [place] [address] [address] Aug, [place] [address] [address] Jul, Vitamin B 12 deficiency E53.8 [place] [address] [address] Jul, Anticoagulant long-term use Z79.01 [place] [address] [address] Jun, Chronic fatigue, unspecified R53.82 [place] [address] [address] Jun, Anticoagulant long-term use Z79.01 [place] [address] [address] May, Flu-like symptoms R68.89 and Influenza A J10.1 [place] [address] [address] [place] [id number] [place] [address] May, [place] [address] [place] [id number] [place] [address] May, Chronic fatigue, unspecified R53.82 [place] [address] [place] [id number] [place] [address] May, Anticoagulant long-term use Z79.01 [place] [address] [place] [id number] [place] [address] Apr, Medicare welcome exam Z00.00 ; Anticoagulant long-term use Z79.01 ; Medicare annual wellness visit, initial Z00.00 ; Medicare annual wellness visit, subsequent Z00.00 and Chronic fatigue, unspecified R53.82 [place] [address] [place] [id number] [place] [address] Mar, Chronic fatigue, unspecified R53.82 [place] [address] [place] [id number] [place] [address] Mar, Anticoagulant long-term use Z79.01 [place] [address] [place] [id number] [place] [address] Mar, Anticoagulant long-term use Z79.01 and Hematuria R31.9 [place] [address] [place] [id number] [place] [address] Mar, Hematuria R31.9 [place] [address] [place] [id number] [place] [address] Feb, Anticoagulant long-term use Z79.01 [place] [address] [place] [id number] [place] [address] Feb, Anticoagulant long-term use Z79.01 [place] [address] [place] [id number] [place] [address] Feb, Anticoagulant long-term use Z79.01 [facility] [address] [address] Feb, Chronic fatigue, unspecified R53.82 [place] [address] [place] [id number] [place] [address] Feb, Anticoagulant long-term use Z79.01 [place] [address] [place] [id number] [place] [address] Feb, Congestive heart failure, unspecified congestive heart failure chronicity, unspecified congestive heart failure type I50.9 [place] [address] [place] [id number] [place] [address] Feb, Congestive heart failure, unspecified congestive heart failure chronicity, unspecified congestive heart failure type I50.9 [place] [address] [place] [id number] [place] [address] Feb, [place] [address] [place] [id number] [place] [address] Jan, Anticoagulant long-term use Z79.01 [place] [address] [place] [id number] [place] [address] Jan, [place] [address] [place] [id number] [place] [address] Jan, Anticoagulant long-term use Z79.01 and Hematuria R31.9 [place] [address] [place] [id number] [place] [address] Jan, Anticoagulant long-term use Z79.01 [place] [address] [place] [id number] [place] [address] Jan, Chronic fatigue, unspecified R53.82 [place] [address] [place] [id number] [place] [address] Jan, Anticoagulant long-term use Z79.01 [place] [address] [place] [id number] [place] [address] Dec, Chronic fatigue, unspecified R53.82 [facility] [address] [place] [address] Dec, [facility] [address] [place] [id number] [place] [address] Dec, Chronic fatigue, unspecified R53.82 and Encounter for therapeutic drug level monitoring Z51.81 [facility] [address] [place] [id number] [place] [address] Nov, Encounter for therapeutic drug level monitoring Z51.81 [facility] [address] [place] [id number] [place] [address] Nov, Hematuria R31.9 [facility] [address] [place] [id number] [place] [address] Nov, Hematuria R31.9 ; Anticoagulant long-term use Z79.01 and PVD (peripheral vascular disease) I73.9 [facility] [address] [place] [id number] [place] [address] Nov, Anticoagulant long-term use Z79.01 [facility] [address] [place] [id number] [place] [address] Nov, Anticoagulant long-term use Z79.01 [facility] [address] [place] [id number] [place] [address] Nov, [facility] [address] [place] [id number] [place] [address] Nov, Hematuria R31.9 and Acute cystitis with hematuria N30.01 [facility] [address] [place] [id number] [place] [id number] Oct, [facility] [address] [place] [id number] [place] [address] Oct, [facility] [address] [place] [id number] [place] [address] Oct, Hematuria R31.9 [place] [address] [place] [id number] [place] [address] Oct, Hematuria R31.9 [place] [address] [address] Oct, Anticoagulant long-term use Z79.01 [place] [address] [address] Oct, Anticoagulant long-term use Z79.01 [place] [address] [address] Oct, [place] [address] [address] September, PVD (peripheral vascular disease) I73.9 ; Amput leg, unil NOS-comp S88.919A ; Acute cystitis without hematuria N30.00 ; Anticoagulant long-term use Z79.01 and Hypokalemia E87.6 [place] [address] [address] Aug, Anticoagulant long-term use Z79.01 and Bronchitis J40 [place] [address] [address] Jul, [place] [address] [address] Jul, Anticoagulant long-term use Z79.01 and Mood disorder F39 [place] [address] [place] [id number] [place] [address] Jul, [place] [address] [address] May, [place] [address] [address] May, Hypokalemia E87.6 [place] [address] [address] May, Mood disorder F39 [place] [address] [place] [id number] [place] [address] May, Anticoagulant long-term use Z79.01 [facility] [address] [place] [id number] [place] [address] Apr, Anticoagulant long-term use Z79.01 [facility] [address] [place] [id number] [place] [address] Apr, Anticoagulant long-term use Z79.01 [facility] [address] [place] [id number] [place] [address] Apr, [facility] [address] [address] Apr, Anticoagulant long-term use Z79.01 [facility] [address] [place] [id number] [place] [address] Apr, Anticoagulant long-term use Z79.01 [facility] [address] [place] [id number] [place] [address] Apr, Anticoagulant long-term use Z79.01 [facility] [address] [place] [id number] [place] [address] Mar, [facility] [address] [place] [id number] [place] [address] Mar, [facility] [address] [place] [id number] [place] [address] Mar, Anticoagulant long-term use Z79.01 [facility] [address] [place] [id number] [place] [address] Feb, [facility] [address] [address] Feb, [facility] [address] [place] [id number] [place] [address] Feb, Anticoagulant long-term use Z79.01 [facility] [address] [place] [address] Feb, Anticoagulant long-term use Z79.01 [facility] [address] [place] [id number] [place] [address] Jan, [facility] [address] [address] Jan, Anticoagulant long-term use Z79.01 [facility] [address] [address] Jan, Anticoagulant long-term use Z79.01 [facility] [address] [place] [id number] [place] [address] Dec, Anticoagulant long-term use Z79.01 [facility] [address] [place] [id number] [place] [address] Dec, Anticoagulant long-term use Z79.01 [facility] [address] [address] Dec, Anticoagulant long-term use Z79.01 and Mood disorder F39 [facility] [address] [place] [id number] [place] [address] Dec, [facility] [address] [place] [id number] [place] [address] Nov, [facility] [address] [place] [id number] [place] [address] Nov, Anticoagulant long-term use Z79.01 [facility] [address] [place] [id number] [place] [address] Nov, Anticoagulant long-term use Z79.01 [facility] [address] [address] September, Anticoagulant long-term use Z79.01 [facility] [address] [place] [id number] [place] [address] Jul, Anticoagulant long-term use Z79.01 [facility] [address] [place] [id number] [place] [address] May, Anticoagulant long-term use Z79.01 [facility] [address] [place] [id number] [place] [address] May, Anticoagulant long-term use Z79.01 [facility] [address] [place] [id number] [place] [address] May, Anticoagulant long-term use Z79.01 [place] [address] [place] [id number] [place] [address] May, Anticoagulant long-term use Z79.01 [place] [address] [address] May, [place] [address] [place] [id number] [place] [address] May, Congestive heart failure, unspecified congestive heart failure chronicity, unspecified congestive heart failure type I50.9 and Pulmonary congestion R09.89 [place] [address] [place] [id number] [place] [address] Apr, Cough R05 ; Congestive heart failure, unspecified congestive heart failure chronicity, unspecified congestive heart failure type I50.9 and Pulmonary congestion R09.89 [place] [address] [place] [id number] [place] [address] Mar, Hematuria R31.9 [place] [address] [place] [id number] [place] [address] Mar, [place] [address] [place] [id number] [place] [address] Mar, Anticoagulant long-term use Z79.01 [place] [address] [place] [id number] [place] [address] Mar, [place] [address] [place] [id number] [place] [address] Mar, Hematuria R31.9 and Infective urethritis N34.2 [facility] [address] [address] Mar, Anticoagulant long-term use Z79.01 [facility] [address] [place] [address] Mar, Anticoagulant long-term use Z79.01 [facility] [address] [place] [address] Mar, [facility] [address] [place] [id number] [place] [address] Mar, Anticoagulant long-term use Z79.01 [facility] [address] [place] [id number] [place] [address] Feb, Peristomal skin breakdown L98.499 [facility] [address] [place] [id number] [place] [address] Feb, [facility] [address] [place] [id number] [place] [address] Feb, UTI (urinary tract infection) N39.0 [facility] [address] [place] [address] Jan, [facility] [address] [place] [address] Dec, High risk medication use V58.69 [place] [address] [place] [address] Nov, High risk medication use V58.69 [place] [address] [place] [address] Nov, [facility] [address] [place] [address] Nov, UTI (lower urinary tract infection) 599.0 ; URI, acute 465.9 ; Insomnia 780.52 ; Anxiety 300.00 and Lower limb amputation, unspecified level V49.70 [place] [address] [address] 10 Oct, 2014 UTI (lower urinary tract infection) 599.0 ; URI, acute 465.9 ; Insomnia 780.52 ; Anxiety 300.00 and Lower limb amputation, unspecified level V49.70 [facility] [address] [facility] [id number] [address] 14 Aug, 2014 [facility] [address] [facility] [id number] [place] [address] Aug, [facility] [address] [facility] [id number] [address] Jul, [facility] [address] [place] [id number] [place] [address] Jul, [facility] [address], [place] [address] Jun, [facility] [address] [place] [id number] [place] [address] Jun, [facility] [address] [place] [id number] [address] Mar, [facility] [address], [place] [address] Mar, [facility] [address] [place] [id number] [address] Mar, [facility] [address] [facility] [id number], [place] [address] Mar, [facility] [address] [facility] [id number], [place] [address] Mar, [facility] [address] [place] [id number] [address] Feb, [facility] [address] [place] [id number] [address] Feb, [facility] [address] [place] [id number] [address] Feb, [facility] [place] [facility] [address] [id number] [place] [address] Feb, [facility] [place] [facility] [address] [id number] [place] [address] Feb, [facility] [place] [facility] [address] [id number] [place] [address] Feb, [facility] [place] [facility] [address] [id number] [place] [address] Feb, [facility] [place] [facility] [address] [id number] [place] [address] Feb, [facility] [place] [facility] [address] [id number] [place] [address] Feb, [facility] [place] [facility] [address] [id number] [place] [address] Feb, [facility] [place] [facility] [address] [id number] [place] [address] Feb, [facility] [place] [facility] [address] [id number] [place] [address] Feb, [facility] [place] [facility] [address] [id number] [place] [address] Feb, [facility] [place] [facility] [address] [id number], [place] [address] Feb, [facility] [place] [facility] [address] [id number], [place] [address] Feb, [facility] [place] [facility] [address] [id number] [place] [address] Feb, [facility] [place] [facility] [address] [id number], [place] [address] 28 Jan, 2014 [facility] [place] [facility] [address] [id number] [place] [address] 26 Jan, 2014 [facility] [place] [facility] [address] [id number] [place] [address] Jan, 2013 [facility] [place] [facility] [address] [id number] [place] [address] Jan, [facility] [place] [facility] [address] [id number] [facility] [place] [address] Jan, [facility] [place] [facility] [address] [id number] [place] [address] Nov, [facility] [place] [facility] [address] [id number] [place] [address] Nov, [facility] [place] [facility] [address] [id number] [place] [address] Nov, [facility] [place] [facility] [address] [id number] [place] [address] Nov, [facility] [place] [facility] [address] [id number] [place] [address] Nov, [facility] [place] [facility] [address] [id number] [place] [address] Nov, [facility] [place] [facility] [address] [id number] [place] [address] Oct, [facility] [place] [facility] [address] [id number] [place] [address] Oct, [facility] [place] [facility] [address] [id number] [place] [address] Oct, [facility] [place] [facility] [address] [id number] [place] [address] Oct, [facility] [place] [facility] [address] [id number] [place] [address] Oct, [facility] [place] [facility] [address] [id number] [place] [address] Oct, [facility] [place] [facility] [address] [id number] [place] [address] Oct, [facility] [place] [facility] [address] [id number] [place] [address] September, [facility] [place] [facility] [address] [id number] [place] [address] September, [facility] [place] [facility] [address] [id number] [place] [address] September, [facility] [place] [facility] [address] [id number] [place] [address] September, [facility] [place] [facility] [address] [id number] [place] [address] September, [facility] [place] [facility] [address] [id number] [place] [address] September, [facility] [place] [facility] [address] [id number] [place] [address] September, [facility] [place] [facility] [address] [id number] [place] [address] September, [facility] [place] [facility] [address] [id number] [place] [address] Aug, [facility] [place] [facility] [address] [id number] [place] [address] Aug, [facility] [place] [facility] [address] [id number] [place] [address] Aug, [facility] [place] [facility] [address] [id number] [place] [address] Aug, [facility] [place] [facility] [address] [id number] [place] [address] Jul, [facility] [place] [facility] [address] [id number] [place] [address] Jul, [facility] [place] [facility] [address] [id number] [place] [address] Jun, [facility] [place] [facility] [address] [id number] [place] [address] Jun, [facility] [place] [facility] [address] [id number] [place] [address] Jun, [facility] [place] [facility] [address] [id number] [place] [address] Jun, [facility] [place] [facility] [address] [id number] [place] [address] Jun, [facility] [place] [facility] [address] [id number] [place] [address] Jun, [facility] [place] [facility] [address] [id number] [place] [address] May, [facility] [place] [facility] [address] [id number] [place] [address] May, [facility] [place] [facility] [address] [id number] [place] [address] May, [facility] [place] [facility] [address] [id number] [place] [address] May, [facility] [place] [facility] [address] [id number] [place] [address] May, [facility] [place] [facility] [address] [id number] [place] [address] May, [facility] [place] [facility] [address] [id number] [place] [address] Feb, [facility] [place] [facility] [address] [id number] [address] Feb, [facility] [place] [facility] [address] [id number] [place] [address] Feb, [facility] [place] [facility] [address] [id number] [place] [address] Feb, [facility] [place] [facility] [address] [id number] [place] [address] Jan, [facility] [address] [id number] [place] [address] Jan, [facility] [place] [facility] [address] [id number] [place] [address] Jan, [facility] [place] [facility] [address] [id number] [place] [address] Dec, [facility] [place] [facility] [address] [id number] [place] [address] Nov, [facility] [address] [id number] [place] [address] Nov, [facility] [place] [facility] [address] [id number] [place] [address] Nov, [facility] [place] [facility] [address] [id number] [place] [address] Nov, [facility] [place] [facility] [address] [id number] [place] [address] Nov, [facility] [place] [facility] [address] [id number] [place] [address] Oct, [facility] [place] [facility] [address] [id number] [place] [address] September, [facility] [place] [facility] [address] [id number] [place] [address] September, [facility] [place] [facility] [address] [id number] [place] [address] Aug, [facility] [place] [facility] [address] [id number] [place] [address] Aug, [facility] [place] [facility] [address] [id number] [place] [address] Jul, [facility] [place] [facility] [address] [id number] [place] [address] Jul, [facility] [place] [facility] [address] [id number] [place] [address] 08 Jul, 2012 [facility] [address] [id number] [place] [address] Jul, [facility] [place] [facility] [address] [id number] [place] [address] Jun, [facility] [address] [id number] [place] [address] Jun, [facility] [place] [facility] [address] [id number] [place] [address] Jun, [facility] [address] [id number] [place] [address] May, [facility] [address] [id number] [place] [address] May, [facility] [address] [id number] [place] [address] May, [facility] [address] [id number] [place] [address] May, [facility] [address] [id number] [place] [address] Apr, [facility] [address] [id number] [place] [address] Apr, [facility] [address] [id number] [place] [address] Apr, [facility] [place] [facility] [address] [id number] [place] [address] 05 Apr, 2012 [facility] [place] [facility] [address] [id number] [place] [address] Apr, [facility] [place] [facility] [address] [id number] [place] [address] Apr, [facility] [address] [id number] [place] [address] Mar, [facility] [place] [facility] [address] [id number] [place] [address] Mar, [facility] [place] [facility] [address] [id number] [place] [address] Mar, [facility] [place] [facility] [address] [id number] [place] [address] Mar, [facility] [place] [facility] [address] [id number] [place] [address] Mar, [facility] [place] [facility] [address] [id number] [place] [address] Mar, [facility] [place] [facility] [address] [id number] [place] [address] Feb, [facility] [place] [facility] [address] [id number] [place] [address] Feb, [facility] [place] [facility] [address] [id number] [place] [address] Feb, [facility] [place] [facility] [address] [id number] [place] [address] Feb, [facility] [place] [facility] [address] [id number] [place] [address] Jan, [facility] [place] [facility] [address] [id number] [place] [address] Jan, [facility] [place] [facility] [address] [id number] [place] [address] 24 Jan, 2012 [facility] [place] [facility] [address] [id number] [place] [address] 10 Jan, 2012 [facility] [place] [facility] [address] [id number] [place] [address] Dec, [facility] [place] [facility] [address] [id number] [place] [address] Dec, [facility] [place] [facility] [address] [id number] [place] [address] Nov, [facility] [place] [facility] [address] [id number] [place] [address] Oct, [facility] [place] [facility] [address] [id number] [place] [address] Oct, [facility] [place] [facility] [address] [id number] [place] [address] Oct, [facility] [place] [facility] [address] [id number] [place] [address] September, [facility] [place] [facility] [address] [id number] [place] [address] September, [facility] [place] [facility] [address] [id number] [place] [address] September, [facility] [place] [facility] [address] [id number] [place] [address] September, [facility] [place] [facility] [address] [id number] [place] [address] September, [facility] [place] [facility] [address] [id number] [place] [address] September, [facility] [place] [facility] [address] [id number] [place] [address] September, [facility] [place] [facility] [address] [id number] [place] [address] Jul, [facility] [place] [facility] [address] [id number] [place] [address] Jul, [facility] [place] [facility] [address] [id number] [place] [address] Jun, [facility] [place] [facility] [address] [id number] [place] [address] Jun, [facility] [place] [facility] [address] [id number] [place] [address] Jun, [facility] [place] [facility] [address] [address] 10 May, 2011 [facility] [address] [place] [address] 29 Mar, 2011 [facility] [address] [place] [address] Mar, [facility] [address] [place] [address] 14 Mar, 2011 [facility] [address] [facility] [id number] [address] Feb, [facility] [id number] [place] [address] Feb, [facility] [address], [place] [address] Dec, [facility] [id number] [place] [address] May, [facility] [address] [place] [address] Apr, [facility] [id number], [place] [address] Apr, [facility] [address] [place] [address] Apr, [facility] [address] [place] [address] Apr, [facility] [id number] [address] Feb, [facility] [address] [place] [address] Oct, IMMUNIZATIONS No Known Immunizations SOCIAL HISTORY [...]
--- OUTSIDE RECORDS SUMMARY | 2018-12-05 12:08 | XMS REPORT ---
Author Author ERIK SAMAYOA Organization [facility] Address [address] [place] [address] Care Team Providers Care Body Masker Name Role Phone ERIK SAMAYOA Unavailable PROBLEMS Type Condition ICD9-CM Code [id number] Code Onset Dates Condition Status SNOMED Code Problem Acute cystitis with hematuria N30.01 Active 03752989 Problem Major depressive disorder, single episode, unspecified F32.9 Active 86730131 Problem Congestive heart failure, unspecified congestive heart failure chronicity, unspecified congestive heart failure type I50.9 Active 32581375 Problem Chronic fatigue, unspecified R53.82 Active 169531138 Problem Mood disorder F39 Active 22152581 Problem Anticoagulant long-term use Z79.01 Active 795141306 Problem PVD (peripheral vascular disease) I73.9 Active 506203272 Problem Amput leg, unil NOS-comp S88.919A Active 37790304 ALLERGIES No Information ENCOUNTERS Encounter Location Date Diagnosis [place] [address] [address] Aug, [place] [address] [address] Jul, Vitamin B 12 deficiency E53.8 [place] [address] [address] Jul, Anticoagulant long-term use Z79.01 [place] [address] [address] Jun, Chronic fatigue, unspecified R53.82 [place] [address] [address] Jun, Anticoagulant long-term use Z79.01 [place] [address] [address] May, Flu-like symptoms R68.89 and Influenza A J10.1 [place] [address] [place] [id number] [place] [address] May, [place] [address] [place] [id number] [place] [address] May, Chronic fatigue, unspecified R53.82 [place] [address] [place] [id number] [place] [address] May, Anticoagulant long-term use Z79.01 [place] [address] [place] [id number] [place] [address] Apr, Medicare welcome exam Z00.00 ; Anticoagulant long-term use Z79.01 ; Medicare annual wellness visit, initial Z00.00 ; Medicare annual wellness visit, subsequent Z00.00 and Chronic fatigue, unspecified R53.82 [place] [address] [place] [id number] [place] [address] Mar, Chronic fatigue, unspecified R53.82 [place] [address] [place] [id number] [place] [address] Mar, Anticoagulant long-term use Z79.01 [place] [address] [place] [id number] [place] [address] Mar, Anticoagulant long-term use Z79.01 and Hematuria R31.9 [place] [address] [place] [id number] [place] [address] Mar, Hematuria R31.9 [place] [address] [place] [id number] [place] [address] Feb, Anticoagulant long-term use Z79.01 [place] [address] [place] [id number] [place] [address] Feb, Anticoagulant long-term use Z79.01 [place] [address] [place] [id number] [place] [address] Feb, Anticoagulant long-term use Z79.01 [facility] [address] [address] Feb, Chronic fatigue, unspecified R53.82 [place] [address] [place] [id number] [place] [address] Feb, Anticoagulant long-term use Z79.01 [place] [address] [place] [id number] [place] [address] Feb, Congestive heart failure, unspecified congestive heart failure chronicity, unspecified congestive heart failure type I50.9 [place] [address] [place] [id number] [place] [address] Feb, Congestive heart failure, unspecified congestive heart failure chronicity, unspecified congestive heart failure type I50.9 [place] [address] [place] [id number] [place] [address] Feb, [place] [address] [place] [id number] [place] [address] Jan, Anticoagulant long-term use Z79.01 [place] [address] [place] [id number] [place] [address] Jan, [place] [address] [place] [id number] [place] [address] Jan, Anticoagulant long-term use Z79.01 and Hematuria R31.9 [place] [address] [place] [id number] [place] [address] Jan, Anticoagulant long-term use Z79.01 [place] [address] [place] [id number] [place] [address] Jan, Chronic fatigue, unspecified R53.82 [place] [address] [place] [id number] [place] [address] Jan, Anticoagulant long-term use Z79.01 [place] [address] [place] [id number] [place] [address] Dec, Chronic fatigue, unspecified R53.82 [facility] [id number] [place] [address] Dec, [facility] [address] [place] [id number] [place] [address] Dec, Chronic fatigue, unspecified R53.82 and Encounter for therapeutic drug level monitoring Z51.81 [facility] [address] [place] [id number] [place] [address] Nov, Encounter for therapeutic drug level monitoring Z51.81 [facility] [address] [place] [id number] [place] [address] Nov, Hematuria R31.9 [facility] [address] [place] [id number] [place] [address] Nov, Hematuria R31.9 ; Anticoagulant long-term use Z79.01 and PVD (peripheral vascular disease) I73.9 [facility] [address] [place] [id number] [place] [address] Nov, Anticoagulant long-term use Z79.01 [facility] [address] [place] [id number] [place] [address] Nov, Anticoagulant long-term use Z79.01 [facility] [address] [place] [id number] [place] [address] Nov, [facility] [address] [place] [id number] [place] [address] Nov, Hematuria R31.9 and Acute cystitis with hematuria N30.01 [facility] [address] [place] [id number] [place] [id number] Oct, [facility] [address] [place] [id number] [place] [address] Oct, [facility] [address] [place] [id number] [place] [address] Oct, Hematuria R31.9 [place] [address] [place] [id number] [place] [address] Oct, Hematuria R31.9 [place] [address] [address] Oct, Anticoagulant long-term use Z79.01 [place] [address] [address] Oct, Anticoagulant long-term use Z79.01 [place] [address] [address] Oct, [place] [address] [address] September, PVD (peripheral vascular disease) I73.9 ; Amput leg, unil NOS-comp S88.919A ; Acute cystitis without hematuria N30.00 ; Anticoagulant long-term use Z79.01 and Hypokalemia E87.6 [place] [address] [address] Aug, Anticoagulant long-term use Z79.01 and Bronchitis J40 [place] [address] [address] Jul, [place] [address] [address] Jul, Anticoagulant long-term use Z79.01 and Mood disorder F39 [place] [address] [place] [id number] [place] [address] Jul, [place] [address] [address] May, [place] [address] [address] May, Hypokalemia E87.6 [place] [address] [address] May, Mood disorder F39 [place] [id number] [place] [id number] [place] [address] May, Anticoagulant long-term use Z79.01 [facility] [address] [place] [id number] [place] [address] Apr, Anticoagulant long-term use Z79.01 [facility] [address] [place] [id number] [place] [address] Apr, Anticoagulant long-term use Z79.01 [facility] [address] [place] [id number] [place] [address] Apr, [facility] [address] [address] Apr, Anticoagulant long-term use Z79.01 [facility] [address] [place] [id number] [place] [address] Apr, Anticoagulant long-term use Z79.01 [facility] [address] [place] [id number] [place] [address] Apr, Anticoagulant long-term use Z79.01 [facility] [address] [place] [id number] [place] [address] Mar, [facility] [address] [place] [id number] [place] [address] Mar, [facility] [address] [place] [id number] [place] [address] Mar, Anticoagulant long-term use Z79.01 [facility] [address] [place] [id number] [place] [address] Feb, [facility] [address] [address] Feb, [facility] [address] [place] [id number] [place] [address] Feb, Anticoagulant long-term use Z79.01 [facility] [address] [place] [address] Feb, Anticoagulant long-term use Z79.01 [facility] [address] [place] [id number] [place] [address] Jan, [facility] [address] [address] Jan, Anticoagulant long-term use Z79.01 [facility] [address] [address] Jan, Anticoagulant long-term use Z79.01 [facility] [address] [place] [id number] [place] [address] Dec, Anticoagulant long-term use Z79.01 [facility] [address] [place] [id number] [place] [address] Dec, Anticoagulant long-term use Z79.01 [facility] [address] [address] Dec, Anticoagulant long-term use Z79.01 and Mood disorder F39 [facility] [address] [place] [id number] [place] [address] Dec, [facility] [address] [place] [id number] [place] [address] Nov, [facility] [address] [place] [id number] [place] [address] Nov, Anticoagulant long-term use Z79.01 [facility] [address] [place] [id number] [place] [address] Nov, Anticoagulant long-term use Z79.01 [facility] [address] [address] September, Anticoagulant long-term use Z79.01 [facility] [address] [place] [id number] [place] [address] Jul, Anticoagulant long-term use Z79.01 [facility] [address] [place] [id number] [place] [address] May, Anticoagulant long-term use Z79.01 [facility] [address] [place] [id number] [place] [address] May, Anticoagulant long-term use Z79.01 [facility] [address] [place] [id number] [place] [address] May, Anticoagulant long-term use Z79.01 [place] [address] [place] [id number] [place] [address] May, Anticoagulant long-term use Z79.01 [place] [address] [address] May, [place] [address] [place] [id number] [place] [address] May, Congestive heart failure, unspecified congestive heart failure chronicity, unspecified congestive heart failure type I50.9 and Pulmonary congestion R09.89 [place] [address] [place] [id number] [place] [address] Apr, Cough R05 ; Congestive heart failure, unspecified congestive heart failure chronicity, unspecified congestive heart failure type I50.9 and Pulmonary congestion R09.89 [place] [address] [place] [id number] [place] [address] Mar, Hematuria R31.9 [place] [address] [place] [id number] [place] [address] Mar, [place] [address] [place] [id number] [place] [address] Mar, Anticoagulant long-term use Z79.01 [place] [address] [place] [id number] [place] [address] Mar, [place] [address] [place] [id number] [place] [address] Mar, Hematuria R31.9 and Infective urethritis N34.2 [facility] [address] [address] Mar, Anticoagulant long-term use Z79.01 [facility] [address] [place] [address] Mar, Anticoagulant long-term use Z79.01 [facility] [address] [place] [address] Mar, [facility] [address] [place] [id number] [place] [address] Mar, Anticoagulant long-term use Z79.01 [facility] [address] [place] [id number] [place] [address] Feb, Peristomal skin breakdown L98.499 [facility] [address] [place] [id number] [place] [address] Feb, [facility] [address] [place] [id number] [place] [address] Feb, UTI (urinary tract infection) N39.0 [facility] [address] [place] [address] Jan, [facility] [address] [place] [address] Dec, High risk medication use V58.69 [place] [id number] [place] [address] Nov, High risk medication use V58.69 [place] [address] [place] [address] Nov, [facility] [address] [place] [address] Nov, UTI (lower urinary tract infection) 599.0 ; URI, acute 465.9 ; Insomnia 780.52 ; Anxiety 300.00 and Lower limb amputation, unspecified level V49.70 [place] [address], [place] [address] 10 Oct, 2014 UTI (lower urinary tract infection) 599.0 ; URI, acute 465.9 ; Insomnia 780.52 ; Anxiety 300.00 and Lower limb amputation, unspecified level V49.70 [facility] [address] [facility] [id number], [place] [address] 14 Aug, 2014 [facility] [address] [facility] [id number] [place] [address] Aug, [facility] [address] [facility] [id number], [place] [address] Jul, [facility] [address] [place] [id number] [place] [address] Jul, [facility] [address], [place] [address] Jun, [facility] [address] [place] [id number] [place] [address] Jun, [facility] [address] [place] [id number] [address] Mar, [facility] [address] [address] Mar, [facility] [address] [place] [id number] [address] Mar, [facility] [address] [facility] [id number], [place] [address] Mar, [facility] [address] [facility] [id number], [place] [address] Mar, [facility] [address] [place] [id number] [address] Feb, [facility] [address] [place] [id number] [address] Feb, [facility] [address] [place] [id number] [address] Feb, [facility] [place] [facility] [address] [id number] [place] [address] Feb, [facility] [place] [facility] [address] [id number] [place] [address] Feb, [facility] [place] [facility] [address] [id number] [place] [address] Feb, [facility] [place] [facility] [address] [id number] [place] [address] Feb, [facility] [place] [facility] [address] [id number] [place] [address] Feb, [facility] [place] [facility] [address] [id number] [place] [address] Feb, [facility] [place] [facility] [address] [id number] [place] [address] Feb, [facility] [place] [facility] [address] [id number] [place] [address] Feb, [facility] [place] [facility] [address] [id number] [place] [address] Feb, [facility] [place] [facility] [address] [id number] [place] [address] Feb, [facility] [place] [facility] [address] [id number], [place] [address] Feb, [facility] [place] [facility] [address] [id number], [place] [address] Feb, [facility] [place] [facility] [address] [id number] [place] [address] Feb, [facility] [place] [facility] [address] [id number], [place] [address] 28 Jan, 2014 [facility] [place] [facility] [address] [id number] [place] [address] 26 Jan, 2014 [facility] [place] [facility] [address] [id number] [place] [address] Jan, 2013 [facility] [place] [facility] [address] [id number] [place] [address] Jan, [facility] [place] [facility] [address] [id number] [facility] [place] [address] Jan, [facility] [place] [facility] [address] [id number] [place] [address] Nov, [facility] [place] [facility] [address] [id number] [place] [address] Nov, [facility] [place] [facility] [address] [id number] [place] [address] Nov, [facility] [place] [facility] [address] [id number] [place] [address] Nov, [facility] [place] [facility] [address] [id number] [place] [address] Nov, [facility] [place] [facility] [address] [id number] [place] [address] Nov, [facility] [place] [facility] [address] [id number] [place] [address] Oct, [facility] [place] [facility] [address] [id number] [place] [address] Oct, [facility] [place] [facility] [address] [id number] [place] [address] Oct, [facility] [place] [facility] [address] [id number] [place] [address] Oct, [facility] [place] [facility] [address] [id number] [place] [address] Oct, [facility] [place] [facility] [address] [id number] [place] [address] Oct, [facility] [place] [facility] [address] [id number] [place] [address] Oct, [facility] [place] [facility] [address] [id number] [place] [address] September, [facility] [place] [facility] [address] [id number] [place] [address] September, [facility] [place] [facility] [address] [id number] [place] [address] September, [facility] [place] [facility] [address] [id number] [place] [address] September, [facility] [place] [facility] [address] [id number] [place] [address] September, [facility] [place] [facility] [address] [id number] [place] [address] September, [facility] [place] [facility] [address] [id number] [place] [address] September, [facility] [place] [facility] [address] [id number] [place] [address] September, [facility] [place] [facility] [address] [id number] [place] [address] Aug, [facility] [place] [facility] [address] [id number] [place] [address] Aug, [facility] [place] [facility] [address] [id number] [place] [address] Aug, [facility] [place] [facility] [address] [id number] [place] [address] Aug, [facility] [place] [facility] [address] [id number] [place] [address] Jul, [facility] [place] [facility] [address] [id number] [place] [address] Jul, [facility] [place] [facility] [address] [id number] [place] [address] Jun, [facility] [place] [facility] [address] [id number] [place] [address] Jun, [facility] [place] [facility] [address] [id number] [place] [address] Jun, [facility] [place] [facility] [address] [id number] [place] [address] Jun, [facility] [place] [facility] [address] [id number] [place] [address] Jun, [facility] [place] [facility] [address] [id number] [place] [address] Jun, [facility] [place] [facility] [address] [id number] [place] [address] May, [facility] [place] [facility] [address] [id number] [place] [address] May, [facility] [place] [facility] [address] [id number] [place] [address] May, [facility] [place] [facility] [address] [id number] [place] [address] May, [facility] [place] [facility] [address] [id number] [place] [address] May, [facility] [place] [facility] [address] [id number] [place] [address] May, [facility] [place] [facility] [address] [id number] [place] [address] Feb, [facility] [place] [facility] [address] [id number], [place] [address] Feb, [facility] [place] [facility] [address] [id number] [place] [address] Feb, [facility] [place] [facility] [address] [id number] [place] [address] Feb, [facility] [place] [facility] [address] [id number] [place] [address] Jan, [facility] [address] [id number] [place] [address] Jan, [facility] [place] [facility] [address] [id number] [place] [address] Jan, [facility] [place] [facility] [address] [id number] [place] [address] Dec, [facility] [place] [facility] [address] [id number] [place] [address] Nov, [facility] [address] [id number] [place] [address] Nov, [facility] [place] [facility] [address] [id number] [place] [address] Nov, [facility] [place] [facility] [address] [id number] [place] [address] Nov, [facility] [place] [facility] [address] [id number] [place] [address] Nov, [facility] [place] [facility] [address] [id number] [place] [address] Oct, [facility] [place] [facility] [address] [id number] [place] [address] September, [facility] [place] [facility] [address] [id number] [place] [address] September, [facility] [place] [facility] [address] [id number] [place] [address] Aug, [facility] [place] [facility] [address] [id number] [place] [address] Aug, [facility] [place] [facility] [address] [id number] [place] [address] Jul, [facility] [place] [facility] [address] [id number] [place] [address] Jul, [facility] [place] [facility] [address] [id number] [place] [address] 08 Jul, 2012 [facility] [address] [id number] [place] [address] Jul, [facility] [place] [facility] [address] [id number] [place] [address] Jun, [facility] [address] [id number] [place] [address] Jun, [facility] [place] [facility] [address] [id number] [place] [address] Jun, [facility] [address] [id number] [place] [address] May, [facility] [address] [id number] [place] [address] May, [facility] [address] [id number] [place] [address] May, [facility] [address] [id number] [place] [address] May, [facility] [address] [id number] [place] [address] Apr, [facility] [address] [id number] [place] [address] Apr, [facility] [address] [id number] [place] [address] Apr, [facility] [place] [facility] [address] [id number] [place] [address] 05 Apr, 2012 [facility] [place] [facility] [address] [id number] [place] [address] Apr, [facility] [place] [facility] [address] [id number] [place] [address] Apr, [facility] [address] [id number] [place] [address] Mar, [facility] [place] [facility] [address] [id number] [place] [address] Mar, [facility] [place] [facility] [address] [id number] [place] [address] Mar, [facility] [place] [facility] [address] [id number] [place] [address] Mar, [facility] [place] [facility] [address] [id number] [place] [address] Mar, [facility] [place] [facility] [address] [id number] [place] [address] Mar, [facility] [place] [facility] [address] [id number] [place] [address] Feb, [facility] [place] [facility] [address] [id number] [place] [address] Feb, [facility] [place] [facility] [address] [id number] [place] [address] Feb, [facility] [place] [facility] [address] [id number] [place] [address] Feb, [facility] [place] [facility] [address] [id number] [place] [address] Jan, [facility] [place] [facility] [address] [id number] [place] [address] Jan, [facility] [place] [facility] [address] [id number] [place] [address] 24 Jan, 2012 [facility] [place] [facility] [address] [id number] [place] [address] 10 Jan, 2012 [facility] [place] [facility] [address] [id number] [place] [address] Dec, [facility] [place] [facility] [address] [id number] [place] [address] Dec, [facility] [place] [facility] [address] [id number] [place] [address] Nov, [facility] [place] [facility] [address] [id number] [place] [address] Oct, [facility] [place] [facility] [address] [id number] [place] [address] Oct, [facility] [place] [facility] [address] [id number] [place] [address] Oct, [facility] [place] [facility] [address] [id number] [place] [address] September, [facility] [place] [facility] [address] [id number] [place] [address] September, [facility] [place] [facility] [address] [id number] [place] [address] September, [facility] [place] [facility] [address] [id number] [place] [address] September, [facility] [place] [facility] [address] [id number] [place] [address] September, [facility] [place] [facility] [address] [id number] [place] [address] September, [facility] [place] [facility] [address] [id number] [place] [address] September, [facility] [place] [facility] [address] [id number] [place] [address] Jul, [facility] [place] [facility] [address] [id number] [place] [address] Jul, [facility] [place] [facility] [address] [id number] [place] [address] Jun, [facility] [place] [facility] [address] [id number] [place] [address] Jun, [facility] [place] [facility] [address] [id number] [place] [address] Jun, [facility] [place] [facility] [address] [id number] [address] 10 May, 2011 [facility] [address] [place] [address] 29 Mar, 2011 [facility] [address] [place] [address] Mar, [facility] [address] [place] [address] 14 Mar, 2011 [facility] [address] [place] [address] 31 Feb, 2011 [facility] [address] [address] Feb, [facility] [address] [address] Dec, [facility] [address] [place] [address] May, [facility] [address] [place] [address] Apr, [facility] [address] [place] [address] Apr, [facility] [id number] [address] Apr, [facility] [address] [id number] [address] Apr, [facility] [address] [id number] [address] Feb, [facility] [address] [id number] [address] Oct, IMMUNIZATIONS No Known Immunizations SOCIAL HISTORY Never Assessed REASON FOR VISIT Lab (walk-in) PLAN OF CARE VITAL SIGNS MEDICATIONS Unknown Medications RESULTS Name Result Date Reference Range CBC 2016-11-28 WBC 6.2 3.4-10.8 RBC 4.16 3.77-5.28 Hemoglobin 13.3 11.1-15.9 Hematocrit 41.1 34.0-46.6 MCV 99 79-97 MCH 32.0 26.6-33.0 MCHC 32.4 31.5-35.7 RDW 13.8 12.3-15.4 Platelets 311 150-379 Neutrophils 36 Lymphs 46 Monocytes 8 Eos 9 Basos 1 Immature Cells Neutrophils (Absolute) 2.2 1.4-7.0 Lymphs (Absolute) 2.9 0.7-3.1 Monocytes(Absolute) 0.5 0.1-0.9 Eos (Absolute) 0.5 0.0-0.4 Baso (Absolute) 0.0 0.0-0.2 Immature Granulocytes 0 Immature Grans (Abs) 0.0 0.0-0.1 NRBC Hematology Comments: INR (IN HOUSE) 2016-11-28 INR 1.2 1.10 - 3.30 PREVIOUS INR 3.9 CURRENT COUMADIN DOSE 1mg MTTSS/2mg WF NEW COUMADIN DOSE Lot # [id number] Exp date 05 Aug 2017 PROCEDURES Procedure Date Ordered Result Body Site VENIPUNCT, ROUTINE* November 28, 2016 LAB NOT BILLED BY [facility] November 28, 2016 PROTHROMBIN TIME November 28, 2016 INSTRUCTIONS MEDICATIONS ADMINISTERED No Known Medications [...]
--- OUTSIDE RECORDS SUMMARY | 2018-12-05 12:09 | XMS REPORT ---
Author Author ERIK SAMAYOA Organization [facility] Address [address] [place] [address] Care Team Providers Care Instrument Lens Grinder Name Role Phone ERIK SAMAYOA Unavailable PROBLEMS Type Condition ICD9-CM Code JSB65-XL Code Onset Dates Condition Status SNOMED Code Problem Major depressive disorder, single episode, unspecified F32.9 Active 14411806 Problem Anticoagulant long-term use Z79.01 Active 674378444 Problem Acute cystitis with hematuria N30.01 Active 70507222 Problem Vitamin B12 deficiency E53.8 Dec, Active 543920988 Problem Congestive heart failure, unspecified congestive heart failure chronicity, unspecified congestive heart failure type I50.9 Active 00279445 Problem Amput leg, unil NOS-comp S88.919A Active 79906730 Problem Mood disorder F39 Active 47797451 Problem Chronic fatigue, unspecified R53.82 Active 036821251 Problem PVD (peripheral vascular disease) I73.9 Active 023348121 ALLERGIES No Information ENCOUNTERS Encounter Location Date Diagnosis [place] [id number] [place] [address] Oct, [facility] [id number] [place] [address] September, Anticoagulant long-term use Z79.01 and Congestive heart failure, unspecified congestive heart failure chronicity, unspecified congestive heart failure type I50.9 [facility] [address] [address] September, Vitamin B12 deficiency E53.8 [facility] [address] [address] September, Anticoagulant long-term use Z79.01 [facility] [id number] [place] [address] September, Anticoagulant long-term use Z79.01 and Congestive heart failure, unspecified congestive heart failure chronicity, unspecified congestive heart failure type I50.9 [place] [address] [address] Aug, Chronic fatigue, unspecified R53.82 [place] [address] [address] Aug, Anticoagulant long-term use Z79.01 [place] [address] [address] Aug, Nausea R11.0 and Weakness R53.[address] [address] Aug, [facility] [address] [address] Aug, Hematuria R31.9 and Acute cystitis with hematuria N30.01 [place] [address] [address] Aug, [place] [address] [address] Jul, Vitamin B 12 deficiency E53.8 [place] [address] [address] Jul, Anticoagulant long-term use Z79.01 [place] [address] [address] Jun, Chronic fatigue, unspecified R53.82 [place] [address] [address] Jun, Anticoagulant long-term use Z79.01 [place] [address] [address] May, Flu-like symptoms R68.89 and Influenza A J10.1 [place] [address] [place] [address] May, [facility] [address] [place] [id number] [place] [address] May, Chronic fatigue, unspecified R53.82 [facility] [address] [id number] [place] [address] May, Anticoagulant long-term use Z79.01 [place] [address] [place] [id number] [place] [address] Apr, Medicare welcome exam Z00.00 ; Anticoagulant long-term use Z79.01 ; Medicare annual wellness visit, initial Z00.00 ; Medicare annual wellness visit, subsequent Z00.00 and Chronic fatigue, unspecified R53.82 [place] [address] [place] [id number] [place] [address] Mar, Chronic fatigue, unspecified R53.82 [place] [address] [place] [id number] [place] [address] Mar, Anticoagulant long-term use Z79.01 [place] [address] [place] [id number] [place] [address] Mar, Anticoagulant long-term use Z79.01 and Hematuria R31.9 [place] [address] [place] [id number] [place] [address] Mar, Hematuria R31.9 [place] [address] [place] [id number] [place] [address] Feb, Anticoagulant long-term use Z79.01 [place] [address] [place] [id number] [place] [address] Feb, Anticoagulant long-term use Z79.01 [place] [address] [place] [id number] [place] [address] Feb, Anticoagulant long-term use Z79.01 [place] [address] [place] [id number] [place] [address] Feb, Chronic fatigue, unspecified R53.82 [facility] [address], [place] [address] Feb, Anticoagulant long-term use Z79.01 [facility] [id number] [place] [address] Feb, Congestive heart failure, unspecified congestive heart failure chronicity, unspecified congestive heart failure type I50.9 [facility] [address] [place] [id number] [place] [address] Feb, Congestive heart failure, unspecified congestive heart failure chronicity, unspecified congestive heart failure type I50.9 [facility] [address] [place] [id number] [place] [address] Feb, [facility] [address] [place] [id number] [place] [address] Jan, Anticoagulant long-term use Z79.01 [facility] [address] [place] [id number] [place] [address] Jan, [facility] [address] [place] [id number] [place] [address] Jan, Anticoagulant long-term use Z79.01 and Hematuria R31.9 [facility] [id number] [place] [address] Jan, Anticoagulant long-term use Z79.01 [facility] [id number] [place] [address] Jan, Chronic fatigue, unspecified R53.82 [facility] [id number] [place] [address] Jan, Anticoagulant long-term use Z79.01 [facility] [id number] [place] [address] Dec, Chronic fatigue, unspecified R53.82 [facility] [address] [place] [id number] [place] [address] Dec, [facility] [id number] [place] [address] Dec, Chronic fatigue, unspecified R53.82 and Encounter for therapeutic drug level monitoring Z51.81 [facility] [address] [place] [id number] [place] [address] Nov, Encounter for therapeutic drug level monitoring Z51.81 [facility] [address] [place] [id number] [place] [address] Nov, Hematuria R31.9 [facility] [address] [place] [id number] [place] [address] Nov, Hematuria R31.9 ; Anticoagulant long-term use Z79.01 and PVD (peripheral vascular disease) I73.9 [facility] [address] [place] [id number] [place] [address] Nov, Anticoagulant long-term use Z79.01 [facility] [address] [place] [id number] [place] [address] Nov, Anticoagulant long-term use Z79.01 [facility] [address] [place] [id number] [place] [address] Nov, [facility] [address] [place] [id number] [place] [address] Nov, Hematuria R31.9 and Acute cystitis with hematuria N30.01 [facility] [address] [place] [id number] [place] [id number] Oct, [facility] [address] [place] [address] [id number] [place] [address] Oct, [facility] [address] [place] [id number] [place] [address] Oct, Hematuria R31.9 [facility] [id number] [place] [address] Oct, Hematuria R31.9 [place] [address] [place] [id number] [place] [address] Oct, Anticoagulant long-term use Z79.01 [place] [address] [address] Oct, Anticoagulant long-term use Z79.01 [place] [address] [place] [id number] [place] [address] Oct, [place] [address] [address] September, PVD (peripheral vascular disease) I73.9 ; Amput leg, unil NOS-comp S88.919A ; Acute cystitis without hematuria N30.00 ; Anticoagulant long-term use Z79.01 and Hypokalemia E87.6 [place] [address] [place] [id number] [place] [address] Aug, Anticoagulant long-term use Z79.01 and Bronchitis J40 [place] [address] [place] [id number] [place] [address] Jul, [place] [address] [address] Jul, Anticoagulant long-term use Z79.01 and Mood disorder F39 [place] [address] [place] [id number] [place] [address] Jul, [place] [address] [place] [id number] [place] [address] May, [place] [address] [place] [id number] [place] [address] May, Hypokalemia E87.6 [place] [address] [address] May, Mood disorder F39 [place] [address] [place] [id number] [place] [address] May, Anticoagulant long-term use Z79.01 [facility] [address] [place] [id number] [place] [address] Apr, Anticoagulant long-term use Z79.01 [facility] [address] [id number] [place] [address] Apr, Anticoagulant long-term use Z79.01 [facility] [address] [place] [id number] [place] [address] Apr, [facility] [address] [place] [id number] [place] [address] Apr, Anticoagulant long-term use Z79.01 [facility] [address] [place] [id number] [place] [address] Apr, Anticoagulant long-term use Z79.01 [facility] [address] [place] [id number] [place] [address] Apr, Anticoagulant long-term use Z79.01 [facility] [address] [place] [id number] [place] [address] Mar, [facility] [address] [place] [id number] [place] [address] Mar, [facility] [address] [place] [id number] [place] [address] Mar, Anticoagulant long-term use Z79.01 [facility] [address] [place] [id number] [place] [address] Feb, [facility] [address] [place] [id number] [place] [address] Feb, [facility] [address] [address] 07 Feb, 2016 Anticoagulant long-term use Z79.01 [facility] [address] [place] [id number] [place] [address] 05 Feb, 2016 Anticoagulant long-term use Z79.01 [facility] [address] [place] [id number] [place] [address] Jan, [facility] [address] [place] [id number] [place] [address] Jan, Anticoagulant long-term use Z79.01 [facility] [address] [place] [id number] [place] [address] Jan, Anticoagulant long-term use Z79.01 [facility] [address] [address] Dec, Anticoagulant long-term use Z79.01 [facility] [address] [place] [id number] [place] [address] Dec, Anticoagulant long-term use Z79.01 [facility] [address] [place] [id number] [place] [address] Dec, Anticoagulant long-term use Z79.01 and Mood disorder F39 [facility] [address] [id number] [place] [address] Dec, [facility] [address] [place] [id number] [place] [address] Nov, [facility] [address] [id number] [place] [address] Nov, Anticoagulant long-term use Z79.01 [facility] [address] [id number] [place] [address] Nov, Anticoagulant long-term use Z79.01 [facility] [address] [id number] [place] [address] September, Anticoagulant long-term use Z79.01 [facility] [address] [id number] [place] [address] Jul, Anticoagulant long-term use Z79.01 [facility] [address] [place] [id number] [place] [address] May, Anticoagulant long-term use Z79.01 [facility] [address] [place] [id number] [place] [address] May, Anticoagulant long-term use Z79.01 [place] [address] [place] [id number] [place] [address] May, Anticoagulant long-term use Z79.01 [place] [address] [place] [id number] [place] [address] May, Anticoagulant long-term use Z79.01 [place] [address] [place] [id number] [place] [address] May, [place] [address] [address] May, Congestive heart failure, unspecified congestive heart failure chronicity, unspecified congestive heart failure type I50.9 and Pulmonary congestion R09.89 [place] [address] [address] Apr, Cough R05 ; Congestive heart failure, unspecified congestive heart failure chronicity, unspecified congestive heart failure type I50.9 and Pulmonary congestion R09.89 [place] [address] [address] Mar, Hematuria R31.9 [place] [address] [place] [id number] [place] [address] Mar, [place] [address] [place] [id number] [place] [address] Mar, Anticoagulant long-term use Z79.01 [place] [address] [place] [id number] [place] [address] Mar, [place] [address] [address] Mar, Hematuria R31.9 and Infective urethritis N34.2 [place] [address] [address] Mar, Anticoagulant long-term use Z79.01 [facility] [id number], [place] [address] Mar, Anticoagulant long-term use Z79.01 [facility] [id number], [place] [address] Mar, [facility] [id number], [place] [address] Mar, Anticoagulant long-term use Z79.01 [facility] [address] [facility] [id number] [address] Feb, Peristomal skin breakdown L98.499 [facility] [address] [place] [address] Feb, [facility] [id number] [place] [address] Feb, UTI (urinary tract infection) N39.0 [facility] [address], [place] [address] Jan, [facility] [id number] [place] [address] Dec, High risk medication use V58.69 [facility] [address] [id number], [place] [address] Nov, High risk medication use V58.69 [facility] [address], [place] [address] Nov, [facility] [address] [id number] [address] Nov, UTI (lower urinary tract infection) 599.0 ; URI, acute 465.9 ; Insomnia 780.52 ; Anxiety 300.00 and Lower limb amputation, unspecified level V49.70 [facility] [address] [id number] [address] Oct, UTI (lower urinary tract infection) 599.0 ; URI, acute 465.9 ; Insomnia 780.52 ; Anxiety 300.00 and Lower limb amputation, unspecified level V49.70 [facility] [id number] [address] 14 Aug, 2014 [facility] [id number] [address] Aug, [facility] [id number] [place] [address] Jul, [facility] [address] [id number] [place] [address] Jul, [facility] [id number] [place] [address] Jun, [facility] [id number] [place] [address] Jun, [facility] [address] [id number] [place] [address] Mar, [facility] [address], [place] [address] Mar, [facility] [id number] [place] [address] Mar, [facility] [address], [place] [address] Mar, [facility] [address], [place] [address] Mar, [facility] [address], [place] [address] Feb, [facility] [id number] [address] Feb, [facility] [address], [place] [address] Feb, [facility] [address], [place] [address] Feb, [facility] [place] [facility] [address] [id number] [place] [address] Feb, [facility] [place] [facility] [address] [id number] [place] [address] Feb, [facility] [place] [facility] [address] [id number] [place] [address] Feb, [facility] [place] [facility] [address] [id number] [place] [address] Feb, [facility] [place] [facility] [address] [id number] [place] [address] Feb, [facility] [place] [facility] [address] [id number] [place] [address] Feb, [facility] [place] [facility] [address] [id number] [place] [address] Feb, [facility] [place] [facility] [address] [id number], [place] [address] Feb, [facility] [place] [facility] [address] [id number], [place] [address] Feb, [facility] [place] [facility] [address] [id number], [place] [address] Feb, [facility] [place] [facility] [address] [id number], [place] [address] Feb, [facility] [place] [facility] [address] [id number], [place] [address] Feb, [facility] [place] [facility] [address] [id number], [place] [address] Jan, [facility] [place] [facility] [address] [id number], [place] [address] Jan, [facility] [place] [facility] [address] [id number], [place] [address] Jan, [facility] [place] [facility] [address] [id number] [place] [address] Jan, [facility] [place] [facility] [address] [id number] [place] [address] Jan, [facility] [place] [facility] [address] [id number] [place] [address] Nov, [facility] [place] [facility] [address] [id number] [place] [address] Nov, [facility] [place] [facility] [address] [id number] [place] [address] Nov, [facility] [place] [facility] [address] [id number] [place] [address] Nov, [facility] [place] [facility] [address] [id number] [place] [address] Nov, [facility] [place] [facility] [address] [id number] [place] [address] Nov, [facility] [place] [facility] [address] [id number] [place] [address] Oct, [facility] [place] [facility] [address] [id number] [place] [address] Oct, [facility] [place] [facility] [address] [id number] [place] [address] Oct, [facility] [place] [facility] [address] [id number] [place] [address] Oct, [facility] [place] [facility] [address] [id number] [place] [address] Oct, [facility] [place] [facility] [address] [id number] [place] [address] Oct, [facility] [place] [facility] [address] [id number] [place] [address] Oct, [facility] [place] [facility] [address] [id number] [place] [address] September, [facility] [place] [facility] [address] [id number] [place] [address] September, [facility] [place] [facility] [address] [id number] [place] [address] September, [facility] [place] [facility] [address] [id number] [place] [address] September, [facility] [place] [facility] [address] [id number] [place] [address] September, [facility] [place] [facility] [address] [id number] [place] [address] September, [facility] [place] [facility] [address] [id number] [place] [address] September, [facility] [address] [id number] [place] [address] September, [facility] [address] [id number] [place] [address] Aug, [facility] [place] [facility] [address] [id number] [place] [address] Aug, [facility] [place] [facility] [address] [id number] [place] [address] Aug, [facility] [place] [facility] [address] [id number] [place] [address] Aug, [facility] [place] [facility] [address] [id number] [place] [address] Jul, [facility] [place] [facility] [address] [id number] [place] [address] Jul, [facility] [place] [facility] [address] [id number] [place] [address] Jun, [facility] [place] [facility] [address] [id number] [place] [address] Jun, [facility] [place] [facility] [address] [id number] [place] [address] Jun, [facility] [place] [facility] [address] [id number] [place] [address] Jun, [facility] [place] [facility] [address] [id number] [place] [address] Jun, [facility] [place] [facility] [address] [id number] [place] [address] Jun, [facility] [place] [facility] [address] [id number] [place] [address] May, [facility] [place] [facility] [address] [id number] [place] [address] May, [facility] [place] [facility] [address] [id number] [place] [address] May, [facility] [place] [facility] [address] [id number] [place] [address] May, [facility] [place] [facility] [address] [id number] [place] [address] May, [facility] [place] [facility] [address] [id number] [place] [address] May, [facility] [place] [facility] [address] [id number] [place] [address] Feb, [facility] [place] [facility] [address] [id number] [place] [address] Feb, [facility] [place] [facility] [address] [id number], [place] [address] Feb, [facility] [place] [facility] [address] [id number] [place] [address] Feb, [facility] [place] [facility] [address] [id number] [place] [address] Jan, [facility] [place] [facility] [address] [id number], [place] [address] Jan, [facility] [place] [facility] [address] [id number] [place] [address] Jan, [facility] [address] [id number] [place] [address] Dec, [facility] [place] [facility] [address] [id number] [place] [address] Nov, [facility] [place] [facility] [address] [id number] [place] [address] Nov, [facility] [address] [id number] [place] [address] Nov, [facility] [place] [facility] [address] [id number] [place] [address] Nov, [facility] [address] [id number] [place] [address] Nov, [facility] [address] [id number] [place] [address] Oct, [facility] [address] [id number] [place] [address] September, [facility] [address] [id number] [place] [address] September, [facility] [address] [id number] [place] [address] Aug, [facility] [place] [facility] [address] [id number] [place] [address] Aug, [facility] [place] [facility] [address] [id number] [place] [address] 29 Jul, 2012 [facility] [place] [facility] [address] [id number] [place] [address] Jul, [facility] [place] [facility] [address] [id number] [place] [address] 08 Jul, 2012 [facility] [place] [facility] [address] [id number], [place] [address] Jul, [facility] [address] [id number] [place] [address] Jun, [facility] [address] [id number] [place] [address] Jun, [facility] [address] [id number] [place] [address] Jun, [facility] [address] [id number] [place] [address] May, [facility] [address] [id number] [place] [address] May, [facility] [address] [id number] [place] [address] May, [facility] [address] [id number] [place] [address] May, [facility] [address] [id number] [place] [address] Apr, [facility] [address] [id number] [place] [address] Apr, [facility] [address] [facility] [id number] [place] [address] Apr, [facility] [address] [id number], [place] [address] Apr, [facility] [address] [id number], [place] [address] Apr, [facility] [address] [id number] [place] [address] Apr, [facility] [place] [facility] [address] [id number] [place] [address] Mar, [facility] [address] [id number] [place] [address] Mar, [facility] [place] [facility] [address] [id number] [place] [address] Mar, [facility] [place] [facility] [address] [id number] [place] [address] Mar, [facility] [place] [facility] [address] [id number] [place] [address] Mar, [facility] [place] [facility] [address] [id number] [place] [address] Mar, [facility] [place] [facility] [address] [id number] [place] [address] Feb, [facility] [place] [facility] [address] [id number] [place] [address] Feb, [facility] [place] [facility] [address] [id number] [place] [address] Feb, [facility] [place] [facility] [address] [id number] [place] [address] Feb, [facility] [place] [facility] [address] [id number] [place] [address] Jan, [facility] [place] [facility] [address] [id number] [place] [address] Jan, [facility] [place] [facility] [address] [id number] [place] [address] 24 Jan, 2012 [facility] [place] [facility] [address] [id number] [place] [address] 10 Jan, 2012 [facility] [place] [facility] [address] [id number] [place] [address] Dec, [facility] [place] [facility] [address] [id number] [place] [address] Dec, [facility] [place] [facility] [address] [id number] [place] [address] Nov, [facility] [place] [facility] [address] [id number] [place] [address] Oct, [facility] [place] [facility] [address] [id number] [place] [address] Oct, [facility] [place] [facility] [address] [id number] [place] [address] Oct, [facility] [place] [facility] [address] [id number] [place] [address] September, [facility] [place] [facility] [address] [id number] [place] [address] September, [facility] [place] [facility] [address] [id number] [place] [address] September, [facility] [place] [facility] [address] [id number] [place] [address] September, [facility] [place] [facility] [address] [id number] [place] [address] September, [facility] [place] [facility] [address] [id number] [place] [address] September, [facility] [place] [facility] [address] [id number] [place] [address] September, [facility] [place] [facility] [address] [id number] [place] [address] Jul, [facility] [place] [facility] [address] [id number] [place] [address] Jul, [facility] [place] [facility] [address] [id number] [place] [address] Jun, [facility] [place] [facility] [address] [id number] [place] [address] Jun, [facility] [place] [facility] [address] [id number] [place] [address] Jun, [facility] [place] [facility] [address] [id number] [place] [address] May, [facility] [place] [facility] [id number], [place] [address] Mar, [facility] [id number], [place] [address] Mar, [facility] [id number], [place] [address] Mar, [facility] [id number] [place] [address] Feb, [facility] [id number] [place] [address] Feb, [facility] [id number] [place] [address] Dec, [facility] [id number] [place] [address] May, [facility] [id number] [place] [address] Apr, [facility] [id number], [place] [address] Apr, [facility] [id number] [place] [address] Apr, [facility] [id number], [place] [address] Apr, [facility] [id number], [place] [address] Feb, [facility] [id number], [place] [address] Oct, IMMUNIZATIONS Vaccine Route Administration Date Status B12, VITAMIN (UP TO 1000 MCG) IM Intramuscular Mar 22, 2017 Administered SOCIAL HISTORY Never Assessed REASON FOR VISIT B12 injection-[facility] PLAN OF CARE Activity Details Follow Up 4 Weeks Reason: VITAL SIGNS MEDICATIONS Unknown Medications RESULTS No Results PROCEDURES Procedure Date Ordered Result Body Site B12, VITAMIN (UP TO 1000 MCG) Mar 22, 2017 THER/PROPH/DIAG INJ, SC/IM Mar 22, 2017 INSTRUCTIONS MEDICATIONS ADMINISTERED No Known Medications [...]
--- OUTSIDE RECORDS SUMMARY | 2018-12-05 12:10 | XMS REPORT ---
Author Author ERIK SAMAYOA Organization [facility] [place] Address [address] [place] [address] Care Team Providers Care Litigation Assistant Name Role Phone ERIK SAMAYOA Unavailable PROBLEMS Type Condition ICD9-CM Code EQR75-TF Code Onset Dates Condition Status SNOMED Code Problem Mood disorder F39 Active 27919088 Problem PVD (peripheral vascular disease) I73.9 Active 174068270 Problem Amput leg, unil NOS-comp S88.919A Active 84507709 Problem Acute cystitis with hematuria N30.01 Active 45391711 Problem Major depressive disorder, single episode, unspecified F32.9 Active 59690911 Problem Anticoagulant long-term use Z79.01 Active 812934273 Problem Vitamin B12 deficiency E53.8 Dec, Active 652694336 Problem Chronic obstructive pulmonary disease, unspecified COPD type J44.9 Active 67203705 Problem Congestive heart failure, unspecified congestive heart failure chronicity, unspecified congestive heart failure type I50.9 Active 51676939 Problem Chronic fatigue, unspecified R53.82 Active 924383064 Problem Peripheral vascular disease I73.9 Active 866100786 Problem Chronic fatigue R53.82 Active 73267593 ALLERGIES No Information ENCOUNTERS Encounter Location Date Diagnosis [facility] [place] [id number] [address] Dec, [facility] [place] [id number] [place] [address] Nov, Mood disorder F39 [facility] [place] [id number] [place] [address] Nov, [facility] [place] [id number] [place] [address] Oct, Mood disorder F39 ; Chronic obstructive pulmonary disease, unspecified COPD type J44.9 ; Peripheral vascular disease I73.9 and Chronic fatigue R53.82 [facility] [place] [id number] [place] [address] September, Anticoagulant long-term use Z79.01 and Congestive heart failure, unspecified congestive heart failure chronicity, unspecified congestive heart failure type I50.9 [facility] [place] [id number] [place] [address] September, Vitamin B12 deficiency E53.8 [address] [address] September, Anticoagulant long-term use Z79.01 [place] [address] [address] September, Anticoagulant long-term use Z79.01 and Congestive heart failure, unspecified congestive heart failure chronicity, unspecified congestive heart failure type I50.9 [address] [address] [address] Aug, Chronic fatigue, unspecified R53.82 [address] [place] [address] [address] Aug, Anticoagulant long-term use Z79.01 [address] [address] [address] Aug, Nausea R11.0 and Weakness R53.1 [address] [address] [address] Aug, [facility] [address] [address] Aug, Hematuria R31.9 and Acute cystitis with hematuria N30.01 [address] [place] [address] [address] Aug, [facility] [place] [address] [address] Jul, Vitamin B 12 deficiency E53.8 [place] [address] [place] [address] Jul, Anticoagulant long-term use Z79.01 [place] [id number] [place] [address] Jun, Chronic fatigue, unspecified R53.82 [place] [id number] [place] [address] Jun, Anticoagulant long-term use Z79.01 [place] [id number] [place] [address] May, Flu-like symptoms R68.89 and Influenza A J10.1 [place] [id number] [place] [address] May, [place] [id number] [place] [address] May, Chronic fatigue, unspecified R53.82 [place] [id number] [place] [address] May, Anticoagulant long-term use Z79.01 [place] [id number] [place] [address] Apr, Medicare welcome exam Z00.00 ; Anticoagulant long-term use Z79.01 ; Medicare annual wellness visit, initial Z00.00 ; Medicare annual wellness visit, subsequent Z00.00 and Chronic fatigue, unspecified R53.82 [place] [id number] [place] [address] 15 Mar, 2017 Chronic fatigue, unspecified R53.82 [place] [id number] [place] [address] Mar, Anticoagulant long-term use Z79.01 [place] [id number] [place] [address] Mar, Anticoagulant long-term use Z79.01 and Hematuria R31.9 [place] [address] [place] [address] Mar, Hematuria R31.9 [facility] [place] [id number] [place] [address] Feb, Anticoagulant long-term use Z79.01 [facility] [place] [id number] [place] [address] Feb, Anticoagulant long-term use Z79.01 [facility] [place] [id number] [place] [address] Feb, Anticoagulant long-term use Z79.01 [facility] [place] [id number] [place] [address] Feb, Chronic fatigue, unspecified R53.82 [place] [id number] [place] [address] Feb, Anticoagulant long-term use Z79.01 [facility] [place] [id number] [place] [address] Feb, Congestive heart failure, unspecified congestive heart failure chronicity, unspecified congestive heart failure type I50.9 [place] [id number] [place] [address] Feb, Congestive heart failure, unspecified congestive heart failure chronicity, unspecified congestive heart failure type I50.9 [place] [id number] [place] [address] Feb, [facility] [place] [id number] [place] [address] Jan, Anticoagulant long-term use Z79.01 [facility] [place] [id number] [place] [address] Jan, [facility] [place] [id number] [place] [address] Jan, Anticoagulant long-term use Z79.01 and Hematuria R31.9 [facility] [place] [address] [place] [address] Jan, Anticoagulant long-term use Z79.01 [facility] [place] [id number] [place] [address] Jan, Chronic fatigue, unspecified R53.82 [facility] [place] [id number] [place] [address] Jan, Anticoagulant long-term use Z79.01 [facility] [place] [id number] [place] [address] Dec, Chronic fatigue, unspecified R53.82 [address] [address] [address] Dec, [facility] [place] [id number] [place] [address] Dec, Chronic fatigue, unspecified R53.82 and Encounter for therapeutic drug level monitoring Z51.81 [facility] [place] [id number] [place] [address] Nov, Encounter for therapeutic drug level monitoring Z51.81 [place] [id number] [place] [address] Nov, Hematuria R31.9 [facility] [place] [id number] [place] [address] Nov, Hematuria R31.9 ; Anticoagulant long-term use Z79.01 and PVD (peripheral vascular disease) I73.9 [facility] [place] [id number] [place] [address] Nov, Anticoagulant long-term use Z79.01 [facility] [place] [id number] [place] [address] Nov, Anticoagulant long-term use Z79.01 [facility] [place] [id number] [place] [address] Nov, [facility] [place] [address] [place] [address] Nov, Hematuria R31.9 and Acute cystitis with hematuria N30.01 [facility] [address] [id number] Oct, [facility] [place] [address] [address] Oct, [place] [address] [address] Oct, Hematuria R31.9 [place] [address] [address] Oct, Hematuria R31.9 [address] [address] [address] Oct, Anticoagulant long-term use Z79.01 [address] [address] [address] Oct, Anticoagulant long-term use Z79.01 [address] [address] [address] Oct, [place] [address] [address] September, PVD (peripheral vascular disease) I73.9 ; Amput leg, unil NOS-comp S88.919A ; Acute cystitis without hematuria N30.00 ; Anticoagulant long-term use Z79.01 and Hypokalemia E87.6 [place] [address] [address] Aug, Anticoagulant long-term use Z79.01 and Bronchitis J40 [place] [address] [address] Jul, [place] [address] [address] Jul, Anticoagulant long-term use Z79.01 and Mood disorder F39 [place] [id number] [place] [address] Jul, [facility] [place] [id number] [place] [address] May, [facility] [place] [id number] [place] [address] May, Hypokalemia E87.6 [facility] [place] [address] [address] May, Mood disorder F39 [facility] [place] [address] [address] May, Anticoagulant long-term use Z79.01 [facility] [place] [id number] [place] [address] Apr, Anticoagulant long-term use Z79.01 [facility] [place] [address] [address] Apr, Anticoagulant long-term use Z79.01 [facility] [place] [id number] [place] [address] Apr, [facility] [place] [id number] [place] [address] Apr, Anticoagulant long-term use Z79.01 [facility] [place] [id number] [place] [address] Apr, Anticoagulant long-term use Z79.01 [facility] [place] [id number] [place] [address] Apr, Anticoagulant long-term use Z79.01 [facility] [place] [id number] [place] [address] Mar, [facility] [place] [id number] [place] [address] Mar, [facility] [place] [id number] [place] [address] Mar, Anticoagulant long-term use Z79.01 [facility] [place] [id number] [place] [address] Feb, [facility] [place] [id number] [place] [address] Feb, [facility] [place] [id number] [place] [address] Feb, Anticoagulant long-term use Z79.01 [facility] [place] [id number] [place] [address] Feb, Anticoagulant long-term use Z79.01 [facility] [place] [id number] [place] [address] Jan, [place] [id number] [place] [address] Jan, Anticoagulant long-term use Z79.01 [facility] [place] [id number] [place] [address] Jan, Anticoagulant long-term use Z79.01 [facility] [place] [id number] [place] [address] Dec, Anticoagulant long-term use Z79.01 [facility] [place] [id number] [place] [address] Dec, Anticoagulant long-term use Z79.01 [facility] [place] [id number] [place] [address] Dec, Anticoagulant long-term use Z79.01 and Mood disorder F39 [facility] [place] [id number] [place] [address] Dec, [facility] [place] [id number] [place] [address] Nov, [facility] [place] [id number] [place] [address] Nov, Anticoagulant long-term use Z79.01 [facility] [place] [address] [address] Nov, Anticoagulant long-term use Z79.01 [facility] [place] [id number] [place] [address] September, Anticoagulant long-term use Z79.01 [facility] [place] [id number] [place] [address] Jul, Anticoagulant long-term use Z79.01 [facility] [place] [id number] [place] [address] May, Anticoagulant long-term use Z79.01 [place] [id number] [place] [address] May, Anticoagulant long-term use Z79.01 [place] [id number] [place] [address] May, Anticoagulant long-term use Z79.01 [place] [id number] [place] [address] May, Anticoagulant long-term use Z79.01 [place] [id number] [place] [address] May, [place] [id number] [place] [address] May, Congestive heart failure, unspecified congestive heart failure chronicity, unspecified congestive heart failure type I50.9 and Pulmonary congestion R09.89 [place] [id number] [place] [address] Apr, Cough R05 ; Congestive heart failure, unspecified congestive heart failure chronicity, unspecified congestive heart failure type I50.9 and Pulmonary congestion R09.89 [place] [id number] [place] [address] Mar, Hematuria R31.9 [place] [id number] [place] [address] Mar, [facility] [place] [id number] [place] [address] Mar, Anticoagulant long-term use Z79.01 [facility] [place] [id number] [place] [address] Mar, [facility] [place] [address] [address] Mar, Hematuria R31.9 and Infective urethritis N34.2 [place] [address] [address] Mar, Anticoagulant long-term use Z79.01 [facility] [place] [id number] [place] [address] Mar, Anticoagulant long-term use Z79.01 [place] [id number] [place] [address] Mar, [facility] [place] [id number] [place] [address] Mar, Anticoagulant long-term use Z79.01 [facility] [place] [id number] [place] [address] Feb, Peristomal skin breakdown L98.499 [place] [id number] [place] [address] Feb, [facility] [place] [id number] [place] [address] Feb, UTI (urinary tract infection) N39.0 [place] [id number] [place] [address] Jan, [facility] [place] [id number] [place] [address] Dec, High risk medication use V58.69 [facility] [place] [id number] [place] [address] Nov, High risk medication use V58.69 [facility] [place] [address] [facility] [id number] [address] Nov, [facility] [place] [address] [facility] [id number] [address] Nov, UTI (lower urinary tract infection) 599.0 ; URI, acute 465.9 ; Insomnia 780.52 ; Anxiety 300.00 and Lower limb amputation, unspecified level V49.70 [facility] [place] [address] [facility] [id number] [address] Oct, UTI (lower urinary tract infection) 599.0 ; URI, acute 465.9 ; Insomnia 780.52 ; Anxiety 300.00 and Lower limb amputation, unspecified level V49.70 [facility] [place] [address] [facility] [id number], [place] [address] Aug, [facility] [place] [address] [facility] [id number], [place] [address] Aug, [facility] [place] [id number] [address] Jul, [facility] [place] [id number] [address] Jul, [facility] [place] [id number] [address] Jun, [facility] [place] [id number] [address] Jun, [facility] [place] [id number] [address] Mar, [facility] [place] [id number] [address] Mar, [facility] [place] [id number] [address] Mar, [facility] [place] [address] [id number] [place] [address] 05 Mar, 2013 [facility] [place] [facility] [address] [id number] [place] [address] Mar, 2013 [facility] [place] [facility] [address] [id number] [place] [address] Feb, [facility] [place] [facility] [address] [id number] [place] [address] Feb, [facility] [place] [facility] [address] [id number] [place] [address] Feb, [facility] [place] [facility] [address] [id number] [place] [address] Feb, [facility] [place] [facility] [address] [id number] [place] [address] Feb, [facility] [place] [facility] [address] [id number] [place] [address] Feb, [facility] [place] [facility] [address] [id number] [place] [address] Feb, [facility] [place] [facility] [address] [id number] [place] [address] Feb, [facility] [place] [facility] [address] [id number] [place] [address] Feb, [facility] [place] [facility] [address] [id number] [place] [address] Feb, [facility] [place] [facility] [address] [id number] [place] [address] Feb, [facility] [place] [facility] [address] [id number] [place] [address] Feb, [facility] [place] [facility] [address] [id number] [place] [address] Feb, [facility] [place] [facility] [address] [id number] [place] [address] Feb, [facility] [place] [facility] [address] [id number] [place] [address] Feb, [facility] [place] [facility] [address] [id number] [place] [address] Feb, [facility] [place] [facility] [address] [id number] [place] [address] Jan, [facility] [place] [facility] [address] [id number] [place] [address] Jan, [facility] [place] [facility] [address] [id number] [place] [address] Jan, [facility] [place] [facility] [address] [id number] [place] [address] Jan, [facility] [place] [facility] [address] [id number] [place] [address] Jan, [facility] [place] [facility] [address] [id number] [place] [address] Nov, [facility] [place] [facility] [address] [id number] [place] [address] Nov, [facility] [place] [facility] [address] [id number] [place] [address] Nov, [facility] [place] [facility] [address] [id number] [place] [address] Nov, [facility] [place] [facility] [address] [id number], [place] [address] Nov, [facility] [place] [facility] [address] [id number] [place] [address] Nov, [facility] [place] [facility] [address] [id number] [place] [address] Oct, [facility] [place] [facility] [address] [id number] [place] [address] Oct, [facility] [place] [facility] [address] [id number] [place] [address] Oct, [facility] [place] [facility] [address] [id number] [place] [address] Oct, [facility] [place] [facility] [address] [id number] [place] [address] Oct, [facility] [place] [facility] [address] [id number] [place] [address] Oct, [facility] [place] [facility] [address] [id number] [place] [address] Oct, [facility] [place] [facility] [address] [id number] [place] [address] September, [facility] [place] [facility] [address] [id number] [place] [address] September, [facility] [place] [facility] [address] [id number] [place] [address] September, [facility] [place] [facility] [address] [id number] [place] [address] September, [facility] [place] [facility] [address] [id number] [place] [address] September, [facility] [place] [facility] [address] [id number] [place] [address] September, [facility] [place] [facility] [address] [id number] [place] [address] September, [facility] [place] [facility] [address] [id number] [place] [address] September, [facility] [place] [facility] [address] [id number] [place] [address] Aug, [facility] [place] [facility] [address] [id number] [place] [address] Aug, [facility] [place] [facility] [address] [id number] [place] [address] Aug, [facility] [place] [facility] [address] [id number] [place] [address] Aug, [facility] [place] [facility] [address] [id number] [place] [address] Jul, [facility] [place] [facility] [address] [id number] [place] [address] Jul, [facility] [place] [facility] [address] [id number] [place] [address] Jun, [facility] [place] [facility] [address] [id number] [place] [address] Jun, [facility] [place] [facility] [address] [id number] [place] [address] Jun, [facility] [place] [facility] [address] [id number] [place] [address] Jun, [facility] [place] [facility] [address] [id number] [place] [address] Jun, [facility] [place] [facility] [address] [id number] [place] [address] Jun, [facility] [place] [facility] [address] [id number] [place] [address] May, [facility] [place] [facility] [address] [id number] [place] [address] May, [facility] [place] [facility] [address] [id number] [place] [address] May, [facility] [place] [facility] [address] [id number] [place] [address] May, [facility] [place] [facility] [address] [id number] [place] [address] May, [facility] [place] [facility] [address] [id number] [place] [address] May, [facility] [place] [facility] [address] [id number] [place] [address] Feb, [facility] [place] [facility] [address] [id number] [place] [address] Feb, [facility] [place] [facility] [address] [id number] [place] [address] Feb, [facility] [place] [facility] [address] [id number] [place] [address] Feb, [facility] [place] [facility] [address] [id number] [place] [address] Jan, [facility] [place] [facility] [address] [id number] [place] [address] Jan, [facility] [place] [facility] [address] [id number] [place] [address] Jan, [facility] [place] [facility] [address] [id number] [place] [address] Dec, [facility] [place] [facility] [address] [id number] [place] [address] Nov, [facility] [place] [facility] [address] [id number] [place] [address] Nov, [facility] [place] [facility] [address] [id number] [place] [address] Nov, [facility] [place] [facility] [address] [id number], [place] [address] Nov, [facility] [place] [facility] [address] [id number] [place] [address] Nov, [facility] [place] [facility] [address] [id number] [place] [address] Oct, [facility] [place] [facility] [address] [id number] [place] [address] September, [facility] [place] [facility] [address] [id number] [place] [address] September, [facility] [place] [facility] [address] [id number] [place] [address] 29 Aug, 2012 [facility] [address] [id number] [place] [address] Aug, [facility] [place] [facility] [address] [id number] [place] [address] Jul, [facility] [address] [id number] [place] [address] Jul, [facility] [place] [facility] [address] [id number] [place] [address] Jul, [facility] [address] [id number] [place] [address] Jul, [facility] [address] [id number] [place] [address] Jun, [facility] [address] [id number] [place] [address] Jun, [facility] [address] [id number] [place] [address] Jun, [facility] [address] [id number] [place] [address] May, [facility] [address] [id number] [place] [address] May, [facility] [address] [id number] [place] [address] May, [facility] [address] [id number] [place] [address] May, [facility] [address] [id number] [place] [address] Apr, [facility] [place] [facility] [address] [id number] [place] [address] Apr, [facility] [address] [id number] [place] [address] Apr, [facility] [place] [facility] [address] [id number] [place] [address] Apr, [facility] [place] [facility] [address] [id number] [place] [address] Apr, [facility] [place] [facility] [address] [facility] [id number] [place] [address] Apr, [facility] [place] [facility] [address] [id number], [place] [address] Mar, [facility] [place] [facility] [address] [id number] [place] [address] Mar, [facility] [place] [facility] [address] [id number] [place] [address] Mar, [facility] [place] [facility] [address] [facility] [id number] [place] [address] Mar, [facility] [place] [facility] [address] [id number], [place] [address] Mar, [facility] [place] [facility] [address] [facility] [id number], [place] [address] Mar, [facility] [place] [facility] [address] [facility] [id number], [place] [address] Feb, [facility] [place] [facility] [address] [facility] [id number], [place] [address] Feb, [facility] [place] [facility] [address] [id number], [place] [address] Feb, [facility] [place] [facility] [address] [id number], [place] [address] Feb, [facility] [place] [facility] [address] [facility] [id number], [place] [address] Jan, [facility] [place] [facility] [address] [facility] [id number], [place] [address] Jan, [facility] [place] [facility] [address] [id number] [place] [address] 24 Jan, 2012 [facility] [place] [facility] [address] [id number] [place] [address] 10 Jan, 2012 [facility] [place] [facility] [address] [id number] [place] [address] Dec, [facility] [place] [facility] [address] [id number] [place] [address] Dec, [facility] [place] [facility] [address] [id number] [place] [address] Nov, [facility] [place] [facility] [address] [id number] [place] [address] Oct, [facility] [place] [facility] [address] [id number] [place] [address] Oct, [facility] [place] [facility] [address] [id number] [place] [address] Oct, [facility] [place] [facility] [address] [id number] [place] [address] September, [facility] [place] [facility] [address] [id number] [place] [address] September, [facility] [place] [facility] [address] [id number] [place] [address] September, [facility] [place] [facility] [address] [id number] [place] [address] September, [facility] [place] [facility] [address] [id number] [place] [address] September, [facility] [place] [facility] [address] [id number] [place] [address] September, [facility] [place] [facility] [address] [id number] [place] [address] September, [facility] [place] [facility] [address] [id number] [place] [address] Jul, [facility] [place] [facility] [address] [id number] [place] [address] Jul, [facility] [place] [facility] [address] [id number] [place] [address] 28 Jun, 2011 [facility] [place] [facility] [address] [id number] [place] [address] Jun, [facility] [place] [facility] [address] [id number] [place] [address] Jun, [facility] [place] [facility] [address] [id number] [place] [address] May, [facility] [place] [facility] [address] [id number] [place] [address] Mar, [facility] [place] [facility] [address] [id number] [place] [address] Mar, [facility] [place] [facility] [address] [id number] [place] [address] 14 Mar, 2011 [facility] [place] [facility] [address] [id number] [place] [address] Feb, [facility] [place] [facility] [address] [id number] [place] [address] Feb, [facility] [place] [facility] [address] [id number] [place] [address] Dec, [facility] [place] [facility] [address] [id number], [place] [address] 15 May, 2009 [facility] [place] [facility] [address] [id number] [place] [address] Apr, [facility] [place] [facility] [address] [id number] [place] [address] Apr, [facility] [place] [facility] [address] [id number], [place] [address] 14 Apr, 2009 [facility] [place] [facility] [address] [id number] [place] [address] Apr, [facility] [place] [address] [facility] [id number] [place] [address] Feb, [facility] [place] [address] [facility] [id number], [place] [address] Oct, IMMUNIZATIONS Vaccine Route Administration Date Status B12, VITAMIN (UP TO 1000 MCG) IM Intramuscular Jun 26, 2017 Administered SOCIAL HISTORY Never Assessed REASON FOR VISIT B12 injection CBrumbackRn PLAN OF CARE VITAL SIGNS MEDICATIONS Unknown Medications RESULTS No Results PROCEDURES Procedure Date Ordered Result Body Site B12, VITAMIN (UP TO 1000 MCG) Jun 26, 2017 THER/PROPH/DIAG INJ, SC/IM Jun 26, 2017 INSTRUCTIONS MEDICATIONS ADMINISTERED No Known [...]
--- OUTSIDE RECORDS SUMMARY | 2018-12-05 12:10 | XMS REPORT ---
Author Author ERIK SAMAYOA Organization [facility] Address [address] [place] [address] Care Team Providers Care Tie Puller Name Role Phone ERIK SAMAYOA Unavailable PROBLEMS Type Condition ICD9-CM Code WFU12-RC Code Onset Dates Condition Status SNOMED Code Problem Mood disorder F39 Active 46093079 Problem PVD (peripheral vascular disease) I73.9 Active 687632312 Problem Amput leg, unil NOS-comp S88.919A Active 33005983 Problem Acute cystitis with hematuria N30.01 Active 55920539 Problem Major depressive disorder, single episode, unspecified F32.9 Active 60694406 Problem Anticoagulant long-term use Z79.01 Active 379214811 Problem Vitamin B12 deficiency E53.8 Dec, Active 241777416 Problem Chronic obstructive pulmonary disease, unspecified COPD type J44.9 Active 50950033 Problem Congestive heart failure, unspecified congestive heart failure chronicity, unspecified congestive heart failure type I50.9 Active 24571747 Problem Chronic fatigue, unspecified R53.82 Active 688134778 Problem Peripheral vascular disease I73.9 Active 076773083 Problem Chronic fatigue R53.82 Active 49085323 ALLERGIES No Information ENCOUNTERS Encounter Location Date Diagnosis [facility] [id number] [address] Dec, [facility] [id number] [place] [address] Nov, Mood disorder F39 [facility] [id number] [place] [address] Nov, [facility] [id number] [place] [address] Oct, Mood disorder F39 ; Chronic obstructive pulmonary disease, unspecified COPD type J44.9 ; Peripheral vascular disease I73.9 and Chronic fatigue R53.82 [facility] [id number] [place] [address] September, Anticoagulant long-term use Z79.01 and Congestive heart failure, unspecified congestive heart failure chronicity, unspecified congestive heart failure type I50.9 [facility] [id number] [place] [address] September, Vitamin B12 deficiency E53.8 [place] [address] [address] September, Anticoagulant long-term use Z79.01 [place] [address] [address] September, Anticoagulant long-term use Z79.01 and Congestive heart failure, unspecified congestive heart failure chronicity, unspecified congestive heart failure type I50.9 [place] [address] [address] Aug, Chronic fatigue, unspecified R53.82 [place] [address] [address] Aug, Anticoagulant long-term use Z79.01 [place] [address] [address] Aug, Nausea R11.0 and Weakness R53.1 [place] [address] [address] Aug, [facility] [address] [address] Aug, Hematuria R31.9 and Acute cystitis with hematuria N30.01 [place] [address] [address] Aug, [facility] [address] [address] Jul, Vitamin B 12 deficiency E53.8 [place] [id number] [place] [address] Jul, Anticoagulant long-term use Z79.01 [place] [id number] [place] [address] Jun, Chronic fatigue, unspecified R53.82 [place] [id number] [place] [address] Jun, Anticoagulant long-term use Z79.01 [place] [id number] [place] [address] May, Flu-like symptoms R68.89 and Influenza A J10.1 [place] [id number] [place] [address] May, [place] [id number] [place] [address] May, Chronic fatigue, unspecified R53.82 [place] [id number] [place] [address] May, Anticoagulant long-term use Z79.01 [place] [id number] [place] [address] Apr, Medicare welcome exam Z00.00 ; Anticoagulant long-term use Z79.01 ; Medicare annual wellness visit, initial Z00.00 ; Medicare annual wellness visit, subsequent Z00.00 and Chronic fatigue, unspecified R53.82 [place] [id number] [place] [address] 15 Mar, 2017 Chronic fatigue, unspecified R53.82 [place] [id number] [place] [address] Mar, Anticoagulant long-term use Z79.01 [place] [id number] [place] [address] Mar, Anticoagulant long-term use Z79.01 and Hematuria R31.9 [place] [address] [place] [address] Mar, Hematuria R31.9 [facility] [id number] [place] [address] Feb, Anticoagulant long-term use Z79.01 [facility] [id number] [place] [address] Feb, Anticoagulant long-term use Z79.01 [facility] [id number] [place] [address] Feb, Anticoagulant long-term use Z79.01 [facility] [id number] [place] [address] Feb, Chronic fatigue, unspecified R53.82 [place] [id number] [place] [address] Feb, Anticoagulant long-term use Z79.01 [facility] [id number] [place] [address] Feb, Congestive heart failure, unspecified congestive heart failure chronicity, unspecified congestive heart failure type I50.9 [place] [id number] [place] [address] Feb, Congestive heart failure, unspecified congestive heart failure chronicity, unspecified congestive heart failure type I50.9 [place] [id number] [place] [address] Feb, [facility] [id number] [place] [address] Jan, Anticoagulant long-term use Z79.01 [facility] [id number] [place] [address] Jan, [facility] [id number] [place] [address] Jan, Anticoagulant long-term use Z79.01 and Hematuria R31.9 [facility] [address] [place] [address] Jan, Anticoagulant long-term use Z79.01 [facility] [id number] [place] [address] Jan, Chronic fatigue, unspecified R53.82 [facility] [id number] [place] [address] Jan, Anticoagulant long-term use Z79.01 [facility] [id number] [place] [address] Dec, Chronic fatigue, unspecified R53.82 [place] [address] [address] Dec, [facility] [id number] [place] [address] Dec, Chronic fatigue, unspecified R53.82 and Encounter for therapeutic drug level monitoring Z51.81 [facility] [id number] [place] [address] Nov, Encounter for therapeutic drug level monitoring Z51.81 [place] [id number] [place] [address] Nov, Hematuria R31.9 [facility] [id number] [place] [address] Nov, Hematuria R31.9 ; Anticoagulant long-term use Z79.01 and PVD (peripheral vascular disease) I73.9 [facility] [id number] [place] [address] Nov, Anticoagulant long-term use Z79.01 [facility] [id number] [place] [address] Nov, Anticoagulant long-term use Z79.01 [facility] [id number] [place] [address] Nov, [facility] [address] [place] [address] Nov, Hematuria R31.9 and Acute cystitis with hematuria N30.01 [facility] [address] [id number] Oct, [facility] [address] [address] Oct, [place] [address] [address] Oct, Hematuria R31.9 [place] [address] [address] Oct, Hematuria R31.9 [place] [address] [address] Oct, Anticoagulant long-term use Z79.01 [place] [address] [address] Oct, Anticoagulant long-term use Z79.01 [place] [address] [address] Oct, [place] [address] [address] September, PVD (peripheral vascular disease) I73.9 ; Amput leg, unil NOS-comp S88.919A ; Acute cystitis without hematuria N30.00 ; Anticoagulant long-term use Z79.01 and Hypokalemia E87.6 [place] [address] [address] Aug, Anticoagulant long-term use Z79.01 and Bronchitis J40 [place] [address] [address] Jul, [place] [address] [address] Jul, Anticoagulant long-term use Z79.01 and Mood disorder F39 [place] [id number] [place] [address] Jul, [facility] [id number] [place] [address] May, [facility] [id number] [place] [address] May, Hypokalemia E87.6 [facility] [address] [address] May, Mood disorder F39 [facility] [address] [address] May, Anticoagulant long-term use Z79.01 [facility] [id number] [place] [address] Apr, Anticoagulant long-term use Z79.01 [facility] [address] [address] Apr, Anticoagulant long-term use Z79.01 [facility] [id number] [place] [address] Apr, [facility] [id number] [place] [address] Apr, Anticoagulant long-term use Z79.01 [facility] [id number] [place] [address] Apr, Anticoagulant long-term use Z79.01 [facility] [id number] [place] [address] Apr, Anticoagulant long-term use Z79.01 [facility] [id number] [place] [address] Mar, [facility] [id number] [place] [address] Mar, [facility] [id number] [place] [address] Mar, Anticoagulant long-term use Z79.01 [facility] [id number] [place] [address] Feb, [facility] [id number] [place] [address] Feb, [facility] [id number] [place] [address] Feb, Anticoagulant long-term use Z79.01 [facility] [id number] [place] [address] Feb, Anticoagulant long-term use Z79.01 [facility] [id number] [place] [address] Jan, [place] [id number] [place] [address] Jan, Anticoagulant long-term use Z79.01 [facility] [id number] [place] [address] Jan, Anticoagulant long-term use Z79.01 [facility] [id number] [place] [address] Dec, Anticoagulant long-term use Z79.01 [facility] [id number] [place] [address] Dec, Anticoagulant long-term use Z79.01 [facility] [id number] [place] [address] Dec, Anticoagulant long-term use Z79.01 and Mood disorder F39 [facility] [id number] [place] [address] Dec, [facility] [id number] [place] [address] Nov, [facility] [id number] [place] [address] Nov, Anticoagulant long-term use Z79.01 [facility] [address] [address] Nov, Anticoagulant long-term use Z79.01 [facility] [id number] [place] [address] September, Anticoagulant long-term use Z79.01 [facility] [id number] [place] [address] Jul, Anticoagulant long-term use Z79.01 [facility] [id number] [place] [address] May, Anticoagulant long-term use Z79.01 [place] [id number] [place] [address] May, Anticoagulant long-term use Z79.01 [place] [id number] [place] [address] May, Anticoagulant long-term use Z79.01 [place] [id number] [place] [address] May, Anticoagulant long-term use Z79.01 [place] [id number] [place] [address] May, [place] [id number] [place] [address] May, Congestive heart failure, unspecified congestive heart failure chronicity, unspecified congestive heart failure type I50.9 and Pulmonary congestion R09.89 [place] [id number] [place] [address] Apr, Cough R05 ; Congestive heart failure, unspecified congestive heart failure chronicity, unspecified congestive heart failure type I50.9 and Pulmonary congestion R09.89 [place] [id number] [place] [address] Mar, Hematuria R31.9 [place] [id number] [place] [address] Mar, [facility] [id number] [place] [address] Mar, Anticoagulant long-term use Z79.01 [facility] [id number] [place] [address] Mar, [facility] [address] [address] Mar, Hematuria R31.9 and Infective urethritis N34.2 [place] [address] [address] Mar, Anticoagulant long-term use Z79.01 [facility] [id number] [place] [address] Mar, Anticoagulant long-term use Z79.01 [place] [id number] [place] [address] Mar, [facility] [id number] [place] [address] Mar, Anticoagulant long-term use Z79.01 [facility] [id number] [place] [address] Feb, Peristomal skin breakdown L98.499 [place] [id number] [place] [address] Feb, [facility] [id number] [place] [address] Feb, UTI (urinary tract infection) N39.0 [place] [id number] [place] [address] Jan, [facility] [id number] [place] [address] Dec, High risk medication use V58.69 [facility] [id number] [place] [address] Nov, High risk medication use V58.69 [facility] [address] [facility] [id number] [address] Nov, [facility] [address] [facility] [id number], [place] [address] Nov, UTI (lower urinary tract infection) 599.0 ; URI, acute 465.9 ; Insomnia 780.52 ; Anxiety 300.00 and Lower limb amputation, unspecified level V49.70 [facility] [address] [facility] [id number], [place] [address] Oct, UTI (lower urinary tract infection) 599.0 ; URI, acute 465.9 ; Insomnia 780.52 ; Anxiety 300.00 and Lower limb amputation, unspecified level V49.70 [facility] [address] [facility] [id number], [place] [address] Aug, [facility] [address] [facility] [id number], [place] [address] Aug, [facility] [id number] [address] Jul, [facility] [id number] [address] Jul, [facility] [id number] [address] Jun, [facility] [id number] [address] Jun, [facility] [id number] [address] Mar, [facility] [id number] [address] Mar, [facility] [id number] [address] Mar, [facility] [id number] [address] 05 Mar, 2013 [facility] [place] [facility] [address] [id number] [place] [address] Mar, 2013 [facility] [place] [facility] [address] [id number] [place] [address] Feb, [facility] [place] [facility] [address] [id number] [place] [address] Feb, [facility] [place] [facility] [address] [id number] [place] [address] Feb, [facility] [place] [facility] [address] [id number] [place] [address] Feb, [facility] [place] [facility] [address] [id number] [place] [address] Feb, [facility] [place] [facility] [address] [id number] [place] [address] Feb, [facility] [place] [facility] [address] [id number] [place] [address] Feb, [facility] [place] [facility] [address] [id number] [place] [address] Feb, [facility] [place] [facility] [address] [id number] [place] [address] Feb, [facility] [place] [facility] [address] [id number] [place] [address] Feb, [facility] [place] [facility] [address] [id number] [place] [address] Feb, [facility] [place] [facility] [address] [id number] [place] [address] Feb, [facility] [place] [facility] [address] [id number] [place] [address] Feb, [facility] [place] [facility] [address] [id number] [place] [address] Feb, [facility] [place] [facility] [address] [id number] [place] [address] Feb, [facility] [place] [facility] [address] [id number] [place] [address] Feb, [facility] [place] [facility] [address] [id number] [place] [address] Jan, [facility] [place] [facility] [address] [id number] [place] [address] Jan, [facility] [place] [facility] [address] [id number] [place] [address] Jan, [facility] [place] [facility] [address] [id number] [place] [address] Jan, [facility] [place] [facility] [address] [id number] [place] [address] Jan, [facility] [place] [facility] [address] [id number] [place] [address] Nov, [facility] [place] [facility] [address] [id number] [place] [address] Nov, [facility] [place] [facility] [address] [id number] [place] [address] Nov, [facility] [place] [facility] [address] [id number] [place] [address] Nov, [facility] [place] [facility] [address] [id number], [place] [address] Nov, [facility] [place] [facility] [address] [id number] [place] [address] Nov, [facility] [place] [facility] [address] [id number] [place] [address] Oct, [facility] [place] [facility] [address] [id number] [place] [address] Oct, [facility] [place] [facility] [address] [id number] [place] [address] Oct, [facility] [place] [facility] [address] [id number] [place] [address] Oct, [facility] [place] [facility] [address] [id number] [place] [address] Oct, [facility] [place] [facility] [address] [id number] [place] [address] Oct, [facility] [place] [facility] [address] [id number] [place] [address] Oct, [facility] [place] [facility] [address] [id number] [place] [address] September, [facility] [place] [facility] [address] [id number] [place] [address] September, [facility] [place] [facility] [address] [id number] [place] [address] September, [facility] [place] [facility] [address] [id number] [place] [address] September, [facility] [place] [facility] [address] [id number] [place] [address] September, [facility] [place] [facility] [address] [id number] [place] [address] September, [facility] [place] [facility] [address] [id number] [place] [address] September, [facility] [place] [facility] [address] [id number] [place] [address] September, [facility] [place] [facility] [address] [id number] [place] [address] Aug, [facility] [place] [facility] [address] [id number] [place] [address] Aug, [facility] [place] [facility] [address] [id number] [place] [address] Aug, [facility] [place] [facility] [address] [id number] [place] [address] Aug, [facility] [place] [facility] [address] [id number] [place] [address] Jul, [facility] [place] [facility] [address] [id number] [place] [address] Jul, [facility] [place] [facility] [address] [id number] [place] [address] Jun, [facility] [place] [facility] [address] [id number] [place] [address] Jun, [facility] [place] [facility] [address] [id number] [place] [address] Jun, [facility] [place] [facility] [address] [id number] [place] [address] Jun, [facility] [place] [facility] [address] [id number] [place] [address] Jun, [facility] [place] [facility] [address] [id number] [place] [address] Jun, [facility] [place] [facility] [address] [id number] [place] [address] May, [facility] [place] [facility] [address] [id number] [place] [address] May, [facility] [place] [facility] [address] [id number] [place] [address] May, [facility] [place] [facility] [address] [id number] [place] [address] May, [facility] [place] [facility] [address] [id number] [place] [address] May, [facility] [place] [facility] [address] [id number] [place] [address] May, [facility] [place] [facility] [address] [id number] [place] [address] Feb, [facility] [address] [id number] [place] [address] Feb, [facility] [place] [facility] [address] [id number] [place] [address] Feb, [facility] [place] [facility] [address] [id number] [place] [address] Feb, [facility] [place] [facility] [address] [id number] [place] [address] Jan, [facility] [place] [facility] [address] [id number] [place] [address] Jan, [facility] [place] [facility] [address] [id number] [place] [address] Jan, [facility] [place] [facility] [address] [id number] [place] [address] Dec, [facility] [place] [facility] [address] [id number] [place] [address] Nov, [facility] [place] [facility] [address] [id number] [place] [address] Nov, [facility] [place] [facility] [address] [id number] [place] [address] Nov, [facility] [place] [facility] [address] [id number], [place] [address] Nov, [facility] [place] [facility] [address] [id number] [place] [address] Nov, [facility] [place] [facility] [address] [id number] [place] [address] Oct, [facility] [place] [facility] [address] [id number] [place] [address] September, [facility] [place] [facility] [address] [id number] [place] [address] September, [facility] [place] [facility] [address] [id number] [place] [address] 29 Aug, 2012 [facility] [address] [id number] [place] [address] Aug, [facility] [address] [id number] [place] [address] Jul, [facility] [address] [id number] [place] [address] Jul, [facility] [address] [id number] [place] [address] Jul, [facility] [address] [id number] [place] [address] Jul, [facility] [address] [id number] [place] [address] Jun, [facility] [address] [id number] [place] [address] Jun, [facility] [address] [id number] [place] [address] Jun, [facility] [address] [id number] [place] [address] May, [facility] [address] [id number] [place] [address] May, [facility] [address] [id number] [place] [address] May, [facility] [address] [id number] [place] [address] May, [facility] [address] [id number] [place] [address] Apr, [facility] [place] [facility] [address] [id number] [place] [address] Apr, [facility] [address] [id number] [place] [address] Apr, [facility] [place] [facility] [address] [id number] [place] [address] Apr, [facility] [place] [facility] [address] [id number] [place] [address] Apr, [facility] [place] [facility] [address] [facility] [id number] [place] [address] Apr, [facility] [place] [facility] [address] [id number], [place] [address] Mar, [facility] [place] [facility] [address] [id number] [place] [address] Mar, [facility] [place] [facility] [address] [id number] [place] [address] Mar, [facility] [place] [facility] [address] [facility] [id number] [place] [address] Mar, [facility] [place] [facility] [address] [id number], [place] [address] Mar, [facility] [place] [facility] [address] [facility] [id number], [place] [address] Mar, [facility] [place] [facility] [address] [facility] [id number], [place] [address] Feb, [facility] [place] [facility] [address] [facility] [id number], [place] [address] Feb, [facility] [place] [facility] [address] [id number], [place] [address] Feb, [facility] [place] [facility] [address] [id number], [place] [address] Feb, [facility] [place] [facility] [address] [facility] [id number], [place] [address] Jan, [facility] [place] [facility] [address] [facility] [id number], [place] [address] Jan, [facility] [place] [facility] [address] [id number] [place] [address] 24 Jan, 2012 [facility] [place] [facility] [address] [id number] [place] [address] 10 Jan, 2012 [facility] [place] [facility] [address] [id number] [place] [address] Dec, [facility] [place] [facility] [address] [id number] [place] [address] Dec, [facility] [place] [facility] [address] [id number] [place] [address] Nov, [facility] [place] [facility] [address] [id number] [place] [address] Oct, [facility] [place] [facility] [address] [id number] [place] [address] Oct, [facility] [place] [facility] [address] [id number] [place] [address] Oct, [facility] [place] [facility] [address] [id number] [place] [address] September, [facility] [place] [facility] [address] [id number] [place] [address] September, [facility] [place] [facility] [address] [id number] [place] [address] September, [facility] [place] [facility] [address] [id number] [place] [address] September, [facility] [place] [facility] [address] [id number] [place] [address] September, [facility] [place] [facility] [address] [id number] [place] [address] September, [facility] [place] [facility] [address] [id number] [place] [address] September, [facility] [place] [facility] [address] [id number] [place] [address] Jul, [facility] [place] [facility] [address] [id number] [place] [address] Jul, [facility] [place] [facility] [address] [id number] [place] [address] 28 Jun, 2011 [facility] [place] [facility] [address] [id number] [place] [address] Jun, [facility] [place] [facility] [address] [id number] [place] [address] Jun, [facility] [place] [facility] [address] [id number] [place] [address] May, [facility] [place] [facility] [address] [id number] [place] [address] Mar, [facility] [place] [facility] [address] [id number] [place] [address] Mar, [facility] [place] [facility] [address] [id number] [place] [address] 14 Mar, 2011 [facility] [place] [facility] [address] [id number] [place] [address] Feb, [facility] [place] [facility] [address] [id number] [place] [address] Feb, [facility] [place] [facility] [address] [id number] [place] [address] Dec, [facility] [place] [facility] [address] [id number], [place] [address] 15 May, 2009 [facility] [place] [facility] [address] [id number] [place] [address] Apr, [facility] [place] [facility] [address] [id number] [place] [address] Apr, [facility] [place] [facility] [address] [id number], [place] [address] 14 Apr, 2009 [facility] [place] [facility] [address] [id number] [place] [address] Apr, [facility] [address] [facility] [id number] [place] [address] Feb, [facility] [address] [facility] [id number], [place] [address] Oct, IMMUNIZATIONS No Known Immunizations SOCIAL HISTORY Never Assessed REASON FOR VISIT Lab (walk-in) PLAN OF CARE VITAL SIGNS MEDICATIONS Unknown Medications RESULTS Name Result Date Reference Range INR (IN HOUSE) 2017-06-26 INR 2.1 1.10 - 3.30 PREVIOUS INR 2.7 CURRENT COUMADIN DOSE 1 mg qd NEW COUMADIN DOSE Lot # [id number] Exp date 03/2018 PROCEDURES Procedure Date Ordered Result Body Site PROTHROMBIN TIME Jun 26, 2017 INSTRUCTIONS MEDICATIONS ADMINISTERED No [...] 5th toe removal 06/25/2009 Hospitalization History pneumonia, hypoxia-[facility] 11/03/16
--- OUTSIDE RECORDS SUMMARY | 2018-12-05 12:11 | XMS REPORT ---
Author Author ERIK SAMAYOA Organization [facility] Address [address] [place] [address] Care Team Providers Care Public Works Inspector Name Role Phone ERIK SAMAYOA Unavailable PROBLEMS Type Condition ICD9-CM Code ZHR63-FJ Code Onset Dates Condition Status SNOMED Code Problem Acute cystitis with hematuria N30.01 Active 95409997 Problem Major depressive disorder, single episode, unspecified F32.9 Active 65983860 Problem Congestive heart failure, unspecified congestive heart failure chronicity, unspecified congestive heart failure type I50.9 Active 52902865 Problem Chronic fatigue, unspecified R53.82 Active 965815911 Problem Mood disorder F39 Active 52528089 Problem Anticoagulant long-term use Z79.01 Active 262629759 Problem PVD (peripheral vascular disease) I73.9 Active 854662239 Problem Amput leg, unil NOS-comp S88.919A Active [id number] ALLERGIES No Information ENCOUNTERS Encounter Location Date Diagnosis [facility] [address] [address] Oct, [facility] [address] [address] Aug, Chronic fatigue, unspecified R53.82 [facility] [id number] [place] [address] Aug, Anticoagulant long-term use Z79.01 [facility] [address] [address] Aug, Nausea R11.0 and Weakness R53.1 [facility] [address] [address] Aug, [facility] [address] [address] Aug, Hematuria R31.9 and Acute cystitis with hematuria N30.01 [facility] [id number] [place] [address] Aug, [facility] [id number] [place] [address] Jul, Vitamin B 12 deficiency E53.8 [facility] [address] [address] Jul, Anticoagulant long-term use Z79.01 [facility] [id number] [place] [address] Jun, Anticoagulant long-term use Z79.01 [facility] [id number] [place] [address] Jun, Chronic fatigue, unspecified R53.82 [facility] [id number] [place] [address] May, Flu-like symptoms R68.89 and Influenza A J10.1 [facility] [id number] [place] [address] May, [facility] [id number] [place] [address] May, Chronic fatigue, unspecified R53.82 [facility] [id number] [place] [address] May, Anticoagulant long-term use Z79.01 [facility] [id number] [place] [address] 15 Apr, 2017 Medicare welcome exam Z00.00 ; Anticoagulant long-term use Z79.01 ; Medicare annual wellness visit, initial Z00.00 ; Medicare annual wellness visit, subsequent Z00.00 and Chronic fatigue, unspecified R53.82 [facility] [id number] [place] [address] Mar, Chronic fatigue, unspecified R53.82 [facility] [id number] [place] [address] Mar, Anticoagulant long-term use Z79.01 [facility] [id number] [place] [address] Mar, Anticoagulant long-term use Z79.01 and Hematuria R31.9 [facility] [id number] [place] [address] Mar, Hematuria R31.9 [facility] [id number] [place] [address] Feb, Anticoagulant long-term use Z79.01 [facility] [id number] [place] [address] Feb, Anticoagulant long-term use Z79.01 [facility] [id number] [place] [address] Feb, Anticoagulant long-term use Z79.01 [facility] [id number] [place] [address] Feb, Chronic fatigue, unspecified R53.82 [facility] [id number] [place] [address] Feb, Anticoagulant long-term use Z79.01 [facility] [id number] [place] [address] Feb, Congestive heart failure, unspecified congestive heart failure chronicity, unspecified congestive heart failure type I50.9 [facility] [id number] [place] [address] Feb, Congestive heart failure, unspecified congestive heart failure chronicity, unspecified congestive heart failure type I50.9 [facility] [id number] [place] [address] Feb, [facility] [id number] [place] [address] Jan, Anticoagulant long-term use Z79.01 [facility] [id number] [place] [address] Jan, [facility] [address] [address] Jan, Anticoagulant long-term use Z79.01 and Hematuria R31.9 [facility] [address] [address] Jan, Anticoagulant long-term use Z79.01 [facility] [address] [address] Jan, Anticoagulant long-term use Z79.01 [facility] [id number] [place] [address] Jan, Chronic fatigue, unspecified R53.82 [facility] [address] [address] Dec, Chronic fatigue, unspecified R53.82 [facility] [address] [address] Dec, [facility] [address] [address] Dec, Chronic fatigue, unspecified R53.82 and Encounter for therapeutic drug level monitoring Z51.81 [facility] [id number] [place] [address] Nov, Encounter for therapeutic drug level monitoring Z51.81 [facility] [id number] [place] [address] Nov, Hematuria R31.9 [facility] [address] [address] Nov, Hematuria R31.9 ; Anticoagulant long-term use Z79.01 and PVD (peripheral vascular disease) I73.9 [facility] [id number] [place] [address] Nov, Anticoagulant long-term use Z79.01 [facility] [id number] [place] [address] Nov, Anticoagulant long-term use Z79.01 [facility] [id number] [place] [address] Nov, [facility] [address] [address] Nov, Hematuria R31.9 and Acute cystitis with hematuria N30.01 [facility] [address] [id number] Oct, [facility] [address] [address] Oct, [facility] [address] [address] Oct, Hematuria R31.9 [facility] [address] [address] Oct, Hematuria R31.9 [facility] [address] [address] Oct, Anticoagulant long-term use Z79.01 [facility] [id number] [place] [address] Oct, Anticoagulant long-term use Z79.01 [facility] [id number] [place] [address] Oct, [facility] [id number] [place] [address] September, PVD (peripheral vascular disease) I73.9 ; Amput leg, unil NOS-comp S88.919A ; Acute cystitis without hematuria N30.00 ; Anticoagulant long-term use Z79.01 and Hypokalemia E87.6 [facility] [id number] [place] [address] Aug, Anticoagulant long-term use Z79.01 and Bronchitis J40 [facility] [address] [address] Jul, [facility] [address] [address] Jul, Anticoagulant long-term use Z79.01 and Mood disorder F39 [facility] [address] [address] Jul, [facility] [address] [address] May, [facility] [address] [address] May, Hypokalemia E87.6 [facility] [address] [address] May, Mood disorder F39 [facility] [address] [address] May, Anticoagulant long-term use Z79.01 [facility] [address] [address] Apr, Anticoagulant long-term use Z79.01 [facility] [address] [address] Apr, Anticoagulant long-term use Z79.01 [facility] [address] [address] Apr, [facility] [address] [address] Apr, Anticoagulant long-term use Z79.01 [facility] [address] [address] Apr, Anticoagulant long-term use Z79.01 [facility] [address] [address] Apr, Anticoagulant long-term use Z79.01 [facility] [id number] [place] [address] Mar, [facility] [id number] [place] [address] Mar, [facility] [id number] [place] [address] Mar, Anticoagulant long-term use Z79.01 [facility] [id number] [place] [address] Feb, [facility] [address] [address] Feb, [facility] [id number] [place] [address] Feb, Anticoagulant long-term use Z79.01 [facility] [id number] [place] [address] Feb, Anticoagulant long-term use Z79.01 [facility] [id number] [place] [address] Jan, [facility] [id number] [place] [address] Jan, Anticoagulant long-term use Z79.01 [facility] [id number] [place] [address] Jan, Anticoagulant long-term use Z79.01 [facility] [id number] [place] [address] Dec, Anticoagulant long-term use Z79.01 [facility] [id number] [place] [address] Dec, Anticoagulant long-term use Z79.01 [facility] [id number] [place] [address] Dec, Anticoagulant long-term use Z79.01 and Mood disorder F39 [facility] [address] [address] Dec, [facility] [id number] [place] [address] Nov, [facility] [id number] [place] [address] Nov, Anticoagulant long-term use Z79.01 [facility] [id number] [place] [address] Nov, Anticoagulant long-term use Z79.01 [facility] [id number] [place] [address] September, Anticoagulant long-term use Z79.01 [facility] [id number] [place] [address] Jul, Anticoagulant long-term use Z79.01 [facility] [id number] [place] [address] May, Anticoagulant long-term use Z79.01 [facility] [id number] [place] [address] May, Anticoagulant long-term use Z79.01 [facility] [id number] [place] [address] May, Anticoagulant long-term use Z79.01 [facility] [id number] [place] [address] May, Anticoagulant long-term use Z79.01 [facility] [id number] [place] [address] May, [facility] [id number] [place] [address] May, Congestive heart failure, unspecified congestive heart failure chronicity, unspecified congestive heart failure type I50.9 and Pulmonary congestion R09.89 [facility] [id number] [place] [address] Apr, Cough R05 ; Congestive heart failure, unspecified congestive heart failure chronicity, unspecified congestive heart failure type I50.9 and Pulmonary congestion R09.89 [facility] [id number] [place] [address] Mar, Hematuria R31.9 [facility] [address] [address] Mar, [facility] [address] [address] Mar, Anticoagulant long-term use Z79.01 [facility] [address] [address] Mar, [facility] [address] [address] Mar, Hematuria R31.9 and Infective urethritis N34.2 [facility] [address] [address] Mar, Anticoagulant long-term use Z79.01 [facility] [address] [address] Mar, Anticoagulant long-term use Z79.01 [facility] [id number] [place] [address] Mar, [facility] [id number] [place] [address] Mar, Anticoagulant long-term use Z79.01 [facility] [address] [address] Feb, Peristomal skin breakdown L98.499 [facility] [id number] [place] [address] Feb, [facility] [address] [address] Feb, UTI (urinary tract infection) N39.0 [facility] [id number] [address] Jan, [facility] [id number] [address] Dec, High risk medication use V58.69 [facility] [address] [address] Nov, High risk medication use V58.69 [facility] [id number] [address] Nov, [facility] [address] [place] [address] Nov, UTI (lower urinary tract infection) 599.0 ; URI, acute 465.9 ; Insomnia 780.52 ; Anxiety 300.00 and Lower limb amputation, unspecified level V49.70 [facility] [address] [address] Oct, UTI (lower urinary tract infection) 599.0 ; URI, acute 465.9 ; Insomnia 780.52 ; Anxiety 300.00 and Lower limb amputation, unspecified level V49.70 [facility] [id number] [address] Aug, [facility] [id number] [address] Aug, [facility] [id number] [address] Jul, [facility] [id number] [address] Jul, [facility] [address] [address] Jun, [facility] [id number] [address] Jun, [facility] [place] [facility] [address] [id number] [place] [address] Mar, [facility] [place] [facility] [address] [id number] [place] [address] Mar, [facility] [place] [facility] [address] [id number] [place] [address] Mar, [facility] [place] [facility] [address] [id number] [place] [address] Mar, [facility] [place] [facility] [address] [id number] [place] [address] Mar, [facility] [place] [facility] [address] [id number] [place] [address] Feb, [facility] [place] [facility] [address] [id number] [place] [address] Feb, [facility] [place] [facility] [address] [id number] [place] [address] Feb, [facility] [place] [facility] [address] [id number] [place] [address] Feb, [facility] [place] [facility] [address] [id number] [place] [address] Feb, [facility] [place] [facility] [address] [id number] [place] [address] Feb, [facility] [place] [facility] [address] [id number] [place] [address] Feb, [facility] [place] [facility] [address] [id number] [place] [address] Feb, [facility] [place] [facility] [address] [id number] [place] [address] Feb, [facility] [place] [facility] [address] [id number] [place] [address] Feb, [facility] [place] [facility] [address] [id number] [place] [address] Feb, [facility] [place] [facility] [address] [id number] [place] [address] Feb, [facility] [place] [facility] [address] [id number] [place] [address] Feb, [facility] [place] [facility] [address] [id number] [place] [address] Feb, [facility] [place] [facility] [address] [id number] [place] [address] Feb, [facility] [place] [facility] [address] [id number] [place] [address] Feb, [facility] [place] [facility] [address] [id number] [place] [address] Jan, [facility] [place] [facility] [address] [id number] [place] [address] Jan, [facility] [place] [facility] [address] [id number] [place] [address] Jan, [facility] [place] [facility] [address] [id number] [place] [address] Jan, [facility] [place] [facility] [address] [id number] [place] [address] Jan, [facility] [place] [facility] [address] [id number] [address] Nov, [facility] [place] [facility] [address] [id number] [place] [address] Nov, [facility] [place] [facility] [address] [id number] [place] [address] Nov, [facility] [place] [facility] [address] [id number] [place] [address] Nov, [facility] [place] [facility] [address] [id number] [place] [address] Nov, [facility] [place] [facility] [address] [id number] [place] [address] Nov, [facility] [place] [facility] [address] [id number] [place] [address] Oct, [facility] [place] [facility] [address] [id number] [place] [address] Oct, [facility] [place] [facility] [address] [id number] [place] [address] Oct, [facility] [place] [facility] [address] [id number] [place] [address] Oct, [facility] [place] [facility] [address] [id number] [place] [address] Oct, [facility] [place] [facility] [address] [id number] [place] [address] Oct, [facility] [place] [facility] [address] [id number] [place] [address] Oct, [facility] [place] [facility] [address] [id number] [place] [address] September, [facility] [place] [facility] [address] [id number] [place] [address] September, [facility] [place] [facility] [address] [id number] [place] [address] September, [facility] [place] [facility] [address] [id number] [place] [address] September, [facility] [place] [facility] [address] [id number] [place] [address] September, [facility] [place] [facility] [address] [id number] [place] [address] September, [facility] [place] [facility] [address] [id number] [place] [address] September, [facility] [place] [facility] [address] [id number] [place] [address] September, [facility] [place] [facility] [address] [id number] [place] [address] Aug, [facility] [place] [facility] [address] [id number] [place] [address] Aug, [facility] [place] [facility] [address] [id number] [place] [address] Aug, [facility] [place] [facility] [address] [id number] [place] [address] Aug, [facility] [place] [facility] [address] [id number] [place] [address] Jul, [facility] [place] [facility] [address] [id number] [place] [address] Jul, [facility] [place] [facility] [address] [id number] [place] [address] Jun, [facility] [place] [facility] [address] [id number] [place] [address] Jun, [facility] [place] [facility] [address] [id number] [place] [address] Jun, [facility] [place] [facility] [address] [id number] [place] [address] Jun, [facility] [place] [facility] [address] [id number] [place] [address] Jun, [facility] [place] [facility] [address] [id number] [place] [address] Jun, [facility] [place] [facility] [address] [id number] [place] [address] May, [facility] [place] [facility] [address] [id number] [place] [address] May, [facility] [place] [facility] [address] [id number] [place] [address] May, [facility] [place] [facility] [address] [id number] [place] [address] May, [facility] [place] [facility] [address] [id number] [place] [address] May, [facility] [place] [facility] [address] [id number] [place] [address] May, [facility] [place] [facility] [address] [id number] [place] [address] Feb, [facility] [place] [facility] [address] [id number] [place] [address] Feb, [facility] [place] [facility] [address] [id number] [place] [address] Feb, [facility] [place] [facility] [address] [id number] [place] [address] Feb, [facility] [place] [facility] [address] [id number] [place] [address] Jan, [facility] [place] [facility] [address] [id number] [place] [address] Jan, [facility] [place] [facility] [address] [id number] [place] [address] Jan, [facility] [place] [facility] [address] [id number] [place] [address] Dec, [facility] [place] [facility] [address] [id number] [place] [address] Nov, [facility] [place] [facility] [address] [id number] [place] [address] Nov, [facility] [place] [facility] [address] [id number] [place] [address] Nov, [facility] [place] [facility] [address] [id number] [place] [address] Nov, [facility] [place] [facility] [address] [id number] [place] [address] Nov, [facility] [place] [facility] [address] [id number] [place] [address] Oct, [facility] [address] [id number] [place] [address] September, [facility] [address] [id number] [place] [address] September, [facility] [address] [id number] [place] [address] Aug, [facility] [address] [id number] [place] [address] Aug, [facility] [address] [id number] [place] [address] Jul, [facility] [address] [id number] [place] [address] Jul, [facility] [address] [id number] [place] [address] Jul, [facility] [address] [id number] [place] [address] Jul, [facility] [address] [id number] [place] [address] Jun, [facility] [address] [id number] [place] [address] Jun, [facility] [address] [id number] [place] [address] Jun, [facility] [address] [id number] [place] [address] May, [facility] [place] [facility] [address] [id number] [place] [address] May, [facility] [place] [facility] [address] [id number] [place] [address] May, [facility] [address] [id number] [address] May, [facility] [place] [facility] [address] [id number] [place] [address] Apr, [facility] [place] [facility] [address] [id number] [place] [address] Apr, [facility] [place] [facility] [address] [id number] [place] [address] Apr, [facility] [place] [facility] [address] [id number] [place] [address] Apr, [facility] [place] [facility] [address] [id number] [place] [address] Apr, [facility] [place] [facility] [address] [id number] [place] [address] Apr, [facility] [place] [facility] [address] [id number] [place] [address] Mar, [facility] [place] [facility] [address] [id number] [place] [address] Mar, [facility] [place] [facility] [address] [id number] [place] [address] Mar, [facility] [place] [facility] [address] [id number] [place] [address] Mar, [facility] [place] [facility] [address] [id number] [place] [address] Mar, [facility] [place] [facility] [address] [id number] [place] [address] Mar, [facility] [place] [facility] [address] [id number] [place] [address] Feb, [facility] [place] [facility] [address] [id number] [place] [address] Feb, [facility] [place] [facility] [address] [id number] [place] [address] Feb, [facility] [place] [facility] [address] [id number] [place] [address] Feb, [facility] [address] [id number] [place] [address] Jan, [facility] [place] [facility] [address] [id number] [place] [address] Jan, [facility] [address] [id number] [place] [address] Jan, [facility] [place] [facility] [address] [id number] [place] [address] Jan, [facility] [address] [id number] [place] [address] Dec, [facility] [place] [facility] [address] [id number] [place] [address] Dec, [facility] [address] [id number] [place] [address] Nov, [facility] [address] [id number] [place] [address] Oct, [facility] [place] [facility] [address] [id number] [place] [address] Oct, [facility] [address] [id number] [place] [address] Oct, [facility] [place] [facility] [address] [id number] [place] [address] September, [facility] [address] [id number] [place] [address] September, [facility] [place] [facility] [address] [id number] [place] [address] September, [facility] [place] [facility] [address] [id number] [place] [address] September, [facility] [place] [facility] [address] [id number] [place] [address] September, [facility] [place] [facility] [address] [id number] [place] [address] September, [facility] [place] [facility] [address] [id number] [place] [address] September, [facility] [place] [facility] [address] [id number] [place] [address] Jul, [facility] [place] [facility] [address] [id number] [place] [address] Jul, [facility] [place] [facility] [address] [id number] [place] [address] Jun, [facility] [place] [facility] [address] [id number] [place] [address] Jun, [facility] [place] [facility] [address] [id number] [place] [address] Jun, [facility] [place] [facility] [address] [id number] [place] [address] May, [facility] [place] [facility] [address] [id number] [place] [address] Mar, [facility] [place] [facility] [address] [id number] [place] [address] Mar, [facility] [place] [facility] [address] [id number] [place] [address] Mar, [facility] [place] [facility] [address] [id number] [place] [address] Feb, [facility] [place] [facility] [address] [id number] [place] [address] Feb, [facility] [place] [facility] [address] [id number] [place] [address] Dec, [facility] [place] [facility] [address] [id number] [place] [address] 15 May, 2009 [facility] [place] [facility] [address] [facility] [id number] [address] 29 Apr, 2009 [facility] [address] [id number] [address] Apr, [facility] [address] [id number] [address] Apr, [facility] [address] [id number] [address] Apr, [facility] [address] [id number] [address] Feb, [facility] [address] [id number] [address] Oct, IMMUNIZATIONS No Known Immunizations SOCIAL HISTORY Never Assessed REASON FOR VISIT requesting return call back. PLAN OF CARE VITAL SIGNS MEDICATIONS Unknown [...]
--- OUTSIDE RECORDS SUMMARY | 2018-12-05 12:12 | XMS REPORT ---
Author Author ERIK SAMAYOA Organization [facility] Address [address] [place] [address] Care Team Providers Care Chief Librarian Branch Name Role Phone DANITA ERIK Unavailable PROBLEMS Type Condition ICD9-CM Code LKA44-EV Code Onset Dates Condition Status SNOMED Code Problem Chronic fatigue, unspecified R53.82 Active 321411048 Problem PVD (peripheral vascular disease) I73.9 Active 586074284 Problem Anticoagulant long-term use Z79.01 Active 971372120 Problem Major depressive disorder, single episode, unspecified F32.9 Active 99095993 Problem Amput leg, unil NOS-comp S88.919A Active 51919883 Problem Mood disorder F39 Active 07289182 ALLERGIES No Known Allergies SOCIAL HISTORY No smoking Hx information available PLAN OF CARE Activity Details Follow Up 2 Weeks Reason: VITAL SIGNS MEDICATIONS Unknown Medications RESULTS Name Result Date Reference Range INR (IN HOUSE) 2016-05-03 INR 1.8 1.10 - 3.30 PREVIOUS INR 2.2 CURRENT COUMADIN DOSE 1 mg daily NEW COUMADIN DOSE 1 mg Tues, Th, Sat/2 mg Mon, Wed, Fri, and Sun. Lot # [id number] Exp date PROCEDURES Procedure Date Ordered Related Diagnosis Body Site PROTHROMBIN TIME May 03, 2016 IMMUNIZATIONS No Known Immunizations
--- OUTSIDE RECORDS SUMMARY | 2018-12-05 12:12 | XMS REPORT ---
Author Author ERIK SAMAYOA Organization [facility] [place] Address [address] [place] [address] Care Team Providers Care Skein Yarn Dyer Helper Name Role Phone ERIK SAMAYOA Unavailable PROBLEMS Type Condition ICD9-CM Code GSN47-CD Code Onset Dates Condition Status SNOMED Code Problem Acute cystitis with hematuria N30.01 Active 84212112 Problem Major depressive disorder, single episode, unspecified F32.9 Active 89913333 Problem Congestive heart failure, unspecified congestive heart failure chronicity, unspecified congestive heart failure type I50.9 Active 84812875 Problem Chronic fatigue, unspecified R53.82 Active 889265888 Problem Mood disorder F39 Active 42362808 Problem Anticoagulant long-term use Z79.01 Active 079125611 Problem PVD (peripheral vascular disease) I73.9 Active 967709205 Problem Amput leg, unil NOS-comp S88.919A Active 23669338 ALLERGIES No Information ENCOUNTERS Encounter Location Date Diagnosis [place] [address] [address] Aug, [place] [address] [address] Jul, Vitamin B 12 deficiency E53.8 [place] [address] [address] Jul, Anticoagulant long-term use Z79.01 [place] [address] [address] Jun, Chronic fatigue, unspecified R53.82 [place] [address] [address] Jun, Anticoagulant long-term use Z79.01 [place] [address] [address] May, Flu-like symptoms R68.89 and Influenza A J10.1 [place] [address] [place] [id number] [place] [address] May, [place] [address] [place] [id number] [place] [address] May, Chronic fatigue, unspecified R53.82 [place] [address] [place] [id number] [place] [address] May, Anticoagulant long-term use Z79.01 [place] [address] [place] [id number] [place] [address] Apr, Medicare welcome exam Z00.00 ; Anticoagulant long-term use Z79.01 ; Medicare annual wellness visit, initial Z00.00 ; Medicare annual wellness visit, subsequent Z00.00 and Chronic fatigue, unspecified R53.82 [place] [address] [place] [id number] [place] [address] Mar, Chronic fatigue, unspecified R53.82 [place] [address] [place] [id number] [place] [address] Mar, Anticoagulant long-term use Z79.01 [place] [address] [place] [id number] [place] [address] Mar, Anticoagulant long-term use Z79.01 and Hematuria R31.9 [place] [address] [place] [id number] [place] [address] Mar, Hematuria R31.9 [place] [address] [place] [id number] [place] [address] Feb, Anticoagulant long-term use Z79.01 [place] [address] [place] [id number] [place] [address] Feb, Anticoagulant long-term use Z79.01 [place] [address] [place] [id number] [place] [address] Feb, Anticoagulant long-term use Z79.01 [facility] [place] [address], [place] [address] Feb, Chronic fatigue, unspecified R53.82 [place] [address] [place] [id number] [place] [address] Feb, Anticoagulant long-term use Z79.01 [place] [address] [place] [id number] [place] [address] Feb, Congestive heart failure, unspecified congestive heart failure chronicity, unspecified congestive heart failure type I50.9 [place] [address] [place] [id number] [place] [address] Feb, Congestive heart failure, unspecified congestive heart failure chronicity, unspecified congestive heart failure type I50.9 [place] [address] [place] [id number] [place] [address] Feb, [place] [address] [place] [id number] [place] [address] Jan, Anticoagulant long-term use Z79.01 [place] [address] [place] [id number] [place] [address] Jan, [place] [address] [place] [id number] [place] [address] Jan, Anticoagulant long-term use Z79.01 and Hematuria R31.9 [place] [address] [place] [id number] [place] [address] Jan, Anticoagulant long-term use Z79.01 [place] [address] [place] [id number] [place] [address] Jan, Chronic fatigue, unspecified R53.82 [place] [address] [place] [id number] [place] [address] Jan, Anticoagulant long-term use Z79.01 [place] [address] [place] [id number] [place] [address] Dec, Chronic fatigue, unspecified R53.82 [facility] [place] [id number] [place] [address] Dec, [facility] [place] [address] [place] [id number] [place] [address] Dec, Chronic fatigue, unspecified R53.82 and Encounter for therapeutic drug level monitoring Z51.81 [facility] [place] [address] [place] [id number] [place] [address] Nov, Encounter for therapeutic drug level monitoring Z51.81 [facility] [place] [address] [place] [id number] [place] [address] Nov, Hematuria R31.9 [facility] [place] [address] [place] [id number] [place] [address] Nov, Hematuria R31.9 ; Anticoagulant long-term use Z79.01 and PVD (peripheral vascular disease) I73.9 [facility] [place] [address] [place] [id number] [place] [address] Nov, Anticoagulant long-term use Z79.01 [facility] [place] [address] [place] [id number] [place] [address] Nov, Anticoagulant long-term use Z79.01 [facility] [place] [address] [place] [id number] [place] [address] Nov, [facility] [place] [address] [place] [id number] [place] [address] Nov, Hematuria R31.9 and Acute cystitis with hematuria N30.01 [facility] [address] [place] [id number] [place] [id number] Oct, [facility] [place] [address] [place] [id number] [place] [address] Oct, [facility] [place] [address] [place] [id number] [place] [address] Oct, Hematuria R31.9 [place] [address] [place] [id number] [place] [address] Oct, Hematuria R31.9 [place] [address] [address] Oct, Anticoagulant long-term use Z79.01 [place] [address] [address] Oct, Anticoagulant long-term use Z79.01 [place] [address] [address] Oct, [place] [address] [address] September, PVD (peripheral vascular disease) I73.9 ; Amput leg, unil NOS-comp S88.919A ; Acute cystitis without hematuria N30.00 ; Anticoagulant long-term use Z79.01 and Hypokalemia E87.6 [place] [address] [address] Aug, Anticoagulant long-term use Z79.01 and Bronchitis J40 [place] [address] [address] Jul, [place] [address] [address] Jul, Anticoagulant long-term use Z79.01 and Mood disorder F39 [place] [address] [place] [id number] [place] [address] Jul, [place] [address] [address] May, [place] [address] [address] May, Hypokalemia E87.6 [place] [address] [address] May, Mood disorder F39 [place] [address] [place] [id number] [place] [address] May, Anticoagulant long-term use Z79.01 [facility] [place] [address] [place] [id number] [place] [address] Apr, Anticoagulant long-term use Z79.01 [facility] [place] [address] [place] [id number] [place] [address] Apr, Anticoagulant long-term use Z79.01 [facility] [place] [address] [place] [id number] [place] [address] Apr, [facility] [place] [address] [address] Apr, Anticoagulant long-term use Z79.01 [facility] [place] [address] [place] [id number] [place] [address] Apr, Anticoagulant long-term use Z79.01 [facility] [place] [address] [place] [id number] [place] [address] Apr, Anticoagulant long-term use Z79.01 [facility] [place] [address] [place] [id number] [place] [address] Mar, [facility] [place] [address] [place] [id number] [place] [address] Mar, [facility] [place] [address] [place] [id number] [place] [address] Mar, Anticoagulant long-term use Z79.01 [facility] [place] [address] [place] [id number] [place] [address] Feb, [facility] [place] [address] [address] Feb, [facility] [place] [address] [place] [id number] [place] [address] Feb, Anticoagulant long-term use Z79.01 [facility] [place] [address] [place] [address] Feb, Anticoagulant long-term use Z79.01 [facility] [place] [address] [place] [id number] [place] [address] Jan, [facility] [place] [address] [address] Jan, Anticoagulant long-term use Z79.01 [facility] [place] [address] [address] Jan, Anticoagulant long-term use Z79.01 [facility] [place] [address] [place] [id number] [place] [address] Dec, Anticoagulant long-term use Z79.01 [facility] [place] [address] [place] [id number] [place] [address] Dec, Anticoagulant long-term use Z79.01 [facility] [place] [address] [address] Dec, Anticoagulant long-term use Z79.01 and Mood disorder F39 [facility] [place] [address] [place] [id number] [place] [address] Dec, [facility] [place] [address] [place] [id number] [place] [address] Nov, [facility] [place] [address] [place] [id number] [place] [address] Nov, Anticoagulant long-term use Z79.01 [facility] [place] [address] [place] [id number] [place] [address] Nov, Anticoagulant long-term use Z79.01 [facility] [place] [address] [address] September, Anticoagulant long-term use Z79.01 [facility] [place] [address] [place] [id number] [place] [address] Jul, Anticoagulant long-term use Z79.01 [facility] [place] [address] [place] [id number] [place] [address] May, Anticoagulant long-term use Z79.01 [facility] [place] [address] [place] [id number] [place] [address] May, Anticoagulant long-term use Z79.01 [facility] [place] [address] [place] [id number] [place] [address] May, Anticoagulant long-term use Z79.01 [place] [address] [place] [id number] [place] [address] May, Anticoagulant long-term use Z79.01 [place] [address] [address] May, [place] [address] [place] [id number] [place] [address] May, Congestive heart failure, unspecified congestive heart failure chronicity, unspecified congestive heart failure type I50.9 and Pulmonary congestion R09.89 [place] [address] [place] [id number] [place] [address] Apr, Cough R05 ; Congestive heart failure, unspecified congestive heart failure chronicity, unspecified congestive heart failure type I50.9 and Pulmonary congestion R09.89 [place] [address] [place] [id number] [place] [address] Mar, Hematuria R31.9 [place] [address] [place] [id number] [place] [address] Mar, [place] [address] [place] [id number] [place] [address] Mar, Anticoagulant long-term use Z79.01 [place] [address] [place] [id number] [place] [address] Mar, [place] [address] [place] [id number] [place] [address] Mar, Hematuria R31.9 and Infective urethritis N34.2 [facility] [place] [address], [place] [address] Mar, Anticoagulant long-term use Z79.01 [facility] [place] [id number] [place] [address] Mar, Anticoagulant long-term use Z79.01 [facility] [place] [id number] [place] [address] Mar, [facility] [place] [address] [place] [id number] [place] [address] Mar, Anticoagulant long-term use Z79.01 [facility] [place] [address] [place] [id number] [place] [address] Feb, Peristomal skin breakdown L98.499 [facility] [place] [address] [place] [id number] [place] [address] Feb, [facility] [place] [address] [place] [id number] [place] [address] Feb, UTI (urinary tract infection) N39.0 [facility] [place] [id number] [place] [address] Jan, [facility] [place] [id number] [place] [address] Dec, High risk medication use V58.69 [place] [id number] [place] [address] Nov, High risk medication use V58.69 [place] [id number] [place] [address] Nov, [facility] [place] [id number] [place] [address] Nov, UTI (lower urinary tract infection) 599.0 ; URI, acute 465.9 ; Insomnia 780.52 ; Anxiety 300.00 and Lower limb amputation, unspecified level V49.70 [place] [address], [place] [address] 10 Oct, 2014 UTI (lower urinary tract infection) 599.0 ; URI, acute 465.9 ; Insomnia 780.52 ; Anxiety 300.00 and Lower limb amputation, unspecified level V49.70 [facility] [place] [address] [facility] [id number], [place] [address] 14 Aug, 2014 [facility] [place] [address] [facility] [id number] [place] [address] Aug, [facility] [place] [address] [facility] [id number], [place] [address] Jul, [facility] [place] [address] [place] [id number] [place] [address] Jul, [facility] [place] [address], [place] [address] Jun, [facility] [place] [address] [place] [id number] [place] [address] Jun, [facility] [place] [address] [place] [id number] [address] Mar, [facility] [place] [address], [place] [address] Mar, [facility] [place] [address] [place] [id number] [address] Mar, [facility] [place] [address] [facility] [id number], [place] [address] Mar, [facility] [place] [address] [facility] [id number], [place] [address] Mar, [facility] [place] [address] [place] [id number], [place] [address] Feb, [facility] [place] [address] [place] [id number], [place] [address] Feb, [facility] [place] [address] [place] [id number], [place] [address] Feb, [facility] [place] [facility] [address] [id number] [place] [address] Feb, [facility] [place] [facility] [address] [id number] [place] [address] Feb, [facility] [place] [facility] [address] [id number] [place] [address] Feb, [facility] [place] [facility] [address] [id number] [place] [address] Feb, [facility] [place] [facility] [address] [id number] [place] [address] Feb, [facility] [place] [facility] [address] [id number] [place] [address] Feb, [facility] [place] [facility] [address] [id number] [place] [address] Feb, [facility] [place] [facility] [address] [id number] [place] [address] Feb, [facility] [place] [facility] [address] [id number] [place] [address] Feb, [facility] [place] [facility] [address] [id number] [place] [address] Feb, [facility] [place] [facility] [address] [id number], [place] [address] Feb, [facility] [place] [facility] [address] [id number], [place] [address] Feb, [facility] [place] [facility] [address] [id number] [place] [address] Feb, [facility] [place] [facility] [address] [id number], [place] [address] 28 Jan, 2014 [facility] [place] [facility] [address] [id number] [place] [address] 26 Jan, 2014 [facility] [place] [facility] [address] [id number] [place] [address] Jan, 2013 [facility] [place] [facility] [address] [id number] [place] [address] Jan, [facility] [place] [facility] [address] [id number] [facility] [place] [address] Jan, [facility] [place] [facility] [address] [id number] [place] [address] Nov, [facility] [place] [facility] [address] [id number] [place] [address] Nov, [facility] [place] [facility] [address] [id number] [place] [address] Nov, [facility] [place] [facility] [address] [id number] [place] [address] Nov, [facility] [place] [facility] [address] [id number] [place] [address] Nov, [facility] [place] [facility] [address] [id number] [place] [address] Nov, [facility] [place] [facility] [address] [id number] [place] [address] Oct, [facility] [place] [facility] [address] [id number] [place] [address] Oct, [facility] [place] [facility] [address] [id number] [place] [address] Oct, [facility] [place] [facility] [address] [id number] [place] [address] Oct, [facility] [place] [facility] [address] [id number] [place] [address] Oct, [facility] [place] [facility] [address] [id number] [place] [address] Oct, [facility] [place] [facility] [address] [id number] [place] [address] Oct, [facility] [place] [facility] [address] [id number] [place] [address] September, [facility] [place] [facility] [address] [id number] [place] [address] September, [facility] [place] [facility] [address] [id number] [place] [address] September, [facility] [place] [facility] [address] [id number] [place] [address] September, [facility] [place] [facility] [address] [id number] [place] [address] September, [facility] [place] [facility] [address] [id number] [place] [address] September, [facility] [place] [facility] [address] [id number] [place] [address] September, [facility] [place] [facility] [address] [id number] [place] [address] September, [facility] [place] [facility] [address] [id number] [place] [address] Aug, [facility] [place] [facility] [address] [id number] [place] [address] Aug, [facility] [place] [facility] [address] [id number] [place] [address] Aug, [facility] [place] [facility] [address] [id number] [place] [address] Aug, [facility] [place] [facility] [address] [id number] [place] [address] Jul, [facility] [place] [facility] [address] [id number] [place] [address] Jul, [facility] [place] [facility] [address] [id number] [place] [address] Jun, [facility] [place] [facility] [address] [id number] [place] [address] Jun, [facility] [place] [facility] [address] [id number] [place] [address] Jun, [facility] [place] [facility] [address] [id number] [place] [address] Jun, [facility] [place] [facility] [address] [id number] [place] [address] Jun, [facility] [place] [facility] [address] [id number] [place] [address] Jun, [facility] [place] [facility] [address] [id number] [place] [address] May, [facility] [place] [facility] [address] [id number] [place] [address] May, [facility] [place] [facility] [address] [id number] [place] [address] May, [facility] [place] [facility] [address] [id number] [place] [address] May, [facility] [place] [facility] [address] [id number] [place] [address] May, [facility] [place] [facility] [address] [id number] [place] [address] May, [facility] [place] [facility] [address] [id number] [place] [address] Feb, [facility] [place] [facility] [address] [id number], [place] [address] Feb, [facility] [place] [facility] [address] [id number] [place] [address] Feb, [facility] [place] [facility] [address] [id number] [place] [address] Feb, [facility] [place] [facility] [address] [id number] [place] [address] Jan, [facility] [address] [id number] [place] [address] Jan, [facility] [place] [facility] [address] [id number] [place] [address] Jan, [facility] [place] [facility] [address] [id number] [place] [address] Dec, [facility] [place] [facility] [address] [id number] [place] [address] Nov, [facility] [address] [id number] [place] [address] Nov, [facility] [place] [facility] [address] [id number] [place] [address] Nov, [facility] [facility] [address] [id number] [place] [address] Nov, [facility] [place] [facility] [address] [id number] [place] [address] Nov, [facility] [place] [facility] [address] [id number] [place] [address] Oct, [facility] [place] [facility] [address] [id number] [place] [address] September, [facility] [place] [facility] [address] [id number] [place] [address] September, [facility] [place] [facility] [address] [id number] [place] [address] Aug, [facility] [place] [facility] [address] [id number] [place] [address] Aug, [facility] [place] [facility] [address] [id number] [place] [address] Jul, [facility] [place] [facility] [address] [id number] [place] [address] Jul, [facility] [place] [facility] [address] [id number] [place] [address] 08 Jul, 2012 [facility] [address] [id number] [place] [address] Jul, [facility] [place] [facility] [address] [id number] [place] [address] Jun, [facility] [address] [id number] [place] [address] Jun, [facility] [place] [facility] [address] [id number] [place] [address] Jun, [facility] [address] [id number] [place] [address] May, [facility] [address] [id number] [place] [address] May, [facility] [address] [id number] [place] [address] May, [facility] [address] [id number] [place] [address] May, [facility] [address] [id number] [place] [address] Apr, [facility] [address] [id number] [place] [address] Apr, [facility] [address] [id number] [place] [address] Apr, [facility] [address] [id number] [place] [address] 05 Apr, 2012 [facility] [facility] [address] [id number] [place] [address] Apr, [facility] [address] [id number] [place] [address] Apr, [facility] [address] [id number] [place] [address] Mar, [facility] [address] [id number] [place] [address] Mar, [facility] [place] [facility] [address] [id number] [place] [address] Mar, [facility] [facility] [address] [id number] [place] [address] Mar, [facility] [place] [facility] [address] [id number] [place] [address] Mar, [facility] [place] [facility] [address] [id number] [place] [address] Mar, [facility] [place] [facility] [address] [id number] [place] [address] Feb, [facility] [place] [facility] [address] [id number] [place] [address] Feb, [facility] [place] [facility] [address] [id number] [place] [address] Feb, [facility] [place] [facility] [address] [id number] [place] [address] Feb, [facility] [place] [facility] [address] [id number] [place] [address] Jan, [facility] [facility] [address] [id number] [place] [address] Jan, [facility] [facility] [address] [id number] [place] [address] 24 Jan, 2012 [facility] [facility] [address] [id number] [place] [address] 10 Jan, 2012 [facility] [facility] [address] [id number] [place] [address] Dec, [facility] [place] [facility] [address] [id number] [place] [address] Dec, [facility] [facility] [address] [id number] [place] [address] Nov, [facility] [facility] [address] [id number] [place] [address] Oct, [facility] [address] [id number] [place] [address] Oct, [facility] [address] [id number] [place] [address] Oct, [facility] [address] [id number] [place] [address] September, [facility] [address] [id number] [place] [address] September, [facility] [address] [id number] [place] [address] September, [facility] [address] [id number] [place] [address] September, [facility] [address] [id number] [place] [address] September, [facility] [address] [id number] [place] [address] September, [facility] [address] [id number] [place] [address] September, [facility] [address] [id number] [place] [address] Jul, [facility] [address] [id number] [place] [address] Jul, [facility] [address] [id number] [place] [address] Jun, [facility] [address] [id number] [place] [address] Jun, [facility] [address] [id number] [place] [address] Jun, [facility] [id number], [place] [address] 10 May, 2011 [facility] [place] [id number], [place] [address] Mar, [facility] [place] [id number], [place] [address] Mar, [facility] [place] [id number], [place] [address] Mar, [facility] [place] [address] [facility] [id number] [address] Feb, [facility] [place] [id number] [place] [address] Feb, [facility] [place] [id number], [place] [address] Dec, [facility] [place] [id number] [place] [address] May, [facility] [place] [id number], [place] [address] Apr, [facility] [place] [id number], [place] [address] Apr, [facility] [place] [id number], [place] [address] Apr, [facility] [place] [id number] [address] Apr, [facility] [place] [id number] [address] Feb, [facility] [place] [id number], [place] [address] Oct, IMMUNIZATIONS No Known Immunizations SOCIAL HISTORY Never Assessed REASON FOR VISIT PLAN OF CARE VITAL SIGNS MEDICATIONS Medication Instructions Dosage Frequency Start Date End Date Duration Status Levaquin 500 mg Orally Once a day 1 tablet 24h Nov, Nov, 07 days Active RESULTS No Results PROCEDURES No [...]
--- OUTSIDE RECORDS SUMMARY | 2018-12-05 12:13 | XMS REPORT ---
Author Author ERIK SAMAYOA Organization [facility] Address [address] [place] [address] Care Team Providers Care Bus And Trolley Dispatcher Name Role Phone ERIK SAMAYOA Unavailable PROBLEMS Type Condition ICD9-CM Code TAF26-JF Code Onset Dates Condition Status SNOMED Code Problem Acute cystitis with hematuria N30.01 Active 67271119 Problem Major depressive disorder, single episode, unspecified F32.9 Active 90145411 Problem Congestive heart failure, unspecified congestive heart failure chronicity, unspecified congestive heart failure type I50.9 Active 92915708 Problem Chronic fatigue, unspecified R53.82 Active 718270439 Problem Mood disorder F39 Active 02176413 Problem Anticoagulant long-term use Z79.01 Active 020670141 Problem PVD (peripheral vascular disease) I73.9 Active 078731112 Problem Amput leg, unil NOS-comp S88.919A Active 11035014 ALLERGIES Substance Reaction Event Type Date Status Penicillin V Potassium Unknown Drug Allergy Dec, Active Morphine Sulfate Unknown Drug Allergy Dec, Active Codeine Sulfate Unknown Drug Allergy Dec, Active Aspir-81 Unknown Drug Allergy Dec, Active ENCOUNTERS Encounter Location Date Diagnosis [facility] [id number] [place] [address] Aug, Nausea R11.0 and Weakness R53.1 [facility] [address] [place] [address] Aug, [facility] [id number] [place] [address] Aug, Hematuria R31.9 and Acute cystitis with hematuria N30.01 [facility] [id number] [place] [address] Aug, [facility] [id number] [place] [address] Jul, Vitamin B 12 deficiency E53.8 [facility] [id number] [place] [address] Jul, Anticoagulant long-term use Z79.01 [facility] [id number] [place] [address] Jun, Chronic fatigue, unspecified R53.82 [facility] [id number] [place] [address] Jun, Anticoagulant long-term use Z79.01 [facility] [address] [address] May, Flu-like symptoms R68.89 and Influenza A J10.1 [facility] [id number] [place] [address] May, [facility] [address] [address] May, Chronic fatigue, unspecified R53.82 [facility] [id number] [place] [address] May, Anticoagulant long-term use Z79.01 [facility] [id number] [place] [address] Apr, Medicare welcome exam Z00.00 ; Anticoagulant long-term use Z79.01 ; Medicare annual wellness visit, initial Z00.00 ; Medicare annual wellness visit, subsequent Z00.00 and Chronic fatigue, unspecified R53.82 [facility] [id number] [place] [address] 15 Mar, 2017 Chronic fatigue, unspecified R53.82 [facility] [id number] [place] [address] 07 Mar, 2017 Anticoagulant long-term use Z79.01 [facility] [id number] [place] [address] Mar, Anticoagulant long-term use Z79.01 and Hematuria R31.9 [facility] [address] [address] Mar, Hematuria R31.9 [facility] [id number] [place] [address] Feb, Anticoagulant long-term use Z79.01 [facility] [id number] [place] [address] Feb, Anticoagulant long-term use Z79.01 [facility] [id number] [place] [address] Feb, Anticoagulant long-term use Z79.01 [facility] [id number] [place] [address] Feb, Chronic fatigue, unspecified R53.82 [facility] [id number] [place] [address] Feb, Anticoagulant long-term use Z79.01 [facility] [address] [place] [address] Feb, Congestive heart failure, unspecified congestive heart failure chronicity, unspecified congestive heart failure type I50.9 [facility] [address] [address] Feb, Congestive heart failure, unspecified congestive heart failure chronicity, unspecified congestive heart failure type I50.9 [facility] [address] [address] Feb, [facility] [id number] [place] [address] Jan, Anticoagulant long-term use Z79.01 [facility] [address] [address] Jan, [facility] [id number] [place] [address] Jan, Anticoagulant long-term use Z79.01 and Hematuria R31.9 [facility] [id number] [place] [address] Jan, Anticoagulant long-term use Z79.01 [facility] [id number] [place] [address] Jan, Chronic fatigue, unspecified R53.82 [facility] [address] [address] Jan, Anticoagulant long-term use Z79.01 [facility] [id number] [place] [address] Dec, Chronic fatigue, unspecified R53.82 [facility] [id number] [place] [address] Dec, [facility] [address] [address] Dec, Chronic fatigue, unspecified R53.82 and Encounter for therapeutic drug level monitoring Z51.81 [facility] [id number] [place] [address] Nov, Encounter for therapeutic drug level monitoring Z51.81 [facility] [id number] [place] [address] Nov, Hematuria R31.9 [facility] [id number] [place] [address] Nov, Hematuria R31.9 ; Anticoagulant long-term use Z79.01 and PVD (peripheral vascular disease) I73.9 [facility] [id number] [place] [address] Nov, Anticoagulant long-term use Z79.01 [facility] [id number] [place] [address] Nov, Anticoagulant long-term use Z79.01 [facility] [id number] [place] [address] Nov, [facility] [id number] [place] [address] Nov, Hematuria R31.9 and Acute cystitis with hematuria N30.01 [facility] [address] [id number] Oct, [facility] [address] [address] Oct, [facility] [address] [address] Oct, Hematuria R31.9 [facility] [address] [address] Oct, Hematuria R31.9 [facility] [address] [address] Oct, Anticoagulant long-term use Z79.01 [facility] [address] [address] Oct, Anticoagulant long-term use Z79.01 [facility] [address] [address] Oct, [facility] [id number] [place] [address] September, PVD (peripheral vascular disease) I73.9 ; Amput leg, unil NOS-comp S88.919A ; Acute cystitis without hematuria N30.00 ; Anticoagulant long-term use Z79.01 and Hypokalemia E87.6 [facility] [address] [address] Aug, Anticoagulant long-term use Z79.01 and Bronchitis J40 [facility] [id number] [place] [address] Jul, [facility] [address] [address] Jul, Anticoagulant long-term use Z79.01 and Mood disorder F39 [facility] [id number] [place] [address] Jul, [facility] [id number] [place] [address] May, [facility] [address] [address] May, Hypokalemia E87.6 [facility] [id number] [place] [address] May, Mood disorder F39 [facility] [address] [address] May, Anticoagulant long-term use Z79.01 [facility] [address] [address] Apr, Anticoagulant long-term use Z79.01 [facility] [address] [address] Apr, Anticoagulant long-term use Z79.01 [facility] [id number] [place] [address] Apr, [facility] [id number] [place] [address] Apr, Anticoagulant long-term use Z79.01 [facility] [id number] [place] [address] Apr, Anticoagulant long-term use Z79.01 [facility] [address] [address] Apr, Anticoagulant long-term use Z79.01 [facility] [id number] [place] [address] Mar, [facility] [address] [address] Mar, [facility] [id number] [place] [address] Mar, Anticoagulant long-term use Z79.01 [facility] [id number] [place] [address] Feb, [facility] [id number] [place] [address] Feb, [facility] [address] [address] Feb, Anticoagulant long-term use Z79.01 [facility] [address] [address] Feb, Anticoagulant long-term use Z79.01 [facility] [id number] [place] [address] Jan, [facility] [address] [address] Jan, Anticoagulant long-term use Z79.01 [facility] [id number] [place] [address] Jan, Anticoagulant long-term use Z79.01 [facility] [id number] [place] [address] Dec, Anticoagulant long-term use Z79.01 [facility] [id number] [place] [address] Dec, Anticoagulant long-term use Z79.01 [facility] [id number] [place] [address] Dec, Anticoagulant long-term use Z79.01 and Mood disorder F39 [facility] [id number] [place] [address] Dec, [facility] [id number] [place] [address] Nov, [facility] [address] [address] Nov, Anticoagulant long-term use Z79.01 [facility] [id number] [place] [address] Nov, Anticoagulant long-term use Z79.01 [facility] [id number] [place] [address] September, Anticoagulant long-term use Z79.01 [facility] [id number] [place] [address] Jul, Anticoagulant long-term use Z79.01 [facility] [id number] [place] [address] May, Anticoagulant long-term use Z79.01 [facility] [id number] [place] [address] May, Anticoagulant long-term use Z79.01 [facility] [id number] [place] [address] May, Anticoagulant long-term use Z79.01 [facility] [id number] [place] [address] May, Anticoagulant long-term use Z79.01 [facility] [id number] [place] [address] May, [facility] [id number] [place] [address] May, Congestive heart failure, unspecified congestive heart failure chronicity, unspecified congestive heart failure type I50.9 and Pulmonary congestion R09.89 [facility] [id number] [place] [address] Apr, Cough R05 ; Congestive heart failure, unspecified congestive heart failure chronicity, unspecified congestive heart failure type I50.9 and Pulmonary congestion R09.89 [facility] [id number] [place] [address] Mar, Hematuria R31.9 [facility] [address] [address] Mar, [facility] [id number] [place] [address] Mar, Anticoagulant long-term use Z79.01 [facility] [address] [address] Mar, [facility] [id number] [place] [address] Mar, Hematuria R31.9 and Infective urethritis N34.2 [facility] [id number] [place] [address] Mar, Anticoagulant long-term use Z79.01 [facility] [address] [address] Mar, Anticoagulant long-term use Z79.01 [facility] [id number] [place] [address] Mar, [facility] [id number] [place] [address] Mar, Anticoagulant long-term use Z79.01 [facility] [id number] [place] [address] Feb, Peristomal skin breakdown L98.499 [facility] [id number] [place] [address] Feb, [facility] [id number] [place] [address] Feb, UTI (urinary tract infection) N39.0 [facility] [address] [place] [address] 04 Jan, 2015 [facility] [id number] [place] [address] Dec, High risk medication use V58.69 [facility] [address] [address] Nov, High risk medication use V58.69 [facility] [address] [address] Nov, [facility] [address] [address] Nov, UTI (lower urinary tract infection) 599.0 ; URI, acute 465.9 ; Insomnia 780.52 ; Anxiety 300.00 and Lower limb amputation, unspecified level V49.70 [facility] [address] [address] Oct, UTI (lower urinary tract infection) 599.0 ; URI, acute 465.9 ; Insomnia 780.52 ; Anxiety 300.00 and Lower limb amputation, unspecified level V49.70 [facility] [address] [address] Aug, [facility] [address] [address] Aug, [facility] [address] [address] Jul, [facility] [address] [address] Jul, [facility] [address] [address] Jun, [facility] [id number] [address] Jun, [facility] [address] [address] Mar, [facility] [id number] [address] Mar, [facility] [id number] [place] [address] Mar, [facility] [place] [facility] [address] [id number] [place] [address] Mar, [facility] [place] [facility] [address] [id number] [place] [address] Mar, [facility] [place] [facility] [address] [id number] [place] [address] Feb, [facility] [place] [facility] [address] [id number] [place] [address] Feb, [facility] [place] [facility] [address] [id number] [place] [address] Feb, [facility] [place] [facility] [address] [id number] [place] [address] Feb, [facility] [place] [facility] [address] [id number] [place] [address] Feb, [facility] [place] [facility] [address] [id number] [place] [address] Feb, [facility] [place] [facility] [address] [id number] [place] [address] Feb, [facility] [place] [facility] [address] [id number] [place] [address] Feb, [facility] [place] [facility] [address] [id number] [place] [address] Feb, [facility] [place] [facility] [address] [id number] [place] [address] Feb, [facility] [place] [facility] [address] [id number] [place] [address] Feb, [facility] [place] [facility] [address] [id number] [place] [address] Feb, [facility] [place] [facility] [address] [id number] [place] [address] Feb, [facility] [place] [facility] [address] [id number] [place] [address] Feb, [facility] [place] [facility] [address] [id number] [place] [address] Feb, [facility] [place] [facility] [address] [id number] [place] [address] Feb, [facility] [place] [facility] [address] [id number] [place] [address] Jan, [facility] [place] [facility] [address] [id number] [place] [address] Jan, [facility] [place] [facility] [address] [id number] [place] [address] Jan, [facility] [place] [facility] [address] [id number] [place] [address] Jan, [facility] [place] [facility] [address] [id number] [place] [address] Jan, [facility] [place] [facility] [address] [id number] [place] [address] Nov, [facility] [place] [facility] [address] [id number] [place] [address] Nov, [facility] [place] [facility] [address] [id number] [place] [address] Nov, [facility] [place] [facility] [address] [id number] [place] [address] Nov, [facility] [place] [facility] [address] [id number] [place] [address] Nov, [facility] [place] [facility] [address] [id number] [place] [address] Nov, [facility] [place] [facility] [address] [id number] [place] [address] Oct, [facility] [place] [facility] [address] [id number] [place] [address] Oct, [facility] [place] [facility] [address] [id number] [place] [address] Oct, [facility] [place] [facility] [address] [id number] [place] [address] Oct, [facility] [place] [facility] [address] [id number] [place] [address] Oct, [facility] [place] [facility] [address] [id number] [place] [address] Oct, [facility] [place] [facility] [address] [id number] [place] [address] Oct, [facility] [place] [facility] [address] [id number] [place] [address] September, [facility] [place] [facility] [address] [id number] [place] [address] September, [facility] [place] [facility] [address] [id number] [place] [address] September, [facility] [place] [facility] [address] [id number] [place] [address] September, [facility] [place] [facility] [address] [id number] [place] [address] September, [facility] [place] [facility] [address] [id number] [place] [address] September, [facility] [place] [facility] [address] [id number] [place] [address] September, [facility] [place] [facility] [address] [id number] [place] [address] September, [facility] [place] [facility] [address] [id number] [place] [address] Aug, [facility] [place] [facility] [address] [id number] [place] [address] Aug, [facility] [place] [facility] [address] [id number] [place] [address] Aug, [facility] [place] [facility] [address] [id number] [place] [address] Aug, [facility] [place] [facility] [address] [id number] [place] [address] Jul, [facility] [place] [facility] [address] [id number] [place] [address] Jul, [facility] [place] [facility] [address] [id number] [place] [address] Jun, [facility] [place] [facility] [address] [id number] [place] [address] Jun, [facility] [place] [facility] [address] [id number] [place] [address] Jun, [facility] [place] [facility] [address] [id number] [place] [address] Jun, [facility] [place] [facility] [address] [id number] [place] [address] Jun, [facility] [place] [facility] [address] [id number] [place] [address] Jun, [facility] [place] [facility] [address] [id number] [place] [address] May, [facility] [place] [facility] [address] [id number] [place] [address] May, [facility] [place] [facility] [address] [id number] [place] [address] May, [facility] [place] [facility] [address] [id number] [place] [address] May, [facility] [place] [facility] [address] [id number] [place] [address] May, [facility] [place] [facility] [address] [id number], [place] [address] May, [facility] [address] [id number] [place] [address] Feb, [facility] [place] [facility] [address] [id number] [place] [address] Feb, [facility] [place] [facility] [address] [id number] [place] [address] Feb, [facility] [place] [facility] [address] [id number] [place] [address] Feb, [facility] [place] [facility] [address] [id number] [place] [address] Jan, [facility] [place] [facility] [address] [id number] [place] [address] Jan, [facility] [place] [facility] [address] [id number] [place] [address] Jan, [facility] [place] [facility] [address] [id number] [place] [address] Dec, [facility] [place] [facility] [address] [id number] [place] [address] Nov, [facility] [place] [facility] [address] [id number] [place] [address] Nov, [facility] [place] [facility] [address] [id number] [place] [address] Nov, [facility] [place] [facility] [address] [id number] [place] [address] Nov, [facility] [place] [facility] [address] [id number] [place] [address] Nov, [facility] [place] [facility] [address] [id number] [place] [address] Oct, [facility] [place] [facility] [address] [id number] [place] [address] September, [facility] [place] [facility] [address] [id number] [place] [address] September, [facility] [address] [id number] [place] [address] Aug, [facility] [place] [facility] [address] [id number] [place] [address] Aug, [facility] [address] [id number] [place] [address] Jul, [facility] [place] [facility] [address] [id number] [place] [address] Jul, [facility] [place] [facility] [address] [id number] [place] [address] Jul, [facility] [place] [facility] [address] [id number] [place] [address] Jul, [facility] [place] [facility] [address] [id number] [place] [address] Jun, [facility] [address] [id number] [place] [address] Jun, [facility] [place] [facility] [address] [id number] [place] [address] Jun, [facility] [place] [facility] [address] [id number] [place] [address] May, [facility] [place] [facility] [address] [id number] [place] [address] May, [facility] [place] [facility] [address] [id number] [place] [address] May, [facility] [place] [facility] [address] [id number] [place] [address] May, [facility] [place] [facility] [address] [id number] [place] [address] Apr, [facility] [place] [facility] [address] [address] [id number] [place] [address] Apr, [facility] [place] [facility] [address] [id number] [place] [address] Apr, [facility] [place] [facility] [address] [id number] [place] [address] Apr, [facility] [place] [facility] [address] [facility] [id number] [place] [address] Apr, [facility] [place] [facility] [address] [id number] [place] [address] Apr, [facility] [place] [facility] [address] [id number] [place] [address] Mar, [facility] [place] [facility] [address] [facility] [id number], [place] [address] Mar, [facility] [place] [facility] [address] [facility] [id number], [place] [address] Mar, [facility] [place] [facility] [address] [id number], [place] [address] Mar, [facility] [place] [facility] [address] [id number], [place] [address] Mar, [facility] [place] [facility] [address] [facility] [id number], [place] [address] Mar, [facility] [place] [facility] [address] [id number], [place] [address] Feb, [facility] [place] [facility] [address] [id number], [place] [address] Feb, [facility] [place] [facility] [address] [id number], [place] [address] Feb, [facility] [place] [facility] [address] [facility] [id number], [place] [address] Feb, [facility] [place] [facility] [address] [facility] [id number], [place] [address] Jan, [facility] [place] [facility] [address] [id number] [place] [address] 25 Jan, 2012 [facility] [address] [id number] [place] [address] 24 Jan, 2012 [facility] [address] [id number] [place] [address] 10 Jan, 2012 [facility] [address] [id number] [place] [address] Dec, [facility] [address] [id number] [place] [address] Dec, [facility] [address] [id number] [place] [address] Nov, [facility] [address] [id number] [place] [address] Oct, [facility] [address] [id number] [place] [address] Oct, [facility] [address] [id number] [place] [address] Oct, [facility] [address] [id number] [place] [address] September, [facility] [address] [id number] [place] [address] September, [facility] [address] [id number] [place] [address] September, [facility] [address] [id number] [place] [address] September, [facility] [address] [id number] [place] [address] September, [facility] [address] [id number] [place] [address] September, [facility] [address] [id number] [place] [address] September, [facility] [place] [facility] [address] [id number] [place] [address] Jul, [facility] [place] [facility] [address] [id number] [place] [address] Jul, [facility] [place] [facility] [address] [id number] [place] [address] Jun, [facility] [place] [facility] [address] [id number] [place] [address] Jun, [facility] [place] [facility] [address] [id number] [place] [address] Jun, [facility] [place] [facility] [address] [id number] [place] [address] May, [facility] [place] [facility] [address] [id number] [place] [address] Mar, [facility] [place] [facility] [address] [id number] [place] [address] Mar, [facility] [place] [facility] [address] [id number] [place] [address] Mar, [facility] [place] [facility] [address] [facility] [id number] [place] [address] Feb, [facility] [place] [facility] [address] [id number] [place] [address] Feb, [facility] [place] [facility] [address] [id number] [place] [address] Dec, [facility] [place] [facility] [address] [id number] [place] [address] May, [facility] [place] [facility] [address] [id number] [place] [address] Apr, [facility] [place] [facility] [address] [id number] [place] [address] Apr, [facility] [place] [facility] [address] [id number], [place] [address] Apr, [facility] [address] [facility] [id number], [place] [address] Apr, [facility] [address] [facility] [id number], [place] [address] Feb, [facility] [address] [id number], [place] [address] Oct, IMMUNIZATIONS No Known Immunizations SOCIAL HISTORY Never Assessed REASON FOR VISIT UTI f/u, PT says things are going good- Khai [facility] PLAN OF CARE VITAL SIGNS Height 62 in 2016-12-12 Weight 128.5 lbs 2016-12-12 Temperature 97.4 degrees Fahrenheit 2016-12-12 Heart Rate 67 bpm 2016-12-12 Respiratory Rate 18 2016-12-12 BMI 23.50 kg/m2 2016-12-12 Blood pressure systolic 124 mmHg 2016-12-12 Blood pressure diastolic 76 mmHg 2016-12-12 MEDICATIONS Medication Instructions Dosage Frequency Start Date End Date Duration Status Montelukast Sodium 10 mg Orally Once a day 1 tablet in the evening 24h Active Lisinopril 10 mg Orally Once a day 1 tablet 24h Active Folic Acid 1 MG Orally Once a day 1 tablet 24h Active Metoprolol Succinate ER 50MG Orally Once a day 1 tablet 24h Active Klor-Con M20 20 meq Orally Once a day 1 tablet with food 24h 30 Active Clopidogrel Bisulfate 75 MG Orally Once a day 1 tablet 24h Active Paroxetine HCl 10 mg Orally Once a day 1 tablet in the morning 24h Active Warfarin Sodium 2 MG Orally twice weekly on Mon and Mon 1 tablet Active Amlodipine Besylate 10 mg Orally Once a day 1 tablet 24h Active Warfarin Sodium 1 MG Orally 5 times weekly on Monday, Monday, , Monday and Monday 1 tablet Active Simvastatin 20 mg Orally Once a day 2 tablets 24h Active RESULTS Name Result Date Reference Range VITAMIN B12 2016-12-12 Vitamin B12 [phone] VITAMIN D, 25-H 2016-12-12 Vitamin D, 25-Hydroxy 35.8 30.0-100.0 INR (IN HOUSE) 2016-12-12 INR 1.9 1.10 - 3.30 PREVIOUS INR 1.2 CURRENT COUMADIN DOSE NEW COUMADIN DOSE Lot # [id number] Exp date 07/2017 PROCEDURES Procedure Date Ordered Result Body Site [facility] VISIT ESTABLISHED PATIENT Dec 12, 2016 LAB NOT BILLED BY [facility] Dec 12, 2016 PROTHROMBIN TIME Dec 12, 2016 VENIPUNCT, ROUTINE* Dec 12, 2016 INSTRUCTIONS MEDICATIONS ADMINISTERED No Known Medications [...]
--- OUTSIDE RECORDS SUMMARY | 2018-12-05 12:14 | XMS REPORT ---
Author Author ERIK SAMAYOA Organization [facility] Address [address] [place] [address] Care Team Providers Care Cash On Delivery Clerk Name Role Phone ERIK SAMAYOA Unavailable PROBLEMS Type Condition ICD9-CM Code TFL77-YV Code Onset Dates Condition Status SNOMED Code Problem Acute cystitis with hematuria N30.01 Active 09562613 Problem Major depressive disorder, single episode, unspecified F32.9 Active 51781610 Problem Congestive heart failure, unspecified congestive heart failure chronicity, unspecified congestive heart failure type I50.9 Active 34089089 Problem Chronic fatigue, unspecified R53.82 Active 082246159 Problem Mood disorder F39 Active 78740698 Problem Anticoagulant long-term use Z79.01 Active 805924754 Problem PVD (peripheral vascular disease) I73.9 Active 997166581 Problem Amput leg, unil NOS-comp S88.919A Active 41915742 ALLERGIES Substance Reaction Event Type Date Status Penicillin V Potassium Unknown Drug Allergy Feb, Active Morphine Sulfate Unknown Drug Allergy Feb, Active Codeine Sulfate Unknown Drug Allergy Feb, Active Aspir-81 Unknown Drug Allergy Feb, Active ENCOUNTERS Encounter Location Date Diagnosis [facility] [address] [address] Aug, Chronic fatigue, unspecified R53.82 [facility] [address], [place] [address] Aug, Anticoagulant long-term use Z79.01 [facility] [id number] [place] [address] Aug, Nausea R11.0 and Weakness R53.1 [facility] [address], [place] [address] Aug, [facility] [id number] [place] [address] 04 Aug, 2017 Hematuria R31.9 and Acute cystitis with hematuria N30.01 [place] [address] [address] Aug, [place] [address] [address] Jul, Vitamin B 12 deficiency E53.8 [place] [address] [address] Jul, Anticoagulant long-term use Z79.01 [place] [address] [address] Jun, Chronic fatigue, unspecified R53.82 [place] [address] [address] Jun, Anticoagulant long-term use Z79.01 [place] [address] [address] May, Flu-like symptoms R68.89 and Influenza A J10.1 [place] [address] [address] May, [place] [id number] [place] [address] May, Chronic fatigue, unspecified R53.82 [place] [id number] [place] [address] May, Anticoagulant long-term use Z79.01 [place] [id number] [place] [address] 15 Apr, 2017 Medicare welcome exam Z00.00 ; Anticoagulant long-term use Z79.01 ; Medicare annual wellness visit, initial Z00.00 ; Medicare annual wellness visit, subsequent Z00.00 and Chronic fatigue, unspecified R53.82 [place] [id number] [place] [address] Mar, Chronic fatigue, unspecified R53.82 [place] [id number] [place] [address] Mar, Anticoagulant long-term use Z79.01 [facility] [id number] [place] [address] Mar, Anticoagulant long-term use Z79.01 and Hematuria R31.9 [place] [address] [address] Mar, Hematuria R31.9 [place] [id number] [place] [address] Feb, Anticoagulant long-term use Z79.01 [place] [id number] [place] [address] Feb, Anticoagulant long-term use Z79.01 [place] [id number] [place] [address] Feb, Anticoagulant long-term use Z79.01 [place] [id number] [place] [address] Feb, Chronic fatigue, unspecified R53.82 [place] [id number] [place] [address] Feb, Anticoagulant long-term use Z79.01 [place] [id number] [place] [address] Feb, Congestive heart failure, unspecified congestive heart failure chronicity, unspecified congestive heart failure type I50.9 [place] [id number] [place] [address] Feb, Congestive heart failure, unspecified congestive heart failure chronicity, unspecified congestive heart failure type I50.9 [place] [id number] [place] [address] Feb, [place] [id number] [place] [address] Jan, Anticoagulant long-term use Z79.01 [place] [id number] [place] [address] Jan, [place] [id number] [place] [address] Jan, Anticoagulant long-term use Z79.01 and Hematuria R31.9 [place] [address] [address] Jan, Anticoagulant long-term use Z79.01 [place] [id number] [place] [address] Jan, Chronic fatigue, unspecified R53.82 [place] [id number] [place] [address] Jan, Anticoagulant long-term use Z79.01 [place] [id number] [place] [address] Dec, Chronic fatigue, unspecified R53.82 [place] [id number] [place] [address] Dec, [place] [id number] [place] [address] Dec, Chronic fatigue, unspecified R53.82 and Encounter for therapeutic drug level monitoring Z51.81 [place] [id number] [place] [address] Nov, Encounter for therapeutic drug level monitoring Z51.81 [place] [id number] [place] [address] Nov, Hematuria R31.9 [place] [id number] [place] [address] Nov, Hematuria R31.9 ; Anticoagulant long-term use Z79.01 and PVD (peripheral vascular disease) I73.9 [place] [id number] [place] [address] Nov, Anticoagulant long-term use Z79.01 [facility] [id number] [place] [address] Nov, Anticoagulant long-term use Z79.01 [facility] [address] [address] Nov, [facility] [address] [address] Nov, Hematuria R31.9 and Acute cystitis with hematuria N30.01 [facility] [address] [id number] Oct, [place] [id number] [place] [address] Oct, [place] [address] [address] Oct, Hematuria R31.9 [place] [address] [address] Oct, Hematuria R31.9 [facility] [address] [address] Oct, Anticoagulant long-term use Z79.01 [place] [id number] [place] [address] Oct, Anticoagulant long-term use Z79.01 [facility] [id number] [place] [address] Oct, [facility] [id number] [place] [address] September, PVD (peripheral vascular disease) I73.9 ; Amput leg, unil NOS-comp S88.919A ; Acute cystitis without hematuria N30.00 ; Anticoagulant long-term use Z79.01 and Hypokalemia E87.6 [place] [address] [address] Aug, Anticoagulant long-term use Z79.01 and Bronchitis J40 [facility] [address] [address] Jul, [facility] [address] [address] Jul, Anticoagulant long-term use Z79.01 and Mood disorder F39 [facility] [address] [address] Jul, [facility] [address] [address] May, [facility] [address] [address] May, Hypokalemia E87.6 [place] [address] [address] May, Mood disorder F39 [facility] [address] [address] May, Anticoagulant long-term use Z79.01 [place] [address] [address] Apr, Anticoagulant long-term use Z79.01 [facility] [address] [address] Apr, Anticoagulant long-term use Z79.01 [facility] [address] [address] Apr, [facility] [address] [address] Apr, Anticoagulant long-term use Z79.01 [facility] [address] [address] Apr, Anticoagulant long-term use Z79.01 [facility] [address] [place] [address] Apr, Anticoagulant long-term use Z79.01 [facility] [id number] [place] [address] Mar, [facility] [id number] [place] [address] Mar, [facility] [id number] [place] [address] Mar, Anticoagulant long-term use Z79.01 [facility] [id number] [place] [address] Feb, [facility] [address] [address] Feb, [facility] [id number] [place] [address] Feb, Anticoagulant long-term use Z79.01 [facility] [id number] [place] [address] Feb, Anticoagulant long-term use Z79.01 [facility] [id number] [place] [address] Jan, [facility] [id number] [place] [address] Jan, Anticoagulant long-term use Z79.01 [facility] [id number] [place] [address] Jan, Anticoagulant long-term use Z79.01 [facility] [id number] [place] [address] Dec, Anticoagulant long-term use Z79.01 [facility] [id number] [place] [address] Dec, Anticoagulant long-term use Z79.01 [facility] [id number] [place] [address] Dec, Anticoagulant long-term use Z79.01 and Mood disorder F39 [facility] [id number] [place] [address] Dec, [facility] [id number] [place] [address] Nov, [facility] [id number] [place] [address] Nov, Anticoagulant long-term use Z79.01 [facility] [id number] [place] [address] Nov, Anticoagulant long-term use Z79.01 [facility] [id number] [place] [address] September, Anticoagulant long-term use Z79.01 [facility] [id number] [place] [address] Jul, Anticoagulant long-term use Z79.01 [facility] [id number] [place] [address] May, Anticoagulant long-term use Z79.01 [facility] [id number] [place] [address] May, Anticoagulant long-term use Z79.01 [facility] [id number] [place] [address] May, Anticoagulant long-term use Z79.01 [facility] [id number] [place] [address] May, Anticoagulant long-term use Z79.01 [facility] [id number] [place] [address] May, [facility] [id number] [place] [address] May, Congestive heart failure, unspecified congestive heart failure chronicity, unspecified congestive heart failure type I50.9 and Pulmonary congestion R09.89 [facility] [address] [address] Apr, Cough R05 ; Congestive heart failure, unspecified congestive heart failure chronicity, unspecified congestive heart failure type I50.9 and Pulmonary congestion R09.89 [place] [address] [address] Mar, Hematuria R31.9 [facility] [address] [address] Mar, [place] [address] [address] Mar, Anticoagulant long-term use Z79.01 [place] [address] [address] Mar, [place] [address] [address] Mar, Hematuria R31.9 and Infective urethritis N34.2 [place] [address] [address] Mar, Anticoagulant long-term use Z79.01 [place] [address] [address] Mar, Anticoagulant long-term use Z79.01 [place] [address] [address] Mar, [place] [address] [address] Mar, Anticoagulant long-term use Z79.01 [place] [address] [address] Feb, Peristomal skin breakdown L98.499 [place] [address] [address] Feb, [place] [address] [place] [address] Feb, UTI (urinary tract infection) N39.0 [facility] [address], [place] [address] Jan, [facility] [id number], [place] [address] Dec, High risk medication use V58.69 [facility] [address], [place] [address] Nov, High risk medication use V58.69 [facility] [id number], [place] [address] Nov, [facility] [address], [place] [address] Nov, UTI (lower urinary tract infection) 599.0 ; URI, acute 465.9 ; Insomnia 780.52 ; Anxiety 300.00 and Lower limb amputation, unspecified level V49.70 [facility] [id number], [place] [address] Oct, UTI (lower urinary tract infection) 599.0 ; URI, acute 465.9 ; Insomnia 780.52 ; Anxiety 300.00 and Lower limb amputation, unspecified level V49.70 [facility] [id number], [place] [address] Aug, [facility] [id number], [place] [address] Aug, [facility] [id number], [place] [address] Jul, [facility] [address], [place] [address] Jul, [facility] [id number], [place] [address] Jun, [facility] [address], [place] [address] Jun, [facility] [place] [facility] [address] [id number] [place] [address] Mar, [facility] [place] [facility] [address] [id number] [place] [address] Mar, [facility] [place] [facility] [address] [id number] [place] [address] Mar, [facility] [place] [facility] [address] [id number] [place] [address] Mar, [facility] [place] [facility] [address] [id number] [place] [address] Mar, [facility] [place] [facility] [address] [id number] [place] [address] Feb, [facility] [place] [facility] [address] [id number] [place] [address] Feb, [facility] [place] [facility] [address] [id number], [place] [address] Feb, [facility] [place] [facility] [address] [id number] [place] [address] Feb, [facility] [place] [facility] [address] [id number] [place] [address] Feb, [facility] [place] [facility] [address] [id number], [place] [address] 16 Feb, 2014 [facility] [place] [facility] [address] [id number], [place] [address] 16 Feb, 2014 [facility] [place] [facility] [address] [id number] [place] [address] Feb, [facility] [place] [facility] [address] [id number], [place] [address] Feb, [facility] [place] [facility] [address] [id number], [place] [address] Feb, [facility] [place] [facility] [address] [id number] [place] [address] Feb, 2013 [facility] [place] [facility] [address] [id number] [place] [address] Feb, [facility] [place] [facility] [address] [id number] [place] [address] Feb, [facility] [place] [facility] [address] [id number] [place] [address] Feb, [facility] [place] [facility] [address] [id number] [place] [address] Feb, [facility] [place] [facility] [address] [id number] [place] [address] Feb, [facility] [place] [facility] [address] [id number] [place] [address] Jan, [facility] [place] [facility] [address] [id number] [place] [address] Jan, [facility] [place] [facility] [address] [id number] [place] [address] Jan, [facility] [place] [facility] [address] [id number] [place] [address] Jan, [facility] [place] [facility] [address] [id number] [place] [address] Jan, [facility] [place] [facility] [address] [id number] [place] [address] Nov, [facility] [place] [facility] [address] [id number] [place] [address] Nov, [facility] [place] [facility] [address] [id number] [place] [address] Nov, [facility] [place] [facility] [address] [id number] [place] [address] Nov, [facility] [place] [facility] [address] [id number] [place] [address] Nov, [facility] [place] [facility] [address] [id number] [place] [address] Nov, [facility] [place] [facility] [address] [id number] [place] [address] Oct, [facility] [place] [facility] [address] [id number] [place] [address] Oct, [facility] [place] [facility] [address] [id number] [place] [address] Oct, [facility] [place] [facility] [address] [id number] [place] [address] Oct, [facility] [place] [facility] [address] [id number] [place] [address] Oct, [facility] [place] [facility] [address] [id number] [place] [address] Oct, [facility] [place] [facility] [address] [id number] [place] [address] Oct, [facility] [place] [facility] [address] [id number] [place] [address] September, [facility] [place] [facility] [address] [id number] [place] [address] September, [facility] [place] [facility] [address] [id number] [place] [address] September, [facility] [place] [facility] [address] [id number] [place] [address] September, [facility] [place] [facility] [address] [id number] [place] [address] September, [facility] [place] [facility] [address] [id number] [place] [address] September, [facility] [place] [facility] [address] [id number] [place] [address] September, [facility] [place] [facility] [address] [id number], [place] [address] September, [facility] [place] [facility] [address] [id number] [place] [address] Aug, [facility] [place] [facility] [address] [id number] [place] [address] Aug, [facility] [place] [facility] [address] [id number] [place] [address] Aug, [facility] [place] [facility] [address] [id number] [place] [address] Aug, [facility] [place] [facility] [address] [id number] [place] [address] Jul, [facility] [place] [facility] [address] [id number] [place] [address] Jul, [facility] [place] [facility] [address] [id number] [place] [address] Jun, [facility] [place] [facility] [address] [id number] [place] [address] Jun, [facility] [place] [facility] [address] [id number] [place] [address] Jun, [facility] [place] [facility] [address] [facility] [id number] [place] [address] Jun, [facility] [place] [facility] [address] [id number] [place] [address] Jun, [facility] [place] [facility] [address] [id number] [place] [address] Jun, [facility] [place] [facility] [address] [id number] [place] [address] May, [facility] [place] [facility] [address] [id number] [place] [address] May, [facility] [place] [facility] [address] [id number] [place] [address] May, [facility] [place] [facility] [address] [id number] [place] [address] May, [facility] [place] [facility] [address] [id number] [place] [address] May, [facility] [place] [facility] [address] [id number] [place] [address] May, [facility] [place] [facility] [address] [id number] [place] [address] Feb, [facility] [address] [id number] [place] [address] Feb, [facility] [place] [facility] [address] [id number] [place] [address] Feb, [facility] [address] [id number] [place] [address] Feb, [facility] [place] [facility] [address] [id number] [place] [address] Jan, [facility] [place] [facility] [address] [id number] [place] [address] Jan, [facility] [place] [facility] [address] [id number] [place] [address] Jan, [facility] [place] [facility] [address] [id number] [place] [address] Dec, [facility] [place] [facility] [address] [id number] [place] [address] Nov, [facility] [place] [facility] [address] [id number] [place] [address] Nov, [facility] [place] [facility] [address] [id number] [place] [address] Nov, [facility] [place] [facility] [address] [id number] [place] [address] Nov, [facility] [place] [facility] [address] [id number], [place] [address] Nov, [facility] [address] [id number] [place] [address] Oct, [facility] [address] [id number] [place] [address] September, [facility] [address] [id number] [place] [address] September, [facility] [address] [id number] [place] [address] Aug, [facility] [address] [id number] [place] [address] Aug, [facility] [address] [id number] [place] [address] Jul, [facility] [address] [id number] [place] [address] Jul, [facility] [address] [id number] [place] [address] Jul, [facility] [address] [id number] [place] [address] Jul, [facility] [address] [id number] [place] [address] Jun, [facility] [address] [id number], [place] [address] Jun, [facility] [place] [facility] [address] [id number] [place] [address] Jun, [facility] [place] [facility] [address] [id number] [place] [address] May, [facility] [place] [facility] [address] [id number] [place] [address] May, [facility] [place] [facility] [address] [id number] [place] [address] May, [facility] [place] [facility] [address] [id number] [place] [address] May, [facility] [place] [facility] [address] [id number] [place] [address] Apr, [facility] [place] [facility] [address] [id number] [place] [address] Apr, [facility] [place] [facility] [address] [id number] [place] [address] Apr, [facility] [place] [facility] [address] [id number] [place] [address] Apr, [facility] [place] [facility] [address] [id number] [place] [address] Apr, [facility] [place] [facility] [address] [id number] [place] [address] Apr, [facility] [place] [facility] [address] [id number] [place] [address] Mar, [facility] [place] [facility] [address] [id number] [place] [address] Mar, [facility] [place] [facility] [address] [id number] [place] [address] Mar, [facility] [place] [facility] [address] [id number] [place] [address] Mar, [facility] [place] [facility] [address] [id number] [place] [address] Mar, [facility] [place] [facility] [address] [id number] [place] [address] Mar, [facility] [place] [facility] [address] [id number] [place] [address] Feb, [facility] [place] [facility] [address] [id number] [place] [address] Feb, [facility] [place] [facility] [address] [id number] [place] [address] Feb, [facility] [place] [facility] [address] [id number] [place] [address] Feb, [facility] [place] [facility] [address] [id number] [place] [address] Jan, [facility] [place] [facility] [address] [id number] [place] [address] Jan, [facility] [place] [facility] [address] [id number] [place] [address] Jan, [facility] [place] [facility] [address] [id number] [place] [address] Jan, [facility] [place] [facility] [address] [id number] [place] [address] Dec, [facility] [place] [facility] [address] [id number] [place] [address] Dec, [facility] [place] [facility] [address] [id number] [place] [address] Nov, [facility] [place] [facility] [address] [id number] [place] [address] Oct, [facility] [place] [facility] [address] [id number] [place] [address] Oct, [facility] [place] [facility] [address] [id number], [place] [address] Oct, [facility] [place] [facility] [address] [id number], [place] [address] September, [facility] [place] [facility] [address] [id number] [place] [address] September, [facility] [place] [facility] [address] [id number] [place] [address] September, [facility] [place] [facility] [address] [id number] [place] [address] September, [facility] [place] [facility] [address] [id number] [place] [address] September, [facility] [address] [id number] [place] [address] September, [facility] [place] [facility] [address] [id number] [place] [address] September, [facility] [address] [id number] [place] [address] Jul, [facility] [place] [facility] [address] [id number] [place] [address] Jul, [facility] [place] [facility] [address] [id number] [place] [address], [place] [address] Jun, [facility] [place] [facility] [address] [id number] [place] [address] Jun, [facility] [place] [facility] [address] [facility] [id number] [place] [address] Jun, [facility] [place] [facility] [address] [id number] [place] [address] May, [facility] [place] [facility] [address] [id number] [place] [address] Mar, [facility] [place] [facility] [address] [facility] [id number] [place] [address] Mar, [facility] [place] [facility] [address] [id number] [place] [address] 14 Mar, 2011 [facility] [place] [facility] [address] [id number] [place] [address] Feb, [facility] [place] [facility] [address] [id number] [place] [address] 18 Feb, 2011 [facility] [place] [facility] [address] [id number] [place] [address] 13 Dec, 2009 [facility] [place] [facility] [address] [facility] [id number] [place] [address] May, [facility] [address] [facility] [id number], [place] [address] Apr, [facility] [address] [facility] [id number], [place] [address] Apr, [facility] [address] [facility] [id number], [place] [address] Apr, [facility] [address] [id number], [place] [address] Apr, [facility] [address] [facility] [id number], [place] [address] Feb, [facility] [address] [facility] [id number], [place] [address] Oct, IMMUNIZATIONS No Known Immunizations SOCIAL HISTORY Never Assessed REASON FOR VISIT INR/coumadin PLAN OF CARE VITAL SIGNS MEDICATIONS Medication Instructions Dosage Frequency Start Date End Date Duration Status Warfarin Sodium 1 MG Orally 6 times weekly on Monday, Monday, Monday, Monday, Monday and Monday 1 tablet Active Warfarin Sodium 2 MG Orally once weekly on 1 tablet Active RESULTS No Results PROCEDURES No Known [...]
--- OUTSIDE RECORDS SUMMARY | 2018-12-05 12:14 | XMS REPORT ---
Author Author ERIK SAMAYOA Organization [facility] Address [address] [place] [address] Care Team Providers Care Client Manager Large Law Name Role Phone ERIK SAMAYOA Unavailable PROBLEMS Type Condition ICD9-CM Code CLG63-FP Code Onset Dates Condition Status SNOMED Code Problem Acute cystitis with hematuria N30.01 Active 76963382 Problem Major depressive disorder, single episode, unspecified F32.9 Active 02114651 Problem Congestive heart failure, unspecified congestive heart failure chronicity, unspecified congestive heart failure type I50.9 Active 15513137 Problem Chronic fatigue, unspecified R53.82 Active 842015451 Problem Mood disorder F39 Active 96363109 Problem Anticoagulant long-term use Z79.01 Active 323232620 Problem PVD (peripheral vascular disease) I73.9 Active 302361307 Problem Amput leg, unil NOS-comp S88.919A Active 31894293 ALLERGIES No Information ENCOUNTERS Encounter Location Date Diagnosis [facility] [address] [address] Aug, Chronic fatigue, unspecified R53.82 [facility] [address] [address] Aug, Anticoagulant long-term use Z79.01 [facility] [address] [address] Aug, Nausea R11.0 and Weakness R53.1 [facility] [address] [address] Aug, [facility] [address] [address] Aug, Hematuria R31.9 and Acute cystitis with hematuria N30.01 [facility] [address] [place] [address] Aug, [place] [id number] [place] [address] Jul, Vitamin B 12 deficiency E53.8 [place] [id number] [place] [address] Jul, Anticoagulant long-term use Z79.01 [place] [address] [address] Jun, Chronic fatigue, unspecified R53.82 [place] [id number] [place] [address] Jun, Anticoagulant long-term use Z79.01 [place] [id number] [place] [address] May, Flu-like symptoms R68.89 and Influenza A J10.1 [place] [id number] [place] [address] May, [place] [id number] [place] [address] May, Chronic fatigue, unspecified R53.82 [place] [id number] [place] [address] May, Anticoagulant long-term use Z79.01 [place] [id number] [place] [address] Apr, Medicare welcome exam Z00.00 ; Anticoagulant long-term use Z79.01 ; Medicare annual wellness visit, initial Z00.00 ; Medicare annual wellness visit, subsequent Z00.00 and Chronic fatigue, unspecified R53.82 [place] [id number] [place] [address] Mar, Chronic fatigue, unspecified R53.82 [facility] [id number] [place] [address] Mar, Anticoagulant long-term use Z79.01 [facility] [address], [place] [address] Mar, Anticoagulant long-term use Z79.01 and Hematuria R31.9 [facility] [id number] [place] [address] Mar, Hematuria R31.9 [facility] [id number] [place] [address] Feb, Anticoagulant long-term use Z79.01 [place] [id number] [place] [address] Feb, Anticoagulant long-term use Z79.01 [place] [id number] [place] [address] Feb, Anticoagulant long-term use Z79.01 [place] [id number] [place] [address] Feb, Chronic fatigue, unspecified R53.82 [facility] [id number] [place] [address] Feb, Anticoagulant long-term use Z79.01 [place] [id number] [place] [address] Feb, Congestive heart failure, unspecified congestive heart failure chronicity, unspecified congestive heart failure type I50.9 [place] [address], [place] [address] Feb, Congestive heart failure, unspecified congestive heart failure chronicity, unspecified congestive heart failure type I50.9 [place] [id number] [place] [address] Feb, [place] [id number] [place] [address] Jan, Anticoagulant long-term use Z79.01 [place] [id number] [place] [address] Jan, [place] [id number] [place] [address] Jan, Anticoagulant long-term use Z79.01 and Hematuria R31.9 [place] [id number] [place] [address] Jan, Anticoagulant long-term use Z79.01 [place] [id number] [place] [address] Jan, Chronic fatigue, unspecified R53.82 [facility] [id number] [place] [address] Jan, Anticoagulant long-term use Z79.01 [place] [id number] [place] [address] Dec, Chronic fatigue, unspecified R53.82 [facility] [id number] [place] [address] Dec, [place] [id number] [place] [address] Dec, Chronic fatigue, unspecified R53.82 and Encounter for therapeutic drug level monitoring Z51.81 [place] [id number] [place] [address] Nov, Encounter for therapeutic drug level monitoring Z51.81 [facility] [id number] [place] [address] Nov, Hematuria R31.9 [place] [id number] [place] [address] Nov, Hematuria R31.9 ; Anticoagulant long-term use Z79.01 and PVD (peripheral vascular disease) I73.9 [place] [id number] [place] [address] Nov, Anticoagulant long-term use Z79.01 [place] [id number] [place] [address] Nov, Anticoagulant long-term use Z79.01 [place] [id number] [place] [address] Nov, [place] [id number] [place] [address] Nov, Hematuria R31.9 and Acute cystitis with hematuria N30.01 [facility] [address] [id number] Oct, [place] [id number] [place] [address] Oct, [place] [address] [address] Oct, Hematuria R31.9 [place] [id number] [place] [address] Oct, Hematuria R31.9 [place] [id number] [place] [address] Oct, Anticoagulant long-term use Z79.01 [place] [address] [address] Oct, Anticoagulant long-term use Z79.01 [place] [id number] [place] [address] Oct, [place] [address] [address] September, PVD (peripheral vascular disease) I73.9 ; Amput leg, unil NOS-comp S88.919A ; Acute cystitis without hematuria N30.00 ; Anticoagulant long-term use Z79.01 and Hypokalemia E87.6 [place] [id number] [place] [address] Aug, Anticoagulant long-term use Z79.01 and Bronchitis J40 [place] [address] [place] [address] Jul, [facility] [id number] [place] [address] Jul, Anticoagulant long-term use Z79.01 and Mood disorder F39 [facility] [id number] [place] [address] Jul, [facility] [address] [address] May, [facility] [address] [address] May, Hypokalemia E87.6 [facility] [address] [address] May, Mood disorder F39 [facility] [address] [address] May, Anticoagulant long-term use Z79.01 [facility] [address] [address] Apr, Anticoagulant long-term use Z79.01 [facility] [address] [address] Apr, Anticoagulant long-term use Z79.01 [facility] [id number] [place] [address] Apr, [facility] [address] [address] Apr, Anticoagulant long-term use Z79.01 [facility] [address] [address] Apr, Anticoagulant long-term use Z79.01 [facility] [id number] [place] [address] Apr, Anticoagulant long-term use Z79.01 [facility] [address] [address] Mar, [facility] [id number] [place] [address] Mar, [facility] [id number] [place] [address] Mar, Anticoagulant long-term use Z79.01 [facility] [id number] [place] [address] Feb, [facility] [id number] [place] [address] Feb, [facility] [address] [address] Feb, Anticoagulant long-term use Z79.01 [facility] [id number] [place] [address] Feb, Anticoagulant long-term use Z79.01 [facility] [id number] [place] [address] Jan, [facility] [id number] [place] [address] Jan, Anticoagulant long-term use Z79.01 [facility] [id number] [place] [address] Jan, Anticoagulant long-term use Z79.01 [facility] [id number] [place] [address] Dec, Anticoagulant long-term use Z79.01 [facility] [id number] [place] [address] Dec, Anticoagulant long-term use Z79.01 [facility] [id number] [place] [address] Dec, Anticoagulant long-term use Z79.01 and Mood disorder F39 [facility] [id number] [place] [address] Dec, [facility] [address], [place] [address] Nov, [facility] [id number] [place] [address] Nov, Anticoagulant long-term use Z79.01 [facility] [id number] [place] [address] Nov, Anticoagulant long-term use Z79.01 [facility] [id number] [place] [address] September, Anticoagulant long-term use Z79.01 [place] [id number] [place] [address] Jul, Anticoagulant long-term use Z79.01 [place] [id number] [place] [address] May, Anticoagulant long-term use Z79.01 [place] [id number] [place] [address] May, Anticoagulant long-term use Z79.01 [place] [id number] [place] [address] May, Anticoagulant long-term use Z79.01 [facility] [id number] [place] [address] May, Anticoagulant long-term use Z79.01 [facility] [id number] [place] [address] May, [facility] [id number] [place] [address] May, Congestive heart failure, unspecified congestive heart failure chronicity, unspecified congestive heart failure type I50.9 and Pulmonary congestion R09.89 [facility] [id number] [address] Apr, Cough R05 ; Congestive heart failure, unspecified congestive heart failure chronicity, unspecified congestive heart failure type I50.9 and Pulmonary congestion R09.89 [facility] [id number] [place] [address] Mar, Hematuria R31.9 [facility] [id number] [place] [address] Mar, [facility] [address] [address] Mar, Anticoagulant long-term use Z79.01 [place] [id number] [place] [address] Mar, [place] [address] [address] Mar, Hematuria R31.9 and Infective urethritis N34.2 [place] [address] [address] Mar, Anticoagulant long-term use Z79.01 [place] [address] [address] Mar, Anticoagulant long-term use Z79.01 [place] [id number] [place] [address] Mar, [place] [id number] [place] [address] Mar, Anticoagulant long-term use Z79.01 [place] [id number] [place] [address] Feb, Peristomal skin breakdown L98.499 [place] [address] [address] Feb, [place] [id number] [place] [address] Feb, UTI (urinary tract infection) N39.0 [place] [address] [address] Jan, [facility] [id number] [address] Dec, High risk medication use V58.69 [facility] [address], [place] [address] Nov, High risk medication use V58.69 [facility] [address] [place] [address] Nov, [facility] [address], [place] [address] Nov, UTI (lower urinary tract infection) 599.0 ; URI, acute 465.9 ; Insomnia 780.52 ; Anxiety 300.00 and Lower limb amputation, unspecified level V49.70 [facility] [address], [place] [address] Oct, UTI (lower urinary tract infection) 599.0 ; URI, acute 465.9 ; Insomnia 780.52 ; Anxiety 300.00 and Lower limb amputation, unspecified level V49.70 [facility] [address], [place] [address] Aug, [facility] [address], [place] [address] Aug, [facility] [address], [place] [address] Jul, [facility] [id number], [place] [address] Jul, [facility] [address], [place] [address] Jun, [facility] [address], [place] [address] Jun, [facility] [id number] [address] Mar, [facility] [place] [facility] [address] [id number] [place] [address] Mar, [facility] [place] [facility] [address] [id number] [place] [address] Mar, [facility] [place] [facility] [address] [id number] [place] [address] Mar, [facility] [place] [facility] [address] [id number] [place] [address] Mar, [facility] [place] [facility] [address] [id number] [place] [address] Feb, [facility] [place] [facility] [address] [id number] [place] [address] Feb, [facility] [place] [facility] [address] [id number] [place] [address] Feb, [facility] [place] [facility] [address] [id number] [place] [address] Feb, [facility] [place] [facility] [address] [id number] [place] [address] Feb, [facility] [place] [facility] [address] [id number] [place] [address] Feb, [facility] [place] [facility] [address] [id number] [place] [address] Feb, [facility] [place] [facility] [address] [id number] [place] [address] Feb, [facility] [place] [facility] [address] [id number] [place] [address] Feb, [facility] [place] [facility] [address] [id number] [place] [address] Feb, [facility] [place] [facility] [address] [id number] [place] [address] Feb, [facility] [place] [facility] [address] [id number] [place] [address] Feb, [facility] [place] [facility] [address] [id number] [place] [address] Feb, [facility] [place] [facility] [address] [id number] [place] [address] Feb, [facility] [place] [facility] [address] [id number] [place] [address] Feb, [facility] [place] [facility] [address] [id number] [place] [address] Feb, [facility] [place] [facility] [address] [id number] [place] [address] Jan, [facility] [place] [facility] [address] [id number] [place] [address] Jan, [facility] [place] [facility] [address] [id number] [place] [address] Jan, [facility] [place] [facility] [address] [id number] [place] [address] Jan, [facility] [place] [facility] [address] [id number] [place] [address] Jan, [facility] [place] [facility] [address] [id number] [place] [address] Nov, [facility] [place] [facility] [address] [id number] [place] [address] Nov, [facility] [place] [facility] [address] [id number] [address] Nov, [facility] [place] [facility] [address] [id number] [place] [address] Nov, [facility] [place] [facility] [address] [id number] [place] [address] Nov, [facility] [place] [facility] [address] [id number] [place] [address] Nov, [facility] [place] [facility] [address] [id number] [place] [address] Oct, [facility] [place] [facility] [address] [id number] [place] [address] Oct, [facility] [place] [facility] [address] [id number] [place] [address] Oct, [facility] [place] [facility] [address] [id number] [place] [address] Oct, [facility] [place] [facility] [address] [id number] [place] [address] Oct, [facility] [place] [facility] [address] [id number] [place] [address] Oct, [facility] [place] [facility] [address] [id number] [place] [address] Oct, [facility] [place] [facility] [address] [id number] [place] [address] September, [facility] [place] [facility] [address] [id number] [place] [address] September, [facility] [place] [facility] [address] [id number] [place] [address] September, [facility] [place] [facility] [address] [id number] [place] [address] September, [facility] [place] [facility] [address] [id number] [place] [address] September, [facility] [place] [facility] [address] [id number] [place] [address] September, [facility] [place] [facility] [address] [id number] [place] [address] September, [facility] [place] [facility] [address] [id number] [place] [address] September, [facility] [place] [facility] [address] [id number] [place] [address] Aug, [facility] [place] [facility] [address] [id number] [place] [address] Aug, [facility] [place] [facility] [address] [id number] [place] [address] Aug, [facility] [place] [facility] [address] [id number] [place] [address] Aug, [facility] [place] [facility] [address] [id number] [place] [address] Jul, [facility] [place] [facility] [address] [id number] [place] [address] Jul, [facility] [place] [facility] [address] [id number] [place] [address] Jun, [facility] [place] [facility] [address] [id number] [place] [address] Jun, [facility] [place] [facility] [address] [id number] [place] [address] Jun, [facility] [place] [facility] [address] [id number] [place] [address] Jun, [facility] [place] [facility] [address] [id number] [place] [address] Jun, [facility] [place] [facility] [address] [id number] [place] [address] Jun, [facility] [place] [facility] [address] [id number] [place] [address] May, [facility] [place] [facility] [address] [id number] [place] [address] May, [facility] [place] [facility] [address] [id number] [place] [address] May, [facility] [place] [facility] [address] [id number] [place] [address] May, [facility] [place] [facility] [address] [id number] [place] [address] May, [facility] [address] [id number] [place] [address] May, [facility] [place] [facility] [address] [id number] [place] [address] Feb, [facility] [place] [facility] [address] [id number] [place] [address] Feb, [facility] [place] [facility] [address] [id number] [place] [address] Feb, [facility] [place] [facility] [address] [id number] [place] [address] Feb, [facility] [place] [facility] [address] [id number] [place] [address] Jan, [facility] [place] [facility] [address] [id number] [place] [address] Jan, [facility] [place] [facility] [address] [id number] [place] [address] Jan, [facility] [place] [facility] [address] [id number] [place] [address] Dec, [facility] [place] [facility] [address] [id number] [place] [address] Nov, [facility] [place] [facility] [address] [id number] [place] [address] Nov, [facility] [place] [facility] [address] [id number] [place] [address] Nov, [facility] [place] [facility] [address] [id number] [place] [address] Nov, [facility] [place] [facility] [address] [id number] [place] [address] Nov, [facility] [place] [facility] [address] [id number] [place] [address] Oct, [facility] [place] [facility] [address] [id number] [place] [address] September, [facility] [address] [id number] [place] [address] September, [facility] [address] [id number] [place] [address] Aug, [facility] [address] [id number] [place] [address] Aug, [facility] [address] [id number] [place] [address] Jul, [facility] [address] [id number] [place] [address] Jul, [facility] [address] [id number] [place] [address] Jul, [facility] [address] [id number] [place] [address] Jul, [facility] [address] [id number] [place] [address] Jun, [facility] [address] [id number] [place] [address] Jun, [facility] [address] [id number] [place] [address] Jun, [facility] [address] [id number] [place] [address] May, [facility] [place] [facility] [address] [id number] [place] [address] May, [facility] [place] [facility] [address] [id number] [place] [address] May, [facility] [place] [facility] [address] [id number] [place] [address] May, [facility] [place] [facility] [address] [id number], [place] [address] Apr, [facility] [place] [facility] [address] [id number] [place] [address] Apr, [facility] [place] [facility] [address] [id number] [place] [address] Apr, [facility] [place] [facility] [address] [id number] [place] [address] Apr, [facility] [place] [facility] [address] [id number] [place] [address] Apr, [facility] [place] [facility] [address] [id number] [place] [address] Apr, [facility] [place] [facility] [address] [id number] [place] [address] Mar, [facility] [place] [facility] [address] [id number] [place] [address] Mar, [facility] [place] [facility] [address] [id number] [place] [address] Mar, [facility] [place] [facility] [address] [id number], [place] [address] Mar, [facility] [place] [facility] [address] [id number] [place] [address] Mar, [facility] [place] [facility] [address] [id number], [place] [address] Mar, [facility] [place] [facility] [address] [id number], [place] [address] Feb, [facility] [place] [facility] [address] [id number], [place] [address] Feb, [facility] [place] [facility] [address] [id number], [place] [address] Feb, [facility] [place] [facility] [address] [id number] [place] [address] Feb, [facility] [place] [facility] [address] [id number] [place] [address] 25 Jan, 2012 [facility] [address] [id number] [place] [address] 25 Jan, 2012 [facility] [place] [facility] [address] [id number] [place] [address] 24 Jan, 2012 [facility] [address] [id number] [place] [address] Jan, [facility] [address] [id number] [place] [address] Dec, [facility] [address] [id number] [place] [address] Dec, [facility] [address] [id number] [place] [address] Nov, [facility] [address] [id number] [place] [address] Oct, [facility] [address] [id number] [place] [address] Oct, [facility] [address] [id number] [place] [address] Oct, [facility] [address] [id number] [place] [address] September, [facility] [address] [id number] [place] [address] September, [facility] [address] [id number] [place] [address] September, [facility] [place] [facility] [address] [id number] [place] [address] September, [facility] [address] [id number] [place] [address] September, [facility] [address] [id number] [place] [address] September, [facility] [place] [facility] [address] [id number] [place] [address] September, [facility] [place] [facility] [address] [id number] [place] [address] Jul, [facility] [place] [facility] [address] [id number] [place] [address] Jul, [facility] [place] [facility] [address] [id number] [place] [address] Jun, [facility] [place] [facility] [address] [id number] [place] [address] Jun, [facility] [place] [facility] [address] [id number] [place] [address] Jun, [facility] [place] [facility] [address] [id number] [place] [address] May, [facility] [place] [facility] [address] [id number] [place] [address] Mar, [facility] [place] [facility] [address] [id number] [place] [address] Mar, [facility] [place] [facility] [address] [id number] [place] [address] Mar, [facility] [place] [facility] [address] [id number] [place] [address] Feb, [facility] [place] [facility] [address] [id number], [place] [address] Feb, [facility] [place] [facility] [address] [id number] [place] [address] Dec, [facility] [place] [facility] [address] [id number] [place] [address] 15 May, 2009 [facility] [place] [facility] [address] [id number] [place] [address] Apr, [facility] [place] [facility] [address] [facility] [id number] [place] [address] Apr, [facility] [address] [facility] [id number], [place] [address] Apr, [facility] [address] [facility] [id number], [place] [address] Apr, [facility] [address] [facility] [id number], [place] [address] Feb, [facility] [address] [facility] [id number], [place] [address] Oct, IMMUNIZATIONS Vaccine Route Administration Date Status B12, VITAMIN (UP TO 1000 MCG) IM Intramuscular Feb 15, 2017 Administered SOCIAL HISTORY Never Assessed REASON FOR VISIT B12 injection-[facility] PLAN OF CARE Activity Details Follow Up 4 Weeks Reason:B12 inj VITAL SIGNS MEDICATIONS Unknown Medications RESULTS No Results PROCEDURES Procedure Date Ordered Result Body Site B12, VITAMIN (UP TO 1000 MCG) Feb 15, 2017 THER/PROPH/DIAG INJ, SC/IM Feb 15, 2017 INSTRUCTIONS MEDICATIONS ADMINISTERED No Known Medications [...] 5th toe removal 06/25/2009 Hospitalization History pneumonia, hypoxia-[facility] 11/03/16
--- OUTSIDE RECORDS SUMMARY | 2018-12-05 12:14 | XMS REPORT ---
Author Author ERIK SAMAYOA [facility] Address [address] [place] [address] Care Team Providers Care [employer] Name Role Phone ERIK SAMAYOA Unavailable PROBLEMS Type Condition ICD9-CM Code WPC75-BH Code Onset Dates Condition Status SNOMED Code Problem Chronic fatigue, unspecified R53.82 Active 347189139 Problem PVD (peripheral vascular disease) I73.9 Active 226672308 Problem Anticoagulant long-term use Z79.01 Active 482561174 Problem Major depressive disorder, single episode, unspecified F32.9 Active 33104554 Problem Amput leg, unil NOS-comp S88.919A Active 54244844 Problem Mood disorder F39 Active 11043887 ALLERGIES No Known Allergies SOCIAL HISTORY No smoking Hx information available PLAN OF CARE VITAL SIGNS MEDICATIONS Unknown Medications RESULTS No Results PROCEDURES No Known procedures IMMUNIZATIONS No Known Immunizations
--- OUTSIDE RECORDS SUMMARY | 2018-12-05 12:15 | XMS REPORT ---
Author Author ERIK SAMAYOA Organization [facility] Address [address] [place] [address] Care Team Providers Care Director Of Gift Planning Name Role Phone ERIK SAMAYOA Unavailable PROBLEMS Type Condition ICD9-CM Code EOQ27-ER Code Onset Dates Condition Status SNOMED Code Problem Acute cystitis with hematuria N30.01 Active 50190026 Problem Major depressive disorder, single episode, unspecified F32.9 Active 39381411 Problem Congestive heart failure, unspecified congestive heart failure chronicity, unspecified congestive heart failure type I50.9 Active 68456986 Problem Chronic fatigue, unspecified R53.82 Active 004197423 Problem Mood disorder F39 Active 61163305 Problem Anticoagulant long-term use Z79.01 Active 883651344 Problem PVD (peripheral vascular disease) I73.9 Active 436947620 Problem Amput leg, unil NOS-comp S88.919A Active 82329206 ALLERGIES No Information ENCOUNTERS Encounter Location Date Diagnosis [facility] [address] [address] Aug, Chronic fatigue, unspecified R53.82 [facility] [address] [address] Aug, Anticoagulant long-term use Z79.01 [facility] [address] [address] Aug, Nausea R11.0 and Weakness R53.1 [facility] [address] [address] Aug, [facility] [address] [address] Aug, Hematuria R31.9 and Acute cystitis with hematuria N30.01 [facility] [address] [place] [address] Aug, [place] [id number] [place] [address] Jul, Vitamin B 12 deficiency E53.8 [place] [id number] [place] [address] Jul, Anticoagulant long-term use Z79.01 [place] [address] [address] Jun, Chronic fatigue, unspecified R53.82 [place] [id number] [place] [address] Jun, Anticoagulant long-term use Z79.01 [place] [id number] [place] [address] May, Flu-like symptoms R68.89 and Influenza A J10.1 [place] [id number] [place] [address] May, [place] [id number] [place] [address] May, Chronic fatigue, unspecified R53.82 [place] [id number] [place] [address] May, Anticoagulant long-term use Z79.01 [place] [id number] [place] [address] Apr, Medicare welcome exam Z00.00 ; Anticoagulant long-term use Z79.01 ; Medicare annual wellness visit, initial Z00.00 ; Medicare annual wellness visit, subsequent Z00.00 and Chronic fatigue, unspecified R53.82 [place] [id number] [place] [address] Mar, Chronic fatigue, unspecified R53.82 [place] [id number] [place] [address] Mar, Anticoagulant long-term use Z79.01 [facility] [address] [address] Mar, Anticoagulant long-term use Z79.01 and Hematuria R31.9 [facility] [id number] [place] [address] Mar, Hematuria R31.9 [facility] [id number] [place] [address] Feb, Anticoagulant long-term use Z79.01 [place] [id number] [place] [address] Feb, Anticoagulant long-term use Z79.01 [place] [id number] [place] [address] Feb, Anticoagulant long-term use Z79.01 [place] [id number] [place] [address] Feb, Chronic fatigue, unspecified R53.82 [place] [id number] [place] [address] Feb, Anticoagulant long-term use Z79.01 [place] [address] [place] [address] Feb, Congestive heart failure, unspecified congestive heart failure chronicity, unspecified congestive heart failure type I50.9 [place] [address] [address] Feb, Congestive heart failure, unspecified congestive heart failure chronicity, unspecified congestive heart failure type I50.9 [place] [address] [place] [address] Feb, [place] [id number] [place] [address] Jan, Anticoagulant long-term use Z79.01 [place] [address] [place] [address] Jan, [place] [id number] [place] [address] Jan, Anticoagulant long-term use Z79.01 and Hematuria R31.9 [place] [id number] [place] [address] Jan, Anticoagulant long-term use Z79.01 [place] [id number] [place] [address] Jan, Chronic fatigue, unspecified R53.82 [place] [id number] [place] [address] Jan, Anticoagulant long-term use Z79.01 [place] [address] [place] [address] Dec, Chronic fatigue, unspecified R53.82 [place] [id number] [place] [address] Dec, [place] [id number] [place] [address] Dec, Chronic fatigue, unspecified R53.82 and Encounter for therapeutic drug level monitoring Z51.81 [place] [id number] [place] [address] Nov, Encounter for therapeutic drug level monitoring Z51.81 [place] [id number] [place] [address] Nov, Hematuria R31.9 [place] [id number] [place] [address] Nov, Hematuria R31.9 ; Anticoagulant long-term use Z79.01 and PVD (peripheral vascular disease) I73.9 [place] [address] [place] [address] Nov, Anticoagulant long-term use Z79.01 [place] [id number] [place] [address] Nov, Anticoagulant long-term use Z79.01 [place] [address] [place] [address] Nov, [place] [id number] [place] [address] Nov, Hematuria R31.9 and Acute cystitis with hematuria N30.01 [facility] [address] [id number] Oct, [place] [id number] [place] [address] Oct, [place] [address] [address] Oct, Hematuria R31.9 [place] [id number] [place] [address] Oct, Hematuria R31.9 [place] [id number] [place] [address] Oct, Anticoagulant long-term use Z79.01 [place] [address] [address] Oct, Anticoagulant long-term use Z79.01 [place] [id number] [place] [address] Oct, [place] [address] [address] September, PVD (peripheral vascular disease) I73.9 ; Amput leg, unil NOS-comp S88.919A ; Acute cystitis without hematuria N30.00 ; Anticoagulant long-term use Z79.01 and Hypokalemia E87.6 [place] [id number] [place] [address] Aug, Anticoagulant long-term use Z79.01 and Bronchitis J40 [place] [address] [place] [address] Jul, [facility] [id number] [place] [address] Jul, Anticoagulant long-term use Z79.01 and Mood disorder F39 [facility] [id number] [place] [address] Jul, [facility] [address] [address] May, [facility] [address] [address] May, Hypokalemia E87.6 [facility] [address] [address] May, Mood disorder F39 [facility] [address] [address] May, Anticoagulant long-term use Z79.01 [facility] [address] [address] Apr, Anticoagulant long-term use Z79.01 [facility] [address] [address] Apr, Anticoagulant long-term use Z79.01 [facility] [id number] [place] [address] Apr, [facility] [address] [address] Apr, Anticoagulant long-term use Z79.01 [facility] [address] [address] Apr, Anticoagulant long-term use Z79.01 [facility] [id number] [place] [address] Apr, Anticoagulant long-term use Z79.01 [facility] [address] [address] Mar, [facility] [id number] [place] [address] Mar, [facility] [id number] [place] [address] Mar, Anticoagulant long-term use Z79.01 [facility] [id number] [place] [address] Feb, [facility] [id number] [place] [address] Feb, [facility] [address] [address] Feb, Anticoagulant long-term use Z79.01 [facility] [id number] [place] [address] Feb, Anticoagulant long-term use Z79.01 [facility] [id number] [place] [address] Jan, [facility] [id number] [place] [address] Jan, Anticoagulant long-term use Z79.01 [facility] [id number] [place] [address] Jan, Anticoagulant long-term use Z79.01 [facility] [id number] [place] [address] Dec, Anticoagulant long-term use Z79.01 [facility] [id number] [place] [address] Dec, Anticoagulant long-term use Z79.01 [facility] [id number] [place] [address] Dec, Anticoagulant long-term use Z79.01 and Mood disorder F39 [facility] [id number] [place] [address] Dec, [facility] [address], [place] [address] Nov, [facility] [id number] [place] [address] Nov, Anticoagulant long-term use Z79.01 [facility] [address] [place] [id number] [place] [address] Nov, Anticoagulant long-term use Z79.01 [facility] [address] [place] [address] [id number] [place] [address] September, Anticoagulant long-term use Z79.01 [place] [address] [place] [address] Jul, Anticoagulant long-term use Z79.01 [place] [address] [place] [address] May, Anticoagulant long-term use Z79.01 [place] [address] [place] [address] May, Anticoagulant long-term use Z79.01 [place] [address] [address] [place] [address] May, Anticoagulant long-term use Z79.01 [facility] [address] [place] [address] May, Anticoagulant long-term use Z79.01 [facility] [address] [place] [id number] [place] [address] May, [facility] [id number] [place] [address] May, Congestive heart failure, unspecified congestive heart failure chronicity, unspecified congestive heart failure type I50.9 and Pulmonary congestion R09.89 [facility] [address] [place] [address] Apr, Cough R05 ; Congestive heart failure, unspecified congestive heart failure chronicity, unspecified congestive heart failure type I50.9 and Pulmonary congestion R09.89 [facility] [id number] [place] [address] Mar, Hematuria R31.9 [facility] [id number] [place] [address] Mar, [facility] [address] [address] Mar, Anticoagulant long-term use Z79.01 [place] [id number] [place] [address] Mar, [place] [address] [address] Mar, Hematuria R31.9 and Infective urethritis N34.2 [place] [address] [address] Mar, Anticoagulant long-term use Z79.01 [place] [address] [address] Mar, Anticoagulant long-term use Z79.01 [place] [address] [id number] [place] [address] Mar, [place] [address] [id number] [place] [address] Mar, Anticoagulant long-term use Z79.01 [place] [id number] [place] [address] Feb, Peristomal skin breakdown L98.499 [place] [address] [address] Feb, [place] [address] [id number] [place] [address] Feb, UTI (urinary tract infection) N39.0 [place] [address] [address] Jan, [facility] [id number] [address] Dec, High risk medication use V58.69 [facility] [address], [place] [address] Nov, High risk medication use V58.69 [facility] [address] [place] [address] Nov, [facility] [address], [place] [address] Nov, UTI (lower urinary tract infection) 599.0 ; URI, acute 465.9 ; Insomnia 780.52 ; Anxiety 300.00 and Lower limb amputation, unspecified level V49.70 [facility] [address], [place] [address] Oct, UTI (lower urinary tract infection) 599.0 ; URI, acute 465.9 ; Insomnia 780.52 ; Anxiety 300.00 and Lower limb amputation, unspecified level V49.70 [facility] [address], [place] [address] Aug, [facility] [address], [place] [address] Aug, [facility] [address], [place] [address] Jul, [facility] [address] [id number] [address] Jul, [facility] [address], [place] [address] Jun, [facility] [address], [place] [address] Jun, [facility] [id number] [address] Mar, [facility] [place] [facility] [address] [id number] [place] [address] Mar, [facility] [place] [facility] [address] [id number] [place] [address] Mar, [facility] [place] [facility] [address] [id number] [place] [address] Mar, [facility] [place] [facility] [address] [id number] [place] [address] Mar, [facility] [place] [facility] [address] [id number] [place] [address] Feb, [facility] [place] [facility] [address] [id number] [place] [address] Feb, [facility] [place] [facility] [address] [id number] [place] [address] Feb, [facility] [place] [facility] [address] [id number] [place] [address] Feb, [facility] [place] [facility] [address] [id number] [place] [address] Feb, [facility] [place] [facility] [address] [id number] [place] [address] Feb, [facility] [place] [facility] [address] [id number] [place] [address] Feb, [facility] [place] [facility] [address] [id number] [place] [address] Feb, [facility] [place] [facility] [address] [id number] [place] [address] Feb, [facility] [place] [facility] [address] [id number] [place] [address] Feb, [facility] [place] [facility] [address] [id number] [place] [address] Feb, [facility] [place] [facility] [address] [id number] [place] [address] Feb, [facility] [place] [facility] [address] [id number] [place] [address] Feb, [facility] [place] [facility] [address] [id number] [place] [address] Feb, [facility] [place] [facility] [address] [id number] [place] [address] Feb, [facility] [place] [facility] [address] [id number] [place] [address] Feb, [facility] [place] [facility] [address] [id number] [place] [address] Jan, [facility] [place] [facility] [address] [id number] [place] [address] Jan, [facility] [place] [facility] [address] [id number] [place] [address] Jan, [facility] [place] [facility] [address] [id number] [place] [address] Jan, [facility] [place] [facility] [address] [id number] [place] [address] Jan, [facility] [place] [facility] [address] [id number] [place] [address] Nov, [facility] [place] [facility] [address] [id number] [place] [address] Nov, [facility] [place] [facility] [address] [id number], [place] [address] Nov, [facility] [place] [facility] [address] [id number] [place] [address] Nov, [facility] [place] [facility] [address] [id number] [place] [address] Nov, [facility] [place] [facility] [address] [id number] [place] [address] Nov, [facility] [place] [facility] [address] [id number] [place] [address] Oct, [facility] [place] [facility] [address] [id number] [place] [address] Oct, [facility] [place] [facility] [address] [id number] [place] [address] Oct, [facility] [place] [facility] [address] [id number] [place] [address] Oct, [facility] [place] [facility] [address] [id number] [place] [address] Oct, [facility] [place] [facility] [address] [id number] [place] [address] Oct, [facility] [place] [facility] [address] [id number] [place] [address] Oct, [facility] [place] [facility] [address] [id number] [place] [address] September, [facility] [place] [facility] [address] [id number] [place] [address] September, [facility] [place] [facility] [address] [id number] [place] [address] September, [facility] [place] [facility] [address] [id number] [place] [address] September, [facility] [place] [facility] [address] [id number] [place] [address] September, [facility] [place] [facility] [address] [id number] [place] [address] September, [facility] [place] [facility] [address] [id number] [place] [address] September, [facility] [place] [facility] [address] [id number] [place] [address] September, [facility] [place] [facility] [address] [id number] [place] [address] Aug, [facility] [place] [facility] [address] [id number] [place] [address] Aug, [facility] [place] [facility] [address] [id number] [place] [address] Aug, [facility] [place] [facility] [address] [id number] [place] [address] Aug, [facility] [place] [facility] [address] [id number] [place] [address] Jul, [facility] [place] [facility] [address] [id number] [place] [address] Jul, [facility] [place] [facility] [address] [id number] [place] [address] Jun, [facility] [place] [facility] [address] [id number] [place] [address] Jun, [facility] [place] [facility] [address] [id number] [place] [address] Jun, [facility] [place] [facility] [address] [id number] [place] [address] Jun, [facility] [place] [facility] [address] [id number] [place] [address] Jun, [facility] [place] [facility] [address] [id number] [place] [address] Jun, [facility] [place] [facility] [address] [id number] [place] [address] May, [facility] [place] [facility] [address] [id number] [place] [address] May, [facility] [place] [facility] [address] [id number] [place] [address] May, [facility] [place] [facility] [address] [id number] [place] [address] May, [facility] [place] [facility] [address] [id number] [place] [address] May, [facility] [address] [id number] [place] [address] May, [facility] [place] [facility] [address] [id number] [place] [address] Feb, [facility] [place] [facility] [address] [id number] [place] [address] Feb, [facility] [place] [facility] [address] [id number] [place] [address] Feb, [facility] [place] [facility] [address] [id number] [place] [address] Feb, [facility] [place] [facility] [address] [id number] [place] [address] Jan, [facility] [place] [facility] [address] [id number] [place] [address] Jan, [facility] [place] [facility] [address] [id number] [place] [address] Jan, [facility] [place] [facility] [address] [id number] [place] [address] Dec, [facility] [place] [facility] [address] [id number] [place] [address] Nov, [facility] [place] [facility] [address] [id number] [place] [address] Nov, [facility] [place] [facility] [address] [id number] [place] [address] Nov, [facility] [place] [facility] [address] [id number] [place] [address] Nov, [facility] [place] [facility] [address] [id number] [place] [address] Nov, [facility] [place] [facility] [address] [id number] [place] [address] Oct, [facility] [place] [facility] [address] [id number] [place] [address] September, [facility] [address] [id number] [place] [address] September, [facility] [address] [id number] [place] [address] Aug, [facility] [address] [id number] [place] [address] Aug, [facility] [address] [id number] [place] [address] Jul, [facility] [address] [id number] [place] [address] Jul, [facility] [address] [id number] [place] [address] Jul, [facility] [address] [id number] [place] [address] Jul, [facility] [address] [id number] [place] [address] Jun, [facility] [address] [id number] [place] [address] Jun, [facility] [address] [id number] [place] [address] Jun, [facility] [address] [id number] [place] [address] May, [facility] [place] [facility] [address] [id number] [place] [address] May, [facility] [place] [facility] [address] [id number] [place] [address] May, [facility] [place] [facility] [address] [id number] [place] [address] May, [facility] [place] [facility] [address] [id number][place] [address] Apr, [facility] [place] [facility] [address] [id number] [place] [address] Apr, [facility] [place] [facility] [address] [id number] [place] [address] Apr, [facility] [place] [facility] [address] [id number] [place] [address] Apr, [facility] [place] [facility] [address] [id number] [place] [address] Apr, [facility] [place] [facility] [address] [id number] [place] [address] Apr, [facility] [place] [facility] [address] [id number] [place] [address] Mar, [facility] [place] [facility] [address] [id number] [place] [address] Mar, [facility] [place] [facility] [address] [id number] [place] [address] Mar, [facility] [place] [facility] [address] [id number], [place] [address] Mar, [facility] [place] [facility] [address] [id number] [place] [address] Mar, [facility] [place] [facility] [address] [id number], [place] [address] Mar, [facility] [place] [facility] [address] [id number], [place] [address] Feb, [facility] [place] [facility] [address] [id number], [place] [address] Feb, [facility] [place] [facility] [address] [id number], [place] [address] Feb, [facility] [place] [facility] [address] [id number] [place] [address] Feb, [facility] [place] [facility] [address] [id number] [place] [address] 25 Jan, 2012 [facility] [address] [id number] [place] [address] 25 Jan, 2012 [facility] [place] [facility] [address] [id number] [place] [address] 24 Jan, 2012 [facility] [address] [id number] [place] [address] Jan, [facility] [address] [id number] [place] [address] Dec, [facility] [address] [id number] [place] [address] Dec, [facility] [address] [id number] [place] [address] Nov, [facility] [address] [id number] [place] [address] Oct, [facility] [address] [id number] [place] [address] Oct, [facility] [address] [id number] [place] [address] Oct, [facility] [address] [id number] [place] [address] September, [facility] [address] [id number] [place] [address] September, [facility] [address] [id number] [place] [address] September, [facility] [place] [facility] [address] [id number] [place] [address] September, [facility] [address] [id number] [place] [address] September, [facility] [address] [id number] [place] [address] September, [facility] [place] [facility] [address] [id number] [place] [address] September, [facility] [place] [facility] [address] [id number] [place] [address] Jul, [facility] [place] [facility] [address] [id number] [place] [address] Jul, [facility] [place] [facility] [address] [id number] [place] [address] Jun, [facility] [place] [facility] [address] [id number] [place] [address] Jun, [facility] [place] [facility] [address] [id number] [place] [address] Jun, [facility] [place] [facility] [address] [id number] [place] [address] May, [facility] [place] [facility] [address] [id number] [place] [address] Mar, [facility] [place] [facility] [address] [id number] [place] [address] Mar, [facility] [place] [facility] [address] [id number] [place] [address] Mar, [facility] [place] [facility] [address] [id number] [place] [address] Feb, [facility] [place] [facility] [address] [id number], [place] [address] Feb, [facility] [place] [facility] [address] [id number] [place] [address] Dec, [facility] [place] [facility] [address] [id number] [place] [address] 15 May, 2009 [facility] [place] [facility] [address] [id number] [place] [address] Apr, [facility] [place] [facility] [address] [facility] [id number] [place] [address] 28 Apr, 2009 [facility] [address] [facility] [id number], [place] [address] Apr, [facility] [address] [id number], [place] [address] Apr, [facility] [address] [facility] [id number], [place] [address] Feb, [facility] [address] [facility] [id number], [place] [address] Oct, IMMUNIZATIONS No Known Immunizations SOCIAL HISTORY [...] 5th toe removal 06/25/2009 Hospitalization History pneumonia, hypoxia-[facility] 11/03/16
--- OUTSIDE RECORDS SUMMARY | 2018-12-05 12:15 | XMS REPORT ---
Author Author ERIK SAMAYOA [facility] Address [address] [place] [address] Care Team Providers Care Medicine Assistant Name Role Phone ERIK SAMAYOA Unavailable PROBLEMS Type Condition ICD9-CM Code [id number]-EO Code Onset Dates Condition Status SNOMED Code Problem Chronic fatigue, unspecified R53.82 Active 534306385 Problem PVD (peripheral vascular disease) I73.9 Active 946207767 Problem Anticoagulant long-term use Z79.01 Active 366706098 Problem Major depressive disorder, single episode, unspecified F32.9 Active 15567294 Problem Amput leg, unil NOS-comp S88.919A Active 53194805 Problem Mood disorder F39 Active 86942686 ALLERGIES No Known Allergies SOCIAL HISTORY No smoking Hx information available PLAN OF CARE VITAL SIGNS MEDICATIONS Unknown Medications RESULTS Name Result Date Reference Range INR (IN HOUSE) 2016-05-17 INR 2.7 1.10 - 3.30 PREVIOUS INR 1.8 CURRENT COUMADIN DOSE SEE INTERNAL NEW COUMADIN DOSE Lot # [id number] Exp date 03/2017 PROCEDURES Procedure Date Ordered Related Diagnosis Body Site PROTHROMBIN TIME May 17, 2016 IMMUNIZATIONS No Known Immunizations
[2018-12-05 12:16] VITALS: BP 105/64
--- OUTSIDE RECORDS SUMMARY | 2018-12-05 12:16 | XMS REPORT ---
Author Author ERIK SAMAYOA Organization [facility] Address [address] [place] [address] Care Team Providers Care Senior Analyst Programmer Name Role Phone ERIK SAMAYOA Unavailable PROBLEMS Type Condition ICD9-CM Code EVM67-AP Code Onset Dates Condition Status SNOMED Code Problem Major depressive disorder, single episode, unspecified F32.9 Active 80097731 Problem Anticoagulant long-term use Z79.01 Active 914407159 Problem Acute cystitis with hematuria N30.01 Active 21071862 Problem Vitamin B12 deficiency E53.8 Dec, Active 539877915 Problem Congestive heart failure, unspecified congestive heart failure chronicity, unspecified congestive heart failure type I50.9 Active 54462047 Problem Amput leg, unil NOS-comp S88.919A Active 14024519 Problem Mood disorder F39 Active 17017033 Problem Chronic fatigue, unspecified R53.82 Active 155335240 Problem PVD (peripheral vascular disease) I73.9 Active 233300026 ALLERGIES Substance Reaction Event Type Date Status Penicillin V Potassium Unknown Drug Allergy Apr, Active Morphine Sulfate Unknown Drug Allergy Apr, Active Codeine Sulfate Unknown Drug Allergy Apr, Active Aspir-81 Unknown Drug Allergy Apr, Active ENCOUNTERS Encounter Location Date Diagnosis [facility] [id number] [address] Oct, [facility] [id number] [address] September, Anticoagulant long-term use Z79.01 and Congestive heart failure, unspecified congestive heart failure chronicity, unspecified congestive heart failure type I50.9 [facility] [address] [id number] [address] September, Vitamin B12 deficiency E53.8 [facility] [id number] [place] [address] September, Anticoagulant long-term use Z79.01 [facility] [id number] [place] [address] September, Anticoagulant long-term use Z79.01 and Congestive heart failure, unspecified congestive heart failure chronicity, unspecified congestive heart failure type I50.9 [place] [address] [address] Aug, Chronic fatigue, unspecified R53.82 [place] [address] [address] Aug, Anticoagulant long-term use Z79.01 [place] [address] [address] Aug, Nausea R11.0 and Weakness R53.1 [place] [address] [address] Aug, [facility] [address] [address] Aug, Hematuria R31.9 and Acute cystitis with hematuria N30.01 [place] [address] [address] Aug, [facility] [address] [address] Jul, Vitamin B 12 deficiency E53.8 [place] [address] [address] Jul, Anticoagulant long-term use Z79.01 [place] [address] [address] Jun, Anticoagulant long-term use Z79.01 [place] [id number] [place] [address] Jun, Chronic fatigue, unspecified R53.82 [place] [address] [place] [address] May, Flu-like symptoms R68.89 and Influenza A J10.1 [place] [address] [address] May, [place] [id number] [place] [address] May, Anticoagulant long-term use Z79.01 [place] [id number] [place] [address] May, Chronic fatigue, unspecified R53.82 [place] [address] [address] Apr, Medicare welcome exam Z00.00 ; Anticoagulant long-term use Z79.01 ; Medicare annual wellness visit, initial Z00.00 ; Medicare annual wellness visit, subsequent Z00.00 and Chronic fatigue, unspecified R53.82 [place] [address] [address] Mar, Chronic fatigue, unspecified R53.82 [place] [address] [address] Mar, Anticoagulant long-term use Z79.01 [place] [id number] [place] [address] Mar, Anticoagulant long-term use Z79.01 and Hematuria R31.9 [place] [id number] [place] [address] Mar, Hematuria R31.9 [place] [id number] [place] [address] Feb, Anticoagulant long-term use Z79.01 [place] [id number] [place] [address] Feb, Anticoagulant long-term use Z79.01 [place] [address] [address] Feb, Anticoagulant long-term use Z79.01 [place] [id number] [place] [address] Feb, Chronic fatigue, unspecified R53.82 [place] [id number] [place] [address] Feb, Anticoagulant long-term use Z79.01 [place] [id number] [place] [address] Feb, Congestive heart failure, unspecified congestive heart failure chronicity, unspecified congestive heart failure type I50.9 [place] [id number] [place] [address] Feb, Congestive heart failure, unspecified congestive heart failure chronicity, unspecified congestive heart failure type I50.9 [place] [id number] [place] [address] Feb, [facility] [id number] [place] [address] Jan, Anticoagulant long-term use Z79.01 [place] [id number] [place] [address] Jan, [place] [id number] [place] [address] Jan, Anticoagulant long-term use Z79.01 and Hematuria R31.9 [place] [address] [place] [address] Jan, Anticoagulant long-term use Z79.01 [place] [id number] [place] [address] Jan, Anticoagulant long-term use Z79.01 [place] [address] [place] [address] Jan, Chronic fatigue, unspecified R53.82 [place] [id number] [place] [address] Dec, Chronic fatigue, unspecified R53.82 [place] [id number] [place] [address] Dec, [facility] [address] [address] Dec, Chronic fatigue, unspecified R53.82 and Encounter for therapeutic drug level monitoring Z51.81 [place] [address] [address] Nov, Encounter for therapeutic drug level monitoring Z51.81 [place] [address] [address] Nov, Hematuria R31.9 [place] [address] [address] Nov, Hematuria R31.9 ; Anticoagulant long-term use Z79.01 and PVD (peripheral vascular disease) I73.9 [place] [id number] [place] [address] Nov, Anticoagulant long-term use Z79.01 [place] [address] [address] Nov, Anticoagulant long-term use Z79.01 [place] [id number] [place] [address] Nov, [place] [id number] [place] [address] Nov, Hematuria R31.9 and Acute cystitis with hematuria N30.01 [facility] [address] [id number] Oct, [facility] [address] [address] Oct, [place] [address] [address] Oct, Hematuria R31.9 [facility] [id number] [place] [address] Oct, Hematuria R31.9 [facility] [id number] [place] [address] Oct, Anticoagulant long-term use Z79.01 [place] [address] [address] Oct, Anticoagulant long-term use Z79.01 [place] [id number] [place] [address] Oct, [place] [address] [address] September, PVD (peripheral vascular disease) I73.9 ; Amput leg, unil NOS-comp S88.919A ; Acute cystitis without hematuria N30.00 ; Anticoagulant long-term use Z79.01 and Hypokalemia E87.6 [place] [id number] [place] [address] Aug, Anticoagulant long-term use Z79.01 and Bronchitis J40 [place] [id number] [place] [address] Jul, [place] [id number] [place] [address] Jul, Anticoagulant long-term use Z79.01 and Mood disorder F39 [place] [id number] [place] [address] Jul, [place] [address] [address] May, [place] [address] [address] May, Hypokalemia E87.6 [place] [address] [address] May, Mood disorder F39 [facility] [id number] [place] [address] May, Anticoagulant long-term use Z79.01 [facility] [id number] [place] [address] Apr, Anticoagulant long-term use Z79.01 [facility] [address] [address] Apr, Anticoagulant long-term use Z79.01 [facility] [id number] [place] [address] Apr, [facility] [address] [address] Apr, Anticoagulant long-term use Z79.01 [facility] [id number] [place] [address] Apr, Anticoagulant long-term use Z79.01 [facility] [id number] [place] [address] Apr, Anticoagulant long-term use Z79.01 [facility] [id number] [place] [address] Mar, [facility] [id number] [place] [address] Mar, [facility] [id number] [place] [address] Mar, Anticoagulant long-term use Z79.01 [facility] [id number] [place] [address] Feb, [facility] [address] [address] Feb, [facility] [id number] [place] [address] Feb, Anticoagulant long-term use Z79.01 [facility] [id number] [place] [address] Feb, Anticoagulant long-term use Z79.01 [facility] [id number] [place] [address] Jan, [facility] [address] [address] Jan, Anticoagulant long-term use Z79.01 [facility] [address] [address] Jan, Anticoagulant long-term use Z79.01 [facility] [address] [address] Dec, Anticoagulant long-term use Z79.01 [facility] [address] [address] Dec, Anticoagulant long-term use Z79.01 [facility] [id number] [place] [address] Dec, Anticoagulant long-term use Z79.01 and Mood disorder F39 [facility] [address] [address] Dec, [facility] [id number] [place] [address] Nov, [facility] [id number] [place] [address] Nov, Anticoagulant long-term use Z79.01 [facility] [id number] [place] [address] Nov, Anticoagulant long-term use Z79.01 [facility] [id number] [place] [address] September, Anticoagulant long-term use Z79.01 [facility] [id number] [place] [address] Jul, Anticoagulant long-term use Z79.01 [facility] [id number] [place] [address] May, Anticoagulant long-term use Z79.01 [facility] [id number] [place] [address] May, Anticoagulant long-term use Z79.01 [facility] [address] [address] May, Anticoagulant long-term use Z79.01 [facility] [address] [address] May, Anticoagulant long-term use Z79.01 [place] [id number] [place] [address] May, [place] [id number] [place] [address] May, Congestive heart failure, unspecified congestive heart failure chronicity, unspecified congestive heart failure type I50.9 and Pulmonary congestion R09.89 [place] [id number] [place] [address] Apr, Cough R05 ; Congestive heart failure, unspecified congestive heart failure chronicity, unspecified congestive heart failure type I50.9 and Pulmonary congestion R09.89 [place] [id number] [place] [address] Mar, Hematuria R31.9 [place] [id number] [place] [address] Mar, [place] [id number] [place] [address] Mar, Anticoagulant long-term use Z79.01 [facility] [id number] [place] [address] Mar, [place] [address] [address] Mar, Hematuria R31.9 and Infective urethritis N34.2 [facility] [address], [place] [address] Mar, Anticoagulant long-term use Z79.01 [facility] [address] [place] [address] Mar, Anticoagulant long-term use Z79.01 [facility] [id number] [place] [address] Mar, [facility] [id number] [place] [address] Mar, Anticoagulant long-term use Z79.01 [facility] [id number] [place] [address] Feb, Peristomal skin breakdown L98.499 [place] [id number] [place] [address] Feb, [facility] [address] [place] [address] Feb, UTI (urinary tract infection) N39.0 [place] [address] [place] [address] Jan, [place] [address] [place] [address] Dec, High risk medication use V58.69 [place] [address] [place] [address] Nov, High risk medication use V58.69 [place] [address] [place] [address] Nov, [place] [address] [place] [address] Nov, UTI (lower urinary tract infection) 599.0 ; URI, acute 465.9 ; Insomnia 780.52 ; Anxiety 300.00 and Lower limb amputation, unspecified level V49.70 [facility] [address] [id number] [address] 10 Oct, 2014 UTI (lower urinary tract infection) 599.0 ; URI, acute 465.9 ; Insomnia 780.52 ; Anxiety 300.00 and Lower limb amputation, unspecified level V49.70 [facility] [address] [id number], [place] [address] 14 Aug, 2014 [facility] [address] [id number], [place] [address] Aug, [facility] [address] [facility] [id number] [address] Jul, [facility] [address] [facility] [id number], [place] [address] Jul, [facility] [id number], [place] [address] Jun, [facility] [address] [facility] [id number], [place] [address] Jun, [facility] [id number] [address] Mar, [facility] [address] [facility] [id number], [place] [address] Mar, [facility] [address] [facility] [id number], [place] [address] Mar, [facility] [address] [facility] [id number], [place] [address] Mar, [facility] [address] [facility] [id number], [place] [address] Mar, [facility] [address] [facility] [id number], [place] [address] Feb, [facility] [address] [facility] [id number], [place] [address] Feb, [facility] [address] [id number] [place] [address] 29 Feb, 2013 [facility] [place] [facility] [address] [id number] [place] [address] Feb, 2013 [facility] [place] [facility] [address] [id number] [place] [address] Feb, 2013 [facility] [place] [facility] [address] [id number] [place] [address] Feb, 2013 [facility] [place] [facility] [address] [id number] [place] [address] Feb, 2013 [facility] [place] [facility] [address] [id number] [place] [address] Feb, 2013 [facility] [place] [facility] [address] [id number] [place] [address] Feb, 2013 [facility] [place] [facility] [address] [id number] [place] [address] Feb, 2013 [facility] [place] [facility] [address] [id number] [place] [address] Feb, [facility] [place] [facility] [address] [id number] [place] [address] Feb, [facility] [place] [facility] [address] [id number] [place] [address] Feb, [facility] [place] [facility] [address] [id number] [place] [address] Feb, [facility] [place] [facility] [address] [id number] [place] [address] Feb, [facility] [place] [facility] [address] [id number] [place] [address] Feb, [facility] [place] [facility] [address] [id number] [place] [address] 28 Jan, 2014 [facility] [place] [facility] [address] [id number] [place] [address] Jan, 2013 [facility] [place] [facility] [address] [id number] [place] [address] Jan, 2013 [facility] [place] [facility] [address] [id number] [place] [address] Jan, [facility] [place] [facility] [address] [id number] [place] [address] Jan, [facility] [place] [facility] [address] [id number] [place] [address] Nov, [facility] [place] [facility] [address] [id number] [place] [address] Nov, [facility] [place] [facility] [address] [id number] [place] [address] Nov, [facility] [place] [facility] [address] [id number] [place] [address] Nov, [facility] [place] [facility] [address] [id number] [place] [address] Nov, [facility] [place] [facility] [address] [id number] [place] [address] Nov, [facility] [place] [facility] [address] [id number] [place] [address] Oct, [facility] [place] [facility] [address] [id number] [place] [address] Oct, [facility] [place] [facility] [address] [id number], [place] [address] Oct, [facility] [place] [facility] [address] [id number] [place] [address] Oct, [facility] [place] [facility] [address] [id number] [place] [address] Oct, [facility] [place] [facility] [address] [id number] [place] [address] Oct, [facility] [place] [facility] [address] [id number], [place] [address] Oct, [facility] [address] [id number] [place] [address] September, [facility] [place] [facility] [address] [id number] [place] [address] September, [facility] [address] [id number] [place] [address] September, [facility] [place] [facility] [address] [id number] [place] [address] September, [facility] [address] [id number] [place] [address] September, [facility] [place] [facility] [address] [id number] [place] [address] September, [facility] [address] [id number] [place] [address] September, [facility] [place] [facility] [address] [id number] [place] [address] September, [facility] [address] [id number] [place] [address] Aug, [facility] [place] [facility] [address] [id number] [place] [address] Aug, [facility] [place] [facility] [address] [id number] [place] [address] Aug, [facility] [place] [facility] [address] [id number] [place] [address] Aug, [facility] [place] [facility] [address] [id number] [place] [address] Jul, [facility] [place] [facility] [address] [id number] [place] [address] Jul, [facility] [place] [facility] [address] [id number] [place] [address] Jun, [facility] [place] [facility] [address] [id number] [place] [address] Jun, [facility] [place] [facility] [address] [id number] [place] [address] Jun, [facility] [place] [facility] [address] [id number] [place] [address] Jun, [facility] [place] [facility] [address] [id number] [place] [address] Jun, [facility] [place] [facility] [address] [id number] [place] [address] Jun, [facility] [place] [facility] [address] [id number] [place] [address] May, [facility] [place] [facility] [address] [id number] [place] [address] May, [facility] [place] [facility] [address] [id number] [place] [address] May, [facility] [place] [facility] [address] [id number] [place] [address] May, [facility] [place] [facility] [address] [id number] [place] [address] May, [facility] [place] [facility] [address] [id number], [place] [address] May, [facility] [place] [facility] [address] [id number], [place] [address] Feb, [facility] [place] [facility] [address] [id number] [place] [address] Feb, [facility] [place] [facility] [address] [id number], [place] [address] Feb, [facility] [place] [facility] [address] [id number], [place] [address] Feb, [facility] [place] [facility] [address] [id number], [place] [address] 04 Jan, 2013 [facility] [address] [id number] [place] [address] Jan, [facility] [place] [facility] [address] [id number] [place] [address] Jan, [facility] [address] [id number] [place] [address] Dec, [facility] [place] [facility] [address] [id number] [place] [address] Nov, [facility] [address] [id number] [place] [address] Nov, [facility] [address] [id number] [place] [address] Nov, [facility] [address] [id number] [place] [address] Nov, [facility] [address] [id number] [place] [address] Nov, [facility] [address] [id number] [place] [address] Oct, [facility] [address] [id number] [place] [address] September, [facility] [address] [id number] [place] [address] September, [facility] [place] [facility] [address] [id number] [place] [address] Aug, [facility] [place] [facility] [address] [id number] [place] [address] Aug, [facility] [place] [facility] [address] [id number] [place] [address] 29 Jul, 2012 [facility] [place] [facility] [address] [id number] [place] [address] Jul, [facility] [place] [facility] [address] [id number] [place] [address] 08 Jul, 2012 [facility] [address] [id number] [place] [address] Jul, [facility] [place] [facility] [address] [id number] [place] [address] Jun, [facility] [place] [facility] [address] [id number] [place] [address] Jun, [facility] [place] [facility] [address] [id number] [place] [address] Jun, [facility] [place] [facility] [address] [id number] [place] [address] May, [facility] [address] [id number] [place] [address] May, [facility] [address] [id number] [place] [address] May, [facility] [address] [id number] [place] [address] May, [facility] [address] [id number] [place] [address] Apr, [facility] [address] [id number] [place] [address] Apr, [facility] [address] [id number] [place] [address] Apr, [facility] [place] [facility] [address] [id number] [place] [address] Apr, [facility] [place] [facility] [address] [id number] [place] [address] Apr, [facility] [place] [facility] [address] [id number] [place] [address] Apr, [facility] [place] [facility] [address] [id number] [place] [address] Mar, [facility] [place] [facility] [address] [id number] [place] [address] Mar, [facility] [place] [facility] [address] [id number] [place] [address] Mar, [facility] [place] [facility] [address] [facility] [id number] [place] [address] Mar, [facility] [place] [facility] [address] [id number] [place] [address] Mar, [facility] [place] [facility] [address] [id number] [place] [address] Mar, [facility] [place] [facility] [address] [id number] [place] [address] Feb, [facility] [place] [facility] [address] [facility] [id number] [place] [address] Feb, [facility] [place] [facility] [address] [id number], [place] [address] Feb, [facility] [place] [facility] [address] [id number] [place] [address] Feb, [facility] [place] [facility] [address] [facility] [id number], [place] [address] Jan, [facility] [place] [facility] [address] [id number], [place] [address] 25 Jan, 2012 [facility] [place] [facility] [address] [id number], [place] [address] 24 Jan, 2012 [facility] [place] [facility] [address] [id number], [place] [address] 10 Jan, 2012 [facility] [place] [facility] [address] [facility] [id number], [place] [address] Dec, [facility] [place] [facility] [address] [facility] [id number], [place] [address] Dec, [facility] [place] [facility] [address] [id number] [place] [address] Nov, [facility] [address] [id number] [place] [address] Oct, [facility] [place] [facility] [address] [id number] [place] [address] Oct, [facility] [place] [facility] [address] [id number] [place] [address] Oct, [facility] [place] [facility] [address] [id number] [place] [address] September, [facility] [place] [facility] [address] [id number] [place] [address] September, [facility] [place] [facility] [address] [id number] [place] [address] September, [facility] [address] [id number] [place] [address] September, [facility] [address] [id number] [place] [address] September, [facility] [place] [facility] [address] [id number] [place] [address] September, [facility] [address] [facility] [id number] [place] [address] September, [facility] [place] [facility] [address] [id number] [place] [address] Jul, [facility] [place] [facility] [address] [id number] [place] [address] Jul, [facility] [place] [facility] [address] [id number] [place] [address] Jun, [facility] [place] [facility] [address] [id number] [place] [address] Jun, [facility] [place] [facility] [address] [id number] [place] [address] Jun, [facility] [address] [facility] [id number], [place] [address] May, [facility] [address] [facility] [id number], [place] [address] Mar, [facility] [address] [facility] [id number], [place] [address] Mar, [facility] [address] [facility] [id number], [place] [address] Mar, [facility] [address] [facility] [id number], [place] [address] Feb, [facility] [address] [facility] [id number], [place] [address] Feb, [facility] [id number], [place] [address] Dec, [facility] [id number], [place] [address] May, [facility] [id number], [place] [address] Apr, [facility] [id number], [place] [address] Apr, [facility] [address] [id number], [place] [address] Apr, [facility] [address] [id number], [place] [address] Apr, [facility] [address] [id number], [place] [address] Feb, [facility] [address] [id number], [place] [address] Oct, IMMUNIZATIONS Vaccine Route Administration Date Status B12, VITAMIN (UP TO 1000 MCG) IM Intramuscular Apr 21, 2017 Administered SOCIAL HISTORY Never Assessed REASON FOR VISIT Medicare AWV----DBshandrattMINNIE PLAN OF CARE Activity Details Follow Up annually for preventive care, sooner for chronic health maintenance Reason: VITAL SIGNS Height 62 in 2017-04-21 Weight 132 lbs 2017-04-21 Temperature 98.0 degrees Fahrenheit 2017-04-21 Heart Rate 80 bpm 2017-04-21 Respiratory Rate 20 2017-04-21 BMI 24.14 kg/m2 2017-04-21 Blood pressure systolic 122 mmHg 2017-04-21 Blood pressure diastolic 60 mmHg 2017-04-21 MEDICATIONS Medication Instructions Dosage Frequency Start Date End Date Duration Status Lisinopril 10 mg Orally Once a day 1 tablet 24h Active PredniSONE 20 mg Orally Once a day 2 tablets 24h Apr, Apr, 05 days Active Simvastatin 20 mg Orally Once a day 2 tablets 24h Active Folic Acid 1 MG Orally Once a day 1 tablet 24h Active Warfarin Sodium 2 MG Orally once weekly on 1 tablet Active Clopidogrel Bisulfate 75 MG Orally Once a day 1 tablet 24h Active Paroxetine HCl 10 mg Orally Once a day 1 tablet in the morning 24h Active Metoprolol Succinate ER 50MG Orally Once a day 1 tablet 24h 90 days Active Amlodipine Besylate 10 MG Orally Once a day 1 tablet 24h 90 days Active Montelukast Sodium 10 mg Orally Once a day 1 tablet in the evening 24h Active Klor-Con M20 20 meq Orally Once a day 1 tablet with food 24h 30 Active Warfarin Sodium 1 MG Orally 6 times weekly on Monday, Monday, Monday, Monday, Monday and Monday 1 tablet Active RESULTS Name Result Date Reference Range INR (IN HOUSE) 2017-04-21 INR 3.5 1.10 - 3.30 PREVIOUS INR 1.5 CURRENT COUMADIN DOSE same NEW COUMADIN DOSE Lot # Exp date PROCEDURES Procedure Date Ordered Result Body Site ANNUAL THAO VST; PERSNL PPS INIT Apr 21, 2017 FALL RISK ASSESSMENT DOCD Apr 21, 2017 THER/PROPH/DIAG INJ, SC/IM Apr 21, 2017 B12, VITAMIN (UP TO 1000 MCG) Apr 21, 2017 PROTHROMBIN TIME Apr 21, 2017 PT TOBACCO SCREEN RCVD TLK Apr 21, 2017 [facility] VISIT ESTABLISHED PATIENT Apr 21, 2017 INSTRUCTIONS MEDICATIONS ADMINISTERED No Known Medications [...]
--- OUTSIDE RECORDS SUMMARY | 2018-12-05 12:17 | XMS REPORT ---
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
--- OUTSIDE RECORDS SUMMARY | 2018-12-05 12:17 | XMS REPORT ---
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
--- OUTSIDE RECORDS SUMMARY | 2018-12-05 12:17 | XMS REPORT ---
Author Author ERIK SAMAYOA Organization [facility] Address [address] [place] [address] Care Team Providers Care Line Closer Name Role Phone ERIK SAMAYOA Unavailable PROBLEMS Type Condition ICD9-CM Code BGL81-BD Code Onset Dates Condition Status SNOMED Code Problem Major depressive disorder, single episode, unspecified F32.9 Active 00128982 Problem Anticoagulant long-term use Z79.01 Active 800628908 Problem Acute cystitis with hematuria N30.01 Active 30178334 Problem Vitamin B12 deficiency E53.8 Dec, Active 165630580 Problem Congestive heart failure, unspecified congestive heart failure chronicity, unspecified congestive heart failure type I50.9 Active 87111178 Problem Amput leg, unil NOS-comp S88.919A Active 64566504 Problem Mood disorder F39 Active 90106348 Problem Chronic fatigue, unspecified R53.82 Active 479074088 Problem PVD (peripheral vascular disease) I73.9 Active 507634515 ALLERGIES No Information ENCOUNTERS Encounter Location Date Diagnosis [place] [id number] [place] [address] Oct, [facility] [id number] [place] [address] September, Anticoagulant long-term use Z79.01 and Congestive heart failure, unspecified congestive heart failure chronicity, unspecified congestive heart failure type I50.9 [facility] [address] [address] September, Vitamin B12 deficiency E53.8 [facility] [address] [address] September, Anticoagulant long-term use Z79.01 [facility] [id number] [place] [address] September, Anticoagulant long-term use Z79.01 and Congestive heart failure, unspecified congestive heart failure chronicity, unspecified congestive heart failure type I50.9 [place] [address] [address] Aug, Chronic fatigue, unspecified R53.82 [place] [address] [address] Aug, Anticoagulant long-term use Z79.01 [place] [address] [address] Aug, Nausea R11.0 and Weakness R53.[address] [address] Aug, [facility] [address] [address] Aug, Hematuria R31.9 and Acute cystitis with hematuria N30.01 [place] [address] [address] Aug, [place] [address] [address] Jul, Vitamin B 12 deficiency E53.8 [place] [address] [address] Jul, Anticoagulant long-term use Z79.01 [place] [address] [address] Jun, Chronic fatigue, unspecified R53.82 [place] [address] [address] Jun, Anticoagulant long-term use Z79.01 [place] [address] [address] May, Flu-like symptoms R68.89 and Influenza A J10.1 [place] [address] [place] [address] May, [facility] [address] [place] [id number] [place] [address] May, Chronic fatigue, unspecified R53.82 [facility] [address] [place] [id number] [place] [address] May, Anticoagulant long-term use Z79.01 [place] [address] [place] [id number] [place] [address] Apr, Medicare welcome exam Z00.00 ; Anticoagulant long-term use Z79.01 ; Medicare annual wellness visit, initial Z00.00 ; Medicare annual wellness visit, subsequent Z00.00 and Chronic fatigue, unspecified R53.82 [place] [address] [place] [id number] [place] [address] Mar, Chronic fatigue, unspecified R53.82 [place] [address] [place] [id number] [place] [address] Mar, Anticoagulant long-term use Z79.01 [place] [address] [place] [id number] [place] [address] Mar, Anticoagulant long-term use Z79.01 and Hematuria R31.9 [place] [address] [place] [id number] [place] [address] Mar, Hematuria R31.9 [place] [address] [place] [id number] [place] [address] Feb, Anticoagulant long-term use Z79.01 [place] [address] [place] [id number] [place] [address] Feb, Anticoagulant long-term use Z79.01 [place] [address] [place] [id number] [place] [address] Feb, Anticoagulant long-term use Z79.01 [place] [address] [place] [id number] [place] [address] Feb, Chronic fatigue, unspecified R53.82 [facility] [address] [address] Feb, Anticoagulant long-term use Z79.01 [facility] [address] [place] [address] Feb, Congestive heart failure, unspecified congestive heart failure chronicity, unspecified congestive heart failure type I50.9 [facility] [address] [place] [id number] [place] [address] Feb, Congestive heart failure, unspecified congestive heart failure chronicity, unspecified congestive heart failure type I50.9 [facility] [address] [place] [id number] [place] [address] Feb, [facility] [address] [place] [id number] [place] [address] Jan, Anticoagulant long-term use Z79.01 [facility] [address] [place] [id number] [place] [address] Jan, [facility] [address] [place] [id number] [place] [address] Jan, Anticoagulant long-term use Z79.01 and Hematuria R31.9 [facility] [address] [place] [address] Jan, Anticoagulant long-term use Z79.01 [facility] [address] [place] [address] Jan, Chronic fatigue, unspecified R53.82 [facility] [address] [place] [address] Jan, Anticoagulant long-term use Z79.01 [facility] [address] [place] [address] Dec, Chronic fatigue, unspecified R53.82 [facility] [address] [place] [id number] [place] [address] Dec, [facility] [id number] [place] [address] Dec, Chronic fatigue, unspecified R53.82 and Encounter for therapeutic drug level monitoring Z51.81 [facility] [address] [place] [id number] [place] [address] Nov, Encounter for therapeutic drug level monitoring Z51.81 [facility] [address] [place] [id number] [place] [address] Nov, Hematuria R31.9 [facility] [address] [place] [id number] [place] [address] Nov, Hematuria R31.9 ; Anticoagulant long-term use Z79.01 and PVD (peripheral vascular disease) I73.9 [facility] [address] [place] [id number] [place] [address] Nov, Anticoagulant long-term use Z79.01 [facility] [address] [place] [id number] [place] [address] Nov, Anticoagulant long-term use Z79.01 [facility] [address] [place] [id number] [place] [address] Nov, [facility] [address] [place] [id number] [place] [address] Nov, Hematuria R31.9 and Acute cystitis with hematuria N30.01 [facility] [address] [place] [id number] [place] [id number] Oct, [facility] [address] [place] [id number] [place] [address] Oct, [facility] [address] [place] [id number] [place] [address] Oct, Hematuria R31.9 [facility] [id number] [place] [address] Oct, Hematuria R31.9 [place] [address] [place] [id number] [place] [address] Oct, Anticoagulant long-term use Z79.01 [place] [address] [address] Oct, Anticoagulant long-term use Z79.01 [place] [address] [place] [id number] [place] [address] Oct, [place] [address] [address] September, PVD (peripheral vascular disease) I73.9 ; Amput leg, unil NOS-comp S88.919A ; Acute cystitis without hematuria N30.00 ; Anticoagulant long-term use Z79.01 and Hypokalemia E87.6 [place] [address] [place] [id number] [place] [address] Aug, Anticoagulant long-term use Z79.01 and Bronchitis J40 [place] [address] [place] [id number] [place] [address] Jul, [place] [address] [address] Jul, Anticoagulant long-term use Z79.01 and Mood disorder F39 [place] [address] [place] [id number] [place] [address] Jul, [place] [address] [place] [id number] [place] [address] May, [place] [address] [place] [id number] [place] [address] May, Hypokalemia E87.6 [place] [address] [address] May, Mood disorder F39 [place] [address] [place] [id number] [place] [address] May, Anticoagulant long-term use Z79.01 [facility] [address] [place] [id number] [place] [address] Apr, Anticoagulant long-term use Z79.01 [facility] [address] [place] [id number] [place] [address] Apr, Anticoagulant long-term use Z79.01 [facility] [address] [place] [id number] [place] [address] Apr, [facility] [address] [place] [id number] [place] [address] Apr, Anticoagulant long-term use Z79.01 [facility] [address] [place] [id number] [place] [address] Apr, Anticoagulant long-term use Z79.01 [facility] [address] [place] [id number] [place] [address] Apr, Anticoagulant long-term use Z79.01 [facility] [address] [place] [id number] [place] [address] Mar, [facility] [address] [place] [id number] [place] [address] Mar, [facility] [address] [place] [id number] [place] [address] Mar, Anticoagulant long-term use Z79.01 [facility] [address] [place] [id number] [place] [address] Feb, [facility] [address] [place] [id number] [place] [address] Feb, [facility] [address] [address] 07 Feb, 2016 Anticoagulant long-term use Z79.01 [facility] [address] [place] [id number] [place] [address] 05 Feb, 2016 Anticoagulant long-term use Z79.01 [facility] [address] [place] [id number] [place] [address] Jan, [facility] [address] [place] [id number] [place] [address] Jan, Anticoagulant long-term use Z79.01 [facility] [address] [place] [id number] [place] [address] Jan, Anticoagulant long-term use Z79.01 [facility] [address] [address] Dec, Anticoagulant long-term use Z79.01 [facility] [address] [place] [id number] [place] [address] Dec, Anticoagulant long-term use Z79.01 [facility] [address] [place] [id number] [place] [address] Dec, Anticoagulant long-term use Z79.01 and Mood disorder F39 [facility] [address] [place] [id number] [place] [address] Dec, [facility] [address] [place] [id number] [place] [address] Nov, [facility] [address] [place] [id number] [place] [address] Nov, Anticoagulant long-term use Z79.01 [facility] [address] [place] [id number] [place] [address] Nov, Anticoagulant long-term use Z79.01 [facility] [address] [place] [id number] [place] [address] September, Anticoagulant long-term use Z79.01 [facility] [address] [place] [id number] [place] [address] Jul, Anticoagulant long-term use Z79.01 [facility] [address] [place] [id number] [place] [address] May, Anticoagulant long-term use Z79.01 [facility] [address] [place] [id number] [place] [address] May, Anticoagulant long-term use Z79.01 [place] [address] [place] [id number] [place] [address] May, Anticoagulant long-term use Z79.01 [place] [address] [place] [id number] [place] [address] May, Anticoagulant long-term use Z79.01 [place] [address] [place] [id number] [place] [address] May, [place] [address] [address] May, Congestive heart failure, unspecified congestive heart failure chronicity, unspecified congestive heart failure type I50.9 and Pulmonary congestion R09.89 [place] [address] [address] Apr, Cough R05 ; Congestive heart failure, unspecified congestive heart failure chronicity, unspecified congestive heart failure type I50.9 and Pulmonary congestion R09.89 [place] [address] [address] Mar, Hematuria R31.9 [place] [address] [place] [id number] [place] [address] Mar, [place] [address] [place] [id number] [place] [address] Mar, Anticoagulant long-term use Z79.01 [place] [address] [place] [id number] [place] [address] Mar, [place] [address] [address] Mar, Hematuria R31.9 and Infective urethritis N34.2 [place] [address] [address] Mar, Anticoagulant long-term use Z79.01 [facility] [address] [place] [id number] [address] Mar, Anticoagulant long-term use Z79.01 [facility] [address] [place] [id number] [address] Mar, [facility] [address] [place] [id number] [address] Mar, Anticoagulant long-term use Z79.01 [facility] [address] [facility] [id number] [address] Feb, Peristomal skin breakdown L98.499 [facility] [address] [place] [address] Feb, [facility] [id number] [place] [address] Feb, UTI (urinary tract infection) N39.0 [facility] [address] [address] Jan, [facility] [id number] [place] [address] Dec, High risk medication use V58.69 [facility] [address] [place] [id number] [address] Nov, High risk medication use V58.69 [facility] [address] [address] Nov, [facility] [address] [place] [id number] [address] Nov, UTI (lower urinary tract infection) 599.0 ; URI, acute 465.9 ; Insomnia 780.52 ; Anxiety 300.00 and Lower limb amputation, unspecified level V49.70 [facility] [address] [place] [id number] [address] Oct, UTI (lower urinary tract infection) 599.0 ; URI, acute 465.9 ; Insomnia 780.52 ; Anxiety 300.00 and Lower limb amputation, unspecified level V49.70 [facility] [address] [id number] [address] 14 Aug, 2014 [facility] [id number] [address] Aug, [facility] [address] [place] [id number] [place] [address] Jul, [facility] [address] [id number] [place] [address] Jul, [facility] [address] [id number] [place] [address] Jun, [facility] [address] [place] [id number] [place] [address] Jun, [facility] [address] [place] [id number] [place] [address] Mar, [facility] [address] [address] Mar, [facility] [address] [place] [id number] [place] [address] Mar, [facility] [address] [address] Mar, [facility] [address] [address] Mar, [facility] [address] [address] Feb, [facility] [id number] [address] Feb, [facility] [address] [address] Feb, [facility] [address] [address] Feb, [facility] [place] [facility] [address] [id number] [place] [address] Feb, [facility] [place] [facility] [address] [id number] [place] [address] Feb, [facility] [place] [facility] [address] [id number] [place] [address] Feb, [facility] [place] [facility] [address] [id number] [place] [address] Feb, [facility] [place] [facility] [address] [id number] [place] [address] Feb, [facility] [place] [facility] [address] [id number] [place] [address] Feb, [facility] [place] [facility] [address] [id number] [place] [address] Feb, [facility] [place] [facility] [address] [id number] [address] Feb, [facility] [place] [facility] [address] [id number] [place] [address] Feb, [facility] [place] [facility] [address] [id number] [place] [address] Feb, [facility] [place] [facility] [address] [id number] [place] [address] Feb, [facility] [place] [facility] [address] [id number] [address] Feb, [facility] [place] [facility] [address] [id number] [place] [address] Jan, [facility] [place] [facility] [address] [id number] [place] [address] Jan, [facility] [place] [facility] [address] [id number] [address] Jan, [facility] [place] [facility] [address] [id number] [place] [address] Jan, [facility] [place] [facility] [address] [id number] [place] [address] Jan, [facility] [place] [facility] [address] [id number] [place] [address] Nov, [facility] [place] [facility] [address] [id number] [place] [address] Nov, [facility] [place] [facility] [address] [id number] [place] [address] Nov, [facility] [place] [facility] [address] [id number] [place] [address] Nov, [facility] [place] [facility] [address] [id number] [place] [address] Nov, [facility] [place] [facility] [address] [id number] [place] [address] Nov, [facility] [place] [facility] [address] [id number] [place] [address] Oct, [facility] [place] [facility] [address] [id number] [place] [address] Oct, [facility] [place] [facility] [address] [id number] [place] [address] Oct, [facility] [place] [facility] [address] [id number] [place] [address] Oct, [facility] [place] [facility] [address] [id number] [place] [address] Oct, [facility] [place] [facility] [address] [id number] [place] [address] Oct, [facility] [place] [facility] [address] [id number] [place] [address] Oct, [facility] [place] [facility] [address] [id number] [place] [address] September, [facility] [place] [facility] [address] [id number] [place] [address] September, [facility] [place] [facility] [address] [id number] [place] [address] September, [facility] [place] [facility] [address] [id number] [place] [address] September, [facility] [place] [facility] [address] [id number] [place] [address] September, [facility] [place] [facility] [address] [id number] [place] [address] September, [facility] [place] [facility] [address] [id number] [place] [address] September, [facility] [address] [id number] [place] [address] September, [facility] [address] [id number] [place] [address] Aug, [facility] [place] [facility] [address] [id number] [place] [address] Aug, [facility] [place] [facility] [address] [id number] [place] [address] Aug, [facility] [place] [facility] [address] [id number] [place] [address] Aug, [facility] [place] [facility] [address] [id number] [place] [address] Jul, [facility] [place] [facility] [address] [id number] [place] [address] Jul, [facility] [place] [facility] [address] [id number] [place] [address] Jun, [facility] [place] [facility] [address] [id number] [place] [address] Jun, [facility] [place] [facility] [address] [id number] [place] [address] Jun, [facility] [place] [facility] [address] [id number] [place] [address] Jun, [facility] [place] [facility] [address] [id number] [place] [address] Jun, [facility] [place] [facility] [address] [id number] [place] [address] Jun, [facility] [place] [facility] [address] [id number] [place] [address] May, [facility] [place] [facility] [address] [id number] [place] [address] May, [facility] [place] [facility] [address] [id number] [place] [address] May, [facility] [place] [facility] [address] [id number] [place] [address] May, [facility] [place] [facility] [address] [id number] [place] [address] May, [facility] [place] [facility] [address] [id number] [place] [address] May, [facility] [place] [facility] [address] [id number] [place] [address] Feb, [facility] [place] [facility] [address] [id number] [place] [address] Feb, [facility] [place] [facility] [address] [id number] [address] Feb, [facility] [place] [facility] [address] [id number] [place] [address] Feb, [facility] [place] [facility] [address] [id number] [place] [address] Jan, [facility] [place] [facility] [address] [id number] [address] Jan, [facility] [place] [facility] [address] [id number] [place] [address] Jan, [facility] [address] [id number] [place] [address] Dec, [facility] [place] [facility] [address] [id number] [place] [address] Nov, [facility] [place] [facility] [address] [id number] [place] [address] Nov, [facility] [address] [id number] [place] [address] Nov, [facility] [place] [facility] [address] [id number] [place] [address] Nov, [facility] [address] [id number] [place] [address] Nov, [facility] [facility] [address] [id number] [place] [address] Oct, [facility] [address] [id number] [place] [address] September, [facility] [address] [id number] [place] [address] September, [facility] [address] [id number] [place] [address] Aug, [facility] [place] [facility] [address] [id number] [place] [address] Aug, [facility] [place] [facility] [address] [id number] [place] [address] 29 Jul, 2012 [facility] [place] [facility] [address] [id number] [place] [address] Jul, [facility] [place] [facility] [address] [id number] [place] [address] 08 Jul, 2012 [facility] [place] [facility] [address] [id number] [address] Jul, [facility] [address] [id number] [place] [address] Jun, [facility] [address] [id number] [place] [address] Jun, [facility] [address] [id number] [place] [address] Jun, [facility] [address] [id number] [place] [address] May, [facility] [address] [id number] [place] [address] May, [facility] [address] [id number] [place] [address] May, [facility] [address] [id number] [place] [address] May, [facility] [address] [id number] [place] [address] Apr, [facility] [address] [id number] [place] [address] Apr, [facility] [address] [facility] [id number] [place] [address] Apr, [facility] [address] [id number] [address] Apr, [facility] [address] [id number] [place] [address] Apr, [facility] [address] [id number] [place] [address] Apr, [facility] [place] [facility] [address] [id number] [place] [address] Mar, [facility] [address] [id number] [place] [address] Mar, [facility] [place] [facility] [address] [id number] [place] [address] Mar, [facility] [place] [facility] [address] [id number] [place] [address] Mar, [facility] [place] [facility] [address] [id number] [place] [address] Mar, [facility] [place] [facility] [address] [id number] [place] [address] Mar, [facility] [place] [facility] [address] [id number] [place] [address] Feb, [facility] [place] [facility] [address] [id number] [place] [address] Feb, [facility] [place] [facility] [address] [id number] [place] [address] Feb, [facility] [place] [facility] [address] [id number] [place] [address] Feb, [facility] [place] [facility] [address] [id number] [place] [address] Jan, [facility] [place] [facility] [address] [id number] [place] [address] Jan, [facility] [place] [facility] [address] [id number] [place] [address] 24 Jan, 2012 [facility] [place] [facility] [address] [id number] [place] [address] 10 Jan, 2012 [facility] [place] [facility] [address] [id number] [place] [address] Dec, [facility] [place] [facility] [address] [id number] [place] [address] Dec, [facility] [place] [facility] [address] [id number] [place] [address] Nov, [facility] [place] [facility] [address] [id number] [place] [address] Oct, [facility] [place] [facility] [address] [id number] [place] [address] Oct, [facility] [place] [facility] [address] [id number] [place] [address] Oct, [facility] [place] [facility] [address] [id number] [place] [address] September, [facility] [place] [facility] [address] [id number] [place] [address] September, [facility] [place] [facility] [address] [id number] [place] [address] September, [facility] [place] [facility] [address] [id number] [place] [address] September, [facility] [place] [facility] [address] [id number] [place] [address] September, [facility] [place] [facility] [address] [id number] [place] [address] September, [facility] [place] [facility] [address] [id number] [place] [address] September, [facility] [place] [facility] [address] [id number] [place] [address] Jul, [facility] [place] [facility] [address] [id number] [place] [address] Jul, [facility] [place] [facility] [address] [id number] [place] [address] Jun, [facility] [place] [facility] [address] [id number] [place] [address] Jun, [facility] [place] [facility] [address] [id number] [place] [address] Jun, [facility] [place] [facility] [address] [id number] [place] [address] May, [facility] [place] [facility] [address] [address] Mar, [facility] [address] [address] Mar, [facility] [address] [address] Mar, [facility] [address] [address] Feb, [facility] [address] [address] Feb, [facility] [id number] [place] [address] Dec, [facility] [id number] [place] [address] May, [facility] [id number] [place] [address] Apr, [facility] [address] [address] Apr, [facility] [id number] [place] [address] Apr, [facility] [address] [address] Apr, [facility] [address] [address] Feb, [facility] [id number] [address] Oct, IMMUNIZATIONS No Known Immunizations SOCIAL HISTORY Never Assessed REASON FOR VISIT Lab (walk-in) PLAN OF CARE VITAL SIGNS MEDICATIONS Unknown Medications RESULTS Name Result Date Reference Range INR (IN HOUSE) 2017-03-14 INR 1.5 1.10 - 3.30 PREVIOUS INR 2.0 CURRENT COUMADIN DOSE same NEW COUMADIN DOSE Lot # [id number] Exp date 09/2017 UA LONG DIP (IN HOUSE) 2017-03-14 Lot # [id number] Exp date 03/2018 Clarity Clear Color Light Yellow Odor None GLU Negative SCOTT Negative KET Negative SG 1.010 BLO 2+ pH 6.0 Protein Negative URO 0.2 NIT Negativw TOBIN 1+ Lot # [id number] Exp date 08/2017 PROCEDURES Procedure Date Ordered Result Body Site PROTHROMBIN TIME Mar 14, 2017 URINALYSIS, AUTO, W/O SCOPE Mar 14, 2017 INSTRUCTIONS MEDICATIONS ADMINISTERED No Known [...]
--- OUTSIDE RECORDS SUMMARY | 2018-12-05 12:18 | XMS REPORT ---
Author Author ERIK SAMAYOA Organization [facility] Address [address] [place] [address] Care Team Providers Care Motor Racer Name Role Phone ERIK SAMAYOA Unavailable PROBLEMS Type Condition ICD9-CM Code QKQ76-RX Code Onset Dates Condition Status SNOMED Code Problem Acute cystitis with hematuria N30.01 Active 19461549 Problem Major depressive disorder, single episode, unspecified F32.9 Active 53205570 Problem Congestive heart failure, unspecified congestive heart failure chronicity, unspecified congestive heart failure type I50.9 Active 85657373 Problem Chronic fatigue, unspecified R53.82 Active 903102662 Problem Mood disorder F39 Active 30114961 Problem Anticoagulant long-term use Z79.01 Active 122362274 Problem PVD (peripheral vascular disease) I73.9 Active 107369274 Problem Amput leg, unil NOS-comp S88.919A Active 81999177 ALLERGIES No Information ENCOUNTERS Encounter Location Date Diagnosis [facility] [address] [address] Aug, Chronic fatigue, unspecified R53.82 [facility] [address] [address] Aug, Anticoagulant long-term use Z79.01 [facility] [address] [address] Aug, Nausea R11.0 and Weakness R53.1 [facility] [address] [address] Aug, [facility] [address] [address] Aug, Hematuria R31.9 and Acute cystitis with hematuria N30.01 [facility] [address] [place] [address] Aug, [place] [id number] [place] [address] Jul, Vitamin B 12 deficiency E53.8 [place] [id number] [place] [address] Jul, Anticoagulant long-term use Z79.01 [place] [address] [address] Jun, Chronic fatigue, unspecified R53.82 [place] [id number] [place] [address] Jun, Anticoagulant long-term use Z79.01 [place] [id number] [place] [address] May, Flu-like symptoms R68.89 and Influenza A J10.1 [place] [id number] [place] [address] May, [place] [id number] [place] [address] May, Chronic fatigue, unspecified R53.82 [place] [id number] [place] [address] May, Anticoagulant long-term use Z79.01 [place] [id number] [place] [address] Apr, Medicare welcome exam Z00.00 ; Anticoagulant long-term use Z79.01 ; Medicare annual wellness visit, initial Z00.00 ; Medicare annual wellness visit, subsequent Z00.00 and Chronic fatigue, unspecified R53.82 [place] [id number] [place] [address] Mar, Chronic fatigue, unspecified R53.82 [place] [id number] [place] [address] Mar, Anticoagulant long-term use Z79.01 [facility] [address] [place] [address] Mar, Anticoagulant long-term use Z79.01 and Hematuria R31.9 [facility] [id number] [place] [address] Mar, Hematuria R31.9 [facility] [id number] [place] [address] Feb, Anticoagulant long-term use Z79.01 [place] [id number] [place] [address] Feb, Anticoagulant long-term use Z79.01 [place] [id number] [place] [address] Feb, Anticoagulant long-term use Z79.01 [place] [id number] [place] [address] Feb, Chronic fatigue, unspecified R53.82 [place] [id number] [place] [address] Feb, Anticoagulant long-term use Z79.01 [place] [address] [place] [address] Feb, Congestive heart failure, unspecified congestive heart failure chronicity, unspecified congestive heart failure type I50.9 [place] [address], [place] [address] Feb, Congestive heart failure, unspecified congestive heart failure chronicity, unspecified congestive heart failure type I50.9 [place] [address] [place] [address] Feb, [place] [id number] [place] [address] Jan, Anticoagulant long-term use Z79.01 [place] [address] [place] [address] Jan, [place] [address] [place] [address] Jan, Anticoagulant long-term use Z79.01 and Hematuria R31.9 [place] [id number] [place] [address] Jan, Anticoagulant long-term use Z79.01 [place] [id number] [place] [address] Jan, Chronic fatigue, unspecified R53.82 [place] [id number] [place] [address] Jan, Anticoagulant long-term use Z79.01 [place] [id number] [place] [address] Dec, Chronic fatigue, unspecified R53.82 [place] [id number] [place] [address] Dec, [place] [id number] [place] [address] Dec, Chronic fatigue, unspecified R53.82 and Encounter for therapeutic drug level monitoring Z51.81 [place] [id number] [place] [address] Nov, Encounter for therapeutic drug level monitoring Z51.81 [place] [id number] [place] [address] Nov, Hematuria R31.9 [place] [id number] [place] [address] Nov, Hematuria R31.9 ; Anticoagulant long-term use Z79.01 and PVD (peripheral vascular disease) I73.9 [place] [address] [place] [address] Nov, Anticoagulant long-term use Z79.01 [place] [id number] [place] [address] Nov, Anticoagulant long-term use Z79.01 [place] [id number] [place] [address] Nov, [place] [id number] [place] [address] Nov, Hematuria R31.9 and Acute cystitis with hematuria N30.01 [facility] [address] [id number] Oct, [place] [id number] [place] [address] Oct, [place] [address] [address] Oct, Hematuria R31.9 [place] [id number] [place] [address] Oct, Hematuria R31.9 [place] [id number] [place] [address] Oct, Anticoagulant long-term use Z79.01 [place] [address] [address] Oct, Anticoagulant long-term use Z79.01 [place] [id number] [place] [address] Oct, [place] [address] [address] September, PVD (peripheral vascular disease) I73.9 ; Amput leg, unil NOS-comp S88.919A ; Acute cystitis without hematuria N30.00 ; Anticoagulant long-term use Z79.01 and Hypokalemia E87.6 [place] [id number] [place] [address] Aug, Anticoagulant long-term use Z79.01 and Bronchitis J40 [place] [address] [place] [address] Jul, [facility] [id number] [place] [address] Jul, Anticoagulant long-term use Z79.01 and Mood disorder F39 [facility] [id number] [place] [address] Jul, [facility] [address] [address] May, [facility] [address] [address] May, Hypokalemia E87.6 [facility] [address] [address] May, Mood disorder F39 [facility] [address] [address] May, Anticoagulant long-term use Z79.01 [facility] [address] [address] Apr, Anticoagulant long-term use Z79.01 [facility] [address] [address] Apr, Anticoagulant long-term use Z79.01 [facility] [id number] [place] [address] Apr, [facility] [address] [address] Apr, Anticoagulant long-term use Z79.01 [facility] [address] [address] Apr, Anticoagulant long-term use Z79.01 [facility] [id number] [place] [address] Apr, Anticoagulant long-term use Z79.01 [facility] [address] [address] Mar, [facility] [id number] [place] [address] Mar, [facility] [id number] [place] [address] Mar, Anticoagulant long-term use Z79.01 [facility] [id number] [place] [address] Feb, [facility] [id number] [place] [address] Feb, [facility] [address] [address] Feb, Anticoagulant long-term use Z79.01 [facility] [id number] [place] [address] Feb, Anticoagulant long-term use Z79.01 [facility] [id number] [place] [address] Jan, [facility] [id number] [place] [address] Jan, Anticoagulant long-term use Z79.01 [facility] [id number] [place] [address] Jan, Anticoagulant long-term use Z79.01 [facility] [id number] [place] [address] Dec, Anticoagulant long-term use Z79.01 [facility] [id number] [place] [address] Dec, Anticoagulant long-term use Z79.01 [facility] [id number] [place] [address] Dec, Anticoagulant long-term use Z79.01 and Mood disorder F39 [facility] [id number] [place] [address] Dec, [facility] [address], [place] [address] Nov, [facility] [id number] [place] [address] Nov, Anticoagulant long-term use Z79.01 [facility] [id number] [place] [address] Nov, Anticoagulant long-term use Z79.01 [facility] [id number] [place] [address] September, Anticoagulant long-term use Z79.01 [place] [id number] [place] [address] Jul, Anticoagulant long-term use Z79.01 [place] [id number] [place] [address] May, Anticoagulant long-term use Z79.01 [place] [id number] [place] [address] May, Anticoagulant long-term use Z79.01 [place] [id number] [place] [address] May, Anticoagulant long-term use Z79.01 [facility] [address] [place] [address] May, Anticoagulant long-term use Z79.01 [facility] [id number] [place] [address] May, [facility] [id number] [place] [address] May, Congestive heart failure, unspecified congestive heart failure chronicity, unspecified congestive heart failure type I50.9 and Pulmonary congestion R09.89 [facility] [id number] [address] Apr, Cough R05 ; Congestive heart failure, unspecified congestive heart failure chronicity, unspecified congestive heart failure type I50.9 and Pulmonary congestion R09.89 [facility] [id number] [place] [address] Mar, Hematuria R31.9 [facility] [id number] [place] [address] Mar, [facility] [address] [address] Mar, Anticoagulant long-term use Z79.01 [place] [id number] [place] [address] Mar, [place] [address] [address] Mar, Hematuria R31.9 and Infective urethritis N34.2 [place] [address] [address] Mar, Anticoagulant long-term use Z79.01 [place] [address] [address] Mar, Anticoagulant long-term use Z79.01 [place] [id number] [place] [address] Mar, [place] [id number] [place] [address] Mar, Anticoagulant long-term use Z79.01 [place] [id number] [place] [address] Feb, Peristomal skin breakdown L98.499 [place] [address] [address] Feb, [place] [id number] [place] [address] Feb, UTI (urinary tract infection) N39.0 [place] [address] [address] Jan, [facility] [id number], [place] [address] Dec, High risk medication use V58.69 [facility] [address], [place] [address] Nov, High risk medication use V58.69 [facility] [address] [place] [address] Nov, [facility] [address], [place] [address] Nov, UTI (lower urinary tract infection) 599.0 ; URI, acute 465.9 ; Insomnia 780.52 ; Anxiety 300.00 and Lower limb amputation, unspecified level V49.70 [facility] [address], [place] [address] Oct, UTI (lower urinary tract infection) 599.0 ; URI, acute 465.9 ; Insomnia 780.52 ; Anxiety 300.00 and Lower limb amputation, unspecified level V49.70 [facility] [address], [place] [address] Aug, [facility] [address], [place] [address] Aug, [facility] [address], [place] [address] Jul, [facility] [id number], [place] [address] Jul, [facility] [address], [place] [address] Jun, [facility] [address], [place] [address] Jun, [facility] [id number], [place] [address] Mar, [facility] [place] [facility] [address] [id number] [place] [address] Mar, [facility] [place] [facility] [address] [id number] [place] [address] Mar, [facility] [place] [facility] [address] [id number] [place] [address] Mar, [facility] [place] [facility] [address] [id number] [place] [address] Mar, [facility] [place] [facility] [address] [id number] [place] [address] Feb, [facility] [place] [facility] [address] [id number] [place] [address] Feb, [facility] [place] [facility] [address] [id number] [place] [address] Feb, [facility] [place] [facility] [address] [id number] [place] [address] Feb, [facility] [place] [facility] [address] [id number] [place] [address] Feb, [facility] [place] [facility] [address] [id number] [place] [address] Feb, [facility] [place] [facility] [address] [id number] [place] [address] Feb, [facility] [place] [facility] [address] [id number] [place] [address] Feb, [facility] [place] [facility] [address] [id number] [place] [address] Feb, [facility] [place] [facility] [address] [id number] [place] [address] Feb, [facility] [place] [facility] [address] [id number] [place] [address] Feb, [facility] [place] [facility] [address] [id number] [place] [address] Feb, [facility] [place] [facility] [address] [id number] [place] [address] Feb, [facility] [place] [facility] [address] [id number] [place] [address] Feb, [facility] [place] [facility] [address] [id number] [place] [address] Feb, [facility] [place] [facility] [address] [id number] [place] [address] Feb, [facility] [place] [facility] [address] [id number] [place] [address] Jan, [facility] [place] [facility] [address] [id number] [place] [address] Jan, [facility] [place] [facility] [address] [id number] [place] [address] Jan, [facility] [place] [facility] [address] [id number] [place] [address] Jan, [facility] [place] [facility] [address] [id number] [place] [address] Jan, [facility] [place] [facility] [address] [id number] [place] [address] Nov, [facility] [place] [facility] [address] [id number] [place] [address] Nov, [facility] [place] [facility] [address] [id number] [address] Nov, [facility] [place] [facility] [address] [id number] [place] [address] Nov, [facility] [place] [facility] [address] [id number] [place] [address] Nov, [facility] [place] [facility] [address] [id number] [place] [address] Nov, [facility] [place] [facility] [address] [id number] [place] [address] Oct, [facility] [place] [facility] [address] [id number] [place] [address] Oct, [facility] [place] [facility] [address] [id number] [place] [address] Oct, [facility] [place] [facility] [address] [id number] [place] [address] Oct, [facility] [place] [facility] [address] [id number] [place] [address] Oct, [facility] [place] [facility] [address] [id number] [place] [address] Oct, [facility] [place] [facility] [address] [id number] [place] [address] Oct, [facility] [place] [facility] [address] [id number] [place] [address] September, [facility] [place] [facility] [address] [id number] [place] [address] September, [facility] [place] [facility] [address] [id number] [place] [address] September, [facility] [place] [facility] [address] [id number] [place] [address] September, [facility] [place] [facility] [address] [id number] [place] [address] September, [facility] [place] [facility] [address] [id number] [place] [address] September, [facility] [place] [facility] [address] [id number] [place] [address] September, [facility] [place] [facility] [address] [id number] [place] [address] September, [facility] [place] [facility] [address] [id number] [place] [address] Aug, [facility] [place] [facility] [address] [id number] [place] [address] Aug, [facility] [place] [facility] [address] [id number] [place] [address] Aug, [facility] [place] [facility] [address] [id number] [place] [address] Aug, [facility] [place] [facility] [address] [id number] [place] [address] Jul, [facility] [place] [facility] [address] [id number] [place] [address] Jul, [facility] [place] [facility] [address] [id number] [place] [address] Jun, [facility] [place] [facility] [address] [id number] [place] [address] Jun, [facility] [place] [facility] [address] [id number] [place] [address] Jun, [facility] [place] [facility] [address] [id number] [place] [address] Jun, [facility] [place] [facility] [address] [id number] [place] [address] Jun, [facility] [place] [facility] [address] [id number] [place] [address] Jun, [facility] [place] [facility] [address] [id number] [place] [address] May, [facility] [place] [facility] [address] [id number] [place] [address] May, [facility] [place] [facility] [address] [id number] [place] [address] May, [facility] [place] [facility] [address] [id number] [place] [address] May, [facility] [place] [facility] [address] [id number] [place] [address] May, [facility] [address] [id number] [place] [address] May, [facility] [place] [facility] [address] [id number] [place] [address] Feb, [facility] [place] [facility] [address] [id number] [place] [address] Feb, [facility] [place] [facility] [address] [id number] [place] [address] Feb, [facility] [place] [facility] [address] [id number] [place] [address] Feb, [facility] [place] [facility] [address] [id number] [place] [address] Jan, [facility] [place] [facility] [address] [id number] [place] [address] Jan, [facility] [place] [facility] [address] [id number] [place] [address] Jan, [facility] [place] [facility] [address] [id number] [place] [address] Dec, [facility] [place] [facility] [address] [id number] [place] [address] Nov, [facility] [place] [facility] [address] [id number] [place] [address] Nov, [facility] [place] [facility] [address] [id number] [place] [address] Nov, [facility] [place] [facility] [address] [id number] [place] [address] Nov, [facility] [place] [facility] [address] [id number] [place] [address] Nov, [facility] [place] [facility] [address] [id number] [place] [address] Oct, [facility] [place] [facility] [address] [id number] [place] [address] September, [facility] [address] [id number] [place] [address] September, [facility] [address] [id number] [place] [address] Aug, [facility] [address] [id number] [place] [address] Aug, [facility] [address] [id number] [place] [address] Jul, [facility] [address] [id number] [place] [address] Jul, [facility] [address] [id number] [place] [address] Jul, [facility] [address] [id number] [place] [address] Jul, [facility] [address] [id number] [place] [address] Jun, [facility] [address] [id number] [place] [address] Jun, [facility] [address] [id number] [place] [address] Jun, [facility] [address] [id number] [place] [address] May, [facility] [place] [facility] [address] [id number] [place] [address] May, [facility] [place] [facility] [address] [id number] [place] [address] May, [facility] [place] [facility] [address] [id number] [place] [address] May, [facility] [place] [facility] [address] [id number], [place] [address] Apr, [facility] [place] [facility] [address] [id number] [place] [address] Apr, [facility] [place] [facility] [address] [id number] [place] [address] Apr, [facility] [place] [facility] [address] [id number] [place] [address] Apr, [facility] [place] [facility] [address] [id number] [place] [address] Apr, [facility] [place] [facility] [address] [id number] [place] [address] Apr, [facility] [place] [facility] [address] [id number] [place] [address] Mar, [facility] [place] [facility] [address] [id number] [place] [address] Mar, [facility] [place] [facility] [address] [id number] [place] [address] Mar, [facility] [place] [facility] [address] [id number], [place] [address] Mar, [facility] [place] [facility] [address] [id number] [place] [address] Mar, [facility] [place] [facility] [address] [id number], [place] [address] Mar, [facility] [place] [facility] [address] [id number], [place] [address] Feb, [facility] [place] [facility] [address] [id number], [place] [address] Feb, [facility] [place] [facility] [address] [id number], [place] [address] Feb, [facility] [place] [facility] [address] [id number] [place] [address] Feb, [facility] [place] [facility] [address] [id number] [place] [address] 25 Jan, 2012 [facility] [address] [id number] [place] [address] 25 Jan, 2012 [facility] [place] [facility] [address] [id number] [place] [address] 24 Jan, 2012 [facility] [address] [id number] [place] [address] Jan, [facility] [address] [id number] [place] [address] Dec, [facility] [address] [id number] [place] [address] Dec, [facility] [address] [id number] [place] [address] Nov, [facility] [address] [id number] [place] [address] Oct, [facility] [address] [id number] [place] [address] Oct, [facility] [address] [id number] [place] [address] Oct, [facility] [address] [id number] [place] [address] September, [facility] [address] [id number] [place] [address] September, [facility] [address] [id number] [place] [address] September, [facility] [place] [facility] [address] [id number] [place] [address] September, [facility] [address] [id number] [place] [address] September, [facility] [address] [id number] [place] [address] September, [facility] [place] [facility] [address] [id number] [place] [address] September, [facility] [place] [facility] [address] [id number] [place] [address] Jul, [facility] [place] [facility] [address] [id number] [place] [address] Jul, [facility] [place] [facility] [address] [id number] [place] [address] Jun, [facility] [place] [facility] [address] [id number] [place] [address] Jun, [facility] [place] [facility] [address] [id number] [place] [address] Jun, [facility] [place] [facility] [address] [id number] [place] [address] May, [facility] [place] [facility] [address] [id number] [place] [address] Mar, [facility] [place] [facility] [address] [id number] [place] [address] Mar, [facility] [place] [facility] [address] [id number] [place] [address] Mar, [facility] [place] [facility] [address] [id number] [place] [address] Feb, [facility] [place] [facility] [address] [id number], [place] [address] Feb, [facility] [place] [facility] [address] [id number] [place] [address] Dec, [facility] [place] [facility] [address] [id number] [place] [address] 15 May, 2009 [facility] [place] [facility] [address] [id number] [place] [address] Apr, [facility] [place] [facility] [address] [facility] [id number] [place] [address] Apr, [facility] [address] [facility] [id number], [place] [address] Apr, [facility] [address] [facility] [id number], [place] [address] Apr, [facility] [address] [facility] [id number], [place] [address] Feb, [facility] [address] [facility] [id number], [place] [address] Oct, IMMUNIZATIONS No Known Immunizations SOCIAL HISTORY Never Assessed REASON FOR VISIT Lab results PLAN OF CARE VITAL SIGNS MEDICATIONS Medication Instructions Dosage Frequency Start Date End Date Duration Status Macrobid 100 mg Orally every 12 hrs 1 capsule with food 12h Feb, Feb, 10 days Active RESULTS No Results PROCEDURES No [...]
--- OUTSIDE RECORDS SUMMARY | 2018-12-05 12:18 | XMS REPORT ---
Author Author ERIK SAMAYOA [facility] Address [address] [place] [address] Care Team Providers Care Spice Blender Name Role Phone DANITA ERIK Unavailable PROBLEMS Type Condition ICD9-CM Code [id number] Code Onset Dates Condition Status SNOMED Code Problem Chronic fatigue, unspecified R53.82 Active 719237549 Problem PVD (peripheral vascular disease) I73.9 Active 647948505 Problem Anticoagulant long-term use Z79.01 Active 493445923 Problem Major depressive disorder, single episode, unspecified F32.9 Active 84475643 Problem Amput leg, unil NOS-comp S88.919A Active 76351100 Problem Mood disorder F39 Active 49299388 ALLERGIES Substance Reaction Event Type Date Status Penicillin V Potassium Unknown Drug Allergy Jul, Active Morphine Sulfate Unknown Drug Allergy Jul, Active Codeine Sulfate Unknown Drug Allergy Jul, Active Aspir-81 Unknown Drug Allergy Jul, Active SOCIAL HISTORY Never Assessed PLAN OF CARE VITAL SIGNS Height 62 in 2016-07-08 Temperature 98.3 degrees Fahrenheit 2016-07-08 Heart Rate 64 bpm 2016-07-08 Respiratory Rate 18 2016-07-08 Blood pressure systolic 108 mmHg 2016-07-08 Blood pressure diastolic 64 mmHg 2016-07-08 MEDICATIONS Medication Instructions Dosage Frequency Start Date End Date Duration Status Metoprolol Succinate ER 50MG TAKE 1 TABLET DAILY Active Clopidogrel Bisulfate 75 MG Orally Once a day 1 tablet 24h Active Amlodipine Besylate 10MG TAKE 1 TABLET ONCE DAILY Active Docusate Sodium 100 MG Orally Once a day 1 capsule as needed 24h Active Valium 2 MG Orally Once a day 1 tablet as needed 24h Oct, Active Vitamin D3 1,000 unit 2 capsule by Oral route 1 time per day Feb, Active Klor-Con M20 20 MEQ Orally Once a day 1 tablet with food 24h May, Aug, 30 day(s) Active Cetirizine HCl 10 TAKE ONE TABLET BY MOUTH DAILY 30 Active Paroxetine HCl 10 mg Orally Once a day 1 tablet in the morning 24h May, 30 day(s) Active Lisinopril 10MG 1 tablet 24h Active Singulair 10 mg Orally Once a day 1 tablet in the evening 24h Jul, 30 day(s) Active Simvastatin 20 MG 2 TABLET BY ORAL ROUTE 1 TIME PER DAY 180 Active Coumadin 2 mg Orally Once a day 1 tablet 24h Active Folic Acid 1 TAKE ONE TABLET BY MOUTH DAILY 30 Active RESULTS No Results PROCEDURES Procedure Date Ordered Result Body Site [facility] VISIT ESTABLISHED PATIENT July 08, 2016 PROTHROMBIN TIME July 08, 2016 IMMUNIZATIONS No Known Immunizations MEDICAL (GENERAL) [...]
--- OUTSIDE RECORDS SUMMARY | 2018-12-05 12:19 | XMS REPORT ---
Author Author ERIK SAMAYOA Organization [facility] Address [address] [place] [address] Care Team Providers Care It Service Technician Name Role Phone ERIK SAMAYOA Unavailable PROBLEMS Type Condition ICD9-CM Code [id number] Code Onset Dates Condition Status SNOMED Code Problem Chronic fatigue, unspecified R53.82 Active 306205451 Problem PVD (peripheral vascular disease) I73.9 Active 399052033 Problem Anticoagulant long-term use Z79.01 Active 237546778 Problem Major depressive disorder, single episode, unspecified F32.9 Active 99812086 Problem Amput leg, unil NOS-comp S88.919A Active 63697025 Problem Mood disorder F39 Active 85920814 ALLERGIES No Information SOCIAL HISTORY Never Assessed PLAN OF CARE VITAL SIGNS MEDICATIONS Medication Instructions Dosage Frequency Start Date End Date Duration Status Metoprolol Succinate ER 50MG Orally Once a day 1 tablet 24h 90 days Active RESULTS No Results PROCEDURES No Known procedures IMMUNIZATIONS No Known Immunizations MEDICAL (GENERAL) HISTORY [...]
--- OUTSIDE RECORDS SUMMARY | 2018-12-05 12:19 | XMS REPORT ---
Author Author ERIK SAMAYOA Organization [facility] Address [address] [place] [address] Care Team Providers Care Monitoring Analyst Name Role Phone ERIK SAMAYOA Unavailable PROBLEMS Type Condition ICD9-CM Code UIH08-HT Code Onset Dates Condition Status SNOMED Code Problem Major depressive disorder, single episode, unspecified F32.9 Active 81701349 Problem Anticoagulant long-term use Z79.01 Active 317726039 Problem Acute cystitis with hematuria N30.01 Active 67745941 Problem Vitamin B12 deficiency E53.8 Dec, Active 195842934 Problem Congestive heart failure, unspecified congestive heart failure chronicity, unspecified congestive heart failure type I50.9 Active 78067796 Problem Amput leg, unil NOS-comp S88.919A Active 35724803 Problem Mood disorder F39 Active 33500793 Problem Chronic fatigue, unspecified R53.82 Active 716275124 Problem PVD (peripheral vascular disease) I73.9 Active 067010477 ALLERGIES No Information ENCOUNTERS Encounter Location Date Diagnosis [place] [id number] [place] [address] Oct, [facility] [address] [place] [address] September, Anticoagulant long-term use Z79.01 and Congestive heart failure, unspecified congestive heart failure chronicity, unspecified congestive heart failure type I50.9 [facility] [address], [place] [address] September, Vitamin B12 deficiency E53.8 [facility] [address], [place] [address] September, Anticoagulant long-term use Z79.01 [facility] [address] [place] [address] September, Anticoagulant long-term use Z79.01 and Congestive heart failure, unspecified congestive heart failure chronicity, unspecified congestive heart failure type I50.9 [place] [address] [address] Aug, Chronic fatigue, unspecified R53.82 [place] [address] [address] Aug, Anticoagulant long-term use Z79.01 [place] [address] [address] Aug, Nausea R11.0 and Weakness R53.[address] [address] Aug, [facility] [address] [address] Aug, Hematuria R31.9 and Acute cystitis with hematuria N30.01 [place] [address] [address] Aug, [place] [address] [address] Jul, Vitamin B 12 deficiency E53.8 [place] [address] [address] Jul, Anticoagulant long-term use Z79.01 [place] [address] [address] Jun, Chronic fatigue, unspecified R53.82 [place] [address] [address] Jun, Anticoagulant long-term use Z79.01 [place] [address] [address] May, Flu-like symptoms R68.89 and Influenza A J10.1 [place] [address] [place] [address] May, [facility] [address] [place] [id number] [place] [address] May, Chronic fatigue, unspecified R53.82 [facility] [address] [place] [id number] [place] [address] May, Anticoagulant long-term use Z79.01 [place] [address] [place] [id number] [place] [address] Apr, Medicare welcome exam Z00.00 ; Anticoagulant long-term use Z79.01 ; Medicare annual wellness visit, initial Z00.00 ; Medicare annual wellness visit, subsequent Z00.00 and Chronic fatigue, unspecified R53.82 [place] [address] [place] [id number] [place] [address] Mar, Chronic fatigue, unspecified R53.82 [place] [address] [place] [id number] [place] [address] Mar, Anticoagulant long-term use Z79.01 [place] [address] [place] [id number] [place] [address] Mar, Anticoagulant long-term use Z79.01 and Hematuria R31.9 [place] [address] [place] [id number] [place] [address] Mar, Hematuria R31.9 [place] [address] [place] [id number] [place] [address] Feb, Anticoagulant long-term use Z79.01 [place] [address] [place] [id number] [place] [address] Feb, Anticoagulant long-term use Z79.01 [place] [address] [place] [id number] [place] [address] Feb, Anticoagulant long-term use Z79.01 [place] [address] [place] [id number] [place] [address] Feb, Chronic fatigue, unspecified R53.82 [facility] [address], [place] [address] Feb, Anticoagulant long-term use Z79.01 [facility] [address] [place] [address] Feb, Congestive heart failure, unspecified congestive heart failure chronicity, unspecified congestive heart failure type I50.9 [facility] [address] [place] [id number] [place] [address] Feb, Congestive heart failure, unspecified congestive heart failure chronicity, unspecified congestive heart failure type I50.9 [facility] [address] [place] [id number] [place] [address] Feb, [facility] [address] [place] [id number] [place] [address] Jan, Anticoagulant long-term use Z79.01 [facility] [address] [place] [id number] [place] [address] Jan, [facility] [address] [place] [id number] [place] [address] Jan, Anticoagulant long-term use Z79.[address] [facility] [address] [place] [address] Jan, Anticoagulant long-term use Z79.01 [facility] [address] [place] [address] Jan, Chronic fatigue, unspecified R53.82 [facility] [address] [place] [address] Jan, Anticoagulant long-term use Z79.01 [facility] [address] [place] [address] Dec, Chronic fatigue, unspecified R53.82 [facility] [address] [place] [id number] [place] [address] Dec, [facility] [address] [place] [address] Dec, Chronic fatigue, unspecified R53.82 and Encounter for therapeutic drug level monitoring Z51.81 [facility] [address] [place] [id number] [place] [address] Nov, Encounter for therapeutic drug level monitoring Z51.81 [facility] [address] [place] [id number] [place] [address] Nov, Hematuria R31.9 [facility] [address] [place] [id number] [place] [address] Nov, Hematuria R31.9 ; Anticoagulant long-term use Z79.01 and PVD (peripheral vascular disease) I73.9 [facility] [address] [place] [id number] [place] [address] Nov, Anticoagulant long-term use Z79.01 [facility] [address] [place] [id number] [place] [address] Nov, Anticoagulant long-term use Z79.01 [facility] [address] [place] [id number] [place] [address] Nov, [facility] [address] [place] [id number] [place] [address] Nov, Hematuria R31.9 and Acute cystitis with hematuria N30.01 [facility] [address] [place] [address] [id number] [place] [id number] Oct, [facility] [address] [address] [id number] [place] [address] Oct, [facility] [address] [place] [id number] [place] [address] Oct, Hematuria R31.9 [facility] [address] [place] [address] Oct, Hematuria R31.9 [place] [address] [place] [id number] [place] [address] Oct, Anticoagulant long-term use Z79.01 [place] [address] [address] Oct, Anticoagulant long-term use Z79.01 [place] [address] [place] [id number] [place] [address] Oct, [place] [address] [address] September, PVD (peripheral vascular disease) I73.9 ; Amput leg, unil NOS-comp S88.919A ; Acute cystitis without hematuria N30.00 ; Anticoagulant long-term use Z79.01 and Hypokalemia E87.6 [place] [address] [place] [id number] [place] [address] Aug, Anticoagulant long-term use Z79.01 and Bronchitis J40 [place] [address] [place] [id number] [place] [address] Jul, [place] [address] [address] Jul, Anticoagulant long-term use Z79.01 and Mood disorder F39 [place] [address] [place] [id number] [place] [address] Jul, [place] [address] [place] [id number] [place] [address] May, [place] [address] [place] [id number] [place] [address] May, Hypokalemia E87.6 [place] [address] [address] May, Mood disorder F39 [place] [address] [place] [id number] [place] [address] May, Anticoagulant long-term use Z79.01 [facility] [address] [place] [address] [id number] [place] [address] Apr, Anticoagulant long-term use Z79.01 [facility] [address] [place] [id number] [place] [address] Apr, Anticoagulant long-term use Z79.01 [facility] [address] [place] [id number] [place] [address] Apr, [facility] [address] [place] [id number] [place] [address] Apr, Anticoagulant long-term use Z79.01 [facility] [address] [place] [id number] [place] [address] Apr, Anticoagulant long-term use Z79.01 [facility] [address] [place] [id number] [place] [address] Apr, Anticoagulant long-term use Z79.01 [facility] [address] [place] [address] [id number] [place] [address] Mar, [facility] [address] [id number] [place] [address] Mar, [facility] [address] [place] [id number] [place] [address] Mar, Anticoagulant long-term use Z79.01 [facility] [address] [place] [id number] [place] [address] Feb, [facility] [address] [place] [id number] [place] [address] Feb, [facility] [address] [address] 07 Feb, 2016 Anticoagulant long-term use Z79.01 [facility] [address] [place] [id number] [place] [address] 05 Feb, 2016 Anticoagulant long-term use Z79.01 [facility] [address] [place] [address] [place] [address] Jan, [facility] [address] [place] [address] [id number] [place] [address] Jan, Anticoagulant long-term use Z79.01 [facility] [address] [place] [id number] [place] [address] Jan, Anticoagulant long-term use Z79.01 [facility] [address] [address] Dec, Anticoagulant long-term use Z79.01 [facility] [address] [place] [address] [id number] [place] [address] Dec, Anticoagulant long-term use Z79.01 [facility] [address] [place] [address] [id number] [place] [address] Dec, Anticoagulant long-term use Z79.01 and Mood disorder F39 [facility] [address] [address] [id number] [place] [address] Dec, [facility] [id number] [place] [address] Nov, [facility] [address] [id number] [place] [address] Nov, Anticoagulant long-term use Z79.01 [facility] [id number] [place] [address] Nov, Anticoagulant long-term use Z79.01 [facility] [address] [place] [id number] [place] [address] September, Anticoagulant long-term use Z79.01 [facility] [address] [place] [id number] [place] [address] Jul, Anticoagulant long-term use Z79.01 [facility] [address] [id number] [place] [address] May, Anticoagulant long-term use Z79.01 [facility] [address] [id number] [place] [address] May, Anticoagulant long-term use Z79.01 [place] [address] [place] [id number] [place] [address] May, Anticoagulant long-term use Z79.01 [place] [address] [place] [id number] [place] [address] May, Anticoagulant long-term use Z79.01 [place] [address] [place] [id number] [place] [address] May, [place] [address] [address] May, Congestive heart failure, unspecified congestive heart failure chronicity, unspecified congestive heart failure type I50.9 and Pulmonary congestion R09.89 [place] [address] [address] Apr, Cough R05 ; Congestive heart failure, unspecified congestive heart failure chronicity, unspecified congestive heart failure type I50.9 and Pulmonary congestion R09.89 [place] [address] [address] Mar, Hematuria R31.9 [place] [address] [place] [id number] [place] [address] Mar, [place] [address] [place] [id number] [place] [address] Mar, Anticoagulant long-term use Z79.01 [place] [address] [place] [id number] [place] [address] Mar, [place] [address] [address] Mar, Hematuria R31.9 and Infective urethritis N34.2 [place] [address] [address] Mar, Anticoagulant long-term use Z79.01 [facility] [id number] [address] Mar, Anticoagulant long-term use Z79.01 [facility] [id number] [address] Mar, [facility] [id number] [address] Mar, Anticoagulant long-term use Z79.01 [facility] [address] [facility] [id number] [address] Feb, Peristomal skin breakdown L98.499 [facility] [address] [place] [address] Feb, [facility] [address] [place] [address] Feb, UTI (urinary tract infection) N39.0 [facility] [address], [place] [address] Jan, [facility] [address] [place] [address] Dec, High risk medication use V58.69 [facility] [id number] [address] Nov, High risk medication use V58.69 [facility] [address], [place] [address] Nov, [facility] [id number] [address] Nov, UTI (lower urinary tract infection) 599.0 ; URI, acute 465.9 ; Insomnia 780.52 ; Anxiety 300.00 and Lower limb amputation, unspecified level V49.70 [facility] [id number] [address] Oct, UTI (lower urinary tract infection) 599.0 ; URI, acute 465.9 ; Insomnia 780.52 ; Anxiety 300.00 and Lower limb amputation, unspecified level V49.70 [facility] [id number] [address] 14 Aug, 2014 [facility] [id number] [address] Aug, [facility] [id number] [place] [address] Jul, [facility] [id number] [place] [address] Jul, [facility] [id number] [place] [address] Jun, [facility] [id number] [place] [address] Jun, [facility] [id number] [place] [address] Mar, [facility] [address], [place] [address] Mar, [facility] [id number] [place] [address] Mar, [facility] [address], [place] [address] Mar, [facility] [address], [place] [address] Mar, [facility] [address], [place] [address] Feb, [facility] [id number] [address] Feb, [facility] [address], [place] [address] Feb, [facility] [address], [place] [address] Feb, [facility] [place] [facility] [address] [id number] [place] [address] Feb, [facility] [place] [facility] [address] [id number] [place] [address] Feb, [facility] [place] [facility] [address] [id number] [place] [address] Feb, [facility] [place] [facility] [address] [id number] [place] [address] Feb, [facility] [place] [facility] [address] [id number] [place] [address] Feb, [facility] [place] [facility] [address] [id number] [place] [address] Feb, [facility] [place] [facility] [address] [id number] [place] [address] Feb, [facility] [place] [facility] [address] [id number], [place] [address] Feb, [facility] [place] [facility] [address] [id number], [place] [address] Feb, [facility] [place] [facility] [address] [id number], [place] [address] Feb, [facility] [place] [facility] [address] [id number], [place] [address] Feb, [facility] [place] [facility] [address] [id number], [place] [address] Feb, [facility] [place] [facility] [address] [id number], [place] [address] Jan, [facility] [place] [facility] [address] [id number], [place] [address] Jan, [facility] [place] [facility] [address] [id number], [place] [address] Jan, [facility] [place] [facility] [address] [id number] [place] [address] Jan, [facility] [place] [facility] [address] [id number] [place] [address] Jan, [facility] [place] [facility] [address] [id number] [place] [address] Nov, [facility] [place] [facility] [address] [id number] [place] [address] Nov, [facility] [place] [facility] [address] [id number] [place] [address] Nov, [facility] [place] [facility] [address] [id number] [place] [address] Nov, [facility] [place] [facility] [address] [id number] [place] [address] Nov, [facility] [place] [facility] [address] [id number] [place] [address] Nov, [facility] [place] [facility] [address] [id number] [place] [address] Oct, [facility] [place] [facility] [address] [id number] [place] [address] Oct, [facility] [place] [facility] [address] [id number] [place] [address] Oct, [facility] [place] [facility] [address] [id number] [place] [address] Oct, [facility] [place] [facility] [address] [id number] [place] [address] Oct, [facility] [place] [facility] [address] [id number] [place] [address] Oct, [facility] [place] [facility] [address] [id number] [place] [address] Oct, [facility] [place] [facility] [address] [id number] [place] [address] September, [facility] [place] [facility] [address] [id number] [place] [address] September, [facility] [place] [facility] [address] [id number] [place] [address] September, [facility] [place] [facility] [address] [id number] [place] [address] September, [facility] [place] [facility] [address] [id number] [place] [address] September, [facility] [place] [facility] [address] [id number] [place] [address] September, [facility] [place] [facility] [address] [id number] [place] [address] September, [facility] [address] [id number] [place] [address] September, [facility] [address] [id number] [place] [address] Aug, [facility] [place] [facility] [address] [id number] [place] [address] Aug, [facility] [place] [facility] [address] [id number] [place] [address] Aug, [facility] [place] [facility] [address] [id number] [place] [address] Aug, [facility] [place] [facility] [address] [id number] [place] [address] Jul, [facility] [place] [facility] [address] [id number] [place] [address] Jul, [facility] [place] [facility] [address] [id number] [place] [address] Jun, [facility] [place] [facility] [address] [id number] [place] [address] Jun, [facility] [place] [facility] [address] [id number] [place] [address] Jun, [facility] [place] [facility] [address] [id number] [place] [address] Jun, [facility] [place] [facility] [address] [id number] [place] [address] Jun, [facility] [place] [facility] [address] [id number] [place] [address] Jun, [facility] [place] [facility] [address] [id number] [place] [address] May, [facility] [place] [facility] [address] [id number] [place] [address] May, [facility] [place] [facility] [address] [id number] [place] [address] May, [facility] [place] [facility] [address] [id number] [place] [address] May, [facility] [place] [facility] [address] [id number] [place] [address] May, [facility] [place] [facility] [address] [id number] [place] [address] May, [facility] [place] [facility] [address] [id number] [place] [address] Feb, [facility] [place] [facility] [address] [id number] [place] [address] Feb, [facility] [place] [facility] [address] [id number], [place] [address] Feb, [facility] [place] [facility] [address] [id number] [place] [address] Feb, [facility] [place] [facility] [address] [id number] [place] [address] Jan, [facility] [place] [facility] [address] [id number], [place] [address] Jan, [facility] [place] [facility] [address] [id number] [place] [address] Jan, [facility] [address] [id number] [place] [address] Dec, [facility] [place] [facility] [address] [id number] [place] [address] Nov, [facility] [place] [facility] [address] [id number] [place] [address] Nov, [facility] [address] [id number] [place] [address] Nov, [facility] [place] [facility] [address] [id number] [place] [address] Nov, [facility] [address] [id number] [place] [address] Nov, [facility] [address] [id number] [place] [address] Oct, [facility] [address] [id number] [place] [address] September, [facility] [address] [id number] [place] [address] September, [facility] [address] [id number] [place] [address] Aug, [facility] [place] [facility] [address] [id number] [place] [address] Aug, [facility] [place] [facility] [address] [id number] [place] [address] 29 Jul, 2012 [facility] [place] [facility] [address] [id number] [place] [address] Jul, [facility] [place] [facility] [address] [id number] [place] [address] 08 Jul, 2012 [facility] [place] [facility] [address] [id number], [place] [address] Jul, [facility] [address] [id number] [place] [address] Jun, [facility] [address] [id number] [place] [address] Jun, [facility] [address] [id number] [place] [address] Jun, [facility] [address] [id number] [place] [address] May, [facility] [address] [id number] [place] [address] May, [facility] [address] [id number] [place] [address] May, [facility] [address] [id number] [place] [address] May, [facility] [address] [id number] [place] [address] Apr, [facility] [address] [id number] [place] [address] Apr, [facility] [address] [facility] [id number] [place] [address] Apr, [facility] [address] [id number], [place] [address] Apr, [facility] [address] [id number], [place] [address] Apr, [facility] [address] [id number] [place] [address] Apr, [facility] [place] [facility] [address] [id number] [place] [address] Mar, [facility] [address] [id number] [place] [address] Mar, [facility] [place] [facility] [address] [id number] [place] [address] Mar, [facility] [place] [facility] [address] [id number] [place] [address] Mar, [facility] [place] [facility] [address] [id number] [place] [address] Mar, [facility] [place] [facility] [address] [id number] [place] [address] Mar, [facility] [place] [facility] [address] [id number] [place] [address] Feb, [facility] [place] [facility] [address] [id number] [place] [address] Feb, [facility] [place] [facility] [address] [id number] [place] [address] Feb, [facility] [place] [facility] [address] [id number] [place] [address] Feb, [facility] [place] [facility] [address] [id number] [place] [address] Jan, [facility] [place] [facility] [address] [id number] [place] [address] Jan, [facility] [place] [facility] [address] [id number] [place] [address] 24 Jan, 2012 [facility] [place] [facility] [address] [id number] [place] [address] 10 Jan, 2012 [facility] [place] [facility] [address] [id number] [place] [address] Dec, [facility] [place] [facility] [address] [id number] [place] [address] Dec, [facility] [place] [facility] [address] [id number] [place] [address] Nov, [facility] [place] [facility] [address] [id number] [place] [address] Oct, [facility] [place] [facility] [address] [id number] [place] [address] Oct, [facility] [place] [facility] [address] [id number] [place] [address] Oct, [facility] [place] [facility] [address] [id number] [place] [address] September, [facility] [place] [facility] [address] [id number] [place] [address] September, [facility] [place] [facility] [address] [id number] [place] [address] September, [facility] [place] [facility] [address] [id number] [place] [address] September, [facility] [place] [facility] [address] [id number] [place] [address] September, [facility] [place] [facility] [address] [id number] [place] [address] September, [facility] [place] [facility] [address] [id number] [place] [address] September, [facility] [place] [facility] [address] [id number] [place] [address] Jul, [facility] [place] [facility] [address] [id number] [place] [address] Jul, [facility] [place] [facility] [address] [id number] [place] [address] Jun, [facility] [place] [facility] [address] [id number] [place] [address] Jun, [facility] [place] [facility] [address] [id number] [place] [address] Jun, [facility] [place] [facility] [address] [id number] [place] [address] May, [facility] [place] [facility] [id number], [place] [address] 29 Mar, 2011 [facility] [id number] [address] Mar, [facility] [id number], [place] [address] Mar, [facility] [id number], [place] [address] [address], [address] [facility] [id number], [place] [address] Feb, [facility] [id number] [place] [address] Dec, [facility] [id number] [place] [address] May, [facility] [id number] [place] [address] Apr, [facility] [id number] [address] Apr, [facility] [id number] [address] Apr, [facility] [id number] [address] Apr, [facility] [id number], [place] [address] 30 Feb, 2009 [facility] [id number] [address] Oct, IMMUNIZATIONS No Known Immunizations SOCIAL HISTORY Never Assessed REASON FOR VISIT Returned call PLAN OF CARE VITAL SIGNS MEDICATIONS [...]
--- OUTSIDE RECORDS SUMMARY | 2018-12-05 12:20 | XMS REPORT ---
Author Author ERIK SAMAYOA Organization [facility] Address [address] [place] [address] Care Team Providers Care Waxer Name Role Phone DANITA ERIK Unavailable PROBLEMS Type Condition ICD9-CM Code CYK59-YI Code Onset Dates Condition Status SNOMED Code Problem Acute cystitis with hematuria N30.01 Active 21235760 Problem Major depressive disorder, single episode, unspecified F32.9 Active 88903493 Problem Congestive heart failure, unspecified congestive heart failure chronicity, unspecified congestive heart failure type I50.9 Active 77287836 Problem Chronic fatigue, unspecified R53.82 Active 154332517 Problem Mood disorder F39 Active 62931693 Problem Anticoagulant long-term use Z79.01 Active 397755580 Problem PVD (peripheral vascular disease) I73.9 Active 454358117 Problem Amput leg, unil NOS-comp S88.919A Active 41017236 ALLERGIES No Information SOCIAL HISTORY Never Assessed PLAN OF CARE VITAL SIGNS MEDICATIONS Medication Instructions Dosage Frequency Start Date End Date Duration Status Cipro 500 MG Orally Twice a day 1 tablet 12h Oct, Oct, 10 day(s) Active RESULTS No Results PROCEDURES No [...]
--- OUTSIDE RECORDS SUMMARY | 2018-12-05 12:20 | XMS REPORT ---
Author Author ERIK SAMAYOA Organization [facility] Address [address] [place] [address] Care Team Providers Care Junior Copywriter Name Role Phone ERIK SAMAYOA Unavailable PROBLEMS Type Condition ICD9-CM Code VBS31-OO Code Onset Dates Condition Status SNOMED Code Problem Acute cystitis with hematuria N30.01 Active 30305918 Problem Major depressive disorder, single episode, unspecified F32.9 Active 05250666 Problem Congestive heart failure, unspecified congestive heart failure chronicity, unspecified congestive heart failure type I50.9 Active 84964042 Problem Chronic fatigue, unspecified R53.82 Active 123906514 Problem Mood disorder F39 Active 89138087 Problem Anticoagulant long-term use Z79.01 Active 394860471 Problem PVD (peripheral vascular disease) I73.9 Active 558164173 Problem Amput leg, unil NOS-comp S88.919A Active 22832183 ALLERGIES No Information ENCOUNTERS Encounter Location Date Diagnosis [facility] [id number] [place] [address] Aug, Nausea R11.0 and Weakness R53.1 [facility] [id number] [place] [address] Aug, [facility] [id number] [place] [address] Aug, Hematuria R31.9 and Acute cystitis with hematuria N30.01 [facility] [address] [address] Aug, [facility] [id number] [place] [address] Jul, Vitamin B 12 deficiency E53.8 [facility] [address] [address] Jul, Anticoagulant long-term use Z79.01 [place] [id number] [place] [address] Jun, Chronic fatigue, unspecified R53.82 [place] [id number] [place] [address] Jun, Anticoagulant long-term use Z79.01 [place] [id number] [place] [address] May, Flu-like symptoms R68.89 and Influenza A J10.1 [place] [id number] [place] [address] May, [place] [id number] [place] [address] May, Chronic fatigue, unspecified R53.82 [place] [id number] [place] [address] May, Anticoagulant long-term use Z79.01 [place] [id number] [place] [address] 15 Apr, 2017 Medicare welcome exam Z00.00 ; Anticoagulant long-term use Z79.01 ; Medicare annual wellness visit, initial Z00.00 ; Medicare annual wellness visit, subsequent Z00.00 and Chronic fatigue, unspecified R53.82 [place] [id number] [place] [address] Mar, Chronic fatigue, unspecified R53.82 [place] [id number] [place] [address] Mar, Anticoagulant long-term use Z79.01 [place] [id number] [place] [address] 07 Mar, 2017 Anticoagulant long-term use Z79.01 and Hematuria R31.9 [place] [id number] [place] [address] Mar, Hematuria R31.9 [facility] [id number] [place] [address] Feb, Anticoagulant long-term use Z79.01 [facility] [id number] [place] [address] Feb, Anticoagulant long-term use Z79.01 [place] [id number] [place] [address] Feb, Anticoagulant long-term use Z79.01 [place] [id number] [place] [address] Feb, Chronic fatigue, unspecified R53.82 [place] [id number] [place] [address] Feb, Anticoagulant long-term use Z79.01 [place] [id number] [place] [address] Feb, Congestive heart failure, unspecified congestive heart failure chronicity, unspecified congestive heart failure type I50.9 [place] [id number] [place] [address] Feb, Congestive heart failure, unspecified congestive heart failure chronicity, unspecified congestive heart failure type I50.9 [place] [id number] [place] [address] Feb, [place] [id number] [place] [address] Jan, Anticoagulant long-term use Z79.01 [place] [id number] [place] [address] Jan, [place] [id number] [place] [address] Jan, Anticoagulant long-term use Z79.01 and Hematuria R31.9 [place] [id number] [place] [address] Jan, Anticoagulant long-term use Z79.01 [facility] [address] [place] [address] Jan, Chronic fatigue, unspecified R53.82 [facility] [id number] [place] [address] Jan, Anticoagulant long-term use Z79.01 [facility] [id number] [place] [address] Dec, Chronic fatigue, unspecified R53.82 [place] [id number] [place] [address] Dec, [place] [id number] [place] [address] Dec, Chronic fatigue, unspecified R53.82 and Encounter for therapeutic drug level monitoring Z51.81 [place] [id number] [place] [address] Nov, Encounter for therapeutic drug level monitoring Z51.81 [place] [id number] [place] [address] Nov, Hematuria R31.9 [place] [id number] [place] [address] Nov, Hematuria R31.9 ; Anticoagulant long-term use Z79.01 and PVD (peripheral vascular disease) I73.9 [place] [id number] [place] [address] Nov, Anticoagulant long-term use Z79.01 [place] [id number] [place] [address] Nov, Anticoagulant long-term use Z79.01 [facility] [id number] [place] [address] Nov, [place] [id number] [place] [address] Nov, Hematuria R31.9 and Acute cystitis with hematuria N30.01 [facility] [id number] [place] [id number] Oct, [facility] [id number] [place] [address] Oct, [facility] [id number] [place] [address] Oct, Hematuria R31.9 [place] [id number] [place] [address] Oct, Hematuria R31.9 [place] [address] [address] Oct, Anticoagulant long-term use Z79.01 [place] [id number] [place] [address] Oct, Anticoagulant long-term use Z79.01 [place] [id number] [place] [address] Oct, [place] [id number] [place] [address] September, PVD (peripheral vascular disease) I73.9 ; Amput leg, unil NOS-comp S88.919A ; Acute cystitis without hematuria N30.00 ; Anticoagulant long-term use Z79.01 and Hypokalemia E87.6 [place] [id number] [place] [address] Aug, Anticoagulant long-term use Z79.01 and Bronchitis J40 [place] [id number] [place] [address] Jul, [place] [id number] [place] [address] Jul, Anticoagulant long-term use Z79.01 and Mood disorder F39 [place] [id number] [place] [address] Jul, [facility] [id number] [place] [address] May, [facility] [id number] [place] [address] May, Hypokalemia E87.6 [facility] [address] [address] May, Mood disorder F39 [facility] [address] [address] May, Anticoagulant long-term use Z79.01 [facility] [address] [address] Apr, Anticoagulant long-term use Z79.01 [facility] [id number] [place] [address] Apr, Anticoagulant long-term use Z79.01 [facility] [id number] [place] [address] Apr, [facility] [id number] [place] [address] Apr, Anticoagulant long-term use Z79.01 [facility] [id number] [place] [address] Apr, Anticoagulant long-term use Z79.01 [facility] [id number] [place] [address] Apr, Anticoagulant long-term use Z79.01 [facility] [id number] [place] [address] Mar, [facility] [id number] [place] [address] Mar, [facility] [id number] [place] [address] Mar, Anticoagulant long-term use Z79.01 [facility] [id number] [place] [address] Feb, [facility] [id number] [place] [address] Feb, [facility] [id number] [place] [address] Feb, Anticoagulant long-term use Z79.01 [facility] [id number] [place] [address] Feb, Anticoagulant long-term use Z79.01 [facility] [id number] [place] [address] Jan, [facility] [id number] [place] [address] Jan, Anticoagulant long-term use Z79.01 [facility] [id number] [place] [address] Jan, Anticoagulant long-term use Z79.01 [facility] [id number] [place] [address] Dec, Anticoagulant long-term use Z79.01 [facility] [id number] [place] [address] Dec, Anticoagulant long-term use Z79.01 [facility] [id number] [place] [address] Dec, Anticoagulant long-term use Z79.01 and Mood disorder F39 [facility] [id number] [place] [address] Dec, [facility] [id number] [place] [address] Nov, [facility] [id number] [place] [address] Nov, Anticoagulant long-term use Z79.01 [facility] [address] [place] [address] Nov, Anticoagulant long-term use Z79.01 [facility] [id number] [place] [address] September, Anticoagulant long-term use Z79.01 [facility] [id number] [place] [address] Jul, Anticoagulant long-term use Z79.01 [facility] [id number] [place] [address] May, Anticoagulant long-term use Z79.01 [facility] [id number] [place] [address] May, Anticoagulant long-term use Z79.01 [facility] [id number] [place] [address] May, Anticoagulant long-term use Z79.01 [facility] [id number] [place] [address] May, Anticoagulant long-term use Z79.01 [facility] [id number] [place] [address] May, [facility] [id number] [place] [address] May, Congestive heart failure, unspecified congestive heart failure chronicity, unspecified congestive heart failure type I50.9 and Pulmonary congestion R09.89 [place] [id number] [place] [address] Apr, Cough R05 ; Congestive heart failure, unspecified congestive heart failure chronicity, unspecified congestive heart failure type I50.9 and Pulmonary congestion R09.89 [place] [id number] [place] [address] Mar, Hematuria R31.9 [place] [id number] [place] [address] Mar, [facility] [id number] [place] [address] Mar, Anticoagulant long-term use Z79.01 [facility] [id number] [place] [address] Mar, [facility] [id number] [place] [address] Mar, Hematuria R31.9 and Infective urethritis N34.2 [facility] [address] [address] Mar, Anticoagulant long-term use Z79.01 [place] [id number] [place] [address] Mar, Anticoagulant long-term use Z79.01 [facility] [address] [address] Mar, [facility] [id number] [place] [address] Mar, Anticoagulant long-term use Z79.01 [facility] [id number] [place] [address] Feb, Peristomal skin breakdown L98.499 [facility] [id number] [place] [address] Feb, [place] [address] [address] Feb, UTI (urinary tract infection) N39.0 [place] [id number] [place] [address] Jan, [place] [id number] [place] [address] Dec, High risk medication use V58.69 [facility] [id number] [place] [address] Nov, High risk medication use V58.69 [facility] [address], [place] [address] Nov, [facility] [address] [place] [address] Nov, UTI (lower urinary tract infection) 599.0 ; URI, acute 465.9 ; Insomnia 780.52 ; Anxiety 300.00 and Lower limb amputation, unspecified level V49.70 [facility] [address] [facility] [id number] [place] [address] Oct, UTI (lower urinary tract infection) 599.0 ; URI, acute 465.9 ; Insomnia 780.52 ; Anxiety 300.00 and Lower limb amputation, unspecified level V49.70 [facility] [address] [place] [address] Aug, [facility] [id number] [place] [address] Aug, [facility] [id number] [place] [address] Jul, [facility] [id number] [place] [address] Jul, [facility] [address] [place] [address] Jun, [facility] [address], [place] [address] Jun, [facility] [id number] [address] Mar, [facility] [id number] [place] [address] Mar, [facility] [address], [place] [address] Mar, [facility] [id number] [place] [address] Mar, [facility] [place] [facility] [address] [id number] [place] [address] Mar, [facility] [place] [facility] [address] [id number] [place] [address] Feb, [facility] [place] [facility] [address] [id number] [place] [address] Feb, [facility] [place] [facility] [address] [id number] [place] [address] Feb, [facility] [place] [facility] [address] [id number] [place] [address] Feb, [facility] [place] [facility] [address] [id number] [place] [address] Feb, [facility] [place] [facility] [address] [id number] [place] [address] Feb, [facility] [place] [facility] [address] [id number] [place] [address] Feb, [facility] [place] [facility] [address] [id number] [place] [address] Feb, [facility] [place] [facility] [address] [id number] [place] [address] Feb, [facility] [place] [facility] [address] [id number], [place] [address] Feb, [facility] [place] [facility] [address] [id number], [place] [address] Feb, [facility] [place] [facility] [address] [id number] [place] [address] Feb, [facility] [place] [facility] [address] [id number], [place] [address] Feb, [facility] [place] [facility] [address] [id number], [place] [address] Feb, [facility] [place] [facility] [address] [id number] [place] [address] Feb, [facility] [place] [facility] [address] [id number] [place] [address] Feb, [facility] [place] [facility] [address] [id number] [place] [address] Jan, [facility] [place] [facility] [address] [id number] [place] [address] Jan, [facility] [place] [facility] [address] [id number] [place] [address] Jan, [facility] [place] [facility] [address] [id number] [place] [address] Jan, [facility] [place] [facility] [address] [id number] [place] [address] Jan, [facility] [place] [facility] [address] [id number] [place] [address] Nov, [facility] [place] [facility] [address] [id number] [place] [address] Nov, [facility] [place] [facility] [address] [id number] [place] [address] Nov, [facility] [place] [facility] [address] [id number] [place] [address] Nov, [facility] [place] [facility] [address] [id number] [place] [address] Nov, [facility] [place] [facility] [address] [id number] [place] [address] Nov, [facility] [place] [facility] [address] [id number] [place] [address] Oct, [facility] [place] [facility] [address] [id number] [place] [address] Oct, [facility] [place] [facility] [address] [id number] [place] [address] Oct, [facility] [place] [facility] [address] [id number] [place] [address] Oct, [facility] [place] [facility] [address] [id number] [place] [address] Oct, [facility] [place] [facility] [address] [id number] [place] [address] Oct, [facility] [place] [facility] [address] [id number] [place] [address] Oct, [facility] [place] [facility] [address] [id number] [place] [address] September, [facility] [place] [facility] [address] [id number] [place] [address] September, [facility] [place] [facility] [address] [id number] [place] [address] September, [facility] [place] [facility] [address] [id number] [place] [address] September, [facility] [place] [facility] [address] [id number] [place] [address] September, [facility] [place] [facility] [address] [id number] [place] [address] September, [facility] [place] [facility] [address] [id number] [place] [address] September, [facility] [place] [facility] [address] [id number] [place] [address] September, [facility] [place] [facility] [address] [id number] [place] [address] Aug, [facility] [place] [facility] [address] [id number] [place] [address] Aug, [facility] [place] [facility] [address] [id number] [place] [address] Aug, [facility] [place] [facility] [address] [id number], [place] [address] Aug, [facility] [place] [facility] [address] [id number] [place] [address] Jul, [facility] [place] [facility] [address] [id number] [place] [address] Jul, [facility] [place] [facility] [address] [id number] [place] [address] Jun, [facility] [place] [facility] [address] [id number] [place] [address] Jun, [facility] [place] [facility] [address] [id number] [place] [address] Jun, [facility] [place] [facility] [address] [id number] [place] [address] Jun, [facility] [place] [facility] [address] [id number] [place] [address] Jun, [facility] [place] [facility] [address] [id number] [place] [address] Jun, [facility] [place] [facility] [address] [id number] [place] [address] May, [facility] [place] [facility] [address] [id number] [place] [address] May, [facility] [place] [facility] [address] [id number] [place] [address] May, [facility] [place] [facility] [address] [id number], [place] [address] May, [facility] [place] [facility] [address] [id number] [place] [address] May, [facility] [place] [facility] [address] [id number] [place] [address] May, [facility] [place] [facility] [address] [id number], [place] [address] Feb, [facility] [place] [facility] [address] [id number] [place] [address] Feb, [facility] [address] [id number] [place] [address] Feb, [facility] [place] [facility] [address] [id number] [place] [address] Feb, [facility] [place] [facility] [address] [id number] [place] [address] Jan, [facility] [address] [id number] [place] [address] Jan, [facility] [address] [id number] [place] [address] Jan, [facility] [address] [id number] [place] [address] Dec, [facility] [address] [id number] [place] [address] Nov, [facility] [address] [id number] [place] [address] Nov, [facility] [address] [id number] [place] [address] Nov, [facility] [address] [id number] [place] [address] Nov, [facility] [place] [facility] [address] [id number] [place] [address] Nov, [facility] [place] [facility] [address] [id number] [place] [address] Oct, [facility] [place] [facility] [address] [id number] [place] [address] September, [facility] [place] [facility] [address] [id number] [place] [address] September, [facility] [place] [facility] [address] [id number] [place] [address] Aug, [facility] [address] [id number] [place] [address] Aug, [facility] [address] [id number] [place] [address] Jul, [facility] [address] [facility] [id number] [place] [address] Jul, [facility] [address] [id number] [place] [address] Jul, [facility] [address] [id number] [place] [address] Jul, [facility] [address] [facility] [id number] [place] [address] Jun, [facility] [address] [facility] [id number] [place] [address] Jun, [facility] [address] [id number] [place] [address] Jun, [facility] [address] [facility] [id number] [place] [address] May, [facility] [address] [facility] [id number] [place] [address] May, [facility] [address] [id number] [place] [address] May, [facility] [place] [facility] [address] [id number] [place] [address] May, [facility] [place] [facility] [address] [id number] [place] [address] Apr, [facility] [place] [facility] [address] [id number] [place] [address] Apr, [facility] [place] [facility] [address] [facility] [id number] [place] [address] Apr, [facility] [place] [facility] [address] [id number] [place] [address] 05 Apr, 2012 [facility] [place] [facility] [address] [id number] [place] [address] Apr, [facility] [place] [facility] [address] [id number] [place] [address] Apr, [facility] [place] [facility] [address] [id number] [place] [address] Mar, [facility] [place] [facility] [address] [id number] [place] [address] Mar, [facility] [place] [facility] [address] [id number] [place] [address] Mar, [facility] [place] [facility] [address] [id number] [place] [address] Mar, [facility] [place] [facility] [address] [id number] [place] [address] Mar, [facility] [place] [facility] [address] [id number] [place] [address] Mar, [facility] [place] [facility] [address] [id number] [place] [address] Feb, [facility] [place] [facility] [address] [facility] [id number] [place] [address] Feb, [facility] [place] [facility] [address] [id number] [place] [address] Feb, [facility] [place] [facility] [address] [id number] [place] [address] Feb, [facility] [place] [facility] [address] [id number] [place] [address] Jan, [facility] [place] [facility] [address] [id number] [place] [address] Jan, [facility] [place] [facility] [address] [id number] [place] [address] 24 Jan, 2012 [facility] [place] [facility] [address] [id number] [place] [address] Jan, [facility] [place] [facility] [address] [id number] [place] [address] Dec, [facility] [place] [facility] [address] [id number] [place] [address] Dec, [facility] [place] [facility] [address] [id number] [place] [address] Nov, [facility] [place] [facility] [address] [id number] [place] [address] Oct, [facility] [place] [facility] [address] [id number] [place] [address] Oct, [facility] [place] [facility] [address] [id number] [place] [address] Oct, [facility] [place] [facility] [address] [id number] [place] [address] September, [facility] [place] [facility] [address] [id number] [place] [address] September, [facility] [place] [facility] [address] [id number] [place] [address] September, [facility] [place] [facility] [address] [id number] [place] [address] September, [facility] [place] [facility] [address] [id number] [place] [address] September, [facility] [place] [facility] [address] [id number] [place] [address] September, [facility] [place] [facility] [address] [id number] [place] [address] September, [facility] [place] [facility] [address] [id number] [place] [address] Jul, [facility] [place] [facility] [address] [id number] [place] [address] 07 Jul, 2011 [facility] [address] [id number] [place] [address] 28 Jun, 2011 [facility] [place] [facility] [address] [id number] [place] [address] 27 Jun, 2011 [facility] [address] [id number] [place] [address] 06 Jun, 2011 [facility] [address] [id number] [place] [address] 10 May, 2011 [facility] [address] [id number] [place] [address] 29 Mar, 2011 [facility] [address] [id number] [place] [address] 18 Mar, 2011 [facility] [address] [facility] [id number] [place] [address] 14 Mar, 2011 [facility] [address] [id number] [place] [address] 31 Feb, 2011 [facility] [address] [facility] [id number] [place] [address] 18 Feb, 2011 [facility] [address] [facility] [id number] [place] [address] 13 Dec, 2009 [facility] [place] [facility] [address] [id number] [place] [address] 15 May, 2009 [facility] [place] [facility] [address] [id number] [place] [address] 29 Apr, 2009 [facility] [place] [facility] [address] [id number] [place] [address] 28 Apr, 2009 [facility] [place] [facility] [address] [id number] [place] [address] 14 Apr, 2009 [facility] [place] [facility] [address] [id number] [place] [address] Apr, [facility] [address] [facility] [id number] [place] [address] Feb, [facility] [address] [facility] [id number] [place] [address] Oct, IMMUNIZATIONS No Known Immunizations SOCIAL HISTORY Never Assessed REASON FOR VISIT PLAN OF CARE VITAL SIGNS MEDICATIONS No Known Medications RESULTS No Results PROCEDURES No Known [...] removal 06/25/2009 Hospitalization History pneumonia, hypoxia-[facility] 11/03/16
--- OUTSIDE RECORDS SUMMARY | 2018-12-05 12:21 | XMS REPORT ---
Author Author ERIK SAMAYOA Organization [facility] Address [address] [place] [address] Care Team Providers Care Artist'S Manager Name Role Phone ERIK SAMAYOA Unavailable PROBLEMS Type Condition ICD9-CM Code MPM42-MT Code Onset Dates Condition Status SNOMED Code Problem Acute cystitis with hematuria N30.01 Active 03171147 Problem Major depressive disorder, single episode, unspecified F32.9 Active 16203677 Problem Congestive heart failure, unspecified congestive heart failure chronicity, unspecified congestive heart failure type I50.9 Active 52616031 Problem Chronic fatigue, unspecified R53.82 Active 202064777 Problem Mood disorder F39 Active 32923154 Problem Anticoagulant long-term use Z79.01 Active 227210721 Problem PVD (peripheral vascular disease) I73.9 Active 026907360 Problem Amput leg, unil NOS-comp S88.919A Active 58239615 ALLERGIES No Information ENCOUNTERS Encounter Location Date Diagnosis [facility] [address] [address] Aug, Chronic fatigue, unspecified R53.82 [facility] [address] [address] Aug, Anticoagulant long-term use Z79.01 [facility] [address] [address] Aug, Nausea R11.0 and Weakness R53.1 [facility] [address] [address] Aug, [facility] [address] [address] Aug, Hematuria R31.9 and Acute cystitis with hematuria N30.01 [facility] [address] [place] [address] Aug, [place] [id number] [place] [address] Jul, Vitamin B 12 deficiency E53.8 [place] [id number] [place] [address] Jul, Anticoagulant long-term use Z79.01 [place] [address] [address] Jun, Chronic fatigue, unspecified R53.82 [place] [id number] [place] [address] Jun, Anticoagulant long-term use Z79.01 [place] [id number] [place] [address] May, Flu-like symptoms R68.89 and Influenza A J10.1 [place] [id number] [place] [address] May, [place] [id number] [place] [address] May, Chronic fatigue, unspecified R53.82 [place] [id number] [place] [address] May, Anticoagulant long-term use Z79.01 [place] [id number] [place] [address] Apr, Medicare welcome exam Z00.00 ; Anticoagulant long-term use Z79.01 ; Medicare annual wellness visit, initial Z00.00 ; Medicare annual wellness visit, subsequent Z00.00 and Chronic fatigue, unspecified R53.82 [place] [id number] [place] [address] Mar, Chronic fatigue, unspecified R53.82 [place] [id number] [place] [address] Mar, Anticoagulant long-term use Z79.01 [facility] [address] [address] Mar, Anticoagulant long-term use Z79.01 and Hematuria R31.9 [facility] [id number] [place] [address] Mar, Hematuria R31.9 [facility] [id number] [place] [address] Feb, Anticoagulant long-term use Z79.01 [place] [id number] [place] [address] Feb, Anticoagulant long-term use Z79.01 [place] [id number] [place] [address] Feb, Anticoagulant long-term use Z79.01 [place] [id number] [place] [address] Feb, Chronic fatigue, unspecified R53.82 [place] [id number] [place] [address] Feb, Anticoagulant long-term use Z79.01 [place] [id number] [place] [address] Feb, Congestive heart failure, unspecified congestive heart failure chronicity, unspecified congestive heart failure type I50.9 [place] [address] [address] Feb, Congestive heart failure, unspecified congestive heart failure chronicity, unspecified congestive heart failure type I50.9 [place] [id number] [place] [address] Feb, [place] [id number] [place] [address] Jan, Anticoagulant long-term use Z79.01 [place] [id number] [place] [address] Jan, [place] [id number] [place] [address] Jan, Anticoagulant long-term use Z79.01 and Hematuria R31.9 [place] [id number] [place] [address] Jan, Anticoagulant long-term use Z79.01 [place] [id number] [place] [address] Jan, Chronic fatigue, unspecified R53.82 [place] [id number] [place] [address] Jan, Anticoagulant long-term use Z79.01 [place] [id number] [place] [address] Dec, Chronic fatigue, unspecified R53.82 [place] [id number] [place] [address] Dec, [place] [id number] [place] [address] Dec, Chronic fatigue, unspecified R53.82 and Encounter for therapeutic drug level monitoring Z51.81 [place] [id number] [place] [address] Nov, Encounter for therapeutic drug level monitoring Z51.81 [place] [id number] [place] [address] Nov, Hematuria R31.9 [place] [id number] [place] [address] Nov, Hematuria R31.9 ; Anticoagulant long-term use Z79.01 and PVD (peripheral vascular disease) I73.9 [place] [id number] [place] [address] Nov, Anticoagulant long-term use Z79.01 [place] [id number] [place] [address] Nov, Anticoagulant long-term use Z79.01 [place] [id number] [place] [address] Nov, [place] [id number] [place] [address] Nov, Hematuria R31.9 and Acute cystitis with hematuria N30.01 [facility] [address] [id number] Oct, [place] [id number] [place] [address] Oct, [place] [address] [address] Oct, Hematuria R31.9 [place] [id number] [place] [address] Oct, Hematuria R31.9 [place] [id number] [place] [address] Oct, Anticoagulant long-term use Z79.01 [place] [address] [address] Oct, Anticoagulant long-term use Z79.01 [place] [id number] [place] [address] Oct, [place] [address] [address] September, PVD (peripheral vascular disease) I73.9 ; Amput leg, unil NOS-comp S88.919A ; Acute cystitis without hematuria N30.00 ; Anticoagulant long-term use Z79.01 and Hypokalemia E87.6 [place] [id number] [place] [address] Aug, Anticoagulant long-term use Z79.01 and Bronchitis J40 [place] [address] [place] [address] Jul, [facility] [id number] [place] [address] Jul, Anticoagulant long-term use Z79.01 and Mood disorder F39 [facility] [id number] [place] [address] Jul, [facility] [address] [address] May, [facility] [address] [address] May, Hypokalemia E87.6 [facility] [address] [address] May, Mood disorder F39 [facility] [address] [address] May, Anticoagulant long-term use Z79.01 [facility] [address] [address] Apr, Anticoagulant long-term use Z79.01 [facility] [address] [address] Apr, Anticoagulant long-term use Z79.01 [facility] [id number] [place] [address] Apr, [facility] [address] [address] Apr, Anticoagulant long-term use Z79.01 [facility] [address] [address] Apr, Anticoagulant long-term use Z79.01 [facility] [id number] [place] [address] Apr, Anticoagulant long-term use Z79.01 [facility] [address] [address] Mar, [facility] [id number] [place] [address] Mar, [facility] [id number] [place] [address] Mar, Anticoagulant long-term use Z79.01 [facility] [id number] [place] [address] Feb, [facility] [id number] [place] [address] Feb, [facility] [address] [address] Feb, Anticoagulant long-term use Z79.01 [facility] [id number] [place] [address] Feb, Anticoagulant long-term use Z79.01 [facility] [id number] [place] [address] Jan, [facility] [id number] [place] [address] Jan, Anticoagulant long-term use Z79.01 [facility] [id number] [place] [address] Jan, Anticoagulant long-term use Z79.01 [facility] [id number] [place] [address] Dec, Anticoagulant long-term use Z79.01 [facility] [id number] [place] [address] Dec, Anticoagulant long-term use Z79.01 [facility] [id number] [place] [address] Dec, Anticoagulant long-term use Z79.01 and Mood disorder F39 [facility] [id number] [place] [address] Dec, [facility] [address] [address] Nov, [facility] [id number] [place] [address] Nov, Anticoagulant long-term use Z79.01 [facility] [id number] [place] [address] Nov, Anticoagulant long-term use Z79.01 [facility] [id number] [place] [address] September, Anticoagulant long-term use Z79.01 [place] [id number] [place] [address] Jul, Anticoagulant long-term use Z79.01 [place] [id number] [place] [address] May, Anticoagulant long-term use Z79.01 [place] [id number] [place] [address] May, Anticoagulant long-term use Z79.01 [place] [id number] [place] [address] May, Anticoagulant long-term use Z79.01 [facility] [id number] [place] [address] May, Anticoagulant long-term use Z79.01 [facility] [id number] [place] [address] May, [facility] [id number] [place] [address] May, Congestive heart failure, unspecified congestive heart failure chronicity, unspecified congestive heart failure type I50.9 and Pulmonary congestion R09.89 [facility] [id number] [address] Apr, Cough R05 ; Congestive heart failure, unspecified congestive heart failure chronicity, unspecified congestive heart failure type I50.9 and Pulmonary congestion R09.89 [facility] [id number] [place] [address] Mar, Hematuria R31.9 [facility] [id number] [place] [address] Mar, [facility] [address] [address] Mar, Anticoagulant long-term use Z79.01 [place] [id number] [place] [address] Mar, [place] [address] [address] Mar, Hematuria R31.9 and Infective urethritis N34.2 [place] [address] [address] Mar, Anticoagulant long-term use Z79.01 [place] [address] [address] Mar, Anticoagulant long-term use Z79.01 [place] [id number] [place] [address] Mar, [place] [id number] [place] [address] Mar, Anticoagulant long-term use Z79.01 [place] [id number] [place] [address] Feb, Peristomal skin breakdown L98.499 [place] [address] [address] Feb, [place] [id number] [place] [address] Feb, UTI (urinary tract infection) N39.0 [place] [address] [address] Jan, [facility] [id number] [address] Dec, High risk medication use V58.69 [facility] [address], [place] [address] Nov, High risk medication use V58.69 [facility] [id number] [place] [address] Nov, [facility] [address], [place] [address] Nov, UTI (lower urinary tract infection) 599.0 ; URI, acute 465.9 ; Insomnia 780.52 ; Anxiety 300.00 and Lower limb amputation, unspecified level V49.70 [facility] [address], [place] [address] Oct, UTI (lower urinary tract infection) 599.0 ; URI, acute 465.9 ; Insomnia 780.52 ; Anxiety 300.00 and Lower limb amputation, unspecified level V49.70 [facility] [address], [place] [address] Aug, [facility] [address], [place] [address] Aug, [facility] [address] [address] Jul, [facility] [id number] [address] Jul, [facility] [address], [place] [address] Jun, [facility] [address], [place] [address] Jun, [facility] [id number] [address] Mar, [facility] [place] [facility] [address] [id number] [place] [address] Mar, [facility] [place] [facility] [address] [id number] [place] [address] Mar, [facility] [place] [facility] [address] [id number] [place] [address] Mar, [facility] [place] [facility] [address] [id number] [place] [address] Mar, [facility] [place] [facility] [address] [id number] [place] [address] Feb, [facility] [place] [facility] [address] [id number] [place] [address] Feb, [facility] [place] [facility] [address] [id number] [place] [address] Feb, [facility] [place] [facility] [address] [id number] [place] [address] Feb, [facility] [place] [facility] [address] [id number] [place] [address] Feb, [facility] [place] [facility] [address] [id number] [place] [address] Feb, [facility] [place] [facility] [address] [id number] [place] [address] Feb, [facility] [place] [facility] [address] [id number] [place] [address] Feb, [facility] [place] [facility] [address] [id number] [place] [address] Feb, [facility] [place] [facility] [address] [id number] [place] [address] Feb, [facility] [place] [facility] [address] [id number] [place] [address] Feb, [facility] [place] [facility] [address] [id number] [place] [address] Feb, [facility] [place] [facility] [address] [id number] [place] [address] Feb, [facility] [place] [facility] [address] [id number] [place] [address] Feb, [facility] [place] [facility] [address] [id number] [place] [address] Feb, [facility] [place] [facility] [address] [id number] [place] [address] Feb, [facility] [place] [facility] [address] [id number] [place] [address] Jan, [facility] [place] [facility] [address] [id number] [place] [address] Jan, [facility] [place] [facility] [address] [id number] [place] [address] Jan, [facility] [place] [facility] [address] [id number] [place] [address] Jan, [facility] [place] [facility] [address] [id number] [place] [address] Jan, [facility] [place] [facility] [address] [id number] [place] [address] Nov, [facility] [place] [facility] [address] [id number] [place] [address] Nov, [facility] [place] [facility] [address] [id number] [address] Nov, [facility] [place] [facility] [address] [id number] [place] [address] Nov, [facility] [place] [facility] [address] [id number] [place] [address] Nov, [facility] [place] [facility] [address] [id number] [place] [address] Nov, [facility] [place] [facility] [address] [id number] [place] [address] Oct, [facility] [place] [facility] [address] [id number] [place] [address] Oct, [facility] [place] [facility] [address] [id number] [place] [address] Oct, [facility] [place] [facility] [address] [id number] [place] [address] Oct, [facility] [place] [facility] [address] [id number] [place] [address] Oct, [facility] [place] [facility] [address] [id number] [place] [address] Oct, [facility] [place] [facility] [address] [id number] [place] [address] Oct, [facility] [place] [facility] [address] [id number] [place] [address] September, [facility] [place] [facility] [address] [id number] [place] [address] September, [facility] [place] [facility] [address] [id number] [place] [address] September, [facility] [place] [facility] [address] [id number] [place] [address] September, [facility] [place] [facility] [address] [id number] [place] [address] September, [facility] [place] [facility] [address] [id number] [place] [address] September, [facility] [place] [facility] [address] [id number] [place] [address] September, [facility] [place] [facility] [address] [id number] [place] [address] September, [facility] [place] [facility] [address] [id number] [place] [address] Aug, [facility] [place] [facility] [address] [id number] [place] [address] Aug, [facility] [place] [facility] [address] [id number] [place] [address] Aug, [facility] [place] [facility] [address] [id number] [place] [address] Aug, [facility] [place] [facility] [address] [id number] [place] [address] Jul, [facility] [place] [facility] [address] [id number] [place] [address] Jul, [facility] [place] [facility] [address] [id number] [place] [address] Jun, [facility] [place] [facility] [address] [id number] [place] [address] Jun, [facility] [place] [facility] [address] [id number] [place] [address] Jun, [facility] [place] [facility] [address] [id number] [place] [address] Jun, [facility] [place] [facility] [address] [id number] [place] [address] Jun, [facility] [place] [facility] [address] [id number] [place] [address] Jun, [facility] [place] [facility] [address] [id number] [place] [address] May, [facility] [place] [facility] [address] [id number] [place] [address] May, [facility] [place] [facility] [address] [id number] [place] [address] May, [facility] [place] [facility] [address] [id number] [place] [address] May, [facility] [place] [facility] [address] [id number] [place] [address] May, [facility] [address] [id number] [place] [address] May, [facility] [place] [facility] [address] [id number] [place] [address] Feb, [facility] [place] [facility] [address] [id number] [place] [address] Feb, [facility] [place] [facility] [address] [id number] [place] [address] Feb, [facility] [place] [facility] [address] [id number] [place] [address] Feb, [facility] [place] [facility] [address] [id number] [place] [address] Jan, [facility] [place] [facility] [address] [id number] [place] [address] Jan, [facility] [place] [facility] [address] [id number] [place] [address] Jan, [facility] [place] [facility] [address] [id number] [place] [address] Dec, [facility] [place] [facility] [address] [id number] [place] [address] Nov, [facility] [place] [facility] [address] [id number] [place] [address] Nov, [facility] [place] [facility] [address] [id number] [place] [address] Nov, [facility] [place] [facility] [address] [id number] [place] [address] Nov, [facility] [place] [facility] [address] [id number] [place] [address] Nov, [facility] [place] [facility] [address] [id number] [place] [address] Oct, [facility] [place] [facility] [address] [id number] [place] [address] September, [facility] [address] [id number] [place] [address] September, [facility] [address] [id number] [place] [address] Aug, [facility] [address] [id number] [place] [address] Aug, [facility] [address] [id number] [place] [address] Jul, [facility] [address] [id number] [place] [address] Jul, [facility] [address] [id number] [place] [address] Jul, [facility] [address] [id number] [place] [address] Jul, [facility] [address] [id number] [place] [address] Jun, [facility] [address] [id number] [place] [address] Jun, [facility] [address] [id number] [place] [address] Jun, [facility] [address] [id number] [place] [address] May, [facility] [place] [facility] [address] [id number] [place] [address] May, [facility] [place] [facility] [address] [id number] [place] [address] May, [facility] [place] [facility] [address] [id number] [place] [address] May, [facility] [place] [facility] [address] [id number], [place] [address] Apr, [facility] [place] [facility] [address] [id number] [place] [address] Apr, [facility] [place] [facility] [address] [id number] [place] [address] Apr, [facility] [place] [facility] [address] [id number] [place] [address] Apr, [facility] [place] [facility] [address] [id number] [place] [address] Apr, [facility] [place] [facility] [address] [id number] [place] [address] Apr, [facility] [place] [facility] [address] [id number] [place] [address] Mar, [facility] [place] [facility] [address] [id number] [place] [address] Mar, [facility] [place] [facility] [address] [id number] [place] [address] Mar, [facility] [place] [facility] [address] [id number], [place] [address] Mar, [facility] [place] [facility] [address] [id number] [place] [address] Mar, [facility] [place] [facility] [address] [id number], [place] [address] Mar, [facility] [place] [facility] [address] [id number], [place] [address] Feb, [facility] [place] [facility] [address] [id number], [place] [address] Feb, [facility] [place] [facility] [address] [id number], [place] [address] Feb, [facility] [place] [facility] [address] [id number] [place] [address] Feb, [facility] [place] [facility] [address] [id number] [place] [address] 25 Jan, 2012 [facility] [address] [id number] [place] [address] 25 Jan, 2012 [facility] [place] [facility] [address] [id number] [place] [address] 24 Jan, 2012 [facility] [address] [id number] [place] [address] Jan, [facility] [address] [id number] [place] [address] Dec, [facility] [address] [id number] [place] [address] Dec, [facility] [address] [id number] [place] [address] Nov, [facility] [address] [id number] [place] [address] Oct, [facility] [address] [id number] [place] [address] Oct, [facility] [address] [id number] [place] [address] Oct, [facility] [address] [id number] [place] [address] September, [facility] [address] [id number] [place] [address] September, [facility] [address] [id number] [place] [address] September, [facility] [place] [facility] [address] [id number] [place] [address] September, [facility] [address] [id number] [place] [address] September, [facility] [address] [id number] [place] [address] September, [facility] [place] [facility] [address] [id number] [place] [address] September, [facility] [place] [facility] [address] [id number] [place] [address] Jul, [facility] [place] [facility] [address] [id number] [place] [address] Jul, [facility] [place] [facility] [address] [id number] [place] [address] Jun, [facility] [place] [facility] [address] [id number] [place] [address] Jun, [facility] [place] [facility] [address] [id number] [place] [address] Jun, [facility] [place] [facility] [address] [id number] [place] [address] May, [facility] [place] [facility] [address] [id number] [place] [address] Mar, [facility] [place] [facility] [address] [id number] [place] [address] Mar, [facility] [place] [facility] [address] [id number] [place] [address] Mar, [facility] [place] [facility] [address] [id number] [place] [address] Feb, [facility] [place] [facility] [address] [id number], [place] [address] Feb, [facility] [place] [facility] [address] [id number] [place] [address] Dec, [facility] [place] [facility] [address] [id number] [place] [address] 15 May, 2009 [facility] [place] [facility] [address] [id number] [place] [address] Apr, [facility] [place] [facility] [address] [facility] [id number] [place] [address] Apr, [facility] [address] [facility] [id number], [place] [address] Apr, [facility] [address] [facility] [id number], [place] [address] Apr, [facility] [address] [facility] [id number], [place] [address] Feb, [facility] [address] [facility] [id number], [place] [address] Oct, IMMUNIZATIONS No Known Immunizations SOCIAL HISTORY Never Assessed REASON FOR VISIT Lab (walk-in)--[facility] PLAN OF CARE VITAL SIGNS MEDICATIONS Unknown Medications RESULTS Name Result Date Reference Range INR (IN HOUSE) 2017-02-15 INR 3.4 1.10 - 3.30 PREVIOUS INR 3.4 CURRENT COUMADIN DOSE 2 mg ,,/1 mg , , Mon, Mon NEW COUMADIN DOSE Lot # [id number] Exp date 09/2017 PROCEDURES Procedure Date Ordered Result Body Site PROTHROMBIN TIME Feb 15, 2017 INSTRUCTIONS MEDICATIONS ADMINISTERED No [...] 5th toe removal 06/25/2009 Hospitalization History pneumonia, hypoxia-[facility] 11/03/16
--- OUTSIDE RECORDS SUMMARY | 2018-12-05 12:22 | XMS REPORT ---
Author Author ERIK SAMAYOA Organization [facility] Address [address] [place] [address] Care Team Providers Care Director [employer] Name Role Phone ERIK SAMAYOA Unavailable PROBLEMS Type Condition ICD9-CM Code [id number] Code Onset Dates Condition Status SNOMED Code Problem Major depressive disorder, single episode, unspecified F32.9 Active 18022935 Problem Anticoagulant long-term use Z79.01 Active 907434653 Problem Acute cystitis with hematuria N30.01 Active 66272525 Problem Vitamin B12 deficiency E53.8 Dec, Active 615942289 Problem Congestive heart failure, unspecified congestive heart failure chronicity, unspecified congestive heart failure type I50.9 Active 36732442 Problem Amput leg, unil NOS-comp S88.919A Active 48592568 Problem Mood disorder F39 Active 70632470 Problem Chronic fatigue, unspecified R53.82 Active 298867563 Problem PVD (peripheral vascular disease) I73.9 Active 595001061 ALLERGIES No Information ENCOUNTERS Encounter Location Date Diagnosis [facility] [id number] [place] [address] Oct, [facility] [id number] [place] [address] September, Anticoagulant long-term use Z79.01 and Congestive heart failure, unspecified congestive heart failure chronicity, unspecified congestive heart failure type I50.9 [facility] [address] [address] September, Vitamin B12 deficiency E53.8 [facility] [address] [address] September, Anticoagulant long-term use Z79.01 [facility] [address] [place] [address] September, Anticoagulant long-term use Z79.01 and Congestive heart failure, unspecified congestive heart failure chronicity, unspecified congestive heart failure type I50.9 [place] [address] [address] Aug, Chronic fatigue, unspecified R53.82 [place] [address] [address] Aug, Anticoagulant long-term use Z79.01 [place] [address] [address] Aug, Nausea R11.0 and Weakness R53.[address] [address] Aug, [facility] [address] [address] Aug, Hematuria R31.9 and Acute cystitis with hematuria N30.01 [place] [address] [address] Aug, [place] [address] [address] Jul, Vitamin B 12 deficiency E53.8 [place] [address] [address] Jul, Anticoagulant long-term use Z79.01 [place] [address] [address] Jun, Chronic fatigue, unspecified R53.82 [place] [address] [address] Jun, Anticoagulant long-term use Z79.01 [place] [address] [address] May, Flu-like symptoms R68.89 and Influenza A J10.1 [place] [address] [place] [address] May, [facility] [id number] [place] [address] May, Chronic fatigue, unspecified R53.82 [facility] [id number] [place] [address] May, Anticoagulant long-term use Z79.01 [place] [id number] [place] [address] Apr, Medicare welcome exam Z00.00 ; Anticoagulant long-term use Z79.01 ; Medicare annual wellness visit, initial Z00.00 ; Medicare annual wellness visit, subsequent Z00.00 and Chronic fatigue, unspecified R53.82 [place] [id number] [place] [address] Mar, Chronic fatigue, unspecified R53.82 [place] [id number] [place] [address] Mar, Anticoagulant long-term use Z79.01 [place] [id number] [place] [address] Mar, Anticoagulant long-term use Z79.01 and Hematuria R31.9 [place] [id number] [place] [address] Mar, Hematuria R31.9 [place] [id number] [place] [address] Feb, Anticoagulant long-term use Z79.01 [place] [id number] [place] [address] Feb, Anticoagulant long-term use Z79.01 [place] [id number] [place] [address] Feb, Anticoagulant long-term use Z79.01 [place] [id number] [place] [address] Feb, Chronic fatigue, unspecified R53.82 [facility] [address] [address] Feb, Anticoagulant long-term use Z79.01 [facility] [id number] [place] [address] Feb, Congestive heart failure, unspecified congestive heart failure chronicity, unspecified congestive heart failure type I50.9 [facility] [id number] [place] [address] Feb, Congestive heart failure, unspecified congestive heart failure chronicity, unspecified congestive heart failure type I50.9 [facility] [id number] [place] [address] Feb, [facility] [id number] [place] [address] Jan, Anticoagulant long-term use Z79.01 [facility] [id number] [place] [address] Jan, [facility] [id number] [place] [address] Jan, Anticoagulant long-term use Z79.01 and Hematuria R31.9 [facility] [address] [place] [address] Jan, Anticoagulant long-term use Z79.01 [facility] [address] [place] [address] Jan, Chronic fatigue, unspecified R53.82 [facility] [address] [place] [address] Jan, Anticoagulant long-term use Z79.01 [facility] [address] [place] [address] Dec, Chronic fatigue, unspecified R53.82 [facility] [id number] [place] [address] Dec, [facility] [address] [place] [address] Dec, Chronic fatigue, unspecified R53.82 and Encounter for therapeutic drug level monitoring Z51.81 [facility] [id number] [place] [address] Nov, Encounter for therapeutic drug level monitoring Z51.81 [facility] [id number] [place] [address] Nov, Hematuria R31.9 [facility] [id number] [place] [address] Nov, Hematuria R31.9 ; Anticoagulant long-term use Z79.01 and PVD (peripheral vascular disease) I73.9 [facility] [id number] [place] [address] Nov, Anticoagulant long-term use Z79.01 [facility] [id number] [place] [address] Nov, Anticoagulant long-term use Z79.01 [facility] [id number] [place] [address] Nov, [facility] [id number] [place] [address] Nov, Hematuria R31.9 and Acute cystitis with hematuria N30.01 [facility] [id number] [place] [id number] Oct, [facility] [id number] [place] [address] Oct, [facility] [id number] [place] [address] Oct, Hematuria R31.9 [facility] [address] [place] [address] Oct, Hematuria R31.9 [place] [id number] [place] [address] Oct, Anticoagulant long-term use Z79.01 [place] [address] [address] Oct, Anticoagulant long-term use Z79.01 [place] [id number] [place] [address] Oct, [place] [address] [address] September, PVD (peripheral vascular disease) I73.9 ; Amput leg, unil NOS-comp S88.919A ; Acute cystitis without hematuria N30.00 ; Anticoagulant long-term use Z79.01 and Hypokalemia E87.6 [place] [id number] [place] [address] Aug, Anticoagulant long-term use Z79.01 and Bronchitis J40 [place] [id number] [place] [address] Jul, [place] [address] [address] Jul, Anticoagulant long-term use Z79.01 and Mood disorder F39 [place] [id number] [place] [address] Jul, [place] [id number] [place] [address] May, [place] [id number] [place] [address] May, Hypokalemia E87.6 [place] [address] [address] May, Mood disorder F39 [place] [id number] [place] [address] May, Anticoagulant long-term use Z79.01 [facility] [id number] [place] [address] Apr, Anticoagulant long-term use Z79.01 [facility] [id number] [place] [address] Apr, Anticoagulant long-term use Z79.01 [facility] [id number] [place] [address] Apr, [facility] [id number] [place] [address] Apr, Anticoagulant long-term use Z79.01 [facility] [id number] [place] [address] Apr, Anticoagulant long-term use Z79.01 [facility] [id number] [place] [address] Apr, Anticoagulant long-term use Z79.01 [facility] [id number] [place] [address] Mar, [facility] [id number] [place] [address] Mar, [facility] [id number] [place] [address] Mar, Anticoagulant long-term use Z79.01 [facility] [id number] [place] [address] Feb, [facility] [id number] [place] [address] Feb, [facility] [address] [address] 07 Feb, 2016 Anticoagulant long-term use Z79.01 [facility] [id number] [place] [address] 05 Feb, 2016 Anticoagulant long-term use Z79.01 [facility] [id number] [place] [address] Jan, [facility] [id number] [place] [address] Jan, Anticoagulant long-term use Z79.01 [facility] [id number] [place] [address] Jan, Anticoagulant long-term use Z79.01 [facility] [address] [address] Dec, Anticoagulant long-term use Z79.01 [facility] [id number] [place] [address] Dec, Anticoagulant long-term use Z79.01 [facility] [id number] [place] [address] Dec, Anticoagulant long-term use Z79.01 and Mood disorder F39 [facility] [id number] [place] [address] Dec, [facility] [id number] [place] [address] Nov, [facility] [id number] [place] [address] Nov, Anticoagulant long-term use Z79.01 [facility] [id number] [place] [address] Nov, Anticoagulant long-term use Z79.01 [facility] [id number] [place] [address] September, Anticoagulant long-term use Z79.01 [facility] [id number] [place] [address] Jul, Anticoagulant long-term use Z79.01 [facility] [id number] [place] [address] May, Anticoagulant long-term use Z79.01 [facility] [id number] [place] [address] May, Anticoagulant long-term use Z79.01 [place] [id number] [place] [address] May, Anticoagulant long-term use Z79.01 [place] [id number] [place] [address] May, Anticoagulant long-term use Z79.01 [place] [id number] [place] [address] May, [place] [address] [address] May, Congestive heart failure, unspecified congestive heart failure chronicity, unspecified congestive heart failure type I50.9 and Pulmonary congestion R09.89 [place] [address] [address] Apr, Cough R05 ; Congestive heart failure, unspecified congestive heart failure chronicity, unspecified congestive heart failure type I50.9 and Pulmonary congestion R09.89 [place] [address] [address] Mar, Hematuria R31.9 [place] [id number] [place] [address] Mar, [place] [id number] [place] [address] Mar, Anticoagulant long-term use Z79.01 [place] [id number] [place] [address] Mar, [place] [address] [address] Mar, Hematuria R31.9 and Infective urethritis N34.2 [place] [address] [address] Mar, Anticoagulant long-term use Z79.01 [facility] [id number] [address] Mar, Anticoagulant long-term use Z79.01 [facility] [id number] [address] Mar, [facility] [id number] [address] Mar, Anticoagulant long-term use Z79.01 [facility] [address] [facility] [id number] [address] Feb, Peristomal skin breakdown L98.499 [facility] [address] [place] [address] Feb, [facility] [address] [place] [address] Feb, UTI (urinary tract infection) N39.0 [facility] [address] [address] Jan, [facility] [address] [place] [address] Dec, High risk medication use V58.69 [facility] [id number] [address] Nov, High risk medication use V58.69 [facility] [address] [address] Nov, [facility] [id number] [address] Nov, UTI (lower urinary tract infection) 599.0 ; URI, acute 465.9 ; Insomnia 780.52 ; Anxiety 300.00 and Lower limb amputation, unspecified level V49.70 [facility] [id number] [address] Oct, UTI (lower urinary tract infection) 599.0 ; URI, acute 465.9 ; Insomnia 780.52 ; Anxiety 300.00 and Lower limb amputation, unspecified level V49.70 [facility] [id number] [address] 14 Aug, 2014 [facility] [id number] [address] Aug, [facility] [place] [facility] [id number] [place] [address] Jul, [facility] [id number] [place] [address] Jul, [facility] [place] [facility] [id number] [place] [address] Jun, [facility] [id number] [place] [address] Jun, [facility] [id number] [place] [address] Mar, [facility] [address] [address] Mar, [facility] [id number] [place] [address] Mar, [facility] [address] [address] Mar, [facility] [address] [address] Mar, [facility] [place] [facility] [address] [address] Feb, [facility] [place] [facility] [id number] [address] Feb, [facility] [id number] [address] Feb, [facility] [address] [address] Feb, [facility] [place] [facility] [address] [id number] [place] [address] Feb, [facility] [place] [facility] [address] [id number] [place] [address] Feb, [facility] [place] [facility] [address] [id number] [place] [address] Feb, [facility] [place] [facility] [address] [id number] [place] [address] Feb, [facility] [place] [facility] [address] [id number] [place] [address] Feb, [facility] [place] [facility] [address] [id number] [place] [address] Feb, [facility] [place] [facility] [address] [id number] [place] [address] Feb, [facility] [place] [facility] [address] [id number] [address] Feb, [facility] [place] [facility] [address] [id number] [address] Feb, [facility] [place] [facility] [address] [id number] [address] Feb, [facility] [place] [facility] [address] [id number] [address] Feb, [facility] [place] [facility] [address] [id number] [address] Feb, [facility] [place] [facility] [address] [id number] [place] [address] Jan, [facility] [place] [facility] [address] [id number] [address] Jan, [facility] [place] [facility] [address] [id number] [address] Jan, [facility] [place] [facility] [address] [id number] [place] [address] Jan, [facility] [place] [facility] [address] [id number] [place] [address] Jan, [facility] [place] [facility] [address] [id number] [place] [address] Nov, [facility] [place] [facility] [address] [id number] [place] [address] Nov, [facility] [place] [facility] [address] [id number] [place] [address] Nov, [facility] [place] [facility] [address] [id number] [place] [address] Nov, [facility] [place] [facility] [address] [id number] [place] [address] Nov, [facility] [place] [facility] [address] [id number] [place] [address] Nov, [facility] [place] [facility] [address] [id number] [place] [address] Oct, [facility] [place] [facility] [address] [id number] [place] [address] Oct, [facility] [place] [facility] [address] [id number] [place] [address] Oct, [facility] [place] [facility] [address] [id number] [place] [address] Oct, [facility] [place] [facility] [address] [id number] [place] [address] Oct, [facility] [place] [facility] [address] [id number] [place] [address] Oct, [facility] [place] [facility] [address] [id number] [place] [address] Oct, [facility] [place] [facility] [address] [id number] [place] [address] September, [facility] [place] [facility] [address] [id number] [place] [address] September, [facility] [place] [facility] [address] [id number] [place] [address] September, [facility] [place] [facility] [address] [id number] [place] [address] September, [facility] [place] [facility] [address] [id number] [place] [address] September, [facility] [place] [facility] [address] [id number] [place] [address] September, [facility] [place] [facility] [address] [id number] [place] [address] September, [facility] [address] [id number] [place] [address] September, [facility] [address] [id number] [place] [address] Aug, [facility] [facility] [address] [id number] [place] [address] Aug, [facility] [place] [facility] [address] [id number] [place] [address] Aug, [facility] [place] [facility] [address] [id number] [place] [address] Aug, [facility] [place] [facility] [address] [id number] [place] [address] Jul, [facility] [place] [facility] [address] [id number] [place] [address] Jul, [facility] [place] [facility] [address] [id number] [place] [address] Jun, [facility] [place] [facility] [address] [id number] [place] [address] Jun, [facility] [place] [facility] [address] [id number] [place] [address] Jun, [facility] [place] [facility] [address] [id number] [place] [address] Jun, [facility] [place] [facility] [address] [id number] [place] [address] Jun, [facility] [place] [facility] [address] [id number] [place] [address] Jun, [facility] [place] [facility] [address] [id number] [place] [address] May, [facility] [place] [facility] [address] [id number] [place] [address] May, [facility] [place] [facility] [address] [id number] [place] [address] May, [facility] [place] [facility] [address] [id number] [place] [address] May, [facility] [place] [facility] [address] [id number] [place] [address] May, [facility] [place] [facility] [address] [id number] [place] [address] May, [facility] [place] [facility] [address] [id number] [place] [address] Feb, [facility] [place] [facility] [address] [id number] [place] [address] Feb, [facility] [place] [facility] [address] [id number] [address] Feb, [facility] [place] [facility] [address] [id number] [place] [address] Feb, [facility] [place] [facility] [address] [id number] [place] [address] Jan, [facility] [place] [facility] [address] [id number] [address] Jan, [facility] [place] [facility] [address] [id number] [place] [address] Jan, [facility] [address] [id number] [place] [address] Dec, [facility] [place] [facility] [address] [id number] [place] [address] Nov, [facility] [place] [facility] [address] [id number] [place] [address] Nov, [facility] [address] [id number] [place] [address] Nov, [facility] [place] [facility] [address] [id number] [place] [address] Nov, [facility] [address] [id number] [place] [address] Nov, [facility] [address] [id number] [place] [address] Oct, [facility] [address] [id number] [place] [address] September, [facility] [address] [id number] [place] [address] September, [facility] [address] [id number] [place] [address] Aug, [facility] [place] [facility] [address] [id number] [place] [address] Aug, [facility] [place] [facility] [address] [id number] [place] [address] 29 Jul, 2012 [facility] [place] [facility] [address] [id number] [place] [address] Jul, [facility] [place] [facility] [address] [id number] [place] [address] 08 Jul, 2012 [facility] [place] [facility] [address] [id number] [address] Jul, [facility] [address] [id number] [place] [address] Jun, [facility] [address] [id number] [place] [address] Jun, [facility] [address] [id number] [place] [address] Jun, [facility] [address] [id number] [place] [address] May, [facility] [address] [id number] [place] [address] May, [facility] [address] [id number] [place] [address] May, [facility] [address] [id number] [place] [address] May, [facility] [address] [id number] [place] [address] Apr, [facility] [address] [id number] [place] [address] Apr, [facility] [address] [facility] [id number] [place] [address] Apr, [facility] [address] [id number] [address] Apr, [facility] [address] [id number] [address] Apr, [facility] [address] [id number] [place] [address] Apr, [facility] [place] [facility] [address] [id number] [place] [address] Mar, [facility] [address] [id number] [place] [address] Mar, [facility] [place] [facility] [address] [id number] [place] [address] Mar, [facility] [place] [facility] [address] [id number] [place] [address] Mar, [facility] [place] [facility] [address] [id number] [place] [address] Mar, [facility] [place] [facility] [address] [id number] [place] [address] Mar, [facility] [place] [facility] [address] [id number] [place] [address] Feb, [facility] [place] [facility] [address] [id number] [place] [address] Feb, [facility] [place] [facility] [address] [id number] [place] [address] Feb, [facility] [place] [facility] [address] [id number] [place] [address] Feb, [facility] [place] [facility] [address] [id number] [place] [address] Jan, [facility] [place] [facility] [address] [id number] [place] [address] Jan, [facility] [place] [facility] [address] [id number] [place] [address] 24 Jan, 2012 [facility] [place] [facility] [address] [id number] [place] [address] 10 Jan, 2012 [facility] [place] [facility] [address] [id number] [place] [address] Dec, [facility] [place] [facility] [address] [id number] [place] [address] Dec, [facility] [place] [facility] [address] [id number] [place] [address] Nov, [facility] [place] [facility] [address] [id number] [place] [address] Oct, [facility] [place] [facility] [address] [id number] [place] [address] Oct, [facility] [place] [facility] [address] [id number] [place] [address] Oct, [facility] [place] [facility] [address] [id number] [place] [address] September, [facility] [place] [facility] [address] [id number] [place] [address] September, [facility] [place] [facility] [address] [id number] [place] [address] September, [facility] [place] [facility] [address] [id number] [place] [address] September, [facility] [place] [facility] [address] [id number] [place] [address] September, [facility] [place] [facility] [address] [id number] [place] [address] September, [facility] [place] [facility] [address] [id number] [place] [address] September, [facility] [place] [facility] [address] [id number] [place] [address] Jul, [facility] [place] [facility] [address] [id number] [place] [address] Jul, [facility] [place] [facility] [address] [id number] [place] [address] Jun, [facility] [place] [facility] [address] [id number] [place] [address] Jun, [facility] [place] [facility] [address] [id number] [place] [address] Jun, [facility] [place] [facility] [address] [id number] [place] [address] May, [facility] [place] [facility] [id number] [address] Mar, [facility] [id number] [address] Mar, [facility] [id number] [address] Mar, [facility] [id number] [address] Feb, [facility] [id number] [address] Feb, [facility] [id number] [place] [address] Dec, [facility] [id number] [place] [address] May, [facility] [id number] [place] [address] Apr, [facility] [id number] [address] Apr, [facility] [id number] [place] [address] Apr, [facility] [id number] [address] Apr, [facility] [id number] [address] Feb, [facility] [address] [id number] [address] Oct, IMMUNIZATIONS No Known Immunizations SOCIAL HISTORY Never Assessed REASON FOR VISIT Lab (walk-in) PLAN OF CARE VITAL SIGNS MEDICATIONS Unknown Medications RESULTS Name Result Date Reference Range INR (IN HOUSE) 2017-05-17 INR 2.7 1.10 - 3.30 PREVIOUS INR 3.5 CURRENT COUMADIN DOSE 1 mg qd NEW COUMADIN DOSE Lot # [id number] Exp date 09/2017 PROCEDURES Procedure Date Ordered Result Body Site PROTHROMBIN TIME May 17, 2017 INSTRUCTIONS MEDICATIONS ADMINISTERED No Known [...]
--- OUTSIDE RECORDS SUMMARY | 2018-12-05 12:22 | XMS REPORT ---
Author Author ERIK SAMAYOA Organization [facility] Address [address] [place] [address] Care Team Providers Care Herbicide Service Sales Representative Name Role Phone ERIK SAMAYOA Unavailable PROBLEMS Type Condition ICD9-CM Code IAC69-HX Code Onset Dates Condition Status SNOMED Code Problem Major depressive disorder, single episode, unspecified F32.9 Active 16917458 Problem Anticoagulant long-term use Z79.01 Active 989229459 Problem Acute cystitis with hematuria N30.01 Active 97645789 Problem Vitamin B12 deficiency E53.8 Dec, Active 037874047 Problem Congestive heart failure, unspecified congestive heart failure chronicity, unspecified congestive heart failure type I50.9 Active 97126833 Problem Amput leg, unil NOS-comp S88.919A Active 76189325 Problem Mood disorder F39 Active 11652591 Problem Chronic fatigue, unspecified R53.82 Active 431820574 Problem PVD (peripheral vascular disease) I73.9 Active 048239511 ALLERGIES No Information ENCOUNTERS Encounter Location Date Diagnosis [facility] [id number] [place] [address] Oct, [facility] [id number] [place] [address] September, Anticoagulant long-term use Z79.01 and Congestive heart failure, unspecified congestive heart failure chronicity, unspecified congestive heart failure type I50.9 [facility] [address] [address] September, Vitamin B12 deficiency E53.8 [facility] [address] [address] September, Anticoagulant long-term use Z79.01 [facility] [id number] [place] [address] September, Anticoagulant long-term use Z79.01 and Congestive heart failure, unspecified congestive heart failure chronicity, unspecified congestive heart failure type I50.9 [facility] [address] [address] Aug, Chronic fatigue, unspecified R53.82 [facility] [address] [address] Aug, Anticoagulant long-term use Z79.01 [facility] [place] [address] [address] Aug, Nausea R11.0 and Weakness R53.[address] [address] Aug, [facility] [address] [address] Aug, Hematuria R31.9 and Acute cystitis with hematuria N30.01 [place] [address] [address] Aug, [place] [address] [address] Jul, Vitamin B 12 deficiency E53.8 [facility] [address] [address] Jul, Anticoagulant long-term use Z79.01 [place] [address] [address] Jun, Chronic fatigue, unspecified R53.82 [facility] [address] [address] Jun, Anticoagulant long-term use Z79.01 [facility] [address] [address] May, Flu-like symptoms R68.89 and Influenza A J10.1 [facility] [address] [place] [address] May, [facility] [id number] [place] [address] May, Chronic fatigue, unspecified R53.82 [facility] [id number] [place] [address] May, Anticoagulant long-term use Z79.01 [facility] [id number] [place] [address] Apr, Medicare welcome exam Z00.00 ; Anticoagulant long-term use Z79.01 ; Medicare annual wellness visit, initial Z00.00 ; Medicare annual wellness visit, subsequent Z00.00 and Chronic fatigue, unspecified R53.82 [facility] [place] [id number] [place] [address] Mar, Chronic fatigue, unspecified R53.82 [facility] [id number] [place] [address] Mar, Anticoagulant long-term use Z79.01 [facility] [place] [id number] [place] [address] Mar, Anticoagulant long-term use Z79.01 and Hematuria R31.9 [facility] [id number] [place] [address] Mar, Hematuria R31.9 [facility] [place] [id number] [place] [address] Feb, Anticoagulant long-term use Z79.01 [facility] [place] [id number] [place] [address] Feb, Anticoagulant long-term use Z79.01 [facility] [place] [id number] [place] [address] Feb, Anticoagulant long-term use Z79.01 [facility] [place] [id number] [place] [address] Feb, Chronic fatigue, unspecified R53.82 [facility] [address] [address] Feb, Anticoagulant long-term use Z79.01 [facility] [id number] [place] [address] Feb, Congestive heart failure, unspecified congestive heart failure chronicity, unspecified congestive heart failure type I50.9 [facility] [id number] [place] [address] Feb, Congestive heart failure, unspecified congestive heart failure chronicity, unspecified congestive heart failure type I50.9 [facility] [id number] [place] [address] Feb, [facility] [id number] [place] [address] Jan, Anticoagulant long-term use Z79.01 [facility] [id number] [place] [address] Jan, [facility] [id number] [place] [address] Jan, Anticoagulant long-term use Z79.01 and Hematuria R31.9 [facility] [id number] [place] [address] Jan, Anticoagulant long-term use Z79.01 [facility] [id number] [place] [address] Jan, Chronic fatigue, unspecified R53.82 [facility] [id number] [place] [address] Jan, Anticoagulant long-term use Z79.01 [facility] [id number] [place] [address] Dec, Chronic fatigue, unspecified R53.82 [facility] [id number] [place] [address] Dec, [facility] [id number] [place] [address] Dec, Chronic fatigue, unspecified R53.82 and Encounter for therapeutic drug level monitoring Z51.81 [facility] [id number] [place] [address] Nov, Encounter for therapeutic drug level monitoring Z51.81 [facility] [id number] [place] [address] Nov, Hematuria R31.9 [facility] [id number] [place] [address] Nov, Hematuria R31.9 ; Anticoagulant long-term use Z79.01 and PVD (peripheral vascular disease) I73.9 [facility] [id number] [place] [address] Nov, Anticoagulant long-term use Z79.01 [facility] [id number] [place] [address] Nov, Anticoagulant long-term use Z79.01 [facility] [id number] [place] [address] Nov, [facility] [id number] [place] [address] Nov, Hematuria R31.9 and Acute cystitis with hematuria N30.01 [facility] [id number] [place] [id number] Oct, [facility] [id number] [place] [address] Oct, [facility] [id number] [place] [address] Oct, Hematuria R31.9 [facility] [id number] [place] [address] Oct, Hematuria R31.9 [facility] [id number] [place] [address] Oct, Anticoagulant long-term use Z79.01 [place] [address] [address] Oct, Anticoagulant long-term use Z79.01 [facility] [id number] [place] [address] Oct, [place] [address] [address] September, PVD (peripheral vascular disease) I73.9 ; Amput leg, unil NOS-comp S88.919A ; Acute cystitis without hematuria N30.00 ; Anticoagulant long-term use Z79.01 and Hypokalemia E87.6 [place] [id number] [place] [address] Aug, Anticoagulant long-term use Z79.01 and Bronchitis J40 [place] [id number] [place] [address] Jul, [place] [address] [address] Jul, Anticoagulant long-term use Z79.01 and Mood disorder F39 [place] [id number] [place] [address] Jul, [facility] [place] [id number] [place] [address] May, [facility] [id number] [place] [address] May, Hypokalemia E87.6 [place] [address] [address] May, Mood disorder F39 [place] [id number] [place] [address] May, Anticoagulant long-term use Z79.01 [facility] [id number] [place] [address] Apr, Anticoagulant long-term use Z79.01 [facility] [id number] [place] [address] Apr, Anticoagulant long-term use Z79.01 [facility] [id number] [place] [address] Apr, [facility] [id number] [place] [address] Apr, Anticoagulant long-term use Z79.01 [facility] [id number] [place] [address] Apr, Anticoagulant long-term use Z79.01 [facility] [id number] [place] [address] Apr, Anticoagulant long-term use Z79.01 [facility] [id number] [place] [address] Mar, [facility] [id number] [place] [address] Mar, [facility] [id number] [place] [address] Mar, Anticoagulant long-term use Z79.01 [facility] [id number] [place] [address] Feb, [facility] [id number] [place] [address] Feb, [facility] [address] [address] 07 Feb, 2016 Anticoagulant long-term use Z79.01 [facility] [id number] [place] [address] 05 Feb, 2016 Anticoagulant long-term use Z79.01 [facility] [address] [place] [address] Jan, [facility] [id number] [place] [address] Jan, Anticoagulant long-term use Z79.01 [facility] [id number] [place] [address] Jan, Anticoagulant long-term use Z79.01 [facility] [address] [address] Dec, Anticoagulant long-term use Z79.01 [facility] [id number] [place] [address] Dec, Anticoagulant long-term use Z79.01 [facility] [id number] [place] [address] Dec, Anticoagulant long-term use Z79.01 and Mood disorder F39 [facility] [id number] [place] [address] Dec, [facility] [id number] [place] [address] Nov, [facility] [id number] [place] [address] Nov, Anticoagulant long-term use Z79.01 [facility] [id number] [place] [address] Nov, Anticoagulant long-term use Z79.01 [facility] [id number] [place] [address] September, Anticoagulant long-term use Z79.01 [facility] [id number] [place] [address] Jul, Anticoagulant long-term use Z79.01 [facility] [id number] [place] [address] May, Anticoagulant long-term use Z79.01 [facility] [id number] [place] [address] May, Anticoagulant long-term use Z79.01 [place] [id number] [place] [address] May, Anticoagulant long-term use Z79.01 [place] [id number] [place] [address] May, Anticoagulant long-term use Z79.01 [place] [id number] [place] [address] May, [place] [address] [address] May, Congestive heart failure, unspecified congestive heart failure chronicity, unspecified congestive heart failure type I50.9 and Pulmonary congestion R09.89 [place] [address] [address] Apr, Cough R05 ; Congestive heart failure, unspecified congestive heart failure chronicity, unspecified congestive heart failure type I50.9 and Pulmonary congestion R09.89 [place] [address] [address] Mar, Hematuria R31.9 [place] [id number] [place] [address] Mar, [place] [id number] [place] [address] Mar, Anticoagulant long-term use Z79.01 [place] [id number] [place] [address] Mar, [place] [address] [address] Mar, Hematuria R31.9 and Infective urethritis N34.2 [place] [address] [address] Mar, Anticoagulant long-term use Z79.01 [facility] [id number] [address] Mar, Anticoagulant long-term use Z79.01 [facility] [id number] [address] Mar, [facility] [id number] [address] Mar, Anticoagulant long-term use Z79.01 [facility] [address] [facility] [id number] [address] Feb, Peristomal skin breakdown L98.499 [facility] [id number] [place] [address] Feb, [facility] [id number] [place] [address] Feb, UTI (urinary tract infection) N39.0 [facility] [address] [address] Jan, [facility] [id number] [place] [address] Dec, High risk medication use V58.69 [facility] [id number] [address] Nov, High risk medication use V58.69 [facility] [address] [address] Nov, [facility] [id number] [address] Nov, UTI (lower urinary tract infection) 599.0 ; URI, acute 465.9 ; Insomnia 780.52 ; Anxiety 300.00 and Lower limb amputation, unspecified level V49.70 [facility] [id number] [address] Oct, UTI (lower urinary tract infection) 599.0 ; URI, acute 465.9 ; Insomnia 780.52 ; Anxiety 300.00 and Lower limb amputation, unspecified level V49.70 [facility] [id number] [address] 14 Aug, 2014 [facility] [id number] [address] Aug, [facility] [id number] [place] [address] Jul, [facility] [id number] [place] [address] Jul, [facility] [id number] [place] [address] Jun, [facility] [id number] [place] [address] Jun, [facility] [id number] [place] [address] Mar, [facility] [address] [address] Mar, [facility] [id number] [place] [address] Mar, [facility] [address] [address] Mar, [facility] [address] [address] Mar, [facility] [address] [address] Feb, [facility] [id number] [address] Feb, [facility] [address], [place] [address] Feb, [facility] [address] [address] Feb, [facility] [place] [facility] [address] [id number] [place] [address] Feb, [facility] [place] [facility] [address] [id number] [place] [address] Feb, [facility] [place] [facility] [address] [id number] [place] [address] Feb, [facility] [place] [facility] [address] [id number] [place] [address] Feb, [facility] [place] [facility] [address] [id number] [place] [address] Feb, [facility] [place] [facility] [address] [id number] [place] [address] Feb, [facility] [place] [facility] [address] [id number] [place] [address] Feb, [facility] [place] [facility] [address] [id number], [place] [address] Feb, [facility] [place] [facility] [address] [id number] [address] Feb, [facility] [place] [facility] [address] [id number] [address] Feb, [facility] [place] [facility] [address] [id number], [place] [address] Feb, [facility] [place] [facility] [address] [id number], [place] [address] Feb, [facility] [place] [facility] [address] [id number] [address] Jan, [facility] [place] [facility] [address] [id number] [address] Jan, [facility] [place] [facility] [address] [id number] [address] Jan, [facility] [place] [facility] [address] [id number] [place] [address] Jan, [facility] [place] [facility] [address] [id number] [place] [address] Jan, [facility] [place] [facility] [address] [id number] [place] [address] Nov, [facility] [place] [facility] [address] [id number] [place] [address] Nov, [facility] [place] [facility] [address] [id number] [place] [address] Nov, [facility] [place] [facility] [address] [id number] [place] [address] Nov, [facility] [place] [facility] [address] [id number] [place] [address] Nov, [facility] [place] [facility] [address] [id number] [place] [address] Nov, [facility] [place] [facility] [address] [id number] [place] [address] Oct, [facility] [place] [facility] [address] [id number] [place] [address] Oct, [facility] [place] [facility] [address] [id number] [place] [address] Oct, [facility] [place] [facility] [address] [id number] [place] [address] Oct, [facility] [place] [facility] [address] [id number] [place] [address] Oct, [facility] [place] [facility] [address] [id number] [place] [address] Oct, [facility] [place] [facility] [address] [id number] [place] [address] Oct, [facility] [place] [facility] [address] [id number] [place] [address] September, [facility] [place] [facility] [address] [id number] [place] [address] September, [facility] [place] [facility] [address] [id number] [place] [address] September, [facility] [place] [facility] [address] [id number] [place] [address] September, [facility] [place] [facility] [address] [id number] [place] [address] September, [facility] [place] [facility] [address] [id number] [place] [address] September, [facility] [place] [facility] [address] [id number] [place] [address] September, [facility] [address] [id number] [place] [address] September, [facility] [address] [id number] [place] [address] Aug, [facility] [place] [facility] [address] [id number] [place] [address] Aug, [facility] [place] [facility] [address] [id number] [place] [address] Aug, [facility] [place] [facility] [address] [id number] [place] [address] Aug, [facility] [place] [facility] [address] [id number] [place] [address] Jul, [facility] [place] [facility] [address] [id number] [place] [address] Jul, [facility] [place] [facility] [address] [id number] [place] [address] Jun, [facility] [place] [facility] [address] [id number] [place] [address] Jun, [facility] [place] [facility] [address] [id number] [place] [address] Jun, [facility] [place] [facility] [address] [id number] [place] [address] Jun, [facility] [place] [facility] [address] [id number] [place] [address] Jun, [facility] [place] [facility] [address] [id number] [place] [address] Jun, [facility] [place] [facility] [address] [id number] [place] [address] May, [facility] [place] [facility] [address] [id number] [place] [address] May, [facility] [place] [facility] [address] [id number] [place] [address] May, [facility] [place] [facility] [address] [id number] [place] [address] May, [facility] [place] [facility] [address] [id number] [place] [address] May, [facility] [place] [facility] [address] [id number] [place] [address] May, [facility] [place] [facility] [address] [id number] [place] [address] Feb, [facility] [place] [facility] [address] [id number] [place] [address] Feb, [facility] [place] [facility] [address] [id number] [address] Feb, [facility] [place] [facility] [address] [id number] [place] [address] Feb, [facility] [place] [facility] [address] [id number] [place] [address] Jan, [facility] [place] [facility] [address] [id number] [address] Jan, [facility] [place] [facility] [address] [id number] [place] [address] Jan, [facility] [address] [id number] [place] [address] Dec, [facility] [place] [facility] [address] [id number] [place] [address] Nov, [facility] [place] [facility] [address] [id number] [place] [address] Nov, [facility] [address] [id number] [place] [address] Nov, [facility] [place] [facility] [address] [id number] [place] [address] Nov, [facility] [address] [id number] [place] [address] Nov, [facility] [address] [id number] [place] [address] Oct, [facility] [address] [id number] [place] [address] September, [facility] [address] [id number] [place] [address] September, [facility] [address] [id number] [place] [address] Aug, [facility] [place] [facility] [address] [id number] [place] [address] Aug, [facility] [place] [facility] [address] [id number] [place] [address] 29 Jul, 2012 [facility] [place] [facility] [address] [id number] [place] [address] Jul, [facility] [place] [facility] [address] [id number] [place] [address] 08 Jul, 2012 [facility] [place] [facility] [address] [id number] [address] Jul, [facility] [address] [id number] [place] [address] Jun, [facility] [address] [id number] [place] [address] Jun, [facility] [address] [id number] [place] [address] Jun, [facility] [address] [id number] [place] [address] May, [facility] [address] [id number] [place] [address] May, [facility] [address] [id number] [place] [address] May, [facility] [address] [id number] [place] [address] May, [facility] [address] [id number] [place] [address] Apr, [facility] [address] [id number] [place] [address] Apr, [facility] [address] [facility] [id number] [place] [address] Apr, [facility] [address] [id number] [address] Apr, [facility] [address] [id number], [place] [address] Apr, [facility] [address] [id number] [place] [address] Apr, [facility] [place] [facility] [address] [id number] [place] [address] Mar, [facility] [address] [id number] [place] [address] Mar, [facility] [place] [facility] [address] [id number] [place] [address] Mar, [facility] [place] [facility] [address] [id number] [place] [address] Mar, [facility] [place] [facility] [address] [id number] [place] [address] Mar, [facility] [place] [facility] [address] [id number] [place] [address] Mar, [facility] [place] [facility] [address] [id number] [place] [address] Feb, [facility] [place] [facility] [address] [id number] [place] [address] Feb, [facility] [place] [facility] [address] [id number] [place] [address] Feb, [facility] [place] [facility] [address] [id number] [place] [address] Feb, [facility] [place] [facility] [address] [id number] [place] [address] Jan, [facility] [place] [facility] [address] [id number] [place] [address] Jan, [facility] [place] [facility] [address] [id number] [place] [address] 24 Jan, 2012 [facility] [place] [facility] [address] [id number] [place] [address] 10 Jan, 2012 [facility] [place] [facility] [address] [id number] [place] [address] Dec, [facility] [place] [facility] [address] [id number] [place] [address] Dec, [facility] [place] [facility] [address] [id number] [place] [address] Nov, [facility] [place] [facility] [address] [id number] [place] [address] Oct, [facility] [place] [facility] [address] [id number] [place] [address] Oct, [facility] [place] [facility] [address] [id number] [place] [address] Oct, [facility] [place] [facility] [address] [id number] [place] [address] September, [facility] [place] [facility] [address] [id number] [place] [address] September, [facility] [place] [facility] [address] [id number] [place] [address] September, [facility] [place] [facility] [address] [id number] [place] [address] September, [facility] [place] [facility] [address] [id number] [place] [address] September, [facility] [place] [facility] [address] [id number] [place] [address] September, [facility] [place] [facility] [address] [id number] [place] [address] September, [facility] [place] [facility] [address] [id number] [place] [address] Jul, [facility] [place] [facility] [address] [id number] [place] [address] Jul, [facility] [place] [facility] [address] [id number] [place] [address] Jun, [facility] [place] [facility] [address] [id number] [place] [address] Jun, [facility] [place] [facility] [address] [id number] [place] [address] Jun, [facility] [place] [facility] [address] [id number] [place] [address] May, [facility] [place] [facility] [id number] [address] Mar, [facility] [id number] [address] Mar, [facility] [id number] [address] Mar, [facility] [id number] [address] Feb, [facility] [id number] [place] [address] Feb, [facility] [id number] [place] [address] Dec, [facility] [id number] [place] [address] May, [facility] [id number] [place] [address] Apr, [facility] [id number] [address] Apr, [facility] [id number] [place] [address] Apr, [facility] [id number] [address] Apr, [facility] [id number] [address] Feb, [facility] [id number] [address] Oct, IMMUNIZATIONS Vaccine Route Administration Date Status B12, VITAMIN (UP TO 1000 MCG) IM Intramuscular May 17, 2017 Administered SOCIAL HISTORY Never Assessed REASON FOR VISIT B12 injection----DBennettRN PLAN OF CARE VITAL SIGNS MEDICATIONS Unknown Medications RESULTS No Results PROCEDURES Procedure Date Ordered Result Body Site B12, VITAMIN (UP TO 1000 MCG) May 17, 2017 THER/PROPH/DIAG INJ, SC/IM May 17, 2017 INSTRUCTIONS MEDICATIONS ADMINISTERED No [...]
--- OUTSIDE RECORDS SUMMARY | 2018-12-05 12:23 | XMS REPORT ---
Author Author ERIK SAMAYOA Organization [facility] Address [address] [place] [address] Care Team Providers Care Filler Shredder Machine Name Role Phone ERIK SAMAYOA Unavailable PROBLEMS Type Condition ICD9-CM Code UIL20-PL Code Onset Dates Condition Status SNOMED Code Problem Acute cystitis with hematuria N30.01 Active 97200505 Problem Major depressive disorder, single episode, unspecified F32.9 Active 41678539 Problem Congestive heart failure, unspecified congestive heart failure chronicity, unspecified congestive heart failure type I50.9 Active 88452345 Problem Chronic fatigue, unspecified R53.82 Active 443235455 Problem Mood disorder F39 Active 46247863 Problem Anticoagulant long-term use Z79.01 Active 029926041 Problem PVD (peripheral vascular disease) I73.9 Active 666887518 Problem Amput leg, unil NOS-comp S88.919A Active 65519769 ALLERGIES No Information ENCOUNTERS Encounter Location Date Diagnosis [address] [address] Jul, Vitamin B 12 deficiency E53.[address] [address] Jul, Anticoagulant long-term use Z79.[address] [address] Jun, Chronic fatigue, unspecified R53.[address] [address] Jun, Anticoagulant long-term use Z79.[address] [address] May, Flu-like symptoms R68.89 and Influenza A J10.1 [place] [id number] [place] [address] May, [place] [id number] [place] [address] May, Chronic fatigue, unspecified R53.82 [facility] [id number] [place] [address] May, Anticoagulant long-term use Z79.01 [place] [id number] [place] [address] Apr, Medicare welcome exam Z00.00 ; Anticoagulant long-term use Z79.01 ; Medicare annual wellness visit, initial Z00.00 ; Medicare annual wellness visit, subsequent Z00.00 and Chronic fatigue, unspecified R53.82 [place] [id number] [place] [address] Mar, Chronic fatigue, unspecified R53.82 [place] [id number] [place] [address] Mar, Anticoagulant long-term use Z79.01 [place] [id number] [place] [address] Mar, Anticoagulant long-term use Z79.01 and Hematuria R31.9 [place] [id number] [place] [address] Mar, Hematuria R31.9 [place] [id number] [place] [address] Feb, Anticoagulant long-term use Z79.01 [place] [id number] [place] [address] Feb, Anticoagulant long-term use Z79.01 [place] [id number] [place] [address] Feb, Anticoagulant long-term use Z79.01 [place] [id number] [place] [address] Feb, Chronic fatigue, unspecified R53.82 [facility] [address] [address] Feb, Anticoagulant long-term use Z79.01 [facility] [address] [address] Feb, Congestive heart failure, unspecified congestive heart failure chronicity, unspecified congestive heart failure type I50.9 [facility] [id number] [place] [address] Feb, Congestive heart failure, unspecified congestive heart failure chronicity, unspecified congestive heart failure type I50.9 [place] [id number] [place] [address] Feb, [place] [id number] [place] [address] Jan, Anticoagulant long-term use Z79.01 [facility] [id number] [place] [address] Jan, [place] [id number] [place] [address] Jan, Anticoagulant long-term use Z79.01 and Hematuria R31.9 [facility] [id number] [place] [address] Jan, Anticoagulant long-term use Z79.01 [facility] [id number] [place] [address] Jan, Chronic fatigue, unspecified R53.82 [place] [id number] [place] [address] Jan, Anticoagulant long-term use Z79.01 [facility] [address], [place] [address] Dec, Chronic fatigue, unspecified R53.82 [place] [id number] [place] [address] Dec, [facility] [id number] [place] [address] Dec, Chronic fatigue, unspecified R53.82 and Encounter for therapeutic drug level monitoring Z51.81 [facility] [id number] [place] [address] Nov, Encounter for therapeutic drug level monitoring Z51.81 [place] [id number] [place] [address] Nov, Hematuria R31.9 [place] [id number] [place] [address] Nov, Hematuria R31.9 ; Anticoagulant long-term use Z79.01 and PVD (peripheral vascular disease) I73.9 [place] [id number] [place] [address] Nov, Anticoagulant long-term use Z79.01 [facility] [id number] [place] [address] Nov, Anticoagulant long-term use Z79.01 [place] [id number] [place] [address] Nov, [facility] [id number] [place] [address] Nov, Hematuria R31.9 and Acute cystitis with hematuria N30.01 [facility] [id number] [place] [id number] Oct, [facility] [id number] [place] [address] Oct, [facility] [id number] [place] [address] Oct, Hematuria R31.9 [facility] [id number] [place] [address] Oct, Hematuria R31.9 [place] [id number] [place] [address] Oct, Anticoagulant long-term use Z79.01 [place] [id number] [place] [address] Oct, Anticoagulant long-term use Z79.01 [place] [id number] [place] [address] Oct, [place] [address] [address] September, PVD (peripheral vascular disease) I73.9 ; Amput leg, unil NOS-comp S88.919A ; Acute cystitis without hematuria N30.00 ; Anticoagulant long-term use Z79.01 and Hypokalemia E87.6 [place] [id number] [place] [address] Aug, Anticoagulant long-term use Z79.01 and Bronchitis J40 [place] [address] [place] [address] Jul, [place] [address] [address] Jul, Anticoagulant long-term use Z79.01 and Mood disorder F39 [place] [id number] [place] [address] Jul, [place] [address] [address] May, [place] [id number] [place] [address] May, Hypokalemia E87.6 [place] [address] [place] [address] May, Mood disorder F39 [place] [address] [place] [address] May, Anticoagulant long-term use Z79.01 [facility] [id number] [place] [address] Apr, Anticoagulant long-term use Z79.01 [facility] [id number] [place] [address] Apr, Anticoagulant long-term use Z79.01 [facility] [id number] [place] [address] Apr, [facility] [id number] [place] [address] Apr, Anticoagulant long-term use Z79.01 [facility] [id number] [place] [address] Apr, Anticoagulant long-term use Z79.01 [facility] [id number] [place] [address] Apr, Anticoagulant long-term use Z79.01 [facility] [id number] [place] [address] Mar, [facility] [id number] [place] [address] Mar, [facility] [id number] [place] [address] Mar, Anticoagulant long-term use Z79.01 [facility] [id number] [place] [address] Feb, [facility] [id number] [place] [address] Feb, [facility] [address] [address] Feb, Anticoagulant long-term use Z79.01 [facility] [id number] [place] [address] Feb, Anticoagulant long-term use Z79.01 [facility] [id number] [place] [address] Jan, [facility] [address] [address] Jan, Anticoagulant long-term use Z79.01 [facility] [id number] [place] [address] Jan, Anticoagulant long-term use Z79.01 [facility] [address] [address] Dec, Anticoagulant long-term use Z79.01 [facility] [address] [address] Dec, Anticoagulant long-term use Z79.01 [facility] [address] [address] Dec, Anticoagulant long-term use Z79.01 and Mood disorder F39 [facility] [id number] [place] [address] Dec, [facility] [address] [address] Nov, [facility] [id number] [place] [address] Nov, Anticoagulant long-term use Z79.01 [facility] [id number] [place] [address] Nov, Anticoagulant long-term use Z79.01 [facility] [id number] [place] [address] September, Anticoagulant long-term use Z79.01 [facility] [id number] [place] [address] Jul, Anticoagulant long-term use Z79.01 [facility] [id number] [place] [address] May, Anticoagulant long-term use Z79.01 [facility] [id number] [place] [address] May, Anticoagulant long-term use Z79.01 [facility] [address] [place] [address] May, Anticoagulant long-term use Z79.01 [facility] [address] [address] May, Anticoagulant long-term use Z79.01 [place] [address] [address] May, [place] [address] [address] May, Congestive heart failure, unspecified congestive heart failure chronicity, unspecified congestive heart failure type I50.9 and Pulmonary congestion R09.89 [place] [address] [address] Apr, Cough R05 ; Congestive heart failure, unspecified congestive heart failure chronicity, unspecified congestive heart failure type I50.9 and Pulmonary congestion R09.89 [place] [address] [address] Mar, Hematuria R31.9 [place] [address] [address] Mar, [place] [address] [address] Mar, Anticoagulant long-term use Z79.01 [place] [address] [address] Mar, [place] [address] [address] Mar, Hematuria R31.9 and Infective urethritis N34.2 [place] [address] [address] Mar, Anticoagulant long-term use Z79.01 [facility] [address] [facility] [id number] [address] Mar, Anticoagulant long-term use Z79.01 [facility] [address] [facility] [id number], [place] [address] Mar, [facility] [address], [place] [address] Mar, Anticoagulant long-term use Z79.01 [facility] [address] [facility] [id number], [place] [address] Feb, Peristomal skin breakdown L98.499 [facility] [address], [place] [address] Feb, [facility] [address], [place] [address] Feb, UTI (urinary tract infection) N39.0 [facility] [address] [place] [id number], [place] [address] Jan, [facility] [id number] [place] [address] Dec, High risk medication use V58.69 [facility] [id number], [place] [address] Nov, High risk medication use V58.69 [place] [id number], [place] [address] Nov, [facility] [id number], [place] [address] Nov, UTI (lower urinary tract infection) 599.0 ; URI, acute 465.9 ; Insomnia 780.52 ; Anxiety 300.00 and Lower limb amputation, unspecified level V49.70 [facility] [id number], [place] [address] Oct, UTI (lower urinary tract infection) 599.0 ; URI, acute 465.9 ; Insomnia 780.52 ; Anxiety 300.00 and Lower limb amputation, unspecified level V49.70 [facility] [id number] [address] 14 Aug, 2014 [facility] [id number] [address] Aug, [facility] [id number] [place] [address] Jul, [facility] [id number] [place] [address] Jul, [facility] [id number] [place] [address] Jun, [facility] [id number] [place] [address] Jun, [facility] [address] [place] [address] Mar, [facility] [address], [place] [address] Mar, [facility] [address], [place] [address] Mar, [facility] [address], [place] [address] Mar, [facility] [address], [place] [address] Mar, [facility] [address], [place] [address] Feb, [facility] [id number] [address] Feb, [facility] [address], [place] [address] Feb, [facility] [id number] [place] [address] Feb, [facility] [place] [facility] [address] [id number] [place] [address] Feb, 2013 [facility] [place] [facility] [address] [id number] [place] [address] Feb, [facility] [place] [facility] [address] [id number] [place] [address] Feb, [facility] [place] [facility] [address] [id number] [place] [address] Feb, [facility] [place] [facility] [address] [id number] [place] [address] Feb, [facility] [place] [facility] [address] [id number] [place] [address] Feb, [facility] [place] [facility] [address] [id number] [place] [address] Feb, [facility] [place] [facility] [address] [id number] [place] [address] Feb, [facility] [place] [facility] [address] [id number] [place] [address] Feb, [facility] [place] [facility] [address] [id number] [place] [address] Feb, [facility] [place] [facility] [address] [id number], [place] [address] Feb, [facility] [place] [facility] [address] [id number], [place] [address] Feb, [facility] [place] [facility] [address] [id number] [place] [address] 28 Jan, 2014 [facility] [place] [facility] [address] [id number] [place] [address] Jan, [facility] [place] [facility] [address] [id number] [place] [address] Jan, [facility] [place] [facility] [address] [id number] [place] [address] Jan, [facility] [place] [facility] [address] [id number] [place] [address] Jan, [facility] [place] [facility] [address] [id number] [place] [address] Nov, [facility] [place] [facility] [address] [id number] [place] [address] Nov, [facility] [place] [facility] [address] [id number] [place] [address] Nov, [facility] [place] [facility] [address] [id number] [place] [address] Nov, [facility] [place] [facility] [address] [id number] [place] [address] Nov, [facility] [place] [facility] [address] [id number] [place] [address] Nov, [facility] [place] [facility] [address] [id number] [place] [address] Oct, [facility] [place] [facility] [address] [id number] [place] [address] Oct, [facility] [place] [facility] [address] [id number] [place] [address] Oct, [facility] [place] [facility] [address] [id number] [place] [address] Oct, [facility] [place] [facility] [address] [id number] [place] [address] Oct, [facility] [place] [facility] [address] [id number] [place] [address] Oct, [facility] [place] [facility] [address] [id number] [place] [address] Oct, [facility] [place] [facility] [address] [id number] [place] [address] September, [facility] [place] [facility] [address] [id number] [place] [address] September, [facility] [place] [facility] [address] [id number] [place] [address] September, [facility] [place] [facility] [address] [id number] [place] [address] September, [facility] [place] [facility] [address] [id number] [place] [address] September, [facility] [place] [facility] [address] [id number] [place] [address] September, [facility] [place] [facility] [address] [id number] [place] [address] September, [facility] [place] [facility] [address] [id number] [place] [address] September, [facility] [place] [facility] [address] [id number] [place] [address] Aug, [facility] [place] [facility] [address] [id number] [place] [address] Aug, [facility] [place] [facility] [address] [id number] [place] [address] Aug, [facility] [place] [facility] [address] [id number] [place] [address] Aug, [facility] [place] [facility] [address] [id number] [place] [address] Jul, [facility] [place] [facility] [address] [id number] [place] [address] Jul, [facility] [place] [facility] [address] [id number] [place] [address] Jun, [facility] [place] [facility] [address] [id number] [place] [address] Jun, [facility] [place] [facility] [address] [id number] [place] [address] Jun, [facility] [place] [facility] [address] [id number] [place] [address] Jun, [facility] [place] [facility] [address] [id number] [place] [address] Jun, [facility] [place] [facility] [address] [id number] [place] [address] Jun, [facility] [place] [facility] [address] [id number] [place] [address] May, [facility] [place] [facility] [address] [id number] [place] [address] May, [facility] [place] [facility] [address] [id number] [place] [address] May, [facility] [place] [facility] [address] [id number] [place] [address] May, [facility] [place] [facility] [address] [id number] [place] [address] May, [facility] [place] [facility] [address] [id number] [place] [address] May, [facility] [place] [facility] [address] [id number] [place] [address] Feb, [facility] [place] [facility] [address] [id number] [place] [address] Feb, [facility] [place] [facility] [address] [id number] [place] [address] Feb, [facility] [place] [facility] [address] [id number] [place] [address] Feb, [facility] [place] [facility] [address] [id number] [place] [address] Jan, [facility] [place] [facility] [address] [id number] [place] [address] Jan, [facility] [address] [id number] [place] [address] Jan, [facility] [place] [facility] [address] [id number] [place] [address] Dec, [facility] [place] [facility] [address] [id number] [place] [address] Nov, [facility] [place] [facility] [address] [id number] [place] [address] Nov, [facility] [address] [id number] [place] [address] Nov, [facility] [place] [facility] [address] [id number] [place] [address] Nov, [facility] [place] [facility] [address] [id number] [place] [address] Nov, [facility] [place] [facility] [address] [id number] [place] [address] Oct, [facility] [place] [facility] [address] [id number] [place] [address] September, [facility] [place] [facility] [address] [id number] [place] [address] September, [facility] [place] [facility] [address] [id number] [place] [address] Aug, [facility] [place] [facility] [address] [id number] [place] [address] Aug, [facility] [place] [facility] [address] [id number] [place] [address] Jul, [facility] [place] [facility] [address] [id number] [place] [address] Jul, [facility] [place] [facility] [address] [id number] [place] [address] Jul, [facility] [place] [facility] [address] [id number] [place] [address] Jul, [facility] [address] [id number] [place] [address] Jun, [facility] [place] [facility] [address] [id number] [place] [address] Jun, [facility] [address] [id number] [place] [address] Jun, [facility] [place] [facility] [address] [id number] [place] [address] May, [facility] [address] [id number] [place] [address] May, [facility] [place] [facility] [address] [id number] [place] [address] May, [facility] [address] [id number] [place] [address] May, [facility] [address] [id number] [place] [address] Apr, [facility] [place] [facility] [address] [id number] [place] [address] Apr, [facility] [address] [id number] [place] [address] Apr, [facility] [place] [facility] [address] [id number] [place] [address] Apr, [facility] [place] [facility] [address] [id number] [place] [address] Apr, [facility] [place] [facility] [address] [id number] [place] [address] Apr, [facility] [place] [facility] [address] [id number] [place] [address] Mar, [facility] [address] [id number] [place] [address] Mar, [facility] [place] [facility] [address] [id number] [place] [address] Mar, [facility] [place] [facility] [address] [id number] [place] [address] Mar, [facility] [place] [facility] [address] [id number] [place] [address] Mar, [facility] [place] [facility] [address] [id number] [place] [address] Mar, [facility] [place] [facility] [address] [id number] [place] [address] Feb, [facility] [place] [facility] [address] [id number] [place] [address] Feb, [facility] [place] [facility] [address] [id number] [place] [address] Feb, [facility] [place] [facility] [address] [id number] [place] [id number] Feb, [facility] [place] [facility] [address] [id number] [place] [address] Jan, [facility] [place] [facility] [address] [id number] [place] [address] Jan, [facility] [place] [facility] [address] [id number] [place] [address] 24 Jan, 2012 [facility] [place] [facility] [address] [id number] [place] [address] 10 Jan, 2012 [facility] [place] [facility] [address] [id number] [place] [address] Dec, [facility] [place] [facility] [address] [id number] [place] [address] Dec, [facility] [place] [facility] [address] [id number] [place] [address] Nov, [facility] [place] [facility] [address] [id number] [place] [address] Oct, [facility] [place] [facility] [address] [id number] [place] [address] Oct, [facility] [place] [facility] [address] [id number] [place] [address] Oct, [facility] [place] [facility] [address] [id number] [place] [address] September, [facility] [place] [facility] [address] [id number] [place] [address] September, [facility] [place] [facility] [address] [id number] [place] [address] September, [facility] [place] [facility] [address] [id number] [place] [address] September, [facility] [place] [facility] [address] [id number] [place] [address] September, [facility] [place] [facility] [address] [id number] [place] [address] September, [facility] [place] [facility] [address] [id number] [place] [address] September, [facility] [place] [facility] [address] [id number] [place] [address] Jul, [facility] [place] [facility] [address] [id number] [place] [address] Jul, [facility] [place] [facility] [address] [id number] [place] [address] Jun, [facility] [place] [facility] [address] [id number] [place] [address] Jun, [facility] [place] [facility] [address] [id number] [place] [address] Jun, [facility] [place] [facility] [address] [id number] [place] [address] May, [facility] [place] [facility] [address] [place] [address] Mar, [facility] [address] [place] [address] Mar, [facility] [address] [place] [address] Mar, [facility] [address] [place] [address] Feb, [facility] [address] [place] [address] Feb, [facility] [id number] [place] [address] Dec, [facility] [address] [place] [address] May, [facility] [id number] [place] [address] Apr, [facility] [address] [place] [address] Apr, [facility] [address] [place] [address] Apr, [facility] [address] [place] [address] Apr, [facility] [address] [place] [address] Feb, [facility] [id number] [address] Oct, IMMUNIZATIONS No Known Immunizations SOCIAL HISTORY Never Assessed REASON FOR VISIT Lab results PLAN OF CARE VITAL SIGNS MEDICATIONS Medication Instructions Dosage Frequency Start Date End Date Duration Status Macrobid 100 MG Orally every 12 hrs 1 capsule with food 12h Oct, Oct, 7 day(s) Active RESULTS No Results PROCEDURES No [...]
--- OUTSIDE RECORDS SUMMARY | 2018-12-05 12:23 | XMS REPORT ---
Author Author ERIK SAMAYOA 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 Active 41393126 Problem Mood disorder F39 Active 88345943 ALLERGIES Substance Reaction Event Type Date Status Penicillin V Potassium Unknown Drug Allergy May, Active Morphine Sulfate Unknown Drug Allergy May, Active Codeine Sulfate Unknown Drug Allergy May, Active Aspir-81 Unknown Drug Allergy May, Active SOCIAL HISTORY No smoking Hx information available PLAN OF CARE VITAL SIGNS Height 62 in 2016-05-30 Temperature 97.6 degrees Fahrenheit 2016-05-30 Heart Rate 46 bpm 2016-05-30 Respiratory Rate 18 2016-05-30 Oximetry 92 % 2016-05-30 Blood pressure systolic 122 mmHg 2016-05-30 Blood pressure diastolic 62 mmHg 2016-05-30 MEDICATIONS Medication Instructions Dosage Frequency Start Date End Date Duration Status Amlodipine Besylate 10MG TAKE 1 TABLET ONCE DAILY Active Vitamin D3 1,000 unit 2 capsule by Oral route 1 time per day Feb, Active Cetirizine HCl 10 TAKE ONE TABLET BY MOUTH DAILY 30 Active Lisinopril 10MG TAKE 1 TABLET DAILY Active Doxycycline Hyclate 100 mg Orally every 12 hrs 1 capsule 12h May, Jun, 10 days Active Metoprolol Succinate ER 50MG TAKE 1 TABLET DAILY Active Coumadin 2 mg Orally Once a day 1 tablet 24h 30 Active Simvastatin 20 MG 2 TABLET BY ORAL ROUTE 1 TIME PER DAY 180 Active Valium 2 MG Orally Once a day 1 tablet as needed 24h Oct, Active Folic Acid 1 TAKE ONE TABLET BY MOUTH DAILY 30 Active Potassium 75 MG Orally Once a day 1 tablet 24h Active Paroxetine HCl 10 MG Orally Once a day 1 tablet in the morning 24h May, 30 day(s) Active RESULTS Name Result Date Reference Range TSH 2016-05-30 TSH 1.470 0.450-4.500 CBC 2016-05-30 WBC 7.5 3.4-10.8 RBC 4.30 3.77-5.28 Hemoglobin 13.8 11.1-15.9 Hematocrit 41.8 34.0-46.6 MCV 97 79-97 MCH 32.1 26.6-33.0 MCHC 33.0 31.5-35.7 RDW 14.3 12.3-15.4 Platelets 204 150-379 Neutrophils 49 Lymphs 37 Monocytes 8 Eos 5 Basos 1 Neutrophils (Absolute) 3.7 1.4-7.0 Lymphs (Absolute) 2.7 0.7-3.1 Monocytes(Absolute) 0.6 0.1-0.9 Eos (Absolute) 0.4 0.0-0.4 Baso (Absolute) 0.0 0.0-0.2 Immature Granulocytes 0 Immature Grans (Abs) 0.0 0.0-0.1 LIPID PANEL 2016-05-30 Cholesterol, Total 116 100-199 Triglycerides 125 0-149 HDL Cholesterol 62 >39 VLDL Cholesterol Ko 25 5-40 LDL Cholesterol Calc 29 0-99 CMP 2016-05-30 Glucose, Serum 89 65-99 BUN 9 8-27 Creatinine, Serum 1.04 0.57-1.00 eGFR If NonAfricn Am 55 >59 eGFR If Africn Am 64 >59 BUN/Creatinine Ratio 9 11-26 Sodium, Serum 143 134-144 Potassium, Serum 3.2 3.5-5.2 Chloride, Serum 104 96-106 Carbon Dioxide, Total 23 18-29 Calcium, Serum 9.0 8.7-10.3 Protein, Total, Serum 6.1 6.0-8.5 Albumin, Serum 3.5 3.6-4.8 Globulin, Total 2.6 1.5-4.5 A/G Ratio 1.3 1.1-2.5 Bilirubin, Total 0.5 0.0-1.2 Alkaline Phosphatase, S 68 39-117 AST (SGOT) 12 0-40 ALT (SGPT) 6 0-32 VITAMIN D, 25-H 2016-05-30 Vitamin D, 25-Hydroxy 34.5 30.0-100.0 INR (IN HOUSE) 2016-05-30 INR 2.9 1.10 - 3.30 PREVIOUS INR 2.7 CURRENT COUMADIN DOSE See internal notes NEW COUMADIN DOSE Lot # [id number] Exp date 03/2017 PROCEDURES Procedure Date Ordered Related Diagnosis Body Site MEASURE BLOOD OXYGEN LEVEL May 30, 2016 [facility] VISIT ESTABLISHED PATIENT May 30, 2016 LAB NOT BILLED BY [facility] May 30, 2016 Office Visit, Est Pt., Level 3 May 30, 2016 VENIPUNCT, ROUTINE* May 30, 2016 PROTHROMBIN TIME May 30, 2016 IMMUNIZATIONS No Known Immunizations
--- OUTSIDE RECORDS SUMMARY | 2018-12-05 12:24 | XMS REPORT ---
Author Author MONIKA SALAZAR Organization [facility] Address [address] [place] [address] Care Team Providers Care Lab Courier Name Role Phone MONIKA SALAZAR Unavailable PROBLEMS Type Condition ICD9-CM Code OMR61-SE Code Onset Dates Condition Status SNOMED Code Problem Acute cystitis with hematuria N30.01 Active 61433930 Problem Major depressive disorder, single episode, unspecified F32.9 Active 94491404 Problem Congestive heart failure, unspecified congestive heart failure chronicity, unspecified congestive heart failure type I50.9 Active 40143771 Problem Chronic fatigue, unspecified R53.82 Active 326857432 Problem Mood disorder F39 Active 66711592 Problem Anticoagulant long-term use Z79.01 Active 587095005 Problem PVD (peripheral vascular disease) I73.9 Active 804749695 Problem Amput leg, unil NOS-comp S88.919A Active 46412100 ALLERGIES No Information ENCOUNTERS Encounter Location Date Diagnosis [place] [address] [address] Jul, Vitamin B 12 deficiency E53.8 [place] [address] [address] Jul, Anticoagulant long-term use Z79.01 [place] [address] [place] [id number] [place] [address] Jun, Chronic fatigue, unspecified R53.82 [place] [address] [address] Jun, Anticoagulant long-term use Z79.01 [place] [address] [place] [id number] [place] [address] May, Flu-like symptoms R68.89 and Influenza A J10.1 [place] [address] [place] [id number] [place] [address] May, [place] [address] [place] [id number] [place] [address] May, Chronic fatigue, unspecified R53.82 [place] [address] [place] [id number] [place] [address] May, Anticoagulant long-term use Z79.01 [place] [address] [place] [id number] [place] [address] Apr, Medicare welcome exam Z00.00 ; Anticoagulant long-term use Z79.01 ; Medicare annual wellness visit, initial Z00.00 ; Medicare annual wellness visit, subsequent Z00.00 and Chronic fatigue, unspecified R53.82 [place] [address] [place] [id number] [place] [address] Mar, Chronic fatigue, unspecified R53.82 [place] [address] [place] [id number] [place] [address] 07 Mar, 2017 Anticoagulant long-term use Z79.01 [place] [address] [place] [id number] [place] [address] 07 Mar, 2017 Anticoagulant long-term use Z79.01 and Hematuria R31.9 [place] [address] [place] [id number] [place] [address] Mar, Hematuria R31.9 [place] [address] [place] [id number] [place] [address] Feb, Anticoagulant long-term use Z79.01 [place] [address] [place] [id number] [place] [address] Feb, Anticoagulant long-term use Z79.01 [place] [address] [place] [id number] [place] [address] Feb, Anticoagulant long-term use Z79.01 [place] [address] [place] [id number] [place] [address] Feb, Chronic fatigue, unspecified R53.82 [facility] [id number] [place] [address] Feb, Anticoagulant long-term use Z79.01 [facility] [id number] [place] [address] Feb, Congestive heart failure, unspecified congestive heart failure chronicity, unspecified congestive heart failure type I50.9 [facility] [address] [place] [id number] [place] [address] Feb, Congestive heart failure, unspecified congestive heart failure chronicity, unspecified congestive heart failure type I50.9 [facility] [address] [place] [id number] [place] [address] Feb, [facility] [address] [place] [id number] [place] [address] Jan, Anticoagulant long-term use Z79.01 [facility] [address] [place] [id number] [place] [address] Jan, [facility] [address] [place] [id number] [place] [address] Jan, Anticoagulant long-term use Z79.01 and Hematuria R31.9 [facility] [id number] [place] [address] Jan, Anticoagulant long-term use Z79.01 [facility] [id number] [place] [address] Jan, Chronic fatigue, unspecified R53.82 [facility] [address] [place] [id number] [place] [address] Jan, Anticoagulant long-term use Z79.01 [facility] [address] [address] Dec, Chronic fatigue, unspecified R53.82 [facility] [address] [place] [id number] [address] Dec, [facility] [address] [place] [id number] [place] [address] Dec, Chronic fatigue, unspecified R53.82 and Encounter for therapeutic drug level monitoring Z51.81 [facility] [address] [place] [id number] [place] [address] Nov, Encounter for therapeutic drug level monitoring Z51.81 [facility] [address] [place] [id number] [place] [address] Nov, Hematuria R31.9 [place] [address] [address] Nov, Hematuria R31.9 ; Anticoagulant long-term use Z79.01 and PVD (peripheral vascular disease) I73.9 [place] [address] [place] [id number] [place] [address] Nov, Anticoagulant long-term use Z79.01 [facility] [address] [place] [id number] [place] [address] Nov, Anticoagulant long-term use Z79.01 [place] [address] [place] [id number] [place] [address] Nov, [facility] [id number] [place] [address] Nov, Hematuria R31.9 and Acute cystitis with hematuria N30.01 [facility] [address] [place] [id number] [place] [id number] Oct, [place] [address] [place] [id number] [place] [address] Oct, [facility] [address] [place] [id number] [place] [address] Oct, Hematuria R31.9 [facility] [address] [place] [id number] [place] [address] Oct, Hematuria R31.9 [place] [address] [place] [id number] [place] [address] Oct, Anticoagulant long-term use Z79.01 [place] [address] [place] [id number] [place] [address] Oct, Anticoagulant long-term use Z79.01 [place] [address] [address] Oct, [place] [address] [address] September, PVD (peripheral vascular disease) I73.9 ; Amput leg, unil NOS-comp S88.919A ; Acute cystitis without hematuria N30.00 ; Anticoagulant long-term use Z79.01 and Hypokalemia E87.6 [place] [address] [address] Aug, Anticoagulant long-term use Z79.01 and Bronchitis J40 [place] [address] [address] Jul, [place] [address] [address] Jul, Anticoagulant long-term use Z79.01 and Mood disorder F39 [place] [address] [place] [id number] [place] [address] Jul, [place] [address] [address] May, [place] [address] [address] May, Hypokalemia E87.6 [place] [address] [place] [id number] [place] [address] May, Mood disorder F39 [place] [address] [address] May, Anticoagulant long-term use Z79.01 [facility] [address] [place] [id number] [place] [address] Apr, Anticoagulant long-term use Z79.01 [facility] [address] [place] [id number] [place] [address] Apr, Anticoagulant long-term use Z79.01 [facility] [address] [address] Apr, [facility] [address] [place] [id number] [place] [address] Apr, Anticoagulant long-term use Z79.01 [facility] [address] [place] [id number] [place] [address] Apr, Anticoagulant long-term use Z79.01 [facility] [address] [place] [id number] [place] [address] Apr, Anticoagulant long-term use Z79.01 [facility] [address] [place] [id number] [place] [address] Mar, [facility] [address] [place] [id number] [place] [address] Mar, [facility] [address] [place] [id number] [place] [address] Mar, Anticoagulant long-term use Z79.01 [facility] [address] [place] [id number] [place] [address] Feb, [facility] [address] [place] [id number] [place] [address] Feb, [facility] [address] [place] [id number] [place] [address] Feb, Anticoagulant long-term use Z79.01 [facility] [address] [place] [id number] [place] [address] Feb, Anticoagulant long-term use Z79.01 [facility] [address] [place] [id number] [place] [address] Jan, [facility] [address] [address] Jan, Anticoagulant long-term use Z79.01 [facility] [address] [address] Jan, Anticoagulant long-term use Z79.01 [facility] [address] [place] [id number] [place] [address] Dec, Anticoagulant long-term use Z79.01 [facility] [address] [address] Dec, Anticoagulant long-term use Z79.01 [facility] [address] [address] Dec, Anticoagulant long-term use Z79.01 and Mood disorder F39 [facility] [address] [place] [id number] [place] [address] Dec, [facility] [address] [address] Nov, [facility] [address] [place] [id number] [place] [address] Nov, Anticoagulant long-term use Z79.01 [facility] [address] [place] [id number] [place] [address] Nov, Anticoagulant long-term use Z79.01 [facility] [address] [place] [id number] [place] [address] September, Anticoagulant long-term use Z79.01 [facility] [address] [place] [id number] [place] [address] Jul, Anticoagulant long-term use Z79.01 [facility] [address] [place] [id number] [place] [address] May, Anticoagulant long-term use Z79.01 [facility] [address] [place] [id number] [place] [address] May, Anticoagulant long-term use Z79.01 [facility] [address] [place] [id number] [place] [address] May, Anticoagulant long-term use Z79.01 [place] [address] [address] May, Anticoagulant long-term use Z79.01 [place] [address] [address] May, [place] [address] [address] May, Congestive heart failure, unspecified congestive heart failure chronicity, unspecified congestive heart failure type I50.9 and Pulmonary congestion R09.89 [place] [address] [address] Apr, Cough R05 ; Congestive heart failure, unspecified congestive heart failure chronicity, unspecified congestive heart failure type I50.9 and Pulmonary congestion R09.89 [place] [address] [address] Mar, Hematuria R31.9 [place] [address] [address] Mar, [place] [address] [address] Mar, Anticoagulant long-term use Z79.01 [place] [address] [address] Mar, [place] [address] [address] Mar, Hematuria R31.9 and Infective urethritis N34.2 [place] [address] [address] Mar, Anticoagulant long-term use Z79.01 [facility] [address] [place] [id number] [address] Mar, Anticoagulant long-term use Z79.01 [facility] [address] [place] [id number] [address] Mar, [facility] [address] [place] [address] Mar, Anticoagulant long-term use Z79.01 [facility] [address] [place] [address] Feb, Peristomal skin breakdown L98.499 [facility] [address] [place] [address] Feb, [facility] [address] [place] [address] Feb, UTI (urinary tract infection) N39.0 [facility] [address] [place] [address] Jan, [facility] [address] [place] [address] Dec, High risk medication use V58.69 [place] [address] [place] [id number] [address] Nov, High risk medication use V58.69 [place] [address] [place] [id number] [place] [address] Nov, [facility] [address] [place] [id number] [address] Nov, UTI (lower urinary tract infection) 599.0 ; URI, acute 465.9 ; Insomnia 780.52 ; Anxiety 300.00 and Lower limb amputation, unspecified level V49.70 [facility] [address] [place] [id number] [address] Oct, UTI (lower urinary tract infection) 599.0 ; URI, acute 465.9 ; Insomnia 780.52 ; Anxiety 300.00 and Lower limb amputation, unspecified level V49.70 [facility] [address] [facility] [id number] [address] Aug, [facility] [address] [address] Aug, [facility] [address] [facility] [id number] [place] [address] Jul, [facility] [address] [facility] [id number] [address] Jul, [facility] [address] [place] [id number] [place] [address] Jun, [facility] [address] [place] [id number] [address] Jun, [facility] [address] [address] Mar, [facility] [address] [address] Mar, [facility] [address] [address] Mar, [facility] [address] [address] Mar, [facility] [address] [facility] [id number] [address] Mar, [facility] [address] [place] [id number] [address] Feb, [facility] [address] [place] [id number] [address] Feb, [facility] [address] [place] [id number] [address] Feb, [facility] [address] [facility] [id number] [place] [address] 27 Feb, 2013 [facility] [place] [facility] [address] [id number] [place] [address] Feb, 2013 [facility] [place] [facility] [address] [id number] [place] [address] Feb, 2013 [facility] [place] [facility] [address] [id number] [place] [address] Feb, 2013 [facility] [place] [facility] [address] [id number] [place] [address] Feb, 2013 [facility] [place] [facility] [address] [id number] [place] [address] Feb, [facility] [place] [facility] [address] [id number] [place] [address] Feb, [facility] [place] [facility] [address] [id number] [place] [address] Feb, [facility] [place] [facility] [address] [id number] [place] [address] Feb, [facility] [place] [facility] [address] [id number] [place] [address] Feb, [facility] [place] [facility] [address] [id number] [place] [address] Feb, [facility] [place] [facility] [address] [id number] [place] [address] Feb, [facility] [place] [facility] [address] [id number] [place] [address] Feb, [facility] [place] [facility] [address] [id number] [place] [address] 28 Jan, 2014 [facility] [place] [facility] [address] [id number] [place] [address] Jan, [facility] [place] [facility] [address] [id number] [place] [address] Jan, 2013 [facility] [place] [facility] [address] [id number] [place] [address] Jan, [facility] [place] [facility] [address] [id number] [place] [address] Jan, [facility] [place] [facility] [address] [id number] [place] [address] Nov, [facility] [place] [facility] [address] [id number] [place] [address] Nov, [facility] [place] [facility] [address] [id number] [place] [address] Nov, [facility] [place] [facility] [address] [id number] [place] [address] Nov, [facility] [place] [facility] [address] [id number] [place] [address] Nov, [facility] [place] [facility] [address] [id number] [place] [address] Nov, [facility] [place] [facility] [address] [id number] [place] [address] Oct, [facility] [place] [facility] [address] [id number] [place] [address] Oct, [facility] [place] [facility] [address] [id number] [place] [address] Oct, [facility] [place] [facility] [address] [id number] [place] [address] Oct, [facility] [place] [facility] [address] [id number] [place] [address] Oct, [facility] [place] [facility] [address] [id number] [place] [address] Oct, [facility] [place] [facility] [address] [id number] [place] [address] Oct, [facility] [place] [facility] [address] [id number] [place] [address] September, [facility] [place] [facility] [address] [id number] [place] [address] September, [facility] [place] [facility] [address] [id number] [place] [address] September, [facility] [place] [facility] [address] [id number] [place] [address] September, [facility] [place] [facility] [address] [id number] [place] [address] September, [facility] [place] [facility] [address] [id number] [place] [address] September, [facility] [place] [facility] [address] [id number] [place] [address] September, [facility] [place] [facility] [address] [id number] [place] [address] September, [facility] [place] [facility] [address] [id number] [place] [address] Aug, [facility] [place] [facility] [address] [id number] [place] [address] Aug, [facility] [place] [facility] [address] [id number] [place] [address] Aug, [facility] [place] [facility] [address] [id number] [place] [address] Aug, [facility] [place] [facility] [address] [id number] [place] [address] Jul, [facility] [place] [facility] [address] [id number] [place] [address] Jul, [facility] [place] [facility] [address] [id number] [place] [address] Jun, [facility] [place] [facility] [address] [id number] [place] [address] Jun, [facility] [place] [facility] [address] [id number] [place] [address] Jun, [facility] [place] [facility] [address] [id number] [place] [address] Jun, [facility] [place] [facility] [address] [id number] [place] [address] Jun, [facility] [place] [facility] [address] [id number] [place] [address] Jun, [facility] [place] [facility] [address] [id number] [place] [address] May, [facility] [place] [facility] [address] [id number] [place] [address] May, [facility] [place] [facility] [address] [id number] [place] [address] May, [facility] [place] [facility] [address] [id number] [place] [address] May, [facility] [place] [facility] [address] [id number] [place] [address] May, [facility] [place] [facility] [address] [id number] [place] [address] May, [facility] [place] [facility] [address] [id number] [place] [address] Feb, [facility] [place] [facility] [address] [id number] [place] [address] Feb, [facility] [place] [facility] [address] [id number] [place] [address] Feb, [facility] [place] [facility] [address] [id number] [place] [address] Feb, [facility] [place] [facility] [address] [id number] [place] [address] Jan, [facility] [place] [facility] [address] [id number] [place] [address] Jan, [facility] [address] [id number] [place] [address] Jan, [facility] [place] [facility] [address] [id number] [place] [address] Dec, [facility] [address] [id number] [place] [address] Nov, [facility] [place] [facility] [address] [id number] [place] [address] Nov, [facility] [address] [id number] [place] [address] Nov, [facility] [address] [id number] [place] [address] Nov, [facility] [address] [id number] [place] [address] Nov, [facility] [place] [facility] [address] [id number] [place] [address] Oct, [facility] [address] [id number] [place] [address] September, [facility] [place] [facility] [address] [id number] [place] [address] September, [facility] [address] [address] [id number] [place] [address] Aug, [facility] [place] [facility] [address] [id number] [place] [address] Aug, [facility] [place] [facility] [address] [id number] [place] [address] Jul, [facility] [place] [facility] [address] [id number] [place] [address] Jul, [facility] [place] [facility] [address] [id number] [place] [address] Jul, [facility] [place] [facility] [address] [id number] [place] [address] Jul, [facility] [address] [id number] [place] [address] Jun, [facility] [address] [id number] [place] [address] Jun, [facility] [address] [id number] [place] [address] Jun, [facility] [address] [id number] [place] [address] May, [facility] [address] [id number] [place] [address] May, [facility] [address] [id number] [place] [address] May, [facility] [address] [id number] [place] [address] May, [facility] [address] [id number] [place] [address] Apr, [facility] [address] [id number] [place] [address] Apr, [facility] [address] [id number] [place] [address] Apr, [facility] [address] [id number] [place] [address] Apr, [facility] [address] [id number] [place] [address] Apr, [facility] [place] [facility] [address] [id number] [place] [address] Apr, [facility] [address] [id number] [place] [address] Mar, [facility] [address] [id number] [place] [address] Mar, [facility] [place] [facility] [address] [id number] [place] [address] Mar, [facility] [place] [facility] [address] [id number] [place] [address] Mar, [facility] [place] [facility] [address] [id number] [place] [address] Mar, [facility] [place] [facility] [address] [id number] [place] [address] Mar, [facility] [place] [facility] [address] [id number] [place] [address] Feb, [facility] [place] [facility] [address] [id number] [place] [address] Feb, [facility] [place] [facility] [address] [id number] [place] [address] Feb, [facility] [place] [facility] [address] [id number] [place] [address] Feb, [facility] [place] [facility] [address] [id number] [place] [address] Jan, [facility] [place] [facility] [address] [id number] [place] [address] Jan, [facility] [place] [facility] [address] [id number] [place] [address] 24 Jan, 2012 [facility] [place] [facility] [address] [id number] [address] 10 Jan, 2012 [facility] [place] [facility] [address] [id number] [place] [address] Dec, [facility] [place] [facility] [address] [id number] [place] [address] Dec, [facility] [place] [facility] [address] [facility] [id number] [place] [address] Nov, [facility] [place] [facility] [address] [id number] [place] [address] Oct, [facility] [place] [facility] [address] [id number] [place] [address] Oct, [facility] [place] [facility] [address] [id number] [place] [address] Oct, [facility] [place] [facility] [address] [id number] [place] [address] September, [facility] [place] [facility] [address] [id number] [place] [address] September, [facility] [place] [facility] [address] [id number] [place] [address] September, [facility] [place] [facility] [address] [id number] [place] [address] September, [facility] [place] [facility] [address] [id number] [place] [address] September, [facility] [place] [facility] [address] [id number] [place] [address] September, [facility] [place] [facility] [address] [id number] [place] [address] September, [facility] [place] [facility] [address] [id number] [place] [address] Jul, [facility] [place] [facility] [address] [id number] [place] [address] Jul, [facility] [place] [facility] [address] [id number] [place] [address] Jun, [facility] [place] [facility] [address] [id number] [place] [address] Jun, [facility] [place] [facility] [address] [id number] [place] [address] Jun, [facility] [place] [facility] [address] [id number] [place] [address] May, [facility] [address] [facility] [id number], [place] [address] Mar, [facility] [address] [facility] [id number], [place] [address] Mar, [facility] [address] [facility] [id number], [place] [address] Mar, [facility] [address] [facility] [id number], [place] [address] Feb, [facility] [address] [facility] [id number], [place] [address] Feb, [facility] [address] [facility] [id number], [place] [address] Dec, [facility] [id number], [place] [address] May, [facility] [id number], [place] [address] Apr, [facility] [id number], [place] [address] Apr, [facility] [address] [id number], [place] [address] Apr, [facility] [address] [id number], [place] [address] Apr, [facility] [address] [id number], [place] [address] Feb, [facility] [address] [id number], [place] [address] Oct, IMMUNIZATIONS No Known Immunizations SOCIAL HISTORY Never Assessed REASON FOR VISIT Hospital admit/DC PLAN OF CARE VITAL SIGNS MEDICATIONS Medication Instructions Dosage Frequency Start Date End Date Duration Status Clopidogrel Bisulfate 75 MG Orally Once a day 1 tablet 24h Active Cefuroxime Axetil 500 MG Orally Twice a day 1 tablet 12h Oct, Nov, Active Metoprolol Succinate ER 50MG Orally Once a day 1 tablet 24h Active PredniSONE 20 mg Orally Once a day 2 tabs daily for 3 days then 1 tab daily for 3 days 24h Active Warfarin Sodium 2 MG Orally twice weekly on Mon and Mon 1 tablet Active Simvastatin 20 mg Orally Once a day 2 tablets in the evening 24h Active Amlodipine Besylate 10 MG Orally Once a day 1 tablet 24h Active Folic Acid 1 MG Orally Once a day 1 tablet 24h Active Lisinopril 10 MG Orally Once a day 1 tablet 24h Active Montelukast Sodium 10 MG Orally Once a day 1 tablet in the evening 24h Active Klor-Con M20 20 Orally Once a day 1 tablet with food 24h 30 Active Warfarin Sodium 1 MG Orally 5 times weekly on Monday, Monday, , Monday and Monday 1 tablet Active Paroxetine HCl 10 MG Orally Once a day 1 tablet in the morning 24h Active RESULTS No Results PROCEDURES No [...]
--- OUTSIDE RECORDS SUMMARY | 2018-12-05 12:25 | XMS REPORT ---
Author Author ERIK SAMAYOA Organization [facility] Address [address] [place] [address] Care Team Providers Care Mechanical Ordnance Assembler Name Role Phone ERIK SAMAYOA Unavailable PROBLEMS Type Condition ICD9-CM Code UQU04-JK Code Onset Dates Condition Status SNOMED Code Problem Acute cystitis with hematuria N30.01 Active 42141880 Problem Major depressive disorder, single episode, unspecified F32.9 Active 52575687 Problem Congestive heart failure, unspecified congestive heart failure chronicity, unspecified congestive heart failure type I50.9 Active 49074150 Problem Chronic fatigue, unspecified R53.82 Active 017498780 Problem Mood disorder F39 Active 62235133 Problem Anticoagulant long-term use Z79.01 Active 681998435 Problem PVD (peripheral vascular disease) I73.9 Active 337236100 Problem Amput leg, unil NOS-comp S88.919A Active 06700386 ALLERGIES Substance Reaction Event Type Date Status Penicillin V Potassium Unknown Drug Allergy Nov, Active Morphine Sulfate Unknown Drug Allergy Nov, Active Codeine Sulfate Unknown Drug Allergy Nov, Active Aspir-81 Unknown Drug Allergy Nov, Active ENCOUNTERS Encounter Location Date Diagnosis [place] [id number] [place] [address] Jul, Vitamin B 12 deficiency E53.8 [place] [id number] [place] [address] Jul, Anticoagulant long-term use Z79.01 [place] [address] [place] [id number] [place] [address] Jun, Chronic fatigue, unspecified R53.82 [place] [address] [place] [id number] [place] [address] Jun, Anticoagulant long-term use Z79.01 [place] [address] [place] [id number] [place] [address] May, Flu-like symptoms R68.89 and Influenza A J10.1 [place] [address] [place] [id number] [place] [address] May, [place] [address] [place] [id number] [place] [address] May, Chronic fatigue, unspecified R53.82 [place] [address] [place] [id number] [place] [address] May, Anticoagulant long-term use Z79.01 [place] [address] [place] [id number] [place] [address] Apr, Medicare welcome exam Z00.00 ; Anticoagulant long-term use Z79.01 ; Medicare annual wellness visit, initial Z00.00 ; Medicare annual wellness visit, subsequent Z00.00 and Chronic fatigue, unspecified R53.82 [place] [address] [place] [id number] [place] [address] Mar, Chronic fatigue, unspecified R53.82 [place] [address] [place] [id number] [place] [address] Mar, Anticoagulant long-term use Z79.01 [place] [address] [place] [id number] [place] [address] Mar, Anticoagulant long-term use Z79.01 and Hematuria R31.9 [place] [address] [place] [id number] [place] [address] Mar, Hematuria R31.9 [place] [address] [place] [id number] [place] [address] Feb, Anticoagulant long-term use Z79.01 [place] [address] [place] [id number] [place] [address] Feb, Anticoagulant long-term use Z79.01 [place] [address] [place] [id number] [place] [address] Feb, Anticoagulant long-term use Z79.01 [place] [address] [place] [id number] [place] [address] Feb, Chronic fatigue, unspecified R53.82 [place] [address] [place] [id number] [place] [address] Feb, Anticoagulant long-term use Z79.01 [place] [address] [place] [id number] [place] [address] Feb, Congestive heart failure, unspecified congestive heart failure chronicity, unspecified congestive heart failure type I50.9 [place] [address] [place] [id number] [place] [address] Feb, Congestive heart failure, unspecified congestive heart failure chronicity, unspecified congestive heart failure type I50.9 [place] [address] [place] [id number] [place] [address] Feb, [facility] [address] [place] [id number] [place] [address] Jan, Anticoagulant long-term use Z79.01 [place] [address] [place] [id number] [place] [address] Jan, [place] [address] [place] [id number] [place] [address] Jan, Anticoagulant long-term use Z79.01 and Hematuria R31.9 [facility] [id number] [place] [address] Jan, Anticoagulant long-term use Z79.01 [place] [address] [place] [id number] [place] [address] Jan, Chronic fatigue, unspecified R53.82 [place] [address] [place] [address] Jan, Anticoagulant long-term use Z79.01 [place] [address] [place] [address] [address] Dec, Chronic fatigue, unspecified R53.82 [place] [address] [place] [id number] [place] [address] Dec, [place] [address] [place] [id number] [place] [address] Dec, Chronic fatigue, unspecified R53.82 and Encounter for therapeutic drug level monitoring Z51.81 [place] [address] [place] [id number] [place] [address] Nov, Encounter for therapeutic drug level monitoring Z51.81 [place] [address] [place] [id number] [place] [address] Nov, Hematuria R31.9 [place] [address] [place] [id number] [place] [address] Nov, Hematuria R31.9 ; Anticoagulant long-term use Z79.01 and PVD (peripheral vascular disease) I73.9 [place] [address] [place] [id number] [place] [address] Nov, Anticoagulant long-term use Z79.01 [place] [address] [place] [id number] [place] [address] Nov, Anticoagulant long-term use Z79.01 [place] [id number] [place] [address] Nov, [place] [address] [place] [id number] [place] [address] Nov, Hematuria R31.9 and Acute cystitis with hematuria N30.01 [facility] [address] [place] [id number] [place] [id number] Oct, [place] [address] [place] [id number] [place] [address] Oct, [place] [address] [place] [id number] [place] [address] Oct, Hematuria R31.9 [place] [address] [place] [id number] [place] [address] Oct, Hematuria R31.9 [facility] [address] [address] Oct, Anticoagulant long-term use Z79.01 [place] [address] [address] Oct, Anticoagulant long-term use Z79.01 [place] [address] [place] [id number] [place] [address] Oct, [place] [address] [address] September, PVD (peripheral vascular disease) I73.9 ; Amput leg, unil NOS-comp S88.919A ; Acute cystitis without hematuria N30.00 ; Anticoagulant long-term use Z79.01 and Hypokalemia E87.6 [place] [address] [place] [id number] [place] [address] Aug, Anticoagulant long-term use Z79.01 and Bronchitis J40 [place] [address] [place] [id number] [place] [address] Jul, [place] [address] [place] [id number] [place] [address] Jul, Anticoagulant long-term use Z79.01 and Mood disorder F39 [place] [address] [place] [id number] [place] [address] Jul, [place] [address] [address] May, [place] [address] [place] [id number] [place] [address] May, Hypokalemia E87.6 [place] [address] [address] May, Mood disorder F39 [facility] [address] [place] [id number] [place] [address] May, Anticoagulant long-term use Z79.01 [facility] [address] [place] [id number] [place] [address] Apr, Anticoagulant long-term use Z79.01 [facility] [address] [address] Apr, Anticoagulant long-term use Z79.01 [facility] [address] [place] [id number] [place] [address] Apr, [facility] [address] [address] Apr, Anticoagulant long-term use Z79.01 [facility] [address] [place] [id number] [place] [address] Apr, Anticoagulant long-term use Z79.01 [facility] [address] [place] [id number] [place] [address] Apr, Anticoagulant long-term use Z79.01 [facility] [address] [place] [id number] [place] [address] Mar, [facility] [address] [place] [id number] [place] [address] Mar, [facility] [address] [place] [id number] [place] [address] Mar, Anticoagulant long-term use Z79.01 [facility] [address] [place] [id number] [place] [address] Feb, [facility] [address] [place] [id number] [place] [address] Feb, [facility] [address] [place] [id number] [place] [address] Feb, Anticoagulant long-term use Z79.01 [facility] [address] [place] [id number] [place] [address] Feb, Anticoagulant long-term use Z79.01 [facility] [address] [place] [id number] [place] [address] Jan, [facility] [address] [address] Jan, Anticoagulant long-term use Z79.01 [facility] [address] [place] [id number] [place] [address] Jan, Anticoagulant long-term use Z79.01 [facility] [address] [address] Dec, Anticoagulant long-term use Z79.01 [facility] [address] [address] Dec, Anticoagulant long-term use Z79.01 [facility] [address] [place] [id number] [place] [address] Dec, Anticoagulant long-term use Z79.01 and Mood disorder F39 [facility] [address] [place] [id number] [place] [address] Dec, [facility] [address] [place] [id number] [place] [address] Nov, [facility] [address] [place] [id number] [place] [address] Nov, Anticoagulant long-term use Z79.01 [facility] [address] [place] [id number] [place] [address] Nov, Anticoagulant long-term use Z79.01 [facility] [address] [place] [id number] [place] [address] September, Anticoagulant long-term use Z79.01 [facility] [address] [place] [id number] [place] [address] Jul, Anticoagulant long-term use Z79.01 [facility] [address] [place] [id number] [place] [address] May, Anticoagulant long-term use Z79.01 [facility] [address] [place] [id number] [place] [address] May, Anticoagulant long-term use Z79.01 [facility] [address] [address] May, Anticoagulant long-term use Z79.01 [place] [address] [place] [id number] [place] [address] May, Anticoagulant long-term use Z79.01 [place] [address] [address] May, [place] [address] [place] [id number] [place] [address] May, Congestive heart failure, unspecified congestive heart failure chronicity, unspecified congestive heart failure type I50.9 and Pulmonary congestion R09.89 [place] [address] [address] Apr, Cough R05 ; Congestive heart failure, unspecified congestive heart failure chronicity, unspecified congestive heart failure type I50.9 and Pulmonary congestion R09.89 [place] [address] [place] [id number] [place] [address] Mar, Hematuria R31.9 [place] [address] [place] [id number] [place] [address] Mar, [place] [address] [place] [id number] [place] [address] Mar, Anticoagulant long-term use Z79.01 [place] [address] [place] [id number] [place] [address] Mar, [place] [address] [address] Mar, Hematuria R31.9 and Infective urethritis N34.2 [facility] [address] [place] [address] Mar, Anticoagulant long-term use Z79.01 [facility] [address] [place] [address] Mar, Anticoagulant long-term use Z79.01 [facility] [address] [place] [id number] [place] [address] Mar, [facility] [address] [place] [id number] [place] [address] Mar, Anticoagulant long-term use Z79.01 [facility] [address] [place] [id number] [place] [address] Feb, Peristomal skin breakdown L98.499 [place] [address] [place] [id number] [place] [address] Feb, [facility] [address] [place] [id number] [place] [address] Feb, UTI (urinary tract infection) N39.0 [place] [address] [place] [address] Jan, [place] [address] [place] [address] Dec, High risk medication use V58.69 [place] [address] [place] [address] Nov, High risk medication use V58.69 [place] [address] [place] [address] Nov, [facility] [address] [place] [address] Nov, UTI (lower urinary tract infection) 599.0 ; URI, acute 465.9 ; Insomnia 780.52 ; Anxiety 300.00 and Lower limb amputation, unspecified level V49.70 [facility] [address] [place] [id number] [address] Oct, UTI (lower urinary tract infection) 599.0 ; URI, acute 465.9 ; Insomnia 780.52 ; Anxiety 300.00 and Lower limb amputation, unspecified level V49.70 [facility] [address] [address] 14 Aug, 2014 [facility] [address] [facility] [id number] [address] Aug, [facility] [address] [id number] [place] [address] Jul, [facility] [address] [id number] [address] Jul, [facility] [address] [id number] [place] [address] Jun, [facility] [address] [address] Jun, [facility] [address] [address] Mar, [facility] [address] [address] Mar, [facility] [address] [address] Mar, [facility] [address] [id number] [address] Mar, [facility] [address] [address] Mar, [facility] [address] [address] Feb, [facility] [address] [id number] [address] Feb, [facility] [place] [facility] [address] [id number] [place] [address] Feb, 2013 [facility] [place] [facility] [address] [id number] [place] [address] Feb, 2013 [facility] [place] [facility] [address] [id number] [place] [address] Feb, 2013 [facility] [place] [facility] [address] [id number] [place] [address] Feb, 2013 [facility] [place] [facility] [address] [id number] [place] [address] Feb, 2013 [facility] [place] [facility] [address] [id number] [place] [address] Feb, [facility] [place] [facility] [address] [id number] [place] [address] Feb, [facility] [place] [facility] [address] [id number] [place] [address] Feb, [facility] [place] [facility] [address] [id number] [place] [address] Feb, [facility] [place] [facility] [address] [id number] [place] [address] Feb, [facility] [place] [facility] [address] [id number] [place] [address] Feb, [facility] [place] [facility] [address] [id number] [place] [address] Feb, [facility] [place] [facility] [address] [id number] [place] [address] Feb, [facility] [place] [facility] [address] [id number] [place] [address] Feb, [facility] [place] [facility] [address] [id number] [place] [address] Jan, [facility] [place] [facility] [address] [id number] [place] [address] Jan, [facility] [place] [facility] [address] [id number] [place] [address] Jan, [facility] [place] [facility] [address] [id number] [place] [address] Jan, [facility] [place] [facility] [address] [id number] [place] [address] Jan, [facility] [place] [facility] [address] [id number] [place] [address] Nov, [facility] [place] [facility] [address] [id number] [place] [address] Nov, [facility] [place] [facility] [address] [id number] [place] [address] Nov, [facility] [place] [facility] [address] [id number] [place] [address] Nov, [facility] [place] [facility] [address] [id number] [place] [address] Nov, [facility] [place] [facility] [address] [id number] [place] [address] Nov, [facility] [place] [facility] [address] [id number] [place] [address] Oct, [facility] [place] [facility] [address] [id number] [place] [address] Oct, [facility] [place] [facility] [address] [id number] [place] [address] Oct, [facility] [place] [facility] [address] [id number] [place] [address] Oct, [facility] [place] [facility] [address] [id number] [place] [address] Oct, [facility] [place] [facility] [address] [id number] [place] [address] Oct, [facility] [place] [facility] [address] [id number] [place] [address] Oct, [facility] [address] [id number] [place] [address] September, [facility] [address] [id number] [place] [address] September, [facility] [address] [id number] [place] [address] September, [facility] [address] [id number] [place] [address] September, [facility] [address] [id number] [place] [address] September, [facility] [address] [id number] [place] [address] September, [facility] [address] [id number] [place] [address] September, [facility] [address] [id number] [place] [address] September, [facility] [address] [id number] [place] [address] Aug, [facility] [address] [id number] [place] [address] Aug[place] [facility] [place] [facility] [address] [id number] [place] [address] Aug, [facility] [place] [facility] [address] [id number] [place] [address] Aug, [facility] [place] [facility] [address] [id number] [place] [address] Jul, [facility] [place] [facility] [address] [id number] [place] [address] Jul, [facility] [place] [facility] [address] [id number] [place] [address] Jun, [facility] [place] [facility] [address] [id number] [place] [address] Jun, [facility] [place] [facility] [address] [id number] [place] [address] Jun, [facility] [place] [facility] [address] [id number] [place] [address] Jun, [facility] [place] [facility] [address] [id number] [place] [address] Jun, [facility] [place] [facility] [address] [id number] [place] [address] Jun, [facility] [place] [facility] [address] [id number] [place] [address] May, [facility] [place] [facility] [address] [id number] [place] [address] May, [facility] [place] [facility] [address] [id number] [place] [address] May, [facility] [place] [facility] [address] [id number] [place] [address] May, [facility] [place] [facility] [address] [id number] [place] [address] May, [facility] [place] [facility] [address] [id number] [place] [address] May, [facility] [place] [facility] [address] [id number] [place] [address] Feb, [facility] [place] [facility] [address] [id number] [place] [address] Feb, [facility] [place] [facility] [address] [id number] [place] [address] Feb, [facility] [place] [facility] [address] [id number] [place] [address] Feb, [facility] [place] [facility] [address] [id number] [place] [address] 04 Jan, 2013 [facility] [address] [id number] [place] [address] Jan, [facility] [address] [id number] [place] [address] Jan, [facility] [address] [id number] [place] [address] Dec, [facility] [place] [facility] [address] [id number] [place] [address] Nov, [facility] [address] [id number] [place] [address] Nov, [facility] [address] [id number] [place] [address] Nov, [facility] [address] [id number] [place] [address] Nov, [facility] [address] [id number] [place] [address] Nov, [facility] [address] [id number] [place] [address] Oct, [facility] [address] [id number] [place] [address] September, [facility] [address] [id number] [place] [address] September, [facility] [address] [id number] [place] [address] Aug, [facility] [place] [facility] [address] [id number] [place] [address] Aug, [facility] [place] [facility] [address] [id number] [place] [address] Jul, [facility] [address] [id number] [place] [address] Jul, [facility] [place] [facility] [address] [id number] [place] [address] 08 Jul, 2012 [facility] [address] [id number] [place] [address] Jul, [facility] [place] [facility] [address] [id number] [place] [address] Jun, [facility] [place] [facility] [address] [id number] [place] [address] Jun, [facility] [facility] [address] [id number] [place] [address] Jun, [facility] [address] [id number] [place] [address] May, [facility] [address] [id number] [place] [address] May, [facility] [address] [id number] [place] [address] May, [facility] [address] [id number] [place] [address] May, [facility] [address] [id number] [place] [address] Apr, [facility] [place] [facility] [address] [id number] [place] [address] Apr, [facility] [place] [facility] [address] [id number] [place] [address] Apr, [facility] [place] [facility] [address] [id number] [place] [address] Apr, [facility] [place] [facility] [address] [id number] [place] [address] Apr, [facility] [place] [facility] [address] [id number] [place] [address] Apr, [facility] [place] [facility] [address] [id number] [place] [address] Mar, [facility] [place] [facility] [address] [id number] [place] [address] Mar, [facility] [place] [facility] [address] [id number] [place] [address] Mar, [facility] [place] [facility] [address] [facility] [id number] [place] [address] Mar, [facility] [place] [facility] [address] [id number] [place] [address] Mar, [facility] [place] [facility] [address] [id number] [place] [address] Mar, [facility] [place] [facility] [address] [facility] [id number] [place] [address] Feb, [facility] [place] [facility] [id number] [address] Feb, [facility] [place] [facility] [address] [facility] [id number] [place] [address] Feb, [facility] [place] [facility] [address] [facility] [id number] [place] [address] Feb, [facility] [place] [facility] [address] [facility] [id number] [place] [address] Jan, [facility] [place] [facility] [address] [facility] [id number] [place] [address] 25 Jan, 2012 [facility] [place] [facility] [address] [facility] [id number] [place] [address] 24 Jan, 2012 [facility] [place] [facility] [address] [id number] [place] [address] 10 Jan, 2012 [facility] [place] [facility] [address] [facility] [address] [id number] [place] [address] Dec, [facility] [place] [facility] [address] [facility] [id number] [place] [address] Dec, [facility] [place] [facility] [address] [id number] [place] [address] Nov, [facility] [place] [facility] [address] [id number] [place] [address] Oct, [facility] [place] [facility] [address] [id number] [place] [address] Oct, [facility] [place] [facility] [address] [id number] [place] [address] Oct, [facility] [place] [facility] [address] [id number] [place] [address] September, [facility] [place] [facility] [address] [id number] [place] [address] September, [facility] [place] [facility] [address] [id number] [place] [address] September, [facility] [place] [facility] [address] [id number] [place] [address] September, [facility] [place] [facility] [address] [id number] [place] [address] September, [facility] [place] [facility] [address] [id number] [place] [address] September, [facility] [place] [facility] [address] [id number] [place] [address] September, [facility] [place] [facility] [address] [id number] [place] [address] Jul, [facility] [place] [facility] [address] [id number] [place] [address] Jul, [facility] [place] [facility] [address] [id number] [place] [address] Jun, [facility] [place] [facility] [address] [id number] [place] [address] Jun, [facility] [place] [facility] [address] [id number] [place] [address] Jun, [facility] [address] [id number] [address] 10 May, 2011 [facility] [id number] [address] Mar, [facility] [id number] [address] Mar, [facility] [id number] [address] Mar, [facility] [id number] [address] Feb, [facility] [id number] [place] [address] Feb, [facility] [id number] [address] Dec, [facility] [id number] [address] May, [facility] [id number] [address] Apr, [facility] [id number] [address] Apr, [facility] [id number] [address] Apr, [facility] [address] [id number] [address] Apr, [facility] [address] [id number] [address] 30 Feb, 2009 [facility] [address] [id number] [address] Oct, IMMUNIZATIONS No Known Immunizations SOCIAL HISTORY Never Assessed REASON FOR VISIT f/u hospital [facility] for pneumonia. , Blood in urine x 2 weeks. Started and finishe d anti-biotics but now hematuria is back. ROSALIA Herrera PLAN OF CARE VITAL SIGNS Height 62 in 2016-11-11 Temperature 98.1 degrees Fahrenheit 2016-11-11 Heart Rate 68 bpm 2016-11-11 Respiratory Rate 18 2016-11-11 Blood pressure systolic 150 mmHg 2016-11-11 Blood pressure diastolic 64 mmHg 2016-11-11 MEDICATIONS Medication Instructions Dosage Frequency Start Date End Date Duration Status Lisinopril 10 mg Orally Once a day 1 tablet 24h Active Folic Acid 1 MG Orally Once a day 1 tablet 24h Active Clopidogrel Bisulfate 75 MG Orally Once a day 1 tablet 24h Active Simvastatin 20 mg Orally Once a day 2 tablets 24h Active Metoprolol Succinate ER 50MG Orally Once a day 1 tablet 24h Active Amlodipine Besylate 10 mg Orally Once a day 1 tablet 24h Active Paroxetine HCl 10 mg Orally Once a day 1 tablet in the morning 24h Active Montelukast Sodium 10 mg Orally Once a day 1 tablet in the evening 24h Active Klor-Con M20 20 meq Orally Once a day 1 tablet with food 24h 30 Active Warfarin Sodium 1 MG Orally 5 times weekly on Monday, Monday, , Monday and Monday 1 tablet Active Warfarin Sodium 2 MG Orally twice weekly on Mon and Mon 1 tablet Active RESULTS Name Result Date Reference Range UA LONG DIP (IN HOUSE) 2016-11-11 Lot # [id number] Exp date 07/2018 Clarity slightly cloudy Color red Odor none GLU NEG SCOTT NEG KET NEG SG 1.010 BLO 3+ pH 6.5 Protein 1+ URO 0.2 NIT NEG TOBIN TRACE Lot # Exp date PROCEDURES Procedure Date Ordered Result Body Site URINALYSIS, AUTO, W/O SCOPE November 11, 2016 [facility] VISIT ESTABLISHED PATIENT November 11, 2016 INSTRUCTIONS MEDICATIONS ADMINISTERED No Known Medications [...]
--- OUTSIDE RECORDS SUMMARY | 2018-12-05 12:27 | XMS REPORT | Continuity of Care Document ---
Author Organization Unknown Address Unknown Phone Unavailable Allergies Active Description [...] 06/11/2008 Yes Penicillins Drug Allergy 06/11/2008 Medications There is no data. Problems Date Dx Coded Attending Type Code [...] SPRAIN/STRAIN ANKLE 03/26/2008 845.00 SPRAIN/STRAIN ANKLE 03/26/2008 ADELINE HALL MD 845.00 SPRAIN/STRAIN ANKLE 03/26/2008 ERIK SAMAYOA APRN 845.00 SPRAIN/STRAIN ANKLE 03/26/2008 ERIK SAMAYOA APRN [...] 729.5 foot pain (soft tissue) 04/16/2008 JORDAN DOANJEL K 729.5 foot pain (soft tissue) 04/16/2008 [...] 729.5 foot pain (soft tissue) 04/16/2008 JORDAN DO ANJEL K 729.5 foot pain (soft tissue) 04/16/2008 JORDAN DO, ANJEL K 729.5 foot pain (soft tissue) 04/16/2008 JORDAN DO, ANJEL K 729.5 foot pain (soft tissue) 04/16/2008 JORDAN DOYIA K 729.5 foot pain (soft tissue) 04/16/2008 [...] 894.0 WOUND OPEN LOWER LIMB 05/05/2008 JORDAN DO ANJEL K 401.1 HYPERTENSION, BENIGN ESSENTIAL 05/05/2008 JORDAN DO ANJEL K 894.0 WOUND OPEN LOWER LIMB [...] 894.0 WOUND OPEN LOWER LIMB 05/05/2008 [employer] SAL[employer] CONSULTANT, ERIK T 401.1 HYPERTENSION, BENIGN ESSENTIAL 05/05/2008 [employer]ITA [employer]UC[employer] SALES CONSULTANT, ERIK T 894.0 WOUND OPEN LOWER LIMB 05/05/2008 DANITA EDUC[employer] SALES CONSULTANT, ERIK T 401.1 HYPERTENSION, BENIGN ESSENTIAL 05/05/2008 DANITA EDUCATION SALES CONSULTANT, ERIK T 894.0 WOUND OPEN LOWER LIMB 05/05/2008 DANITA EDUCATION SALES CONSULTANT, ERIK T 401.1 HYPERTENSION, BENIGN ESSENTIAL 05/05/2008 DANITA EDUCATION SALES CONSULTANT, ERIK T 894.0 WOUND OPEN LOWER LIMB 05/05/2008 DANITA EDUCATION SALES CONSULTANT, ERIK T 401.1 HYPERTENSION, BENIGN ESSENTIAL 05/05/2008 DANITA EDUCATION SALES CONSULTANT, ERIK T 894.0 WOUND OPEN LOWER LIMB 05/05/2008 DANITA EDUCATION SALES CONSULTANT, ERIK T 401.1 HYPERTENSION, BENIGN ESSENTIAL 05/05/2008 DANITA EDUCATION SALES CONSULTANT, ERIK T 894.0 WOUND OPEN LOWER LIMB 05/05/2008 DANITA EDUCATION SALES CONSULTANT, ERIK T 401.1 HYPERTENSION, BENIGN ESSENTIAL 05/05/2008 D[employer]ITA EDUC[employer] SALES CONSULTANT, ERIK T 894.0 WOUND OPEN LOWER LIMB 05/07/2008 ERIK SAMAYOA APRN T V65.40 OTHER SPECIFIED COUNSELING 05/07/2008 V65.40 OTHER SPECIFIED COUNSELING 05/07/2008 V65.40 OTHER SPECIFIED COUNSELING 05/07/2008 V65.40 OTHER SPECIFIED COUNSELING 05/07/2008 V65.40 OTHER SPECIFIED COUNSELING 05/07/2008 NIKKI KLINE, ANJEL K V65.40 OTHER SPECIFIED COUNSELING 05/07/2008 [...] URINARY TRACT INFECTION 10/23/2008 ERIK SAMAYOA APRN T 692.9 DERMATITIS 10/23/2008 DANITA CABRERA, ERIK T 599.0 URINARY TRACT INFECTION 10/23/2008 DANITA VILLAFANAN, ERIK T 692.9 DERMATITIS 10/23/2008 DANITA VILLAFANAN, ERIK T 599.0 URINARY TRACT INFECTION 10/23/2008 DANITA CABRERA, ERIK T 692.9 DERMATITIS 10/23/2008 DANITA CABRERA, ERIK T 599.0 URINARY TRACT INFECTION 10/23/2008 [...] JORDAN DO, ANJEL K 276.8 HYPOKALEMIA 11/01/2008 ANJEL JORDAN DO 276.8 HYPOKALEMIA 11/01/2008 ERIK SAMAYOA APRN T [...] Skin And Nails 03/06/2009 ANJEL JORDAN DO K 112.3 Candidiasis, Of Skin And Nails [...] 110.4 Tinea Pedis 04/20/2009 ANJEL JORDAN DO 110.4 Tinea Pedis 04/20/2009 110.4 Tinea Pedis [...] DO, ANJEL K 110.4 Tinea Pedis 04/20/2009 ERIK SAMAYOA APRN T 110.4 Tinea Pedis 04/20/2009 ERIK SAMAYOA APRN T 110.4 Tinea Pedis 04/20/2009 ERIK SAMAYOA APRN T 110.4 Tinea Pedis 04/20/2009 ERIK SAMAYOA APRN T 110.4 Tinea Pedis 04/20/2009 ERIK SAMAYOA APRN 110.4 Tinea Pedis 04/20/2009 ERIK SAMAYOA APRN 110.4 Tinea Pedis 05/22/2009 ERIK SAMAYOA APRN [...] CELLULITIS AND ABSCESS OF UNSPECIFIED SITES 05/22/2009 RAFAEL CHRISTIANSON, ADELINE 682.9 CELLULITIS AND ABSCESS OF UNSPECIFIED SITES 05/22/2009 ERIK SAMAYOA APRN 682.9 CELLULITIS AND ABSCESS OF UNSPECIFIED SITES 05/22/2009 ERIK SAMAYOA APRN 682.9 CELLULITIS AND ABSCESS OF UNSPECIFIED SITES 05/22/2009 ERIK SAMAYOA APRN 682.9 CELLULITIS AND ABSCESS OF UNSPECIFIED SITES 05/22/2009 JORDAN DO ANJEL K 682.9 CELLULITIS AND ABSCESS OF [...] INTERMITTENT CLAUDICATION 08/26/2009 443.9 INTERMITTENT CLAUDICATION 08/26/2009 ADELINE HALL MD 443.9 INTERMITTENT CLAUDICATION 08/26/2009 ERIK SAMAYOA APRN 443.9 INTERMITTENT CLAUDICATION 08/26/2009 ERIK SAMAYOA APRN T 443.9 INTERMITTENT CLAUDICATION 08/26/2009 ERIK SAMAYOA APRN 443.9 INTERMITTENT CLAUDICATION 08/26/2009 JORDAN DO, ANJEL [...] 08/26/2009 ERIK SAMAYOA APRN 443.9 INTERMITTENT CLAUDICATION 12/18/2009 ERIK SAMAYOA APRN [...] 465.9 UPPER RESPIRATORY INFECTION 12/18/2009 JORDAN DO, ANJLE K 272.4 HYPERLIPIDEMIA UNSPECIFIED 12/18/2009 JORDAN DO, [...] 357.9 NEUROPATHY UNSP 09/29/2010 ERIK SAMAYOA APRN T 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 01/14/2011 ERIK SAMAYOA APRN 477.9 RHINITIS 01/14/2011 477.9 RHINITIS 01/14/2011 477.9 RHINITIS 01/14/2011 477.9 RHINITIS 01/14/2011 477.9 RHINITIS 01/14/2011 NIKKI KLINE, ANJEL K 477.9 RHINITIS 01/14/2011 477.9 RHINITIS 01/14/2011 477.9 RHINITIS 01/14/2011 477.9 RHINITIS 01/14/2011 EIRK SAMAYOA APRN 477.9 RHINITIS 01/14/2011 477.9 RHINITIS 01/14/2011 477.9 RHINITIS 01/14/2011 477.9 RHINITIS 01/14/2011 477.9 RHINITIS 01/14/2011 477.9 RHINITIS 01/14/2011 477.9 RHINITIS 01/14/2011 477.9 RHINITIS 01/14/2011 ADELINE HALL MD 477.9 RHINITIS 01/14/2011 ERIK SAMAYOA APRN 477.9 [...] medication 04/05/2011 V58.69 taking high-risk medication 04/05/2011 ADELINE HALL MD V58.69 taking high-risk medication 04/05/2011 ERIK SAMAYOA [...] taking high-risk medication 07/04/2011 ERIK SAMAYOA APRN 296.90 MOOD DISORDER [...] MOOD DISORDER 07/04/2011 296.90 MOOD DISORDER 07/04/2011 RAFAEL CHRISTIANSON, ADELINE 296.90 MOOD DISORDER 07/04/2011 ERIK SAMAYOA APRN 296.90 MOOD DISORDER 07/04/2011 ERIK SAMAYOA APRN 296.90 MOOD DISORDER 07/04/2011 ERIK SAMAYOA APRN 296.90 MOOD DISORDER 07/04/2011 JORDAN DO, ANJEL [...] 07/04/2011 ERIK SAMAYOA APRN 296.90 MOOD DISORDER 07/13/2011 ERIK SAMAYOA APRN [...] SAMAYOA APRN 268.9 VITAMIN D DEFICIENCY 07/13/2011 ERKI SAMAYOA APRN 268.9 VITAMIN D DEFICIENCY 11/25/2011 [...] INFECTION 04/10/2012 599.0 URINARY TRACT INFECTION 04/10/2012 JORDAN DO, ANJEL K 599.0 URINARY TRACT INFECTION 04/10/2012 599.0 [...] 07/06/2012 782.3 EDEMA 07/06/2012 ERIK SAMAYOA APRN 702.0 ACTINIC KERATOSIS 07/06/2012 ERIK SAMAYOA APRN [...] ADELINE HALL MD 702.0 ACTINIC KERATOSIS 07/06/2012 RAFAEL CHRISTIANSON, ADELINE 782.3 EDEMA 07/06/2012 [employer] SALES CONSULTANT, ERIK T 702.0 ACTINIC KERATOSIS 07/06/2012 DANITA EDUC[employer] SALES CONSULTANT, ERIK T 782.3 EDEMA 07/06/2012 D[employer]ITA EDUC[employer] SALES CONSULTANT, ERIK T 702.0 ACTINIC KERATOSIS 07/06/2012 DANITA EDUCATION SALES CONSULTANT, ERIK T 782.3 EDEMA 07/06/2012 DANITA EDUCATION SALES CONSULTANT, ERIK T 702.0 ACTINIC KERATOSIS 07/06/2012 DANITA EDUCATION SALES CONSULTANT, ERIK T 782.3 EDEMA 07/06/2012 JORADN DO, ANJEL K 702.0 ACTINIC KERATOSIS 07/06/2012 JORDAN DO, ANJEL K 782.3 EDEMA 07/06/2012 JORDAN DO, ANJEL K 702.0 ACTINIC KERATOSIS 07/06/2012 JORDAN DO, ANJEL K 782.3 EDEMA 07/06/2012 JORDAN DO, ANJEL K 702.0 ACTINIC KERATOSIS 07/06/2012 JORDAN DO, ANJEL K 782.3 EDEMA 07/06/2012 JORDAN DO, ANJEL K 702.0 ACTINIC KERATOSIS 07/06/2012 JORDAN DO, ANJEL K 782.3 EDEMA 07/06/2012 D[employer]ITA EDUC[employer] SALES CONSULTANT, ERIK T 702.0 ACTINIC KERATOSIS 07/06/2012 DANITA EDUCATION SALES CONSULTANT, ERIK T 782.3 EDEMA 07/06/2012 DANITA EDUCATION SALES CONSULTANT, ERIK T 702.0 ACTINIC KERATOSIS 07/06/2012 DANITA EDUCATION SALES CONSULTANT, ERIK T 782.3 EDEMA 07/06/2012 DANITA EDUCATION SALES CONSULTANT, ERIK T 702.0 ACTINIC KERATOSIS 07/06/2012 DANITA EDUCATION SALES CONSULTANT, ERIK T 782.3 EDEMA 07/06/2012 DANITA EDUCATION SALES CONSULTANT, ERIK T 702.0 ACTINIC KERATOSIS 07/06/2012 DANITA EDUCATION SALES CONSULTANT, ERIK T 782.3 EDEMA 07/06/2012 DANITA VILLAFANAN, ERIK T 702.0 ACTINIC KERATOSIS 07/06/2012 DANITA EDUC[employer] SALES CONSULTANT, ERIK T 782.3 EDEMA 07/06/2012 DANITA EDUCATION SALES CONSULTANT, ERIK T 702.0 ACTINIC KERATOSIS 07/06/2012 DANITA VILLAFANAN, ERIK T 782.3 EDEMA 10/22/2012 V49.70 UNSPECIFIED LEVEL [...] 216.9 MOLE/NEVUS - SITE UNSPECIFIED 11/13/2012 [employer] SAL[employer] CONSULTANT, ERIK T 216.9 MOLE/NEVUS - SITE UNSPECIFIED 11/13/2012 DANITA EDUC[employer] SALES CONSULTANT, ERIK T 216.9 MOLE/NEVUS - SITE UNSPECIFIED 11/13/2012 DANITA EDUCATION SALES CONSULTANT, ERIK T 216.9 MOLE/NEVUS - SITE UNSPECIFIED 11/13/2012 DANITA EDUC[employer] SALES CONSULTANT, ERIK T 216.9 MOLE/NEVUS - SITE UNSPECIFIED 11/13/2012 DANITA EDUC[employer] SALES CONSULTANT, ERIK T 216.9 MOLE/NEVUS - SITE UNSPECIFIED 11/13/2012 DANITA EDUC[employer] SALES CONSULTANT, ERIK T 216.9 MOLE/NEVUS - SITE UNSPECIFIED 01/31/2014 DANITA VILLAFANANERIK T 486 PNEUMONIA UNSPECIFIED 01/31/2014 DANITA VILLAFANAN ERIK T 599.0 URINARY TRACT INFECTION 01/31/2014 DANITA EDUC[employer] SALES CONSULTANT, ERIK T 486 PNEUMONIA UNSPECIFIED 01/31/2014 DANITA EDUCATION SALES CONSULTANT, ERIK T 599.0 URINARY TRACT INFECTION 01/31/2014 DANITA EDUCATION SALES CONSULTANT, ERIK T 486 PNEUMONIA UNSPECIFIED 01/31/2014 DANITA EDUCATION SALES CONSULTANT, ERIK T 599.0 URINARY TRACT INFECTION 01/31/2014 DANITA EDUCATION SALES CONSULTANT, ERIK T 486 PNEUMONIA UNSPECIFIED 01/31/2014 DANITA EDUCATION SALES CONSULTANT, ERIK T 599.0 URINARY TRACT INFECTION 01/31/2014 DANITA VILLAFANAN ERIK T 486 PNEUMONIA UNSPECIFIED 01/31/2014 DANITA VILLAFANAN ERIK T 599.0 URINARY TRACT INFECTION 01/31/2014 DANITA VILLAFANAN, ERIK T 486 PNEUMONIA UNSPECIFIED 01/31/2014 DANITA EDUC[employer] SALES CONSULTANT ERIK T 599.0 URINARY TRACT INFECTION Procedures Code [place] [address] INR (IN HOUSE) 04/10/2012 14367 CULTURE URINE 04/10/2012 23747 UA W/ CULTURE IF INDICATED 04/10/2012 91216 UA W/ CULTURE IF INDICATED 04/23/2012 55007 INR (IN HOUSE) 04/23/2012 15397 INR (IN HOUSE) 05/11/2012 71408 INR (IN HOUSE) 05/11/2012 95897 INR (IN HOUSE) 05/18/2012 59715 INR (IN HOUSE) 05/18/2012 82579 INR (IN HOUSE) 05/25/2012 89271 INR (IN HOUSE) 05/25/2012 19751 INR (IN HOUSE) 06/01/2012 45672 INR (IN HOUSE) 06/15/2012 91785 INR (IN HOUSE) 06/25/2012 88705 INR (IN HOUSE) 07/06/2012 94805 ROUTINE VENIPUNCTURE 07/13/2012 10087 INR (IN HOUSE) 07/13/2012 98487 CMP 07/13/2012 26011 LIPID PANEL 07/13/2012 83514 TSH 07/13/2012 47110 CBC 07/13/2012 22383 INR (IN HOUSE) 09/03/2012 12933 INR (IN HOUSE) 09/21/2012 62779 INR (IN HOUSE) 10/22/2012 78769 INR (IN HOUSE) 12/18/2012 14579 INR (IN HOUSE) 01/09/2013 14785 ROUTINE VENIPUNCTURE 02/13/2013 27399 CBC 02/13/2013 03514 CMP 02/13/2013 40299 LIPID PANEL 02/13/2013 [id number] GFR CALC (RESULT ONLY) 02/13/2013 29432 PT/INR 02/13/2013 48837 TSH 02/13/2013 92958 INR (IN HOUSE) 05/21/2013 92615 INR (IN HOUSE) 06/21/2013 95525 ROUTINE VENIPUNCTURE 06/28/2013 45735 PT/INR 06/28/2013 61212 INR (IN HOUSE) 07/12/2013 92895 INR (IN HOUSE) 09/13/2013 99159 CULTURE URINE 10/15/2013 11847 INR (IN HOUSE) 10/15/2013 73444 UA W/ CULTURE IF INDICATED 10/15/2013 92458 INR (IN HOUSE) 11/26/2013 39112 CAPILLARY BLOOD DRAW 11/26/2013 08352 CULTURE URINE 01/31/2014 27194 UA W/ CULTURE IF INDICATED 01/31/2014 09709 INR (IN HOUSE) 01/31/2014 87270 ROUTINE VENIPUNCTURE 02/07/2014 83779 PT/INR 02/07/2014 68548 CBC 02/07/2014 [id number] GFR CALC (RESULT ONLY) 02/07/2014 45559 CMP 02/07/2014 32697 LIPID PANEL 02/07/2014 16767 CULTURE URINE 03/03/2014 42578 UA W/ CULTURE IF INDICATED 03/03/2014 86523 UA W/ CULTURE IF INDICATED 03/12/2014 33004 CULTURE URINE 03/14/2014 28295 INR (IN HOUSE) 08/13/2014 Results Test Result Range CULTURE, URINE - 02/01/17 13:05 Urine Culture, Routine Final report NRG Result 1 Escherichia coli NRG Antimicrobial Susceptibility NRG CULTURE, URINE - 08/09/17 13:19 CULTURE, URINE, ROUTINE SEE NOTE NRG TSH - 10/26/17 13:47 TSH 1.33 mIU/L 0.40-4.50 VITAMIN B12 - 02/27/18 11:19 VITAMIN B12 681 pg/mL 200-1100 PT/INR - 08/01/18 15:16 INR 2.6 NRG PT 25.8 sec 9.0-11.5 TSH - 10/17/18 17:33 TSH 2.27 mIU/L 0.40-4.50 Encounters ACCT No. Visit Date/Time Discharge Status Pt. Type Provider Facility Loc./Unit Complaint [id number] 08/13/2014 11:57:00 08/13/2014 23:59:59 CLS Outpatient ERIK SAMAYOA APRN [id number] 03/12/2014 17:40:00 03/12/2014 23:59:59 CLS Outpatient ERIK SAMAYOA APRN [id number] 03/03/2014 14:09:00 03/03/2014 23:59:59 CLS Outpatient ERIK SAMAYOA APRN [id number] 02/07/2014 10:36:00 02/07/2014 23:59:59 CLS Outpatient ERIK SAMAYOA APRN [id number] 01/31/2014 08:50:00 01/31/2014 23:59:59 CLS Outpatient ERIK SAMAYOA APRN [id number] 01/31/2014 08:50:00 01/31/2014 23:59:59 CLS Outpatient ERIK SAMAYOA APRN [id number] 11/26/2013 11:17:00 11/26/2013 23:59:59 CLS Outpatient ANJEL JORDAN DO [id number] 10/15/2013 11:56:00 10/15/2013 23:59:59 CLS Outpatient ANJEL JORDAN DO [id number] 09/13/2013 11:33:00 09/13/2013 23:59:59 CLS Outpatient ANJEL JORDAN DO [id number] 07/12/2013 10:17:00 07/12/2013 23:59:59 CLS Outpatient ANJEL JORDAN DO [id number] 06/28/2013 11:14:00 06/28/2013 23:59:59 CLS Outpatient ERIK SAMAYOA APRN [id number] 06/21/2013 10:29:00 06/21/2013 23:59:59 CLS Outpatient ERIK SAMAYOA APRN [id number] 05/21/2013 13:17:00 05/21/2013 23:59:59 CLS Outpatient ERIK SAMAYOA APRN [id number] 02/13/2013 11:13:00 02/13/2013 23:59:59 CLS Outpatient ADELINE HALL MD [id number] 07/13/2012 10:22:00 07/13/2012 23:59:59 CLS Outpatient ERIK SAMAYOA APRN [id number] 07/06/2012 14:48:00 07/06/2012 23:59:59 CLS Outpatient [id number] 06/25/2012 11:31:00 06/25/2012 23:59:59 CLS Outpatient [id number] 06/15/2012 10:49:00 06/15/2012 23:59:59 CLS Outpatient [id number] 06/01/2012 11:38:00 06/01/2012 23:59:59 CLS Outpatient ANJEL JORDAN DO [id number] 05/25/2012 11:15:00 05/25/2012 23:59:59 CLS Outpatient [id number] 05/18/2012 11:19:00 05/18/2012 23:59:59 CLS Outpatient [id number] 05/11/2012 11:19:00 05/11/2012 23:59:59 CLS Outpatient [id number] 04/23/2012 11:12:00 04/23/2012 23:59:59 CLS Outpatient [id number] 01/31/2012 08:57:00 01/31/2012 23:59:59 CLS Outpatient ERIK SAMAYOA APRN [id number] 01/09/2013 15:27:00 Document Registration [id number] 12/18/2012 16:29:00 Document Registration [id number] 11/13/2012 16:30:00 Document Registration [id number] 10/22/2012 12:01:00 Document Registration [id number] 09/21/2012 12:18:00 Document Registration [id number] 09/03/2012 13:37:00 Document Registration [id number] 07/06/2012 14:48:00 Document Registration [id number] 11/06/2018 12:20:00 11/06/2018 23:59:59 [facility] ERIK SAMAYOA APRN [facility] [id number] 10/17/2018 17:00:00 Document Registration [id number] 08/01/2018 15:00:00 Document Registration [id number] 02/27/2018 10:40:00 Document Registration [id number] 10/26/2017 13:00:00 Document Registration [id number] 08/09/2017 12:40:00 Document Registration [id number] 02/01/2017 12:20:00 Document Registration
[2018-12-05] MEDS ORDERED: LISI-552 PO (12:52)
[2018-12-05] MEDS: methylPREDNISolone 40 MG/ML (Solu-MEDROL) VIAL IV SCH ×2 (12:52→17:55)
[2018-12-05] MEDS ORDERED: ESCI10TA55 PO (12:52)
[2018-12-05] MEDS ORDERED: DIAZ2TAB2 PO (12:52)
[2018-12-05] MEDS ORDERED: WARF1TAB82 PO (12:52)
--- NOTE | 2018-12-05 12:53 | NUR ---
1200 DOSE OF SOLU-MEDROL NON ADMINISTERED. PT HAD 125MG OF SOLU-MEDROL IN ED AT 1042.
[2018-12-05] MEDS ORDERED: POTA20TA15 PO (13:01)
[2018-12-05] MEDS ORDERED: CHOL10007 PO (13:02)
[2018-12-05] MEDS ORDERED: DOCU-143 PO (13:02)
--- NOTE | 2018-12-05 13:03 | NUR ---
SPOKE WITH THE PATIENT ABOUT HER MEDICATIONS. WE WENT OVER THE EXT MED HX AND SHE VERIFIED HOW SHE TAKES THEM. SHE STATES SHE IS NO LONGER TAKING THE METOPROLOL XL 50MG FILLED #90 10-15-18. SHE STATES SHE IS TAKING POTASSIUM 20MEQ DAILY HOWEVER IT HAS NOT BEEN FILLED SINCE 04-30-18 #90 AT [facility] ACCORDING TO THE EXT MED HX. I CALLED [facility] TO VERIFY THIS IS THE LAST DATE A CLAIM WAS FILED. [facility] DID NOT HAVE POTASSIUM ON FILE. WHEN I ASKED THE PATIENT WHAT TIME OF DAY SHE TAKES IT SHE REPLIED MORNING WHEN I REMEMBER. I NOTED THE PAST DUE FILL DATE ON THE MED REC. SHE TAKES VITAMIN D AND COLACE DAILY OTC.
--- NOTE | 2018-12-05 13:21 | Pulmonary Consultation ---
History of Present Illness History of Present Illness Date of Consultation 12/05/18 13:16 Time Seen by Provider: 13:16 Date of Admission History of Present Illness 73yo with hx of PNA, DVTs (coumadin therapy), right AKA, cervical cancer presented to ED via EMS secondary to worsening SOB, productive cough of yellow sputum, and chest tightness. She has had smilar episodes in the past when she was diagnosed wiht PNA. Allergies and Home Medications Allergies Coded Allergies: aspirin (Verified Allergy, Unknown, 09/09/05) codeine (Verified Allergy, Unknown, NO ALLERGY TO MORPHINE, 11/24/08) penicillin G (Verified Allergy, Unknown, 09/09/05) Uncoded Allergies: METALS (Allergy, Mild, RASHES, 05/22/06) Home Medications Amlodipine Besylate 10 Mg Tablet, 10 MG PO DAILY, (Reported) Cholecalciferol (Vitamin D3) 1,000 Unit Capsule, 1,000 UNIT PO DAILY, (Reported) Clopidogrel Bisulfate 75 Mg Tablet, 75 MG PO DAILY, (Reported) Diazepam 2 Mg Tablet, 2 MG PO DAILY PRN for ANXIETY, (Reported) Docusate Sodium 100 Mg Capsule, 100 MG PO DAILY, (Reported) Escitalopram Oxalate 10 Mg Tablet, 10 MG PO DAILY, (Reported) Folic Acid 1 Mg Tablet, 1 MG PO DAILY, (Reported) Lisinopril 20 Mg Tablet, 20 MG PO DAILY, (Reported) Montelukast Sodium 10 Mg Tablet, 10 MG PO DAILY, (Reported) Potassium Chloride 20 Meq Tab.er.prt, 20 MEQ PO DAILY, (Reported) LAST FILLED #90 18 Simvastatin 20 Mg Tablet, 40 MG PO HS, (Reported) TAKES 2 (20 MG) TABLETS Warfarin Sodium 1 Mg Tablet, 1 MG PO SuTuWeThSa@1900, (Reported) Warfarin Sodium 1 Mg Tablet, 2 MG PO MoFr@1900, (Reported) TAKES 2 (1MG) TABLETS Past Zglgqxf-Qhshwe-Shlwnr Hx Past Med/Social Hx: Reviewed Nursing Past Med/Soc Hx Patient Social History Alcohol Use: Denies Use Recreational Drug Use: No Smoking Status: Current Everyday Smoker Type Used: Cigarettes Recent Foreign Travel: No Contact w/Someone Who Travel: No Recent Infectious Disease Expo: No Recent Hopitalizations: No Physical Abuse: No Sexual Abuse: No Mistreated: No Fear: No Immunizations Up To Date Date of Pneumonia Vaccine: Feb 06, 2012 Seasonal Allergies Seasonal Allergies: No Past Medical History Surgeries: Yes (ILEOSTOMY,COLOSTOMY, R AKA) Abdominal, Appendectomy, Bowel Surgery, Orthopedic, Vascular Surgery Respiratory: Yes Chronic Bronchitis, COPD Cardiac: Yes (SEVERE PVD--RIGHT AKA) High Cholesterol, Hypertension, Peripheral Vascular Neurological: No Reproductive Disorders: Yes (CERVICAL CANCER) Genitourinary: Yes Bladder Infection Gastrointestinal: Yes (MULTIPLE SURGERIES FOR PERF. COLON AND COLOSTOMY) Musculoskeletal: Yes (RIGHT AKA FOR SEVERE PVD) Amputee Endocrine: No HEENT: No Cancer: Yes (CERVICAL CANCER 2003--S/P RADIATION IMPLANTS, CHEMO AND RADIATION) Cervical Did You Recieve Any Treatments: Yes What Type of Treatment Did You: Chemotherapy, Radiation Psychosocial: Yes Depression Integumentary: No Blood Disorders: No Family Medical History Reviewed Nursing Family Hx No Pertinent Family Hx Sepsis Event Evaluation Height, Weight, BMI Height: 5'2.00" Weight: 126lbs. 2.0oz. 57.151256ze; 22.9 BMI Method:Stated Exam Exam Vital Signs Date Time Temp Pulse Resp B/P (MAP) Pulse Ox O2 Delivery O2 Flow Rate FiO2 12/05/18 12:16 99.1 88 20 105/64 94 Nasal Cannula 5.00 12/05/18 11:42 99.7 94 22 124/59 (80) 98 Nasal Cannula 5.00 12/05/18 10:41 99 12/05/18 10:32 98 12/05/18 10:27 98 12/05/18 10:18 88 Nasal Cannula 3.00 12/05/18 10:00 101.4 12/05/18 09:46 91 Nasal Cannula 4.00 12/05/18 09:46 101.4 90 22 140/87 (104) 92 Nasal Cannula 4.00 Height & Weight Height: 5'2.00" Weight: 126lbs. 2.0oz. 57.298374hy; 22.9 BMI Method:Stated Results Lab Laboratory Tests 12/05/18 09:52 Assessment/Plan Assessment/Plan RML PNA -Continue Cefepime -Check Ct chest r/o mass COPDAE -SVNS -Solumedrol tobacco use education VIVIENNE SMITH DO Dec 05, 2018 13:21
[2018-12-05] MEDS ORDERED: KCL 20 MEQ TAB (K-DUR) PO NR (13:30)
--- NOTE | 2018-12-05 14:32 | History & Physical ---
ARACELI JONES, 12/05/18 1432: History of Present Illness History of Present Illness Reason for visit/HPI CC: Cough and temperature HPI: Pt did not feel well and came in to the [facility] so she would not get worse. She began feeling badly yesterday (12/04/2018). Last night it worsened. She took her temperature and it was 101F. She took 2 Tylenol and that helped decrease her temperature. Her nose is congested. She does cough up sputum and it is white/villarreal in color. Chest aches when breathing from coughing. She sees Anastasiia at the [facility] and has a physician at [facility] in [place], but could not remember his name. Allergies: she does state she has an allergy to morphine, codeine, penicillin and aspirin Date of Admission Dec 05, 2018 at 11:25 Date Seen by a Provider: Dec 05, 2018 Time Seen by a Provider: 14:15 I consulted on this patient on 12/05/18 14:24 Attending Physician Marysol Nuñez DO Admitting Physician Gemini Mclean DO Consult Allergies and Home Medications Allergies Coded Allergies: aspirin (Verified Allergy, Unknown, 09/09/05) codeine (Verified Allergy, Unknown, NO ALLERGY TO MORPHINE, 11/24/08) morphine (Verified Allergy, Unknown, 12/05/18) penicillin G (Verified Allergy, Unknown, 09/09/05) Uncoded Allergies: METALS (Allergy, Mild, RASHES, 05/22/06) Home Medications Amlodipine Besylate 10 Mg Tablet, 10 MG PO DAILY, (Reported) Cholecalciferol (Vitamin D3) 1,000 Unit Capsule, 1,000 UNIT PO DAILY, (Reported) Clopidogrel Bisulfate 75 Mg Tablet, 75 MG PO DAILY, (Reported) Diazepam 2 Mg Tablet, 2 MG PO DAILY PRN for ANXIETY, (Reported) Docusate Sodium 100 Mg Capsule, 100 MG PO DAILY, (Reported) Escitalopram Oxalate 10 Mg Tablet, 10 MG PO DAILY, (Reported) Folic Acid 1 Mg Tablet, 1 MG PO DAILY, (Reported) Lisinopril 20 Mg Tablet, 20 MG PO DAILY, (Reported) Montelukast Sodium 10 Mg Tablet, 10 MG PO DAILY, (Reported) Potassium Chloride 20 Meq Tab.er.prt, 20 MEQ PO DAILY, (Reported) LAST FILLED #90 12-24-18 Simvastatin 20 Mg Tablet, 40 MG PO HS, (Reported) TAKES 2 (20 MG) TABLETS Warfarin Sodium 1 Mg Tablet, 1 MG PO SuTuWeThSa@1900, (Reported) Warfarin Sodium 1 Mg Tablet, 2 MG PO MoFr@1900, (Reported) TAKES 2 (1MG) TABLETS Patient Home Medication List Home Medication List Reviewed: Yes Past Ryenvvi-Jdenvo-Mvinnl Hx Patient Social History Marrital Status: Number of Children: 4 Alcohol Use: Denies Use Recreational Drug Use: No Smoking Status: Current Everyday Smoker (1/2 pack per day since she was 20 (55 years)) Type Used: Cigarettes Recent Foreign Travel: No Contact w/other who traveled: No Recent Hopitalizations: No Recent Infectious Disease Expo: No Immunizations Up To Date Date of Pneumonia Vaccine: Feb 06, 2012 Seasonal Allergies Seasonal Allergies: No Surgeries Yes (ILEOSTOMY,COLOSTOMY, R AKA) Abdominal, Appendectomy, Bowel Surgery, Orthopedic, Vascular Surgery Respiratory Yes Cardiovascular Yes (SEVERE PVD--RIGHT AKA) High Cholesterol, Hypertension, Peripheral Vascular Neurological No Reproductive System Hx Reproductive Disorders: Yes (CERVICAL CANCER) Genitourinary Yes Bladder Infection Gastrointestinal Yes (MULTIPLE SURGERIES FOR PERF. COLON AND COLOSTOMY) Musculoskeletal Yes (RIGHT AKA FOR SEVERE PVD) Amputee Endocrine History of Endocrine Disorders: No HEENT History of HEENT Disorders: No Cancer Yes (CERVICAL CANCER 2003--S/P RADIATION IMPLANTS, CHEMO AND RADIATION) Cervical, Colon (has colostomy bag) Did You Recieve Any Treatments: Yes Type of Treatment: Chemotherapy, Radiation Psychosocial History of Psychiatric Problem: Yes Behavioral Health Disorders: Anxiety, Depression Integumentary History of Skin or Integumenta: No Blood Transfusions History of Blood Disorders: No Family Medical History Significant Family History: No Pertinent Family Hx Family Hx: Arthritis 19 MOTHER FH: heart failure G8 SISTER Hypertension 19 FATHER 19 MOTHER Review of Systems Constitutional: chills, fever EENTM: nose congestion, throat pain Respiratory: dyspnea on exertion Cardiovascular: no symptoms reported Gastrointestinal: loss of appetite, nausea, vomiting (not vomiting, but spitting up) Genitourinary: no symptoms reported Musculoskeletal: no symptoms reported Skin: other (bruise on R thumb) Psychiatric/Neurological: Anxiety, Depressed, Headache All Other Systems Reviewed Negative Unless Noted: Yes Physical Exam Vital Signs Vital Signs - First Documented Capillary Refill : Less Than 3 Seconds Height, Weight, BMI Height: 5'2.00" Weight: 126lbs. 9.0oz. 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 Right middle lobe pneumonia 2. Hypertension 3. Hypercholesterolemia 4. Emphysema 5. History of colon cancer 6. Colostomy 7. Right lower extremity amputation Plan: 1. Continue Duoneb and Albuterol breathing treatments started in the ER 2. Continue with 2g Cefepime IV started in ER 3. Continue Solu-Medrol 125mg 4. Sputum collection for organism if attainable 5. Consult Dr. Shah 6. Continue O2 for breathing assistance Problems: (1) Emphysema/COPD Status: Chronic Qualifiers: Qualified Codes: J43.9 - Emphysema, unspecified (2) Right middle lobe pneumonia Status: Acute Qualifiers: Qualified Codes: J18.1 - Lobar pneumonia, unspecified organism Admission Diagnosis Admission Status: Inpatient Order (span 2 midnights) Clinical Quality Measures DVT/VTE Risk/Contraindication: Risk Factor Score Per Nursin RFS Level Per Nursing on Admit: 4+=Very High MARYSOL NUÑEZ DO 12/05/18 2159: Allergies and Home Medications Allergies Coded Allergies: aspirin (Verified Allergy, Unknown, 09/09/05) codeine (Verified Allergy, Unknown, NO ALLERGY TO MORPHINE, 11/24/08) morphine (Verified Allergy, Unknown, 12/05/18) penicillin G (Verified Allergy, Unknown, 09/09/05) Uncoded Allergies: METALS (Allergy, Mild, RASHES, 05/22/06) Home Medications Amlodipine Besylate 10 Mg Tablet, 10 MG PO DAILY, (Reported) Cholecalciferol (Vitamin D3) 1,000 Unit Capsule, 1,000 UNIT PO DAILY, (Reported) Clopidogrel Bisulfate 75 Mg Tablet, 75 MG PO DAILY, (Reported) Diazepam 2 Mg Tablet, 2 MG PO DAILY PRN for ANXIETY, (Reported) Docusate Sodium 100 Mg Capsule, 100 MG PO DAILY, (Reported) Escitalopram Oxalate 10 Mg Tablet, 10 MG PO DAILY, (Reported) Folic Acid 1 Mg Tablet, 1 MG PO DAILY, (Reported) Lisinopril 20 Mg Tablet, 20 MG PO DAILY, (Reported) Montelukast Sodium 10 Mg Tablet, 10 MG PO DAILY, (Reported) Potassium Chloride 20 Meq Tab.er.prt, 20 MEQ PO DAILY, (Reported) LAST FILLED #90 18 Simvastatin 20 Mg Tablet, 40 MG PO HS, (Reported) TAKES 2 (20 MG) TABLETS Warfarin Sodium 1 Mg Tablet, 1 MG PO SuTuWeThSa@1900, (Reported) Warfarin Sodium 1 Mg Tablet, 2 MG PO MoFr@1900, (Reported) TAKES 2 (1MG) TABLETS Patient Home Medication List Home Medication List Reviewed: Yes Past Nnthogo-Xmnndd-Vuhoxl Hx Patient Social History Marrital Status: Employed/Student: retired Smoking Status: Current Everyday Smoker (1/2 pack per day since she was 20 (55 years)) Respiratory Yes COPD, Pneumonia Family Medical History Family Hx: Arthritis 19 MOTHER FH: heart failure G8 SISTER Hypertension 19 FATHER 19 MOTHER Review of Systems Constitutional: see HPI, fever, malaise, weakness Respiratory: cough, short of breath, wheezing Physical Exam General Appearance: No Apparent Distress, WD/WN, Chronically ill HEENT: PERRL/EOMI, TMs Normal, Normal ENT Inspection, Pharynx Normal Neck: Full Range of Motion, Normal Inspection, Non Tender, Supple, Carotid Bruit Respiratory: Crackles, Decreased Breath Sounds, Expiration, Rhonci, Wheezing Cardiovascular: Regular Rate, Rhythm, No Edema 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 I reviewed and verified all information documented by the medical student and made modifications to such information, when appropriate. I personally performed the physical exam and medical decision making. Marysol Nuñez, Dec 05, 2018,22:01 Problems: (1) Right middle lobe pneumonia Status: Acute Qualifiers: Qualified Codes: J18.1 - Lobar pneumonia, unspecified organism (2) Emphysema/COPD Status: Chronic Qualifiers: Qualified Codes: J43.9 - Emphysema, unspecified (3) Smoker (4) Hx of AKA (above knee amputation) (5) PVD (peripheral vascular disease) (6) CAD (coronary artery disease) (7) Warfarin anticoagulation (8) Hypertension (9) Hypoxia Status: Acute Admission Diagnosis Admission Status: Inpatient Order (span 2 midnights) Reason for Inpatient Admission: AECOPD will require IV steroids and abx for 3 days Supervisory-Addendum Brief Verification & Attestation Time: Verification & Attestat.: 15:00 Participated in pt care: history, physical Personally performed: exam, history Care discussed with: Medical Student Procedures: n/a Verification and Attestation of Medical Student E/M Service A medical student performed and documented this service in my presence. I reviewed and verified all information documented by the medical student and made modifications to such information, when appropriate. I personally performed the physical exam and medical decision making. Marysol Nuñez, Dec 05, 2018,22:02 ARACELI JONES, Dec 05, 2018 14:32 MARYSOL NUÑEZ DO Dec 05, 2018 21:59
[2018-12-05 15:20] VITALS: BP 105/64
[2018-12-05] MEDS ORDERED: RT-ALBUTEROL/IPRATROPIUM 3 ML (DUONEB) VIAL INH PRN (15:30)
[2018-12-05 16:12] VITALS: BP 126/58
[2018-12-05] MEDS ORDERED: CATHETER FLUSH 10 ML SYR IV PRN (17:30)
[2018-12-05] MEDS ORDERED: IOHEXOL 350 MG/ML 100 ML (OMNIPAQUE 350) VIAL IV ONE (17:30)
[2018-12-05] MEDS ORDERED: NS 100 ML (IVPB) BAG IV ONE (17:30)
[2018-12-05] MEDS ORDERED: HOLD METFORMIN - RECEIVED CONTRAST 20 ML VIAL IV SCH (17:30)
--- NOTE | 2018-12-05 17:32 | Diagnostic Imaging Report ---
PROCEDURE: CT chest with contrast only. TECHNIQUE: Multiple contiguous axial images were obtained through the chest after administration of intravenous contrast. Auto Exposure Controls were utilized during the CT exam to meet ALARA standards for radiation dose reduction. INDICATION: Suspicion for pneumonia. FINDINGS: There is peripheral infiltrate in the right middle lobe laterally as well as posteriorly in a perifissural distribution. Pneumonia suspected. Tiny nodule in the right upper lobe is subpleural and may be partly calcified. It is well-defined, 3 mm, benignity favored. No suspicious or spiculated mass. No thoracic lymphadenopathy. No effusion or pneumothorax. The aorta is atherosclerotic but nonaneurysmal. There is no evidence for central pulmonary arterial embolus. The visualized upper abdomen reveals gallstones with no acute upper abdominal abnormality. IMPRESSION: 1. Right middle lobe infiltrate suspect for pneumonia. No evidence for abscess, empyema or pleural fluid. No lymphadenopathy. Tiny 3 mm subpleural nodule in the right upper lobe. No suspicious mass. 2. Cholelithiasis noted incidentally with nonaneurysmal aortic atherosclerosis. Dictated by: Dictated on workstation # [id number]
[2018-12-05] MEDS: CEFEPIME 1,000 MG/SWFI 10 ML IV PUSH IV SCH ×2 (18:43)
[2018-12-05] MEDS: RT-ALBUTEROL/IPRATROPIUM 3 ML (DUONEB) VIAL INH SCH (19:18)
[2018-12-05 20:00] VITALS: BP 103/66
[2018-12-05] MEDS ORDERED: MELATONIN 3 MG TABLET PO PRN (22:00)
[2018-12-05] MEDS ORDERED: DIAZEPAM 2 MG (VALIUM) TAB PO PRN (22:00)
[2018-12-05] MEDS ORDERED: ALPRAZolam 0.25 MG (XANAX) TAB PO PRN (22:00)
[2018-12-05] MEDS ORDERED: DOCUSATE SODIUM 100 MG (COLACE) CAP PO PRN (22:00)
[2018-12-05] MEDS ORDERED: diphenhydrAMINE 25 MG TAB (BENADRYL) PO PRN (22:00)
[2018-12-05] MEDS ORDERED: fentaNYL INJECTION 100 MCG/2 ML AMP IVP PRN (22:00)
[2018-12-06] VITALS: BP 135/66
[2018-12-06] MEDS: methylPREDNISolone 40 MG/ML (Solu-MEDROL) VIAL IV SCH ×5 (00:06→23:43)
[2018-12-06] MEDS: CALCIUM CARBONATE 500 MG (TUMS) TAB.CHEW PO PRN ×2 (00:40→03:50)
[2018-12-06] MEDS: RT-ALBUTEROL/IPRATROPIUM 3 ML (DUONEB) VIAL INH SCH ×7 (03:12→22:26)
[2018-12-06] MEDS: CEFEPIME 1,000 MG/SWFI 10 ML IV PUSH IV SCH ×6 (03:50→18:30)
[2018-12-06 04:00] VITALS: BP 127/62
[2018-12-06 06:50] LABS: BASOPHILS % (AUTO) 0 % (0-10); EOSINOPHILS % (AUTO) 0 % (0-10); HEMATOCRIT 36 % (35-52); HEMOGLOBIN 12.2 G/DL (11.5-16.0); LYMPHOCYTES # (AUTO) 0.8 X 10^3 (1.0-4.0); LYMPHOCYTES % (AUTO) 8 % (12-44); MEAN CORPUSCULAR HEMOGLOBIN 30 PG (25-34); MEAN CORPUSCULAR HGB CONC 34 G/DL (32-36); MEAN CORPUSCULAR VOLUME 89 FL (80-99); MONOCYTES # (AUTO) 0.6 X 10^3 (0.0-1.0); MONOCYTES % (AUTO) 6 % (0-12); NEUTROPHILS # (AUTO) 8.6 X 10^3 (1.8-7.8); NEUTROPHILS % (AUTO) 87 % (42-75); PLATELET COUNT 185 10^3/uL (130-400); RED CELL DISTRIBUTION WIDTH 13.5 % (10.0-14.5); WHITE BLOOD COUNT 9.9 10^3/uL (4.3-11.0)
[2018-12-06 06:58] LABS: INR 4.2 (0.8-1.4); PROTHROMBIN TIME PATIENT 42.1 SEC (12.2-14.7)
[2018-12-06 07:17] LABS: ALBUMIN 3.5 GM/DL (3.2-4.5); BILIRUBIN,TOTAL 0.3 MG/DL (0.1-1.0); CALCIUM 10.1 MG/DL (8.5-10.1); CREATININE SERUM 0.99 MG/DL (0.60-1.30); PHOSPHORUS 1.7 MG/DL (2.3-4.7); POTASSIUM 3.1 MMOL/L (3.6-5.0); TOTAL PROTEIN 6.4 GM/DL (6.4-8.2)
[2018-12-06 07:19] VITALS: BP 125/55
[2018-12-06 07:20] LABS: MAGNESIUM 0.9 MG/DL (1.8-2.4)
[2018-12-06 07:36] LABS: BAND NEUTROPHILS 7 %; BASOPHILS % (MANUAL) 0 %; EOSINOPHILS % (MANUAL) 0 %; LYMPHOCYTES % (MANUAL) 4 %; MONOCYTES % (MANUAL) 3 %; NEUTROPHILS % (MANUAL) 86 %; RBC MORPH NORMAL
[2018-12-06] MEDS ORDERED: MAGNESIUM 1 GM/100 ML IVPB 200 ML IV ONE (07:44)
[2018-12-06] MEDS ORDERED: POTASSIUM PHOSPHATE INJ 30 MM in NS (IVPB) 250 ML IV ONE (08:00)
[2018-12-06] MEDS ORDERED: KCL 20 MEQ TAB (K-DUR) PO NR (08:00)
[2018-12-06] MEDS: MAGNESIUM 1 GM/100 ML IVPB 100 ML IV SCH ×4 (08:05→13:36)
--- NOTE | 2018-12-06 08:29 | Progress Note - Hospitalist ---
ARACELI JONES, 12/06/18 0829: Subjective HPI/CC On Admission Date Seen by Provider: Dec 06, 2018 Time Seen by Provider: 07:00 CC: fever and cough Subjective/Events-last exam HPI: Pt is admitted for right middle lobe pneumonia. Her general appearance looks much better today. She states her bowels are moving, denies any pain, and feels like she "can breathe better" and has "more energy". On examination, pt has expiratory wheezing bilaterally, but is much improved from the day before (12/05/2018). Chest CT results are back and demonstrate a right middle lobe pneumonia. There was no abscess, empyema, pleural fluid or lymphadenopathy noted. No masses noted, but a 3mm subpleural nodule in the right upper lobe was identified. There was incidental cholelithiasis with no aneurysmal aortic atherosclerosis. Review of Systems Pulmonary: Cough Cardiovascular: No: Chest Pain Gastrointestinal: No: Nausea, Vomiting Neurological: No: Weakness Focused Exam Lactate Level 12/05/18 09:52: Lactic Acid Level 1.20 Objective Exam Vital Signs Vital Signs Date Time Temp Pulse Resp B/P (MAP) Pulse Ox O2 Delivery O2 Flow Rate FiO2 12/06/18 07:24 95 Nasal Cannula 2.00 12/06/18 07:19 99.0 78 18 125/55 (78) 12/05/18 15:20 5 Capillary Refill : Less Than 3 Seconds General Appearance: No Apparent Distress, WD/WN, Chronically ill HEENT: PERRL/EOMI, TMs Normal, Normal ENT Inspection, Pharynx Normal Neck: Full Range of Motion, Normal Inspection, Non Tender, Supple, Carotid Bruit Respiratory: Crackles, Decreased Breath Sounds, Expiration, Rhonci, Wheezing Cardiovascular: Regular Rate, Rhythm, No Edema Gastrointestinal: Non Tender, Soft Back: Normal Inspection, No CVA Tenderness, No Vertebral Tenderness Extremity: 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 Radiology Review Chest CT results Assessment/Plan Assessment and Plan Assess & Plan/Chief Complaint Assessment: 1. Right middle lobe pneumonia 2. Hypertension 3. Hypercholesterolemia 4. Emphysema 5. History of colon cancer 6. Colostomy 7. Right lower extremity amputation Plan: 1. Continue Duoneb and Albuterol breathing treatments started in the ER 2. Continue with 1g Cefepime IV 3. Continue Solu-Medrol 125mg IV Diagnosis/Problems Diagnosis/Problems (1) Emphysema/COPD Status: Chronic Qualifiers: Qualified Codes: J43.9 - Emphysema, unspecified (2) Right middle lobe pneumonia Status: Acute Qualifiers: Qualified Codes: J18.1 - Lobar pneumonia, unspecified organism (3) CAD (coronary artery disease) Status: Chronic (4) PVD (peripheral vascular disease) (5) Hypertension (6) Warfarin anticoagulation (7) Hx of AKA (above knee amputation) (8) Smoker Clinical Quality Measures Admission Status Admission Dx Assessment: 1. Right middle lobe pneumonia 2. Hypertension 3. Hypercholesterolemia 4. Emphysema 5. History of colon cancer 6. Colostomy 7. Right lower extremity amputation Plan: 1. Continue Duoneb and Albuterol breathing treatments started in the ER 2. Continue with 2g Cefepime IV started in ER 3. Continue Solu-Medrol 125mg 4. Sputum collection for organism if attainable 5. Consult Dr. Shah 6. Continue O2 for breathing assistance DVT/VTE Risk/Contraindication: Risk Factor Score Per Nursin RFS Level Per Nursing on Admit: 4+=Very High MARYSOL SANTAMARIA DO 12/06/182146: Subjective Subjective/Events-last exam CT chest showed the pneumonia but a right upper lobe mass Expiratory wheezes continue but much improved Will hep-lock IV fluid PT and OT will be ordered to get out of bed Respiratory rate is much improved Bowels are moving Eating and drinking well Plan for discharge in the next day or two Magnesium low at 0.9 given 2 g of magnesium Review of Systems General: Fatigue Pulmonary: Cough Objective Exam General Appearance: No Apparent Distress, WD/WN, Chronically ill Respiratory: Crackles, Decreased Breath Sounds, Rales, Rhonci, Wheezing Neurologic/Psychiatric: Alert, Oriented x3, No Motor/Sensory Deficits, Normal Mood/Affect Assessment/Plan Assessment and Plan Assess & Plan/Chief Complaint Hold Coumadin Check labs in morning Nebs O2 Eval DC plan for tomorrow Supervisory-Addendum Brief Verification & Attestation Time: Verification & Attestat.: 10:00 Participated in pt care: history, physical Personally performed: exam Care discussed with: Medical Student Procedures: n/a Verification and Attestation of Medical Student E/M Service A medical student performed and documented this service in my presence. I reviewed and verified all information documented by the medical student and made modifications to such information, when appropriate. I personally performed the physical exam and medical decision making. Marysol Santamaria, Dec 06, 2018,21:46 ARACELI JONES, Dec 06, 2018 08:29 MARYSOL SANTAMARIA DO Dec 06, 2018 21:47
[2018-12-06] MEDS: CLOPIDOGREL 75 MG (PLAVIX) TABLET PO SCH (08:36)
[2018-12-06] MEDS: KCL 20 MEQ TAB (K-DUR) PO SCH (08:38)
[2018-12-06] MEDS: FOLIC ACID 1 MG TAB PO SCH (08:38)
[2018-12-06] MEDS: MONTELUKAST 10 MG (SINGULAIR) TAB PO SCH (08:38)
[2018-12-06] MEDS: lisINopril 20 MG (PRINIVIL) TABLET PO SCH (08:38)
[2018-12-06] MEDS: VITAMIN D3 1,000 UNITS (CHOLECALCIFEROL) TABLET PO SCH (08:38)
[2018-12-06] MEDS: SENNA W/DOCUSATE (SENOKOT S) TABLET PO SCH ×2 (08:38→20:16)
[2018-12-06] MEDS: amLODIPine 10 MG (NORVASC) TAB PO SCH (08:39)
[2018-12-06] MEDS: DOCUSATE SODIUM 100 MG (COLACE) CAP PO SCH (08:39)
[2018-12-06] MEDS ORDERED: NON-FORMULARY MEDICATION 1 EA EA (Escitalopram Oxalate 10 MG) PO SCH (09:00)
[2018-12-06] MEDS ORDERED: NON-FORMULARY MEDICATION 1 EA EA (Cholecalciferol (Vitamin D3) (Vitamin D3) 1,000 UNIT) PO SCH (09:00)
[2018-12-06] MEDS ORDERED: NON-FORMULARY MEDICATION 1 EA EA (Amlodipine Besylate 10 MG) PO SCH (09:00)
--- NOTE | 2018-12-06 10:48 | Pulmonary Progress Note ---
Subjective Time Seen by a Provider: 10:41 Subjective/Events-last exam No complications noted. Sepsis Event Evaluation Height, Weight, BMI Height: 5'2.00" Weight: 126lbs. 9.0oz. 57.320955mt; 23.2 BMI Method:Stated Focused Exam Lactate Level 12/05/18 09:52: Lactic Acid Level 1.20 Exam Exam Vital Signs Date Time Temp Pulse Resp B/P (MAP) Pulse Ox O2 Delivery O2 Flow Rate FiO2 12/06/18 07:24 95 Nasal Cannula 2.00 12/06/18 07:19 99.0 78 18 125/55 (78) 95 Nasal Cannula 2.00 12/06/18 04:00 98.2 89 14 127/62 (83) 93 Nasal Cannula 3.00 12/06/18 03:12 96 Nasal Cannula 3.00 12/06/18 00:00 98.2 75 16 135/66 (89) 94 Nasal Cannula 3.00 12/05/18 20:00 97.6 77 18 103/66 (78) 97 Nasal Cannula 3.00 12/05/18 20:00 98 Nasal Cannula 4.00 12/05/18 19:18 98 Nasal Cannula 4.00 12/05/18 16:12 98.7 85 18 126/58 (80) 96 Nasal Cannula 5.00 12/05/18 15:20 78 94 5 12/05/18 15:20 94 Nasal Cannula 5.00 12/05/18 12:16 99.1 88 20 105/64 94 Nasal Cannula 5.00 12/05/18 11:55 94 Nasal Cannula 5.00 12/05/18 11:42 99.7 94 22 124/59 (80) 98 Nasal Cannula 5.00 I & O 12/06/18 07:00 Intake Total 2322 ml Output Total 200 ml Balance 2122 ml Height & Weight Height: 5'2.00" Weight: 126lbs. 9.0oz. 57.854325di; 23.2 BMI Method:Stated General Appearance: No Apparent Distress, WD/WN, Chronically ill HEENT: PERRL/EOMI, Pharynx Normal Neck: Full Range of Motion, Non Tender, Supple Respiratory: Chest Non Tender, No Accessory Muscle Use, No Respiratory Distress, Crackles, Decreased Breath Sounds Cardiovascular: Regular Rate, Rhythm, No JVD, No Murmur Capillary Refill: Less Than 3 Seconds Gastrointestinal: normal bowel sounds, non tender, soft Extremity: Normal Capillary Refill, Normal Inspection Neurologic/Psychiatric: Alert, Oriented x3 Skin: Normal Color, Warm/Dry Lymphatic: No Adenopathy Results Lab Laboratory Tests 12/05/18 09:52 12/06/18 06:04 Assessment/Plan Assessment/Plan RML PNA -Continue Cefepime -Will need repeat CT scan 8 wks after discharge COPDAE -SVNS -Solumedrol tobacco use education VIVIENNE SMITH DO Dec 06, 2018 10:48
--- NOTE | 2018-12-06 11:48 | Physical Therapy Evaluation ---
PT Evaluation-General Medical Diagnosis Admission Date Dec 05, 2018 at 11:25 Medical Diagnosis: RML pneumonia/COPD Onset Date: Dec 05, 2018 Therapy Diagnosis Therapy Diagnosis: debiliyt/weakness Height/Weight Height (Feet): 5 Height (Inches): 2.00 Weight (Pounds): 126 Weight (Ounces): 9.0 Precautions Precautions/Isolations: Fall Prevention, Standard Precautions Weight Bear Status Right Lower Extremity: Right Left Lower Extremity: Left Weight Bearing/Tolerated Referral Physician: Rosalio Reason for Referral: Evaluation/Treatment Medical History Pertinent Medical History: COPD, HTN, PVD, Smoking Additional Medical History colon cancer with colostomy; AKA right secondary to PVD Current History EMS secondary to SOB (patient reports she felt it coming on) Reviewed History: Yes Social History Home: Single Level Current Living Status: Alone Entry Into Home: Ramp Prior/Core FIM Prior Level of Function Therapy Code Descriptions/Definitions Functional [place] Measure: 0=Not Assessed/NA 4=Minimal Assistance 1=Total Assistance 5=Supervision or Setup 2=Maximal Assistance 6=Modified [place] 3=Moderate Assistance 7=Complete [place] Therapy Quality Codes: 6 Independent with activity with or without an assistive device 5 Patient requires set up or clean up by helper. Patient completes activity by themselves 4 Supervision or touching assist (CGA). [place] provide cues , steadying assist 3 The helper provides less than half the effort to complete the activity 2 The helper provides more than half the effort to complete the activity 1 Dependent. The helper does all the effort to complete an activity 7 Patient refused to complete or attempt activity 9 The patient did not perform the activity before the current illness or injury 88 Not attempted due to Medical conditions or safety concerns Functional Abilities and Goals: Independent: Patient completed the activities by him/herself, with or without an assistive device, with no assistance from a helper. Needed Some Help: Patient needed partial assistance from another person to co mplete activities. Dependent: A helper completed the activities for the patient. Unknown: Not Applicable: Bed Mobility: 7 Transfers (B,C,W/C) (FIM): 7 Gait: 0 Stairs: 0 Wheelchair Mobility: 7 Prior Devices Use: Manual wheelchair non ambulatory PLOF per patient report and does not utilize FWW for transfers PT Evaluation-Current Subjective Patient is adamant that she perform all gross motor skills independently and for no one to touch her. Objective Patient Orientation: Normal For Age Problem Solving: Good Attachments: Oxygen, IV ROM/Strength ROM Lower Extremities right AKA/left WFL Strength Lower Extremities left LE 4-/5 grossly Integumentary/Posture Integumentary refer to nursing notes Bowel Incontinence: No Posture WFL Neuromuscular (Tone, Coordination, Reflexes) grossly intact Sensory Vision: Functional Hearing: Functional Sensation Right Lower Extremit: Impaired Sensation Left Lower Extremity: Impaired Transfers Therapy Code Descriptions/Definitions Functional [place] Measure: 0=Not Assessed/NA 4=Minimal Assistance 1=Total Assistance 5=Supervision or Setup 2=Maximal Assistance 6=Modified [place] 3=Moderate Assistance 7=Complete [place] Transfers (B, C, W/C) (FIM): 7 Scootin Rollin Supine to/from Sit: 7 Sit to/from Stand: 7 bed t/f WC(FIM only if WC use): 7 Balance Sitting Static: Normal Sitting Dynamic: Normal Standing Static: Normal Standing Dynamic: Normal Assessment/Needs 73 y.o. female, will be seen x 2 sessions to ensure safe transfers and mobility to return to home at maximum LOF. Patient has established w/c, ramp and all needs have been met at home prior. Rehab Potential: Fair PT Short Term Goals Short Term Goals Time Frame: Dec 07, 2018 Transfers (B,C,W/C) (FIM): 7 PT Plan Treatment/Plan Treatment Plan: Continue Plan of Care Treatment Plan: Education, Functional Activity Kristian, Functional Strength, Therapeutic Exercise, Transfers Treatment Duration: Dec 07, 2018 Frequency: 2 times per week Estimated Hrs Per Day: .25 hour per day Patient and/or Family Agrees t: Yes Safety Risks/Education Patient Education: Safety Issues Teaching Recipient: Patient Teaching Methods: Discussion Response to Teaching: Verbalize Understanding Discharge Recommendations Therapy D/C Recommendations: Home Independently Time/GCodes Time In: 1121 Time Out: 1130 Total Billed Treatment Time: 9 Total Billed Treatment 1 visit EVLowC 9 min SCOOTER RUIZ PT Dec 06, 2018 11:47
[2018-12-06 12:22] VITALS: BP 117/56
--- NOTE | 2018-12-06 12:52 | NUR ---
Initial visit: The pt shared experiences of being a colon cancer survivor. She is the eldest of 8 children, and the family has come together for family reunions in the past three years. She describes strong, meaningful relationships with her family. No spiritual affiliation or orthodox community at this time. Pt's family has zoroastrian viki background. Pt shared fond recollections of her grandparents and the teachings of their viki.
--- NOTE | 2018-12-06 14:15 | Occupational Therapy Eval ---
OT Evaluation-General/PLF Medical Diagnosis Admission Date Dec 05, 2018 at 11:25 Medical Diagnosis: RML pneumonia/COPD Onset Date: Dec 05, 2018 Therapy Diagnosis Therapy Diagnosis: impaired ADLs and mobiltt Height/Weight Height (Feet): 5 Height (Inches): 2.00 Weight (Pounds): 126 Weight (Ounces): 9.0 Precautions Precautions/Isolations: Fall Prevention, Standard Precautions Safety Interventions: None Referral Physician: Rosalio Referral Reason: Activity Tolerance, Self Care, Evaluation/Treatment, Strengthening/ROM Medical History Pertinent Medical History: COPD, HTN, PVD, Smoking Additional Medical History per H&P: "yair did not feel well and came in to the [facility] so she would not get worse. She began feeling badly yesterday (12/04/2018). Last night it worsened. She took her temperature and it was 101F. She took 2 Tylenol and that helped decrease her temperature. Her nose is congested. She does cough up sputum and it is white/villarreal in color. Chest aches when breathing from coughing. " Reviewed History: Yes Social History Home: Single Level Current Living Status: Alone Entry Into Home: Ramp ADL-Prior Level of Function Therapy Code Descriptions/Definitions Functional [place] Measure: 0=Not Assessed/NA 4=Minimal Assistance 1=Total Assistance 5=Supervision or Setup 2=Maximal Assistance 6=Modified [place] 3=Moderate Assistance 7=Complete [place] Therapy Quality Codes: 6 Independent with activity with or without an assistive device 5 Patient requires set up or clean up by helper. Patient completes activity by themselves 4 Supervision or touching assist (CGA). [place] provide cues , steadying assist 3 The helper provides less than half the effort to complete the activity 2 The helper provides more than half the effort to complete the activity 1 Dependent. The helper does all the effort to complete an activity 7 Patient refused to complete or attempt activity 9 The patient did not perform the activity before the current illness or injury 88 Not attempted due to Medical conditions or safety concerns Functional Abilities and Goals: Independent: Patient completed the activities by him/herself, with or without an assistive device, with no assistance from a helper. Needed Some Help: Patient needed partial assistance from another person to complete activities. Dependent: A helper completed the activities for the patient. Unknown: Not Applicable: ADL PLOF Comments independent PLOF with use of manual w/c. pt would perform stand pivot transfers for functional transfers. pt has grocery delivered to house, and children drive her to her doctors appointments. Self Care: Independent Functional Cognition: Independent Drive Self: No OT Current Status Subjective pt sitting EOB eating upon OT arrival. pt agreed to OT evaluation session. pt reports no pain. Mental Status/Objective Patient Orientation: Person, Place, Time, Situation, Normal For Age Current Glasses/Contacts: Yes Hearing Aids: No Dentures/Partials: No Hand Dominance: Right Upper Extremity ROM WNL Upper Extremity Coordination WNL Upper Extremity Sensation WNL Upper Extremity Strength 5/5 MMT ADL-Treatment Therapy Code Descriptions/Definitions Functional [place] Measure: 0=Not Assessed/NA 4=Minimal Assistance 1=Total Assistance 5=Supervision or Setup 2=Maximal Assistance 6=Modified [place] 3=Moderate Assistance 7=Complete [place] Therapy Quality Codes: 6 Independent with activity with or without an assistive device 5 Patient requires set up or clean up by helper. Patient completes activity by themselves 4 Supervision or touching assist (CGA). [place] provide cues , steadying assist 3 The helper provides less than half the effort to complete the activity 2 The helper provides more than half the effort to complete the activity 1 Dependent. The helper does all the effort to complete an activity 7 Patient refused to complete or attempt activity 9 The patient did not perform the activity before the current illness or injury 88 Not attempted due to Medical conditions or safety concerns OT Short Term Goals Short Term Goals Transfers (B,C,W/C) (FIM): 7 1=Demonstrate adherence to instructed precautions during ADL tasks. 2=Patient will verbalize/demonstrate understanding of assistive devices/modifications for ADL. 3=Patient will improve strength/tolerance for activity to enable patient to perform ADL's. OT Skilled Nursing Goals Patient Scheduling Coordinator Goals 1=Demonstrate adherence to instructed precautions during ADL tasks. 2=Patient will verbalize/demonstrate understanding of assistive devices/modifications for ADL. 3=Patient will improve strength/tolerance for activity to enable patient to perform ADL's. OT Education/Plan Problem List/Assessment Assessment: No Skilled OT Needs ID'd pt demo independence with ADLS (grooming, UB/LB dressing, toileting, and eating) and functional transfers (toilet transfers SPT) MOD I using BSC. pt does have BSC at home. OT services not indicated secondary to pt functioning at [facility]. pt agrees she is indep and does not required skilled intervention. d/c OT services at this time. pt is safe to return home from OT standpoint when medically stable. Discharge Recommendations Plan/Recommendations: Discontinue OT Therapy D/C Recommendations: Home Independently Treatment Plan/Plan of Care Treatment,Training & Education: Yes Treatment Duration: Dec 06, 2018 Frequency: 1 time per week (eval only ) Estimated Hrs Per Day: Other (eval only ) Rehab Potential: Fair Time/GCodes Start Time: 14:50 Stop Time: 15:05 Billed Treatment Time EVL 15 minutes GULSHAN [place] OT Dec 06, 2018 14:15
[2018-12-06] MEDS ORDERED: NS IV 500 ML 500 ML ONE (15:00)
[2018-12-06 16:00] VITALS: BP 129/69
[2018-12-06] MEDS ORDERED: warFARin 1 MG (COUMADIN) TAB PO SCH (19:00)
[2018-12-06 20:11] VITALS: BP 124/64
[2018-12-06] MEDS: ONDANSETRON 4 MG/2 ML (SDV) Z0FRAN IVP PRN (20:12)
[2018-12-06] MEDS ORDERED: SIMvastatin 20 MG (ZOCOR) TAB PO SCH (21:00)
[2018-12-07] VITALS: BP 122/62
[2018-12-07 00:02] LABS: ALBUMIN 3.4 GM/DL (3.2-4.5); BILIRUBIN,TOTAL 0.2 MG/DL (0.1-1.0); CALCIUM 9.5 MG/DL (8.5-10.1); CREATININE SERUM 1.04 MG/DL (0.60-1.30); MAGNESIUM 2.2 MG/DL (1.8-2.4); POTASSIUM 3.2 MMOL/L (3.6-5.0); TOTAL PROTEIN 6.2 GM/DL (6.4-8.2)
[2018-12-07] MEDS: RT-ALBUTEROL/IPRATROPIUM 3 ML (DUONEB) VIAL INH SCH ×3 (03:15→12:04)
[2018-12-07] MEDS: ONDANSETRON 4 MG/2 ML (SDV) Z0FRAN IVP PRN (03:53)
[2018-12-07] MEDS: CEFEPIME 1,000 MG/SWFI 10 ML IV PUSH IV SCH ×4 (03:54→11:26)
[2018-12-07 04:00] VITALS: BP 122/67
[2018-12-07] MEDS ORDERED: KCL 20 MEQ TAB (K-DUR) PO SCH (06:00)
[2018-12-07] MEDS ORDERED: MAGNESIUM 1 GM/100 ML IVPB 100 ML IV SCH (06:00)
[2018-12-07] MEDS ORDERED: POTASSIUM CL 10MEQ/50ML IVPB 50 ML IV SCH (06:00)
[2018-12-07 06:16] LABS: BASOPHILS % (AUTO) 0 % (0-10); EOSINOPHILS % (AUTO) 0 % (0-10); HEMATOCRIT 34 % (35-52); HEMOGLOBIN 11.4 G/DL (11.5-16.0); LYMPHOCYTES # (AUTO) 0.9 X 10^3 (1.0-4.0); LYMPHOCYTES % (AUTO) 7 % (12-44); MEAN CORPUSCULAR HEMOGLOBIN 30 PG (25-34); MEAN CORPUSCULAR HGB CONC 33 G/DL (32-36); MEAN CORPUSCULAR VOLUME 91 FL (80-99); MEAN PLATELET VOLUME 10.4 FL (7.4-10.4); MONOCYTES # (AUTO) 0.8 X 10^3 (0.0-1.0); MONOCYTES % (AUTO) 6 % (0-12); NEUTROPHILS % (AUTO) 87 % (42-75); PLATELET COUNT 205 10^3/uL (130-400); RED CELL DISTRIBUTION WIDTH 13.7 % (10.0-14.5); WHITE BLOOD COUNT 12.7 10^3/uL (4.3-11.0)
[2018-12-07] MEDS: methylPREDNISolone 40 MG/ML (Solu-MEDROL) VIAL IV SCH (06:23)
[2018-12-07 06:27] LABS: INR 3.2 (0.8-1.4)
[2018-12-07 06:37] LABS: CALCIUM 9.3 MG/DL (8.5-10.1); CREATININE SERUM 0.99 MG/DL (0.60-1.30); POTASSIUM 3.3 MMOL/L (3.6-5.0)
--- NOTE | 2018-12-07 06:43 | NUR ---
Patient is sitting upright in the bed during her SVN Breathing Tx; she is on RA and no signs of distress noted at this time.
[2018-12-07 07:30] VITALS: BP 122/57
--- NOTE | 2018-12-07 08:23 | Progress Note - Hospitalist ---
ARACELI JONES, 12/07/18 0823: Subjective HPI/CC On Admission Date Seen by Provider: Dec 07, 2018 Time Seen by Provider: 07:20 CC: fever and cough Subjective/Events-last exam Pt is feeling well today. She believes that she is going home today (12/07/18). Denies any pain. Ambulates on her own. Bowels are working well. No complaints at this time. Pt does state that she has grandchildren nearby that can help her around the house. A granddaughter comes to assist with cleaning and her grandson (who lives 6 blocks away) comes if she needs anything fixed. Had her breakfast this morning and took her potassium tablet. Lab results are 3.3. Taken off of fluids. On exam, she does have expiratory wheezing but much improved from prior. Focused Exam Lactate Level 12/05/18 09:52: Lactic Acid Level 1.20 Objective Exam Vital Signs Vital Signs Date Time Temp Pulse Resp B/P (MAP) Pulse Ox O2 Delivery O2 Flow Rate FiO2 12/07/18 07:30 97.8 80 18 122/57 (78) 93 Room Air 12/06/18 22:26 2.00 12/05/18 15:20 5 Capillary Refill : Less Than 3 Seconds General Appearance: No Apparent Distress, WD/WN, Chronically ill HEENT: PERRL/EOMI, TMs Normal, Normal ENT Inspection, Pharynx Normal Neck: Full Range of Motion, Normal Inspection, Non Tender, Supple, Carotid Bruit Respiratory: Crackles, Decreased Breath Sounds, Rales, Rhonci, Wheezing Cardiovascular: Regular Rate, Rhythm, No Edema Gastrointestinal: Non Tender, Soft Back: Normal Inspection, No CVA Tenderness, No Vertebral Tenderness Extremity: Other (+5/5 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 Assessment/Plan Assessment and Plan Assess & Plan/Chief Complaint Assessment: 1. Right middle lobe pneumonia 2. Hypertension 3. Hypercholesterolemia 4. Emphysema 5. History of colon cancer 6. Colostomy 7. Right lower extremity amputation Plan: 1. Continue antibiotics and Solu Medrol IV 2. Continue Duoneb and albuterol treatments 3. Continue home medications 4. Discharge if appropriate Diagnosis/Problems Diagnosis/Problems (1) Emphysema/COPD Status: Chronic Qualifiers: Qualified Codes: J43.9 - Emphysema, unspecified (2) Right middle lobe pneumonia Status: Acute Qualifiers: Qualified Codes: J18.1 - Lobar pneumonia, unspecified organism (3) CAD (coronary artery disease) Status: Chronic (4) PVD (peripheral vascular disease) (5) Hypertension (6) Warfarin anticoagulation (7) Hx of AKA (above knee amputation) (8) Smoker Clinical Quality Measures Admission Status Admission Dx Assessment: 1. Right middle lobe pneumonia 2. Hypertension 3. Hypercholesterolemia 4. Emphysema 5. History of colon cancer 6. Colostomy 7. Right lower extremity amputation Plan: 1. Continue Duoneb and Albuterol breathing treatments started in the ER 2. Continue with 2g Cefepime IV started in ER 3. Continue Solu-Medrol 125mg 4. Sputum collection for organism if attainable 5. Consult Dr. Shah 6. Continue O2 for breathing assistance DVT/VTE Risk/Contraindication: Risk Factor Score Per Nursin RFS Level Per Nursing on Admit: 4+=Very High MARYSOL SANTAMARIA DO 12/07/18 1051: Subjective Review of Systems General: Fatigue Objective Exam General Appearance: No Apparent Distress, WD/WN, Chronically ill Supervisory-Addendum Brief Verification & Attestation Time: Verification & Attestat.: 09:30 Participated in pt care: history, physical Personally performed: exam Care discussed with: Medical Student Procedures: n/a Verification and Attestation of Medical Student E/M Service A medical student performed and documented this service in my presence. I reviewed and verified all information documented by the medical student and made modifications to such information, when appropriate. I personally performed the physical exam and medical decision making. Marysol Santamaria, Dec 07, 2018,17:34 ARACELI JONES, Dec 07, 2018 08:23 MARYSOL SANTAMARIA DO Dec 07, 2018 10:51
--- NOTE | 2018-12-07 08:50 | Physical Therapy Progress Note ---
Therapy Progress Note Patient voices no concern or c/o and reports she desires to return to home on this date. She reports she is at her PLOF with bed mobility and transfers and declined continued PT due to this. PT to dismiss patient from services at this time. 1 visit (539) SCOOTER RUIZ PT Dec 07, 2018 08:50
[2018-12-07] MEDS: lisINopril 20 MG (PRINIVIL) TABLET PO SCH (08:53)
[2018-12-07] MEDS: VITAMIN D3 1,000 UNITS (CHOLECALCIFEROL) TABLET PO SCH (08:53)
[2018-12-07] MEDS: FOLIC ACID 1 MG TAB PO SCH (08:53)
[2018-12-07] MEDS: DOCUSATE SODIUM 100 MG (COLACE) CAP PO SCH (08:53)
[2018-12-07] MEDS: amLODIPine 10 MG (NORVASC) TAB PO SCH (08:53)
[2018-12-07] MEDS: CLOPIDOGREL 75 MG (PLAVIX) TABLET PO SCH (08:53)
[2018-12-07] MEDS: MONTELUKAST 10 MG (SINGULAIR) TAB PO SCH (08:53)
[2018-12-07] MEDS: SENNA W/DOCUSATE (SENOKOT S) TABLET PO SCH (08:56)
--- NOTE | 2018-12-07 08:57 | Pulmonary Progress Note ---
Subjective Time Seen by a Provider: 10:27 Subjective/Events-last exam No complications noted. Sepsis Event Evaluation Height, Weight, BMI Height: 5'2.00" Weight: 126lbs. 9.0oz. 57.611952me; 23.2 BMI Method:Stated Focused Exam Lactate Level 12/05/18 09:52: Lactic Acid Level 1.20 Exam Exam Vital Signs Date Time Temp Pulse Resp B/P (MAP) Pulse Ox O2 Delivery O2 Flow Rate FiO2 12/07/18 07:30 97.8 80 18 122/57 (78) 93 Room Air 12/07/18 06:38 95 Room Air 12/07/18 04:00 98.5 83 14 122/67 (85) 94 Room Air 12/07/18 03:16 94 Room Air 12/07/18 00:00 98.6 79 16 122/62 (82) 93 Room Air 12/06/18 22:26 97 Nasal Cannula 2.00 12/06/18 20:11 98.6 76 20 124/64 (84) 97 Room Air 12/06/18 20:00 98 Nasal Cannula 4.00 12/06/18 16:19 94 Nasal Cannula 2.00 12/06/18 16:00 99.0 80 20 129/69 (89) 96 Nasal Cannula 2.00 12/06/18 12:22 98.7 79 18 117/56 (76) 96 Nasal Cannula 2.00 I & O 12/07/18 07:00 Intake Total 4170 ml Output Total 350 ml Balance 3820 ml Height & Weight Height: 5'2.00" Weight: 126lbs. 9.0oz. 57.077122gj; 23.2 BMI Method:Stated General Appearance: No Apparent Distress, WD/WN HEENT: Normal ENT Inspection, Pharynx Normal Neck: Normal Inspection, Non Tender, Supple Respiratory: Chest Non Tender, No Accessory Muscle Use, No Respiratory Distress, Decreased Breath Sounds Cardiovascular: Regular Rate, Rhythm, No Murmur Capillary Refill: Less Than 3 Seconds Gastrointestinal: normal bowel sounds, non tender, soft Extremity: No Pedal Edema Neurologic/Psychiatric: Alert, Oriented x3 Skin: Normal Color, Warm/Dry Lymphatic: No Adenopathy Results Lab Laboratory Tests 12/05/18 09:52 12/06/18 06:04 12/06/18 23:38 12/07/18 05:54 Assessment/Plan Assessment/Plan RML PNA/UTI - Cefepime (started 12/05) - - Will plan on total 7 days IV/PO Abx -Will need repeat CT scan 8 wks after discharge COPDAE -SVNS -Solumedrol -- change to prednisone fast taper Hypokalemia -Replace tobacco use education HX of colon cancer VIVIENNE SMITH DO Dec 07, 2018 08:57
[2018-12-07] MEDS ORDERED: KCL 20 MEQ TAB (K-DUR) PO NR (10:45)
[2018-12-07] MEDS ORDERED: CEFD300C3 PO (10:48)
[2018-12-07] MEDS ORDERED: POTA-51 PO (10:48)
[2018-12-07] MEDS ORDERED: WARF1TAB82 PO (10:48)
[2018-12-07] MEDS ORDERED: PRED10TA22 PO (10:48)
--- NOTE | 2018-12-07 10:49 | Discharge Summary ---
Diagnosis/Chief Complaint Date of Admission Dec 05, 2018 at 11:25 Date of Discharge Discharge Date: Dec 07, 2018 Discharge Diagnosis (1) Emphysema/COPD Status: Chronic (2) Right middle lobe pneumonia Status: Acute (3) CAD (coronary artery disease) Status: Chronic (4) PVD (peripheral vascular disease) (5) Hypertension (6) Warfarin anticoagulation (7) Hx of AKA (above knee amputation) (8) Smoker Discharge Summary Discharge Physical Exam Allergies: Coded Allergies: aspirin (Verified Allergy, Unknown, 12/05/18) codeine (Verified Allergy, Unknown, NO ALLERGY TO MORPHINE, 11/24/08) morphine (Verified Allergy, Unknown, 12/05/18) penicillin G (Verified Allergy, Unknown, 09/09/05) Uncoded Allergies: METALS (Allergy, Mild, RASHES, 05/22/06) Vitals & I&Os Vital Signs Date Time Temp Pulse Resp B/P (MAP) Pulse Ox O2 Delivery O2 Flow Rate FiO2 12/07/18 13:25 80 18 122/57 93 Room Air 12/07/18 07:30 97.8 12/06/18 22:26 2.00 12/05/18 15:20 5 General Appearance: No Apparent Distress, WD/WN, Chronically ill Respiratory: Chest Non Tender, Lungs Clear, Normal Breath Sounds, No Accessory Muscle Use, No Respiratory Distress Cardiovascular: Regular Rate, Rhythm, No Edema, No Gallop, No JVD, No Murmur, Normal Peripheral Pulses Hospital Course Was the Problem List Reviewed?: Yes Hospital course: Patient had an uneventful hospital course when she was admitted for exacerbation of COPD with hypercapnia and hypoxia and consulted Dr. Shah. Patient responded to IV steroids and nebulizer treatments oxygen supplementation and overall improved rapidly. She is back to her baseline activity and was deemed stable for discharge. Labs (last 24 hrs) Laboratory Tests 12/06/18 23:38: Sodium Level 140, Potassium Level 3.2L, Chloride Level 109H, Carbon Dioxide Level 20L, Anion Gap 11, Blood Urea Nitrogen 12, Creatinine 1.04, Estimat Glomerular Filtration Rate 52, BUN/Creatinine Ratio 12, Glucose Level 147H, Calcium Level 9.5, Corrected Calcium 10.0, Phosphorus Level 3.0, Magnesium Level 2.2, Total Bilirubin 0.2, Aspartate Amino Transf (AST/SGOT) 9, Alanine Aminotransferase (ALT/SGPT) 9, Alkaline Phosphatase 61, Total Protein 6.2L, Albumin 3.4 12/07/18 05:54: Sodium Level 140, Potassium Level 3.3L, Chloride Level 108H, Carbon Dioxide Level 19L, Anion Gap 13, Blood Urea Nitrogen 12, Creatinine 0.99, Estimat Glomerular Filtration Rate 55, BUN/Creatinine Ratio 12, Glucose Level 144H, Calcium Level 9.3, Phosphorus Level 3.0, Magnesium Level 2.0, White Blood Count 12.7H, Red Blood Count 3.77L, Hemoglobin 11.4L, Hematocrit 34L, Mean Corpuscular Volume 91, Mean Corpuscular Hemoglobin 30, Mean Corpuscular Hemoglobin Concent 33, Red Cell Distribution Width 13.7, Platelet Count 205, Mean Platelet Volume 10.4, Neutrophils (%) (Auto) 87H, Lymphocytes (%) (Auto) 7L, Monocytes (%) (Auto) 6, Eosinophils (%) (Auto) 0, Basophils (%) (Auto) 0, Neutrophils # (Auto) 11.0H, Lymphocytes # (Auto) 0.9L, Monocytes # (Auto) 0.8, Eosinophils # (Auto) 0.0, Basophils # (Auto) 0.0, Prothrombin Time 34.0H, INR Comment 3.2H Microbiology 12/05/18 Blood Culture - Preliminary, Resulted No growth 12/05/18 Gram Stain - Final, Complete 12/05/18 Sputum Culture - Final, Complete Usual upper respiratory yuly 12/05/18 Urine Culture - Preliminary, Resulted Escherichia coli Patient resulted labs reviewed. Pending Labs Discussion & Recommendations Discharge Planning: <30 minutes discharge planning Discharge Home Medications: Active Scripts Active Potassium Chloride 20 Meq Tablet.er 20 Meq PO BID Prednisone 10 Mg Tab.ds.pk 10 Mg PO DAILY Take 6 tabs(60mg)daily,decrease by 1 tab(10MG)daily. Cefdinir 300 Mg Capsule 300 Mg PO BID Warfarin Sodium 1 Mg Tablet 1 Mg PO DAILY Reported Colace (Docusate Sodium) 100 Mg Capsule 100 Mg PO DAILY Vitamin D3 (Cholecalciferol (Vitamin D3)) 1,000 Unit Capsule 1,000 Unit PO DAILY Escitalopram Oxalate 10 Mg Tablet 10 Mg PO DAILY Diazepam 2 Mg Tablet 2 Mg PO DAILY PRN Lisinopril 20 Mg Tablet 20 Mg PO DAILY Simvastatin 20 Mg Tablet 40 Mg PO HS TAKES 2 (20 MG) TABLETS Amlodipine Besylate 10 Mg Tablet 10 Mg PO DAILY Clopidogrel (Clopidogrel Bisulfate) 75 Mg Tablet 75 Mg PO DAILY Montelukast Sodium 10 Mg Tablet 10 Mg PO DAILY Folic Acid 1 Mg Tablet 1 Mg PO DAILY Instructions to patient/family Please see electronic discharge instructions given to patient. Clinical Quality Measures Admission Status Admission Dx Verification and Attestation of Medical Student E/M Service A medical student performed and documented this service in my presence. I reviewed and verified all information documented by the medical student and made modifications to such information, when appropriate. I personally performed the physical exam and medical decision making. Marysol Santamaria, Dec 05, 2018,22:01 DVT/VTE Risk/Contraindication: Risk Factor Score Per Nursin RFS Level Per Nursing on Admit: 4+=Very High Problem Qualifiers (1) Emphysema/COPD: Emphysema type: unspecified Qualified Codes: J43.9 - Emphysema, unspecified (2) Right middle lobe pneumonia: Pneumonia type: due to unspecified organism Qualified Codes: J18.1 - Lobar pneumonia, unspecified organism MARYSOL SANTAMARIA DO Dec 07, 2018 10:49
--- NOTE | 2018-12-07 11:15 | NUR ---
ORDERS FOR POTASSIUM CLARIFIED WITH DR NUÑEZ. ORDER FOR HOME COUMADIN CLARIFIED WHEN PATIENT IS TO BEGIN TAKING. DR NUÑEZ GAVE VERBAL ORDERS FOR PT TO BEGIN TAKING THE PRESCRIBED LOWER DOSE THIS EVENING. PT WAS UPDATED ON THIS ALSO.
--- NOTE | 2018-12-07 11:17 | Progress Note - Hospitalist ---
ARACELI JONES, 12/07/18 1117: Progress Note CC: cough and temperature HPI: This is a 73 yo WF who presented to the [facility] 12/05/2018. She was not feeling well and decided to come in so she wouldn't get worse. She began feeling bad 12/04 and worsened that night. Her temperature was 101.F. She took two Tylenol which helped decrease temperature. Her nose is congested and she admits coughing up sputum that was white/villarreal in color. She complains of chest pain when coughing. 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 Fam Hx: HTN in both parents, mom had RA, father had cancer "that grew like a snake down his leg" ROS: Gen: chills, fever HEENT: small REEDER, congestion, sore throat CV: no chest pain or palpitations Respiratory: SOB on movement GI: nausea, no vomiting but small spit up, loss of appetite : no complaints MSK: no complaints, no weakness or pain Skin: bruise on right thumb Psych/Neuro: anxiety and depression in history Sees Anastasiia at [facility] and goes to the [facility] in [place] Exam: Vitals: 101.4F, HR 98, RR 22, BP 124/59 Gen: mild distress, cooperative, answered questions when asked, pleasant Lung: expiratory wheezes bilaterally, expiratory crackles CV: RRR, no murmurs or bruits 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 Right middle lobe pneumonia 2. Hypertension 3. Hypercholesterolemia 4. Emphysema 5. History of colon cancer 6. Colostomy 7. Right lower extremity amputation Plan: 1. Continue Duoneb and Albuterol breathing treatments started in the ER 2. Continue with 2g Cefepime IV started in ER 3. Continue Solu-Medrol 125mg 4. Sputum collection for organism if attainable 5. Consult Dr. Shah 6. Continue O2 for breathing assistance 12.06.19: Subjective: Ms. Pimentel feels much better today. She has a greatly increased general appearance and looks like she is feeling much better. Confirms bowels are moving and denies any pain. She believes she can breathe better and has much more energy. Chest CT demonstrates a right middle lobe pneumonia. There were no abscesses, empyemas, or pleural fluid noted. No lymphadenopathy. 3mm subpleural nodule in RUL but no masses. Cholelithiasis noted incidentally with no aneurysmal aortic atherosclerosis. Vitals: 98.2F, HR 89, RR 14, BP 127/62 On exam, expiratory wheezes were noted but much improved on auscultation. Assessment: 1. Right middle lobe pneumonia 2. Hypertension 3. Hypercholesterolemia 4. Emphysema 5. History of colon cancer 6. Colostomy 7. Right lower extremity amputation Plan: 1. Continue Duoneb and Albuterol breathing treatments started in the ER 2. Continue with 1g Cefepime IV 3. Continue Solu-Medrol 125mg IV 12.07.19: Subjective: Ms. Pimentel feels great today. Denies any pain. Is ambulatory and bowels are working fine. She would like to go home and has family that will take care of her. Her granddaughter helps clean her house and her grandson will come by to fix anything that is broken. Vitals: 98.5F, HR 83, RR 14, BP 122/67, 95% RA On exam her lungs sound much clearer than yesterday. Labs: low K+ at 3.3 but no other issues noted; CBC demonstrates a neutropenia. Assessment: 1. Right middle lobe pneumonia 2. Hypertension 3. Hypercholesterolemia 4. Emphysema 5. History of colon cancer 6. Colostomy 7. Right lower extremity amputation Plan: 1. Start oral antibiotics and oral prednisone 2. Continue Duoneb and albuterol treatments - have RT do an at home O2 evaluation 3. Continue home medications 4. Discharge MARYSOL NUÑEZ DO 12/07/18 1738: Supervisory-Addendum Brief Verification & Attestation Time: Verification & Attestat.: 10:30 Participated in pt care: history, physical Personally performed: exam Care discussed with: Medical Student Procedures: n/a Verification and Attestation of Medical Student E/M Service A medical student performed and documented this service in my presence. I reviewed and verified all information documented by the medical student and made modifications to such information, when appropriate. I personally performed the physical exam and medical decision making. Marysol Nuñez, Dec 07, 2018,17:38 ARACELI JONES, Dec 07, 2018 11:17 MARYSOL NUÑEZ DO Dec 07, 2018 17:38
[2018-12-07] MEDS: KCL 20 MEQ TAB (K-DUR) PO SCH (11:30)
[2018-12-07] MEDS ORDERED: predniSONE 10 MG TAB PO SCH (12:00)
--- NOTE | 2018-12-07 12:03 | NUR ---
Patient has been on RA today: Patient has one leg amputated above the knee; she moved from the bed to the commode and then to a chair and then moved over to the cabinet and stood up and sat back down in the chair and then over to the commode and back to the bed. Patient had no issues with her oxygenation and was on RA the whole 6 mins and did not drop below 90%.
[2018-12-07 13:25] VITALS: BP 122/57
[2018-12-07] MEDS ORDERED: warFARin 1 MG (COUMADIN) TAB PO SCH (19:00)
== END 2018-12-07 13:25 | disposition home or self-care (01) | DRG 190 ==
LOC: EDUNIT# 09:44 → ER 09:45 → 4TH 11:25
PROVIDERS: ADMIT Internal Medicine; ATTEND Internal Medicine
DX: J43.9 Emphysema, unspecified (principal); J18.1 Lobar pneumonia, unspecified organism; N39.0 Urinary tract infection, site not specified; I10 Essential (primary) hypertension; E78.00 Pure hypercholesterolemia, unspecified; I73.9 Peripheral vascular disease, unspecified; F32.9 Major depressive disorder, single episode, unspecified; F17.210 Nicotine dependence, cigarettes, uncomplicated; K59.00 Constipation, unspecified; I25.10 Atherosclerotic heart disease of native coronary artery without angina pectoris; F41.9 Anxiety disorder, unspecified; Z92.21 Personal history of antineoplastic chemotherapy; Z92.3 Personal history of irradiation; Z79.01 Long term (current) use of anticoagulants; Z89.611 Acquired absence of right leg above knee; Z86.718 Personal history of other venous thrombosis and embolism; Z93.3 Colostomy status; E87.6 Hypokalemia; Z85.038 Personal history of other malignant neoplasm of large intestine
CPT/HCPCS: 36415; 71045; 71260; 80048; 80053; 81000; 83605; 83735; 84100; 84484; 85007; 85025; 85027; 85610; 85730; 87040; 87070; 87077; 87088; 87186; 87205; 93005; 94640; 94760; 94761; 96361; 96374; 96375

== ENCOUNTER → 2019-02-06 | Outpatient (CLI) | payer MEDICARE, OTHER ==
[~2019-02-06] MED LIST changes: +CEFD300C3 PO; +CHOL10007 PO; +DIAZ2TAB2 PO; +DOCU-143 PO; +ESCI10TA55 PO; +LISI-552 PO; +POTA-51 PO; +POTA20TA15 PO; +PRED10TA22 PO
[2019-02-06 10:42] LABS: CREATININE SERUM 1.25 MG/DL (0.60-1.30)
--- NOTE | 2019-02-06 12:10 | Diagnostic Imaging Report ---
EXAMINATION: CT Chest without contrast. TECHNIQUE: Multiple contiguous axial images were obtained through the chest without the use of intravenous contrast. All CT scans use one or more of the following dose optimizing techniques: automated exposure control, MA and/or KvP adjustment based on a patient size and exam type, or iterative reconstruction. HISTORY: Cough FINDINGS: Comparison is 30 05/27/2018 There is collapse of the right middle lobe. There are air bronchograms with varicoid dilation of the bronchi. No obstructing lesion is seen. Remaining lungs are clear without edema or pneumonia. No pleural effusion or pneumothorax. No suspicious nodules. Heart size is normal. No pericardial effusion. Aorta is normal in caliber. There is no axillary, supraclavicular or mediastinal lymphadenopathy. A right axillofemoral bypass graft is partially visualized Gallstones are seen within the gallbladder. There are no suspicious osseus lesions. IMPRESSION: 1. 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 No obstructing lesion is seen. Dictated by: Dictated on workstation # [id number]
== END ==
LOC: RAD 09:31
PROVIDERS: ATTEND Nurse Practitioner Family
DX: J98.19 Other pulmonary collapse (principal); J47.9 Bronchiectasis, uncomplicated; I73.9 Peripheral vascular disease, unspecified; J18.1 Lobar pneumonia, unspecified organism; J30.9 Allergic rhinitis, unspecified; Z72.0 Tobacco use
CPT/HCPCS: 36415; 71250; 82565; 84520

== ENCOUNTER → 2019-02-08 | Outpatient (CLI) | payer MEDICARE, OTHER ==
[~2019-02-08] MED LIST changes: +RT-ALBUTEROL SULF 2.5 MG/3 ML PRE-MIX VIAL INH ONE; +RT-ALBUTEROL SULF 2.5 MG/3 ML PRE-MIX VIAL ONE
== END ==
LOC: RT 09:18
PROVIDERS: ATTEND Nurse Practitioner Family
DX: J44.9 Chronic obstructive pulmonary disease, unspecified (principal); I73.9 Peripheral vascular disease, unspecified; J18.0 Bronchopneumonia, unspecified organism; J30.9 Allergic rhinitis, unspecified; Z72.0 Tobacco use
CPT/HCPCS: 94060; 94726; 94729

== ENCOUNTER → 2019-02-12 | Outpatient (CLI) | payer MEDICARE, OTHER ==
[~2019-02-12] MED LIST changes: -RT-ALBUTEROL SULF 2.5 MG/3 ML PRE-MIX VIAL INH ONE; -RT-ALBUTEROL SULF 2.5 MG/3 ML PRE-MIX VIAL ONE
[2019-02-12 14:57] LABS: ABG OXYGEN SATURATION 98 % (94-100); ABG PCO2 28 MMHG (35-45); ABG PH 7.42 (7.37-7.43); ABG PO2 84 MMHG (79-93); ABG TCO2 18.7 MMOL/L (21.0-31.0)
[2019-02-12 15:00] LABS: ALLENS TEST YES-POS; INSPIRED O2 ROOM AIR; PATIENT TEMP 36.6; VENTILATOR NO
== END ==
LOC: RT 14:24
PROVIDERS: ATTEND Nurse Practitioner Family
DX: J44.9 Chronic obstructive pulmonary disease, unspecified (principal)
CPT/HCPCS: 82805

== ENCOUNTER 2019-02-27 05:29 | Outpatient (CLI) | payer MEDICARE, OTHER ==
[~2019-02-27] VITALS: Ht 157.5 cm; Wt 56.8 kg
[2019-02-27] MEDS ORDERED: POTA20TA15 PO (10:56)
[2019-02-27] MEDS ORDERED: FLUT9.9S NSEACH (10:56)
[2019-02-27] MEDS ORDERED: FLUT1BLS3 IH (10:56)
[2019-02-27] MEDS ORDERED: CETI10TA17 PO (10:56)
[2019-02-27] MEDS ORDERED: WARF1TAB82 PO (10:56)
== END 2019-02-27 10:59 | disposition home or self-care (01) ==
LOC: PREOP 05:29
PROVIDERS: ATTEND Internal Medicine Critical Care Medicine
DX: Z01.818 Encounter for other preprocedural examination (principal)

== ENCOUNTER → 2019-09-11 | Outpatient (CLI) | payer MEDICARE, OTHER ==
[~2019-09-11] MED LIST changes: +CETI10TA17 PO; +FLUT1BLS3 IH; +FLUT9.9S NSEACH; +HOLD METFORMIN - RECEIVED CONTRAST 20 ML VIAL IV SCH; +IOHEXOL 350 MG/ML 100 ML (OMNIPAQUE 350) VIAL IV ONE; -MONT10TA24 PO; +MONT10TA26 PO; +NS 100 ML (IVPB) BAG IV ONE; +SIMV20TA26 PO; -SIMV20TA3 PO
[2019-09-11 09:57] LABS: CREATININE SERUM 0.97 MG/DL (0.60-1.30)
--- NOTE | 2019-09-11 10:48 | Diagnostic Imaging Report ---
PROCEDURE: CT chest with contrast only. TECHNIQUE: Multiple contiguous axial images were obtained through the chest after administration of intravenous contrast. Auto Exposure Controls were utilized during the CT exam to meet ALARA standards for radiation dose reduction. INDICATION: Allergic rhinitis. Comparison is made to previous studies of 02/06/2019 and 12/05/2018. FINDINGS: There is continued chronic infiltrate and/or scarring in the right middle lobe and lingula as well as basilar aspects of both lower lobes. Mild background centrilobular emphysema is present. There is no evidence of new mass or infiltrate. No significant pleural or pericardial fluid is identified. There is no evidence of pathologic adenopathy. Several calcified granulomas are present in both lungs. Coronary artery calcification is present with aortic atherosclerotic disease. IMPRESSION: Probable chronic infiltrate or scarring in the lungs bilaterally. There is no CT evidence of acute abnormality or adverse change. Dictated by: Dictated on workstation # [id number]
== END ==
LOC: RAD 09:22
PROVIDERS: ATTEND Nurse Practitioner Family
DX: J44.9 Chronic obstructive pulmonary disease, unspecified (principal); J98.11 Atelectasis; J30.9 Allergic rhinitis, unspecified; Z72.0 Tobacco use
CPT/HCPCS: 36415; 71260; 82565; 84520

== ENCOUNTER → 2020-03-19 | Outpatient (CLI) | payer MEDICARE, OTHER ==
[~2020-03-19] MED LIST changes: +AMLO-251 PO; -AMLO10TA7 PO; +CATHETER FLUSH 10 ML SYR IV PRN; -WARF1TAB82 PO; +WRF1T PO
--- NOTE | 2020-03-19 17:00 | Diagnostic Imaging Report ---
PROCEDURE: CT chest with contrast only. TECHNIQUE: Multiple contiguous axial images were obtained through the chest after administration of intravenous contrast. Auto Exposure Controls were utilized during the CT exam to meet ALARA standards for radiation dose reduction. INDICATION: COPD The prior CT chest exam of 09/11/2019 suggests a chronic infiltrate and/or scarring involving the lung bases. There is no acute cardiopulmonary abnormality noted. On this study there continued to be coarse interstitial densities and fibrotic changes involving each lower lobe. The stellate area of scar formation in the anterior aspect of the right middle lobe seen previously is also again evident and no different. Emphysematous changes involving both lungs are noted as well. There is still no sign of failure, pneumonia or a pleural effusion to suggest an acute abnormality. The heart is enlarged but stable when compared to the prior study. Coronary artery calcifications are again noted. The aorta is not abnormally dilated and there is no sign of dissection. There is no defect within the pulmonary arteries to indicate a pulmonary embolus. There is no mediastinal or hilar adenopathy. The area of low density in the right lobe of thyroid seen previously is again evident and does not appear to have changed. The thyroid gland itself is otherwise unremarkable. There is no obvious breast mass. Surgical clips are again seen the right supraclavicular region and there is a radiopaque tubular structure extending from the right supraclavicular region along the periphery of the right thorax. This finding seems similar to the prior exam. The sections through the upper abdomen show that the liver is of lower density than usually seen. This does suggest fatty metamorphosis. There is also cholelithiasis without evidence for acute cholecystitis. The bone windows show no sign of a fracture or for destructive lesion. IMPRESSION: 1. The chronic pulmonary changes seen on the prior study are again evident and do not seem to have changed significantly. There is still no evidence for an acute cardiopulmonary abnormality. 2. There is cardiomegaly and coronary artery disease. 3. The minute area of low density in the right lobe of thyroid appears stable. This is most likely a benign process. If further study is desired, ultrasound would be recommended. 4. The postsurgical changes in the right supraclavicular region and the radiopaque tubing extending along the right bony thorax seen previously are again evident and no different. 5. There is fatty metamorphosis of the liver and cholelithiasis. Dictated by: Dictated on workstation # [id number]
== END ==
LOC: RAD 14:15
PROVIDERS: ATTEND Nurse Practitioner Family
DX: J44.9 Chronic obstructive pulmonary disease, unspecified (principal); J18.0 Bronchopneumonia, unspecified organism; F17.210 Nicotine dependence, cigarettes, uncomplicated
CPT/HCPCS: 36415; 71260; 82565; 84520

== ENCOUNTER 2021-06-30 11:30 | Emergency (ER) | payer MEDICARE, OTHER ==
[~2021-06-30] VITALS: Ht 157 cm; Wt 58.9 kg
[~2021-06-30 11:30] MED LIST changes: -CATHETER FLUSH 10 ML SYR IV PRN; +ESCI-2 PO; -ESCI10TA55 PO; -FOLI1TAB24 PO; +FOLI1TAB33 PO; -HOLD METFORMIN - RECEIVED CONTRAST 20 ML VIAL IV SCH; -IOHEXOL 350 MG/ML 100 ML (OMNIPAQUE 350) VIAL IV ONE; -LISI-552 PO; -LISI10TA2 PO; +LISI10TA25 PO; +LISI20TA26 PO; +MONT-40 PO; -MONT10TA26 PO; -NS 100 ML (IVPB) BAG IV ONE; +POTA-169 PO; +POTA-179 PO; -POTA20TA15 PO; -POTA20TA8 PO
[2021-06-30] MEDS ORDERED: NS IV 1000 ML 1,000 ML IV SCH (11:45)
[2021-06-30] MEDS ORDERED: CEFEPIME INJECTION 1,000 MG in NS (IVPB) 50 ML IV ONE (11:45)
--- NOTE | 2021-06-30 11:46 | ED Abdominal Pain ---
General Stated Complaint: DIZZY Source of Information: Patient Exam Limitations: No Limitations (CELY RAO) History of Present Illness Date Seen by Provider: Jun 30, 2021 Time Seen by Provider: 11:44 Initial Comments Patient is a 76-year-old female who presents ED with weakness for the past week. Patient lives at home. She is above right knee amputation. History of cervical cancer. States difficulty getting around. She does use a wheelchair. Today started feeling dizzy and slid into the bathtub. EMS was contacted. Was found to be hypotensive. Patient went to [facility] on Monday diagnosed with UTI. Was placed on antibiotics. She believes she is on Cipro. Currently on warfarin. History of blood clots. She reports mild cough but states this is due to her allergies. No fever, vomiting, diarrhea. She has a rash to her right groin di agnosed with yeast infection. Was given topical antifungal. She reports burning with urination with frequent urination. Denies chest pain, shortness of breath, headache, visual changes. She reports generalized weakness at this time. Patient was found to have a blood pressure of ninety systolic. History of hypertension currently on medication. (CELY RAO) Allergies and Home Medications Allergies Coded Allergies: aspirin (Verified Allergy, Unknown, 12/05/18) codeine (Verified Allergy, Unknown, NO ALLERGY TO MORPHINE, 11/24/08) morphine (Verified Allergy, Unknown, 12/05/18) penicillin G (Verified Allergy, Unknown, 09/09/05) Uncoded Allergies: METALS (Allergy, Mild, RASHES, 05/22/06) Patient Home Medication List Home Medication List Reviewed: Yes (CELY RAO) Amlodipine Besylate (Amlodipine Besylate) 10 Mg Tablet, 10 MG PO DAILY, (Reported) Entered as Reported by: JULES ALLRED on 10/29/16 0248 Cetirizine HCl (Cetirizine HCl) 10 Mg Tablet, 10 MG PO DAILY, (Reported) Entered as Reported by: ESTRELLITA PETERSON on 02/27/19 1056 Cholecalciferol (Vitamin D3) (Vitamin D3) 1,000 Unit Capsule, 1,000 UNIT PO DAILY, (Reported) Entered as Reported by: ANN MEDRANO on 12/05/18 1302 Clopidogrel Bisulfate (Clopidogrel) 75 Mg Tablet, 75 MG PO DAILY, (Reported) Entered as Reported by: JULES ALLRED on 10/29/16 024 Diazepam (Diazepam) 2 Mg Tablet, 2 MG PO DAILY PRN for ANXIETY, (Reported) Entered as Reported by: ANN MEDRANO on 12/05/18 125 Docusate Sodium (Colace) 100 Mg Capsule, 100 MG PO DAILY, (Reported) Entered as Reported by: ANN MEDRANO on 12/05/18 1302 Escitalopram Oxalate (Escitalopram Oxalate) 10 Mg Tablet, 10 MG PO DAILY, (Reported) Entered as Reported by: ANN MEDRANO on 12/05/18 1252 Fluticasone Propionate (Flonase Allergy Relief) 9.9 Ml [place].susp, 1 SPRAY NSEACH DAILY, (Reported) Entered as Reported by: ESTRELLITA PETERSON on 02/27/19 1056 Fluticasone/Umeclidin/Vilanter (Trelegy Ellipta 100-62.5-25) 1 Each Blst.w.dev, 1 EACH IH DAILY, (Reported) Entered as Reported by: ESTRELLITA PETERSON on 02/27/19 1056 Folic Acid (Folic Acid) 1 Mg Tablet, 1 MG PO DAILY, (Reported) Entered as Reported by: JULES ALLRED on 10/29/16247 Lisinopril (Lisinopril) 20 Mg Tablet, 20 MG PO DAILY, (Reported) Entered as Reported by: ANN MEDRANO on 12/05/18 1252 Montelukast Sodium (Montelukast Sodium) 10 Mg Tablet, 10 MG PO HS, (Reported) Entered as Reported by: JULES ALLRED on 10/29/16 024 Potassium Chloride (Potassium Chloride) 20 Meq Tab.er.prt, 20 MEQ PO DAILY, (Reported) Entered as Reported by: ESTRELLITA PETERSON on 02/27/19 1056 Simvastatin (Simvastatin) 20 Mg Tablet, 40 MG PO HS, (Reported) Entered as Reported by: JULES ALLRED on 10/29/16 024 Warfarin Sodium (Warfarin Sodium) 1 Mg Tablet, 1 MG PO DAILY, (Reported) Entered as Reported by: ESTRELLITA PETERSON on 02/27/19 1056 Review of Systems Review of Systems Constitutional: No chills, No diaphoresis EENTM: No Eye Pain, No Ear Pain, No Mouth Pain, No Mouth Swelling, No Throat Pain, No Throat Swelling Respiratory: Denies Shortness of Air, Denies SOA With Exertion, Denies SOA at Rest Cardiovascular: Denies Chest Pain Gastrointestinal: Denies Abdominal Pain, Denies Constipated, Denies Diarrhea, Denies Nausea, Denies Vomiting Genitourinary: Burning, Frequency, Pain, Urgency Musculoskeletal: No back pain, No joint pain Skin: change in color, rash (CELY RAO) All Other Systems Reviewed Negative Unless Noted: Yes (CELY RAO) Past Cyuwcew-Trhkgo-Esfqgq Hx Seasonal Allergies Seasonal Allergies: Yes (CELY RAO) Past Medical History Surgeries: Yes (ILEOSTOMY,COLOSTOMY, R AKA) Abdominal, Appendectomy, Bowel Surgery, Orthopedic, Vascular Surgery Respiratory: Yes Pneumonia, Chronic Bronchitis, COPD Cardiac: Yes (SEVERE PVD--RIGHT AKA) High Cholesterol, Hypertension, Peripheral Vascular Neurological: No Reproductive Disorders: Yes (CERVICAL CANCER) Genitourinary: Yes Bladder Infection Gastrointestinal: Yes (MULTIPLE SURGERIES FOR PERF. COLON AND COLOSTOMY) Musculoskeletal: Yes (RIGHT AKA FOR SEVERE PVD) Amputee Endocrine: No HEENT: No Cancer: Yes (CERVICAL CANCER 2003--S/P RADIATION IMPLANTS, CHEMO AND RADIATION) Cervical, Colon Did You Recieve Any Treatments: Yes What Type of Treatment Did You: Chemotherapy, Radiation Psychosocial: Yes Anxiety, Depression Integumentary: No Blood Disorders: No (CELY RAO) Family Medical History Arthritis 19 MOTHER FH: heart failure G8 SISTER Hypertension 19 FATHER 19 MOTHER No Pertinent Family Hx (CELY RAO) Physical Exam Vital Signs Vital Signs - First Documented 06/30/21 11:53 Temp 35.6 Pulse 72 Resp 16 B/P (MAP) 84/34 (51) Pulse Ox 99 (SERAFIN ANTONIO MD) Vital Signs Capillary Refill : (CELY RAO) Height/Weight/BMI Height: 5'2.00" Weight: 126lbs. 9.0oz. 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, no motor/sensory deficits, alert, normal mood/affect, oriented x 3 Skin: other (Erythematous satellite lesions noted to the right groin.) (CELY RAO) Focused Exam Lactate Level 06/30/21 11:53: Lactic Acid Level 1.73 (SERAFIN ANTONIO MD) Lactic Acid Level Laboratory Tests Test 06/30/21 11:53 Lactic Acid Level 1.73 MMOL/L (0.50-2.00) (SERAFIN ANTONIO MD) Progress/Results/Core Measures Results/Orders Lab Results Laboratory Tests Test 06/30/21 11:53 06/30/21 12:31 06/30/21 13:15 Range/Units White Blood Count 9.1 4.3-11.0 10^3/uL Red Blood Count 3.53 L 3.80-5.11 10^6/uL Hemoglobin 11.1 L 11.5-16.0 g/dL Hematocrit 34 L 35-52 % Mean Corpuscular Volume 95 80-99 fL Mean Corpuscular Hemoglobin 31 25-34 pg Mean Corpuscular Hemoglobin Concent 33 32-36 g/dL Red Cell Distribution Width 13.1 10.0-14.5 % Platelet Count 250 130-400 10^3/uL Mean Platelet Volume 10.0 9.0-12.2 fL Immature Granulocyte % (Auto) 1 % Neutrophils (%) (Auto) 65 42-75 % Lymphocytes (%) (Auto) 25 12-44 % Monocytes (%) (Auto) 8 0-12 % Eosinophils (%) (Auto) 1 0-10 % Basophils (%) (Auto) 1 0-10 % Neutrophils # (Auto) 5.9 1.8-7.8 10^3/uL Lymphocytes # (Auto) 2.2 1.0-4.0 10^3/uL Monocytes # (Auto) 0.8 0.0-1.0 10^3/uL Eosinophils # (Auto) 0.1 0.0-0.3 10^3/uL Basophils # (Auto) 0.1 0.0-0.1 10^3/uL Immature Granulocyte # (Auto) 0.1 0.0-0.1 10^3/uL Prothrombin Time 34.0 H 12.2-14.7 SEC INR Comment 3.3 H 0.8-1.4 Activated Partial Thromboplast Time 56 H 24-35 SEC Sodium Level 129 L 135-145 MMOL/L Potassium Level 4.1 3.6-5.0 MMOL/L Chloride Level 109 H 98-107 MMOL/L Carbon Dioxide Level 9 *L 21-32 MMOL/L Anion Gap 11 5-14 MMOL/L Blood Urea Nitrogen 48 H 7-18 MG/DL Creatinine 4.99 H 0.60-1.30 MG/DL Estimat Glomerular Filtration Rate 9 BUN/Creatinine Ratio 10 Glucose Level 123 H 70-105 MG/DL Lactic Acid Level 1.73 0.50-2.00 MMOL/L Calcium Level 8.5 8.5-10.1 MG/DL Corrected Calcium 8.9 8.5-10.1 MG/DL Total Bilirubin 0.5 0.1-1.0 MG/DL Aspartate Amino Transf (AST/SGOT) 15 5-34 U/L Alanine Aminotransferase (ALT/SGPT) 8 0-55 U/L Alkaline Phosphatase 75 40-136 U/L Troponin I < 0.028 <0.028 NG/ML Total Protein 6.5 6.4-8.2 GM/DL Albumin 3.5 3.2-4.5 GM/DL Influenza Type A (RT-PCR) Not Detected Not Detecte Influenza Type B (RT-PCR) Not Detected Not Detecte SARS-CoV-2 RNA (RT-PCR) Not Detected Not Detecte Urine Color YELLOW Urine Clarity CLEAR Urine pH 6.0 5-9 Urine Specific [place] <=1.005 1.016-1.022 Urine Protein TRACE H NEGATIVE Urine Glucose (UA) NEGATIVE NEGATIVE Urine Ketones NEGATIVE NEGATIVE Urine Nitrite NEGATIVE NEGATIVE Urine Bilirubin NEGATIVE NEGATIVE Urine Urobilinogen 0.2 < = 1.0 MG/DL Urine Leukocyte Esterase 2+ H NEGATIVE Urine RBC (Auto) 3+ H NEGATIVE Urine RBC NONE /HPF Urine WBC 25-50 H /HPF Urine Squamous Epithelial Cells 10-25 H /HPF Urine Renal Epithelial Cells NONE /HPF Urine Crystals NONE /LPF Urine Bacteria NEGATIVE /HPF Urine Casts NONE /LPF Urine Mucus NEGATIVE /LPF Urine Culture Indicated CULTURE PENDING (SERAFIN ANTONIO MD) Medications Given in ED Current Medications Medications Dose Ordered Sig/Christiano Route Start Time Stop Time Status Last Admin Dose Admin Cefepime HCl 1000 mg/Sodium Chloride 50 ml @ 100 mls/hr ONCE ONCE IV 06/30/21 11:45 06/30/21 12:14 DC 06/30/21 13:20 100 MLS/HR (SERAFIN ANTONIO MD) Vital Signs/I&O 06/30/21 06/30/21 11:53 16:14 Temp 35.6 Pulse 72 76 Resp 16 18 B/P (MAP) 84/34 (51) 105/74 Pulse Ox 99 98 (SERAFIN ANTONIO MD) Departure Communication (Admissions) Patient with dizziness, lightheadedness and weakness. History of cervical cancer 2003. Radiation resulted in complication with bowel perforation requiring colostomy. Vascular complications requiring revascularization. She developed DVTs in her lower leg. Currently on warfarin. Amputation above right knee. Warfarin currently. INR 3.3. Normal white blood count. Normal lactic acid. She was hypotensive here. Was placed in Trendelenburg and started on liter fluid with significant provement. She did not produce any urination however after 1 L started to urinate. Concerning for prerenal. Creatinine 4.99 with a GFR of 9. Concerning for acute kidney injury with last kidney function test in March 2020 that was normal. Urinalysis concerning for infection. Sepsis protocol. Was given cefepime. Patient was started on a second liter of fluid. CO2 9. She is not acidotic. Concerning for kidney disease. IV hydration. Due to her current kidney function nephrology was recommended per hospitalist. Patient was discussed with [facility] who accepts patient. Discussed patient with Dr. Sung Garcia hospitalist who accepts patient. Paatient Was not able to consult with fx artist secondary not established care there. Patient will be transferred. Patient feeling much better at this time. (CELY RAO) Impression Primary Impression: TAWANNA (acute kidney injury) Additional Impression: Hypotension Disposition: 02 XFER SHT-TRM HOSP Condition: Stable Transfer Transfer Reason: Exceeds level of care Time Spoke to Accepting Phy: 13:37 Transfer Progress Notes Patient was discussed with hospitalist Dr. Mitchell who accepts patient. Transfer Time: 13:37 Transfer Facility: [facility] Method of Transfer: EMS (CELY RAO) Departure-Patient Inst. Referrals: ANJEL JORDAN DO (PCP) Primary Care Physician SUNG SAMAYOA (Family) Primary Care Physician ATTENDING PHYSICIAN NOTE: I was physically present as attending physician in the emergency department during the care of this patient. I discussed the case with Ghulam Rao and reviewed the labs with him. I discussed the case with Dr. Santamaria, hospitalist on-call. She declined admission of this patient here due to need for nephrology consultation. I was not otherwise directly involved in the decision making or delivery of care for this patient. (SERAFIN ANTONIO MD) CELY RAO Jun 30, 2021 11:46 SERAFIN ANTONIO MD Jun 30, 2021 20:46
[2021-06-30 12:04] LABS: BASOPHILS # (AUTO) 0.1 10^3/uL (0.0-0.1); BASOPHILS % (AUTO) 1 % (0-10); EOSINOPHILS # (AUTO) 0.1 10^3/uL (0.0-0.3); EOSINOPHILS % (AUTO) 1 % (0-10); HEMATOCRIT 34 % (35-52); HEMOGLOBIN 11.1 g/dL (11.5-16.0); LYMPHOCYTES # (AUTO) 2.2 10^3/uL (1.0-4.0); LYMPHOCYTES % (AUTO) 25 % (12-44); MEAN CORPUSCULAR HEMOGLOBIN 31 pg (25-34); MEAN CORPUSCULAR HGB CONC 33 g/dL (32-36); MEAN CORPUSCULAR VOLUME 95 fL (80-99); MONOCYTES # (AUTO) 0.8 10^3/uL (0.0-1.0); MONOCYTES % (AUTO) 8 % (0-12); NEUTROPHILS # (AUTO) 5.9 10^3/uL (1.8-7.8); NEUTROPHILS % (AUTO) 65 % (42-75); PLATELET COUNT 250 10^3/uL (130-400); WHITE BLOOD COUNT 9.1 10^3/uL (4.3-11.0)
[2021-06-30 12:16] LABS: ALBUMIN 3.5 GM/DL (3.2-4.5); CHLORIDE 109 MMOL/L (98-107); POTASSIUM 4.1 MMOL/L (3.6-5.0); SODIUM 129 MMOL/L (135-145)
[2021-06-30 12:17] LABS: CALCIUM 8.5 MG/DL (8.5-10.1)
[2021-06-30 12:18] LABS: GLUCOSE 123 MG/DL (70-105); TOTAL PROTEIN 6.5 GM/DL (6.4-8.2)
[2021-06-30 12:20] LABS: BILIRUBIN,TOTAL 0.5 MG/DL (0.1-1.0)
[2021-06-30 12:22] LABS: ALKALINE PHOSPHATASE 75 U/L (40-136); CREATININE SERUM 4.99 MG/DL (0.60-1.30); GFR ESTIMATED 9; INR 3.3 (0.8-1.4)
[2021-06-30 12:23] LABS: BUN/CREATININE RATIO 10; CARBON DIOXIDE 9 MMOL/L (21-32)
[2021-06-30 12:25] LABS: ALANINE AMINOTRANSFERASE 8 U/L (0-55)
--- NOTE | 2021-06-30 13:25 | Diagnostic Imaging Report ---
HISTORY: Cough. COMPARISON: 03/06/2019. TECHNIQUE: Frontal view of the chest. FINDINGS: Lung volumes are large. No consolidation is seen. There is no pleural effusion or pneumothorax. The cardiac silhouette is mildly large. Surgical clips are noted in the right axilla. IMPRESSION: 1. Large lung volumes with no acute pulmonary abnormality seen. 2. Mild cardiomegaly. Dictated by: Dictated on workstation # [id number]
[2021-06-30 13:27] LABS: BILIRUBIN,URINE NEGATIVE (NEGATIVE); CLARITY,URINE CLEAR; COLOR,URINE YELLOW; GLUCOSE, URINE (UA) NEGATIVE (NEGATIVE); KETONES,URINE NEGATIVE (NEGATIVE); LEUKOCYTE ESTERASE ,URINE 2+ (NEGATIVE); NITRITE,URINE NEGATIVE (NEGATIVE); PROTEIN,URINE TRACE (NEGATIVE)
[2021-06-30 13:37] LABS: BACTERIA,URINE NEGATIVE /HPF; WBC,URINE 25-50 /HPF
[2021-06-30] MEDS ORDERED: LACTATED RINGERS 1,000 ML IV SCH (14:15)
[2021-06-30 16:14] VITALS: BP 105/74
== END 2021-06-30 16:14 | disposition short-term general hospital (02) ==
LOC: EDUNIT# 11:30 → ER 11:31
DX: N17.9 Acute kidney failure, unspecified (principal); I95.9 Hypotension, unspecified; I10 Essential (primary) hypertension; N39.0 Urinary tract infection, site not specified; Z79.01 Long term (current) use of anticoagulants
CPT/HCPCS: 36415; 51702; 71045; 80053; 81000; 83605; 84484; 85025; 85610; 85730; 87040; 87088; 87636; 93005

== ENCOUNTER 2021-07-15 11:48 | Emergency (ER) | payer MEDICARE, OTHER ==
[~2021-07-15] VITALS: Ht 157 cm; Wt 58.9 kg
--- NOTE | 2021-07-15 12:38 | ED General ---
General Stated Complaint: LOW BP 70/40 - WEAKNESS Source of Information: Patient, Other (daughter in law) Exam Limitations: No Limitations (DANA MILTON MED STUDENT) History of Present Illness Date Seen by Provider: Jul 15, 2021 Time Seen by Provider: 12:23 Initial Comments Patient is a 76 year old female who presents to the ED with daughter in law following a clinic visit at Dr. Mclean's office today and was found to be hypotensive in the 70's/40's, prompting her to be sent to the ED for further evaluation. Patient reports that she was recently discharged from [facility] after a 5 day stay for UTI, acute kidney injury, and hyperkalemia. She reports since being at home she's felt weak, fatigued, less appetite, drinking less, and has been having multiple bouts of diarrhea for the last several days through her colostomy. Denies chest pain, SOB, fevers/chills, dysuria, headaches, and skin breakdown. She reports feeling dizzy and lightheaded as well as nauseous currently. Blood pressure 80's/50's per bedside monitor in SR. Timing/Duration: 5-6 Days Severity: Mild Modifying Factors: improves with Movement Associated Systoms: No Diaphoresis, No Fever/Chills, No Headaches, No Nausea/Vomiting; Weakness (DANA MILTON MED STUDENT) Initial Comments 76yo with generalized weakness, nausea, decreased appetite. Went for post hospitalization clinic visit today - found to have BP 70/40. Sent for further eval. Denies F/C/productive cough. Endorses diarrhea from her ostomy - only 1-2x/day - but she states not eating and drinking really at all. No dysuria, urgency or frequency. No rashes or sores. No sick contacts. Lives alone. Still smokes. 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 ostomy related to previous cervical cancer years ago. (ROBERT SANCHEZ MD) Allergies and Home Medications Allergies Coded Allergies: aspirin (Verified Allergy, Unknown, 12/05/18) codeine (Verified Allergy, Unknown, NO ALLERGY TO MORPHINE, 11/24/08) morphine (Verified Allergy, Unknown, 12/05/18) penicillin G (Verified Allergy, Unknown, 09/09/05) Uncoded Allergies: METALS (Allergy, Mild, RASHES, 05/22/06) Patient Home Medication List Amlodipine Besylate (Amlodipine Besylate) 10 Mg Tablet, 10 MG PO DAILY, (Reported) Entered as Reported by: JULES ALLRED on 10/29/16 0248 Cetirizine HCl (Cetirizine HCl) 10 Mg Tablet, 10 MG PO DAILY, (Reported) Entered as Reported by: ESTRELLITA PETERSON on 02/27/19 1056 Cholecalciferol (Vitamin D3) (Vitamin D3) 1,000 Unit Capsule, 1,000 UNIT PO DAILY, (Reported) Entered as Reported by: ANN MEDRANO on 12/05/18 1302 Clopidogrel Bisulfate (Clopidogrel) 75 Mg Tablet, 75 MG PO DAILY, (Reported) Entered as Reported by: JULES ALLRED on 10/29/16 0248 Diazepam (Diazepam) 2 Mg Tablet, 2 MG PO DAILY PRN for ANXIETY, (Reported) Entered as Reported by: ANN MEDRANO on 12/05/18 1252 Docusate Sodium (Colace) 100 Mg Capsule, 100 MG PO DAILY, (Reported) Entered as Reported by: ANN MEDRANO on 12/05/18 1302 Escitalopram Oxalate (Escitalopram Oxalate) 10 Mg Tablet, 10 MG PO DAILY, (Reported) Entered as Reported by: ANN MEDRANO on 12/05/18 1252 Fluticasone Propionate (Flonase Allergy Relief) 9.9 Ml [place].susp, 1 SPRAY NSEACH DAILY, (Reported) Entered as Reported by: ESTRELLITA PETERSON on 02/27/19 1056 Fluticasone/Umeclidin/Vilanter (Trelegy Ellipta 100-62.5-25) 1 Each Blst.w.dev, 1 EACH IH DAILY, (Reported) Entered as Reported by: ESTRELLITA PETERSON on 02/27/19 1056 Folic Acid (Folic Acid) 1 Mg Tablet, 1 MG PO DAILY, (Reported) Entered as Reported by: JULES ALLRED on 10/29/16 0248 Lisinopril (Lisinopril) 20 Mg Tablet, 20 MG PO DAILY, (Reported) Entered as Reported by: ANN MEDRANO on 12/05/18 1252 Montelukast Sodium (Montelukast Sodium) 10 Mg Tablet, 10 MG PO HS, (Reported) Entered as Reported by: JULES ALLRED on 10/29/16 024 Potassium Chloride (Potassium Chloride) 20 Meq Tab.er.prt, 20 MEQ PO DAILY, (Reported) Entered as Reported by: ESTRELLITA PETERSON on 02/27/19 1056 Simvastatin (Simvastatin) 20 Mg Tablet, 40 MG PO HS, (Reported) Entered as Reported by: JULES ALLRED on 10/29/16 024 Warfarin Sodium (Warfarin Sodium) 1 Mg Tablet, 1 MG PO DAILY, (Reported) Entered as Reported by: ESTRELLITA PETERSON on 02/27/19 1056 Review of Systems Review of Systems Constitutional: No chills, No diaphoresis; dizziness, malaise, weakness EENTM: No ear discharge, No blurred vision, No double vision, No throat pain, No throat swelling Respiratory: No cough, No dyspnea on exertion, No short of breath Cardiovascular: No chest pain, No edema, No palpitations Gastrointestinal: No abdominal pain, No constipation; diarrhea, nausea; No vomiting Genitourinary: No decreased output, No discharge, No dysuria, No frequency Musculoskeletal: No back pain, No joint pain; muscle stiffness Skin: No change in color, No change in hair/nails; rash (yeast right groin) Psychiatric/Neurological: No Symptoms Reported; Denies Anxiety, Denies Depressed Hematologic/Lymphatic: No Symptoms Reported, Easy Bleeding, Easy Bruising (on blood thinners) Immunological/Allergic: no symptoms reported; denies food allergy (DANA LI [employer] STUDENT) All Other Systems Reviewed Negative Unless Noted: Yes (ADNA MILTON [employer] CHAITANYA) Past Volyopg-Tnjshz-Eecmrj Hx Patient Social History Tobacco Use?: No Smoking Status: Never a Smoker Smokeless Tobacco Frequency: Never a User Use of E-Cig and/or Vaping dev: No Substance use?: No Alcohol Use?: No (MO MILTONEngezni STUDENT) Immunizations Up To Date Tetanus Booster (TDap): Unknown Influenza Vaccine Up-to-Date: Yes; Up-to-Date First/Initial COVID19 Vaccinat: YES Second COVID19 Vaccination Melo: YES (DANA MILTON [employer] STUDENT) Seasonal Allergies Seasonal Allergies: Yes (DANA MILTON [employer] CHAITANYA) Past Medical History Surgery/Hospitalization HX: SX: COLOSTOMY, CERVICAL CA, R AKA, ABDOMINAL SX. Surgeries: Yes (ILEOSTOMY,COLOSTOMY, R AKA) Abdominal, Appendectomy, Bowel Surgery, Orthopedic, Vascular Surgery Respiratory: Yes Pneumonia, Chronic Bronchitis, COPD Cardiac: Yes (SEVERE PVD--RIGHT AKA) High Cholesterol, Hypertension, Peripheral Vascular Neurological: No Reproductive Disorders: Yes (CERVICAL CANCER) Genitourinary: Yes Bladder Infection Gastrointestinal: Yes (MULTIPLE SURGERIES FOR PERF. COLON AND COLOSTOMY) Musculoskeletal: Yes (RIGHT AKA FOR SEVERE PVD) Amputee (Right lower extremity amputee) Endocrine: No HEENT: No Loss of Vision: Denies Hearing Impairment: Denies Cancer: Yes (CERVICAL CANCER 2003--S/P RADIATION IMPLANTS, CHEMO AND RADIATION) Cervical, Colon Did You Recieve Any Treatments: Yes What Type of Treatment Did You: Chemotherapy, Radiation Psychosocial: Yes Anxiety, Depression Integumentary: No Blood Disorders: No (DANA MILTON STUDENT) Family Medical History Arthritis 19 MOTHER FH: heart failure G8 SISTER Hypertension 19 FATHER 19 MOTHER No Pertinent Family Hx (DANA MILTON STUDENT) Physical Exam Vital Signs Vital Signs - First Documented 07/15/21 12:28 Temp 36.2 Pulse 90 Resp 16 B/P (MAP) 82/59 (67) Pulse Ox 99 O2 Delivery Room Air (ROBERT SANCHEZ MD) Vital Signs Capillary Refill : (DANA MILTON STUDENT) Height, Weight, BMI Height: 5'2.00" Weight: 126lbs. 9.0oz. 57.770011qm; 23.00 BMI Method:Stated General Appearance: No Apparent Distress, Chronically ill Eyes: Bilateral Eye Normal Inspection, Bilateral Eye PERRL, Bilateral Eye EOMI HEENT: PERRL/EOMI, Pharynx Normal Neck: Full Range of Motion, Non Tender Respiratory: Lungs Clear, Normal Breath Sounds, No Accessory Muscle Use Cardiovascular: Regular Rate, Rhythm, No Edema, Normal Peripheral Pulses, Other (Hypotension 80's/50's per bedside monitor) Gastrointestinal: Normal Bowel Sounds, Soft, Other (colostomy present) Rectal: Deferred Back: Normal Inspection, No Vertebral Tenderness Extremity: Normal Capillary Refill, No Calf Tenderness, No Pedal Edema, Other (Right lower leg amputated at the knee) Neurologic/Psychiatric: Alert, Oriented x3, No Motor/Sensory Deficits, Normal Mood/Affect Skin: Warm/Dry, Ecchymosis (scattered), Rash (right groin redness and minimally excoriated) Lymphatic: No Adenopathy (Head and Neck) (DANA MILTON MED STUDENT) General Appearance: No Apparent Distress, WD/WN HEENT: Other (dry oral mucosa) Neck: Normal Inspection Respiratory: Lungs Clear, Normal Breath Sounds, No Accessory Muscle Use Cardiovascular: Regular Rate, Rhythm, Normal Peripheral Pulses Gastrointestinal: Non Tender, Soft, Other (colostomy present) Extremity: Normal Capillary Refill, Other (Right lower leg amputated at the knee) Neurologic/Psychiatric: Alert, Oriented x3, No Motor/Sensory Deficits, Normal Mood/Affect Skin: Normal Color, Warm/Dry, Other (good skin turgor) (ROBERT SANCHEZ MD) Focused Exam Lactate Level 07/15/21 13:29: Lactic Acid Level 1.28 (ROBERT SANCHEZ MD) Lactic Acid Level Laboratory Tests Test 07/15/21 13:29 Lactic Acid Level 1.28 MMOL/L (0.50-2.00) (ROBERT SANCHEZ MD) Progress/Results/Core Measures Suspected Sepsis SIRS Temperature: Pulse: Respiratory Rate: Blood Pressure / Mean: (DANA MILTON MED STUDENT) Results/Orders Lab Results Laboratory Tests Test 07/15/21 12:31 07/15/21 12:39 07/15/21 13:29 07/15/21 14:31 Range/Units White Blood Count 12.0 H 4.3-11.0 10^3/uL Red Blood Count 3.56 L 3.80-5.11 10^6/uL Hemoglobin 11.0 L 11.5-16.0 g/dL Hematocrit 34 L 35-52 % Mean Corpuscular Volume 96 80-99 fL Mean Corpuscular Hemoglobin 31 25-34 pg Mean Corpuscular Hemoglobin Concent 32 32-36 g/dL Red Cell Distribution Width 13.2 10.0-14.5 % Platelet Count 441 H 130-400 10^3/uL Mean Platelet Volume 9.6 9.0-12.2 fL Immature Granulocyte % (Auto) 1 % Neutrophils (%) (Auto) 67 42-75 % Lymphocytes (%) (Auto) 24 12-44 % Monocytes (%) (Auto) 6 0-12 % Eosinophils (%) (Auto) 1 0-10 % Basophils (%) (Auto) 1 0-10 % Neutrophils # (Auto) 8.0 H 1.8-7.8 10^3/uL Lymphocytes # (Auto) 2.9 1.0-4.0 10^3/uL Monocytes # (Auto) 0.7 0.0-1.0 10^3/uL Eosinophils # (Auto) 0.1 0.0-0.3 10^3/uL Basophils # (Auto) 0.1 0.0-0.1 10^3/uL Immature Granulocyte # (Auto) 0.1 0.0-0.1 10^3/uL Prothrombin Time 40.4 H 12.2-14.7 SEC INR Comment 4.1 H 0.8-1.4 Activated Partial Thromboplast Time 73 H 24-35 SEC Sodium Level 133 L 135-145 MMOL/L Potassium Level 3.9 3.6-5.0 MMOL/L Chloride Level 106 98-107 MMOL/L Carbon Dioxide Level 13 L 21-32 MMOL/L Anion Gap 14 5-14 MMOL/L Blood Urea Nitrogen 26 H 7-18 MG/DL Creatinine 4.96 H 0.60-1.30 MG/DL Estimat Glomerular Filtration Rate 9 BUN/Creatinine Ratio 5 Glucose Level 96 70-105 MG/DL Calcium Level 8.9 8.5-10.1 MG/DL Corrected Calcium 9.4 8.5-10.1 MG/DL Phosphorus Level 5.2 H 2.3-4.7 MG/DL Magnesium Level < 0.6 *L 1.6-2.4 MG/DL Total Bilirubin 0.5 0.1-1.0 MG/DL Aspartate Amino Transf (AST/SGOT) 17 5-34 U/L Alanine Aminotransferase (ALT/SGPT) 8 0-55 U/L Alkaline Phosphatase 97 40-136 U/L Total Protein 6.5 6.4-8.2 GM/DL Albumin 3.4 3.2-4.5 GM/DL Procalcitonin 0.18 H <0.10 NG/ML Glucometer 89 70-110 MG/DL Lactic Acid Level 1.28 0.50-2.00 MMOL/L Urine Color YELLOW Urine Clarity CLOUDY Urine pH 6.0 5-9 Urine Specific [place] >=1.030 1.016-1.022 Urine Protein 2+ H NEGATIVE Urine Glucose (UA) NEGATIVE NEGATIVE Urine Ketones TRACE H NEGATIVE Urine Nitrite POSITIVE H NEGATIVE Urine Bilirubin 1+ H NEGATIVE Urine Urobilinogen 0.2 < = 1.0 MG/DL Urine Leukocyte Esterase 2+ H NEGATIVE Urine RBC (Auto) 3+ H NEGATIVE Urine RBC TNTC H /HPF Urine WBC 10-25 H /HPF Urine Squamous Epithelial Cells 2-5 /HPF Urine Renal Epithelial Cells 2-5 /HPF Urine Crystals NONE /LPF Urine Bacteria LARGE H /HPF Urine Casts PRESENT /LPF Urine Hyaline Casts 10-25 H /LPF Urine Granular Casts 2-5 H /LPF Urine Mucus NEGATIVE /LPF Urine Culture Indicated CULTURE PENDING Test 07/15/21 15:12 Range/Units Influenza Type A (RT-PCR) Not Detected Not Detecte Influenza Type B (RT-PCR) Not Detected Not Detecte SARS-CoV-2 RNA (RT-PCR) Not Detected Not Detecte (ROBERT SANCHEZ MD) My Orders Orders - ROBERT SANCHEZ MD Cbc With Automated Diff (07/15/21 12:33) Comprehensive Metabolic Panel (07/15/21 12:33) Blood Culture (07/15/21 12:33) Sputum Culture (07/15/21 12:33) Urinalysis (07/15/21 12:33) Urine Culture (07/15/21 12:33) Protime With Inr (07/15/21 12:33) Partial Thromboplastin Time (07/15/21 12:33) Chest 1 View, Ap/Pa Only (07/15/21 12:33) Ed Iv/Invasive Line Start (07/15/21 12:33) Ed Iv/Invasive Line Start (07/15/21 12:33) Vital Signs Adult Sepsis Patie Q15M (07/15/21 12:33) O2 (07/15/21 12:33) Remove Rings In Anticipation O (07/15/21 12:33) Lactic Acid Analyzer (07/15/21 12:33) Ekg Tracing (07/15/21 12:33) Ns Iv 1000 Ml (Sodium Chloride 0.9%) (07/15/21 12:45) Magnesium (07/15/21 12:33) Phosphorus (07/15/21 12:33) Accucheck Stat ONCE (07/15/21 12:35) Magnesium 2 Gm/50 Ml Ivpb (Magnesium 2 G (07/15/21 14:15) Ns Iv 1000 Ml (Sodium Chloride 0.9%) (07/15/21 14:15) Chest 1 View, Ap/Pa Only (07/15/21 14:33) Magnesium 1 Gm/100 Ml Ivpb (Magnesium Juan (07/15/21 14:59) Covid 19 Inhouse Test (07/15/21 15:08) Influenza A And B By Pcr (07/15/21 15:08) Isolation Central Supply Req (07/15/21 15:08) Procalcitonin (Pct) (07/15/21 15:10) Magnesium 1 Gm/100 Ml Ivpb (Magnesium Juan (07/15/21 15:15) General/Regular (07/15/21 Dinner) (ROBERT SANCHEZ MD) Vital Signs/I&O 07/15/21 12:28 Temp 36.2 Pulse 90 Resp 16 B/P (MAP) 82/59 (67) Pulse Ox 99 O2 Delivery Room Air (ROBERT SANCHEZ MD) Vital Signs/I&O Capillary Refill : (DANA MILTON MED STUDENT) Progress Note : Time: 14:56 Progress Note Case discussed with Dr Huerta. Accepts to TCU at [facility]. Patient has been given 2 L NS with SBP at 101 currently. 2gm Mag ordered. CXR does show some opacification at the right middle lobe (new). I will call back and have direct c all notify Dr Huerta and see if he would like Abx on board. ALctic is negative. Adding a procalcitonin. She has no complaints related to pneumonia. (ROBERT SANCHEZ MD) ECG Initial ECG Impression Date: Jul 15, 2021 Initial ECG Impression Time: 12:39 Initial ECG Rate: 81 Initial ECG Rhythm: Normal Sinus Initial ECG Intervals NJ 174 QRS 114 QTc 450 No ectopy, normal axis, no ST segment elevation or depression. Q waves anteroseptal (ROBERT SANCHEZ MD) Diagnostic Imaging Diagonstic Imaging: Xray Plain Films/CT/US/NM/MRI: chest Comments [facility]. [place], [place] NAME: SAMANTHA CORREIA [facility] REC#: [id number] PT STATUS: REG ER : 1945 PHYSICIAN: ROBERT SANCHEZ MD ADMIT DATE: 07/15/21/ER Signed Date of Exam:07/15/21 CHEST 1 VIEW, AP/PA ONLY EXAMINATION: Chest radiograph, portable AP view. DATE: 07/15/2021 2:42 PM INDICATION: 76-year-old female, weakness. Nausea, vomiting, diarrhea. COMPARISON: July 15, 2021. FINDINGS: Heart size and mediastinal contours are unchanged. There is unchanged right mid and lower lung zone opacification. There are surgical clips projecting in the right axillary region. There is no identified pneumothorax. There is hazy attenuation in the region of the left lower lung zone which is also unchanged. There are carotid vascular calcifications, bilaterally. IMPRESSION: Right mid and lower lung zone opacification as well as opacification in the left lung base with unchanged appearance since very recent comparison study. This may reflect pleural effusions, infiltrate and/or atelectasis. Findings on the right are new since June 30, 2021. Dictated by: Dictated on workstation # [id number] Dict: 07/15/21 1443 Trans: 07/15/21 1517 [facility] [id number] Interpreted by: SAMANTHA YEE MD Electronically signed by: SAMANTHA YEE MD 07/15/21 1517 (ROBERT SANCHEZ MD) Critical Care Note Critical Care Start Time: 12:23 Stop Time: 14:50 Total Time (minutes) 1 hour critical care time in the evaluation and management of this 76-year-old with hypertension. Time includes initial evaluation of the patient with fluid resuscitation, serial re-evaluations; review and interpretation of laboratory studies/imaging, supplementation of magnesium, time also includes review of the medical record, discussion with accepting provider at [facility]. Discussion with family (ROBERT SANCHEZ MD) Departure Impression Primary Impression: TAWANNA (acute kidney injury) Additional Impressions: Hypomagnesemia Hypotension Qualified Codes: I95.9 - Hypotension, unspecified Urinary tract infection Qualified Codes: N39.0 - Urinary tract infection, site not specified; R31.9 - Hematuria, unspecified Disposition: 02 XFER SHT-TRM HOSP Condition: Improved Transfer Transfer Reason: Exceeds level of care Time Spoke to Accepting Phy: 14:13 Transfer Facility: [facility] Method of Transfer: EMS (ROBERT SANCHEZ MD) Departure-Patient Inst. Referrals: ANJEL MCLEAN DO (PCP/Family) Primary Care Physician DANA MILTON MED STUDENT Jul 15, 2021 12:38 ROBERT SANCHEZ MD Jul 15, 2021 14:55
[2021-07-15] MEDS ORDERED: NS IV 1000 ML 1,000 ML IV SCH ×2 (12:45→14:15)
[2021-07-15 12:53] LABS: BASOPHILS # (AUTO) 0.1 10^3/uL (0.0-0.1); BASOPHILS % (AUTO) 1 % (0-10); EOSINOPHILS # (AUTO) 0.1 10^3/uL (0.0-0.3); EOSINOPHILS % (AUTO) 1 % (0-10); HEMATOCRIT 34 % (35-52); LYMPHOCYTES # (AUTO) 2.9 10^3/uL (1.0-4.0); LYMPHOCYTES % (AUTO) 24 % (12-44); MEAN CORPUSCULAR HEMOGLOBIN 31 pg (25-34); MEAN CORPUSCULAR HGB CONC 32 g/dL (32-36); MEAN CORPUSCULAR VOLUME 96 fL (80-99); MEAN PLATELET VOLUME 9.6 fL (9.0-12.2); MONOCYTES # (AUTO) 0.7 10^3/uL (0.0-1.0); MONOCYTES % (AUTO) 6 % (0-12); NEUTROPHILS % (AUTO) 67 % (42-75); PLATELET COUNT 441 10^3/uL (130-400)
[2021-07-15 12:59] LABS: ALBUMIN 3.4 GM/DL (3.2-4.5); CHLORIDE 106 MMOL/L (98-107); POTASSIUM 3.9 MMOL/L (3.6-5.0); SODIUM 133 MMOL/L (135-145)
[2021-07-15 13:00] LABS: CALCIUM 8.9 MG/DL (8.5-10.1)
[2021-07-15 13:01] LABS: GLUCOSE 96 MG/DL (70-105)
[2021-07-15 13:02] LABS: TOTAL PROTEIN 6.5 GM/DL (6.4-8.2)
[2021-07-15 13:03] LABS: BILIRUBIN,TOTAL 0.5 MG/DL (0.1-1.0); CARBON DIOXIDE 13 MMOL/L (21-32)
[2021-07-15 13:05] LABS: ALKALINE PHOSPHATASE 97 U/L (40-136); CREATININE SERUM 4.96 MG/DL (0.60-1.30); GFR ESTIMATED 9; PHOSPHORUS 5.2 MG/DL (2.3-4.7)
[2021-07-15 13:06] LABS: BUN/CREATININE RATIO 5; INR 4.1 (0.8-1.4); PROTHROMBIN TIME PATIENT 40.4 SEC (12.2-14.7)
[2021-07-15 13:08] LABS: ALANINE AMINOTRANSFERASE 8 U/L (0-55)
[2021-07-15 13:49] LABS: MAGNESIUM < 0.6 MG/DL (1.6-2.4)
[2021-07-15] MEDS ORDERED: MAGNESIUM 2 GM/50 ML IVPB 50 ML IV ONE (14:15)
--- NOTE | 2021-07-15 14:28 | Diagnostic Imaging Report ---
INDICATION: Weakness. Nausea, vomiting, and diarrhea. COMPARISON: 06/30/2021 FINDINGS: Single frontal radiographic view of the chest was obtained and demonstrates new bandlike area of opacity in the right lower lung field. This does partially obscure the right heart border. The left lung remains relatively clear. There is no large effusion or pneumothorax on the left. Cardiac silhouette and pulmonary vasculature are within normal limits. Osseous structures show no acute abnormalities. IMPRESSION: 1. New bandlike opacity within the right lower lung. Findings could be on the basis of right middle lobe consolidation or fluid within the right minor fissure. Correlation with a lateral view may be of benefit. Dictated by: Dictated on workstation # [id number]
[2021-07-15 14:37] LABS: CLARITY,URINE CLOUDY; COLOR,URINE YELLOW; GLUCOSE, URINE (UA) NEGATIVE (NEGATIVE); KETONES,URINE TRACE (NEGATIVE); LEUKOCYTE ESTERASE ,URINE 2+ (NEGATIVE); NITRITE,URINE POSITIVE (NEGATIVE); PROTEIN,URINE 2+ (NEGATIVE)
[2021-07-15 14:45] LABS: BILIRUBIN,URINE 1+ (NEGATIVE)
[2021-07-15 14:50] LABS: BACTERIA,URINE LARGE /HPF; RBC,URINE TNTC /HPF
--- NOTE | 2021-07-15 14:56 | Diagnostic Imaging Report ---
EXAMINATION: Chest radiograph, portable AP view. DATE: 07/15/2021 2:42 PM INDICATION: 76-year-old female, weakness. Nausea, vomiting, diarrhea. COMPARISON: July 15, 2021. FINDINGS: Heart size and mediastinal contours are unchanged. There is unchanged right mid and lower lung zone opacification. There are surgical clips projecting in the right axillary region. There is no identified pneumothorax. There is hazy attenuation in the region of the left lower lung zone which is also unchanged. There are carotid vascular calcifications, bilaterally. IMPRESSION: Right mid and lower lung zone opacification as well as opacification in the left lung base with unchanged appearance since very recent comparison study. This may reflect pleural effusions, infiltrate and/or atelectasis. Findings on the right are new since June 30, 2021. Dictated by: Dictated on workstation # [id number]
[2021-07-15] MEDS ORDERED: MAGNESIUM 1 GM/100 ML IVPB 100 ML IV ONE (14:59)
[2021-07-15] MEDS: MAGNESIUM 1 GM/100 ML IVPB 100 ML IV SCH ×2 (15:09→16:11)
[2021-07-15] MEDS ORDERED: CEFEPIME INJECTION 1,000 MG in NS (IVPB) 50 ML IV ONE (16:30)
[2021-07-15 18:17] VITALS: BP 104/63
== END 2021-07-15 18:17 | disposition short-term general hospital (02) ==
LOC: EDUNIT# 11:48 → ER 11:49
DX: I95.9 Hypotension, unspecified (principal); N17.9 Acute kidney failure, unspecified; E83.42 Hypomagnesemia; N39.0 Urinary tract infection, site not specified; I10 Essential (primary) hypertension; M79.81 Nontraumatic hematoma of soft tissue; R21 Rash and other nonspecific skin eruption; F17.200 Nicotine dependence, unspecified, uncomplicated; Z89.611 Acquired absence of right leg above knee; Z20.822 Contact with and (suspected) exposure to COVID-19; Z93.3 Colostomy status
CPT/HCPCS: 36415; 51702; 71045; 80053; 81000; 82947; 83605; 83735; 84100; 84145; 85025; 85610; 85730; 87040; 87077; 87088; 87184; 87186; 87636; 93005

== ENCOUNTER 2021-08-09 10:53 | Emergency (ER) | payer MEDICARE, OTHER ==
[~2021-08-09] VITALS: Ht 157 cm; Wt 54.4 kg
[2021-08-09] MEDS ORDERED: LACTATED RINGERS 1,000 ML IV ONE (11:19)
[2021-08-09] MEDS ORDERED: ONDANSETRON 4 MG/2 ML (SDV) Z0FRAN ONE (11:19)
[2021-08-09] MEDS ORDERED: LACTATED RINGERS 1,000 ML IV SCH ×3 (11:30→14:00)
--- NOTE | 2021-08-09 11:30 | ED General ---
General Chief Complaint: General Problems/Pain Stated Complaint: LIGHT HEADED Nursing Triage Note: PT TO RM 5 BY WHEELCHAIR WITH COMPLAINT OF NAUSEA, DRY HEAVING, NO URINE OUTPUT AND HYPOTENSION. WAS SENT BY [facility] Source of Information: Patient Exam Limitations: No Limitations History of Present Illness Date Seen by Provider: Aug 09, 2021 Time Seen by Provider: 11:26 Initial Comments To ER by private vehicle from [facility] with reports of hypotension, nausea, diarrhea with her colostomy output being much more liquid than usual. She just finished antibiotics last week for E. coli bacteremia. History of chronic kidney disease and states that the last 2 times that she has been here she has required transfer to [facility] in [place]. She is not on dialysis and has not had to have dialysis. She denies fevers or chills. 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 She was supposed to follow-up with [facility] today for repeat INR in preparation for transition over to Eliquis from warfarin but her symptoms warranted transfer to the emergency room. Timing/Duration: 1-2 Days Severity: Moderate Associated Systoms: Nausea/Vomiting, Weakness Allergies and Home Medications Allergies Coded Allergies: aspirin (Verified Allergy, Unknown, 12/05/18) codeine (Verified Allergy, Unknown, NO ALLERGY TO MORPHINE, 11/24/08) morphine (Verified Allergy, Unknown, 12/05/18) penicillin G (Verified Allergy, Unknown, 09/09/05) Uncoded Allergies: METALS (Allergy, Mild, RASHES, 05/22/06) Patient Home Medication List Home Medication List Reviewed: Yes Amlodipine Besylate (Amlodipine Besylate) 10 Mg Tablet, 10 MG PO DAILY, (Reported) Entered as Reported by: JULES ALLRED on 10/29/16 0248 Cetirizine HCl (Cetirizine HCl) 10 Mg Tablet, 10 MG PO DAILY, (Reported) Entered as Reported by: ESTRELLITA PETERSON on 02/27/19 1056 Cholecalciferol (Vitamin D3) (Vitamin D3) 1,000 Unit Capsule, 1,000 UNIT PO DAILY, (Reported) Entered as Reported by: ANN MEDRANO on 12/05/18 1302 Clopidogrel Bisulfate (Clopidogrel) 75 Mg Tablet, 75 MG PO DAILY, (Reported) Entered as Reported by: JULES ALLRED on 10/29/16 0248 Diazepam (Diazepam) 2 Mg Tablet, 2 MG PO DAILY PRN for ANXIETY, (Reported) Entered as Reported by: ANN MEDRANO on 12/05/18 1252 Docusate Sodium (Colace) 100 Mg Capsule, 100 MG PO DAILY, (Reported) Entered as Reported by: ANN MEDRANO on 12/05/18 1302 Escitalopram Oxalate (Escitalopram Oxalate) 10 Mg Tablet, 10 MG PO DAILY, (Reported) Entered as Reported by: ANN MEDRANO on 12/05/18 1252 Fluticasone Propionate (Flonase Allergy Relief) 9.9 Ml [place].susp, 1 SPRAY NSEACH DAILY, (Reported) Entered as Reported by: ESTRELLITA PETERSON on 02/27/19 1056 Fluticasone/Umeclidin/Vilanter (Trelegy Ellipta 100-62.5-25) 1 Each Blst.w.dev, 1 EACH IH DAILY, (Reported) Entered as Reported by: ESTRELLITA PETERSON on 02/27/19 1056 Folic Acid (Folic Acid) 1 Mg Tablet, 1 MG PO DAILY, (Reported) Entered as Reported by: JULES ALLRED on 10/29/16 0248 Lisinopril (Lisinopril) 20 Mg Tablet, 20 MG PO DAILY, (Reported) Entered as Reported by: ANN MEDRANO on 12/05/18 1252 Montelukast Sodium (Montelukast Sodium) 10 Mg Tablet, 10 MG PO HS, (Reported) Entered as Reported by: JULES ALLRED on 10/29/16 0248 Potassium Chloride (Potassium Chloride) 20 Meq Tab.er.prt, 20 MEQ PO DAILY, (Reported) Entered as Reported by: ESTRELLITA PETERSON on 02/27/19 1056 Simvastatin (Simvastatin) 20 Mg Tablet, 40 MG PO HS, (Reported) Entered as Reported by: JULES ALLRED on 10/29/16 0248 Warfarin Sodium (Warfarin Sodium) 1 Mg Tablet, 1 MG PO DAILY, (Reported) Entered as Reported by: ESTRELLITA PETERSON on 02/27/19 1056 Review of Systems Review of Systems Constitutional: see HPI, malaise, weakness EENTM: see HPI Respiratory: no symptoms reported Cardiovascular: no symptoms reported Gastrointestinal: diarrhea, nausea, vomiting Genitourinary: see HPI, other (No urine output for 24 hours) Musculoskeletal: no symptoms reported Skin: no symptoms reported Psychiatric/Neurological: No Symptoms Reported Hematologic/Lymphatic: No Symptoms Reported Immunological/Allergic: no symptoms reported Past Kpuaiet-Klgils-Txqqhz Hx Patient Social History Tobacco Use?: Yes Tobacco type used: Cigarettes Smoking Status: Current Everyday Smoker Use of E-Cig and/or Vaping dev: No Substance use?: No Alcohol Use?: No Pt feels they are or have been: No Immunizations Up To Date Tetanus Booster (TDap): Unknown First/Initial COVID19 Vaccinat: YES Second COVID19 Vaccination Melo: YES Third COVID19 Vaccination Date: YES Seasonal Allergies Seasonal Allergies: Yes Past Medical History Surgery/Hospitalization HX: SX: COLOSTOMY, CERVICAL CA, R AKA, ABDOMINAL SX. Surgeries: Yes (ILEOSTOMY,COLOSTOMY, R AKA) Abdominal, Appendectomy, Bowel Surgery, Orthopedic, Vascular Surgery Respiratory: Yes Pneumonia, Chronic Bronchitis, COPD Cardiac: Yes (SEVERE PVD--RIGHT AKA) High Cholesterol, Hypertension, Peripheral Vascular Neurological: No Reproductive Disorders: Yes (CERVICAL CANCER) Genitourinary: Yes Bladder Infection Gastrointestinal: Yes (MULTIPLE SURGERIES FOR PERF. COLON AND COLOSTOMY) Musculoskeletal: Yes (RIGHT AKA FOR SEVERE PVD) Amputee Endocrine: No HEENT: No Loss of Vision: Denies Hearing Impairment: Denies Cancer: Yes (CERVICAL CANCER 2003--S/P RADIATION IMPLANTS, CHEMO AND RADIATION) Cervical, Colon Did You Recieve Any Treatments: Yes What Type of Treatment Did You: Chemotherapy, Radiation Psychosocial: Yes Anxiety, Depression Integumentary: No Blood Disorders: No Family Medical History Arthritis 19 MOTHER FH: heart failure G8 SISTER Hypertension 19 FATHER 19 MOTHER No Pertinent Family Hx Physical Exam Vital Signs Vital Signs - First Documented 08/09/21 11:04 Temp 36.7 Pulse 92 Resp 22 B/P (MAP) 76/33 (47) Pulse Ox 98 O2 Delivery Room Air Capillary Refill : Less Than 3 Seconds Height, Weight, BMI Height: 5'2.00" Weight: 126lbs. 9.0oz. 57.178144td; 22.00 BMI Method:Stated General Appearance: No Apparent Distress, WD/WN, Chronically ill, Other (Ashen color, blood pressure 75/36. Heart rate 75. Oxygen 98% room air. Alert and oriented.) Eyes: Bilateral Eye Normal Inspection, Bilateral Eye PERRL HEENT: PERRL/EOMI, TMs Normal Neck: Full Range of Motion, Normal Inspection Respiratory: No Accessory Muscle Use, No Respiratory Distress Cardiovascular: Regular Rate, Rhythm, Normal Peripheral Pulses Gastrointestinal: Normal Bowel Sounds, Non Tender, Soft Extremity: Normal Capillary Refill, Other (Right-sided vzhda-pex-yhyo amputation) Neurologic/Psychiatric: Alert, Oriented x3 Skin: Normal Color, Warm/Dry Focused Exam Lactate Level 08/09/21 11:16: Lactic Acid Level Laboratory Tests Test 08/09/21 11:16 Progress/Results/Core Measures Suspected Sepsis SIRS Temperature: Pulse: 92 Respiratory Rate: 22 Laboratory Tests 08/09/21 11:16: White Blood Count 13.7H Blood Pressure 76 /33 Mean: 47 08/09/21 11:16: Laboratory Tests 08/09/21 11:16: Creatinine 6.25H, INR Comment 1.6H, Platelet Count 312, Total Bilirubin 0.5 Results/Orders Lab Results Laboratory Tests Test 08/09/21 11:16 Range/Units White Blood Count 13.7 H 4.3-11.0 10^3/uL Red Blood Count 3.69 L 3.80-5.11 10^6/uL Hemoglobin 11.9 11.5-16.0 g/dL Hematocrit 36 35-52 % Mean Corpuscular Volume 97 80-99 fL Mean Corpuscular Hemoglobin 32 25-34 pg Mean Corpuscular Hemoglobin Concent 33 32-36 g/dL Red Cell Distribution Width 13.9 10.0-14.5 % Platelet Count 312 130-400 10^3/uL Mean Platelet Volume 10.3 9.0-12.2 fL Immature Granulocyte % (Auto) 0 % Neutrophils (%) (Auto) 54 42-75 % Lymphocytes (%) (Auto) 37 12-44 % Monocytes (%) (Auto) 6 0-12 % Eosinophils (%) (Auto) 2 0-10 % Basophils (%) (Auto) 1 0-10 % Neutrophils # (Auto) 7.4 1.8-7.8 10^3/uL Lymphocytes # (Auto) 5.1 H 1.0-4.0 10^3/uL Monocytes # (Auto) 0.8 0.0-1.0 10^3/uL Eosinophils # (Auto) 0.3 0.0-0.3 10^3/uL Basophils # (Auto) 0.1 0.0-0.1 10^3/uL Immature Granulocyte # (Auto) 0.1 0.0-0.1 10^3/uL Prothrombin Time 19.8 H 12.2-14.7 SEC INR Comment 1.6 H 0.8-1.4 Activated Partial Thromboplast Time 35 24-35 SEC Sodium Level 131 L 135-145 MMOL/L Potassium Level 3.7 3.6-5.0 MMOL/L Chloride Level 99 98-107 MMOL/L Carbon Dioxide Level 11 L 21-32 MMOL/L Anion Gap 21 H 5-14 MMOL/L Blood Urea Nitrogen 30 H 7-18 MG/DL Creatinine 6.25 H 0.60-1.30 MG/DL Estimat Glomerular Filtration Rate 7 BUN/Creatinine Ratio 5 Glucose Level 106 H 70-105 MG/DL Calcium Level 8.9 8.5-10.1 MG/DL Corrected Calcium 9.5 8.5-10.1 MG/DL Total Bilirubin 0.5 0.1-1.0 MG/DL Aspartate Amino Transf (AST/SGOT) 19 5-34 U/L Alanine Aminotransferase (ALT/SGPT) 13 0-55 U/L Alkaline Phosphatase 120 40-136 U/L Total Protein 6.9 6.4-8.2 GM/DL Albumin 3.3 3.2-4.5 GM/DL My Orders Orders - VIDHYA HERNANDEZ APRN Lactated Ringers (Lr 1000 Ml Iv Solution (08/09/21 11:30) Cbc With Automated Diff (08/09/21 11:23) Comprehensive Metabolic Panel (08/09/21 11:23) Blood Culture (08/09/21 11:23) Sputum Culture (08/09/21 11:23) Urinalysis (08/09/21 11:23) Urine Culture (08/09/21 11:23) Protime With Inr (08/09/21 11:23) Partial Thromboplastin Time (08/09/21 11:23) Chest 1 View, Ap/Pa Only (08/09/21 11:23) Ed Iv/Invasive Line Start (08/09/21 11:23) Ed Iv/Invasive Line Start (08/09/21 11:23) Vital Signs Adult Sepsis Patie Q15M (08/09/21 11:23) O2 (08/09/21 11:23) Remove Rings In Anticipation O (08/09/21 11:23) Lactic Acid Analyzer (08/09/21 11:23) Magnesium (08/09/21 11:58) C Difficile Ag + Toxin A/B. (08/09/21 11:58) Lactated Ringers (Lr 1000 Ml Iv Solution (08/09/21 12:00) Medications Given in ED Current Medications Medications Dose Ordered Sig/Christiano Route Start Time Stop Time Status Last Admin Dose Admin Lactated Ringer's 1,000 ml @ ud STK-MED ONCE IV 08/09/21 11:19 08/09/21 11:22 DC 08/09/21 11:25 1,000 MLS/HR Ondansetron HCl 4 mg STK-MED ONCE .ROUTE 08/09/21 11:19 08/09/21 11:22 DC 08/09/21 11:24 8 MG Vital Signs/I&O 08/09/21 11:04 Temp 36.7 Pulse 92 Resp 22 B/P (MAP) 76/33 (47) Pulse Ox 98 O2 Delivery Room Air Capillary Refill : Less Than 3 Seconds Blood Pressure Mean: 47 Departure Communication (Admissions) 1204-Will transfer to [place] given the absence of nephrology services or dialysis capabilities here. Current blood pressure up to 98/50 after 1 liter IV fluids. Impression Primary Impression: TAWANNA (acute kidney injury) Additional Impressions: PVD (peripheral vascular disease) Hypotension Disposition: XFER SHT-TRM HOSP Condition: Stable Transfer Transfer Reason: Exceeds level of care Time Spoke to Accepting Phy: 12:03 Departure-Patient Inst. Referrals: ANDREW JUÁREZ DO (PCP/Family) Primary Care Physician VIDHYA HERNANDEZ SENIOR H[employer] RESOURCES REPRESENTATIVE Aug 09, 2021 11:29
[2021-08-09 11:33] LABS: BASOPHILS # (AUTO) 0.1 10^3/uL (0.0-0.1); BASOPHILS % (AUTO) 1 % (0-10); EOSINOPHILS # (AUTO) 0.3 10^3/uL (0.0-0.3); EOSINOPHILS % (AUTO) 2 % (0-10); HEMATOCRIT 36 % (35-52); HEMOGLOBIN 11.9 g/dL (11.5-16.0); LYMPHOCYTES # (AUTO) 5.1 10^3/uL (1.0-4.0); LYMPHOCYTES % (AUTO) 37 % (12-44); MEAN CORPUSCULAR HEMOGLOBIN 32 pg (25-34); MEAN CORPUSCULAR HGB CONC 33 g/dL (32-36); MEAN CORPUSCULAR VOLUME 97 fL (80-99); MEAN PLATELET VOLUME 10.3 fL (9.0-12.2); MONOCYTES # (AUTO) 0.8 10^3/uL (0.0-1.0); MONOCYTES % (AUTO) 6 % (0-12); NEUTROPHILS # (AUTO) 7.4 10^3/uL (1.8-7.8); NEUTROPHILS % (AUTO) 54 % (42-75); PLATELET COUNT 312 10^3/uL (130-400); WHITE BLOOD COUNT 13.7 10^3/uL (4.3-11.0)
[2021-08-09 11:38] LABS: INR 1.6 (0.8-1.4); PROTHROMBIN TIME PATIENT 19.8 SEC (12.2-14.7)
[2021-08-09 11:39] LABS: ALBUMIN 3.3 GM/DL (3.2-4.5); POTASSIUM 3.7 MMOL/L (3.6-5.0)
[2021-08-09 11:40] LABS: CALCIUM 8.9 MG/DL (8.5-10.1)
[2021-08-09 11:41] LABS: TOTAL PROTEIN 6.9 GM/DL (6.4-8.2)
[2021-08-09 11:43] LABS: BILIRUBIN,TOTAL 0.5 MG/DL (0.1-1.0)
[2021-08-09 11:45] LABS: CREATININE SERUM 6.25 MG/DL (0.60-1.30)
--- NOTE | 2021-08-09 12:00 | Diagnostic Imaging Report ---
INDICATION: Nausea. EXAMINATION: Portable chest at 11:28 a.m. FINDINGS: Heart size and pulmonary vascularity are normal. Lungs are clear. There are no effusions or pneumothoraces. IMPRESSION: Interval clearing of the previously seen infiltrate/atelectasis at the right lung base compared to 07/15/2021. No acute abnormality seen. Dictated by: Dictated on workstation # [id number]
[2021-08-09] MEDS: MAGNESIUM 1 GM/100 ML IVPB 100 ML IV SCH ×2 (13:10→14:12)
[2021-08-09 15:31] VITALS: BP 101/57
[2021-08-09 15:34] LABS: CLARITY,URINE CLOUDY; COLOR,URINE YELLOW; GLUCOSE, URINE (UA) NEGATIVE (NEGATIVE); KETONES,URINE NEGATIVE (NEGATIVE); LEUKOCYTE ESTERASE ,URINE 3+ (NEGATIVE); NITRITE,URINE NEGATIVE (NEGATIVE); PROTEIN,URINE 1+ (NEGATIVE)
[2021-08-09 15:39] LABS: BILIRUBIN,URINE 1+ (NEGATIVE)
[2021-08-09 15:42] LABS: BACTERIA,URINE LARGE /HPF; WBC,URINE 25-50 /HPF
== END 2021-08-09 15:31 | disposition short-term general hospital (02) ==
LOC: EDUNIT# 10:53 → ER 10:55
DX: N17.9 Acute kidney failure, unspecified (principal); I73.9 Peripheral vascular disease, unspecified; I95.9 Hypotension, unspecified; F17.210 Nicotine dependence, cigarettes, uncomplicated; Z79.01 Long term (current) use of anticoagulants
CPT/HCPCS: 36415; 71045; 80053; 81000; 83605; 83735; 85025; 85610; 85730; 87040; 87077; 87088; 87186; 87324; 87449; 93005